=== PATIENT | male | born 1975 | race Caucasian/White ===

== ENCOUNTER 2020-06-12 11:52 | Outpatient (REF) | payer MEDICARE, MEDICAID, SELFPAY ==
[2020-06-12 13:56] LABS: MANUAL DIFF FLAG NO
[2020-06-12 14:10] LABS: Basophils Absolute Auto 0.1 X10*3/uL (0.0-0.2); Basophils Percent Auto 0.9 % (0-2); Eosinophils Absolute Auto 0.3 X10*3/uL (0.0-0.4); Eosinophils Percent Auto 4.6 % (0-4); Hematocrit 41.5 % (42-52); Hemoglobin 13.2 g/dl (14.0-18.0); Imm Gran Abs Auto 0.06 X10*3/uL (0.00-0.03); Imm Gran Pct Auto 0.9 % (0.0-0.4); Lymphocytes Absolute Auto 1.9 X10*3/uL (1.2-4.9); Mean Corpuscular HGB Conc 31.8 g/dl (31.0-36.0); Mean Corpuscular Hemoglobin 27.3 pg (27.0-33.0); Mean Corpuscular Volume 85.7 fL (80-98); Mean Platelet Volume 10.2 fL (9.4-12.4); Monocytes Absolute Auto 0.5 X10*3/uL (0.1-1.2); Monocytes Percent Auto 7.5 % (2-11); Neutrophils Absolute Auto 3.9 X10*3/uL (2.0-8.3); Neutrophils Percent Auto 58.1 % (45-73); Platelet Count 266 X10*3/uL (160-400); Red Blood Count 4.84 X10*6/uL (4.60-5.80); Red Cell Distribution Width 13.2 % (11.0-16.0); White Blood Count 6.7 X10*3/uL (4.8-10.8)
== END 2020-06-12 11:53 | disposition home or self-care (01) ==
LOC: HO.10HDL 11:52
PROVIDERS: Visit Provider Clinical Nurse Specialist Psychiatric/Mental Health, Adult
DX: Z79.899 Other long term (current) drug therapy (principal)
CPT/HCPCS: 36415; 85025

== ENCOUNTER 2020-07-11 11:03 | Outpatient (REF) | payer MEDICARE, MEDICAID, SELFPAY ==
[2020-07-11 13:56] LABS: MANUAL DIFF FLAG NO
[2020-07-11 14:03] LABS: Basophils Absolute Auto 0.1 X10*3/uL (0.0-0.2); Eosinophils Absolute Auto 0.4 X10*3/uL (0.0-0.4); Eosinophils Percent Auto 4.1 % (0-4); Hematocrit 41.4 % (42-52); Hemoglobin 13.3 g/dl (14.0-18.0); Imm Gran Abs Auto 0.03 X10*3/uL (0.00-0.03); Imm Gran Pct Auto 0.3 % (0.0-0.4); Lymphocytes Absolute Auto 1.7 X10*3/uL (1.2-4.9); Mean Corpuscular HGB Conc 32.1 g/dl (31.0-36.0); Mean Corpuscular Hemoglobin 27.5 pg (27.0-33.0); Mean Corpuscular Volume 85.7 fL (80-98); Mean Platelet Volume 10.2 fL (9.4-12.4); Monocytes Absolute Auto 0.7 X10*3/uL (0.1-1.2); Monocytes Percent Auto 7.4 % (2-11); Neutrophils Absolute Auto 6.1 X10*3/uL (2.0-8.3); Neutrophils Percent Auto 68.2 % (45-73); Platelet Count 255 X10*3/uL (160-400); Red Blood Count 4.83 X10*6/uL (4.60-5.80); Red Cell Distribution Width 13.1 % (11.0-16.0); White Blood Count 8.9 X10*3/uL (4.8-10.8)
== END 2020-07-11 11:04 | disposition home or self-care (01) ==
LOC: HO.10HDL 11:03
PROVIDERS: Visit Provider Clinical Nurse Specialist Psychiatric/Mental Health, Adult
DX: Z79.899 Other long term (current) drug therapy (principal)
CPT/HCPCS: 36415; 85025

== ENCOUNTER 2020-07-22 14:42 | Inpatient (IN) | payer MEDICARE, MEDICAID, SELFPAY ==
--- NOTE | 2020-07-22 14:51 | PC.NURSE ---
Pt arrived w/ EMS. Cooperative w/ changeover. Pt states he has been in pod in the past.
--- NOTE | 2020-07-22 14:57 | ED_ITS ---
HPI - Psych General Chief Complaint: Psychiatric Symptoms Stated Complaint: section 12 +si Time Seen by Provider: 07/22/20 14:55 Source: EMS Mode of arrival: EMS Limitations: no limitations History of Present Illness HPI Narrative: 44-year-old male with a past medical history of schizoaffective disease here with suicidal thoughts for the last week. He tells me he had attempted to hang himself last week. He has been feeling suicidal and today had a plan to re-attempt to hang himself. He called crisis and was seen in the community. A Section 12 was placed in the chart and the patient was transferred here. He denies HI. No hallucinations. No substance use. No physical complaints. He has been medication compliant MD complaint: suicidal ideation Onset (ago): week(s) (1 week ) Duration: intermittent History of same: Yes Relieving factors: none Exacerbating factors: none Associated psychiatric symptoms: depression and suicidal ideation Associated symptoms: denies other symptoms Treatments prior to arrival: placed on mental health hold Related Data Home Medications Medication Instructions Recorded Confirmed atorvastatin 1 tab PO DAILY 07/22/20 07/22/20 benztropine 1 tab PO BID 07/22/20 07/22/20 clozapine 3 tab PO BEDTIME 07/22/20 07/22/20 divalproex 250 mg PO BID 07/22/20 07/22/20 gabapentin 1 cap PO TID 07/22/20 07/22/20 gabapentin 1 tab PO TID 07/22/20 07/22/20 glipizide 1 tab PO DAILY 07/22/20 07/22/20 lancets [FreeStyle Lancets] 07/22/20 07/22/20 lorazepam 1 mg PO Q6H PRN 07/22/20 07/22/20 metformin 1 tab PO BID 07/22/20 07/22/20 metoprolol succinate 1 tab PO DAILY 07/22/20 07/22/20 trazodone 200 mg PO BEDTIME 07/22/20 07/22/20 Allergies Allergy/AdvReac Type Severity Reaction Status Date / Time oxcarbazepine Allergy Unknown RASH Unverified 05/09/20 15:39 [From TRILEPTAL] From Prolixin Allergy Intermediate AKATHESIA Uncoded 05/09/20 15:39 Review of Systems Review of Systems: Yes all other systems are reviewed and are negative Constitutional: Constitutional: Reports no additional constitutional complaints, Denies body ache(s), Denies chills, Denies fever(s), Denies headache(s) and Denies weakness Eyes: Eyes: Reports no additional eye complaints and Denies change in vision ENT: Reports system reviewed and no additional complaints, except as documented, Denies dizziness, Denies headache(s), Denies nasal congestion, Denies nasal discharge and Denies neck pain Cardiovascular: Cardiovascular: Reports no additional cardiovascular complaints, Denies chest pain, Denies leg edema and Denies dyspnea Respiratory: Respiratory: Reports no additional respiratory complaints, Denies cough and Denies dyspnea Gastrointestinal: Gastrointestinal: Reports no additional gastrointestinal complaints, Denies abdominal pain, Denies diarrhea, Denies nausea and Denies vomiting Genitourinary: Genitourinary: Denies urinary incontinence Musculoskeletal: Musculoskeletal: Reports no additional musculoskeletal complaints, Denies back pain, Denies arthralgias, Denies joint swelling, Denies neck pain, Denies numbness and Denies tingling Integumentary/Breasts: Skin/Breast: Reports system reviewed and no additional complaints, except as docu and Denies rash Neurologic: Reports system reviewed and no additional complaints, except as documented, Denies Abnormal speech present, Denies dizziness, Denies headache(s), Denies numbness, Denies tingling and Denies weakness Psychiatric: Psychiatric: Reports suicidal ideation PMFSH Past Medical History Attestation statement: The following information was validated with the patient. Source: old records reviewed and nursing notes reviewed Medical History (Updated 07/22/20 @ 16:08 by Trish Marley NP) Diabetes 1.5, managed as type 2 Social History Social History Alcohol intake: never Smoking Status: Never smoker Use of substances other than those prescribed or required for medical reasons: No Advance Directives: No Advance Directives Information Provided: Yes Physical Exam Vital Signs: Vital Signs: Last Vital Signs Temp 97.4 F 07/22/20 15:29 Pulse 120 H 07/22/20 15:29 Resp 18 07/22/20 15:29 BP 133/86 07/22/20 15:29 Pulse Ox 95 07/22/20 15:29 Body Mass Index 37.5 Const: General: cooperative, healthy appearing, comfortable and no acute distress Orientation/consciousness: patient oriented x3 Limitations: no limitations HENMT: Head: Yes normal to inspection Ears: hearing grossly normal bilaterally General nose exam: Normal external nose present Face and sinus: Yes normal facial exam Mouth: Normal oral and palatal mucosa present Throat: Yes posterior oropharynx normal Eyes: General: appearance normal, both eyes and all related structures Pupils: Equal, round and reactive pupils present Neck: Other: No ecchymosis/ligature peña Neck: Yes normal visual inspection Chest: Chest palpation & inspection: normal inspection of the chest Resp: Effort & Inspection: normal respiratory effort Auscultation: clear to auscultation bilaterally Cardio: Rate: regular rate Rhythm: regular rhythm Peripheral pulses: Peripheral pulses 2+ throughout GI: Inspection: Yes normal to inspection Palpation (GI): Soft to palpation and nontender Auscultation: normal bowel sounds Back/Spine/Pelvis: Thoracic/Lumbar Spine: thoracic and lumbar spine normal to inspection Skin: General skin exam: no rashes or lesions noted Neuro: Other: flat affect General: patient oriented x3, no focal motor deficits and normal sensation to monofilament Cranial nerves: Yes Equal, round and reactive pupils present Cognition (Neuro): normal cognition Speech: No Abnormal speech present Gait exam (Neuro): Normal gait present Motor exam (neuro): 5/5 motor strength present throughout Extrem: General: Yes normal to inspection Course Course Course Narrative: 44-year-old male here with suicidal thoughts. Attempt 1 week ago. Section 12 from the community. Patient is already a bed search. Will check labs, drug screen, COVID testing. Calm and cooperative. No concern for acute ingestion or trauma. No physical complaints. Will continue with plan of care. MDM - Psych Restraints Face to Face Assessment: Face to Face Assessment: Current Situation: After assessment of the patient, a review of the pertinent medical record and a discussion with nursing staff, I feel the patient requires a restrain intervention. Reaction To: [] Medical Condition: [] Behavioral State: [] Continued Need: [] Medical Records Attestation: I reviewed the patient's medical records. Lab Data Attestation: I reviewed the patient's lab results. Result diagrams: 07/22/20 15:09 07/22/20 15:09 Labs: Lab Results 11/30/20 11/30/20 11/30/20 Range/Units 15:01 15:07 15:08 WBC (4.8-10.8) X10*3/uL RBC (4.60-5.80) X10*6/uL Hgb (14.0-18.0) g/dl Hct (42-52) % MCV (80-98) fL MCH (27.0-33.0) pg MCHC (31.0-36.0) g/dl RDW (11.0-16.0) % Plt Count (160-400) X10*3/uL MPV (9.4-12.4) fL Immature Gran % (Auto) (0.0-0.4) % Neut % (Auto) (45-73) % Lymph % (Auto) (20-40) % [place] % (Auto) (2-11) % Eos % (Auto) (0-4) % Baso % (Auto) (0-2) % Lymph # (Auto) (1.2-4.9) X10*3/uL [place] # (Auto) (0.1-1.2) X10*3/uL Eos # (Auto) (0.0-0.4) X10*3/uL Baso # (Auto) (0.0-0.2) X10*3/uL Abs Immat Gran (auto) (0.00-0.03) X10*3/uL Absolute Neuts (auto) (2.0-8.3) X10*3/uL Absolute Nucleated RBC (0.0-0.012) X10*3/uL Nucleated RBC % (auto) (0.0-0.2) /100WBC Smear Tech's Comments Sodium (135-145) mmol/L Potassium (3.3-5.1) mmol/l Chloride (96-108) mmol/L Carbon Dioxide (22-29) mmol/L Anion Gap (12-20) BUN (9-16) mg/dL Creatinine (0.5-1.4) mg/dL Estim Creat Clear Calc Estimated GFR Random Glucose (60-115) mg/dL Calcium (8.4-10.2) mg/dL Total Bilirubin (0.0-1.0) mg/dL Direct Bilirubin (0.0-0.5) mg/dL AST (5-37) U/L ALT (0-40) U/L Alkaline Phosphatase (39-117) U/L Total Protein (6.5-8.0) g/dL Albumin (3.5-5.0) g/dL Salicylates (15-30) mg/dL Urine Opiates Screen Not Detected (Not Detect) Acetaminophen (<30) mcg/mL Ur Barbiturates Screen Not Detected (Not Detect) Ur Phencyclidine Scrn Not Detected (Not Detect) Ur Amphetamines Screen Not Detected (Not Detect) U Benzodiazepines Scrn Not Detected (Not Detect) Urine Cocaine Screen Not Detected (Not Detect) U Marijuana (THC) Screen Not Detected (Not Detect) Ethyl Alcohol < 10 mg/dL COVID-19 (LINDA) Negative (Negative) COVID-19 Clin Com See Note 07/22/20 07/22/20 Range/Units 15:09 15:09 WBC 10.4 (4.8-10.8) X10*3/uL RBC 4.70 (4.60-5.80) X10*6/uL Hgb 12.9 L (14.0-18.0) g/dl Hct 39.2 L (42-52) % MCV 83.4 (80-98) fL MCH 27.4 (27.0-33.0) pg MCHC 32.9 (31.0-36.0) g/dl RDW 12.6 (11.0-16.0) % Plt Count 202 (160-400) X10*3/uL MPV 10.7 (9.4-12.4) fL Immature Gran % (Auto) 0.3 (0.0-0.4) % Neut % (Auto) 76.1 H (45-73) % Lymph % (Auto) 14.2 L (20-40) % [place] % (Auto) 7.1 (2-11) % Eos % (Auto) 1.7 (0-4) % Baso % (Auto) 0.6 (0-2) % Lymph # (Auto) 1.5 (1.2-4.9) X10*3/uL [place] # (Auto) 0.7 (0.1-1.2) X10*3/uL Eos # (Auto) 0.2 (0.0-0.4) X10*3/uL Baso # (Auto) 0.1 (0.0-0.2) X10*3/uL Abs Immat Gran (auto) 0.03 (0.00-0.03) X10*3/uL Absolute Neuts (auto) 7.9 (2.0-8.3) X10*3/uL Absolute Nucleated RBC 0.000 (0.0-0.012) X10*3/uL Nucleated RBC % (auto) 0.0 (0.0-0.2) /100WBC Smear Tech's Comments VERIFIED Sodium 136 (135-145) mmol/L Potassium 4.3 (3.3-5.1) mmol/l Chloride 99 (96-108) mmol/L Carbon Dioxide 27 (22-29) mmol/L Anion Gap 14 (12-20) BUN 8 L (9-16) mg/dL Creatinine 1.01 (0.5-1.4) mg/dL Estim Creat Clear Calc 109.8 Estimated GFR > 60 Random Glucose 243 H (60-115) mg/dL Calcium 9.1 (8.4-10.2) mg/dL Total Bilirubin 0.4 (0.0-1.0) mg/dL Direct Bilirubin < 0.2 (0.0-0.5) mg/dL AST 12 (5-37) U/L ALT 19 (0-40) U/L Alkaline Phosphatase 115 (39-117) U/L Total Protein 6.5 (6.5-8.0) g/dL Albumin 4.5 (3.5-5.0) g/dL Salicylates < 5.0 L (15-30) mg/dL Urine Opiates Screen (Not Detect) Acetaminophen < 1 (<30) mcg/mL Ur Barbiturates Screen (Not Detect) Ur Phencyclidine Scrn (Not Detect) Ur Amphetamines Screen (Not Detect) U Benzodiazepines Scrn (Not Detect) Urine Cocaine Screen (Not Detect) U Marijuana (THC) Screen (Not Detect) Ethyl Alcohol mg/dL COVID-19 (LINDA) (Negative) COVID-19 Clin Com Discharge Plan Discharge Clinical Impression: Schizoaffective disorder, Suicidal thoughts Patient Disposition: Xfer Psychiatric Hosp Prescriptions: No Action atorvastatin 20 mg tablet 1 tab PO DAILY RF: 0 clozapine 100 mg tablet 3 tab PO BEDTIME RF: 0 gabapentin 800 mg tablet 1 tab PO TID RF: 0 trazodone 100 mg tablet 200 mg PO BEDTIME RF: 0 metformin 1,000 mg tablet 1 tab PO BID RF: 0 benztropine 1 mg tablet 1 tab PO BID RF: 0 gabapentin 100 mg capsule 1 cap PO TID RF: 0 metoprolol succinate 25 mg tablet extended release 24 hr 1 tab PO DAILY RF: 0 lorazepam 1 mg tablet 1 mg PO Q6H PRN (Reason: Anxiety) RF: 0 glipizide 5 mg tablet 1 tab PO DAILY RF: 0 divalproex 250 mg tablet extended release 24 hr 250 mg PO BID RF: 0 (DME) lancets [FreeStyle Lancets] 28 gauge misc topical DAILY RF: 0
[2020-07-22 15:16] LABS: Basophils Absolute Auto 0.1 X10*3/uL (0.0-0.2); Basophils Percent Auto 0.6 % (0-2); Hematocrit 39.2 % (42-52); MANUAL DIFF FLAG SCAN; PLT CLUMP 1; Red Cell Distribution Width 12.6 % (11.0-16.0); SCAN SMEAR FLAG 1
[2020-07-22 15:18] LABS: Eosinophils Absolute Auto 0.2 X10*3/uL (0.0-0.4); Eosinophils Percent Auto 1.7 % (0-4); Hemoglobin 12.9 g/dl (14.0-18.0); Imm Gran Abs Auto 0.03 X10*3/uL (0.00-0.03); Imm Gran Pct Auto 0.3 % (0.0-0.4); Lymphocytes Absolute Auto 1.5 X10*3/uL (1.2-4.9); Lymphocytes Percent Auto 14.2 % (20-40); Mean Corpuscular HGB Conc 32.9 g/dl (31.0-36.0); Mean Corpuscular Hemoglobin 27.4 pg (27.0-33.0); Mean Corpuscular Volume 83.4 fL (80-98); Mean Platelet Volume 10.7 fL (9.4-12.4); Monocytes Absolute Auto 0.7 X10*3/uL (0.1-1.2); Monocytes Percent Auto 7.1 % (2-11); Neutrophils Absolute Auto 7.9 X10*3/uL (2.0-8.3); Neutrophils Percent Auto 76.1 % (45-73); White Blood Count 10.4 X10*3/uL (4.8-10.8)
[2020-07-22 15:29] VITALS: BP 133/86; PULSE 120; RESP 18; TEMP 36.3; O2SAT 95; BMI 37.5
[2020-07-22 15:44] LABS: Platelet Count 202 X10*3/uL (160-400)
[2020-07-22 15:45] LABS: SLIDE REVIEW VERIFIED
[2020-07-22 15:47] LABS: COVID-19 Test Negative (Negative)
--- NOTE | 2020-07-22 15:56 | PC.NURSE ---
Pharmacy called re: med rec
[2020-07-22 15:57] LABS: Ethanol < 10 mg/dL
[2020-07-22 16:00] VITALS: RESP 18
[2020-07-22 16:02] LABS: Amphetamine Screen Urine Not Detected (Not Detect); Barbiturates, Urine Not Detected (Not Detect); Benzodiazepines Screen Urine Not Detected (Not Detect); Cannabinoid Screen Urine Not Detected (Not Detect); Cocaine Screen Urine Not Detected (Not Detect); Opiate Screen Urine Not Detected (Not Detect); Phencyclidine Screen Urine Not Detected (Not Detect)
[2020-07-22 16:12] LABS: Alanine Aminotransferase 19 U/L (0-40); Albumin Level 4.5 g/dL (3.5-5.0); Alkaline Phosphatase 115 U/L (39-117); Anion Gap 14 (12-20); Aspartate Amino Transferase 12 U/L (5-37); Bilirubin Direct < 0.2 mg/dL (0.0-0.5); Bilirubin Total 0.4 mg/dL (0.0-1.0); Blood Urea Nitrogen 8 mg/dL (9-16); Calcium 9.1 mg/dL (8.4-10.2); Carbon Dioxide 27 mmol/L (22-29); Chloride 99 mmol/L (96-108); Creatinine Clr Calc Pharmacy 109.8; Estimated Glomerular Filt Rate > 60; Glucose Random 243 mg/dL (60-115); Potassium 4.3 mmol/l (3.3-5.1); Salicylate < 5.0 mg/dL (15-30); Sodium 136 mmol/L (135-145); Total Protein 6.5 g/dL (6.5-8.0)
[2020-07-22 16:24] LABS: Acetaminophen LAB < 1 mcg/mL (<30)
[2020-07-22 17:31] LABS: Glucose, Whole Blood 121 mg/dL (60-115)
[2020-07-22] MEDS: Gabapentin 400 MG CAPSULE 800 MG PO ×2 (17:37→20:52)
[2020-07-22] MEDS: Gabapentin 100 MG CAPSULE PO ×2 (17:37→20:43)
[2020-07-22] MEDS: metFORMIN HCl 1,000 MG TABLET 1000 MG PO (17:37)
[2020-07-22 18:00] VITALS: RESP 18
[2020-07-22 19:38] VITALS: BP 134/83; PULSE 107; RESP 18; TEMP 36.2; O2SAT 97
--- NOTE | 2020-07-22 19:56 | PC.NURSE ---
Patient in bed, lying, watching TV, calm and quiet, reviewed [facility] evaluation, report says patient is being compliant with his medication verified by pharmacy and [facility] bottle caser Chitra, called [facility] and Chitra to further validate the medication compliance of the patient, no response/left voice mail. VSS. communicates needs well.
[2020-07-22] MEDS: Divalproex Sodium ER 250 MG TAB.ER.24H PO (20:43)
[2020-07-22] MEDS: Benztropine Mesylate 1 MG TABLET PO (20:43)
[2020-07-22] MEDS: traZODone HCL 100 MG TABLET 200 MG PO (20:43)
[2020-07-22] MEDS: Atorvastatin Calcium 20 MG TABLET PO (20:52)
[2020-07-22] MEDS: cloZAPine 100 MG TABLET 300 MG PO (20:52)
--- NOTE | 2020-07-22 21:29 | PC.NURSE ---
[facility] staff Sheeba called/updated that patient per report is compliant with medication.
[2020-07-22] MEDS: LORazepam 1 MG TABLET PO (21:52)
--- NOTE | 2020-07-22 21:54 | PC.NURSE ---
Patient compliant with HS PO medication, patient reported being restless/yelling at staff at time, behavioral unpredictability is high, reported hid medication doesn't work, Ativan 1 mg PRN administered, wandering in hallway, will continue to monitor.
[2020-07-22 23:47] VITALS: BP 132/78; PULSE 100; RESP 17; TEMP 37; O2SAT 95
[2020-07-23] VITALS (7 sets, daily range): BP systolic 126–142; BP diastolic 77–85; PULSE 103–109; RESP 18; TEMP 36.7–36.8; O2SAT 96
--- NOTE | 2020-07-23 06:12 | PC.NURSE ---
Patient slept through the night, no distress reported, POC 126 at 0612, patient just got out of room for bathroom use and back, appears in good mood, will continue to monitor.
[2020-07-23 06:16] LABS: Glucose, Whole Blood 136 mg/dL (60-115)
--- NOTE | 2020-07-23 07:11 | PC.NURSE ---
Report received from MISHEL Douglas. Pt resting, resp unlabored.
[2020-07-23] MEDS: Metoprolol Succinate ER 25 MG TAB.ER.24H PO (08:42)
[2020-07-23] MEDS: Gabapentin 100 MG CAPSULE PO ×3 (08:43→20:04)
[2020-07-23] MEDS: Benztropine Mesylate 1 MG TABLET PO ×2 (08:43→20:03)
[2020-07-23] MEDS: Gabapentin 400 MG CAPSULE 800 MG PO ×3 (08:43→20:03)
[2020-07-23] MEDS: Divalproex Sodium ER 250 MG TAB.ER.24H PO ×2 (08:43→20:04)
[2020-07-23] MEDS: metFORMIN HCl 1,000 MG TABLET 1000 MG PO ×2 (08:43→16:46)
[2020-07-23] MEDS: glipiZIDE 5 MG TABLET PO (08:43)
--- NOTE | 2020-07-23 08:53 | ECG_ITS ---
Test Reason : MEDCLEAR Blood Pressure : / mmHG Vent. Rate : 093 BPM Atrial Rate : 093 BPM P-R Int : 146 ms QRS Dur : 094 ms QT Int : 356 ms P-R-T Axes : 034 022 047 degrees QTc Int : 442 ms Normal sinus rhythm Normal ECG When compared with ECG of 28-JAN-2013 19:17, No significant change was found Referred By: Trish Marley Electronically Signed By:DUDLEY DAWN MD
--- NOTE | 2020-07-23 11:37 | PC.NURSE ---
Pt awakened briefly, ambulated to bathroom, affect even.
--- NOTE | 2020-07-23 14:55 | PC.NURSE ---
Report given to catina arredondo on m5
[2020-07-23 17:17] LABS: Glucose, Whole Blood 166 mg/dL (60-115)
[2020-07-23] MEDS: Atorvastatin Calcium 20 MG TABLET PO (20:04)
[2020-07-23] MEDS: traZODone HCL 100 MG TABLET 200 MG PO (20:04)
[2020-07-23] MEDS: cloZAPine 100 MG TABLET 300 MG PO (20:05)
[2020-07-24 06:10] VITALS: BP 140/74; PULSE 98; RESP 18; TEMP 36.3; O2SAT 98
[2020-07-24 06:30] LABS: Glucose, Whole Blood 156 mg/dL (60-115)
[2020-07-24] MEDS: Divalproex Sodium ER 250 MG TAB.ER.24H PO ×2 (09:02→21:36)
[2020-07-24 09:03] VITALS: BP 140/74; PULSE 98
[2020-07-24] MEDS: glipiZIDE 5 MG TABLET PO (09:03)
[2020-07-24] MEDS: metFORMIN HCl 1,000 MG TABLET 1000 MG PO ×2 (09:03→17:15)
[2020-07-24] MEDS: Metoprolol Succinate ER 25 MG TAB.ER.24H PO (09:03)
[2020-07-24] MEDS: Benztropine Mesylate 1 MG TABLET PO ×2 (09:03→21:36)
[2020-07-24] MEDS: Gabapentin 400 MG CAPSULE 800 MG PO ×3 (09:03→21:35)
[2020-07-24] MEDS: Gabapentin 100 MG CAPSULE PO ×3 (09:03→21:36)
[2020-07-24 09:58] LABS: MANUAL DIFF FLAG NO
[2020-07-24 10:03] LABS: Basophils Absolute Auto 0.1 X10*3/uL (0.0-0.2); Basophils Percent Auto 0.7 % (0-2); Eosinophils Absolute Auto 0.6 X10*3/uL (0.0-0.4); Eosinophils Percent Auto 6.7 % (0-4); Hemoglobin 14.2 g/dl (14.0-18.0); Imm Gran Abs Auto 0.03 X10*3/uL (0.00-0.03); Imm Gran Pct Auto 0.4 % (0.0-0.4); Lymphocytes Absolute Auto 2.1 X10*3/uL (1.2-4.9); Lymphocytes Percent Auto 25.1 % (20-40); Mean Corpuscular HGB Conc 32.3 g/dl (31.0-36.0); Mean Corpuscular Hemoglobin 27.5 pg (27.0-33.0); Mean Corpuscular Volume 85.3 fL (80-98); Mean Platelet Volume 9.9 fL (9.4-12.4); Monocytes Absolute Auto 0.6 X10*3/uL (0.1-1.2); Monocytes Percent Auto 6.5 % (2-11); Neutrophils Absolute Auto 5.1 X10*3/uL (2.0-8.3); Neutrophils Percent Auto 60.6 % (45-73); Platelet Count 258 X10*3/uL (160-400); Red Blood Count 5.16 X10*6/uL (4.60-5.80); Red Cell Distribution Width 12.8 % (11.0-16.0); White Blood Count 8.4 X10*3/uL (4.8-10.8)
[2020-07-24 10:29] LABS: Alanine Aminotransferase 18 U/L (0-40); Albumin Level 4.4 g/dL (3.5-5.0); Alkaline Phosphatase 134 U/L (39-117); Anion Gap 14 (12-20); Aspartate Amino Transferase 11 U/L (5-37); Bilirubin Total 0.5 mg/dL (0.0-1.0); Blood Urea Nitrogen 15 mg/dL (9-16); Calcium 9.6 mg/dL (8.4-10.2); Carbon Dioxide 31 mmol/L (22-29); Chloride 101 mmol/L (96-108); Cholesterol 117 mg/dL; Creatinine Clr Calc Pharmacy 107.7; Estimated Glomerular Filt Rate > 60; Glucose Fasting 221 mg/dL (60-99); HDL Cholesterol 26 mg/dL; LDL Cholesterol Calculated 60 mg/dl; Potassium 4.4 mmol/l (3.3-5.1); Sodium 142 mmol/L (135-145); Total Protein 6.6 g/dL (6.5-8.0); Triglycerides 159 mg/dL
[2020-07-24 10:43] LABS: Estimated Average Glucose 180 mg/dL; Hemoglobin A1c % 7.9 %
[2020-07-24] MEDS: Flu Vacc QS2020-21(6mos up)/PF 0.5 ML SYRINGE IM (14:48)
[2020-07-24 17:27] VITALS: BP 107/56; PULSE 108; RESP 16; TEMP 36.6; O2SAT 99
[2020-07-24] MEDS: Atorvastatin Calcium 20 MG TABLET PO (21:36)
[2020-07-24] MEDS: cloZAPine 100 MG TABLET 300 MG PO (21:36)
[2020-07-24 21:44] LABS: Glucose, Whole Blood 170 mg/dL (60-115)
--- NOTE | 2020-07-24 22:54 | P.HPPS_ITS ---
HPI Chief Complaint: Schizoaffective DX Sources of Information: patient interviewed, chart reviewed and crisis/core team assessment reviewed HPI Narrative: The patient is a 44-year-old male admitted with increasing depression anxiety thoughts of self-harm. Who with recently had thoughts to hang himself. More has been more depressed with his mother who has had worsening Alzheimer's. He had been relatively stable for number of years has been on clozapine patient sees Chris TURNER RN. Patient reports feeling increasingly restless agitated the patient was referred through the crisis team after being evaluated he Past Psychiatric History: history of recurrence psychiatric hospitalizations with psychosis and depression history of multiple psychiatric hospitalizations Medical Evaluation Reviewed: Yes [facility] Medical History (Updated 07/22/20 @ 16:08 by Trish Marley NP) Diabetes 1.5, managed as type 2 Family History: mother with dementia Social History: patient was raised by his parents his father is his mother is in half-way he is single no children he is not employed never Substance History: none Trauma History: no trauma history Diagnostics Vital Signs (24Hr): Vital Signs - 24 hr 07/24/20 06:10 07/24/20 09:03 07/24/20 17:27 Temperature 97.3 F 97.9 F Pulse Rate 98 98 108 H Respiratory Rate 18 16 Blood Pressure 140/74 H 140/74 H 107/56 L Pulse Oximetry 98 99 Body Mass Index 37.5 Labs Results: 07/24/20 09:41 07/24/20 09:41 Labs: Laboratory Results - last 48 hr 07/23/20 07/23/20 07/24/20 06:10 16:43 06:14 WBC RBC Hgb Hct MCV MCH MCHC RDW Plt Count MPV Immature Gran % (Auto) Neut % (Auto) Lymph % (Auto) [place] % (Auto) Eos % (Auto) Baso % (Auto) Lymph # (Auto) [place] # (Auto) Eos # (Auto) Baso # (Auto) Abs Immat Gran (auto) Absolute Neuts (auto) Absolute Nucleated RBC Nucleated RBC % (auto) Sodium Potassium Chloride Carbon Dioxide Anion Gap BUN Creatinine Estim Creat Clear Calc Estimated GFR POC Glucose 136 H 166 H 156 H Fasting Glucose Estimat Average Glucose Hemoglobin A1c % Calcium Total Bilirubin AST ALT Alkaline Phosphatase Total Protein Albumin Triglycerides Cholesterol LDL Cholesterol, Calc HDL Cholesterol 07/24/20 07/24/2020 09:41 09:41 09:41 WBC 8.4 RBC 5.16 Hgb 14.2 Hct 44.0 MCV 85.3 MCH 27.5 MCHC 32.3 RDW 12.8 Plt Count 258 D MPV 9.9 Immature Gran % (Auto) 0.4 Neut % (Auto) 60.6 Lymph % (Auto) 25.1 [place] % (Auto) 6.5 Eos % (Auto) 6.7 H Baso % (Auto) 0.7 Lymph # (Auto) 2.1 Christian # (Auto) 0.6 Eos # (Auto) 0.6 H Baso # (Auto) 0.1 Abs Immat Gran (auto) 0.03 Absolute Neuts (auto) 5.1 Absolute Nucleated RBC 0.000 Nucleated RBC % (auto) 0.0 Sodium 142 Potassium 4.4 Chloride 101 Carbon Dioxide 31 H Anion Gap 14 BUN 15 D Creatinine 1.03 Estim Creat Clear Calc 107.7 Estimated GFR > 60 POC Glucose Fasting Glucose 221 H Estimat Average Glucose 180 Hemoglobin A1c % 7.9 Calcium 9.6 Total Bilirubin 0.5 AST 11 ALT 18 Alkaline Phosphatase 134 H Total Protein 6.6 Albumin 4.4 Triglycerides 159 Cholesterol 117 LDL Cholesterol, Calc 60 HDL Cholesterol 26 07/24/20 21:39 WBC RBC Hgb Hct MCV MCH MCHC RDW Plt Count MPV Immature Gran % (Auto) Neut % (Auto) Lymph % (Auto) [place] % (Auto) Eos % (Auto) Baso % (Auto) Lymph # (Auto) Christian # (Auto) Eos # (Auto) Baso # (Auto) Abs Immat Gran (auto) Absolute Neuts (auto) Absolute Nucleated RBC Nucleated RBC % (auto) Sodium Potassium Chloride Carbon Dioxide Anion Gap BUN Creatinine Estim Creat Clear Calc Estimated GFR POC Glucose 170 H Fasting Glucose Estimat Average Glucose Hemoglobin A1c % Calcium Total Bilirubin AST ALT Alkaline Phosphatase Total Protein Albumin Triglycerides Cholesterol LDL Cholesterol, Calc HDL Cholesterol Meds/Allergies Meds Home Medications Acetaminophen (Acetaminophen 325 Mg Tablet) 650 mg PO Q6H PRN PRN Reason: Headache/Pain Mild Scale (1-3) Al Hydroxide/Mg Hydroxide (Magnesium Hydrox/Alum Hydrox 30 Ml Oral.Susp) 30 ml PO Q6H PRN PRN Reason: Heartburn/Nausea Atorvastatin Calcium (Atorvastatin Calcium 20 Mg Tablet) 20 mg PO BEDTIME LAUREN Last Admin: 07/24/20 21:36 Dose: 20 mg Documented by: Benztropine Mesylate (Benztropine Mesylate 1 Mg Tablet) 1 mg PO BID [facility] Last Admin: 07/24/20 21:36 Dose: 1 mg Documented by: Clozapine (Clozapine 100 Mg Tablet) 300 mg PO BEDTIME [facility] Last Admin: 07/24/20 21:36 Dose: 300 mg Documented by: Divalproex Sodium (Divalproex Sodium Er 250 Mg Tab.Er.24h) 250 mg PO BID [facility] Last Admin: 07/24/20 21:36 Dose: 250 mg Documented by: Gabapentin (Gabapentin 100 Mg Capsule) 100 mg PO TID [facility] Last Admin: 07/24/20 21:36 Dose: 100 mg Documented by: Gabapentin (Gabapentin 400 Mg Capsule) 800 mg PO TID [facility] Last Admin: 07/24/20 21:35 Dose: 800 mg Documented by: Glipizide (Glipizide 5 Mg Tablet) 5 mg PO DAILY [facility] Last Admin: 07/24/20 09:03 Dose: 5 mg Documented by: Hydroxyzine HCl (Hydroxyzine Hcl 25 Mg Tablet) 25 mg PO BEDTIME PRN PRN Reason: Anxiety Lorazepam (Lorazepam 1 Mg Tablet) 1 mg PO Q6H PRN PRN Reason: Anxiety Last Admin: 07/22/20 21:52 Dose: 1 mg Documented by: Magnesium Hydroxide (Milk Of Magnesia 30 Ml Oral.Susp) 30 ml PO DAILY PRN PRN Reason: Constipation Metformin HCl (Metformin Hcl 1,000 Mg Tablet) 1,000 mg PO BIDWM [facility] Last Admin: 07/24/20 17:15 Dose: 1,000 mg Documented by: Metoprolol Succinate (Metoprolol Succinate Er 25 Mg Tab.Er.24h) 25 mg PO DAILY [facility]; Protocol Last Admin: 07/24/20 09:03 Dose: 25 mg Documented by: Trazodone HCl (Trazodone Hcl 100 Mg Tablet) 200 mg PO BEDTIME [facility] Last Admin: 07/24/20 22:46 Dose: Not Given Documented by: Allergies Allergies Allergy/AdvReac Type Severity Reaction Status Date / Time haloperidol [From Haldol] Allergy Intermediate Agitated Verified 07/22/20 18:01 lithium Allergy Intermediate Agitated Verified 07/22/20 18:01 oxcarbazepine Allergy Unknown RASH Verified 07/22/20 17:58 [From TRILEPTAL] From Prolixin Allergy Intermediate AKATHESIA Uncoded 07/22/20 17:58 Mental Status Exam Mental Status Exam Patient Orientation: Person, Place, Time and Situation Level of Consciousness: Awake Patient Behavior: Guarded, Anxious, Fearful, Avoidant and Distractible Mood Description: Depressed, Anxious and Sad Affect Description: Depressed and Anxious Speech Pattern: Impoverished and Monotone Hallucinations: None and Auditory Thought Process: Rumination Thought Content: positive for Preoccupation, positive for Slowed Thinking, positive for Suicidal Ideation and negative for Homicidal Ideation Depressive Symptoms: Increased Anxiety and Insomnia Assessment & Plan Assessment & Plan (1) Schizoaffective disorder: Status: Acute Code(s): F25.9 - Schizoaffective disorder, unspecified (2) Suicidal thoughts: Status: Acute Code(s): R45.851 - Suicidal ideations Assessment and Plan: monitor safety denies si coordinate with chris garnica ? jeffery nunez ? lamictal Patient educated on: diagnosis, medication risk/benefits and therapeutic strategies Informed Consent: further education needed Reason for continued inpatient stay Substantial Risk for: harm to self
[2020-07-25 06:11] LABS: Glucose, Whole Blood 137 mg/dL (60-115)
[2020-07-25 06:37] VITALS: BP 115/60; PULSE 98; RESP 16; TEMP 36.4; O2SAT 96
[2020-07-25 08:50] VITALS: BP 115/60; PULSE 98
[2020-07-25] MEDS: Metoprolol Succinate ER 25 MG TAB.ER.24H PO (08:50)
[2020-07-25] MEDS: Gabapentin 400 MG CAPSULE 800 MG PO ×3 (08:50→23:03)
[2020-07-25] MEDS: Gabapentin 100 MG CAPSULE PO ×3 (08:50→23:04)
[2020-07-25] MEDS: Benztropine Mesylate 1 MG TABLET PO ×2 (08:50→23:03)
[2020-07-25] MEDS: glipiZIDE 5 MG TABLET PO (08:50)
[2020-07-25] MEDS: Divalproex Sodium ER 250 MG TAB.ER.24H PO (08:51)
[2020-07-25] MEDS: metFORMIN HCl 1,000 MG TABLET 1000 MG PO ×2 (08:51→17:29)
[2020-07-25] MEDS: LORazepam 1 MG TABLET PO (16:00)
[2020-07-25 17:12] LABS: Glucose, Whole Blood 192 mg/dL (60-115)
[2020-07-25 18:55] VITALS: BP 120/73; PULSE 110; TEMP 36.3
[2020-07-25] MEDS: traZODone HCL 100 MG TABLET 200 MG PO (23:02)
[2020-07-25] MEDS: cloZAPine 100 MG TABLET 300 MG PO (23:02)
[2020-07-25] MEDS: Atorvastatin Calcium 20 MG TABLET PO (23:04)
[2020-07-25] MEDS: Divalproex Sodium ER 500 MG TAB.ER.24H PO (23:05)
--- NOTE | 2020-07-25 23:56 | P.PNPSI_ITS ---
Subjective Subjective Date of Service: 07/25/20 Reason For Visit: Schizoaffective DX Subjective Notes: Conditional Voluntary Interim History: patient somewhat isolative anxious dysphoric difficulty verbalizing his feeling states she denies active SI Medication Compliance: Yes Attending Groups: Intermittent Review of Systems Constitutional: Denies headache(s) and Denies weakness Denies dizziness and Denies headache(s) Musculoskeletal: Denies numbness and Denies tingling Reports system reviewed and no additional complaints, except as documented, D enies Abnormal speech present, Denies dizziness, Denies headache(s), Denies numbness, Denies tingling and Denies weakness Mental Status Exam Mental Status Exam Patient Orientation: Person, Place, Time and Situation Level of Consciousness: Awake Patient Behavior: Guarded, Anxious, Fearful, Avoidant and Distractible Mood Description: Depressed, Anxious and Sad Affect Description: Depressed and Anxious Speech Pattern: Impoverished and Monotone Hallucinations: None and Auditory Thought Process: Rumination Thought Content: positive for Preoccupation, positive for Slowed Thinking, positive for Suicidal Ideation and negative for Homicidal Ideation Depressive Symptoms: Increased Anxiety and Insomnia Diagnostics Vital Signs (24Hr): Vital Signs - 24 hr 07/25/20 06:37 07/25/20 08:50 07/25/20 18:55 Temperature 97.5 F 97.4 F Pulse Rate 98 98 110 H Respiratory Rate 16 Blood Pressure 115/60 115/60 120/73 Pulse Oximetry 96 Body Mass Index 37.5 Labs Results: 07/24/20 09:41 07/24/20 09:41 Labs: Laboratory Results - last 48 hr 07/24/20 07/24/20 07/24/20 06:14 09:41 09:41 WBC 8.4 RBC 5.16 Hgb 14.2 Hct 44.0 MCV 85.3 MCH 27.5 MCHC 32.3 RDW 12.8 Plt Count 258 D MPV 9.9 Immature Gran % (Auto) 0.4 Neut % (Auto) 60.6 Lymph % (Auto) 25.1 Kane % (Auto) 6.5 Eos % (Auto) 6.7 H Baso % (Auto) 0.7 Lymph # (Auto) 2.1 Kane # (Auto) 0.6 Eos # (Auto) 0.6 H Baso # (Auto) 0.1 Abs Immat Gran (auto) 0.03 Absolute Neuts (auto) 5.1 Absolute Nucleated RBC 0.000 Nucleated RBC % (auto) 0.0 Sodium 142 Potassium 4.4 Chloride 101 Carbon Dioxide 31 H Anion Gap 14 BUN 15 D Creatinine 1.03 Estim Creat Clear Calc 107.7 Estimated GFR > 60 POC Glucose 156 H Fasting Glucose 221 H Estimat Average Glucose Hemoglobin A1c % Calcium 9.6 Total Bilirubin 0.5 AST 11 ALT 18 Alkaline Phosphatase 134 H Total Protein 6.6 Albumin 4.4 Triglycerides 159 Cholesterol 117 LDL Cholesterol, Calc 60 HDL Cholesterol 26 07/24/20 07/24/20 07/25/20 09:41 21:39 06:06 WBC RBC Hgb Hct MCV MCH MCHC RDW Plt Count MPV Immature Gran % (Auto) Neut % (Auto) Lymph % (Auto) Kane % (Auto) Eos % (Auto) Baso % (Auto) Lymph # (Auto) Kane # (Auto) Eos # (Auto) Baso # (Auto) Abs Immat Gran (auto) Absolute Neuts (auto) Absolute Nucleated RBC Nucleated RBC % (auto) Sodium Potassium Chloride Carbon Dioxide Anion Gap BUN Creatinine Estim Creat Clear Calc Estimated GFR POC Glucose 170 H 137 H Fasting Glucose Estimat Average Glucose 180 Hemoglobin A1c % 7.9 Calcium Total Bilirubin AST ALT Alkaline Phosphatase Total Protein Albumin Triglycerides Cholesterol LDL Cholesterol, Calc HDL Cholesterol 07/25/20 16:58 WBC RBC Hgb Hct MCV MCH MCHC RDW Plt Count MPV Immature Gran % (Auto) Neut % (Auto) Lymph % (Auto) Kane % (Auto) Eos % (Auto) Baso % (Auto) Lymph # (Auto) Kane # (Auto) Eos # (Auto) Baso # (Auto) Abs Immat Gran (auto) Absolute Neuts (auto) Absolute Nucleated RBC Nucleated RBC % (auto) Sodium Potassium Chloride Carbon Dioxide Anion Gap BUN Creatinine Estim Creat Clear Calc Estimated GFR POC Glucose 192 H Fasting Glucose Estimat Average Glucose Hemoglobin A1c % Calcium Total Bilirubin AST ALT Alkaline Phosphatase Total Protein Albumin Triglycerides Cholesterol LDL Cholesterol, Calc HDL Cholesterol Medications Medications Current Medications Generic Name Dose Route Start Last Admin Trade Name Freq PRN Reason Stop Dose Admin Acetaminophen 650 mg 07/23/20 16:06 Acetaminophen 325 Mg Tablet PO Q6H PRN Headache/Pain Mild Scale (1-3) Al Hydroxide/Mg Hydroxide 30 ml 07/23/20 16:06 Magnesium Hydrox/Alum Hydrox 30 Ml Oral.Susp PO Q6H PRN Heartburn/Nausea Atorvastatin Calcium 20 mg 07/22/20 21:00 07/25/20 23:04 Atorvastatin Calcium 20 Mg Tablet PO 20 mg BEDTIME LAUREN Administration Benztropine Mesylate 1 mg 07/22/20 21:00 07/25/20 23:03 Benztropine Mesylate 1 Mg Tablet PO 1 mg BID LAUREN Administration Clozapine 300 mg 07/22/20 21:00 07/25/20 23:02 Clozapine 100 Mg Tablet PO 300 mg BEDTIME LAUREN Administration Divalproex Sodium 500 mg 07/25/20 21:00 07/25/20 23:05 Divalproex Sodium Er 500 Mg Tab.Er.24h PO 500 mg BID LAUREN Administration Gabapentin 100 mg 07/22/20 16:45 07/25/20 23:04 Gabapentin 100 Mg Capsule PO 100 mg TID LAUREN Administration Gabapentin 800 mg 07/22/20 16:45 07/25/20 23:03 Gabapentin 400 Mg Capsule PO 800 mg TID LAUREN Administration Glipizide 5 mg 07/22/20 16:45 07/25/20 08:50 Glipizide 5 Mg Tablet PO 5 mg DAILY LAUREN Administration Hydroxyzine HCl 25 mg 07/23/20 16:06 Hydroxyzine Hcl 25 Mg Tablet PO BEDTIME PRN Anxiety Lorazepam 1 mg 07/22/20 16:35 07/25/20 16:00 Lorazepam 1 Mg Tablet PO 1 mg Q6H PRN Administration Anxiety Magnesium Hydroxide 30 ml 07/23/20 16:06 Milk Of Magnesia 30 Ml Oral.Susp PO DAILY PRN Constipation Metformin HCl 1,000 mg 07/22/20 17:00 07/25/20 17:29 Metformin Hcl 1,000 Mg Tablet PO 1,000 mg BIDWM LAUREN Administration Metoprolol Succinate 25 mg 07/22/20 16:45 07/25/20 08:50 Metoprolol Succinate Er 25 Mg Tab.Er.24h PO 25 mg DAILY LAUREN Administration Protocol Trazodone HCl 200 mg 07/22/20 21:00 07/25/20 23:02 Trazodone Hcl 100 Mg Tablet PO 200 mg BEDTIME LAUREN Administration Allergies Allergies Allergy/AdvReac Type Severity Reaction Status Date / Time haloperidol [From Haldol] Allergy Intermediate Agitated Verified 07/22/20 18:01 lithium Allergy Intermediate Agitated Verified 11/30/20 18:01 oxcarbazepine Allergy Unknown RASH Verified 07/22/20 17:58 [From TRILEPTAL] From Prolixin Allergy Intermediate AKATHESIA Uncoded 07/22/20 17:58 Assessment & Plan Assessment & Plan (1) Schizoaffective disorder: Status: Acute Code(s): F25.9 - Schizoaffective disorder, unspecified (2) Suicidal thoughts: Status: Acute Code(s): R45.851 - Suicidal ideations Assessment and Plan: continue current treatment plan monitor for suicidal plan or intent. Monitor response to increase Depakote case reviewed with the patient's nurse practitioner would benefit from input from patient's therapist at [facility] [place] Greater than 50% of the session was spent on counseling and/or coordination of care
[2020-07-26 06:19] LABS: Glucose, Whole Blood 163 mg/dL (60-115)
[2020-07-26 06:20] VITALS: BP 107/55; PULSE 85; RESP 16; TEMP 36.2; O2SAT 97
[2020-07-26] MEDS: metFORMIN HCl 1,000 MG TABLET 1000 MG PO ×2 (09:09→17:50)
[2020-07-26] MEDS: glipiZIDE 5 MG TABLET PO (09:09)
[2020-07-26] MEDS: Divalproex Sodium ER 500 MG TAB.ER.24H PO ×2 (09:09→22:00)
[2020-07-26] MEDS: Gabapentin 100 MG CAPSULE PO ×3 (09:09→22:00)
[2020-07-26 09:10] VITALS: BP 107/64; PULSE 85
[2020-07-26] MEDS: Metoprolol Succinate ER 25 MG TAB.ER.24H PO (09:10)
[2020-07-26] MEDS: Gabapentin 400 MG CAPSULE 800 MG PO ×3 (09:10→22:00)
[2020-07-26] MEDS: Benztropine Mesylate 1 MG TABLET PO ×2 (09:10→22:00)
--- NOTE | 2020-07-26 16:05 | HO.PSYCHPN ---
Subjective Subjective Date of Service: 07/27/20 Reason For Visit: Schizoaffective DX Interim History: patient somewhat isolative anxious dysphoric difficulty verbalizing his feeling states. [place] affect. Acknowledges feeling depressed with SI (francesca alone at home)Remains at risk of self harm. Review of Systems Constitutional: Denies headache(s) and Denies weakness Denies dizziness and Denies headache(s) Musculoskeletal: Denies numbness and Denies tingling Reports system reviewed and no additional complaints, except as documented, Denies Abnormal speech present, Denies dizziness, Denies headache(s), Denies numbness, Denies tingling and Denies weakness Mental Status Exam Mental Status Exam Patient Orientation: Person, Place, Time and Situation Level of Consciousness: Awake Patient Behavior: Guarded, Anxious, Fearful, Avoidant and Distractible Mood Description: Depressed, Anxious and Sad Affect Description: Depressed and Anxious Speech Pattern: Impoverished and Monotone Diagnostics Vital Signs (24Hr): Vital Signs - 24 hr 07/25/20 18:55 07/26/20 06:20 07/26/20 09:10 Temperature 97.4 F 97.2 F Pulse Rate 110 H 85 85 Respiratory Rate 16 Blood Pressure 120/73 107/55 L 107/64 Pulse Oximetry 97 Body Mass Index 37.5 Labs Results: 07/24/20 09:41 07/24/20 09:41 Labs: Laboratory Results - last 48 hr 07/24/20 07/25/20 07/25/20 21:39 06:06 16:58 POC Glucose 170 H 137 H 192 H 07/26/20 06:12 POC Glucose 163 H Medications Medications Current Medications Generic Name Dose Route Start Last Admin Trade Name Treyq PRN Reason Stop Dose Admin Acetaminophen 650 mg 07/23/20 16:06 Acetaminophen 325 Mg Tablet PO Q6H PRN Headache/Pain Mild Scale (1-3) Al Hydroxide/Mg Hydroxide 30 ml 07/23/20 16:06 Magnesium Hydrox/Alum Hydrox 30 Ml Oral.Susp PO Q6H PRN Heartburn/Nausea Atorvastatin Calcium 20 mg 07/22/20 21:00 07/25/20 23:04 Atorvastatin Calcium 20 Mg Tablet PO 20 mg BEDTIME LAUREN Administration Benztropine Mesylate 1 mg 07/22/20 21:00 07/26/20 09:10 Benztropine Mesylate 1 Mg Tablet PO 1 mg BID LAUREN Administration Clozapine 300 mg 07/22/20 21:00 07/25/20 23:02 Clozapine 100 Mg Tablet PO 300 mg BEDTIME LAUREN Administration Divalproex Sodium 500 mg 07/25/20 21:00 07/26/20 09:09 Divalproex Sodium Er 500 Mg Tab.Er.24h PO 500 mg BID LAUREN Administration Gabapentin 100 mg 07/22/20 16:45 07/26/20 15:00 Gabapentin 100 Mg Capsule PO 100 mg TID LAUREN Administration Gabapentin 800 mg 07/22/20 16:45 07/26/20 15:00 Gabapentin 400 Mg Capsule PO 800 mg TID LAUREN Administration Glipizide 5 mg 07/22/20 16:45 07/26/20 09:09 Glipizide 5 Mg Tablet PO 5 mg DAILY LAUREN Administration Hydroxyzine HCl 25 mg 07/23/20 16:06 Hydroxyzine Hcl 25 Mg Tablet PO BEDTIME PRN Anxiety Lorazepam 1 mg 07/22/20 16:35 07/25/20 16:00 Lorazepam 1 Mg Tablet PO 1 mg Q6H PRN Administration Anxiety Lorazepam 1 mg 07/26/20 21:00 Lorazepam 1 Mg Tablet PO BEDTIME LAUREN Magnesium Hydroxide 30 ml 07/23/20 16:06 Milk Of Magnesia 30 Ml Oral.Susp PO DAILY PRN Constipation Metformin HCl 1,000 mg 07/22/20 17:00 07/26/20 09:09 Metformin Hcl 1,000 Mg Tablet PO 1,000 mg BIDWM LAUREN Administration Metoprolol Succinate 25 mg 07/22/20 16:45 07/26/20 09:10 Metoprolol Succinate Er 25 Mg Tab.Er.24h PO 25 mg DAILY LAUREN Administration Protocol Trazodone HCl 200 mg 07/22/20 21:00 07/25/20 23:02 Trazodone Hcl 100 Mg Tablet PO 200 mg BEDTIME LAUREN Administration Allergies Allergies Allergy/AdvReac Type Severity Reaction Status Date / Time haloperidol [From Haldol] Allergy Intermediate Agitated Verified 07/22/20 18:01 lithium Allergy Intermediate Agitated Verified 07/22/20 18:01 oxcarbazepine Allergy Unknown RASH Verified 07/22/20 17:58 [From TRILEPTAL] From Prolixin Allergy Intermediate AKATHESIA Uncoded 07/22/20 17:58 Assessment & Plan Assessment & Plan (1) Schizoaffective disorder: Status: Acute Code(s): F25.9 - Schizoaffective disorder, unspecified (2) Suicidal thoughts: Status: Acute Code(s): R45.851 - Suicidal ideations Assessment and Plan: continue current treatment plan monitor for suicidal plan or intent. Monitor response to increase Depakote case reviewed with the patient's nurse practitioner would benefit from input from patient's therapist at [facility] Greater than 50% of the session was spent on counseling and/or coordination of care
[2020-07-26 16:08] LABS: Glucose, Whole Blood 169 mg/dL (60-115)
[2020-07-26 18:00] VITALS: BP 123/66; PULSE 107; TEMP 36.4
[2020-07-26] MEDS: Atorvastatin Calcium 20 MG TABLET PO (22:00)
[2020-07-26] MEDS: cloZAPine 100 MG TABLET 300 MG PO (22:00)
[2020-07-26] MEDS: traZODone HCL 100 MG TABLET 200 MG PO (22:00)
[2020-07-26] MEDS: LORazepam 1 MG TABLET PO (22:00)
[2020-07-27 06:00] VITALS: BP 117/65; PULSE 91; TEMP 36.2
[2020-07-27 06:37] LABS: Glucose, Whole Blood 168 mg/dL (60-115)
[2020-07-27] MEDS: Gabapentin 400 MG CAPSULE 800 MG PO ×3 (09:00→22:43)
[2020-07-27] MEDS: metFORMIN HCl 1,000 MG TABLET 1000 MG PO ×2 (09:00→17:02)
[2020-07-27 09:01] VITALS: BP 123/66; PULSE 107
[2020-07-27] MEDS: Benztropine Mesylate 1 MG TABLET PO ×2 (09:01→22:43)
[2020-07-27] MEDS: Divalproex Sodium ER 500 MG TAB.ER.24H PO ×2 (09:01→22:42)
[2020-07-27] MEDS: Metoprolol Succinate ER 25 MG TAB.ER.24H PO (09:01)
[2020-07-27] MEDS: Gabapentin 100 MG CAPSULE PO ×3 (09:01→22:44)
[2020-07-27] MEDS: glipiZIDE 5 MG TABLET PO (09:02)
--- NOTE | 2020-07-27 11:04 | HO.PSYCHPN ---
Subjective Subjective Date of Service: 07/27/20 Reason For Visit: Schizoaffective DX Subjective Notes: Conditional Voluntary Interim History: Pt reports he is doing ok - sleep has been moderate not great not bad denies current si/hi/psychosis Medication Compliance: Yes Side effects from medications: No Attending Groups: Yes Review of Systems Acute medical concerns: No Medical Review of Systems: unchanged Review of Systems Constitutional: Denies headache(s) and Denies weakness Denies dizziness and Denies headache(s) Musculoskeletal: Denies numbness and Denies tingling Reports system reviewed and no additional complaints, except as documented, Denies Abnormal speech present, Denies dizziness, Denies headache(s), Denies numbness, Denies tingling and Denies weakness Mental Status Exam Mental Status Exam Patient Appearance: Disheveled Patient Orientation: Person, Place, Time and Situation Level of Consciousness: Awake Patient Behavior: Appropriate Mood Description: Anxious Affect Description: Blunted Patient Cognition Impaired: No Ability to Follow Directions: Good Speech Pattern: Rambling and Mumbled Thought Process: Distracted Thought Content: positive for [place] and positive for Goal Oriented Depressive Symptoms: Diff. Making Decisions Judgement: Fair Diagnostics Vital Signs (24Hr): Vital Signs - 24 hr 07/26/20 18:00 07/27/20 09:01 Temperature 97.6 F Pulse Rate 107 H 107 H Blood Pressure 123/66 123/66 Body Mass Index 37.5 Labs Results: 07/24/20 09:41 07/24/20 09:41 Labs: Laboratory Results - last 48 hr 07/25/20 07/26/20 07/26/20 16:58 06:12 16:02 POC Glucose 192 H 163 H 169 H 07/27/20 06:33 POC Glucose 168 H Medications Medications Current Medications Generic Name Dose Route Start Last Admin Trade Name Freq PRN Reason Stop Dose Admin Acetaminophen 650 mg 07/23/20 16:06 Acetaminophen 325 Mg Tablet PO Q6H PRN Headache/Pain Mild Scale (1-3) Al Hydroxide/Mg Hydroxide 30 ml 07/23/20 16:06 Magnesium Hydrox/Alum Hydrox 30 Ml Oral.Susp PO Q6H PRN Heartburn/Nausea Atorvastatin Calcium 20 mg 07/22/20 21:00 07/26/20 22:00 Atorvastatin Calcium 20 Mg Tablet PO 20 mg BEDTIME LAUREN Administration Benztropine Mesylate 1 mg 07/22/20 21:00 07/27/20 09:01 Benztropine Mesylate 1 Mg Tablet PO 1 mg BID LAUREN Administration Clozapine 300 mg 07/22/20 21:00 07/26/20 22:00 Clozapine 100 Mg Tablet PO 300 mg BEDTIME LAUREN Administration Divalproex Sodium 500 mg 07/25/20 21:00 07/27/20 09:01 Divalproex Sodium Er 500 Mg Tab.Er.24h PO 500 mg BID LAUREN Administration Gabapentin 100 mg 07/22/20 16:45 07/27/20 09:01 Gabapentin 100 Mg Capsule PO 100 mg TID LAUREN Administration Gabapentin 800 mg 07/22/20 16:45 07/27/20 09:00 Gabapentin 400 Mg Capsule PO 800 mg TID LAUREN Administration Glipizide 5 mg 07/22/20 16:45 07/27/20 09:02 Glipizide 5 Mg Tablet PO 5 mg DAILY LAUREN Administration Hydroxyzine HCl 25 mg 07/23/20 16:06 Hydroxyzine Hcl 25 Mg Tablet PO BEDTIME PRN Anxiety Lorazepam 1 mg 07/22/20 16:35 07/25/20 16:00 Lorazepam 1 Mg Tablet PO 1 mg Q6H PRN Administration Anxiety Lorazepam 1 mg 07/26/20 21:00 07/26/20 22:00 Lorazepam 1 Mg Tablet PO 1 mg BEDTIME LAUREN Administration Magnesium Hydroxide 30 ml 07/23/20 16:06 Milk Of Magnesia 30 Ml Oral.Susp PO DAILY PRN Constipation Metformin HCl 1,000 mg 07/22/20 17:00 07/27/20 09:00 Metformin Hcl 1,000 Mg Tablet PO 1,000 mg BIDWM LAUREN Administration Metoprolol Succinate 25 mg 07/22/20 16:45 07/27/20 09:01 Metoprolol Succinate Er 25 Mg Tab.Er.24h PO 25 mg DAILY LAUREN Administration Protocol Trazodone HCl 200 mg 07/22/20 21:00 07/26/20 22:00 Trazodone Hcl 100 Mg Tablet PO 200 mg BEDTIME LAUREN Administration Allergies Allergies Allergy/AdvReac Type Severity Reaction Status Date / Time haloperidol [From Haldol] Allergy Intermediate Agitated Verified 07/22/20 18:01 lithium Allergy Intermediate Agitated Verified 07/22/20 18:01 oxcarbazepine Allergy Unknown RASH Verified 07/22/20 17:58 [From TRILEPTAL] From Prolixin Allergy Intermediate AKATHESIA Uncoded 07/22/20 17:58 Assessment & Plan Assessment & Plan (1) Schizoaffective disorder: Status: Acute Code(s): F25.9 - Schizoaffective disorder, unspecified Assessment and Plan: tolerating recent medicaation changes Greater than 50% of the session was spent on counseling and/or coordination of care
[2020-07-27 16:44] VITALS: BP 129/79; PULSE 101; TEMP 36.4; O2SAT 97
[2020-07-27 17:03] LABS: Glucose, Whole Blood 288 mg/dL (60-115)
[2020-07-27] MEDS: traZODone HCL 100 MG TABLET 200 MG PO (22:42)
[2020-07-27] MEDS: LORazepam 1 MG TABLET PO (22:43)
[2020-07-27] MEDS: cloZAPine 100 MG TABLET 300 MG PO (22:43)
[2020-07-27] MEDS: Atorvastatin Calcium 20 MG TABLET PO (22:43)
[2020-07-28 06:00] VITALS: BP 133/72; PULSE 99; TEMP 35.9
[2020-07-28 06:23] LABS: Glucose, Whole Blood 153 mg/dL (60-115)
[2020-07-28] MEDS: metFORMIN HCl 1,000 MG TABLET 1000 MG PO ×2 (08:24→16:56)
[2020-07-28] MEDS: Divalproex Sodium ER 500 MG TAB.ER.24H PO ×2 (08:25→22:36)
[2020-07-28] MEDS: Gabapentin 400 MG CAPSULE 800 MG PO ×3 (08:25→22:35)
[2020-07-28] MEDS: Benztropine Mesylate 1 MG TABLET PO ×2 (08:25→22:35)
[2020-07-28] MEDS: Gabapentin 100 MG CAPSULE PO ×3 (08:25→22:35)
[2020-07-28] MEDS: glipiZIDE 5 MG TABLET PO (08:25)
[2020-07-28 08:26] VITALS: BP 133/72; PULSE 99
[2020-07-28] MEDS: Metoprolol Succinate ER 25 MG TAB.ER.24H PO (08:26)
--- NOTE | 2020-07-28 14:40 | HO.PSYCHPN ---
Subjective Subjective Date of Service: 07/28/20 Reason For Visit: Schizoaffective DX Subjective Notes: Conditional Voluntary Interim History: Reports moderate trouble sleeping he feels a bit down- denies si - spending time in bed in his room Medication Compliance: Yes Side effects from medications: No Attending Groups: Intermittent Review of Systems Acute medical concerns: No Medical Review of Systems: unchanged Review of Systems Constitutional: Denies headache(s) and Denies weakness Denies dizziness and Denies headache(s) Musculoskeletal: Denies numbness and Denies tingling Reports system reviewed and no additional complaints, except as documented, Denies Abnormal speech present, Denies dizziness, Denies headache(s), Denies numbness, Denies tingling and Denies weakness Mental Status Exam Mental Status Exam Patient Appearance: Disheveled Patient Orientation: Person, Place, Time and Situation Level of Consciousness: Awake Patient Behavior: Appropriate Mood Description: Sad Affect Description: Blunted Patient Cognition Impaired: No Ability to Follow Directions: Good Speech Pattern: Rambling and Mumbled Thought Process: Distracted Thought Content: positive for [place] and positive for Goal Oriented Depressive Symptoms: Diff. Making Decisions Judgement: Fair Diagnostics Vital Signs (24Hr): Vital Signs - 24 hr 07/27/20 16:44 07/28/20 06:00 07/28/20 08:26 Temperature 97.5 F 96.7 F L Pulse Rate 101 H 99 99 Blood Pressure 129/79 133/72 133/72 Pulse Oximetry 97 Body Mass Index 37.5 Labs Results: 07/24/20 09:41 07/24/20 09:41 Labs: Laboratory Results - last 48 hr 07/26/20 07/27/20 07/27/20 16:02 06:33 16:57 POC Glucose 169 H 168 H 288 H 07/28/20 06:17 POC Glucose 153 H Medications Medications Current Medications Generic Name Dose Route Start Last Admin Trade Name Freq PRN Reason Stop Dose Admin Acetaminophen 650 mg 07/23/20 16:06 Acetaminophen 325 Mg Tablet PO Q6H PRN Headache/Pain Mild Scale (1-3) Al Hydroxide/Mg Hydroxide 30 ml 07/23/20 16:06 Magnesium Hydrox/Alum Hydrox 30 Ml Oral.Susp PO Q6H PRN Heartburn/Nausea Atorvastatin Calcium 20 mg 07/22/20 21:00 07/27/20 22:43 Atorvastatin Calcium 20 Mg Tablet PO 20 mg BEDTIME LAUREN Administration Benztropine Mesylate 1 mg 07/22/20 21:00 07/28/20 08:25 Benztropine Mesylate 1 Mg Tablet PO 1 mg BID LAUREN Administration Clozapine 300 mg 07/22/20 21:00 07/27/20 22:43 Clozapine 100 Mg Tablet PO 300 mg BEDTIME LAUREN Administration Divalproex Sodium 500 mg 07/25/20 21:00 07/28/20 08:25 Divalproex Sodium Er 500 Mg Tab.Er.24h PO 500 mg BID LAUREN Administration Gabapentin 100 mg 07/22/20 16:45 07/28/20 14:26 Gabapentin 100 Mg Capsule PO 100 mg TID LAUREN Administration Gabapentin 800 mg 07/22/20 16:45 07/28/20 14:26 Gabapentin 400 Mg Capsule PO 800 mg TID LAUREN Administration Glipizide 5 mg 07/22/20 16:45 07/28/20 08:25 Glipizide 5 Mg Tablet PO 5 mg DAILY LAUREN Administration Hydroxyzine HCl 25 mg 07/23/20 16:06 Hydroxyzine Hcl 25 Mg Tablet PO BEDTIME PRN Anxiety Lorazepam 1 mg 07/26/20 21:00 07/27/20 22:43 Lorazepam 1 Mg Tablet PO 1 mg BEDTIME LAUREN Administration Magnesium Hydroxide 30 ml 07/23/20 16:06 Milk Of Magnesia 30 Ml Oral.Susp PO DAILY PRN Constipation Metformin HCl 1,000 mg 07/22/20 17:00 07/28/20 08:24 Metformin Hcl 1,000 Mg Tablet PO 1,000 mg BIDWM LAUREN Administration Metoprolol Succinate 25 mg 07/22/20 16:45 07/28/20 08:26 Metoprolol Succinate Er 25 Mg Tab.Er.24h PO 25 mg DAILY LAUREN Administration Protocol Trazodone HCl 200 mg 07/22/20 21:00 07/27/20 22:42 Trazodone Hcl 100 Mg Tablet PO 200 mg BEDTIME LAUREN Administration Allergies Allergies Allergy/AdvReac Type Severity Reaction Status Date / Time haloperidol [From Haldol] Allergy Intermediate Agitated Verified 07/22/20 18:01 lithium Allergy Intermediate Agitated Verified 07/22/20 18:01 oxcarbazepine Allergy Unknown RASH Verified 07/22/20 17:58 [From TRILEPTAL] From Prolixin Allergy Intermediate AKATHESIA Uncoded 07/22/20 17:58 Assessment & Plan Assessment & Plan (1) Schizoaffective disorder: Status: Acute Code(s): F25.9 - Schizoaffective disorder, unspecified Assessment and Plan: reports had clozapine inc last at [facility] didn't help his depression order dep lvl and comp to recheck alk phos Greater than 50% of the session was spent on counseling and/or coordination of care
[2020-07-28 16:54] LABS: Glucose, Whole Blood 271 mg/dL (60-115)
[2020-07-28 17:30] VITALS: BP 139/81; PULSE 101; TEMP 36.3; O2SAT 99
[2020-07-28] MEDS: LORazepam 1 MG TABLET PO (22:35)
[2020-07-28] MEDS: traZODone HCL 100 MG TABLET 200 MG PO (22:35)
[2020-07-28] MEDS: Atorvastatin Calcium 20 MG TABLET PO (22:35)
[2020-07-28] MEDS: cloZAPine 100 MG TABLET 300 MG PO (22:36)
[2020-07-29 06:15] VITALS: BP 129/65; PULSE 90; RESP 18; TEMP 36.1; O2SAT 97
[2020-07-29 06:57] LABS: Glucose, Whole Blood 141 mg/dL (60-115)
[2020-07-29 08:32] LABS: Alanine Aminotransferase 17 U/L (0-40); Albumin Level 3.9 g/dL (3.5-5.0); Alkaline Phosphatase 103 U/L (39-117); Anion Gap 14 (12-20); Aspartate Amino Transferase 9 U/L (5-37); Bilirubin Total 0.4 mg/dL (0.0-1.0); Blood Urea Nitrogen 15 mg/dL (9-16); Calcium 9.1 mg/dL (8.4-10.2); Carbon Dioxide 30 mmol/L (22-29); Chloride 102 mmol/L (96-108); Creatinine Clr Calc Pharmacy 130.5; Estimated Glomerular Filt Rate > 60; Glucose Random 174 mg/dL (60-115); Potassium 4.4 mmol/l (3.3-5.1); Sodium 142 mmol/L (135-145); Total Protein 5.8 g/dL (6.5-8.0)
[2020-07-29 08:36] LABS: Valproate 44.1 mcg/mL (50.0-100.0)
[2020-07-29 08:55] VITALS: BP 129/65; PULSE 90
[2020-07-29] MEDS: Metoprolol Succinate ER 25 MG TAB.ER.24H PO (08:55)
[2020-07-29] MEDS: Divalproex Sodium ER 500 MG TAB.ER.24H PO ×2 (08:55→22:27)
[2020-07-29] MEDS: Gabapentin 100 MG CAPSULE PO ×3 (08:56→22:26)
[2020-07-29] MEDS: glipiZIDE 5 MG TABLET PO (08:56)
[2020-07-29] MEDS: metFORMIN HCl 1,000 MG TABLET 1000 MG PO ×2 (08:56→17:00)
[2020-07-29] MEDS: Gabapentin 400 MG CAPSULE 800 MG PO ×3 (08:56→22:26)
[2020-07-29] MEDS: Benztropine Mesylate 1 MG TABLET PO ×2 (08:56→22:25)
[2020-07-29] MEDS: clonazePAM 0.5 MG TABLET PO ×2 (14:10→21:30)
[2020-07-29 16:30] VITALS: BP 122/71; PULSE 103; TEMP 36.3
[2020-07-29 17:15] LABS: Glucose, Whole Blood 141 mg/dL (60-115)
--- NOTE | 2020-07-29 21:37 | P.PNPSI_ITS ---
Subjective Subjective Date of Service: 07/29/20 Reason For Visit: Schizoaffective DX Subjective Notes: Conditional Voluntary Interim History: patient flat depressed withdrawn internally preoccupied. Not grossly psychotic unable to describe feeling state but complains of restlessness which appears to be associated with depression but not physically restless. Unc lear improvement with increase Depakote Medication Compliance: Yes Side effects from medications: No Review of Systems Constitutional: Denies headache(s) and Denies weakness Denies dizziness and Denies headache(s) Musculoskeletal: Denies numbness and Denies tingling Reports system reviewed and no additional complaints, except as documented, Denies Abnormal speech present, Denies dizziness, Denies headache(s), Denies numbness, Denies tingling and Denies weakness Mental Status Exam Mental Status Exam Patient Appearance: Disheveled Patient Orientation: Person, Place, Time and Situation Level of Consciousness: Awake Patient Behavior: Appropriate Mood Description: Sad Affect Description: Blunted Patient Cognition Impaired: No Ability to Follow Directions: Good Speech Pattern: Rambling and Mumbled Thought Process: Distracted Thought Content: positive for [place] and positive for Goal Oriented Depressive Symptoms: Diff. Making Decisions Judgement: Fair Diagnostics Vital Signs (24Hr): Vital Signs - 24 hr 07/29/20 06:15 07/29/20 08:55 07/29/20 16:30 Temperature 96.9 F 97.3 F Pulse Rate 90 90 103 H Respiratory Rate 18 Blood Pressure 129/65 129/65 122/71 Pulse Oximetry 97 Body Mass Index 37.5 Labs Results: 07/24/20 09:41 07/29/20 07:48 Labs: Laboratory Results - last 48 hr 07/28/20 07/28/20 07/29/20 06:17 16:43 06:49 Sodium Potassium Chloride Carbon Dioxide Anion Gap BUN Creatinine Estim Creat Clear Calc Estimated GFR POC Glucose 153 H 271 H 141 H Random Glucose Calcium Total Bilirubin AST ALT Alkaline Phosphatase Total Protein Albumin Valproic Acid 07/29/20 07/29/20 07:48 16:50 Sodium 142 Potassium 4.4 Chloride 102 Carbon Dioxide 30 H Anion Gap 14 BUN 15 Creatinine 0.85 Estim Creat Clear Calc 130.5 Estimated GFR > 60 POC Glucose 141 H Random Glucose 174 H Calcium 9.1 Total Bilirubin 0.4 AST 9 ALT 17 Alkaline Phosphatase 103 D Total Protein 5.8 L Albumin 3.9 Valproic Acid 44.1 L Medications Medications Current Medications Generic Name Dose Route Start Last Admin Trade Name Freq PRN Reason Stop Dose Admin Acetaminophen 650 mg 07/23/20 16:06 Acetaminophen 325 Mg Tablet PO Q6H PRN Headache/Pain Mild Scale (1-3) Al Hydroxide/Mg Hydroxide 30 ml 07/23/20 16:06 Magnesium Hydrox/Alum Hydrox 30 Ml Oral.Susp PO Q6H PRN Heartburn/Nausea Atorvastatin Calcium 20 mg 07/22/20 21:00 07/28/20 22:35 Atorvastatin Calcium 20 Mg Tablet PO 20 mg BEDTIME LAUREN Administration Benztropine Mesylate 1 mg 07/22/20 21:00 07/29/20 08:56 Benztropine Mesylate 1 Mg Tablet PO 1 mg BID LAUREN Administration Clonazepam 0.5 mg 07/29/20 13:50 07/29/20 21:30 Clonazepam 0.5 Mg Tablet PO 0.5 mg BID LAUREN Administration Clozapine 300 mg 07/22/20 21:00 07/28/20 22:36 Clozapine 100 Mg Tablet PO 300 mg BEDTIME LAUREN Administration Divalproex Sodium 500 mg 07/25/20 21:00 07/29/20 08:55 Divalproex Sodium Er 500 Mg Tab.Er.24h PO 500 mg BID LAUREN Administration Gabapentin 100 mg 07/22/20 16:45 07/29/20 14:10 Gabapentin 100 Mg Capsule PO 100 mg TID LAUREN Administration Gabapentin 800 mg 07/22/20 16:45 07/29/20 14:10 Gabapentin 400 Mg Capsule PO 800 mg TID LAUREN Administration Glipizide 5 mg 07/22/20 16:45 07/29/20 08:56 Glipizide 5 Mg Tablet PO 5 mg DAILY LAUREN Administration Hydroxyzine HCl 25 mg 07/23/20 16:06 Hydroxyzine Hcl 25 Mg Tablet PO BEDTIME PRN Anxiety Lorazepam 1 mg 07/26/20 21:00 07/28/20 22:35 Lorazepam 1 Mg Tablet PO 1 mg BEDTIME LAUREN Administration Magnesium Hydroxide 30 ml 07/23/20 16:06 Milk Of Magnesia 30 Ml Oral.Susp PO DAILY PRN Constipation Metformin HCl 1,000 mg 07/22/20 17:00 07/29/20 17:00 Metformin Hcl 1,000 Mg Tablet PO 1,000 mg BIDWM LAUREN Administration Metoprolol Succinate 25 mg 07/22/20 16:45 07/29/20 08:55 Metoprolol Succinate Er 25 Mg Tab.Er.24h PO 25 mg DAILY LAUREN Administration Protocol Trazodone HCl 200 mg 07/22/20 21:00 07/28/20 22:35 Trazodone Hcl 100 Mg Tablet PO 200 mg BEDTIME LAUREN Administration Allergies Allergies Allergy/AdvReac Type Severity Reaction Status Date / Time haloperidol [From Haldol] Allergy Intermediate Agitated Verified 07/22/20 18:01 lithium Allergy Intermediate Agitated Verified 07/22/20 18:01 oxcarbazepine Allergy Unknown RASH Verified 07/22/20 17:58 [From TRILEPTAL] From Prolixin Allergy Intermediate AKATHESIA Uncoded 07/22/20 17:58 Assessment & Plan Assessment & Plan (1) Schizoaffective disorder: Status: Acute Code(s): F25.9 - Schizoaffective disorder, unspecified (2) Suicidal thoughts: Status: Acute Code(s): R45.851 - Suicidal ideations Assessment and Plan: patient flat blunted withdrawn. Some improvement noted remain somewhat hopeless helpless with passive SI no active plan it appears difficult for him to connect his cognitions feeling states and events. It does appear social isolation lack of outside supports his mother going to a fpc have been clear precipitants. No gross psychosis. Clozaril is associated with decrease suicide risk check Depakote level check Clozaril level case reviewed with Chris garcia. his outpatient provider Greater than 50% of the session was spent on counseling and/or coordination of care
[2020-07-29] MEDS: cloZAPine 100 MG TABLET 300 MG PO (22:28)
[2020-07-29] MEDS: Atorvastatin Calcium 20 MG TABLET PO (22:29)
[2020-07-29] MEDS: traZODone HCL 100 MG TABLET 200 MG PO (22:29)
[2020-07-29] MEDS: LORazepam 1 MG TABLET PO (22:30)
[2020-07-30 06:11] LABS: Glucose, Whole Blood 165 mg/dL (60-115)
[2020-07-30 06:22] VITALS: BP 126/65; PULSE 93; RESP 16; TEMP 35.9; O2SAT 95
[2020-07-30] MEDS: Benztropine Mesylate 1 MG TABLET PO ×2 (08:21→23:01)
[2020-07-30] MEDS: clonazePAM 0.5 MG TABLET PO ×2 (08:21→21:25)
[2020-07-30] MEDS: Divalproex Sodium ER 500 MG TAB.ER.24H PO ×2 (08:21→23:02)
[2020-07-30] MEDS: metFORMIN HCl 1,000 MG TABLET 1000 MG PO ×2 (08:21→17:08)
[2020-07-30] MEDS: Gabapentin 400 MG CAPSULE 800 MG PO ×3 (08:21→23:03)
[2020-07-30 08:22] VITALS: BP 126/65; PULSE 93
[2020-07-30] MEDS: glipiZIDE 5 MG TABLET PO (08:22)
[2020-07-30] MEDS: Metoprolol Succinate ER 25 MG TAB.ER.24H PO (08:22)
[2020-07-30] MEDS: Gabapentin 100 MG CAPSULE PO ×3 (08:22→23:02)
[2020-07-30 17:18] LABS: Glucose, Whole Blood 196 mg/dL (60-115)
[2020-07-30 18:00] VITALS: BP 117/71; PULSE 102; TEMP 36.4
[2020-07-30] MEDS: Atorvastatin Calcium 20 MG TABLET PO (21:26)
--- NOTE | 2020-07-30 22:43 | HO.PSYCHPN ---
Subjective Subjective Date of Service: 07/31/20 Reason For Visit: Schizoaffective DX Subjective Notes: Conditional Voluntary Interim History: Patient somewhat flat delayed mentation less distressed Review of Systems Constitutional: Denies headache(s) and Denies weakness Denies dizziness and Denies headache(s) Musculoskeletal: Denies numbness and Denies tingling Reports system reviewed and no additional complaints, except as documented, Denies Abnormal speech present, Denies dizziness, Denies headache(s), Denies numbness, Denies tingling and Denies weakness Mental Status Exam Mental Status Exam Patient Appearance: Disheveled Patient Orientation: Person, Place, Time and Situation Level of Consciousness: Awake Patient Behavior: Appropriate Mood Description: Sad Affect Description: Blunted Patient Cognition Impaired: No Ability to Follow Directions: Good Speech Pattern: Rambling and Mumbled Thought Process: Distracted Thought Content: positive for [place] and positive for Goal Oriented Depressive Symptoms: Diff. Making Decisions Judgement: Fair Diagnostics Vital Signs (24Hr): Vital Signs - 24 hr 07/30/20 06:22 07/30/20 08:22 07/30/20 18:00 Temperature 96.7 F L 97.5 F Pulse Rate 93 93 102 H Respiratory Rate 16 Blood Pressure 126/65 126/65 117/71 Pulse Oximetry 95 Body Mass Index 37.5 Labs Results: 07/24/20 09:41 07/29/20 07:48 Labs: Laboratory Results - last 48 hr 07/29/20 07/29/20 07/29/20 06:49 07:48 16:50 Sodium 142 Potassium 4.4 Chloride 102 Carbon Dioxide 30 H Anion Gap 14 BUN 15 Creatinine 0.85 Estim Creat Clear Calc 130.5 Estimated GFR > 60 POC Glucose 141 H 141 H Random Glucose 174 H Calcium 9.1 Total Bilirubin 0.4 AST 9 ALT 17 Alkaline Phosphatase 103 D Total Protein 5.8 L Albumin 3.9 Valproic Acid 44.1 L 07/30/20 07/30/20 06:05 16:47 Sodium Potassium Chloride Carbon Dioxide Anion Gap BUN Creatinine Estim Creat Clear Calc Estimated GFR POC Glucose 165 H 196 H Random Glucose Calcium Total Bilirubin AST ALT Alkaline Phosphatase Total Protein Albumin Valproic Acid Medications Medications Current Medications Generic Name Dose Route Start Last Admin Trade Name Freq PRN Reason Stop Dose Admin Acetaminophen 650 mg 07/23/20 16:06 Acetaminophen 325 Mg Tablet PO Q6H PRN Headache/Pain Mild Scale (1-3) Al Hydroxide/Mg Hydroxide 30 ml 07/23/20 16:06 Magnesium Hydrox/Alum Hydrox 30 Ml Oral.Susp PO Q6H PRN Heartburn/Nausea Atorvastatin Calcium 20 mg 07/22/20 21:00 07/30/20 21:26 Atorvastatin Calcium 20 Mg Tablet PO 20 mg BEDTIME LAUREN Administration Benztropine Mesylate 1 mg 07/22/20 21:00 07/30/20 08:21 Benztropine Mesylate 1 Mg Tablet PO 1 mg BID LAUREN Administration Clonazepam 0.5 mg 07/29/20 13:50 07/30/20 21:25 Clonazepam 0.5 Mg Tablet PO 0.5 mg BID LAUREN Administration Clozapine 300 mg 07/22/20 21:00 07/29/20 22:28 Clozapine 100 Mg Tablet PO 300 mg BEDTIME LAUREN Administration Divalproex Sodium 500 mg 07/25/20 21:00 07/30/20 08:21 Divalproex Sodium Er 500 Mg Tab.Er.24h PO 500 mg BID LAUREN Administration Gabapentin 100 mg 07/22/20 16:45 07/30/20 14:46 Gabapentin 100 Mg Capsule PO 100 mg TID LAUREN Administration Gabapentin 800 mg 07/22/20 16:45 07/30/20 14:47 Gabapentin 400 Mg Capsule PO 800 mg TID LAUREN Administration Glipizide 5 mg 07/22/20 16:45 07/30/20 08:22 Glipizide 5 Mg Tablet PO 5 mg DAILY LAUREN Administration Hydroxyzine HCl 25 mg 07/23/20 16:06 Hydroxyzine Hcl 25 Mg Tablet PO BEDTIME PRN Anxiety Lorazepam 1 mg 07/26/20 21:00 07/29/20 22:30 Lorazepam 1 Mg Tablet PO 1 mg BEDTIME LAUREN Administration Magnesium Hydroxide 30 ml 07/23/20 16:06 Milk Of Magnesia 30 Ml Oral.Susp PO DAILY PRN Constipation Metformin HCl 1,000 mg 07/22/20 17:00 07/30/20 17:08 Metformin Hcl 1,000 Mg Tablet PO 1,000 mg BIDWM LAUREN Administration Metoprolol Succinate 25 mg 07/22/20 16:45 07/30/20 08:22 Metoprolol Succinate Er 25 Mg Tab.Er.24h PO 25 mg DAILY LAUREN Administration Protocol Trazodone HCl 200 mg 07/22/20 21:00 07/29/20 22:29 Trazodone Hcl 100 Mg Tablet PO 200 mg BEDTIME LAUREN Administration Allergies Allergies Allergy/AdvReac Type Severity Reaction Status Date / Time haloperidol [From Haldol] Allergy Intermediate Agitated Verified 07/22/20 18:01 lithium Allergy Intermediate Agitated Verified 07/22/20 18:01 oxcarbazepine Allergy Unknown RASH Verified 07/22/20 17:58 [From TRILEPTAL] From Prolixin Allergy Intermediate AKATHESIA Uncoded 07/22/20 17:58 Assessment & Plan Assessment & Plan (1) Schizoaffective disorder: Status: Acute Code(s): F25.9 - Schizoaffective disorder, unspecified (2) Suicidal thoughts: Status: Acute Code(s): R45.851 - Suicidal ideations Assessment and Plan: cont tx plan Greater than 50% of the session was spent on counseling and/or coordination of care
[2020-07-30] MEDS: cloZAPine 100 MG TABLET 300 MG PO (23:01)
[2020-07-30] MEDS: traZODone HCL 100 MG TABLET 200 MG PO (23:01)
[2020-07-30] MEDS: LORazepam 1 MG TABLET PO (23:02)
[2020-07-31 07:00] LABS: Glucose, Whole Blood 164 mg/dL (60-115)
[2020-07-31 07:10] VITALS: BP 123/58; PULSE 91; RESP 18; TEMP 35.9
[2020-07-31 09:00] LABS: Valproate 45.1 mcg/mL (50.0-100.0)
[2020-07-31] MEDS: Gabapentin 100 MG CAPSULE PO ×3 (10:19→21:21)
[2020-07-31] MEDS: Divalproex Sodium ER 500 MG TAB.ER.24H PO ×2 (10:19→21:21)
[2020-07-31] MEDS: metFORMIN HCl 1,000 MG TABLET 1000 MG PO ×2 (10:19→17:03)
[2020-07-31] MEDS: clonazePAM 0.5 MG TABLET PO ×2 (10:19→21:21)
[2020-07-31 10:21] VITALS: BP 123/58; PULSE 91
[2020-07-31] MEDS: Metoprolol Succinate ER 25 MG TAB.ER.24H PO (10:21)
[2020-07-31] MEDS: Benztropine Mesylate 1 MG TABLET PO ×2 (10:21→21:21)
[2020-07-31] MEDS: Gabapentin 400 MG CAPSULE 800 MG PO ×3 (10:23→21:20)
[2020-07-31] MEDS: glipiZIDE 5 MG TABLET PO (10:23)
[2020-07-31 16:32] VITALS: BP 109/71; PULSE 112; TEMP 36.7
[2020-07-31 17:01] LABS: Glucose, Whole Blood 197 mg/dL (60-115)
[2020-07-31] MEDS: cloZAPine 100 MG TABLET 300 MG PO (21:21)
[2020-07-31] MEDS: traZODone HCL 100 MG TABLET 200 MG PO (21:21)
[2020-07-31] MEDS: Atorvastatin Calcium 20 MG TABLET PO (21:21)
[2020-08-01 06:00] VITALS: BP 100/54; PULSE 90; TEMP 36.6
[2020-08-01 06:29] LABS: Glucose, Whole Blood 167 mg/dL (60-115)
[2020-08-01 07:00] VITALS: BMI 16.2
[2020-08-01] MEDS: Benztropine Mesylate 1 MG TABLET PO ×2 (08:28→22:46)
[2020-08-01] MEDS: Gabapentin 100 MG CAPSULE PO ×3 (08:28→22:46)
[2020-08-01] MEDS: Gabapentin 400 MG CAPSULE 800 MG PO ×3 (08:28→22:46)
[2020-08-01] MEDS: clonazePAM 0.5 MG TABLET PO ×2 (08:28→22:46)
[2020-08-01] MEDS: metFORMIN HCl 1,000 MG TABLET 1000 MG PO ×2 (08:28→16:55)
[2020-08-01 08:29] VITALS: BP 100/54; PULSE 90
[2020-08-01] MEDS: Metoprolol Succinate ER 25 MG TAB.ER.24H PO (08:29)
[2020-08-01] MEDS: glipiZIDE 5 MG TABLET PO (08:29)
[2020-08-01] MEDS: Divalproex Sodium ER 500 MG TAB.ER.24H PO ×2 (08:29→22:46)
[2020-08-01 16:59] LABS: Glucose, Whole Blood 181 mg/dL (60-115)
--- NOTE | 2020-08-01 17:03 | HO.PSYCHPN ---
Subjective Subjective Date of Service: 08/01/20 Reason For Visit: Schizoaffective DX Interim History: patient flat and dysphoric improvement noted on increase Depakote Medication Compliance: Yes Review of Systems Constitutional: Denies headache(s) and Denies weakness Denies dizziness and Denies headache(s) Musculoskeletal: Denies numbness and Denies tingling Reports system reviewed and no additional complaints, except as documented, Denies Abnormal speech present, Denies dizziness, Denies headache(s), Denies numbness, Denies tingling and Denies weakness Mental Status Exam Mental Status Exam Patient Appearance: Disheveled Patient Orientation: Person, Place, Time and Situation Level of Consciousness: Awake Patient Behavior: Appropriate Mood Description: Sad Affect Description: Blunted Patient Cognition Impaired: No Ability to Follow Directions: Good Speech Pattern: Rambling and Mumbled Thought Process: Distracted Thought Content: positive for [place] and positive for Goal Oriented Depressive Symptoms: Diff. Making Decisions Judgement: Fair Diagnostics Vital Signs (24Hr): Vital Signs - 24 hr 08/01/20 06:00 08/01/20 08:29 Temperature 98 F Pulse Rate 90 90 Blood Pressure 100/54 L 100/54 L Body Mass Index 16.2 Labs Results: 07/24/20 09:41 07/29/20 07:48 Labs: Laboratory Results - last 48 hr 07/30/20 07/31/20 07/31/20 16:47 06:53 07:48 POC Glucose 196 H 164 H Valproic Acid 45.1 L 07/31/20 08/01/20 08/01/20 16:57 06:18 16:45 POC Glucose 197 H 167 H 181 H Valproic Acid Medications Medications Current Medications Generic Name Dose Route Start Last Admin Trade Name Freq PRN Reason Stop Dose Admin Acetaminophen 650 mg 07/23/20 16:06 Acetaminophen 325 Mg Tablet PO Q6H PRN Headache/Pain Mild Scale (1-3) Al Hydroxide/Mg Hydroxide 30 ml 07/23/20 16:06 Magnesium Hydrox/Alum Hydrox 30 Ml Oral.Susp PO Q6H PRN Heartburn/Nausea Atorvastatin Calcium 20 mg 07/22/20 21:00 07/31/20 21:21 Atorvastatin Calcium 20 Mg Tablet PO 20 mg BEDTIME LAUREN Administration Benztropine Mesylate 1 mg 07/22/20 21:00 08/01/20 08:28 Benztropine Mesylate 1 Mg Tablet PO 1 mg BID LAUREN Administration Clonazepam 0.5 mg 07/29/20 13:50 08/01/20 08:28 Clonazepam 0.5 Mg Tablet PO 0.5 mg BID LAUREN Administration Clozapine 300 mg 07/22/20 21:00 07/31/20 21:21 Clozapine 100 Mg Tablet PO 300 mg BEDTIME LAUREN Administration Divalproex Sodium 500 mg 07/25/20 21:00 08/01/20 08:29 Divalproex Sodium Er 500 Mg Tab.Er.24h PO 500 mg BID LAUREN Administration Gabapentin 100 mg 07/22/20 16:45 08/01/20 14:50 Gabapentin 100 Mg Capsule PO 100 mg TID LAUREN Administration Gabapentin 800 mg 07/22/20 16:45 08/01/20 14:50 Gabapentin 400 Mg Capsule PO 800 mg TID LAUREN Administration Glipizide 5 mg 07/22/20 16:45 08/01/20 08:29 Glipizide 5 Mg Tablet PO 5 mg DAILY LAUREN Administration Hydroxyzine HCl 25 mg 07/23/20 16:06 Hydroxyzine Hcl 25 Mg Tablet PO BEDTIME PRN Anxiety Magnesium Hydroxide 30 ml 07/23/20 16:06 Milk Of Magnesia 30 Ml Oral.Susp PO DAILY PRN Constipation Metformin HCl 1,000 mg 07/22/20 17:00 08/01/20 16:55 Metformin Hcl 1,000 Mg Tablet PO 1,000 mg BIDWM LAUREN Administration Metoprolol Succinate 25 mg 07/22/20 16:45 08/01/20 08:29 Metoprolol Succinate Er 25 Mg Tab.Er.24h PO 25 mg DAILY LAUREN Administration Protocol Trazodone HCl 200 mg 07/22/20 21:00 07/31/20 21:21 Trazodone Hcl 100 Mg Tablet PO 200 mg BEDTIME LAUREN Administration Allergies Allergies Allergy/AdvReac Type Severity Reaction Status Date / Time haloperidol [From Haldol] Allergy Intermediate Agitated Verified 07/22/20 18:01 lithium Allergy Intermediate Agitated Verified 07/22/20 18:01 oxcarbazepine Allergy Unknown RASH Verified 07/22/20 17:58 [From TRILEPTAL] From Prolixin Allergy Intermediate AKATHESIA Uncoded 07/22/20 17:58 Assessment & Plan Assessment & Plan (1) Schizoaffective disorder: Status: Acute Code(s): F25.9 - Schizoaffective disorder, unspecified Assessment and Plan: continue Clozaril (2) Suicidal thoughts: Status: Acute Code(s): R45.851 - Suicidal ideations Greater than 50% of the session was spent on counseling and/or coordination of care
[2020-08-01] MEDS: cloZAPine 100 MG TABLET 300 MG PO (22:45)
[2020-08-01] MEDS: traZODone HCL 100 MG TABLET 200 MG PO (22:46)
[2020-08-01] MEDS: Atorvastatin Calcium 20 MG TABLET PO (22:46)
[2020-08-02 06:15] VITALS: BP 110/56; PULSE 95; RESP 18; TEMP 36.2; O2SAT 96
[2020-08-02 06:26] LABS: Glucose, Whole Blood 142 mg/dL (60-115)
[2020-08-02] MEDS: Gabapentin 400 MG CAPSULE 800 MG PO ×3 (08:46→22:35)
[2020-08-02] MEDS: glipiZIDE 5 MG TABLET PO (08:46)
[2020-08-02] MEDS: Gabapentin 100 MG CAPSULE PO ×3 (08:47→22:35)
[2020-08-02] MEDS: Benztropine Mesylate 1 MG TABLET PO ×2 (08:47→22:35)
[2020-08-02] MEDS: Divalproex Sodium ER 500 MG TAB.ER.24H PO ×2 (08:47→22:35)
[2020-08-02] MEDS: metFORMIN HCl 1,000 MG TABLET 1000 MG PO ×2 (08:47→17:20)
[2020-08-02 08:48] VITALS: BP 110/56; PULSE 95
[2020-08-02] MEDS: clonazePAM 0.5 MG TABLET PO ×2 (08:48→22:35)
[2020-08-02 17:25] VITALS: BP 117/74; PULSE 112; TEMP 36.7
[2020-08-02 17:33] LABS: Glucose, Whole Blood 190 mg/dL (60-115)
[2020-08-02] MEDS: cloZAPine 100 MG TABLET 300 MG PO (22:34)
[2020-08-02] MEDS: traZODone HCL 100 MG TABLET 200 MG PO (22:35)
[2020-08-02] MEDS: Atorvastatin Calcium 20 MG TABLET PO (22:35)
--- NOTE | 2020-08-02 22:36 | HO.PSYCHPN ---
Subjective Subjective Date of Service: 08/02/20 Reason For Visit: Schizoaffective DX Subjective Notes: Conditional Voluntary Medication Compliance: Yes Review of Systems Constitutional: Denies headache(s) and Denies weakness Denies dizziness and Denies headache(s) Musculoskeletal: Denies numbness and Denies tingling Reports system reviewed and no additional complaints, except as documented, Denies Abnormal speech present, Denies dizziness, Denies headache(s), Denies numbness, Denies tingling and Denies weakness Mental Status Exam Mental Status Exam Patient Appearance: Disheveled Patient Orientation: Person, Place, Time and Situation Level of Consciousness: Awake Patient Behavior: Appropriate Mood Description: Sad Affect Description: Blunted Patient Cognition Impaired: No Ability to Follow Directions: Good Speech Pattern: Impoverished, Monotone and Rambling Thought Process: Distracted Thought Content: positive for [place] and positive for Goal Oriented Depressive Symptoms: Diff. Making Decisions Judgement: Fair Diagnostics Vital Signs (24Hr): Vital Signs - 24 hr 08/02/20 06:15 08/02/20 08:48 08/02/20 17:25 Temperature 97.1 F 98.1 F Pulse Rate 95 95 112 H Respiratory Rate 18 Blood Pressure 110/56 L 110/56 L 117/74 Pulse Oximetry 96 Body Mass Index 16.2 Labs Results: 07/24/20 09:41 07/29/20 07:48 Labs: Laboratory Results - last 48 hr 08/01/20 08/01/20 08/02/20 06:18 16:45 06:19 POC Glucose 167 H 181 H 142 H 08/02/20 17:02 POC Glucose 190 H Medications Medications Current Medications Generic Name Dose Route Start Last Admin Trade Name Treyq PRN Reason Stop Dose Admin Acetaminophen 650 mg 07/23/20 16:06 Acetaminophen 325 Mg Tablet PO Q6H PRN Headache/Pain Mild Scale (1-3) Al Hydroxide/Mg Hydroxide 30 ml 07/23/20 16:06 Magnesium Hydrox/Alum Hydrox 30 Ml Oral.Susp PO Q6H PRN Heartburn/Nausea Atorvastatin Calcium 20 mg 07/22/20 21:00 08/01/20 22:46 Atorvastatin Calcium 20 Mg Tablet PO 20 mg BEDTIME LAUREN Administration Benztropine Mesylate 1 mg 07/22/20 21:00 08/02/20 08:47 Benztropine Mesylate 1 Mg Tablet PO 1 mg BID LAUREN Administration Clonazepam 0.5 mg 07/29/20 13:50 08/02/20 08:48 Clonazepam 0.5 Mg Tablet PO 0.5 mg BID LAUREN Administration Clozapine 300 mg 07/22/20 21:00 08/01/20 22:45 Clozapine 100 Mg Tablet PO 300 mg BEDTIME LAUREN Administration Divalproex Sodium 500 mg 07/25/20 21:00 08/02/20 08:47 Divalproex Sodium Er 500 Mg Tab.Er.24h PO 500 mg BID LAUREN Administration Gabapentin 100 mg 07/22/20 16:45 08/02/20 14:32 Gabapentin 100 Mg Capsule PO 100 mg TID LAUREN Administration Gabapentin 800 mg 07/22/20 16:45 08/02/20 14:32 Gabapentin 400 Mg Capsule PO 800 mg TID LAUREN Administration Glipizide 5 mg 07/22/20 16:45 08/02/20 08:46 Glipizide 5 Mg Tablet PO 5 mg DAILY LAUREN Administration Hydroxyzine HCl 25 mg 07/23/20 16:06 Hydroxyzine Hcl 25 Mg Tablet PO BEDTIME PRN Anxiety Magnesium Hydroxide 30 ml 07/23/20 16:06 Milk Of Magnesia 30 Ml Oral.Susp PO DAILY PRN Constipation Metformin HCl 1,000 mg 07/22/20 17:00 08/02/20 17:20 Metformin Hcl 1,000 Mg Tablet PO 1,000 mg BIDWM LAUREN Administration Metoprolol Succinate 25 mg 07/22/20 16:45 08/02/20 08:48 Metoprolol Succinate Er 25 Mg Tab.Er.24h PO Not Given DAILY [facility] Protocol Trazodone HCl 200 mg 07/22/20 21:00 08/01/20 22:46 Trazodone Hcl 100 Mg Tablet PO 200 mg BEDTIME LAUREN Administration Allergies Allergies Allergy/AdvReac Type Severity Reaction Status Date / Time haloperidol [From Haldol] Allergy Intermediate Agitated Verified 07/22/20 18:01 lithium Allergy Intermediate Agitated Verified 07/22/20 18:01 oxcarbazepine Allergy Unknown RASH Verified 07/22/20 17:58 [From TRILEPTAL] From Prolixin Allergy Intermediate AKATHESIA Uncoded 07/22/20 17:58 Assessment & Plan Assessment & Plan (1) Schizoaffective disorder: Status: Acute Code(s): F25.9 - Schizoaffective disorder, unspecified (2) Suicidal thoughts: Status: Acute Code(s): R45.851 - Suicidal ideations Assessment and Plan: CK CLOZ LEVEL CONSIDER ANTIDEP TRIAL PT UNABLE TO GIVE CLEAR HX HAD ECT IN THE PAST Greater than 50% of the session was spent on counseling and/or coordination of care Patient educated on: diagnosis and medication risk/benefits Informed Consent: further education needed
[2020-08-03 06:15] VITALS: BP 145/63; PULSE 86; RESP 16; TEMP 36.3; O2SAT 95
[2020-08-03 06:29] LABS: Glucose, Whole Blood 141 mg/dL (60-115)
[2020-08-03 08:45] LABS: Alanine Aminotransferase 20 U/L (0-40); Albumin Level 4.1 g/dL (3.5-5.0); Alkaline Phosphatase 96 U/L (39-117); Anion Gap 13 (12-20); Aspartate Amino Transferase 11 U/L (5-37); Bilirubin Total 0.4 mg/dL (0.0-1.0); Blood Urea Nitrogen 15 mg/dL (9-16); Carbon Dioxide 30 mmol/L (22-29); Chloride 102 mmol/L (96-108); Cholesterol 163 mg/dL; Creatinine Clr Calc Pharmacy 63.2; Estimated Glomerular Filt Rate > 60; Glucose Fasting 153 mg/dL (60-99); HDL Cholesterol 25 mg/dL; LDL Cholesterol Calculated 98 mg/dl; Sodium 141 mmol/L (135-145); Total Protein 6.2 g/dL (6.5-8.0); Triglycerides 204 mg/dL; Valproate 54.1 mcg/mL (50.0-100.0)
[2020-08-03 09:10] LABS: TSH reflex Free T4 1.85 mIU/mL (0.32-4.0)
[2020-08-03 09:21] VITALS: BP 145/63; PULSE 86
[2020-08-03] MEDS: Metoprolol Succinate ER 25 MG TAB.ER.24H PO (09:21)
[2020-08-03] MEDS: metFORMIN HCl 1,000 MG TABLET 1000 MG PO ×2 (09:21→17:10)
[2020-08-03] MEDS: clonazePAM 0.5 MG TABLET PO ×2 (09:21→22:31)
[2020-08-03] MEDS: Gabapentin 100 MG CAPSULE PO ×3 (09:22→22:29)
[2020-08-03] MEDS: Divalproex Sodium ER 500 MG TAB.ER.24H PO ×2 (09:22→22:30)
[2020-08-03] MEDS: Gabapentin 400 MG CAPSULE 800 MG PO ×3 (09:22→22:29)
[2020-08-03] MEDS: Benztropine Mesylate 1 MG TABLET PO ×2 (09:23→22:31)
[2020-08-03] MEDS: glipiZIDE 5 MG TABLET PO (09:23)
--- NOTE | 2020-08-03 14:26 | HO.PSYCHPN ---
Subjective Subjective Date of Service: 08/03/20 Reason For Visit: Schizoaffective DX Interim History: patient flat and dysphoric improvement noted on increase Depakote. Rates depression as 5-6/10 (10 worst). No SI. Ct Plan Review of Systems Constitutional: Denies headache(s) and Denies weakness Denies dizziness and Denies headache(s) Musculoskeletal: Denies numbness and Denies tingling Reports system reviewed and no additional complaints, except as documented, Denies Abnormal speech present, Denies dizziness, Denies headache(s), Denies numbness, Denies tingling and Denies weakness Mental Status Exam Mental Status Exam Patient Appearance: Disheveled Patient Orientation: Person, Place, Time and Situation Level of Consciousness: Awake Patient Behavior: Appropriate Mood Description: Sad Affect Description: Blunted Patient Cognition Impaired: No Ability to Follow Directions: Good Speech Pattern: Impoverished, Monotone and Rambling Diagnostics Vital Signs (24Hr): Vital Signs - 24 hr 08/02/20 17:25 08/03/20 06:15 08/03/20 09:21 Temperature 98.1 F 97.4 F Pulse Rate 112 H 86 86 Respiratory Rate 16 Blood Pressure 117/74 145/63 H 145/63 H Pulse Oximetry 95 Body Mass Index 16.2 Labs Results: 07/24/20 09:41 08/03/20 08:07 Labs: Laboratory Results - last 48 hr 08/01/20 08/02/20 08/02/20 16:45 06:19 17:02 Sodium Potassium Chloride Carbon Dioxide Anion Gap BUN Creatinine Estim Creat Clear Calc Estimated GFR POC Glucose 181 H 142 H 190 H Fasting Glucose Calcium Total Bilirubin AST ALT Alkaline Phosphatase Total Protein Albumin Triglycerides Cholesterol LDL Cholesterol, Calc HDL Cholesterol TSH Valproic Acid 08/03/20 08/03/20 06:25 08:07 Sodium 141 Potassium 4.0 Chloride 102 Carbon Dioxide 30 H Anion Gap 13 BUN 15 Creatinine 0.99 Estim Creat Clear Calc 63.2 Estimated GFR > 60 POC Glucose 141 H Fasting Glucose 153 H Calcium 9.0 Total Bilirubin 0.4 AST 11 ALT 20 Alkaline Phosphatase 96 Total Protein 6.2 L Albumin 4.1 Triglycerides 204 Cholesterol 163 D LDL Cholesterol, Calc 98 HDL Cholesterol 25 TSH 1.85 Valproic Acid 54.1 Medications Medications Current Medications Generic Name Dose Route Start Last Admin Trade Name Freq PRN Reason Stop Dose Admin Acetaminophen 650 mg 07/23/20 16:06 Acetaminophen 325 Mg Tablet PO Q6H PRN Headache/Pain Mild Scale (1-3) Al Hydroxide/Mg Hydroxide 30 ml 07/23/20 16:06 Magnesium Hydrox/Alum Hydrox 30 Ml Oral.Susp PO Q6H PRN Heartburn/Nausea Atorvastatin Calcium 20 mg 07/22/20 21:00 08/02/20 22:35 Atorvastatin Calcium 20 Mg Tablet PO 20 mg BEDTIME LAUREN Administration Benztropine Mesylate 1 mg 07/22/20 21:00 08/03/20 09:23 Benztropine Mesylate 1 Mg Tablet PO 1 mg BID LAUREN Administration Clozapine 300 mg 07/22/20 21:00 08/02/20 22:34 Clozapine 100 Mg Tablet PO 300 mg BEDTIME LAUREN Administration Divalproex Sodium 500 mg 07/25/20 21:00 08/03/20 09:22 Divalproex Sodium Er 500 Mg Tab.Er.24h PO 500 mg BID LAUREN Administration Gabapentin 100 mg 07/22/20 16:45 08/03/20 09:22 Gabapentin 100 Mg Capsule PO 100 mg TID LAUREN Administration Gabapentin 800 mg 07/22/20 16:45 08/03/20 09:22 Gabapentin 400 Mg Capsule PO 800 mg TID LAUREN Administration Glipizide 5 mg 07/22/20 16:45 08/03/20 09:23 Glipizide 5 Mg Tablet PO 5 mg DAILY LAUREN Administration Hydroxyzine HCl 25 mg 07/23/20 16:06 Hydroxyzine Hcl 25 Mg Tablet PO BEDTIME PRN Anxiety Magnesium Hydroxide 30 ml 07/23/20 16:06 Milk Of Magnesia 30 Ml Oral.Susp PO DAILY PRN Constipation Metformin HCl 1,000 mg 07/22/20 17:00 08/03/20 09:21 Metformin Hcl 1,000 Mg Tablet PO 1,000 mg BIDWM LAUREN Administration Metoprolol Succinate 25 mg 07/22/20 16:45 08/03/20 09:21 Metoprolol Succinate Er 25 Mg Tab.Er.24h PO 25 mg DAILY LAUREN Administration Protocol Trazodone HCl 200 mg 07/22/20 21:00 08/02/20 22:35 Trazodone Hcl 100 Mg Tablet PO 200 mg BEDTIME LAUREN Administration Allergies Allergies Allergy/AdvReac Type Severity Reaction Status Date / Time haloperidol [From Haldol] Allergy Intermediate Agitated Verified 07/22/20 18:01 lithium Allergy Intermediate Agitated Verified 07/22/20 18:01 oxcarbazepine Allergy Unknown RASH Verified 07/22/20 17:58 [From TRILEPTAL] From Prolixin Allergy Intermediate AKATHESIA Uncoded 07/22/20 17:58 Assessment & Plan Assessment & Plan (1) Schizoaffective disorder: Status: Acute Code(s): F25.9 - Schizoaffective disorder, unspecified (2) Suicidal thoughts: Status: Acute Code(s): R45.851 - Suicidal ideations Assessment and Plan: CK CLOZ LEVEL CONSIDER ANTIDEP TRIAL PT UNABLE TO GIVE CLEAR HX HAD ECT IN THE PAST Greater than 50% of the session was spent on counseling and/or coordination of care
[2020-08-03 17:09] LABS: Glucose, Whole Blood 220 mg/dL (60-115)
[2020-08-03 20:15] VITALS: BP 130/64; PULSE 106; TEMP 36.5; O2SAT 98
[2020-08-03] MEDS: cloZAPine 100 MG TABLET 300 MG PO (22:28)
[2020-08-03] MEDS: Atorvastatin Calcium 20 MG TABLET PO (22:30)
[2020-08-03] MEDS: traZODone HCL 100 MG TABLET 200 MG PO (22:31)
[2020-08-04 06:15] VITALS: BP 108/56; PULSE 94; RESP 16; TEMP 36.1; O2SAT 94
[2020-08-04 06:20] LABS: Glucose, Whole Blood 152 mg/dL (60-115)
[2020-08-04] MEDS: Benztropine Mesylate 1 MG TABLET PO ×2 (08:43→22:02)
[2020-08-04] MEDS: Gabapentin 100 MG CAPSULE PO ×3 (08:43→22:02)
[2020-08-04] MEDS: glipiZIDE 5 MG TABLET PO (08:44)
[2020-08-04] MEDS: metFORMIN HCl 1,000 MG TABLET 1000 MG PO ×2 (08:44→17:11)
[2020-08-04] MEDS: Divalproex Sodium ER 500 MG TAB.ER.24H PO ×2 (08:44→22:02)
--- NOTE | 2020-08-04 08:54 | HO.PSYCHPN ---
Subjective Subjective Date of Service: 08/04/20 Reason For Visit: Schizoaffective DX Interim History: States improvement little by little Rates depression as 5-6/10 (10 worst). No SI. Ct Plan Review of Systems Constitutional: Denies headache(s) and Denies weakness Denies dizziness and Denies headache(s) Musculoskeletal: Denies numbness and Denies tingling Reports system reviewed and no additional complaints, except as documented, Denies Abnormal speech present, Denies dizziness, Denies headache(s), Denies numbness, Denies tingling and Denies weakness Mental Status Exam Mental Status Exam Patient Appearance: Disheveled Patient Orientation: Person, Place, Time and Situation Level of Consciousness: Awake Patient Behavior: Appropriate Mood Description: Sad Affect Description: Blunted Patient Cognition Impaired: No Ability to Follow Directions: Good Speech Pattern: Impoverished, Monotone and Rambling Diagnostics Vital Signs (24Hr): Vital Signs - 24 hr 08/03/20 09:21 08/03/20 20:15 08/04/20 06:15 Temperature 97.7 F 96.9 F Pulse Rate 86 106 H 94 Respiratory Rate 16 Blood Pressure 145/63 H 130/64 108/56 L Pulse Oximetry 98 94 Body Mass Index 16.2 Labs Results: 07/24/20 09:41 08/03/20 08:07 Labs: Laboratory Results - last 48 hr 08/02/20 08/03/20 08/03/20 17:02 06:25 08:07 Sodium 141 Potassium 4.0 Chloride 102 Carbon Dioxide 30 H Anion Gap 13 BUN 15 Creatinine 0.99 Estim Creat Clear Calc 63.2 Estimated GFR > 60 POC Glucose 190 H 141 H Fasting Glucose 153 H Calcium 9.0 Total Bilirubin 0.4 AST 11 ALT 20 Alkaline Phosphatase 96 Total Protein 6.2 L Albumin 4.1 Triglycerides 204 Cholesterol 163 D LDL Cholesterol, Calc 98 HDL Cholesterol 25 TSH 1.85 Valproic Acid 54.1 08/03/20 08/04/20 16:45 06:00 Sodium Potassium Chloride Carbon Dioxide Anion Gap BUN Creatinine Estim Creat Clear Calc Estimated GFR POC Glucose 220 H 152 H Fasting Glucose Calcium Total Bilirubin AST ALT Alkaline Phosphatase Total Protein Albumin Triglycerides Cholesterol LDL Cholesterol, Calc HDL Cholesterol TSH Valproic Acid Medications Medications Current Medications Generic Name Dose Route Start Last Admin Trade Name Freq PRN Reason Stop Dose Admin Acetaminophen 650 mg 07/23/20 16:06 Acetaminophen 325 Mg Tablet PO Q6H PRN Headache/Pain Mild Scale (1-3) Al Hydroxide/Mg Hydroxide 30 ml 07/23/20 16:06 Magnesium Hydrox/Alum Hydrox 30 Ml Oral.Susp PO Q6H PRN Heartburn/Nausea Atorvastatin Calcium 20 mg 07/22/20 21:00 08/03/20 22:30 Atorvastatin Calcium 20 Mg Tablet PO 20 mg BEDTIME LAUREN Administration Benztropine Mesylate 1 mg 07/22/20 21:00 08/04/20 08:43 Benztropine Mesylate 1 Mg Tablet PO 1 mg BID LAUREN Administration Clonazepam 0.5 mg 08/03/20 21:00 08/03/20 22:31 Clonazepam 0.5 Mg Tablet PO 0.5 mg BID LAUREN Administration Clozapine 300 mg 07/22/20 21:00 08/03/20 22:28 Clozapine 100 Mg Tablet PO 300 mg BEDTIME LAUREN Administration Divalproex Sodium 500 mg 07/25/20 21:00 08/04/20 08:44 Divalproex Sodium Er 500 Mg Tab.Er.24h PO 500 mg BID LAUREN Administration Gabapentin 100 mg 07/22/20 16:45 08/04/20 08:43 Gabapentin 100 Mg Capsule PO 100 mg TID LAUREN Administration Gabapentin 800 mg 07/22/20 16:45 08/03/20 22:29 Gabapentin 400 Mg Capsule PO 800 mg TID LAUREN Administration Glipizide 5 mg 07/22/20 16:45 08/04/20 08:44 Glipizide 5 Mg Tablet PO 5 mg DAILY LAUREN Administration Hydroxyzine HCl 25 mg 07/23/20 16:06 Hydroxyzine Hcl 25 Mg Tablet PO BEDTIME PRN Anxiety Magnesium Hydroxide 30 ml 07/23/20 16:06 Milk Of Magnesia 30 Ml Oral.Susp PO DAILY PRN Constipation Metformin HCl 1,000 mg 07/22/20 17:00 08/04/20 08:44 Metformin Hcl 1,000 Mg Tablet PO 1,000 mg BIDWM LAUREN Administration Metoprolol Succinate 25 mg 07/22/20 16:45 08/03/20 09:21 Metoprolol Succinate Er 25 Mg Tab.Er.24h PO 25 mg DAILY LAUREN Administration Protocol Trazodone HCl 200 mg 07/22/20 21:00 08/03/20 22:31 Trazodone Hcl 100 Mg Tablet PO 200 mg BEDTIME LAUREN Administration Allergies Allergies Allergy/AdvReac Type Severity Reaction Status Date / Time haloperidol [From Haldol] Allergy Intermediate Agitated Verified 07/22/20 18:01 lithium Allergy Intermediate Agitated Verified 07/22/20 18:01 oxcarbazepine Allergy Unknown RASH Verified 07/22/20 17:58 [From TRILEPTAL] From Prolixin Allergy Intermediate AKATHESIA Uncoded 07/22/20 17:58 Assessment & Plan Assessment & Plan (1) Schizoaffective disorder: Status: Acute Code(s): F25.9 - Schizoaffective disorder, unspecified (2) Suicidal thoughts: Status: Acute Code(s): R45.851 - Suicidal ideations Assessment and Plan: CK CLOZ LEVEL CONSIDER ANTIDEP TRIAL PT UNABLE TO GIVE CLEAR HX HAD ECT IN THE PAST Greater than 50% of the session was spent on counseling and/or coordination of care
[2020-08-04] MEDS: clonazePAM 0.5 MG TABLET PO ×2 (09:00→22:01)
[2020-08-04] MEDS: Gabapentin 400 MG CAPSULE 800 MG PO ×3 (14:34→22:02)
[2020-08-04 14:59] VITALS: BP 108/56; PULSE 94
[2020-08-04 17:22] LABS: Glucose, Whole Blood 205 mg/dL (60-115)
[2020-08-04 18:00] VITALS: BP 129/77; PULSE 95; TEMP 36.1
[2020-08-04] MEDS: Atorvastatin Calcium 20 MG TABLET PO (22:01)
[2020-08-04] MEDS: cloZAPine 100 MG TABLET 300 MG PO (22:02)
[2020-08-04] MEDS: traZODone HCL 100 MG TABLET 200 MG PO (22:02)
[2020-08-05 03:59] LABS: Folate 14.8 ng/mL (> or = 4.0); Vitamin B12 393 pg/mL (200-900)
[2020-08-05 06:15] VITALS: BP 116/68; PULSE 100; RESP 16; TEMP 35.9; O2SAT 94
[2020-08-05 06:27] LABS: Glucose, Whole Blood 156 mg/dL (60-115)
[2020-08-05] MEDS: Benztropine Mesylate 1 MG TABLET PO ×2 (09:06→22:21)
[2020-08-05] MEDS: glipiZIDE 5 MG TABLET PO (09:06)
[2020-08-05] MEDS: Gabapentin 100 MG CAPSULE PO ×3 (09:07→22:19)
[2020-08-05] MEDS: Gabapentin 400 MG CAPSULE 800 MG PO ×3 (09:07→22:19)
[2020-08-05 09:08] VITALS: BP 116/68; PULSE 100
[2020-08-05] MEDS: Divalproex Sodium ER 500 MG TAB.ER.24H PO ×2 (09:08→22:21)
[2020-08-05] MEDS: Metoprolol Succinate ER 25 MG TAB.ER.24H PO (09:08)
[2020-08-05] MEDS: metFORMIN HCl 1,000 MG TABLET 1000 MG PO ×2 (09:08→17:02)
[2020-08-05] MEDS: clonazePAM 0.5 MG TABLET PO ×2 (09:09→22:19)
[2020-08-05 09:13] LABS: Clozapine (Clozaril) 486 mcg/L; Norclozapine 127 mcg/L (25-400)
--- NOTE | 2020-08-05 14:57 | HO.PSYCHPN ---
Subjective Subjective Date of Service: 08/05/20 Reason For Visit: Schizoaffective DX Subjective Notes: Conditional Voluntary Interim History: patient flat with gradually diminishing anxiety limited verbal expression Medication Compliance: Yes Side effects from medications: No Attending Groups: Intermittent Review of Systems Constitutional: Denies headache(s) and Denies weakness Denies dizziness and Denies headache(s) Musculoskeletal: Denies numbness and Denies tingling Reports system reviewed and no additional complaints, except as documented, Denies Abnormal speech present, Denies dizziness, Denies headache(s), Denies numbness, Denies tingling and Denies weakness Mental Status Exam Mental Status Exam Patient Appearance: Appropriate Patient Orientation: Person, Place, Time and Situation Level of Consciousness: Awake Patient Behavior: Appropriate and Guarded Mood Description: Sad Affect Description: Blunted Patient Cognition Impaired: No Ability to Follow Directions: Good Speech Pattern: Impoverished, Monotone and Rambling Diagnostics Vital Signs (24Hr): Vital Signs - 24 hr 08/04/20 14:59 08/04/20 18:00 08/05/20 06:15 Temperature 96.9 F 96.7 F L Pulse Rate 94 95 100 Respiratory Rate 16 Blood Pressure 108/56 L 129/77 116/68 Pulse Oximetry 94 08/05/20 09:08 Temperature Pulse Rate 100 Respiratory Rate Blood Pressure 116/68 Pulse Oximetry Body Mass Index 16.2 Labs Results: 07/24/20 09:41 08/03/20 08:07 Labs: Laboratory Results - last 48 hr 07/31/20 08/03/20 08/03/20 07:49 08:07 16:45 POC Glucose 220 H Vitamin B12 393 Folate 14.8 Clozapine 486 Norclozapine 127 08/04/20 08/04/20 08/05/20 06:00 17:15 06:17 POC Glucose 152 H 205 H 156 H Vitamin B12 Folate Clozapine Norclozapine Medications Medications Current Medications Generic Name Dose Route Start Last Admin Trade Name Freq PRN Reason Stop Dose Admin Acetaminophen 650 mg 07/23/20 16:06 Acetaminophen 325 Mg Tablet PO Q6H PRN Headache/Pain Mild Scale (1-3) Al Hydroxide/Mg Hydroxide 30 ml 07/23/20 16:06 Magnesium Hydrox/Alum Hydrox 30 Ml Oral.Susp PO Q6H PRN Heartburn/Nausea Atorvastatin Calcium 20 mg 07/22/20 21:00 08/04/20 22:01 Atorvastatin Calcium 20 Mg Tablet PO 20 mg BEDTIME LAUREN Administration Benztropine Mesylate 1 mg 07/22/20 21:00 08/05/20 09:06 Benztropine Mesylate 1 Mg Tablet PO 1 mg BID LAUREN Administration Clonazepam 0.5 mg 08/03/20 21:00 08/05/20 09:09 Clonazepam 0.5 Mg Tablet PO 0.5 mg BID LAUREN Administration Clonazepam 0.5 mg 08/05/20 14:31 Clonazepam 0.5 Mg Tablet PO BID PRN anxiety/restlessness Clozapine 300 mg 07/22/20 21:00 08/04/20 22:02 Clozapine 100 Mg Tablet PO 300 mg BEDTIME LAUREN Administration Divalproex Sodium 500 mg 07/25/20 21:00 08/05/20 09:08 Divalproex Sodium Er 500 Mg Tab.Er.24h PO 500 mg BID LAUREN Administration Gabapentin 100 mg 07/22/20 16:45 08/05/20 14:33 Gabapentin 100 Mg Capsule PO 100 mg TID LAUREN Administration Gabapentin 800 mg 07/22/20 16:45 08/05/20 14:33 Gabapentin 400 Mg Capsule PO 800 mg TID LAUREN Administration Glipizide 5 mg 07/22/20 16:45 08/05/20 09:06 Glipizide 5 Mg Tablet PO 5 mg DAILY LAUREN Administration Hydroxyzine HCl 25 mg 07/23/20 16:06 Hydroxyzine Hcl 25 Mg Tablet PO BEDTIME PRN Anxiety Magnesium Hydroxide 30 ml 07/23/20 16:06 Milk Of Magnesia 30 Ml Oral.Susp PO DAILY PRN Constipation Metformin HCl 1,000 mg 07/22/20 17:00 08/05/20 09:08 Metformin Hcl 1,000 Mg Tablet PO 1,000 mg BIDWM LAUREN Administration Metoprolol Succinate 25 mg 07/22/20 16:45 08/05/20 09:08 Metoprolol Succinate Er 25 Mg Tab.Er.24h PO 25 mg DAILY LAUREN Administration Protocol Trazodone HCl 200 mg 07/22/20 21:00 08/04/20 22:02 Trazodone Hcl 100 Mg Tablet PO 200 mg BEDTIME LAUREN Administration Allergies Allergies Allergy/AdvReac Type Severity Reaction Status Date / Time haloperidol [From Haldol] Allergy Intermediate Agitated Verified 07/22/20 18:01 lithium Allergy Intermediate Agitated Verified 07/22/20 18:01 oxcarbazepine Allergy Unknown RASH Verified 07/22/20 17:58 [From TRILEPTAL] From Prolixin Allergy Intermediate AKATHESIA Uncoded 07/22/20 17:58 Assessment & Plan Assessment & Plan (1) Schizoaffective disorder: Status: Acute Code(s): F25.9 - Schizoaffective disorder, unspecified Assessment and Plan: if continue clozapine pending level seems improved with oral Depakote and clonazepam working with team regarding discharge planning consider respite (2) Suicidal thoughts: Status: Acute Code(s): R45.851 - Suicidal ideations Greater than 50% of the session was spent on counseling and/or coordination of care
[2020-08-05 16:15] VITALS: BP 148/77; PULSE 99; TEMP 36.6
[2020-08-05 17:05] LABS: Glucose, Whole Blood 177 mg/dL (60-115)
[2020-08-05] MEDS: traZODone HCL 100 MG TABLET 200 MG PO (22:21)
[2020-08-05] MEDS: Atorvastatin Calcium 20 MG TABLET PO (22:22)
[2020-08-05] MEDS: cloZAPine 100 MG TABLET 300 MG PO (22:22)
[2020-08-06 06:15] VITALS: BP 119/73; PULSE 89; RESP 18; TEMP 36; O2SAT 94
[2020-08-06 06:39] LABS: Glucose, Whole Blood 147 mg/dL (60-115)
[2020-08-06 09:01] LABS: Valproate 52.4 mcg/mL (50.0-100.0)
[2020-08-06] MEDS: glipiZIDE 5 MG TABLET PO (09:12)
[2020-08-06] MEDS: Gabapentin 400 MG CAPSULE 800 MG PO ×3 (09:12→22:08)
[2020-08-06] MEDS: metFORMIN HCl 1,000 MG TABLET 1000 MG PO ×2 (09:12→16:53)
[2020-08-06] MEDS: Divalproex Sodium ER 500 MG TAB.ER.24H PO ×2 (09:12→22:09)
[2020-08-06 09:13] VITALS: BP 119/73; PULSE 89
[2020-08-06] MEDS: Metoprolol Succinate ER 25 MG TAB.ER.24H PO (09:13)
[2020-08-06] MEDS: clonazePAM 0.5 MG TABLET PO ×2 (09:13→22:09)
[2020-08-06] MEDS: Benztropine Mesylate 1 MG TABLET PO ×2 (09:13→22:09)
[2020-08-06] MEDS: Gabapentin 100 MG CAPSULE PO ×3 (09:14→22:09)
[2020-08-06 09:21] LABS: Estimated Average Glucose 183 mg/dL
[2020-08-06 18:00] VITALS: BP 116/78; PULSE 104; TEMP 36.3
[2020-08-06 22:04] LABS: Glucose, Whole Blood 203 mg/dL (60-115)
[2020-08-06] MEDS: traZODone HCL 100 MG TABLET 200 MG PO (22:09)
[2020-08-06] MEDS: cloZAPine 100 MG TABLET 300 MG PO (22:09)
[2020-08-06] MEDS: Atorvastatin Calcium 20 MG TABLET PO (22:09)
[2020-08-07 06:35] VITALS: BP 113/57; PULSE 87; RESP 16; TEMP 36.6; O2SAT 96
[2020-08-07 06:58] LABS: Glucose, Whole Blood 188 mg/dL (60-115)
[2020-08-07] MEDS: Divalproex Sodium ER 500 MG TAB.ER.24H PO ×2 (08:42→22:39)
[2020-08-07] MEDS: Gabapentin 100 MG CAPSULE PO ×3 (08:42→22:40)
[2020-08-07] MEDS: Benztropine Mesylate 1 MG TABLET PO ×2 (08:42→22:40)
[2020-08-07] MEDS: glipiZIDE 5 MG TABLET PO (08:42)
[2020-08-07] MEDS: metFORMIN HCl 1,000 MG TABLET 1000 MG PO ×2 (08:43→16:48)
[2020-08-07] MEDS: Gabapentin 400 MG CAPSULE 800 MG PO ×3 (08:43→22:40)
[2020-08-07] MEDS: clonazePAM 0.5 MG TABLET PO ×2 (08:45→22:40)
[2020-08-07 08:51] VITALS: BP 126/70; PULSE 104
[2020-08-07] MEDS: Metoprolol Succinate ER 25 MG TAB.ER.24H PO (08:51)
[2020-08-07 16:32] VITALS: BP 123/70; PULSE 103; TEMP 36.4
--- NOTE | 2020-08-07 16:36 | P.PNPSI_ITS ---
Subjective Subjective Date of Service: 08/07/20 Reason For Visit: Schizoaffective DX Subjective Notes: Conditional Voluntary Interim History: patient calmer showing gradual improvement is talking about transitioning to respite Medication Compliance: Yes Side effects from medications: No Review of Systems Constitutional: Denies headache(s) and Denies weakness Denies dizziness and Denies headache(s) Musculoskeletal: Denies numbness and Denies tingling Reports system reviewed and no additional complaints, except as documented, Denies Abnormal speech present, Denies dizziness, Denies headache(s), Denies numbness, Denies tingling and Denies weakness Mental Status Exam Mental Status Exam Patient Appearance: Appropriate Patient Orientation: Person, Place, Time and Situation Level of Consciousness: Awake Patient Behavior: Appropriate and Guarded Mood Description: Blunted, Flat and Sad Affect Description: Blunted Patient Cognition Impaired: No Ability to Follow Directions: Good Speech Pattern: Impoverished and Monotone Delusions: Not Present Thought Content: positive for [place] Depressive Symptoms: Increased Anxiety, Increased Irritability and Difficulty Concentrating Judgement: Fair Diagnostics Vital Signs (24Hr): Vital Signs - 24 hr 08/06/20 18:00 08/07/20 06:35 08/07/20 08:51 Temperature 97.3 F 97.8 F Pulse Rate 104 H 87 104 H Respiratory Rate 16 Blood Pressure 116/78 113/57 L 126/70 Pulse Oximetry 96 08/07/20 16:32 Temperature 97.6 F Pulse Rate 103 H Respiratory Rate Blood Pressure 123/70 Pulse Oximetry Body Mass Index 16.2 Labs Results: 07/24/20 09:41 08/03/20 08:07 Labs: Laboratory Results - last 48 hr 08/05/20 08/06/20 08/06/20 16:45 06:34 08:12 POC Glucose 177 H 147 H Estimat Average Glucose Hemoglobin A1c % Valproic Acid 52.4 08/06/20 08/06/20 08/07/20 08:12 22:00 06:00 POC Glucose 203 H 188 H Estimat Average Glucose 183 Hemoglobin A1c % 8.0 Valproic Acid Medications Medications Current Medications Generic Name Dose Route Start Last Admin Trade Name Freq PRN Reason Stop Dose Admin Acetaminophen 650 mg 07/23/20 16:06 Acetaminophen 325 Mg Tablet PO Q6H PRN Headache/Pain Mild Scale (1-3) Al Hydroxide/Mg Hydroxide 30 ml 07/23/20 16:06 Magnesium Hydrox/Alum Hydrox 30 Ml Oral.Susp PO Q6H PRN Heartburn/Nausea Atorvastatin Calcium 20 mg 07/22/20 21:00 08/06/20 22:09 Atorvastatin Calcium 20 Mg Tablet PO 20 mg BEDTIME LAUREN Administration Benztropine Mesylate 1 mg 07/22/20 21:00 08/07/20 08:42 Benztropine Mesylate 1 Mg Tablet PO 1 mg BID LAUREN Administration Clonazepam 0.5 mg 08/03/20 21:00 08/07/20 08:45 Clonazepam 0.5 Mg Tablet PO 0.5 mg BID LAUREN Administration Clonazepam 0.5 mg 08/05/20 14:31 Clonazepam 0.5 Mg Tablet PO BID PRN anxiety/restlessness Clozapine 300 mg 07/22/20 21:00 08/06/20 22:09 Clozapine 100 Mg Tablet PO 300 mg BEDTIME LAUREN Administration Divalproex Sodium 500 mg 07/25/20 21:00 08/07/20 08:42 Divalproex Sodium Er 500 Mg Tab.Er.24h PO 500 mg BID LAUREN Administration Gabapentin 100 mg 07/22/20 16:45 08/07/20 14:43 Gabapentin 100 Mg Capsule PO 100 mg TID LAUREN Administration Gabapentin 800 mg 07/22/20 16:45 08/07/20 14:43 Gabapentin 400 Mg Capsule PO 800 mg TID LAUREN Administration Glipizide 5 mg 07/22/20 16:45 08/07/20 08:42 Glipizide 5 Mg Tablet PO 5 mg DAILY LAUREN Administration Hydroxyzine HCl 25 mg 07/23/20 16:06 Hydroxyzine Hcl 25 Mg Tablet PO BEDTIME PRN Anxiety Magnesium Hydroxide 30 ml 07/23/20 16:06 Milk Of Magnesia 30 Ml Oral.Susp PO DAILY PRN Constipation Metformin HCl 1,000 mg 07/22/20 17:00 08/07/20 08:43 Metformin Hcl 1,000 Mg Tablet PO 1,000 mg BIDWM LAUREN Administration Metoprolol Succinate 25 mg 07/22/20 16:45 08/07/20 08:51 Metoprolol Succinate Er 25 Mg Tab.Er.24h PO 25 mg DAILY LAUREN Administration Protocol Trazodone HCl 200 mg 07/22/20 21:00 08/06/20 22:09 Trazodone Hcl 100 Mg Tablet PO 200 mg BEDTIME LAUREN Administration Allergies Allergies Allergy/AdvReac Type Severity Reaction Status Date / Time haloperidol [From Haldol] Allergy Intermediate Agitated Verified 07/22/20 18:01 lithium Allergy Intermediate Agitated Verified 07/22/20 18:01 oxcarbazepine Allergy Unknown RASH Verified 07/22/20 17:58 [From TRILEPTAL] From Prolixin Allergy Intermediate AKATHESIA Uncoded 07/22/20 17:58 Assessment & Plan Assessment & Plan (1) Schizoaffective disorder: Status: Acute Code(s): F25.9 - Schizoaffective disorder, unspecified (2) Suicidal thoughts: Status: Acute Code(s): R45.851 - Suicidal ideations Assessment and Plan: continue clozapine Depakote clonazepam discharge planning Greater than 50% of the session was spent on counseling and/or coordination of care Patient educated on: medication risk/benefits Reason for contiued inpatient stay Substantial Risk for: harm to self
[2020-08-07 16:50] LABS: Glucose, Whole Blood 201 mg/dL (60-115)
[2020-08-07] MEDS: cloZAPine 100 MG TABLET 300 MG PO (22:39)
[2020-08-07] MEDS: Atorvastatin Calcium 20 MG TABLET PO (22:39)
[2020-08-07] MEDS: traZODone HCL 100 MG TABLET 200 MG PO (22:39)
[2020-08-08 06:13] LABS: Glucose, Whole Blood 179 mg/dL (60-115)
[2020-08-08 06:25] VITALS: BP 107/51; PULSE 93; RESP 18; TEMP 36.1; O2SAT 94
[2020-08-08] MEDS: metFORMIN HCl 1,000 MG TABLET 1000 MG PO ×2 (08:56→16:44)
[2020-08-08] MEDS: Gabapentin 400 MG CAPSULE 800 MG PO ×3 (08:56→22:55)
[2020-08-08] MEDS: clonazePAM 0.5 MG TABLET PO ×2 (08:56→22:55)
[2020-08-08 08:57] VITALS: BP 107/57; PULSE 93
[2020-08-08] MEDS: Gabapentin 100 MG CAPSULE PO ×3 (08:57→22:55)
[2020-08-08] MEDS: Metoprolol Succinate ER 25 MG TAB.ER.24H PO (08:57)
[2020-08-08] MEDS: Benztropine Mesylate 1 MG TABLET PO ×2 (08:57→22:55)
[2020-08-08] MEDS: glipiZIDE 5 MG TABLET PO (08:58)
[2020-08-08] MEDS: Divalproex Sodium ER 500 MG TAB.ER.24H PO ×2 (08:58→22:52)
[2020-08-08 17:07] LABS: Glucose, Whole Blood 265 mg/dL (60-115)
--- NOTE | 2020-08-08 20:49 | P.PNPSI_ITS ---
Subjective Subjective Date of Service: 08/08/20 Reason For Visit: Schizoaffective DX Subjective Notes: Conditional Voluntary Interim History: patient calm cooperative less complaints of restlessness denies active self-harm agreeable to transitioning to respite Medication Compliance: Yes Side effects from medications: No Review of Systems Constitutional: Denies headache(s) and Denies weakness Denies dizziness and Denies headache(s) Musculoskeletal: Denies numbness and Denies tingling Reports system reviewed and no additional complaints, except as documented, Denies Abnormal speech present, Denies dizziness, Denies headache(s), Denies numbness, Denies tingling and Denies weakness Mental Status Exam Mental Status Exam Patient Appearance: Appropriate Patient Orientation: Person, Place, Time and Situation Level of Consciousness: Awake Patient Behavior: Appropriate Mood Description: Blunted and Flat Affect Description: Blunted Patient Cognition Impaired: No Ability to Follow Directions: Good Speech Pattern: Appropriate and Monotone Memory Description: Intact Delusions: Not Present Thought Content: positive for [place] Depressive Symptoms: Increased Anxiety and Difficulty Concentrating Judgement: Fair Diagnostics Vital Signs (24Hr): Vital Signs - 24 hr 08/08/20 06:25 08/08/20 08:57 Temperature 96.9 F Pulse Rate 93 93 Respiratory Rate 18 Blood Pressure 107/51 L 107/57 L Pulse Oximetry 94 Body Mass Index 16.2 Labs Results: 07/24/20 09:41 08/03/20 08:07 Labs: Laboratory Results - last 48 hr 08/06/20 08/07/20 08/07/20 22:00 06:00 16:44 POC Glucose 203 H 188 H 201 H 08/08/20 08/08/20 06:09 16:47 POC Glucose 179 H 265 H Medications Medications Current Medications Generic Name Dose Route Start Last Admin Trade Name Freq PRN Reason Stop Dose Admin Acetaminophen 650 mg 07/23/20 16:06 Acetaminophen 325 Mg Tablet PO Q6H PRN Headache/Pain Mild Scale (1-3) Al Hydroxide/Mg Hydroxide 30 ml 07/23/20 16:06 Magnesium Hydrox/Alum Hydrox 30 Ml Oral.Susp PO Q6H PRN Heartburn/Nausea Atorvastatin Calcium 20 mg 07/22/20 21:00 08/07/20 22:39 Atorvastatin Calcium 20 Mg Tablet PO 20 mg BEDTIME LAUREN Administration Benztropine Mesylate 1 mg 07/22/20 21:00 08/08/20 08:57 Benztropine Mesylate 1 Mg Tablet PO 1 mg BID LAUREN Administration Clonazepam 0.5 mg 08/03/20 21:00 08/08/20 08:56 Clonazepam 0.5 Mg Tablet PO 0.5 mg BID LAUREN Administration Clonazepam 0.5 mg 08/05/20 14:31 Clonazepam 0.5 Mg Tablet PO BID PRN anxiety/restlessness Clozapine 300 mg 07/22/20 21:00 08/07/20 22:39 Clozapine 100 Mg Tablet PO 300 mg BEDTIME LAUREN Administration Divalproex Sodium 500 mg 07/25/20 21:00 08/08/20 08:58 Divalproex Sodium Er 500 Mg Tab.Er.24h PO 500 mg BID LAUREN Administration Gabapentin 100 mg 07/22/20 16:45 08/08/20 14:13 Gabapentin 100 Mg Capsule PO 100 mg TID LAUREN Administration Gabapentin 800 mg 07/22/20 16:45 08/08/20 14:12 Gabapentin 400 Mg Capsule PO 800 mg TID LAUREN Administration Glipizide 5 mg 07/22/20 16:45 08/08/20 08:58 Glipizide 5 Mg Tablet PO 5 mg DAILY LAUREN Administration Hydroxyzine HCl 25 mg 07/23/20 16:06 Hydroxyzine Hcl 25 Mg Tablet PO BEDTIME PRN Anxiety Magnesium Hydroxide 30 ml 07/23/20 16:06 Milk Of Magnesia 30 Ml Oral.Susp PO DAILY PRN Constipation Metformin HCl 1,000 mg 07/22/20 17:00 08/08/20 16:44 Metformin Hcl 1,000 Mg Tablet PO 1,000 mg BIDWM LAUREN Administration Metoprolol Succinate 25 mg 07/22/20 16:45 08/08/20 08:57 Metoprolol Succinate Er 25 Mg Tab.Er.24h PO 25 mg DAILY LAUREN Administration Protocol Trazodone HCl 200 mg 07/22/20 21:00 08/07/20 22:39 Trazodone Hcl 100 Mg Tablet PO 200 mg BEDTIME LAUREN Administration Allergies Allergies Allergy/AdvReac Type Severity Reaction Status Date / Time haloperidol [From Haldol] Allergy Intermediate Agitated Verified 07/22/20 18:01 lithium Allergy Intermediate Agitated Verified 07/22/20 18:01 oxcarbazepine Allergy Unknown RASH Verified 07/22/20 17:58 [From TRILEPTAL] From Prolixin Allergy Intermediate AKATHESIA Uncoded 07/22/20 17:58 Assessment & Plan Assessment & Plan (1) Schizoaffective disorder: Status: Acute Code(s): F25.9 - Schizoaffective disorder, unspecified Assessment and Plan: continue Clozaril Depakote clonazepam discharge planning referral to respite improving (2) Suicidal thoughts: Status: Acute Code(s): R45.851 - Suicidal ideations Greater than 50% of the session was spent on counseling and/or coordination of care
[2020-08-08] MEDS: traZODone HCL 100 MG TABLET 200 MG PO (22:52)
[2020-08-08] MEDS: cloZAPine 100 MG TABLET 300 MG PO (22:54)
[2020-08-08] MEDS: Atorvastatin Calcium 20 MG TABLET PO (22:54)
[2020-08-08 22:58] VITALS: BP 142/79; PULSE 107; TEMP 36.2
[2020-08-09 06:05] VITALS: BP 105/53; PULSE 93; RESP 16; TEMP 36.4; O2SAT 95
[2020-08-09 06:17] LABS: Glucose, Whole Blood 171 mg/dL (60-115)
[2020-08-09] MEDS: Divalproex Sodium ER 500 MG TAB.ER.24H PO ×2 (08:50→22:12)
[2020-08-09] MEDS: metFORMIN HCl 1,000 MG TABLET 1000 MG PO ×2 (08:50→16:42)
[2020-08-09] MEDS: Gabapentin 100 MG CAPSULE PO ×3 (08:51→22:12)
[2020-08-09] MEDS: clonazePAM 0.5 MG TABLET PO ×2 (08:51→22:12)
[2020-08-09] MEDS: glipiZIDE 5 MG TABLET PO (08:52)
[2020-08-09] MEDS: Gabapentin 400 MG CAPSULE 800 MG PO ×3 (08:52→22:12)
[2020-08-09] MEDS: Benztropine Mesylate 1 MG TABLET PO ×2 (08:52→22:16)
[2020-08-09 08:58] VITALS: BP 105/53; PULSE 93
[2020-08-09 18:00] VITALS: BP 144/70; PULSE 110; TEMP 36.3
[2020-08-09] MEDS: Atorvastatin Calcium 20 MG TABLET PO (22:12)
[2020-08-09] MEDS: traZODone HCL 100 MG TABLET 200 MG PO (22:12)
[2020-08-09] MEDS: cloZAPine 100 MG TABLET 300 MG PO (22:12)
[2020-08-10 06:00] VITALS: BP 117/67; PULSE 95; TEMP 36.2
[2020-08-10 06:18] LABS: Glucose, Whole Blood 187 mg/dL (60-115)
[2020-08-10 08:25] VITALS: BP 117/67; PULSE 95
[2020-08-10] MEDS: Metoprolol Succinate ER 25 MG TAB.ER.24H PO (08:25)
[2020-08-10] MEDS: Benztropine Mesylate 1 MG TABLET PO ×2 (08:26→22:21)
[2020-08-10] MEDS: Divalproex Sodium ER 500 MG TAB.ER.24H PO ×2 (08:26→22:21)
[2020-08-10] MEDS: glipiZIDE 5 MG TABLET PO (08:26)
[2020-08-10] MEDS: Gabapentin 400 MG CAPSULE 800 MG PO ×3 (08:27→22:21)
[2020-08-10] MEDS: clonazePAM 0.5 MG TABLET PO ×2 (08:27→22:22)
[2020-08-10] MEDS: metFORMIN HCl 1,000 MG TABLET 1000 MG PO ×2 (08:27→17:06)
[2020-08-10] MEDS: Gabapentin 100 MG CAPSULE PO ×3 (08:28→22:22)
--- NOTE | 2020-08-10 12:05 | HO.PSYCHPN ---
Subjective Subjective Date of Service: 08/10/20 Reason For Visit: Schizoaffective DX Interim History: patient calm and pleasant;cooperative not feeling restless, denies active self-harm; He is feeling ready for d/c to respite Review of Systems Constitutional: Denies headache(s) and Denies weakness Denies dizziness and Denies headache(s) Musculoskeletal: Denies numbness and Denies tingling Reports system reviewed and no additional complaints, except as documented, Denies Abnormal speech present, Denies dizziness, Denies headache(s), Denies numbness, Denies tingling and Denies weakness Mental Status Exam Mental Status Exam Patient Appearance: Appropriate Patient Orientation: Person, Place, Time and Situation Level of Consciousness: Awake Patient Behavior: Appropriate and Cooperative Mood Description: Calm, Blunted and Flat Affect Description: Calm and Blunted Patient Cognition Impaired: No Ability to Follow Directions: Good Speech Pattern: Appropriate and Monotone Memory Description: Intact Thought Process: Goal Oriented Thought Content: positive for [place] Oriented Judgement: Good Diagnostics Vital Signs (24Hr): Vital Signs - 24 hr 08/09/20 18:00 08/10/20 06:00 08/10/20 08:25 Temperature 97.4 F 97.2 F Pulse Rate 110 H 95 95 Blood Pressure 144/70 H 117/67 117/67 Body Mass Index 16.2 Labs Results: 07/24/20 09:41 08/03/20 08:07 Labs: Laboratory Results - last 48 hr 08/08/20 08/09/20 08/10/20 16:47 06:10 06:13 POC Glucose 265 H 171 H 187 H Medications Medications Current Medications Generic Name Dose Route Start Last Admin Trade Name Treyq PRN Reason Stop Dose Admin Acetaminophen 650 mg 07/23/20 16:06 Acetaminophen 325 Mg Tablet PO Q6H PRN Headache/Pain Mild Scale (1-3) Al Hydroxide/Mg Hydroxide 30 ml 07/23/20 16:06 Magnesium Hydrox/Alum Hydrox 30 Ml Oral.Susp PO Q6H PRN Heartburn/Nausea Atorvastatin Calcium 20 mg 07/22/20 21:00 08/09/20 22:12 Atorvastatin Calcium 20 Mg Tablet PO 20 mg BEDTIME LAUREN Administration Benztropine Mesylate 1 mg 07/22/20 21:00 08/10/20 08:26 Benztropine Mesylate 1 Mg Tablet PO 1 mg BID LAUREN Administration Clonazepam 0.5 mg 08/05/20 14:31 Clonazepam 0.5 Mg Tablet PO BID PRN anxiety/restlessness Clonazepam 0.5 mg 08/08/20 21:00 08/10/20 08:27 Clonazepam 0.5 Mg Tablet PO 0.5 mg BID LAUREN Administration Clozapine 300 mg 07/22/20 21:00 08/09/20 22:12 Clozapine 100 Mg Tablet PO 300 mg BEDTIME LAUREN Administration Divalproex Sodium 500 mg 07/25/20 21:00 08/10/20 08:26 Divalproex Sodium Er 500 Mg Tab.Er.24h PO 500 mg BID LAUREN Administration Gabapentin 100 mg 07/22/20 16:45 08/10/20 08:28 Gabapentin 100 Mg Capsule PO 100 mg TID LAUREN Administration Gabapentin 800 mg 07/22/20 16:45 08/10/20 08:27 Gabapentin 400 Mg Capsule PO 800 mg TID LAUREN Administration Glipizide 5 mg 07/22/20 16:45 08/10/20 08:26 Glipizide 5 Mg Tablet PO 5 mg DAILY LAUREN Administration Hydroxyzine HCl 25 mg 07/23/20 16:06 Hydroxyzine Hcl 25 Mg Tablet PO BEDTIME PRN Anxiety Magnesium Hydroxide 30 ml 07/23/20 16:06 Milk Of Magnesia 30 Ml Oral.Susp PO DAILY PRN Constipation Metformin HCl 1,000 mg 07/22/20 17:00 08/10/20 08:27 Metformin Hcl 1,000 Mg Tablet PO 1,000 mg BIDWM LAUREN Administration Metoprolol Succinate 25 mg 07/22/20 16:45 08/10/20 08:25 Metoprolol Succinate Er 25 Mg Tab.Er.24h PO 25 mg DAILY LAUREN Administration Protocol Trazodone HCl 200 mg 07/22/20 21:00 08/09/20 22:12 Trazodone Hcl 100 Mg Tablet PO 200 mg BEDTIME LAUREN Administration Allergies Allergies Allergy/AdvReac Type Severity Reaction Status Date / Time haloperidol [From Haldol] Allergy Intermediate Agitated Verified 07/22/20 18:01 lithium Allergy Intermediate Agitated Verified 07/22/20 18:01 oxcarbazepine Allergy Unknown RASH Verified 07/22/20 17:58 [From TRILEPTAL] From Prolixin Allergy Intermediate AKATHESIA Uncoded 07/22/20 17:58 Assessment & Plan Assessment & Plan (1) Schizoaffective disorder: Status: Acute Code(s): F25.9 - Schizoaffective disorder, unspecified (2) Suicidal thoughts: Status: Acute Code(s): R45.851 - Suicidal ideations Assessment and Plan: pt improving, compliant with meds continue Clozaril, Depakote,clonazepam preparing for dischargel to respite Greater than 50% of the session was spent on counseling and/or coordination of care Patient educated on: medication risk/benefits Guardian/Caregiver educated on: medication risk/benefits Informed Consent: further education needed Reason for contiued inpatient stay Substantial Risk for: harm to self, inability to function and rapid decompensation
[2020-08-10 16:33] VITALS: BP 122/71; PULSE 106; TEMP 36.7
[2020-08-10 17:18] LABS: Glucose, Whole Blood 192 mg/dL (60-115)
[2020-08-10] MEDS: Atorvastatin Calcium 20 MG TABLET PO (22:21)
[2020-08-10] MEDS: traZODone HCL 100 MG TABLET 200 MG PO (22:21)
[2020-08-10] MEDS: cloZAPine 100 MG TABLET 300 MG PO (22:22)
[2020-08-11 06:00] VITALS: BP 108/57; PULSE 104; RESP 16; TEMP 36.7; O2SAT 99
[2020-08-11 06:17] LABS: Glucose, Whole Blood 189 mg/dL (60-115)
[2020-08-11] MEDS: Benztropine Mesylate 1 MG TABLET PO ×2 (08:05→22:07)
[2020-08-11] MEDS: glipiZIDE 5 MG TABLET PO (08:05)
[2020-08-11] MEDS: metFORMIN HCl 1,000 MG TABLET 1000 MG PO ×2 (08:05→16:58)
[2020-08-11] MEDS: clonazePAM 0.5 MG TABLET PO ×2 (08:05→22:07)
[2020-08-11] MEDS: Divalproex Sodium ER 500 MG TAB.ER.24H PO ×2 (08:06→22:07)
[2020-08-11] MEDS: Gabapentin 100 MG CAPSULE PO ×3 (08:06→22:07)
[2020-08-11] MEDS: Gabapentin 400 MG CAPSULE 800 MG PO ×3 (08:06→22:07)
[2020-08-11 08:07] VITALS: BP 108/57; PULSE 104
[2020-08-11] MEDS: Metoprolol Succinate ER 25 MG TAB.ER.24H PO (08:07)
[2020-08-11 09:21] LABS: Creatinine Clr Calc Pharmacy 63.9; Estimated Glomerular Filt Rate > 60
[2020-08-11 12:03] LABS: Glucose, Whole Blood 219 mg/dL (60-115)
--- NOTE | 2020-08-11 16:50 | HO.PSYCHPN ---
Subjective Subjective Date of Service: 08/11/20 Reason For Visit: Schizoaffective DX Interim History: patient continues to be calm and pleasant;cooperative. No restlessness, denies active self-harm; He is feeling ready for d/c to respite Review of Systems Constitutional: Denies headache(s) and Denies weakness Denies dizziness and Denies headache(s) Musculoskeletal: Denies numbness and Denies tingling Reports system reviewed and no additional complaints, except as documented, Denies Abnormal speech present, Denies dizziness, Denies headache(s), Denies numbness, Denies tingling and Denies weakness Mental Status Exam Mental Status Exam Patient Appearance: Appropriate Patient Orientation: Person, Place, Time and Situation Level of Consciousness: Awake Patient Behavior: Appropriate and Cooperative Mood Description: Calm, Blunted and Flat Affect Description: Calm and Blunted Patient Cognition Impaired: No Ability to Follow Directions: Good Speech Pattern: Appropriate and Monotone Memory Description: Intact Thought Process: Goal Oriented Thought Content: positive for Goal Oriented Judgement: Good Diagnostics Vital Signs (24Hr): Vital Signs - 24 hr 08/11/20 06:00 08/11/20 08:07 Temperature 98.0 F Pulse Rate 104 H 104 H Respiratory Rate 16 Blood Pressure 108/57 L 108/57 L Pulse Oximetry 99 Body Mass Index 16.2 Labs Results: 07/24/20 09:41 08/11/20 08:14 Labs: Laboratory Results - last 48 hr 08/10/20 08/10/20 08/11/20 06:13 17:04 06:13 Creatinine Estim Creat Clear Calc Estimated GFR POC Glucose 187 H 192 H 189 H 08/11/20 08/11/20 08:14 11:56 Creatinine 0.98 Estim Creat Clear Calc 63.9 Estimated GFR > 60 POC Glucose 219 H Medications Medications Current Medications Generic Name Dose Route Start Last Admin Trade Name Freq PRN Reason Stop Dose Admin Acetaminophen 650 mg 07/23/20 16:06 Acetaminophen 325 Mg Tablet PO Q6H PRN Headache/Pain Mild Scale (1-3) Al Hydroxide/Mg Hydroxide 30 ml 07/23/20 16:06 Magnesium Hydrox/Alum Hydrox 30 Ml Oral.Susp PO Q6H PRN Heartburn/Nausea Atorvastatin Calcium 20 mg 07/22/20 21:00 08/10/20 22:21 Atorvastatin Calcium 20 Mg Tablet PO 20 mg BEDTIME LAUREN Administration Benztropine Mesylate 1 mg 07/22/20 21:00 08/11/20 08:05 Benztropine Mesylate 1 Mg Tablet PO 1 mg BID LAUREN Administration Clonazepam 0.5 mg 08/08/20 21:00 08/11/20 08:05 Clonazepam 0.5 Mg Tablet PO 0.5 mg BID LAUREN Administration Clozapine 300 mg 07/22/20 21:00 08/10/20 22:22 Clozapine 100 Mg Tablet PO 300 mg BEDTIME LAUREN Administration Divalproex Sodium 500 mg 07/25/20 21:00 08/11/20 08:06 Divalproex Sodium Er 500 Mg Tab.Er.24h PO 500 mg BID LAUREN Administration Gabapentin 100 mg 07/22/20 16:45 08/11/20 15:02 Gabapentin 100 Mg Capsule PO 100 mg TID LAUREN Administration Gabapentin 800 mg 07/22/20 16:45 08/11/20 15:02 Gabapentin 400 Mg Capsule PO 800 mg TID LAUREN Administration Glipizide 5 mg 07/22/20 16:45 08/11/20 08:05 Glipizide 5 Mg Tablet PO 5 mg DAILY LAUREN Administration Hydroxyzine HCl 25 mg 07/23/20 16:06 Hydroxyzine Hcl 25 Mg Tablet PO BEDTIME PRN Anxiety Magnesium Hydroxide 30 ml 07/23/20 16:06 Milk Of Magnesia 30 Ml Oral.Susp PO DAILY PRN Constipation Metformin HCl 1,000 mg 07/22/20 17:00 08/11/20 08:05 Metformin Hcl 1,000 Mg Tablet PO 1,000 mg BIDWM LAUREN Administration Metoprolol Succinate 25 mg 07/22/20 16:45 08/11/20 08:07 Metoprolol Succinate Er 25 Mg Tab.Er.24h PO 25 mg DAILY LAUREN Administration Protocol Trazodone HCl 200 mg 07/22/20 21:00 08/10/20 22:21 Trazodone Hcl 100 Mg Tablet PO 200 mg BEDTIME LAUREN Administration Allergies Allergies Allergy/AdvReac Type Severity Reaction Status Date / Time haloperidol [From Haldol] Allergy Intermediate Agitated Verified 07/22/20 18:01 lithium Allergy Intermediate Agitated Verified 07/22/20 18:01 oxcarbazepine Allergy Unknown RASH Verified 07/22/20 17:58 [From TRILEPTAL] From Prolixin Allergy Intermediate AKATHESIA Uncoded 07/22/20 17:58 Assessment & Plan Assessment & Plan (1) Schizoaffective disorder: Status: Acute Code(s): F25.9 - Schizoaffective disorder, unspecified (2) Suicidal thoughts: Status: Acute Code(s): R45.851 - Suicidal ideations Assessment and Plan: pt improving, compliant with meds continue Clozaril, Depakote,clonazepam preparing for dischargel to respite Greater than 50% of the session was spent on counseling and/or coordination of care Patient educated on: diagnosis, medication risk/benefits and therapeutic strategies Informed Consent: understands Reason for contiued inpatient stay Substantial Risk for: inability to function and rapid decompensation
[2020-08-11 17:23] VITALS: BP 150/75; PULSE 107; TEMP 36
[2020-08-11 17:44] LABS: Glucose, Whole Blood 270 mg/dL (60-115)
[2020-08-11] MEDS: cloZAPine 100 MG TABLET 300 MG PO (22:07)
[2020-08-11] MEDS: Atorvastatin Calcium 20 MG TABLET PO (22:08)
[2020-08-11] MEDS: traZODone HCL 100 MG TABLET 200 MG PO (22:08)
[2020-08-12 06:05] VITALS: BP 120/76; PULSE 94; RESP 16; TEMP 36.1; O2SAT 94
[2020-08-12 06:42] LABS: Glucose, Whole Blood 190 mg/dL (60-115)
[2020-08-12] MEDS: glipiZIDE 5 MG TABLET PO (08:47)
[2020-08-12] MEDS: Gabapentin 400 MG CAPSULE 800 MG PO ×2 (08:47→14:32)
[2020-08-12] MEDS: Divalproex Sodium ER 500 MG TAB.ER.24H PO (08:47)
[2020-08-12 08:48] VITALS: BP 120/76; PULSE 94
[2020-08-12] MEDS: metFORMIN HCl 1,000 MG TABLET 1000 MG PO (08:48)
[2020-08-12] MEDS: Metoprolol Succinate ER 25 MG TAB.ER.24H PO (08:48)
[2020-08-12] MEDS: clonazePAM 0.5 MG TABLET PO (08:48)
[2020-08-12] MEDS: Gabapentin 100 MG CAPSULE PO ×2 (08:48→14:32)
[2020-08-12] MEDS: Benztropine Mesylate 1 MG TABLET PO (08:49)
[2020-08-12] MEDS: Milk of Magnesia 30 ML ORAL.SUSP PO (09:27)
[2020-08-12 12:02] LABS: Glucose, Whole Blood 204 mg/dL (60-115)
--- NOTE | 2020-08-12 22:47 | P.DS_ITS ---
DS: Providers Provider Date of admission: 07/23/20 15:59 Primary care physician: Unknown Physician DS: Diagnosis Discharge Diagnosis (1) Schizoaffective disorder: Status: Acute (2) Suicidal thoughts: Status: Resolved DS: Medications Discharge Medications Home Medications: Home Medications Medication Instructions Recorded Confirmed lancets [FreeStyle Lancets] 07/22/20 07/22/20 Previous Rx's Medication Instructions Recorded atorvastatin 1 tab PO DAILY 30 Days #30 tab 08/12/20 benztropine 1 tab PO BID #60 tab 08/12/20 clonazepam 0.5 mg PO BID 30 Days #60 tab 08/12/20 clozapine 300 mg PO BEDTIME #45 tab 08/12/20 divalproex 500 mg PO BID 30 Days #60 tab 08/12/20 gabapentin 1 cap PO TID #90 cap 08/12/20 gabapentin 1 tab PO TID #90 tab 08/12/20 glipizide 1 tab PO DAILY #30 tab 08/12/20 lorazepam 1 mg PO BID PRN #30 tab 08/12/20 metformin 1 tab PO BID #60 tab 08/12/20 metoprolol succinate 1 tab PO DAILY #30 cap 08/12/20 trazodone 200 mg PO BEDTIME #60 tab 08/12/20 Discharge Plan Discharge Patient Disposition: Xfer Other Referrals: Keri DEL ROSARIO [Other] (Fax- [phone]) Luma Hernandez, therapist ([facility]) [Other] - 08/13/20 10:15 am (Telehealth) Sher Hernández MD [Physician] - 08/22/20 2:30 pm (telehealth over phone) Chris Goins NP [Referring] - 09/03/20 3:20 pm (Telehealth) Discharge Medications: New divalproex 500 mg Tablet Extended Release 24 Hr 500 mg PO BID 30 Days Qty: 60 RF: 0 clonazepam 0.5 mg Tablet 0.5 mg PO BID 30 Days Qty: 60 RF: 0 Continued (DME) lancets [FreeStyle Lancets] 28 gauge misc topical DAILY RF: 0 atorvastatin 20 mg tablet 1 tab PO DAILY 30 Days Qty: 30 RF: 0 gabapentin 800 mg tablet 1 tab PO TID Qty: 90 RF: 0 trazodone 100 mg tablet 200 mg PO BEDTIME Qty: 60 RF: 0 metformin 1,000 mg tablet 1 tab PO BID Qty: 60 RF: 0 benztropine 1 mg tablet 1 tab PO BID Qty: 60 RF: 0 gabapentin 100 mg capsule 1 cap PO TID Qty: 90 RF: 0 metoprolol succinate 25 mg tablet extended release 24 hr 1 tab PO DAILY Qty: 30 RF: 0 glipizide 5 mg tablet 1 tab PO DAILY Qty: 30 RF: 0 Changed clozapine 100 mg tablet 300 mg PO BEDTIME Qty: 45 RF: 1 lorazepam 1 mg tablet 1 mg PO BID PRN (Reason: Anxiety) Qty: 30 RF: 1 Discontinued divalproex 250 mg tablet extended release 24 hr 250 mg PO BID RF: 0 Discharge Orders: Discharge Order (Routine); Ordered 08/12/20 Ordered By: Dwayne De La Rosa Diet: diabetic diet Activity on Discharge: As tolerated Stand Alone Forms: Community Support Discharge Date/Time: 08/12/20 16:20 Visit Report Forms: Patient Portal Discharge page Care Plan Goals: stable mood no self harming thoughts improved anxiety/restlessness Health Concerns: schizoaffective disorder depression anxiety restlessness diabetes Plan of Treatment: clozaril depakote klonapin cogentin gabapentin respite therapy Mental Status Exam Mental Status Exam Patient Appearance: Appropriate Patient Orientation: Person, Place, Time and Situation Level of Consciousness: Awake Patient Behavior: Appropriate and Cooperative Mood Description: Calm, Blunted and Flat Affect Description: Calm and Blunted Patient Cognition Impaired: No Ability to Follow Directions: Good Speech Pattern: Appropriate and Monotone Memory Description: Intact Thought Process: Goal Oriented Thought Content: positive for Goal Oriented Judgement: Good DS: Summary Hospital Course Hospital Course: HPI Chief Complaint: Schizoaffective DX Sources of Information: patient interviewed, chart reviewed and crisis/core team assessment reviewed HPI Narrative: The patient is a 44-year-old male admitted with increasing depression anxiety thoughts of self-harm. Who with recently had thoughts to hang himself. More has been more depressed with his mother who has had worsening Alzheimer's. He had been relatively stable for number of years has been on clozapine patient sees Chris TURNER RN. Patient reports feeling increasingly restless agitated the patient was referred through the crisis team after being evaluated he Past Psychiatric History: history of recurrence psychiatric hospitalizations with psychosis and depression history of multiple psychiatric hospitalizations Medical Evaluation Reviewed: Yes [facility] Medical History (Updated 07/22/20 @ 16:08 by Trish Marley NP) Diabetes 1.5, managed as type 2 Family History: mother with dementia Social History: patient was raised by his parents his father is his mother is in shelter he is single no children he is not employed never Substance History: none Trauma History: no trauma history hospital course patient mood on a conditional voluntary was isolative flat withdrawn depressed with recent self-harming thoughts and behavior. Had recently had thoughts to hang himself at home. The patient's complaint has been restlessness but not necessarily an urge to move it apparently has been a complaint of his for many years who the patient with not tremulous his mood with a prior this depressed at times and initially he had thoughts that he would be better off . There are no clear psychotic symptoms he was quite blank with poverty of content . Patient's depkote was increased to 500 b.i.d. clozapine was kept at 300 mg gabapentin was continued 300 3 times a day and because of anxiety about her restlessness clonazepam was added 0.5 mg the patient very gradually changed over time becoming somewhat for year of expression he him out of his room more and was more socially seen. With he was quite isolated home and eventually the thought was to have him transition to respite eventually the patient assented patient gradually showed a dover expression future orientation. we did discuss the possibility of an antidepressant trial Time Spent with Patient Time attestation: Total time spent providing and/or coordinating discharge services:
== END 2020-08-12 16:20 | disposition other institution (70) | DRG 885 ==
LOC: HO.ED 07-23 15:34 → HO.PM5 07-23 16:00
PROVIDERS: Nurse Practitioner Family; Psychiatry & Neurology Psychiatry; Admitting Provider Psychiatry & Neurology Psychiatry; Emergency Provider Internal Medicine; Visit Provider Psychiatry & Neurology Psychiatry
DX: F25.9 Schizoaffective disorder, unspecified (principal); R45.851 Suicidal ideations; E11.9 Type 2 diabetes mellitus without complications; Z20.828 Contact with and (suspected) exposure to other viral communicable diseases; Z23 Encounter for immunization; Z79.84 Long term (current) use of oral hypoglycemic drugs; Z79.899 Other long term (current) drug therapy
CPT/HCPCS: 36415; 80048; 80053; 80061; 80076; 80159; 80164; 80307; 80320; 82565; 82607; 82746; 82947; 83036; 84443; 85025; 87635; 90471; 90686; 90792; 93005; 99232; 99239; 99285; G0480

== ENCOUNTER 2020-10-30 09:29 | Outpatient (REF) | payer MEDICARE, MEDICAID, SELFPAY ==
[2020-10-30 09:57] LABS: MANUAL DIFF FLAG NO
[2020-10-30 10:06] LABS: Basophils Absolute Auto 0.1 X10*3/uL (0.0-0.2); Basophils Percent Auto 0.9 % (0-2); Eosinophils Absolute Auto 0.5 X10*3/uL (0.0-0.4); Eosinophils Percent Auto 6.3 % (0-4); Hematocrit 41.2 % (42-52); Hemoglobin 13.3 g/dl (14.0-18.0); Imm Gran Abs Auto 0.04 X10*3/uL (0.00-0.03); Imm Gran Pct Auto 0.5 % (0.0-0.4); Lymphocytes Absolute Auto 2.2 X10*3/uL (1.2-4.9); Lymphocytes Percent Auto 25.4 % (20-40); Mean Corpuscular HGB Conc 32.3 g/dl (31.0-36.0); Mean Corpuscular Hemoglobin 27.4 pg (27.0-33.0); Mean Corpuscular Volume 84.9 fL (80-98); Mean Platelet Volume 9.8 fL (9.4-12.4); Monocytes Absolute Auto 0.7 X10*3/uL (0.1-1.2); Monocytes Percent Auto 8.2 % (2-11); Neutrophils Percent Auto 58.7 % (45-73); Platelet Count 245 X10*3/uL (160-400); Red Blood Count 4.85 X10*6/uL (4.60-5.80); Red Cell Distribution Width 13.3 % (11.0-16.0); White Blood Count 8.5 X10*3/uL (4.8-10.8)
== END 2020-10-30 09:30 | disposition home or self-care (01) ==
LOC: HO.10HDLR 09:29
PROVIDERS: Visit Provider Clinical Nurse Specialist Psychiatric/Mental Health, Adult
DX: Z79.899 Other long term (current) drug therapy (principal)
CPT/HCPCS: 36415; 85025

== ENCOUNTER 2020-12-03 10:57 | Outpatient (REF) | payer MEDICARE, MEDICAID, SELFPAY ==
[2020-12-03 12:17] LABS: MANUAL DIFF FLAG NO
[2020-12-03 12:27] LABS: Basophils Absolute Auto 0.1 X10*3/uL (0.0-0.2); Basophils Percent Auto 0.8 % (0-2); Eosinophils Absolute Auto 0.6 X10*3/uL (0.0-0.4); Hematocrit 44.1 % (42-52); Hemoglobin 13.7 g/dl (14.0-18.0); Imm Gran Abs Auto 0.05 X10*3/uL (0.00-0.03); Imm Gran Pct Auto 0.6 % (0.0-0.4); Lymphocytes Absolute Auto 1.9 X10*3/uL (1.2-4.9); Lymphocytes Percent Auto 22.1 % (20-40); Mean Corpuscular HGB Conc 31.1 g/dl (31.0-36.0); Mean Corpuscular Hemoglobin 26.8 pg (27.0-33.0); Mean Corpuscular Volume 86.3 fL (80-98); Monocytes Absolute Auto 0.8 X10*3/uL (0.1-1.2); Monocytes Percent Auto 8.8 % (2-11); Neutrophils Absolute Auto 5.3 X10*3/uL (2.0-8.3); Neutrophils Percent Auto 60.7 % (45-73); Platelet Count 241 X10*3/uL (160-400); Red Blood Count 5.11 X10*6/uL (4.60-5.80); Red Cell Distribution Width 12.9 % (11.0-16.0); White Blood Count 8.7 X10*3/uL (4.8-10.8)
== END 2020-12-03 10:58 | disposition home or self-care (01) ==
LOC: HO.10HDL 10:57
PROVIDERS: Visit Provider Clinical Nurse Specialist Psychiatric/Mental Health, Adult
DX: Z79.899 Other long term (current) drug therapy (principal)
CPT/HCPCS: 36415; 85025

== ENCOUNTER 2021-01-01 12:33 | Outpatient (REF) | payer MEDICARE, MEDICAID, SELFPAY ==
[2021-01-01 13:57] LABS: MANUAL DIFF FLAG NO
[2021-01-01 14:05] LABS: Basophils Absolute Auto 0.1 X10*3/uL (0.0-0.2); Eosinophils Absolute Auto 0.3 X10*3/uL (0.0-0.4); Hematocrit 41.4 % (42-52); Hemoglobin 13.2 g/dl (14.0-18.0); Imm Gran Abs Auto 0.06 X10*3/uL (0.00-0.03); Lymphocytes Absolute Auto 1.9 X10*3/uL (1.2-4.9); Mean Corpuscular HGB Conc 31.9 g/dl (31.0-36.0); Mean Corpuscular Hemoglobin 27.3 pg (27.0-33.0); Mean Corpuscular Volume 85.7 fL (80-98); Mean Platelet Volume 10.2 fL (9.4-12.4); Monocytes Absolute Auto 0.6 X10*3/uL (0.1-1.2); Monocytes Percent Auto 9.5 % (2-11); Neutrophils Absolute Auto 3.3 X10*3/uL (2.0-8.3); Neutrophils Percent Auto 53.5 % (45-73); Platelet Count 240 X10*3/uL (160-400); Red Blood Count 4.83 X10*6/uL (4.60-5.80); Red Cell Distribution Width 13.2 % (11.0-16.0); White Blood Count 6.2 X10*3/uL (4.8-10.8)
== END 2021-01-01 12:34 | disposition home or self-care (01) ==
LOC: HO.10HDLR 12:33
PROVIDERS: Visit Provider Clinical Nurse Specialist Psychiatric/Mental Health, Adult
DX: Z79.899 Other long term (current) drug therapy (principal)
CPT/HCPCS: 36415; 85025

== ENCOUNTER 2021-01-29 12:09 | Outpatient (REF) | payer MEDICARE, MEDICAID, SELFPAY ==
[2021-01-29 12:56] LABS: MANUAL DIFF FLAG NO
[2021-01-29 13:06] LABS: Basophils Absolute Auto 0.1 X10*3/uL (0.0-0.2); Basophils Percent Auto 0.8 % (0-2); Eosinophils Absolute Auto 0.3 X10*3/uL (0.0-0.4); Eosinophils Percent Auto 3.1 % (0-4); Hematocrit 43.4 % (42-52); Hemoglobin 14.1 g/dl (14.0-18.0); Imm Gran Abs Auto 0.06 X10*3/uL (0.00-0.03); Imm Gran Pct Auto 0.7 % (0.0-0.4); Lymphocytes Absolute Auto 1.9 X10*3/uL (1.2-4.9); Mean Corpuscular HGB Conc 32.5 g/dl (31.0-36.0); Mean Corpuscular Hemoglobin 27.7 pg (27.0-33.0); Mean Corpuscular Volume 85.3 fL (80-98); Mean Platelet Volume 9.9 fL (9.4-12.4); Monocytes Absolute Auto 0.7 X10*3/uL (0.1-1.2); Monocytes Percent Auto 7.9 % (2-11); Neutrophils Absolute Auto 5.8 X10*3/uL (2.0-8.3); Neutrophils Percent Auto 65.5 % (45-73); Platelet Count 224 X10*3/uL (160-400); Red Blood Count 5.09 X10*6/uL (4.60-5.80); Red Cell Distribution Width 13.1 % (11.0-16.0); White Blood Count 8.8 X10*3/uL (4.8-10.8)
[2021-01-29 13:24] LABS: Alanine Aminotransferase 20 U/L (0-40); Albumin Level 4.5 g/dL (3.5-5.0); Alkaline Phosphatase 118 U/L (39-117); Anion Gap 14 (12-20); Aspartate Amino Transferase 16 U/L (5-37); Bilirubin Total 0.4 mg/dL (0.0-1.0); Blood Urea Nitrogen 15 mg/dL (9-16); Calcium 9.7 mg/dL (8.4-10.2); Carbon Dioxide 27 mmol/L (22-29); Chloride 104 mmol/L (96-108); Cholesterol 154 mg/dL; Estimated Glomerular Filt Rate > 60; Glucose Random 247 mg/dL (60-115); HDL Cholesterol 22 mg/dL; LDL Cholesterol Calculated 97 mg/dl; Potassium 4.1 mmol/L (3.3-5.1); Sodium 141 mmol/L (135-145); Total Protein 6.7 g/dL (6.5-8.0); Triglycerides 178 mg/dL
[2021-01-29 13:43] LABS: Thyroid Stimulating Hormone 1.18 uIU/mL (0.32-4.0); Vitamin D 25-OH Total 25.2 ng/mL (>30)
[2021-01-29 13:45] LABS: Vitamin B12 564 pg/mL (200-900)
== END 2021-01-29 12:10 | disposition home or self-care (01) ==
LOC: HO.LABR 12:09
PROVIDERS: Absent Provider Family Medicine; PCP Family Medicine; Visit Provider Clinical Nurse Specialist Psychiatric/Mental Health, Adult
DX: F20.9 Schizophrenia, unspecified (principal); Z79.899 Other long term (current) drug therapy
CPT/HCPCS: 36415; 80053; 80061; 82306; 82607; 84443; 85025

== ENCOUNTER 2021-02-04 18:30 | Emergency (ER) | payer MEDICARE, MEDICAID, SELFPAY ==
--- NOTE | 2021-02-04 18:38 | PC.NURSE ---
abdoiminal pain worse today. [phone] nanette visiting nurse
[2021-02-04 19:03] VITALS: BP 140/89; BP 155/91; PULSE 118; PULSE 119; RESP 18; TEMP 35.9; O2SAT 98; BMI 36.8
[2021-02-05 00:44] LABS: MANUAL DIFF FLAG NO
[2021-02-05 00:46] LABS: Basophils Absolute Auto 0.1 X10*3/uL (0.0-0.2); Basophils Percent Auto 0.5 % (0-2); Eosinophils Absolute Auto 0.3 X10*3/uL (0.0-0.4); Eosinophils Percent Auto 2.9 % (0-4); Hematocrit 44.1 % (42-52); Hemoglobin 14.5 g/dl (14.0-18.0); Imm Gran Abs Auto 0.05 X10*3/uL (0.00-0.03); Imm Gran Pct Auto 0.5 % (0.0-0.4); Lymphocytes Absolute Auto 2.1 X10*3/uL (1.2-4.9); Lymphocytes Percent Auto 21.4 % (20-40); Mean Corpuscular HGB Conc 32.9 g/dl (31.0-36.0); Mean Corpuscular Hemoglobin 27.7 pg (27.0-33.0); Mean Corpuscular Volume 84.3 fL (80-98); Mean Platelet Volume 9.3 fL (9.4-12.4); Monocytes Absolute Auto 0.7 X10*3/uL (0.1-1.2); Monocytes Percent Auto 6.9 % (2-11); Neutrophils Absolute Auto 6.6 X10*3/uL (2.0-8.3); Neutrophils Percent Auto 67.8 % (45-73); Platelet Count 223 X10*3/uL (160-400); Red Blood Count 5.23 X10*6/uL (4.60-5.80); Red Cell Distribution Width 13.2 % (11.0-16.0); White Blood Count 9.7 X10*3/uL (4.8-10.8)
--- NOTE | 2021-02-05 00:46 | PC.NURSE ---
Labs obtained, pt unable to provide urine sample.
--- NOTE | 2021-02-05 00:54 | ED_ITS ---
HPI - Abdominal Pain General Chief Complaint: Abdominal Pain Stated Complaint: ABD PAIN X1 MONTH Time Seen by Provider: 02/05/21 00:20 Source: patient Mode of arrival: ambulatory Limitations: no limitations History of Present Illness HPI narrative: Patient comes emergency room complaining of abdominal pain for over a month. Patient denies nausea vomiting or diarrhea. Denies UTI symptoms. Patient states that he has abdominal pain in a 12 in radius around his umbilicus . When asked to describe the pain, patient states that he is unable to describe it. MD elicited complaint: abdominal pain Related Data Home Medications Medication Instructions Recorded Confirmed lancets [FreeStyle Lancets] 07/22/20 07/22/20 Previous Rx's Medication Instructions Recorded atorvastatin 1 tab PO DAILY 30 Days #30 tab 08/12/20 benztropine 1 tab PO BID #60 tab 08/12/20 clonazepam 0.5 mg PO BID 30 Days #60 tab 08/12/20 clozapine 300 mg PO BEDTIME #45 tab 08/12/20 divalproex 500 mg PO BID 30 Days #60 tab 08/12/20 gabapentin 1 cap PO TID #90 cap 08/12/20 gabapentin 1 tab PO TID #90 tab 08/12/20 glipizide 1 tab PO DAILY #30 tab 08/12/20 lorazepam 1 mg PO BID PRN #30 tab 08/12/20 metformin 1 tab PO BID #60 tab 08/12/20 metoprolol succinate 1 tab PO DAILY #30 cap 08/12/20 trazodone 200 mg PO BEDTIME #60 tab 08/12/20 omeprazole 20 mg PO DAILY #10 cap 02/05/21 Allergies Allergy/AdvReac Type Severity Reaction Status Date / Time haloperidol [From Haldol] Allergy Intermediate Agitated Verified 02/04/21 19:02 lithium Allergy Intermediate Agitated Verified 02/04/21 19:02 oxcarbazepine Allergy Unknown RASH Verified 02/04/21 19:02 [From TRILEPTAL] From Prolixin Allergy Intermediate AKATHESIA Uncoded 02/04/21 19:02 Review of Systems Review of Systems Constitutional : No Weight loss, No Fever, No Chills, No Night Sweats, No Fatigue, No Malaise ENT/Mouth : No Hearing loss, No Ear Pain, No Nasal Congestion, No Sinus Pain, No Hoarseness, No sore throat, No Rhinorrhea, No Swallowing Difficulty Eyes: No Eye Pain, No Swelling, No Redness, No Foreign Body, No Discharge, No Vision Changes Cardiovascular : No Chest Pain, No SOB, No Dyspnea on Exertion, No Orthopnea, No Edema, No Palpitations Respiratory : No Cough, No Sputum, No Wheezing, No Smoke Exposure, No Dyspnea Gastrointestinal : No Nausea, No Vomiting, No Diarrhea, No Constipation, complaining of dull abdominal pain, constant for over a month. No Hematochezia, No Melena Genitourinary : no irregular bleeding, No Dysuria, No Urinary Frequency, No Hematuria, No Urinary Incontinence, No Urgency, No Flank Pain, No Urinary Flow Changes, No Hesitancy Musculoskeletal : No joint pain, No Myalgias, No Joint Swelling Skin : No Skin Lesions, No rash Neuro : No Weakness, No Numbness, No Paresthesias, No Loss of Consciousness, No Dizziness, No Headache Psych : No Anxiety/Panic, No Depression, No SI/HI/AH/VH, No Social Issues, Heme/Lymph: No Bruising, No Bleeding,No Lymphadenopathy Endocrine : No Polyuria, No Polydipsia, No Temperature Intolerance Physical Exam Vital Signs: Vital Signs: Last Vital Signs Temp 96.6 F L 02/04/21 19:03 Pulse 98 02/05/21 02:57 Resp 16 02/05/21 02:57 BP 141/91 H 02/05/21 02:57 Pulse Ox 98 02/05/21 02:57 Body Mass Index 36.8 Appearance: Alert. Oriented X3. No acute distress. Eyes: Pupils equal, round and reactive to light. ENT: Pharynx normal. Neck: Normal inspection. Neck supple. No lymph nodes noted. No crepitus CVS: Normal heart rate and rhythm. Pulses normal. Normal S1 and S2 Respiratory: No respiratory distress. Breath sounds normal. No Wheezing. No rales Abdomen: Soft and nontender. No rigidity. No distention. Skin: Skin warm and dry. Normal skin color. Normal skin turgor. Extremities: No lower extremity edema. No lower extremity edema. No Lacerations. No Rash Neuro: Oriented X 3. No motor deficit. No sensory deficit. Moving all extermities. No slurred speech. Course Course Course Narrative: Patient reports abdominal pain improvement. Patient states he has no abdominal pain at the moment. Patient was p.o. challenged, no nausea vomiting diarrhea or abdominal pain. I discussed the labs with the patient, no acute findings. Patient ready for discharge MDM - Abdominal Pain Lab Data Result diagrams: 02/05/21 00:35 02/05/21 00:35 Labs: Lab Results 02/05/21 02/05/21 Range/Units 00:35 00:35 WBC 9.7 (4.8-10.8) X10*3/uL RBC 5.23 (4.60-5.80) X10*6/uL Hgb 14.5 (14.0-18.0) g/dl Hct 44.1 (42-52) % MCV 84.3 (80-98) fL MCH 27.7 (27.0-33.0) pg MCHC 32.9 (31.0-36.0) g/dl RDW 13.2 (11.0-16.0) % Plt Count 223 (160-400) X10*3/uL MPV 9.3 L (9.4-12.4) fL Immature Gran % (Auto) 0.5 H (0.0-0.4) % Neut % (Auto) 67.8 (45-73) % Lymph % (Auto) 21.4 (20-40) % Carroll % (Auto) 6.9 (2-11) % Eos % (Auto) 2.9 (0-4) % Baso % (Auto) 0.5 (0-2) % Lymph # (Auto) 2.1 (1.2-4.9) X10*3/uL Carroll # (Auto) 0.7 (0.1-1.2) X10*3/uL Eos # (Auto) 0.3 (0.0-0.4) X10*3/uL Baso # (Auto) 0.1 (0.0-0.2) X10*3/uL Abs Immat Gran (auto) 0.05 H (0.00-0.03) X10*3/uL Absolute Neuts (auto) 6.6 (2.0-8.3) X10*3/uL Absolute Nucleated RBC 0.000 (0.0-0.012) X10*3/uL Nucleated RBC % (auto) 0.0 (0.0-0.2) /100WBC Sodium 139 (135-145) mmol/L Potassium 4.0 (3.3-5.1) mmol/L Chloride 100 (96-108) mmol/L Carbon Dioxide 28 (22-29) mmol/L Anion Gap 15 (12-20) BUN 16 (9-16) mg/dL Creatinine 1.05 (0.5-1.4) mg/dL Estim Creat Clear Calc 106.8 Estimated GFR > 60 Random Glucose 202 H (60-115) mg/dL Calcium 9.4 (8.4-10.2) mg/dL Total Bilirubin 0.6 (0.0-1.0) mg/dL Direct Bilirubin 0.2 (0.0-0.5) mg/dL AST 21 (5-37) U/L ALT 30 (0-40) U/L Alkaline Phosphatase 110 (39-117) U/L Total Protein 6.8 (6.5-8.0) g/dL Albumin 4.6 (3.5-5.0) g/dL Lipase 14 (8-78) U/L Discharge Plan Discharge Clinical Impression: Abdominal pain Qualifiers: Abdominal location: generalized Qualified Code(s): R10.84 - Generalized a bdominal pain Patient Disposition: Home, Self-Care Instructions: Abdominal Pain (ED) Additional Instructions: Please follow-up with your primary care physician tomorrow. If you have any worsening or new symptoms, please return to the emergency room or call 911 Prescriptions: New omeprazole 20 mg capsule,delayed release(DR/EC) 20 mg PO DAILY Qty: 10 RF: 0 No Action (DME) lancets [FreeStyle Lancets] 28 gauge misc topical DAILY RF: 0 divalproex 500 mg Tablet Extended Release 24 Hr 500 mg PO BID 30 Days Qty: 60 RF: 0 clonazepam 0.5 mg Tablet 0.5 mg PO BID 30 Days Qty: 60 RF: 0 atorvastatin 20 mg tablet 1 tab PO DAILY 30 Days Qty: 30 RF: 0 clozapine 100 mg tablet 300 mg PO BEDTIME Qty: 45 RF: 1 gabapentin 800 mg tablet 1 tab PO TID Qty: 90 RF: 0 trazodone 100 mg tablet 200 mg PO BEDTIME Qty: 60 RF: 0 metformin 1,000 mg tablet 1 tab PO BID Qty: 60 RF: 0 benztropine 1 mg tablet 1 tab PO BID Qty: 60 RF: 0 gabapentin 100 mg capsule 1 cap PO TID Qty: 90 RF: 0 metoprolol succinate 25 mg tablet extended release 24 hr 1 tab PO DAILY Qty: 30 RF: 0 lorazepam 1 mg tablet 1 mg PO BID PRN (Reason: Anxiety) Qty: 30 RF: 1 glipizide 5 mg tablet 1 tab PO DAILY Qty: 30 RF: 0 PMFSH Past Medical History Medical History Diabetes 1.5, managed as type 2 Social History Social History Household Members: None Housing: Apartment Do you presently have visiting nurse or other home services: Yes Alcohol intake: never Advance Directives: No Advance Directives Information Provided: No service: No Sexual orientation: Straight/Heterosexual
[2021-02-05] MEDS: Dicyclomine HCl 10 MG CAPSULE PO (01:09)
[2021-02-05] MEDS: Magnesium Hydrox/Alum Hydrox 30 ML ORAL.SUSP PO (01:10)
[2021-02-05] MEDS: Lidocaine HCl Viscous 2 % 15 ML SOLUTION MUCOUS MEM (01:10)
--- NOTE | 2021-02-05 01:10 | PC.NURSE ---
Medicated per MAR.
[2021-02-05 01:18] LABS: Alanine Aminotransferase 30 U/L (0-40); Albumin Level 4.6 g/dL (3.5-5.0); Alkaline Phosphatase 110 U/L (39-117); Anion Gap 15 (12-20); Aspartate Amino Transferase 21 U/L (5-37); Bilirubin Direct 0.2 mg/dL (0.0-0.5); Bilirubin Total 0.6 mg/dL (0.0-1.0); Blood Urea Nitrogen 16 mg/dL (9-16); Calcium 9.4 mg/dL (8.4-10.2); Carbon Dioxide 28 mmol/L (22-29); Chloride 100 mmol/L (96-108); Creatinine Clr Calc Pharmacy 106.8; Estimated Glomerular Filt Rate > 60; Glucose Random 202 mg/dL (60-115); Lipase 14 U/L (8-78); Sodium 139 mmol/L (135-145); Total Protein 6.8 g/dL (6.5-8.0)
--- NOTE | 2021-02-05 01:49 | PC.NURSE ---
Multiple attempts at obtaining UA unsuccessful. Pt states he doesn't need to go. This RN discussing the importance of ruling out a UTI, pt continues to state that he doesn't need to urinate. Pt asking this RN, will I go to [facility] soon? Pt explaining that in July, he was sent to [facility] and felt better afterwards. Pt denies SI/HI/depression. Pt states that he lives at home with a roommate, pt states he feels safe at home. Pt states that he needs to go to [facility] for restlessness. Throughout duration of ED visit, pt resting comfortably on stretcher in NAD. aware.
[2021-02-05 02:57] VITALS: BP 141/91; PULSE 98; RESP 16; O2SAT 98
--- NOTE | 2021-02-05 02:58 | PC.NURSE ---
Pt requesting a sandwich, provided with a ham sandwich per request. VSS. Awaiting DC paperwork.
== END 2021-02-05 04:25 | disposition home or self-care (01) ==
PROVIDERS: Internal Medicine; Emergency Provider Emergency Medicine; PCP Family Medicine
DX: R10.84 Generalized abdominal pain (principal); E13.9 Other specified diabetes mellitus without complications; Z79.84 Long term (current) use of oral hypoglycemic drugs
CPT/HCPCS: 36415; 80048; 80076; 83690; 85025; 99283; 99284

== ENCOUNTER 2021-02-25 10:23 | Outpatient (REF) | payer MEDICARE, MEDICAID, SELFPAY ==
[2021-02-25 11:38] LABS: MANUAL DIFF FLAG NO
[2021-02-25 11:51] LABS: Basophils Absolute Auto 0.1 X10*3/uL (0.0-0.2); Basophils Percent Auto 0.9 % (0-2); Eosinophils Absolute Auto 0.4 X10*3/uL (0.0-0.4); Eosinophils Percent Auto 5.3 % (0-4); Hematocrit 42.3 % (42-52); Hemoglobin 13.7 g/dl (14.0-18.0); Imm Gran Abs Auto 0.04 X10*3/uL (0.00-0.03); Imm Gran Pct Auto 0.5 % (0.0-0.4); Lymphocytes Absolute Auto 1.9 X10*3/uL (1.2-4.9); Mean Corpuscular HGB Conc 32.4 g/dl (31.0-36.0); Mean Corpuscular Hemoglobin 27.7 pg (27.0-33.0); Mean Corpuscular Volume 85.5 fL (80-98); Mean Platelet Volume 9.9 fL (9.4-12.4); Monocytes Absolute Auto 0.7 X10*3/uL (0.1-1.2); Monocytes Percent Auto 9.4 % (2-11); Neutrophils Absolute Auto 4.7 X10*3/uL (2.0-8.3); Neutrophils Percent Auto 59.9 % (45-73); Platelet Count 234 X10*3/uL (160-400); Red Blood Count 4.95 X10*6/uL (4.60-5.80); Red Cell Distribution Width 12.9 % (11.0-16.0); White Blood Count 7.9 X10*3/uL (4.8-10.8)
== END 2021-02-25 10:24 | disposition home or self-care (01) ==
LOC: HO.LABR 10:23
PROVIDERS: PCP Family Medicine; Visit Provider Clinical Nurse Specialist Psychiatric/Mental Health, Adult
DX: Z79.899 Other long term (current) drug therapy (principal)
CPT/HCPCS: 36415; 85025

== ENCOUNTER 2021-03-27 10:08 | Outpatient (REF) | payer MEDICARE, MEDICAID, SELFPAY ==
[2021-03-27 10:51] LABS: MANUAL DIFF FLAG NO
[2021-03-27 11:06] LABS: Basophils Absolute Auto 0.1 X10*3/uL (0.0-0.2); Basophils Percent Auto 0.9 % (0-2); Eosinophils Absolute Auto 0.6 X10*3/uL (0.0-0.4); Eosinophils Percent Auto 7.3 % (0-4); Hemoglobin 13.9 g/dl (14.0-18.0); Imm Gran Abs Auto 0.08 X10*3/uL (0.00-0.03); Lymphocytes Percent Auto 26.1 % (20-40); Mean Corpuscular HGB Conc 33.1 g/dl (31.0-36.0); Mean Corpuscular Hemoglobin 27.6 pg (27.0-33.0); Mean Corpuscular Volume 83.3 fL (80-98); Monocytes Absolute Auto 0.6 X10*3/uL (0.1-1.2); Monocytes Percent Auto 8.4 % (2-11); Neutrophils Absolute Auto 4.3 X10*3/uL (2.0-8.3); Neutrophils Percent Auto 56.3 % (45-73); Platelet Count 222 X10*3/uL (160-400); Red Blood Count 5.04 X10*6/uL (4.60-5.80); Red Cell Distribution Width 12.6 % (11.0-16.0); White Blood Count 7.7 X10*3/uL (4.8-10.8)
== END 2021-03-27 10:09 | disposition home or self-care (01) ==
LOC: HO.LABR 10:08
PROVIDERS: PCP Family Medicine; Visit Provider Clinical Nurse Specialist Psychiatric/Mental Health, Adult
DX: Z79.899 Other long term (current) drug therapy (principal)
CPT/HCPCS: 36415; 85025

== ENCOUNTER 2021-04-29 10:38 | Outpatient (REF) | payer MEDICARE, MEDICAID, SELFPAY ==
[2021-04-29 14:00] LABS: MANUAL DIFF FLAG NO
[2021-04-29 14:05] LABS: Basophils Absolute Auto 0.1 X10*3/uL (0.0-0.2); Basophils Percent Auto 0.8 % (0-2); Eosinophils Absolute Auto 0.5 X10*3/uL (0.0-0.4); Eosinophils Percent Auto 6.2 % (0-4); Hematocrit 42.8 % (42-52); Hemoglobin 13.8 g/dl (14.0-18.0); Imm Gran Abs Auto 0.06 X10*3/uL (0.00-0.03); Imm Gran Pct Auto 0.8 % (0.0-0.4); Lymphocytes Absolute Auto 2.5 X10*3/uL (1.2-4.9); Lymphocytes Percent Auto 32.8 % (20-40); Mean Corpuscular HGB Conc 32.2 g/dl (31.0-36.0); Mean Corpuscular Hemoglobin 27.3 pg (27.0-33.0); Mean Corpuscular Volume 84.8 fL (80-98); Mean Platelet Volume 10.1 fL (9.4-12.4); Monocytes Absolute Auto 0.7 X10*3/uL (0.1-1.2); Monocytes Percent Auto 8.9 % (2-11); Neutrophils Absolute Auto 3.8 X10*3/uL (2.0-8.3); Neutrophils Percent Auto 50.5 % (45-73); Platelet Count 219 X10*3/uL (160-400); Red Blood Count 5.05 X10*6/uL (4.60-5.80); White Blood Count 7.6 X10*3/uL (4.8-10.8)
== END 2021-04-29 10:39 | disposition home or self-care (01) ==
LOC: HO.10HDL 10:38
PROVIDERS: Internal Medicine; Visit Provider Clinical Nurse Specialist Psychiatric/Mental Health, Adult
DX: Z79.899 Other long term (current) drug therapy (principal)
CPT/HCPCS: 36415; 85025

== ENCOUNTER 2021-05-22 10:17 | Outpatient (REF) | payer MEDICARE, MEDICAID, SELFPAY ==
[2021-05-22 13:51] LABS: MANUAL DIFF FLAG NO
[2021-05-22 14:01] LABS: Basophils Absolute Auto 0.1 X10*3/uL (0.0-0.2); Basophils Percent Auto 0.9 % (0-2); Eosinophils Absolute Auto 0.6 X10*3/uL (0.0-0.4); Eosinophils Percent Auto 8.2 % (0-4); Hematocrit 43.4 % (42-52); Imm Gran Abs Auto 0.05 X10*3/uL (0.00-0.03); Imm Gran Pct Auto 0.7 % (0.0-0.4); Lymphocytes Absolute Auto 2.2 X10*3/uL (1.2-4.9); Lymphocytes Percent Auto 32.7 % (20-40); Mean Corpuscular HGB Conc 32.3 g/dl (31.0-36.0); Mean Corpuscular Hemoglobin 27.7 pg (27.0-33.0); Mean Corpuscular Volume 85.9 fL (80-98); Mean Platelet Volume 9.9 fL (9.4-12.4); Monocytes Absolute Auto 0.6 X10*3/uL (0.1-1.2); Neutrophils Absolute Auto 3.4 X10*3/uL (2.0-8.3); Neutrophils Percent Auto 49.5 % (45-73); Platelet Count 217 X10*3/uL (160-400); Red Blood Count 5.05 X10*6/uL (4.60-5.80); Red Cell Distribution Width 12.8 % (11.0-16.0); White Blood Count 6.9 X10*3/uL (4.8-10.8)
[2021-05-22 14:38] LABS: Alanine Aminotransferase 37 U/L (0-40); Albumin Level 4.2 g/dL (3.5-5.0); Alkaline Phosphatase 124 U/L (39-117); Anion Gap 16 (12-20); Aspartate Amino Transferase 24 U/L (5-37); Bilirubin Total 0.3 mg/dL (0.0-1.0); Blood Urea Nitrogen 12 mg/dL (9-16); Calcium 9.4 mg/dL (8.4-10.2); Carbon Dioxide 26 mmol/L (22-29); Chloride 102 mmol/L (96-108); Estimated Glomerular Filt Rate > 60; Glucose Fasting 236 mg/dL (60-99); Potassium 4.4 mmol/L (3.3-5.1); Sodium 140 mmol/L (135-145); Total Protein 6.4 g/dL (6.5-8.0)
== END 2021-05-22 10:18 | disposition home or self-care (01) ==
LOC: HO.10HDL 10:17
PROVIDERS: Visit Provider Clinical Nurse Specialist Psychiatric/Mental Health, Adult
DX: Z79.899 Other long term (current) drug therapy (principal)
CPT/HCPCS: 36415; 80053; 80164; 85025

== ENCOUNTER 2021-06-23 11:36 | Outpatient (REF) | payer MEDICARE, MEDICAID, SELFPAY ==
[2021-06-23 13:41] LABS: MANUAL DIFF FLAG NO
[2021-06-23 13:44] LABS: Basophils Absolute Auto 0.1 X10*3/uL (0.0-0.2); Basophils Percent Auto 1.2 % (0-2); Eosinophils Absolute Auto 0.4 X10*3/uL (0.0-0.4); Hematocrit 42.4 % (42.0-52.0); Hemoglobin 13.7 g/dl (14.0-18.0); Imm Gran Abs Auto 0.04 X10*3/uL (0.00-0.03); Imm Gran Pct Auto 0.5 % (0.0-0.4); Lymphocytes Absolute Auto 1.8 X10*3/uL (1.2-4.9); Mean Corpuscular HGB Conc 32.3 g/dl (31.0-36.0); Mean Corpuscular Hemoglobin 27.3 pg (27.0-33.0); Mean Corpuscular Volume 84.6 fL (80.0-98.0); Mean Platelet Volume 10.1 fL (9.4-12.4); Monocytes Absolute Auto 0.7 X10*3/uL (0.1-1.2); Monocytes Percent Auto 9.3 % (2-11); Neutrophils Absolute Auto 4.36 x10*3/uL (2.0-8.3); Platelet Count 232 X10*3/uL (160-400); Red Blood Count 5.01 X10*6/uL (4.60-5.80); Red Cell Distribution Width 12.7 % (11.0-16.0); White Blood Count 7.4 X10*3/uL (4.8-10.8)
== END 2021-06-23 11:37 | disposition home or self-care (01) ==
LOC: HO.10HDLR 11:36
PROVIDERS: Visit Provider Clinical Nurse Specialist Psychiatric/Mental Health, Adult
DX: Z79.899 Other long term (current) drug therapy (principal)
CPT/HCPCS: 36415; 85025

== ENCOUNTER 2021-07-08 11:30 | Emergency (ER) | payer MEDICARE, MEDICAID, SELFPAY ==
--- NOTE | ~2021-07-08 | XR_ITS ---
EXAMINATION: XR CHEST CLINICAL INFORMATION: Chest pain and shortness of breath COMPARISON: Previous chest x-ray October 2012 TECHNIQUE: Frontal view of the chest was obtained. FINDINGS: The cardiac and mediastinal contours are stable. There may be pulmonary venous redistribution. The lungs are otherwise clear. There is no pleural effusion or pneumothorax. There is curvature of the lower thoracic and upper lumbar spine to the left. XR/XR chest 1V IMPRESSION: Question pulmonary venous redistribution. Otherwise unremarkable exam.
[2021-07-08 11:35] VITALS: BP 156/83; PULSE 127; RESP 18; TEMP 36.4; O2SAT 96; BMI 34.5
--- NOTE | 2021-07-08 11:38 | ECG_ITS ---
Test Reason : cp Blood Pressure : / mmHG Vent. Rate : 125 BPM Atrial Rate : 125 BPM P-R Int : 146 ms QRS Dur : 074 ms QT Int : 296 ms P-R-T Axes : 027 012 057 degrees QTc Int : 427 ms Sinus tachycardia Otherwise normal ECG When compared with ECG of 23-JUL-2020 09:15, Heart rate has increased Referred By: Generic ED Physician Electronically Signed By:GRECIA MENDIOLA MD
[2021-07-08 12:18] VITALS: BP 158/84; PULSE 135; RESP 18; TEMP 36.6; O2SAT 94
[2021-07-08 12:35] LABS: MANUAL DIFF FLAG NO
[2021-07-08 12:38] LABS: Basophils Absolute Auto 0.1 X10*3/uL (0.0-0.2); Basophils Percent Auto 0.4 % (0-2); Eosinophils Absolute Auto 0.1 X10*3/uL (0.0-0.4); Eosinophils Percent Auto 0.3 % (0-4); Hematocrit 44.5 % (42.0-52.0); Hemoglobin 14.6 g/dl (14.0-18.0); Imm Gran Abs Auto 0.06 X10*3/uL (0.00-0.03); Imm Gran Pct Auto 0.4 % (0.0-0.4); Lymphocytes Percent Auto 6.8 % (20-40); Mean Corpuscular HGB Conc 32.8 g/dl (31.0-36.0); Mean Corpuscular Hemoglobin 27.7 pg (27.0-33.0); Mean Corpuscular Volume 84.3 fL (80.0-98.0); Mean Platelet Volume 9.6 fL (9.4-12.4); Monocytes Percent Auto 6.6 % (2-11); Neutrophils Absolute Auto 13.1 x10*3/uL (2.0-8.3); Neutrophils Percent Auto 85.5 % (45-73); Platelet Count 253 X10*3/uL (160-400); Red Blood Count 5.28 X10*6/uL (4.60-5.80); Red Cell Distribution Width 12.6 % (11.0-16.0); White Blood Count 15.3 X10*3/uL (4.8-10.8)
[2021-07-08 12:53] LABS: Anion Gap 19 (12-20); Blood Urea Nitrogen 17 mg/dL (9-16); Calcium 10.9 mg/dL (8.4-10.2); Carbon Dioxide 24 mmol/L (22-29); Chloride 98 mmol/L (96-108); Creatinine Clr Calc Pharmacy 86.8; Estimated Glomerular Filt Rate > 60; Glucose Random 331 mg/dL (60-115); Sodium 136 mmol/L (135-145)
[2021-07-08 13:00] LABS: Troponin-I High Sensitivity < 3.5 ng/L (<3.5-35.0)
--- NOTE | 2021-07-08 13:08 | ED_ITS ---
HPI - General Adult General Chief complaint: General Medical Stated complaint: sob, low blood pressure, elevated heart rate Time Seen by Provider: 07/08/21 12:59 Source: patient and other (Urgent care records) History of Present Illness HPI narrative: Patient with a history of type 2 diabetes and schizophrenia complaining of fevers and chills and cough which started last night. He went to urgent care today sedated COVID test which was negative. Incentive to the emergency department because he was tachycardic and blood pressure was lower than average for him although not frankly hypotensive. Patient states he is feeling a little bit better at the moment. He does not want to wait for treatment. He denies chest pain. No shortness of breath. Positive cough without sputum. No nausea vomiting diarrhea or constipation. Decreased appetite but he is able to eat and drink. He checks his blood sugar at home daily Related Data Home Medications Medication Instructions Recorded Confirmed lancets 28 gauge (FreeStyle 07/22/20 07/22/20 Lancets) acetaminophen 325 mg tablet 650 mg PO Q6H PRN 07/08/21 07/08/21 hydroxyzine HCl 25 mg tablet 1 tab PO DAILY PRN 07/08/21 07/08/21 Previous Rx's Medication Instructions Recorded atorvastatin 20 mg tablet 1 tab PO DAILY 30 Days #30 tab 08/12/20 benztropine 1 mg tablet 1 tab PO BID #60 tab 08/12/20 clonazepam 0.5 mg tablet 0.5 mg PO BID 30 Days #60 tab 08/12/20 clozapine 100 mg tablet 300 mg PO BEDTIME #45 tab 08/12/20 divalproex 500 mg tablet,extended 500 mg PO BID 30 Days #60 tab 08/12/20 release 24 hr gabapentin 100 mg capsule 1 cap PO TID #90 cap 08/12/20 gabapentin 800 mg tablet 1 tab PO TID #90 tab 08/12/20 glipizide 5 mg tablet 1 tab PO DAILY #30 tab 08/12/20 lorazepam 1 mg tablet 1 mg PO BID PRN #30 tab 08/12/20 metformin 1,000 mg tablet 1 tab PO BID #60 tab 08/12/20 metoprolol succinate 25 mg 1 tab PO DAILY #30 cap 08/12/20 tablet,extended release 24 hr trazodone 100 mg tablet 200 mg PO BEDTIME #60 tab 08/12/20 acetaminophen 325 mg tablet 650 mg PO Q4H PRN #30 tab 07/08/21 (Tylenol) Allergies Allergy/AdvReac Type Severity Reaction Status Date / Time haloperidol [From Haldol] Allergy Intermediate Agitated Verified 02/04/21 19:02 lithium Allergy Intermediate Agitated Verified 02/04/21 19:02 oxcarbazepine Allergy Unknown RASH Verified 02/04/21 19:02 [From TRILEPTAL] From Prolixin Allergy Intermediate AKATHESIA Uncoded 02/04/21 19:02 Review of Systems Constitutional: Comments: Denies generalized weakness. Positive fevers and chills ENT: Comments: No sinus pain, no sore throat, Cardiovascular: Comments: No chest pain Respiratory: Comments: Cough without sputum or dyspnea Gastrointestinal: Comments: No nausea vomiting diarrhea constipation or abdominal pain Genitourinary: Comments: No polyuria Musculoskeletal: Comments: No leg pain or edema Integumentary/Breasts: Comments: No rash Neurologic: Comments: No generalized or focal weakness Endocrine: Comments: History of type 2 diabetes [facility] Past Medical History Medical History Diabetes 1.5, managed as type 2 Social History Social History Household Members: None Housing: Apartment Do you presently have visiting nurse or other home services: Yes Alcohol intake: never Advance Directives: No Advance Directives Information Provided: No service: No Sexual orientation: Straight/Heterosexual Physical Exam Vital Signs: Vital Signs: Last Vital Signs Temp 97.8 F 07/08/21 12:18 Pulse 135 H 07/08/21 12:18 Resp 18 07/08/21 12:18 BP 158/84 H 07/08/21 12:18 Pulse Ox 94 07/08/21 12:18 Body Mass Index 34.5 Const: Other: Awake alert no acute distress. Ambulatory without difficulty Chest: Other: Clear and equal bilaterally without wheezes rales or rhonchi. Resp: Other: No respiratory distress Cardio: Other: Tachycardic without murmurs rubs or gallops GI: Other: Abdomen is soft nontender nondistended Skin: Other: Warm pink and dry without rash Neuro: Other: Nonfocal. Ambulatory Course Course Course Narrative: Viral syndrome Influenza COVID-19 infection Pneumonia Type 2 diabetes Hyperglycemia Diabetic ketoacidosis Workup in emergency department shows leukocytosis at 15,000. Glucose is elevated but he is not acidotic. Troponin is normal. Chest x-ray is normal without obvious infiltrate Heart rate is currently 130. I recommend IV fluids, but patient states he needs to leave as his right is in the waiting room. He states he feels better now and will drink plenty of fluids. He understands he will return if worse in any way. Will continue to monitor blood sugar closely throughout this illness. Final impression viral URI without evidence of bacterial source. Medical Decision Making Lab Data Result diagrams: 07/08/21 12:31 07/08/21 12:31 Labs: Lab Results 07/08/21 07/08/21 07/08/21 Range/Units 12:31 12:31 12:31 WBC 15.3 H (4.8-10.8) X10*3/uL RBC 5.28 (4.60-5.80) X10*6/uL Hgb 14.6 (14.0-18.0) g/dl Hct 44.5 (42.0-52.0) % MCV 84.3 (80.0-98.0) fL MCH 27.7 (27.0-33.0) pg MCHC 32.8 (31.0-36.0) g/dl RDW 12.6 (11.0-16.0) % Plt Count 253 (160-400) X10*3/uL MPV 9.6 (9.4-12.4) fL Immature Gran % (Auto) 0.4 (0.0-0.4) % Neut % (Auto) 85.5 H (45-73) % Lymph % (Auto) 6.8 L (20-40) % [place] % (Auto) 6.6 (2-11) % Eos % (Auto) 0.3 (0-4) % Baso % (Auto) 0.4 (0-2) % Lymph # (Auto) 1.0 L (1.2-4.9) X10*3/uL [place] # (Auto) 1.0 (0.1-1.2) X10*3/uL Eos # (Auto) 0.1 (0.0-0.4) X10*3/uL Baso # (Auto) 0.1 (0.0-0.2) X10*3/uL Abs Immat Gran (auto) 0.06 H (0.00-0.03) X10*3/uL Absolute Neuts (auto) 13.1 H (2.0-8.3) x10*3/uL Absolute Nucleated RBC 0.000 (0.0-0.012) X10*3/uL Nucleated RBC % (auto) 0.0 (0.0-0.2) /100WBC Sodium 136 (135-145) mmol/L Potassium 5.0 (3.3-5.1) mmol/L Chloride 98 (96-108) mmol/L Carbon Dioxide 24 (22-29) mmol/L Anion Gap 19 (12-20) BUN 17 H (9-16) mg/dL Creatinine 1.29 (0.5-1.4) mg/dL Estim Creat Clear Calc 86.8 Estimated GFR > 60 Random Glucose 331 H D (60-115) mg/dL Calcium 10.9 H D (8.4-10.2) mg/dL Troponin I High Sens < 3.5 (<3.5-35.0) ng/L Discharge Plan Discharge Clinical Impression: Acute upper respiratory infection Type 2 diabetes mellitus Qualifiers: Diabetes mellitus long term care social worker insulin use: unspecified assisted insulin use status Diabetes mellitus complication status: without complication Qualified Code(s): E11.9 - Type 2 diabetes mellitus without complications Patient Disposition: Home, Self-Care Instructions: Upper Respiratory Infection (ED), Diabetes and Nutrition (ED), Type 2 Diabetes Management for Adults (ED) Additional Instructions: Drink plenty of liquids. Be sure to check her blood sugar twice daily. Return if you are feeling worse in any way. Tylenol every 4 hours for body aches and fevers and chills. Prescriptions: New acetaminophen [Tylenol] 325 mg tablet 650 mg PO Q4H PRN (Reason: fever or pain) Qty: 30 RF: 0 No Action (DME) lancets [FreeStyle Lancets] 28 gauge misc topical DAILY RF: 0 divalproex 500 mg Tablet Extended Release 24 Hr 500 mg PO BID 30 Days Qty: 60 RF: 0 clonazepam 0.5 mg Tablet 0.5 mg PO BID 30 Days Qty: 60 RF: 0 atorvastatin 20 mg tablet 1 tab PO DAILY 30 Days Qty: 30 RF: 0 clozapine 100 mg tablet 300 mg PO BEDTIME Qty: 45 RF: 1 gabapentin 800 mg tablet 1 tab PO TID Qty: 90 RF: 0 trazodone 100 mg tablet 200 mg PO BEDTIME Qty: 60 RF: 0 metformin 1,000 mg tablet 1 tab PO BID Qty: 60 RF: 0 benztropine 1 mg tablet 1 tab PO BID Qty: 60 RF: 0 gabapentin 100 mg capsule 1 cap PO TID Qty: 90 RF: 0 metoprolol succinate 25 mg tablet extended release 24 hr 1 tab PO DAILY Qty: 30 RF: 0 lorazepam 1 mg tablet 1 mg PO BID PRN (Reason: Anxiety) Qty: 30 RF: 1 glipizide 5 mg tablet 1 tab PO DAILY Qty: 30 RF: 0 acetaminophen 325 mg Tablet 650 mg PO Q6H PRN (Reason: Pain) RF: 0 hydroxyzine HCl 25 mg tablet 1 tab PO DAILY PRN (Reason: Anxiety) RF: 0
--- NOTE | 2021-07-08 13:18 | PHA.MEDREC ---
Pharmacy Consult ? Medication Reconciliation Pharmacy has completed the medication reconciliation. There are no remarkable issues for provider's attention. Patient came with a medication list. Marleny Wallis, [email or web address]
[2021-07-08 13:34] VITALS: BP 118/79; PULSE 127; RESP 18; TEMP 37.6; O2SAT 95
[2021-07-08] MEDS: Acetaminophen 325 MG TABLET 650 MG PO (13:37)
== END 2021-07-08 13:57 | disposition home or self-care (01) ==
PROVIDERS: Emergency Provider Emergency Medicine; PCP Family Medicine
DX: J06.9 Acute upper respiratory infection, unspecified (principal); R06.02 Shortness of breath; R00.0 Tachycardia, unspecified; E11.9 Type 2 diabetes mellitus without complications; Z79.899 Other long term (current) drug therapy
CPT/HCPCS: 36415; 71045; 80048; 84484; 85025; 93005; 99283; 99284

== ENCOUNTER 2021-07-23 10:13 | Outpatient (REF) | payer MEDICARE, MEDICAID, SELFPAY ==
[2021-07-23 14:02] LABS: MANUAL DIFF FLAG NO
[2021-07-23 14:12] LABS: Basophils Absolute Auto 0.1 X10*3/uL (0.0-0.2); Basophils Percent Auto 0.8 % (0-2); Eosinophils Absolute Auto 0.4 X10*3/uL (0.0-0.4); Eosinophils Percent Auto 4.5 % (0-4); Hematocrit 43.8 % (42.0-52.0); Hemoglobin 14.2 g/dl (14.0-18.0); Imm Gran Abs Auto 0.03 X10*3/uL (0.00-0.03); Imm Gran Pct Auto 0.4 % (0.0-0.4); Lymphocytes Absolute Auto 2.2 X10*3/uL (1.2-4.9); Lymphocytes Percent Auto 28.9 % (20-40); Mean Corpuscular HGB Conc 32.4 g/dl (31.0-36.0); Mean Corpuscular Hemoglobin 27.3 pg (27.0-33.0); Mean Corpuscular Volume 84.1 fL (80.0-98.0); Mean Platelet Volume 10.4 fL (9.4-12.4); Monocytes Absolute Auto 0.6 X10*3/uL (0.1-1.2); Monocytes Percent Auto 7.5 % (2-11); Neutrophils Absolute Auto 4.5 x10*3/uL (2.0-8.3); Neutrophils Percent Auto 57.9 % (45-73); Platelet Count 243 X10*3/uL (160-400); Red Blood Count 5.21 X10*6/uL (4.60-5.80); Red Cell Distribution Width 12.7 % (11.0-16.0); White Blood Count 7.8 X10*3/uL (4.8-10.8)
== END 2021-07-23 10:14 | disposition home or self-care (01) ==
LOC: HO.10HDLR 10:13
PROVIDERS: Visit Provider Clinical Nurse Specialist Psychiatric/Mental Health, Adult
DX: Z79.899 Other long term (current) drug therapy (principal)
CPT/HCPCS: 36415; 85025

== ENCOUNTER 2021-08-06 10:23 | Outpatient (REF) | payer MEDICARE, MEDICAID, SELFPAY ==
[2021-08-06 14:29] LABS: Valproate 48.5 mcg/mL (50.0-100.0)
[2021-08-06 15:06] LABS: Alanine Aminotransferase 25 U/L (0-40); Albumin Level 4.5 g/dL (3.5-5.0); Alkaline Phosphatase 124 U/L (39-117); Anion Gap 17 (12-20); Aspartate Amino Transferase 13 U/L (5-37); Bilirubin Total 0.4 mg/dL (0.0-1.0); Blood Urea Nitrogen 14 mg/dL (9-16); Calcium 9.6 mg/dL (8.4-10.2); Carbon Dioxide 27 mmol/L (22-29); Chloride 97 mmol/L (96-108); Estimated Glomerular Filt Rate > 60; Glucose Random 488 mg/dL (60-115); Sodium 137 mmol/L (135-145); Total Protein 6.7 g/dL (6.5-8.0)
== END 2021-08-06 10:24 | disposition home or self-care (01) ==
LOC: HO.10HDL 10:23
PROVIDERS: Visit Provider Clinical Nurse Specialist Psychiatric/Mental Health, Adult
DX: Z79.899 Other long term (current) drug therapy (principal)
CPT/HCPCS: 36415; 80053; 80164

== ENCOUNTER 2021-08-19 11:46 | Outpatient (REF) | payer MEDICARE, MEDICAID, SELFPAY ==
[2021-08-19 14:26] LABS: MANUAL DIFF FLAG NO
[2021-08-19 14:40] LABS: Basophils Absolute Auto 0.1 X10*3/uL (0.0-0.2); Basophils Percent Auto 1.1 % (0-2); Eosinophils Absolute Auto 0.5 X10*3/uL (0.0-0.4); Hematocrit 43.7 % (42.0-52.0); Hemoglobin 14.2 g/dl (14.0-18.0); Imm Gran Abs Auto 0.08 X10*3/uL (0.00-0.03); Lymphocytes Absolute Auto 2.4 X10*3/uL (1.2-4.9); Lymphocytes Percent Auto 28.2 % (20-40); Mean Corpuscular HGB Conc 32.5 g/dl (31.0-36.0); Mean Corpuscular Hemoglobin 27.4 pg (27.0-33.0); Mean Corpuscular Volume 84.2 fL (80.0-98.0); Mean Platelet Volume 9.9 fL (9.4-12.4); Monocytes Absolute Auto 0.6 X10*3/uL (0.1-1.2); Monocytes Percent Auto 7.3 % (2-11); Neutrophils Absolute Auto 4.7 x10*3/uL (2.0-8.3); Neutrophils Percent Auto 56.4 % (45-73); Platelet Count 266 X10*3/uL (160-400); Red Blood Count 5.19 X10*6/uL (4.60-5.80); Red Cell Distribution Width 12.5 % (11.0-16.0); White Blood Count 8.4 X10*3/uL (4.8-10.8)
== END 2021-08-19 11:47 | disposition home or self-care (01) ==
LOC: HO.10HDLR 11:46
PROVIDERS: Visit Provider Clinical Nurse Specialist Psychiatric/Mental Health, Adult
DX: Z79.899 Other long term (current) drug therapy (principal)
CPT/HCPCS: 36415; 85025

== ENCOUNTER 2021-09-12 10:04 | Outpatient (REF) | payer MEDICARE, MEDICAID, SELFPAY ==
[2021-09-12 13:53] LABS: MANUAL DIFF FLAG NO
[2021-09-12 14:00] LABS: Basophils Absolute Auto 0.1 X10*3/uL (0.0-0.2); Basophils Percent Auto 1.1 % (0-2); Eosinophils Absolute Auto 0.5 X10*3/uL (0.0-0.4); Eosinophils Percent Auto 6.3 % (0-4); Hematocrit 45.6 % (42.0-52.0); Hemoglobin 14.2 g/dl (14.0-18.0); Imm Gran Abs Auto 0.06 X10*3/uL (0.00-0.03); Imm Gran Pct Auto 0.8 % (0.0-0.4); Lymphocytes Absolute Auto 2.6 X10*3/uL (1.2-4.9); Lymphocytes Percent Auto 35.2 % (20-40); Mean Corpuscular HGB Conc 31.1 g/dl (31.0-36.0); Mean Corpuscular Hemoglobin 26.9 pg (27.0-33.0); Mean Corpuscular Volume 86.4 fL (80.0-98.0); Mean Platelet Volume 9.9 fL (9.4-12.4); Monocytes Absolute Auto 0.6 X10*3/uL (0.1-1.2); Monocytes Percent Auto 8.6 % (2-11); Neutrophils Absolute Auto 3.6 x10*3/uL (2.0-8.3); Platelet Count 233 X10*3/uL (160-400); Red Blood Count 5.28 X10*6/uL (4.60-5.80); Red Cell Distribution Width 12.6 % (11.0-16.0); White Blood Count 7.4 X10*3/uL (4.8-10.8)
== END 2021-09-12 10:05 | disposition home or self-care (01) ==
LOC: HO.10HDLR 10:04
PROVIDERS: Visit Provider Clinical Nurse Specialist Psychiatric/Mental Health, Adult
DX: Z79.899 Other long term (current) drug therapy (principal)
CPT/HCPCS: 36415; 85025

== ENCOUNTER 2021-10-14 11:22 | Outpatient (REF) | payer MEDICARE, MEDICAID, SELFPAY ==
[2021-10-14 13:53] LABS: MANUAL DIFF FLAG NO
[2021-10-14 13:58] LABS: Basophils Absolute Auto 0.1 X10*3/uL (0.0-0.2); Basophils Percent Auto 0.8 % (0-2); Eosinophils Absolute Auto 0.6 X10*3/uL (0.0-0.4); Hematocrit 43.4 % (42.0-52.0); Imm Gran Abs Auto 0.05 X10*3/uL (0.00-0.03); Imm Gran Pct Auto 0.6 % (0.0-0.4); Lymphocytes Absolute Auto 2.4 X10*3/uL (1.2-4.9); Lymphocytes Percent Auto 29.4 % (20-40); Mean Corpuscular HGB Conc 32.3 g/dl (31.0-36.0); Mean Corpuscular Hemoglobin 27.5 pg (27.0-33.0); Mean Corpuscular Volume 85.1 fL (80.0-98.0); Mean Platelet Volume 9.7 fL (9.4-12.4); Monocytes Absolute Auto 0.6 X10*3/uL (0.1-1.2); Monocytes Percent Auto 7.9 % (2-11); Neutrophils Absolute Auto 4.3 x10*3/uL (2.0-8.3); Neutrophils Percent Auto 54.3 % (45-73); Platelet Count 231 X10*3/uL (160-400); Red Cell Distribution Width 12.9 % (11.0-16.0)
== END 2021-10-14 11:23 | disposition home or self-care (01) ==
LOC: HO.10HDL 11:22
PROVIDERS: Visit Provider Clinical Nurse Specialist Psychiatric/Mental Health, Adult
DX: Z79.899 Other long term (current) drug therapy (principal)
CPT/HCPCS: 36415; 85025

== ENCOUNTER 2021-11-11 11:19 | Outpatient (REF) | payer MEDICARE, MEDICAID, SELFPAY ==
[2021-11-11 11:40] LABS: MANUAL DIFF FLAG NO
[2021-11-11 12:01] LABS: Basophils Absolute Auto 0.1 X10*3/uL (0.0-0.2); Basophils Percent Auto 0.9 % (0-2); Eosinophils Absolute Auto 0.5 X10*3/uL (0.0-0.4); Hematocrit 45.5 % (42.0-52.0); Hemoglobin 14.5 g/dl (14.0-18.0); Imm Gran Abs Auto 0.05 X10*3/uL (0.00-0.03); Imm Gran Pct Auto 0.6 % (0.0-0.4); Lymphocytes Absolute Auto 2.1 X10*3/uL (1.2-4.9); Lymphocytes Percent Auto 26.1 % (20-40); Mean Corpuscular HGB Conc 31.9 g/dl (31.0-36.0); Mean Corpuscular Hemoglobin 27.1 pg (27.0-33.0); Mean Corpuscular Volume 84.9 fL (80.0-98.0); Mean Platelet Volume 9.5 fL (9.4-12.4); Monocytes Absolute Auto 0.7 X10*3/uL (0.1-1.2); Monocytes Percent Auto 8.1 % (2-11); Neutrophils Absolute Auto 4.8 x10*3/uL (2.0-8.3); Neutrophils Percent Auto 58.3 % (45-73); Platelet Count 248 X10*3/uL (160-400); Red Blood Count 5.36 X10*6/uL (4.60-5.80); Red Cell Distribution Width 12.8 % (11.0-16.0); White Blood Count 8.2 X10*3/uL (4.8-10.8)
== END 2021-11-11 11:20 | disposition home or self-care (01) ==
LOC: HO.LABR 11:19
PROVIDERS: PCP Family Medicine; Visit Provider Clinical Nurse Specialist Psychiatric/Mental Health, Adult
DX: Z79.899 Other long term (current) drug therapy (principal)
CPT/HCPCS: 36415; 85025

== ENCOUNTER 2021-11-25 12:33 | Inpatient (IN) | payer MEDICARE, MEDICAID, SELFPAY ==
[2021-11-25 12:39] VITALS: BP 140/90; BP 155/83; PULSE 105; PULSE 110; RESP 15; TEMP 36.6; O2SAT 96; O2SAT 98; BMI 35.7
[2021-11-25 12:54] LABS: Glucose, Whole Blood 168 mg/dL (60-115)
--- NOTE | 2021-11-25 13:00 | ED.PSYCH ---
HPI - Psych General Chief Complaint: Psychiatric Symptoms Stated Complaint: ANXIETY/RESTLESSNESS,SI PER EMS Time Seen by Provider: 11/25/21 12:58 Source: patient and EMS Mode of arrival: EMS Limitations: no limitations History of Present Illness HPI Narrative: 46-year-old male with history of schizoaffective disorder on Clozaril who presents to the ER from home via EMS with severe restlessness. He reports the feeling of restless leg syndrome all over his body. This started 4 days ago and got much worse today. He is increasingly anxious. He reports compliance with all of his medications. He denies any drug or alcohol use in the last 17 years. He reports a similar episode in the past and he reports being admitted to for it. He is vaguely suicidal directly related to his anxiety and restlessness. MD complaint: anxiety and hallucinations Onset (ago): day(s) (4) Duration: constant History of same: Yes Relieving factors: none Exacerbating factors: none Associated psychiatric symptoms: depression and suicidal ideation Associated symptoms: denies other symptoms Treatments prior to arrival: none If self harm: admits thoughts of self harm Details of plan: no plan Related Data Home Medications Medication Instructions Recorded Confirmed lancets 28 gauge (FreeStyle 07/22/20 07/22/20 Lancets) hydroxyzine HCl 25 mg tablet 1 tab PO DAILY PRN 07/08/21 11/25/21 Previous Rx's Medication Instructions Recorded atorvastatin 20 mg tablet 1 tab PO DAILY 30 Days #30 tab 08/12/20 benztropine 1 mg tablet 1 tab PO BID #60 tab 08/12/20 clonazepam 0.5 mg tablet 0.5 mg PO BID 30 Days #60 tab 08/12/20 clozapine 100 mg tablet 300 mg PO BEDTIME #45 tab 08/12/20 divalproex 500 mg tablet,extended 500 mg PO BID 30 Days #60 tab 08/12/20 release 24 hr gabapentin 100 mg capsule 1 cap PO TID #90 cap 08/12/20 gabapentin 800 mg tablet 1 tab PO TID #90 tab 08/12/20 glipizide 5 mg tablet 1 tab PO DAILY #30 tab 08/12/20 lorazepam 1 mg tablet 1 mg PO BID PRN #30 tab 08/12/20 metformin 1,000 mg tablet 1 tab PO BID #60 tab 08/12/20 metoprolol succinate 25 mg 1 tab PO DAILY #30 cap 08/12/20 tablet,extended release 24 hr trazodone 100 mg tablet 200 mg PO BEDTIME #60 tab 08/12/20 acetaminophen 325 mg tablet 650 mg PO Q4H PRN #30 tab 07/08/21 (Tylenol) Allergies Allergy/AdvReac Type Severity Reaction Status Date / Time haloperidol [From Haldol] Allergy Intermediate Agitated Verified 02/04/21 19:02 lithium Allergy Intermediate Agitated Verified 02/04/21 19:02 oxcarbazepine Allergy Unknown RASH Verified 02/04/21 19:02 [From TRILEPTAL] From Prolixin Allergy Intermediate AKATHESIA Uncoded 02/04/21 19:02 Review of Systems Review of Systems: Constitutional: No Fever, No Chills ENT/Mouth: No sore throat, No Rhinorrhea, No Swallowing Difficulty Eyes: No Eye Pain, No Swelling, No Redness Cardiovascular: No Chest Pain, No SOB, No Orthopnea, No Edema Respiratory: No Cough, No Sputum, No Wheezing, No dyspnea Gastrointestinal: No Nausea, No Vomiting, No Diarrhea, No abdominal Pain Genitourinary: No Dysuria, No Urinary Frequency, No Hematuria Musculoskeletal: No joint pain, + Myalgias Skin: No Skin Lesions, No rash Neuro: No Weakness, No Numbness, No Dizziness, No Headache, +tremor Psych: +Anxiety/Panic, +Depression, +SI, No HI, No AV, No VH Heme/Lymph: No Bruising, No Lymphadenopathy Endocrine: No Polyuria, No Polydipsia PMFSH Past Medical History Medical History Diabetes 1.5, managed as type 2 Social History Social History Household Members: None Housing: Apartment Do you presently have visiting nurse or other home services: Yes Alcohol intake: never Advance Directives: No Advance Directives Information Provided: No service: No Sexual orientation: Straight/Heterosexual Physical Exam Vital Signs: Vital Signs: Last Vital Signs Temp 97.8 F 11/25/21 12:39 Pulse 105 H 11/25/21 12:39 Resp 15 11/25/21 14:03 BP 155/83 H 11/25/21 12:39 Pulse Ox 96 11/25/21 12:39 BMI result Body Mass Index 35.7 Appearance: Alert. Oriented X3. No acute distress. Eyes: Pupils equal, round and reactive to light. ENT: Pharynx normal. Neck: Normal inspection. Neck supple. CVS: Normal heart rate and rhythm. Pulses normal. Respiratory: No respiratory distress. Breath sounds normal. Abdomen: Soft and nontender. +BS x4 Skin: Skin warm and dry. Normal skin color. Normal skin turgor. No rashes. Extremities: Normal inspection x4, normal range of motion. Compartments are soft and compressible, nontender. Mild bilateral hand tremor noted. Neuro/psych: Oriented X 3. No motor deficit. No sensory deficit. CN II-XII intact. Ambulates with slow but steady gait. Makes eye contact, flat affect, depressed. Course Course Course Narrative: 46-year-old male with history of schizoaffective disorder who presents to the ER with restlessness and anxiety. Per EMS report he has been screaming and yelling at home because been unable to cope with feeling. He reports similar episode in the past that got him admitted to for treatment. He is alert and oriented, calm and cooperative on arrival. He has a slight tremor of the bilateral hands. Will check metabolic workup and have him evaluated by crisis team once medically cleared. Reevaluation(s) Reevaluation #1: Lab workup showing a mild leukocytosis 12.3. Cell counts and diff are near baseline. No signs of infection. COVID is negative. Urinalysis negative. At this time patient is medically cleared. Will place in physician observation at this. Physician observation started at 4:20pm. Patient placed in physician observation because patient is awaiting [facility] evaluation for the possible need of inpatient psych admission. At the time observation was started patient's vital signs were stable. Patient is alert and oriented. Neuro exam is non-focal. CV: RRR and lungs are clear. Will continue to monitor. [facility] - Psych Lab Data Result diagrams: 11/25/21 15:38 11/25/21 15:38 Labs: Lab Results 11/25/21 11/25/21 11/25/21 Range/Units 12:51 15:15 15:15 WBC (4.8-10.8) X10*3/uL RBC (4.60-5.80) X10*6/uL Hgb (14.0-18.0) g/dl Hct (42.0-52.0) % MCV (80.0-98.0) fL MCH (27.0-33.0) pg MCHC (31.0-36.0) g/dl RDW (11.0-16.0) % Plt Count (160-400) X10*3/uL MPV (9.4-12.4) fL Immature Gran % (Auto) (0.0-0.4) % Neut % (Auto) (45-73) % Lymph % (Auto) (20-40) % [place] % (Auto) (2-11) % Eos % (Auto) (0-4) % Baso % (Auto) (0-2) % Lymph # (Auto) (1.2-4.9) X10*3/uL [place] # (Auto) (0.1-1.2) X10*3/uL Eos # (Auto) (0.0-0.4) X10*3/uL Baso # (Auto) (0.0-0.2) X10*3/uL Abs Immat Gran (auto) (0.00-0.03) X10*3/uL Absolute Neuts (auto) (2.0-8.3) x10*3/uL Absolute Nucleated RBC (0.0-0.012) X10*3/uL Nucleated RBC % (auto) (0.0-0.2) /100WBC Sodium (135-145) mmol/L Potassium (3.3-5.1) mmol/L Chloride (96-108) mmol/L Carbon Dioxide (22-29) mmol/L Anion Gap (12-20) BUN (9-16) mg/dL Creatinine (0.5-1.4) mg/dL Estim Creat Clear Calc Estimated GFR POC Glucose 168 H (60-115) mg/dL Random Glucose (60-115) mg/dL Calcium (8.4-10.2) mg/dL Magnesium (1.6-2.6) mg/dL Total Bilirubin (0.0-1.0) mg/dL Direct Bilirubin (0.0-0.5) mg/dL AST (5-37) U/L ALT (0-40) U/L Alkaline Phosphatase (39-117) U/L Total Protein (6.5-8.0) g/dL Albumin (3.5-5.0) g/dL TSH (0.32-4.0) uIU/mL Urine Color YELLOW Urine Appearance CLEAR Urine pH 6.5 (5.0-8.0) Ur Specific [place] <= 1.005 (1.005-1.025) Urine Protein NEG (NEG-TRACE) MG/DL Urine Glucose (UA) 100 H (NEG) MG/DL Urine Ketones NEG (NEG) MG/DL Urine Blood NEG (NEG) Urine Nitrite NEG (NEG) Ur Leukocyte Esterase NEG (NEG) Urine Opiates Screen Not Detected (Not Detect) Urine Fentanyl Screen Not Detected (Not Detect) Ur Barbiturates Screen Not Detected (Not Detect) Valproic Acid (50.0-100.0) mcg/mL Ur Phencyclidine Scrn Not Detected (Not Detect) Ur Amphetamines Screen Not Detected (Not Detect) U Benzodiazepines Scrn Not Detected (Not Detect) Urine Cocaine Screen Not Detected (Not Detect) U Marijuana (THC) Screen Not Detected (Not Detect) Ethyl Alcohol mg/dL COVID-19 (LINDA) (Negative) COVID-19 Clin Com 11/25/21 11/25/21 11/25/21 Range/Units 15:16 15:38 15:38 WBC 12.3 H (4.8-10.8) X10*3/uL RBC 5.09 (4.60-5.80) X10*6/uL Hgb 14.2 (14.0-18.0) g/dl Hct 41.7 L (42.0-52.0) % MCV 81.9 (80.0-98.0) fL MCH 27.9 (27.0-33.0) pg MCHC 34.1 (31.0-36.0) g/dl RDW 12.8 (11.0-16.0) % Plt Count 275 (160-400) X10*3/uL MPV 9.5 (9.4-12.4) fL Immature Gran % (Auto) 0.5 H (0.0-0.4) % Neut % (Auto) 76.3 H (45-73) % Lymph % (Auto) 15.2 L (20-40) % [place] % (Auto) 6.8 (2-11) % Eos % (Auto) 0.7 (0-4) % Baso % (Auto) 0.5 (0-2) % Lymph # (Auto) 1.9 (1.2-4.9) X10*3/uL [place] # (Auto) 0.8 (0.1-1.2) X10*3/uL Eos # (Auto) 0.1 (0.0-0.4) X10*3/uL Baso # (Auto) 0.1 (0.0-0.2) X10*3/uL Abs Immat Gran (auto) 0.06 H (0.00-0.03) X10*3/uL Absolute Neuts (auto) 9.4 H (2.0-8.3) x10*3/uL Absolute Nucleated RBC 0.000 (0.0-0.012) X10*3/uL Nucleated RBC % (auto) 0.0 (0.0-0.2) /100WBC Sodium 133 L (135-145) mmol/L Potassium 4.8 (3.3-5.1) mmol/L Chloride 96 (96-108) mmol/L Carbon Dioxide 25 (22-29) mmol/L Anion Gap 17 (12-20) BUN 10 (9-16) mg/dL Creatinine 1.16 (0.5-1.4) mg/dL Estim Creat Clear Calc 94.1 Estimated GFR > 60 POC Glucose (60-115) mg/dL Random Glucose 288 H D (60-115) mg/dL Calcium 10.1 (8.4-10.2) mg/dL Magnesium 1.9 (1.6-2.6) mg/dL Total Bilirubin 0.4 (0.0-1.0) mg/dL Direct Bilirubin 0.2 (0.0-0.5) mg/dL AST 21 D (5-37) U/L ALT 37 (0-40) U/L Alkaline Phosphatase 125 H (39-117) U/L Total Protein 6.9 (6.5-8.0) g/dL Albumin 4.7 (3.5-5.0) g/dL TSH 0.88 (0.32-4.0) uIU/mL Urine Color Urine Appearance Urine pH (5.0-8.0) Ur Specific [place] (1.005-1.025) Urine Protein (NEG-TRACE) MG/DL Urine Glucose (UA) (NEG) MG/DL Urine Ketones (NEG) MG/DL Urine Blood (NEG) Urine Nitrite (NEG) Ur Leukocyte Esterase (NEG) Urine Opiates Screen (Not Detect) Urine Fentanyl Screen (Not Detect) Ur Barbiturates Screen (Not Detect) Valproic Acid (50.0-100.0) mcg/mL Ur Phencyclidine Scrn (Not Detect) Ur Amphetamines Screen (Not Detect) U Benzodiazepines Scrn (Not Detect) Urine Cocaine Screen (Not Detect) U Marijuana (THC) Screen (Not Detect) Ethyl Alcohol mg/dL COVID-19 (LINDA) Negative (Negative) COVID-19 Clin Com See Note 11/25/21 11/25/21 Range/Units 15:38 15:38 WBC (4.8-10.8) X10*3/uL RBC (4.60-5.80) X10*6/uL Hgb (14.0-18.0) g/dl Hct (42.0-52.0) % MCV (80.0-98.0) fL MCH (27.0-33.0) pg MCHC (31.0-36.0) g/dl RDW (11.0-16.0) % Plt Count (160-400) X10*3/uL MPV (9.4-12.4) fL Immature Gran % (Auto) (0.0-0.4) % Neut % (Auto) (45-73) % Lymph % (Auto) (20-40) % [place] % (Auto) (2-11) % Eos % (Auto) (0-4) % Baso % (Auto) (0-2) % Lymph # (Auto) (1.2-4.9) X10*3/uL [place] # (Auto) (0.1-1.2) X10*3/uL Eos # (Auto) (0.0-0.4) X10*3/uL Baso # (Auto) (0.0-0.2) X10*3/uL Abs Immat Gran (auto) (0.00-0.03) X10*3/uL Absolute Neuts (auto) (2.0-8.3) x10*3/uL Absolute Nucleated RBC (0.0-0.012) X10*3/uL Nucleated RBC % (auto) (0.0-0.2) /100WBC Sodium (135-145) mmol/L Potassium (3.3-5.1) mmol/L Chloride (96-108) mmol/L Carbon Dioxide (22-29) mmol/L Anion Gap (12-20) BUN (9-16) mg/dL Creatinine (0.5-1.4) mg/dL Estim Creat Clear Calc Estimated GFR POC Glucose (60-115) mg/dL Random Glucose (60-115) mg/dL Calcium (8.4-10.2) mg/dL Magnesium (1.6-2.6) mg/dL Total Bilirubin (0.0-1.0) mg/dL Direct Bilirubin (0.0-0.5) mg/dL AST (5-37) U/L ALT (0-40) U/L Alkaline Phosphatase (39-117) U/L Total Protein (6.5-8.0) g/dL Albumin (3.5-5.0) g/dL TSH (0.32-4.0) uIU/mL Urine Color Urine Appearance Urine pH (5.0-8.0) Ur Specific [place] (1.005-1.025) Urine Protein (NEG-TRACE) MG/DL Urine Glucose (UA) (NEG) MG/DL Urine Ketones (NEG) MG/DL Urine Blood (NEG) Urine Nitrite (NEG) Ur Leukocyte Esterase (NEG) Urine Opiates Screen (Not Detect) Urine Fentanyl Screen (Not Detect) Ur Barbiturates Screen (Not Detect) Valproic Acid 48.5 L (50.0-100.0) mcg/mL Ur Phencyclidine Scrn (Not Detect) Ur Amphetamines Screen (Not Detect) U Benzodiazepines Scrn (Not Detect) Urine Cocaine Screen (Not Detect) U Marijuana (THC) Screen (Not Detect) Ethyl Alcohol < 10 mg/dL COVID-19 (LINDA) (Negative) COVID-19 Clin Com Critical Care Time Critical Care Time Critical Care Time: No Discharge Plan Discharge Clinical Impression: Acute anxiety Patient Disposition: Still a Patient Prescriptions: No Action (DME) lancets [FreeStyle Lancets] 28 gauge misc topical DAILY 0RF divalproex 500 mg Tablet Extended Release 24 Hr 500 mg PO BID 30 Days Qty: 60 0RF clonazepam 0.5 mg Tablet 0.5 mg PO BID 30 Days Qty: 60 0RF atorvastatin 20 mg tablet 1 tab PO DAILY 30 Days Qty: 30 0RF clozapine 100 mg tablet 300 mg PO BEDTIME Qty: 45 1RF gabapentin 800 mg tablet 1 tab PO TID Qty: 90 0RF trazodone 100 mg tablet 200 mg PO BEDTIME Qty: 60 0RF metformin 1,000 mg tablet 1 tab PO BID Qty: 60 0RF benztropine 1 mg tablet 1 tab PO BID Qty: 60 0RF gabapentin 100 mg capsule 1 cap PO TID Qty: 90 0RF metoprolol succinate 25 mg tablet extended release 24 hr 1 tab PO DAILY Qty: 30 0RF lorazepam 1 mg tablet 1 mg PO BID PRN (Reason: Anxiety) Qty: 30 1RF glipizide 5 mg tablet 1 tab PO DAILY Qty: 30 0RF hydroxyzine HCl 25 mg tablet 1 tab PO DAILY PRN (Reason: Anxiety) 0RF acetaminophen [Tylenol] 325 mg tablet 650 mg PO Q4H PRN (Reason: fever or pain) Qty: 30 0RF
[2021-11-25] MEDS: LORazepam 1 MG TABLET PO ×3 (13:41→17:42)
[2021-11-25 14:03] VITALS: RESP 15
[2021-11-25 15:32] LABS: Appearance Urine CLEAR; Color Urine YELLOW; Glucose Urine UA 100 MG/DL (NEG); Leukocyte Esterase Urine NEG (NEG); Nitrite Urine NEG (NEG); PH 6.5 (5.0-8.0); Specific Gravity - Urine <= 1.005 (1.005-1.025); Urine Blood NEG (NEG); Urine Ketones NEG (NEG); Urine Protein NEG (NEG-TRACE)
[2021-11-25 15:42] LABS: COVID-19 Test Negative (Negative)
[2021-11-25 15:43] LABS: MANUAL DIFF FLAG NO
[2021-11-25 15:45] LABS: Basophils Absolute Auto 0.1 X10*3/uL (0.0-0.2); Basophils Percent Auto 0.5 % (0-2); Eosinophils Absolute Auto 0.1 X10*3/uL (0.0-0.4); Eosinophils Percent Auto 0.7 % (0-4); Hematocrit 41.7 % (42.0-52.0); Hemoglobin 14.2 g/dl (14.0-18.0); Imm Gran Abs Auto 0.06 X10*3/uL (0.00-0.03); Imm Gran Pct Auto 0.5 % (0.0-0.4); Lymphocytes Absolute Auto 1.9 X10*3/uL (1.2-4.9); Lymphocytes Percent Auto 15.2 % (20-40); Mean Corpuscular HGB Conc 34.1 g/dl (31.0-36.0); Mean Corpuscular Hemoglobin 27.9 pg (27.0-33.0); Mean Corpuscular Volume 81.9 fL (80.0-98.0); Mean Platelet Volume 9.5 fL (9.4-12.4); Monocytes Absolute Auto 0.8 X10*3/uL (0.1-1.2); Monocytes Percent Auto 6.8 % (2-11); Neutrophils Absolute Auto 9.4 x10*3/uL (2.0-8.3); Neutrophils Percent Auto 76.3 % (45-73); Platelet Count 275 X10*3/uL (160-400); Red Blood Count 5.09 X10*6/uL (4.60-5.80); Red Cell Distribution Width 12.8 % (11.0-16.0); White Blood Count 12.3 X10*3/uL (4.8-10.8)
[2021-11-25 15:45] LABS: Amphetamine Screen Urine Not Detected (Not Detect); Barbiturates, Urine Not Detected (Not Detect); Benzodiazepines Screen Urine Not Detected (Not Detect); Cannabinoid Screen Urine Not Detected (Not Detect); Cocaine Screen Urine Not Detected (Not Detect); Fentanyl, urine Not Detected (Not Detect); Opiate Screen Urine Not Detected (Not Detect); Phencyclidine Screen Urine Not Detected (Not Detect)
[2021-11-25 15:58] LABS: Ethanol < 10 mg/dL
[2021-11-25 16:02] LABS: Alanine Aminotransferase 37 U/L (0-40); Albumin Level 4.7 g/dL (3.5-5.0); Alkaline Phosphatase 125 U/L (39-117); Anion Gap 17 (12-20); Aspartate Amino Transferase 21 U/L (5-37); Bilirubin Direct 0.2 mg/dL (0.0-0.5); Bilirubin Total 0.4 mg/dL (0.0-1.0); Blood Urea Nitrogen 10 mg/dL (9-16); Calcium 10.1 mg/dL (8.4-10.2); Carbon Dioxide 25 mmol/L (22-29); Chloride 96 mmol/L (96-108); Creatinine Clr Calc Pharmacy 94.1; Estimated Glomerular Filt Rate > 60; Glucose Random 288 mg/dL (60-115); Magnesium 1.9 mg/dL (1.6-2.6); Potassium 4.8 mmol/L (3.3-5.1); Sodium 133 mmol/L (135-145); Total Protein 6.9 g/dL (6.5-8.0)
[2021-11-25 16:07] LABS: Valproate 48.5 mcg/mL (50.0-100.0)
--- NOTE | 2021-11-25 16:10 | PC.NURSE ---
Francesca sent to [facility]
[2021-11-25 16:22] LABS: TSH reflex Free T4 0.88 uIU/mL (0.32-4.0)
[2021-11-25] MEDS: hydrOXYzine HCL 25 MG TABLET PO (17:42)
[2021-11-25] MEDS: metFORMIN HCl 1,000 MG TABLET 1000 MG PO (20:07)
[2021-11-25 20:40] VITALS: BP 129/65; PULSE 97; RESP 18; O2SAT 97
[2021-11-25] MEDS: Gabapentin 400 MG CAPSULE 800 MG PO (20:42)
[2021-11-25] MEDS: Benztropine Mesylate 1 MG TABLET PO (20:42)
[2021-11-25] MEDS: Gabapentin 100 MG CAPSULE PO (20:42)
[2021-11-25] MEDS: Divalproex Sodium ER 500 MG TAB.ER.24H PO (20:42)
[2021-11-25] MEDS: clonazePAM 0.5 MG TABLET PO (20:42)
[2021-11-25] MEDS: traZODone HCL 100 MG TABLET 200 MG PO (20:42)
[2021-11-25] MEDS: cloZAPine 100 MG TABLET 300 MG PO (20:55)
--- NOTE | 2021-11-26 | ECG_ITS ---
Test Reason : MED CLEARANCE Blood Pressure : / mmHG Vent. Rate : 095 BPM Atrial Rate : 095 BPM P-R Int : 150 ms QRS Dur : 088 ms QT Int : 350 ms P-R-T Axes : 026 010 048 degrees QTc Int : 439 ms Normal sinus rhythm Normal ECG When compared with ECG of 08-JUL-2021 12:21, No significant change was found Referred By: Trish Marley Electronically Signed By:DUDLEY DAWN MD
[2021-11-26 04:39] VITALS: BP 128/82; PULSE 98; RESP 17; TEMP 36.6; O2SAT 98
[2021-11-26] MEDS: LORazepam 1 MG TABLET PO (04:39)
--- NOTE | 2021-11-26 04:42 | PC.NURSE ---
Patient just woke up after sleeping 6 hours uninterrupted, restless and tremulous, HR 98, PRN Ativan 1 mg administered for comfort pending effect, had incontinent of bladder episode, incontinent support provided, disposition per care team is voluntary bed search, VSS, will continue to monitor.
--- NOTE | 2021-11-26 07:03 | PC.NURSE ---
Report received. PT currently sleeping, respirations even and unlabored, in no apparent distress. Pt is inpatient bedsearch.
[2021-11-26] MEDS: Atorvastatin Calcium 20 MG TABLET PO (10:13)
[2021-11-26] MEDS: Gabapentin 400 MG CAPSULE 800 MG PO ×3 (10:13→21:32)
[2021-11-26] MEDS: Divalproex Sodium ER 500 MG TAB.ER.24H PO ×2 (10:13→21:32)
[2021-11-26] MEDS: clonazePAM 0.5 MG TABLET PO ×2 (10:13→21:31)
[2021-11-26] MEDS: Gabapentin 100 MG CAPSULE PO ×3 (10:13→21:31)
[2021-11-26] MEDS: metFORMIN HCl 1,000 MG TABLET 1000 MG PO ×2 (10:13→18:02)
[2021-11-26] MEDS: Benztropine Mesylate 1 MG TABLET PO ×2 (10:14→21:31)
[2021-11-26] MEDS: glipiZIDE 5 MG TABLET PO (10:38)
[2021-11-26 10:39] VITALS: BP 101/54; PULSE 96; TEMP 36.6; O2SAT 97
[2021-11-26 12:17] LABS: COVID-19 Test Negative (Negative); IDNOW Serial# 16C4AD1C
[2021-11-26 16:28] LABS: Valproate 43.3 mcg/mL (50.0-100.0)
[2021-11-26 16:49] VITALS: BP 120/73; PULSE 120; RESP 17; TEMP 36.6; O2SAT 98
--- NOTE | 2021-11-26 16:50 | PC.ADMIT ---
PT admitted on a conditional voluntary with a diagnosis of schizoaffective disorder. PT is calm and cooperative with admission process. PT reports that since wednesday he has had a restless feeling in his body stating that he feels trapped in his body. PT states it is similar to restless leg syndrome but it is his whole body. PT states that he was worried he would become suicidal if he was stuck in his apartment for too many days. Pt reports a similar situation happened in 2019 and he was hospitalized at that time. PT reports that he has not slept since wednesday and this is causing increased anxiety and depression. Pt denies SI/HI and hallucinations. He reports that he has been taking his medications as prescribed, he is a non-insulin dependent diabetic . Pt is covid negative, his tox screen was negative. 15 minute safety checks initiated for safety.
[2021-11-26 18:08] LABS: Glucose, Whole Blood 220 mg/dL (60-115)
[2021-11-26 21:20] VITALS: BP 140/73; PULSE 113; TEMP 36.5; O2SAT 98
[2021-11-26] MEDS: cloZAPine 100 MG TABLET 300 MG PO (21:31)
[2021-11-26] MEDS: traZODone HCL 100 MG TABLET 200 MG PO (21:32)
[2021-11-26] MEDS: QUEtiapine Fumarate 50 MG TABLET PO (22:41)
[2021-11-27 06:00] VITALS: BP 118/68; PULSE 56; RESP 14; TEMP 36.6; O2SAT 95
[2021-11-27 06:24] LABS: Glucose, Whole Blood 181 mg/dL (60-115)
[2021-11-27 07:00] VITALS: BMI 35.2
[2021-11-27] MEDS: metFORMIN HCl 1,000 MG TABLET 1000 MG PO ×2 (08:35→16:51)
[2021-11-27] MEDS: Benztropine Mesylate 1 MG TABLET PO ×2 (08:35→21:37)
[2021-11-27] MEDS: Divalproex Sodium ER 500 MG TAB.ER.24H PO ×2 (08:35→21:37)
[2021-11-27] MEDS: Gabapentin 100 MG CAPSULE PO ×3 (08:35→21:37)
[2021-11-27] MEDS: Atorvastatin Calcium 20 MG TABLET PO (08:35)
[2021-11-27] MEDS: Gabapentin 400 MG CAPSULE 800 MG PO ×3 (08:35→21:38)
[2021-11-27] MEDS: Metoprolol Succinate ER 25 MG TAB.ER.24H PO (08:35)
[2021-11-27] MEDS: glipiZIDE 5 MG TABLET PO (08:35)
[2021-11-27] MEDS: clonazePAM 0.5 MG TABLET PO (08:35)
[2021-11-27 09:41] LABS: Sodium 136 mmol/L (135-145)
[2021-11-27 09:49] LABS: Cholesterol 142 mg/dL; HDL Cholesterol 23 mg/dL; LDL Cholesterol Calculated 83 mg/dl; Magnesium 2.1 mg/dL (1.6-2.6); Triglycerides 182 mg/dL
[2021-11-27 10:29] LABS: Folate 18.7 ng/mL (> or = 4.0); Vitamin B12 547 pg/mL (200-900)
[2021-11-27 12:17] LABS: Glucose, Whole Blood 128 mg/dL (60-115)
--- NOTE | 2021-11-27 13:25 | P.HPPS_ITS ---
HPI Date of Service: 11/27/21 Chief Complaint: Schizoaffective disorder-Bipolar type Sources of Information: patient interviewed, chart reviewed and crisis/core team assessment reviewed HPI Subjective Notes: [facility]st Warning and Conditional Voluntary Healthcare Proxy: No Guardianship: No Medical Problems Affecting Mental Status: No Narrative: 46 yo male, hx of schizoaffective disorder, presents with an increase in restlessness, insomnia, feeling dysregulated and experiencing uncharacteristic agitation (screaming and swearing at times) along with an increase in anxiety. Pt reports sx present since 11/22/21. He presents for medication evaluation and changes. Today, pt reports Seroquel helped last night. He reported a similiar symptom set when admitted in 2019 where his depakote was increased and Klonopin was added to provide relief. Pt reports he has much gratitude for being admitted- I know you have many sick people to help. I have been suffering for a few days and appreciate any help you can give me. He reports no specific precipitant to sx and cannot identify any current stressor which may have contributed. Past Psychiatric History: history of recurrence psychiatric hospitalizations with psychosis and depression history of multiple psychiatric hospitalizations. IP: 2019 last admit to [facility]. Hx of [facility]TU, [facility], [facility], [facility] along with several [facility] admits Out Pt: [facility], Chris Goins-psychopharmacology Med Trials: Several Medical Evaluation Reviewed: Yes FOR[facility], LAT[facility] Medical History Diabetes 1.5, managed as type 2 Family History: mother with dementia Social History: patient was raised by his parents his father is his mother is in [place] he is single no children he is not employed never Substance History: Denies Trauma History: no trauma history Diagnostics Vital Signs (24Hr): Vital Signs - 24 hr 11/26/21 16:49 11/26/21 21:20 11/27/21 06:00 Temperature 97.9 F 97.7 F 97.9 F Pulse Rate 120 H 113 H 56 Respiratory Rate 17 14 Blood Pressure 120/73 140/73 H 118/68 Pulse Oximetry 98 98 95 BMI result Body Mass Index 35.7 Labs Results: 11/25/21 15:38 11/27/21 08:22 Labs: Laboratory Results - last 48 hr 04/01/1111/25/21 11/25/21 15:15 15:15 15:16 WBC RBC Hgb Hct MCV MCH MCHC RDW Plt Count MPV Immature Gran % (Auto) Neut % (Auto) Lymph % (Auto) Rolette % (Auto) Eos % (Auto) Baso % (Auto) Lymph # (Auto) Rolette # (Auto) Eos # (Auto) Baso # (Auto) Abs Immat Gran (auto) Absolute Neuts (auto) Absolute Nucleated RBC Nucleated RBC % (auto) Sodium Potassium Chloride Carbon Dioxide Anion Gap BUN Creatinine Estim Creat Clear Calc Estimated GFR POC Glucose Random Glucose Calcium Magnesium Total Bilirubin Direct Bilirubin AST ALT Alkaline Phosphatase Total Protein Albumin Triglycerides Cholesterol LDL Cholesterol, Calc HDL Cholesterol Vitamin B12 Folate TSH Urine Color YELLOW Urine Appearance CLEAR Urine pH 6.5 Ur Specific Oakley <= 1.005 Urine Protein NEG Urine Glucose (UA) 100 H Urine Ketones NEG Urine Blood NEG Urine Nitrite NEG Ur Leukocyte Esterase NEG Urine Opiates Screen Not Detected Urine Fentanyl Screen Not Detected Ur Barbiturates Screen Not Detected Valproic Acid Ur Phencyclidine Scrn Not Detected Ur Amphetamines Screen Not Detected U Benzodiazepines Scrn Not Detected Urine Cocaine Screen Not Detected U Marijuana (THC) Screen Not Detected Ethyl Alcohol COVID-19 (LINDA) Negative COVID-19 Clin Com See Note 11/25/21 11/25/21 11/25/21 15:38 15:38 15:38 WBC 12.3 H RBC 5.09 Hgb 14.2 Hct 41.7 L MCV 81.9 MCH 27.9 MCHC 34.1 RDW 12.8 Plt Count 275 MPV 9.5 Immature Gran % (Auto) 0.5 H Neut % (Auto) 76.3 H Lymph % (Auto) 15.2 L Rolette % (Auto) 6.8 Eos % (Auto) 0.7 Baso % (Auto) 0.5 Lymph # (Auto) 1.9 Rolette # (Auto) 0.8 Eos # (Auto) 0.1 Baso # (Auto) 0.1 Abs Immat Gran (auto) 0.06 H Absolute Neuts (auto) 9.4 H Absolute Nucleated RBC 0.000 Nucleated RBC % (auto) 0.0 Sodium 133 L Potassium 4.8 Chloride 96 Carbon Dioxide 25 Anion Gap 17 BUN 10 Creatinine 1.16 Estim Creat Clear Calc 94.1 Estimated GFR > 60 POC Glucose Random Glucose 288 H D Calcium 10.1 Magnesium 1.9 Total Bilirubin 0.4 Direct Bilirubin 0.2 AST 21 D ALT 37 Alkaline Phosphatase 125 H Total Protein 6.9 Albumin 4.7 Triglycerides Cholesterol LDL Cholesterol, Calc HDL Cholesterol Vitamin B12 Folate TSH 0.88 Urine Color Urine Appearance Urine pH Ur Specific Oakley Urine Protein Urine Glucose (UA) Urine Ketones Urine Blood Urine Nitrite Ur Leukocyte Esterase Urine Opiates Screen Urine Fentanyl Screen Ur Barbiturates Screen Valproic Acid Ur Phencyclidine Scrn Ur Amphetamines Screen U Benzodiazepines Scrn Urine Cocaine Screen U Marijuana (THC) Screen Ethyl Alcohol < 10 COVID-19 (LINDA) COVID-19 Clin Com 11/25/21 11/26/21 11/26/21 15:38 11:55 15:52 WBC RBC Hgb Hct MCV MCH MCHC RDW Plt Count MPV Immature Gran % (Auto) Neut % (Auto) Lymph % (Auto) Rolette % (Auto) Eos % (Auto) Baso % (Auto) Lymph # (Auto) Rolette # (Auto) Eos # (Auto) Baso # (Auto) Abs Immat Gran (auto) Absolute Neuts (auto) Absolute Nucleated RBC Nucleated RBC % (auto) Sodium Potassium Chloride Carbon Dioxide Anion Gap BUN Creatinine Estim Creat Clear Calc Estimated GFR POC Glucose Random Glucose Calcium Magnesium Total Bilirubin Direct Bilirubin AST ALT Alkaline Phosphatase Total Protein Albumin Triglycerides Cholesterol LDL Cholesterol, Calc HDL Cholesterol Vitamin B12 Folate TSH Urine Color Urine Appearance Urine pH Ur Specific Oakley Urine Protein Urine Glucose (UA) Urine Ketones Urine Blood Urine Nitrite Ur Leukocyte Esterase Urine Opiates Screen Urine Fentanyl Screen Ur Barbiturates Screen Valproic Acid 48.5 L 43.3 L Ur Phencyclidine Scrn Ur Amphetamines Screen U Benzodiazepines Scrn Urine Cocaine Screen U Marijuana (THC) Screen Ethyl Alcohol COVID-19 (LINDA) Negative COVID-19 Clin Com See Note 11/26/21 11/27/21 11/27/21 18:01 06:20 08:22 WBC RBC Hgb Hct MCV MCH MCHC RDW Plt Count MPV Immature Gran % (Auto) Neut % (Auto) Lymph % (Auto) Rolette % (Auto) Eos % (Auto) Baso % (Auto) Lymph # (Auto) Rolette # (Auto) Eos # (Auto) Baso # (Auto) Abs Immat Gran (auto) Absolute Neuts (auto) Absolute Nucleated RBC Nucleated RBC % (auto) Sodium Potassium Chloride Carbon Dioxide Anion Gap BUN Creatinine Estim Creat Clear Calc Estimated GFR POC Glucose 220 H 181 H Random Glucose Calcium Magnesium 2.1 Total Bilirubin Direct Bilirubin AST ALT Alkaline Phosphatase Total Protein Albumin Triglycerides 182 Cholesterol 142 LDL Cholesterol, Calc 83 HDL Cholesterol 23 Vitamin B12 Folate TSH Urine Color Urine Appearance Urine pH Ur Specific Oakley Urine Protein Urine Glucose (UA) Urine Ketones Urine Blood Urine Nitrite Ur Leukocyte Esterase Urine Opiates Screen Urine Fentanyl Screen Ur Barbiturates Screen Valproic Acid Ur Phencyclidine Scrn Ur Amphetamines Screen U Benzodiazepines Scrn Urine Cocaine Screen U Marijuana (THC) Screen Ethyl Alcohol COVID-19 (LINDA) COVID-19 Clin Com 11/27/21 11/27/21 11/27/21 08:22 08:22 12:13 WBC RBC Hgb Hct MCV MCH MCHC RDW Plt Count MPV Immature Gran % (Auto) Neut % (Auto) Lymph % (Auto) Rolette % (Auto) Eos % (Auto) Baso % (Auto) Lymph # (Auto) Rolette # (Auto) Eos # (Auto) Baso # (Auto) Abs Immat Gran (auto) Absolute Neuts (auto) Absolute Nucleated RBC Nucleated RBC % (auto) Sodium 136 Potassium Chloride Carbon Dioxide Anion Gap BUN Creatinine Estim Creat Clear Calc Estimated GFR POC Glucose 128 H Random Glucose Calcium Magnesium Total Bilirubin Direct Bilirubin AST ALT Alkaline Phosphatase Total Protein Albumin Triglycerides Cholesterol LDL Cholesterol, Calc HDL Cholesterol Vitamin B12 547 Folate 18.7 TSH Urine Color Urine Appearance Urine pH Ur Specific Oakley Urine Protein Urine Glucose (UA) Urine Ketones Urine Blood Urine Nitrite Ur Leukocyte Esterase Urine Opiates Screen Urine Fentanyl Screen Ur Barbiturates Screen Valproic Acid Ur Phencyclidine Scrn Ur Amphetamines Screen U Benzodiazepines Scrn Urine Cocaine Screen U Marijuana (THC) Screen Ethyl Alcohol COVID-19 (LINDA) COVID-19 Clin Com Meds/Allergies Meds Home Medications Acetaminophen (Acetaminophen 325 Mg Tablet) 650 mg PO Q4H PRN PRN Reason: fever or pain Al Hydroxide/Mg Hydroxide (Magnesium Hydrox/Alum Hydrox 30 Ml Oral.Susp) 30 ml PO Q6H PRN PRN Reason: Heartburn/Nausea Atorvastatin Calcium (Atorvastatin Calcium 20 Mg Tablet) 20 mg PO DAILY [facility] [place] Last Admin: 11/27/21 08:35 Dose: 20 mg Documented by: Benztropine Mesylate (Benztropine Mesylate 1 Mg Tablet) 1 mg PO BID [facility] [place] Last Admin: 11/27/21 08:35 Dose: 1 mg Documented by: Clonazepam (Clonazepam 1 Mg Tablet) 1 mg PO BID [facility] [place] Clozapine (Clozapine 100 Mg Tablet) 300 mg PO BEDTIME [facility] [place] Last Admin: 11/26/21 21:31 Dose: 300 mg Documented by: Divalproex Sodium (Divalproex Sodium Er 500 Mg Tab.Er.24h) 500 mg PO BID [facility] [place] Last Admin: 11/27/21 08:35 Dose: 500 mg Documented by: Gabapentin (Gabapentin 100 Mg Capsule) 100 mg PO TID [facility] [place] Last Admin: 11/27/21 14:29 Dose: 100 mg Documented by: Gabapentin (Gabapentin 400 Mg Capsule) 800 mg PO TID [facility] [place] Last Admin: 11/27/21 14:29 Dose: 800 mg Documented by: Glipizide (Glipizide 5 Mg Tablet) 5 mg PO DAILY [facility] [place] Last Admin: 11/27/21 08:35 Dose: 5 mg Documented by: Hydroxyzine HCl (Hydroxyzine Hcl 25 Mg Tablet) 25 mg PO DAILY PRN PRN Reason: Anxiety Last Admin: 11/25/21 17:42 Dose: 25 mg Documented by: Lorazepam (Lorazepam 1 Mg Tablet) 1 mg PO BID PRN PRN Reason: Anxiety Last Admin: 11/26/21 04:39 Dose: 1 mg Documented by: Magnesium Hydroxide (Milk Of Magnesia 30 Ml Oral.Susp) 30 ml PO DAILY PRN PRN Reason: Constipation Metformin HCl (Metformin Hcl 1,000 Mg Tablet) 1,000 mg PO BIDWM [facility] [place] Last Admin: 11/27/21 16:51 Dose: 1,000 mg Documented by: Metoprolol Succinate (Metoprolol Succinate Er 25 Mg Tab.Er.24h) 25 mg PO DAILY [facility] [place]; Protocol Last Admin: 11/27/21 08:35 Dose: 25 mg Documented by: Quetiapine Fumarate (Quetiapine Fumarate 50 Mg Tablet) 50 mg PO BEDTIME PRN PRN Reason: insomnia Last Admin: 11/26/21 22:41 Dose: 50 mg Documented by: Trazodone HCl (Trazodone Hcl 100 Mg Tablet) 200 mg PO BEDTIME [facility] [place] Last Admin: 11/26/21 21:32 Dose: 200 mg Documented by: Allergies Allergies Allergy/AdvReac Type Severity Reaction Status Date / Time haloperidol [From Haldol] Allergy Intermediate Agitated Verified 02/04/21 19:02 lithium Allergy Intermediate Agitated Verified 02/04/21 19:02 oxcarbazepine Allergy Unknown RASH Verified 02/04/21 19:02 [From TRILEPTAL] From Prolixin Allergy Intermediate AKATHESIA Uncoded 02/04/21 19:02 Mental Status Exam Mental Status Exam Patient Appearance: Fatigued and Disheveled Patient Orientation: Person, Place, Time and Situation Level of Consciousness: Alert Patient Behavior: Cooperative, Anxious, Fatigued and Good Eye Contact Mood Description: Depressed, Anxious and Apprehensive Affect Description: Flat Patient Cognition Impaired: No Ability to Follow Directions: Good Speech Pattern: Spontaneous Speech and Soft-Spoken Memory Description: Intact Hallucinations: None (denies) Delusions: Paranoid Ideation (mild) Perceptual Disturbances: Derealization Thought Process: Distracted and Rumination Thought Content: positive for [place], positive for Circumstantial and positive for Suicidal Ideation (denies) Depressive Symptoms: Increased Anxiety, Diff. Making Decisions, Increased Irritability, Difficulty Sleeping, Increased Fatigue, Thoughts of /Suicide (denies), Loss of Energy and Difficulty Concentrating Abnormal Motor Activity Signs and Symptoms: Restlessness Judgement: Fair Assessment & Plan Patient educated on: medication risk/benefits and therapeutic strategies Informed Consent: further education needed Reason for continued inpatient stay Substantial Risk for: inability to function and rapid decompensation
[2021-11-27 18:00] VITALS: BP 128/68; PULSE 95; RESP 16; TEMP 36.5; O2SAT 98
[2021-11-27] MEDS: traZODone HCL 100 MG TABLET 200 MG PO (21:37)
[2021-11-27] MEDS: cloZAPine 100 MG TABLET 300 MG PO (21:37)
[2021-11-27] MEDS: clonazePAM 1 MG TABLET PO (21:38)
[2021-11-27] MEDS: QUEtiapine Fumarate 50 MG TABLET PO (21:59)
[2021-11-27 22:29] LABS: Glucose, Whole Blood 252 mg/dL (60-115)
[2021-11-28 06:00] VITALS: BP 109/57; PULSE 92; RESP 14; TEMP 36.6; O2SAT 98
[2021-11-28 07:05] LABS: Glucose, Whole Blood 201 mg/dL (60-115)
[2021-11-28] MEDS: metFORMIN HCl 1,000 MG TABLET 1000 MG PO (08:30)
[2021-11-28] MEDS: Benztropine Mesylate 1 MG TABLET PO ×2 (08:30→22:37)
[2021-11-28] MEDS: Gabapentin 100 MG CAPSULE PO ×3 (08:30→22:39)
[2021-11-28] MEDS: glipiZIDE 5 MG TABLET PO (08:30)
[2021-11-28] MEDS: Divalproex Sodium ER 500 MG TAB.ER.24H PO (08:30)
[2021-11-28] MEDS: clonazePAM 1 MG TABLET PO ×2 (08:30→22:37)
[2021-11-28] MEDS: Gabapentin 400 MG CAPSULE 800 MG PO ×3 (08:30→22:39)
[2021-11-28] MEDS: Atorvastatin Calcium 20 MG TABLET PO (08:31)
[2021-11-28] MEDS: Metoprolol Succinate ER 25 MG TAB.ER.24H PO (08:31)
[2021-11-28 08:58] LABS: Glucose, Whole Blood 220 mg/dL (60-115)
--- NOTE | 2021-11-28 16:55 | P.PNPSI_ITS ---
Subjective Subjective Date of Service: 11/28/21 Reason For Visit: Schizoaffective disorder-Bipolar type Interim History: The restlessness is less. The anxiety is high . Sleep is improving Can you focus on the anxiety? I appreciate the opportunity to be here. Reports some improvement, in milieu, interacting with peers/team. Asks to focus on anxiety mgt. Medication Compliance: Yes Side effects from medications: No Attending Groups: Intermittent Review of Systems Acute medical concerns: No Medical Review of Systems: unchanged Review of Systems Reports behavioral changes Psychiatric: Reports abnormal sleep pattern, Reports anxiety, Reports behavioral changes, Reports anhedonia and Reports panic attacks Mental Status Exam Mental Status Exam Patient Appearance: Fatigued Patient Orientation: Person, Place, Time and Situation Level of Consciousness: Awake and Alert Patient Behavior: Talkative, Anxious and Good Eye Contact Mood Description: Anxious Affect Description: Constricted Patient Cognition Impaired: No Ability to Follow Directions: Good Speech Pattern: Spontaneous Speech Memory Description: Intact Hallucinations: None Delusions: Paranoid Ideation (mild) Thought Process: Rumination Thought Content: positive for Perseveration and positive for Suicidal Ideation (denies) Depressive Symptoms: Increased Anxiety and Difficulty Concentrating Judgement: Fair Diagnostics Vital Signs (24Hr): Vital Signs - 24 hr 11/27/21 18:00 11/28/21 06:00 Temperature 97.7 F 97.8 F Pulse Rate 95 92 Respiratory Rate 16 14 Blood Pressure 128/68 109/57 L Pulse Oximetry 98 98 BMI result Body Mass Index 35.2 Labs Results: 11/25/21 15:38 11/27/21 08:22 Labs: Laboratory Results - last 48 hr 11/26/21 11/27/21 11/27/21 18:01 06:20 08:22 Sodium POC Glucose 220 H 181 H Magnesium 2.1 Triglycerides 182 Cholesterol 142 LDL Cholesterol, Calc 83 HDL Cholesterol 23 Vitamin B12 Folate 11/27/21 11/27/21 11/27/21 08:22 08:22 12:13 Sodium 136 POC Glucose 128 H Magnesium Triglycerides Cholesterol LDL Cholesterol, Calc HDL Cholesterol Vitamin B12 547 Folate 18.7 11/27/21 11/28/21 11/28/21 22:23 06:54 08:53 Sodium POC Glucose 252 H 201 H 220 H Magnesium Triglycerides Cholesterol LDL Cholesterol, Calc HDL Cholesterol Vitamin B12 Folate Medications Medications Current Medications Acetaminophen (Acetaminophen 325 Mg Tablet) 650 mg PO Q4H PRN PRN Reason: fever or pain Al Hydroxide/Mg Hydroxide (Magnesium Hydrox/Alum Hydrox 30 Ml Oral.Susp) 30 ml PO Q6H PRN PRN Reason: Heartburn/Nausea Atorvastatin Calcium (Atorvastatin Calcium 20 Mg Tablet) 20 mg PO DAILY [facility] Last Admin: 11/28/21 08:31 Dose: 20 mg Documented by: Benztropine Mesylate (Benztropine Mesylate 1 Mg Tablet) 1 mg PO BID [facility] Last Admin: 11/28/21 08:30 Dose: 1 mg Documented by: Clonazepam (Clonazepam 1 Mg Tablet) 1 mg PO BID [facility] Last Admin: 11/28/21 08:30 Dose: 1 mg Documented by: Clozapine (Clozapine 100 Mg Tablet) 300 mg PO BEDTIME [facility] Last Admin: 11/27/21 21:37 Dose: 300 mg Documented by: Divalproex Sodium (Divalproex Sodium Er 500 Mg Tab.Er.24h) 500 mg PO BID [facility] Last Admin: 11/28/21 08:30 Dose: 500 mg Documented by: Gabapentin (Gabapentin 100 Mg Capsule) 100 mg PO TID [facility] Last Admin: 11/28/21 14:06 Dose: 100 mg Documented by: Gabapentin (Gabapentin 400 Mg Capsule) 800 mg PO TID [facility] Last Admin: 11/28/21 14:07 Dose: 800 mg Documented by: Glipizide (Glipizide 5 Mg Tablet) 5 mg PO DAILY [facility] Last Admin: 11/28/21 08:30 Dose: 5 mg Documented by: Hydroxyzine HCl (Hydroxyzine Hcl 25 Mg Tablet) 25 mg PO DAILY PRN PRN Reason: Anxiety Last Admin: 11/25/21 17:42 Dose: 25 mg Documented by: Lorazepam (Lorazepam 1 Mg Tablet) 1 mg PO BID PRN PRN Reason: Anxiety Last Admin: 11/26/21 04:39 Dose: 1 mg Documented by: Magnesium Hydroxide (Milk Of Magnesia 30 Ml Oral.Susp) 30 ml PO DAILY PRN PRN Reason: Constipation Metformin HCl (Metformin Hcl 1,000 Mg Tablet) 1,000 mg PO BIDWM [facility] Last Admin: 11/28/21 08:30 Dose: 1,000 mg Documented by: Metoprolol Succinate (Metoprolol Succinate Er 25 Mg Tab.Er.24h) 25 mg PO DAILY [facility]; Protocol Last Admin: 11/28/21 08:31 Dose: 25 mg Documented by: Quetiapine Fumarate (Quetiapine Fumarate 50 Mg Tablet) 50 mg PO BEDTIME PRN PRN Reason: insomnia Last Admin: 11/27/21 21:59 Dose: 50 mg Documented by: Trazodone HCl (Trazodone Hcl 100 Mg Tablet) 200 mg PO BEDTIME [facility] Last Admin: 11/27/21 21:37 Dose: 200 mg Documented by: Allergies Allergies Allergy/AdvReac Type Severity Reaction Status Date / Time haloperidol [From Haldol] Allergy Intermediate Agitated Verified 02/04/21 19:02 lithium Allergy Intermediate Agitated Verified 02/04/21 19:02 oxcarbazepine Allergy Unknown RASH Verified 02/04/21 19:02 [From TRILEPTAL] From Prolixin Allergy Intermediate AKATHESIA Uncoded 02/04/21 19:02 Assessment & Plan Assessment & Plan (1) Schizoaffective disorder: Status: Acute Code(s): F25.9 - Schizoaffective disorder, unspecified (2) Acute anxiety: Status: Acute Code(s): F41.9 - Anxiety disorder, unspecified Plan 11/28/21: Reports Klonopin increase on 11/27 to be helpful Plan: Increase Depakote to 750 mg bid I spent minutes with the patient and/or on the patient floor today, greater than?50% of which was spent counseling/coordinating care. Patient educated on: medication risk/benefits and therapeutic strategies Informed Consent: understands and further education needed Reason for contiued inpatient stay Substantial Risk for: inability to function and rapid decompensation
[2021-11-28 18:00] VITALS: BP 122/80; PULSE 95; RESP 16; TEMP 36.4; O2SAT 98
[2021-11-28] MEDS: Divalproex Sodium ER 250 MG TAB.ER.24H 750 MG PO (22:35)
[2021-11-28] MEDS: cloZAPine 100 MG TABLET 300 MG PO (22:36)
[2021-11-28] MEDS: traZODone HCL 100 MG TABLET 200 MG PO (22:37)
[2021-11-28] MEDS: QUEtiapine Fumarate 50 MG TABLET PO (22:47)
[2021-11-29 06:00] VITALS: BP 99/60; PULSE 82; RESP 18; TEMP 36; O2SAT 97
[2021-11-29 06:39] LABS: Glucose, Whole Blood 182 mg/dL (60-115)
[2021-11-29 09:00] VITALS: BP 98/55; PULSE 81
[2021-11-29] MEDS: glipiZIDE 5 MG TABLET PO (09:07)
[2021-11-29] MEDS: Atorvastatin Calcium 20 MG TABLET PO (09:07)
[2021-11-29] MEDS: Benztropine Mesylate 1 MG TABLET PO ×2 (09:07→21:24)
[2021-11-29] MEDS: Metoprolol Succinate ER 25 MG TAB.ER.24H PO (09:07)
[2021-11-29] MEDS: metFORMIN HCl 1,000 MG TABLET 1000 MG PO ×2 (09:07→16:08)
[2021-11-29] MEDS: Divalproex Sodium ER 250 MG TAB.ER.24H 750 MG PO ×2 (09:07→21:23)
[2021-11-29] MEDS: Gabapentin 100 MG CAPSULE PO ×3 (09:07→21:24)
[2021-11-29] MEDS: Gabapentin 400 MG CAPSULE 800 MG PO ×3 (09:07→21:24)
[2021-11-29] MEDS: clonazePAM 1 MG TABLET PO ×2 (09:08→21:24)
--- NOTE | 2021-11-29 09:33 | HO.PSYCHPN ---
Subjective Subjective Date of Service: 11/29/21 Reason For Visit: Schizoaffective disorder-Bipolar type Interim History: Patient says that he is okay. He says he still has some anxiety. Primary provider recently increased clonazepam. Patient says that it will take a little time to see if it works. He otherwise denies any complaints or requests. Mental Status Exam Mental Status Exam Narrative: Patient Appearance:?dishevled Patient Orientation:?Person, Place, Time and Situation Level of Consciousness:?Awake and Alert Patient Behavior:?calm, cooperative; adequate Eye Contact Mood Description:? ok Affect Description:?blunted Patient Cognition Impaired:?No Ability to Follow Directions:?Good Speech Pattern:?Spontaneous Speech Memory Description:?Intact Hallucinations:?None Delusions:?Paranoid Ideation (mild) Thought Process:?Rumination Thought Content:?denies SI/HI Depressive Symptoms:?Increased Anxiety and Difficulty Concentrating Judgement:?Fair Diagnostics Vital Signs (24Hr): Vital Signs - 24 hr 11/28/21 18:00 11/29/21 06:00 Temperature 97.6 F 96.8 F Pulse Rate 95 82 Respiratory Rate 16 18 Blood Pressure 122/80 99/60 Pulse Oximetry 98 97 BMI result Body Mass Index 35.2 Labs Results: 11/25/21 15:38 11/27/21 08:22 Labs: Laboratory Results - last 48 hr 11/27/21 11/27/21 11/27/21 08:22 08:22 08:22 Sodium 136 POC Glucose Magnesium 2.1 Triglycerides 182 Cholesterol 142 LDL Cholesterol, Calc 83 HDL Cholesterol 23 Vitamin B12 547 Folate 18.7 11/27/21 11/27/21 11/28/21 12:13 22:23 06:54 Sodium POC Glucose 128 H 252 H 201 H Magnesium Triglycerides Cholesterol LDL Cholesterol, Calc HDL Cholesterol Vitamin B12 Folate 11/28/21 11/29/21 08:53 06:34 Sodium POC Glucose 220 H 182 H Magnesium Triglycerides Cholesterol LDL Cholesterol, Calc HDL Cholesterol Vitamin B12 Folate Medications Medications Current Medications Acetaminophen (Acetaminophen 325 Mg Tablet) 650 mg PO Q4H PRN PRN Reason: fever or pain Al Hydroxide/Mg Hydroxide (Magnesium Hydrox/Alum Hydrox 30 Ml Oral.Susp) 30 ml PO Q6H PRN PRN Reason: Heartburn/Nausea Atorvastatin Calcium (Atorvastatin Calcium 20 Mg Tablet) 20 mg PO DAILY [facility] Last Admin: 11/29/21 09:07 Dose: 20 mg Documented by: Benztropine Mesylate (Benztropine Mesylate 1 Mg Tablet) 1 mg PO BID [facility] Last Admin: 11/29/21 09:07 Dose: 1 mg Documented by: Clonazepam (Clonazepam 1 Mg Tablet) 1 mg PO BID [facility] Last Admin: 11/29/21 09:08 Dose: 1 mg Documented by: Clozapine (Clozapine 100 Mg Tablet) 300 mg PO BEDTIME [facility] Last Admin: 11/28/21 22:36 Dose: 300 mg Documented by: Divalproex Sodium (Divalproex Sodium Er 250 Mg Tab.Er.24h) 750 mg PO BID [facility] Last Admin: 11/29/21 09:07 Dose: 750 mg Documented by: Gabapentin (Gabapentin 100 Mg Capsule) 100 mg PO TID [facility] Last Admin: 11/29/21 09:07 Dose: 100 mg Documented by: Gabapentin (Gabapentin 400 Mg Capsule) 800 mg PO TID [facility] Last Admin: 11/29/21 09:07 Dose: 800 mg Documented by: Glipizide (Glipizide 5 Mg Tablet) 5 mg PO DAILY [facility] Last Admin: 11/29/21 09:07 Dose: 5 mg Documented by: Hydroxyzine HCl (Hydroxyzine Hcl 25 Mg Tablet) 25 mg PO DAILY PRN PRN Reason: Anxiety Last Admin: 11/25/21 17:42 Dose: 25 mg Documented by: Lorazepam (Lorazepam 1 Mg Tablet) 1 mg PO BID PRN PRN Reason: Anxiety Last Admin: 11/26/21 04:39 Dose: 1 mg Documented by: Magnesium Hydroxide (Milk Of Magnesia 30 Ml Oral.Susp) 30 ml PO DAILY PRN PRN Reason: Constipation Metformin HCl (Metformin Hcl 1,000 Mg Tablet) 1,000 mg PO BIDWM [facility] Last Admin: 11/29/21 09:07 Dose: 1,000 mg Documented by: Metoprolol Succinate (Metoprolol Succinate Er 25 Mg Tab.Er.24h) 25 mg PO DAILY [facility]; Protocol Last Admin: 11/29/21 09:07 Dose: 25 mg Documented by: Quetiapine Fumarate (Quetiapine Fumarate 50 Mg Tablet) 50 mg PO BEDTIME PRN PRN Reason: insomnia Last Admin: 11/28/21 22:47 Dose: 50 mg Documented by: Trazodone HCl (Trazodone Hcl 100 Mg Tablet) 200 mg PO BEDTIME [facility] Last Admin: 11/28/21 22:37 Dose: 200 mg Documented by: Allergies Allergies Allergy/AdvReac Type Severity Reaction Status Date / Time haloperidol [From Haldol] Allergy Intermediate Agitated Verified 02/04/21 19:02 lithium Allergy Intermediate Agitated Verified 02/04/21 19:02 oxcarbazepine Allergy Unknown RASH Verified 02/04/21 19:02 [From TRILEPTAL] From Prolixin Allergy Intermediate AKATHESIA Uncoded 02/04/21 19:02 Assessment & Plan Assessment & Plan (1) Schizoaffective disorder: Status: Acute Code(s): F25.9 - Schizoaffective disorder, unspecified (2) Acute anxiety: Status: Acute Code(s): F41.9 - Anxiety disorder, unspecified Plan 11/28/21: Reports Klonopin increase on 11/27 to be helpful Plan: Increase Depakote to 750 mg bid 11/29/21 continue current treatment plan I spent minutes with the patient and/or on the patient floor today, greater than?50% of which was spent counseling/coordinating care. Reason for contiued inpatient stay Substantial Risk for: rapid decompensation
[2021-11-29 16:40] VITALS: BP 131/78; PULSE 97; RESP 16; TEMP 36.4; O2SAT 97
[2021-11-29] MEDS: cloZAPine 100 MG TABLET 300 MG PO (21:24)
[2021-11-29] MEDS: traZODone HCL 100 MG TABLET 200 MG PO (21:24)
[2021-11-29] MEDS: QUEtiapine Fumarate 50 MG TABLET PO (21:25)
[2021-11-29 21:35] LABS: Glucose, Whole Blood 224 mg/dL (60-115)
[2021-11-30 08:20] VITALS: BP 106/58; PULSE 87; TEMP 36.4; O2SAT 97
[2021-11-30] MEDS: Divalproex Sodium ER 250 MG TAB.ER.24H 750 MG PO ×2 (08:39→21:22)
[2021-11-30] MEDS: clonazePAM 1 MG TABLET PO ×2 (08:39→21:22)
[2021-11-30] MEDS: glipiZIDE 5 MG TABLET PO (08:39)
[2021-11-30] MEDS: Gabapentin 400 MG CAPSULE 800 MG PO ×3 (08:39→21:21)
[2021-11-30] MEDS: Gabapentin 100 MG CAPSULE PO ×3 (08:39→21:21)
[2021-11-30] MEDS: Metoprolol Succinate ER 25 MG TAB.ER.24H PO (08:39)
[2021-11-30] MEDS: Benztropine Mesylate 1 MG TABLET PO ×2 (08:39→21:21)
[2021-11-30] MEDS: metFORMIN HCl 1,000 MG TABLET 1000 MG PO ×2 (08:39→17:52)
[2021-11-30] MEDS: Atorvastatin Calcium 20 MG TABLET PO (08:39)
--- NOTE | 2021-11-30 13:12 | HO.PSYCHPN ---
Subjective Subjective Date of Service: 11/30/21 Reason For Visit: Schizoaffective disorder-Bipolar type Interim History: Patient said that he is doing better than on admission. He said prior to coming to the hospital he could not sit still or lie down or sleep. Patient reports that he is sleeping much better now. He shares that he has enjoyed psych groups very much that the staff are very kind which he finds to be healing for him and his mind 1 of the most important parts of getting better. Patient also shared that he is enjoying the milieu and has benefitted from interactions with peers. Patient would like to continue on current medication. Mental Status Exam Mental Status Exam Narrative: Patient Appearance: unkempt Patient Orientation:?Person, Place, Time and Situation Level of Consciousness:?Awake and Alert Patient Behavior:?calm, cooperative; adequate Eye Contact Mood Description:? better Affect Description:?congruent, more naturally expressive Patient Cognition Impaired:?No Ability to Follow Directions:?Good Speech Pattern:?Spontaneous Speech Memory Description:?Intact Hallucinations:?None Delusions:?none expressed; recent Paranoid Ideation (mild) Thought Process:?goal oriented; little circumstantial Thought Content:?denies SI/HI Judgement:?Fair Diagnostics Vital Signs (24Hr): Vital Signs - 24 hr 11/29/21 16:40 11/30/21 08:20 Temperature 97.6 F 97.5 F Pulse Rate 97 87 Respiratory Rate 16 Blood Pressure 131/78 106/58 L Pulse Oximetry 97 97 BMI result Body Mass Index 35.2 Labs Results: 11/25/21 15:38 11/27/21 08:22 Labs: Laboratory Results - last 48 hr 11/29/21 11/29/21 06:34 21:30 POC Glucose 182 H 224 H Medications Medications Current Medications Acetaminophen (Acetaminophen 325 Mg Tablet) 650 mg PO Q4H PRN PRN Reason: fever or pain Al Hydroxide/Mg Hydroxide (Magnesium Hydrox/Alum Hydrox 30 Ml Oral.Susp) 30 ml PO Q6H PRN PRN Reason: Heartburn/Nausea Atorvastatin Calcium (Atorvastatin Calcium 20 Mg Tablet) 20 mg PO DAILY [facility] Last Admin: 11/30/21 08:39 Dose: 20 mg Documented by: Benztropine Mesylate (Benztropine Mesylate 1 Mg Tablet) 1 mg PO BID [facility] Last Admin: 11/30/21 08:39 Dose: 1 mg Documented by: Clonazepam (Clonazepam 1 Mg Tablet) 1 mg PO BID [facility] Last Admin: 11/30/21 08:39 Dose: 1 mg Documented by: Clozapine (Clozapine 100 Mg Tablet) 300 mg PO BEDTIME [facility] Last Admin: 11/29/21 21:24 Dose: 300 mg Documented by: Divalproex Sodium (Divalproex Sodium Er 250 Mg Tab.Er.24h) 750 mg PO BID [facility] Last Admin: 11/30/21 08:39 Dose: 750 mg Documented by: Gabapentin (Gabapentin 100 Mg Capsule) 100 mg PO TID [facility] Last Admin: 11/30/21 08:39 Dose: 100 mg Documented by: Gabapentin (Gabapentin 400 Mg Capsule) 800 mg PO TID [facility] Last Admin: 11/30/21 08:39 Dose: 800 mg Documented by: Glipizide (Glipizide 5 Mg Tablet) 5 mg PO DAILY [facility] Last Admin: 11/30/21 08:39 Dose: 5 mg Documented by: Hydroxyzine HCl (Hydroxyzine Hcl 25 Mg Tablet) 25 mg PO DAILY PRN PRN Reason: Anxiety Last Admin: 11/25/21 17:42 Dose: 25 mg Documented by: Lorazepam (Lorazepam 1 Mg Tablet) 1 mg PO BID PRN PRN Reason: Anxiety Last Admin: 11/26/21 04:39 Dose: 1 mg Documented by: Magnesium Hydroxide (Milk Of Magnesia 30 Ml Oral.Susp) 30 ml PO DAILY PRN PRN Reason: Constipation Metformin HCl (Metformin Hcl 1,000 Mg Tablet) 1,000 mg PO BIDWM [facility] Last Admin: 11/30/21 08:39 Dose: 1,000 mg Documented by: Metoprolol Succinate (Metoprolol Succinate Er 25 Mg Tab.Er.24h) 25 mg PO DAILY [facility]; Protocol Last Admin: 11/30/21 08:39 Dose: 25 mg Documented by: Quetiapine Fumarate (Quetiapine Fumarate 50 Mg Tablet) 50 mg PO BEDTIME PRN PRN Reason: insomnia Last Admin: 11/29/21 21:25 Dose: 50 mg Documented by: Trazodone HCl (Trazodone Hcl 100 Mg Tablet) 200 mg PO BEDTIME [facility] Last Admin: 11/29/21 21:24 Dose: 200 mg Documented by: Allergies Allergies Allergy/AdvReac Type Severity Reaction Status Date / Time haloperidol [From Haldol] Allergy Intermediate Agitated Verified 02/04/21 19:02 lithium Allergy Intermediate Agitated Verified 02/04/21 19:02 oxcarbazepine Allergy Unknown RASH Verified 02/04/21 19:02 [From TRILEPTAL] From Prolixin Allergy Intermediate AKATHESIA Uncoded 02/04/21 19:02 Assessment & Plan Assessment & Plan (1) Schizoaffective disorder: Status: Acute Code(s): F25.9 - Schizoaffective disorder, unspecified (2) Acute anxiety: Status: Acute Code(s): F41.9 - Anxiety disorder, unspecified Plan 11/28/21: Reports Klonopin increase on 11/27 to be helpful Plan: Increase Depakote to 750 mg bid 11/29/21 continue current treatment plan 11/30/21 continue current treatment plan I spent minutes with the patient and/or on the patient floor today, greater than?50% of which was spent counseling/coordinating care. Patient educated on: therapeutic strategies Informed Consent: understands Reason for contiued inpatient stay Substantial Risk for: rapid decompensation
[2021-11-30 18:00] VITALS: BP 138/79; PULSE 98; TEMP 36.7; O2SAT 98
[2021-11-30] MEDS: traZODone HCL 100 MG TABLET 200 MG PO (21:19)
[2021-11-30] MEDS: cloZAPine 100 MG TABLET 300 MG PO (21:20)
[2021-11-30] MEDS: QUEtiapine Fumarate 50 MG TABLET PO (21:26)
[2021-11-30 21:37] LABS: Glucose, Whole Blood 179 mg/dL (60-115)
[2021-12-01 08:02] VITALS: BP 120/60; PULSE 78; TEMP 36.2; O2SAT 98
[2021-12-01] MEDS: Metoprolol Succinate ER 25 MG TAB.ER.24H PO (08:36)
[2021-12-01] MEDS: Gabapentin 100 MG CAPSULE PO ×3 (08:36→20:54)
[2021-12-01] MEDS: glipiZIDE 5 MG TABLET PO (08:36)
[2021-12-01] MEDS: Gabapentin 400 MG CAPSULE 800 MG PO ×3 (08:36→20:53)
[2021-12-01] MEDS: metFORMIN HCl 1,000 MG TABLET 1000 MG PO ×2 (08:36→18:18)
[2021-12-01] MEDS: Benztropine Mesylate 1 MG TABLET PO ×2 (08:37→20:53)
[2021-12-01] MEDS: Atorvastatin Calcium 20 MG TABLET PO (08:37)
[2021-12-01] MEDS: Divalproex Sodium ER 250 MG TAB.ER.24H 750 MG PO ×2 (08:37→20:54)
[2021-12-01] MEDS: clonazePAM 1 MG TABLET PO ×2 (08:37→20:54)
--- NOTE | 2021-12-01 16:38 | P.PNPSI_ITS ---
Subjective Subjective Date of Service: 12/01/21 Reason For Visit: Schizoaffective disorder-Bipolar type Subjective Notes: Conditional Voluntary Healthcare Proxy: No Guardianship: No Medical Problems Affecting Mental Status: No Interim History: Pt reports he is feeling improved and obtaining benefit from milieu participation. Feeling less depressed overall per his report. Medication Compliance: Yes Side effects from medications: No Attending Groups: Yes Review of Systems Acute medical concerns: No Medical Review of Systems: unchanged Review of Systems Psychiatric: Reports no additional psychiatric complaints Mental Status Exam Mental Status Exam Patient Appearance: Appropriate Patient Orientation: Person, Place, Time and Situation Level of Consciousness: Alert Patient Behavior: Appropriate, Talkative, Cooperative and Good Eye Contact Mood Description: Anxious Affect Description: Constricted Patient Cognition Impaired: No Ability to Follow Directions: Good Speech Pattern: Spontaneous Speech Memory Description: Intact Hallucinations: None Delusions: Not Present Thought Process: Intact Thought Content: positive for Intact and positive for Suicidal Ideation (denies) Depressive Symptoms: Increased Anxiety and Thoughts of /Suicide (denies) Judgement: Good Diagnostics Vital Signs (24Hr): Vital Signs - 24 hr 11/30/21 18:00 12/01/21 08:02 Temperature 98.1 F 97.2 F Pulse Rate 98 78 Blood Pressure 138/79 120/60 Pulse Oximetry 98 98 BMI result Body Mass Index 35.2 Labs Results: 11/25/21 15:38 11/27/21 08:22 Labs: Laboratory Results - last 48 hr 11/29/21 11/30/21 21:30 21:31 POC Glucose 224 H 179 H Medications Medications Current Medications Acetaminophen (Acetaminophen 325 Mg Tablet) 650 mg PO Q4H PRN PRN Reason: fever or pain Al Hydroxide/Mg Hydroxide (Magnesium Hydrox/Alum Hydrox 30 Ml Oral.Susp) 30 ml PO Q6H PRN PRN Reason: Heartburn/Nausea Atorvastatin Calcium (Atorvastatin Calcium 20 Mg Tablet) 20 mg PO DAILY [facility] Last Admin: 12/01/21 08:37 Dose: 20 mg Documented by: Benztropine Mesylate (Benztropine Mesylate 1 Mg Tablet) 1 mg PO BID [facility] Last Admin: 12/01/21 08:37 Dose: 1 mg Documented by: Clonazepam (Clonazepam 1 Mg Tablet) 1 mg PO BID [facility] Last Admin: 12/01/21 08:37 Dose: 1 mg Documented by: Clozapine (Clozapine 100 Mg Tablet) 300 mg PO BEDTIME [facility] Last Admin: 11/30/21 21:20 Dose: 300 mg Documented by: Divalproex Sodium (Divalproex Sodium Er 250 Mg Tab.Er.24h) 750 mg PO BID [facility] Last Admin: 12/01/21 08:37 Dose: 750 mg Documented by: Gabapentin (Gabapentin 100 Mg Capsule) 100 mg PO TID [facility] Last Admin: 12/01/21 14:38 Dose: 100 mg Documented by: Gabapentin (Gabapentin 400 Mg Capsule) 800 mg PO TID [facility] Last Admin: 12/01/21 14:38 Dose: 800 mg Documented by: Glipizide (Glipizide 5 Mg Tablet) 5 mg PO DAILY [facility] Last Admin: 12/01/21 08:36 Dose: 5 mg Documented by: Hydroxyzine HCl (Hydroxyzine Hcl 25 Mg Tablet) 25 mg PO DAILY PRN PRN Reason: Anxiety Last Admin: 11/25/21 17:42 Dose: 25 mg Documented by: Lorazepam (Lorazepam 1 Mg Tablet) 1 mg PO BID PRN PRN Reason: Anxiety Last Admin: 11/26/21 04:39 Dose: 1 mg Documented by: Magnesium Hydroxide (Milk Of Magnesia 30 Ml Oral.Susp) 30 ml PO DAILY PRN PRN Reason: Constipation Metformin HCl (Metformin Hcl 1,000 Mg Tablet) 1,000 mg PO BIDWM [facility] Last Admin: 12/01/21 08:36 Dose: 1,000 mg Documented by: Metoprolol Succinate (Metoprolol Succinate Er 25 Mg Tab.Er.24h) 25 mg PO DAILY [facility]; Protocol Last Admin: 12/01/21 08:36 Dose: 25 mg Documented by: Quetiapine Fumarate (Quetiapine Fumarate 50 Mg Tablet) 50 mg PO BEDTIME PRN PRN Reason: insomnia Last Admin: 11/30/21 21:26 Dose: 50 mg Documented by: Trazodone HCl (Trazodone Hcl 100 Mg Tablet) 200 mg PO BEDTIME [facility] Last Admin: 11/30/21 21:19 Dose: 200 mg Documented by: Allergies Allergies Allergy/AdvReac Type Severity Reaction Status Date / Time haloperidol [From Haldol] Allergy Intermediate Agitated Verified 02/04/21 19:02 lithium Allergy Intermediate Agitated Verified 02/04/21 19:02 oxcarbazepine Allergy Unknown RASH Verified 02/04/21 19:02 [From TRILEPTAL] From Prolixin Allergy Intermediate AKATHESIA Uncoded 02/04/21 19:02 Assessment & Plan Assessment & Plan (1) Schizoaffective disorder: Status: Acute Code(s): F25.9 - Schizoaffective disorder, unspecified (2) Acute anxiety: Status: Acute Code(s): F41.9 - Anxiety disorder, unspecified Plan 11/28/21: Reports Klonopin increase on 11/27 to be helpful Plan: Increase Depakote to 750 mg bid 11/29/21 continue current treatment plan 11/30/21 continue current treatment plan 12/01/21 Continue current plan of care Discharge planning. I spent minutes with the patient and/or on the patient floor today, greater than?50% of which was spent counseling/coordinating care. Informed Consent: understands Reason for contiued inpatient stay Substantial Risk for: inability to function and rapid decompensation
[2021-12-01] MEDS: traZODone HCL 100 MG TABLET 200 MG PO (20:53)
[2021-12-01] MEDS: cloZAPine 100 MG TABLET 300 MG PO (20:54)
[2021-12-01 21:00] VITALS: BP 138/87; PULSE 83; TEMP 36.3; O2SAT 98
[2021-12-01] MEDS: QUEtiapine Fumarate 50 MG TABLET PO (21:00)
[2021-12-01 21:20] LABS: Glucose, Whole Blood 251 mg/dL (60-115)
[2021-12-02 06:26] LABS: Glucose, Whole Blood 191 mg/dL (60-115)
[2021-12-02 08:00] VITALS: BP 130/73; PULSE 89; TEMP 36.2; O2SAT 95
[2021-12-02] MEDS: Divalproex Sodium ER 250 MG TAB.ER.24H 750 MG PO ×2 (08:00→20:54)
[2021-12-02] MEDS: Gabapentin 100 MG CAPSULE PO ×3 (08:01→20:54)
[2021-12-02] MEDS: Metoprolol Succinate ER 25 MG TAB.ER.24H PO (08:01)
[2021-12-02] MEDS: Benztropine Mesylate 1 MG TABLET PO ×2 (08:01→20:54)
[2021-12-02] MEDS: clonazePAM 1 MG TABLET PO ×2 (08:01→20:54)
[2021-12-02] MEDS: metFORMIN HCl 1,000 MG TABLET 1000 MG PO ×2 (08:01→16:35)
[2021-12-02] MEDS: Atorvastatin Calcium 20 MG TABLET PO (08:01)
[2021-12-02] MEDS: glipiZIDE 5 MG TABLET PO (08:01)
[2021-12-02] MEDS: Gabapentin 400 MG CAPSULE 800 MG PO ×3 (08:01→20:54)
[2021-12-02 08:16] LABS: Neut%MD 44.6 %; Neutrophils Absolute Auto 3.5 x10*3/uL (2.0-8.3); WBCANC 7.8 X10*3/uL
[2021-12-02 13:31] LABS: Creatinine Clr Calc Pharmacy 100.3; Estimated Glomerular Filt Rate > 60
--- NOTE | 2021-12-02 14:49 | HO.PSYCHPN ---
Subjective Subjective Date of Service: 12/02/21 Reason For Visit: Schizoaffective disorder-Bipolar type Subjective Notes: Conditional Voluntary Healthcare Proxy: No Guardianship: No Medical Problems Affecting Mental Status: No Interim History: I am getting there, but I am not ready to leave. I am 9-10% better than when I came in I can sleep I can sit still for 20 minutes . Denies perceptual alterations, denies feeling frightened or paranoid. Continues to focus on restlessness and anxiety. Believes he needs to attend more groups to assist with symptom mgt. Does not feel prepared or ready to discuss discharge. Confirms this with his social contact worker as well. Medication Compliance: Yes Side effects from medications: No Attending Groups: Yes (listens, participates, on topic) Review of Systems Acute medical concerns: No Medical Review of Systems: unchanged Review of Systems Psychiatric: Reports anxiety (restlessness) Mental Status Exam Mental Status Exam Patient Appearance: Appropriate Patient Orientation: Person, Place, Time and Situation Level of Consciousness: Alert Patient Behavior: Appropriate, Talkative, Cooperative and Good Eye Contact Mood Description: Anxious Affect Description: Constricted Patient Cognition Impaired: No Ability to Follow Directions: Good Speech Pattern: Spontaneous Speech Memory Description: Intact Hallucinations: None Delusions: Not Present Thought Process: Intact Thought Content: positive for Intact and positive for Suicidal Ideation (denies) Depressive Symptoms: Increased Anxiety and Thoughts of /Suicide (denies) Judgement: Good Diagnostics Vital Signs (24Hr): Vital Signs - 24 hr 12/01/21 21:00 12/02/21 08:00 Temperature 97.4 F 97.2 F Pulse Rate 83 89 Blood Pressure 138/87 130/73 Pulse Oximetry 98 95 BMI result Body Mass Index 35.2 Labs Results: 11/25/21 15:38 12/02/21 13:06 Labs: Laboratory Results - last 48 hr 11/30/21 12/01/21 12/02/21 21:31 21:17 06:10 Absolute Neuts (auto) Creatinine Estim Creat Clear Calc Estimated GFR POC Glucose 179 H 251 H 191 H 12/02/21 12/02/21 08:07 13:06 Absolute Neuts (auto) 3.5 Creatinine 1.08 Estim Creat Clear Calc 100.3 Estimated GFR > 60 POC Glucose Medications Medications Current Medications Acetaminophen (Acetaminophen 325 Mg Tablet) 650 mg PO Q4H PRN PRN Reason: fever or pain Al Hydroxide/Mg Hydroxide (Magnesium Hydrox/Alum Hydrox 30 Ml Oral.Susp) 30 ml PO Q6H PRN PRN Reason: Heartburn/Nausea Atorvastatin Calcium (Atorvastatin Calcium 20 Mg Tablet) 20 mg PO DAILY [facility] Last Admin: 12/02/21 08:01 Dose: 20 mg Documented by: Benztropine Mesylate (Benztropine Mesylate 1 Mg Tablet) 1 mg PO BID [facility] Last Admin: 12/02/21 08:01 Dose: 1 mg Documented by: Clonazepam (Clonazepam 1 Mg Tablet) 1 mg PO BID [facility] Last Admin: 12/02/21 08:01 Dose: 1 mg Documented by: Clozapine (Clozapine 100 Mg Tablet) 300 mg PO BEDTIME [facility] Last Admin: 12/01/21 20:54 Dose: 300 mg Documented by: Divalproex Sodium (Divalproex Sodium Er 250 Mg Tab.Er.24h) 750 mg PO BID [facility] Last Admin: 12/02/21 08:00 Dose: 750 mg Documented by: Gabapentin (Gabapentin 100 Mg Capsule) 100 mg PO TID [facility] Last Admin: 12/02/21 14:31 Dose: 100 mg Documented by: Gabapentin (Gabapentin 400 Mg Capsule) 800 mg PO TID [facility] Last Admin: 12/02/21 14:31 Dose: 800 mg Documented by: Glipizide (Glipizide 5 Mg Tablet) 5 mg PO DAILY [facility] Last Admin: 12/02/21 08:01 Dose: 5 mg Documented by: Hydroxyzine HCl (Hydroxyzine Hcl 25 Mg Tablet) 25 mg PO DAILY PRN PRN Reason: Anxiety Last Admin: 11/25/21 17:42 Dose: 25 mg Documented by: Lorazepam (Lorazepam 1 Mg Tablet) 1 mg PO BID PRN PRN Reason: Anxiety Last Admin: 11/26/21 04:39 Dose: 1 mg Documented by: Magnesium Hydroxide (Milk Of Magnesia 30 Ml Oral.Susp) 30 ml PO DAILY PRN PRN Reason: Constipation Metformin HCl (Metformin Hcl 1,000 Mg Tablet) 1,000 mg PO BIDWM [facility] Last Admin: 12/02/21 08:01 Dose: 1,000 mg Documented by: Metoprolol Succinate (Metoprolol Succinate Er 25 Mg Tab.Er.24h) 25 mg PO DAILY [facility]; Protocol Last Admin: 12/02/21 08:01 Dose: 25 mg Documented by: Quetiapine Fumarate (Quetiapine Fumarate 50 Mg Tablet) 50 mg PO BEDTIME PRN PRN Reason: insomnia Last Admin: 12/01/21 21:00 Dose: 50 mg Documented by: Trazodone HCl (Trazodone Hcl 100 Mg Tablet) 200 mg PO BEDTIME [facility] Last Admin: 12/01/21 20:53 Dose: 200 mg Documented by: Allergies Allergies Allergy/AdvReac Type Severity Reaction Status Date / Time haloperidol [From Haldol] Allergy Intermediate Agitated Verified 02/04/21 19:02 lithium Allergy Intermediate Agitated Verified 02/04/21 19:02 oxcarbazepine Allergy Unknown RASH Verified 02/04/21 19:02 [From TRILEPTAL] From Prolixin Allergy Intermediate AKATHESIA Uncoded 02/04/21 19:02 Assessment & Plan Assessment & Plan (1) Schizoaffective disorder: Status: Acute Code(s): F25.9 - Schizoaffective disorder, unspecified (2) Acute anxiety: Status: Acute Code(s): F41.9 - Anxiety disorder, unspecified Plan 11/28/21: Reports Klonopin increase on 11/27 to be helpful Plan: Increase Depakote to 750 mg bid 11/29/21 continue current treatment plan 11/30/21 continue current treatment plan 12/01/21 Continue current plan of care Discharge planning. 12/02/21 Continue current regime. I spent minutes with the patient and/or on the patient floor today, greater than?50% of which was spent counseling/coordinating care. Patient educated on: therapeutic strategies Informed Consent: further education needed Reason for contiued inpatient stay Substantial Risk for: inability to function and rapid decompensation
[2021-12-02 16:10] VITALS: BP 120/70; PULSE 95; TEMP 36.6
[2021-12-02] MEDS: cloZAPine 100 MG TABLET 300 MG PO (20:54)
[2021-12-02] MEDS: traZODone HCL 100 MG TABLET 200 MG PO (20:54)
[2021-12-02] MEDS: QUEtiapine Fumarate 50 MG TABLET PO (20:57)
[2021-12-03 08:43] VITALS: BP 117/77; PULSE 76; TEMP 36.5; O2SAT 98
[2021-12-03] MEDS: Divalproex Sodium ER 250 MG TAB.ER.24H 750 MG PO ×2 (08:43→21:05)
[2021-12-03] MEDS: Benztropine Mesylate 1 MG TABLET PO ×2 (08:43→21:06)
[2021-12-03] MEDS: Metoprolol Succinate ER 25 MG TAB.ER.24H PO (08:43)
[2021-12-03] MEDS: glipiZIDE 5 MG TABLET PO (08:44)
[2021-12-03] MEDS: clonazePAM 1 MG TABLET PO ×2 (08:44→21:06)
[2021-12-03] MEDS: Atorvastatin Calcium 20 MG TABLET PO (08:44)
[2021-12-03] MEDS: metFORMIN HCl 1,000 MG TABLET 1000 MG PO ×2 (08:44→16:37)
[2021-12-03] MEDS: Gabapentin 400 MG CAPSULE 800 MG PO ×3 (08:44→21:05)
[2021-12-03] MEDS: Gabapentin 100 MG CAPSULE PO ×3 (08:44→21:05)
[2021-12-03 08:55] LABS: Glucose, Whole Blood 182 mg/dL (60-115)
[2021-12-03] MEDS: LORazepam 1 MG TABLET PO (12:48)
--- NOTE | 2021-12-03 16:09 | HO.PSYCHPN ---
Subjective Subjective Date of Service: 12/03/21 Reason For Visit: Schizoaffective disorder-Bipolar type Subjective Notes: Conditional Voluntary Healthcare Proxy: No Guardianship: No Medical Problems Affecting Mental Status: No Interim History: Reports anxiety 8/10, depression 5/10 and sleep to be poor. Asks about a new med regime . States restlessness controls him and he would like to work on complete relief . Attending groups, stating they are a great relief for me . Medication Compliance: Yes Side effects from medications: No Attending Groups: Yes Review of Systems Acute medical concerns: No Medical Review of Systems: unchanged Review of Systems Psychiatric: Reports abnormal sleep pattern, Reports anxiety and Reports depression Mental Status Exam Mental Status Exam Patient Appearance: Appropriate Patient Orientation: Person, Place, Time and Situation Level of Consciousness: Alert Patient Behavior: Appropriate, Talkative, Cooperative and Good Eye Contact Mood Description: Anxious Affect Description: Constricted Patient Cognition Impaired: No Ability to Follow Directions: Good Speech Pattern: Spontaneous Speech Memory Description: Intact Hallucinations: None Delusions: Not Present Thought Process: Intact Thought Content: positive for Intact, positive for Thought Blocking and positive for Suicidal Ideation (denies) Depressive Symptoms: Increased Anxiety and Thoughts of /Suicide (denies) Judgement: Good Diagnostics Vital Signs (24Hr): Vital Signs - 24 hr 12/02/21 16:10 12/03/21 08:43 Temperature 97.9 F 97.7 F Pulse Rate 95 76 Blood Pressure 120/70 117/77 Pulse Oximetry 98 BMI result Body Mass Index 35.2 Labs Results: 11/25/21 15:38 12/02/21 13:06 Labs: Laboratory Results - last 48 hr 12/01/21 12/02/21 12/02/21 21:17 06:10 08:07 Absolute Neuts (auto) 3.5 Creatinine Estim Creat Clear Calc Estimated GFR POC Glucose 251 H 191 H 12/02/21 12/03/21 13:06 08:50 Absolute Neuts (auto) Creatinine 1.08 Estim Creat Clear Calc 100.3 Estimated GFR > 60 POC Glucose 182 H Medications Medications Current Medications Acetaminophen (Acetaminophen 325 Mg Tablet) 650 mg PO Q4H PRN PRN Reason: fever or pain Al Hydroxide/Mg Hydroxide (Magnesium Hydrox/Alum Hydrox 30 Ml Oral.Susp) 30 ml PO Q6H PRN PRN Reason: Heartburn/Nausea Atorvastatin Calcium (Atorvastatin Calcium 20 Mg Tablet) 20 mg PO DAILY [facility] Last Admin: 12/03/21 08:44 Dose: 20 mg Documented by: Benztropine Mesylate (Benztropine Mesylate 1 Mg Tablet) 1 mg PO BID [facility] Last Admin: 12/03/21 08:43 Dose: 1 mg Documented by: Clonazepam (Clonazepam 1 Mg Tablet) 1 mg PO BID [facility] Last Admin: 12/03/21 08:44 Dose: 1 mg Documented by: Clozapine (Clozapine 100 Mg Tablet) 300 mg PO BEDTIME [facility] Last Admin: 12/02/21 20:54 Dose: 300 mg Documented by: Divalproex Sodium (Divalproex Sodium Er 250 Mg Tab.Er.24h) 750 mg PO BID [facility] Last Admin: 12/03/21 08:43 Dose: 750 mg Documented by: Gabapentin (Gabapentin 100 Mg Capsule) 100 mg PO TID [facility] Last Admin: 12/03/21 14:44 Dose: 100 mg Documented by: Gabapentin (Gabapentin 400 Mg Capsule) 800 mg PO TID [facility] Last Admin: 12/03/21 14:44 Dose: 800 mg Documented by: Glipizide (Glipizide 5 Mg Tablet) 5 mg PO DAILY [facility] Last Admin: 12/03/21 08:44 Dose: 5 mg Documented by: Hydroxyzine HCl (Hydroxyzine Hcl 25 Mg Tablet) 25 mg PO DAILY PRN PRN Reason: Anxiety Last Admin: 11/25/21 17:42 Dose: 25 mg Documented by: Lorazepam (Lorazepam 1 Mg Tablet) 1 mg PO BID PRN PRN Reason: Anxiety Last Admin: 12/03/21 12:48 Dose: 1 mg Documented by: Magnesium Hydroxide (Milk Of Magnesia 30 Ml Oral.Susp) 30 ml PO DAILY PRN PRN Reason: Constipation Metformin HCl (Metformin Hcl 1,000 Mg Tablet) 1,000 mg PO BIDWM [facility] Last Admin: 12/03/21 08:44 Dose: 1,000 mg Documented by: Metoprolol Succinate (Metoprolol Succinate Er 25 Mg Tab.Er.24h) 25 mg PO DAILY [facility]; Protocol Last Admin: 12/03/21 08:43 Dose: 25 mg Documented by: Quetiapine Fumarate (Quetiapine Fumarate 50 Mg Tablet) 50 mg PO BEDTIME PRN PRN Reason: insomnia Last Admin: 12/02/21 20:57 Dose: 50 mg Documented by: Trazodone HCl (Trazodone Hcl 100 Mg Tablet) 200 mg PO BEDTIME [facility] Last Admin: 12/02/21 20:54 Dose: 200 mg Documented by: Allergies Allergies Allergy/AdvReac Type Severity Reaction Status Date / Time haloperidol [From Haldol] Allergy Intermediate Agitated Verified 02/04/21 19:02 lithium Allergy Intermediate Agitated Verified 02/04/21 19:02 oxcarbazepine Allergy Unknown RASH Verified 02/04/21 19:02 [From TRILEPTAL] From Prolixin Allergy Intermediate AKATHESIA Uncoded 02/04/21 19:02 Assessment & Plan Assessment & Plan (1) Schizoaffective disorder: Status: Acute Code(s): F25.9 - Schizoaffective disorder, unspecified (2) Acute anxiety: Status: Acute Code(s): F41.9 - Anxiety disorder, unspecified Plan 11/28/21: Reports Klonopin increase on 11/27 to be helpful Plan: Increase Depakote to 750 mg bid 11/29/21 continue current treatment plan 11/30/21 continue current treatment plan 12/01/21 Continue current plan of care Discharge planning. 12/02/21 Continue current regime. 12/03/21 Remeron 7.5 mg hs to address reports of sleep disruption, anxiety 04/01, depression 12/30. I spent minutes with the patient and/or on the patient floor today, greater than?50% of which was spent counseling/coordinating care. Patient educated on: therapeutic strategies Informed Consent: understands and further education needed Reason for contiued inpatient stay Substantial Risk for: inability to function and rapid decompensation
[2021-12-03 20:29] VITALS: BP 127/67; PULSE 96; TEMP 36.6; O2SAT 97
[2021-12-03 20:36] LABS: Glucose, Whole Blood 257 mg/dL (60-115)
[2021-12-03] MEDS: Mirtazapine 7.5 MG TABLET PO (21:05)
[2021-12-03] MEDS: cloZAPine 100 MG TABLET 300 MG PO (21:06)
[2021-12-03] MEDS: traZODone HCL 100 MG TABLET 200 MG PO (21:06)
[2021-12-04 06:21] LABS: Glucose, Whole Blood 192 mg/dL (60-115)
[2021-12-04 08:30] VITALS: BP 130/77; PULSE 84; TEMP 36.1
[2021-12-04] MEDS: Divalproex Sodium ER 250 MG TAB.ER.24H 750 MG PO ×2 (08:54→21:42)
[2021-12-04] MEDS: Gabapentin 400 MG CAPSULE 800 MG PO ×3 (08:54→21:41)
[2021-12-04] MEDS: clonazePAM 1 MG TABLET PO ×2 (08:55→21:42)
[2021-12-04] MEDS: glipiZIDE 5 MG TABLET PO (08:55)
[2021-12-04] MEDS: Gabapentin 100 MG CAPSULE PO ×3 (08:55→21:43)
[2021-12-04] MEDS: Benztropine Mesylate 1 MG TABLET PO ×2 (08:55→21:44)
[2021-12-04] MEDS: Metoprolol Succinate ER 25 MG TAB.ER.24H PO (08:55)
[2021-12-04] MEDS: metFORMIN HCl 1,000 MG TABLET 1000 MG PO ×2 (08:55→16:38)
[2021-12-04] MEDS: Atorvastatin Calcium 20 MG TABLET PO (08:55)
--- NOTE | 2021-12-04 16:25 | P.PNPSI_ITS ---
Subjective Subjective Date of Service: 12/04/21 Reason For Visit: Schizoaffective disorder-Bipolar type Subjective Notes: Conditional Voluntary Healthcare Proxy: No Guardianship: No Medical Problems Affecting Mental Status: No Interim History: Edward reports improved sleep, denies feeling overmedicated. Agrees to a transition to respite on 12/09. Discussed facial rash, dry skin, eczema sx. He reports this was a reaction to a razor used to shave on the unit. Discussed treatment options. Denies pain, no noted sx of infection. States the main issue for the past year has been his feeling of restlessness and he has been attempting to manage this symptom. Medication Compliance: Yes Side effects from medications: No Attending Groups: Yes Review of Systems Acute medical concerns: No Medical Review of Systems: unchanged Review of Systems Psychiatric: Reports abnormal sleep pattern, Reports anxiety and Reports depression Mental Status Exam Mental Status Exam Patient Appearance: Appropriate Patient Orientation: Person, Place, Time and Situation Level of Consciousness: Alert Patient Behavior: Appropriate, Talkative, Cooperative and Good Eye Contact Mood Description: Anxious Affect Description: Constricted Patient Cognition Impaired: No Ability to Follow Directions: Good Speech Pattern: Spontaneous Speech Memory Description: Intact Hallucinations: None Delusions: Not Present Thought Process: Intact Thought Content: positive for Intact, positive for Thought Blocking and positive for Suicidal Ideation (denies) Depressive Symptoms: Increased Anxiety and Thoughts of /Suicide (denies) Judgement: Good Diagnostics Vital Signs (24Hr): Vital Signs - 24 hr 12/03/21 20:29 12/04/21 08:30 Temperature 97.9 F 96.9 F Pulse Rate 96 84 Blood Pressure 127/67 130/77 Pulse Oximetry 97 BMI result Body Mass Index 35.2 Labs Results: 11/25/21 15:38 12/02/21 13:06 Labs: Laboratory Results - last 48 hr 12/03/21 12/03/21 12/04/21 08:50 20:32 06:10 POC Glucose 182 H 257 H 192 H Medications Medications Current Medications Acetaminophen (Acetaminophen 325 Mg Tablet) 650 mg PO Q4H PRN PRN Reason: fever or pain Al Hydroxide/Mg Hydroxide (Magnesium Hydrox/Alum Hydrox 30 Ml Oral.Susp) 30 ml PO Q6H PRN PRN Reason: Heartburn/Nausea Atorvastatin Calcium (Atorvastatin Calcium 20 Mg Tablet) 20 mg PO DAILY [facility] Last Admin: 12/04/21 08:55 Dose: 20 mg Documented by: Benztropine Mesylate (Benztropine Mesylate 1 Mg Tablet) 1 mg PO BID [facility] Last Admin: 12/04/21 08:55 Dose: 1 mg Documented by: Clonazepam (Clonazepam 1 Mg Tablet) 1 mg PO BID [facility] Last Admin: 12/04/21 08:55 Dose: 1 mg Documented by: Clozapine (Clozapine 100 Mg Tablet) 300 mg PO BEDTIME [facility] Last Admin: 12/03/21 21:06 Dose: 300 mg Documented by: Divalproex Sodium (Divalproex Sodium Er 250 Mg Tab.Er.24h) 750 mg PO BID [facility] Last Admin: 12/04/21 08:54 Dose: 750 mg Documented by: Gabapentin (Gabapentin 100 Mg Capsule) 100 mg PO TID [facility] Last Admin: 12/04/21 15:50 Dose: 100 mg Documented by: Gabapentin (Gabapentin 400 Mg Capsule) 800 mg PO TID [facility] Last Admin: 12/04/21 15:50 Dose: 800 mg Documented by: Glipizide (Glipizide 5 Mg Tablet) 5 mg PO DAILY [facility] Last Admin: 12/04/21 08:55 Dose: 5 mg Documented by: Hydroxyzine HCl (Hydroxyzine Hcl 25 Mg Tablet) 25 mg PO DAILY PRN PRN Reason: Anxiety Last Admin: 11/25/21 17:42 Dose: 25 mg Documented by: Lorazepam (Lorazepam 1 Mg Tablet) 1 mg PO BID PRN PRN Reason: Anxiety Last Admin: 12/03/21 12:48 Dose: 1 mg Documented by: Magnesium Hydroxide (Milk Of Magnesia 30 Ml Oral.Susp) 30 ml PO DAILY PRN PRN Reason: Constipation Metformin HCl (Metformin Hcl 1,000 Mg Tablet) 1,000 mg PO BIDWM [facility] Last Admin: 12/04/21 08:55 Dose: 1,000 mg Documented by: Metoprolol Succinate (Metoprolol Succinate Er 25 Mg Tab.Er.24h) 25 mg PO DAILY [facility]; Protocol Last Admin: 12/04/21 08:55 Dose: 25 mg Documented by: Mirtazapine (Mirtazapine 7.5 Mg Tablet) 7.5 mg PO BEDTIME [facility] Last Admin: 12/03/21 21:05 Dose: 7.5 mg Documented by: Multi-Ingred Cream/Lotion/Oil/Oint (Mineral Oil/Petrolatum,White 106 Gm Tube) 1 appl TOPICAL TID PRN; Protocol PRN Reason: dry skin Quetiapine Fumarate (Quetiapine Fumarate 50 Mg Tablet) 50 mg PO BEDTIME PRN PRN Reason: insomnia Last Admin: 12/02/21 20:57 Dose: 50 mg Documented by: Trazodone HCl (Trazodone Hcl 100 Mg Tablet) 200 mg PO BEDTIME [facility] Last Admin: 12/03/21 21:06 Dose: 200 mg Documented by: Allergies Allergies Allergy/AdvReac Type Severity Reaction Status Date / Time haloperidol [From Haldol] Allergy Intermediate Agitated Verified 02/04/21 19:02 lithium Allergy Intermediate Agitated Verified 02/04/21 19:02 oxcarbazepine Allergy Unknown RASH Verified 02/04/21 19:02 [From TRILEPTAL] From Prolixin Allergy Intermediate AKATHESIA Uncoded 02/04/21 19:02 Assessment & Plan Assessment & Plan (1) Schizoaffective disorder: Status: Acute Code(s): F25.9 - Schizoaffective disorder, unspecified (2) Acute anxiety: Status: Acute Code(s): F41.9 - Anxiety disorder, unspecified Plan 11/28/21: Reports Klonopin increase on 11/27 to be helpful Plan: Increase Depakote to 750 mg bid 11/29/21 continue current treatment plan 11/30/21 continue current treatment plan 12/01/21 Continue current plan of care Discharge planning. 12/02/21 Continue current regime. 12/03/21 Remeron 7.5 mg hs to address reports of sleep disruption, anxiety 04/01, depression 12/30. 12/04/21 Continue current plan. I spent minutes with the patient and/or on the patient floor today, greater than?50% of which was spent counseling/coordinating care. Patient educated on: medication risk/benefits Informed Consent: understands Reason for contiued inpatient stay Substantial Risk for: inability to function and rapid decompensation
[2021-12-04 16:36] LABS: Glucose, Whole Blood 216 mg/dL (60-115)
[2021-12-04] MEDS: Mineral Oil/Petrolatum,White 106 GM Tube 1 APPL TOPICAL (17:12)
[2021-12-04 18:00] VITALS: BP 130/71; PULSE 104; RESP 18; TEMP 36.2; O2SAT 95
[2021-12-04] MEDS: traZODone HCL 100 MG TABLET 200 MG PO (21:42)
[2021-12-04] MEDS: cloZAPine 100 MG TABLET 300 MG PO (21:43)
[2021-12-04] MEDS: Mirtazapine 7.5 MG TABLET PO (21:44)
[2021-12-05 06:43] LABS: Glucose, Whole Blood 200 mg/dL (60-115)
[2021-12-05 08:15] VITALS: BP 125/72; PULSE 85; TEMP 36.2
[2021-12-05] MEDS: Benztropine Mesylate 1 MG TABLET PO ×2 (08:45→21:16)
[2021-12-05] MEDS: Atorvastatin Calcium 20 MG TABLET PO (08:45)
[2021-12-05] MEDS: metFORMIN HCl 1,000 MG TABLET 1000 MG PO ×2 (08:45→21:16)
[2021-12-05] MEDS: Gabapentin 100 MG CAPSULE PO ×3 (08:45→21:16)
[2021-12-05] MEDS: Metoprolol Succinate ER 25 MG TAB.ER.24H PO (08:45)
[2021-12-05] MEDS: Gabapentin 400 MG CAPSULE 800 MG PO ×3 (08:45→21:16)
[2021-12-05] MEDS: glipiZIDE 5 MG TABLET PO (08:45)
[2021-12-05] MEDS: clonazePAM 1 MG TABLET PO ×2 (08:45→21:15)
[2021-12-05] MEDS: Divalproex Sodium ER 250 MG TAB.ER.24H 750 MG PO ×2 (08:46→21:15)
--- NOTE | 2021-12-05 18:00 | HO.PSYCHPN ---
Subjective Subjective Date of Service: 12/05/21 Reason For Visit: Schizoaffective disorder-Bipolar type Subjective Notes: Conditional Voluntary Healthcare Proxy: No Guardianship: No Medical Problems Affecting Mental Status: No Interim History: Reports feeling improved. Showered, visable in milieu, attending groups and participating. Comfortable with discharge to respite early next week, states this has always been a supportive environment for him. Reports medications are without SE and helpful. No changes today. Medication Compliance: Yes Side effects from medications: No Attending Groups: Yes Review of Systems Acute medical concerns: No Medical Review of Systems: unchanged Review of Systems Reports behavioral changes Psychiatric: Reports anxiety, Reports behavioral changes and Reports suicidal ideation (denies) Mental Status Exam Mental Status Exam Patient Appearance: Appropriate Patient Orientation: Person, Place, Time and Situation Level of Consciousness: Alert Patient Behavior: Talkative and Good Eye Contact Mood Description: Cheerful Affect Description: Constricted Patient Cognition Impaired: No Ability to Follow Directions: Good Speech Pattern: Spontaneous Speech Memory Description: Intact Hallucinations: None Delusions: Not Present Thought Process: Intact and Goal Oriented Thought Content: positive for Intact, positive for Goal Oriented and positive for Suicidal Ideation (denies) Depressive Symptoms: Thoughts of /Suicide (denies) Judgement: Good Diagnostics Vital Signs (24Hr): Vital Signs - 24 hr 12/05/21 08:15 Temperature 97.1 F Pulse Rate 85 Blood Pressure 125/72 BMI result Body Mass Index 35.2 Labs Results: 11/25/21 15:38 12/02/21 13:06 Labs: Laboratory Results - last 48 hr 12/03/21 12/04/21 12/04/21 20:32 06:10 16:32 POC Glucose 257 H 192 H 216 H 12/05/21 06:29 POC Glucose 200 H Medications Medications Current Medications Acetaminophen (Acetaminophen 325 Mg Tablet) 650 mg PO Q4H PRN PRN Reason: fever or pain Al Hydroxide/Mg Hydroxide (Magnesium Hydrox/Alum Hydrox 30 Ml Oral.Susp) 30 ml PO Q6H PRN PRN Reason: Heartburn/Nausea Atorvastatin Calcium (Atorvastatin Calcium 20 Mg Tablet) 20 mg PO DAILY [facility] Last Admin: 12/05/21 08:45 Dose: 20 mg Documented by: Benztropine Mesylate (Benztropine Mesylate 1 Mg Tablet) 1 mg PO BID [facility] Last Admin: 12/05/21 08:45 Dose: 1 mg Documented by: Clonazepam (Clonazepam 1 Mg Tablet) 1 mg PO BID [facility] Last Admin: 12/05/21 08:45 Dose: 1 mg Documented by: Clozapine (Clozapine 100 Mg Tablet) 300 mg PO BEDTIME [facility] Last Admin: 12/04/21 21:43 Dose: 300 mg Documented by: Divalproex Sodium (Divalproex Sodium Er 250 Mg Tab.Er.24h) 750 mg PO BID [facility] Last Admin: 12/05/21 08:46 Dose: 750 mg Documented by: Gabapentin (Gabapentin 100 Mg Capsule) 100 mg PO TID [facility] Last Admin: 12/05/21 15:37 Dose: 100 mg Documented by: Gabapentin (Gabapentin 400 Mg Capsule) 800 mg PO TID [facility] Last Admin: 12/05/21 15:37 Dose: 800 mg Documented by: Glipizide (Glipizide 5 Mg Tablet) 5 mg PO DAILY [facility] Last Admin: 12/05/21 08:45 Dose: 5 mg Documented by: Hydrocortisone (Hydrocortisone 1 % Cream 28.35 Gm Tube) 1 appl TOPICAL BID PRN; Protocol PRN Reason: facial dermatitis Hydroxyzine HCl (Hydroxyzine Hcl 25 Mg Tablet) 25 mg PO DAILY PRN PRN Reason: Anxiety Last Admin: 11/25/21 17:42 Dose: 25 mg Documented by: Lorazepam (Lorazepam 1 Mg Tablet) 1 mg PO BID PRN PRN Reason: Anxiety Last Admin: 12/03/21 12:48 Dose: 1 mg Documented by: Magnesium Hydroxide (Milk Of Magnesia 30 Ml Oral.Susp) 30 ml PO DAILY PRN PRN Reason: Constipation Metformin HCl (Metformin Hcl 1,000 Mg Tablet) 1,000 mg PO BIDWM [facility] Last Admin: 12/05/21 08:45 Dose: 1,000 mg Documented by: Metoprolol Succinate (Metoprolol Succinate Er 25 Mg Tab.Er.24h) 25 mg PO DAILY [facility]; Protocol Last Admin: 12/05/21 08:45 Dose: 25 mg Documented by: Mirtazapine (Mirtazapine 7.5 Mg Tablet) 7.5 mg PO BEDTIME [facility] Last Admin: 12/04/21 21:44 Dose: 7.5 mg Documented by: Multi-Ingred Cream/Lotion/Oil/Oint (Mineral Oil/Petrolatum,White 106 Gm Tube) 1 appl TOPICAL TID PRN; Protocol PRN Reason: dry skin Quetiapine Fumarate (Quetiapine Fumarate 50 Mg Tablet) 50 mg PO BEDTIME PRN PRN Reason: insomnia Last Admin: 12/02/21 20:57 Dose: 50 mg Documented by: Trazodone HCl (Trazodone Hcl 100 Mg Tablet) 200 mg PO BEDTIME [facility] Last Admin: 12/04/21 21:42 Dose: 200 mg Documented by: Allergies Allergies Allergy/AdvReac Type Severity Reaction Status Date / Time haloperidol [From Haldol] Allergy Intermediate Agitated Verified 02/04/21 19:02 lithium Allergy Intermediate Agitated Verified 02/04/21 19:02 oxcarbazepine Allergy Unknown RASH Verified 02/04/21 19:02 [From TRILEPTAL] From Prolixin Allergy Intermediate AKATHESIA Uncoded 02/04/21 19:02 Assessment & Plan Assessment & Plan (1) Schizoaffective disorder: Status: Acute Code(s): F25.9 - Schizoaffective disorder, unspecified (2) Acute anxiety: Status: Acute Code(s): F41.9 - Anxiety disorder, unspecified Plan 11/28/21: Reports Klonopin increase on 11/27 to be helpful Plan: Increase Depakote to 750 mg bid 11/29/21 continue current treatment plan 11/30/21 continue current treatment plan 12/01/21 Continue current plan of care Discharge planning. 12/02/21 Continue current regime. 12/03/21 Remeron 7.5 mg hs to address reports of sleep disruption, anxiety 04/01, depression 12/30. 12/04/21 Continue current plan. 12/05/21 Continue current plan. I spent minutes with the patient and/or on the patient floor today, greater than?50% of which was spent counseling/coordinating care. Patient educated on: medication risk/benefits and therapeutic strategies Informed Consent: understands and further education needed Reason for contiued inpatient stay Substantial Risk for: rapid decompensation
[2021-12-05 20:57] VITALS: BP 117/67; PULSE 98; RESP 20; TEMP 36.4; O2SAT 95
[2021-12-05 21:15] LABS: Glucose, Whole Blood 230 mg/dL (60-115)
[2021-12-05] MEDS: Mirtazapine 7.5 MG TABLET PO (21:15)
[2021-12-05] MEDS: QUEtiapine Fumarate 50 MG TABLET PO (21:15)
[2021-12-05] MEDS: cloZAPine 100 MG TABLET 300 MG PO (21:16)
[2021-12-05] MEDS: traZODone HCL 100 MG TABLET 200 MG PO (21:16)
[2021-12-06 06:45] LABS: Glucose, Whole Blood 160 mg/dL (60-115)
[2021-12-06 08:54] VITALS: BP 112/71; PULSE 96; RESP 16; TEMP 36.2; O2SAT 97
[2021-12-06] MEDS: Divalproex Sodium ER 250 MG TAB.ER.24H 750 MG PO ×2 (08:55→21:06)
[2021-12-06] MEDS: Gabapentin 100 MG CAPSULE PO ×3 (08:55→21:05)
[2021-12-06] MEDS: glipiZIDE 5 MG TABLET PO (08:56)
[2021-12-06] MEDS: Gabapentin 400 MG CAPSULE 800 MG PO ×3 (08:56→21:06)
[2021-12-06] MEDS: Metoprolol Succinate ER 25 MG TAB.ER.24H PO (08:56)
[2021-12-06] MEDS: Atorvastatin Calcium 20 MG TABLET PO (08:56)
[2021-12-06] MEDS: metFORMIN HCl 1,000 MG TABLET 1000 MG PO ×2 (08:56→15:37)
[2021-12-06] MEDS: Benztropine Mesylate 1 MG TABLET PO ×2 (08:56→21:10)
[2021-12-06] MEDS: clonazePAM 1 MG TABLET PO ×2 (08:56→21:08)
[2021-12-06 15:43] LABS: Glucose, Whole Blood 217 mg/dL (60-115)
[2021-12-06 18:00] VITALS: BP 123/67; PULSE 103; RESP 16; TEMP 36.4; O2SAT 97
--- NOTE | 2021-12-06 18:35 | P.PNPSI_ITS ---
Subjective Subjective Date of Service: 12/06/21 Reason For Visit: Schizoaffective disorder-Bipolar type Interim History: Visable, participating, reports feeling improved. Pleased with the plan to step down through respite. States he has had a positive experience with respite in the past. Denies medication SE or questions. Report no sx of concern. Sleep/Appetite are intact Medication Compliance: Yes Side effects from medications: No Attending Groups: Yes Review of Systems Acute medical concerns: No Medical Review of Systems: unchanged Mental Status Exam Mental Status Exam Patient Appearance: Appropriate Patient Orientation: Person, Place, Time and Situation Level of Consciousness: Alert Patient Behavior: Talkative and Good Eye Contact Mood Description: Cheerful Affect Description: Constricted Patient Cognition Impaired: No Ability to Follow Directions: Good Speech Pattern: Spontaneous Speech Memory Description: Intact Hallucinations: None Delusions: Not Present Thought Process: Intact and Goal Oriented Thought Content: positive for Intact, positive for Goal Oriented and positive for Suicidal Ideation (denies) Depressive Symptoms: Thoughts of /Suicide (denies) Judgement: Good Diagnostics Vital Signs (24Hr): Vital Signs - 24 hr 12/05/21 20:57 12/06/21 08:54 Temperature 97.6 F 97.1 F Pulse Rate 98 96 Respiratory Rate 20 16 Blood Pressure 117/67 112/71 Pulse Oximetry 95 97 BMI result Body Mass Index 35.2 Labs Results: 11/25/21 15:38 12/02/21 13:06 Labs: Laboratory Results - last 48 hr 12/05/21 12/05/21 12/06/21 06:29 21:03 06:39 POC Glucose 200 H 230 H 160 H 12/06/21 15:32 POC Glucose 217 H Medications Medications Current Medications Acetaminophen (Acetaminophen 325 Mg Tablet) 650 mg PO Q4H PRN PRN Reason: fever or pain Al Hydroxide/Mg Hydroxide (Magnesium Hydrox/Alum Hydrox 30 Ml Oral.Susp) 30 ml PO Q6H PRN PRN Reason: Heartburn/Nausea Atorvastatin Calcium (Atorvastatin Calcium 20 Mg Tablet) 20 mg PO DAILY [facility] Last Admin: 12/06/21 08:56 Dose: 20 mg Documented by: Benztropine Mesylate (Benztropine Mesylate 1 Mg Tablet) 1 mg PO BID [facility] Last Admin: 12/06/21 08:56 Dose: 1 mg Documented by: Clonazepam (Clonazepam 1 Mg Tablet) 1 mg PO BID [facility] Last Admin: 12/06/21 08:56 Dose: 1 mg Documented by: Clozapine (Clozapine 100 Mg Tablet) 300 mg PO BEDTIME [facility] Last Admin: 12/05/21 21:16 Dose: 300 mg Documented by: Divalproex Sodium (Divalproex Sodium Er 250 Mg Tab.Er.24h) 750 mg PO BID [facility] Last Admin: 12/06/21 08:55 Dose: 750 mg Documented by: Gabapentin (Gabapentin 100 Mg Capsule) 100 mg PO TID [facility] Last Admin: 12/06/21 15:37 Dose: 100 mg Documented by: Gabapentin (Gabapentin 400 Mg Capsule) 800 mg PO TID [facility] Last Admin: 12/06/21 15:37 Dose: 800 mg Documented by: Glipizide (Glipizide 5 Mg Tablet) 5 mg PO DAILY [facility] Last Admin: 12/06/21 08:56 Dose: 5 mg Documented by: Hydrocortisone (Hydrocortisone 1 % Cream 28.35 Gm Tube) 1 appl TOPICAL BID PRN; Protocol PRN Reason: facial dermatitis Hydroxyzine HCl (Hydroxyzine Hcl 25 Mg Tablet) 25 mg PO DAILY PRN PRN Reason: Anxiety Last Admin: 11/25/21 17:42 Dose: 25 mg Documented by: Lorazepam (Lorazepam 1 Mg Tablet) 1 mg PO BID PRN PRN Reason: Anxiety Last Admin: 12/03/21 12:48 Dose: 1 mg Documented by: Magnesium Hydroxide (Milk Of Magnesia 30 Ml Oral.Susp) 30 ml PO DAILY PRN PRN Reason: Constipation Metformin HCl (Metformin Hcl 1,000 Mg Tablet) 1,000 mg PO BIDWM [facility] Last Admin: 12/06/21 15:37 Dose: 1,000 mg Documented by: Metoprolol Succinate (Metoprolol Succinate Er 25 Mg Tab.Er.24h) 25 mg PO DAILY [facility]; Protocol Last Admin: 12/06/21 08:56 Dose: 25 mg Documented by: Mirtazapine (Mirtazapine 7.5 Mg Tablet) 7.5 mg PO BEDTIME [facility] Last Admin: 12/05/21 21:15 Dose: 7.5 mg Documented by: Multi-Ingred Cream/Lotion/Oil/Oint (Mineral Oil/Petrolatum,White 106 Gm Tube) 1 appl TOPICAL TID PRN; Protocol PRN Reason: dry skin Quetiapine Fumarate (Quetiapine Fumarate 50 Mg Tablet) 50 mg PO BEDTIME PRN PRN Reason: insomnia Last Admin: 12/05/21 21:15 Dose: 50 mg Documented by: Trazodone HCl (Trazodone Hcl 100 Mg Tablet) 200 mg PO BEDTIME [facility] Last Admin: 12/05/21 21:16 Dose: 200 mg Documented by: Allergies Allergies Allergy/AdvReac Type Severity Reaction Status Date / Time haloperidol [From Haldol] Allergy Intermediate Agitated Verified 02/04/21 19:02 lithium Allergy Intermediate Agitated Verified 02/04/21 19:02 oxcarbazepine Allergy Unknown RASH Verified 02/04/21 19:02 [From TRILEPTAL] From Prolixin Allergy Intermediate AKATHESIA Uncoded 02/04/21 19:02 Assessment & Plan Assessment & Plan (1) Schizoaffective disorder: Status: Acute Code(s): F25.9 - Schizoaffective disorder, unspecified (2) Acute anxiety: Status: Acute Code(s): F41.9 - Anxiety disorder, unspecified Plan 11/28/21: Reports Klonopin increase on 11/27 to be helpful Plan: Increase Depakote to 750 mg bid 11/29/21 continue current treatment plan 11/30/21 continue current treatment plan 12/01/21 Continue current plan of care Discharge planning. 12/02/21 Continue current regime. 12/03/21 Remeron 7.5 mg hs to address reports of sleep disruption, anxiety 04/01, depression 12/30. 12/04/21 Continue current plan. 12/05/21 Continue current plan. 12/06/21 Continue current plan. I spent minutes with the patient and/or on the patient floor today, greater than?50% of which was spent counseling/coordinating care. Patient educated on: medication risk/benefits and therapeutic strategies Informed Consent: understands Reason for contiued inpatient stay Substantial Risk for: inability to function and rapid decompensation
[2021-12-06] MEDS: traZODone HCL 100 MG TABLET 200 MG PO (21:08)
[2021-12-06] MEDS: Mirtazapine 7.5 MG TABLET PO (21:09)
[2021-12-06] MEDS: cloZAPine 100 MG TABLET 300 MG PO (21:09)
[2021-12-06] MEDS: QUEtiapine Fumarate 50 MG TABLET PO (21:15)
[2021-12-07 06:48] LABS: Glucose, Whole Blood 178 mg/dL (60-115)
[2021-12-07 09:00] VITALS: BP 118/82; PULSE 89; RESP 16; TEMP 35.9; O2SAT 100
[2021-12-07] MEDS: Divalproex Sodium ER 250 MG TAB.ER.24H 750 MG PO ×2 (09:24→21:12)
[2021-12-07] MEDS: metFORMIN HCl 1,000 MG TABLET 1000 MG PO ×2 (09:24→17:13)
[2021-12-07] MEDS: Gabapentin 400 MG CAPSULE 800 MG PO ×3 (09:25→21:14)
[2021-12-07] MEDS: Metoprolol Succinate ER 25 MG TAB.ER.24H PO (09:26)
[2021-12-07] MEDS: Gabapentin 100 MG CAPSULE PO ×3 (09:26→21:13)
[2021-12-07] MEDS: glipiZIDE 5 MG TABLET PO (09:26)
[2021-12-07] MEDS: clonazePAM 1 MG TABLET PO ×2 (09:26→21:14)
[2021-12-07] MEDS: Benztropine Mesylate 1 MG TABLET PO ×2 (09:26→21:14)
[2021-12-07] MEDS: Atorvastatin Calcium 20 MG TABLET PO (09:27)
--- NOTE | 2021-12-07 15:36 | HO.PSYCHPN ---
Subjective Subjective Date of Service: 12/07/21 Reason For Visit: Schizoaffective disorder-Bipolar type Interim History: Pt reports he is feeling well and preparing for a transition to respite. He denies medication questions today. He reports sleep, appetite are intact. He denies medical symptoms. Medication Compliance: Yes Side effects from medications: No Attending Groups: Yes Review of Systems Acute medical concerns: No Medical Review of Systems: unchanged Mental Status Exam Mental Status Exam Patient Appearance: Appropriate Patient Orientation: Person, Place, Time and Situation Level of Consciousness: Alert Patient Behavior: Talkative and Good Eye Contact Mood Description: Cheerful Affect Description: Constricted Patient Cognition Impaired: No Ability to Follow Directions: Good Speech Pattern: Spontaneous Speech Memory Description: Intact Hallucinations: None Delusions: Not Present Thought Process: Intact and Goal Oriented Thought Content: positive for Intact, positive for Goal Oriented and positive for Suicidal Ideation (denies) Depressive Symptoms: Thoughts of /Suicide (denies) Judgement: Good Diagnostics Vital Signs (24Hr): Vital Signs - 24 hr 12/06/21 18:00 12/07/21 09:00 Temperature 97.5 F 96.7 F L Pulse Rate 103 H 89 Respiratory Rate 16 16 Blood Pressure 123/67 118/82 Pulse Oximetry 97 100 BMI result Body Mass Index 35.2 Labs Results: 11/25/21 15:38 12/02/21 13:06 Labs: Laboratory Results - last 48 hr 12/05/21 12/06/21 12/06/21 21:03 06:39 15:32 POC Glucose 230 H 160 H 217 H 12/07/21 06:42 POC Glucose 178 H Medications Medications Current Medications Acetaminophen (Acetaminophen 325 Mg Tablet) 650 mg PO Q4H PRN PRN Reason: fever or pain Al Hydroxide/Mg Hydroxide (Magnesium Hydrox/Alum Hydrox 30 Ml Oral.Susp) 30 ml PO Q6H PRN PRN Reason: Heartburn/Nausea Atorvastatin Calcium (Atorvastatin Calcium 20 Mg Tablet) 20 mg PO DAILY [facility] Last Admin: 12/07/21 09:27 Dose: 20 mg Documented by: Benztropine Mesylate (Benztropine Mesylate 1 Mg Tablet) 1 mg PO BID [facility] Last Admin: 12/07/21 09:26 Dose: 1 mg Documented by: Clonazepam (Clonazepam 1 Mg Tablet) 1 mg PO BID [facility] Last Admin: 12/07/21 09:26 Dose: 1 mg Documented by: Clozapine (Clozapine 100 Mg Tablet) 300 mg PO BEDTIME [facility] Last Admin: 12/06/21 21:09 Dose: 300 mg Documented by: Divalproex Sodium (Divalproex Sodium Er 250 Mg Tab.Er.24h) 750 mg PO BID [facility] Last Admin: 12/07/21 09:24 Dose: 750 mg Documented by: Gabapentin (Gabapentin 100 Mg Capsule) 100 mg PO TID [facility] Last Admin: 12/07/21 14:46 Dose: 100 mg Documented by: Gabapentin (Gabapentin 400 Mg Capsule) 800 mg PO TID [facility] Last Admin: 12/07/21 14:45 Dose: 800 mg Documented by: Glipizide (Glipizide 5 Mg Tablet) 5 mg PO DAILY [facility] Last Admin: 12/07/21 09:26 Dose: 5 mg Documented by: Hydrocortisone (Hydrocortisone 1 % Cream 28.35 Gm Tube) 1 appl TOPICAL BID PRN; Protocol PRN Reason: facial dermatitis Hydroxyzine HCl (Hydroxyzine Hcl 25 Mg Tablet) 25 mg PO DAILY PRN PRN Reason: Anxiety Last Admin: 11/25/21 17:42 Dose: 25 mg Documented by: Lorazepam (Lorazepam 1 Mg Tablet) 1 mg PO BID PRN PRN Reason: Anxiety Last Admin: 12/03/21 12:48 Dose: 1 mg Documented by: Magnesium Hydroxide (Milk Of Magnesia 30 Ml Oral.Susp) 30 ml PO DAILY PRN PRN Reason: Constipation Metformin HCl (Metformin Hcl 1,000 Mg Tablet) 1,000 mg PO BIDWM [facility] Last Admin: 12/07/21 09:24 Dose: 1,000 mg Documented by: Metoprolol Succinate (Metoprolol Succinate Er 25 Mg Tab.Er.24h) 25 mg PO DAILY [facility]; Protocol Last Admin: 12/07/21 09:26 Dose: 25 mg Documented by: Mirtazapine (Mirtazapine 7.5 Mg Tablet) 7.5 mg PO BEDTIME [facility] Last Admin: 12/06/21 21:09 Dose: 7.5 mg Documented by: Multi-Ingred Cream/Lotion/Oil/Oint (Mineral Oil/Petrolatum,White 106 Gm Tube) 1 appl TOPICAL TID PRN; Protocol PRN Reason: dry skin Quetiapine Fumarate (Quetiapine Fumarate 50 Mg Tablet) 50 mg PO BEDTIME PRN PRN Reason: insomnia Last Admin: 12/06/21 21:15 Dose: 50 mg Documented by: Trazodone HCl (Trazodone Hcl 100 Mg Tablet) 200 mg PO BEDTIME [facility] Last Admin: 12/06/21 21:08 Dose: 200 mg Documented by: Allergies Allergies Allergy/AdvReac Type Severity Reaction Status Date / Time haloperidol [From Haldol] Allergy Intermediate Agitated Verified 02/04/21 19:02 lithium Allergy Intermediate Agitated Verified 02/04/21 19:02 oxcarbazepine Allergy Unknown RASH Verified 02/04/21 19:02 [From TRILEPTAL] From Prolixin Allergy Intermediate AKATHESIA Uncoded 02/04/21 19:02 Assessment & Plan Assessment & Plan (1) Schizoaffective disorder: Status: Acute Code(s): F25.9 - Schizoaffective disorder, unspecified (2) Acute anxiety: Status: Acute Code(s): F41.9 - Anxiety disorder, unspecified Plan 11/28/21: Reports Klonopin increase on 11/27 to be helpful Plan: Increase Depakote to 750 mg bid 11/29/21 continue current treatment plan 11/30/21 continue current treatment plan 12/01/21 Continue current plan of care Discharge planning. 12/02/21 Continue current regime. 12/03/21 Remeron 7.5 mg hs to address reports of sleep disruption, anxiety 04/01, depression 12/30. 12/04/21 Continue current plan. 12/05/21 Continue current plan. 12/06/21 Continue current plan. 12/07/21 Continue current plan. I spent minutes with the patient and/or on the patient floor today, greater than?50% of which was spent counseling/coordinating care. Informed Consent: understands Reason for contiued inpatient stay Substantial Risk for: inability to function and rapid decompensation
[2021-12-07 20:49] VITALS: BP 118/78; PULSE 98; RESP 18; TEMP 36.6; O2SAT 96
[2021-12-07 20:51] LABS: Glucose, Whole Blood 323 mg/dL (60-115)
[2021-12-07] MEDS: traZODone HCL 100 MG TABLET 200 MG PO (21:12)
[2021-12-07] MEDS: cloZAPine 100 MG TABLET 300 MG PO (21:13)
[2021-12-07] MEDS: Mirtazapine 7.5 MG TABLET PO (21:14)
[2021-12-07] MEDS: QUEtiapine Fumarate 50 MG TABLET PO (21:15)
[2021-12-08 06:49] LABS: Glucose, Whole Blood 148 mg/dL (60-115)
[2021-12-08 08:00] VITALS: BP 131/63; PULSE 92; TEMP 35.7; O2SAT 98
[2021-12-08] MEDS: Divalproex Sodium ER 250 MG TAB.ER.24H 750 MG PO ×2 (08:41→20:54)
[2021-12-08] MEDS: Gabapentin 400 MG CAPSULE 800 MG PO ×3 (08:43→20:54)
[2021-12-08] MEDS: clonazePAM 1 MG TABLET PO ×2 (08:43→20:54)
[2021-12-08] MEDS: metFORMIN HCl 1,000 MG TABLET 1000 MG PO ×2 (08:43→18:31)
[2021-12-08] MEDS: glipiZIDE 5 MG TABLET PO (08:43)
[2021-12-08] MEDS: Atorvastatin Calcium 20 MG TABLET PO (08:43)
[2021-12-08] MEDS: Gabapentin 100 MG CAPSULE PO ×3 (08:43→20:54)
[2021-12-08] MEDS: Metoprolol Succinate ER 25 MG TAB.ER.24H PO (08:44)
[2021-12-08] MEDS: Benztropine Mesylate 1 MG TABLET PO ×2 (08:44→20:54)
[2021-12-08 13:06] LABS: COVID-19 Test Negative (Negative)
--- NOTE | 2021-12-08 19:27 | HO.PSYCHPN ---
Subjective Subjective Date of Service: 12/08/21 Reason For Visit: Schizoaffective disorder-Bipolar type Interim History: Edartie reports he is ready to transition to respite. He had no new issues or concerns today. Denies medication SE or questions regarding his plan of care. Medication Compliance: Yes Side effects from medications: No Attending Groups: Yes Review of Systems Acute medical concerns: No Medical Review of Systems: unchanged Mental Status Exam Mental Status Exam Patient Appearance: Appropriate Patient Orientation: Person, Place, Time and Situation Level of Consciousness: Alert Patient Behavior: Talkative and Good Eye Contact Mood Description: Cheerful Affect Description: Constricted Patient Cognition Impaired: No Ability to Follow Directions: Good Speech Pattern: Spontaneous Speech Memory Description: Intact Hallucinations: None Delusions: Not Present Thought Process: Intact and Goal Oriented Thought Content: positive for Intact, positive for Goal Oriented and positive for Suicidal Ideation (denies) Depressive Symptoms: Thoughts of /Suicide (denies) Judgement: Good Diagnostics Vital Signs (24Hr): Vital Signs - 24 hr 12/07/21 20:49 12/08/21 08:00 Temperature 97.8 F 96.2 F L Pulse Rate 98 92 Respiratory Rate 18 Blood Pressure 118/78 131/63 Pulse Oximetry 96 98 BMI result Body Mass Index 35.2 Labs Results: 11/25/21 15:38 12/02/21 13:06 Labs: Laboratory Results - last 48 hr 12/07/21 12/07/21 12/08/21 06:42 20:43 06:29 POC Glucose 178 H 323 H 148 H COVID-19 (LINDA) COVID-19 Clin Com 12/08/21 12:42 POC Glucose COVID-19 (LINDA) Negative COVID-19 Clin Com See Note Medications Medications Current Medications Acetaminophen (Acetaminophen 325 Mg Tablet) 650 mg PO Q4H PRN PRN Reason: fever or pain Al Hydroxide/Mg Hydroxide (Magnesium Hydrox/Alum Hydrox 30 Ml Oral.Susp) 30 ml PO Q6H PRN PRN Reason: Heartburn/Nausea Atorvastatin Calcium (Atorvastatin Calcium 20 Mg Tablet) 20 mg PO DAILY [facility] Last Admin: 12/08/21 08:43 Dose: 20 mg Documented by: Benztropine Mesylate (Benztropine Mesylate 1 Mg Tablet) 1 mg PO BID [facility] Last Admin: 12/08/21 08:44 Dose: 1 mg Documented by: Clonazepam (Clonazepam 1 Mg Tablet) 1 mg PO BID [facility] Last Admin: 12/08/21 08:43 Dose: 1 mg Documented by: Clozapine (Clozapine 100 Mg Tablet) 300 mg PO BEDTIME [facility] Last Admin: 12/07/21 21:13 Dose: 300 mg Documented by: Divalproex Sodium (Divalproex Sodium Er 250 Mg Tab.Er.24h) 750 mg PO BID [facility] Last Admin: 12/08/21 08:41 Dose: 750 mg Documented by: Gabapentin (Gabapentin 100 Mg Capsule) 100 mg PO TID [facility] Last Admin: 12/08/21 15:28 Dose: 100 mg Documented by: Gabapentin (Gabapentin 400 Mg Capsule) 800 mg PO TID [facility] Last Admin: 12/08/21 15:28 Dose: 800 mg Documented by: Glipizide (Glipizide 5 Mg Tablet) 5 mg PO DAILY [facility] Last Admin: 12/08/21 08:43 Dose: 5 mg Documented by: Hydrocortisone (Hydrocortisone 1 % Cream 28.35 Gm Tube) 1 appl TOPICAL BID PRN; Protocol PRN Reason: facial dermatitis Hydroxyzine HCl (Hydroxyzine Hcl 25 Mg Tablet) 25 mg PO DAILY PRN PRN Reason: Anxiety Last Admin: 11/25/21 17:42 Dose: 25 mg Documented by: Lorazepam (Lorazepam 1 Mg Tablet) 1 mg PO BID PRN PRN Reason: Anxiety Last Admin: 12/03/21 12:48 Dose: 1 mg Documented by: Magnesium Hydroxide (Milk Of Magnesia 30 Ml Oral.Susp) 30 ml PO DAILY PRN PRN Reason: Constipation Metformin HCl (Metformin Hcl 1,000 Mg Tablet) 1,000 mg PO BIDWM [facility] Last Admin: 12/08/21 18:31 Dose: 1,000 mg Documented by: Metoprolol Succinate (Metoprolol Succinate Er 25 Mg Tab.Er.24h) 25 mg PO DAILY [facility]; Protocol Last Admin: 12/08/21 08:44 Dose: 25 mg Documented by: Mirtazapine (Mirtazapine 7.5 Mg Tablet) 7.5 mg PO BEDTIME [facility] Last Admin: 12/07/21 21:14 Dose: 7.5 mg Documented by: Multi-Ingred Cream/Lotion/Oil/Oint (Mineral Oil/Petrolatum,White 106 Gm Tube) 1 appl TOPICAL TID PRN; Protocol PRN Reason: dry skin Quetiapine Fumarate (Quetiapine Fumarate 50 Mg Tablet) 50 mg PO BEDTIME PRN PRN Reason: insomnia Last Admin: 12/07/21 21:15 Dose: 50 mg Documented by: Trazodone HCl (Trazodone Hcl 100 Mg Tablet) 200 mg PO BEDTIME [facility] Last Admin: 12/07/21 21:12 Dose: 200 mg Documented by: Allergies Allergies Allergy/AdvReac Type Severity Reaction Status Date / Time haloperidol [From Haldol] Allergy Intermediate Agitated Verified 02/04/21 19:02 lithium Allergy Intermediate Agitated Verified 02/04/21 19:02 oxcarbazepine Allergy Unknown RASH Verified 02/04/21 19:02 [From TRILEPTAL] From Prolixin Allergy Intermediate AKATHESIA Uncoded 02/04/21 19:02 Assessment & Plan Assessment & Plan (1) Schizoaffective disorder: Status: Acute Code(s): F25.9 - Schizoaffective disorder, unspecified (2) Acute anxiety: Status: Acute Code(s): F41.9 - Anxiety disorder, unspecified Plan 11/28/21: Reports Klonopin increase on 11/27 to be helpful Plan: Increase Depakote to 750 mg bid 11/29/21 continue current treatment plan 11/30/21 continue current treatment plan 12/01/21 Continue current plan of care Discharge planning. 12/02/21 Continue current regime. 12/03/21 Remeron 7.5 mg hs to address reports of sleep disruption, anxiety 04/01, depression 12/30. 12/04/21 Continue current plan. 12/05/21 Continue current plan. 12/06/21 Continue current plan. 12/07/21 Continue current plan. 12/08/21 Discharge 12/09/21. I spent minutes with the patient and/or on the patient floor today, greater than?50% of which was spent counseling/coordinating care. Patient educated on: medication risk/benefits and therapeutic strategies Informed Consent: understands Reason for contiued inpatient stay Substantial Risk for: inability to function and rapid decompensation
[2021-12-08 20:00] VITALS: BP 132/77; PULSE 101; TEMP 36.7; O2SAT 96
[2021-12-08] MEDS: traZODone HCL 100 MG TABLET 200 MG PO (20:53)
[2021-12-08] MEDS: cloZAPine 100 MG TABLET 300 MG PO (20:54)
[2021-12-08] MEDS: Mirtazapine 7.5 MG TABLET PO (20:54)
[2021-12-08] MEDS: QUEtiapine Fumarate 50 MG TABLET PO (21:16)
[2021-12-08 21:17] LABS: Glucose, Whole Blood 259 mg/dL (60-115)
[2021-12-09 07:26] LABS: Glucose, Whole Blood 167 mg/dL (60-115)
[2021-12-09 08:30] VITALS: BP 124/64; PULSE 89; TEMP 36.1
[2021-12-09 08:59] LABS: Neut%MD 49.9 %; Neutrophils Absolute Auto 3.6 x10*3/uL (2.0-8.3); WBCANC 7.2 X10*3/uL
[2021-12-09] MEDS: Gabapentin 100 MG CAPSULE PO (09:03)
[2021-12-09] MEDS: clonazePAM 1 MG TABLET PO (09:03)
[2021-12-09] MEDS: Divalproex Sodium ER 250 MG TAB.ER.24H 750 MG PO (09:03)
[2021-12-09] MEDS: glipiZIDE 5 MG TABLET PO (09:03)
[2021-12-09] MEDS: Atorvastatin Calcium 20 MG TABLET PO (09:03)
[2021-12-09] MEDS: Metoprolol Succinate ER 25 MG TAB.ER.24H PO (09:03)
[2021-12-09] MEDS: metFORMIN HCl 1,000 MG TABLET 1000 MG PO (09:03)
[2021-12-09] MEDS: Benztropine Mesylate 1 MG TABLET PO (09:03)
[2021-12-09] MEDS: Gabapentin 400 MG CAPSULE 800 MG PO (09:03)
[2021-12-09 09:27] LABS: Creatinine Clr Calc Pharmacy 104.2; Estimated Glomerular Filt Rate > 60
--- NOTE | 2021-12-15 14:29 | P.DS_ITS ---
DS: Providers Provider Date of Service: 12/09/21 Date of admission: 11/26/21 15:01 Date of discharge: 12/09/21 Primary care physician: Leonora Physician Admitting clinician: Malathi Abraham Attending physician on admission: Malathi Abraham Attending physician on discharge: Malathi Abraham Discharging clinician: Malathi Abraham DS: Diagnosis Discharge Diagnosis (1) Schizoaffective disorder: Status: Acute (2) Acute anxiety: Status: Acute DS: Medications Discharge Medications Home Medications: Home Medications Medication Instructions Recorded Confirmed lancets 28 gauge (FreeStyle 07/22/20 07/22/20 Lancets) Previous Rx's Medication Instructions Recorded acetaminophen 325 mg tablet 650 mg PO Q4H PRN #90 tab 12/08/21 (Tylenol) atorvastatin 20 mg tablet 1 tab PO DAILY 30 Days #30 tab 12/08/21 benztropine 1 mg tablet 1 tab PO BID #60 tab 12/08/21 clonazepam 1 mg tablet 1 mg PO BID #60 tab 12/08/21 clozapine 100 mg tablet 300 mg PO BEDTIME #45 tab 12/08/21 divalproex 250 mg tablet,extended 750 mg PO BID #180 tab 12/08/21 release 24 hr gabapentin 100 mg capsule 1 cap PO TID #90 cap 12/08/21 gabapentin 800 mg tablet 1 tab PO TID #90 tab 12/08/21 glipizide 5 mg tablet 1 tab PO DAILY #30 tab 12/08/21 hydrocortisone 1 % topical cream 1 appl TOPICAL BID PRN #10 g 12/08/21 hydroxyzine HCl 25 mg tablet 1 tab PO DAILY PRN #30 tab 12/08/21 lorazepam 1 mg tablet 1 mg PO BID PRN #30 tab 12/08/21 metformin 1,000 mg tablet 1 tab PO BID #60 tab 12/08/21 metoprolol succinate 25 mg 1 tab PO DAILY #30 cap 12/08/21 tablet,extended release 24 hr mirtazapine 7.5 mg tablet 7.5 mg PO BEDTIME #30 tab 12/08/21 quetiapine 50 mg tablet 50 mg PO BEDTIME PRN #30 tab 12/08/21 trazodone 100 mg tablet 200 mg PO BEDTIME #60 tab 12/08/21 white petrolatum-mineral oil 1 appl TOPICAL TID PRN #10 g 12/08/21 topical cream (Dermacerin) Mental Status Exam Mental Status Exam Patient Appearance: Appropriate Patient Orientation: Person, Place, Time and Situation Level of Consciousness: Alert Patient Behavior: Talkative and Good Eye Contact Mood Description: Cheerful Affect Description: Constricted Patient Cognition Impaired: No Ability to Follow Directions: Good Speech Pattern: Spontaneous Speech Memory Description: Intact Hallucinations: None Delusions: Not Present Thought Process: Intact and Goal Oriented Thought Content: positive for Intact, positive for Goal Oriented and positive for Suicidal Ideation (denies) Depressive Symptoms: Thoughts of /Suicide (denies) Judgement: Good Data Data Completed and Pending Completed studies during hospitalization [Text1]: 12/08/21 12/09/21 12/09/21 21:12 06:59 08:10 Absolute Neuts (auto) Creatinine 1.04 Estim Creat Clear Calc 104.2 Estimated GFR > 60 POC Glucose 259 H 167 H 12/09/21 08:10 Absolute Neuts (auto) 3.6 Creatinine Estim Creat Clear Calc Estimated GFR POC Glucose DS: Summary Hospital Course Hospital Course: Admission to adult psychiatry to address symptoms of schizoaffective disorder and anxiety. Care plan, medication regime and out patient plan of care prior to admission were reviewed. Education was provided regarding management of symptoms, medications and side effects. Nursing and community mental health social worker worked with Ruddy on care planning, education regarding management of symptoms, medications and discharge planning. Klonopin and Depakote were titrated. Seroquel prn was added with good effect. Ruddy found benefit in the milieu groups and was pleased to transition back to home through a stay with [facility], which he is familiar with and feels good support by their team. Time spent discussing smoking cessation with patient: 3 to 10 minutes Status at Discharge Functional status at discharge: independent ambulation Overall status at discharge: patient is back to baseline Time Spent with Patient Time attestation: Total time spent providing and/or coordinating discharge services:35 Time spent: Greater than 30 minutes Discharge Plan Discharge Patient Disposition: Xfer to Respite Facility Discharge Diagnosis: Schizoaffective Disorder Anxiety Referrals: ZHANG GARNER RN [Other] Psychiatric Med Management: Dr. Chris Goins [Other] - 01/02/22 11:00 am (This is a Telehealth appointment) [place], Jess MD [Other] - 12/19/21 10:30 am (in office) Discharge Medications: New clonazepam 1 mg Tablet 1 mg PO BID Qty: 60 0RF divalproex 250 mg Tablet Extended Release 24 Hr 750 mg PO BID Qty: 180 0RF mirtazapine 7.5 mg Tablet 7.5 mg PO BEDTIME Qty: 30 0RF quetiapine 50 mg Tablet 50 mg PO BEDTIME PRN (Reason: insomnia) Qty: 30 0RF hydrocortisone 1 % Cream 1 appl topical BID PRN (Reason: facial dermatitis) Qty: 10 0RF Protocol: Apply to: Apply to: face Dermacerin Cream 1 appl topical TID PRN (Reason: dry skin) Qty: 10 0RF Protocol: Apply to: Apply to: face Continued acetaminophen [Tylenol] 325 mg tablet 650 mg PO Q4H PRN (Reason: fever or pain) Qty: 90 0RF atorvastatin 20 mg tablet 1 tab PO DAILY 30 Days Qty: 30 0RF clozapine 100 mg tablet 300 mg PO BEDTIME Qty: 45 1RF gabapentin 800 mg tablet 1 tab PO TID Qty: 90 0RF trazodone 100 mg tablet 200 mg PO BEDTIME Qty: 60 0RF metformin 1,000 mg tablet 1 tab PO BID Qty: 60 0RF benztropine 1 mg tablet 1 tab PO BID Qty: 60 0RF hydroxyzine HCl 25 mg tablet 1 tab PO DAILY PRN (Reason: Anxiety) Qty: 30 0RF gabapentin 100 mg capsule 1 cap PO TID Qty: 90 0RF metoprolol succinate 25 mg tablet extended release 24 hr 1 tab PO DAILY Qty: 30 0RF lorazepam 1 mg tablet 1 mg PO BID PRN (Reason: Anxiety) Qty: 30 1RF glipizide 5 mg tablet 1 tab PO DAILY Qty: 30 0RF Discontinued divalproex 500 mg Tablet Extended Release 24 Hr 500 mg PO BID 30 Days Qty: 60 0RF clonazepam 0.5 mg Tablet 0.5 mg PO BID 30 Days Qty: 60 0RF No Action (DME) lancets [FreeStyle Lancets] 28 gauge misc topical DAILY 0RF Discharge Orders: Discharge Order (Routine); Ordered 12/09/21 Ordered By: Malathi M Phillips[place] Diet: advance to usual diet Activity on Discharge: As tolerated Stand Alone Forms: Patient Portal Discharge page, Community Support Care Plan Goals: Mood Stabilization Health Concerns: Schizoaffective Disorder Anxiety Hyperlipidemia Diabetes Hypertension Plan of Treatment: Continue treatment with [facility] Take medications as directed Attend appointments as scheduled Practice coping skills Assessment: non-suicidal non-psychotic Discharge Date/Time: 12/09/21 13:42
== END 2021-12-09 13:42 | DRG 885 ==
LOC: HO.ED 11-26 08:58 → HO.PM5 11-26 15:37
PROVIDERS: Nurse Practitioner Family; Physician Assistant; Admitting Provider Psychiatry & Neurology Psychiatry; Emergency Provider Emergency Medicine; Visit Provider Clinical Nurse Specialist Psychiatric/Mental Health, Adult
DX: F25.0 Schizoaffective disorder, bipolar type (principal); R45.851 Suicidal ideations; F41.9 Anxiety disorder, unspecified; G47.00 Insomnia, unspecified; Z20.822 Contact with and (suspected) exposure to COVID-19; Z88.8 Allergy status to other drugs, medicaments and biological substances; Z79.84 Long term (current) use of oral hypoglycemic drugs; Z79.899 Other long term (current) drug therapy
CPT/HCPCS: 36415; 80048; 80061; 80076; 80164; 80307; 81003; 82077; 82565; 82607; 82746; 82947; 83735; 84295; 84443; 85025; 85048; 87635; 93005; 99285

== ENCOUNTER 2022-01-10 17:00 | Emergency (ER) | payer MEDICARE, MEDICAID, SELFPAY ==
[2022-01-10 17:19] VITALS: BP 155/95; PULSE 99; RESP 18; TEMP 36.8; O2SAT 95; BMI 35.6
--- NOTE | 2022-01-10 17:21 | ED_ITS ---
HPI - Psych General Chief Complaint: Psychiatric Symptoms Stated Complaint: restless Time Seen by Provider: 01/10/22 17:15 Source: patient and EMS Mode of arrival: EMS Limitations: no limitations History of Present Illness HPI Narrative: 46 yo male with a history of schizoaffective disorder, anxiety here with com plaints of feeling restless i want to jump out of my skin . NO SI/HI. No physical complaints. No substance use. Related Data Home Medications Medication Instructions Recorded Confirmed lancets 28 gauge (FreeStyle 07/22/20 07/22/20 Lancets) glipizide 10 mg tablet 1 tab PO DAILY 01/10/22 01/10/22 mirtazapine 15 mg tablet 1 tab PO BEDTIME 01/10/22 01/10/22 Previous Rx's Medication Instructions Recorded acetaminophen 325 mg tablet 650 mg PO Q4H PRN #90 tab 12/08/21 (Tylenol) atorvastatin 20 mg tablet 1 tab PO DAILY 30 Days #30 tab 12/08/21 benztropine 1 mg tablet 1 tab PO BID #60 tab 12/08/21 clonazepam 1 mg tablet 1 mg PO BID #60 tab 12/08/21 clozapine 100 mg tablet 300 mg PO BEDTIME #45 tab 12/08/21 divalproex 250 mg tablet,extended 750 mg PO BID #180 tab 12/08/21 release 24 hr gabapentin 800 mg tablet 1 tab PO TID #90 tab 12/08/21 hydrocortisone 1 % topical cream 1 appl TOPICAL BID PRN #10 g 12/08/21 hydroxyzine HCl 25 mg tablet 1 tab PO DAILY PRN #30 tab 12/08/21 lorazepam 1 mg tablet 1 mg PO BID PRN #30 tab 12/08/21 metformin 1,000 mg tablet 1 tab PO BID #60 tab 12/08/21 metoprolol succinate 25 mg 1 tab PO DAILY #30 cap 12/08/21 tablet,extended release 24 hr quetiapine 50 mg tablet 50 mg PO BEDTIME PRN #30 tab 12/08/21 trazodone 100 mg tablet 200 mg PO BEDTIME #60 tab 12/08/21 white petrolatum-mineral oil 1 appl TOPICAL TID PRN #10 g 12/08/21 topical cream (Dermacerin) Allergies Allergy/AdvReac Type Severity Reaction Status Date / Time haloperidol [From Haldol] Allergy Intermediate Agitated Verified 02/04/21 19:02 lithium Allergy Intermediate Agitated Verified 02/04/21 19:02 oxcarbazepine Allergy Unknown RASH Verified 02/04/21 19:02 [From TRILEPTAL] fluphenazine [From Prolixin] Allergy akathisia Verified 12/09/21 11:48 Review of Systems Review of Systems: Yes all other systems are reviewed and are negative Constitutional: Constitutional: Reports no additional constitutional complaints, Denies body ache(s), Denies chills, Denies fever(s), Denies headache(s) and Denies weakness Eyes: Eyes: Reports no additional eye complaints and Denies change in vision ENT: Reports system reviewed and no additional complaints, except as documented, Denies dizziness, Denies headache(s), Denies nasal congestion, Denies nasal discharge and Denies neck pain Cardiovascular: Cardiovascular: Reports no additional cardiovascular complaints, Denies chest pain, Denies leg edema and Denies dyspnea Respiratory: Respiratory: Reports no additional respiratory complaints, Denies cough and Denies dyspnea Gastrointestinal: Gastrointestinal: Reports no additional gastrointestinal complaints, Denies abdominal pain, Denies diarrhea, Denies nausea and Denies vomiting Genitourinary: Genitourinary: Denies urinary incontinence Musculoskeletal: Musculoskeletal: Reports no additional musculoskeletal compl aints, Denies back pain, Denies arthralgias, Denies joint swelling, Denies neck pain, Denies numbness and Denies tingling Integumentary/Breasts: Skin/Breast: Reports system reviewed and no additional complaints, except as docu and Denies rash Neurologic: Reports system reviewed and no additional complaints, except as documented, Denies Abnormal speech present, Denies dizziness, Denies headache(s), Denies numbness, Denies tingling and Denies weakness Psychiatric: Psychiatric: Reports anxiety, Reports irritability, Denies homicidal ideation and Denies suicidal ideation [facility] Past Medical History Attestation statement: The following information was validated with the patient. Source: old records reviewed and nursing notes reviewed Medical History Diabetes 1.5, managed as type 2 Social History Social History Household Members: Other Household Members Other:: roommate Housing: Apartment Do you presently have visiting nurse or other home services: No Alcohol intake: never Patient Tobacco Use Status: Never used Tobacco Advance Directives: No Advance Directives Information Provided: No service: No Sexual orientation: Did not discuss Physical Exam Vital Signs: Vital Signs: Last Vital Signs Temp 98.3 F 01/10/22 17:19 Pulse 99 01/10/22 17:19 Resp 18 01/10/22 17:19 BP 155/95 H 01/10/22 17:19 Pulse Ox 95 01/10/22 17:19 BMI result Body Mass Index 35.6 Const: General: cooperative, healthy appearing, comfortable and no acute distress Orientation/consciousness: patient oriented x3 Limitations: no limitations HEENT: Head: Yes normal to inspection Ears: hearing grossly normal bilaterally General nose exam: Normal external nose present Face and sinus: Yes normal facial exam Mouth: Normal oral and palatal mucosa present Throat: Yes posterior oropharynx normal Eyes: General: appearance normal, both eyes and all related structures Pupils: Equal, round and reactive pupils present Neck: Neck: Yes normal visual inspection Chest: Chest palpation & inspection: normal inspection of the chest Resp: Effort & Inspection: normal respiratory effort Auscultation: clear to auscultation bilaterally Cardio: Rate: regular rate Rhythm: regular rhythm Peripheral pulses: Peripheral pulses 2+ throughout GI: Inspection: Yes normal to inspection Palpation (GI): Soft to palpation and nontender Auscultation: normal bowel sounds Back/Spine/Pelvis: Thoracic/Lumbar Spine: thoracic and lumbar spine normal to inspection Skin: General skin exam: no rashes or lesions noted Neuro: General: patient oriented x3, no focal motor deficits and normal sensation to monofilament Cranial nerves: Yes CN's II-XII intact bilaterally and Yes Equal, round and reactive pupils present Cognition (Neuro): normal cognition Speech: No Abnormal speech present Gait exam (Neuro): Normal gait present Motor exam (neuro): 5/5 motor strength present throughout Extrem: General: Yes normal to inspection Course Course Course Narrative: 46 yo male with history of schizoaffective disorder, anxiety here with restlessness. Seeking to speak to crisis. Recent admit to for same. No concern for acute ingestion or trauma. Will check labs, VILA, COVID screen. Obtai n care team consult Reevaluation(s) Reevaluation #1: Seen by Susan from care team. plan for follow-up in AM. Patient to remain in ED overnight. Requesting BHN consult Time: 19:30 Reevaluation #2: Sign out to night team pending BHN consult, care team follow-up in the AM Time: 21:00 MDM - Psych Medical Records Attestation: I reviewed the patient's medical records. Lab Data Attestation: I reviewed the patient's lab results. Result diagrams: 01/10/22 17:25 01/10/22 17:26 Labs: Lab Results 01/10/22 01/10/22 01/10/22 Range/Units 17:25 17:26 17:26 WBC 9.7 (4.8-10.8) X10*3/uL RBC 4.95 (4.60-5.80) X10*6/uL Hgb 13.5 L (14.0-18.0) g/dl Hct 41.2 L (42.0-52.0) % MCV 83.2 (80.0-98.0) fL MCH 27.3 (27.0-33.0) pg MCHC 32.8 (31.0-36.0) g/dl RDW 13.1 (11.0-16.0) % Plt Count 167 D (160-400) X10*3/uL MPV Not Reportable Immature Gran % (Auto) 0.6 H (0.0-0.4) % Neut % (Auto) 67.7 (45-73) % Lymph % (Auto) 19.4 L (20-40) % [place] % (Auto) 8.9 (2-11) % Eos % (Auto) 2.7 (0-4) % Baso % (Auto) 0.7 (0-2) % Lymph # (Auto) 1.9 (1.2-4.9) X10*3/uL [place] # (Auto) 0.9 (0.1-1.2) X10*3/uL Eos # (Auto) 0.3 (0.0-0.4) X10*3/uL Baso # (Auto) 0.1 (0.0-0.2) X10*3/uL Abs Immat Gran (auto) 0.06 H (0.00-0.03) X10*3/uL Absolute Neuts (auto) 6.5 (2.0-8.3) x10*3/uL Absolute Nucleated RBC 0.000 (0.0-0.012) X10*3/uL Nucleated RBC % (auto) 0.0 (0.0-0.2) /100WBC Smear Tech's Comments VERIFIED Sodium 136 (135-145) mmol/L Potassium 4.1 (3.3-5.1) mmol/L Chloride 99 (96-108) mmol/L Carbon Dioxide 25 (22-29) mmol/L Anion Gap 16 (12-20) BUN 13 (9-16) mg/dL Creatinine 1.11 (0.5-1.4) mg/dL Estim Creat Clear Calc 98.2 Estimated GFR > 60 Random Glucose 216 H (60-115) mg/dL Calcium 9.5 (8.4-10.2) mg/dL Total Bilirubin 0.4 (0.0-1.0) mg/dL Direct Bilirubin 0.2 (0.0-0.5) mg/dL AST 32 D (5-37) U/L ALT 67 H (0-40) U/L Alkaline Phosphatase 114 (39-117) U/L Total Protein 6.5 (6.5-8.0) g/dL Albumin 4.2 (3.5-5.0) g/dL Salicylates < 5.0 L (15-30) mg/dL Urine Opiates Screen (Not Detect) Urine Fentanyl Screen (Not Detect) Acetaminophen < 1 (<30) mcg/mL Ur Barbiturates Screen (Not Detect) Valproic Acid 67.7 (50.0-100.0) mcg/mL Ur Phencyclidine Scrn (Not Detect) Ur Amphetamines Screen (Not Detect) U Benzodiazepines Scrn (Not Detect) Urine Cocaine Screen (Not Detect) U Marijuana (THC) Screen (Not Detect) Ethyl Alcohol mg/dL COVID-19 (LINDA) Negative (Negative) COVID-19 Clin Com See Note 01/10/22 01/10/22 Range/Units 17:26 18:55 WBC (4.8-10.8) X10*3/uL RBC (4.60-5.80) X10*6/uL Hgb (14.0-18.0) g/dl Hct (42.0-52.0) % MCV (80.0-98.0) fL MCH (27.0-33.0) pg MCHC (31.0-36.0) g/dl RDW (11.0-16.0) % Plt Count (160-400) X10*3/uL MPV Immature Gran % (Auto) (0.0-0.4) % Neut % (Auto) (45-73) % Lymph % (Auto) (20-40) % [place] % (Auto) (2-11) % Eos % (Auto) (0-4) % Baso % (Auto) (0-2) % Lymph # (Auto) (1.2-4.9) X10*3/uL [place] # (Auto) (0.1-1.2) X10*3/uL Eos # (Auto) (0.0-0.4) X10*3/uL Baso # (Auto) (0.0-0.2) X10*3/uL Abs Immat Gran (auto) (0.00-0.03) X10*3/uL Absolute Neuts (auto) (2.0-8.3) x10*3/uL Absolute Nucleated RBC (0.0-0.012) X10*3/uL Nucleated RBC % (auto) (0.0-0.2) /100WBC Smear Tech's Comments Sodium (135-145) mmol/L Potassium (3.3-5.1) mmol/L Chloride (96-108) mmol/L Carbon Dioxide (22-29) mmol/L Anion Gap (12-20) BUN (9-16) mg/dL Creatinine (0.5-1.4) mg/dL Estim Creat Clear Calc Estimated GFR Random Glucose (60-115) mg/dL Calcium (8.4-10.2) mg/dL Total Bilirubin (0.0-1.0) mg/dL Direct Bilirubin (0.0-0.5) mg/dL AST (5-37) U/L ALT (0-40) U/L Alkaline Phosphatase (39-117) U/L Total Protein (6.5-8.0) g/dL Albumin (3.5-5.0) g/dL Salicylates (15-30) mg/dL Urine Opiates Screen Not Detected (Not Detect) Urine Fentanyl Screen POSITIVE H (Not Detect) Acetaminophen (<30) mcg/mL Ur Barbiturates Screen Not Detected (Not Detect) Valproic Acid (50.0-100.0) mcg/mL Ur Phencyclidine Scrn Not Detected (Not Detect) Ur Amphetamines Screen Not Detected (Not Detect) U Benzodiazepines Scrn Not Detected (Not Detect) Urine Cocaine Screen Not Detected (Not Detect) U Marijuana (THC) Screen Not Detected (Not Detect) Ethyl Alcohol < 10 mg/dL COVID-19 (LINDA) (Negative) COVID-19 Clin Com Discharge Plan Discharge Clinical Impression: Schizoaffective disorder, Acute anxiety Patient Disposition: Still a Patient Prescriptions: No Action (DME) lancets [FreeStyle Lancets] 28 gauge misc topical DAILY 0RF clonazepam 1 mg Tablet 1 mg PO BID Qty: 60 0RF divalproex 250 mg Tablet Extended Release 24 Hr 750 mg PO BID Qty: 180 0RF quetiapine 50 mg Tablet 50 mg PO BEDTIME PRN (Reason: insomnia) Qty: 30 0RF hydrocortisone 1 % Cream 1 appl topical BID PRN (Reason: facial dermatitis) Qty: 10 0RF Protocol: Apply to: Apply to: face Dermacerin Cream 1 appl topical TID PRN (Reason: dry skin) Qty: 10 0RF Protocol: Apply to: Apply to: face acetaminophen [Tylenol] 325 mg tablet 650 mg PO Q4H PRN (Reason: fever or pain) Qty: 90 0RF atorvastatin 20 mg tablet 1 tab PO DAILY 30 Days Qty: 30 0RF clozapine 100 mg tablet 300 mg PO BEDTIME Qty: 45 1RF gabapentin 800 mg tablet 1 tab PO TID Qty: 90 0RF trazodone 100 mg tablet 200 mg PO BEDTIME Qty: 60 0RF metformin 1,000 mg tablet 1 tab PO BID Qty: 60 0RF benztropine 1 mg tablet 1 tab PO BID Qty: 60 0RF hydroxyzine HCl 25 mg tablet 1 tab PO DAILY PRN (Reason: Anxiety) Qty: 30 0RF metoprolol succinate 25 mg tablet extended release 24 hr 1 tab PO DAILY Qty: 30 0RF lorazepam 1 mg tablet 1 mg PO BID PRN (Reason: Anxiety) Qty: 30 1RF glipizide 10 mg tablet 1 tab PO DAILY 0RF mirtazapine 15 mg tablet 1 tab PO BEDTIME 0RF
[2022-01-10 17:38] LABS: Basophils Absolute Auto 0.1 X10*3/uL (0.0-0.2); Basophils Percent Auto 0.7 % (0-2); Imm Gran Abs Auto 0.06 X10*3/uL (0.00-0.03); Imm Gran Pct Auto 0.6 % (0.0-0.4); PLT CLUMP 1; SCAN SMEAR FLAG 1
[2022-01-10 17:40] LABS: Eosinophils Absolute Auto 0.3 X10*3/uL (0.0-0.4); Eosinophils Percent Auto 2.7 % (0-4); Hematocrit 41.2 % (42.0-52.0); Hemoglobin 13.5 g/dl (14.0-18.0); Lymphocytes Absolute Auto 1.9 X10*3/uL (1.2-4.9); Lymphocytes Percent Auto 19.4 % (20-40); Mean Corpuscular HGB Conc 32.8 g/dl (31.0-36.0); Mean Corpuscular Hemoglobin 27.3 pg (27.0-33.0); Mean Corpuscular Volume 83.2 fL (80.0-98.0); Monocytes Absolute Auto 0.9 X10*3/uL (0.1-1.2); Monocytes Percent Auto 8.9 % (2-11); Neutrophils Absolute Auto 6.5 x10*3/uL (2.0-8.3); Neutrophils Percent Auto 67.7 % (45-73); Red Blood Count 4.95 X10*6/uL (4.60-5.80); Red Cell Distribution Width 13.1 % (11.0-16.0)
[2022-01-10 17:53] LABS: COVID-19 Test Negative (Negative); Ethanol < 10 mg/dL
--- NOTE | 2022-01-10 17:55 | PHA.MEDREC ---
Pharmacy Consult ? Medication Reconciliation Pharmacy has completed the medication reconciliation.
[2022-01-10 17:56] LABS: MANUAL DIFF FLAG SCAN; Platelet Count 167 X10*3/uL (160-400); White Blood Count 9.7 X10*3/uL (4.8-10.8)
[2022-01-10 17:56] LABS: Acetaminophen LAB < 1 mcg/mL (<30); Alanine Aminotransferase 67 U/L (0-40); Albumin Level 4.2 g/dL (3.5-5.0); Alkaline Phosphatase 114 U/L (39-117); Anion Gap 16 (12-20); Aspartate Amino Transferase 32 U/L (5-37); Bilirubin Direct 0.2 mg/dL (0.0-0.5); Bilirubin Total 0.4 mg/dL (0.0-1.0); Blood Urea Nitrogen 13 mg/dL (9-16); Calcium 9.5 mg/dL (8.4-10.2); Carbon Dioxide 25 mmol/L (22-29); Chloride 99 mmol/L (96-108); Creatinine Clr Calc Pharmacy 98.2; Estimated Glomerular Filt Rate > 60; Glucose Random 216 mg/dL (60-115); Potassium 4.1 mmol/L (3.3-5.1); Salicylate < 5.0 mg/dL (15-30); Sodium 136 mmol/L (135-145); Total Protein 6.5 g/dL (6.5-8.0)
[2022-01-10 17:57] LABS: SLIDE REVIEW VERIFIED
--- NOTE | 2022-01-10 18:08 | PC.NURSE ---
addendum to triage: patient primarily reports feels apprehensive at home sometimes at unidentified things, states current with meds, [id number] hallucinations, states hasnt had drugs or etoh for 18 years.
[2022-01-10 19:37] LABS: Amphetamine Screen Urine Not Detected (Not Detect); Barbiturates, Urine Not Detected (Not Detect); Benzodiazepines Screen Urine Not Detected (Not Detect); Cannabinoid Screen Urine Not Detected (Not Detect); Cocaine Screen Urine Not Detected (Not Detect); Fentanyl, urine POSITIVE (Not Detect); Opiate Screen Urine Not Detected (Not Detect); Phencyclidine Screen Urine Not Detected (Not Detect)
[2022-01-10 19:46] LABS: Valproate 67.7 mcg/mL (50.0-100.0)
[2022-01-10] MEDS: Mirtazapine 15 MG TABLET PO (21:27)
[2022-01-10] MEDS: Benztropine Mesylate 1 MG TABLET PO (21:27)
[2022-01-10] MEDS: traZODone HCL 100 MG TABLET 200 MG PO (21:27)
[2022-01-10] MEDS: cloZAPine 100 MG TABLET 300 MG PO (21:27)
[2022-01-10] MEDS: clonazePAM 1 MG TABLET PO (21:27)
[2022-01-10] MEDS: Divalproex Sodium ER 250 MG TAB.ER.24H 750 MG PO (21:27)
[2022-01-10] MEDS: Gabapentin 400 MG CAPSULE 800 MG PO (21:27)
[2022-01-10] MEDS: LORazepam 1 MG TABLET PO (23:10)
[2022-01-11 00:41] VITALS: BP 124/76; PULSE 96; RESP 16; TEMP 36.7; O2SAT 95
--- NOTE | 2022-01-11 05:40 | PC.NURSE ---
Patient slept through the night, no distress observed/reported, up out of room x 2 for bathroom use and back, medication compliant, awaiting bhn evaluation in the morning, behavior non concerning at this time, VSS, will continue to monitor.
--- NOTE | 2022-01-11 07:10 | PC.NURSE ---
patient appears to remain asleep at present respirations are even and unlabored patient appears in no distress
[2022-01-11] MEDS: Gabapentin 400 MG CAPSULE 800 MG PO (08:46)
[2022-01-11] MEDS: Metoprolol Succinate ER 25 MG TAB.ER.24H PO (08:46)
[2022-01-11] MEDS: clonazePAM 1 MG TABLET PO (08:46)
[2022-01-11] MEDS: metFORMIN HCl 1,000 MG TABLET 1000 MG PO (08:46)
[2022-01-11] MEDS: Divalproex Sodium ER 250 MG TAB.ER.24H 750 MG PO (08:46)
[2022-01-11] MEDS: Benztropine Mesylate 1 MG TABLET PO (08:46)
[2022-01-11] MEDS: glipiZIDE 10 MG TABLET PO (08:46)
[2022-01-11] MEDS: Atorvastatin Calcium 20 MG TABLET PO (08:46)
--- NOTE | 2022-01-11 09:16 | MHC.CARE ---
Pt presented to the ED last evening expressing feelings of restlessness and anxiousness. Pt today is reporting prior to coming to the ED difficult sleeping though reports being able to sleep last evening. Pt is not endorsing SI/AH/VH/HI. Pt reports wanting to be around other people and expressed interest in respite. Plan for Pt to go to the living room to have peer support. 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
== END 2022-01-11 09:49 | disposition home or self-care (01) ==
PROVIDERS: Nurse Practitioner Family; Emergency Provider Emergency Medicine Emergency Medical Services
DX: F41.1 Generalized anxiety disorder (principal); F43.0 Acute stress reaction; R45.1 Restlessness and agitation; F25.9 Schizoaffective disorder, unspecified; E11.9 Type 2 diabetes mellitus without complications; Z79.4 Long term (current) use of insulin; Z20.822 Contact with and (suspected) exposure to COVID-19; Z79.899 Other long term (current) drug therapy
CPT/HCPCS: 36415; 80048; 80076; 80143; 80164; 80179; 80307; 82077; 85025; 87635; 99284

== ENCOUNTER 2022-02-18 11:08 | Outpatient (REF) | payer MEDICARE, MEDICAID, SELFPAY ==
[2022-02-18 13:38] LABS: MANUAL DIFF FLAG NO
[2022-02-18 13:40] LABS: Basophils Absolute Auto 0.1 X10*3/uL (0.0-0.2); Basophils Percent Auto 0.9 % (0-2); Eosinophils Absolute Auto 0.3 X10*3/uL (0.0-0.4); Eosinophils Percent Auto 4.6 % (0-4); Hematocrit 42.8 % (42.0-52.0); Hemoglobin 13.6 g/dl (14.0-18.0); Imm Gran Abs Auto 0.06 X10*3/uL (0.00-0.03); Imm Gran Pct Auto 0.9 % (0.0-0.4); Lymphocytes Absolute Auto 1.8 X10*3/uL (1.2-4.9); Lymphocytes Percent Auto 26.8 % (20-40); Mean Corpuscular HGB Conc 31.8 g/dl (31.0-36.0); Mean Corpuscular Hemoglobin 27.3 pg (27.0-33.0); Mean Corpuscular Volume 85.9 fL (80.0-98.0); Mean Platelet Volume 9.8 fL (9.4-12.4); Monocytes Absolute Auto 0.7 X10*3/uL (0.1-1.2); Monocytes Percent Auto 9.7 % (2-11); Neutrophils Absolute Auto 3.9 x10*3/uL (2.0-8.3); Neutrophils Percent Auto 57.1 % (45-73); Platelet Count 222 X10*3/uL (160-400); Red Blood Count 4.98 X10*6/uL (4.60-5.80); Red Cell Distribution Width 13.6 % (11.0-16.0); White Blood Count 6.8 X10*3/uL (4.8-10.8)
== END 2022-02-18 11:09 | disposition home or self-care (01) ==
LOC: HO.10HDL 11:08
PROVIDERS: Visit Provider Clinical Nurse Specialist Psychiatric/Mental Health, Adult
DX: Z79.899 Other long term (current) drug therapy (principal)
CPT/HCPCS: 36415; 85025

== ENCOUNTER 2022-03-27 09:45 | Outpatient (REF) | payer MEDICARE, MEDICAID, SELFPAY ==
[2022-03-27 10:29] LABS: MANUAL DIFF FLAG NO
[2022-03-27 10:38] LABS: Estimated Average Glucose 197 mg/dL; Hemoglobin A1c % 8.5 %
[2022-03-27 11:26] LABS: Basophils Absolute Auto 0.1 X10*3/uL (0.0-0.2); Basophils Percent Auto 1.3 % (0-2); Eosinophils Absolute Auto 0.5 X10*3/uL (0.0-0.4); Eosinophils Percent Auto 8.7 % (0-4); Hemoglobin 14.6 g/dl (14.0-18.0); Imm Gran Abs Auto 0.03 X10*3/uL (0.00-0.03); Imm Gran Pct Auto 0.5 % (0.0-0.4); Lymphocytes Absolute Auto 2.1 X10*3/uL (1.2-4.9); Lymphocytes Percent Auto 33.1 % (20-40); Mean Corpuscular HGB Conc 32.4 g/dl (31.0-36.0); Mean Corpuscular Hemoglobin 27.4 pg (27.0-33.0); Mean Corpuscular Volume 84.4 fL (80.0-98.0); Mean Platelet Volume 9.6 fL (9.4-12.4); Monocytes Absolute Auto 0.6 X10*3/uL (0.1-1.2); Monocytes Percent Auto 9.8 % (2-11); Neut%MD 46.6 %; Neutrophils Absolute Auto 2.9 x10*3/uL (2.0-8.3); Neutrophils Percent Auto 46.6 % (45-73); Platelet Count 231 X10*3/uL (160-400); Red Blood Count 5.33 X10*6/uL (4.60-5.80); Red Cell Distribution Width 13.1 % (11.0-16.0); WBCANC 6.2 X10*3/uL; White Blood Count 6.2 X10*3/uL (4.8-10.8)
== END 2022-03-27 09:46 | disposition home or self-care (01) ==
LOC: HO.LAB 09:45
PROVIDERS: Absent Provider Clinical Nurse Specialist Psychiatric/Mental Health, Adult; PCP Family Medicine; Visit Provider Family Medicine
DX: E11.9 Type 2 diabetes mellitus without complications (principal); Z79.899 Other long term (current) drug therapy
CPT/HCPCS: 36415; 83036; 85025

== ENCOUNTER 2022-04-21 12:06 | Outpatient (REF) | payer MEDICARE, MEDICAID, SELFPAY ==
[2022-04-21 13:46] LABS: MANUAL DIFF FLAG NO
[2022-04-21 13:49] LABS: Basophils Absolute Auto 0.1 X10*3/uL (0.0-0.2); Basophils Percent Auto 0.7 % (0-2); Eosinophils Absolute Auto 0.2 X10*3/uL (0.0-0.4); Eosinophils Percent Auto 3.1 % (0-4); Hematocrit 44.5 % (42.0-52.0); Hemoglobin 14.7 g/dl (14.0-18.0); Imm Gran Abs Auto 0.04 X10*3/uL (0.00-0.03); Imm Gran Pct Auto 0.6 % (0.0-0.4); Lymphocytes Absolute Auto 1.7 X10*3/uL (1.2-4.9); Lymphocytes Percent Auto 23.8 % (20-40); Mean Corpuscular Hemoglobin 27.5 pg (27.0-33.0); Mean Corpuscular Volume 83.3 fL (80.0-98.0); Mean Platelet Volume 9.7 fL (9.4-12.4); Monocytes Absolute Auto 0.6 X10*3/uL (0.1-1.2); Monocytes Percent Auto 7.7 % (2-11); Neutrophils Absolute Auto 4.6 x10*3/uL (2.0-8.3); Neutrophils Percent Auto 64.1 % (45-73); Platelet Count 237 X10*3/uL (160-400); Red Blood Count 5.34 X10*6/uL (4.60-5.80); Red Cell Distribution Width 12.6 % (11.0-16.0); White Blood Count 7.1 X10*3/uL (4.8-10.8)
== END 2022-04-21 12:07 | disposition home or self-care (01) ==
LOC: HO.10HDLR 12:06
PROVIDERS: Visit Provider Clinical Nurse Specialist Psychiatric/Mental Health, Adult
DX: Z79.899 Other long term (current) drug therapy (principal)
CPT/HCPCS: 36415; 85025

== ENCOUNTER 2022-05-19 11:15 | Outpatient (REF) | payer MEDICARE, MEDICAID, SELFPAY ==
[2022-05-19 13:42] LABS: MANUAL DIFF FLAG NO
[2022-05-19 13:51] LABS: Basophils Absolute Auto 0.1 X10*3/uL (0.0-0.2); Basophils Percent Auto 0.8 % (0-2); Eosinophils Absolute Auto 0.1 X10*3/uL (0.0-0.4); Hematocrit 45.1 % (42.0-52.0); Hemoglobin 14.6 g/dl (14.0-18.0); Imm Gran Abs Auto 0.02 X10*3/uL (0.00-0.03); Imm Gran Pct Auto 0.3 % (0.0-0.4); Lymphocytes Absolute Auto 1.6 X10*3/uL (1.2-4.9); Mean Corpuscular HGB Conc 32.4 g/dl (31.0-36.0); Mean Corpuscular Hemoglobin 27.3 pg (27.0-33.0); Mean Corpuscular Volume 84.5 fL (80.0-98.0); Mean Platelet Volume 9.9 fL (9.4-12.4); Monocytes Absolute Auto 0.5 X10*3/uL (0.1-1.2); Monocytes Percent Auto 7.9 % (2-11); Neutrophils Absolute Auto 4.2 x10*3/uL (2.0-8.3); Platelet Count 230 X10*3/uL (160-400); Red Blood Count 5.34 X10*6/uL (4.60-5.80); Red Cell Distribution Width 12.8 % (11.0-16.0); White Blood Count 6.5 X10*3/uL (4.8-10.8)
== END 2022-05-19 11:16 | disposition home or self-care (01) ==
LOC: HO.10HDL 11:15
PROVIDERS: Visit Provider Clinical Nurse Specialist Psychiatric/Mental Health, Adult
DX: Z79.899 Other long term (current) drug therapy (principal)
CPT/HCPCS: 36415; 85025

== ENCOUNTER 2022-06-03 09:46 | Outpatient (REF) | payer MEDICARE, MEDICAID, SELFPAY ==
[2022-06-03 09:58] LABS: MANUAL DIFF FLAG NO
[2022-06-03 10:26] LABS: Basophils Absolute Auto 0.1 X10*3/uL (0.0-0.2); Basophils Percent Auto 0.8 % (0-2); Eosinophils Absolute Auto 0.4 X10*3/uL (0.0-0.4); Eosinophils Percent Auto 4.4 % (0-4); Hematocrit 42.9 % (42.0-52.0); Hemoglobin 14.2 g/dl (14.0-18.0); Imm Gran Abs Auto 0.06 X10*3/uL (0.00-0.03); Imm Gran Pct Auto 0.8 % (0.0-0.4); Lymphocytes Absolute Auto 2.2 X10*3/uL (1.2-4.9); Lymphocytes Percent Auto 27.9 % (20-40); Mean Corpuscular HGB Conc 33.1 g/dl (31.0-36.0); Mean Corpuscular Hemoglobin 28.2 pg (27.0-33.0); Mean Corpuscular Volume 85.1 fL (80.0-98.0); Mean Platelet Volume 9.5 fL (9.4-12.4); Monocytes Absolute Auto 0.7 X10*3/uL (0.1-1.2); Monocytes Percent Auto 8.9 % (2-11); Neut%MD 57.2 %; Neutrophils Absolute Auto 4.5 x10*3/uL (2.0-8.3); Neutrophils Percent Auto 57.2 % (45-73); Platelet Count 206 X10*3/uL (160-400); Red Blood Count 5.04 X10*6/uL (4.60-5.80); Red Cell Distribution Width 12.9 % (11.0-16.0); WBCANC 7.9 X10*3/uL; White Blood Count 7.9 X10*3/uL (4.8-10.8)
== END 2022-06-03 09:47 | disposition home or self-care (01) ==
LOC: HO.LABR 09:46
PROVIDERS: PCP Family Medicine; Visit Provider Clinical Nurse Specialist Psychiatric/Mental Health, Adult
DX: Z79.899 Other long term (current) drug therapy (principal)
CPT/HCPCS: 36415; 85025

== ENCOUNTER 2022-07-08 09:34 | Outpatient (REF) | payer MEDICARE, MEDICAID, SELFPAY ==
[2022-07-08 09:59] LABS: MANUAL DIFF FLAG NO
[2022-07-08 10:33] LABS: Basophils Absolute Auto 0.1 X10*3/uL (0.0-0.2); Basophils Percent Auto 0.6 % (0-2); Eosinophils Absolute Auto 0.3 X10*3/uL (0.0-0.4); Eosinophils Percent Auto 3.7 % (0-4); Hematocrit 44.7 % (42.0-52.0); Hemoglobin 14.6 g/dl (14.0-18.0); Imm Gran Abs Auto 0.05 X10*3/uL (0.00-0.03); Imm Gran Pct Auto 0.6 % (0.0-0.4); Lymphocytes Absolute Auto 2.1 X10*3/uL (1.2-4.9); Lymphocytes Percent Auto 23.4 % (20-40); Mean Corpuscular HGB Conc 32.7 g/dl (31.0-36.0); Mean Corpuscular Hemoglobin 27.5 pg (27.0-33.0); Mean Corpuscular Volume 84.2 fL (80.0-98.0); Mean Platelet Volume 9.7 fL (9.4-12.4); Monocytes Absolute Auto 0.8 X10*3/uL (0.1-1.2); Monocytes Percent Auto 9.1 % (2-11); Neut%MD 62.6 %; Neutrophils Absolute Auto 5.6 x10*3/uL (2.0-8.3); Neutrophils Percent Auto 62.6 % (45-73); Platelet Count 210 X10*3/uL (160-400); Red Blood Count 5.31 X10*6/uL (4.60-5.80)
[2022-07-08 10:42] LABS: Estimated Average Glucose 212 mg/dL
[2022-07-08 11:47] LABS: Alanine Aminotransferase 20 U/L (0-40); Albumin Level 4.4 g/dL (3.5-5.0); Alkaline Phosphatase 110 U/L (39-117); Anion Gap 17 (12-20); Aspartate Amino Transferase 12 U/L (5-37); Bilirubin Total 0.4 mg/dL (0.0-1.0); Blood Urea Nitrogen 15 mg/dL (9-16); Calcium 10.1 mg/dL (8.4-10.2); Carbon Dioxide 28 mmol/L (22-29); Chloride 101 mmol/L (96-108); Cholesterol 179 mg/dL; Estimated Glomerular Filt Rate > 60; Glucose Random 280 mg/dL (60-115); HDL Cholesterol 28 mg/dL; LDL Cholesterol Calculated 103 mg/dl; Potassium 4.6 mmol/L (3.3-5.1); Sodium 141 mmol/L (135-145); TSH reflex Free T4 2.43 uIU/mL (0.32-4.0); Total Protein 6.7 g/dL (6.5-8.0); Triglycerides 241 mg/dL; Vitamin D 25-OH Total 21.4 ng/mL (>30)
[2022-07-08 11:53] LABS: Vitamin B12 635 pg/mL (200-900)
== END 2022-07-08 09:35 | disposition home or self-care (01) ==
LOC: HO.LAB 09:34
PROVIDERS: Absent Provider Clinical Nurse Specialist Psychiatric/Mental Health, Adult; PCP Family Medicine; Visit Provider Family Medicine
DX: E11.9 Type 2 diabetes mellitus without complications (principal); E78.5 Hyperlipidemia, unspecified; F20.9 Schizophrenia, unspecified; Z79.899 Other long term (current) drug therapy
CPT/HCPCS: 36415; 80053; 80061; 82306; 82607; 83036; 84443; 85025

== ENCOUNTER 2022-07-17 11:22 | Outpatient (REF) | payer MEDICARE, MEDICAID, SELFPAY ==
[2022-07-17 11:52] LABS: Creatinine Urine 63.89 mg/dL; Microalbumin Urine < 5.0 mg/L
== END 2022-07-17 11:23 | disposition home or self-care (01) ==
LOC: HO.LNP 11:22
PROVIDERS: Visit Provider Family Medicine
DX: E11.9 Type 2 diabetes mellitus without complications (principal); E78.5 Hyperlipidemia, unspecified; F20.9 Schizophrenia, unspecified
CPT/HCPCS: 82043

== ENCOUNTER 2022-08-05 11:04 | Outpatient (REF) | payer MEDICARE, MEDICAID, SELFPAY ==
[2022-08-05 11:26] LABS: MANUAL DIFF FLAG NO
[2022-08-05 12:25] LABS: Basophils Absolute Auto 0.1 X10*3/uL (0.0-0.2); Basophils Percent Auto 1.2 % (0-2); Eosinophils Absolute Auto 0.3 X10*3/uL (0.0-0.4); Eosinophils Percent Auto 5.1 % (0-4); Hematocrit 43.6 % (42.0-52.0); Hemoglobin 14.1 g/dl (14.0-18.0); Imm Gran Abs Auto 0.04 X10*3/uL (0.00-0.03); Imm Gran Pct Auto 0.7 % (0.0-0.4); Lymphocytes Absolute Auto 2.1 X10*3/uL (1.2-4.9); Lymphocytes Percent Auto 34.4 % (20-40); Mean Corpuscular HGB Conc 32.3 g/dl (31.0-36.0); Mean Corpuscular Hemoglobin 27.9 pg (27.0-33.0); Mean Corpuscular Volume 86.2 fL (80.0-98.0); Mean Platelet Volume 9.8 fL (9.4-12.4); Monocytes Absolute Auto 0.5 X10*3/uL (0.1-1.2); Monocytes Percent Auto 8.4 % (2-11); Neut%MD 50.2 %; Neutrophils Absolute Auto 3.1 x10*3/uL (2.0-8.3); Neutrophils Percent Auto 50.2 % (45-73); Platelet Count 240 X10*3/uL (160-400); Red Blood Count 5.06 X10*6/uL (4.60-5.80); Red Cell Distribution Width 12.7 % (11.0-16.0); WBCANC 6.1 X10*3/uL; White Blood Count 6.1 X10*3/uL (4.8-10.8)
== END 2022-08-05 11:05 | disposition home or self-care (01) ==
LOC: HO.LABR 11:04
PROVIDERS: PCP Family Medicine; Visit Provider Clinical Nurse Specialist Psychiatric/Mental Health, Adult
DX: Z79.899 Other long term (current) drug therapy (principal)
CPT/HCPCS: 36415; 85025

== ENCOUNTER 2022-09-01 10:56 | Outpatient (REF) | payer MEDICARE, MEDICAID, SELFPAY ==
[2022-09-01 11:11] LABS: MANUAL DIFF FLAG NO
[2022-09-01 11:48] LABS: Basophils Absolute Auto 0.1 X10*3/uL (0.0-0.2); Basophils Percent Auto 0.9 % (0-2); Eosinophils Absolute Auto 0.3 X10*3/uL (0.0-0.4); Eosinophils Percent Auto 3.8 % (0-4); Hemoglobin 15.7 g/dl (14.0-18.0); Imm Gran Abs Auto 0.04 X10*3/uL (0.00-0.03); Imm Gran Pct Auto 0.5 % (0.0-0.4); Lymphocytes Absolute Auto 2.4 X10*3/uL (1.2-4.9); Lymphocytes Percent Auto 32.8 % (20-40); Mean Corpuscular HGB Conc 32.7 g/dl (31.0-36.0); Mean Corpuscular Hemoglobin 28.1 pg (27.0-33.0); Mean Platelet Volume 9.5 fL (9.4-12.4); Monocytes Absolute Auto 0.8 X10*3/uL (0.1-1.2); Monocytes Percent Auto 10.7 % (2-11); Neutrophils Absolute Auto 3.8 x10*3/uL (2.0-8.3); Neutrophils Percent Auto 51.3 % (45-73); Platelet Count 254 X10*3/uL (160-400); Red Blood Count 5.58 X10*6/uL (4.60-5.80); Red Cell Distribution Width 13.1 % (11.0-16.0); White Blood Count 7.4 X10*3/uL (4.8-10.8)
== END 2022-09-01 10:57 | disposition home or self-care (01) ==
LOC: HO.LABR 10:56
PROVIDERS: PCP Family Medicine; Visit Provider Clinical Nurse Specialist Psychiatric/Mental Health, Adult
DX: Z79.899 Other long term (current) drug therapy (principal)
CPT/HCPCS: 36415; 85025

== ENCOUNTER 2022-09-29 11:17 | Outpatient (REF) | payer MEDICARE, MEDICAID, SELFPAY ==
[2022-09-29 11:51] LABS: MANUAL DIFF FLAG NO
[2022-09-29 12:12] LABS: Basophils Absolute Auto 0.1 X10*3/uL (0.0-0.2); Eosinophils Absolute Auto 0.5 X10*3/uL (0.0-0.4); Hematocrit 47.9 % (42.0-52.0); Hemoglobin 15.5 g/dl (14.0-18.0); Imm Gran Abs Auto 0.07 X10*3/uL (0.00-0.03); Imm Gran Pct Auto 0.9 % (0.0-0.4); Lymphocytes Absolute Auto 2.1 X10*3/uL (1.2-4.9); Lymphocytes Percent Auto 27.3 % (20-40); Mean Corpuscular HGB Conc 32.4 g/dl (31.0-36.0); Mean Corpuscular Hemoglobin 27.1 pg (27.0-33.0); Mean Corpuscular Volume 83.7 fL (80.0-98.0); Mean Platelet Volume 9.1 fL (9.4-12.4); Monocytes Absolute Auto 0.6 X10*3/uL (0.1-1.2); Monocytes Percent Auto 7.5 % (2-11); Neutrophils Absolute Auto 4.5 x10*3/uL (2.0-8.3); Neutrophils Percent Auto 57.3 % (45-73); Platelet Count 244 X10*3/uL (160-400); Red Blood Count 5.72 X10*6/uL (4.60-5.80); Red Cell Distribution Width 12.8 % (11.0-16.0); White Blood Count 7.8 X10*3/uL (4.8-10.8)
== END 2022-09-29 11:18 | disposition home or self-care (01) ==
LOC: HO.LAB 11:17
PROVIDERS: PCP Family Medicine; Visit Provider Clinical Nurse Specialist Psychiatric/Mental Health, Adult
DX: Z79.899 Other long term (current) drug therapy (principal)
CPT/HCPCS: 36415; 85025

== ENCOUNTER 2022-10-29 09:35 | Outpatient (REF) | payer MEDICARE, MEDICAID, SELFPAY ==
[2022-10-29 09:59] LABS: MANUAL DIFF FLAG NO
[2022-10-29 10:28] LABS: Basophils Absolute Auto 0.1 X10*3/uL (0.0-0.2); Basophils Percent Auto 1.1 % (0-2); Eosinophils Absolute Auto 0.5 X10*3/uL (0.0-0.4); Eosinophils Percent Auto 5.9 % (0-4); Hematocrit 46.8 % (42.0-52.0); Hemoglobin 15.1 g/dl (14.0-18.0); Imm Gran Abs Auto 0.07 X10*3/uL (0.00-0.03); Imm Gran Pct Auto 0.8 % (0.0-0.4); Lymphocytes Absolute Auto 2.7 X10*3/uL (1.2-4.9); Lymphocytes Percent Auto 31.4 % (20-40); Mean Corpuscular HGB Conc 32.3 g/dl (31.0-36.0); Mean Corpuscular Volume 83.7 fL (80.0-98.0); Mean Platelet Volume 9.2 fL (9.4-12.4); Monocytes Absolute Auto 0.8 X10*3/uL (0.1-1.2); Monocytes Percent Auto 9.4 % (2-11); Neutrophils Absolute Auto 4.4 x10*3/uL (2.0-8.3); Neutrophils Percent Auto 51.4 % (45-73); Platelet Count 215 X10*3/uL (160-400); Red Blood Count 5.59 X10*6/uL (4.60-5.80); Red Cell Distribution Width 13.2 % (11.0-16.0); White Blood Count 8.5 X10*3/uL (4.8-10.8)
[2022-11-02 07:08] LABS: Clozapine (Clozaril) 414 mcg/L; Norclozapine 147 mcg/L (25-400)
== END 2022-10-29 09:36 | disposition home or self-care (01) ==
LOC: HO.LABR 09:35
PROVIDERS: PCP Family Medicine; Visit Provider Clinical Nurse Specialist Psychiatric/Mental Health, Adult
DX: Z79.899 Other long term (current) drug therapy (principal)
CPT/HCPCS: 36415; 80159; 85025

== ENCOUNTER 2022-12-02 10:33 | Outpatient (REF) | payer MEDICARE, MEDICAID, SELFPAY ==
[2022-12-02 11:03] LABS: MANUAL DIFF FLAG NO
[2022-12-02 11:18] LABS: Basophils Absolute Auto 0.1 X10*3/uL (0.0-0.2); Basophils Percent Auto 0.7 % (0-2); Eosinophils Absolute Auto 0.4 X10*3/uL (0.0-0.4); Eosinophils Percent Auto 6.3 % (0-4); Hematocrit 49.2 % (42.0-52.0); Hemoglobin 15.9 g/dl (14.0-18.0); Imm Gran Abs Auto 0.07 X10*3/uL (0.00-0.03); Lymphocytes Absolute Auto 2.4 X10*3/uL (1.2-4.9); Lymphocytes Percent Auto 35.1 % (20-40); Mean Corpuscular HGB Conc 32.3 g/dl (31.0-36.0); Mean Corpuscular Hemoglobin 27.1 pg (27.0-33.0); Mean Platelet Volume 9.1 fL (9.4-12.4); Monocytes Absolute Auto 0.6 X10*3/uL (0.1-1.2); Monocytes Percent Auto 8.5 % (2-11); Neutrophils Absolute Auto 3.3 x10*3/uL (2.0-8.3); Neutrophils Percent Auto 48.4 % (45-73); Platelet Count 228 X10*3/uL (160-400); Red Blood Count 5.86 X10*6/uL (4.60-5.80); Red Cell Distribution Width 13.9 % (11.0-16.0); White Blood Count 6.9 X10*3/uL (4.8-10.8)
[2022-12-02 11:48] LABS: Estimated Average Glucose 186 mg/dL; Hemoglobin A1c % 8.1 %
[2022-12-02 11:59] LABS: Alanine Aminotransferase 33 U/L (0-40); Albumin Level 4.4 g/dL (3.5-5.0); Alkaline Phosphatase 104 U/L (39-117); Aspartate Amino Transferase 25 U/L (5-37); Bilirubin Direct 0.1 mg/dL (0.0-0.5); Bilirubin Total 0.5 mg/dL (0.0-1.0); Cholesterol 182 mg/dL; HDL Cholesterol 26 mg/dL; LDL Cholesterol Calculated 97 mg/dl; Total Protein 6.9 g/dL (6.5-8.0); Triglycerides 297 mg/dL
== END 2022-12-02 10:34 | disposition home or self-care (01) ==
LOC: HO.LAB 10:33
PROVIDERS: Absent Provider Clinical Nurse Specialist Psychiatric/Mental Health, Adult; PCP Family Medicine; Visit Provider Family Medicine
DX: E13.65 Other specified diabetes mellitus with hyperglycemia (principal); Z79.899 Other long term (current) drug therapy
CPT/HCPCS: 36415; 80061; 80076; 83036; 85025

== ENCOUNTER 2022-12-29 11:46 | Outpatient (REF) | payer MEDICARE, MEDICAID, SELFPAY ==
[2022-12-29 11:58] LABS: MANUAL DIFF FLAG NO
[2022-12-29 12:09] LABS: Basophils Absolute Auto 0.1 X10*3/uL (0.0-0.2); Basophils Percent Auto 1.1 % (0-2); Eosinophils Absolute Auto 0.6 X10*3/uL (0.0-0.4); Eosinophils Percent Auto 6.7 % (0-4); Hematocrit 46.5 % (42.0-52.0); Hemoglobin 15.1 g/dl (14.0-18.0); Imm Gran Pct Auto 1.2 % (0.0-0.4); Lymphocytes Absolute Auto 2.4 X10*3/uL (1.2-4.9); Lymphocytes Percent Auto 28.5 % (20-40); Mean Corpuscular HGB Conc 32.5 g/dl (31.0-36.0); Mean Corpuscular Hemoglobin 27.6 pg (27.0-33.0); Mean Platelet Volume 9.2 fL (9.4-12.4); Monocytes Absolute Auto 0.7 X10*3/uL (0.1-1.2); Monocytes Percent Auto 8.6 % (2-11); Neut%MD 53.9 %; Neutrophils Absolute Auto 4.5 x10*3/uL (2.0-8.3); Neutrophils Percent Auto 53.9 % (45-73); Platelet Count 204 X10*3/uL (160-400); Red Blood Count 5.47 X10*6/uL (4.60-5.80); Red Cell Distribution Width 14.2 % (11.0-16.0); WBCANC 8.3 X10*3/uL; White Blood Count 8.3 X10*3/uL (4.8-10.8)
== END 2022-12-29 11:47 | disposition home or self-care (01) ==
LOC: HO.LABR 11:46
PROVIDERS: PCP Family Medicine; Visit Provider Clinical Nurse Specialist Psychiatric/Mental Health, Adult
DX: Z79.899 Other long term (current) drug therapy (principal)
CPT/HCPCS: 36415; 85025

== ENCOUNTER 2023-01-26 13:11 | Outpatient (REF) | payer MEDICARE, MEDICAID, SELFPAY ==
[2023-01-26 13:27] LABS: MANUAL DIFF FLAG NO
[2023-01-26 14:28] LABS: Basophils Absolute Auto 0.1 X10*3/uL (0.0-0.2); Basophils Percent Auto 0.9 % (0-2); Eosinophils Absolute Auto 0.3 X10*3/uL (0.0-0.4); Hematocrit 48.3 % (42.0-52.0); Hemoglobin 15.5 g/dl (14.0-18.0); Imm Gran Abs Auto 0.02 X10*3/uL (0.00-0.03); Imm Gran Pct Auto 0.4 % (0.0-0.4); Lymphocytes Absolute Auto 1.8 X10*3/uL (1.2-4.9); Lymphocytes Percent Auto 33.2 % (20-40); Mean Corpuscular HGB Conc 32.1 g/dl (31.0-36.0); Mean Corpuscular Hemoglobin 27.2 pg (27.0-33.0); Mean Corpuscular Volume 84.9 fL (80.0-98.0); Mean Platelet Volume 9.9 fL (9.4-12.4); Monocytes Absolute Auto 0.5 X10*3/uL (0.1-1.2); Monocytes Percent Auto 9.8 % (2-11); Neutrophils Absolute Auto 2.7 x10*3/uL (2.0-8.3); Neutrophils Percent Auto 50.7 % (45-73); Platelet Count 180 X10*3/uL (160-400); Red Blood Count 5.69 X10*6/uL (4.60-5.80); Red Cell Distribution Width 14.3 % (11.0-16.0); White Blood Count 5.4 X10*3/uL (4.8-10.8)
== END 2023-01-26 13:12 | disposition home or self-care (01) ==
LOC: HO.LAB 13:11
PROVIDERS: Visit Provider Clinical Nurse Specialist Psychiatric/Mental Health, Adult
DX: Z79.899 Other long term (current) drug therapy (principal)
CPT/HCPCS: 36415; 85025

== ENCOUNTER 2023-02-26 10:21 | Outpatient (REF) | payer MEDICARE, MEDICAID, SELFPAY | END 2023-02-26 10:22 | disposition home or self-care (01) | LOC: HO.LAB 10:21 | PROVIDERS: Visit Provider Clinical Nurse Specialist Psychiatric/Mental Health, Adult | DX: Z79.899 Other long term (current) drug therapy (principal) | CPT/HCPCS: 36415; 85025 ==

== ENCOUNTER 2023-03-18 11:59 | Outpatient (REF) | payer MEDICARE, MEDICAID, SELFPAY ==
[2023-03-18 14:17] LABS: Estimated Average Glucose 157 mg/dL; Hemoglobin A1c % 7.1 %
== END 2023-03-18 12:00 | disposition home or self-care (01) ==
LOC: HO.HHCL 11:59
PROVIDERS: Visit Provider Family Medicine
DX: E13.65 Other specified diabetes mellitus with hyperglycemia (principal)
CPT/HCPCS: 36415; 83036

== ENCOUNTER 2023-04-02 10:20 | Outpatient (REF) | payer MEDICARE, MEDICAID, SELFPAY ==
[2023-04-02 10:31] LABS: MANUAL DIFF FLAG NO
[2023-04-02 10:56] LABS: Basophils Absolute Auto 0.1 X10*3/uL (0.0-0.2); Basophils Percent Auto 0.9 % (0-2); Eosinophils Absolute Auto 0.5 X10*3/uL (0.0-0.4); Eosinophils Percent Auto 6.8 % (0-4); Imm Gran Abs Auto 0.08 X10*3/uL (0.00-0.03); Imm Gran Pct Auto 1.1 % (0.0-0.4); Lymphocytes Absolute Auto 3.2 X10*3/uL (1.2-4.9); Lymphocytes Percent Auto 41.5 % (20-40); Mean Corpuscular HGB Conc 31.9 g/dl (31.0-36.0); Mean Corpuscular Hemoglobin 27.6 pg (27.0-33.0); Mean Corpuscular Volume 86.4 fL (80.0-98.0); Mean Platelet Volume 9.2 fL (9.4-12.4); Monocytes Absolute Auto 0.7 X10*3/uL (0.1-1.2); Monocytes Percent Auto 9.2 % (2-11); Neutrophils Absolute Auto 3.1 x10*3/uL (2.0-8.3); Neutrophils Percent Auto 40.5 % (45-73); Platelet Count 254 X10*3/uL (160-400); Red Blood Count 5.44 X10*6/uL (4.60-5.80); Red Cell Distribution Width 13.7 % (11.0-16.0); White Blood Count 7.6 X10*3/uL (4.8-10.8)
== END 2023-04-02 10:21 | disposition home or self-care (01) ==
LOC: HO.LABR 10:20
PROVIDERS: Visit Provider Clinical Nurse Specialist Psychiatric/Mental Health, Adult
DX: Z79.899 Other long term (current) drug therapy (principal)
CPT/HCPCS: 36415; 85025

== ENCOUNTER 2023-04-28 12:10 | Outpatient (REF) | payer MEDICARE, MEDICAID, SELFPAY ==
[2023-04-28 12:36] LABS: MANUAL DIFF FLAG NO
[2023-04-28 12:44] LABS: Basophils Absolute Auto 0.1 X10*3/uL (0.0-0.2); Basophils Percent Auto 0.6 % (0-2); Eosinophils Absolute Auto 0.7 X10*3/uL (0.0-0.4); Eosinophils Percent Auto 5.3 % (0-4); Hematocrit 45.8 % (42.0-52.0); Hemoglobin 14.6 g/dl (14.0-18.0); Imm Gran Abs Auto 0.09 X10*3/uL (0.00-0.03); Imm Gran Pct Auto 0.7 % (0.0-0.4); Lymphocytes Absolute Auto 2.3 X10*3/uL (1.2-4.9); Lymphocytes Percent Auto 18.8 % (20-40); Mean Corpuscular HGB Conc 31.9 g/dl (31.0-36.0); Mean Corpuscular Hemoglobin 27.7 pg (27.0-33.0); Mean Corpuscular Volume 86.7 fL (80.0-98.0); Mean Platelet Volume 9.1 fL (9.4-12.4); Monocytes Absolute Auto 0.9 X10*3/uL (0.1-1.2); Monocytes Percent Auto 7.6 % (2-11); Neutrophils Absolute Auto 8.2 x10*3/uL (2.0-8.3); Platelet Count 217 X10*3/uL (160-400); Red Blood Count 5.28 X10*6/uL (4.60-5.80); Red Cell Distribution Width 13.4 % (11.0-16.0); White Blood Count 12.3 X10*3/uL (4.8-10.8)
== END 2023-04-28 12:11 | disposition home or self-care (01) ==
LOC: HO.LAB 12:10
PROVIDERS: Visit Provider Clinical Nurse Specialist Psychiatric/Mental Health, Adult
DX: Z79.899 Other long term (current) drug therapy (principal)
CPT/HCPCS: 36415; 85025

== ENCOUNTER 2023-04-30 10:41 | Outpatient (REF) | payer MEDICARE, MEDICAID, SELFPAY ==
[2023-04-30 12:09] LABS: Valproate 47.6 mcg/mL (50.0-100.0)
[2023-05-05 05:28] LABS: Clozapine (Clozaril) 591 mcg/L; Norclozapine 248 mcg/L (25-400)
== END 2023-04-30 10:42 | disposition home or self-care (01) ==
LOC: HO.LABR 10:41
PROVIDERS: Visit Provider Clinical Nurse Specialist Psychiatric/Mental Health, Adult
DX: Z79.899 Other long term (current) drug therapy (principal)
CPT/HCPCS: 36415; 80159; 80164

== ENCOUNTER 2023-05-03 11:37 | Outpatient (REF) | payer MEDICARE, MEDICAID, SELFPAY ==
--- NOTE | ~2023-05-03 | XR_ITS ---
EXAMINATION: XR ANKLE, LEFT. XR FOOT, LEFT. CLINICAL INFORMATION: Left foot and ankle pain COMPARISON: None. TECHNIQUE: 3 views of the left ankle. 3 views of the left foot. FINDINGS: The ankle mortise is preserved. No fracture or malalignment. No significant degenerative findings of the left ankle or left foot. XR/XR ankle LT min 3V IMPRESSION: Normal left ankle and left foot.
--- NOTE | ~2023-05-03 | XR_ITS ---
EXAMINATION: XR ANKLE, LEFT. XR FOOT, LEFT. CLINICAL INFORMATION: Left foot and ankle pain COMPARISON: None. TECHNIQUE: 3 views of the left ankle. 3 views of the left foot. FINDINGS: The ankle mortise is preserved. No fracture or malalignment. No significant degenerative findings of the left ankle or left foot. XR/XR foot LT min 3V IMPRESSION: Normal left ankle and left foot.
== END 2023-05-03 11:38 | disposition home or self-care (01) ==
LOC: HO.LAB 11:37
PROVIDERS: Absent Provider Registered Nurse; Visit Provider Family Medicine
DX: M79.672 Pain in left foot (principal); E11.65 Type 2 diabetes mellitus with hyperglycemia
CPT/HCPCS: 73610; 73630

== ENCOUNTER 2023-05-21 10:14 | Outpatient (REF) | payer MEDICARE, MEDICAID, SELFPAY ==
[2023-05-21 10:36] LABS: MANUAL DIFF FLAG NO
[2023-05-21 11:02] LABS: Basophils Absolute Auto 0.1 X10*3/uL (0.0-0.2); Basophils Percent Auto 1.3 % (0-2); Eosinophils Absolute Auto 0.5 X10*3/uL (0.0-0.4); Hemoglobin 15.1 g/dl (14.0-18.0); Imm Gran Abs Auto 0.04 X10*3/uL (0.00-0.03); Imm Gran Pct Auto 0.6 % (0.0-0.4); Lymphocytes Absolute Auto 2.6 X10*3/uL (1.2-4.9); Lymphocytes Percent Auto 37.8 % (20-40); Mean Corpuscular HGB Conc 32.8 g/dl (31.0-36.0); Mean Corpuscular Hemoglobin 28.2 pg (27.0-33.0); Mean Platelet Volume 9.3 fL (9.4-12.4); Monocytes Absolute Auto 0.6 X10*3/uL (0.1-1.2); Monocytes Percent Auto 9.3 % (2-11); Platelet Count 224 X10*3/uL (160-400); Red Blood Count 5.35 X10*6/uL (4.60-5.80); Red Cell Distribution Width 13.7 % (11.0-16.0); White Blood Count 6.8 X10*3/uL (4.8-10.8)
[2023-05-21 11:07] LABS: Valproate 79.9 mcg/mL (50.0-100.0)
== END 2023-05-21 10:15 | disposition home or self-care (01) ==
LOC: HO.LABR 10:14
PROVIDERS: Visit Provider Clinical Nurse Specialist Psychiatric/Mental Health, Adult
DX: Z79.899 Other long term (current) drug therapy (principal)
CPT/HCPCS: 36415; 80164; 85025

== ENCOUNTER 2023-06-15 09:54 | Outpatient (REF) | payer MEDICARE, MEDICAID, SELFPAY ==
[2023-06-15 10:15] LABS: MANUAL DIFF FLAG NO
[2023-06-15 10:42] LABS: Basophils Absolute Auto 0.1 X10*3/uL (0.0-0.2); Basophils Percent Auto 0.8 % (0-2); Eosinophils Absolute Auto 0.4 X10*3/uL (0.0-0.4); Eosinophils Percent Auto 4.4 % (0-4); Hematocrit 48.5 % (42.0-52.0); Hemoglobin 15.4 g/dl (14.0-18.0); Imm Gran Abs Auto 0.06 X10*3/uL (0.00-0.03); Imm Gran Pct Auto 0.7 % (0.0-0.4); Lymphocytes Absolute Auto 2.8 X10*3/uL (1.2-4.9); Lymphocytes Percent Auto 33.1 % (20-40); Mean Corpuscular HGB Conc 31.8 g/dl (31.0-36.0); Mean Corpuscular Hemoglobin 27.6 pg (27.0-33.0); Mean Corpuscular Volume 87.1 fL (80.0-98.0); Mean Platelet Volume 9.5 fL (9.4-12.4); Monocytes Absolute Auto 0.9 X10*3/uL (0.1-1.2); Monocytes Percent Auto 10.9 % (2-11); Neutrophils Absolute Auto 4.3 x10*3/uL (2.0-8.3); Neutrophils Percent Auto 50.1 % (45-73); Platelet Count 222 X10*3/uL (160-400); Red Blood Count 5.57 X10*6/uL (4.60-5.80); Red Cell Distribution Width 13.6 % (11.0-16.0); White Blood Count 8.6 X10*3/uL (4.8-10.8)
[2023-06-15 11:09] LABS: Valproate 68.3 mcg/mL (50.0-100.0)
== END 2023-06-15 09:55 | disposition home or self-care (01) ==
LOC: HO.LABR 09:54
PROVIDERS: PCP Family Medicine; Visit Provider Clinical Nurse Specialist Psychiatric/Mental Health, Adult
DX: Z79.899 Other long term (current) drug therapy (principal)
CPT/HCPCS: 36415; 80164; 85025

== ENCOUNTER 2023-07-14 10:56 | Outpatient (REF) | payer MEDICARE, MEDICAID, SELFPAY ==
[2023-07-14 11:25] LABS: MANUAL DIFF FLAG NO
[2023-07-14 12:10] LABS: Basophils Percent Auto 0.6 % (0-2); Eosinophils Absolute Auto 0.3 X10*3/uL (0.0-0.4); Eosinophils Percent Auto 4.1 % (0-4); Hematocrit 46.4 % (42.0-52.0); Hemoglobin 14.9 g/dl (14.0-18.0); Imm Gran Abs Auto 0.02 X10*3/uL (0.00-0.03); Imm Gran Pct Auto 0.3 % (0.0-0.4); Lymphocytes Absolute Auto 2.4 X10*3/uL (1.2-4.9); Lymphocytes Percent Auto 35.8 % (20-40); Mean Corpuscular HGB Conc 32.1 g/dl (31.0-36.0); Mean Corpuscular Hemoglobin 27.5 pg (27.0-33.0); Mean Corpuscular Volume 85.6 fL (80.0-98.0); Mean Platelet Volume 9.4 fL (9.4-12.4); Monocytes Absolute Auto 0.6 X10*3/uL (0.1-1.2); Monocytes Percent Auto 9.6 % (2-11); Neutrophils Absolute Auto 3.3 x10*3/uL (2.0-8.3); Neutrophils Percent Auto 49.6 % (45-73); Platelet Count 221 X10*3/uL (160-400); Red Blood Count 5.42 X10*6/uL (4.60-5.80); Red Cell Distribution Width 13.7 % (11.0-16.0); White Blood Count 6.6 X10*3/uL (4.8-10.8)
[2023-07-14 12:32] LABS: Valproate 67.3 mcg/mL (50.0-100.0)
== END 2023-07-14 10:57 | disposition home or self-care (01) ==
LOC: HO.LABR 10:56
PROVIDERS: Visit Provider Clinical Nurse Specialist Psychiatric/Mental Health, Adult
DX: Z79.899 Other long term (current) drug therapy (principal)
CPT/HCPCS: 36415; 80164; 85025

== ENCOUNTER 2023-08-10 11:11 | Outpatient (REF) | payer MEDICARE, MEDICAID, SELFPAY ==
[2023-08-10 13:41] LABS: Valproate 81.5 mcg/mL (50.0-100.0)
[2023-08-15 06:38] LABS: Clozapine (Clozaril) 634 mcg/L; Norclozapine 290 mcg/L (25-400)
== END 2023-08-10 11:12 | disposition home or self-care (01) ==
LOC: HO.LABR 11:11
PROVIDERS: Visit Provider Clinical Nurse Specialist Psychiatric/Mental Health, Adult
DX: Z79.899 Other long term (current) drug therapy (principal)
CPT/HCPCS: 36415; 80159; 80164

== ENCOUNTER 2023-09-09 12:35 | Outpatient (REF) | payer MEDICARE, MEDICAID, SELFPAY ==
[2023-09-09 12:53] LABS: MANUAL DIFF FLAG NO
[2023-09-09 13:41] LABS: Basophils Percent Auto 0.8 % (0-2); Eosinophils Absolute Auto 0.2 X10*3/uL (0.0-0.4); Eosinophils Percent Auto 3.4 % (0-4); Hematocrit 47.3 % (42.0-52.0); Hemoglobin 15.4 g/dl (14.0-18.0); Imm Gran Abs Auto 0.03 X10*3/uL (0.00-0.03); Imm Gran Pct Auto 0.6 % (0.0-0.4); Lymphocytes Absolute Auto 1.7 X10*3/uL (1.2-4.9); Lymphocytes Percent Auto 32.5 % (20-40); Mean Corpuscular HGB Conc 32.6 g/dl (31.0-36.0); Mean Corpuscular Hemoglobin 27.9 pg (27.0-33.0); Mean Corpuscular Volume 85.8 fL (80.0-98.0); Mean Platelet Volume 9.7 fL (9.4-12.4); Monocytes Absolute Auto 0.5 X10*3/uL (0.1-1.2); Monocytes Percent Auto 10.2 % (2-11); Neutrophils Absolute Auto 2.8 x10*3/uL (2.0-8.3); Neutrophils Percent Auto 52.5 % (45-73); Platelet Count 218 X10*3/uL (160-400); Red Blood Count 5.51 X10*6/uL (4.60-5.80); Red Cell Distribution Width 13.6 % (11.0-16.0); White Blood Count 5.3 X10*3/uL (4.8-10.8)
[2023-09-09 14:17] LABS: Valproate 59.1 mcg/mL (50.0-100.0)
== END 2023-09-09 12:36 | disposition home or self-care (01) ==
LOC: HO.LABR 12:35
PROVIDERS: PCP Family Medicine; Visit Provider Clinical Nurse Specialist Psychiatric/Mental Health, Adult
DX: Z79.899 Other long term (current) drug therapy (principal)
CPT/HCPCS: 36415; 80164; 85025

== ENCOUNTER 2023-09-22 10:57 | Inpatient (IN) | payer MEDICARE, MEDICAID, SELFPAY ==
[2023-09-22] VITALS (8 sets, daily range): BP systolic 115–151; BP diastolic 81–102; PULSE 106–128; RESP 16–20; TEMP 35.8–36.9; O2SAT 97–100; BMI 33.4
[2023-09-22 12:01] LABS: Appearance Urine Clear; Color Urine Yellow; Glucose Urine UA >=1000 mg/dL (Negative); Leukocyte Esterase Urine Small (1+) (Negative); Nitrite Urine Negative (Negative); Specific Gravity - Urine 1.015 (1.005-1.025); UMIC TRIGGER UACC YES; Urine Blood Negative (Negative); Urine Ketones Negative (Negative); Urine Protein Negative (Neg-Trace)
[2023-09-22 12:14] LABS: Amphetamine Screen Urine Not Detected (Not Detect); Barbiturates, Urine Not Detected (Not Detect); Benzodiazepines Screen Urine Not Detected (Not Detect); Cannabinoid Screen Urine Not Detected (Not Detect); Cocaine Screen Urine Not Detected (Not Detect); Fentanyl, urine Not Detected (Not Detect); Opiate Screen Urine Not Detected (Not Detect); Phencyclidine Screen Urine Not Detected (Not Detect)
[2023-09-22 12:28] LABS: Bacteria Urine None Seen (None Seen); Hyaline Casts Urine 0-2 /LPF (0-2); RBC Urine 0-2 /HPF (0-2); Squamous Epithelial Cell Urine 0-2 /HPF (0-2); UACC Culture Trigger YES; WBC Urine 0-5 /HPF (0-5)
--- NOTE | 2023-09-22 14:07 | ED.ANXIETY ---
HPI - Anxiety General Chief Complaint: Anxiety Stated Complaint: ANXIOUS & RESTLESS X2 DAYS PER EMS Time Seen by Provider: 09/22/23 13:48 Source: patient Mode of arrival: EMS Limitations: no limitations History of Present Illness HPI narrative: Patient comes to the emergency room complaining of anxiety. Patient states that for 2 days he has not taking his medications for unclear reasons. Patient states that if he would have stating his apartment, he would have taken them. Patient denies suicidal or homicidal ideation. Related Data Home Medications Medication Instructions Recorded Confirmed lancets 28 gauge (FreeStyle 07/22/20 07/22/20 Lancets) glipizide 10 mg tablet 1 tab PO DAILY 01/10/22 01/10/22 mirtazapine 15 mg tablet 1 tab PO BEDTIME 01/10/22 01/10/22 Previous Rx's Medication Instructions Recorded acetaminophen 325 mg tablet 650 mg (2 x 325 mg) PO Q4H PRN 12/08/21 (Tylenol) fever or pain #90 tabs atorvastatin 20 mg tablet 1 tab PO DAILY 30 days #30 tabs 12/08/21 benztropine 1 mg tablet 1 tab PO BID #60 tabs 12/08/21 clonazepam 1 mg tablet 1 mg PO BID #60 tabs 12/08/21 clozapine 100 mg tablet 300 mg (3 x 100 mg) PO BEDTIME #45 12/08/21 tabs divalproex 250 mg tablet,extended 750 mg (3 x 250 mg) PO BID #180 12/08/21 release 24 hr tabs gabapentin 800 mg tablet 1 tab PO TID #90 tabs 12/08/21 hydrocortisone 1 % topical cream 1 appl topical BID PRN facial 12/08/21 dermatitis #10 grams hydroxyzine HCl 25 mg tablet 1 tab PO DAILY PRN Anxiety #30 tabs 12/08/21 lorazepam 1 mg tablet 1 mg PO BID PRN Anxiety #30 tabs 12/08/21 metformin 1,000 mg tablet 1 tab PO BID #60 tabs 12/08/21 metoprolol succinate 25 mg 1 tab PO DAILY #30 caps 12/08/21 tablet,extended release 24 hr quetiapine 50 mg tablet 50 mg PO BEDTIME PRN insomnia #30 12/08/21 tabs trazodone 100 mg tablet 200 mg (2 x 100 mg) PO BEDTIME #60 12/08/21 tabs white petrolatum-mineral oil 1 appl topical TID PRN dry skin 12/08/21 topical cream (Dermacerin topical #10 grams cream) Allergies Allergy/AdvReac Type Severity Reaction Status Date / Time haloperidol [From Haldol] Allergy Intermediate Agitated Verified 02/04/21 19:02 lithium Allergy Intermediate Agitated Verified 02/04/21 19:02 oxcarbazepine Allergy Unknown RASH Verified 02/04/21 19:02 [From TRILEPTAL] fluphenazine [From Prolixin] Allergy akathisia Verified 12/09/21 11:48 Review of Systems Review of Systems: Constitutional : No Weight loss, No Fever, No Chills, No Night Sweats, No Fatigue, No Malaise ENT/Mouth : No Hearing loss, No Ear Pain, No Nasal Congestion, No Sinus Pain, No Hoarseness, No sore throat, No Rhinorrhea, No Swallowing Difficulty Eyes: No Eye Pain, No Swelling, No Redness, No Foreign Body, No Discharge, No Vision Changes Cardiovascular : No Chest Pain, No SOB, No Dyspnea on Exertion, No Orthopnea, No Edema, No Palpitations Respiratory : No Cough, No Sputum, No Wheezing, No Smoke Exposure, No Dyspnea Gastrointestinal : No Nausea, No Vomiting, No Diarrhea, No Constipation, No abdominal Pain, No Hematochezia, No Melena Genitourinary : no irregular bleeding, No Dysuria, No Urinary Frequency, No Hematuria, No Urinary Incontinence, No Urgency, No Flank Pain, No Urinary Flow Changes, No Hesitancy Musculoskeletal : No joint pain, No Myalgias, No Joint Swelling Skin : No Skin Lesions, No rash Neuro : No Weakness, No Numbness, No Paresthesias, No Loss of Consciousness, No Dizziness, No Headache Psych : Complaining of anxiety No Depression, No SI/HI/AH/VH, No Social Issues, Heme/Lymph: No Bruising, No Bleeding,No Lymphadenopathy Endocrine : No Polyuria, No Polydipsia, No Temperature Intolerance [facility] Past Medical History Medical History Acute anxiety Schizoaffective disorder Diabetes 1.5, managed as type 2 Social History Social History Household Members: Other Household Members Other:: roommate Housing: Apartment Do you presently have visiting nurse or other home services: No Alcohol intake: never Patient Tobacco Use Status: Never used Tobacco Advance Directives: No Advance Directives Information Provided: No service: No Sexual orientation: Did not discuss Physical Exam Vital Signs: Vital Signs: Last Vital Signs Temp 96.5 F L 09/22/23 13:46 Pulse 106 H 09/22/23 13:46 Resp 18 09/22/23 13:46 BP 115/82 09/22/23 13:46 Pulse Ox 97 09/22/23 13:46 O2 Del Method Room Air 09/22/23 13:46 BMI result Body Mass Index 33.4 Const: Other: Appearance: Alert. Oriented X3. Very anxious Eyes: Pupils equal, round and reactive to light. ENT: Pharynx normal. Neck: Normal inspection. Neck supple. No lymph nodes noted. No crepitus CVS: Normal heart rate and rhythm. Pulses normal. Normal S1 and S2 Respiratory: No respiratory distress. Breath sounds normal. No Wheezing. No rales Abdomen: Soft and nontender. No rigidity. No distention. Skin: Skin warm and dry. Normal skin color. Normal skin turgor. Extremities: No lower extremity edema. No Lacerations. No Rash Neuro: Oriented X 3. No motor deficit. No sensory deficit. Moving all extremities. No slurred speech. CN 2 through 12 grossly intact Psych: calm, cooperative, very anxious Course Course Course Narrative: -all of patient's labs pending -care team consult pending -patient is not SI or HI, section 12 not indicated -patient has had hospitalizations here for anxiety Medical Decision Making Differential Diagnosis Differential Diagnoses: The differential diagnosis associated with the presentation includes (Anxiety, depression, panic attack) Admission/Observation Consideration of admission/observation: Escalation of care including admission/observation considered (Patient will be under physician observation until the care team determined patient's disposition) Lab Data Labs: Lab Results 09/22/23 Range/Units 11:54 Urine Color Yellow Urine Appearance Clear Urine pH 7.0 (5.0-9.0) Ur Specific [place] 1.015 (1.005-1.025) Urine Protein Negative (Neg-Trace) mg/dL Urine Glucose (UA) >=1000 H (Negative) mg/dL Urine Ketones Negative (Negative) mg/dL Urine Blood Negative (Negative) Urine Nitrite Negative (Negative) Ur Leukocyte Esterase Small (1+) H (Negative) Urine RBC 0-2 (0-2) /HPF Urine WBC 0-5 (0-5) /HPF Ur Squamous Epith Cells 0-2 (0-2) /HPF Urine Bacteria None Seen (None Seen) Hyaline Casts 0-2 (0-2) /LPF Urine Opiates Screen Not Detected (Not Detect) Urine Fentanyl Screen Not Detected (Not Detect) Ur Barbiturates Screen Not Detected (Not Detect) Ur Phencyclidine Scrn Not Detected (Not Detect) Ur Amphetamines Screen Not Detected (Not Detect) U Benzodiazepines Scrn Not Detected (Not Detect) Urine Cocaine Screen Not Detected (Not Detect) U Marijuana (THC) Screen Not Detected (Not Detect) Discharge Plan Discharge Clinical Impression: Acute anxiety Patient Disposition: Still a Patient Prescriptions: No Action (DME) lancets [FreeStyle Lancets] 28 gauge misc topical DAILY clonazepam 1 mg Tablet 1 mg PO BID Qty: 60 0RF divalproex 250 mg Tablet Extended Release 24 Hr 750 mg PO BID Qty: 180 0RF quetiapine 50 mg Tablet 50 mg PO BEDTIME PRN (Reason: insomnia) Qty: 30 0RF hydrocortisone 1 % Cream 1 appl topical BID PRN (Reason: facial dermatitis) Qty: 10 0RF Protocol: Apply to: Apply to: face Dermacerin Cream 1 appl topical TID PRN (Reason: dry skin) Qty: 10 0RF Protocol: Apply to: Apply to: face acetaminophen [Tylenol] 325 mg tablet 650 mg PO Q4H PRN (Reason: fever or pain) Qty: 90 0RF atorvastatin 20 mg tablet 1 tab PO DAILY 30 Days Qty: 30 0RF clozapine 100 mg tablet 300 mg PO BEDTIME Qty: 45 1RF gabapentin 800 mg tablet 1 tab PO TID Qty: 90 0RF trazodone 100 mg tablet 200 mg PO BEDTIME Qty: 60 0RF metformin 1,000 mg tablet 1 tab PO BID Qty: 60 0RF benztropine 1 mg tablet 1 tab PO BID Qty: 60 0RF hydroxyzine HCl 25 mg tablet 1 tab PO DAILY PRN (Reason: Anxiety) Qty: 30 0RF metoprolol succinate 25 mg tablet extended release 24 hr 1 tab PO DAILY Qty: 30 0RF lorazepam 1 mg tablet 1 mg PO BID PRN (Reason: Anxiety) Qty: 30 1RF glipizide 10 mg tablet 1 tab PO DAILY mirtazapine 15 mg tablet 1 tab PO BEDTIME
[2023-09-22 14:36] LABS: MANUAL DIFF FLAG NO
[2023-09-22 14:39] LABS: Basophils Absolute Auto 0.1 X10*3/uL (0.0-0.2); Basophils Percent Auto 0.9 % (0-2); Eosinophils Percent Auto 0.5 % (0-4); Hematocrit 49.2 % (42.0-52.0); Imm Gran Abs Auto 0.03 X10*3/uL (0.00-0.03); Imm Gran Pct Auto 0.4 % (0.0-0.4); Lymphocytes Absolute Auto 1.6 X10*3/uL (1.2-4.9); Lymphocytes Percent Auto 19.9 % (20-40); Mean Corpuscular HGB Conc 32.5 g/dl (31.0-36.0); Monocytes Absolute Auto 0.6 X10*3/uL (0.1-1.2); Neutrophils Absolute Auto 5.6 x10*3/uL (2.0-8.3); Neutrophils Percent Auto 71.3 % (45-73); Platelet Count 211 X10*3/uL (160-400); Red Blood Count 5.72 X10*6/uL (4.60-5.80); Red Cell Distribution Width 13.8 % (11.0-16.0); White Blood Count 7.9 X10*3/uL (4.8-10.8)
[2023-09-22 14:54] LABS: Alanine Aminotransferase 51 U/L (0-40); Albumin Level 4.5 g/dL (3.5-5.0); Alkaline Phosphatase 104 U/L (39-117); Anion Gap 15 (12-20); Aspartate Amino Transferase 45 U/L (5-37); Bilirubin Direct 0.3 mg/dL (0.0-0.5); Bilirubin Total 0.5 mg/dL (0.0-1.0); Blood Urea Nitrogen 14 mg/dL (9-16); Calcium 9.7 mg/dL (8.4-10.2); Carbon Dioxide 25 mmol/L (22-29); Chloride 103 mmol/L (96-108); Creatinine Clr Calc Pharmacy 85.7; Estimated Glomerular Filt Rate > 60; Ethanol < 10 mg/dL; Glucose Random 231 mg/dL (60-115); Potassium 4.1 mmol/L (3.3-5.1); Sodium 139 mmol/L (135-145); Total Protein 7.4 g/dL (6.5-8.0)
--- NOTE | 2023-09-22 19:37 | MHC.EDTECH ---
Patient was given dinner ate 100 % of meal ,drank 360 ml fluids .
--- NOTE | 2023-09-22 21:58 | MHC.EDTECH ---
Patient was change into (green gown and blue Pants ,Patient belonging are locked up in Pod locker #7 ,Patient Observer at bedside .
--- NOTE | 2023-09-22 22:04 | MHC.CARE ---
CARE Team evaluation complete. Pt will be adult IPLOC bedsearch. Pt is voluntary and is on a section 12A. Pt and ED provider are aware of plan.
[2023-09-22] MEDS: Divalproex Sodium 250 MG TABLET.DR 750 MG PO (23:37)
[2023-09-22] MEDS: LORazepam 1 MG TABLET PO (23:38)
[2023-09-22] MEDS: traZODone HCL 100 MG TABLET 200 MG PO (23:38)
[2023-09-23] MEDS: cloZAPine 100 MG TABLET 300 MG PO ×2 (01:08→20:45)
--- NOTE | 2023-09-23 05:44 | PC.NURSE ---
Med rec could not be completed as pt unaware of all current medications.
--- NOTE | 2023-09-23 06:49 | PC.NURSE ---
Unable to complete med rec as pt is not aware of his medications names or dosage. Dr Linda aware of issue and this RN informed pharmacy who indicated that the person who does the med recs is not in yet, but she would let them know.
--- NOTE | 2023-09-23 08:23 | ECG_ITS ---
Test Reason : check qt Blood Pressure : / mmHG Vent. Rate : 102 BPM Atrial Rate : 102 BPM P-R Int : 146 ms QRS Dur : 088 ms QT Int : 356 ms P-R-T Axes : 029 033 059 degrees QTc Int : 463 ms Sinus tachycardia Otherwise normal ECG When compared with ECG of 26-NOV-2021 11:33, No significant change was found Referred By: Lynn Moran Electronically Signed By:DUDLEY DAWN MD
[2023-09-23 09:41] LABS: COVID-19 Test Negative (Negative); IDNOW Serial# 08D9AD1C
[2023-09-23 09:50] VITALS: BP 116/79; PULSE 109; RESP 18; TEMP 36.2; O2SAT 99
--- NOTE | 2023-09-23 11:00 | PHA.MEDREC ---
Pharmacy Consult ? Medication Reconciliation Pharmacy has completed the medication reconciliation. Since patient is unaware of all current medications (per nurse's note), medication reconciliation can only done through pharmacy claim history.
[2023-09-23 12:43] LABS: Glucose, Whole Blood 117 mg/dL (60-115)
--- NOTE | 2023-09-23 12:44 | PC.NURSE ---
Assumed care of patient at 1100, patient is resting comfortably. Denies complaints at this time. Respirations even and unlabored, skin pwd, alert and oriented x4. Pt verbalizes understanding of plan of care at this time
[2023-09-23 14:28] VITALS: BP 150/81; PULSE 134; RESP 16; TEMP 36.2; O2SAT 96
[2023-09-23 14:30] VITALS: BMI 29.7
--- NOTE | 2023-09-23 14:33 | PC.NURSE ---
Pt arrived to unit at approximately 1415. Pt safety search completed and toiletries given to patient. Vital signs and height and weight obtained and documented. New patient ID band applied and pt added to census board and safety checks board.
[2023-09-23] MEDS: Gabapentin 400 MG CAPSULE 800 MG PO ×2 (14:50→20:45)
[2023-09-23] MEDS: Gabapentin 100 MG CAPSULE PO ×2 (14:51→20:45)
[2023-09-23 14:52] VITALS: PULSE 122
[2023-09-23 18:00] VITALS: BP 138/96; PULSE 122; RESP 18; TEMP 36.7
[2023-09-23] MEDS: Divalproex Sodium ER 250 MG TAB.ER.24H 750 MG PO (20:44)
[2023-09-23] MEDS: clonazePAM 1 MG TABLET PO (20:44)
[2023-09-23] MEDS: traZODone HCL 100 MG TABLET 200 MG PO (20:44)
[2023-09-23] MEDS: Mirtazapine 15 MG TABLET PO (20:45)
[2023-09-23] MEDS: Benztropine Mesylate 1 MG TABLET PO (20:45)
[2023-09-23] MEDS: metFORMIN HCl 1,000 MG TABLET 1000 MG PO (20:46)
[2023-09-23] MEDS: QUEtiapine Fumarate 50 MG TABLET PO (20:47)
[2023-09-23 21:21] LABS: Glucose, Whole Blood 135 mg/dL (60-115)
[2023-09-24 08:00] VITALS: BP 119/58; PULSE 85; RESP 16; TEMP 36.2; O2SAT 92
[2023-09-24 08:29] LABS: Glucose, Whole Blood 123 mg/dL (60-115)
[2023-09-24 08:48] LABS: Estimated Average Glucose 120 mg/dL; Hemoglobin A1c % 5.8 % (<6.0)
[2023-09-24 08:58] LABS: Cholesterol 150 mg/dL (<200); HDL Cholesterol 30 mg/dL (>40); LDL Cholesterol Calculated 90 mg/dL (<100); Magnesium 2.3 mg/dL (1.6-2.6); Triglycerides 150 mg/dL (<150)
[2023-09-24] MEDS: Divalproex Sodium ER 250 MG TAB.ER.24H 750 MG PO ×2 (09:07→21:04)
[2023-09-24] MEDS: clonazePAM 1 MG TABLET PO (09:07)
[2023-09-24] MEDS: Gabapentin 400 MG CAPSULE 800 MG PO ×3 (09:07→21:04)
[2023-09-24] MEDS: Metoprolol Succinate ER 25 MG TAB.ER.24H PO (09:07)
[2023-09-24] MEDS: Benztropine Mesylate 1 MG TABLET PO (09:07)
[2023-09-24] MEDS: metFORMIN HCl 1,000 MG TABLET 1000 MG PO ×2 (09:07→21:03)
[2023-09-24] MEDS: Atorvastatin Calcium 40 MG TABLET PO (09:07)
[2023-09-24] MEDS: Empagliflozin 25 MG TABLET PO (09:07)
[2023-09-24] MEDS: Gabapentin 100 MG CAPSULE PO ×3 (09:08→21:02)
[2023-09-24 09:15] LABS: Free T4 (Free Thyroxine) 1.23 ng/dL (0.71-1.85); Thyroid Stimulating Hormone 1.06 uIU/mL (0.32-4.0)
[2023-09-24 09:27] LABS: Folate 10.8 ng/mL (> or = 4.0)
[2023-09-24 09:33] LABS: Vitamin B12 968 pg/mL (200-900)
--- NOTE | 2023-09-24 16:12 | HO.PSYADMNOT ---
HPI Date of Service: 09/24/23 Chief Complaint: Schizoaffective Disorder Sources of Information: patient interviewed, chart reviewed and crisis/core team assessment reviewed HPI Subjective Notes: [place] Warning and Conditional Voluntary Healthcare Proxy: No Guardianship: No Medical Problems Affecting Mental Status: No Narrative: 47 yo male, history of schizoaffective disorder. Team reports pt called 911 from his apartment with sx of anxiety. He reported being off meds for ~2 days. He presented with thought blocking and concentration reported difficulty along with poor sleep and appetite. He denied SI/HI. 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 Pt reports symptoms of anxiety and restlessness which have been gradually worsening. At times I feel I will jump out of my skin. Reports no new medicine changes. Asks for assistance with these symptoms specifically. He denies SI, HI, Perceptual alterations. and reports poor focus and concentration. Past Psychiatric History: history of recurrence psychiatric hospitalizations with psychosis and depression history of multiple psychiatric hospitalizations. IP: 2021 last admit to . Hx of S[facility] [place] along with several [facility] admits Out Pt: MER, Chris Goins-psychopharmacology Med Trials: Several PCP: Dr. Paris [phone] Therapist: Luma at [facility] [phone] Outreach: Chitra [phone] ([facility]) VNA: French: Eleuterio [phone] Medical Evaluation Reviewed: Yes [facility] Medical History Acute anxiety Schizoaffective disorder Diabetes 1.5, managed as type 2 Family History: mother with dementia Social History: patient was raised by his parents his father is his mother is in longterm he is single no children he is not employed never Substance History: none Trauma History: no trauma history Diagnostics Vital Signs (24Hr): Vital Signs - 24 hr 09/23/23 18:00 09/24/23 08:00 Temperature 98.0 F 97.2 F Pulse Rate 122 H 85 Respiratory Rate 18 16 Blood Pressure 138/96 H 119/58 L Pulse Oximetry 92 Oxygen Delivery Method Room Air Room Air BMI result Body Mass Index 29.7 Labs 09/22/23 14:32 01/31/24 14:32 Labs: Laboratory Results - last 48 hr 09/23/23 09/23/23 09/23/23 09:15 12:39 21:17 POC Glucose 117 H 135 H Estimat Average Glucose Hemoglobin A1c % Magnesium Triglycerides Cholesterol LDL Cholesterol, Calc HDL Cholesterol Vitamin B12 Folate TSH Free T4 COVID-19 (LINDA) Negative COVID-19 Clin Com See Note 09/24/23 09/24/23 08:14 08:23 POC Glucose 123 H Estimat Average Glucose 120 Hemoglobin A1c % 5.8 Magnesium 2.3 Triglycerides 150 H Cholesterol 150 LDL Cholesterol, Calc 90 HDL Cholesterol 30 L Vitamin B12 968 H Folate 10.8 TSH 1.06 Free T4 1.23 COVID-19 (LINDA) COVID-19 Clin Com Meds/Allergies Meds Home Medications Medication Instructions Recorded Confirmed Type lancets 28 gauge (FreeStyle 07/22/20 09/23/23 History Lancets) mirtazapine 15 mg tablet 1 tab PO BEDTIME 01/10/22 09/23/23 History atorvastatin 40 mg tablet 40 mg PO DAILY 09/23/23 09/23/23 History dulaglutide 3 mg/0.5 mL 3 mg subcut QWEEK 09/23/23 09/23/23 History subcutaneous pen injector (Trulicity) empagliflozin 25 mg tablet 25 mg PO DAILY 09/23/23 09/23/23 History (Jardiance) gabapentin 100 mg capsule 100 mg PO TID 09/23/23 09/23/23 History Allergies Allergies Allergy/AdvReac Type Severity Reaction Status Date / Time haloperidol [From Haldol] Allergy Intermediate Agitated Verified 02/04/21 19:02 lithium Allergy Intermediate Agitated Verified 02/04/21 19:02 oxcarbazepine Allergy Unknown RASH Verified 02/04/21 19:02 [From TRILEPTAL] fluphenazine [From Prolixin] Allergy akathisia Verified 12/09/21 11:48 Mental Status Exam Mental Status Exam Patient Appearance: Fatigued and Appropriate Patient Orientation: Person, Place, Time and Situation Level of Consciousness: Alert Patient Behavior: Talkative, Cooperative, Anxious, Fatigued, Distractible and Good Eye Contact Mood Description: Anxious Affect Description: Anxious Patient Cognition Impaired: No Ability to Follow Directions: Good Speech Pattern: Spontaneous Speech Memory Description: Episodic Impaired Hallucinations: None Delusions: Not Present Thought Process: Distracted and Rumination Thought Content: positive for [place], positive for Perseveration, positive for Preoccupation, positive for Thought Blocking and positive for Suicidal Ideation (denies) Depressive Symptoms: Increased Anxiety, Insomnia, Difficulty Sleeping, Changes in Appetite and Difficulty Concentrating Judgement: Fair Assessment & Plan Assessment & Plan (1) Schizoaffective disorder: Status: Acute Code(s): F25.9 - Schizoaffective disorder, unspecified (2) Acute anxiety: Status: Acute Code(s): F41.9 - Anxiety disorder, unspecified Plan 47 yo male, hx of schizoaffective disorder, reports an increase in anxiety and restlessness. 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 Patient educated on: therapeutic strategies Informed Consent: understands and further education needed Reason for continued inpatient stay Substantial Risk for: rapid decompensation Statement Statement: I have reviewed the history and physical and performed a pertinent examination on my patient. No changes have occurred unless specified. If the History and Physical was not performed prior to admission, the Hospitalist's service will be consulted for completing the admission physical. Time Spent With Patient Time: Total time managing care of this patient today ____ minutes.
[2023-09-24 17:20] VITALS: BP 111/74; PULSE 112; RESP 16; TEMP 36.2; O2SAT 96
[2023-09-24] MEDS: Mirtazapine 15 MG TABLET PO (21:02)
[2023-09-24] MEDS: clonazePAM 0.5 MG TABLET 1.5 MG PO (21:03)
[2023-09-24] MEDS: traZODone HCL 100 MG TABLET 200 MG PO (21:03)
[2023-09-24] MEDS: cloZAPine 100 MG TABLET 300 MG PO (21:04)
[2023-09-24] MEDS: Benztropine Mesylate 0.5 MG TABLET 1.5 MG PO (21:04)
[2023-09-24] MEDS: QUEtiapine Fumarate 50 MG TABLET PO (21:13)
[2023-09-24 21:23] LABS: Glucose, Whole Blood 169 mg/dL (60-115)
[2023-09-25 09:15] VITALS: BP 134/61; PULSE 108; RESP 16; TEMP 36.1; O2SAT 98
[2023-09-25] MEDS: Benztropine Mesylate 0.5 MG TABLET 1.5 MG PO ×2 (09:18→22:00)
[2023-09-25] MEDS: Metoprolol Succinate ER 25 MG TAB.ER.24H PO (09:18)
[2023-09-25] MEDS: Atorvastatin Calcium 40 MG TABLET PO (09:18)
[2023-09-25] MEDS: clonazePAM 0.5 MG TABLET 1.5 MG PO ×2 (09:18→22:00)
[2023-09-25] MEDS: Empagliflozin 25 MG TABLET PO (09:19)
[2023-09-25] MEDS: metFORMIN HCl 1,000 MG TABLET 1000 MG PO ×2 (09:19→22:00)
[2023-09-25] MEDS: Gabapentin 100 MG CAPSULE PO ×3 (09:19→22:00)
[2023-09-25] MEDS: Gabapentin 400 MG CAPSULE 800 MG PO ×3 (09:19→22:00)
[2023-09-25] MEDS: Divalproex Sodium ER 250 MG TAB.ER.24H 750 MG PO ×2 (09:19→21:59)
--- NOTE | 2023-09-25 10:54 | P.PNPSI_ITS ---
Subjective Subjective Date of Service: 09/25/23 Reason For Visit: Schizoaffective Disorder Interim History: met with patient. Discussed with Nursing. Chart reviewed. Isolative. Anxiety and depression still present, but perhaps slightly less. Reports feeling supported by staff. Hopeful that medication changes will help with anxiety and depression. Denies SI. Denies hallucinations or psychosis. Medication Compliance: Yes Side effects from medications: No Attending Groups: No Review of Systems Acute medical concerns: No Review of Systems Review of Systems Yes all other systems are reviewed and are negative Mental Status Exam Mental Status Exam Patient Appearance: Fatigued and Appropriate Patient Orientation: Person, Place, Time and Situation Level of Consciousness: Alert Patient Behavior: Talkative, Cooperative, Anxious, Fatigued, Distractible and Good Eye Contact Mood Description: Anxious Affect Description: Anxious Patient Cognition Impaired: No Ability to Follow Directions: Good Speech Pattern: Spontaneous Speech Hallucinations: None Delusions: Not Present Thought Content: positive for [place], positive for Perseveration, positive for Preoccupation, positive for Thought Blocking and positive for Suicidal Ideation (denied) Depressive Symptoms: Increased Anxiety, Insomnia, Difficulty Sleeping, Changes in Appetite and Difficulty Concentrating Judgement: Fair Diagnostics Vital Signs (24Hr): Vital Signs - 24 hr 09/24/23 17:20 09/25/23 09:15 Temperature 97.2 F 97.0 F Pulse Rate 112 H 108 H Respiratory Rate 16 16 Blood Pressure 111/74 134/61 Pulse Oximetry 96 98 Oxygen Delivery Method Room Air Room Air BMI result Body Mass Index 29.7 Labs 09/22/23 14:32 09/22/23 14:32 Labs: Laboratory Results - last 48 hr 09/23/23 09/23/23 09/24/23 12:39 21:17 08:14 POC Glucose 117 H 135 H Estimat Average Glucose 120 Hemoglobin A1c % 5.8 Magnesium 2.3 Triglycerides 150 H Cholesterol 150 LDL Cholesterol, Calc 90 HDL Cholesterol 30 L Vitamin B12 968 H Folate 10.8 TSH 1.06 Free T4 1.23 09/24/23 09/24/23 08:23 20:57 POC Glucose 123 H 169 H Estimat Average Glucose Hemoglobin A1c % Magnesium Triglycerides Cholesterol LDL Cholesterol, Calc HDL Cholesterol Vitamin B12 Folate TSH Free T4 Medications Medications Current Medications Acetaminophen (Acetaminophen 325 Mg Tablet) 650 mg PO Q6H PRN PRN Reason: Headache/Pain Mild Scale (1-3) Al Hydroxide/Mg Hydroxide (Magnesium Hydrox/Alum Hydrox 30 Ml Oral.Susp) 30 ml PO Q6H PRN PRN Reason: Heartburn/Nausea Atorvastatin Calcium (Atorvastatin Calcium 40 Mg Tablet) 40 mg PO DAILY [facility] Last Admin: 09/25/23 09:18 Dose: 40 mg Benztropine Mesylate (Benztropine Mesylate 0.5 Mg Tablet) 1.5 mg PO BID [facility] Last Admin: 09/25/23 09:18 Dose: 1.5 mg Clonazepam (Clonazepam 0.5 Mg Tablet) 1.5 mg PO BID [facility] Last Admin: 09/25/23 09:18 Dose: 1.5 mg Clozapine (Clozapine 100 Mg Tablet) 300 mg PO BEDTIME [facility] Last Admin: 09/24/23 21:04 Dose: 300 mg Divalproex Sodium (Divalproex Sodium Er 250 Mg Tab.Er.24h) 750 mg PO BID [facility] Last Admin: 09/25/23 09:19 Dose: 750 mg Empagliflozin (Empagliflozin 25 Mg Tablet) 25 mg PO DAILY [facility] Last Admin: 09/25/23 09:19 Dose: 25 mg Gabapentin (Gabapentin 100 Mg Capsule) 100 mg PO TID [facility] Last Admin: 09/25/23 09:19 Dose: 100 mg Gabapentin (Gabapentin 400 Mg Capsule) 800 mg PO TID [facility] Last Admin: 09/25/23 09:19 Dose: 800 mg Hydroxyzine HCl (Hydroxyzine Hcl 25 Mg Tablet) 25 mg PO DAILY PRN PRN Reason: Anxiety Magnesium Hydroxide (Milk Of Magnesia 30 Ml Oral.Susp) 30 ml PO DAILY PRN PRN Reason: Constipation Metformin HCl (Metformin Hcl 1,000 Mg Tablet) 1,000 mg PO BID [facility] Last Admin: 09/25/23 09:19 Dose: 1,000 mg Metoprolol Succinate (Metoprolol Succinate Er 25 Mg Tab.Er.24h) 25 mg PO DAILY [facility]; Protocol Last Admin: 09/25/23 09:18 Dose: 25 mg Mirtazapine (Mirtazapine 15 Mg Tablet) 15 mg PO BEDTIME [facility] Last Admin: 09/24/23 21:02 Dose: 15 mg Quetiapine Fumarate (Quetiapine Fumarate 50 Mg Tablet) 50 mg PO BEDTIME PRN PRN Reason: insomnia Last Admin: 09/24/23 21:13 Dose: 50 mg Trazodone HCl (Trazodone Hcl 100 Mg Tablet) 200 mg PO BEDTIME [facility] Last Admin: 09/24/23 21:03 Dose: 200 mg Allergies Allergies Allergy/AdvReac Type Severity Reaction Status Date / Time haloperidol [From Haldol] Allergy Intermediate Agitated Verified 02/04/21 19:02 lithium Allergy Intermediate Agitated Verified 02/04/21 19:02 oxcarbazepine Allergy Unknown RASH Verified 02/04/21 19:02 [From TRILEPTAL] fluphenazine [From Prolixin] Allergy akathisia Verified 12/09/21 11:48 Assessment & Plan Assessment & Plan (1) Schizoaffective disorder: Status: Acute Code(s): F25.9 - Schizoaffective disorder, unspecified (2) Acute anxiety: Status: Acute Code(s): F41.9 - Anxiety disorder, unspecified Plan 47 yo male, hx of schizoaffective disorder, reports an increase in anxiety and restlessness. 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 2/3: no changes for now Reason for continued inpatient stay Substantial Risk for: inability to function Time Spent With Patient Time: Total time managing care of this patient today ____ minutes.
[2023-09-25 12:38] LABS: Glucose, Whole Blood 164 mg/dL (60-115)
[2023-09-25 19:13] VITALS: BP 142/68; PULSE 101; RESP 16; TEMP 36.3; O2SAT 96
[2023-09-25 21:55] LABS: Glucose, Whole Blood 133 mg/dL (60-115)
[2023-09-25] MEDS: traZODone HCL 100 MG TABLET 200 MG PO (21:59)
[2023-09-25] MEDS: cloZAPine 100 MG TABLET 300 MG PO (21:59)
[2023-09-25] MEDS: QUEtiapine Fumarate 50 MG TABLET PO (22:00)
[2023-09-25] MEDS: Mirtazapine 15 MG TABLET PO (22:00)
[2023-09-26 08:29] LABS: Glucose, Whole Blood 110 mg/dL (60-115)
[2023-09-26 09:05] VITALS: BP 96/54; PULSE 94; RESP 16; TEMP 36.2; O2SAT 94
[2023-09-26] MEDS: Divalproex Sodium ER 250 MG TAB.ER.24H 750 MG PO ×2 (09:08→20:58)
[2023-09-26] MEDS: Atorvastatin Calcium 40 MG TABLET PO (09:09)
[2023-09-26] MEDS: Metoprolol Succinate ER 25 MG TAB.ER.24H PO (09:09)
[2023-09-26] MEDS: metFORMIN HCl 1,000 MG TABLET 1000 MG PO ×2 (09:09→21:01)
[2023-09-26] MEDS: Gabapentin 100 MG CAPSULE PO ×3 (09:09→21:01)
[2023-09-26] MEDS: Empagliflozin 25 MG TABLET PO (09:09)
[2023-09-26] MEDS: Benztropine Mesylate 0.5 MG TABLET 1.5 MG PO ×2 (09:09→21:00)
[2023-09-26] MEDS: clonazePAM 0.5 MG TABLET 1.5 MG PO ×2 (09:09→20:59)
[2023-09-26] MEDS: Gabapentin 400 MG CAPSULE 800 MG PO ×3 (09:09→20:59)
--- NOTE | 2023-09-26 12:12 | P.PNPSI_ITS ---
Subjective Subjective Date of Service: 09/26/23 Reason For Visit: Schizoaffective Disorder Interim History: Met with patient. Discussed with Nursing. Vomited once last night. Isolative. Denies feeling nauseous today. Anxiety and depression still present. Feeling supported by staff. Remains hopeful that medication changes will help with anxiety and depression. Denies SI. Denies hallucinations or psychosis. Medication Compliance: Yes Side effects from medications: No Attending Groups: No Review of Systems Acute medical concerns: No Review of Systems Review of Systems vomited once last night, but denies nausea, pain etc.. today Mental Status Exam Mental Status Exam Patient Appearance: Fatigued and Appropriate Patient Orientation: Person, Place, Time and Situation Level of Consciousness: Alert Patient Behavior: Talkative, Cooperative, Anxious, Fatigued and Distractible Mood Description: Anxious Affect Description: Anxious Patient Cognition Impaired: No Ability to Follow Directions: Good Speech Pattern: Spontaneous Speech Hallucinations: None Thought Content: positive for [place] Depressive Symptoms: Increased Anxiety Judgement: Fair Diagnostics Vital Signs (24Hr): Vital Signs - 24 hr 09/25/23 19:13 09/26/23 09:05 Temperature 97.3 F 97.1 F Pulse Rate 101 H 94 Respiratory Rate 16 16 Blood Pressure 142/68 H 96/54 L Pulse Oximetry 96 94 Oxygen Delivery Method Room Air Room Air BMI result Body Mass Index 29.7 Labs 09/22/23 14:32 09/22/23 14:32 Labs: Laboratory Results - last 48 hr 09/24/23 09/25/23 09/25/23 20:57 12:34 21:51 POC Glucose 169 H 164 H 133 H 09/26/23 08:24 POC Glucose 110 Medications Medications Current Medications Acetaminophen (Acetaminophen 325 Mg Tablet) 650 mg PO Q6H PRN PRN Reason: Headache/Pain Mild Scale (1-3) Al Hydroxide/Mg Hydroxide (Magnesium Hydrox/Alum Hydrox 30 Ml Oral.Susp) 30 ml PO Q6H PRN PRN Reason: Heartburn/Nausea Atorvastatin Calcium (Atorvastatin Calcium 40 Mg Tablet) 40 mg PO DAILY [facility] Last Admin: 09/26/23 09:09 Dose: 40 mg Benztropine Mesylate (Benztropine Mesylate 0.5 Mg Tablet) 1.5 mg PO BID [facility] Last Admin: 09/26/23 09:09 Dose: 1.5 mg Clonazepam (Clonazepam 0.5 Mg Tablet) 1.5 mg PO BID [facility] Last Admin: 09/26/23 09:09 Dose: 1.5 mg Clozapine (Clozapine 100 Mg Tablet) 300 mg PO BEDTIME [facility] Last Admin: 09/25/23 21:59 Dose: 300 mg Divalproex Sodium (Divalproex Sodium Er 250 Mg Tab.Er.24h) 750 mg PO BID [facility] Last Admin: 09/26/23 09:08 Dose: 750 mg Empagliflozin (Empagliflozin 25 Mg Tablet) 25 mg PO DAILY [facility] Last Admin: 09/26/23 09:09 Dose: 25 mg Gabapentin (Gabapentin 100 Mg Capsule) 100 mg PO TID [facility] Last Admin: 09/26/23 09:09 Dose: 100 mg Gabapentin (Gabapentin 400 Mg Capsule) 800 mg PO TID [facility] Last Admin: 09/26/23 09:09 Dose: 800 mg Hydroxyzine HCl (Hydroxyzine Hcl 25 Mg Tablet) 25 mg PO DAILY PRN PRN Reason: Anxiety Magnesium Hydroxide (Milk Of Magnesia 30 Ml Oral.Susp) 30 ml PO DAILY PRN PRN Reason: Constipation Metformin HCl (Metformin Hcl 1,000 Mg Tablet) 1,000 mg PO BID [facility] Last Admin: 09/26/23 09:09 Dose: 1,000 mg Metoprolol Succinate (Metoprolol Succinate Er 25 Mg Tab.Er.24h) 25 mg PO DAILY [facility]; Protocol Last Admin: 09/26/23 09:09 Dose: 25 mg Mirtazapine (Mirtazapine 15 Mg Tablet) 15 mg PO BEDTIME [facility] Last Admin: 09/25/23 22:00 Dose: 15 mg Quetiapine Fumarate (Quetiapine Fumarate 50 Mg Tablet) 50 mg PO BEDTIME PRN PRN Reason: insomnia Last Admin: 09/25/23 22:00 Dose: 50 mg Trazodone HCl (Trazodone Hcl 100 Mg Tablet) 200 mg PO BEDTIME [facility] Last Admin: 09/25/23 21:59 Dose: 200 mg Allergies Allergies Allergy/AdvReac Type Severity Reaction Status Date / Time haloperidol [From Haldol] Allergy Intermediate Agitated Verified 02/04/21 19:02 lithium Allergy Intermediate Agitated Verified 02/04/21 19:02 oxcarbazepine Allergy Unknown RASH Verified 02/04/21 19:02 [From TRILEPTAL] fluphenazine [From Prolixin] Allergy akathisia Verified 12/09/21 11:48 Assessment & Plan Assessment & Plan (1) Schizoaffective disorder: Status: Acute Code(s): F25.9 - Schizoaffective disorder, unspecified (2) Acute anxiety: Status: Acute Code(s): F41.9 - Anxiety disorder, unspecified Plan 47 yo male, hx of schizoaffective disorder, reports an increase in anxiety and restlessness. 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 2/3: no changes for now 4: no changes Reason for continued inpatient stay Substantial Risk for: inability to function Time Spent With Patient Time: Total time managing care of this patient today ____ minutes.
[2023-09-26 18:10] VITALS: BP 111/65; PULSE 99; RESP 18; TEMP 36.2; O2SAT 97
[2023-09-26] MEDS: traZODone HCL 100 MG TABLET 200 MG PO (20:59)
[2023-09-26] MEDS: cloZAPine 100 MG TABLET 300 MG PO (21:00)
[2023-09-26] MEDS: Mirtazapine 15 MG TABLET PO (21:01)
[2023-09-26] MEDS: QUEtiapine Fumarate 50 MG TABLET PO (21:02)
[2023-09-27 08:27] LABS: Glucose, Whole Blood 101 mg/dL (60-115)
[2023-09-27 08:36] VITALS: BP 139/63; PULSE 104; RESP 16; TEMP 36.7; O2SAT 96
[2023-09-27] MEDS: metFORMIN HCl 1,000 MG TABLET 1000 MG PO ×2 (09:20→21:12)
[2023-09-27] MEDS: Gabapentin 100 MG CAPSULE PO ×3 (09:21→21:12)
[2023-09-27] MEDS: Gabapentin 400 MG CAPSULE 800 MG PO ×3 (09:21→21:12)
[2023-09-27] MEDS: Empagliflozin 25 MG TABLET PO (09:21)
[2023-09-27] MEDS: Benztropine Mesylate 0.5 MG TABLET 1.5 MG PO ×2 (09:21→21:11)
[2023-09-27] MEDS: Divalproex Sodium ER 250 MG TAB.ER.24H 750 MG PO ×2 (09:21→21:12)
[2023-09-27] MEDS: Metoprolol Succinate ER 25 MG TAB.ER.24H PO (09:21)
[2023-09-27] MEDS: clonazePAM 0.5 MG TABLET 1.5 MG PO ×2 (09:21→21:12)
[2023-09-27] MEDS: Atorvastatin Calcium 40 MG TABLET PO (09:21)
--- NOTE | 2023-09-27 15:05 | HO.PSYCHPN ---
Subjective Subjective Date of Service: 09/27/23 Reason For Visit: Schizoaffective Disorder Subjective Notes: Conditional Voluntary Healthcare Proxy: No Guardianship: No Medical Problems Affecting Mental Status: No Interim History: Pt seen, reviewed with team. Pt reports some improvement, gradual . Reports sx 6/10 of anxiety and depression. States he is beginning to attend groups. Team report he continues with isolative, withdrawn behaviors and is not too integrated in the milieu. Medication Compliance: Yes Side effects from medications: No Attending Groups: Intermittent Review of Systems Acute medical concerns: No Medical Review of Systems: unchanged Review of Systems Review of Systems Yes all other systems are reviewed and are negative (denies) Mental Status Exam Mental Status Exam Patient Appearance: Disheveled Patient Orientation: Person, Place, Time and Situation Level of Consciousness: Alert Patient Behavior: Talkative, Isolative and Good Eye Contact Mood Description: Depressed Affect Description: Flat Patient Cognition Impaired: No Ability to Follow Directions: Good Speech Pattern: Spontaneous Speech Memory Description: Episodic Impaired Hallucinations: None Delusions: Paranoid Ideation Thought Process: Rumination Thought Content: positive for [place] Depressive Symptoms: Increased Anxiety Abnormal Motor Activity Signs and Symptoms: Restlessness Judgement: Fair Diagnostics Vital Signs (24Hr): Vital Signs - 24 hr 09/26/23 18:10 09/27/23 08:36 Temperature 97.2 F 98.1 F Pulse Rate 99 104 H Respiratory Rate 18 16 Blood Pressure 111/65 139/63 Pulse Oximetry 97 96 Oxygen Delivery Method Room Air Room Air BMI result Body Mass Index 29.7 Labs 09/22/23 14:32 09/22/23 14:32 Labs: Laboratory Results - last 48 hr 09/25/23 09/26/23 09/27/23 21:51 08:24 08:18 POC Glucose 133 H 110 101 Medications Medications Current Medications Acetaminophen (Acetaminophen 325 Mg Tablet) 650 mg PO Q6H PRN PRN Reason: Headache/Pain Mild Scale (1-3) Al Hydroxide/Mg Hydroxide (Magnesium Hydrox/Alum Hydrox 30 Ml Oral.Susp) 30 ml PO Q6H PRN PRN Reason: Heartburn/Nausea Atorvastatin Calcium (Atorvastatin Calcium 40 Mg Tablet) 40 mg PO DAILY [facility] Last Admin: 09/27/23 09:21 Dose: 40 mg Benztropine Mesylate (Benztropine Mesylate 0.5 Mg Tablet) 1.5 mg PO BID [facility] Last Admin: 09/27/23 09:21 Dose: 1.5 mg Clonazepam (Clonazepam 0.5 Mg Tablet) 1.5 mg PO BID [facility] Last Admin: 09/27/23 09:21 Dose: 1.5 mg Clozapine (Clozapine 100 Mg Tablet) 300 mg PO BEDTIME [facility] Last Admin: 09/26/23 21:00 Dose: 300 mg Divalproex Sodium (Divalproex Sodium Er 250 Mg Tab.Er.24h) 750 mg PO BID [facility] Last Admin: 09/27/23 09:21 Dose: 750 mg Empagliflozin (Empagliflozin 25 Mg Tablet) 25 mg PO DAILY [facility] Last Admin: 09/27/23 09:21 Dose: 25 mg Gabapentin (Gabapentin 100 Mg Capsule) 100 mg PO TID [facility] Last Admin: 09/27/23 15:04 Dose: 100 mg Gabapentin (Gabapentin 400 Mg Capsule) 800 mg PO TID [facility] Last Admin: 09/27/23 15:04 Dose: 800 mg Hydroxyzine HCl (Hydroxyzine Hcl 25 Mg Tablet) 25 mg PO DAILY PRN PRN Reason: Anxiety Magnesium Hydroxide (Milk Of Magnesia 30 Ml Oral.Susp) 30 ml PO DAILY PRN PRN Reason: Constipation Metformin HCl (Metformin Hcl 1,000 Mg Tablet) 1,000 mg PO BID [facility] Last Admin: 09/27/23 09:20 Dose: 1,000 mg Metoprolol Succinate (Metoprolol Succinate Er 25 Mg Tab.Er.24h) 25 mg PO DAILY [facility]; Protocol Last Admin: 09/27/23 09:21 Dose: 25 mg Mirtazapine (Mirtazapine 15 Mg Tablet) 15 mg PO BEDTIME [facility] Last Admin: 09/26/23 21:01 Dose: 15 mg Quetiapine Fumarate (Quetiapine Fumarate 50 Mg Tablet) 50 mg PO BEDTIME PRN PRN Reason: insomnia Last Admin: 09/26/23 21:02 Dose: 50 mg Sodium Chloride (Sodium Chloride 0.65 % Nasal 44 Ml Sprbtl) 1 spray NOSTRIL-B Q1H PRN PRN Reason: Dryness Trazodone HCl (Trazodone Hcl 100 Mg Tablet) 200 mg PO BEDTIME [facility] Last Admin: 09/26/23 20:59 Dose: 200 mg Allergies Allergies Allergy/AdvReac Type Severity Reaction Status Date / Time haloperidol [From Haldol] Allergy Intermediate Agitated Verified 06/15/21 19:02 lithium Allergy Intermediate Agitated Verified 02/04/21 19:02 oxcarbazepine Allergy Unknown RASH Verified 02/04/21 19:02 [From TRILEPTAL] fluphenazine [From Prolixin] Allergy akathisia Verified 12/09/21 11:48 Assessment & Plan Assessment & Plan (1) Schizoaffective disorder: Status: Acute Code(s): F25.9 - Schizoaffective disorder, unspecified (2) Acute anxiety: Status: Acute Code(s): F41.9 - Anxiety disorder, unspecified Plan 47 yo male, hx of schizoaffective disorder, reports an increase in anxiety and restlessness. 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 2/3: no changes for now 2/4: no changes 2/5: Discussed changes w/pt. He believes there is improvement and we should hold. Patient educated on: medication risk/benefits and therapeutic strategies Informed Consent: understands and further education needed Reason for continued inpatient stay Substantial Risk for: rapid decompensation Time Spent With Patient Time: Total time managing care of this patient today ____ minutes.
[2023-09-27 18:25] VITALS: BP 123/70; PULSE 95; RESP 16; TEMP 36.2; O2SAT 95
[2023-09-27] MEDS: traZODone HCL 100 MG TABLET 200 MG PO (21:11)
[2023-09-27] MEDS: QUEtiapine Fumarate 50 MG TABLET PO (21:12)
[2023-09-27] MEDS: cloZAPine 100 MG TABLET 300 MG PO (21:12)
[2023-09-27] MEDS: Mirtazapine 15 MG TABLET PO (21:12)
[2023-09-27 21:17] LABS: Glucose, Whole Blood 155 mg/dL (60-115)
[2023-09-28 08:00] VITALS: BP 115/72; PULSE 78; RESP 16; TEMP 36.2; O2SAT 95
[2023-09-28 08:15] LABS: Glucose, Whole Blood 90 mg/dL (60-115)
[2023-09-28] MEDS: clonazePAM 0.5 MG TABLET 1.5 MG PO ×2 (08:41→21:07)
[2023-09-28] MEDS: Benztropine Mesylate 0.5 MG TABLET 1.5 MG PO ×2 (08:41→21:08)
[2023-09-28] MEDS: Metoprolol Succinate ER 25 MG TAB.ER.24H PO (08:41)
[2023-09-28] MEDS: Gabapentin 400 MG CAPSULE 800 MG PO ×3 (08:42→21:04)
[2023-09-28] MEDS: Atorvastatin Calcium 40 MG TABLET PO (08:42)
[2023-09-28] MEDS: Gabapentin 100 MG CAPSULE PO ×3 (08:42→21:08)
[2023-09-28] MEDS: Divalproex Sodium ER 250 MG TAB.ER.24H 750 MG PO ×2 (08:42→21:06)
[2023-09-28] MEDS: Empagliflozin 25 MG TABLET PO (08:43)
[2023-09-28] MEDS: metFORMIN HCl 1,000 MG TABLET 1000 MG PO ×2 (08:43→21:09)
--- NOTE | 2023-09-28 14:22 | HO.PSYCHPN ---
Subjective Subjective Date of Service: 09/28/23 Reason For Visit: Schizoaffective Disorder Subjective Notes: Conditional Voluntary Healthcare Proxy: No Guardianship: No Medical Problems Affecting Mental Status: No Interim History: Pt seen, discussed in team meeting. Pt reports some relief from sx of anxiety, restlessness. Reports symptoms are more severe in the morning, and decrease as the day progresses. Denies medical symptoms or medicine side effects. Medication Compliance: Yes Side effects from medications: No Attending Groups: Intermittent Review of Systems Acute medical concerns: No Medical Review of Systems: unchanged Review of Systems Review of Systems Yes all other systems are reviewed and are negative (denies) Mental Status Exam Mental Status Exam Patient Appearance: Disheveled Patient Orientation: Person, Place, Time and Situation Level of Consciousness: Alert Patient Behavior: Talkative, Isolative and Good Eye Contact Mood Description: Depressed Affect Description: Flat Patient Cognition Impaired: No Ability to Follow Directions: Good Speech Pattern: Spontaneous Speech Memory Description: Episodic Impaired Hallucinations: None Delusions: Paranoid Ideation Thought Process: Rumination Thought Content: positive for Perseveration Depressive Symptoms: Increased Anxiety Abnormal Motor Activity Signs and Symptoms: Restlessness Judgement: Fair Diagnostics Vital Signs (24Hr): Vital Signs - 24 hr 09/27/23 18:25 09/28/23 08:00 Temperature 97.2 F 97.1 F Pulse Rate 95 78 Respiratory Rate 16 16 Blood Pressure 123/70 115/72 Pulse Oximetry 95 95 Oxygen Delivery Method Room Air Room Air BMI result Body Mass Index 29.7 Labs 09/22/23 14:32 09/22/23 14:32 Labs: Laboratory Results - last 48 hr 09/27/23 09/27/23 09/28/23 08:18 21:03 08:08 POC Glucose 101 155 H 90 Medications Medications Current Medications Acetaminophen (Acetaminophen 325 Mg Tablet) 650 mg PO Q6H PRN PRN Reason: Headache/Pain Mild Scale (1-3) Al Hydroxide/Mg Hydroxide (Magnesium Hydrox/Alum Hydrox 30 Ml Oral.Susp) 30 ml PO Q6H PRN PRN Reason: Heartburn/Nausea Atorvastatin Calcium (Atorvastatin Calcium 40 Mg Tablet) 40 mg PO DAILY [facility] Last Admin: 09/28/23 08:42 Dose: 40 mg Benztropine Mesylate (Benztropine Mesylate 0.5 Mg Tablet) 1.5 mg PO BID [facility] Last Admin: 02/06/24 08:41 Dose: 1.5 mg Clonazepam (Clonazepam 0.5 Mg Tablet) 1.5 mg PO BID [facility] Last Admin: 09/28/23 08:41 Dose: 1.5 mg Clozapine (Clozapine 100 Mg Tablet) 300 mg PO BEDTIME [facility] Last Admin: 09/27/23 21:12 Dose: 300 mg Divalproex Sodium (Divalproex Sodium Er 250 Mg Tab.Er.24h) 750 mg PO BID [facility] Last Admin: 09/28/23 08:42 Dose: 750 mg Empagliflozin (Empagliflozin 25 Mg Tablet) 25 mg PO DAILY [facility] Last Admin: 09/28/23 08:43 Dose: 25 mg Gabapentin (Gabapentin 100 Mg Capsule) 100 mg PO TID [facility] Last Admin: 09/28/23 08:42 Dose: 100 mg Gabapentin (Gabapentin 400 Mg Capsule) 800 mg PO TID [facility] Last Admin: 09/28/23 08:42 Dose: 800 mg Hydroxyzine HCl (Hydroxyzine Hcl 25 Mg Tablet) 25 mg PO DAILY PRN PRN Reason: Anxiety Magnesium Hydroxide (Milk Of Magnesia 30 Ml Oral.Susp) 30 ml PO DAILY PRN PRN Reason: Constipation Metformin HCl (Metformin Hcl 1,000 Mg Tablet) 1,000 mg PO BID [facility] Last Admin: 09/28/23 08:43 Dose: 1,000 mg Metoprolol Succinate (Metoprolol Succinate Er 25 Mg Tab.Er.24h) 25 mg PO DAILY [facility]; Protocol Last Admin: 09/28/23 08:41 Dose: 25 mg Mirtazapine (Mirtazapine 15 Mg Tablet) 15 mg PO BEDTIME [facility] Last Admin: 09/27/23 21:12 Dose: 15 mg Quetiapine Fumarate (Quetiapine Fumarate 50 Mg Tablet) 50 mg PO BEDTIME PRN PRN Reason: insomnia Last Admin: 09/27/23 21:12 Dose: 50 mg Sodium Chloride (Sodium Chloride 0.65 % Nasal 44 Ml Sprbtl) 1 spray NOSTRIL-B Q1H PRN PRN Reason: Dryness Trazodone HCl (Trazodone Hcl 100 Mg Tablet) 200 mg PO BEDTIME [facility] Last Admin: 09/27/23 21:11 Dose: 200 mg Allergies Allergies Allergy/AdvReac Type Severity Reaction Status Date / Time haloperidol [From Haldol] Allergy Intermediate Agitated Verified 02/04/21 19:02 lithium Allergy Intermediate Agitated Verified 02/04/21 19:02 oxcarbazepine Allergy Unknown RASH Verified 02/04/21 19:02 [From TRILEPTAL] fluphenazine [From Prolixin] Allergy akathisia Verified 12/09/21 11:48 Assessment & Plan Assessment & Plan (1) Schizoaffective disorder: Status: Acute Code(s): F25.9 - Schizoaffective disorder, unspecified (2) Acute anxiety: Status: Acute Code(s): F41.9 - Anxiety disorder, unspecified Plan 47 yo male, hx of schizoaffective disorder, reports an increase in anxiety and restlessness. 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 09/25: no changes for now 09/26: no changes 09/28/23: Valproate, Clozapine levels Increase Remeron to 22.5 mg HS to address anxiety Seroquel 25 mg bid prn to address anxiety, restlessness Patient educated on: medication risk/benefits and therapeutic strategies Informed Consent: understands and further education needed Reason for continued inpatient stay Substantial Risk for: rapid decompensation Time Spent With Patient Time: Total time managing care of this patient today ____ minutes.
[2023-09-28 18:00] VITALS: BP 135/73; PULSE 107; RESP 18; TEMP 36.6; O2SAT 97
[2023-09-28 19:13] LABS: Glucose, Whole Blood 158 mg/dL (60-115)
[2023-09-28] MEDS: Mirtazapine 7.5 MG TABLET 22.5 MG PO (21:05)
[2023-09-28] MEDS: cloZAPine 100 MG TABLET 300 MG PO (21:06)
[2023-09-28] MEDS: traZODone HCL 100 MG TABLET 200 MG PO (21:08)
[2023-09-28] MEDS: QUEtiapine Fumarate 50 MG TABLET PO (21:22)
[2023-09-29 08:23] VITALS: BP 116/74; PULSE 91; RESP 16; TEMP 36.1; O2SAT 96
[2023-09-29 08:26] LABS: Glucose, Whole Blood 92 mg/dL (60-115)
--- NOTE | 2023-09-29 08:37 | P.PNPSI_ITS ---
Subjective Subjective Date of Service: 09/29/23 Reason For Visit: Schizoaffective Disorder Subjective Notes: Conditional Voluntary Healthcare Proxy: No Guardianship: No Medical Problems Affecting Mental Status: No Interim History: Pt reports feeling some improvement. He reports attending groups, improved sleep, tolerating recent med changes, finding some benefit. Visable in milieu. Discussed his concern that he is asked to shower each day, reports he is showering and wanted to clarify this for us. Increased interaction and initiation today in our meeting. Medication Compliance: Yes Side effects from medications: No Attending Groups: Yes Review of Systems Acute medical concerns: No Medical Review of Systems: unchanged Review of Systems Review of Systems Yes all other systems are reviewed and are negative (denies) Mental Status Exam Mental Status Exam Patient Appearance: Appropriate Patient Orientation: Person, Place, Time and Situation Level of Consciousness: Alert Patient Behavior: Talkative, Isolative and Good Eye Contact Mood Description: Constricted Affect Description: Flat Patient Cognition Impaired: No Ability to Follow Directions: Good Speech Pattern: Spontaneous Speech Memory Description: Episodic Impaired Hallucinations: None Delusions: Paranoid Ideation Thought Process: Rumination Thought Content: positive for Perseveration Depressive Symptoms: Increased Anxiety Abnormal Motor Activity Signs and Symptoms: Restlessness Judgement: Fair Diagnostics Vital Signs (24Hr): Vital Signs - 24 hr 09/28/23 18:00 09/29/23 08:23 Temperature 97.8 F 97 F Pulse Rate 107 H 91 Respiratory Rate 18 16 Blood Pressure 135/73 116/74 Pulse Oximetry 97 96 Oxygen Delivery Method Room Air Room Air BMI result Body Mass Index 29.7 Labs 09/22/23 14:32 09/29/23 08:28 Labs: Laboratory Results - last 48 hr 09/27/23 09/28/23 09/28/23 21:03 08:08 19:09 POC Glucose 155 H 90 158 H 09/29/23 08:22 POC Glucose 92 Medications Medications Current Medications Acetaminophen (Acetaminophen 325 Mg Tablet) 650 mg PO Q6H PRN PRN Reason: Headache/Pain Mild Scale (1-3) Al Hydroxide/Mg Hydroxide (Magnesium Hydrox/Alum Hydrox 30 Ml Oral.Susp) 30 ml PO Q6H PRN PRN Reason: Heartburn/Nausea Atorvastatin Calcium (Atorvastatin Calcium 40 Mg Tablet) 40 mg PO DAILY [facility] Last Admin: 09/28/23 08:42 Dose: 40 mg Benztropine Mesylate (Benztropine Mesylate 0.5 Mg Tablet) 1.5 mg PO BID [facility] Last Admin: 09/28/23 21:08 Dose: 1.5 mg Clonazepam (Clonazepam 0.5 Mg Tablet) 1.5 mg PO BID [facility] Last Admin: 09/28/23 21:07 Dose: 1.5 mg Clozapine (Clozapine 100 Mg Tablet) 300 mg PO BEDTIME [facility] Last Admin: 09/28/23 21:06 Dose: 300 mg Divalproex Sodium (Divalproex Sodium Er 250 Mg Tab.Er.24h) 750 mg PO BID [facility] Last Admin: 09/28/23 21:06 Dose: 750 mg Empagliflozin (Empagliflozin 25 Mg Tablet) 25 mg PO DAILY [facility] Last Admin: 09/28/23 08:43 Dose: 25 mg Gabapentin (Gabapentin 100 Mg Capsule) 100 mg PO TID [facility] Last Admin: 09/28/23 21:08 Dose: 100 mg Gabapentin (Gabapentin 400 Mg Capsule) 800 mg PO TID [facility] Last Admin: 09/28/23 21:04 Dose: 800 mg Hydroxyzine HCl (Hydroxyzine Hcl 25 Mg Tablet) 25 mg PO DAILY PRN PRN Reason: Anxiety Magnesium Hydroxide (Milk Of Magnesia 30 Ml Oral.Susp) 30 ml PO DAILY PRN PRN Reason: Constipation Metformin HCl (Metformin Hcl 1,000 Mg Tablet) 1,000 mg PO BID [facility] Last Admin: 09/28/23 21:09 Dose: 1,000 mg Metoprolol Succinate (Metoprolol Succinate Er 25 Mg Tab.Er.24h) 25 mg PO DAILY [facility]; Protocol Last Admin: 09/28/23 08:41 Dose: 25 mg Mirtazapine (Mirtazapine 7.5 Mg Tablet) 22.5 mg PO BEDTIME [facility] Last Admin: 09/28/23 21:05 Dose: 22.5 mg Quetiapine Fumarate (Quetiapine Fumarate 50 Mg Tablet) 50 mg PO BEDTIME PRN PRN Reason: insomnia Last Admin: 09/28/23 21:22 Dose: 50 mg Quetiapine Fumarate (Quetiapine Fumarate 25 Mg Tablet) 25 mg PO BID PRN PRN Reason: anxiety Sodium Chloride (Sodium Chloride 0.65 % Nasal 44 Ml Sprbtl) 1 spray NOSTRIL-B Q1H PRN PRN Reason: Dryness Trazodone HCl (Trazodone Hcl 100 Mg Tablet) 200 mg PO BEDTIME [facility] Last Admin: 09/28/23 21:08 Dose: 200 mg Allergies Allergies Allergy/AdvReac Type Severity Reaction Status Date / Time haloperidol [From Haldol] Allergy Intermediate Agitated Verified 02/04/21 19:02 lithium Allergy Intermediate Agitated Verified 02/04/21 19:02 oxcarbazepine Allergy Unknown RASH Verified 02/04/21 19:02 [From TRILEPTAL] fluphenazine [From Prolixin] Allergy akathisia Verified 12/09/21 11:48 Assessment & Plan Assessment & Plan (1) Schizoaffective disorder: Status: Acute Code(s): F25.9 - Schizoaffective disorder, unspecified (2) Acute anxiety: Status: Acute Code(s): F41.9 - Anxiety disorder, unspecified Plan 47 yo male, hx of schizoaffective disorder, reports an increase in anxiety and restlessness. Also reports stopping medicines ~2 days [employer]. 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 09/25: no changes for now 09/26: no changes 09/28/23: Valproate, Clozapine levels Increase Remeron to 22.5 mg HS to address anxiety Seroquel 25 mg bid prn to address anxiety, restlessness 09/29/23: Continue treatment Patient educated on: medication risk/benefits and therapeutic strategies Informed Consent: understands Reason for continued inpatient stay Substantial Risk for: rapid decompensation Time Spent With Patient Time: Total time managing care of this patient today ____ minutes.
[2023-09-29 08:50] LABS: Neut%MD 52.2 %; Neutrophils Absolute Auto 4.3 x10*3/uL (2.0-8.3); WBCANC 8.2 X10*3/uL
[2023-09-29 09:03] LABS: Valproate 68.2 mcg/mL (50.0-100.0)
[2023-09-29 09:05] LABS: Creatinine Clr Calc Pharmacy 91.4; Estimated Glomerular Filt Rate > 60
[2023-09-29] MEDS: Benztropine Mesylate 0.5 MG TABLET 1.5 MG PO ×2 (09:12→21:33)
[2023-09-29] MEDS: Divalproex Sodium ER 250 MG TAB.ER.24H 750 MG PO ×2 (09:12→21:35)
[2023-09-29] MEDS: metFORMIN HCl 1,000 MG TABLET 1000 MG PO ×2 (09:12→21:35)
[2023-09-29] MEDS: Atorvastatin Calcium 40 MG TABLET PO (09:13)
[2023-09-29] MEDS: clonazePAM 0.5 MG TABLET 1.5 MG PO ×2 (09:13→21:33)
[2023-09-29] MEDS: Empagliflozin 25 MG TABLET PO (09:13)
[2023-09-29] MEDS: Metoprolol Succinate ER 25 MG TAB.ER.24H PO (09:13)
[2023-09-29] MEDS: Gabapentin 400 MG CAPSULE 800 MG PO ×3 (09:14→21:32)
[2023-09-29] MEDS: Gabapentin 100 MG CAPSULE PO ×3 (09:14→21:35)
[2023-09-29] MEDS: Magnesium Hydrox/Alum Hydrox 30 ML ORAL.SUSP PO (17:33)
[2023-09-29 18:45] VITALS: BP 128/77; PULSE 102; RESP 16; TEMP 36.3; O2SAT 97
[2023-09-29] MEDS: QUEtiapine Fumarate 50 MG TABLET PO (21:34)
[2023-09-29] MEDS: cloZAPine 100 MG TABLET 300 MG PO (21:34)
[2023-09-29] MEDS: traZODone HCL 100 MG TABLET 200 MG PO (21:34)
[2023-09-29] MEDS: Mirtazapine 7.5 MG TABLET 22.5 MG PO (21:36)
[2023-09-29 22:02] LABS: Glucose, Whole Blood 195 mg/dL (60-115)
[2023-09-30 07:00] VITALS: BMI 32.9
[2023-09-30 08:23] LABS: Glucose, Whole Blood 118 mg/dL (60-115)
[2023-09-30 08:30] VITALS: BP 129/60; PULSE 86; RESP 16; TEMP 36.2; O2SAT 96
[2023-09-30] MEDS: Benztropine Mesylate 0.5 MG TABLET 1.5 MG PO ×2 (08:35→22:00)
[2023-09-30] MEDS: clonazePAM 0.5 MG TABLET 1.5 MG PO ×2 (08:36→21:59)
[2023-09-30] MEDS: Divalproex Sodium ER 250 MG TAB.ER.24H 750 MG PO ×2 (08:36→21:58)
[2023-09-30] MEDS: Metoprolol Succinate ER 25 MG TAB.ER.24H PO (08:36)
[2023-09-30] MEDS: metFORMIN HCl 1,000 MG TABLET 1000 MG PO ×2 (08:37→22:04)
[2023-09-30] MEDS: Atorvastatin Calcium 40 MG TABLET PO (08:37)
[2023-09-30] MEDS: Gabapentin 100 MG CAPSULE PO ×3 (08:37→22:00)
[2023-09-30] MEDS: Empagliflozin 25 MG TABLET PO (08:37)
[2023-09-30] MEDS: Gabapentin 400 MG CAPSULE 800 MG PO ×3 (08:38→21:59)
[2023-09-30 16:16] VITALS: BP 130/74; PULSE 117; RESP 18; TEMP 36.8; O2SAT 97
--- NOTE | 2023-09-30 16:32 | HO.PSYCHPN ---
Subjective Subjective Date of Service: 09/30/23 Reason For Visit: Schizoaffective Disorder Subjective Notes: Conditional Voluntary Healthcare Proxy: No Guardianship: No Medical Problems Affecting Mental Status: No Interim History: Pt reports ongoing improvement. He reports it does take approximately one hour to fall asleep. Pt showered today- he reports he prefers to shower in the evening between 8-8:30pm OP team reports concerns with pt's incontinence and not attending to ADL's-pt disagrees, and reports one episode of incontinence. He asks for no urological follow up at this time. OP team reports concerns with pt's gait and balance. He will allow a PT consult which was ordered. Pt today is interested in discussion of music-Swapna Solano, Leonel Metz. Medication Compliance: Yes Side effects from medications: No Attending Groups: Yes Review of Systems Acute medical concerns: No Medical Review of Systems: unchanged Review of Systems Review of Systems Will allow PT Consult for gait assessment Yes all other systems are reviewed and are negative (denies) Mental Status Exam Mental Status Exam Patient Appearance: Appropriate Patient Orientation: Person, Place, Time and Situation Level of Consciousness: Alert Patient Behavior: Talkative and Good Eye Contact Mood Description: Flat Affect Description: Flat Patient Cognition Impaired: No Ability to Follow Directions: Good Speech Pattern: Spontaneous Speech Memory Description: Episodic Impaired Hallucinations: None Delusions: Paranoid Ideation Thought Process: Rumination Depressive Symptoms: Increased Anxiety Abnormal Motor Activity Signs and Symptoms: Restlessness Judgement: Fair Diagnostics Vital Signs (24Hr): Vital Signs - 24 hr 09/29/23 18:45 09/30/23 08:30 09/30/23 16:16 Temperature 97.3 F 97.2 F 98.2 F Pulse Rate 102 H 86 117 H Respiratory Rate 16 16 18 Blood Pressure 128/77 129/60 130/74 Pulse Oximetry 97 96 97 Oxygen Delivery Method Room Air Room Air Room Air BMI result Body Mass Index 32.9 Labs 09/22/23 14:32 09/29/23 08:28 Labs: Laboratory Results - last 48 hr 09/28/23 09/29/23 09/29/23 19:09 08:22 08:28 Absolute Neuts (auto) 4.3 Creatinine 1.08 Estim Creat Clear Calc 91.4 Estimated GFR > 60 POC Glucose 158 H 92 Valproic Acid 68.2 09/29/23 09/30/23 21:27 08:19 Absolute Neuts (auto) Creatinine Estim Creat Clear Calc Estimated GFR POC Glucose 195 H 118 H Valproic Acid Medications Medications Current Medications Acetaminophen (Acetaminophen 325 Mg Tablet) 650 mg PO Q6H PRN PRN Reason: Headache/Pain Mild Scale (1-3) Al Hydroxide/Mg Hydroxide (Magnesium Hydrox/Alum Hydrox 30 Ml Oral.Susp) 30 ml PO Q6H PRN PRN Reason: Heartburn/Nausea Last Admin: 09/29/23 17:33 Dose: 30 ml Atorvastatin Calcium (Atorvastatin Calcium 40 Mg Tablet) 40 mg PO DAILY [facility] Last Admin: 09/30/23 08:37 Dose: 40 mg Benztropine Mesylate (Benztropine Mesylate 0.5 Mg Tablet) 1.5 mg PO BID [facility] Last Admin: 09/30/23 08:35 Dose: 1.5 mg Clonazepam (Clonazepam 0.5 Mg Tablet) 1.5 mg PO BID [facility] Last Admin: 09/30/23 08:36 Dose: 1.5 mg Clozapine (Clozapine 100 Mg Tablet) 300 mg PO BEDTIME [facility] Last Admin: 09/29/23 21:34 Dose: 300 mg Divalproex Sodium (Divalproex Sodium Er 250 Mg Tab.Er.24h) 750 mg PO BID [facility] Last Admin: 09/30/23 08:36 Dose: 750 mg Empagliflozin (Empagliflozin 25 Mg Tablet) 25 mg PO DAILY [facility] Last Admin: 09/30/23 08:37 Dose: 25 mg Gabapentin (Gabapentin 100 Mg Capsule) 100 mg PO TID [facility] Last Admin: 09/30/23 14:57 Dose: 100 mg Gabapentin (Gabapentin 400 Mg Capsule) 800 mg PO TID [facility] Last Admin: 09/30/23 14:57 Dose: 800 mg Hydroxyzine HCl (Hydroxyzine Hcl 25 Mg Tablet) 25 mg PO DAILY PRN PRN Reason: Anxiety Magnesium Hydroxide (Milk Of Magnesia 30 Ml Oral.Susp) 30 ml PO DAILY PRN PRN Reason: Constipation Metformin HCl (Metformin Hcl 1,000 Mg Tablet) 1,000 mg PO BID [facility] Last Admin: 09/30/23 08:37 Dose: 1,000 mg Metoprolol Succinate (Metoprolol Succinate Er 25 Mg Tab.Er.24h) 25 mg PO DAILY [facility]; Protocol Last Admin: 09/30/23 08:36 Dose: 25 mg Mirtazapine (Mirtazapine 7.5 Mg Tablet) 22.5 mg PO BEDTIME [facility] Last Admin: 09/29/23 21:36 Dose: 22.5 mg Quetiapine Fumarate (Quetiapine Fumarate 50 Mg Tablet) 50 mg PO BEDTIME PRN PRN Reason: insomnia Last Admin: 09/29/23 21:34 Dose: 50 mg Quetiapine Fumarate (Quetiapine Fumarate 25 Mg Tablet) 25 mg PO BID PRN PRN Reason: anxiety Sodium Chloride (Sodium Chloride 0.65 % Nasal 44 Ml Sprbtl) 1 spray NOSTRIL-B Q1H PRN PRN Reason: Dryness Trazodone HCl (Trazodone Hcl 100 Mg Tablet) 200 mg PO BEDTIME [facility] Last Admin: 09/29/23 21:34 Dose: 200 mg Allergies Allergies Allergy/AdvReac Type Severity Reaction Status Date / Time haloperidol [From Haldol] Allergy Intermediate Agitated Verified 02/04/21 19:02 lithium Allergy Intermediate Agitated Verified 02/04/21 19:02 oxcarbazepine Allergy Unknown RASH Verified 02/04/21 19:02 [From TRILEPTAL] fluphenazine [From Prolixin] Allergy akathisia Verified 12/09/21 11:48 Assessment & Plan Assessment & Plan (1) Schizoaffective disorder: Status: Acute Code(s): F25.9 - Schizoaffective disorder, unspecified (2) Acute anxiety: Status: Acute Code(s): F41.9 - Anxiety disorder, unspecified Plan 47 yo male, hx of schizoaffective disorder, reports an increase in anxiety and restlessness. 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 09/25: no changes for now 09/26: no changes 09/28/23: Valproate, Clozapine levels Increase Remeron to 22.5 mg HS to address anxiety Seroquel 25 mg bid prn to address anxiety, restlessness 09/29/23: Continue treatment 09/30/23: PT consult for gait as OP team expressed concern for this sx. Patient educated on: therapeutic strategies Informed Consent: understands and further education needed Reason for continued inpatient stay Substantial Risk for: med/psych decompensation Time Spent With Patient Time: Total time managing care of this patient today ____ minutes.
[2023-09-30 21:38] LABS: Glucose, Whole Blood 151 mg/dL (60-115)
[2023-09-30] MEDS: QUEtiapine Fumarate 50 MG TABLET PO (22:00)
[2023-09-30] MEDS: traZODone HCL 100 MG TABLET 200 MG PO (22:01)
[2023-09-30] MEDS: Mirtazapine 7.5 MG TABLET 22.5 MG PO (22:01)
[2023-09-30] MEDS: cloZAPine 100 MG TABLET 300 MG PO (22:01)
[2023-10-01 08:01] VITALS: BP 113/64; PULSE 83; RESP 16; TEMP 36.5; O2SAT 98
[2023-10-01 08:41] LABS: Glucose, Whole Blood 93 mg/dL (60-115)
[2023-10-01] MEDS: Gabapentin 400 MG CAPSULE 800 MG PO ×3 (08:46→22:16)
[2023-10-01] MEDS: Benztropine Mesylate 0.5 MG TABLET 1.5 MG PO ×2 (08:46→22:20)
[2023-10-01] MEDS: metFORMIN HCl 1,000 MG TABLET 1000 MG PO ×2 (08:46→22:16)
[2023-10-01] MEDS: Empagliflozin 25 MG TABLET PO (08:47)
[2023-10-01] MEDS: clonazePAM 0.5 MG TABLET 1.5 MG PO ×2 (08:47→22:17)
[2023-10-01] MEDS: Atorvastatin Calcium 40 MG TABLET PO (08:47)
[2023-10-01] MEDS: Metoprolol Succinate ER 25 MG TAB.ER.24H PO (08:47)
[2023-10-01] MEDS: Gabapentin 100 MG CAPSULE PO ×3 (08:47→22:17)
[2023-10-01] MEDS: Divalproex Sodium ER 250 MG TAB.ER.24H 750 MG PO ×2 (08:53→22:19)
--- NOTE | 2023-10-01 09:58 | HO.PSYCHPN ---
Subjective Subjective Date of Service: 10/01/23 Reason For Visit: Schizoaffective Disorder Subjective Notes: Conditional Voluntary Healthcare Proxy: No Guardianship: No Medical Problems Affecting Mental Status: No Interim History: Reports cough, sore throat. Comfort meds given. Testing for flu/COVID/RSV pending. Resting/Napping this afternoon. Awake to attend groups Physically not feeling well today with URI sx. Medication Compliance: Yes Side effects from medications: No Attending Groups: Yes Review of Systems Acute medical concerns: No Medical Review of Systems: unchanged Review of Systems Review of Systems URI sx. Mental Status Exam Mental Status Exam Patient Appearance: Appropriate Patient Orientation: Person, Place, Time and Situation Level of Consciousness: Alert Patient Behavior: Talkative and Good Eye Contact Mood Description: Flat Affect Description: Flat Patient Cognition Impaired: No Ability to Follow Directions: Good Speech Pattern: Spontaneous Speech Memory Description: Episodic Impaired Hallucinations: None Delusions: Paranoid Ideation Thought Process: Rumination Depressive Symptoms: Increased Anxiety Abnormal Motor Activity Signs and Symptoms: Restlessness Judgement: Fair Diagnostics Vital Signs (24Hr): Vital Signs - 24 hr 09/30/23 16:16 10/01/23 08:01 Temperature 98.2 F 97.7 F Pulse Rate 117 H 83 Respiratory Rate 18 16 Blood Pressure 130/74 113/64 Pulse Oximetry 97 98 Oxygen Delivery Method Room Air Room Air BMI result Body Mass Index 32.9 Labs 09/22/23 14:32 09/29/23 08:28 Labs: Laboratory Results - last 48 hr 09/29/23 09/30/23 09/30/23 21:27 08:19 21:33 POC Glucose 195 H 118 H 151 H 10/01/23 08:37 POC Glucose 93 Medications Medications Current Medications Acetaminophen (Acetaminophen 325 Mg Tablet) 650 mg PO Q6H PRN PRN Reason: Headache/Pain Mild Scale (1-3) Al Hydroxide/Mg Hydroxide (Magnesium Hydrox/Alum Hydrox 30 Ml Oral.Susp) 30 ml PO Q6H PRN PRN Reason: Heartburn/Nausea Last Admin: 09/29/23 17:33 Dose: 30 ml Atorvastatin Calcium (Atorvastatin Calcium 40 Mg Tablet) 40 mg PO DAILY [facility] Last Admin: 10/01/23 08:47 Dose: 40 mg Benztropine Mesylate (Benztropine Mesylate 0.5 Mg Tablet) 1.5 mg PO BID [facility] Last Admin: 10/01/23 08:46 Dose: 1.5 mg Clonazepam (Clonazepam 0.5 Mg Tablet) 1.5 mg PO BID [facility] Last Admin: 10/01/23 08:47 Dose: 1.5 mg Clozapine (Clozapine 100 Mg Tablet) 300 mg PO BEDTIME [facility] Last Admin: 09/30/23 22:01 Dose: 300 mg Divalproex Sodium (Divalproex Sodium Er 250 Mg Tab.Er.24h) 750 mg PO BID [facility] Last Admin: 10/01/23 08:53 Dose: 750 mg Empagliflozin (Empagliflozin 25 Mg Tablet) 25 mg PO DAILY [facility] Last Admin: 10/01/23 08:47 Dose: 25 mg Gabapentin (Gabapentin 100 Mg Capsule) 100 mg PO TID [facility] Last Admin: 10/01/23 08:47 Dose: 100 mg Gabapentin (Gabapentin 400 Mg Capsule) 800 mg PO TID [facility] Last Admin: 10/01/23 08:46 Dose: 800 mg Hydroxyzine HCl (Hydroxyzine Hcl 25 Mg Tablet) 25 mg PO DAILY PRN PRN Reason: Anxiety Magnesium Hydroxide (Milk Of Magnesia 30 Ml Oral.Susp) 30 ml PO DAILY PRN PRN Reason: Constipation Metformin HCl (Metformin Hcl 1,000 Mg Tablet) 1,000 mg PO BID [facility] Last Admin: 10/01/23 08:46 Dose: 1,000 mg Metoprolol Succinate (Metoprolol Succinate Er 25 Mg Tab.Er.24h) 25 mg PO DAILY [facility]; Protocol Last Admin: 10/01/23 08:47 Dose: 25 mg Mirtazapine (Mirtazapine 7.5 Mg Tablet) 22.5 mg PO BEDTIME [facility] Last Admin: 09/30/23 22:01 Dose: 22.5 mg Quetiapine Fumarate (Quetiapine Fumarate 50 Mg Tablet) 50 mg PO BEDTIME PRN PRN Reason: insomnia Last Admin: 09/30/23 22:00 Dose: 50 mg Quetiapine Fumarate (Quetiapine Fumarate 25 Mg Tablet) 25 mg PO BID PRN PRN Reason: anxiety Sodium Chloride (Sodium Chloride 0.65 % Nasal 44 Ml Sprbtl) 1 spray NOSTRIL-B Q1H PRN PRN Reason: Dryness Trazodone HCl (Trazodone Hcl 100 Mg Tablet) 200 mg PO BEDTIME [facility] Last Admin: 09/30/23 22:01 Dose: 200 mg Allergies Allergies Allergy/AdvReac Type Severity Reaction Status Date / Time haloperidol [From Haldol] Allergy Intermediate Agitated Verified 02/04/21 19:02 lithium Allergy Intermediate Agitated Verified 02/04/21 19:02 oxcarbazepine Allergy Unknown RASH Verified 02/04/21 19:02 [From TRILEPTAL] fluphenazine [From Prolixin] Allergy akathisia Verified 12/09/21 11:48 Assessment & Plan Assessment & Plan (1) Schizoaffective disorder: Status: Acute Code(s): F25.9 - Schizoaffective disorder, unspecified (2) Acute anxiety: Status: Acute Code(s): F41.9 - Anxiety disorder, unspecified Plan 47 yo male, hx of schizoaffective disorder, reports an increase in anxiety and restlessness. 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 09/25: no changes for now 09/26: no changes 09/28/23: Valproate, Clozapine levels Increase Remeron to 22.5 mg HS to address anxiety Seroquel 25 mg bid prn to address anxiety, restlessness 09/29/23: Continue treatment 09/30/23: PT consult for gait as OP team expressed concern for this sx. 10/01/23: Continue tx. Informed Consent: understands and further education needed Reason for continued inpatient stay Substantial Risk for: rapid decompensation Time Spent With Patient Time: Total time managing care of this patient today ____ minutes.
--- NOTE | 2023-10-01 10:05 | PC.NURSE ---
during morning med pass pt was noted to have tremulous hands to which he reports I'm fine . Pt would not answer when asked how long his hands have been shaking. Provider notified.
[2023-10-01 10:40] VITALS: BP 113/64; PULSE 83; O2SAT 98
[2023-10-01] MEDS: guaiFENesin 100 MG/5 ML LIQUID PO (11:17)
[2023-10-01 12:12] LABS: COVID-19 Test Negative (Negative); IDNOW Serial# 08D9AD1C
[2023-10-01] MEDS: QUEtiapine Fumarate 25 MG TABLET PO (14:53)
[2023-10-01 18:00] VITALS: BP 121/64; PULSE 106; RESP 18; TEMP 36.4; O2SAT 100
[2023-10-01] MEDS: traZODone HCL 100 MG TABLET 200 MG PO (22:16)
[2023-10-01] MEDS: Mirtazapine 7.5 MG TABLET 22.5 MG PO (22:18)
[2023-10-01] MEDS: QUEtiapine Fumarate 50 MG TABLET PO (22:19)
[2023-10-01] MEDS: cloZAPine 100 MG TABLET 300 MG PO (22:20)
[2023-10-01 22:32] LABS: Glucose, Whole Blood 151 mg/dL (60-115)
[2023-10-02 08:36] VITALS: BP 117/67; PULSE 83; RESP 16; TEMP 36; O2SAT 95
[2023-10-02 08:45] LABS: Glucose, Whole Blood 104 mg/dL (60-115)
[2023-10-02] MEDS: Gabapentin 400 MG CAPSULE 800 MG PO ×3 (09:10→21:56)
[2023-10-02] MEDS: Benztropine Mesylate 0.5 MG TABLET 1.5 MG PO ×2 (09:10→21:56)
[2023-10-02] MEDS: Metoprolol Succinate ER 25 MG TAB.ER.24H PO (09:11)
[2023-10-02] MEDS: Gabapentin 100 MG CAPSULE PO ×3 (09:11→21:57)
[2023-10-02] MEDS: Empagliflozin 25 MG TABLET PO (09:11)
[2023-10-02] MEDS: Atorvastatin Calcium 40 MG TABLET PO (09:11)
[2023-10-02] MEDS: metFORMIN HCl 1,000 MG TABLET 1000 MG PO ×2 (09:11→21:57)
[2023-10-02] MEDS: clonazePAM 0.5 MG TABLET 1.5 MG PO ×2 (09:11→21:56)
[2023-10-02] MEDS: Divalproex Sodium ER 250 MG TAB.ER.24H 750 MG PO ×2 (09:11→21:56)
[2023-10-02] MEDS: QUEtiapine Fumarate 25 MG TABLET PO (09:34)
--- NOTE | 2023-10-02 10:30 | HO.PSYCHPN ---
Subjective Subjective Date of Service: 10/02/23 Reason For Visit: Schizoaffective Disorder Subjective Notes: Conditional Voluntary Healthcare Proxy: No Guardianship: No Medical Problems Affecting Mental Status: No Interim History: Pt sedate, in bed this a.m. Denies sx of concern, reports feeling well, afternoons are better than mornings. Anticipating unit alliance party on 10/03 for [facility]. Denies URI sx Discussed the difficult time he has had standing and walking for long periods of time. Review of PT eval with pt and outcome-muscle weakness, deconditioning, impaired gait, hygiene, safety, transfer. Recommends OP PT for strengthening and to maximize safety and functional mobility upon discharge. Pt to consider. Team monitoring incontinence. Pt reported this had occurred only once which is inaccurate. Urology consult ordered. Medication Compliance: Yes Side effects from medications: No Attending Groups: Yes Review of Systems Acute medical concerns: No Medical Review of Systems: unchanged Review of Systems Review of Systems Yes all other systems are reviewed and are negative (denies) Mental Status Exam Mental Status Exam Patient Appearance: Appropriate Patient Orientation: Person, Place, Time and Situation Level of Consciousness: Alert Patient Behavior: Talkative and Good Eye Contact Mood Description: Flat Affect Description: Flat Patient Cognition Impaired: No Ability to Follow Directions: Good Speech Pattern: Spontaneous Speech Memory Description: Episodic Impaired Hallucinations: None Delusions: Paranoid Ideation Thought Process: Rumination Depressive Symptoms: Increased Anxiety Abnormal Motor Activity Signs and Symptoms: Restlessness Judgement: Fair Diagnostics Vital Signs (24Hr): Vital Signs - 24 hr 10/01/23 10:40 10/01/23 18:00 10/02/23 08:36 Temperature 97.6 F 96.8 F Pulse Rate 83 106 H 83 Respiratory Rate 18 16 Blood Pressure 113/64 121/64 117/67 Pulse Oximetry 98 100 95 Oxygen Delivery Method Room Air Room Air BMI result Body Mass Index 32.9 Labs 09/22/23 14:32 09/29/23 08:28 Labs: Laboratory Results - last 48 hr 09/30/23 10/01/23 10/01/23 21:33 08:37 11:29 POC Glucose 151 H 93 COVID-19 (LINDA) Negative COVID-19 Clin Com See Note 10/01/23 10/02/23 22:27 08:35 POC Glucose 151 H 104 COVID-19 (LINDA) COVID-19 Clin Com Medications Medications Current Medications Acetaminophen (Acetaminophen 325 Mg Tablet) 650 mg PO Q6H PRN PRN Reason: Headache/Pain Mild Scale (1-3) Al Hydroxide/Mg Hydroxide (Magnesium Hydrox/Alum Hydrox 30 Ml Oral.Susp) 30 ml PO Q6H PRN PRN Reason: Heartburn/Nausea Last Admin: 09/29/23 17:33 Dose: 30 ml Atorvastatin Calcium (Atorvastatin Calcium 40 Mg Tablet) 40 mg PO DAILY [facility] Last Admin: 10/02/23 09:11 Dose: 40 mg Benzocaine (Throat Lozenge, Medicated Lozenge) 1 lozenge MUCOUS MEM Q2H PRN PRN Reason: Sore Throat Benztropine Mesylate (Benztropine Mesylate 0.5 Mg Tablet) 1.5 mg PO BID [facility] Last Admin: 10/02/23 09:10 Dose: 1.5 mg Clonazepam (Clonazepam 0.5 Mg Tablet) 1.5 mg PO BID [facility] Last Admin: 10/02/23 09:11 Dose: 1.5 mg Clozapine (Clozapine 100 Mg Tablet) 300 mg PO BEDTIME [facility] Last Admin: 10/01/23 22:20 Dose: 300 mg Divalproex Sodium (Divalproex Sodium Er 250 Mg Tab.Er.24h) 750 mg PO BID [facility] Last Admin: 10/02/23 09:11 Dose: 750 mg Empagliflozin (Empagliflozin 25 Mg Tablet) 25 mg PO DAILY [facility] Last Admin: 10/02/23 09:11 Dose: 25 mg Gabapentin (Gabapentin 100 Mg Capsule) 100 mg PO TID [facility] Last Admin: 10/02/23 09:11 Dose: 100 mg Gabapentin (Gabapentin 400 Mg Capsule) 800 mg PO TID [facility] Last Admin: 10/02/23 09:10 Dose: 800 mg Guaifenesin (Guaifenesin 100 Mg/5 Ml Liquid) 5 ml PO Q4H PRN PRN Reason: Cough Last Admin: 10/01/23 11:17 Dose: 5 ml Hydroxyzine HCl (Hydroxyzine Hcl 25 Mg Tablet) 25 mg PO DAILY PRN PRN Reason: Anxiety Magnesium Hydroxide (Milk Of Magnesia 30 Ml Oral.Susp) 30 ml PO DAILY PRN PRN Reason: Constipation Metformin HCl (Metformin Hcl 1,000 Mg Tablet) 1,000 mg PO BID [facility] Last Admin: 10/02/23 09:11 Dose: 1,000 mg Metoprolol Succinate (Metoprolol Succinate Er 25 Mg Tab.Er.24h) 25 mg PO DAILY [facility]; Protocol Last Admin: 10/02/23 09:11 Dose: 25 mg Mirtazapine (Mirtazapine 7.5 Mg Tablet) 22.5 mg PO BEDTIME [facility] Last Admin: 10/01/23 22:18 Dose: 22.5 mg Quetiapine Fumarate (Quetiapine Fumarate 50 Mg Tablet) 50 mg PO BEDTIME PRN PRN Reason: insomnia Last Admin: 10/01/23 22:19 Dose: 50 mg Quetiapine Fumarate (Quetiapine Fumarate 25 Mg Tablet) 25 mg PO BID PRN PRN Reason: anxiety Last Admin: 10/02/23 09:34 Dose: 25 mg Sodium Chloride (Sodium Chloride 0.65 % Nasal 44 Ml Sprbtl) 1 spray NOSTRIL-B Q1H PRN PRN Reason: Dryness Trazodone HCl (Trazodone Hcl 100 Mg Tablet) 200 mg PO BEDTIME [facility] Last Admin: 10/01/23 22:16 Dose: 200 mg Allergies Allergies Allergy/AdvReac Type Severity Reaction Status Date / Time haloperidol [From Haldol] Allergy Intermediate Agitated Verified 02/04/21 19:02 lithium Allergy Intermediate Agitated Verified 02/04/21 19:02 oxcarbazepine Allergy Unknown RASH Verified 02/04/21 19:02 [From TRILEPTAL] fluphenazine [From Prolixin] Allergy akathisia Verified 12/09/21 11:48 Assessment & Plan Assessment & Plan (1) Schizoaffective disorder: Status: Acute Code(s): F25.9 - Schizoaffective disorder, unspecified (2) Acute anxiety: Status: Acute Code(s): F41.9 - Anxiety disorder, unspecified Plan 47 yo male, hx of schizoaffective disorder, reports an increase in anxiety and restlessness. Also reports stopping medicines ~2 days [employer] A[employer]LY[employer]. 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 2/3: no changes for now 2/4: no changes 09/28/23: Valproate, Clozapine levels Increase Remeron to 22.5 mg HS to address anxiety Seroquel 25 mg bid prn to address anxiety, restlessness 09/29/23: Continue treatment 09/30/23: PT consult for gait as OP team expressed concern for this sx. 10/01/23: Continue tx. 10/02/23: Urology consult-urinary incontinence PT upon discharge Continue current regime. Patient educated on: medication risk/benefits, therapeutic strategies and medical condition Informed Consent: further education needed Reason for continued inpatient stay Substantial Risk for: rapid decompensation and med/psych decompensation Time Spent With Patient Time: Total time managing care of this patient today ____ minutes.
[2023-10-02 16:54] VITALS: BP 117/62; PULSE 100; RESP 18; TEMP 36.2; O2SAT 93
[2023-10-02 21:19] LABS: Glucose, Whole Blood 229 mg/dL (60-115)
[2023-10-02] MEDS: cloZAPine 100 MG TABLET 300 MG PO (21:55)
[2023-10-02] MEDS: Mirtazapine 7.5 MG TABLET 22.5 MG PO (21:56)
[2023-10-02] MEDS: QUEtiapine Fumarate 50 MG TABLET PO (21:56)
[2023-10-02] MEDS: traZODone HCL 100 MG TABLET 200 MG PO (21:56)
[2023-10-03 08:30] VITALS: BP 148/85; PULSE 88; RESP 16; TEMP 36; O2SAT 96
[2023-10-03] MEDS: clonazePAM 0.5 MG TABLET 1.5 MG PO ×2 (08:43→22:04)
[2023-10-03] MEDS: Metoprolol Succinate ER 25 MG TAB.ER.24H PO (08:43)
[2023-10-03] MEDS: Gabapentin 400 MG CAPSULE 800 MG PO ×3 (08:43→22:06)
[2023-10-03] MEDS: Gabapentin 100 MG CAPSULE PO ×3 (08:43→22:06)
[2023-10-03] MEDS: Atorvastatin Calcium 40 MG TABLET PO (08:43)
[2023-10-03] MEDS: Empagliflozin 25 MG TABLET PO (08:43)
[2023-10-03] MEDS: Divalproex Sodium ER 250 MG TAB.ER.24H 750 MG PO ×2 (08:43→22:05)
[2023-10-03] MEDS: metFORMIN HCl 1,000 MG TABLET 1000 MG PO ×2 (08:43→22:05)
[2023-10-03] MEDS: Benztropine Mesylate 0.5 MG TABLET 1.5 MG PO ×2 (08:44→22:06)
[2023-10-03 08:46] LABS: Glucose, Whole Blood 104 mg/dL (60-115)
[2023-10-03] MEDS: QUEtiapine Fumarate 25 MG TABLET PO (08:51)
[2023-10-03 14:39] LABS: Clozapine (Clozaril) 526 mcg/L; Norclozapine 211 mcg/L (25-400)
[2023-10-03 18:00] VITALS: BP 110/65; PULSE 103; RESP 17; TEMP 36.2; O2SAT 98
[2023-10-03] MEDS: Mirtazapine 7.5 MG TABLET 22.5 MG PO (22:04)
[2023-10-03] MEDS: cloZAPine 100 MG TABLET 300 MG PO (22:05)
[2023-10-03] MEDS: traZODone HCL 100 MG TABLET 200 MG PO (22:06)
[2023-10-03] MEDS: QUEtiapine Fumarate 50 MG TABLET PO (22:07)
[2023-10-03 22:36] LABS: Glucose, Whole Blood 227 mg/dL (60-115)
[2023-10-04 08:00] VITALS: BP 136/59; PULSE 90; RESP 16; TEMP 36.1; O2SAT 94
[2023-10-04 08:19] LABS: Glucose, Whole Blood 107 mg/dL (60-115)
[2023-10-04] MEDS: Benztropine Mesylate 0.5 MG TABLET 1.5 MG PO ×2 (08:42→20:36)
[2023-10-04] MEDS: metFORMIN HCl 1,000 MG TABLET 1000 MG PO ×2 (08:43→20:36)
[2023-10-04] MEDS: Gabapentin 400 MG CAPSULE 800 MG PO ×3 (08:43→20:37)
[2023-10-04] MEDS: QUEtiapine Fumarate 25 MG TABLET PO (08:43)
[2023-10-04] MEDS: Metoprolol Succinate ER 25 MG TAB.ER.24H PO (08:44)
[2023-10-04] MEDS: Divalproex Sodium ER 250 MG TAB.ER.24H 750 MG PO ×2 (08:44→20:37)
[2023-10-04] MEDS: Atorvastatin Calcium 40 MG TABLET PO (08:44)
[2023-10-04] MEDS: Empagliflozin 25 MG TABLET PO (08:44)
[2023-10-04] MEDS: Gabapentin 100 MG CAPSULE PO ×3 (08:44→20:38)
[2023-10-04] MEDS: clonazePAM 0.5 MG TABLET 1.5 MG PO ×2 (08:45→20:36)
--- NOTE | 2023-10-04 09:25 | HO.PSYCHPN ---
Subjective Subjective Date of Service: 10/04/23 Reason For Visit: Schizoaffective Disorder Interim History: met with patient; discussed with team; reviewed chart feels good about med changes made thus far and thinks they can remain the way they are for now overall feels more relaxed, less anxiety and feeling much less restless since admission Mental Status Exam Mental Status Exam Patient Appearance: Appropriate Patient Orientation: Person, Place, Time and Situation Level of Consciousness: Alert Patient Behavior: Talkative and Good Eye Contact Mood Description: Flat Affect Description: Flat Patient Cognition Impaired: No Ability to Follow Directions: Good Speech Pattern: Spontaneous Speech Memory Description: Episodic Impaired Hallucinations: None Delusions: Paranoid Ideation Thought Process: Rumination Depressive Symptoms: Increased Anxiety Abnormal Motor Activity Signs and Symptoms: Restlessness Judgement: Fair Diagnostics Vital Signs (24Hr): Vital Signs - 24 hr 10/03/23 18:00 10/04/23 08:00 Temperature 97.2 F 97 F Pulse Rate 103 H 90 Respiratory Rate 17 16 Blood Pressure 110/65 136/59 L Pulse Oximetry 98 94 Oxygen Delivery Method Room Air Room Air BMI result Body Mass Index 32.9 Labs 09/22/23 14:32 09/29/23 08:28 Labs: Laboratory Results - last 48 hr 09/29/23 10/02/23 10/03/23 08:28 21:14 08:24 POC Glucose 229 H 104 Clozapine 526 Norclozapine 211 10/03/23 10/04/23 22:01 08:15 POC Glucose 227 H 107 Clozapine Norclozapine Medications Medications Current Medications Acetaminophen (Acetaminophen 325 Mg Tablet) 650 mg PO Q6H PRN PRN Reason: Headache/Pain Mild Scale (1-3) Al Hydroxide/Mg Hydroxide (Magnesium Hydrox/Alum Hydrox 30 Ml Oral.Susp) 30 ml PO Q6H PRN PRN Reason: Heartburn/Nausea Last Admin: 09/29/23 17:33 Dose: 30 ml Atorvastatin Calcium (Atorvastatin Calcium 40 Mg Tablet) 40 mg PO DAILY [facility] Last Admin: 10/04/23 08:44 Dose: 40 mg Benzocaine (Throat Lozenge, Medicated Lozenge) 1 lozenge MUCOUS MEM Q2H PRN PRN Reason: Sore Throat Benztropine Mesylate (Benztropine Mesylate 0.5 Mg Tablet) 1.5 mg PO BID [facility] Last Admin: 10/04/23 08:42 Dose: 1.5 mg Clonazepam (Clonazepam 0.5 Mg Tablet) 1.5 mg PO BID [facility] Last Admin: 10/04/23 08:45 Dose: 1.5 mg Clozapine (Clozapine 100 Mg Tablet) 300 mg PO BEDTIME [facility] Last Admin: 10/03/23 22:05 Dose: 300 mg Divalproex Sodium (Divalproex Sodium Er 250 Mg Tab.Er.24h) 750 mg PO BID [facility] Last Admin: 10/04/23 08:44 Dose: 750 mg Empagliflozin (Empagliflozin 25 Mg Tablet) 25 mg PO DAILY [facility] Last Admin: 10/04/23 08:44 Dose: 25 mg Gabapentin (Gabapentin 100 Mg Capsule) 100 mg PO TID [facility] Last Admin: 10/04/23 08:44 Dose: 100 mg Gabapentin (Gabapentin 400 Mg Capsule) 800 mg PO TID [facility] Last Admin: 10/04/23 08:43 Dose: 800 mg Guaifenesin (Guaifenesin 100 Mg/5 Ml Liquid) 5 ml PO Q4H PRN PRN Reason: Cough Last Admin: 10/01/23 11:17 Dose: 5 ml Hydroxyzine HCl (Hydroxyzine Hcl 25 Mg Tablet) 25 mg PO DAILY PRN PRN Reason: Anxiety Magnesium Hydroxide (Milk Of Magnesia 30 Ml Oral.Susp) 30 ml PO DAILY PRN PRN Reason: Constipation Metformin HCl (Metformin Hcl 1,000 Mg Tablet) 1,000 mg PO BID [facility] Last Admin: 10/04/23 08:43 Dose: 1,000 mg Metoprolol Succinate (Metoprolol Succinate Er 25 Mg Tab.Er.24h) 25 mg PO DAILY [facility]; Protocol Last Admin: 10/04/23 08:44 Dose: 25 mg Mirtazapine (Mirtazapine 7.5 Mg Tablet) 22.5 mg PO BEDTIME [facility] Last Admin: 10/03/23 22:04 Dose: 22.5 mg Quetiapine Fumarate (Quetiapine Fumarate 50 Mg Tablet) 50 mg PO BEDTIME PRN PRN Reason: insomnia Last Admin: 10/03/23 22:07 Dose: 50 mg Quetiapine Fumarate (Quetiapine Fumarate 25 Mg Tablet) 25 mg PO BID PRN PRN Reason: anxiety Last Admin: 10/04/23 08:43 Dose: 25 mg Sodium Chloride (Sodium Chloride 0.65 % Nasal 44 Ml Sprbtl) 1 spray NOSTRIL-B Q1H PRN PRN Reason: Dryness Trazodone HCl (Trazodone Hcl 100 Mg Tablet) 200 mg PO BEDTIME [facility] Last Admin: 10/03/23 22:06 Dose: 200 mg Allergies Allergies Allergy/AdvReac Type Severity Reaction Status Date / Time haloperidol [From Haldol] Allergy Intermediate Agitated Verified 02/04/21 19:02 lithium Allergy Intermediate Agitated Verified 02/04/21 19:02 oxcarbazepine Allergy Unknown RASH Verified 02/04/21 19:02 [From TRILEPTAL] fluphenazine [From Prolixin] Allergy akathisia Verified 12/09/21 11:48 Assessment & Plan Assessment & Plan (1) Schizoaffective disorder: Status: Acute Code(s): F25.9 - Schizoaffective disorder, unspecified (2) Acute anxiety: Status: Acute Code(s): F41.9 - Anxiety disorder, unspecified Plan 47 yo male, hx of schizoaffective disorder, reports an increase in anxiety and restlessness. Also reports stopping medicines ~2 days [employer]. 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 09/25: no changes for now 09/26: no changes 09/28/23: Valproate, Clozapine levels Increase Remeron to 22.5 mg HS to address anxiety Seroquel 25 mg bid prn to address anxiety, restlessness 09/29/23: Continue treatment 09/30/23: PT consult for gait as OP team expressed concern for this sx. 10/01/23: Continue tx. 10/02/23: Urology consult-urinary incontinence PT upon discharge Continue current regime. 10/04 feels good about med changes made thus far and thinks they can remain the way they are for now overall feels more relaxed, less anxiety and feeling much less restless since admission; ambivalent about if ready for discharge. Patient educated on: diagnosis and medication risk/benefits Informed Consent: understands Reason for continued inpatient stay Substantial Risk for: rapid decompensation Time Spent With Patient Time: Total time managing care of this patient today ____ minutes.
--- NOTE | 2023-10-04 10:21 | P.PNPSI_ITS ---
Subjective Subjective Date of Service: 10/03/23 Reason For Visit: Schizoaffective Disorder Subjective Notes: Conditional Voluntary Healthcare Proxy: No Guardianship: No Medical Problems Affecting Mental Status: No Interim History: Met with pt, reviewed with the team. Pt reports improvement. We discussed PT recommendations, order for urology consult (expresses anxiety about this, yet understands consult will help with sx mgt). Reports sleep has improved. Overall depressive/anxious sx are 6-7. Discussed his love of music and looking forward to the football game this evening. Reports benefit from psych groups. Medication Compliance: Yes Side effects from medications: No Attending Groups: Yes Review of Systems Acute medical concerns: No Medical Review of Systems: unchanged Review of Systems Review of Systems Yes all other systems are reviewed and are negative Mental Status Exam Mental Status Exam Patient Appearance: Appropriate Patient Orientation: Person, Place, Time and Situation Level of Consciousness: Alert Patient Behavior: Talkative and Good Eye Contact Mood Description: Flat Affect Description: Flat Patient Cognition Impaired: No Ability to Follow Directions: Good Speech Pattern: Spontaneous Speech Memory Description: Episodic Impaired Hallucinations: None Delusions: Paranoid Ideation Thought Process: Rumination Depressive Symptoms: Increased Anxiety Abnormal Motor Activity Signs and Symptoms: Restlessness Judgement: Fair Diagnostics Vital Signs (24Hr): Vital Signs - 24 hr 10/03/23 18:00 10/04/23 08:00 Temperature 97.2 F 97 F Pulse Rate 103 H 90 Respiratory Rate 17 16 Blood Pressure 110/65 136/59 L Pulse Oximetry 98 94 Oxygen Delivery Method Room Air Room Air BMI result Body Mass Index 32.9 Labs 09/22/23 14:32 09/29/23 08:28 Labs: Laboratory Results - last 48 hr 09/29/23 10/02/23 10/03/23 08:28 21:14 08:24 POC Glucose 229 H 104 Clozapine 526 Norclozapine 211 10/03/23 10/04/23 22:01 08:15 POC Glucose 227 H 107 Clozapine Norclozapine Medications Medications Current Medications Acetaminophen (Acetaminophen 325 Mg Tablet) 650 mg PO Q6H PRN PRN Reason: Headache/Pain Mild Scale (1-3) Al Hydroxide/Mg Hydroxide (Magnesium Hydrox/Alum Hydrox 30 Ml Oral.Susp) 30 ml PO Q6H PRN PRN Reason: Heartburn/Nausea Last Admin: 09/29/23 17:33 Dose: 30 ml Atorvastatin Calcium (Atorvastatin Calcium 40 Mg Tablet) 40 mg PO DAILY [facility] Last Admin: 10/04/23 08:44 Dose: 40 mg Benzocaine (Throat Lozenge, Medicated Lozenge) 1 lozenge MUCOUS MEM Q2H PRN PRN Reason: Sore Throat Benztropine Mesylate (Benztropine Mesylate 0.5 Mg Tablet) 1.5 mg PO BID [facility] Last Admin: 10/04/23 08:42 Dose: 1.5 mg Clonazepam (Clonazepam 0.5 Mg Tablet) 1.5 mg PO BID [facility] Last Admin: 10/04/23 08:45 Dose: 1.5 mg Clozapine (Clozapine 100 Mg Tablet) 300 mg PO BEDTIME [facility] Last Admin: 10/03/23 22:05 Dose: 300 mg Divalproex Sodium (Divalproex Sodium Er 250 Mg Tab.Er.24h) 750 mg PO BID [facility] Last Admin: 10/04/23 08:44 Dose: 750 mg Empagliflozin (Empagliflozin 25 Mg Tablet) 25 mg PO DAILY [facility] Last Admin: 10/04/23 08:44 Dose: 25 mg Gabapentin (Gabapentin 100 Mg Capsule) 100 mg PO TID [facility] Last Admin: 10/04/23 08:44 Dose: 100 mg Gabapentin (Gabapentin 400 Mg Capsule) 800 mg PO TID [facility] Last Admin: 10/04/23 08:43 Dose: 800 mg Guaifenesin (Guaifenesin 100 Mg/5 Ml Liquid) 5 ml PO Q4H PRN PRN Reason: Cough Last Admin: 10/01/23 11:17 Dose: 5 ml Hydroxyzine HCl (Hydroxyzine Hcl 25 Mg Tablet) 25 mg PO DAILY PRN PRN Reason: Anxiety Magnesium Hydroxide (Milk Of Magnesia 30 Ml Oral.Susp) 30 ml PO DAILY PRN PRN Reason: Constipation Metformin HCl (Metformin Hcl 1,000 Mg Tablet) 1,000 mg PO BID [facility] Last Admin: 10/04/23 08:43 Dose: 1,000 mg Metoprolol Succinate (Metoprolol Succinate Er 25 Mg Tab.Er.24h) 25 mg PO DAILY [facility]; Protocol Last Admin: 10/04/23 08:44 Dose: 25 mg Mirtazapine (Mirtazapine 7.5 Mg Tablet) 22.5 mg PO BEDTIME [facility] Last Admin: 10/03/23 22:04 Dose: 22.5 mg Quetiapine Fumarate (Quetiapine Fumarate 50 Mg Tablet) 50 mg PO BEDTIME PRN PRN Reason: insomnia Last Admin: 10/03/23 22:07 Dose: 50 mg Quetiapine Fumarate (Quetiapine Fumarate 25 Mg Tablet) 25 mg PO BID PRN PRN Reason: anxiety Last Admin: 10/04/23 08:43 Dose: 25 mg Sodium Chloride (Sodium Chloride 0.65 % Nasal 44 Ml Sprbtl) 1 spray NOSTRIL-B Q1H PRN PRN Reason: Dryness Trazodone HCl (Trazodone Hcl 100 Mg Tablet) 200 mg PO BEDTIME [facility] Last Admin: 10/03/23 22:06 Dose: 200 mg Allergies Allergies Allergy/AdvReac Type Severity Reaction Status Date / Time haloperidol [From Haldol] Allergy Intermediate Agitated Verified 02/04/21 19:02 lithium Allergy Intermediate Agitated Verified 02/04/21 19:02 oxcarbazepine Allergy Unknown RASH Verified 02/04/21 19:02 [From TRILEPTAL] fluphenazine [From Prolixin] Allergy akathisia Verified 12/09/21 11:48 Assessment & Plan Assessment & Plan (1) Schizoaffective disorder: Status: Acute Code(s): F25.9 - Schizoaffective disorder, unspecified (2) Acute anxiety: Status: Acute Code(s): F41.9 - Anxiety disorder, unspecified Plan 47 yo male, hx of schizoaffective disorder, reports an increase in anxiety and restlessness. Also reports stopping medicines ~2 days [employer] FAMILY. 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 09/25: no changes for now 09/26: no changes 09/28/23: Valproate, Clozapine levels Increase Remeron to 22.5 mg HS to address anxiety Seroquel 25 mg bid prn to address anxiety, restlessness 09/29/23: Continue treatment 09/30/23: PT consult for gait as OP team expressed concern for this sx. 10/01/23: Continue tx. 10/02/23: Urology consult-urinary incontinence PT upon discharge Continue current regime. 10/03/23: Continue current regime. Patient educated on: medication risk/benefits, therapeutic strategies and medical condition Informed Consent: understands and further education needed Reason for continued inpatient stay Substantial Risk for: rapid decompensation Time Spent With Patient Time: Total time managing care of this patient today ____ minutes.
[2023-10-04 18:00] VITALS: BP 125/66; PULSE 104; RESP 18; TEMP 36.3; O2SAT 97
[2023-10-04] MEDS: cloZAPine 100 MG TABLET 300 MG PO (20:37)
[2023-10-04] MEDS: Mirtazapine 7.5 MG TABLET 22.5 MG PO (20:37)
[2023-10-04] MEDS: traZODone HCL 100 MG TABLET 200 MG PO (20:38)
[2023-10-04 20:57] LABS: Glucose, Whole Blood 243 mg/dL (60-115)
[2023-10-05 08:20] VITALS: BP 114/58; PULSE 88; RESP 18; TEMP 36.1; O2SAT 95
[2023-10-05] MEDS: clonazePAM 0.5 MG TABLET 1.5 MG PO (08:45)
[2023-10-05] MEDS: Atorvastatin Calcium 40 MG TABLET PO (08:45)
[2023-10-05] MEDS: Gabapentin 400 MG CAPSULE 800 MG PO ×3 (08:45→22:24)
[2023-10-05] MEDS: metFORMIN HCl 1,000 MG TABLET 1000 MG PO ×2 (08:46→22:25)
[2023-10-05] MEDS: Divalproex Sodium ER 250 MG TAB.ER.24H 750 MG PO ×2 (08:46→22:25)
[2023-10-05] MEDS: Gabapentin 100 MG CAPSULE PO ×3 (08:46→22:24)
[2023-10-05] MEDS: Empagliflozin 25 MG TABLET PO (08:46)
[2023-10-05] MEDS: Benztropine Mesylate 0.5 MG TABLET 1.5 MG PO ×2 (08:46→22:24)
[2023-10-05] MEDS: Metoprolol Succinate ER 25 MG TAB.ER.24H PO (08:52)
[2023-10-05 08:55] LABS: Glucose, Whole Blood 124 mg/dL (60-115)
[2023-10-05] MEDS: clonazePAM 1 MG TABLET PO ×2 (14:57→22:24)
--- NOTE | 2023-10-05 15:33 | PM.UROCN ---
History of Present Illness Consult details Consult date: 10/05/23 Narrative: Ruddy is a 48 year old male with history of schizophrenia admitted to psych noted to be noncompliant with his meds. Consult called for urinary incontinence In talking with the patient, he denies irritative voiding symptoms, he states he was incontinent of urine a couple nights while asleep. He denies dysuria, or gross hematuria Urine culture 09/22/23--50,000 to 100,000 cfu/ml Review of Systems Review of Systems: Yes all other systems are reviewed and are negative Constitutional: Constitutional: Reports no additional constitutional complaints Eyes: Eyes: Reports no additional eye complaints ENT: Reports system reviewed and no additional complaints, except as documented Cardiovascular: Cardiovascular: Denies dyspnea Respiratory: Respiratory: Denies cough and Denies dyspnea Gastrointestinal: Gastrointestinal: Reports no additional gastrointestinal complaints Musculoskeletal: Musculoskeletal: Reports no additional musculoskeletal complaints Integumentary/Breasts: Skin/Breast: Denies rash and Denies unusual bruising Neurologic: Reports system reviewed and no additional complaints, except as documented Psychiatric: Psychiatric: Reports no additional psychiatric complaints Endocrine: Endocrine: Reports no additional endocrine complaints Hematologic/Lymphatic: Hematologic/Lymphatic: Reports no additional hematologic/lymphatic complaints Allergic/Immunologic: Allergic/Immunologic: Reports no additional allergic/immunologic complaints [facility] Past Medical History Medical History Acute anxiety Schizoaffective disorder Diabetes 1.5, managed as type 2 Social History Social History Household Members: Other Household Members Other:: patient has a room-mate Housing: Apartment Housing Other:: [facility] supported apartment Do you presently have visiting nurse or other home services: Yes Alcohol intake: former Patient Tobacco Use Status: Never used Tobacco Smoked in Last 30 Days: No Patient Interested in Nicotine Replacement: No Use of substances other than those prescribed or required for medical reasons: No Currently Displaying Signs/Symptoms of Drug Intoxication Withdrawal: No Have you been hit, kicked, punched, or otherwise hurt by someone within the past year? If so, by whom?: No Do you feel safe in your current relationship?: Yes Is there a partner from a previous relationship who is making you feel unsafe now?: No Are you made to feel afraid or neglected: No Advance Directives: No Advance Directives Information Provided: No Healthcare Proxy: No Guardian: No Do you have thoughts of harming others: None Do you have a plan to hurt others: No Plan Recently lost weight without trying: No How much weight loss: Not applicable Eating poorly because of decreased appetite: No Nutrition screen score: 0 Nutrition Risks: No Nutritional Risk Poor oral hygiene: No service: No Sexual orientation: Straight/Heterosexual Meds Allergies Allergy/AdvReac Type Severity Reaction Status Date / Time haloperidol [From Haldol] Allergy Intermediate Agitated Verified 02/04/21 19:02 lithium Allergy Intermediate Agitated Verified 02/04/21 19:02 oxcarbazepine Allergy Unknown RASH Verified 02/04/21 19:02 [From TRILEPTAL] fluphenazine [From Prolixin] Allergy akathisia Verified 12/09/21 11:48 Active Medications: Current Medications Acetaminophen (Acetaminophen 325 Mg Tablet) 650 mg PO Q6H PRN PRN Reason: Headache/Pain Mild Scale (1-3) Al Hydroxide/Mg Hydroxide (Magnesium Hydrox/Alum Hydrox 30 Ml Oral.Susp) 30 ml PO Q6H PRN PRN Reason: Heartburn/Nausea Last Admin: 09/29/23 17:33 Dose: 30 ml Atorvastatin Calcium (Atorvastatin Calcium 40 Mg Tablet) 40 mg PO DAILY [facility] Last Admin: 10/05/23 08:45 Dose: 40 mg Benzocaine (Throat Lozenge, Medicated Lozenge) 1 lozenge MUCOUS MEM Q2H PRN PRN Reason: Sore Throat Benztropine Mesylate (Benztropine Mesylate 0.5 Mg Tablet) 1.5 mg PO BID [facility] Last Admin: 10/05/23 08:46 Dose: 1.5 mg Clonazepam (Clonazepam 1 Mg Tablet) 1 mg PO TID [facility] Last Admin: 10/05/23 14:57 Dose: 1 mg Clozapine (Clozapine 100 Mg Tablet) 300 mg PO BEDTIME [facility] Last Admin: 10/04/23 20:37 Dose: 300 mg Divalproex Sodium (Divalproex Sodium Er 250 Mg Tab.Er.24h) 750 mg PO BID [facility] Last Admin: 10/05/23 08:46 Dose: 750 mg Empagliflozin (Empagliflozin 25 Mg Tablet) 25 mg PO DAILY [facility] Last Admin: 10/05/23 08:46 Dose: 25 mg Gabapentin (Gabapentin 100 Mg Capsule) 100 mg PO TID [facility] Last Admin: 10/05/23 14:57 Dose: 100 mg Gabapentin (Gabapentin 400 Mg Capsule) 800 mg PO TID [facility] Last Admin: 10/05/23 14:57 Dose: 800 mg Guaifenesin (Guaifenesin 100 Mg/5 Ml Liquid) 5 ml PO Q4H PRN PRN Reason: Cough Last Admin: 10/01/23 11:17 Dose: 5 ml Hydroxyzine HCl (Hydroxyzine Hcl 25 Mg Tablet) 25 mg PO DAILY PRN PRN Reason: Anxiety Magnesium Hydroxide (Milk Of Magnesia 30 Ml Oral.Susp) 30 ml PO DAILY PRN PRN Reason: Constipation Metformin HCl (Metformin Hcl 1,000 Mg Tablet) 1,000 mg PO BID [facility] Last Admin: 10/05/23 08:46 Dose: 1,000 mg Metoprolol Succinate (Metoprolol Succinate Er 25 Mg Tab.Er.24h) 25 mg PO DAILY [facility]; Protocol Last Admin: 10/05/23 08:52 Dose: 25 mg Mirtazapine (Mirtazapine 7.5 Mg Tablet) 22.5 mg PO BEDTIME [facility] Last Admin: 10/04/23 20:37 Dose: 22.5 mg Quetiapine Fumarate (Quetiapine Fumarate 50 Mg Tablet) 50 mg PO BEDTIME PRN PRN Reason: insomnia Last Admin: 10/03/23 22:07 Dose: 50 mg Quetiapine Fumarate (Quetiapine Fumarate 25 Mg Tablet) 25 mg PO BID PRN PRN Reason: anxiety Last Admin: 10/04/23 08:43 Dose: 25 mg Sodium Chloride (Sodium Chloride 0.65 % Nasal 44 Ml Sprbtl) 1 spray NOSTRIL-B Q1H PRN PRN Reason: Dryness Trazodone HCl (Trazodone Hcl 100 Mg Tablet) 200 mg PO BEDTIME [facility] Last Admin: 10/04/23 20:38 Dose: 200 mg Home Medications Medication Instructions Recorded Confirmed Last Taken Type lancets 28 gauge (FreeStyle 07/22/20 09/23/23 Unknown History Lancets) mirtazapine 15 mg tablet 1 tab PO BEDTIME 01/10/22 09/23/23 Unknown History atorvastatin 40 mg tablet 40 mg PO DAILY 09/23/23 09/23/23 Unknown History dulaglutide 3 mg/0.5 mL 3 mg subcut QWEEK 09/23/23 09/23/23 Unknown History subcutaneous pen injector (Trulicity) empagliflozin 25 mg tablet 25 mg PO DAILY 09/23/23 09/23/23 Unknown History (Jardiance) gabapentin 100 mg capsule 100 mg PO TID 09/23/23 09/23/23 Unknown History Physical Exam Vital Signs: Vital Signs: Last Vital Signs Temp 97.0 F 10/05/23 08:20 Pulse 88 10/05/23 08:20 Resp 18 10/05/23 08:20 BP 114/58 L 10/05/23 08:20 Pulse Ox 95 10/05/23 08:20 O2 Del Method Room Air 10/05/23 08:20 BMI result Body Mass Index 32.9 Const: General: healthy appearing, no acute distress and well developed Orientation/consciousness: patient oriented x3 HEENT: Head: Yes normocephalic and Yes atraumatic Eyes: Conjunctivae: conjunctivae normal Neck: Neck: Yes normal visual inspection Chest: Chest palpation & inspection: normal inspection of the chest Resp: Effort & Inspection: normal respiratory effort Cardio: Rate: regular rate GI: Inspection: Yes normal to inspection Palpation (GI): Soft to palpation Skin: General skin exam: no rashes or lesions noted Neuro: General: patient oriented x3 Extrem: General: No pedal edema Psych: Appearance: grossly normal Affect: normal affect Results Labs 09/22/23 14:32 10/06/23 08:01 Labs: Abnormal lab results 10/04/23 10/05/23 Range/Units 20:52 08:42 POC Glucose 243 H 124 H (60-115) mg/dL Urine 09/22/23 Range/Units 11:54 Urine Color Yellow Urine Appearance Clear Urine pH 7.0 (5.0-9.0) Ur Specific [place] 1.015 (1.005-1.025) Urine Protein Negative (Neg-Trace) mg/dL Urine Glucose (UA) >=1000 H (Negative) mg/dL Collected: 09/22/23-UNK Status: COMP Req#: [id number] Received: 09/22/23-1324 Source: [facility] Sp Desc: Urine roca Subm Dr: Generic ED Physician Ordered: Urine Culture Procedure Result Verified Urine Culture Final 09/23/23-850 Report Result 50,000 to 100,000 cfu/ml Mixed bacterial raul characteristic of urogenital contamination. Assessment and Plan (1) Enuresis, nonorganic: Status: Acute (2) Schizoaffective disorder: Status: Acute (3) Urinary incontinence: Status: Acute Plan Recommend Repeat urine culture if no growth would hold on anticholinergics as symptoms are described as infrequent. Procedures Date of Service Date of Service: 10/06/23
--- NOTE | 2023-10-05 16:04 | PC.NURSE ---
Assumed care of pt at 15:30. Sitting in kitchen watching television. Offers no complaints @ this time.
--- NOTE | 2023-10-05 16:28 | P.PNPSI_ITS ---
Subjective Subjective Date of Service: 10/05/23 Reason For Visit: Schizoaffective Disorder Subjective Notes: Conditional Voluntary Healthcare Proxy: No Guardianship: No Medical Problems Affecting Mental Status: No Interim History: Reports depressive/restless/anxious sx 6.5/10 Restlessness increases in the a.m. Attending milieu groups and activities, finds these helpful. Medication Compliance: Yes Side effects from medications: No Attending Groups: Yes Review of Systems Acute medical concerns: No Medical Review of Systems: unchanged Review of Systems Review of Systems Yes all other systems are reviewed and are negative (denies) Mental Status Exam Mental Status Exam Patient Appearance: Appropriate Patient Orientation: Person, Place, Time and Situation Level of Consciousness: Alert Patient Behavior: Talkative and Good Eye Contact Mood Description: Flat Affect Description: Flat Patient Cognition Impaired: No Ability to Follow Directions: Good Speech Pattern: Spontaneous Speech Memory Description: Episodic Impaired Hallucinations: None Thought Process: Rumination Depressive Symptoms: Increased Anxiety Abnormal Motor Activity Signs and Symptoms: Restlessness Judgement: Fair Diagnostics Vital Signs (24Hr): Vital Signs - 24 hr 10/04/23 18:00 10/05/23 08:20 Temperature 97.3 F 97.0 F Pulse Rate 104 H 88 Respiratory Rate 18 18 Blood Pressure 125/66 114/58 L Pulse Oximetry 97 95 Oxygen Delivery Method Room Air Room Air BMI result Body Mass Index 32.9 Labs 09/22/23 14:32 09/29/23 08:28 Labs: Laboratory Results - last 48 hr 10/03/23 10/04/23 10/04/23 22:01 08:15 20:52 POC Glucose 227 H 107 243 H 10/05/23 08:42 POC Glucose 124 H Medications Medications Current Medications Acetaminophen (Acetaminophen 325 Mg Tablet) 650 mg PO Q6H PRN PRN Reason: Headache/Pain Mild Scale (1-3) Al Hydroxide/Mg Hydroxide (Magnesium Hydrox/Alum Hydrox 30 Ml Oral.Susp) 30 ml PO Q6H PRN PRN Reason: Heartburn/Nausea Last Admin: 09/29/23 17:33 Dose: 30 ml Atorvastatin Calcium (Atorvastatin Calcium 40 Mg Tablet) 40 mg PO DAILY [facility] Last Admin: 10/05/23 08:45 Dose: 40 mg Benzocaine (Throat Lozenge, Medicated Lozenge) 1 lozenge MUCOUS MEM Q2H PRN PRN Reason: Sore Throat Benztropine Mesylate (Benztropine Mesylate 0.5 Mg Tablet) 1.5 mg PO BID [facility] Last Admin: 10/05/23 08:46 Dose: 1.5 mg Clonazepam (Clonazepam 1 Mg Tablet) 1 mg PO TID [facility] Last Admin: 10/05/23 14:57 Dose: 1 mg Clozapine (Clozapine 100 Mg Tablet) 300 mg PO BEDTIME [facility] Last Admin: 10/04/23 20:37 Dose: 300 mg Divalproex Sodium (Divalproex Sodium Er 250 Mg Tab.Er.24h) 750 mg PO BID [facility] Last Admin: 10/05/23 08:46 Dose: 750 mg Empagliflozin (Empagliflozin 25 Mg Tablet) 25 mg PO DAILY [facility] Last Admin: 10/05/23 08:46 Dose: 25 mg Gabapentin (Gabapentin 100 Mg Capsule) 100 mg PO TID [facility] Last Admin: 10/05/23 14:57 Dose: 100 mg Gabapentin (Gabapentin 400 Mg Capsule) 800 mg PO TID [facility] Last Admin: 10/05/23 14:57 Dose: 800 mg Guaifenesin (Guaifenesin 100 Mg/5 Ml Liquid) 5 ml PO Q4H PRN PRN Reason: Cough Last Admin: 10/01/23 11:17 Dose: 5 ml Hydroxyzine HCl (Hydroxyzine Hcl 25 Mg Tablet) 25 mg PO DAILY PRN PRN Reason: Anxiety Magnesium Hydroxide (Milk Of Magnesia 30 Ml Oral.Susp) 30 ml PO DAILY PRN PRN Reason: Constipation Metformin HCl (Metformin Hcl 1,000 Mg Tablet) 1,000 mg PO BID [facility] Last Admin: 10/05/23 08:46 Dose: 1,000 mg Metoprolol Succinate (Metoprolol Succinate Er 25 Mg Tab.Er.24h) 25 mg PO DAILY [facility]; Protocol Last Admin: 10/05/23 08:52 Dose: 25 mg Mirtazapine (Mirtazapine 7.5 Mg Tablet) 22.5 mg PO BEDTIME [facility] Last Admin: 10/04/23 20:37 Dose: 22.5 mg Quetiapine Fumarate (Quetiapine Fumarate 50 Mg Tablet) 50 mg PO BEDTIME PRN PRN Reason: insomnia Last Admin: 10/03/23 22:07 Dose: 50 mg Quetiapine Fumarate (Quetiapine Fumarate 25 Mg Tablet) 25 mg PO BID PRN PRN Reason: anxiety Last Admin: 10/04/23 08:43 Dose: 25 mg Sodium Chloride (Sodium Chloride 0.65 % Nasal 44 Ml Sprbtl) 1 spray NOSTRIL-B Q1H PRN PRN Reason: Dryness Trazodone HCl (Trazodone Hcl 100 Mg Tablet) 200 mg PO BEDTIME [facility] Last Admin: 10/04/23 20:38 Dose: 200 mg Allergies Allergies Allergy/AdvReac Type Severity Reaction Status Date / Time haloperidol [From Haldol] Allergy Intermediate Agitated Verified 02/04/21 19:02 lithium Allergy Intermediate Agitated Verified 02/04/21 19:02 oxcarbazepine Allergy Unknown RASH Verified 02/04/21 19:02 [From TRILEPTAL] fluphenazine [From Prolixin] Allergy akathisia Verified 12/09/21 11:48 Assessment & Plan Assessment & Plan (1) Schizoaffective disorder: Status: Acute Code(s): F25.9 - Schizoaffective disorder, unspecified (2) Acute anxiety: Status: Acute Code(s): F41.9 - Anxiety disorder, unspecified Plan 47 yo male, hx of schizoaffective disorder, reports an increase in anxiety and restlessness. Also reports stopping medicines ~2 days [employer]. 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 09/25: no changes for now 09/26: no changes 09/28/23: Valproate, Clozapine levels Increase Remeron to 22.5 mg HS to address anxiety Seroquel 25 mg bid prn to address anxiety, restlessness 09/29/23: Continue treatment 09/30/23: PT consult for gait as OP team expressed concern for this sx. 10/01/23: Continue tx. 10/02/23: Urology consult-urinary incontinence PT upon discharge Continue current regime. 10/04 feels good about med changes made thus far and thinks they can remain the way they are for now overall feels more relaxed, less anxiety and feeling much less restless since admission; ambivalent about if ready for discharge. 10/05 Change Klonopin timing to 1 mg tid (no dose increase) Patient educated on: medication risk/benefits Informed Consent: understands and further education needed Reason for continued inpatient stay Substantial Risk for: rapid decompensation Time Spent With Patient Time: Total time managing care of this patient today ____ minutes.
[2023-10-05 18:00] VITALS: BP 138/64; PULSE 110; RESP 16; TEMP 36.2; O2SAT 97
[2023-10-05 22:07] LABS: Glucose, Whole Blood 308 mg/dL (60-115)
[2023-10-05] MEDS: QUEtiapine Fumarate 50 MG TABLET PO (22:24)
[2023-10-05] MEDS: traZODone HCL 100 MG TABLET 200 MG PO (22:24)
[2023-10-05] MEDS: Mirtazapine 7.5 MG TABLET 22.5 MG PO (22:24)
[2023-10-05] MEDS: cloZAPine 100 MG TABLET 300 MG PO (22:24)
[2023-10-06 08:00] VITALS: BP 120/72; PULSE 93; RESP 18; O2SAT 97
[2023-10-06 08:14] LABS: Neut%MD 59.6 %; Neutrophils Absolute Auto 5.2 x10*3/uL (2.0-8.3); WBCANC 8.8 X10*3/uL
[2023-10-06] MEDS: Gabapentin 400 MG CAPSULE 800 MG PO ×3 (08:32→21:39)
[2023-10-06] MEDS: clonazePAM 1 MG TABLET PO ×3 (08:32→21:41)
[2023-10-06] MEDS: Atorvastatin Calcium 40 MG TABLET PO (08:32)
[2023-10-06] MEDS: Metoprolol Succinate ER 25 MG TAB.ER.24H PO (08:32)
[2023-10-06] MEDS: Benztropine Mesylate 0.5 MG TABLET 1.5 MG PO ×2 (08:32→21:41)
[2023-10-06] MEDS: Divalproex Sodium ER 250 MG TAB.ER.24H 750 MG PO ×2 (08:32→21:39)
[2023-10-06] MEDS: Gabapentin 100 MG CAPSULE PO ×3 (08:32→21:41)
[2023-10-06] MEDS: Empagliflozin 25 MG TABLET PO (08:32)
[2023-10-06] MEDS: metFORMIN HCl 1,000 MG TABLET 1000 MG PO ×2 (08:32→21:41)
[2023-10-06 08:33] LABS: Creatinine Clr Calc Pharmacy 98.6; Estimated Glomerular Filt Rate > 60
[2023-10-06 08:38] LABS: Glucose, Whole Blood 126 mg/dL (60-115)
--- NOTE | 2023-10-06 09:23 | HO.PSYCHPN ---
Subjective Subjective Date of Service: 10/06/23 Reason For Visit: Schizoaffective Disorder Interim History: met with patient; discussed with team: reviewed chart pt reports he's good. Inquired about readiness to dc and he said getting there. no complaints, no requests. Mental Status Exam Mental Status Exam Patient Appearance: Appropriate Patient Orientation: Person, Place, Time and Situation Level of Consciousness: Alert Patient Behavior: Talkative and Good Eye Contact Mood Description: Flat Affect Description: Flat Patient Cognition Impaired: No Ability to Follow Directions: Good Speech Pattern: Spontaneous Speech Memory Description: Episodic Impaired Hallucinations: None Thought Process: Rumination Depressive Symptoms: Increased Anxiety Abnormal Motor Activity Signs and Symptoms: Restlessness Judgement: Fair Diagnostics Vital Signs (24Hr): Vital Signs - 24 hr 10/05/23 18:00 10/06/23 08:00 Temperature 97.2 F Pulse Rate 110 H 93 Respiratory Rate 16 18 Blood Pressure 138/64 120/72 Pulse Oximetry 97 97 Oxygen Delivery Method Room Air Room Air BMI result Body Mass Index 32.9 Labs 09/22/23 14:32 10/06/23 08:01 Labs: Laboratory Results - last 48 hr 10/04/23 10/05/23 10/05/23 20:52 08:42 22:02 Absolute Neuts (auto) Creatinine Estim Creat Clear Calc Estimated GFR POC Glucose 243 H 124 H 308 H 10/06/23 10/06/23 08:01 08:33 Absolute Neuts (auto) 5.2 Creatinine 1.04 Estim Creat Clear Calc 98.6 Estimated GFR > 60 POC Glucose 126 H Medications Medications Current Medications Acetaminophen (Acetaminophen 325 Mg Tablet) 650 mg PO Q6H PRN PRN Reason: Headache/Pain Mild Scale (1-3) Al Hydroxide/Mg Hydroxide (Magnesium Hydrox/Alum Hydrox 30 Ml Oral.Susp) 30 ml PO Q6H PRN PRN Reason: Heartburn/Nausea Last Admin: 09/29/23 17:33 Dose: 30 ml Atorvastatin Calcium (Atorvastatin Calcium 40 Mg Tablet) 40 mg PO DAILY [facility] Last Admin: 10/06/23 08:32 Dose: 40 mg Benzocaine (Throat Lozenge, Medicated Lozenge) 1 lozenge MUCOUS MEM Q2H PRN PRN Reason: Sore Throat Benztropine Mesylate (Benztropine Mesylate 0.5 Mg Tablet) 1.5 mg PO BID [facility] Last Admin: 10/06/23 08:32 Dose: 1.5 mg Clonazepam (Clonazepam 1 Mg Tablet) 1 mg PO TID [facility] Last Admin: 10/06/23 08:32 Dose: 1 mg Clozapine (Clozapine 100 Mg Tablet) 300 mg PO BEDTIME [facility] Last Admin: 10/05/23 22:24 Dose: 300 mg Divalproex Sodium (Divalproex Sodium Er 250 Mg Tab.Er.24h) 750 mg PO BID [facility] Last Admin: 10/06/23 08:32 Dose: 750 mg Empagliflozin (Empagliflozin 25 Mg Tablet) 25 mg PO DAILY [facility] Last Admin: 10/06/23 08:32 Dose: 25 mg Gabapentin (Gabapentin 100 Mg Capsule) 100 mg PO TID [facility] Last Admin: 10/06/23 08:32 Dose: 100 mg Gabapentin (Gabapentin 400 Mg Capsule) 800 mg PO TID [facility] Last Admin: 10/06/23 08:32 Dose: 800 mg Guaifenesin (Guaifenesin 100 Mg/5 Ml Liquid) 5 ml PO Q4H PRN PRN Reason: Cough Last Admin: 10/01/23 11:17 Dose: 5 ml Hydroxyzine HCl (Hydroxyzine Hcl 25 Mg Tablet) 25 mg PO DAILY PRN PRN Reason: Anxiety Magnesium Hydroxide (Milk Of Magnesia 30 Ml Oral.Susp) 30 ml PO DAILY PRN PRN Reason: Constipation Metformin HCl (Metformin Hcl 1,000 Mg Tablet) 1,000 mg PO BID [facility] Last Admin: 10/06/23 08:32 Dose: 1,000 mg Metoprolol Succinate (Metoprolol Succinate Er 25 Mg Tab.Er.24h) 25 mg PO DAILY [facility]; Protocol Last Admin: 10/06/23 08:32 Dose: 25 mg Mirtazapine (Mirtazapine 7.5 Mg Tablet) 22.5 mg PO BEDTIME [facility] Last Admin: 10/05/23 22:24 Dose: 22.5 mg Quetiapine Fumarate (Quetiapine Fumarate 50 Mg Tablet) 50 mg PO BEDTIME PRN PRN Reason: insomnia Last Admin: 10/05/23 22:24 Dose: 50 mg Quetiapine Fumarate (Quetiapine Fumarate 25 Mg Tablet) 25 mg PO BID PRN PRN Reason: anxiety Last Admin: 10/04/23 08:43 Dose: 25 mg Sodium Chloride (Sodium Chloride 0.65 % Nasal 44 Ml Sprbtl) 1 spray NOSTRIL-B Q1H PRN PRN Reason: Dryness Trazodone HCl (Trazodone Hcl 100 Mg Tablet) 200 mg PO BEDTIME [facility] Last Admin: 10/05/23 22:24 Dose: 200 mg Allergies Allergies Allergy/AdvReac Type Severity Reaction Status Date / Time haloperidol [From Haldol] Allergy Intermediate Agitated Verified 02/04/21 19:02 lithium Allergy Intermediate Agitated Verified 02/04/21 19:02 oxcarbazepine Allergy Unknown RASH Verified 02/04/21 19:02 [From TRILEPTAL] fluphenazine [From Prolixin] Allergy akathisia Verified 12/09/21 11:48 Assessment & Plan Assessment & Plan (1) Schizoaffective disorder: Status: Acute Code(s): F25.9 - Schizoaffective disorder, unspecified (2) Acute anxiety: Status: Acute Code(s): F41.9 - Anxiety disorder, unspecified Plan 47 yo male, hx of schizoaffective disorder, reports an increase in anxiety and restlessness. Also reports stopping medicines ~2 days [employer]. 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 09/25: no changes for now 09/26: no changes 09/28/23: Valproate, Clozapine levels Increase Remeron to 22.5 mg HS to address anxiety Seroquel 25 mg bid prn to address anxiety, restlessness 09/29/23: Continue treatment 09/30/23: PT consult for gait as OP team expressed concern for this sx. 10/01/23: Continue tx. 10/02/23: Urology consult-urinary incontinence PT upon discharge Continue current regime. 10/04 feels good about med changes made thus far and thinks they can remain the way they are for now overall feels more relaxed, less anxiety and feeling much less restless since admission; ambivalent about if ready for discharge. 10/05 Change Klonopin timing to 1 mg tid (no dose increase) 10/06 continue current tx Patient educated on: diagnosis Informed Consent: understands Reason for continued inpatient stay Substantial Risk for: stable for discharge Time Spent With Patient Time: Total time managing care of this patient today ____ minutes.
[2023-10-06 13:47] VITALS: BP 120/72; PULSE 93; O2SAT 97
[2023-10-06 16:32] VITALS: BP 110/55; PULSE 104; RESP 18; TEMP 36.3; O2SAT 97
[2023-10-06] MEDS: Mirtazapine 7.5 MG TABLET 22.5 MG PO (21:41)
[2023-10-06] MEDS: traZODone HCL 100 MG TABLET 200 MG PO (21:41)
[2023-10-06] MEDS: cloZAPine 100 MG TABLET 300 MG PO (21:41)
[2023-10-06] MEDS: QUEtiapine Fumarate 50 MG TABLET PO (21:41)
[2023-10-06 21:54] LABS: Glucose, Whole Blood 334 mg/dL (60-115)
[2023-10-07 08:02] VITALS: BP 138/76; PULSE 80; RESP 16; TEMP 36.1; O2SAT 97
[2023-10-07 08:10] LABS: Glucose, Whole Blood 132 mg/dL (60-115)
[2023-10-07] MEDS: Divalproex Sodium ER 250 MG TAB.ER.24H 750 MG PO ×2 (08:55→21:14)
[2023-10-07] MEDS: Benztropine Mesylate 0.5 MG TABLET 1.5 MG PO ×2 (08:55→21:14)
[2023-10-07] MEDS: metFORMIN HCl 1,000 MG TABLET 1000 MG PO ×2 (08:56→21:15)
[2023-10-07] MEDS: clonazePAM 1 MG TABLET PO ×3 (08:56→21:14)
[2023-10-07] MEDS: Gabapentin 100 MG CAPSULE PO ×3 (08:56→21:14)
[2023-10-07] MEDS: Empagliflozin 25 MG TABLET PO (08:56)
[2023-10-07] MEDS: Gabapentin 400 MG CAPSULE 800 MG PO ×3 (08:56→21:15)
[2023-10-07] MEDS: Metoprolol Succinate ER 25 MG TAB.ER.24H PO (08:56)
[2023-10-07] MEDS: Atorvastatin Calcium 40 MG TABLET PO (08:57)
--- NOTE | 2023-10-07 15:14 | P.PNPSI_ITS ---
Subjective Subjective Date of Service: 10/07/23 Reason For Visit: Schizoaffective Disorder Subjective Notes: Conditional Voluntary Healthcare Proxy: No Guardianship: No Medical Problems Affecting Mental Status: No Interim History: Pt reports ongoing gradual improvement. He is now focusing on attending groups and working with the group on therapeutic issues. Reports regime to be helpful. I am satisfied Planning discharge for 10/12/23. Medication Compliance: Yes Side effects from medications: No Attending Groups: Yes Review of Systems Acute medical concerns: No Medical Review of Systems: unchanged Review of Systems Review of Systems Yes all other systems are reviewed and are negative Mental Status Exam Mental Status Exam Patient Appearance: Appropriate Patient Orientation: Person, Place, Time and Situation Level of Consciousness: Alert Patient Behavior: Talkative and Good Eye Contact Mood Description: Flat Affect Description: Flat Patient Cognition Impaired: No Ability to Follow Directions: Good Speech Pattern: Spontaneous Speech Memory Description: Episodic Impaired Hallucinations: None Thought Process: Intact and Goal Oriented Thought Content: positive for Goal Oriented Judgement: Good Diagnostics Vital Signs (24Hr): Vital Signs - 24 hr 10/06/23 16:32 10/07/23 08:02 Temperature 97.4 F 97 F Pulse Rate 104 H 80 Respiratory Rate 18 16 Blood Pressure 110/55 L 138/76 Pulse Oximetry 97 97 Oxygen Delivery Method Room Air Room Air BMI result Body Mass Index 32.9 Labs 09/22/23 14:32 10/06/23 08:01 Labs: Laboratory Results - last 48 hr 10/05/23 10/06/23 10/06/23 22:02 08:01 08:33 Absolute Neuts (auto) 5.2 Creatinine 1.04 Estim Creat Clear Calc 98.6 Estimated GFR > 60 POC Glucose 308 H 126 H 10/06/23 10/07/23 21:49 07:58 Absolute Neuts (auto) Creatinine Estim Creat Clear Calc Estimated GFR POC Glucose 334 H 132 H Medications Medications Current Medications Acetaminophen (Acetaminophen 325 Mg Tablet) 650 mg PO Q6H PRN PRN Reason: Headache/Pain Mild Scale (1-3) Al Hydroxide/Mg Hydroxide (Magnesium Hydrox/Alum Hydrox 30 Ml Oral.Susp) 30 ml PO Q6H PRN PRN Reason: Heartburn/Nausea Last Admin: 09/29/23 17:33 Dose: 30 ml Atorvastatin Calcium (Atorvastatin Calcium 40 Mg Tablet) 40 mg PO DAILY [facility] Last Admin: 10/07/23 08:57 Dose: 40 mg Benzocaine (Throat Lozenge, Medicated Lozenge) 1 lozenge MUCOUS MEM Q2H PRN PRN Reason: Sore Throat Benztropine Mesylate (Benztropine Mesylate 0.5 Mg Tablet) 1.5 mg PO BID [facility] Last Admin: 10/07/23 08:55 Dose: 1.5 mg Clonazepam (Clonazepam 1 Mg Tablet) 1 mg PO TID [facility] Last Admin: 10/07/23 15:09 Dose: 1 mg Clozapine (Clozapine 100 Mg Tablet) 300 mg PO BEDTIME [facility] Last Admin: 10/06/23 21:41 Dose: 300 mg Divalproex Sodium (Divalproex Sodium Er 250 Mg Tab.Er.24h) 750 mg PO BID [facility] Last Admin: 10/07/23 08:55 Dose: 750 mg Empagliflozin (Empagliflozin 25 Mg Tablet) 25 mg PO DAILY [facility] Last Admin: 10/07/23 08:56 Dose: 25 mg Gabapentin (Gabapentin 100 Mg Capsule) 100 mg PO TID [facility] Last Admin: 10/07/23 15:09 Dose: 100 mg Gabapentin (Gabapentin 400 Mg Capsule) 800 mg PO TID [facility] Last Admin: 10/07/23 15:09 Dose: 800 mg Guaifenesin (Guaifenesin 100 Mg/5 Ml Liquid) 5 ml PO Q4H PRN PRN Reason: Cough Last Admin: 10/01/23 11:17 Dose: 5 ml Hydroxyzine HCl (Hydroxyzine Hcl 25 Mg Tablet) 25 mg PO DAILY PRN PRN Reason: Anxiety Magnesium Hydroxide (Milk Of Magnesia 30 Ml Oral.Susp) 30 ml PO DAILY PRN PRN Reason: Constipation Metformin HCl (Metformin Hcl 1,000 Mg Tablet) 1,000 mg PO BID [facility] Last Admin: 10/07/23 08:56 Dose: 1,000 mg Metoprolol Succinate (Metoprolol Succinate Er 25 Mg Tab.Er.24h) 25 mg PO DAILY [facility]; Protocol Last Admin: 10/07/23 08:56 Dose: 25 mg Mirtazapine (Mirtazapine 7.5 Mg Tablet) 22.5 mg PO BEDTIME [facility] Last Admin: 10/06/23 21:41 Dose: 22.5 mg Quetiapine Fumarate (Quetiapine Fumarate 50 Mg Tablet) 50 mg PO BEDTIME PRN PRN Reason: insomnia Last Admin: 10/06/23 21:41 Dose: 50 mg Quetiapine Fumarate (Quetiapine Fumarate 25 Mg Tablet) 25 mg PO BID PRN PRN Reason: anxiety Last Admin: 10/04/23 08:43 Dose: 25 mg Sodium Chloride (Sodium Chloride 0.65 % Nasal 44 Ml Sprbtl) 1 spray NOSTRIL-B Q1H PRN PRN Reason: Dryness Trazodone HCl (Trazodone Hcl 100 Mg Tablet) 200 mg PO BEDTIME [facility] Last Admin: 10/06/23 21:41 Dose: 200 mg Allergies Allergies Allergy/AdvReac Type Severity Reaction Status Date / Time haloperidol [From Haldol] Allergy Intermediate Agitated Verified 02/04/21 19:02 lithium Allergy Intermediate Agitated Verified 02/04/21 19:02 oxcarbazepine Allergy Unknown RASH Verified 02/04/21 19:02 [From TRILEPTAL] fluphenazine [From Prolixin] Allergy akathisia Verified 12/09/21 11:48 Assessment & Plan Assessment & Plan (1) Schizoaffective disorder: Status: Acute Code(s): F25.9 - Schizoaffective disorder, unspecified (2) Acute anxiety: Status: Acute Code(s): F41.9 - Anxiety disorder, unspecified Plan 47 yo male, hx of schizoaffective disorder, reports an increase in anxiety and restlessness. 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 09/25: no changes for now 09/26: no changes 09/28/23: Valproate, Clozapine levels Increase Remeron to 22.5 mg HS to address anxiety Seroquel 25 mg bid prn to address anxiety, restlessness 09/29/23: Continue treatment 09/30/23: PT consult for gait as OP team expressed concern for this sx. 10/01/23: Continue tx. 10/02/23: Urology consult-urinary incontinence PT upon discharge Continue current regime. 10/04 feels good about med changes made thus far and thinks they can remain the way they are for now overall feels more relaxed, less anxiety and feeling much less restless since admission; ambivalent about if ready for discharge. 10/05 Change Klonopin timing to 1 mg tid (no dose increase) 10/06 continue current tx 10/07 Continue tx Patient educated on: medication risk/benefits and therapeutic strategies Informed Consent: understands Reason for continued inpatient stay Substantial Risk for: rapid decompensation Time Spent With Patient Time: Total time managing care of this patient today ____ minutes.
[2023-10-07 18:00] VITALS: BP 134/80; PULSE 110; TEMP 36.3; O2SAT 98
[2023-10-07] MEDS: cloZAPine 100 MG TABLET 300 MG PO (21:14)
[2023-10-07] MEDS: Mirtazapine 7.5 MG TABLET 22.5 MG PO (21:14)
[2023-10-07] MEDS: traZODone HCL 100 MG TABLET 200 MG PO (21:14)
[2023-10-07] MEDS: QUEtiapine Fumarate 50 MG TABLET PO (21:19)
[2023-10-07 22:10] LABS: Glucose, Whole Blood 254 mg/dL (60-115)
[2023-10-08 08:09] LABS: Glucose, Whole Blood 130 mg/dL (60-115)
[2023-10-08 08:12] VITALS: BP 123/60; PULSE 89; RESP 16; TEMP 36.1; O2SAT 98
[2023-10-08] MEDS: Atorvastatin Calcium 40 MG TABLET PO (08:21)
[2023-10-08] MEDS: metFORMIN HCl 1,000 MG TABLET 1000 MG PO ×2 (08:21→21:54)
[2023-10-08] MEDS: Divalproex Sodium ER 250 MG TAB.ER.24H 750 MG PO ×2 (08:21→21:49)
[2023-10-08] MEDS: clonazePAM 1 MG TABLET PO ×3 (08:21→21:52)
[2023-10-08] MEDS: Benztropine Mesylate 0.5 MG TABLET 1.5 MG PO ×2 (08:21→21:50)
[2023-10-08] MEDS: Empagliflozin 25 MG TABLET PO (08:21)
[2023-10-08] MEDS: Metoprolol Succinate ER 25 MG TAB.ER.24H PO (08:21)
[2023-10-08] MEDS: Gabapentin 100 MG CAPSULE PO ×3 (08:21→21:53)
[2023-10-08] MEDS: Gabapentin 400 MG CAPSULE 800 MG PO ×3 (08:21→21:52)
--- NOTE | 2023-10-08 12:09 | P.PNPSI_ITS ---
Subjective Subjective Date of Service: 10/08/23 Reason For Visit: Schizoaffective Disorder Subjective Notes: Conditional Voluntary Healthcare Proxy: No Guardianship: No Medical Problems Affecting Mental Status: No Interim History: Reviewed participation in group and content he would like to explore more fully upon discharge. Pleased with PT and urological consults. Discussed getting urine culture and he agreed. Denies medication SE and reports efficacy in sx mgt. Medication Compliance: Yes Side effects from medications: No Attending Groups: Yes Review of Systems Acute medical concerns: No Medical Review of Systems: unchanged Review of Systems Review of Systems Yes all other systems are reviewed and are negative Mental Status Exam Mental Status Exam Patient Appearance: Appropriate Patient Orientation: Person, Place, Time and Situation Level of Consciousness: Alert Patient Behavior: Talkative and Good Eye Contact Mood Description: Flat Affect Description: Flat Patient Cognition Impaired: No Ability to Follow Directions: Good Speech Pattern: Spontaneous Speech Memory Description: Episodic Impaired Hallucinations: None Thought Process: Intact and Goal Oriented Thought Content: positive for Goal Oriented Judgement: Good Diagnostics Vital Signs (24Hr): Vital Signs - 24 hr 10/07/23 18:00 10/08/23 08:12 Temperature 97.4 F 97 F Pulse Rate 110 H 89 Respiratory Rate 16 Blood Pressure 134/80 123/60 Pulse Oximetry 98 98 Oxygen Delivery Method Room Air Room Air BMI result Body Mass Index 32.9 Labs 09/22/23 14:32 10/06/23 08:01 Labs: Laboratory Results - last 48 hr 10/06/23 10/07/23 10/07/23 21:49 07:58 22:07 POC Glucose 334 H 132 H 254 H 10/08/23 08:05 POC Glucose 130 H Medications Medications Current Medications Acetaminophen (Acetaminophen 325 Mg Tablet) 650 mg PO Q6H PRN PRN Reason: Headache/Pain Mild Scale (1-3) Al Hydroxide/Mg Hydroxide (Magnesium Hydrox/Alum Hydrox 30 Ml Oral.Susp) 30 ml PO Q6H PRN PRN Reason: Heartburn/Nausea Last Admin: 09/29/23 17:33 Dose: 30 ml Atorvastatin Calcium (Atorvastatin Calcium 40 Mg Tablet) 40 mg PO DAILY [facility] Last Admin: 10/08/23 08:21 Dose: 40 mg Benzocaine (Throat Lozenge, Medicated Lozenge) 1 lozenge MUCOUS MEM Q2H PRN PRN Reason: Sore Throat Benztropine Mesylate (Benztropine Mesylate 0.5 Mg Tablet) 1.5 mg PO BID [facility] Last Admin: 10/08/23 08:21 Dose: 1.5 mg Clonazepam (Clonazepam 1 Mg Tablet) 1 mg PO TID [facility] Last Admin: 10/08/23 08:21 Dose: 1 mg Clozapine (Clozapine 100 Mg Tablet) 300 mg PO BEDTIME [facility] Last Admin: 10/07/23 21:14 Dose: 300 mg Divalproex Sodium (Divalproex Sodium Er 250 Mg Tab.Er.24h) 750 mg PO BID [facility] Last Admin: 10/08/23 08:21 Dose: 750 mg Empagliflozin (Empagliflozin 25 Mg Tablet) 25 mg PO DAILY [facility] Last Admin: 10/08/23 08:21 Dose: 25 mg Gabapentin (Gabapentin 100 Mg Capsule) 100 mg PO TID [facility] Last Admin: 10/08/23 08:21 Dose: 100 mg Gabapentin (Gabapentin 400 Mg Capsule) 800 mg PO TID [facility] Last Admin: 10/08/23 08:21 Dose: 800 mg Guaifenesin (Guaifenesin 100 Mg/5 Ml Liquid) 5 ml PO Q4H PRN PRN Reason: Cough Last Admin: 10/01/23 11:17 Dose: 5 ml Hydroxyzine HCl (Hydroxyzine Hcl 25 Mg Tablet) 25 mg PO DAILY PRN PRN Reason: Anxiety Magnesium Hydroxide (Milk Of Magnesia 30 Ml Oral.Susp) 30 ml PO DAILY PRN PRN Reason: Constipation Metformin HCl (Metformin Hcl 1,000 Mg Tablet) 1,000 mg PO BID [facility] Last Admin: 10/08/23 08:21 Dose: 1,000 mg Metoprolol Succinate (Metoprolol Succinate Er 25 Mg Tab.Er.24h) 25 mg PO DAILY [facility]; Protocol Last Admin: 10/08/23 08:21 Dose: 25 mg Mirtazapine (Mirtazapine 7.5 Mg Tablet) 22.5 mg PO BEDTIME [facility] Last Admin: 10/07/23 21:14 Dose: 22.5 mg Quetiapine Fumarate (Quetiapine Fumarate 50 Mg Tablet) 50 mg PO BEDTIME PRN PRN Reason: insomnia Last Admin: 10/07/23 21:19 Dose: 50 mg Quetiapine Fumarate (Quetiapine Fumarate 25 Mg Tablet) 25 mg PO BID PRN PRN Reason: anxiety Last Admin: 10/04/23 08:43 Dose: 25 mg Sodium Chloride (Sodium Chloride 0.65 % Nasal 44 Ml Sprbtl) 1 spray NOSTRIL-B Q1H PRN PRN Reason: Dryness Trazodone HCl (Trazodone Hcl 100 Mg Tablet) 200 mg PO BEDTIME [facility] Last Admin: 10/07/23 21:14 Dose: 200 mg Allergies Allergies Allergy/AdvReac Type Severity Reaction Status Date / Time haloperidol [From Haldol] Allergy Intermediate Agitated Verified 02/04/21 19:02 lithium Allergy Intermediate Agitated Verified 02/04/21 19:02 oxcarbazepine Allergy Unknown RASH Verified 02/04/21 19:02 [From TRILEPTAL] fluphenazine [From Prolixin] Allergy akathisia Verified 12/09/21 11:48 Assessment & Plan Assessment & Plan (1) Schizoaffective disorder: Status: Acute Code(s): F25.9 - Schizoaffective disorder, unspecified (2) Acute anxiety: Status: Acute Code(s): F41.9 - Anxiety disorder, unspecified Plan 47 yo male, hx of schizoaffective disorder, reports an increase in anxiety and restlessness. 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 2: no changes for now 09/26: no changes 09/28/23: Valproate, Clozapine levels Increase Remeron to 22.5 mg HS to address anxiety Seroquel 25 mg bid prn to address anxiety, restlessness 09/29/23: Continue treatment 09/30/23: PT consult for gait as OP team expressed concern for this sx. 10/01/23: Continue tx. 10/02/23: Urology consult-urinary incontinence PT upon discharge Continue current regime. 10/04 feels good about med changes made thus far and thinks they can remain the way they are for now overall feels more relaxed, less anxiety and feeling much less restless since admission; ambivalent about if ready for discharge. 10/05 Change Klonopin timing to 1 mg tid (no dose increase) 10/06 continue current tx 10/08 continue current tx Patient educated on: medication risk/benefits and medical condition Informed Consent: understands and further education needed Reason for continued inpatient stay Substantial Risk for: rapid decompensation Time Spent With Patient Time: Total time managing care of this patient today ____ minutes.
[2023-10-08 17:26] VITALS: BP 138/75; PULSE 115; TEMP 36.1; O2SAT 97
[2023-10-08 21:33] LABS: Glucose, Whole Blood 252 mg/dL (60-115)
[2023-10-08] MEDS: cloZAPine 100 MG TABLET 300 MG PO (21:51)
[2023-10-08] MEDS: traZODone HCL 100 MG TABLET 200 MG PO (21:54)
[2023-10-08] MEDS: Mirtazapine 7.5 MG TABLET 22.5 MG PO (21:54)
[2023-10-08] MEDS: QUEtiapine Fumarate 50 MG TABLET PO (21:59)
[2023-10-09 07:58] LABS: Glucose, Whole Blood 132 mg/dL (60-115)
[2023-10-09 08:01] VITALS: BP 123/77; PULSE 91; RESP 16; TEMP 36.4; O2SAT 97
[2023-10-09] MEDS: Benztropine Mesylate 0.5 MG TABLET 1.5 MG PO ×2 (08:05→21:43)
[2023-10-09] MEDS: metFORMIN HCl 1,000 MG TABLET 1000 MG PO ×2 (08:05→21:45)
[2023-10-09] MEDS: Atorvastatin Calcium 40 MG TABLET PO (08:05)
[2023-10-09] MEDS: Metoprolol Succinate ER 25 MG TAB.ER.24H PO (08:05)
[2023-10-09] MEDS: Divalproex Sodium ER 250 MG TAB.ER.24H 750 MG PO ×2 (08:05→21:43)
[2023-10-09] MEDS: Gabapentin 100 MG CAPSULE PO ×3 (08:05→21:43)
[2023-10-09] MEDS: Gabapentin 400 MG CAPSULE 800 MG PO ×3 (08:05→21:41)
[2023-10-09] MEDS: Empagliflozin 25 MG TABLET PO (08:05)
--- NOTE | 2023-10-09 08:11 | HO.PSYCHPN ---
Subjective Subjective Date of Service: 10/09/23 Reason For Visit: Schizoaffective Disorder Subjective Notes: Conditional Voluntary Interim History: Patient was seen and discussed in rounds today. Records and plans were reviewed. He is doing well. Continues to have some depression but overall quite improved. He is pleasant and cooperative. Compliant with treatment, medications and is getting some urological workup because of incontinence. No complaints or side effects. No changes were made today Medication Compliance: Yes Side effects from medications: No Attending Groups: Yes Review of Systems Review of Systems Episodes of incontinence Yes all other systems are reviewed and are negative Mental Status Exam Mental Status Exam Narrative: In today's visit he is alert, oriented and pleasant. Normal speech. Little eye contact. Affect is subdued and flat. No signs of psychosis. Cognitively is grossly intact. No SI. Judgment is intact Diagnostics Vital Signs (24Hr): Vital Signs - 24 hr 10/08/23 08:12 10/08/23 17:26 Temperature 97 F 97.0 F Pulse Rate 89 115 H Respiratory Rate 16 Blood Pressure 123/60 138/75 Pulse Oximetry 98 97 Oxygen Delivery Method Room Air Room Air BMI result Body Mass Index 32.9 Labs 09/22/23 14:32 10/06/23 08:01 Labs: Laboratory Results - last 48 hr 10/07/23 10/08/23 10/08/23 22:07 08:05 21:29 POC Glucose 254 H 130 H 252 H 10/09/23 07:53 POC Glucose 132 H Medications Medications Current Medications Acetaminophen (Acetaminophen 325 Mg Tablet) 650 mg PO Q6H PRN PRN Reason: Headache/Pain Mild Scale (1-3) Al Hydroxide/Mg Hydroxide (Magnesium Hydrox/Alum Hydrox 30 Ml Oral.Susp) 30 ml PO Q6H PRN PRN Reason: Heartburn/Nausea Last Admin: 09/29/23 17:33 Dose: 30 ml Atorvastatin Calcium (Atorvastatin Calcium 40 Mg Tablet) 40 mg PO DAILY [facility] Last Admin: 10/09/23 08:05 Dose: 40 mg Benzocaine (Throat Lozenge, Medicated Lozenge) 1 lozenge MUCOUS MEM Q2H PRN PRN Reason: Sore Throat Benztropine Mesylate (Benztropine Mesylate 0.5 Mg Tablet) 1.5 mg PO BID [facility] Last Admin: 10/09/23 08:05 Dose: 1.5 mg Clonazepam (Clonazepam 1 Mg Tablet) 1 mg PO TID [facility] Last Admin: 10/08/23 21:52 Dose: 1 mg Clozapine (Clozapine 100 Mg Tablet) 300 mg PO BEDTIME [facility] Last Admin: 10/08/23 21:51 Dose: 300 mg Divalproex Sodium (Divalproex Sodium Er 250 Mg Tab.Er.24h) 750 mg PO BID [facility] Last Admin: 10/09/23 08:05 Dose: 750 mg Empagliflozin (Empagliflozin 25 Mg Tablet) 25 mg PO DAILY [facility] Last Admin: 10/09/23 08:05 Dose: 25 mg Gabapentin (Gabapentin 100 Mg Capsule) 100 mg PO TID [facility] Last Admin: 10/09/23 08:05 Dose: 100 mg Gabapentin (Gabapentin 400 Mg Capsule) 800 mg PO TID [facility] Last Admin: 10/09/23 08:05 Dose: 800 mg Guaifenesin (Guaifenesin 100 Mg/5 Ml Liquid) 5 ml PO Q4H PRN PRN Reason: Cough Last Admin: 10/01/23 11:17 Dose: 5 ml Hydroxyzine HCl (Hydroxyzine Hcl 25 Mg Tablet) 25 mg PO DAILY PRN PRN Reason: Anxiety Magnesium Hydroxide (Milk Of Magnesia 30 Ml Oral.Susp) 30 ml PO DAILY PRN PRN Reason: Constipation Metformin HCl (Metformin Hcl 1,000 Mg Tablet) 1,000 mg PO BID [facility] Last Admin: 10/09/23 08:05 Dose: 1,000 mg Metoprolol Succinate (Metoprolol Succinate Er 25 Mg Tab.Er.24h) 25 mg PO DAILY [facility]; Protocol Last Admin: 10/09/23 08:05 Dose: 25 mg Mirtazapine (Mirtazapine 7.5 Mg Tablet) 22.5 mg PO BEDTIME [facility] Last Admin: 10/08/23 21:54 Dose: 22.5 mg Quetiapine Fumarate (Quetiapine Fumarate 50 Mg Tablet) 50 mg PO BEDTIME PRN PRN Reason: insomnia Last Admin: 10/08/23 21:59 Dose: 50 mg Quetiapine Fumarate (Quetiapine Fumarate 25 Mg Tablet) 25 mg PO BID PRN PRN Reason: anxiety Last Admin: 10/04/23 08:43 Dose: 25 mg Sodium Chloride (Sodium Chloride 0.65 % Nasal 44 Ml Sprbtl) 1 spray NOSTRIL-B Q1H PRN PRN Reason: Dryness Trazodone HCl (Trazodone Hcl 100 Mg Tablet) 200 mg PO BEDTIME [facility] Last Admin: 10/08/23 21:54 Dose: 200 mg Allergies Allergies Allergy/AdvReac Type Severity Reaction Status Date / Time haloperidol [From Haldol] Allergy Intermediate Agitated Verified 02/04/21 19:02 lithium Allergy Intermediate Agitated Verified 02/04/21 19:02 oxcarbazepine Allergy Unknown RASH Verified 02/04/21 19:02 [From TRILEPTAL] fluphenazine [From Prolixin] Allergy akathisia Verified 12/09/21 11:48 Assessment & Plan Assessment & Plan (1) Schizoaffective disorder: Status: Acute Code(s): F25.9 - Schizoaffective disorder, unspecified (2) Acute anxiety: Status: Acute Code(s): F41.9 - Anxiety disorder, unspecified Plan 47 yo male, hx of schizoaffective disorder, reports an increase in anxiety and restlessness. 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 09/25: no changes for now 09/26: no changes 09/28/23: Valproate, Clozapine levels Increase Remeron to 22.5 mg HS to address anxiety Seroquel 25 mg bid prn to address anxiety, restlessness 09/29/23: Continue treatment 09/30/23: PT consult for gait as OP team expressed concern for this sx. 10/01/23: Continue tx. 10/02/23: Urology consult-urinary incontinence PT upon discharge Continue current regime. 10/04 feels good about med changes made thus far and thinks they can remain the way they are for now overall feels more relaxed, less anxiety and feeling much less restless since admission; ambivalent about if ready for discharge. 10/05 Change Klonopin timing to 1 mg tid (no dose increase) 10/06 continue current tx 10/08 continue current tx 10/09: Continue current regimen and plans Reason for continued inpatient stay Substantial Risk for: med/psych decompensation Time Spent With Patient Time: Total time managing care of this patient today ____ minutes.
[2023-10-09] MEDS: clonazePAM 1 MG TABLET PO ×3 (08:14→21:41)
[2023-10-09 18:00] VITALS: BP 128/59; PULSE 109; TEMP 36.2; O2SAT 97
[2023-10-09 21:39] LABS: Glucose, Whole Blood 254 mg/dL (60-115)
[2023-10-09] MEDS: Mirtazapine 7.5 MG TABLET 22.5 MG PO (21:42)
[2023-10-09] MEDS: cloZAPine 100 MG TABLET 300 MG PO (21:44)
[2023-10-09] MEDS: traZODone HCL 100 MG TABLET 200 MG PO (21:45)
[2023-10-10 08:42] VITALS: BP 141/80; PULSE 82; RESP 16; TEMP 36.3; O2SAT 98
[2023-10-10 08:42] LABS: Glucose, Whole Blood 149 mg/dL (60-115)
[2023-10-10] MEDS: Divalproex Sodium ER 250 MG TAB.ER.24H 750 MG PO ×2 (09:23→21:47)
[2023-10-10] MEDS: Benztropine Mesylate 0.5 MG TABLET 1.5 MG PO ×2 (09:23→21:47)
[2023-10-10] MEDS: Gabapentin 400 MG CAPSULE 800 MG PO ×3 (09:23→21:49)
[2023-10-10] MEDS: clonazePAM 1 MG TABLET PO ×3 (09:23→21:49)
[2023-10-10] MEDS: Gabapentin 100 MG CAPSULE PO ×3 (09:23→21:50)
[2023-10-10] MEDS: metFORMIN HCl 1,000 MG TABLET 1000 MG PO ×2 (09:24→21:48)
[2023-10-10] MEDS: Atorvastatin Calcium 40 MG TABLET PO (09:24)
[2023-10-10] MEDS: Empagliflozin 25 MG TABLET PO (09:24)
[2023-10-10] MEDS: Metoprolol Succinate ER 25 MG TAB.ER.24H PO (09:24)
[2023-10-10 19:45] VITALS: BP 157/69; PULSE 116; TEMP 36.4
[2023-10-10 20:52] LABS: Glucose, Whole Blood 333 mg/dL (60-115)
[2023-10-10] MEDS: Mirtazapine 7.5 MG TABLET 22.5 MG PO (21:48)
[2023-10-10] MEDS: cloZAPine 100 MG TABLET 300 MG PO (21:49)
[2023-10-10] MEDS: traZODone HCL 100 MG TABLET 200 MG PO (21:49)
[2023-10-11 08:24] VITALS: BP 118/70; PULSE 90; RESP 16; TEMP 36.1; O2SAT 96
[2023-10-11 08:24] LABS: Glucose, Whole Blood 128 mg/dL (60-115)
[2023-10-11] MEDS: Benztropine Mesylate 0.5 MG TABLET 1.5 MG PO ×2 (09:18→21:28)
[2023-10-11] MEDS: clonazePAM 1 MG TABLET PO ×3 (09:18→21:28)
[2023-10-11] MEDS: Gabapentin 400 MG CAPSULE 800 MG PO ×3 (09:18→21:27)
[2023-10-11] MEDS: Divalproex Sodium ER 250 MG TAB.ER.24H 750 MG PO ×2 (09:18→21:27)
[2023-10-11] MEDS: Metoprolol Succinate ER 25 MG TAB.ER.24H PO (09:18)
[2023-10-11] MEDS: metFORMIN HCl 1,000 MG TABLET 1000 MG PO ×2 (09:18→21:27)
[2023-10-11] MEDS: Empagliflozin 25 MG TABLET PO (09:18)
[2023-10-11] MEDS: Gabapentin 100 MG CAPSULE PO ×3 (09:18→21:28)
[2023-10-11] MEDS: Atorvastatin Calcium 40 MG TABLET PO (09:18)
--- NOTE | 2023-10-11 12:28 | HO.PSYCHPN ---
Subjective Subjective Date of Service: 10/11/23 Reason For Visit: Schizoaffective Disorder Subjective Notes: Conditional Voluntary Interim History: Patient was seen and discussed in rounds today. Records and plans were reviewed. He has been isolative but feels that he has doing a little better. He is eating and sleeping adequately. No complaints or side effects. No changes were made today Medication Compliance: Yes Side effects from medications: No Attending Groups: Yes Review of Systems Review of Systems Incontinence Yes all other systems are reviewed and are negative Mental Status Exam Mental Status Exam Narrative: In today's visit he is alert, oriented and pleasant. Normal speech. Little eye contact. Affect is subdued and flat. No signs of psychosis. Cognitively is grossly intact. No SI. Judgment is intact Diagnostics Vital Signs (24Hr): Vital Signs - 24 hr 10/10/23 19:45 10/11/23 08:24 Temperature 97.6 F 97.0 F Pulse Rate 116 H 90 Respiratory Rate 16 Blood Pressure 157/69 H 118/70 Pulse Oximetry 96 Oxygen Delivery Method Room Air BMI result Body Mass Index 32.9 Labs 09/22/23 14:32 10/06/23 08:01 Labs: Laboratory Results - last 48 hr 10/09/23 10/10/23 10/10/23 21:34 08:06 20:45 POC Glucose 254 H 149 H 333 H 10/11/23 08:20 POC Glucose 128 H Medications Medications Current Medications Acetaminophen (Acetaminophen 325 Mg Tablet) 650 mg PO Q6H PRN PRN Reason: Headache/Pain Mild Scale (1-3) Al Hydroxide/Mg Hydroxide (Magnesium Hydrox/Alum Hydrox 30 Ml Oral.Susp) 30 ml PO Q6H PRN PRN Reason: Heartburn/Nausea Last Admin: 09/29/23 17:33 Dose: 30 ml Atorvastatin Calcium (Atorvastatin Calcium 40 Mg Tablet) 40 mg PO DAILY [facility] Last Admin: 10/11/23 09:18 Dose: 40 mg Benzocaine (Throat Lozenge, Medicated Lozenge) 1 lozenge MUCOUS MEM Q2H PRN PRN Reason: Sore Throat Benztropine Mesylate (Benztropine Mesylate 0.5 Mg Tablet) 1.5 mg PO BID [facility] Last Admin: 10/11/23 09:18 Dose: 1.5 mg Clonazepam (Clonazepam 1 Mg Tablet) 1 mg PO TID [facility] Last Admin: 10/11/23 09:18 Dose: 1 mg Clozapine (Clozapine 100 Mg Tablet) 300 mg PO BEDTIME [facility] Last Admin: 10/10/23 21:49 Dose: 300 mg Divalproex Sodium (Divalproex Sodium Er 250 Mg Tab.Er.24h) 750 mg PO BID [facility] Last Admin: 10/11/23 09:18 Dose: 750 mg Empagliflozin (Empagliflozin 25 Mg Tablet) 25 mg PO DAILY [facility] Last Admin: 10/11/23 09:18 Dose: 25 mg Gabapentin (Gabapentin 100 Mg Capsule) 100 mg PO TID [facility] Last Admin: 10/11/23 09:18 Dose: 100 mg Gabapentin (Gabapentin 400 Mg Capsule) 800 mg PO TID [facility] Last Admin: 10/11/23 09:18 Dose: 800 mg Guaifenesin (Guaifenesin 100 Mg/5 Ml Liquid) 5 ml PO Q4H PRN PRN Reason: Cough Last Admin: 10/01/23 11:17 Dose: 5 ml Hydroxyzine HCl (Hydroxyzine Hcl 25 Mg Tablet) 25 mg PO DAILY PRN PRN Reason: Anxiety Magnesium Hydroxide (Milk Of Magnesia 30 Ml Oral.Susp) 30 ml PO DAILY PRN PRN Reason: Constipation Metformin HCl (Metformin Hcl 1,000 Mg Tablet) 1,000 mg PO BID [facility] Last Admin: 10/11/23 09:18 Dose: 1,000 mg Metoprolol Succinate (Metoprolol Succinate Er 25 Mg Tab.Er.24h) 25 mg PO DAILY [facility]; Protocol Last Admin: 10/11/23 09:18 Dose: 25 mg Mirtazapine (Mirtazapine 7.5 Mg Tablet) 22.5 mg PO BEDTIME [facility] Last Admin: 10/10/23 21:48 Dose: 22.5 mg Quetiapine Fumarate (Quetiapine Fumarate 50 Mg Tablet) 50 mg PO BEDTIME PRN PRN Reason: insomnia Last Admin: 10/08/23 21:59 Dose: 50 mg Quetiapine Fumarate (Quetiapine Fumarate 25 Mg Tablet) 25 mg PO BID PRN PRN Reason: anxiety Last Admin: 10/04/23 08:43 Dose: 25 mg Sodium Chloride (Sodium Chloride 0.65 % Nasal 44 Ml Sprbtl) 1 spray NOSTRIL-B Q1H PRN PRN Reason: Dryness Trazodone HCl (Trazodone Hcl 100 Mg Tablet) 200 mg PO BEDTIME [facility] Last Admin: 10/10/23 21:49 Dose: 200 mg Allergies Allergies Allergy/AdvReac Type Severity Reaction Status Date / Time haloperidol [From Haldol] Allergy Intermediate Agitated Verified 02/04/21 19:02 lithium Allergy Intermediate Agitated Verified 02/04/21 19:02 oxcarbazepine Allergy Unknown RASH Verified 02/04/21 19:02 [From TRILEPTAL] fluphenazine [From Prolixin] Allergy akathisia Verified 12/09/21 11:48 Assessment & Plan Assessment & Plan (1) Schizoaffective disorder: Status: Acute Code(s): F25.9 - Schizoaffective disorder, unspecified (2) Acute anxiety: Status: Acute Code(s): F41.9 - Anxiety disorder, unspecified Plan 47 yo male, hx of schizoaffective disorder, reports an increase in anxiety and restlessness. 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 09/25: no changes for now 09/26: no changes 09/28/23: Valproate, Clozapine levels Increase Remeron to 22.5 mg HS to address anxiety Seroquel 25 mg bid prn to address anxiety, restlessness 09/29/23: Continue treatment 09/30/23: PT consult for gait as OP team expressed concern for this sx. 10/01/23: Continue tx. 10/02/23: Urology consult-urinary incontinence PT upon discharge Continue current regime. 10/04 feels good about med changes made thus far and thinks they can remain the way they are for now overall feels more relaxed, less anxiety and feeling much less restless since admission; ambivalent about if ready for discharge. 10/05 Change Klonopin timing to 1 mg tid (no dose increase) 10/06 continue current tx 10/08 continue current tx 10/11: Continue current plans and regimen Reason for continued inpatient stay Substantial Risk for: med/psych decompensation Time Spent With Patient Time: Total time managing care of this patient today ____ minutes.
[2023-10-11 18:50] VITALS: BP 118/69; PULSE 108; RESP 18; TEMP 36.3; O2SAT 96
[2023-10-11 20:51] LABS: Glucose, Whole Blood 213 mg/dL (60-115)
[2023-10-11] MEDS: cloZAPine 100 MG TABLET 300 MG PO (21:28)
[2023-10-11] MEDS: traZODone HCL 100 MG TABLET 200 MG PO (21:28)
[2023-10-11] MEDS: Mirtazapine 7.5 MG TABLET 22.5 MG PO (21:29)
[2023-10-12 08:10] VITALS: BP 117/76; PULSE 93; RESP 18; TEMP 36.2; O2SAT 97
[2023-10-12] MEDS: Gabapentin 400 MG CAPSULE 800 MG PO (08:49)
[2023-10-12] MEDS: Benztropine Mesylate 0.5 MG TABLET 1.5 MG PO (08:49)
[2023-10-12] MEDS: Metoprolol Succinate ER 25 MG TAB.ER.24H PO (08:50)
[2023-10-12] MEDS: Empagliflozin 25 MG TABLET PO (08:50)
[2023-10-12] MEDS: Atorvastatin Calcium 40 MG TABLET PO (08:50)
[2023-10-12] MEDS: Gabapentin 100 MG CAPSULE PO (08:50)
[2023-10-12] MEDS: clonazePAM 1 MG TABLET PO (08:50)
[2023-10-12] MEDS: metFORMIN HCl 1,000 MG TABLET 1000 MG PO (08:50)
[2023-10-12] MEDS: Divalproex Sodium ER 250 MG TAB.ER.24H 750 MG PO (08:51)
[2023-10-12 08:58] LABS: Glucose, Whole Blood 151 mg/dL (60-115)
--- NOTE | 2023-10-12 16:27 | P.DS_ITS ---
DS: Providers Provider Date of Service: 10/12/23 Date of admission: 09/23/23 13:56 Date of discharge: 10/12/23 Primary care physician: Jess Paris MD Admitting clinician: Malathi Abraham Attending physician on admission: Dwayne De La Rosa Consults: 10/02/23 17:14 Consult to Urology Routine Consulting Provider: [facility] Reason for consultation: urinary incontinence, DM Has provider been notified: No Attending physician on discharge: Dwayne De La Rosa Discharging clinician: Malathi Abraham DS: Diagnosis Discharge Diagnosis (1) Schizoaffective disorder: Status: Acute (2) Acute anxiety: Status: Acute DS: Medications Discharge Medications Home Medications: Home Medications Medication Instructions Recorded Confirmed lancets 28 gauge (FreeStyle 07/22/20 09/23/23 Lancets) atorvastatin 40 mg tablet 40 mg PO DAILY 09/23/23 09/23/23 dulaglutide 3 mg/0.5 mL 3 mg subcut QWEEK 09/23/23 09/23/23 subcutaneous pen injector (Trulicity) empagliflozin 25 mg tablet 25 mg PO DAILY 09/23/23 09/23/23 (Jardiance) Previous Rx's Medication Instructions Recorded metformin 1,000 mg tablet 1 tab PO BID #60 tabs 12/08/21 metoprolol succinate 25 mg 1 tab PO DAILY #30 caps 12/08/21 tablet,extended release 24 hr benztropine 0.5 mg tablet 1.5 mg (3 x 0.5 mg) PO BID #90 tabs 10/12/23 clonazepam 1 mg tablet 1 mg PO TID #90 tabs 10/12/23 clozapine 100 mg tablet 300 mg (3 x 100 mg) PO BEDTIME #45 10/12/23 tabs divalproex 250 mg tablet,extended 750 mg (3 x 250 mg) PO BID #180 10/12/23 release 24 hr tabs gabapentin 100 mg capsule 100 mg PO TID #90 caps 10/12/23 gabapentin 800 mg tablet 1 tab PO TID #90 tabs 10/12/23 hydroxyzine HCl 25 mg tablet 1 tab PO DAILY PRN Anxiety #30 tabs 10/12/23 mirtazapine 45 mg tablet 22.5 mg (1/2 x 45 mg) PO BEDTIME 10/12/23 #15 tabs quetiapine 25 mg tablet 25 mg PO BID PRN anxiety #60 tabs 10/12/23 quetiapine 50 mg tablet 50 mg PO BEDTIME PRN insomnia #30 10/12/23 tabs trazodone 100 mg tablet 200 mg (2 x 100 mg) PO BEDTIME #60 10/12/23 tabs Mental Status Exam Mental Status Exam Patient Appearance: Appropriate Patient Orientation: Person, Place, Time and Situation Level of Consciousness: Alert Patient Behavior: Talkative and Good Eye Contact Mood Description: Flat Affect Description: Flat Patient Cognition Impaired: No Ability to Follow Directions: Good Speech Pattern: Spontaneous Speech Memory Description: Episodic Impaired Hallucinations: None Thought Process: Intact and Goal Oriented Thought Content: positive for Goal Oriented Judgement: Good Data Data Completed and Pending Completed studies during hospitalization [Text1]: 10/05/23 10/06/23 10/06/23 22:02 08:01 08:33 Absolute Neuts (auto) 5.2 Creatinine 1.04 Estim Creat Clear Calc 98.6 Estimated GFR > 60 POC Glucose 308 H 126 H 10/06/23 10/07/23 10/07/23 21:49 07:58 22:07 Absolute Neuts (auto) Creatinine Estim Creat Clear Calc Estimated GFR POC Glucose 334 H 132 H 254 H 10/08/23 10/08/23 10/09/23 08:05 21:29 07:53 Absolute Neuts (auto) Creatinine Estim Creat Clear Calc Estimated GFR POC Glucose 130 H 252 H 132 H 10/09/23 10/10/23 10/10/23 21:34 08:06 20:45 Absolute Neuts (auto) Creatinine Estim Creat Clear Calc Estimated GFR POC Glucose 254 H 149 H 333 H 10/11/23 10/11/23 10/12/23 08:20 20:46 08:48 Absolute Neuts (auto) Creatinine Estim Creat Clear Calc Estimated GFR POC Glucose 128 H 213 H 151 H 10/09/23 10:40 Urine clean catch - Clean Catch Midstream Urine Culture - Final No growth. 09/22/23 Unknown Urine clean catch - Urine roca top Urine Culture - Final DS: Summary Hospital Course Hospital Course: Admission to adult psychiatry for exacerbation of schizoaffective disorder and anxiety. 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 Medications were evaluated and adjusted. Pt gradually began to integrate into the milieu. Urology and Physical Therapy consults were ordered. These were forwarded to primary care for referrals to continue with out patient Physical Therapy and Urology follow up. Pt was able to voice his needs and assist the team in setting a discharge date that was reasonable for him. Upon discharge, he was an active participant in the milieu and prepared to return to out patient care. Status at Discharge Functional status at discharge: independent ambulation Overall status at discharge: patient is progressing back to baseline Time Spent with Patient Time attestation: Total time managing care of this patient today ____ minutes. Time spent: Greater than 30 minutes Discharge Plan Discharge Anticipated Discharge Date/Time: 10/12/23 12:00 Patient Disposition: Home, Self-Care Discharge Diagnosis: Schizoaffective Disorder Anxiety HLD DMII HTN Referrals: [facility] [Other] - 1 Week (Fax- [phone] Visiting nurse will start again at D/C) [facility] w Debbie Still [Other] - 10/13/23 10:00 am [facility] w Chris Goins [Other] - 10/21/23 2:00 pm Jess Paris MD [Primary Care Provider] - 1 Week (Follow up appointment October 19, 2023 at 9:30am) Discharge Medications: New quetiapine 25 mg Tablet 25 mg PO BID PRN (Reason: anxiety) Qty: 60 0RF benztropine 0.5 mg Tablet 1.5 mg PO BID Qty: 90 0RF clonazepam 1 mg Tablet 1 mg PO TID Qty: 90 0RF mirtazapine 45 mg tablet 22.5 mg PO BEDTIME Qty: 15 0RF Continued (DME) lancets [FreeStyle Lancets] 28 gauge misc topical DAILY metformin 1,000 mg tablet 1 tab PO BID Qty: 60 0RF metoprolol succinate 25 mg tablet extended release 24 hr 1 tab PO DAILY Qty: 30 0RF atorvastatin 40 mg tablet 40 mg PO DAILY Jardiance 25 mg tablet 25 mg PO DAILY Trulicity 3 mg/0.5 mL pen injector 3 mg subcut QWEEK clozapine 100 mg tablet 300 mg PO BEDTIME Qty: 45 1RF gabapentin 800 mg tablet 1 tab PO TID Qty: 90 0RF trazodone 100 mg tablet 200 mg PO BEDTIME Qty: 60 0RF hydroxyzine HCl 25 mg tablet 1 tab PO DAILY PRN (Reason: Anxiety) Qty: 30 0RF gabapentin 100 mg capsule 100 mg PO TID Qty: 90 0RF divalproex 250 mg Tablet Extended Release 24 Hr 750 mg PO BID Qty: 180 0RF quetiapine 50 mg Tablet 50 mg PO BEDTIME PRN (Reason: insomnia) Qty: 30 0RF Discontinued clonazepam 1 mg Tablet 1 mg PO BID Qty: 60 0RF benztropine 1 mg tablet 1 tab PO BID Qty: 60 0RF mirtazapine 15 mg tablet 1 tab PO BEDTIME Discharge Orders: Discharge Order (Routine); Ordered 10/12/23 Ordered By: Malathi Abraham Diet: Advance to usual diet Activity on Discharge: As tolerated Stand Alone Forms: Patient Portal Discharge page, Community Support Care Plan Goals: Mood and Behavioral Stabilization Health Concerns: Mood and Behavioral Stabilization Plan of Treatment: Attend scheduled appointments Take medications as directed We will order out patient labs for the end of this week. Please do not take Depakote prior to having your labs drawn that a.m. You may take your morning Depakote dose after your labs have been drawn Call/Return as needed. Assessment: Pt interviewed prior to discharge and found to be fully oriented and without SI/HI. Pt has insight and demonstrates good judgment in terms of wanting to pursue treatment. Pt is not in imminent risk of harm to self or others and has a safety plan that includes presenting to the closest ER or calling 911 if feeling unsafe. Pt has been observed closely by nursing and unit staff throughout admission. Pt has not engaged in any behaviors that suggest dangerousness to self or others and has demonstrated appropriate behaviors and impulse control. Discharge Date/Time: 10/12/23 11:40
== END 2023-10-12 11:40 | disposition home or self-care (01) | DRG 885 ==
LOC: HO.ED 22:47 → HO.PM5 09-23 13:57
PROVIDERS: Admitting Provider Clinical Nurse Specialist Psychiatric/Mental Health, Adult; Emergency Provider Emergency Medicine; PCP Family Medicine; Visit Provider Clinical Nurse Specialist Psychiatric/Mental Health, Adult
DX: F25.9 Schizoaffective disorder, unspecified (principal); E13.9 Other specified diabetes mellitus without complications; N39.44 Nocturnal enuresis; E78.5 Hyperlipidemia, unspecified; F41.0 Panic disorder [episodic paroxysmal anxiety]; Z20.822 Contact with and (suspected) exposure to COVID-19; Z91.148 Patient's other noncompliance with medication regimen for other reason; Z79.84 Long term (current) use of oral hypoglycemic drugs; Z79.85 Long-term (current) use of injectable non-insulin antidiabetic drugs; Z79.899 Other long term (current) drug therapy
CPT/HCPCS: 36415; 80048; 80061; 80076; 80159; 80164; 80307; 81001; 82565; 82607; 82746; 82947; 83036; 83735; 84439; 84443; 85025; 85048; 87086; 87635; 93005; 97116; 97162; 99285; S9485

== ENCOUNTER → 2023-09-23 08:23 | Outpatient (BNV) | payer MEDICARE, MEDICAID, SELFPAY | PROVIDERS: Emergency Provider Emergency Medicine; PCP Family Medicine; Visit Provider Internal Medicine Cardiovascular Disease | DX: R00.0 Tachycardia, unspecified (principal); I45.81 Long QT syndrome | CPT/HCPCS: 93010 ==

== ENCOUNTER → 2023-09-23 13:56 | Outpatient (BNV) | payer MEDICARE, MEDICAID, SELFPAY | PROVIDERS: Admitting Provider Clinical Nurse Specialist Psychiatric/Mental Health, Adult; Emergency Provider Emergency Medicine; PCP Family Medicine; Visit Provider Clinical Nurse Specialist Psychiatric/Mental Health, Adult | DX: F25.1 Schizoaffective disorder, depressive type (principal); F41.9 Anxiety disorder, unspecified | CPT/HCPCS: 90792; 99231; 99232; 99238 ==

== ENCOUNTER → 2023-09-23 13:56 | Outpatient (BNV) | payer MEDICARE, MEDICAID, SELFPAY | PROVIDERS: Admitting Provider Clinical Nurse Specialist Psychiatric/Mental Health, Adult; Emergency Provider Emergency Medicine; PCP Family Medicine; Visit Provider Urology | DX: F98.0 Enuresis not due to a substance or known physiological condition (principal); F25.9 Schizoaffective disorder, unspecified; R32 Unspecified urinary incontinence | CPT/HCPCS: 99222 ==

== ENCOUNTER 2023-11-02 09:42 | Outpatient (REF) | payer MEDICARE, MEDICAID, SELFPAY ==
[2023-11-02 10:02] LABS: MANUAL DIFF FLAG NO
[2023-11-02 10:22] LABS: Basophils Absolute Auto 0.1 X10*3/uL (0.0-0.2); Basophils Percent Auto 0.6 % (0-2); Eosinophils Absolute Auto 0.4 X10*3/uL (0.0-0.4); Eosinophils Percent Auto 3.1 % (0-4); Hematocrit 50.1 % (42.0-52.0); Hemoglobin 16.1 g/dl (14.0-18.0); Imm Gran Abs Auto 0.04 X10*3/uL (0.00-0.03); Imm Gran Pct Auto 0.3 % (0.0-0.4); Lymphocytes Absolute Auto 2.5 X10*3/uL (1.2-4.9); Lymphocytes Percent Auto 20.1 % (20-40); Mean Corpuscular HGB Conc 32.1 g/dl (31.0-36.0); Mean Corpuscular Hemoglobin 27.9 pg (27.0-33.0); Mean Corpuscular Volume 86.8 fL (80.0-98.0); Mean Platelet Volume 9.1 fL (9.4-12.4); Neutrophils Absolute Auto 8.5 x10*3/uL (2.0-8.3); Neutrophils Percent Auto 67.9 % (45-73); Platelet Count 214 X10*3/uL (160-400); Red Blood Count 5.77 X10*6/uL (4.60-5.80); Red Cell Distribution Width 13.7 % (11.0-16.0); White Blood Count 12.4 X10*3/uL (4.8-10.8)
[2023-11-02 11:06] LABS: Valproate 75.9 mcg/mL (50.0-100.0)
[2023-11-05 09:43] LABS: Clozapine (Clozaril) 582 mcg/L; Norclozapine 226 mcg/L (25-400)
== END 2023-11-02 09:43 | disposition home or self-care (01) ==
LOC: HO.LABR 09:42
PROVIDERS: Visit Provider Clinical Nurse Specialist Psychiatric/Mental Health, Adult
DX: Z79.899 Other long term (current) drug therapy (principal)
CPT/HCPCS: 36415; 80159; 80164; 85025

== ENCOUNTER 2023-12-02 10:52 | Emergency (ER) | payer MEDICARE, MEDICAID, SELFPAY ==
--- NOTE | ~2023-12-02 | XR_ITS ---
EXAMINATION: XR KNEE, RIGHT CLINICAL INFORMATION: Knee pain COMPARISON: None available. TECHNIQUE: Four views of the right knee. FINDINGS: Some minimal degenerative changes are present with some mild narrowing of the lateral compartment. No fracture or significant joint effusion. Alignment is anatomic. Medial and patellofemoral compartment are maintained. No abnormal soft tissue calcification. XR/XR knee RT 4V IMPRESSION: Mild degenerative changes in the lateral compartment.
[2023-12-02 11:00] VITALS: BP 158/84; PULSE 110; O2SAT 97
[2023-12-02 11:21] VITALS: BP 127/89; PULSE 111; RESP 19; TEMP 36.6; O2SAT 98; BMI 31.5
--- NOTE | 2023-12-02 11:22 | ED_ITS ---
HPI - Extremity Problem General Chief complaint: Extremity Injury, Lower Stated complaint: R KNEE PAIN,GIVES OUT X 5 DAYS PER EMS Time Seen by Provider: 12/02/23 13:36 Source: patient Mode of arrival: wheelchair Limitations: no limitations History of Present Illness HPI Narrative: Patient is a 48-year-old male with history of diabetes, schizoaffective disorder, anxiety presenting to the emergency department with complaint of right knee pain for 5 days. States he noted the pain while sleeping, is unsure if he slept on his leg funny. States pain is to anterior knee. Has not taken any [id number] medications for his symptoms. Denies any falls or other trauma. Has not applied heat or ice. MD Complaint: joint pain Onset (ago): day(s) Pain Consistency: constant Location: right Quality: aching Radiation: none Relieving factors: rest Exacerbating factors: weight bearing Associated symptoms: denies other symptoms Related Data Home Medications ?Medication ?Instructions ?Recorded ?Confirmed lancets 28 gauge (FreeStyle 07/22/20 09/23/23 Lancets) atorvastatin 40 mg tablet 40 mg PO DAILY 09/23/23 09/23/23 dulaglutide 3 mg/0.5 mL 3 mg subcut QWEEK 09/23/23 09/23/23 subcutaneous pen injector (Trulicity) empagliflozin 25 mg tablet 25 mg PO DAILY 09/23/23 09/23/23 (Jardiance) Previous Rx's ?Medication ?Instructions ?Recorded metformin 1,000 mg tablet 1 tab PO BID #60 tabs 12/08/21 metoprolol succinate 25 mg 1 tab PO DAILY #30 caps 12/08/21 tablet,extended release 24 hr benztropine 0.5 mg tablet 1.5 mg (3 x 0.5 mg) PO BID #90 tabs 10/12/23 clonazepam 1 mg tablet 1 mg PO TID #90 tabs 10/12/23 clozapine 100 mg tablet 300 mg (3 x 100 mg) PO BEDTIME #45 10/12/23 tabs divalproex 250 mg tablet,extended 750 mg (3 x 250 mg) PO BID #180 10/12/23 release 24 hr tabs gabapentin 100 mg capsule 100 mg PO TID #90 caps 10/12/23 gabapentin 800 mg tablet 1 tab PO TID #90 tabs 10/12/23 hydroxyzine HCl 25 mg tablet 1 tab PO DAILY PRN Anxiety #30 tabs 10/12/23 mirtazapine 45 mg tablet 22.5 mg (1/2 x 45 mg) PO BEDTIME 10/12/23 #15 tabs quetiapine 25 mg tablet 25 mg PO BID PRN anxiety #60 tabs 10/12/23 quetiapine 50 mg tablet 50 mg PO BEDTIME PRN insomnia #30 10/12/23 tabs trazodone 100 mg tablet 200 mg (2 x 100 mg) PO BEDTIME #60 10/12/23 tabs naproxen 500 mg tablet 500 mg PO BID #28 tabs 12/02/23 Allergies Allergy/AdvReac Type Severity Reaction Status Date / Time haloperidol [From Haldol] Allergy Intermediate Agitated Verified 12/02/23 11:24 lithium Allergy Intermediate Agitated Verified 12/02/23 11:24 oxcarbazepine Allergy Unknown RASH Verified 12/02/23 11:24 [From TRILEPTAL] fluphenazine [From Prolixin] Allergy akathisia Verified 12/02/23 11:24 Review of Systems Review of Systems: As per HPI. Yes all other systems are reviewed and are negative Constitutional: Constitutional: Reports as per HPI [facility] Past Medical History Medical History Acute anxiety Schizoaffective disorder Diabetes 1.5, managed as type 2 Social History Social History Household Members: Other Household Members Other:: patient has a room-mate Housing: Apartment Housing Other:: [facility] supported apartment Do you presently have visiting nurse or other home services: Yes Alcohol intake: former Patient Tobacco Use Status: Never used Tobacco Advance Directives: No Advance Directives Information Provided: Yes service: No Sexual orientation: Straight/Heterosexual Physical Exam Vital Signs: Vital Signs: Last Vital Signs Temp 98 F 12/02/23 11:21 Pulse 111 H 12/02/23 11:21 Resp 19 12/02/23 11:21 BP 127/89 12/02/23 11:21 Pulse Ox 98 12/02/23 11:21 O2 Del Method Room Air 12/02/23 11:21 BMI result Body Mass Index 31.5 Vital signs have been reviewed and appear to be correct. Blood pressure normal. Heart rate mildly tachycardic. Respiratory rate normal. Temperature normal. Oxygen saturation normal. Const: General: cooperative, healthy appearing and no acute distress Orientation/consciousness: oriented to person, oriented to place, oriented to time and patient oriented x3 Limitations: no limitations HEENT: Head: Yes normocephalic and Yes atraumatic Ears: external ears normal General nose exam: Normal external nose present Face and sinus: Yes face symmetric Mouth: oropharynx normal and moist mucous membranes Throat: Yes uvula midline Eyes: Pupils: Equal, round and reactive pupils present Neck: Neck: Yes normal visual inspection and Yes supple Resp: Effort & Inspection: normal respiratory effort and able to speak in complete sentences Auscultation: clear to auscultation bilaterally Cardio: Rate: regular rate Rhythm: regular rhythm Heart sounds: S1 normal heart sound present and S2 normal heart sound present GI: Palpation (GI): Soft to palpation and nontender Auscultation: normoactive bowel sounds : General: Yes no CVA tenderness Back/Spine/Pelvis: Back: no CVA tenderness Skin: General skin exam: elasticity normal and turgor normal Neuro: General: oriented to person, oriented to place, oriented to time, patient oriented x3, moves all extremities, no focal motor deficits and CN's II- XI intact bilaterally Cranial nerves: Yes Equal, round and reactive pupils present Cognition (Neuro): normal cognition Extrem: General: Yes full ROM, Yes normal exam except as noted, Yes no pedal edema and Yes no calf tenderness Right lower extremity: knee Details: normal to inspection, tenderness Location: of the patella, normal ROM and knee ligament exam normal; no abrasions, no ecchymosis, no crepitus and no unusual warmth and foot Details: vascular exam Details: dorsalis pedis pulse present and posterior tibial pulse present Psych: Mental Status: mental status grossly normal Affect: normal affect Thought process: Normal thought process present Course Course Course Narrative: This is a Rapid Medical Examination (RME) in triage, full HPI, ROS, assessment and plan per primary provider in the Main ED. 48 yo male with history of schizoaffective disorder presents to the ER via EMS for evaluation of 5 days of worsening RLE pain, mostly the knee, that started in the middle of this night when he was in bed. Can only ambulate short distances. No swelling. Plan: XR knee Medical Decision Making Medical Decision Making [facility] Narrative: Patient is a 48-year-old male with history of diabetes, schizoaffective disorder, anxiety presenting to the emergency department with complaint of right knee pain for 5 days. On exam patient is awake, A+Ox3, slightly tachycardic, VS otherwise WNL, afebrile, normal neurological exam without focal deficits, physical exam findings as above. Given reported symptoms and physical exam findings, initial differential includes right knee strain, sprain, osteoarthritis. Low suspicion for fracture, do not suspect ligamentous injury. Do not suspect gout. X-ray notable for mild degenerative changes. My interpretation is in agreement with the radiologist's interpretation. Will send prescription for naproxen, advised patient to keep leg elevated while at rest and apply ice intermittently throughout the day. Instructed patient follow-up with primary care provider. Return precautions discussed at bedside. Will refer to orthopedics for any ongoing symptoms. Patient verbalized understanding of and agreement with plan. Differential Diagnosis Differential Diagnoses: The differential diagnosis associated with the pre sentation includes As per [facility] Independent Interpretation I performed an independent interpretation of an: Plain X-Ray Interpretation: Mild degenerative changes to right knee Radiology Impression Discussion of test interpretation with radiology: I have reviewed the radiologist's reading. Radiologist Impression: XR/XR knee RT 4V IMPRESSION: Mild degenerative changes in the lateral compartment. External Record Review External record reviewed: Inpatient record, Office record and Outpatient record Prescription Management I considered prescription management with: Pain Medication Discharge Plan Discharge Clinical Impression: Strain of right knee Patient Disposition: Home, Self-Care Instructions: Knee Pain (ED), R.I.C.E. Treatment (ED), Arthritis (ED) Additional Instructions: You have been evaluated in the emergency department today for knee pain. Your evaluation did not find evidence of medical conditions requiring emergent intervention at this time. Please rest, ice, and elevate your knee, and resume normal activities as tolerated. You are being prescribed naproxen which you should take as ordered. You can also take 650mg Tylenol every 6 hours as needed for pain. Please schedule an appointment for follow-up with your primary care provider this week. Return to the emergency department if you experience worsening pain, numbness, tingling, change of color in your leg, or any other concerning symptoms. If your symptoms persist beyond the next 1-2 weeks, please call the orthopedic office to schedule an appointment. Prescriptions: New naproxen 500 mg tablet 500 mg PO BID Qty: 28 0RF No Action (DME) lancets [FreeStyle Lancets] 28 gauge misc topical DAILY metformin 1,000 mg tablet 1 tab PO BID Qty: 60 0RF metoprolol succinate 25 mg tablet extended release 24 hr 1 tab PO DAILY Qty: 30 0RF atorvastatin 40 mg tablet 40 mg PO DAILY Jardiance 25 mg tablet 25 mg PO DAILY Trulicity 3 mg/0.5 mL pen injector 3 mg subcut QWEEK quetiapine 25 mg Tablet 25 mg PO BID PRN (Reason: anxiety) Qty: 60 0RF benztropine 0.5 mg Tablet 1.5 mg PO BID Qty: 90 0RF clonazepam 1 mg Tablet 1 mg PO TID Qty: 90 0RF mirtazapine 45 mg tablet 22.5 mg PO BEDTIME Qty: 15 0RF clozapine 100 mg tablet 300 mg PO BEDTIME Qty: 45 1RF gabapentin 800 mg tablet 1 tab PO TID Qty: 90 0RF trazodone 100 mg tablet 200 mg PO BEDTIME Qty: 60 0RF hydroxyzine HCl 25 mg tablet 1 tab PO DAILY PRN (Reason: Anxiety) Qty: 30 0RF gabapentin 100 mg capsule 100 mg PO TID Qty: 90 0RF divalproex 250 mg Tablet Extended Release 24 Hr 750 mg PO BID Qty: 180 0RF quetiapine 50 mg Tablet 50 mg PO BEDTIME PRN (Reason: insomnia) Qty: 30 0RF Referrals: [facility] [place] [facility] [Provider Group] Print Language: Spanish
[2023-12-02 14:14] VITALS: BP 121/78; PULSE 99; RESP 20; TEMP 36.8; O2SAT 97
== END 2023-12-02 14:15 | disposition home or self-care (01) ==
PROVIDERS: Emergency Provider Emergency Medicine; PCP Family Medicine
DX: S86.911A Strain of unspecified muscle(s) and tendon(s) at lower leg level, right leg, initial encounter (principal); M25.561 Pain in right knee; X58.XXXA Exposure to other specified factors, initial encounter; Y93.9 Activity, unspecified; Y92.9 Unspecified place or not applicable; Y99.8 Other external cause status; Z79.899 Other long term (current) drug therapy
CPT/HCPCS: 73564; 99282; 99283

== ENCOUNTER 2023-12-08 10:56 | Outpatient (REF) | payer MEDICARE, MEDICAID, SELFPAY ==
[2023-12-08 11:12] LABS: MANUAL DIFF FLAG NO
[2023-12-08 11:46] LABS: Basophils Absolute Auto 0.1 X10*3/uL (0.0-0.2); Basophils Percent Auto 0.5 % (0-2); Eosinophils Absolute Auto 0.6 X10*3/uL (0.0-0.4); Eosinophils Percent Auto 5.7 % (0-4); Hematocrit 49.7 % (42.0-52.0); Hemoglobin 15.7 g/dl (14.0-18.0); Imm Gran Abs Auto 0.03 X10*3/uL (0.00-0.03); Imm Gran Pct Auto 0.3 % (0.0-0.4); Lymphocytes Absolute Auto 1.6 X10*3/uL (1.2-4.9); Lymphocytes Percent Auto 14.9 % (20-40); Mean Corpuscular HGB Conc 31.6 g/dl (31.0-36.0); Mean Corpuscular Hemoglobin 27.6 pg (27.0-33.0); Mean Corpuscular Volume 87.3 fL (80.0-98.0); Mean Platelet Volume 9.2 fL (9.4-12.4); Monocytes Percent Auto 8.8 % (2-11); Neutrophils Absolute Auto 7.5 x10*3/uL (2.0-8.3); Neutrophils Percent Auto 69.8 % (45-73); Platelet Count 206 X10*3/uL (160-400); Red Blood Count 5.69 X10*6/uL (4.60-5.80); Red Cell Distribution Width 13.8 % (11.0-16.0); White Blood Count 10.8 X10*3/uL (4.8-10.8)
[2023-12-08 12:13] LABS: Valproate < 12.5 mcg/mL (50.0-100.0)
[2023-12-13 04:54] LABS: Clozapine (Clozaril) 888 mcg/L; Norclozapine 388 mcg/L (25-400)
== END 2023-12-08 10:57 | disposition home or self-care (01) ==
LOC: HO.LABR 10:56
PROVIDERS: PCP Family Medicine; Visit Provider Clinical Nurse Specialist Psychiatric/Mental Health, Adult
DX: Z79.899 Other long term (current) drug therapy (principal)
CPT/HCPCS: 36415; 80159; 80164; 85025

== ENCOUNTER 2024-01-10 12:54 | Outpatient (REF) | payer MEDICARE, MEDICAID, SELFPAY ==
[2024-01-10 14:23] LABS: Valproate 86.4 mcg/mL (50.0-100.0)
[2024-01-13 14:24] LABS: Clozapine (Clozaril) 564 mcg/L; Norclozapine 264 mcg/L (25-400)
== END 2024-01-10 12:55 | disposition home or self-care (01) ==
LOC: HO.LABR 12:54
PROVIDERS: PCP Family Medicine; Visit Provider Clinical Nurse Specialist Psychiatric/Mental Health, Adult
DX: Z79.899 Other long term (current) drug therapy (principal)
CPT/HCPCS: 36415; 80159; 80164

== ENCOUNTER 2024-01-19 12:30 | Outpatient (REF) | payer MEDICARE, MEDICAID, SELFPAY ==
--- NOTE | ~2024-01-19 | XR_ITS ---
EXAMINATION: XR LUMBOSACRAL SPINE WITH OBLIQUES CLINICAL INFORMATION: Orders states lower extremity weakness. Patient states both legs have been experiencing weakness for 6 months. Patient denies injury. Difficulty positioning patient due to his limited mobility and disability. Best possible images attempted. COMPARISON: KUB of 09/07/2012. TECHNIQUE: 6 views of the lumbar spine. FINDINGS: Mild dextroscoliosis of the lumbar spine. Bilateral sacroiliac joints are maintained. Facet arthritis in the lower lumbar spine. Moderate lumbar spondylosis with loss of disc space height at L4-L5 and L5-S1. Facet arthritis in the lower lumbar spine. XR/XR lumbar spine 4V min IMPRESSION: Moderate lumbar spondylosis with loss of disc space height at L4-L5 and L5-S1.
== END 2024-01-19 12:31 | disposition home or self-care (01) ==
LOC: HO.HHCX 12:30
PROVIDERS: Visit Provider Family Medicine
DX: Z13.89 Encounter for screening for other disorder (principal)
CPT/HCPCS: 72110

== ENCOUNTER 2024-01-19 12:55 | Outpatient (REF) | payer MEDICARE, MEDICAID, SELFPAY ==
[2024-01-19 17:16] LABS: Alanine Aminotransferase 9 U/L (0-40); Albumin Level 4.5 g/dL (3.5-5.0); Alkaline Phosphatase 111 U/L (39-117); Anion Gap 15 (12-20); Aspartate Amino Transferase 15 U/L (5-37); Bilirubin Direct 0.2 mg/dL (0.0-0.5); Bilirubin Total 0.4 mg/dL (0.0-1.0); Blood Urea Nitrogen 11 mg/dL (9-16); Calcium 9.5 mg/dL (8.4-10.2); Carbon Dioxide 26 mmol/L (22-29); Chloride 106 mmol/L (96-108); Estimated Glomerular Filt Rate > 60; Glucose Random 124 mg/dL (60-115); Lactate Dehydrogenase 218 U/L (118-273); Potassium 4.3 mmol/L (3.3-5.1); Sodium 143 mmol/L (135-145); Total Protein 7.3 g/dL (6.5-8.0)
[2024-01-19 17:34] LABS: TSH reflex Free T4 1.23 uIU/mL (0.32-4.0)
[2024-01-19 17:36] LABS: Folate 11.5 ng/mL (> or = 4.0); Vitamin B12 756 pg/mL (200-900)
[2024-01-19 18:01] LABS: Erythrocyte Sedimentation Rate 5 MM/HR (0-15)
[2024-01-20 08:58] LABS: HIV AB/AG Nonreactive (Nonreactive); HIV Num 1 0.08 S/CO (0.00-0.99); ~HepC Num1 0.12 S/CO (0.00-0.79); ~Hepatitis C Antibody Nonreactive (Nonreactive)
[2024-01-25 20:33] LABS: CK-BB None Detected (None Detected); CK-MB 0 % (<5); CK-MM 100 % (95-100); Creatine Kinase,Total,Serum 56 U/L (44-196)
[2024-01-28 14:49] LABS: Aldolase 5.9 U/L (<=8.1)
== END 2024-01-19 12:56 | disposition home or self-care (01) ==
LOC: HO.HHCL 12:55
PROVIDERS: Visit Provider Family Medicine
DX: E11.65 Type 2 diabetes mellitus with hyperglycemia (principal); R53.1 Weakness; Z11.3 Encounter for screening for infections with a predominantly sexual mode of transmission; Z91.09 Other allergy status, other than to drugs and biological substances
CPT/HCPCS: 36415; 72110; 80048; 80076; 82085; 82552; 82607; 82746; 83615; 84443; 85652; 86803; 87389

== ENCOUNTER 2024-02-02 11:02 | Outpatient (REF) | payer MEDICARE, MEDICAID, SELFPAY ==
[2024-02-02 11:14] LABS: MANUAL DIFF FLAG NO
[2024-02-02 11:47] LABS: Basophils Absolute Auto 0.1 X10*3/uL (0.0-0.2); Basophils Percent Auto 0.8 % (0-2); Eosinophils Absolute Auto 0.2 X10*3/uL (0.0-0.4); Eosinophils Percent Auto 2.4 % (0-4); Hematocrit 50.5 % (42.0-52.0); Hemoglobin 16.2 g/dl (14.0-18.0); Imm Gran Abs Auto 0.03 X10*3/uL (0.00-0.03); Imm Gran Pct Auto 0.3 % (0.0-0.4); Lymphocytes Absolute Auto 2.6 X10*3/uL (1.2-4.9); Lymphocytes Percent Auto 27.9 % (20-40); Mean Corpuscular HGB Conc 32.1 g/dl (31.0-36.0); Mean Corpuscular Hemoglobin 28.2 pg (27.0-33.0); Neutrophils Absolute Auto 5.3 x10*3/uL (2.0-8.3); Neutrophils Percent Auto 57.6 % (45-73); Platelet Count 201 X10*3/uL (160-400); Red Blood Count 5.74 X10*6/uL (4.60-5.80); Red Cell Distribution Width 14.7 % (11.0-16.0); White Blood Count 9.1 X10*3/uL (4.8-10.8)
[2024-02-02 12:14] LABS: Valproate 73.8 mcg/mL (50.0-100.0)
[2024-02-06 09:38] LABS: Clozapine (Clozaril) 565 mcg/L; Norclozapine 250 mcg/L (25-400)
== END 2024-02-02 11:03 | disposition home or self-care (01) ==
LOC: HO.LAB 11:02
PROVIDERS: PCP Family Medicine; Visit Provider Clinical Nurse Specialist Psychiatric/Mental Health, Adult
DX: Z79.899 Other long term (current) drug therapy (principal)
CPT/HCPCS: 36415; 80159; 80164; 85025

== ENCOUNTER 2024-02-09 23:31 | Inpatient (IN) | payer MEDICARE, MEDICAID, SELFPAY ==
[2024-02-09 23:40] VITALS: BP 150/99; PULSE 122; O2SAT 99; BMI 25.2
[2024-02-09 23:49] VITALS: BP 118/80; PULSE 112; RESP 18; TEMP 36.7; O2SAT 96
--- NOTE | 2024-02-09 23:54 | MHC.EDTECH ---
Patient came in BIBA,changed into hospital attire,vitals taken HR is elevated 112,RN aware. POC taken and is 158, Patient ambulated to the bathroom with a steady gait to attempt to give a urine sample,patient was unable to at this time,RN is aware call meeks in reach
[2024-02-09 23:56] LABS: Glucose, Whole Blood 158 mg/dL (60-115)
--- NOTE | 2024-02-09 23:57 | ED.PSYCH ---
HPI - Psych General Chief Complaint: Psychiatric Symptoms Stated Complaint: anxiety/depression Time Seen by Provider: 02/09/24 23:50 Source: patient Mode of arrival: EMS Limitations: no limitations History of Present Illness HPI Narrative: Patient is a 48-year-old male who presents to the emergency department via EMS for evaluation. He admits to increasing anxiety and worsening depression over the past 2 days and feeling of diffuse body restlessness. He states that typically in the past when he has felt this way his symptoms improve after watching television. However, this did not improve his symptoms as of recently. He denies any medications changes recently and states he has been compliant with his medications as prescribed. States he last met with his psychiatrist 2 weeks ago. He denies SI/HI. Denies auditory or visual hallucinations. Denies recreational drug or alcohol usage. Related Data Home Medications ?Medication ?Instructions ?Recorded ?Confirmed lancets 28 gauge (FreeStyle 07/22/20 09/23/23 Lancets) atorvastatin 40 mg tablet 40 mg PO DAILY 09/23/23 02/10/24 dulaglutide 3 mg/0.5 mL 3 mg subcut QWEEK 09/23/23 02/10/24 subcutaneous pen injector (Trulicity) empagliflozin 25 mg tablet 25 mg PO DAILY 09/23/23 02/10/24 (Jardiance) Previous Rx's ?Medication ?Instructions ?Recorded metformin 1,000 mg tablet 1 tab PO BID #60 tabs 12/08/21 metoprolol succinate 25 mg 1 tab PO DAILY #30 caps 12/08/21 tablet,extended release 24 hr benztropine 0.5 mg tablet 1.5 mg (3 x 0.5 mg) PO BID #90 tabs 10/12/23 clonazepam 1 mg tablet 1 mg PO TID #90 tabs 10/12/23 clozapine 100 mg tablet 300 mg (3 x 100 mg) PO BEDTIME #45 10/12/23 tabs divalproex 250 mg tablet,extended 750 mg (3 x 250 mg) PO BID #180 10/12/23 release 24 hr tabs gabapentin 100 mg capsule 100 mg PO TID #90 caps 10/12/23 gabapentin 800 mg tablet 1 tab PO TID #90 tabs 10/12/23 hydroxyzine HCl 25 mg tablet 1 tab PO DAILY PRN Anxiety #30 tabs 02/20/24 mirtazapine 45 mg tablet 22.5 mg (1/2 x 45 mg) PO BEDTIME 10/12/23 #15 tabs quetiapine 50 mg tablet 50 mg PO BEDTIME PRN insomnia #30 10/12/23 tabs trazodone 100 mg tablet 200 mg (2 x 100 mg) PO BEDTIME #60 10/12/23 tabs naproxen 500 mg tablet 500 mg PO BID #28 tabs 12/02/23 Allergies Allergy/AdvReac Type Severity Reaction Status Date / Time haloperidol [From Haldol] Allergy Intermediate Agitated Verified 02/09/24 23:42 lithium Allergy Intermediate Agitated Verified 02/09/24 23:42 oxcarbazepine Allergy Unknown RASH Verified 02/09/24 23:42 [From TRILEPTAL] fluphenazine [From Prolixin] Allergy akathisia Verified 02/09/24 23:42 [facility] Past Medical History Attestation statement: The following information was validated with the patient. Source: old records reviewed Medical History Acute anxiety Schizoaffective disorder Diabetes 1.5, managed as type 2 Social History Social History Household Members: Other Household Members Other:: patient has a room-mate Housing: Apartment Housing Other:: [facility] supported apartment Do you presently have visiting nurse or other home services: Yes Alcohol intake: former Patient Tobacco Use Status: Never used Tobacco Smoked in Last 30 Days: No Advance Directives: No Advance Directives Information Provided: No Do you have a plan to hurt others: No Plan service: No Sexual orientation: Straight/Heterosexual Physical Exam Vital Signs: Vital Signs: Last Vital Signs Temp 98.2 F 02/10/24 06:09 Pulse 80 02/10/24 06:09 Resp 16 02/10/24 06:09 BP 124/70 02/10/24 06:09 Pulse Ox 98 02/10/24 06:09 O2 Del Method Room Air 02/10/24 06:09 BMI result Body Mass Index 25.2 Appearance: Alert.?Oriented to person, place and time. Ill kempt. Flat affect. Eyes: Pupils equal, round and reactive to light.? ENT: Pharynx normal.?? Neck: Normal inspection.? Neck supple.?? CVS: Heart sounds normal. Normal heart rate and rhythm.? Pulses normal.?? Respiratory: No respiratory distress.? Lung sounds clear to auscultation bilaterally?? Abdomen: Soft and non-tender. Normoactive bowel sounds. Skin: Skin warm and dry.? Normal skin color.? Extremities: No lower extremity edema.? Neuro: Moves all extremities spontaneously. Sensation intact bilaterally. CN II-XII intact. No focal neuro deficits. Ambulates with normal steady gait. Course Reevaluation(s) Reevaluation #1: Advised by nursing staff at this time the patient is incontinent of urine and he is noted to be wearing an adult incontinence brief. On review of his record, during his hospital visit in September of 2023 urology was consulted secondary to urinary incontinence, then episodes were described as infrequent repeat urine culture was negative, and they had recommended holding on anticholinergics. On review of his pharmacy records he was started on benztropine recently. Time: 00:19 Reevaluation #2: Physician observation continued. VS stable, no acute events overnight, pending bed search, UA likely contaminated will wait on culture. Medications Administered Generic Name Dose Route Start Last Admin Trade Name Freq PRN Reason Stop Dose Admin Cefuroxime Axetil 250 mg 02/10/24 01:45 02/10/24 01:43 Cefuroxime Axetil 250 Mg Tablet PO 250 mg BID LAUREN Administration Medical Decision Making Medical Decision Making [facility] Narrative: Patient is a 48-year-old male with past medical history of anxiety, depression, schizoaffective disorder presenting to emergency department for evaluation of worsening anxiety depression as per HPI. He endorses feeling restless and anxious, he however appears with a very flat affect, rather stoic, slowly responds to questioning, but does respond appropriately. Concern at this time that he is decompensated, he appears ill kempt, odor , and incontinence of urine. Plan to obtain serum labs for medical clearance in addition to urinalysis rule out infection, and will refer to care team for evaluation as patient feels that he requires inpatient level of care at this time. Of note, patient did have an 18 day inpatient psych admission in September 2023 which he felt was very helpful for him Differential Diagnosis Differential Diagnoses: The differential diagnosis associated with the presentation includes (See narrative above) Admission/Observation Consideration of admission/observation: Escalation of care including admission/observation considered Patient placed in physician observation so that care team evaluation can ensue and safe disposition can be determined. Vital signs stable. No respiratory distress. Consult Healthcare Provider Management of the patient was discussed with: [facility] Provider Lab Data [facility] Lab Attestation statement: I reviewed the patient's lab results. CBC is without leukocytosis anemia or thrombocytopenia. No electrolyte derangement. No MAKENZIE. Mild non-anion hyperglycemia. LFTs within normal range. Urinalysis with pyuria 2+ urine bacteria, given persistent incontinence, will treat as urinary infection pending urine culture given history of prior 02/10/24 00:37 02/10/24 00:37 Labs: Lab Results 02/09/24 02/10/24 02/10/24 Range/Units 23:52 00:37 01:15 WBC 7.1 (4.8-10.8) X10*3/uL RBC 5.07 (4.60-5.80) X10*6/uL Hgb 14.4 (14.0-18.0) g/dl Hct 43.9 (42.0-52.0) % MCV 86.6 (80.0-98.0) fL MCH 28.4 (27.0-33.0) pg MCHC 32.8 (31.0-36.0) g/dl RDW 14.5 (11.0-16.0) % Plt Count 160 (160-400) X10*3/uL MPV 9.3 L (9.4-12.4) fL Immature Gran % (Auto) 0.4 (0.0-0.4) % Neut % (Auto) 58.6 (45-73) % Lymph % (Auto) 27.3 (20-40) % [place] % (Auto) 9.6 (2-11) % Eos % (Auto) 3.4 (0-4) % Baso % (Auto) 0.7 (0-2) % Lymph # (Auto) 1.9 (1.2-4.9) X10*3/uL [place] # (Auto) 0.7 (0.1-1.2) X10*3/uL Eos # (Auto) 0.2 (0.0-0.4) X10*3/uL Baso # (Auto) 0.1 (0.0-0.2) X10*3/uL Abs Immat Gran (auto) 0.03 (0.00-0.03) X10*3/uL Absolute Neuts (auto) 4.2 (2.0-8.3) x10*3/uL Absolute Nucleated RBC 0.000 (0.0-0.012) X10*3/uL Nucleated RBC % (auto) 0.0 (0.0-0.2) /100WBC Sodium 142 (135-145) mmol/L Potassium 3.9 (3.3-5.1) mmol/L Chloride 104 (96-108) mmol/L Carbon Dioxide 23 (22-29) mmol/L Anion Gap 19 (12-20) BUN 22 H (9-16) mg/dL Creatinine 0.98 (0.5-1.4) mg/dL Estim Creat Clear Calc 95.1 Estimated GFR > 60 POC Glucose 158 H (60-115) mg/dL Random Glucose 147 H (60-115) mg/dL Calcium 9.0 (8.4-10.2) mg/dL Total Bilirubin 0.3 (0.0-1.0) mg/dL AST 15 (5-37) U/L ALT 13 (0-40) U/L Alkaline Phosphatase 92 (39-117) U/L Total Protein 6.6 (6.5-8.0) g/dL Albumin 3.9 (3.5-5.0) g/dL Urine Color Yellow Urine Appearance Clear Urine pH 6.0 (5.0-9.0) Ur Specific [place] >= 1.030 H (1.005-1.025) Urine Protein Negative (Neg-Trace) mg/dL Urine Glucose (UA) >=1000 H (Negative) mg/dL Urine Ketones 15 (Negative) mg/dL Urine Blood Negative (Negative) Urine Nitrite Negative (Negative) Ur Leukocyte Esterase Trace H (Negative) Urine RBC 0-2 (0-2) /HPF Urine WBC 11-20 H (0-5) /HPF Ur Squamous Epith Cells 3-5 (0-2) /HPF Urine Bacteria 2+ (None Seen) Hyaline Casts 0-2 (0-2) /LPF Urine Opiates Screen Not Detected (Not Detect) Ur Buprenorphine Scrn Not Detected (Not Detect) ng/mL Ur Oxycodone Screen Not Detected (Not Detect) ng/mL Urine Methadone Screen Not Detected (Not Detect) ng/mL Urine Fentanyl Screen Not Detected (Not Detect) Ur Barbiturates Screen Not Detected (Not Detect) Ur Phencyclidine Scrn Not Detected (Not Detect) Ur Amphetamines Screen Not Detected (Not Detect) U Benzodiazepines Scrn Not Detected (Not Detect) Urine Cocaine Screen Not Detected (Not Detect) U Marijuana (THC) Screen Not Detected (Not Detect) Ethyl Alcohol < 10 mg/dL External Record Review External record reviewed: Inpatient record See course narrative Prescription Management I considered prescription management with: Antibiotic Discharge Plan Discharge Clinical Impression: Schizoaffective disorder, Depression Patient Disposition: Still a Patient Prescriptions: No Action (DME) lancets [FreeStyle Lancets] 28 gauge misc topical DAILY metformin 1,000 mg tablet 1 tab PO BID Qty: 60 0RF metoprolol succinate 25 mg tablet extended release 24 hr 1 tab PO DAILY Qty: 30 0RF atorvastatin 40 mg tablet 40 mg PO DAILY Jardiance 25 mg tablet 25 mg PO DAILY Trulicity 3 mg/0.5 mL pen injector 3 mg subcut QWEEK quetiapine 25 mg Tablet 25 mg PO BID PRN (Reason: anxiety) Qty: 60 0RF benztropine 0.5 mg Tablet 1.5 mg PO BID Qty: 90 0RF clonazepam 1 mg Tablet 1 mg PO TID Qty: 90 0RF mirtazapine 45 mg tablet 22.5 mg PO BEDTIME Qty: 15 0RF clozapine 100 mg tablet 300 mg PO BEDTIME Qty: 45 1RF gabapentin 800 mg tablet 1 tab PO TID Qty: 90 0RF trazodone 100 mg tablet 200 mg PO BEDTIME Qty: 60 0RF hydroxyzine HCl 25 mg tablet 1 tab PO DAILY PRN (Reason: Anxiety) Qty: 30 0RF gabapentin 100 mg capsule 100 mg PO TID Qty: 90 0RF divalproex 250 mg Tablet Extended Release 24 Hr 750 mg PO BID Qty: 180 0RF quetiapine 50 mg Tablet 50 mg PO BEDTIME PRN (Reason: insomnia) Qty: 30 0RF naproxen 500 mg tablet 500 mg PO BID Qty: 28 0RF Interventions: [place]-Suicide Risk Severity Scale Last Done: 02/10/24 00:13 Print Language: Jordanian
--- NOTE | 2024-02-10 00:10 | PC.NURSE ---
Pt denies SI.HI . States only increasing anxiety / depression/ restlessness
--- NOTE | 2024-02-10 00:31 | MHC.EDTECH ---
Patient changed over into crisis attire,belongings list completed,all belongings are locked in locker 12 in the POD,daria mccormacke in locker 12
--- NOTE | 2024-02-10 00:38 | MHC.EDTECH ---
Labs drawn and sent to lab
[2024-02-10 00:41] LABS: Basophils Absolute Auto 0.1 X10*3/uL (0.0-0.2); Basophils Percent Auto 0.7 % (0-2); Eosinophils Absolute Auto 0.2 X10*3/uL (0.0-0.4); Eosinophils Percent Auto 3.4 % (0-4); Hematocrit 43.9 % (42.0-52.0); Hemoglobin 14.4 g/dl (14.0-18.0); Imm Gran Abs Auto 0.03 X10*3/uL (0.00-0.03); Imm Gran Pct Auto 0.4 % (0.0-0.4); Lymphocytes Absolute Auto 1.9 X10*3/uL (1.2-4.9); Lymphocytes Percent Auto 27.3 % (20-40); MANUAL DIFF FLAG NO; Mean Corpuscular HGB Conc 32.8 g/dl (31.0-36.0); Mean Corpuscular Hemoglobin 28.4 pg (27.0-33.0); Mean Corpuscular Volume 86.6 fL (80.0-98.0); Mean Platelet Volume 9.3 fL (9.4-12.4); Monocytes Absolute Auto 0.7 X10*3/uL (0.1-1.2); Monocytes Percent Auto 9.6 % (2-11); Neutrophils Absolute Auto 4.2 x10*3/uL (2.0-8.3); Neutrophils Percent Auto 58.6 % (45-73); Platelet Count 160 X10*3/uL (160-400); Red Blood Count 5.07 X10*6/uL (4.60-5.80); Red Cell Distribution Width 14.5 % (11.0-16.0); White Blood Count 7.1 X10*3/uL (4.8-10.8)
[2024-02-10 00:57] LABS: Alanine Aminotransferase 13 U/L (0-40); Albumin Level 3.9 g/dL (3.5-5.0); Alkaline Phosphatase 92 U/L (39-117); Anion Gap 19 (12-20); Aspartate Amino Transferase 15 U/L (5-37); Bilirubin Total 0.3 mg/dL (0.0-1.0); Blood Urea Nitrogen 22 mg/dL (9-16); Carbon Dioxide 23 mmol/L (22-29); Chloride 104 mmol/L (96-108); Creatinine Clr Calc Pharmacy 95.1; Estimated Glomerular Filt Rate > 60; Ethanol < 10 mg/dL; Glucose Random 147 mg/dL (60-115); Potassium 3.9 mmol/L (3.3-5.1); Sodium 142 mmol/L (135-145); Total Protein 6.6 g/dL (6.5-8.0)
--- NOTE | 2024-02-10 00:59 | PC.NURSE ---
PT PHARMACY NOT OPEN AT THIS TIME, MED LIST SENT IN VIA EMS WAS NOT ABLE TO USE IT WAS DATED 2017
--- NOTE | 2024-02-10 01:16 | MHC.EDTECH ---
Patient ambulated to the bathroom,urine sample obtained and sent to lab,patient was incont.of a large amount of urine ,pull up removed and willie-care given
[2024-02-10 01:21] LABS: Appearance Urine Clear; Color Urine Yellow; Glucose Urine UA >=1000 mg/dL (Negative); Leukocyte Esterase Urine Trace (Negative); Nitrite Urine Negative (Negative); Specific Gravity - Urine >= 1.030 (1.005-1.025); UMIC TRIGGER UACC YES; Urine Blood Negative (Negative); Urine Ketones 15 mg/dL (Negative); Urine Protein Negative (Neg-Trace)
[2024-02-10 01:27] LABS: Bacteria Urine 2+ (None Seen); Hyaline Casts Urine 0-2 /LPF (0-2); RBC Urine 0-2 /HPF (0-2); UACC Culture Trigger YES
[2024-02-10 01:35] LABS: Amphetamine Screen Urine Not Detected (Not Detect); Barbiturates, Urine Not Detected (Not Detect); Benzodiazepines Screen Urine Not Detected (Not Detect); Buprenorphine Scr Not Detected (Not Detect); Cannabinoid Screen Urine Not Detected (Not Detect); Cocaine Screen Urine Not Detected (Not Detect); Fentanyl, urine Not Detected (Not Detect); Methadone Screen, Urine Not Detected (Not Detect); Opiate Screen Urine Not Detected (Not Detect); Oxycodone Screen Urine Not Detected (Not Detect); Phencyclidine Screen Urine Not Detected (Not Detect)
[2024-02-10 01:40] VITALS: BP 114/63; PULSE 96; RESP 17; TEMP 36.1; O2SAT 95
[2024-02-10] MEDS: cefuroxime axetiL 250 MG TABLET PO ×3 (01:43→21:23)
--- NOTE | 2024-02-10 02:00 | PC.NURSE ---
CARE TEAM AT BEDSIDE
--- NOTE | 2024-02-10 02:26 | PC.NURSE ---
Spoke to care team, section 12 initiate due to severe restlessness anxiety, unable to care for himself. Denies SI/HI. No sitter required at this time. Pt is appropriately changed over . Belongings in locker 12
--- NOTE | 2024-02-10 02:51 | MHC.EDTECH ---
Patient ambulated to the bathroom with a steady gait
[2024-02-10 06:09] VITALS: BP 124/70; PULSE 80; RESP 16; TEMP 36.8; O2SAT 98
--- NOTE | 2024-02-10 06:09 | MHC.EDTECH ---
Hourly rounds and vitals completed,patient ambulated to the bathroom,resting comfortably at this time,call meeks in reach
--- NOTE | 2024-02-10 07:09 | PC.NURSE ---
Assumed care of patient at 0645, patient moved from ED 13 to 5. patient is ambulatory with steady gait, offering no complaints to this RN. Respirations even and unlabored, no apparent distress noted. Continue plan of care for inpatient bedsearch
[2024-02-10 07:31] LABS: Glucose, Whole Blood 97 mg/dL (60-115)
[2024-02-10] MEDS: Divalproex Sodium ER 250 MG TAB.ER.24H 750 MG PO ×2 (09:54→21:24)
[2024-02-10] MEDS: Metoprolol Succinate ER 25 MG TAB.ER.24H PO (09:55)
[2024-02-10] MEDS: Gabapentin 100 MG CAPSULE PO ×3 (09:55→21:25)
[2024-02-10] MEDS: Gabapentin 400 MG CAPSULE 800 MG PO ×3 (09:55→21:25)
[2024-02-10] MEDS: metFORMIN HCl 1,000 MG TABLET 1000 MG PO ×2 (09:55→21:24)
[2024-02-10] MEDS: Benztropine Mesylate 0.5 MG TABLET 1.5 MG PO ×2 (09:55→21:22)
[2024-02-10] MEDS: clonazePAM 1 MG TABLET PO ×3 (09:55→21:26)
[2024-02-10] MEDS: Atorvastatin Calcium 40 MG TABLET PO (09:55)
[2024-02-10 10:25] LABS: Valproate 82.1 mcg/mL (50.0-100.0)
[2024-02-10] MEDS: Empagliflozin 25 MG TABLET PO (10:40)
[2024-02-10 14:00] VITALS: RESP 16
[2024-02-10 15:42] VITALS: BMI 28.6
[2024-02-10 15:43] VITALS: BP 123/68; PULSE 88; RESP 18; TEMP 36.4; O2SAT 96
[2024-02-10 16:50] LABS: Valproate 78.1 mcg/mL (50.0-100.0)
--- NOTE | 2024-02-10 17:25 | PC.ADMIT ---
Ruddy Richardson was admitted to [facility] at 15:25 from the POD on a CV for treatment of schizoaffective and anxiety disorder. Precipitant of his admission is recent decompensation including increased restlessness, depression, anxiety, and self-care deficit. Ruddy is AO x4, calm and cooperative with the admission process. His current mood is depressed and anxious. His affect is sad, and his appearance is disheveled. He denies auditory and visual hallucinations but gives delayed responses as if he is thought blocking (unsure if this is his baseline or if there?s some underlying internal preoccupation). No delusional thoughts or statements expressed - pt?s thought process is linear. Pt denies having a plan or intent to harm himself or others. Pt feels comfortable talking with staff if SI/HI occurs. Pt reports decreased appetite due to his decompensated mood. Patient reports trouble falling asleep but no issues staying asleep. Pt?s focus is slightly distracted. Pt does not use any substances other than the ones prescribed and denies being an alcohol drinker. Tox screen came back negative for all substances. Pt has a medical history of type 2 DM. Pt has no physical complaints at the moment. Pt uses a cane for stability/mobility when he is out in the community but does not feel the need to use a cane while inpatient. Pt is currently on 15 minute checks and is psych + structured group appropriate.
[2024-02-10 19:40] VITALS: BP 109/71; PULSE 91; RESP 16; TEMP 36.2; O2SAT 97
[2024-02-10] MEDS: traZODone HCL 100 MG TABLET 200 MG PO (21:23)
[2024-02-10] MEDS: Mirtazapine 7.5 MG TABLET 22.5 MG PO (21:25)
[2024-02-10] MEDS: cloZAPine 100 MG TABLET 300 MG PO (21:26)
[2024-02-10 21:38] LABS: Glucose, Whole Blood 118 mg/dL (60-115)
[2024-02-11 07:50] VITALS: BP 119/73; PULSE 74; RESP 16; TEMP 36.6; O2SAT 98
[2024-02-11 08:33] LABS: Glucose, Whole Blood 85 mg/dL (60-115)
[2024-02-11] MEDS: Gabapentin 400 MG CAPSULE 800 MG PO ×3 (09:34→21:23)
[2024-02-11 09:35] VITALS: BP 119/73; PULSE 74
[2024-02-11] MEDS: metFORMIN HCl 1,000 MG TABLET 1000 MG PO ×2 (09:35→21:24)
[2024-02-11] MEDS: Divalproex Sodium ER 250 MG TAB.ER.24H 750 MG PO ×2 (09:35→21:23)
[2024-02-11] MEDS: Gabapentin 100 MG CAPSULE PO ×3 (09:35→21:23)
[2024-02-11] MEDS: Benztropine Mesylate 0.5 MG TABLET 1.5 MG PO ×2 (09:35→21:21)
[2024-02-11] MEDS: Metoprolol Succinate ER 25 MG TAB.ER.24H PO (09:35)
[2024-02-11] MEDS: cefuroxime axetiL 250 MG TABLET PO ×2 (09:36→21:22)
[2024-02-11] MEDS: clonazePAM 1 MG TABLET PO ×3 (09:36→21:22)
[2024-02-11] MEDS: Empagliflozin 25 MG TABLET PO (09:36)
[2024-02-11] MEDS: Atorvastatin Calcium 40 MG TABLET PO (09:36)
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
--- NOTE | 2024-02-11 14:21 | MHC.CLN ---
NUTRITION CONSULT FOR PROPER ENSURE SUPPLEMENT. TAKES HIGH PROTEIN SUPPLEMENT AT HOME. RECOMMEND ENSURE MAX PROTEIN BID. PROVIDES 300 KCALS, 60 G PROTEIN. SUPPLEMENT IS A LOWER CARBOHYDRATE FORMULA APPROPRIATE FOR DM.
[2024-02-11 20:07] VITALS: BP 119/73; PULSE 109; RESP 16; TEMP 36.4; O2SAT 97
[2024-02-11 21:22] LABS: Glucose, Whole Blood 174 mg/dL (60-115)
[2024-02-11] MEDS: cloZAPine 100 MG TABLET 300 MG PO (21:22)
[2024-02-11] MEDS: Mirtazapine 7.5 MG TABLET 22.5 MG PO (21:24)
[2024-02-11] MEDS: traZODone HCL 50 MG TABLET 150 MG PO (21:25)
[2024-02-11] MEDS: QUEtiapine Fumarate 50 MG TABLET PO (21:25)
[2024-02-12 08:00] VITALS: BP 120/72; PULSE 82; RESP 16; TEMP 36.2; O2SAT 98
--- NOTE | 2024-02-12 08:34 | P.PNPSI_ITS ---
Subjective Subjective Date of Service: 02/12/24 Reason For Visit: anxiety/depression Subjective Notes: Conditional Voluntary Interim History: 48 yo lying in bed, co dep/anxiety- mostly answers ? yes or no - not really engaging in care- Nursing reports patient needs help with all ADLS appears cog delayed- taking meds , uses a walker- nursing reports tremor on change of position going to sit or stand- Medication Compliance: Yes Side effects from medications: No Attending Groups: No Review of Systems Acute medical concerns: No Mental Status Exam Mental Status Exam Patient Appearance: Disheveled and Unkempt Patient Orientation: Person and Place Level of Consciousness: Awake and Drowsy Patient Behavior: Dependent and Passive Mood Description: Apathetic Affect Description: Blunted Patient Cognition Impaired: Yes Ability to Follow Directions: Fair (with nursing support) Speech Pattern: Mumbled Thought Process: Intact Thought Content: positive for [place] Depressive Symptoms: Increased Anxiety, Diff. Making Decisions and Sleeping More Than Usual Abnormal Motor Activity Signs and Symptoms: Psychomotor Retardation Judgement: Poor Diagnostics Vital Signs (24Hr): Vital Signs - 24 hr 02/11/24 09:35 02/11/24 20:07 02/12/24 08:00 Temperature 97.5 F 97.2 F Pulse Rate 74 109 H 82 Respiratory Rate 16 16 Blood Pressure 119/73 119/73 120/72 Pulse Oximetry 97 98 Oxygen Delivery Method Room Air Room Air BMI result Body Mass Index 28.6 Labs 02/10/24 00:37 02/10/24 00:37 Labs: Laboratory Results - last 48 hr 02/10/24 02/10/24 02/10/24 09:47 16:32 21:33 POC Glucose 118 H Valproic Acid 82.1 78.1 02/11/24 02/11/24 08:28 21:18 POC Glucose 85 174 H Valproic Acid Medications Medications Current Medications Acetaminophen (Acetaminophen 325 Mg Tablet) 650 mg PO Q6H PRN PRN Reason: Headache/Pain Mild Scale (1-3) Al Hydroxide/Mg Hydroxide (Magnesium Hydrox/Alum Hydrox 30 Ml Oral.Susp) 30 ml PO Q6H PRN PRN Reason: Heartburn/Nausea Atorvastatin Calcium (Atorvastatin Calcium 40 Mg Tablet) 40 mg PO DAILY [facility] Last Admin: 02/11/24 09:36 Dose: 40 mg Benztropine Mesylate (Benztropine Mesylate 0.5 Mg Tablet) 1.5 mg PO BID [facility] Last Admin: 02/11/24 21:21 Dose: 1.5 mg Cefuroxime Axetil (Cefuroxime Axetil 250 Mg Tablet) 250 mg PO BID [facility] Last Admin: 02/11/24 21:22 Dose: 250 mg Clonazepam (Clonazepam 1 Mg Tablet) 1 mg PO TID [facility] Last Admin: 02/11/24 21:22 Dose: 1 mg Clozapine (Clozapine 100 Mg Tablet) 300 mg PO BEDTIME [facility] Last Admin: 02/11/24 21:22 Dose: 300 mg Divalproex Sodium (Divalproex Sodium Er 250 Mg Tab.Er.24h) 750 mg PO BID [facility] Last Admin: 02/11/24 21:23 Dose: 750 mg Empagliflozin (Empagliflozin 25 Mg Tablet) 25 mg PO DAILY [facility] Last Admin: 02/11/24 09:36 Dose: 25 mg Gabapentin (Gabapentin 100 Mg Capsule) 100 mg PO TID [facility] Last Admin: 02/11/24 21:23 Dose: 100 mg Gabapentin (Gabapentin 400 Mg Capsule) 800 mg PO TID [facility] Last Admin: 02/11/24 21:23 Dose: 800 mg Hydroxyzine HCl (Hydroxyzine Hcl 25 Mg Tablet) 25 mg PO DAILY PRN PRN Reason: Anxiety Magnesium Hydroxide (Milk Of Magnesia 30 Ml Oral.Susp) 30 ml PO DAILY PRN PRN Reason: Constipation Metformin HCl (Metformin Hcl 1,000 Mg Tablet) 1,000 mg PO BID [facility] Last Admin: 02/11/24 21:24 Dose: 1,000 mg Metoprolol Succinate (Metoprolol Succinate Er 25 Mg Tab.Er.24h) 25 mg PO DAILY [facility]; Protocol Last Admin: 02/11/24 09:35 Dose: 25 mg Mirtazapine (Mirtazapine 7.5 Mg Tablet) 22.5 mg PO BEDTIME [facility] Last Admin: 02/11/24 21:24 Dose: 22.5 mg Nicotine Polacrilex (Nicotine Polacrilex 2 Mg Gum) 4 mg BUCCAL Q2H PRN PRN Reason: Nicotine Cravings Quetiapine Fumarate (Quetiapine Fumarate 50 Mg Tablet) 50 mg PO BEDTIME PRN PRN Reason: insomnia Last Admin: 02/11/24 21:25 Dose: 50 mg Trazodone HCl (Trazodone Hcl 100 Mg Tablet) 100 mg PO ONCE ONE Stop: 02/12/24 21:01 Trazodone HCl (Trazodone Hcl 50 Mg Tablet) 50 mg PO ONCE ONE Stop: 02/13/24 21:01 Allergies Allergies Allergy/AdvReac Type Severity Reaction Status Date / Time haloperidol [From Haldol] Allergy Intermediate Agitated Verified 02/09/24 23:42 lithium Allergy Intermediate Agitated Verified 02/09/24 23:42 oxcarbazepine Allergy Unknown RASH Verified 02/09/24 23:42 [From TRILEPTAL] fluphenazine [From Prolixin] Allergy akathisia Verified 02/09/24 23:42 Assessment & Plan Assessment & Plan (1) Urinary incontinence: Status: Acute Code(s): R32 - Unspecified urinary incontinence (2) Schizoaffective disorder: Status: Acute Code(s): F25.9 - Schizoaffective disorder, unspecified (3) Diabetes mellitus: Status: Acute Code(s): E11.9 - Type 2 diabetes mellitus without complications Plan pt's description of sensation sounds very similar to patients' usual description of akathisia. pt is not on a high potency neuroleptic, so other causes should be investigated. trazodone is a possible culprit and likely not necessary as pt is also on clozapine 300 mg at HS. will plan to taper trazodone and observe for resolution of restlessness. per note from last visit on [facility], pt should avoid anticholinergics. it is unclear why pt is on cogentin, as clozaril is already very anticholinergic and unlikely to cause EPS. once stably off trazodone would also plan to taper off of cogentin in effort to improve enuresis. pt also appears generally overmedicated, would try to streamline regimen. quite prominent sialorrhea, would also consider medical mgmt as needed. unclear if UTI affecting pt's mental status as well, will observe for changes with Tx of UTI. continue home meds for now aside from below. PT eval for gait anomaly. adding machine mechanic eval for proper supplement. taper trazodone to see if akathisia resolves (if it is indeed akathisia). plan to taper cogentin as likely not indicated as pt is on clozapine. UTI - on antibiotics pt quite withdrawn and dependent- limited engagement CTP Patient educated on: therapeutic strategies Informed Consent: further education needed Reason for continued inpatient stay Substantial Risk for: inability to function and rapid decompensation Time Spent With Patient Time: Total time managing care of this patient today ____ minutes.
[2024-02-12 09:02] LABS: Glucose, Whole Blood 93 mg/dL (60-115)
[2024-02-12] MEDS: Gabapentin 400 MG CAPSULE 800 MG PO ×3 (09:55→20:51)
[2024-02-12 09:56] VITALS: BP 120/72; PULSE 82
[2024-02-12] MEDS: cefuroxime axetiL 250 MG TABLET PO ×2 (09:56→20:51)
[2024-02-12] MEDS: metFORMIN HCl 1,000 MG TABLET 1000 MG PO ×2 (09:56→20:52)
[2024-02-12] MEDS: Metoprolol Succinate ER 25 MG TAB.ER.24H PO (09:56)
[2024-02-12] MEDS: Benztropine Mesylate 0.5 MG TABLET 1.5 MG PO ×2 (09:56→20:51)
[2024-02-12] MEDS: Atorvastatin Calcium 40 MG TABLET PO (09:56)
[2024-02-12] MEDS: Empagliflozin 25 MG TABLET PO (09:57)
[2024-02-12] MEDS: Gabapentin 100 MG CAPSULE PO ×3 (09:57→20:52)
[2024-02-12] MEDS: Divalproex Sodium ER 250 MG TAB.ER.24H 750 MG PO ×2 (09:57→20:52)
[2024-02-12] MEDS: clonazePAM 1 MG TABLET PO ×3 (09:57→20:51)
[2024-02-12 20:00] VITALS: RESP 18
[2024-02-12] MEDS: Mirtazapine 7.5 MG TABLET 22.5 MG PO (20:51)
[2024-02-12] MEDS: cloZAPine 100 MG TABLET 300 MG PO (20:51)
[2024-02-12] MEDS: traZODone HCL 100 MG TABLET PO (20:52)
[2024-02-12 21:05] LABS: Glucose, Whole Blood 225 mg/dL (60-115)
[2024-02-13 08:07] LABS: Cholesterol 93 mg/dL (<200); HDL Cholesterol 26 mg/dL (>40); LDL Cholesterol Calculated 50 mg/dL (<100); Triglycerides 87 mg/dL (<150)
[2024-02-13 08:10] LABS: Estimated Average Glucose 123 mg/dL; Hemoglobin A1c % 5.9 % (<6.0)
[2024-02-13 08:16] VITALS: BP 127/72; PULSE 93; RESP 18; TEMP 36.1; O2SAT 98
[2024-02-13 08:22] LABS: Thyroid Stimulating Hormone 1.01 uIU/mL (0.32-4.0)
[2024-02-13 08:37] LABS: Folate 9.1 ng/mL (> or = 4.0); Vitamin B12 634 pg/mL (200-900)
[2024-02-13 08:37] LABS: Glucose, Whole Blood 94 mg/dL (60-115)
[2024-02-13] MEDS: Gabapentin 400 MG CAPSULE 800 MG PO ×3 (09:25→20:17)
[2024-02-13] MEDS: clonazePAM 1 MG TABLET PO ×3 (09:25→20:17)
[2024-02-13 09:26] VITALS: BP 127/72; PULSE 93
[2024-02-13] MEDS: Metoprolol Succinate ER 25 MG TAB.ER.24H PO (09:26)
[2024-02-13] MEDS: cefuroxime axetiL 250 MG TABLET PO ×2 (09:26→20:17)
[2024-02-13] MEDS: Benztropine Mesylate 0.5 MG TABLET 1.5 MG PO ×2 (09:26→20:16)
[2024-02-13] MEDS: Empagliflozin 25 MG TABLET PO (09:26)
[2024-02-13] MEDS: Gabapentin 100 MG CAPSULE PO ×3 (09:26→20:17)
[2024-02-13] MEDS: Atorvastatin Calcium 40 MG TABLET PO (09:27)
[2024-02-13] MEDS: metFORMIN HCl 1,000 MG TABLET 1000 MG PO ×2 (09:27→20:26)
[2024-02-13] MEDS: Divalproex Sodium ER 250 MG TAB.ER.24H 750 MG PO ×2 (09:27→20:16)
--- NOTE | 2024-02-13 16:27 | P.PNPSI_ITS ---
Subjective Subjective Date of Service: 02/13/24 Reason For Visit: anxiety/depression Subjective Notes: Conditional Voluntary Interim History: 48 yo lying in bed, reported to be better in afternoon- harder to get engaged in am - nurses helping with adls and he is cooperative- Pt told me he lives in support apartment with roommate and [facility] provides support (not live in) He agrees with trying slightly lower dose of Clozapine- Somewhat distraught that Chris Morris leaving [facility] his prescriber- Medication Compliance: Yes Side effects from medications: Yes (xs fatigue in ams) Attending Groups: No Review of Systems Acute medical concerns: No Medical Review of Systems: unchanged Mental Status Exam Mental Status Exam Patient Appearance: Disheveled and Unkempt Patient Orientation: Person and Place Level of Consciousness: Awake and Drowsy Patient Behavior: Dependent and Passive Mood Description: Apathetic Affect Description: Blunted Patient Cognition Impaired: Yes Ability to Follow Directions: Fair (with nursing support) Speech Pattern: Mumbled Thought Process: Intact Thought Content: positive for [place] Depressive Symptoms: Increased Anxiety, Diff. Making Decisions and Sleeping More Than Usual Abnormal Motor Activity Signs and Symptoms: Psychomotor Retardation Judgement: Poor Diagnostics Vital Signs (24Hr): Vital Signs - 24 hr 02/12/24 20:00 02/13/24 08:16 02/13/24 09:26 Temperature 97.0 F Pulse Rate 93 93 Respiratory Rate 18 18 Blood Pressure 127/72 127/72 Pulse Oximetry 98 Oxygen Delivery Method Room Air BMI result Body Mass Index 28.6 Labs 02/10/24 00:37 02/10/24 00:37 Labs: Laboratory Results - last 48 hr 02/11/24 02/12/24 02/12/24 21:18 08:58 20:47 POC Glucose 174 H 93 225 H Estimat Average Glucose Hemoglobin A1c % Triglycerides Cholesterol LDL Cholesterol, Calc HDL Cholesterol Vitamin B12 Folate TSH Free T4 02/13/24 02/13/24 07:01 08:31 POC Glucose 94 Estimat Average Glucose 123 Hemoglobin A1c % 5.9 Triglycerides 87 Cholesterol 93 LDL Cholesterol, Calc 50 HDL Cholesterol 26 L Vitamin B12 634 Folate 9.1 TSH 1.01 Free T4 1.00 Medications Medications Current Medications Acetaminophen (Acetaminophen 325 Mg Tablet) 650 mg PO Q6H PRN PRN Reason: Headache/Pain Mild Scale (1-3) Al Hydroxide/Mg Hydroxide (Magnesium Hydrox/Alum Hydrox 30 Ml Oral.Susp) 30 ml PO Q6H PRN PRN Reason: Heartburn/Nausea Atorvastatin Calcium (Atorvastatin Calcium 40 Mg Tablet) 40 mg PO DAILY [facility] Last Admin: 02/13/24 09:27 Dose: 40 mg Benztropine Mesylate (Benztropine Mesylate 0.5 Mg Tablet) 1.5 mg PO BID [facility] Last Admin: 02/13/24 09:26 Dose: 1.5 mg Cefuroxime Axetil (Cefuroxime Axetil 250 Mg Tablet) 250 mg PO BID [facility] Last Admin: 02/13/24 09:26 Dose: 250 mg Clonazepam (Clonazepam 1 Mg Tablet) 1 mg PO TID [facility] Last Admin: 02/13/24 15:45 Dose: 1 mg Clozapine 200 mg/ Clozapine 50 (mg) 250 mg PO BEDTIME [facility] Divalproex Sodium (Divalproex Sodium Er 250 Mg Tab.Er.24h) 750 mg PO BID [facility] Last Admin: 02/13/24 09:27 Dose: 750 mg Empagliflozin (Empagliflozin 25 Mg Tablet) 25 mg PO DAILY [facility] Last Admin: 02/13/24 09:26 Dose: 25 mg Gabapentin (Gabapentin 100 Mg Capsule) 100 mg PO TID [facility] Last Admin: 02/13/24 15:45 Dose: 100 mg Gabapentin (Gabapentin 400 Mg Capsule) 800 mg PO TID [facility] Last Admin: 02/13/24 15:45 Dose: 800 mg Hydroxyzine HCl (Hydroxyzine Hcl 25 Mg Tablet) 25 mg PO DAILY PRN PRN Reason: Anxiety Magnesium Hydroxide (Milk Of Magnesia 30 Ml Oral.Susp) 30 ml PO DAILY PRN PRN Reason: Constipation Metformin HCl (Metformin Hcl 1,000 Mg Tablet) 1,000 mg PO BID [facility] Last Admin: 02/13/24 09:27 Dose: 1,000 mg Metoprolol Succinate (Metoprolol Succinate Er 25 Mg Tab.Er.24h) 25 mg PO DAILY [facility]; Protocol Last Admin: 02/13/24 09:26 Dose: 25 mg Mirtazapine (Mirtazapine 7.5 Mg Tablet) 22.5 mg PO BEDTIME [facility] Last Admin: 02/12/24 20:51 Dose: 22.5 mg Nicotine Polacrilex (Nicotine Polacrilex 2 Mg Gum) 4 mg BUCCAL Q2H PRN PRN Reason: Nicotine Cravings Quetiapine Fumarate (Quetiapine Fumarate 50 Mg Tablet) 50 mg PO BEDTIME PRN PRN Reason: insomnia Last Admin: 02/11/24 21:25 Dose: 50 mg Trazodone HCl (Trazodone Hcl 50 Mg Tablet) 50 mg PO ONCE ONE Stop: 02/13/24 21:01 Allergies Allergies Allergy/AdvReac Type Severity Reaction Status Date / Time haloperidol [From Haldol] Allergy Intermediate Agitated Verified 02/09/24 23:42 lithium Allergy Intermediate Agitated Verified 02/09/24 23:42 oxcarbazepine Allergy Unknown RASH Verified 02/09/24 23:42 [From TRILEPTAL] fluphenazine [From Prolixin] Allergy akathisia Verified 02/09/24 23:42 Assessment & Plan Assessment & Plan (1) Urinary incontinence: Status: Acute Code(s): R32 - Unspecified urinary incontinence (2) Schizoaffective disorder: Status: Acute Code(s): F25.9 - Schizoaffective disorder, unspecified (3) Diabetes mellitus: Status: Acute Code(s): E11.9 - Type 2 diabetes mellitus without complications Plan pt's description of sensation sounds very similar to patients' usual description of akathisia. pt is not on a high potency neuroleptic, so other causes should be investigated. trazodone is a possible culprit and likely not necessary as pt is also on clozapine 300 mg at HS. will plan to taper trazodone and observe for resolution of restlessness. per note from last visit on [facility], pt should avoid anticholinergics. it is unclear why pt is on cogentin, as clozaril is already very anticholinergic and unlikely to cause EPS. once stably off trazodone would also plan to taper off of cogentin in effort to improve enuresis. pt also appears generally overmedicated, would try to streamline regimen. quite prominent sialorrhea, would also consider medical mgmt as needed. unclear if UTI affecting pt's mental status as well, will observe for changes with Tx of UTI. continue home meds for now aside from below. PT eval for gait anomaly. plaster tender eval for proper supplement. taper trazodone to see if akathisia resolves (if it is indeed akathisia). plan to taper cogentin as likely not indicated as pt is on clozapine. UTI - on antibiotics 02/11/- pt quite withdrawn and dependent- limited engagement CTP 02/12 clozapine to 250mg see if less am sedation- Patient educated on: medication risk/benefits Informed Consent: understands Reason for continued inpatient stay Substantial Risk for: inability to function and rapid decompensation Time Spent With Patient Time: Total time managing care of this patient today ____ minutes.
[2024-02-13 20:00] VITALS: BP 111/71; PULSE 99; RESP 17; TEMP 36.3; O2SAT 97
[2024-02-13] MEDS: cloZAPine 200 MG, cloZAPine 50 MG 250 MG PO (20:16)
[2024-02-13] MEDS: QUEtiapine Fumarate 50 MG TABLET PO (20:17)
[2024-02-13] MEDS: traZODone HCL 50 MG TABLET PO (20:17)
[2024-02-13] MEDS: Mirtazapine 7.5 MG TABLET 22.5 MG PO (20:17)
[2024-02-14 05:14] LABS: Clozapine (Clozaril) 530 mcg/L; Norclozapine 185 mcg/L (25-400)
[2024-02-14 08:00] VITALS: BP 120/80; PULSE 88; TEMP 36.5; O2SAT 95
[2024-02-14 08:12] LABS: Glucose, Whole Blood 91 mg/dL (60-115)
[2024-02-14] MEDS: metFORMIN HCl 1,000 MG TABLET 1000 MG PO ×2 (09:24→21:27)
[2024-02-14] MEDS: clonazePAM 1 MG TABLET PO ×3 (09:24→21:26)
[2024-02-14 09:25] VITALS: BP 120/80; PULSE 88
[2024-02-14] MEDS: Metoprolol Succinate ER 25 MG TAB.ER.24H PO (09:25)
[2024-02-14] MEDS: Gabapentin 100 MG CAPSULE PO ×3 (09:25→21:27)
[2024-02-14] MEDS: Divalproex Sodium ER 250 MG TAB.ER.24H 750 MG PO ×2 (09:26→21:26)
[2024-02-14] MEDS: Atorvastatin Calcium 40 MG TABLET PO (09:26)
[2024-02-14] MEDS: Benztropine Mesylate 0.5 MG TABLET 1.5 MG PO ×2 (09:28→21:25)
[2024-02-14] MEDS: Gabapentin 400 MG CAPSULE 800 MG PO ×3 (09:28→21:27)
[2024-02-14] MEDS: Empagliflozin 25 MG TABLET PO (09:29)
[2024-02-14] MEDS: cefuroxime axetiL 250 MG TABLET PO ×2 (09:29→21:26)
--- NOTE | 2024-02-14 16:00 | P.PNPSI_ITS ---
Subjective Subjective Date of Service: 02/14/24 Reason For Visit: anxiety/depression Subjective Notes: Conditional Voluntary Interim History: Reviewed with Dr. De La Rosa. Keeping to self. Laying in bed. Guarded. Brief during 1:1. Pt reports feeling depressed and anxious ; pt stated, I wish I wasn't going through this. I'm trying to be patient to get better . Pt reports sleeping well. denies SI/HI/VH/AH. Medication Compliance: Yes Attending Groups: No Review of Systems Constitutional: Reports as per HPI Eyes: Reports as per HPI Reports as per HPI Cardiovascular: Reports as per HPI Respiratory: Reports as per HPI Gastrointestinal: Reports as per HPI Genitourinary: Reports as per HPI Musculoskeletal: Reports as per HPI Skin/Breast: Reports as per HPI Reports as per HPI Psychiatric: Reports as per HPI Endocrine: Reports as per HPI Hematologic/Lymphatic: Reports as per HPI Allergic/Immunologic: Reports as per HPI Mental Status Exam Mental Status Exam Narrative: Pt is alert and oriented; behavior is guarded,brief; dressed in hospital attire; mood is described as depressed and anxious and affect flat; eye contact appropriate; Speech is normal rate, low volume and not pressured; thought process is organized and goal directed; Thought content is on tx; denies SI/HI/VH/AH. Diagnostics Vital Signs (24Hr): Vital Signs - 24 hr 02/13/24 20:00 02/14/24 08:00 02/14/24 09:25 Temperature 97.4 F 97.7 F Pulse Rate 99 88 88 Respiratory Rate 17 Blood Pressure 111/71 120/80 120/80 Pulse Oximetry 97 95 Oxygen Delivery Method Room Air Room Air BMI result Body Mass Index 28.6 Labs 02/10/24 00:37 02/10/24 00:37 Labs: Laboratory Results - last 48 hr 02/10/24 02/12/24 02/13/24 09:47 20:47 07:01 POC Glucose 225 H Estimat Average Glucose 123 Hemoglobin A1c % 5.9 Triglycerides 87 Cholesterol 93 LDL Cholesterol, Calc 50 HDL Cholesterol 26 L Vitamin B12 634 Folate 9.1 TSH 1.01 Free T4 1.00 Clozapine 530 Norclozapine 185 02/13/24 02/14/24 08:31 08:06 POC Glucose 94 91 Estimat Average Glucose Hemoglobin A1c % Triglycerides Cholesterol LDL Cholesterol, Calc HDL Cholesterol Vitamin B12 Folate TSH Free T4 Clozapine Norclozapine Medications Medications Current Medications Acetaminophen (Acetaminophen 325 Mg Tablet) 650 mg PO Q6H PRN PRN Reason: Headache/Pain Mild Scale (1-3) Al Hydroxide/Mg Hydroxide (Magnesium Hydrox/Alum Hydrox 30 Ml Oral.Susp) 30 ml PO Q6H PRN PRN Reason: Heartburn/Nausea Atorvastatin Calcium (Atorvastatin Calcium 40 Mg Tablet) 40 mg PO DAILY [facility] Last Admin: 02/14/24 09:26 Dose: 40 mg Benztropine Mesylate (Benztropine Mesylate 0.5 Mg Tablet) 1.5 mg PO BID [facility] Last Admin: 02/14/24 09:28 Dose: 1.5 mg Cefuroxime Axetil (Cefuroxime Axetil 250 Mg Tablet) 250 mg PO BID [facility] Last Admin: 02/14/24 09:29 Dose: 250 mg Clonazepam (Clonazepam 1 Mg Tablet) 1 mg PO TID [facility] Last Admin: 02/14/24 15:40 Dose: 1 mg Clozapine 200 mg/ Clozapine 50 (mg) 250 mg PO BEDTIME [facility] Last Admin: 02/13/24 20:16 Dose: 250 mg Divalproex Sodium (Divalproex Sodium Er 250 Mg Tab.Er.24h) 750 mg PO BID [facility] Last Admin: 02/14/24 09:26 Dose: 750 mg Empagliflozin (Empagliflozin 25 Mg Tablet) 25 mg PO DAILY [facility] Last Admin: 02/14/24 09:29 Dose: 25 mg Gabapentin (Gabapentin 100 Mg Capsule) 100 mg PO TID [facility] Last Admin: 02/14/24 15:41 Dose: 100 mg Gabapentin (Gabapentin 400 Mg Capsule) 800 mg PO TID [facility] Last Admin: 02/14/24 15:41 Dose: 800 mg Hydroxyzine HCl (Hydroxyzine Hcl 25 Mg Tablet) 25 mg PO DAILY PRN PRN Reason: Anxiety Magnesium Hydroxide (Milk Of Magnesia 30 Ml Oral.Susp) 30 ml PO DAILY PRN PRN Reason: Constipation Metformin HCl (Metformin Hcl 1,000 Mg Tablet) 1,000 mg PO BID [facility] Last Admin: 02/14/24 09:24 Dose: 1,000 mg Metoprolol Succinate (Metoprolol Succinate Er 25 Mg Tab.Er.24h) 25 mg PO DAILY [facility]; Protocol Last Admin: 02/14/24 09:25 Dose: 25 mg Mirtazapine (Mirtazapine 7.5 Mg Tablet) 22.5 mg PO BEDTIME [facility] Last Admin: 02/13/24 20:17 Dose: 22.5 mg Nicotine Polacrilex (Nicotine Polacrilex 2 Mg Gum) 4 mg BUCCAL Q2H PRN PRN Reason: Nicotine Cravings Quetiapine Fumarate (Quetiapine Fumarate 50 Mg Tablet) 50 mg PO BEDTIME PRN PRN Reason: insomnia Last Admin: 02/13/24 20:17 Dose: 50 mg Allergies Allergies Allergy/AdvReac Type Severity Reaction Status Date / Time haloperidol [From Haldol] Allergy Intermediate Agitated Verified 02/09/24 23:42 lithium Allergy Intermediate Agitated Verified 02/09/24 23:42 oxcarbazepine Allergy Unknown RASH Verified 02/09/24 23:42 [From TRILEPTAL] fluphenazine [From Prolixin] Allergy akathisia Verified 02/09/24 23:42 Assessment & Plan Assessment & Plan (1) Urinary incontinence: Status: Acute Code(s): R32 - Unspecified urinary incontinence (2) Schizoaffective disorder: Status: Acute Code(s): F25.9 - Schizoaffective disorder, unspecified (3) Diabetes mellitus: Status: Acute Code(s): E11.9 - Type 2 diabetes mellitus without complications Plan pt's description of sensation sounds very similar to patients' usual description of akathisia. pt is not on a high potency neuroleptic, so other causes should be investigated. trazodone is a possible culprit and likely not necessary as pt is also on clozapine 300 mg at HS. will plan to taper trazodone and observe for resolution of restlessness. per note from last visit on [facility], pt should avoid anticholinergics. it is unclear why pt is on cogentin, as clozaril is already very anticholinergic and unlikely to cause EPS. once stably off trazodone would also plan to taper off of cogentin in effort to improve enuresis. pt also appears generally overmedicated, would try to streamline regimen. quite prominent sialorrhea, would also consider medical mgmt as needed. unclear if UTI affecting pt's mental status as well, will observe for changes with Tx of UTI. continue home meds for now aside from below. PT eval for gait anomaly. gristmiller eval for proper supplement. taper trazodone to see if akathisia resolves (if it is indeed akathisia). plan to taper cogentin as likely not indicated as pt is on clozapine. UTI - on antibiotics 02/11/ pt quite withdrawn and dependent- limited engagement CTP 02/12 dec clozapine to 250mg see if less am sedation- 02/13: Keeping to self. Laying in bed. Guarded. Brief during 1:1. Pt reports feeling depressed and anxious ; pt stated, I wish I wasn't going through this. I'm trying to be patient to get better . Pt reports sleeping well. denies SI/HI/VH/AH. Continue current tx plan. Patient educated on: diagnosis and medication risk/benefits Informed Consent: understands Reason for continued inpatient stay Substantial Risk for: med/psych decompensation Time Spent With Patient Time: Total time managing care of this patient today _20___ minutes.
[2024-02-14] MEDS: Triamcinolone Acet 0.1 % Cream 15 GM TUBE 1 APPL TOPICAL (18:41)
[2024-02-14 20:46] LABS: Glucose, Whole Blood 197 mg/dL (60-115)
[2024-02-14 21:00] VITALS: BP 124/61; PULSE 105; RESP 16; TEMP 36.4; O2SAT 98
[2024-02-14] MEDS: Mirtazapine 7.5 MG TABLET 22.5 MG PO (21:25)
[2024-02-14] MEDS: cloZAPine 200 MG, cloZAPine 50 MG 250 MG PO (21:26)
[2024-02-15] VITALS (7 sets, daily range): BP systolic 107–116; BP diastolic 52–71; PULSE 80–108; RESP 16–20; TEMP 36.2–36.9; O2SAT 94–99
[2024-02-15 08:34] LABS: Glucose, Whole Blood 94 mg/dL (60-115)
[2024-02-15] MEDS: Atorvastatin Calcium 40 MG TABLET PO (08:34)
[2024-02-15] MEDS: cefuroxime axetiL 250 MG TABLET PO ×2 (08:34→21:36)
[2024-02-15] MEDS: Divalproex Sodium ER 250 MG TAB.ER.24H 750 MG PO ×2 (08:34→21:35)
[2024-02-15] MEDS: Benztropine Mesylate 0.5 MG TABLET 1.5 MG PO ×2 (08:34→21:36)
[2024-02-15] MEDS: metFORMIN HCl 1,000 MG TABLET 1000 MG PO ×2 (08:34→21:34)
[2024-02-15] MEDS: Metoprolol Succinate ER 25 MG TAB.ER.24H PO (08:35)
[2024-02-15] MEDS: Empagliflozin 25 MG TABLET PO (08:35)
[2024-02-15] MEDS: Gabapentin 400 MG CAPSULE 800 MG PO ×3 (08:36→21:34)
[2024-02-15] MEDS: Gabapentin 100 MG CAPSULE PO ×3 (08:36→21:34)
[2024-02-15] MEDS: clonazePAM 1 MG TABLET PO ×3 (08:37→21:35)
[2024-02-15] MEDS: Triamcinolone Acet 0.1 % Cream 15 GM TUBE 1 APPL TOPICAL (08:58)
--- NOTE | 2024-02-15 09:42 | HO.PSYCHPN ---
Subjective Subjective Date of Service: 02/15/24 Reason For Visit: anxiety/depression Subjective Notes: Conditional Voluntary Interim History: Pt slept through the night. He was actually up and attended 2 groups today. He reports he feels anxious nor sure if less than prior day or not. He denies SI/HI. He was not tapping feet nor showing any signs of akathisia. He denies constipation but would recommend monitoring BM as he is not only on clozapine but also on cogentin. He denies abdominal pain, vomiting or nausea. No signs of orthostatic changes of BP. Mental Status Exam Mental Status Exam Narrative: Pt is alert and oriented; behavior is guarded,brief; dressed in hospital attire; mood is described as depressed and anxious and affect flat; eye contact appropriate; Speech is normal rate, low volume and not pressured; thought process is organized and goal directed; Thought content is on tx; denies SI/HI/VH/AH. Diagnostics Vital Signs (24Hr): Vital Signs - 24 hr 02/14/24 21:00 02/15/24 07:10 02/15/24 07:52 Temperature 97.5 F 97.2 F 97.2 F Pulse Rate 105 H 82 82 Respiratory Rate 16 20 20 Blood Pressure 124/61 107/52 L 107/52 L Pulse Oximetry 98 94 94 Oxygen Delivery Method Room Air Room Air Room Air 02/15/24 08:35 Temperature Pulse Rate 80 Respiratory Rate Blood Pressure 111/61 Pulse Oximetry Oxygen Delivery Method BMI result Body Mass Index 28.6 Labs 02/10/24 00:37 02/10/24 00:37 Labs: Laboratory Results - last 48 hr 02/10/24 02/14/24 02/14/24 09:47 08:06 20:08 POC Glucose 91 197 H Clozapine 530 Norclozapine 185 02/15/24 07:54 POC Glucose 94 Clozapine Norclozapine Medications Medications Current Medications Acetaminophen (Acetaminophen 325 Mg Tablet) 650 mg PO Q6H PRN PRN Reason: Headache/Pain Mild Scale (1-3) Al Hydroxide/Mg Hydroxide (Magnesium Hydrox/Alum Hydrox 30 Ml Oral.Susp) 30 ml PO Q6H PRN PRN Reason: Heartburn/Nausea Atorvastatin Calcium (Atorvastatin Calcium 40 Mg Tablet) 40 mg PO DAILY [facility] Last Admin: 02/15/24 08:34 Dose: 40 mg Benztropine Mesylate (Benztropine Mesylate 0.5 Mg Tablet) 1.5 mg PO BID [facility] Last Admin: 02/15/24 08:34 Dose: 1.5 mg Cefuroxime Axetil (Cefuroxime Axetil 250 Mg Tablet) 250 mg PO BID [facility] Last Admin: 02/15/24 08:34 Dose: 250 mg Clonazepam (Clonazepam 1 Mg Tablet) 1 mg PO TID [facility] Last Admin: 02/15/24 08:37 Dose: 1 mg Clozapine 200 mg/ Clozapine 50 (mg) 250 mg PO BEDTIME [facility] Last Admin: 02/14/24 21:26 Dose: 250 mg Divalproex Sodium (Divalproex Sodium Er 250 Mg Tab.Er.24h) 750 mg PO BID [facility] Last Admin: 02/15/24 08:34 Dose: 750 mg Empagliflozin (Empagliflozin 25 Mg Tablet) 25 mg PO DAILY [facility] Last Admin: 02/15/24 08:35 Dose: 25 mg Gabapentin (Gabapentin 100 Mg Capsule) 100 mg PO TID [facility] Last Admin: 02/15/24 08:36 Dose: 100 mg Gabapentin (Gabapentin 400 Mg Capsule) 800 mg PO TID [facility] Last Admin: 02/15/24 08:36 Dose: 800 mg Hydroxyzine HCl (Hydroxyzine Hcl 25 Mg Tablet) 25 mg PO DAILY PRN PRN Reason: Anxiety Magnesium Hydroxide (Milk Of Magnesia 30 Ml Oral.Susp) 30 ml PO DAILY PRN PRN Reason: Constipation Metformin HCl (Metformin Hcl 1,000 Mg Tablet) 1,000 mg PO BID [facility] Last Admin: 02/15/24 08:34 Dose: 1,000 mg Metoprolol Succinate (Metoprolol Succinate Er 25 Mg Tab.Er.24h) 25 mg PO DAILY [facility]; Protocol Last Admin: 02/15/24 08:35 Dose: 25 mg Mirtazapine (Mirtazapine 7.5 Mg Tablet) 22.5 mg PO BEDTIME [facility] Last Admin: 02/14/24 21:25 Dose: 22.5 mg Nicotine Polacrilex (Nicotine Polacrilex 2 Mg Gum) 4 mg BUCCAL Q2H PRN PRN Reason: Nicotine Cravings Quetiapine Fumarate (Quetiapine Fumarate 50 Mg Tablet) 50 mg PO BEDTIME PRN PRN Reason: insomnia Last Admin: 02/13/24 20:17 Dose: 50 mg Triamcinolone Acetonide (Triamcinolone Acet 0.1 % Cream 15 Gm Tube) 1 appl TOPICAL DAILY [facility]; Protocol Last Admin: 02/15/24 08:58 Dose: 1 appl Allergies Allergies Allergy/AdvReac Type Severity Reaction Status Date / Time haloperidol [From Haldol] Allergy Intermediate Agitated Verified 02/09/24 23:42 lithium Allergy Intermediate Agitated Verified 02/09/24 23:42 oxcarbazepine Allergy Unknown RASH Verified 02/09/24 23:42 [From TRILEPTAL] fluphenazine [From Prolixin] Allergy akathisia Verified 02/09/24 23:42 Assessment & Plan Assessment & Plan (1) Schizoaffective disorder: Status: Acute Code(s): F25.9 - Schizoaffective disorder, unspecified (2) Urinary incontinence: Status: Acute Code(s): R32 - Unspecified urinary incontinence (3) Diabetes mellitus: Status: Acute Code(s): E11.9 - Type 2 diabetes mellitus without complications Plan pt's description of sensation sounds very similar to patients' usual description of akathisia. pt is not on a high potency neuroleptic, so other causes should be investigated. trazodone is a possible culprit and likely not necessary as pt is also on clozapine 300 mg at HS. will plan to taper trazodone and observe for resolution of restlessness. per note from last visit on [facility], pt should avoid anticholinergics. it is unclear why pt is on cogentin, as clozaril is already very anticholinergic and unlikely to cause EPS. once stably off trazodone would also plan to taper off of cogentin in effort to improve enuresis. pt also appears generally overmedicated, would try to streamline regimen. quite prominent sialorrhea, would also consider medical mgmt as needed. unclear if UTI affecting pt's mental status as well, will observe for changes with Tx of UTI. continue home meds for now aside from below. PT eval for gait anomaly. time broker eval for proper supplement. taper trazodone to see if akathisia resolves (if it is indeed akathisia). plan to taper cogentin as likely not indicated as pt is on clozapine. UTI - on antibiotics 02/11/ pt quite withdrawn and dependent- limited engagement CTP 02/12 dec clozapine to 250mg see if less am sedation- 02/13: Keeping to self. Laying in bed. Guarded. Brief during 1:1. Pt reports feeling depressed and anxious ; pt stated, I wish I wasn't going through this. I'm trying to be patient to get better . Pt reports sleeping well. denies SI/HI/VH/AH. Continue current tx plan. 02/14 continue tx. Reason for continued inpatient stay Substantial Risk for: inability to function Time Spent With Patient Time: Total time managing care of this patient today ____ minutes.
[2024-02-15 10:18] LABS: Ammonia 28 umol/L (13-55)
--- NOTE | 2024-02-15 13:42 | PC.NURSE ---
Received a call from [facility] nurse. States that [facility] has only been getting Trulicity sporadically, due to lack of supply. Dr Jess Paris MD from [facility] is aware pt isn't getting it every week. They will bring us the med if becomes available at pt's pharmacy.
[2024-02-15] MEDS: Mirtazapine 7.5 MG TABLET 22.5 MG PO (21:33)
[2024-02-15] MEDS: cloZAPine 200 MG, cloZAPine 50 MG 250 MG PO (21:34)
[2024-02-15 22:44] LABS: Glucose, Whole Blood 162 mg/dL (60-115)
[2024-02-16 07:41] VITALS: BP 101/64; PULSE 83; RESP 14; TEMP 36.3; O2SAT 96
[2024-02-16 08:49] LABS: Glucose, Whole Blood 97 mg/dL (60-115)
[2024-02-16 08:54] VITALS: BP 104/62; PULSE 80
[2024-02-16] MEDS: Gabapentin 400 MG CAPSULE 800 MG PO ×3 (08:54→21:08)
[2024-02-16] MEDS: Metoprolol Succinate ER 25 MG TAB.ER.24H PO (08:54)
[2024-02-16] MEDS: Atorvastatin Calcium 40 MG TABLET PO (08:54)
[2024-02-16] MEDS: metFORMIN HCl 1,000 MG TABLET 1000 MG PO ×2 (08:54→21:12)
[2024-02-16] MEDS: Divalproex Sodium ER 250 MG TAB.ER.24H 750 MG PO ×2 (08:55→21:09)
[2024-02-16] MEDS: Benztropine Mesylate 0.5 MG TABLET 1.5 MG PO ×2 (08:55→21:06)
[2024-02-16] MEDS: Empagliflozin 25 MG TABLET PO (08:55)
[2024-02-16] MEDS: cefuroxime axetiL 250 MG TABLET PO ×2 (08:55→21:09)
[2024-02-16] MEDS: clonazePAM 1 MG TABLET PO ×3 (08:55→21:12)
[2024-02-16] MEDS: Gabapentin 100 MG CAPSULE PO ×3 (08:55→21:10)
--- NOTE | 2024-02-16 13:51 | P.PNPSI_ITS ---
Subjective Subjective Date of Service: 02/16/24 Reason For Visit: anxiety/depression Subjective Notes: Conditional Voluntary Interim History: pt slept through the night. He reports feeling well. He has been attending groups, then goes to bed. denies SI/HI. No overt psychosis or delusions. he denies incontinence. He asks if he has UTI- denies any symptoms including dysuria. no behavioral concerns. Diagnostics Vital Signs (24Hr): Vital Signs - 24 hr 02/15/24 15:36 02/15/24 15:41 02/15/24 15:47 Temperature 97.7 F Pulse Rate 98 97 106 H Respiratory Rate 16 Blood Pressure 116/65 112/65 111/64 Pulse Oximetry 99 Oxygen Delivery Method Room Air 02/15/24 21:20 02/16/24 07:41 02/16/24 08:54 Temperature 98.4 F 97.3 F Pulse Rate 108 H 83 80 Respiratory Rate 16 14 Blood Pressure 109/71 101/64 104/62 Pulse Oximetry 96 96 Oxygen Delivery Method Room Air Room Air BMI result Body Mass Index 28.6 Labs 02/10/24 00:37 02/17/24 08:18 Labs: Laboratory Results - last 48 hr 02/14/24 02/15/24 02/15/24 20:08 07:54 10:03 POC Glucose 197 H 94 Ammonia 28 02/15/24 02/16/24 20:43 08:43 POC Glucose 162 H 97 Ammonia Medications Medications Current Medications Acetaminophen (Acetaminophen 325 Mg Tablet) 650 mg PO Q6H PRN PRN Reason: Headache/Pain Mild Scale (1-3) Al Hydroxide/Mg Hydroxide (Magnesium Hydrox/Alum Hydrox 30 Ml Oral.Susp) 30 ml PO Q6H PRN PRN Reason: Heartburn/Nausea Atorvastatin Calcium (Atorvastatin Calcium 40 Mg Tablet) 40 mg PO DAILY [facility] Last Admin: 02/16/24 08:54 Dose: 40 mg Benztropine Mesylate (Benztropine Mesylate 0.5 Mg Tablet) 1.5 mg PO BID [facility] Last Admin: 02/16/24 08:55 Dose: 1.5 mg Cefuroxime Axetil (Cefuroxime Axetil 250 Mg Tablet) 250 mg PO BID [facility] Last Admin: 02/16/24 08:55 Dose: 250 mg Clonazepam (Clonazepam 1 Mg Tablet) 1 mg PO TID [facility] Last Admin: 02/16/24 08:55 Dose: 1 mg Clozapine 200 mg/ Clozapine 50 (mg) 250 mg PO BEDTIME [facility] Last Admin: 02/15/24 21:34 Dose: 250 mg Divalproex Sodium (Divalproex Sodium Er 250 Mg Tab.Er.24h) 750 mg PO BID [facility] Last Admin: 02/16/24 08:55 Dose: 750 mg Empagliflozin (Empagliflozin 25 Mg Tablet) 25 mg PO DAILY [facility] Last Admin: 02/16/24 08:55 Dose: 25 mg Gabapentin (Gabapentin 100 Mg Capsule) 100 mg PO TID [facility] Last Admin: 02/16/24 08:55 Dose: 100 mg Gabapentin (Gabapentin 400 Mg Capsule) 800 mg PO TID [facility] Last Admin: 02/16/24 08:54 Dose: 800 mg Hydroxyzine HCl (Hydroxyzine Hcl 25 Mg Tablet) 25 mg PO DAILY PRN PRN Reason: Anxiety Magnesium Hydroxide (Milk Of Magnesia 30 Ml Oral.Susp) 30 ml PO DAILY PRN PRN Reason: Constipation Metformin HCl (Metformin Hcl 1,000 Mg Tablet) 1,000 mg PO BID [facility] Last Admin: 02/16/24 08:54 Dose: 1,000 mg Metoprolol Succinate (Metoprolol Succinate Er 25 Mg Tab.Er.24h) 25 mg PO DAILY [facility]; Protocol Last Admin: 02/16/24 08:54 Dose: 25 mg Mirtazapine (Mirtazapine 7.5 Mg Tablet) 22.5 mg PO BEDTIME [facility] Last Admin: 02/15/24 21:33 Dose: 22.5 mg Nicotine Polacrilex (Nicotine Polacrilex 2 Mg Gum) 4 mg BUCCAL Q2H PRN PRN Reason: Nicotine Cravings Triamcinolone Acetonide (Triamcinolone Acet 0.1 % Cream 15 Gm Tube) 1 appl TOPICAL DAILY [facility]; Protocol Last Admin: 02/16/24 09:23 Dose: Not Given Allergies Allergies Allergy/AdvReac Type Severity Reaction Status Date / Time haloperidol [From Haldol] Allergy Intermediate Agitated Verified 02/09/24 23:42 lithium Allergy Intermediate Agitated Verified 02/09/24 23:42 oxcarbazepine Allergy Unknown RASH Verified 02/09/24 23:42 [From TRILEPTAL] fluphenazine [From Prolixin] Allergy akathisia Verified 02/09/24 23:42 Assessment & Plan Assessment & Plan (1) Schizoaffective disorder: Status: Acute Code(s): F25.9 - Schizoaffective disorder, unspecified (2) Urinary incontinence: Status: Acute Code(s): R32 - Unspecified urinary incontinence (3) Diabetes mellitus: Status: Acute Code(s): E11.9 - Type 2 diabetes mellitus without complications Plan pt's description of sensation sounds very similar to patients' usual description of akathisia. pt is not on a high potency neuroleptic, so other causes should be investigated. trazodone is a possible culprit and likely not necessary as pt is also on clozapine 300 mg at HS. will plan to taper trazodone and observe for resolution of restlessness. per note from last visit on [facility], pt should avoid anticholinergics. it is unclear why pt is on cogentin, as clozaril is already very anticholinergic and unlikely to cause EPS. once stably off trazodone would also plan to taper off of cogentin in effort to improve enuresis. pt also appears generally overmedicated, would try to streamline regimen. quite prominent sialorrhea, would also consider medical mgmt as needed. unclear if UTI affecting pt's mental status as well, will observe for changes with Tx of UTI. continue home meds for now aside from below. PT eval for gait anomaly. incinerator attendant eval for proper supplement. taper trazodone to see if akathisia resolves (if it is indeed akathisia). plan to taper cogentin as likely not indicated as pt is on clozapine. UTI - on antibiotics pt quite withdrawn and dependent- limited engagement CTP 02/12 dec clozapine to 250mg see if less am sedation- 02/13: Keeping to self. Laying in bed. Guarded. Brief during 1:1. Pt reports feeling depressed and anxious ; pt stated, I wish I wasn't going through this. I'm trying to be patient to get better . Pt reports sleeping well. denies SI/HI/VH/AH. Continue current tx plan. 02/14 continue tx. 02/15 continue tx. Reason for continued inpatient stay Substantial Risk for: inability to function Time Spent With Patient Time: Total time managing care of this patient today ____ minutes.
[2024-02-16 19:45] VITALS: BP 110/75; PULSE 107; RESP 16; TEMP 36.2; O2SAT 96
[2024-02-16 20:42] LABS: Glucose, Whole Blood 123 mg/dL (60-115)
[2024-02-16] MEDS: Mirtazapine 7.5 MG TABLET 22.5 MG PO (21:07)
[2024-02-16] MEDS: cloZAPine 200 MG, cloZAPine 50 MG 250 MG PO (21:12)
[2024-02-16] MEDS: Triamcinolone Acet 0.1 % Cream 15 GM TUBE 1 APPL TOPICAL (21:18)
[2024-02-17 07:00] VITALS: BMI 29.4
[2024-02-17 07:20] VITALS: BP 90/52; PULSE 86; RESP 18; TEMP 36.4; O2SAT 94
[2024-02-17] MEDS: Atorvastatin Calcium 40 MG TABLET PO (08:31)
[2024-02-17 08:32] VITALS: BP 114/71; PULSE 82
[2024-02-17] MEDS: Metoprolol Succinate ER 25 MG TAB.ER.24H PO (08:32)
[2024-02-17] MEDS: metFORMIN HCl 1,000 MG TABLET 1000 MG PO ×2 (08:32→21:54)
[2024-02-17] MEDS: Benztropine Mesylate 0.5 MG TABLET 1.5 MG PO ×2 (08:32→21:54)
[2024-02-17] MEDS: Gabapentin 400 MG CAPSULE 800 MG PO ×3 (08:32→21:51)
[2024-02-17] MEDS: Gabapentin 100 MG CAPSULE PO ×3 (08:32→21:53)
[2024-02-17] MEDS: cefuroxime axetiL 250 MG TABLET PO ×2 (08:33→21:55)
[2024-02-17] MEDS: clonazePAM 1 MG TABLET PO ×3 (08:33→21:54)
[2024-02-17] MEDS: Empagliflozin 25 MG TABLET PO (08:33)
[2024-02-17] MEDS: Divalproex Sodium ER 250 MG TAB.ER.24H 750 MG PO ×2 (08:33→21:54)
[2024-02-17 08:40] LABS: Neut%MD 49.7 %; Neutrophils Absolute Auto 4.8 x10*3/uL (2.0-8.3); WBCANC 9.6 X10*3/uL
[2024-02-17 08:51] LABS: Creatinine Clr Calc Pharmacy 109.1; Estimated Glomerular Filt Rate > 60
[2024-02-17 08:56] LABS: Glucose, Whole Blood 88 mg/dL (60-115)
[2024-02-17] MEDS: Milk of Magnesia 30 ML ORAL.SUSP PO (18:52)
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
[2024-02-17 21:10] VITALS: BP 124/66; PULSE 104; RESP 16; TEMP 36.3; O2SAT 96
[2024-02-17] MEDS: Mirtazapine 7.5 MG TABLET 22.5 MG PO (21:51)
[2024-02-17] MEDS: cloZAPine 200 MG, cloZAPine 50 MG 250 MG PO (21:52)
[2024-02-18 07:51] VITALS: BP 101/57; PULSE 75; RESP 16; TEMP 36.2; O2SAT 96
[2024-02-18] MEDS: Divalproex Sodium ER 250 MG TAB.ER.24H 750 MG PO ×2 (08:16→20:55)
[2024-02-18] MEDS: Gabapentin 100 MG CAPSULE PO ×3 (08:16→20:56)
[2024-02-18] MEDS: metFORMIN HCl 1,000 MG TABLET 1000 MG PO ×2 (08:16→20:56)
[2024-02-18] MEDS: Atorvastatin Calcium 40 MG TABLET PO (08:16)
[2024-02-18] MEDS: Empagliflozin 25 MG TABLET PO (08:16)
[2024-02-18] MEDS: Metoprolol Succinate ER 25 MG TAB.ER.24H PO (08:16)
[2024-02-18] MEDS: Gabapentin 400 MG CAPSULE 800 MG PO ×3 (08:16→20:55)
[2024-02-18] MEDS: cefuroxime axetiL 250 MG TABLET PO (08:17)
[2024-02-18] MEDS: clonazePAM 1 MG TABLET PO ×2 (08:17→15:16)
[2024-02-18 08:25] LABS: Glucose, Whole Blood 100 mg/dL (60-115)
[2024-02-18] MEDS: Benztropine Mesylate 0.5 MG TABLET 1.5 MG PO (09:00)
[2024-02-18] MEDS: Triamcinolone Acet 0.1 % Cream 15 GM TUBE 1 APPL TOPICAL (09:00)
--- NOTE | 2024-02-18 10:52 | P.PNPSI_ITS ---
Subjective Subjective Date of Service: 02/17/24 Reason For Visit: anxiety/depression Subjective Notes: Conditional Voluntary Interim History: pt slept through the night. He reports feeling well. He has been attending groups, then goes to bed. denies SI/HI. No overt psychosis or delusions. No behavioral concerns. Review of Systems Constitutional: Reports as per HPI Eyes: Reports as per HPI Reports as per HPI Cardiovascular: Reports as per HPI Respiratory: Reports as per HPI Gastrointestinal: Reports as per HPI Genitourinary: Reports as per HPI Musculoskeletal: Reports as per HPI Skin/Breast: Reports as per HPI Reports as per HPI Psychiatric: Reports as per HPI Endocrine: Reports as per HPI Hematologic/Lymphatic: Reports as per HPI Allergic/Immunologic: Reports as per HPI Mental Status Exam Mental Status Exam Narrative: Pt is alert and oriented; behavior is guarded,brief; dressed in hospital attire; mood is described as good and affect congruent, although constricted range. eye contact appropriate; Speech is normal rate, low volume and not pressured; thought process is organized and goal directed; Thought content is on tx; denies SI/HI/VH/AH. Diagnostics Vital Signs (24Hr): Vital Signs - 24 hr 02/17/24 21:10 02/18/24 07:51 Temperature 97.4 F 97.1 F Pulse Rate 104 H 75 Respiratory Rate 16 16 Blood Pressure 124/66 101/57 L Pulse Oximetry 96 96 Oxygen Delivery Method Room Air Room Air BMI result Body Mass Index 29.4 Labs 02/10/24 00:37 02/17/24 08:18 Labs: Laboratory Results - last 48 hr 02/16/24 02/17/24 02/17/24 20:36 08:18 08:22 Absolute Neuts (auto) 4.8 Creatinine 0.88 Estim Creat Clear Calc 109.1 Estimated GFR > 60 POC Glucose 123 H 88 02/18/24 08:15 Absolute Neuts (auto) Creatinine Estim Creat Clear Calc Estimated GFR POC Glucose 100 Medications Medications Current Medications Acetaminophen (Acetaminophen 325 Mg Tablet) 650 mg PO Q6H PRN PRN Reason: Headache/Pain Mild Scale (1-3) Al Hydroxide/Mg Hydroxide (Magnesium Hydrox/Alum Hydrox 30 Ml Oral.Susp) 30 ml PO Q6H PRN PRN Reason: Heartburn/Nausea Atorvastatin Calcium (Atorvastatin Calcium 40 Mg Tablet) 40 mg PO DAILY [facility] Last Admin: 02/18/24 08:16 Dose: 40 mg Benztropine Mesylate (Benztropine Mesylate 0.5 Mg Tablet) 1.5 mg PO BID [facility] Last Admin: 02/18/24 09:00 Dose: 1.5 mg Cefuroxime Axetil (Cefuroxime Axetil 250 Mg Tablet) 250 mg PO BID [facility] Last Admin: 02/18/24 08:17 Dose: 250 mg Clonazepam (Clonazepam 1 Mg Tablet) 1 mg PO TID [facility] Last Admin: 02/18/24 08:17 Dose: 1 mg Clozapine 200 mg/ Clozapine 50 (mg) 250 mg PO BEDTIME [facility] Last Admin: 02/17/24 21:52 Dose: 250 mg Divalproex Sodium (Divalproex Sodium Er 250 Mg Tab.Er.24h) 750 mg PO BID [facility] Last Admin: 02/18/24 08:16 Dose: 750 mg Empagliflozin (Empagliflozin 25 Mg Tablet) 25 mg PO DAILY [facility] Last Admin: 02/18/24 08:16 Dose: 25 mg Gabapentin (Gabapentin 100 Mg Capsule) 100 mg PO TID [facility] Last Admin: 02/18/24 08:16 Dose: 100 mg Gabapentin (Gabapentin 400 Mg Capsule) 800 mg PO TID [facility] Last Admin: 02/18/24 08:16 Dose: 800 mg Hydroxyzine HCl (Hydroxyzine Hcl 25 Mg Tablet) 25 mg PO DAILY PRN PRN Reason: Anxiety Magnesium Hydroxide (Milk Of Magnesia 30 Ml Oral.Susp) 30 ml PO DAILY PRN PRN Reason: Constipation Last Admin: 02/17/24 18:52 Dose: 30 ml Metformin HCl (Metformin Hcl 1,000 Mg Tablet) 1,000 mg PO BID [facility] Last Admin: 02/18/24 08:16 Dose: 1,000 mg Metoprolol Succinate (Metoprolol Succinate Er 25 Mg Tab.Er.24h) 25 mg PO DAILY [facility]; Protocol Last Admin: 02/18/24 08:16 Dose: 25 mg Mirtazapine (Mirtazapine 7.5 Mg Tablet) 22.5 mg PO BEDTIME [facility] Last Admin: 02/17/24 21:51 Dose: 22.5 mg Nicotine Polacrilex (Nicotine Polacrilex 2 Mg Gum) 4 mg BUCCAL Q2H PRN PRN Reason: Nicotine Cravings Triamcinolone Acetonide (Triamcinolone Acet 0.1 % Cream 15 Gm Tube) 1 appl TOPICAL DAILY [facility]; Protocol Last Admin: 02/18/24 09:00 Dose: 1 appl Allergies Allergies Allergy/AdvReac Type Severity Reaction Status Date / Time haloperidol [From Haldol] Allergy Intermediate Agitated Verified 02/09/24 23:42 lithium Allergy Intermediate Agitated Verified 02/09/24 23:42 oxcarbazepine Allergy Unknown RASH Verified 02/09/24 23:42 [From TRILEPTAL] fluphenazine [From Prolixin] Allergy akathisia Verified 02/09/24 23:42 Assessment & Plan Assessment & Plan (1) Schizoaffective disorder: Status: Acute Code(s): F25.9 - Schizoaffective disorder, unspecified (2) Urinary incontinence: Status: Acute Code(s): R32 - Unspecified urinary incontinence (3) Diabetes mellitus: Status: Acute Code(s): E11.9 - Type 2 diabetes mellitus without complications Plan pt's description of sensation sounds very similar to patients' usual description of akathisia. pt is not on a high potency neuroleptic, so other causes should be investigated. trazodone is a possible culprit and likely not necessary as pt is also on clozapine 300 mg at HS. will plan to taper trazodone and observe for resolution of restlessness. per note from last visit on M5, pt should avoid anticholinergics. it is unclear why pt is on cogentin, as clozaril is already very anticholinergic and unlikely to cause EPS. once stably off trazodone would also plan to taper off of cogentin in effort to improve enuresis. pt also appears generally overmedicated, would try to streamline regimen. quite prominent sialorrhea, would also consider medical mgmt as needed. unclear if UTI affecting pt's mental status as well, will observe for changes with Tx of UTI. continue home meds for now aside from below. PT eval for gait anomaly. ceo & board director eval for proper supplement. taper trazodone to see if akathisia resolves (if it is indeed akathisia). plan to taper cogentin as likely not indicated as pt is on clozapine. UTI - on antibiotics 02/11/- pt quite withdrawn and dependent- limited engagement CTP 02/12 dec clozapine to 250mg see if less am sedation- 02/13: Keeping to self. Laying in bed. Guarded. Brief during 1:1. Pt reports feeling depressed and anxious ; pt stated, I wish I wasn't going through this. I'm trying to be patient to get better . Pt reports sleeping well. denies SI/HI/VH/AH. Continue current tx plan. 02/14 continue tx. 02/15 continue tx. 02/16 continue tx. Reason for continued inpatient stay Substantial Risk for: inability to function Time Spent With Patient Time: Total time managing care of this patient today ____ minutes.
--- NOTE | 2024-02-18 10:55 | HO.PSYCHPN ---
Subjective Subjective Date of Service: 02/18/24 Reason For Visit: anxiety/depression Interim History: pt slept through the night. He reports feeling well. He has been attending groups, then goes to bed. denies SI/HI. No overt psychosis or delusions. No behavioral concerns. Review of Systems Constitutional: Reports as per HPI Eyes: Reports as per HPI Reports as per HPI Cardiovascular: Reports as per HPI Respiratory: Reports as per HPI Gastrointestinal: Reports as per HPI Genitourinary: Reports as per HPI Musculoskeletal: Reports as per HPI Skin/Breast: Reports as per HPI Reports as per HPI Psychiatric: Reports as per HPI Endocrine: Reports as per HPI Hematologic/Lymphatic: Reports as per HPI Allergic/Immunologic: Reports as per HPI Mental Status Exam Mental Status Exam Narrative: Pt is alert and oriented; behavior is guarded,brief; dressed in hospital attire; mood is described as good and affect congruent, although constricted range. eye contact appropriate; Speech is normal rate, low volume and not pressured; thought process is organized and goal directed; Thought content is on tx; denies SI/HI/VH/AH. Diagnostics Vital Signs (24Hr): Vital Signs - 24 hr 02/17/24 21:10 02/18/24 07:51 Temperature 97.4 F 97.1 F Pulse Rate 104 H 75 Respiratory Rate 16 16 Blood Pressure 124/66 101/57 L Pulse Oximetry 96 96 Oxygen Delivery Method Room Air Room Air BMI result Body Mass Index 29.4 Labs 02/10/24 00:37 02/17/24 08:18 Labs: Laboratory Results - last 48 hr 02/16/24 02/17/24 02/17/24 20:36 08:18 08:22 Absolute Neuts (auto) 4.8 Creatinine 0.88 Estim Creat Clear Calc 109.1 Estimated GFR > 60 POC Glucose 123 H 88 02/18/24 08:15 Absolute Neuts (auto) Creatinine Estim Creat Clear Calc Estimated GFR POC Glucose 100 Medications Medications Current Medications Acetaminophen (Acetaminophen 325 Mg Tablet) 650 mg PO Q6H PRN PRN Reason: Headache/Pain Mild Scale (1-3) Al Hydroxide/Mg Hydroxide (Magnesium Hydrox/Alum Hydrox 30 Ml Oral.Susp) 30 ml PO Q6H PRN PRN Reason: Heartburn/Nausea Atorvastatin Calcium (Atorvastatin Calcium 40 Mg Tablet) 40 mg PO DAILY [facility] Last Admin: 02/18/24 08:16 Dose: 40 mg Benztropine Mesylate (Benztropine Mesylate 0.5 Mg Tablet) 1.5 mg PO BID [facility] Last Admin: 02/18/24 09:00 Dose: 1.5 mg Cefuroxime Axetil (Cefuroxime Axetil 250 Mg Tablet) 250 mg PO BID [facility] Last Admin: 02/18/24 08:17 Dose: 250 mg Clonazepam (Clonazepam 1 Mg Tablet) 1 mg PO TID [facility] Last Admin: 02/18/24 08:17 Dose: 1 mg Clozapine 200 mg/ Clozapine 50 (mg) 250 mg PO BEDTIME [facility] Last Admin: 02/17/24 21:52 Dose: 250 mg Divalproex Sodium (Divalproex Sodium Er 250 Mg Tab.Er.24h) 750 mg PO BID [facility] Last Admin: 02/18/24 08:16 Dose: 750 mg Empagliflozin (Empagliflozin 25 Mg Tablet) 25 mg PO DAILY [facility] Last Admin: 02/18/24 08:16 Dose: 25 mg Gabapentin (Gabapentin 100 Mg Capsule) 100 mg PO TID [facility] Last Admin: 02/18/24 08:16 Dose: 100 mg Gabapentin (Gabapentin 400 Mg Capsule) 800 mg PO TID [facility] Last Admin: 02/18/24 08:16 Dose: 800 mg Hydroxyzine HCl (Hydroxyzine Hcl 25 Mg Tablet) 25 mg PO DAILY PRN PRN Reason: Anxiety Magnesium Hydroxide (Milk Of Magnesia 30 Ml Oral.Susp) 30 ml PO DAILY PRN PRN Reason: Constipation Last Admin: 02/17/24 18:52 Dose: 30 ml Metformin HCl (Metformin Hcl 1,000 Mg Tablet) 1,000 mg PO BID [facility] Last Admin: 02/18/24 08:16 Dose: 1,000 mg Metoprolol Succinate (Metoprolol Succinate Er 25 Mg Tab.Er.24h) 25 mg PO DAILY [facility]; Protocol Last Admin: 02/18/24 08:16 Dose: 25 mg Mirtazapine (Mirtazapine 7.5 Mg Tablet) 22.5 mg PO BEDTIME [facility] Last Admin: 02/17/24 21:51 Dose: 22.5 mg Nicotine Polacrilex (Nicotine Polacrilex 2 Mg Gum) 4 mg BUCCAL Q2H PRN PRN Reason: Nicotine Cravings Triamcinolone Acetonide (Triamcinolone Acet 0.1 % Cream 15 Gm Tube) 1 appl TOPICAL DAILY [facility]; Protocol Last Admin: 02/18/24 09:00 Dose: 1 appl Allergies Allergies Allergy/AdvReac Type Severity Reaction Status Date / Time haloperidol [From Haldol] Allergy Intermediate Agitated Verified 02/09/24 23:42 lithium Allergy Intermediate Agitated Verified 02/09/24 23:42 oxcarbazepine Allergy Unknown RASH Verified 02/09/24 23:42 [From TRILEPTAL] fluphenazine [From Prolixin] Allergy akathisia Verified 02/09/24 23:42 Assessment & Plan Assessment & Plan (1) Schizoaffective disorder: Status: Acute Code(s): F25.9 - Schizoaffective disorder, unspecified (2) Urinary incontinence: Status: Acute Code(s): R32 - Unspecified urinary incontinence (3) Diabetes mellitus: Status: Acute Code(s): E11.9 - Type 2 diabetes mellitus without complications Plan pt's description of sensation sounds very similar to patients' usual description of akathisia. pt is not on a high potency neuroleptic, so other causes should be investigated. trazodone is a possible culprit and likely not necessary as pt is also on clozapine 300 mg at HS. will plan to taper trazodone and observe for resolution of restlessness. per note from last visit on M5, pt should avoid anticholinergics. it is unclear why pt is on cogentin, as clozaril is already very anticholinergic and unlikely to cause EPS. once stably off trazodone would also plan to taper off of cogentin in effort to improve enuresis. pt also appears generally overmedicated, would try to streamline regimen. quite prominent sialorrhea, would also consider medical mgmt as needed. unclear if UTI affecting pt's mental status as well, will observe for changes with Tx of UTI. continue home meds for now aside from below. PT eval for gait anomaly. manager analytical eval for proper supplement. taper trazodone to see if akathisia resolves (if it is indeed akathisia). plan to taper cogentin as likely not indicated as pt is on clozapine. UTI - on antibiotics 02/11/ pt quite withdrawn and dependent- limited engagement CTP 02/12 dec clozapine to 250mg see if less am sedation- 02/13: Keeping to self. Laying in bed. Guarded. Brief during 1:1. Pt reports feeling depressed and anxious ; pt stated, I wish I wasn't going through this. I'm trying to be patient to get better . Pt reports sleeping well. denies SI/HI/VH/AH. Continue current tx plan. 02/14 continue tx. 02/15 continue tx. 02/16 continue tx. 02/17 continue tx. Reason for continued inpatient stay Substantial Risk for: inability to function Time Spent With Patient Time: Total time managing care of this patient today ____ minutes.
[2024-02-18] MEDS: polyethylene glycoL 3350 17 GM POWD.PACK PO (17:00)
[2024-02-18] MEDS: Sennosides/Docusate Sodium TABLET 1 TAB PO ×2 (17:00→20:56)
[2024-02-18] MEDS: Milk of Magnesia 30 ML ORAL.SUSP PO (19:18)
[2024-02-18 20:00] VITALS: BP 114/70; PULSE 97; RESP 16; TEMP 36.6; O2SAT 96
[2024-02-18] MEDS: cloZAPine 200 MG, cloZAPine 50 MG 250 MG PO (20:54)
[2024-02-18] MEDS: clonazePAM 0.5 MG TABLET PO (20:56)
[2024-02-18] MEDS: Mirtazapine 7.5 MG TABLET 22.5 MG PO (20:56)
[2024-02-18 22:24] LABS: Glucose, Whole Blood 152 mg/dL (60-115)
[2024-02-19 08:00] VITALS: BP 112/65; PULSE 80; RESP 14; TEMP 36.3; O2SAT 93
[2024-02-19 08:42] LABS: Glucose, Whole Blood 103 mg/dL (60-115)
[2024-02-19 09:17] VITALS: BP 122/70; PULSE 96
[2024-02-19] MEDS: Gabapentin 400 MG CAPSULE 800 MG PO ×3 (09:17→20:33)
[2024-02-19] MEDS: Divalproex Sodium ER 250 MG TAB.ER.24H 750 MG PO ×2 (09:17→20:34)
[2024-02-19] MEDS: clonazePAM 0.5 MG TABLET PO ×3 (09:17→20:34)
[2024-02-19] MEDS: Metoprolol Succinate ER 25 MG TAB.ER.24H PO (09:17)
[2024-02-19] MEDS: metFORMIN HCl 1,000 MG TABLET 1000 MG PO ×2 (09:17→20:34)
[2024-02-19] MEDS: Empagliflozin 25 MG TABLET PO (09:17)
[2024-02-19] MEDS: Gabapentin 100 MG CAPSULE PO ×3 (09:18→20:33)
[2024-02-19] MEDS: Sennosides/Docusate Sodium TABLET 1 TAB PO ×2 (09:18→20:33)
[2024-02-19] MEDS: Atorvastatin Calcium 40 MG TABLET PO (09:18)
[2024-02-19] MEDS: Triamcinolone Acet 0.1 % Cream 15 GM TUBE 1 APPL TOPICAL (09:33)
--- NOTE | 2024-02-19 10:12 | P.PNPSI_ITS ---
Subjective Subjective Date of Service: 02/19/24 Reason For Visit: anxiety/depression Interim History: Constipation relieved. He feels better. pt slept through the night. He reports feeling well. He has been attending groups, then goes to bed. denies SI/HI. No overt psychosis or delusions. No behavioral concerns. Isolative in his room. Review of Systems Constitutional: Reports as per HPI Eyes: Reports as per HPI Reports as per HPI Cardiovascular: Reports as per HPI Respiratory: Reports as per HPI Gastrointestinal: Reports as per HPI Genitourinary: Reports as per HPI Musculoskeletal: Reports as per HPI Skin/Breast: Reports as per HPI Reports as per HPI Psychiatric: Reports as per HPI Endocrine: Reports as per HPI Hematologic/Lymphatic: Reports as per HPI Allergic/Immunologic: Reports as per HPI Mental Status Exam Mental Status Exam Narrative: Pt is alert and oriented; behavior is guarded,brief; dressed in hospital attire; mood is described as good and affect congruent, although constricted range. eye contact appropriate; Speech is normal rate, low volume and not pressured; thought process is organized and goal directed; Thought content is on tx; denies SI/HI/VH/AH. Patient Appearance: Disheveled and Unkempt Patient Orientation: Person and Place Level of Consciousness: Awake and Drowsy Patient Behavior: Dependent and Passive Mood Description: Apathetic Affect Description: Blunted Patient Cognition Impaired: Yes Ability to Follow Directions: Fair (with nursing support) Speech Pattern: Mumbled Diagnostics Vital Signs (24Hr): Vital Signs - 24 hr 02/18/24 20:00 02/19/24 08:00 02/19/24 09:17 Temperature 97.8 F 97.3 F Pulse Rate 97 80 96 Respiratory Rate 16 14 Blood Pressure 114/70 112/65 122/70 Pulse Oximetry 96 93 Oxygen Delivery Method Room Air Room Air BMI result Body Mass Index 29.4 Labs 02/10/24 00:37 02/17/24 08:18 Labs: Laboratory Results - last 48 hr 02/18/24 02/18/24 02/19/24 08:15 22:18 08:33 POC Glucose 100 152 H 103 Medications Medications Current Medications Acetaminophen (Acetaminophen 325 Mg Tablet) 650 mg PO Q6H PRN PRN Reason: Headache/Pain Mild Scale (1-3) Al Hydroxide/Mg Hydroxide (Magnesium Hydrox/Alum Hydrox 30 Ml Oral.Susp) 30 ml PO Q6H PRN PRN Reason: Heartburn/Nausea Atorvastatin Calcium (Atorvastatin Calcium 40 Mg Tablet) 40 mg PO DAILY [facility] Last Admin: 02/19/24 09:18 Dose: 40 mg Clonazepam (Clonazepam 0.5 Mg Tablet) 0.5 mg PO TID [facility] Last Admin: 02/19/24 09:17 Dose: 0.5 mg Clozapine 200 mg/ Clozapine 50 (mg) 250 mg PO BEDTIME [facility] Last Admin: 02/18/24 20:54 Dose: 250 mg Divalproex Sodium (Divalproex Sodium Er 250 Mg Tab.Er.24h) 750 mg PO BID [facility] Last Admin: 02/19/24 09:17 Dose: 750 mg Empagliflozin (Empagliflozin 25 Mg Tablet) 25 mg PO DAILY [facility] Last Admin: 02/19/24 09:17 Dose: 25 mg Gabapentin (Gabapentin 100 Mg Capsule) 100 mg PO TID [facility] Last Admin: 02/19/24 09:18 Dose: 100 mg Gabapentin (Gabapentin 400 Mg Capsule) 800 mg PO TID [facility] Last Admin: 02/19/24 09:17 Dose: 800 mg Hydroxyzine HCl (Hydroxyzine Hcl 25 Mg Tablet) 25 mg PO DAILY PRN PRN Reason: Anxiety Magnesium Hydroxide (Milk Of Magnesia 30 Ml Oral.Susp) 30 ml PO DAILY PRN PRN Reason: Constipation Last Admin: 02/18/24 19:18 Dose: 30 ml Metformin HCl (Metformin Hcl 1,000 Mg Tablet) 1,000 mg PO BID [facility] Last Admin: 02/19/24 09:17 Dose: 1,000 mg Metoprolol Succinate (Metoprolol Succinate Er 25 Mg Tab.Er.24h) 25 mg PO DAILY [facility]; Protocol Last Admin: 02/19/24 09:17 Dose: 25 mg Mirtazapine (Mirtazapine 7.5 Mg Tablet) 22.5 mg PO BEDTIME [facility] Last Admin: 02/18/24 20:56 Dose: 22.5 mg Nicotine Polacrilex (Nicotine Polacrilex 2 Mg Gum) 4 mg BUCCAL Q2H PRN PRN Reason: Nicotine Cravings Polyethylene Glycol (Polyethylene Glycol 3350 17 Gm Powd.Pack) 17 gm PO DAILY [facility] Last Admin: 02/19/24 09:21 Dose: Not Given Senna/Docusate Sodium (Sennosides/Docusate Sodium Tablet) 1 tab PO BID [facility] Last Admin: 02/19/24 09:18 Dose: 1 tab Triamcinolone Acetonide (Triamcinolone Acet 0.1 % Cream 15 Gm Tube) 1 appl TOPICAL DAILY [facility]; Protocol Last Admin: 02/19/24 09:33 Dose: 1 appl Allergies Allergies Allergy/AdvReac Type Severity Reaction Status Date / Time haloperidol [From Haldol] Allergy Intermediate Agitated Verified 02/09/24 23:42 lithium Allergy Intermediate Agitated Verified 02/09/24 23:42 oxcarbazepine Allergy Unknown RASH Verified 02/09/24 23:42 [From TRILEPTAL] fluphenazine [From Prolixin] Allergy akathisia Verified 02/09/24 23:42 Assessment & Plan Assessment & Plan (1) Schizoaffective disorder: Status: Acute Code(s): F25.9 - Schizoaffective disorder, unspecified (2) Urinary incontinence: Status: Acute Code(s): R32 - Unspecified urinary incontinence (3) Diabetes mellitus: Status: Acute Code(s): E11.9 - Type 2 diabetes mellitus without complications Plan pt's description of sensation sounds very similar to patients' usual description of akathisia. pt is not on a high potency neuroleptic, so other causes should be investigated. trazodone is a possible culprit and likely not necessary as pt is also on clozapine 300 mg at HS. will plan to taper trazodone and observe for resolution of restlessness. per note from last visit on M5, pt should avoid anticholinergics. it is unclear why pt is on cogentin, as clozaril is already very anticholinergic and unlikely to cause EPS. once stably off trazodone would also plan to taper off of cogentin in effort to improve enuresis. pt also appears generally overmedicated, would try to streamline regimen. quite prominent sialorrhea, would also consider medical mgmt as needed. unclear if UTI affecting pt's mental status as well, will observe for changes with Tx of UTI. continue home meds for now aside from below. PT eval for gait anomaly. ice guard tester eval for proper supplement. taper trazodone to see if akathisia resolves (if it is indeed akathisia). plan to taper cogentin as likely not indicated as pt is on clozapine. UTI - on antibiotics 6/22/- pt quite withdrawn and dependent- limited engagement CTP 02/12 dec clozapine to 250mg see if less am sedation- 02/13: Keeping to self. Laying in bed. Guarded. Brief during 1:1. Pt reports feeling depressed and anxious ; pt stated, I wish I wasn't going through this. I'm trying to be patient to get better . Pt reports sleeping well. denies SI/HI/VH/AH. Continue current tx plan. 02/14 continue tx. 02/15 continue tx. 02/16 continue tx. 02/17 continue tx. Reason for continued inpatient stay Substantial Risk for: inability to function and rapid decompensation Time Spent With Patient Time: Total time managing care of this patient today ____ minutes.
[2024-02-19 20:25] VITALS: BP 125/74; PULSE 97; RESP 16; TEMP 36.8; O2SAT 93
[2024-02-19] MEDS: Mirtazapine 7.5 MG TABLET 22.5 MG PO (20:34)
[2024-02-19] MEDS: cloZAPine 200 MG, cloZAPine 50 MG 250 MG PO (20:34)
[2024-02-19 20:45] LABS: Glucose, Whole Blood 252 mg/dL (60-115)
[2024-02-20 08:00] VITALS: BP 110/66; PULSE 84; RESP 16; TEMP 36.4; O2SAT 94
[2024-02-20] MEDS: Metoprolol Succinate ER 25 MG TAB.ER.24H PO (08:30)
[2024-02-20] MEDS: Empagliflozin 25 MG TABLET PO (08:30)
[2024-02-20] MEDS: Sennosides/Docusate Sodium TABLET 1 TAB PO ×2 (08:30→20:34)
[2024-02-20] MEDS: clonazePAM 0.5 MG TABLET PO ×3 (08:30→20:34)
[2024-02-20] MEDS: Gabapentin 400 MG CAPSULE 800 MG PO ×3 (08:30→20:34)
[2024-02-20] MEDS: Atorvastatin Calcium 40 MG TABLET PO (08:31)
[2024-02-20] MEDS: Divalproex Sodium ER 250 MG TAB.ER.24H 750 MG PO ×2 (08:31→20:34)
[2024-02-20] MEDS: metFORMIN HCl 1,000 MG TABLET 1000 MG PO ×2 (08:31→20:34)
[2024-02-20] MEDS: Gabapentin 100 MG CAPSULE PO ×3 (08:31→20:34)
[2024-02-20 08:45] LABS: Glucose, Whole Blood 93 mg/dL (60-115)
[2024-02-20] MEDS: Triamcinolone Acet 0.1 % Cream 15 GM TUBE 1 APPL TOPICAL (12:03)
--- NOTE | 2024-02-20 15:45 | P.PNPSI_ITS ---
Subjective Subjective Date of Service: 02/20/24 Reason For Visit: anxiety/depression Interim History: Reports he is feeling improved. He is asking to stay until Wednesday to feel more confident about being ready for DC. Pt slept through the night. He reports feeling well. He has been attending groups, then goes to bed. denies SI/HI. No overt psychosis or delusions and denies AVH. No behavioral concerns. Isolative in his room but sometimes goes out and does puzzles in the common area. Review of Systems Constitutional: Reports as per HPI Eyes: Reports as per HPI Reports as per HPI Cardiovascular: Reports as per HPI Respiratory: Reports as per HPI Gastrointestinal: Reports as per HPI Genitourinary: Reports as per HPI Musculoskeletal: Reports as per HPI Skin/Breast: Reports as per HPI Reports as per HPI Psychiatric: Reports as per HPI Endocrine: Reports as per HPI Hematologic/Lymphatic: Reports as per HPI Allergic/Immunologic: Reports as per HPI Mental Status Exam Mental Status Exam Narrative: Pt is alert and oriented; behavior is guarded,brief; dressed in hospital attire; mood is described as good and affect congruent, although constricted range. eye contact appropriate; Speech is normal rate, low volume and not pressured; thought process is organized and goal directed; Thought content is on tx; denies SI/HI/VH/AH. Patient Appearance: Disheveled and Unkempt Patient Orientation: Person and Place Level of Consciousness: Awake and Drowsy Patient Behavior: Dependent and Passive Mood Description: Apathetic Affect Description: Blunted Patient Cognition Impaired: Yes Ability to Follow Directions: Fair (with nursing support) Speech Pattern: Mumbled Diagnostics Vital Signs (24Hr): Vital Signs - 24 hr 02/19/24 20:25 02/20/24 08:00 Temperature 98.3 F 97.5 F Pulse Rate 97 84 Respiratory Rate 16 16 Blood Pressure 125/74 110/66 Pulse Oximetry 93 94 Oxygen Delivery Method Room Air Room Air BMI result Body Mass Index 29.4 Labs 02/10/24 00:37 02/17/24 08:18 Labs: Laboratory Results - last 48 hr 02/18/24 02/19/24 02/19/24 22:18 08:33 20:39 POC Glucose 152 H 103 252 H 02/20/24 08:38 POC Glucose 93 Medications Medications Current Medications Acetaminophen (Acetaminophen 325 Mg Tablet) 650 mg PO Q6H PRN PRN Reason: Headache/Pain Mild Scale (1-3) Al Hydroxide/Mg Hydroxide (Magnesium Hydrox/Alum Hydrox 30 Ml Oral.Susp) 30 ml PO Q6H PRN PRN Reason: Heartburn/Nausea Atorvastatin Calcium (Atorvastatin Calcium 40 Mg Tablet) 40 mg PO DAILY [facility] Last Admin: 02/20/24 08:31 Dose: 40 mg Clonazepam (Clonazepam 0.5 Mg Tablet) 0.5 mg PO TID [facility] Last Admin: 02/20/24 14:50 Dose: 0.5 mg Clozapine 200 mg/ Clozapine 50 (mg) 250 mg PO BEDTIME [facility] Last Admin: 02/19/24 20:34 Dose: 250 mg Divalproex Sodium (Divalproex Sodium Er 250 Mg Tab.Er.24h) 750 mg PO BID [facility] Last Admin: 02/20/24 08:31 Dose: 750 mg Empagliflozin (Empagliflozin 25 Mg Tablet) 25 mg PO DAILY [facility] Last Admin: 02/20/24 08:30 Dose: 25 mg Gabapentin (Gabapentin 100 Mg Capsule) 100 mg PO TID [facility] Last Admin: 02/20/24 14:50 Dose: 100 mg Gabapentin (Gabapentin 400 Mg Capsule) 800 mg PO TID [facility] Last Admin: 02/20/24 14:49 Dose: 800 mg Hydroxyzine HCl (Hydroxyzine Hcl 25 Mg Tablet) 25 mg PO DAILY PRN PRN Reason: Anxiety Magnesium Hydroxide (Milk Of Magnesia 30 Ml Oral.Susp) 30 ml PO DAILY PRN PRN Reason: Constipation Last Admin: 02/18/24 19:18 Dose: 30 ml Metformin HCl (Metformin Hcl 1,000 Mg Tablet) 1,000 mg PO BID [facility] Last Admin: 02/20/24 08:31 Dose: 1,000 mg Metoprolol Succinate (Metoprolol Succinate Er 25 Mg Tab.Er.24h) 25 mg PO DAILY [facility]; Protocol Last Admin: 02/20/24 08:30 Dose: 25 mg Mirtazapine (Mirtazapine 7.5 Mg Tablet) 22.5 mg PO BEDTIME [facility] Last Admin: 02/19/24 20:34 Dose: 22.5 mg Nicotine Polacrilex (Nicotine Polacrilex 2 Mg Gum) 4 mg BUCCAL Q2H PRN PRN Reason: Nicotine Cravings Polyethylene Glycol (Polyethylene Glycol 3350 17 Gm Powd.Pack) 17 gm PO DAILY [facility] Last Admin: 02/20/24 09:43 Dose: Not Given Senna/Docusate Sodium (Sennosides/Docusate Sodium Tablet) 1 tab PO BID [facility] Last Admin: 02/20/24 08:30 Dose: 1 tab Triamcinolone Acetonide (Triamcinolone Acet 0.1 % Cream 15 Gm Tube) 1 appl TOPICAL DAILY [facility]; Protocol Last Admin: 02/20/24 12:03 Dose: 1 appl Allergies Allergies Allergy/AdvReac Type Severity Reaction Status Date / Time haloperidol [From Haldol] Allergy Intermediate Agitated Verified 02/09/24 23:42 lithium Allergy Intermediate Agitated Verified 02/09/24 23:42 oxcarbazepine Allergy Unknown RASH Verified 02/09/24 23:42 [From TRILEPTAL] fluphenazine [From Prolixin] Allergy akathisia Verified 02/09/24 23:42 Assessment & Plan Assessment & Plan (1) Schizoaffective disorder: Status: Acute Code(s): F25.9 - Schizoaffective disorder, unspecified (2) Urinary incontinence: Status: Acute Code(s): R32 - Unspecified urinary incontinence (3) Diabetes mellitus: Status: Acute Code(s): E11.9 - Type 2 diabetes mellitus without complications Plan pt's description of sensation sounds very similar to patients' usual description of akathisia. pt is not on a high potency neuroleptic, so other causes should be investigated. trazodone is a possible culprit and likely not necessary as pt is also on clozapine 300 mg at HS. will plan to taper trazodone and observe for resolution of restlessness. per note from last visit on M5, pt should avoid anticholinergics. it is unclear why pt is on cogentin, as clozaril is already very anticholinergic and unlikely to cause EPS. once stably off trazodone would also plan to taper off of cogentin in effort to improve enuresis. pt also appears generally overmedicated, would try to streamline regimen. quite prominent sialorrhea, would also consider medical mgmt as needed. unclear if UTI affecting pt's mental status as well, will observe for changes with Tx of UTI. continue home meds for now aside from below. PT eval for gait anomaly. commercial cleaner eval for proper supplement. taper trazodone to see if akathisia resolves (if it is indeed akathisia). plan to taper cogentin as likely not indicated as pt is on clozapine. UTI - on antibiotics 02/11/ pt quite withdrawn and dependent- limited engagement CTP 02/12 dec clozapine to 250mg see if less am sedation- 02/13: Keeping to self. Laying in bed. Guarded. Brief during 1:1. Pt reports feeling depressed and anxious ; pt stated, I wish I wasn't going through this. I'm trying to be patient to get better . Pt reports sleeping well. denies SI/HI/VH/AH. Continue current tx plan. 02/14 continue tx. 02/15 continue tx. 02/16 continue tx. 02/17 continue tx. 02/19: continue current management and treatment plan. Reason for continued inpatient stay Substantial Risk for: inability to function and rapid decompensation Time Spent With Patient Time: Total time managing care of this patient today ____ minutes.
[2024-02-20 20:00] VITALS: BP 113/73; PULSE 92; RESP 16; TEMP 36.4; O2SAT 97
[2024-02-20] MEDS: cloZAPine 200 MG, cloZAPine 50 MG 250 MG PO (20:33)
[2024-02-20] MEDS: Mirtazapine 7.5 MG TABLET 22.5 MG PO (20:33)
[2024-02-20 20:51] LABS: Glucose, Whole Blood 217 mg/dL (60-115)
[2024-02-21 08:00] VITALS: BP 118/74; PULSE 92; RESP 18; TEMP 36.4; O2SAT 93
[2024-02-21] MEDS: metFORMIN HCl 1,000 MG TABLET 1000 MG PO ×2 (08:35→21:40)
[2024-02-21] MEDS: Atorvastatin Calcium 40 MG TABLET PO (08:35)
[2024-02-21 08:36] VITALS: BP 118/74; PULSE 62
[2024-02-21] MEDS: Gabapentin 100 MG CAPSULE PO ×3 (08:36→21:41)
[2024-02-21] MEDS: Metoprolol Succinate ER 25 MG TAB.ER.24H PO (08:36)
[2024-02-21] MEDS: Sennosides/Docusate Sodium TABLET 1 TAB PO ×2 (08:36→21:40)
[2024-02-21] MEDS: Divalproex Sodium ER 250 MG TAB.ER.24H 750 MG PO ×2 (08:37→21:43)
[2024-02-21] MEDS: Gabapentin 400 MG CAPSULE 800 MG PO ×3 (08:38→21:41)
[2024-02-21] MEDS: clonazePAM 0.5 MG TABLET PO ×3 (08:38→21:41)
[2024-02-21] MEDS: Empagliflozin 25 MG TABLET PO (08:39)
[2024-02-21] MEDS: Triamcinolone Acet 0.1 % Cream 15 GM TUBE 1 APPL TOPICAL (08:41)
[2024-02-21 09:01] LABS: Glucose, Whole Blood 101 mg/dL (60-115)
--- NOTE | 2024-02-21 10:47 | HO.PSYCHPN ---
Subjective Subjective Date of Service: 02/21/24 Reason For Visit: anxiety/depression Subjective Notes: Conditional Voluntary Interim History: Pt slept through the night. he reports constipation much less and having BM more regularly. He denies SI/HI. more visible on the unit and social with select peers. No behavioral concerns. plan for d/c on 02/22. Diagnostics Vital Signs (24Hr): Vital Signs - 24 hr 02/20/24 20:00 02/21/24 08:00 02/21/24 08:36 Temperature 97.5 F 97.6 F Pulse Rate 92 92 62 Respiratory Rate 16 18 Blood Pressure 113/73 118/74 118/74 Pulse Oximetry 97 93 Oxygen Delivery Method Room Air Room Air BMI result Body Mass Index 29.4 Labs 02/10/24 00:37 02/17/24 08:18 Labs: Laboratory Results - last 48 hr 02/19/24 02/20/24 02/20/24 20:39 08:38 20:39 POC Glucose 252 H 93 217 H 02/21/24 08:46 POC Glucose 101 Medications Medications Current Medications Acetaminophen (Acetaminophen 325 Mg Tablet) 650 mg PO Q6H PRN PRN Reason: Headache/Pain Mild Scale (1-3) Al Hydroxide/Mg Hydroxide (Magnesium Hydrox/Alum Hydrox 30 Ml Oral.Susp) 30 ml PO Q6H PRN PRN Reason: Heartburn/Nausea Atorvastatin Calcium (Atorvastatin Calcium 40 Mg Tablet) 40 mg PO DAILY [facility] Last Admin: 02/21/24 08:35 Dose: 40 mg Clonazepam (Clonazepam 0.5 Mg Tablet) 0.5 mg PO TID [facility] Last Admin: 02/21/24 08:38 Dose: 0.5 mg Clozapine 200 mg/ Clozapine 50 (mg) 250 mg PO BEDTIME [facility] Last Admin: 02/20/24 20:33 Dose: 250 mg Divalproex Sodium (Divalproex Sodium Er 250 Mg Tab.Er.24h) 750 mg PO BID [facility] Last Admin: 02/21/24 08:37 Dose: 750 mg Empagliflozin (Empagliflozin 25 Mg Tablet) 25 mg PO DAILY [facility] Last Admin: 02/21/24 08:39 Dose: 25 mg Gabapentin (Gabapentin 100 Mg Capsule) 100 mg PO TID [facility] Last Admin: 02/21/24 08:36 Dose: 100 mg Gabapentin (Gabapentin 400 Mg Capsule) 800 mg PO TID [facility] Last Admin: 02/21/24 08:38 Dose: 800 mg Hydroxyzine HCl (Hydroxyzine Hcl 25 Mg Tablet) 25 mg PO DAILY PRN PRN Reason: Anxiety Magnesium Hydroxide (Milk Of Magnesia 30 Ml Oral.Susp) 30 ml PO DAILY PRN PRN Reason: Constipation Last Admin: 02/18/24 19:18 Dose: 30 ml Metformin HCl (Metformin Hcl 1,000 Mg Tablet) 1,000 mg PO BID [facility] Last Admin: 02/21/24 08:35 Dose: 1,000 mg Metoprolol Succinate (Metoprolol Succinate Er 25 Mg Tab.Er.24h) 25 mg PO DAILY [facility]; Protocol Last Admin: 02/21/24 08:36 Dose: 25 mg Mirtazapine (Mirtazapine 7.5 Mg Tablet) 22.5 mg PO BEDTIME [facility] Last Admin: 02/20/24 20:33 Dose: 22.5 mg Nicotine Polacrilex (Nicotine Polacrilex 2 Mg Gum) 4 mg BUCCAL Q2H PRN PRN Reason: Nicotine Cravings Polyethylene Glycol (Polyethylene Glycol 3350 17 Gm Powd.Pack) 17 gm PO DAILY [facility] Last Admin: 02/21/24 08:41 Dose: Not Given Senna/Docusate Sodium (Sennosides/Docusate Sodium Tablet) 1 tab PO BID [facility] Last Admin: 02/21/24 08:36 Dose: 1 tab Triamcinolone Acetonide (Triamcinolone Acet 0.1 % Cream 15 Gm Tube) 1 appl TOPICAL DAILY [facility]; Protocol Last Admin: 02/21/24 08:41 Dose: 1 appl Allergies Allergies Allergy/AdvReac Type Severity Reaction Status Date / Time haloperidol [From Haldol] Allergy Intermediate Agitated Verified 02/09/24 23:42 lithium Allergy Intermediate Agitated Verified 02/09/24 23:42 oxcarbazepine Allergy Unknown RASH Verified 02/09/24 23:42 [From TRILEPTAL] fluphenazine [From Prolixin] Allergy akathisia Verified 02/09/24 23:42 Assessment & Plan Assessment & Plan (1) Schizoaffective disorder: Status: Acute Code(s): F25.9 - Schizoaffective disorder, unspecified (2) Urinary incontinence: Status: Acute Code(s): R32 - Unspecified urinary incontinence (3) Diabetes mellitus: Status: Acute Code(s): E11.9 - Type 2 diabetes mellitus without complications Plan pt's description of sensation sounds very similar to patients' usual description of akathisia. pt is not on a high potency neuroleptic, so other causes should be investigated. trazodone is a possible culprit and likely not necessary as pt is also on clozapine 300 mg at HS. will plan to taper trazodone and observe for resolution of restlessness. per note from last visit on M5, pt should avoid anticholinergics. it is unclear why pt is on cogentin, as clozaril is already very anticholinergic and unlikely to cause EPS. once stably off trazodone would also plan to taper off of cogentin in effort to improve enuresis. pt also appears generally overmedicated, would try to streamline regimen. quite prominent sialorrhea, would also consider medical mgmt as needed. unclear if UTI affecting pt's mental status as well, will observe for changes with Tx of UTI. continue home meds for now aside from below. PT eval for gait anomaly. differential tester eval for proper supplement. taper trazodone to see if akathisia resolves (if it is indeed akathisia). plan to taper cogentin as likely not indicated as pt is on clozapine. UTI - on antibiotics 02/11/ pt quite withdrawn and dependent- limited engagement CTP 02/12 dec clozapine to 250mg see if less am sedation- 02/13: Keeping to self. Laying in bed. Guarded. Brief during 1:1. Pt reports feeling depressed and anxious ; pt stated, I wish I wasn't going through this. I'm trying to be patient to get better . Pt reports sleeping well. denies SI/HI/VH/AH. Continue current tx plan. 02/14 continue tx. 02/15 continue tx. 02/16 continue tx. 02/17 continue tx. 02/19: continue current management and treatment plan. 02/20 will check clozaril levels per outpatient providers request. Reason for continued inpatient stay Substantial Risk for: inability to function Time Spent With Patient Time: Total time managing care of this patient today ____ minutes.
[2024-02-21 21:03] LABS: Glucose, Whole Blood 207 mg/dL (60-115)
[2024-02-21 21:25] VITALS: BP 131/78; PULSE 107; RESP 16; TEMP 37.1; O2SAT 97
[2024-02-21] MEDS: Mirtazapine 7.5 MG TABLET 22.5 MG PO (21:41)
[2024-02-21] MEDS: cloZAPine 200 MG, cloZAPine 50 MG 250 MG PO (21:42)
[2024-02-22 07:51] VITALS: BP 103/64; PULSE 91; RESP 20; TEMP 36.6; O2SAT 94
[2024-02-22 09:07] LABS: Glucose, Whole Blood 105 mg/dL (60-115)
[2024-02-22] MEDS: Empagliflozin 25 MG TABLET PO (09:43)
[2024-02-22] MEDS: Divalproex Sodium ER 250 MG TAB.ER.24H 750 MG PO ×2 (09:43→21:40)
[2024-02-22] MEDS: clonazePAM 0.5 MG TABLET PO ×3 (09:43→21:41)
[2024-02-22] MEDS: metFORMIN HCl 1,000 MG TABLET 1000 MG PO ×2 (09:43→21:41)
[2024-02-22] MEDS: Sennosides/Docusate Sodium TABLET 1 TAB PO ×2 (09:43→21:41)
[2024-02-22] MEDS: Gabapentin 100 MG CAPSULE PO ×3 (09:43→21:41)
[2024-02-22 09:44] VITALS: BP 103/64; PULSE 91
[2024-02-22] MEDS: Atorvastatin Calcium 40 MG TABLET PO (09:44)
[2024-02-22] MEDS: Gabapentin 400 MG CAPSULE 800 MG PO ×3 (09:44→21:40)
[2024-02-22] MEDS: Metoprolol Succinate ER 25 MG TAB.ER.24H PO (09:44)
--- NOTE | 2024-02-22 10:59 | P.PNPSI_ITS ---
Subjective Subjective Date of Service: 02/22/24 Reason For Visit: anxiety/depression Subjective Notes: Conditional Voluntary Interim History: Pt slept through the night. He denies SI/HI. He reports constipation is better. He reports less dizziness. No exacerbation of EPS with discontinuation of cogentin. No behavioral concerns. Pt has been visible on the unit, but stays in bed for some time during the day. Diagnostics Vital Signs (24Hr): Vital Signs - 24 hr 02/21/24 21:25 02/22/24 07:51 02/22/24 09:44 Temperature 98.7 F 97.9 F Pulse Rate 107 H 91 91 Respiratory Rate 16 20 Blood Pressure 131/78 103/64 103/64 Pulse Oximetry 97 94 Oxygen Delivery Method Room Air Room Air BMI result Body Mass Index 29.4 Labs 02/10/24 00:37 02/17/24 08:18 Labs: Laboratory Results - last 48 hr 02/20/24 02/21/24 02/21/24 20:39 08:46 20:59 POC Glucose 217 H 101 207 H 02/22/24 09:03 POC Glucose 105 Medications Medications Current Medications Acetaminophen (Acetaminophen 325 Mg Tablet) 650 mg PO Q6H PRN PRN Reason: Headache/Pain Mild Scale (1-3) Al Hydroxide/Mg Hydroxide (Magnesium Hydrox/Alum Hydrox 30 Ml Oral.Susp) 30 ml PO Q6H PRN PRN Reason: Heartburn/Nausea Atorvastatin Calcium (Atorvastatin Calcium 40 Mg Tablet) 40 mg PO DAILY [facility] Last Admin: 02/22/24 09:44 Dose: 40 mg Clonazepam (Clonazepam 0.5 Mg Tablet) 0.5 mg PO TID [facility] Last Admin: 02/22/24 09:43 Dose: 0.5 mg Clozapine 200 mg/ Clozapine 50 (mg) 250 mg PO BEDTIME [facility] Last Admin: 02/21/24 21:42 Dose: 250 mg Divalproex Sodium (Divalproex Sodium Er 250 Mg Tab.Er.24h) 750 mg PO BID [facility] Last Admin: 02/22/24 09:43 Dose: 750 mg Empagliflozin (Empagliflozin 25 Mg Tablet) 25 mg PO DAILY [facility] Last Admin: 02/22/24 09:43 Dose: 25 mg Gabapentin (Gabapentin 100 Mg Capsule) 100 mg PO TID [facility] Last Admin: 02/22/24 09:43 Dose: 100 mg Gabapentin (Gabapentin 400 Mg Capsule) 800 mg PO TID [facility] Last Admin: 02/22/24 09:44 Dose: 800 mg Hydroxyzine HCl (Hydroxyzine Hcl 25 Mg Tablet) 25 mg PO DAILY PRN PRN Reason: Anxiety Magnesium Hydroxide (Milk Of Magnesia 30 Ml Oral.Susp) 30 ml PO DAILY PRN PRN Reason: Constipation Last Admin: 02/18/24 19:18 Dose: 30 ml Metformin HCl (Metformin Hcl 1,000 Mg Tablet) 1,000 mg PO BID [facility] Last Admin: 02/22/24 09:43 Dose: 1,000 mg Metoprolol Succinate (Metoprolol Succinate Er 25 Mg Tab.Er.24h) 25 mg PO DAILY [facility]; Protocol Last Admin: 02/22/24 09:44 Dose: 25 mg Mirtazapine (Mirtazapine 7.5 Mg Tablet) 22.5 mg PO BEDTIME [facility] Last Admin: 02/21/24 21:41 Dose: 22.5 mg Nicotine Polacrilex (Nicotine Polacrilex 2 Mg Gum) 4 mg BUCCAL Q2H PRN PRN Reason: Nicotine Cravings Polyethylene Glycol (Polyethylene Glycol 3350 17 Gm Powd.Pack) 17 gm PO DAILY [facility] Last Admin: 02/22/24 09:46 Dose: Not Given Senna/Docusate Sodium (Sennosides/Docusate Sodium Tablet) 1 tab PO BID [facility] Last Admin: 02/22/24 09:43 Dose: 1 tab Triamcinolone Acetonide (Triamcinolone Acet 0.1 % Cream 15 Gm Tube) 1 appl TOPICAL DAILY [facility]; Protocol Last Admin: 02/22/24 09:46 Dose: Not Given Allergies Allergies Allergy/AdvReac Type Severity Reaction Status Date / Time haloperidol [From Haldol] Allergy Intermediate Agitated Verified 02/09/24 23:42 lithium Allergy Intermediate Agitated Verified 02/09/24 23:42 oxcarbazepine Allergy Unknown RASH Verified 02/09/24 23:42 [From TRILEPTAL] fluphenazine [From Prolixin] Allergy akathisia Verified 02/09/24 23:42 Assessment & Plan Assessment & Plan (1) Schizoaffective disorder: Status: Acute Code(s): F25.9 - Schizoaffective disorder, unspecified (2) Urinary incontinence: Status: Acute Code(s): R32 - Unspecified urinary incontinence (3) Diabetes mellitus: Status: Acute Code(s): E11.9 - Type 2 diabetes mellitus without complications Plan pt's description of sensation sounds very similar to patients' usual description of akathisia. pt is not on a high potency neuroleptic, so other causes should be investigated. trazodone is a possible culprit and likely not necessary as pt is also on clozapine 300 mg at HS. will plan to taper trazodone and observe for resolution of restlessness. per note from last visit on M5, pt should avoid anticholinergics. it is unclear why pt is on cogentin, as clozaril is already very anticholinergic and unlikely to cause EPS. once stably off trazodone would also plan to taper off of cogentin in effort to improve enuresis. pt also appears generally overmedicated, would try to streamline regimen. quite prominent sialorrhea, would also consider medical mgmt as needed. unclear if UTI affecting pt's mental status as well, will observe for changes with Tx of UTI. continue home meds for now aside from below. PT eval for gait anomaly. insurance claims representative eval for proper supplement. taper trazodone to see if akathisia resolves (if it is indeed akathisia). plan to taper cogentin as likely not indicated as pt is on clozapine. UTI - on antibiotics 02/11/ pt quite withdrawn and dependent- limited engagement CTP 02/12 dec clozapine to 250mg see if less am sedation- 02/13: Keeping to self. Laying in bed. Guarded. Brief during 1:1. Pt reports feeling depressed and anxious ; pt stated, I wish I wasn't going through this. I'm trying to be patient to get better . Pt reports sleeping well. denies SI/HI/VH/AH. Continue current tx plan. 02/14 continue tx. 02/15 continue tx. 02/16 continue tx. 02/17 continue tx. 02/19: continue current management and treatment plan. 02/20 will check clozaril levels per outpatient providers request. 02/21 continue tx. dc tomorrow. Reason for continued inpatient stay Substantial Risk for: inability to function Time Spent With Patient Time: Total time managing care of this patient today ____ minutes.
[2024-02-22 21:00] VITALS: BP 110/63; PULSE 100; RESP 18; TEMP 36.4; O2SAT 99
[2024-02-22] MEDS: cloZAPine 200 MG, cloZAPine 50 MG 250 MG PO (21:39)
[2024-02-22] MEDS: Mirtazapine 7.5 MG TABLET 22.5 MG PO (21:40)
[2024-02-22 22:11] LABS: Glucose, Whole Blood 183 mg/dL (60-115)
[2024-02-23 08:00] VITALS: BP 115/73; PULSE 82; RESP 14; TEMP 36.3; O2SAT 96
[2024-02-23] MEDS: polyethylene glycoL 3350 17 GM POWD.PACK PO (09:00)
[2024-02-23 09:01] VITALS: BP 115/73; PULSE 82
[2024-02-23] MEDS: Divalproex Sodium ER 250 MG TAB.ER.24H 750 MG PO (09:01)
[2024-02-23] MEDS: Sennosides/Docusate Sodium TABLET 1 TAB PO (09:01)
[2024-02-23] MEDS: metFORMIN HCl 1,000 MG TABLET 1000 MG PO (09:01)
[2024-02-23] MEDS: Metoprolol Succinate ER 25 MG TAB.ER.24H PO (09:01)
[2024-02-23] MEDS: Gabapentin 400 MG CAPSULE 800 MG PO (09:01)
[2024-02-23] MEDS: Atorvastatin Calcium 40 MG TABLET PO (09:01)
[2024-02-23] MEDS: Gabapentin 100 MG CAPSULE PO (09:02)
[2024-02-23] MEDS: Empagliflozin 25 MG TABLET PO (09:02)
[2024-02-23] MEDS: clonazePAM 0.5 MG TABLET PO (09:02)
--- NOTE | 2024-02-23 10:36 | PM.PSYDC ---
DS: Providers Provider Date of Service: 02/23/24 Date of admission: 02/10/24 13:16 Date of discharge: 02/23/24 Primary care physician: Jess Paris MD Attending physician on admission: Raymond Lloyd Discharging clinician: Jannie Jovel DS: Diagnosis Discharge Diagnosis (1) Schizoaffective disorder: Status: Acute (2) Urinary incontinence: Status: Acute (3) Diabetes mellitus: Status: Acute DS: Medications Discharge Medications Home Medications: Home Medications ?Medication ?Instructions ?Recorded ?Confirmed lancets 28 gauge (FreeStyle 07/22/20 02/10/24 Lancets) dulaglutide 3 mg/0.5 mL 3 mg subcut QWEEK 09/23/23 02/10/24 subcutaneous pen injector (Trulicity) empagliflozin 25 mg tablet 25 mg PO DAILY 09/23/23 02/10/24 (Jardiance) Previous Rx's ?Medication ?Instructions ?Recorded atorvastatin 40 mg tablet 40 mg PO DAILY #30 tabs 02/23/24 clonazepam 0.5 mg tablet 0.5 mg PO TID #90 tabs 02/23/24 clozapine 50 mg tablet 250 mg (5 x 50 mg) PO BEDTIME #150 02/23/24 tabs gabapentin 400 mg capsule 800 mg (2 x 400 mg) PO TID #90 caps 02/23/24 metformin 1,000 mg tablet 1,000 mg PO BID #60 tabs 02/23/24 metoprolol succinate 25 mg 25 mg PO DAILY #30 tabs 02/23/24 tablet,extended release 24 hr mirtazapine 15 mg tablet 15 mg PO BEDTIME #30 tabs 02/23/24 mirtazapine 15 mg tablet 15 mg PO BEDTIME #30 tabs 02/23/24 polyethylene glycol 3350 17 gram 17 g PO DAILY #30 ea 02/23/24 oral powder packet polyethylene glycol 3350 17 gram 17 g PO DAILY #30 ea 02/23/24 oral powder packet sennosides 8.6 mg-docusate sodium 1 tab PO BID #60 tabs 02/23/24 50 mg tablet (Senna Plus) triamcinolone acetonide 0.1 % 1 appl topical DAILY #15 grams 02/23/24 topical cream Mental Status Exam Mental Status Exam Narrative: Pt is alert and oriented x 3; behavior is cooperative; casually groomed; mood is described as good and affect congruent but constricted. eye contact appropriate; Speech is normal rate, low volume and not pressured; thought process is organized and goal directed; Thought content is on tx; denies SI/HI/VH/AH. Data Data Completed and Pending Completed studies during hospitalization [Text1]: 02/16/24 02/17/24 02/17/24 20:36 08:18 08:22 Absolute Neuts (auto) 4.8 Creatinine 0.88 Estim Creat Clear Calc 109.1 Estimated GFR > 60 POC Glucose 123 H 88 Clozapine Norclozapine 02/18/24 02/18/24 02/19/24 08:15 22:18 08:33 Absolute Neuts (auto) Creatinine Estim Creat Clear Calc Estimated GFR POC Glucose 100 152 H 103 Clozapine Norclozapine 02/19/24 02/20/24 02/20/24 20:39 08:38 20:39 Absolute Neuts (auto) Creatinine Estim Creat Clear Calc Estimated GFR POC Glucose 252 H 93 217 H Clozapine Norclozapine 02/21/24 02/21/24 02/22/24 08:46 20:59 09:03 Absolute Neuts (auto) Creatinine Estim Creat Clear Calc Estimated GFR POC Glucose 101 207 H 105 Clozapine Norclozapine 02/22/24 02/22/24 18:08 22:05 Absolute Neuts (auto) Creatinine Estim Creat Clear Calc Estimated GFR POC Glucose 183 H Clozapine Pending Norclozapine Pending 02/10/24 Unknown Urine clean catch - Urine roca top Urine Culture - Final Klebsiella pneumoniae DS: Summary Hospital Course Hospital Course: per CARE team rodger, pt BIBA after contacting EMS himself due to feeling uncomfortably heightened sense of restlessness, in conjunction with depression and anxiety. he reported having felt this way in the past and it's indicating he needed help. reported increase in anxiety, depression and restlessness for the several days prior to presentation. per Hx, pt has had episodes of rapid decompensation leading to aggression presaged by current symptoms, and he has been known to be non-compliant with his medications at times when in the community. he appeared with depressed affect, thought blocking, and denying psychotic Sx to CARE team staff. he reported poor sleep and appetite over the several days leading up to hospitalization. on interview with MD and medical student, pt is calm and cooperative. he emphasizes his discomfort from the restlessness, saying, i wanna jump out of my skin. he feels this way not 100% of the time, but frequently. recently, with increased depression and anxiety, it has ta2ntpt worse. he reports he has episodes like this every 1-2 years, and believes his most recent one was about a year ago (he was on M5 five months ago for similar). he reports he is feeling a little better than last night, but still quite uncomfortable. states he has been taking his medications. agrees to taper of trazodone as likely not needed for sleep and as potentially causing akathisia. also open to taper of cogentin as also likely not needed and recommended against due to his chronic urinary incontinence. denies any safety concerns presently. HOSPITAL COURSE On the unit, pt was admitted on a CV and placed on 15 minutes checks for safety. Pt initially presented as subjective restless, pacing, unclear if some degree of myoclonus- this seem to be related more to medication side effect- either excessive serotonin overload with combination of remeron 22.5mg and trazodone 200mg po qhs, less likely akathisia. He also presented with some degree of polypharmacy- including highly anticholinergic medications (clozapine and high dose cogentin), high dose of clonazepam which probably was somewhat treating restlessness, gabapentin. Note that clozaril(530)/norclozaril (185) ratio on 02/10/24 of 2.86, suggest some inhibition of clozaril metabolism which leads to more side effect. Although, initially pt denied constipation, later reported no BM in several days. He was started on regular bowel regimen consisting of senakot 1 tab po BID and miralax. Initially, clozaril was decreased from 300mg po qhs to 250mg po qhs. Trazodone was stopped, remeron was continued. Seroquel was stopped. Cogentin was also stopped- no signs of worsening EPS. No abnormal movement were noted and gradually pt presented as much less restless. He was able to sleep through the night. Clonazepam was lowered from 1mg po TID to 0.5mg po TID- he tolerated this change well without exacerbation of anxiety, decrease daytime sedation. He gradually attended most assigned groups. He did not present with overt psychosis or delusional content. There were no incidences of disruptive behaviors nor need for restraints. Status at Discharge Cognitive/behavioral status at discharge: Pt with euthimic affect, although constricted range. No SI/HI. No overt psychosis or delusions. He was sleeping and eating well. No aggression towards self or others. Functional status at discharge: uses cane/walker Overall status at discharge: patient is progressing back to baseline Time Spent with Patient Time attestation: Total time managing care of this patient today __35__ minutes. Time spent: Greater than 30 minutes Discharge Plan Discharge Anticipated Discharge Date/Time: 02/23/24 10:17 Patient Disposition: Home, Self-Care Discharge Diagnosis: Schizophrenia Referrals: Roxie Still (Therapy) [Other] - 03/01/24 10:00 am (IN OFFICE APPOINTMENT) Dr. Haile Madrid (Psychiatry) [Other] - 02/28/24 12:00 pm (IN OFFICE APPOINTMENT) Jess Paris MD [Primary Care Provider] - 03/15/24 3:00 pm (PCP office confirmed follow up appt.for March 15 at 10:15am) Discharge Medications: New atorvastatin 40 mg Tablet 40 mg PO DAILY Qty: 30 0RF clonazepam 0.5 mg Tablet 0.5 mg PO TID Qty: 90 0RF metoprolol succinate 25 mg Tablet Extended Release 24 Hr 25 mg PO DAILY Qty: 30 0RF Protocol: Hold for SBP/HR < HOLD for SBP < : 90 HOLD for HR < : 60 clozapine 50 mg Tablet 250 mg PO BEDTIME Qty: 150 0RF mirtazapine 15 mg tablet 15 mg PO BEDTIME Qty: 30 0RF sennosides-docusate sodium [Senna Plus] 8.6-50 mg Tablet 1 tab PO BID Qty: 60 0RF polyethylene glycol 3350 17 gram powder in packet 17 g PO DAILY Qty: 30 0RF triamcinolone acetonide 0.1 % Cream 1 appl topical DAILY Qty: 15 0RF Protocol: Apply to: Apply to: face metformin 1,000 mg Tablet 1,000 mg PO BID Qty: 60 0RF gabapentin 400 mg Capsule 800 mg PO TID Qty: 90 0RF mirtazapine 15 mg tablet 15 mg PO BEDTIME Qty: 30 0RF polyethylene glycol 3350 17 gram Powder In Packet 17 g PO DAILY Qty: 30 0RF Continued (DME) lancets [FreeStyle Lancets] 28 gauge misc topical DAILY Jardiance 25 mg tablet 25 mg PO DAILY Trulicity 3 mg/0.5 mL pen injector 3 mg subcut QWEEK Discontinued metformin 1,000 mg tablet 1 tab PO BID Qty: 60 0RF metoprolol succinate 25 mg tablet extended release 24 hr 1 tab PO DAILY Qty: 30 0RF atorvastatin 40 mg tablet 40 mg PO DAILY benztropine 0.5 mg Tablet 1.5 mg PO BID Qty: 90 0RF clonazepam 1 mg Tablet 1 mg PO TID Qty: 90 0RF mirtazapine 45 mg tablet 22.5 mg PO BEDTIME Qty: 15 0RF clozapine 100 mg tablet 300 mg PO BEDTIME Qty: 45 1RF gabapentin 800 mg tablet 1 tab PO TID Qty: 90 0RF trazodone 100 mg tablet 200 mg PO BEDTIME Qty: 60 0RF hydroxyzine HCl 25 mg tablet 1 tab PO DAILY PRN (Reason: Anxiety) Qty: 30 0RF gabapentin 100 mg capsule 100 mg PO TID Qty: 90 0RF divalproex 250 mg Tablet Extended Release 24 Hr 750 mg PO BID Qty: 180 0RF quetiapine 50 mg Tablet 50 mg PO BEDTIME PRN (Reason: insomnia) Qty: 30 0RF Discharge Orders: Discharge Order (Routine); Ordered 02/23/24 Ordered By: Jannie Jovel Diet: Diabetic diet Activity on Discharge: As tolerated Stand Alone Forms: Patient Portal Discharge page Print Language: Spanish Care Plan Goals: maintain mood No SI/HI No overt psychosis or delusions No aggression towards self or others Health Concerns: Follow up with PCP for routine care Plan of Treatment: Take medications as preescribed Go to nearest ED or call 911 in event of emergency Assessment: Pt with euthymic but constricted affect. No SI/HI. No overt psychosis or delusions. Sleeping and eating well. No aggression towards self or others.
[2024-02-23 12:56] LABS: Glucose, Whole Blood 109 mg/dL (60-115)
== END 2024-02-23 11:45 | disposition home or self-care (01) | DRG 885 ==
LOC: HO.ED 02-10 06:53 → HO.PADLT16 02-10 13:22
PROVIDERS: Emergency Medicine; Social Worker; Admitting Provider Psychiatry & Neurology Psychiatry; Emergency Provider Internal Medicine; PCP Family Medicine; Visit Provider Psychiatry & Neurology Psychiatry
DX: F20.9 Schizophrenia, unspecified (principal); E11.9 Type 2 diabetes mellitus without complications; R32 Unspecified urinary incontinence; K59.00 Constipation, unspecified; Z79.84 Long term (current) use of oral hypoglycemic drugs; Z79.85 Long-term (current) use of injectable non-insulin antidiabetic drugs; Z79.899 Other long term (current) drug therapy
CPT/HCPCS: 36415; 80053; 80061; 80159; 80164; 80307; 81001; 82140; 82565; 82607; 82746; 82947; 83036; 84439; 84443; 85025; 85048; 87086; 87088; 87186; 97161; 99285; S9485

== ENCOUNTER → 2024-02-10 13:16 | Outpatient (BNV) | payer MEDICARE, MEDICAID, SELFPAY | PROVIDERS: Admitting Provider Psychiatry & Neurology Psychiatry; Emergency Provider Internal Medicine; PCP Family Medicine; Visit Provider Psychiatry & Neurology Psychiatry | DX: F25.1 Schizoaffective disorder, depressive type (principal); R32 Unspecified urinary incontinence; E11.9 Type 2 diabetes mellitus without complications | CPT/HCPCS: 90792; 99231; 99232; 99239 ==

== ENCOUNTER 2024-02-25 08:46 | Emergency (ER) | payer MEDICARE, MEDICAID, SELFPAY ==
[2024-02-25 08:52] VITALS: BP 119/85; BP 142/78; PULSE 107; PULSE 97; RESP 16; TEMP 36.7; O2SAT 95; O2SAT 98; BMI 28.9
[2024-02-25 10:00] VITALS: BP 124/77; PULSE 86; RESP 16; O2SAT 96
[2024-02-25 11:17] VITALS: BP 124/77; PULSE 99; RESP 19; O2SAT 95
[2024-02-25 12:24] LABS: MANUAL DIFF FLAG NO
[2024-02-25 12:27] LABS: Basophils Absolute Auto 0.1 X10*3/uL (0.0-0.2); Basophils Percent Auto 0.9 % (0-2); Eosinophils Absolute Auto 0.1 X10*3/uL (0.0-0.4); Eosinophils Percent Auto 1.7 % (0-4); Hemoglobin 14.9 g/dl (14.0-18.0); Imm Gran Abs Auto 0.02 X10*3/uL (0.00-0.03); Imm Gran Pct Auto 0.3 % (0.0-0.4); Lymphocytes Absolute Auto 1.8 X10*3/uL (1.2-4.9); Lymphocytes Percent Auto 25.6 % (20-40); Mean Corpuscular HGB Conc 33.1 g/dl (31.0-36.0); Mean Corpuscular Hemoglobin 28.8 pg (27.0-33.0); Mean Corpuscular Volume 86.9 fL (80.0-98.0); Mean Platelet Volume 9.3 fL (9.4-12.4); Monocytes Absolute Auto 0.6 X10*3/uL (0.1-1.2); Monocytes Percent Auto 9.2 % (2-11); Neutrophils Absolute Auto 4.4 x10*3/uL (2.0-8.3); Neutrophils Percent Auto 62.3 % (45-73); Platelet Count 205 X10*3/uL (160-400); Red Blood Count 5.18 X10*6/uL (4.60-5.80); Red Cell Distribution Width 15.1 % (11.0-16.0)
[2024-02-25 12:28] LABS: Appearance Urine Clear; Color Urine Yellow; Glucose Urine UA >=1000 mg/dL (Negative); Leukocyte Esterase Urine Negative (Negative); Nitrite Urine Negative (Negative); UMIC TRIGGER UACC YES; Urine Blood Negative (Negative); Urine Ketones Negative (Negative); Urine Protein Negative (Neg-Trace)
[2024-02-25 12:30] LABS: Bacteria Urine None Seen (None Seen); Hyaline Casts Urine 0-2 /LPF (0-2); RBC Urine 0-2 /HPF (0-2); Squamous Epithelial Cell Urine 0-2 /HPF (0-2); WBC Urine 0-5 /HPF (0-5)
[2024-02-25 12:37] LABS: Amphetamine Screen Urine Not Detected (Not Detect); Barbiturates, Urine Not Detected (Not Detect); Benzodiazepines Screen Urine Not Detected (Not Detect); Buprenorphine Scr Not Detected (Not Detect); Cannabinoid Screen Urine Not Detected (Not Detect); Cocaine Screen Urine Not Detected (Not Detect); Fentanyl, urine Not Detected (Not Detect); Methadone Screen, Urine Not Detected (Not Detect); Opiate Screen Urine Not Detected (Not Detect); Oxycodone Screen Urine Not Detected (Not Detect); Phencyclidine Screen Urine Not Detected (Not Detect)
[2024-02-25 12:38] LABS: Alanine Aminotransferase 18 U/L (0-40); Albumin Level 4.4 g/dL (3.5-5.0); Alkaline Phosphatase 91 U/L (39-117); Anion Gap 13 (12-20); Aspartate Amino Transferase 17 U/L (5-37); Bilirubin Total 0.3 mg/dL (0.0-1.0); Blood Urea Nitrogen 17 mg/dL (9-16); Calcium 9.7 mg/dL (8.4-10.2); Carbon Dioxide 27 mmol/L (22-29); Chloride 105 mmol/L (96-108); Creatinine Clr Calc Pharmacy 103.7; Estimated Glomerular Filt Rate > 60; Glucose Random 134 mg/dL (60-115); Magnesium 2.6 mg/dL (1.6-2.6); Potassium 4.7 mmol/L (3.3-5.1); Sodium 140 mmol/L (135-145); Total Protein 6.9 g/dL (6.5-8.0)
[2024-02-25 12:41] LABS: Ethanol < 10 mg/dL
[2024-02-25 12:47] VITALS: BP 111/60; PULSE 96; RESP 18; TEMP 36.5; O2SAT 96
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
[2024-02-25] MEDS: clonazePAM 1 MG TABLET PO (13:15)
--- NOTE | 2024-02-25 18:57 | PC.NURSE ---
patient appears to remain at rest presently respirations are even and unlabored patient appears in no distress.
[2024-02-25 21:59] VITALS: BP 118/88; PULSE 99; RESP 18; TEMP 36.1; O2SAT 97
[2024-02-25] MEDS: Mirtazapine 15 MG TABLET PO (22:14)
[2024-02-25] MEDS: metFORMIN HCl 1,000 MG TABLET 1000 MG PO (22:14)
[2024-02-25] MEDS: Gabapentin 400 MG CAPSULE 800 MG PO (22:14)
[2024-02-25] MEDS: cloZAPine 200 MG, cloZAPine 50 MG 250 MG PO (22:14)
[2024-02-25] MEDS: clonazePAM 0.5 MG TABLET PO (22:14)
[2024-02-25] MEDS: Sennosides/Docusate Sodium TABLET 1 TAB PO (22:14)
[2024-02-26 06:30] VITALS: BP 117/82; PULSE 95; TEMP 36.3; O2SAT 100
--- NOTE | 2024-02-26 07:27 | PC.NURSE ---
Assumed care of patient at 0645. No signs of distress, breathing is even and unlabored. Patient is observed resting quietly in their bed.
[2024-02-26] MEDS: Atorvastatin Calcium 40 MG TABLET PO (09:27)
[2024-02-26] MEDS: metFORMIN HCl 1,000 MG TABLET 1000 MG PO ×2 (09:27→21:00)
[2024-02-26] MEDS: Gabapentin 400 MG CAPSULE 800 MG PO ×3 (09:28→21:00)
[2024-02-26] MEDS: Metoprolol Succinate ER 25 MG TAB.ER.24H PO (09:28)
[2024-02-26] MEDS: clonazePAM 0.5 MG TABLET PO ×3 (09:28→21:00)
[2024-02-26] MEDS: Sennosides/Docusate Sodium TABLET 1 TAB PO ×2 (09:28→21:00)
[2024-02-26] MEDS: Empagliflozin 25 MG TABLET PO (10:16)
[2024-02-26] MEDS: Triamcinolone Acet 0.1 % Cream 15 GM TUBE 1 APPL TOPICAL (10:16)
[2024-02-26 15:55] VITALS: BP 117/80; PULSE 98; RESP 16; TEMP 36.2; O2SAT 98
--- NOTE | 2024-02-26 16:10 | MHC.EDTECH ---
THIS PCT ASSUMED CARE OF PATIENT AT 1500 ,PATIENT AWAKE ,VITALS TAKEN ,PATIENT USE THE BATHROOM ,HAD A SANDWICH AND DIET EMILY HIPOLITO FOR SNACK ,PATIENT CALM AND COOPERATIVE ,SITTING IN THE COMMON AREA TALKING TO STAFF .
[2024-02-26 18:22] LABS: Glucose, Whole Blood 146 mg/dL (60-115)
--- NOTE | 2024-02-26 19:08 | PC.NURSE ---
patient appears to remain relaxed in group area at present appears to have no issues at present seated watching television.
[2024-02-26] MEDS: Mirtazapine 15 MG TABLET PO (21:00)
[2024-02-26] MEDS: cloZAPine 200 MG, cloZAPine 50 MG 250 MG PO (21:00)
[2024-02-27 06:26] VITALS: BP 102/65; PULSE 100; RESP 18; TEMP 36.6; O2SAT 96
--- NOTE | 2024-02-27 07:10 | PC.NURSE ---
Assumed care of patient at 0645. No signs of distress, breathing is even and unlabored. Patient is observed resting quietly in their bed.
[2024-02-27] MEDS: Metoprolol Succinate ER 25 MG TAB.ER.24H PO (09:23)
[2024-02-27] MEDS: Sennosides/Docusate Sodium TABLET 1 TAB PO ×2 (09:23→21:41)
[2024-02-27] MEDS: Triamcinolone Acet 0.1 % Cream 15 GM TUBE 1 APPL TOPICAL (09:23)
[2024-02-27] MEDS: Atorvastatin Calcium 40 MG TABLET PO (09:24)
[2024-02-27] MEDS: metFORMIN HCl 1,000 MG TABLET 1000 MG PO ×2 (09:24→21:42)
[2024-02-27] MEDS: Gabapentin 400 MG CAPSULE 800 MG PO ×3 (09:24→21:43)
[2024-02-27] MEDS: clonazePAM 0.5 MG TABLET PO ×3 (09:24→21:42)
[2024-02-27] MEDS: Empagliflozin 25 MG TABLET PO (10:08)
[2024-02-27 14:20] VITALS: BP 123/76; PULSE 126; RESP 18; TEMP 36.6; O2SAT 97
[2024-02-27 18:33] LABS: Glucose, Whole Blood 87 mg/dL (60-115)
[2024-02-27] MEDS: cloZAPine 200 MG, cloZAPine 50 MG 250 MG PO (21:41)
[2024-02-27] MEDS: Mirtazapine 15 MG TABLET PO (21:42)
[2024-02-28 06:06] VITALS: BP 113/68; PULSE 87; TEMP 36.3; O2SAT 97
[2024-02-28] MEDS: Sennosides/Docusate Sodium TABLET 1 TAB PO (08:41)
[2024-02-28] MEDS: Atorvastatin Calcium 40 MG TABLET PO (08:41)
[2024-02-28 08:42] VITALS: BP 113/68; PULSE 87
[2024-02-28] MEDS: metFORMIN HCl 1,000 MG TABLET 1000 MG PO (08:42)
[2024-02-28] MEDS: polyethylene glycoL 3350 17 GM POWD.PACK PO (08:42)
[2024-02-28] MEDS: Metoprolol Succinate ER 25 MG TAB.ER.24H PO (08:42)
[2024-02-28] MEDS: Gabapentin 400 MG CAPSULE 800 MG PO (08:42)
[2024-02-28] MEDS: clonazePAM 0.5 MG TABLET PO (08:42)
[2024-02-28 12:12] VITALS: BP 113/68; PULSE 87; RESP 18; TEMP 36.3; O2SAT 97
== END 2024-02-28 12:14 | disposition home or self-care (01) ==
PROVIDERS: Physician Assistant; Emergency Provider Emergency Medicine; PCP Family Medicine
DX: F41.9 Anxiety disorder, unspecified (principal); F25.9 Schizoaffective disorder, unspecified; E11.9 Type 2 diabetes mellitus without complications; Z79.02 Long term (current) use of antithrombotics/antiplatelets; Z79.899 Other long term (current) drug therapy; Z79.84 Long term (current) use of oral hypoglycemic drugs
CPT/HCPCS: 36415; 80053; 80307; 81001; 82947; 83735; 85025; 99284; 99285; S9485

== ENCOUNTER 2024-03-21 11:18 | Outpatient (REF) | payer MEDICARE, MEDICAID, SELFPAY ==
[2024-03-21 13:06] LABS: Valproate < 12.5 mcg/mL (50.0-100.0)
[2024-03-27 06:03] LABS: Clozapine (Clozaril) 280 mcg/L; Norclozapine 160 mcg/L (25-400)
== END 2024-03-21 11:19 | disposition home or self-care (01) ==
LOC: HO.LABR 11:18
PROVIDERS: PCP Family Medicine; Visit Provider Clinical Nurse Specialist Psychiatric/Mental Health, Adult
DX: Z79.899 Other long term (current) drug therapy (principal)
CPT/HCPCS: 36415; 80159; 80164

== ENCOUNTER 2024-04-19 13:04 | Outpatient (REF) | payer MEDICARE, MEDICAID, SELFPAY ==
[2024-04-19 14:11] LABS: Valproate < 12.5 mcg/mL (50.0-100.0)
[2024-04-25 06:38] LABS: Clozapine (Clozaril) 318 mcg/L; Norclozapine 194 mcg/L (25-400)
== END 2024-04-19 13:05 | disposition home or self-care (01) ==
LOC: HO.LABR 13:04
PROVIDERS: PCP Family Medicine; Visit Provider Clinical Nurse Specialist Psychiatric/Mental Health, Adult
DX: Z79.899 Other long term (current) drug therapy (principal)
CPT/HCPCS: 36415; 80159; 80164

== ENCOUNTER 2024-04-22 21:31 | Emergency (ER) | payer MEDICARE, MEDICAID, SELFPAY ==
[2024-04-22 21:43] VITALS: BP 115/80; BP 124/92; PULSE 107; PULSE 112; RESP 16; TEMP 36.4; O2SAT 98; BMI 36.3
--- OUTSIDE RECORDS SUMMARY | 2024-04-22 22:13 | XMS_ITS ---
Author Organization [facility] Address [address] [place] [address] Care Team Providers Care Radius Grinder Name Role Phone Jess Paris MD Primary Care Provider Jessika vailable Sonu Zelaya Unavailable [phone] REASON FOR VISIT Patient presents today for a COLON SCREENING Encounters Encounter Location Date Provider Diagnosis [facility] [address] [place] [address] 03/31/2023 Sonu Zelaya PLAN OF TREATMENT Next Appt Details Provider Name:Sonu Zelaya , 05/03/2024 04:00:00 PM, [address], [address], [place], [address],
--- OUTSIDE RECORDS SUMMARY | 2024-04-22 22:13 | XMS_ITS ---
Author Organization [facility] Address [address] [place] [address] Care Team Providers Care Family Practice Nurse Practitioner Name Role Phone Jess Paris MD Primary Care Provider Jessika vailable Sonu Zelaya Unavailable [phone] REASON FOR VISIT New Pt no showed Encounters Encounter Location Date Provider Diagnosis [facility] [address] [place] [address] 07/08/2023 Sonu Zelaya PLAN OF TREATMENT Next Appt Details Provider Name:Sonu Zelaya , 05/03/2024 04:00:00 PM, [address], [address], [place], [address],
--- OUTSIDE RECORDS SUMMARY | 2024-04-22 22:13 | XMS_ITS ---
Author Organization [facility] Address [address] [place] [address] Care Team Providers Care Inside Sales Manager Name Role Phone Jess Paris MD Primary Care Provider Jessika vailable Sonu Zelaya Unavailable [phone] REASON FOR VISIT Patient presents today for a COLON SCREENING Encounters Encounter Location Date Provider Diagnosis [facility] [address] [place] [address] 07/08/2023 Sonu Zelaya PLAN OF TREATMENT Next Appt Details Provider Name:Sonu Zelaya , 05/03/2024 04:00:00 PM, [address], [address], [place], [address],
--- OUTSIDE RECORDS SUMMARY | 2024-04-22 22:14 | XMS_ITS | Patient Health Record ---
Author Organization [facility] Address [address] [place] [address] Care Team Providers Care Line Painting Machine Operator Name Role Phone Jess Paris MD Primary Care Provider Jessika vailable Sonu Zelaya Unavailable [phone] REASON FOR REFERRAL No Information SOCIAL HISTORY Sex Assigned At : Social History Observation Description Sex Assigned At Unknown Encounters Encounter Location Date Provider Diagnosis [facility] [address] [place] [address] 07/08/2023 Sonu Zelaya [facility] [address] [place] [address] 07/08/2023 Sonu Zelaya PLAN OF TREATMENT Next Appt Details Provider Name:Sonu Zelaya , 05/03/2024 04:00:00 PM, [address], [address], [place], [address], Insurance Providers Payer Name Payer Address Payer Phone Subscriber Number Group Number Insured Name Patient Relationship to Insured Coverage Start Date Coverage End Date MEDICARE OF [place] [address] [place] [address] [id number] JEANNETTE DALTON Self - patient is the insured MEDICAID OF [facility] [address] [place] [address] [id number] JEANNETTE DALTON Self - patient is the insured
--- NOTE | 2024-04-22 23:41 | PC.NURSE ---
this rn assumed care of pt, pt vss. pt reports he has been increasingly depressed. pt reports previous admission on M3 and reports he would like to speak to care team and possibly get admitted again. pt denies si/hi.
[2024-04-22 23:43] VITALS: BP 119/79; PULSE 84; RESP 16; TEMP 37.2; O2SAT 96
--- NOTE | 2024-04-23 00:27 | MHC.EDTECH ---
[facility]
[2024-04-23 00:39] LABS: MANUAL DIFF FLAG NO
[2024-04-23 00:45] LABS: Basophils Absolute Auto 0.1 X10*3/uL (0.0-0.2); Basophils Percent Auto 0.7 % (0-2); Eosinophils Absolute Auto 0.2 X10*3/uL (0.0-0.4); Eosinophils Percent Auto 2.7 % (0-4); Hematocrit 44.5 % (42.0-52.0); Hemoglobin 14.8 g/dl (14.0-18.0); Imm Gran Abs Auto 0.02 X10*3/uL (0.00-0.03); Imm Gran Pct Auto 0.2 % (0.0-0.4); Lymphocytes Absolute Auto 3.3 X10*3/uL (1.2-4.9); Lymphocytes Percent Auto 36.3 % (20-40); Mean Corpuscular HGB Conc 33.3 g/dl (31.0-36.0); Mean Corpuscular Hemoglobin 28.1 pg (27.0-33.0); Mean Corpuscular Volume 84.6 fL (80.0-98.0); Mean Platelet Volume 9.4 fL (9.4-12.4); Monocytes Absolute Auto 0.5 X10*3/uL (0.1-1.2); Neutrophils Absolute Auto 4.8 x10*3/uL (2.0-8.3); Neutrophils Percent Auto 54.1 % (45-73); Platelet Count 232 X10*3/uL (160-400); Red Blood Count 5.26 X10*6/uL (4.60-5.80); Red Cell Distribution Width 12.9 % (11.0-16.0)
[2024-04-23 00:51] LABS: Amphetamine Screen Urine Not Detected (Not Detect); Barbiturates, Urine Not Detected (Not Detect); Benzodiazepines Screen Urine Not Detected (Not Detect); Buprenorphine Scr Not Detected (Not Detect); Cannabinoid Screen Urine Not Detected (Not Detect); Cocaine Screen Urine Not Detected (Not Detect); Fentanyl, urine Not Detected (Not Detect); Methadone Screen, Urine Not Detected (Not Detect); Opiate Screen Urine Not Detected (Not Detect); Oxycodone Screen Urine Not Detected (Not Detect); Phencyclidine Screen Urine Not Detected (Not Detect)
[2024-04-23 00:57] LABS: Alanine Aminotransferase 12 U/L (0-40); Albumin Level 4.3 g/dL (3.5-5.0); Alkaline Phosphatase 104 U/L (39-117); Anion Gap 17 (12-20); Aspartate Amino Transferase 12 U/L (5-37); Bilirubin Total 0.5 mg/dL (0.0-1.0); Blood Urea Nitrogen 12 mg/dL (9-16); Calcium 9.9 mg/dL (8.4-10.2); Carbon Dioxide 22 mmol/L (22-29); Chloride 106 mmol/L (96-108); Creatinine Clr Calc Pharmacy 112.3; Estimated Glomerular Filt Rate > 60; Ethanol < 10 mg/dL; Glucose Random 104 mg/dL (60-115); Potassium 3.8 mmol/L (3.3-5.1); Sodium 141 mmol/L (135-145); Total Protein 6.6 g/dL (6.5-8.0)
--- NOTE | 2024-04-23 00:58 | PC.NURSE ---
pt changed over and belongings secured.
--- NOTE | 2024-04-23 00:59 | ED_ITS ---
HPI - Psych General Chief Complaint: Psychiatric Symptoms Stated Complaint: ANXIETY/DEPRESSION Time Seen by Provider: 04/23/24 00:29 Source: patient and EMS Mode of arrival: EMS Limitations: no limitations History of Present Illness ED Provider: january CAREY Narrative: Patient's history of anxiety and depression feels more depressed with more anxiety lately took his Ativan still feel anxious will like to talk to crisis. Denies any SI or HI no hallucination or delusion patient was admitted 2 months ago for similar situation upstairs Related Data Home Medications ?Medication ?Instructions ?Recorded ?Confirmed lancets 28 gauge (FreeStyle 07/22/20 02/10/24 Lancets) dulaglutide 3 mg/0.5 mL 3 mg subcut QWEEK 09/23/23 02/25/24 subcutaneous pen injector (Trulicity) empagliflozin 25 mg tablet 25 mg PO DAILY 09/23/23 02/25/24 (Jardiance) Previous Rx's ?Medication ?Instructions ?Recorded atorvastatin 40 mg tablet 40 mg PO DAILY #30 tabs 02/23/24 clonazepam 0.5 mg tablet 0.5 mg PO TID #90 tabs 02/23/24 clozapine 50 mg tablet 250 mg (5 x 50 mg) PO BEDTIME #150 02/23/24 tabs gabapentin 400 mg capsule 800 mg (2 x 400 mg) PO TID #90 caps 02/23/24 metformin 1,000 mg tablet 1,000 mg PO BID #60 tabs 02/23/24 metoprolol succinate 25 mg 25 mg PO DAILY #30 tabs 02/23/24 tablet,extended release 24 hr mirtazapine 15 mg tablet 15 mg PO BEDTIME #30 tabs 02/23/24 polyethylene glycol 3350 17 gram 17 g PO DAILY #30 ea 02/23/24 oral powder packet sennosides 8.6 mg-docusate sodium 1 tab PO BID #60 tabs 02/23/24 50 mg tablet (Senna Plus) triamcinolone acetonide 0.1 % 1 appl topical DAILY #15 grams 02/23/24 topical cream Allergies Allergy/AdvReac Type Severity Reaction Status Date / Time haloperidol [From Haldol] Allergy Intermediate Agitated Verified 04/22/24 21:45 lithium Allergy Intermediate Agitated Verified 04/22/24 21:45 oxcarbazepine Allergy Unknown RASH Verified 04/22/24 21:45 [From TRILEPTAL] fluphenazine [From Prolixin] Allergy akathisia Verified 04/22/24 21:45 Review of Systems 2 Review of Systems: Yes all other systems are reviewed and are negative [facility] Past Medical History Medical History Acute anxiety Schizoaffective disorder Diabetes 1.5, managed as type 2 Social History Social History Household Members: Other Household Members Other:: roommate. Housing: Apartment Housing Other:: [facility] supported apartment Do you presently have visiting nurse or other home services: Yes Alcohol intake: former Comment: utilizing a walker Patient Tobacco Use Status: Never used Tobacco Tobacco use type: Cigarette Smoked in Last 30 Days: No e-Cigarette/Vaping Use: Never Used Second Hand Smoke Exposure: No Use of substances other than those prescribed or required for medical reasons: No Advance Directives: No Advance Directives Information Provided: No Do you have a plan to hurt others: No Plan service: No Sexual orientation: Straight/Heterosexual Physical Exam 2 Vital Signs: Vital Signs: Last Vital Signs Temp 97.7 F 04/23/24 06:29 Pulse 98 04/23/24 06:29 Resp 16 04/23/24 06:29 BP 136/81 04/23/24 06:29 Pulse Ox 97 04/23/24 06:29 O2 Del Method Room Air 04/23/24 06:29 BMI result Body Mass Index 36.3 Appearance: Alert. Oriented X3. No acute distress. Eyes: PERRLA, No Nystagmus ENT: Pharynx normal. Oral Mucosa moist Neck: Normal inspection. Neck supple. CVS: Normal heart rate and rhythm. Pulses normal. Respiratory: No respiratory distress. Equal air entry bilateral, no wheezing/rales/rhonchi Abdomen: Soft and nontender. Bowel sounds are present, no mass palpable, no CVA tenderness Skin: Skin warm and dry. Normal skin color. Normal skin turgor. Extremities: No lower extremity edema. No calf tenderness Psych: Looks depressed denies any SI no hallucination Neuro: Oriented X 3. No motor deficit. No sensory deficit.No cerebellar signs , cranial nerves II-XII intact Medical Decision Making Medical Decision Making MDM Narrative: Patient's history of severe anxiety and depression will consult care team for further evaluation Lab Data [facility] Lab Attestation statement: I reviewed the patient's lab results. 04/23/24 00:35 04/23/24 00:35 Labs: Lab Results 04/23/24 04/23/24 Range/Units 00:34 00:35 WBC 9.0 (4.8-10.8) X10*3/uL RBC 5.26 (4.60-5.80) X10*6/uL Hgb 14.8 (14.0-18.0) g/dl Hct 44.5 (42.0-52.0) % MCV 84.6 (80.0-98.0) fL MCH 28.1 (27.0-33.0) pg MCHC 33.3 (31.0-36.0) g/dl RDW 12.9 (11.0-16.0) % Plt Count 232 (160-400) X10*3/uL MPV 9.4 (9.4-12.4) fL Immature Gran % (Auto) 0.2 (0.0-0.4) % Neut % (Auto) 54.1 (45-73) % Lymph % (Auto) 36.3 (20-40) % [place] % (Auto) 6.0 (2-11) % Eos % (Auto) 2.7 (0-4) % Baso % (Auto) 0.7 (0-2) % Lymph # (Auto) 3.3 (1.2-4.9) X10*3/uL [place] # (Auto) 0.5 (0.1-1.2) X10*3/uL Eos # (Auto) 0.2 (0.0-0.4) X10*3/uL Baso # (Auto) 0.1 (0.0-0.2) X10*3/uL Abs Immat Gran (auto) 0.02 (0.00-0.03) X10*3/uL Absolute Neuts (auto) 4.8 (2.0-8.3) x10*3/uL Absolute Nucleated RBC 0.000 (0.0-0.012) X10*3/uL Nucleated RBC % (auto) 0.0 (0.0-0.2) /100WBC Sodium 141 (135-145) mmol/L Potassium 3.8 (3.3-5.1) mmol/L Chloride 106 (96-108) mmol/L Carbon Dioxide 22 (22-29) mmol/L Anion Gap 17 (12-20) BUN 12 (9-16) mg/dL Creatinine 0.90 (0.5-1.4) mg/dL Estim Creat Clear Calc 112.3 Estimated GFR > 60 Random Glucose 104 (60-115) mg/dL Calcium 9.9 (8.4-10.2) mg/dL Total Bilirubin 0.5 (0.0-1.0) mg/dL AST 12 (5-37) U/L ALT 12 (0-40) U/L Alkaline Phosphatase 104 (39-117) U/L Total Protein 6.6 (6.5-8.0) g/dL Albumin 4.3 (3.5-5.0) g/dL Urine Opiates Screen Not Detected (Not Detect) Ur Buprenorphine Scrn Not Detected (Not Detect) ng/mL Ur Oxycodone Screen Not Detected (Not Detect) ng/mL Urine Methadone Screen Not Detected (Not Detect) ng/mL Urine Fentanyl Screen Not Detected (Not Detect) Ur Barbiturates Screen Not Detected (Not Detect) Ur Phencyclidine Scrn Not Detected (Not Detect) Ur Amphetamines Screen Not Detected (Not Detect) U Benzodiazepines Scrn Not Detected (Not Detect) Urine Cocaine Screen Not Detected (Not Detect) U Marijuana (THC) Screen Not Detected (Not Detect) Ethyl Alcohol < 10 mg/dL Discharge Plan Discharge Clinical Impression: Depression, Acute anxiety Patient Disposition: Still a Patient Prescriptions: No Action (DME) lancets [FreeStyle Lancets] 28 gauge misc topical DAILY Jardiance 25 mg tablet 25 mg PO DAILY Trulicity 3 mg/0.5 mL pen injector 3 mg subcut QWEEK atorvastatin 40 mg Tablet 40 mg PO DAILY Qty: 30 0RF clonazepam 0.5 mg Tablet 0.5 mg PO TID Qty: 90 0RF metoprolol succinate 25 mg Tablet Extended Release 24 Hr 25 mg PO DAILY Qty: 30 0RF Protocol: Hold for SBP/HR < HOLD for SBP < : 90 HOLD for HR < : 60 clozapine 50 mg Tablet 250 mg PO BEDTIME Qty: 150 0RF mirtazapine 15 mg tablet 15 mg PO BEDTIME Qty: 30 0RF sennosides-docusate sodium [Senna Plus] 8.6-50 mg Tablet 1 tab PO BID Qty: 60 0RF triamcinolone acetonide 0.1 % Cream 1 appl topical DAILY Qty: 15 0RF Protocol: Apply to: Apply to: face metformin 1,000 mg Tablet 1,000 mg PO BID Qty: 60 0RF gabapentin 400 mg Capsule 800 mg PO TID Qty: 90 0RF polyethylene glycol 3350 17 gram Powder In Packet 17 g PO DAILY Qty: 30 0RF Interventions: [place]-Suicide Risk Severity Scale Last Done: 04/22/24 22:27 Print Language: Maori
[2024-04-23 03:29] VITALS: BP 127/74; PULSE 74; RESP 16; TEMP 36.6; O2SAT 98
[2024-04-23 06:29] VITALS: BP 136/81; PULSE 98; RESP 16; TEMP 36.5; O2SAT 97
--- NOTE | 2024-04-23 08:32 | PC.NURSE ---
ambulated to the bathroom independently with steady gait during shift change. patient now resting quietly on stretcher with eyes closed, even and unlabored respirations. awaiting care team consult.
--- NOTE | 2024-04-23 10:07 | PHA.MEDREC ---
Pharmacy Consult ? Medication Reconciliation Pharmacy has reviewed the medication reconciliation completed by Adeline. There are no remarkable issues. Patient report taking clozaril last night. Marleny Wallis, PharmD
[2024-04-23 10:44] VITALS: BP 122/84; PULSE 105; RESP 16; TEMP 36.6; O2SAT 94
[2024-04-23] MEDS: Atorvastatin Calcium 40 MG TABLET PO (10:45)
[2024-04-23] MEDS: Sennosides/Docusate Sodium TABLET 1 TAB PO ×2 (10:45→21:46)
[2024-04-23] MEDS: clonazePAM 0.5 MG TABLET PO ×3 (10:45→21:46)
[2024-04-23] MEDS: Metoprolol Succinate ER 25 MG TAB.ER.24H PO (10:45)
[2024-04-23] MEDS: Gabapentin 400 MG CAPSULE 800 MG PO ×3 (10:45→21:46)
[2024-04-23] MEDS: Empagliflozin 25 MG TABLET PO (10:46)
[2024-04-23] MEDS: metFORMIN HCl 1,000 MG TABLET 1000 MG PO ×2 (10:46→21:46)
--- NOTE | 2024-04-23 10:48 | PC.NURSE ---
medicated per the MAR, takes pills whole altogether with water. continues to rest quietly offering no complaints awaiting care team.
--- NOTE | 2024-04-23 11:15 | PC.NURSE ---
pt speaking w/ care team at this time.
[2024-04-23 14:00] VITALS: BP 115/84; PULSE 113; RESP 17; TEMP 36.1; O2SAT 97
--- NOTE | 2024-04-23 15:10 | PC.NURSE ---
pt medicated per provider order. continues to rest in stretcher in no apparent distress. no sob/wob noted. respirations even/unlabored. plan of care ongoing.
[2024-04-23 16:30] VITALS: BP 119/77; PULSE 101; RESP 20; TEMP 36.6; O2SAT 94
[2024-04-23 19:16] VITALS: BP 119/78; PULSE 94; RESP 16; TEMP 36.8; O2SAT 97
[2024-04-23] MEDS: Mirtazapine 15 MG TABLET PO (21:46)
--- NOTE | 2024-04-23 21:48 | PC.NURSE ---
pt medicated per provider order. pharmacy called d/t medication not being in pyxis. will administer when able. pt otherwise continues to rest comfortably in no apparent distress. no sob/wob noted. respirations even/unlabored. plan of care ongoing.
[2024-04-23] MEDS: cloZAPine 25 MG TABLET 50 MG PO (22:11)
[2024-04-23] MEDS: cloZAPine 100 MG TABLET 200 MG PO (22:11)
--- NOTE | 2024-04-24 00:17 | PC.NURSE ---
Took report from off-going RN at 2300 hrs. Pt is a 48 y/o male who presents for evaluation of increased feelings of depression and anxiety, does not endorse SI or HI. Plan established with care team is follow-up with PCP. Discharge is pending.
[2024-04-24 01:16] VITALS: BP 112/71; PULSE 87; RESP 17; TEMP 36.5; O2SAT 97
[2024-04-24 07:26] VITALS: BP 111/71; PULSE 93; RESP 18; TEMP 36.4; O2SAT 94
[2024-04-24 08:15] VITALS: BP 111/71; PULSE 93; RESP 16; TEMP 36.4; O2SAT 94
== END 2024-04-24 08:24 | disposition home or self-care (01) ==
PROVIDERS: Emergency Provider Internal Medicine; PCP Family Medicine
DX: F32.A Depression, unspecified (principal); F41.9 Anxiety disorder, unspecified; F25.9 Schizoaffective disorder, unspecified; E11.9 Type 2 diabetes mellitus without complications; Z79.899 Other long term (current) drug therapy; Z79.02 Long term (current) use of antithrombotics/antiplatelets; Z79.85 Long-term (current) use of injectable non-insulin antidiabetic drugs; Z79.84 Long term (current) use of oral hypoglycemic drugs
CPT/HCPCS: 36415; 80053; 80307; 85025; 99285; S9485

== ENCOUNTER 2024-05-16 10:41 | Outpatient (REF) | payer MEDICARE, MEDICAID, SELFPAY ==
[2024-05-16 11:46] LABS: Neutrophils Absolute Auto 6.6 x10*3/uL (2.0-8.3); WBCANC 9.5 X10*3/uL
[2024-05-16 12:06] LABS: Valproate < 12.5 mcg/mL (50.0-100.0)
[2024-05-19 04:18] LABS: Clozapine (Clozaril) 494 mcg/L; Norclozapine 289 mcg/L (25-400)
== END 2024-05-16 10:42 | disposition home or self-care (01) ==
LOC: HO.LABR 10:41
PROVIDERS: PCP Family Medicine; Visit Provider Clinical Nurse Specialist Psychiatric/Mental Health, Adult
DX: Z79.899 Other long term (current) drug therapy (principal)
CPT/HCPCS: 36415; 80159; 80164; 85048

== ENCOUNTER 2024-06-12 14:27 | Inpatient (IN) | payer MEDICARE, MEDICAID, SELFPAY ==
[2024-06-12] VITALS (10 sets, daily range): BP systolic 99–170; BP diastolic 53–99; PULSE 98–141; RESP 16–24; TEMP 36.4–37.1; O2SAT 96–100; BMI 27.4
--- NOTE | 2024-06-12 14:43 | ED.PSYCH ---
HPI - Psych General Chief Complaint: Psychiatric Symptoms Stated Complaint: SEC 12, HI/SI,TEARING UP APARTMENT,ANGRY PER EMS Time Seen by Provider: 06/12/24 14:43 Source: EMS Mode of arrival: EMS Limitations: altered mental status History of Present Illness ED Provider: Dr. Joel Lara HPI Narrative: 48-year-old male with a history of anxiety, schizoaffective disorder, diabetes who was brought to the emergency department on a Section 12 he was brought to emergency department on a Section 12 for suicidal statements and aggressive behavior. The following information was given to the ED nurse ?SI/HI, Section 12 destroying his apartment, breaking objects on his head states he wants to shoot himself. Patient was very angry?. Following was obtained from the Section 12 filled out by the police at the scene: ?Destroying apartment, saying he should not be alive/born. Stated fuck medications, as I know he was supposed to be on them. Maintenance attacked, threatened with harm. Hitting himself with a objects.? On arrival to the emergency department the patient was being restrained on the stretcher. [facility] security transfer the patient to our stretcher but the patient became aggressive and violent and try to strike out at our security staff and at our nursing staff. Therefore the patient was placed in 4 point restraints and medicated with Zyprexa 10 mg IM, Benadryl 50 mg IM and Ativan 2 mg IM After the patient was medicated and became cooperative he told me that he got up yesterday and was feeling fine. He washed 1 football game and was enjoying the game. When he was started watch the 2nd football game he could not concentrate and this made him very upset. He was not able to tell me why he was upset today. Related Data Home Medications ?Medication ?Instructions ?Recorded ?Confirmed lancets 28 gauge (FreeStyle 07/22/20 02/10/24 Lancets) dulaglutide 3 mg/0.5 mL 3 mg subcut QWEEK 09/23/23 04/23/24 subcutaneous pen injector (Trulicity) empagliflozin 25 mg tablet 25 mg PO DAILY 09/23/23 04/23/24 (Jardiance) Previous Rx's ?Medication ?Instructions ?Recorded atorvastatin 40 mg tablet 40 mg PO DAILY #30 tabs 02/23/24 clonazepam 0.5 mg tablet 0.5 mg PO TID #90 tabs 02/23/24 clozapine 50 mg tablet 250 mg (5 x 50 mg) PO BEDTIME #150 02/23/24 tabs gabapentin 400 mg capsule 800 mg (2 x 400 mg) PO TID #90 caps 02/23/24 metformin 1,000 mg tablet 1,000 mg PO BID #60 tabs 02/23/24 metoprolol succinate 25 mg 25 mg PO DAILY #30 tabs 02/23/24 tablet,extended release 24 hr mirtazapine 15 mg tablet 15 mg PO BEDTIME #30 tabs 02/23/24 polyethylene glycol 3350 17 gram 17 g PO DAILY #30 ea 02/23/24 oral powder packet sennosides 8.6 mg-docusate sodium 1 tab PO BID #60 tabs 02/23/24 50 mg tablet (Senna Plus) triamcinolone acetonide 0.1 % 1 appl topical DAILY #15 grams 02/23/24 topical cream Allergies Allergy/AdvReac Type Severity Reaction Status Date / Time haloperidol [From Haldol] Allergy Intermediate Agitated Verified 06/12/24 14:39 lithium Allergy Intermediate Agitated Verified 04/22/24 21:45 oxcarbazepine Allergy Unknown RASH Verified 04/22/24 21:45 [From TRILEPTAL] fluphenazine [From Prolixin] Allergy akathisia Verified 04/22/24 21:45 [facility] Past Medical History Medical History Acute anxiety Schizoaffective disorder Diabetes 1.5, managed as type 2 Social History Social History Household Members: Other Household Members Other:: roommate. Housing: Apartment Housing Other:: [facility]D supported apartment Do you presently have visiting nurse or other home services: Yes Alcohol intake: former Comment: utilizing a walker Patient Tobacco Use Status: Never used Tobacco Tobacco use type: Cigarette e-Cigarette/Vaping Use: Never Used Second Hand Smoke Exposure: No Advance Directives: No Advance Directives Information Provided: Yes Do you have a plan to hurt others: Vague service: No Sexual orientation: Straight/Heterosexual Physical Exam Vital Signs: Vital Signs: Last Vital Signs Temp 98.7 F 10/21/24 14:37 Pulse 119 H 06/12/24 14:37 Resp 20 06/12/24 14:37 BP 109/57 L 06/12/24 14:37 Pulse Ox 97 06/12/24 14:37 O2 Del Method Room Air 06/12/24 14:37 BMI result Body Mass Index 27.4 Vital signs revealed an elevated heart rate of 119 Exam: General: Initially the patient was extremely uncooperative and required restraints. After medication and take not restrained patient was awake and alert. He does have a resting tremor of his head upper extremities and lower extremities which is worse with movement Head: Normocephalic, atraumatic EENT: PERRL, Lids normal, sclera normal, conjunctiva normal, nose normal , ears normal, throat without erythema or exudates Neck: Supple, no adenopathy Lung: breath sounds symmetric, no wheezing, rales or rhonchi Chest: symmetric movement, nontender Heart: regular rate and rhythm, normal S1, S2 no murmurs or rubs Abdomen: soft, non-tender, nondistended, normal bowel sounds Back: no vertebral tenderness, no CVAT Extremities: no deformities, moves all extremities symmetrically Neuro: Awake, alert, oriented, normal speech, cranial nerves intact, moves all extremities symmetrically, resting tremor worse with movement Psych: Patient was cooperative Medications Administered Discontinued Medications Generic Name Dose Route Start Last Admin Trade Name Freq PRN Reason Stop Dose Admin Diphenhydramine HCl 50 mg 06/12/24 14:44 06/12/24 14:54 Diphenhydramine Hcl 50 Mg/Ml Vial IM 06/12/24 14:45 50 mg ONCE ONE Administration Lorazepam 2 mg 06/12/24 14:44 06/12/24 14:54 Lorazepam 2 Mg/Ml Vial IM 06/12/24 14:45 2 mg STAT STA Administration Olanzapine 10 mg 06/12/24 14:44 06/12/24 14:54 Olanzapine 10 Mg Vial IM 06/12/24 14:45 10 mg STAT STA Administration Medical Decision Making Medical Decision Making [facility] Narrative: 48-year-old male with a history of anxiety, schizoaffective disorder, diabetes who was brought to the emergency department on a Section 12 he was brought to emergency department on a Section 12 for suicidal statements and aggressive behavior. Patient was destroying his apartment, hitting himself with objects and threatening the maintenance staff. Patient was placed on a Section 12 by the police and on presentation to the emergency department he was aggressive and struck out at staff therefore he was placed in 4 point restraints and medicated with Zyprexa 10 mg IM, Benadryl 50 mg IM and Ativan 2 mg IM. Differential diagnosis: ?Includes but is not limited to suicidal ideation, homicidal ideation, decompensation of schizoaffective disorder, noncompliance with medications, anemia, electrolyte abnormalities Course: 18:42 Start physician observation: Patient is significantly after restraint and medication administration. My interpretation patient's laboratory evaluation is as follows: WBC elevated 15,400-most likely secondary to demargination from epinephrine release/agitation. Glucose elevated 121. Lactic acid elevated 2.1. Alk-phos elevated 137. CK elevated 203. TSH was normal. LFTs were normal. COVID-19, RSV and influenza were negative. Ethanol was below detectable limits. Urine tox screen is pending collection At this time the patient is medically cleared for care team evaluation.Patient will remain in the emergency department on a one-to-one observation until disposition can be determined or until patient's symptoms improve over time. Admission/Observation Consideration of admission/observation: Escalation of care including admission/observation considered (Yes) Lab Data MDM Lab Attestation statement: I reviewed the patient's lab results. 06/12/24 16:53 06/12/24 16:53 Labs: Lab Results 06/12/24 Range/Units 16:53 WBC 15.4 H (4.8-10.8) X10*3/uL RBC 5.76 (4.60-5.80) X10*6/uL Hgb 16.2 (14.0-18.0) g/dl Hct 47.8 (42.0-52.0) % MCV 83.0 (80.0-98.0) fL MCH 28.1 (27.0-33.0) pg MCHC 33.9 (31.0-36.0) g/dl RDW 13.5 (11.0-16.0) % Plt Count 290 (160-400) X10*3/uL MPV 8.9 L (9.4-12.4) fL Immature Gran % (Auto) 0.5 H (0.0-0.4) % Neut % (Auto) 86.5 H (45-73) % Lymph % (Auto) 8.7 L (20-40) % [place] % (Auto) 4.0 (2-11) % Eos % (Auto) 0.0 (0-4) % Baso % (Auto) 0.3 (0-2) % Lymph # (Auto) 1.3 (1.2-4.9) X10*3/uL [place] # (Auto) 0.6 (0.1-1.2) X10*3/uL Eos # (Auto) 0.0 (0.0-0.4) X10*3/uL Baso # (Auto) 0.1 (0.0-0.2) X10*3/uL Abs Immat Gran (auto) 0.07 H (0.00-0.03) X10*3/uL Absolute Neuts (auto) 13.3 H (2.0-8.3) x10*3/uL Absolute Nucleated RBC 0.000 (0.0-0.012) X10*3/uL Nucleated RBC % (auto) 0.0 (0.0-0.2) /100WBC Sodium 142 (135-145) mmol/L Potassium 3.8 (3.3-5.1) mmol/L Chloride 106 (96-108) mmol/L Carbon Dioxide 22 (22-29) mmol/L Anion Gap 18 (12-20) BUN 21 H (9-16) mg/dL Creatinine 1.01 (0.5-1.4) mg/dL Estim Creat Clear Calc 87.4 Estimated GFR > 60 Random Glucose 125 H (60-115) mg/dL Lactic Acid 2.1 H* (0.5-2.0) mmol/L Calcium 10.3 H (8.4-10.2) mg/dL Magnesium 2.1 (1.6-2.6) mg/dL Total Bilirubin 0.8 (0.0-1.0) mg/dL AST 28 (5-37) U/L ALT 28 (0-40) U/L Alkaline Phosphatase 137 H (39-117) U/L Total Creatine Kinase 203 H (38-174) U/L Total Protein 7.7 (6.5-8.0) g/dL Albumin 4.9 (3.5-5.0) g/dL Lipase 26 (8-78) U/L TSH 0.63 (0.32-4.0) uIU/mL Ethyl Alcohol < 10 mg/dL Independent Historian Clinical information obtained from an independent historian. History obtained from or confirmed by: EMS Chronic Conditions Patient?s care impacted by: Other (Schizoaffective disorder) Discharge Plan Discharge Clinical Impression: Suicidal ideation, Homicidal ideation, Aggressive behavior, Intentional self-harm by blunt object Patient Disposition: Still a Patient Prescriptions: No Action (DME) lancets [FreeStyle Lancets] 28 gauge misc topical DAILY Jardiance 25 mg tablet 25 mg PO DAILY Trulicity 3 mg/0.5 mL pen injector 3 mg subcut QWEEK atorvastatin 40 mg Tablet 40 mg PO DAILY Qty: 30 0RF clonazepam 0.5 mg Tablet 0.5 mg PO TID Qty: 90 0RF metoprolol succinate 25 mg Tablet Extended Release 24 Hr 25 mg PO DAILY Qty: 30 0RF Protocol: Hold for SBP/HR < HOLD for SBP < : 90 HOLD for HR < : 60 clozapine 50 mg Tablet 250 mg PO BEDTIME Qty: 150 0RF mirtazapine 15 mg tablet 15 mg PO BEDTIME Qty: 30 0RF sennosides-docusate sodium [Senna Plus] 8.6-50 mg Tablet 1 tab PO BID Qty: 60 0RF triamcinolone acetonide 0.1 % Cream 1 appl topical DAILY Qty: 15 0RF Protocol: Apply to: Apply to: face metformin 1,000 mg Tablet 1,000 mg PO BID Qty: 60 0RF gabapentin 400 mg Capsule 800 mg PO TID Qty: 90 0RF polyethylene glycol 3350 17 gram Powder In Packet 17 g PO DAILY Qty: 30 0RF Print Language: Lithuanian
[2024-06-12] MEDS: OLANZapine 10 MG VIAL IM (14:52)
[2024-06-12] MEDS: diphenhydrAMINE HCL 50 MG/ML VIAL IM (14:52)
[2024-06-12] MEDS: LORazepam 2 MG/ML VIAL IM (14:52)
[2024-06-12 17:02] LABS: MANUAL DIFF FLAG NO
[2024-06-12 17:05] LABS: Basophils Absolute Auto 0.1 X10*3/uL (0.0-0.2); Basophils Percent Auto 0.3 % (0-2); Hematocrit 47.8 % (42.0-52.0); Hemoglobin 16.2 g/dl (14.0-18.0); Imm Gran Abs Auto 0.07 X10*3/uL (0.00-0.03); Imm Gran Pct Auto 0.5 % (0.0-0.4); Lymphocytes Absolute Auto 1.3 X10*3/uL (1.2-4.9); Lymphocytes Percent Auto 8.7 % (20-40); Mean Corpuscular HGB Conc 33.9 g/dl (31.0-36.0); Mean Corpuscular Hemoglobin 28.1 pg (27.0-33.0); Mean Platelet Volume 8.9 fL (9.4-12.4); Monocytes Absolute Auto 0.6 X10*3/uL (0.1-1.2); Neutrophils Absolute Auto 13.3 x10*3/uL (2.0-8.3); Neutrophils Percent Auto 86.5 % (45-73); Platelet Count 290 X10*3/uL (160-400); Red Blood Count 5.76 X10*6/uL (4.60-5.80); Red Cell Distribution Width 13.5 % (11.0-16.0); White Blood Count 15.4 X10*3/uL (4.8-10.8)
[2024-06-12 17:20] LABS: Lactic Acid 2.1 mmol/L (0.5-2.0)
[2024-06-12 17:24] LABS: Alanine Aminotransferase 28 U/L (0-40); Albumin Level 4.9 g/dL (3.5-5.0); Alkaline Phosphatase 137 U/L (39-117); Anion Gap 18 (12-20); Aspartate Amino Transferase 28 U/L (5-37); Bilirubin Total 0.8 mg/dL (0.0-1.0); Blood Urea Nitrogen 21 mg/dL (9-16); Calcium 10.3 mg/dL (8.4-10.2); Carbon Dioxide 22 mmol/L (22-29); Chloride 106 mmol/L (96-108); Creatinine Clr Calc Pharmacy 87.4; Estimated Glomerular Filt Rate > 60; Ethanol < 10 mg/dL; Glucose Random 125 mg/dL (60-115); Lipase 26 U/L (8-78); Magnesium 2.1 mg/dL (1.6-2.6); Potassium 3.8 mmol/L (3.3-5.1); Sodium 142 mmol/L (135-145); Total Protein 7.7 g/dL (6.5-8.0)
[2024-06-12 17:42] LABS: TSH reflex Free T4 0.63 uIU/mL (0.32-4.0)
[2024-06-12 18:00] LABS: Influenza A PCR NEGATIVE (Negative); Influenza B PCR NEGATIVE (Negative); Resp Syncy Virus RNA Qual PCR NEGATIVE (Negative); SARS COV2 PCR INHOUSE NEGATIVE (Negative)
--- NOTE | 2024-06-12 18:09 | PC.NURSE ---
pt comes to ED with PD and EMS after found at home throwing things, destroying the apartment and breaking objects on himself. Per MD order, pt was restrained and medicated after he was combative with staff, shouting, thretening and kicking and attempting to hurt staff. Pt was difficult to engage with and avoided answering questions. Restraints were trailed off and completely removed at 1600. Pt is now calm and cooperative with staff
[2024-06-12 19:01] LABS: Reflex Lactate? Lactic Acid Added
[2024-06-12 19:25] LABS: ~Lactic Acid-LAB USE ONLY 1.7 mmol/L (0.5-2.0)
--- NOTE | 2024-06-13 | ECG_ITS ---
Test Reason : CHECK QTC Blood Pressure : / mmHG Vent. Rate : 101 BPM Atrial Rate : 101 BPM P-R Int : 138 ms QRS Dur : 090 ms QT Int : 364 ms P-R-T Axes : 034 019 040 degrees QTc Int : 471 ms Sinus tachycardia Otherwise normal ECG When compared with ECG of 23-SEP-2023 08:27, No significant change was found Referred By: Joel Lara Electronically Signed By:Valente Toledo
--- NOTE | 2024-06-13 05:53 | PC.NURSE ---
pt rested comfortably throughout the night, sitter remains at bedside, calm and cooperative with care at this time. JULITO corley.
[2024-06-13 06:09] LABS: Amphetamine Screen Urine Not Detected (Not Detect); Barbiturates, Urine Not Detected (Not Detect); Benzodiazepines Screen Urine Not Detected (Not Detect); Buprenorphine Scr Not Detected (Not Detect); Cannabinoid Screen Urine Not Detected (Not Detect); Cocaine Screen Urine Not Detected (Not Detect); Fentanyl, urine Not Detected (Not Detect); Methadone Screen, Urine Not Detected (Not Detect); Opiate Screen Urine Not Detected (Not Detect); Oxycodone Screen Urine Not Detected (Not Detect); Phencyclidine Screen Urine Not Detected (Not Detect)
--- NOTE | 2024-06-13 07:46 | PC.NURSE ---
pharmacy called for med rec lab called to add on ua
[2024-06-13 07:50] LABS: Appearance Urine Cloudy; Color Urine Yellow; Glucose Urine UA >=1000 mg/dL (Negative); Leukocyte Esterase Urine Small (1+) (Negative); Nitrite Urine Negative (Negative); PH 5.5 (5.0-9.0); Specific Gravity - Urine >= 1.030 (1.005-1.025); UMIC TRIGGER UACC YES; Urine Blood Negative (Negative); Urine Ketones 40 mg/dL (Negative); Urine Protein Trace mg/dL (Neg-Trace)
[2024-06-13 08:04] LABS: Bacteria Urine Trace (None Seen); Calcium Oxalate Crystals Urine Present; RBC Urine 0-2 /HPF (0-2); UACC Culture Trigger YES; WBC Urine >50 /HPF (0-5)
--- NOTE | 2024-06-13 11:32 | PC.NURSE ---
report called to paul FLORENTINO in pod.
--- NOTE | 2024-06-13 11:35 | PHA.MEDREC ---
Pharmacy Consult ? Medication Reconciliation Pharmacy has completed the medication reconciliation. Attempted to speak to patient at bedside, all he would say to me is I'm done with pills. I tried to get him to tell me when he last took his clozapine but he refused to respond. Contacted Leonora in the pod who will be taking over his care, and she will also attempt to confirm last dosing.
--- NOTE | 2024-06-13 11:51 | PC.NURSE ---
this RN went up to patient. educated patient that he will be getting moved to the pod, patient became agitated with this RN, states im not going over to the pod when attempting to ask patient why he would not want to go to the pod patient will not answer this RN. provider made aware. security called for transport.
--- NOTE | 2024-06-13 11:55 | PC.NURSE ---
asked patient if he would be willing to take PO medication, patient staring at wall not answering this RN
--- NOTE | 2024-06-13 12:22 | MHC.EDTECH ---
Patient politely declining vital signs be taken at this time.
--- NOTE | 2024-06-13 12:32 | PC.NURSE ---
patient agitated with this RN, states i dont want to go to the pod i want to be left the fuck alone educated patient that he can be left alone in the pod and it will be a better environemnt for him, patient still refusing to take PO medications for this RN, states ill go to the fucking pod, but i want to be left alone patient ambulated with steady gait to pod escorted by security. Leonora FLORENTINO made aware.
--- NOTE | 2024-06-13 16:16 | PC.ADMIT ---
Ruddy is a 48-year-old male admitted from [facility] pod to M3 at 1445 on a 12b for treatment of schizoaffective d/o and unspecified anxiety d/o. Pt was brought in by EMS and PD, was aggressive and attempted to strike at staff and required physical and chemical restraints on 06/12. Upon arrival to , pt was tense, his hands were in fists and he was visibly trembling. Skin check was unremarkable, pt was incontinent of urine and his brief was changed. Pt appeared catatonic, avoided eye contact and did not respond to verbal commands. Pt occasionally shook his head no but did not provide verbal responses. Pt refused one time order of Ativan PO, shook his head and wrapped himself in his blanket. Pt was unable to ambulate on his own and required assistance. Pt was unable to participate in admission assessment and majority of assessment was completed based on crisis eval. Pt placed on 5 minute safety checks.
[2024-06-13 16:48] LABS: Ammonia 56 umol/L (13-55)
[2024-06-13 17:00] LABS: Alanine Aminotransferase 27 U/L (0-40); Albumin Level 5.6 g/dL (3.5-5.0); Alkaline Phosphatase 154 U/L (39-117); Anion Gap 20 (12-20); Aspartate Amino Transferase 34 U/L (5-37); Bilirubin Direct 0.4 mg/dL (0.0-0.5); Bilirubin Total 1.2 mg/dL (0.0-1.0); Blood Urea Nitrogen 20 mg/dL (9-16); Calcium 10.9 mg/dL (8.4-10.2); Carbon Dioxide 21 mmol/L (22-29); Chloride 107 mmol/L (96-108); Cholesterol 152 mg/dL (<200); Creatinine Clr Calc Pharmacy 99.2; Estimated Glomerular Filt Rate > 60; Glucose Fasting 112 mg/dL (60-99); HDL Cholesterol 35 mg/dL (>40); LDL Cholesterol Calculated 100 mg/dL (<100); Potassium 3.3 mmol/L (3.3-5.1); Sodium 145 mmol/L (135-145); Total Protein 8.6 g/dL (6.5-8.0); Triglycerides 89 mg/dL (<150)
--- NOTE | 2024-06-13 17:11 | PC.NURSE ---
RN offered pt PO Clozaril, did not make eye contact. Pt remained in bed and did not sit up, pt shook head no and refused medication, provider Mary wright.
[2024-06-13 17:14] LABS: Thyroid Stimulating Hormone 2.35 uIU/mL (0.32-4.0)
--- NOTE | 2024-06-13 17:31 | PC.NURSE ---
Pt refused flu vaccicne
--- NOTE | 2024-06-13 18:11 | PC.ADMIT ---
Ruddy is a 48-year-old male admitted from [facility] to M3 at 1445 on a 12b for treatment of schizoaffective d/o and unspecified anxiety d/o. Medical hx type 2 diabetes, pt has POC ordered BID. Pt was brought in by EMS and PD, was aggressive and attempted to strike at staff and required physical and chemical restraints on 06/12. Upon arrival to M3, pt was tense, his hands were in fists and he was visibly trembling. Pt's eyes and face were visibly twitching, provider aware. Skin check was unremarkable, pt was incontinent of urine and his brief was changed. Pt appeared catatonic, avoided eye contact and did not respond to verbal commands. Pt occasionally shook his head no but did not provide verbal responses. Pt refused one time order of Ativan PO, shook his head and wrapped himself in his blanket. Pt was unable to ambulate on his own and required assistance. Pt was unable to participate in admission assessment and majority of assessment was completed based on crisis eval. Pt placed on 5 minute safety checks.
--- NOTE | 2024-06-14 03:37 | PC.NURSE ---
Pt refused HS meds and v/s, easily irritable and not talking to staff.
[2024-06-14 05:24] LABS: Estimated Average Glucose 126 mg/dL; Hemoglobin A1C 168.2916 umol/L; Total Hemoglobin (HGBA1C) 4032.0795 umol/L
[2024-06-14 08:00] VITALS: RESP 18
--- NOTE | 2024-06-14 08:57 | P.CONHOSP_ITS ---
History of Present Illness Data of Consult Service Date: 06/14/24 Requesting physician: Dwayne De La Rosa Primary Care Provider: Jess Paris MD HPI Reason for consult: seizure vs catatonia 48 yo male with a pmhx significant for schizoaffective disorder admitted from ED for adult psych yesterday via section 12 for SI/HI, agitation and aggression. with nurse to nurse communication on transfer, the [facility] nurse reports that she as told he was responsive and ambulatory, although when he arrived to the unit he was incontinent of urine and has been laying in his bed in position since. his eyes are fluttering and he is refusing all meds, not verbally responsive but rolls over to refuse when they try to administer his meds. Review of Systems 2 Review of Systems: Yes Unobtainable due to mental status [facility] Medical History Acute anxiety Schizoaffective disorder Diabetes 1.5, managed as type 2 Functional capacity: independent ambulation Social History Household Members: Other Household Members Other:: roommate. Housing: Apartment Housing Other:: [facility] supported apartment Do you presently have visiting nurse or other home services: Yes Alcohol intake: former Comment: utilizing a walker Patient Tobacco Use Status: Never used Tobacco Tobacco use type: Cigarette Smoked in Last 30 Days: No e-Cigarette/Vaping Use: Never Used Second Hand Smoke Exposure: No Use of substances other than those prescribed or required for medical reasons: No Currently Displaying Signs/Symptoms of Drug Intoxication Withdrawal: No Advance Directives: No Advance Directives Information Provided: Yes Do you have thoughts of harming others: None Do you have a plan to hurt others: No Plan Recently lost weight without trying: Unsure Nutrition Risks: No Nutritional Risk service: No Sexual orientation: Straight/Heterosexual Meds Allergies Allergy/AdvReac Type Severity Reaction Status Date / Time haloperidol [From Haldol] Allergy Intermediate Agitated Verified 06/12/24 14:39 lithium Allergy Intermediate Agitated Verified 04/22/24 21:45 oxcarbazepine Allergy Unknown RASH Verified 04/22/24 21:45 [From TRILEPTAL] fluphenazine [From Prolixin] Allergy akathisia Verified 04/22/24 21:45 Active Medications: Current Medications Acetaminophen (Acetaminophen 325 Mg Tablet) 650 mg PO Q6H PRN PRN Reason: Headache/Pain Mild Scale (1-3) Al Hydroxide/Mg Hydroxide (Magnesium Hydrox/Alum Hydrox 30 Ml Oral.Susp) 30 ml PO Q6H PRN PRN Reason: Heartburn/Nausea Atorvastatin Calcium (Atorvastatin Calcium 40 Mg Tablet) 40 mg PO DAILY [facility] Clonazepam (Clonazepam 0.5 Mg Tablet) 0.5 mg PO TID [facility] Last Admin: 06/13/24 15:54 Dose: Not Given Clozapine (Clozapine 25 Mg Tablet) 50 mg PO BEDTIME [facility] Last Admin: 06/13/24 22:28 Dose: Not Given Empagliflozin (Empagliflozin 25 Mg Tablet) 25 mg PO DAILY [facility] Gabapentin (Gabapentin 400 Mg Capsule) 800 mg PO TID [facility] Last Admin: 06/13/24 22:29 Dose: Not Given Hydroxyzine HCl (Hydroxyzine Hcl 25 Mg Tablet) 25 mg PO Q6H PRN PRN Reason: Anxiety Lorazepam (Lorazepam 1 Mg Tablet) 2 mg PO TID [facility] Last Admin: 06/13/24 22:29 Dose: Not Given Magnesium Hydroxide (Milk Of Magnesia 30 Ml Oral.Susp) 30 ml PO DAILY PRN PRN Reason: Constipation Metformin HCl (Metformin Hcl 1,000 Mg Tablet) 1,000 mg PO BIDWM [facility] Last Admin: 06/13/24 17:11 Dose: Not Given Metoprolol Succinate (Metoprolol Succinate Er 25 Mg Tab.Er.24h) 25 mg PO DAILY [facility]; Protocol Mirtazapine (Mirtazapine 15 Mg Tablet) 45 mg PO BEDTIME [facility] Last Admin: 06/13/24 22:29 Dose: Not Given Nicotine (Nicotine 21 Mg Patch.Td24) 21 mg TRANSDERMA DAILY [facility] Nicotine Polacrilex (Nicotine Polacrilex 2 Mg Gum) 4 mg BUCCAL Q2H PRN PRN Reason: Nicotine Cravings Non-Formulary Medication (Dulaglutide [Trulicity]) 3 mg SUBCUT WE@0900 [facility] Olanzapine (Olanzapine 5 Mg Tablet) 5 mg PO Q4H PRN PRN Reason: agitation Trazodone HCl (Trazodone Hcl 50 Mg Tablet) 50 mg PO BEDTIME MRX1 PRN PRN Reason: Insomnia Home Medications ?Medication ?Instructions ?Recorded ?Confirmed ?Last Taken ?Type lancets 28 gauge (FreeStyle 07/22/20 02/10/24 Unknown History Lancets) dulaglutide 3 mg/0.5 mL 3 mg subcut WE@0900 09/23/23 06/13/24 02/23/24 08:00 History subcutaneous pen injector (Trulicity) empagliflozin 25 mg tablet 25 mg PO DAILY 09/23/23 06/13/24 02/25/24 08:00 History (Jardiance) mirtazapine 45 mg tablet 45 mg PO BEDTIME 06/13/24 06/13/24 Unknown History Physical Exam 2 Vital Signs and Narrative: Vital Signs: Last Vital Signs Temp 97.5 F 06/12/24 22:00 Pulse 102 H 06/12/24 22:00 Resp 20 06/12/24 22:00 BP 110/63 06/12/24 22:00 Pulse Ox 100 06/12/24 22:00 O2 Del Method Room Air 06/12/24 22:00 BMI result Body Mass Index 27.4 General: pt laying in position. not alert or oriented. unresponsive to commands or questions. HEENT: eyes open fluttering, pupils reactive to light. vertical nystagmus Resp: CTA bilaterally CVS: S1, S2, RRR Skin: Warm, dry Neuro: unable to perform Extremities: No edema Psych: Catatonic Results Labs 06/12/24 16:53 06/13/24 15:58 Labs: Laboratory Results - last 24 hr 06/12/24 06/13/24 16:54 15:58 Anion Gap 20 Estim Creat Clear Calc 99.2 Estimated GFR > 60 Fasting Glucose 112 H Estimat Average Glucose 126 Hemoglobin A1c % 6.0 Calcium 10.9 H Total Bilirubin 1.2 H Direct Bilirubin 0.4 AST 34 ALT 27 Alkaline Phosphatase 154 H Ammonia 56 H Total Protein 8.6 H Albumin 5.6 H Triglycerides 89 Cholesterol 152 LDL Cholesterol, Calc 100 H HDL Cholesterol 35 L TSH 2.35 Assessment and Plan (1) Catatonia: Status: Acute (2) Withdrawal from benzodiazepine: Status: Acute Plan Pt consulted due to concern for seizure vs catatonia. After exam, likely catatonic, refusing all meds and anything PO including food and water. Discussed plan with Dr Fidelina De La Rosa to admit for medical stabilization and withdrawal from clonazepam and gabapentin. In the interim, he is now taking ativan, gabapentin and drinking liquids. Plan is to keep pt on psych floor as he has improved. Consider neuro consult if concern for seizures. Thank you for allowing me to participate in the pt's care. Signing off. If new medical concerns arise please consult the hospitalists. Total time managing care of this patient today: 30 minutes.
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
[2024-06-14] MEDS: Gabapentin 400 MG CAPSULE 800 MG PO ×3 (10:25→21:00)
[2024-06-14] MEDS: LORazepam 1 MG TABLET 2 MG PO ×4 (10:25→20:59)
[2024-06-14 10:30] VITALS: BP 143/75; PULSE 120; RESP 18; TEMP 36.3; O2SAT 96
[2024-06-14 11:18] LABS: Glucose, Whole Blood 279 mg/dL (60-115)
[2024-06-14 11:30] LABS: MANUAL DIFF FLAG NO
[2024-06-14 11:37] LABS: Basophils Absolute Auto 0.1 X10*3/uL (0.0-0.2); Basophils Percent Auto 0.4 % (0-2); Hematocrit 47.8 % (42.0-52.0); Hemoglobin 15.5 g/dl (14.0-18.0); Imm Gran Abs Auto 0.03 X10*3/uL (0.00-0.03); Imm Gran Pct Auto 0.3 % (0.0-0.4); Lymphocytes Absolute Auto 1.1 X10*3/uL (1.2-4.9); Lymphocytes Percent Auto 9.8 % (20-40); Mean Corpuscular HGB Conc 32.4 g/dl (31.0-36.0); Mean Corpuscular Hemoglobin 27.8 pg (27.0-33.0); Mean Corpuscular Volume 85.7 fL (80.0-98.0); Mean Platelet Volume 9.3 fL (9.4-12.4); Monocytes Absolute Auto 0.3 X10*3/uL (0.1-1.2); Monocytes Percent Auto 2.8 % (2-11); Neutrophils Absolute Auto 9.7 x10*3/uL (2.0-8.3); Neutrophils Percent Auto 86.7 % (45-73); Platelet Count 275 X10*3/uL (160-400); Red Blood Count 5.58 X10*6/uL (4.60-5.80); Red Cell Distribution Width 13.9 % (11.0-16.0); White Blood Count 11.2 X10*3/uL (4.8-10.8)
[2024-06-14 11:46] LABS: Anion Gap 20 (12-20); Blood Urea Nitrogen 23 mg/dL (9-16); Calcium 9.9 mg/dL (8.4-10.2); Carbon Dioxide 19 mmol/L (22-29); Chloride 102 mmol/L (96-108); Creatinine Clr Calc Pharmacy 78.1; Estimated Glomerular Filt Rate > 60; Glucose Random 251 mg/dL (60-115); Potassium 3.7 mmol/L (3.3-5.1); Sodium 137 mmol/L (135-145)
[2024-06-14] MEDS: cloZAPine 25 MG TABLET 50 MG PO ×2 (12:10→21:00)
[2024-06-14] MEDS: Gabapentin 400 MG CAPSULE PO (12:10)
[2024-06-14 13:17] VITALS: BP 105/63; PULSE 103; RESP 16; TEMP 37.8; O2SAT 95
[2024-06-14] MEDS: cefuroxime axetiL 500 MG TABLET PO (15:02)
[2024-06-14] MEDS: metFORMIN HCl 1,000 MG TABLET 1000 MG PO (17:31)
[2024-06-14 17:40] LABS: Glucose, Whole Blood 80 mg/dL (60-115)
[2024-06-14 18:00] VITALS: BP 106/58; PULSE 94; RESP 16; TEMP 36.4; O2SAT 97
[2024-06-14 20:00] VITALS: BP 99/51; PULSE 98; RESP 14; TEMP 36.5; O2SAT 98
[2024-06-14] MEDS: Mirtazapine 15 MG TABLET 45 MG PO (20:58)
[2024-06-14 21:49] LABS: Glucose, Whole Blood 107 mg/dL (60-115)
[2024-06-15] VITALS: BP 126/60; PULSE 111; RESP 16; TEMP 36.7; O2SAT 95
[2024-06-15] MEDS: cefuroxime axetiL 500 MG TABLET PO ×2 (01:32→14:07)
[2024-06-15 06:00] VITALS: BP 115/72; PULSE 111; RESP 16; TEMP 36.8; O2SAT 97
[2024-06-15 07:00] VITALS: BMI 27.4
[2024-06-15 07:44] VITALS: BP 110/67; PULSE 109; RESP 24; TEMP 36.9; O2SAT 95
[2024-06-15] MEDS: LORazepam 1 MG TABLET 2 MG PO ×3 (08:28→21:24)
[2024-06-15] MEDS: metFORMIN HCl 1,000 MG TABLET 1000 MG PO ×2 (08:28→16:57)
[2024-06-15] MEDS: Gabapentin 400 MG CAPSULE 800 MG PO ×3 (08:29→21:24)
[2024-06-15] MEDS: Empagliflozin 25 MG TABLET PO (08:29)
[2024-06-15] MEDS: Atorvastatin Calcium 40 MG TABLET PO (08:29)
[2024-06-15] MEDS: Metoprolol Succinate ER 25 MG TAB.ER.24H PO (08:29)
[2024-06-15 09:43] LABS: Glucose, Whole Blood 156 mg/dL (60-115)
[2024-06-15 09:45] VITALS: PULSE 109; RESP 20
--- NOTE | 2024-06-15 09:46 | P.PNPSI_ITS ---
Subjective Subjective Date of Service: 06/15/24 Reason For Visit: crisis Subjective Notes: Conditional Voluntary Interim History: Reviewed with Dr. De La Rosa. Active on unit. social with peers and staff. Showered. Pt reports feeling better than yesterday ; pt reports he had not taken his medications over the weekend. Pt stated, I wanted to take a break for a few days but I'm willing to start taking them again. I'll be compliant. I just hate having to come to the hospital once a month to get my blood drawn for the medication . Pt was educated regarding the importance of medication compliance. denies SI/HI/VH/AH. Pt placed on 15 minute safety checks. No tremors noted this morning. Medication Compliance: Yes Side effects from medications: No Attending Groups: Yes Mental Status Exam Mental Status Exam Narrative: Pt is alert and oriented; behavior is cooperative, friendly and calm; dressed in hospital attire; mood is described as better ; eye contact appropriate; Speech is normal rate, volume and not pressured; thought process is organized; Thought content is on tx; denies SI/HI/VH/AH. Diagnostics Vital Signs (24Hr): Vital Signs - 24 hr 06/14/24 10:30 06/14/24 13:17 06/14/24 18:00 Temperature 97.3 F 100.0 F 97.5 F Pulse Rate 120 H 103 H 94 Respiratory Rate 18 16 16 Blood Pressure 143/75 H 105/63 106/58 L Pulse Oximetry 96 95 97 Oxygen Delivery Method Room Air Room Air Room Air 06/14/24 20:00 06/15/24 00:00 06/15/24 06:00 Temperature 97.7 F 98.1 F 98.3 F Pulse Rate 98 111 H 111 H Respiratory Rate 14 16 16 Blood Pressure 99/51 L 126/60 115/72 Pulse Oximetry 98 95 97 Oxygen Delivery Method Room Air Room Air Room Air 06/15/24 07:44 Temperature 98.4 F Pulse Rate 109 H Respiratory Rate 24 H Blood Pressure 110/67 Pulse Oximetry 95 Oxygen Delivery Method Room Air BMI result Body Mass Index 27.4 Labs 06/14/24 11:21 06/14/24 11:21 Labs: Laboratory Results - last 48 hr 06/12/24 06/13/24 06/14/24 16:54 15:58 11:13 WBC RBC Hgb Hct MCV MCH MCHC RDW Plt Count MPV Immature Gran % (Auto) Neut % (Auto) Lymph % (Auto) [place] % (Auto) Eos % (Auto) Baso % (Auto) Lymph # (Auto) [place] # (Auto) Eos # (Auto) Baso # (Auto) Abs Immat Gran (auto) Absolute Neuts (auto) Absolute Nucleated RBC Nucleated RBC % (auto) Sodium 145 Potassium 3.3 Chloride 107 Carbon Dioxide 21 L Anion Gap 20 BUN 20 H Creatinine 0.89 Estim Creat Clear Calc 99.2 Estimated GFR > 60 POC Glucose 279 H Random Glucose Fasting Glucose 112 H Estimat Average Glucose 126 Hemoglobin A1c % 6.0 Calcium 10.9 H Total Bilirubin 1.2 H Direct Bilirubin 0.4 AST 34 ALT 27 Alkaline Phosphatase 154 H Ammonia 56 H Total Protein 8.6 H Albumin 5.6 H Triglycerides 89 Cholesterol 152 LDL Cholesterol, Calc 100 H HDL Cholesterol 35 L TSH 2.35 06/14/24 06/14/24 06/14/24 11:21 17:35 21:44 WBC 11.2 H RBC 5.58 Hgb 15.5 Hct 47.8 MCV 85.7 MCH 27.8 MCHC 32.4 RDW 13.9 Plt Count 275 MPV 9.3 L Immature Gran % (Auto) 0.3 Neut % (Auto) 86.7 H Lymph % (Auto) 9.8 L [place] % (Auto) 2.8 Eos % (Auto) 0.0 Baso % (Auto) 0.4 Lymph # (Auto) 1.1 L [place] # (Auto) 0.3 Eos # (Auto) 0.0 Baso # (Auto) 0.1 Abs Immat Gran (auto) 0.03 Absolute Neuts (auto) 9.7 H Absolute Nucleated RBC 0.000 Nucleated RBC % (auto) 0.0 Sodium 137 Potassium 3.7 Chloride 102 Carbon Dioxide 19 L Anion Gap 20 BUN 23 H Creatinine 1.13 Estim Creat Clear Calc 78.1 Estimated GFR > 60 POC Glucose 80 107 Random Glucose 251 H Fasting Glucose Estimat Average Glucose Hemoglobin A1c % Calcium 9.9 D Total Bilirubin Direct Bilirubin AST ALT Alkaline Phosphatase Ammonia Total Protein Albumin Triglycerides Cholesterol LDL Cholesterol, Calc HDL Cholesterol TSH 06/15/24 09:37 WBC RBC Hgb Hct MCV MCH MCHC RDW Plt Count MPV Immature Gran % (Auto) Neut % (Auto) Lymph % (Auto) [place] % (Auto) Eos % (Auto) Baso % (Auto) Lymph # (Auto) [place] # (Auto) Eos # (Auto) Baso # (Auto) Abs Immat Gran (auto) Absolute Neuts (auto) Absolute Nucleated RBC Nucleated RBC % (auto) Sodium Potassium Chloride Carbon Dioxide Anion Gap BUN Creatinine Estim Creat Clear Calc Estimated GFR POC Glucose 156 H Random Glucose Fasting Glucose Estimat Average Glucose Hemoglobin A1c % Calcium Total Bilirubin Direct Bilirubin AST ALT Alkaline Phosphatase Ammonia Total Protein Albumin Triglycerides Cholesterol LDL Cholesterol, Calc HDL Cholesterol TSH Medications Medications Current Medications Acetaminophen (Acetaminophen 325 Mg Tablet) 650 mg PO Q6H PRN PRN Reason: Headache/Pain Mild Scale (1-3) Al Hydroxide/Mg Hydroxide (Magnesium Hydrox/Alum Hydrox 30 Ml Oral.Susp) 30 ml PO Q6H PRN PRN Reason: Heartburn/Nausea Atorvastatin Calcium (Atorvastatin Calcium 40 Mg Tablet) 40 mg PO DAILY [facility] Last Admin: 06/15/24 08:29 Dose: 40 mg Cefuroxime Axetil (Cefuroxime Axetil 500 Mg Tablet) 500 mg PO Q12H [facility] Stop: 06/21/24 01:46 Last Admin: 06/15/24 01:32 Dose: 500 mg Clonazepam (Clonazepam 0.5 Mg Tablet) 0.5 mg PO TID [facility] Last Admin: 06/13/24 15:54 Dose: Not Given Clozapine (Clozapine 25 Mg Tablet) 50 mg PO BEDTIME [facility] Last Admin: 06/14/24 21:00 Dose: 50 mg Empagliflozin (Empagliflozin 25 Mg Tablet) 25 mg PO DAILY [facility] Last Admin: 06/15/24 08:29 Dose: 25 mg Gabapentin (Gabapentin 400 Mg Capsule) 800 mg PO TID [facility] Last Admin: 06/15/24 08:29 Dose: 800 mg Hydroxyzine HCl (Hydroxyzine Hcl 25 Mg Tablet) 25 mg PO Q6H PRN PRN Reason: Anxiety Lorazepam (Lorazepam 1 Mg Tablet) 2 mg PO TID [facility] Last Admin: 06/15/24 08:28 Dose: 2 mg Magnesium Hydroxide (Milk Of Magnesia 30 Ml Oral.Susp) 30 ml PO DAILY PRN PRN Reason: Constipation Metformin HCl (Metformin Hcl 1,000 Mg Tablet) 1,000 mg PO BIDWM [facility] Last Admin: 06/15/24 08:28 Dose: 1,000 mg Metoprolol Succinate (Metoprolol Succinate Er 25 Mg Tab.Er.24h) 25 mg PO DAILY [facility]; Protocol Last Admin: 06/15/24 08:29 Dose: 25 mg Mirtazapine (Mirtazapine 15 Mg Tablet) 45 mg PO BEDTIME [facility] Last Admin: 06/14/24 20:58 Dose: 45 mg Nicotine (Nicotine 21 Mg Patch.Td24) 21 mg TRANSDERMA DAILY [facility] Last Admin: 06/15/24 08:33 Dose: Not Given Nicotine Polacrilex (Nicotine Polacrilex 2 Mg Gum) 4 mg BUCCAL Q2H PRN PRN Reason: Nicotine Cravings Non-Formulary Medication (Dulaglutide [Trulicity]) 3 mg SUBCUT WE@0900 [facility] Olanzapine (Olanzapine 5 Mg Tablet) 5 mg PO Q4H PRN PRN Reason: agitation Trazodone HCl (Trazodone Hcl 50 Mg Tablet) 50 mg PO BEDTIME MRX1 PRN PRN Reason: Insomnia Allergies Allergies Allergy/AdvReac Type Severity Reaction Status Date / Time haloperidol [From Haldol] Allergy Intermediate Agitated Verified 06/12/24 14:39 lithium Allergy Intermediate Agitated Verified 04/22/24 21:45 oxcarbazepine Allergy Unknown RASH Verified 04/22/24 21:45 [From TRILEPTAL] fluphenazine [From Prolixin] Allergy akathisia Verified 04/22/24 21:45 Assessment & Plan Assessment & Plan (1) Schizoaffective disorder: Status: Acute Code(s): F25.9 - Schizoaffective disorder, unspecified Plan Patient is a 48 year old male with hx of schizoaffective disorder who was brought in via EMS and PD on a section 12 due to destroying his apartment, breaking objects on his head, and reporting suicidal ideation, stating he wanted to shoot himself. Plan: CV 5 minute safety checks Continue home medications encourage medication compliance hospitalist consult monitor labs obtain collateral Start: Ativan 2mg PO TID hold klonopin for now discharge planning 06/15: Active on unit. social with peers and staff. Showered. Pt reports feeling better than yesterday ; pt reports he had not taken his medications over the weekend. Pt stated, I wanted to take a break for a few days but I'm willing to start taking them again. I'll be compliant. I just hate having to come to the hospital once a month to get my blood drawn for the medication . Pt was educated regarding the importance of medication compliance. denies SI/HI/VH/AH. Pt placed on 15 minute safety checks. No tremors noted this morning. Continue current tx plan. Patient educated on: diagnosis and medication risk/benefits Reason for continued inpatient stay Substantial Risk for: med/psych decompensation Time Spent With Patient Time: Total time managing care of this patient today _30___ minutes.
[2024-06-15 19:44] VITALS: BP 115/70; PULSE 113; RESP 16; TEMP 36.5; O2SAT 97
[2024-06-15 20:24] LABS: Glucose, Whole Blood 128 mg/dL (60-115)
[2024-06-15] MEDS: Mirtazapine 15 MG TABLET 45 MG PO (21:23)
[2024-06-15] MEDS: cloZAPine 25 MG TABLET 50 MG PO (21:24)
[2024-06-16 07:45] VITALS: BP 120/72; PULSE 99; RESP 24; TEMP 36.4; O2SAT 96
[2024-06-16 07:56] LABS: Glucose, Whole Blood 129 mg/dL (60-115)
[2024-06-16] MEDS: LORazepam 1 MG TABLET 2 MG PO ×2 (08:34→20:33)
[2024-06-16] MEDS: Empagliflozin 25 MG TABLET PO (08:35)
[2024-06-16] MEDS: metFORMIN HCl 1,000 MG TABLET 1000 MG PO ×2 (08:35→17:04)
[2024-06-16] MEDS: Gabapentin 400 MG CAPSULE 800 MG PO ×3 (08:35→20:32)
[2024-06-16] MEDS: cefuroxime axetiL 500 MG TABLET PO ×2 (08:35→20:31)
[2024-06-16] MEDS: Metoprolol Succinate ER 25 MG TAB.ER.24H PO (08:36)
[2024-06-16] MEDS: Atorvastatin Calcium 40 MG TABLET PO (08:36)
--- NOTE | 2024-06-16 09:18 | HO.PSYCHPN ---
Subjective Subjective Date of Service: 06/16/24 Reason For Visit: crisis Subjective Notes: Conditional Voluntary Interim History: Reviewed with Dr. De La Rosa. Active on unit. social with peers and staff. Pt reports feeling worried ; Pt stated, I'm worried if they won't let me go back to my apartment because I broke a lot of stuff and never acted like that before . denies SI/HI/VH/AH. Clozapine increased to 75mg PO bedtime. Medication Compliance: Yes Side effects from medications: No Attending Groups: Yes Review of Systems Constitutional: Reports as per HPI Eyes: Reports as per HPI Reports as per HPI Cardiovascular: Reports as per HPI Respiratory: Reports as per HPI Gastrointestinal: Reports as per HPI Genitourinary: Reports as per HPI Musculoskeletal: Reports as per HPI Skin/Breast: Reports as per HPI Reports as per HPI Psychiatric: Reports as per HPI Endocrine: Reports as per HPI Hematologic/Lymphatic: Reports as per HPI Allergic/Immunologic: Reports as per HPI Mental Status Exam Mental Status Exam Narrative: Pt is alert and oriented; behavior is cooperative, friendly and calm; dressed in hospital attire; mood is described as worried ; eye contact appropriate; Speech is normal rate, volume and not pressured; thought process is organized; Thought content is on tx; denies SI/HI/VH/AH. Diagnostics Vital Signs (24Hr): Vital Signs - 24 hr 06/15/24 09:45 06/15/24 19:44 06/16/24 07:45 Temperature 97.7 F 97.6 F Pulse Rate 109 H 113 H 99 Respiratory Rate 20 16 24 H Blood Pressure 115/70 120/72 Pulse Oximetry 97 96 Oxygen Delivery Method Room Air Room Air BMI result Body Mass Index 27.4 Labs 06/14/24 11:21 06/14/24 11:21 Labs: Laboratory Results - last 48 hr 06/14/24 06/14/24 06/14/24 11:13 11:21 17:35 WBC 11.2 H RBC 5.58 Hgb 15.5 Hct 47.8 MCV 85.7 MCH 27.8 MCHC 32.4 RDW 13.9 Plt Count 275 MPV 9.3 L Immature Gran % (Auto) 0.3 Neut % (Auto) 86.7 H Lymph % (Auto) 9.8 L [place] % (Auto) 2.8 Eos % (Auto) 0.0 Baso % (Auto) 0.4 Lymph # (Auto) 1.1 L [place] # (Auto) 0.3 Eos # (Auto) 0.0 Baso # (Auto) 0.1 Abs Immat Gran (auto) 0.03 Absolute Neuts (auto) 9.7 H Absolute Nucleated RBC 0.000 Nucleated RBC % (auto) 0.0 Sodium 137 Potassium 3.7 Chloride 102 Carbon Dioxide 19 L Anion Gap 20 BUN 23 H Creatinine 1.13 Estim Creat Clear Calc 78.1 Estimated GFR > 60 POC Glucose 279 H 80 Random Glucose 251 H Calcium 9.9 D 06/14/24 06/15/24 06/15/24 21:44 09:37 20:20 WBC RBC Hgb Hct MCV MCH MCHC RDW Plt Count MPV Immature Gran % (Auto) Neut % (Auto) Lymph % (Auto) [place] % (Auto) Eos % (Auto) Baso % (Auto) Lymph # (Auto) [place] # (Auto) Eos # (Auto) Baso # (Auto) Abs Immat Gran (auto) Absolute Neuts (auto) Absolute Nucleated RBC Nucleated RBC % (auto) Sodium Potassium Chloride Carbon Dioxide Anion Gap BUN Creatinine Estim Creat Clear Calc Estimated GFR POC Glucose 107 156 H 128 H Random Glucose Calcium 06/16/24 07:51 WBC RBC Hgb Hct MCV MCH MCHC RDW Plt Count MPV Immature Gran % (Auto) Neut % (Auto) Lymph % (Auto) [place] % (Auto) Eos % (Auto) Baso % (Auto) Lymph # (Auto) [place] # (Auto) Eos # (Auto) Baso # (Auto) Abs Immat Gran (auto) Absolute Neuts (auto) Absolute Nucleated RBC Nucleated RBC % (auto) Sodium Potassium Chloride Carbon Dioxide Anion Gap BUN Creatinine Estim Creat Clear Calc Estimated GFR POC Glucose 129 H Random Glucose Calcium Medications Medications Current Medications Acetaminophen (Acetaminophen 325 Mg Tablet) 650 mg PO Q6H PRN PRN Reason: Headache/Pain Mild Scale (1-3) Al Hydroxide/Mg Hydroxide (Magnesium Hydrox/Alum Hydrox 30 Ml Oral.Susp) 30 ml PO Q6H PRN PRN Reason: Heartburn/Nausea Atorvastatin Calcium (Atorvastatin Calcium 40 Mg Tablet) 40 mg PO DAILY [facility] Last Admin: 06/16/24 08:36 Dose: 40 mg Cefuroxime Axetil (Cefuroxime Axetil 500 Mg Tablet) 500 mg PO Q12H [facility] Stop: 06/21/24 09:01 Last Admin: 06/16/24 08:35 Dose: 500 mg Clonazepam (Clonazepam 0.5 Mg Tablet) 0.5 mg PO TID [facility] Last Admin: 06/13/24 15:54 Dose: Not Given Clozapine (Clozapine 25 Mg Tablet) 50 mg PO BEDTIME [facility] Last Admin: 06/15/24 21:24 Dose: 50 mg Empagliflozin (Empagliflozin 25 Mg Tablet) 25 mg PO DAILY [facility] Last Admin: 06/16/24 08:35 Dose: 25 mg Gabapentin (Gabapentin 400 Mg Capsule) 800 mg PO TID [facility] Last Admin: 06/16/24 08:35 Dose: 800 mg Hydroxyzine HCl (Hydroxyzine Hcl 25 Mg Tablet) 25 mg PO Q6H PRN PRN Reason: Anxiety Lorazepam (Lorazepam 1 Mg Tablet) 2 mg PO TID [facility] Last Admin: 06/16/24 08:34 Dose: 2 mg Magnesium Hydroxide (Milk Of Magnesia 30 Ml Oral.Susp) 30 ml PO DAILY PRN PRN Reason: Constipation Metformin HCl (Metformin Hcl 1,000 Mg Tablet) 1,000 mg PO BIDWM [facility] Last Admin: 06/16/24 08:35 Dose: 1,000 mg Metoprolol Succinate (Metoprolol Succinate Er 25 Mg Tab.Er.24h) 25 mg PO DAILY [facility]; Protocol Last Admin: 06/16/24 08:36 Dose: 25 mg Mirtazapine (Mirtazapine 15 Mg Tablet) 45 mg PO BEDTIME [facility] Last Admin: 06/15/24 21:23 Dose: 45 mg Nicotine Polacrilex (Nicotine Polacrilex 2 Mg Gum) 4 mg BUCCAL Q2H PRN PRN Reason: Nicotine Cravings Non-Formulary Medication (Dulaglutide [Trulicity]) 3 mg SUBCUT WE@0900 [facility] Olanzapine (Olanzapine 5 Mg Tablet) 5 mg PO Q4H PRN PRN Reason: agitation Trazodone HCl (Trazodone Hcl 50 Mg Tablet) 50 mg PO BEDTIME MRX1 PRN PRN Reason: Insomnia Allergies Allergies Allergy/AdvReac Type Severity Reaction Status Date / Time haloperidol [From Haldol] Allergy Intermediate Agitated Verified 06/12/24 14:39 lithium Allergy Intermediate Agitated Verified 04/22/24 21:45 oxcarbazepine Allergy Unknown RASH Verified 04/22/24 21:45 [From TRILEPTAL] fluphenazine [From Prolixin] Allergy akathisia Verified 04/22/24 21:45 Assessment & Plan Assessment & Plan (1) Schizoaffective disorder: Status: Acute Code(s): F25.9 - Schizoaffective disorder, unspecified Plan Patient is a 48 year old male with hx of schizoaffective disorder who was brought in via EMS and PD on a section 12 due to destroying his apartment, breaking objects on his head, and reporting suicidal ideation, stating he wanted to shoot himself. Plan: CV 5 minute safety checks Continue home medications encourage medication compliance hospitalist consult monitor labs obtain collateral Start: Ativan 2mg PO TID hold klonopin for now discharge planning 06/15: Active on unit. social with peers and staff. Showered. Pt reports feeling better than yesterday ; pt reports he had not taken his medications over the weekend. Pt stated, I wanted to take a break for a few days but I'm willing to start taking them again. I'll be compliant. I just hate having to come to the hospital once a month to get my blood drawn for the medication . Pt was educated regarding the importance of medication compliance. denies SI/HI/VH/AH. Pt placed on 15 minute safety checks. No tremors noted this morning. Continue current tx plan. 06/16: Active on unit. social with peers and staff. Pt reports feeling worried ; Pt stated, I'm worried if they won't let me go back to my apartment because I broke a lot of stuff and never acted like that before . denies SI/HI/VH/AH. Clozapine increased to 75mg PO bedtime. Patient educated on: diagnosis, medication risk/benefits and therapeutic strategies Reason for continued inpatient stay Substantial Risk for: med/psych decompensation Time Spent With Patient Time: Total time managing care of this patient today _20___ minutes.
[2024-06-16 19:42] VITALS: BP 119/75; PULSE 107; RESP 16; TEMP 36.4; O2SAT 98
[2024-06-16] MEDS: Mirtazapine 15 MG TABLET 45 MG PO (20:29)
[2024-06-16] MEDS: cloZAPine 25 MG TABLET 75 MG PO (20:30)
[2024-06-16 20:54] LABS: Glucose, Whole Blood 144 mg/dL (60-115)
[2024-06-17 07:40] VITALS: BP 127/66; PULSE 96; RESP 14; TEMP 36.6; O2SAT 94
[2024-06-17 07:54] LABS: Glucose, Whole Blood 116 mg/dL (60-115)
[2024-06-17 09:02] VITALS: BP 127/66; PULSE 96
[2024-06-17] MEDS: Metoprolol Succinate ER 25 MG TAB.ER.24H PO (09:02)
[2024-06-17] MEDS: Gabapentin 400 MG CAPSULE 800 MG PO ×3 (09:02→20:28)
[2024-06-17] MEDS: cefuroxime axetiL 500 MG TABLET PO ×2 (09:03→20:28)
[2024-06-17] MEDS: metFORMIN HCl 1,000 MG TABLET 1000 MG PO ×2 (09:03→17:13)
[2024-06-17] MEDS: Empagliflozin 25 MG TABLET PO (09:03)
[2024-06-17] MEDS: Atorvastatin Calcium 40 MG TABLET PO (09:03)
[2024-06-17] MEDS: LORazepam 1 MG TABLET 2 MG PO ×2 (09:03→20:28)
--- NOTE | 2024-06-17 16:21 | HO.PSYCHPN ---
Subjective Subjective Date of Service: 06/17/24 Reason For Visit: crisis Subjective Notes: Conditional Voluntary Interim History: Pt slept through the night. he has been visible on the unit. No SI/HI. No overt psychosis or delusional content noted or reported. reports having BM. no concerns. Medication Compliance: Yes Review of Systems Review of Systems Yes Unobtainable due to mental status Constitutional: Reports as per HPI Eyes: Reports as per HPI Reports as per HPI Cardiovascular: Reports as per HPI Respiratory: Reports as per HPI Gastrointestinal: Reports as per HPI Genitourinary: Reports as per HPI Musculoskeletal: Reports as per HPI Skin/Breast: Reports as per HPI Reports as per HPI Psychiatric: Reports as per HPI Endocrine: Reports as per HPI Hematologic/Lymphatic: Reports as per HPI Allergic/Immunologic: Reports as per HPI Mental Status Exam Mental Status Exam Narrative: Pt is alert and oriented; behavior is cooperative, friendly and calm; dressed in hospital attire; mood is described as worried ; eye contact appropriate; Speech is normal rate, volume and not pressured; thought process is organized; Thought content is on tx; denies SI/HI/VH/AH. Diagnostics Vital Signs (24Hr): Vital Signs - 24 hr 06/16/24 19:42 06/17/24 07:40 06/17/24 09:02 Temperature 97.6 F 97.9 F Pulse Rate 107 H 96 96 Respiratory Rate 16 14 Blood Pressure 119/75 127/66 127/66 Pulse Oximetry 98 94 Oxygen Delivery Method Room Air Room Air BMI result Body Mass Index 27.4 Labs 06/14/24 11:21 06/14/24 11:21 Labs: Laboratory Results - last 48 hr 06/15/24 06/16/24 06/16/24 20:20 07:51 20:50 POC Glucose 128 H 129 H 144 H 06/17/24 07:46 POC Glucose 116 H Medications Medications Current Medications Acetaminophen (Acetaminophen 325 Mg Tablet) 650 mg PO Q6H PRN PRN Reason: Headache/Pain Mild Scale (1-3) Al Hydroxide/Mg Hydroxide (Magnesium Hydrox/Alum Hydrox 30 Ml Oral.Susp) 30 ml PO Q6H PRN PRN Reason: Heartburn/Nausea Atorvastatin Calcium (Atorvastatin Calcium 40 Mg Tablet) 40 mg PO DAILY [facility] Last Admin: 06/17/24 09:03 Dose: 40 mg Cefuroxime Axetil (Cefuroxime Axetil 500 Mg Tablet) 500 mg PO Q12H [facility] Stop: 06/21/24 09:01 Last Admin: 06/17/24 09:03 Dose: 500 mg Clonazepam (Clonazepam 0.5 Mg Tablet) 0.5 mg PO TID [facility] Last Admin: 06/13/24 15:54 Dose: Not Given Clozapine (Clozapine 25 Mg Tablet) 75 mg PO BEDTIME [facility] [place] Last Admin: 06/16/24 20:30 Dose: 75 mg Empagliflozin (Empagliflozin 25 Mg Tablet) 25 mg PO DAILY [facility] [place] Last Admin: 06/17/24 09:03 Dose: 25 mg Gabapentin (Gabapentin 400 Mg Capsule) 800 mg PO TID [facility] [place] Last Admin: 06/17/24 15:24 Dose: 800 mg Hydroxyzine HCl (Hydroxyzine Hcl 25 Mg Tablet) 25 mg PO Q6H PRN PRN Reason: Anxiety Lorazepam (Lorazepam 1 Mg Tablet) 2 mg PO BID [facility] [place] Last Admin: 06/17/24 09:03 Dose: 2 mg Magnesium Hydroxide (Milk Of Magnesia 30 Ml Oral.Susp) 30 ml PO DAILY PRN PRN Reason: Constipation Metformin HCl (Metformin Hcl 1,000 Mg Tablet) 1,000 mg PO BIDWM [facility] [place] Last Admin: 06/17/24 09:03 Dose: 1,000 mg Metoprolol Succinate (Metoprolol Succinate Er 25 Mg Tab.Er.24h) 25 mg PO DAILY [facility] [place]; Protocol Last Admin: 06/17/24 09:02 Dose: 25 mg Mirtazapine (Mirtazapine 15 Mg Tablet) 45 mg PO BEDTIME [facility] [place] Last Admin: 06/16/24 20:29 Dose: 45 mg Nicotine Polacrilex (Nicotine Polacrilex 2 Mg Gum) 4 mg BUCCAL Q2H PRN PRN Reason: Nicotine Cravings Non-Formulary Medication (Dulaglutide [Trulicity]) 3 mg SUBCUT WE@0900 [facility] [place] Olanzapine (Olanzapine 5 Mg Tablet) 5 mg PO Q4H PRN PRN Reason: agitation Trazodone HCl (Trazodone Hcl 50 Mg Tablet) 50 mg PO BEDTIME MRX1 PRN PRN Reason: Insomnia Allergies Allergies Allergy/AdvReac Type Severity Reaction Status Date / Time haloperidol [From Haldol] Allergy Intermediate Agitated Verified 06/12/24 14:39 lithium Allergy Intermediate Agitated Verified 04/22/24 21:45 oxcarbazepine Allergy Unknown RASH Verified 04/22/24 21:45 [From TRILEPTAL] fluphenazine [From Prolixin] Allergy akathisia Verified 04/22/24 21:45 Assessment & Plan Assessment & Plan (1) Schizoaffective disorder: Status: Acute Code(s): F25.9 - Schizoaffective disorder, unspecified Plan Patient is a 48 year old male with hx of schizoaffective disorder who was brought in via EMS and PD on a section 12 due to destroying his apartment, breaking objects on his head, and reporting suicidal ideation, stating he wanted to shoot himself. Plan: CV 5 minute safety checks Continue home medications encourage medication compliance hospitalist consult monitor labs obtain collateral Start: Ativan 2mg PO TID hold klonopin for now discharge planning 06/15: Active on unit. social with peers and staff. Showered. Pt reports feeling better than yesterday ; pt reports he had not taken his medications over the weekend. Pt stated, I wanted to take a break for a few days but I'm willing to start taking them again. I'll be compliant. I just hate having to come to the hospital once a month to get my blood drawn for the medication . Pt was educated regarding the importance of medication compliance. denies SI/HI/VH/AH. Pt placed on 15 minute safety checks. No tremors noted this morning. Continue current tx plan. 06/16: Active on unit. social with peers and staff. Pt reports feeling worried ; Pt stated, I'm worried if they won't let me go back to my apartment because I broke a lot of stuff and never acted like that before . denies SI/HI/VH/AH. Clozapine increased to 75mg PO bedtime. 06/17 much improved in terms of s/s of catatonia. no behavioral concerns. continue tx. Reason for continued inpatient stay Substantial Risk for: inability to function Time Spent With Patient Time: Total time managing care of this patient today ____ minutes.
[2024-06-17 20:09] VITALS: BP 119/71; PULSE 105; RESP 14; TEMP 36.4; O2SAT 98
[2024-06-17] MEDS: cloZAPine 25 MG TABLET 75 MG PO (20:28)
[2024-06-17] MEDS: Mirtazapine 15 MG TABLET 45 MG PO (20:28)
[2024-06-17 20:34] LABS: Glucose, Whole Blood 93 mg/dL (60-115)
[2024-06-18 07:30] VITALS: BP 112/67; PULSE 90; RESP 20; TEMP 36.3; O2SAT 97
[2024-06-18 08:02] LABS: Glucose, Whole Blood 106 mg/dL (60-115)
[2024-06-18 10:08] VITALS: BP 112/67; PULSE 90
[2024-06-18] MEDS: cefuroxime axetiL 500 MG TABLET PO ×2 (10:08→20:29)
[2024-06-18] MEDS: Metoprolol Succinate ER 25 MG TAB.ER.24H PO (10:08)
[2024-06-18] MEDS: LORazepam 1 MG TABLET 2 MG PO ×2 (10:09→20:29)
[2024-06-18] MEDS: Atorvastatin Calcium 40 MG TABLET PO (10:09)
[2024-06-18] MEDS: metFORMIN HCl 1,000 MG TABLET 1000 MG PO ×2 (10:09→17:16)
[2024-06-18] MEDS: Empagliflozin 25 MG TABLET PO (10:09)
[2024-06-18] MEDS: Gabapentin 400 MG CAPSULE 800 MG PO ×3 (10:09→20:28)
[2024-06-18] MEDS: Fluticasone Propionate Nasal 16 GM SPRAY 1 SPRAY NOSTRIL-B (10:17)
--- NOTE | 2024-06-18 16:05 | HO.PSYCHPN ---
Subjective Subjective Date of Service: 06/18/24 Reason For Visit: crisis Interim History: Pt slept through the night. he has been visible on the unit. No SI/HI. No overt psychosis or delusional content noted or reported. reports having BM. no concerns. Review of Systems Review of Systems Yes Unobtainable due to mental status Constitutional: Reports as per HPI Eyes: Reports as per HPI Reports as per HPI Cardiovascular: Reports as per HPI Respiratory: Reports as per HPI Gastrointestinal: Reports as per HPI Genitourinary: Reports as per HPI Musculoskeletal: Reports as per HPI Skin/Breast: Reports as per HPI Reports as per HPI Psychiatric: Reports as per HPI Endocrine: Reports as per HPI Hematologic/Lymphatic: Reports as per HPI Allergic/Immunologic: Reports as per HPI Mental Status Exam Mental Status Exam Narrative: Pt is alert and oriented; behavior is cooperative, friendly and calm; dressed in hospital attire; mood is described as worried ; eye contact appropriate; Speech is normal rate, volume and not pressured; thought process is organized; Thought content is on tx; denies SI/HI/VH/AH. Diagnostics Vital Signs (24Hr): Vital Signs - 24 hr 06/17/24 20:09 06/18/24 07:30 06/18/24 10:08 Temperature 97.6 F 97.3 F Pulse Rate 105 H 90 90 Respiratory Rate 14 20 Blood Pressure 119/71 112/67 112/67 Pulse Oximetry 98 97 Oxygen Delivery Method Room Air Room Air BMI result Body Mass Index 27.4 Labs 06/14/24 11:21 06/14/24 11:21 Labs: Laboratory Results - last 48 hr 06/16/24 06/17/24 06/17/24 20:50 07:46 20:17 POC Glucose 144 H 116 H 93 06/18/24 07:58 POC Glucose 106 Medications Medications Current Medications Acetaminophen (Acetaminophen 325 Mg Tablet) 650 mg PO Q6H PRN PRN Reason: Headache/Pain Mild Scale (1-3) Al Hydroxide/Mg Hydroxide (Magnesium Hydrox/Alum Hydrox 30 Ml Oral.Susp) 30 ml PO Q6H PRN PRN Reason: Heartburn/Nausea Atorvastatin Calcium (Atorvastatin Calcium 40 Mg Tablet) 40 mg PO DAILY [facility] Last Admin: 06/18/24 10:09 Dose: 40 mg Cefuroxime Axetil (Cefuroxime Axetil 500 Mg Tablet) 500 mg PO Q12H [facility] Stop: 06/21/24 09:01 Last Admin: 06/18/24 10:08 Dose: 500 mg Clonazepam (Clonazepam 0.5 Mg Tablet) 0.5 mg PO TID [facility] Last Admin: 06/13/24 15:54 Dose: Not Given Clozapine (Clozapine 25 Mg Tablet) 75 mg PO BEDTIME [facility] Last Admin: 06/17/24 20:28 Dose: 75 mg Empagliflozin (Empagliflozin 25 Mg Tablet) 25 mg PO DAILY [facility] Last Admin: 06/18/24 10:09 Dose: 25 mg Fluticasone Propionate (Fluticasone Propionate Nasal 16 Gm [place]) 1 spray NOSTRIL-B DAILY [facility] Last Admin: 06/18/24 10:17 Dose: 1 spray Gabapentin (Gabapentin 400 Mg Capsule) 800 mg PO TID [facility] Last Admin: 06/18/24 10:09 Dose: 800 mg Hydroxyzine HCl (Hydroxyzine Hcl 25 Mg Tablet) 25 mg PO Q6H PRN PRN Reason: Anxiety Lorazepam (Lorazepam 1 Mg Tablet) 2 mg PO BID [facility] Last Admin: 06/18/24 10:09 Dose: 2 mg Magnesium Hydroxide (Milk Of Magnesia 30 Ml Oral.Susp) 30 ml PO DAILY PRN PRN Reason: Constipation Metformin HCl (Metformin Hcl 1,000 Mg Tablet) 1,000 mg PO BIDWM [facility] Last Admin: 06/18/24 10:09 Dose: 1,000 mg Metoprolol Succinate (Metoprolol Succinate Er 25 Mg Tab.Er.24h) 25 mg PO DAILY [facility]; Protocol Last Admin: 06/18/24 10:08 Dose: 25 mg Mirtazapine (Mirtazapine 15 Mg Tablet) 45 mg PO BEDTIME [facility] Last Admin: 06/17/24 20:28 Dose: 45 mg Nicotine Polacrilex (Nicotine Polacrilex 2 Mg Gum) 4 mg BUCCAL Q2H PRN PRN Reason: Nicotine Cravings Non-Formulary Medication (Dulaglutide [Trulicity]) 3 mg SUBCUT WE@0900 [facility] Olanzapine (Olanzapine 5 Mg Tablet) 5 mg PO Q4H PRN PRN Reason: agitation Trazodone HCl (Trazodone Hcl 50 Mg Tablet) 50 mg PO BEDTIME MRX1 PRN PRN Reason: Insomnia Allergies Allergies Allergy/AdvReac Type Severity Reaction Status Date / Time haloperidol [From Haldol] Allergy Intermediate Agitated Verified 10/21/24 14:39 lithium Allergy Intermediate Agitated Verified 04/22/24 21:45 oxcarbazepine Allergy Unknown RASH Verified 04/22/24 21:45 [From TRILEPTAL] fluphenazine [From Prolixin] Allergy akathisia Verified 04/22/24 21:45 Assessment & Plan Assessment & Plan (1) Schizoaffective disorder: Status: Acute Code(s): F25.9 - Schizoaffective disorder, unspecified Plan Patient is a 48 year old male with hx of schizoaffective disorder who was brought in via EMS and PD on a section 12 due to destroying his apartment, breaking objects on his head, and reporting suicidal ideation, stating he wanted to shoot himself. Plan: CV 5 minute safety checks Continue home medications encourage medication compliance hospitalist consult monitor labs obtain collateral Start: Ativan 2mg PO TID hold klonopin for now discharge planning 06/15: Active on unit. social with peers and staff. Showered. Pt reports feeling better than yesterday ; pt reports he had not taken his medications over the weekend. Pt stated, I wanted to take a break for a few days but I'm willing to start taking them again. I'll be compliant. I just hate having to come to the hospital once a month to get my blood drawn for the medication . Pt was educated regarding the importance of medication compliance. denies SI/HI/VH/AH. Pt placed on 15 minute safety checks. No tremors noted this morning. Continue current tx plan. 06/16: Active on unit. social with peers and staff. Pt reports feeling worried ; Pt stated, I'm worried if they won't let me go back to my apartment because I broke a lot of stuff and never acted like that before . denies SI/HI/VH/AH. Clozapine increased to 75mg PO bedtime. 06/17 much improved in terms of s/s of catatonia. continue tx 06/18 continue tx. Reason for continued inpatient stay Substantial Risk for: inability to function Time Spent With Patient Time: Total time managing care of this patient today ____ minutes.
[2024-06-18 18:00] VITALS: BP 131/73; PULSE 97; RESP 16; TEMP 36.6; O2SAT 97
[2024-06-18] MEDS: Mirtazapine 15 MG TABLET 45 MG PO (20:27)
[2024-06-18] MEDS: cloZAPine 25 MG TABLET 75 MG PO (20:28)
[2024-06-18 20:43] LABS: Glucose, Whole Blood 103 mg/dL (60-115)
[2024-06-19 06:03] LABS: Clozapine (Clozaril) 56 mcg/L; Norclozapine 80 mcg/L (25-400)
[2024-06-19 07:29] VITALS: BP 115/66; PULSE 90; RESP 16; TEMP 36.7; O2SAT 95
[2024-06-19 08:07] LABS: Glucose, Whole Blood 89 mg/dL (60-115)
[2024-06-19] MEDS: cefuroxime axetiL 500 MG TABLET PO ×2 (08:14→21:06)
[2024-06-19] MEDS: LORazepam 1 MG TABLET 2 MG PO (08:14)
[2024-06-19] MEDS: Atorvastatin Calcium 40 MG TABLET PO (08:15)
[2024-06-19] MEDS: Metoprolol Succinate ER 25 MG TAB.ER.24H PO (08:15)
[2024-06-19] MEDS: Empagliflozin 25 MG TABLET PO (08:15)
[2024-06-19] MEDS: Gabapentin 400 MG CAPSULE 800 MG PO ×3 (08:15→21:05)
[2024-06-19] MEDS: metFORMIN HCl 1,000 MG TABLET 1000 MG PO ×2 (08:15→17:29)
[2024-06-19] MEDS: Fluticasone Propionate Nasal 16 GM SPRAY 1 SPRAY NOSTRIL-B (08:16)
--- NOTE | 2024-06-19 13:01 | HO.PSYCHPN ---
Subjective Subjective Date of Service: 06/19/24 Reason For Visit: crisis Subjective Notes: Conditional Voluntary Interim History: Reviewed with Dr. De La Rosa. Pt reports feeling better than before ; reports sleeping okay. denies any issues at this time. denies SI/HI/VH/AH. Clozaril increased to 100mg PO bedtime; pt aware. Medication Compliance: Yes Side effects from medications: No Review of Systems Constitutional: Reports as per HPI Eyes: Reports as per HPI Reports as per HPI Cardiovascular: Reports as per HPI Respiratory: Reports as per HPI Gastrointestinal: Reports as per HPI Genitourinary: Reports as per HPI Musculoskeletal: Reports as per HPI Skin/Breast: Reports as per HPI Reports as per HPI Psychiatric: Reports as per HPI Endocrine: Reports as per HPI Hematologic/Lymphatic: Reports as per HPI Allergic/Immunologic: Reports as per HPI Mental Status Exam Mental Status Exam Narrative: Pt is alert and oriented; behavior is cooperative and calm; dressed in casual attire; mood is described as okay ; eye contact appropriate; Speech is normal rate, volume and not pressured; thought process is organized; Thought content is on tx; otherwise pertinent to relevant topics and without any delusional content, paranoid ideations or grandiosity; denies SI/HI/VH/AH. Diagnostics Vital Signs (24Hr): Vital Signs - 24 hr 06/18/24 18:00 06/19/24 07:29 Temperature 97.8 F 98.1 F Pulse Rate 97 90 Respiratory Rate 16 16 Blood Pressure 131/73 115/66 Pulse Oximetry 97 95 Oxygen Delivery Method Room Air Room Air BMI result Body Mass Index 27.4 Labs 06/14/24 11:21 06/14/24 11:21 Labs: Laboratory Results - last 48 hr 06/14/24 06/17/24 06/18/24 11:21 20:17 07:58 POC Glucose 93 106 Clozapine 56 Norclozapine 80 06/18/24 06/19/24 20:38 08:00 POC Glucose 103 89 Clozapine Norclozapine Medications Medications Current Medications Acetaminophen (Acetaminophen 325 Mg Tablet) 650 mg PO Q6H PRN PRN Reason: Headache/Pain Mild Scale (1-3) Al Hydroxide/Mg Hydroxide (Magnesium Hydrox/Alum Hydrox 30 Ml Oral.Susp) 30 ml PO Q6H PRN PRN Reason: Heartburn/Nausea Atorvastatin Calcium (Atorvastatin Calcium 40 Mg Tablet) 40 mg PO DAILY [facility] Last Admin: 06/19/24 08:15 Dose: 40 mg Cefuroxime Axetil (Cefuroxime Axetil 500 Mg Tablet) 500 mg PO Q12H [facility] Stop: 06/21/24 09:01 Last Admin: 06/19/24 08:14 Dose: 500 mg Clonazepam (Clonazepam 0.5 Mg Tablet) 0.5 mg PO TID [facility] Last Admin: 06/13/24 15:54 Dose: Not Given Clozapine (Clozapine 100 Mg Tablet) 100 mg PO BEDTIME [facility] Empagliflozin (Empagliflozin 25 Mg Tablet) 25 mg PO DAILY [facility] Last Admin: 06/19/24 08:15 Dose: 25 mg Fluticasone Propionate (Fluticasone Propionate Nasal 16 Gm [place]) 1 spray NOSTRIL-B DAILY [facility] Last Admin: 06/19/24 08:16 Dose: 1 spray Gabapentin (Gabapentin 400 Mg Capsule) 800 mg PO TID [facility] Last Admin: 06/19/24 08:15 Dose: 800 mg Hydroxyzine HCl (Hydroxyzine Hcl 25 Mg Tablet) 25 mg PO Q6H PRN PRN Reason: Anxiety Lorazepam (Lorazepam 1 Mg Tablet) 1 mg PO TID [facility] Magnesium Hydroxide (Milk Of Magnesia 30 Ml Oral.Susp) 30 ml PO DAILY PRN PRN Reason: Constipation Metformin HCl (Metformin Hcl 1,000 Mg Tablet) 1,000 mg PO BIDWM [facility] Last Admin: 06/19/24 08:15 Dose: 1,000 mg Metoprolol Succinate (Metoprolol Succinate Er 25 Mg Tab.Er.24h) 25 mg PO DAILY [facility]; Protocol Last Admin: 06/19/24 08:15 Dose: 25 mg Mirtazapine (Mirtazapine 15 Mg Tablet) 45 mg PO BEDTIME [facility] Last Admin: 06/18/24 20:27 Dose: 45 mg Nicotine Polacrilex (Nicotine Polacrilex 2 Mg Gum) 4 mg BUCCAL Q2H PRN PRN Reason: Nicotine Cravings Non-Formulary Medication (Dulaglutide [Trulicity]) 3 mg SUBCUT WE@0900 [facility] Olanzapine (Olanzapine 5 Mg Tablet) 5 mg PO Q4H PRN PRN Reason: agitation Trazodone HCl (Trazodone Hcl 50 Mg Tablet) 50 mg PO BEDTIME MRX1 PRN PRN Reason: Insomnia Allergies Allergies Allergy/AdvReac Type Severity Reaction Status Date / Time haloperidol [From Haldol] Allergy Intermediate Agitated Verified 06/12/24 14:39 lithium Allergy Intermediate Agitated Verified 04/22/24 21:45 oxcarbazepine Allergy Unknown RASH Verified 04/22/24 21:45 [From TRILEPTAL] fluphenazine [From Prolixin] Allergy akathisia Verified 04/22/24 21:45 Assessment & Plan Assessment & Plan (1) Schizoaffective disorder: Status: Acute Code(s): F25.9 - Schizoaffective disorder, unspecified Plan Patient is a 48 year old male with hx of schizoaffective disorder who was brought in via EMS and PD on a section 12 due to destroying his apartment, breaking objects on his head, and reporting suicidal ideation, stating he wanted to shoot himself. Plan: CV 5 minute safety checks Continue home medications encourage medication compliance hospitalist consult monitor labs obtain collateral Start: Ativan 2mg PO TID hold klonopin for now discharge planning 06/15: Active on unit. social with peers and staff. Showered. Pt reports feeling better than yesterday ; pt reports he had not taken his medications over the weekend. Pt stated, I wanted to take a break for a few days but I'm willing to start taking them again. I'll be compliant. I just hate having to come to the hospital once a month to get my blood drawn for the medication . Pt was educated regarding the importance of medication compliance. denies SI/HI/VH/AH. Pt placed on 15 minute safety checks. No tremors noted this morning. Continue current tx plan. 06/16: Active on unit. social with peers and staff. Pt reports feeling worried ; Pt stated, I'm worried if they won't let me go back to my apartment because I broke a lot of stuff and never acted like that before . denies SI/HI/VH/AH. Clozapine increased to 75mg PO bedtime. 06/17 much improved in terms of s/s of catatonia. continue tx 06/18 continue tx. 06/19: Pt reports feeling better than before ; reports sleeping okay. denies any issues at this time. denies SI/HI/VH/AH. Clozaril increased to 100mg PO bedtime; pt aware. Patient educated on: diagnosis and medication risk/benefits Reason for continued inpatient stay Substantial Risk for: med/psych decompensation Time Spent With Patient Time: Total time managing care of this patient today _20___ minutes.
[2024-06-19] MEDS: LORazepam 1 MG TABLET PO ×2 (14:51→21:05)
[2024-06-19 18:00] VITALS: BP 119/68; PULSE 90; RESP 16; TEMP 37.3; O2SAT 98
[2024-06-19 21:04] LABS: Glucose, Whole Blood 91 mg/dL (60-115)
[2024-06-19] MEDS: Mirtazapine 15 MG TABLET 45 MG PO (21:05)
[2024-06-19] MEDS: cloZAPine 100 MG TABLET PO (21:38)
[2024-06-20 07:57] LABS: Glucose, Whole Blood 91 mg/dL (60-115)
[2024-06-20 08:40] VITALS: BP 111/78; PULSE 95; RESP 14; TEMP 36.3; O2SAT 95
[2024-06-20 08:44] VITALS: BP 111/78; PULSE 95
[2024-06-20] MEDS: cefuroxime axetiL 500 MG TABLET PO ×2 (08:44→20:54)
[2024-06-20] MEDS: LORazepam 1 MG TABLET PO ×2 (08:44→20:53)
[2024-06-20] MEDS: Gabapentin 400 MG CAPSULE 800 MG PO ×3 (08:44→20:53)
[2024-06-20] MEDS: Metoprolol Succinate ER 25 MG TAB.ER.24H PO (08:44)
[2024-06-20] MEDS: Atorvastatin Calcium 40 MG TABLET PO (08:45)
[2024-06-20] MEDS: Empagliflozin 25 MG TABLET PO (08:46)
[2024-06-20] MEDS: metFORMIN HCl 1,000 MG TABLET 1000 MG PO ×2 (08:46→17:21)
[2024-06-20] MEDS: Fluticasone Propionate Nasal 16 GM SPRAY 1 SPRAY NOSTRIL-B (09:05)
--- NOTE | 2024-06-20 09:45 | P.PNPSI_ITS ---
Subjective Subjective Date of Service: 06/20/24 Reason For Visit: crisis Subjective Notes: Conditional Voluntary Interim History: Reviewed with Dr. De La Rosa. Pt reports feeling alright today; he is looking forward to returning home. denies SI/HI/VH/AH. Plan to discharge Wednesday; pt aware. Labs to be drawn tomorrow. Medication Compliance: Yes Side effects from medications: No Review of Systems Constitutional: Reports as per HPI Eyes: Reports as per HPI Reports as per HPI Cardiovascular: Reports as per HPI Respiratory: Reports as per HPI Gastrointestinal: Reports as per HPI Genitourinary: Reports as per HPI Musculoskeletal: Reports as per HPI Skin/Breast: Reports as per HPI Reports as per HPI Psychiatric: Reports as per HPI Endocrine: Reports as per HPI Hematologic/Lymphatic: Reports as per HPI Allergic/Immunologic: Reports as per HPI Mental Status Exam Mental Status Exam Narrative: Pt is alert and oriented; behavior is cooperative and calm; dressed in casual attire; mood is described as okay ; eye contact appropriate; Speech is normal rate, volume and not pressured; thought process is organized; Thought content is on tx; otherwise pertinent to relevant topics and without any delusional content, paranoid ideations or grandiosity; denies SI/HI/VH/AH. Diagnostics Vital Signs (24Hr): Vital Signs - 24 hr 06/19/24 18:00 06/20/24 08:44 Temperature 99.2 F Pulse Rate 90 95 Respiratory Rate 16 Blood Pressure 119/68 111/78 Pulse Oximetry 98 Oxygen Delivery Method Room Air BMI result Body Mass Index 27.4 Labs 06/14/24 11:21 06/14/24 11:21 Labs: Laboratory Results - last 48 hr 06/14/24 06/18/24 06/19/24 11:21 20:38 08:00 POC Glucose 103 89 Clozapine 56 Norclozapine 80 06/19/24 06/20/24 20:58 07:43 POC Glucose 91 91 Clozapine Norclozapine Medications Medications Current Medications Acetaminophen (Acetaminophen 325 Mg Tablet) 650 mg PO Q6H PRN PRN Reason: Headache/Pain Mild Scale (1-3) Al Hydroxide/Mg Hydroxide (Magnesium Hydrox/Alum Hydrox 30 Ml Oral.Susp) 30 ml PO Q6H PRN PRN Reason: Heartburn/Nausea Atorvastatin Calcium (Atorvastatin Calcium 40 Mg Tablet) 40 mg PO DAILY [facility] Last Admin: 06/20/24 08:45 Dose: 40 mg Cefuroxime Axetil (Cefuroxime Axetil 500 Mg Tablet) 500 mg PO Q12H [facility] Stop: 06/21/24 09:01 Last Admin: 06/20/24 08:44 Dose: 500 mg Clonazepam (Clonazepam 0.5 Mg Tablet) 0.5 mg PO TID [facility] Last Admin: 06/13/24 15:54 Dose: Not Given Clozapine (Clozapine 100 Mg Tablet) 100 mg PO BEDTIME [facility] Last Admin: 06/19/24 21:38 Dose: 100 mg Empagliflozin (Empagliflozin 25 Mg Tablet) 25 mg PO DAILY [facility] Last Admin: 06/20/24 08:46 Dose: 25 mg Fluticasone Propionate (Fluticasone Propionate Nasal 16 Gm [place]) 1 spray NOSTRIL-B DAILY [facility] Last Admin: 06/20/24 09:05 Dose: 1 spray Gabapentin (Gabapentin 400 Mg Capsule) 800 mg PO TID [facility] Last Admin: 06/20/24 08:44 Dose: 800 mg Hydroxyzine HCl (Hydroxyzine Hcl 25 Mg Tablet) 25 mg PO Q6H PRN PRN Reason: Anxiety Lorazepam (Lorazepam 1 Mg Tablet) 1 mg PO TID [facility] Last Admin: 06/20/24 08:44 Dose: 1 mg Magnesium Hydroxide (Milk Of Magnesia 30 Ml Oral.Susp) 30 ml PO DAILY PRN PRN Reason: Constipation Metformin HCl (Metformin Hcl 1,000 Mg Tablet) 1,000 mg PO BIDWM [facility] Last Admin: 06/20/24 08:46 Dose: 1,000 mg Metoprolol Succinate (Metoprolol Succinate Er 25 Mg Tab.Er.24h) 25 mg PO DAILY [facility]; Protocol Last Admin: 06/20/24 08:44 Dose: 25 mg Mirtazapine (Mirtazapine 15 Mg Tablet) 45 mg PO BEDTIME [facility] Last Admin: 06/19/24 21:05 Dose: 45 mg Nicotine Polacrilex (Nicotine Polacrilex 2 Mg Gum) 4 mg BUCCAL Q2H PRN PRN Reason: Nicotine Cravings Non-Formulary Medication (Dulaglutide [Trulicity]) 3 mg SUBCUT WE@0900 [facility] Olanzapine (Olanzapine 5 Mg Tablet) 5 mg PO Q4H PRN PRN Reason: agitation Trazodone HCl (Trazodone Hcl 50 Mg Tablet) 50 mg PO BEDTIME MRX1 PRN PRN Reason: Insomnia Allergies Allergies Allergy/AdvReac Type Severity Reaction Status Date / Time haloperidol [From Haldol] Allergy Intermediate Agitated Verified 06/12/24 14:39 lithium Allergy Intermediate Agitated Verified 04/22/24 21:45 oxcarbazepine Allergy Unknown RASH Verified 04/22/24 21:45 [From TRILEPTAL] fluphenazine [From Prolixin] Allergy akathisia Verified 04/22/24 21:45 Assessment & Plan Assessment & Plan (1) Schizoaffective disorder: Status: Acute Code(s): F25.9 - Schizoaffective disorder, unspecified Plan Patient is a 48 year old male with hx of schizoaffective disorder who was brought in via EMS and PD on a section 12 due to destroying his apartment, breaking objects on his head, and reporting suicidal ideation, stating he wanted to shoot himself. Plan: CV 5 minute safety checks Continue home medications encourage medication compliance hospitalist consult monitor labs obtain collateral Start: Ativan 2mg PO TID hold klonopin for now discharge planning 06/15: Active on unit. social with peers and staff. Showered. Pt reports feeling better than yesterday ; pt reports he had not taken his medications over the weekend. Pt stated, I wanted to take a break for a few days but I'm willing to start taking them again. I'll be compliant. I just hate having to come to the hospital once a month to get my blood drawn for the medication . Pt was educated regarding the importance of medication compliance. denies SI/HI/VH/AH. Pt placed on 15 minute safety checks. No tremors noted this morning. Continue current tx plan. 06/16: Active on unit. social with peers and staff. Pt reports feeling worried ; Pt stated, I'm worried if they won't let me go back to my apartment because I broke a lot of stuff and never acted like that before . denies SI/HI/VH/AH. Clozapine increased to 75mg PO bedtime. 06/17 much improved in terms of s/s of catatonia. continue tx 06/18 continue tx. 06/19: Pt reports feeling better than before ; reports sleeping okay. denies any issues at this time. denies SI/HI/VH/AH. Clozaril increased to 100mg PO bedtime; pt aware. 06/20: Pt reports feeling alright today; he is looking forward to returning home. denies SI/HI/VH/AH. Plan to discharge Wednesday; pt aware. Labs to be drawn tomorrow. Continue current tx plan. Patient educated on: diagnosis and medication risk/benefits Reason for continued inpatient stay Substantial Risk for: med/psych decompensation Time Spent With Patient Time: Total time managing care of this patient today _20___ minutes.
[2024-06-20 19:43] VITALS: BP 118/61; PULSE 104; RESP 16; TEMP 36.6; O2SAT 97
[2024-06-20] MEDS: Mirtazapine 15 MG TABLET 45 MG PO (20:53)
[2024-06-20] MEDS: cloZAPine 100 MG TABLET PO (20:54)
[2024-06-20 21:12] LABS: Glucose, Whole Blood 131 mg/dL (60-115)
[2024-06-21 07:25] VITALS: BP 113/57; PULSE 81; RESP 16; TEMP 36.5; O2SAT 97
[2024-06-21 07:53] LABS: Glucose, Whole Blood 99 mg/dL (60-115)
[2024-06-21 08:30] LABS: MANUAL DIFF FLAG NO
[2024-06-21 08:33] LABS: Basophils Absolute Auto 0.1 X10*3/uL (0.0-0.2); Basophils Percent Auto 1.1 % (0-2); Eosinophils Absolute Auto 0.2 X10*3/uL (0.0-0.4); Eosinophils Percent Auto 3.2 % (0-4); Hematocrit 47.7 % (42.0-52.0); Hemoglobin 15.6 g/dl (14.0-18.0); Imm Gran Abs Auto 0.02 X10*3/uL (0.00-0.03); Imm Gran Pct Auto 0.3 % (0.0-0.4); Lymphocytes Absolute Auto 2.5 X10*3/uL (1.2-4.9); Lymphocytes Percent Auto 38.6 % (20-40); Mean Corpuscular HGB Conc 32.7 g/dl (31.0-36.0); Mean Corpuscular Hemoglobin 27.8 pg (27.0-33.0); Mean Platelet Volume 9.7 fL (9.4-12.4); Monocytes Absolute Auto 0.6 X10*3/uL (0.1-1.2); Monocytes Percent Auto 8.5 % (2-11); Neutrophils Absolute Auto 3.2 x10*3/uL (2.0-8.3); Neutrophils Percent Auto 48.3 % (45-73); Platelet Count 251 X10*3/uL (160-400); Red Blood Count 5.61 X10*6/uL (4.60-5.80); Red Cell Distribution Width 13.5 % (11.0-16.0); White Blood Count 6.6 X10*3/uL (4.8-10.8)
[2024-06-21 08:41] LABS: Alanine Aminotransferase 22 U/L (0-40); Albumin Level 4.3 g/dL (3.5-5.0); Alkaline Phosphatase 118 U/L (39-117); Anion Gap 12 (12-20); Aspartate Amino Transferase 20 U/L (5-37); Bilirubin Direct 0.2 mg/dL (0.0-0.5); Bilirubin Total 0.5 mg/dL (0.0-1.0); Blood Urea Nitrogen 15 mg/dL (9-16); Calcium 9.4 mg/dL (8.4-10.2); Carbon Dioxide 29 mmol/L (22-29); Chloride 106 mmol/L (96-108); Estimated Glomerular Filt Rate > 60; Glucose Random 104 mg/dL (60-115); Potassium 4.4 mmol/L (3.3-5.1); Sodium 143 mmol/L (135-145); Total Protein 6.7 g/dL (6.5-8.0)
[2024-06-21] MEDS: cefuroxime axetiL 500 MG TABLET PO (08:51)
[2024-06-21 08:52] VITALS: BP 102/63; PULSE 93
[2024-06-21] MEDS: Gabapentin 400 MG CAPSULE 800 MG PO ×3 (08:52→21:30)
[2024-06-21] MEDS: Metoprolol Succinate ER 25 MG TAB.ER.24H PO (08:52)
[2024-06-21] MEDS: Empagliflozin 25 MG TABLET PO (08:54)
[2024-06-21] MEDS: Atorvastatin Calcium 40 MG TABLET PO (08:54)
[2024-06-21] MEDS: metFORMIN HCl 1,000 MG TABLET 1000 MG PO ×2 (08:54→17:25)
[2024-06-21] MEDS: LORazepam 1 MG TABLET PO (08:54)
[2024-06-21 09:06] LABS: Ammonia 28 umol/L (13-55)
--- NOTE | 2024-06-21 09:34 | HO.PSYCHPN ---
Subjective Subjective Date of Service: 06/21/24 Reason For Visit: crisis Subjective Notes: Conditional Voluntary Interim History: Active on unit. attending groups. Pt reports feeling okay today; Clozapine increased to 125mg PO bedtime. DC Ativan. Continue Klonopin 0.5mg PO TID. Plan for DC home Wednesday. Medication Compliance: Yes Side effects from medications: No Attending Groups: Yes Review of Systems Constitutional: Reports as per HPI Eyes: Reports as per HPI Reports as per HPI Cardiovascular: Reports as per HPI Respiratory: Reports as per HPI Gastrointestinal: Reports as per HPI Genitourinary: Reports as per HPI Musculoskeletal: Reports as per HPI Skin/Breast: Reports as per HPI Reports as per HPI Psychiatric: Reports as per HPI Endocrine: Reports as per HPI Hematologic/Lymphatic: Reports as per HPI Allergic/Immunologic: Reports as per HPI Mental Status Exam Mental Status Exam Narrative: Pt is alert and oriented; behavior is cooperative and calm; dressed in casual attire; mood is described as okay ; eye contact appropriate; Speech is normal rate, volume and not pressured; thought process is organized; Thought content is on tx; otherwise pertinent to relevant topics and without any delusional content, paranoid ideations or grandiosity; denies SI/HI/VH/AH. Diagnostics Vital Signs (24Hr): Vital Signs - 24 hr 06/20/24 19:43 06/21/24 07:25 06/21/24 08:52 Temperature 97.9 F 97.7 F Pulse Rate 104 H 81 93 Respiratory Rate 16 16 Blood Pressure 118/61 113/57 L 102/63 Pulse Oximetry 97 97 Oxygen Delivery Method Room Air Room Air BMI result Body Mass Index 27.4 Labs 06/21/24 08:17 06/21/24 08:12 Labs: Laboratory Results - last 48 hr 06/19/24 06/20/24 06/20/24 20:58 07:43 21:07 WBC RBC Hgb Hct MCV MCH MCHC RDW Plt Count MPV Immature Gran % (Auto) Neut % (Auto) Lymph % (Auto) [place] % (Auto) Eos % (Auto) Baso % (Auto) Lymph # (Auto) [place] # (Auto) Eos # (Auto) Baso # (Auto) Abs Immat Gran (auto) Absolute Neuts (auto) Absolute Nucleated RBC Nucleated RBC % (auto) Sodium Potassium Chloride Carbon Dioxide Anion Gap BUN Creatinine Estim Creat Clear Calc Estimated GFR POC Glucose 91 91 131 H Random Glucose Calcium Total Bilirubin Direct Bilirubin AST ALT Alkaline Phosphatase Ammonia Total Protein Albumin 06/21/24 06/21/24 06/21/24 07:46 08:12 08:17 WBC 6.6 RBC 5.61 Hgb 15.6 Hct 47.7 MCV 85.0 MCH 27.8 MCHC 32.7 RDW 13.5 Plt Count 251 MPV 9.7 Immature Gran % (Auto) 0.3 Neut % (Auto) 48.3 Lymph % (Auto) 38.6 [place] % (Auto) 8.5 Eos % (Auto) 3.2 Baso % (Auto) 1.1 Lymph # (Auto) 2.5 [place] # (Auto) 0.6 Eos # (Auto) 0.2 Baso # (Auto) 0.1 Abs Immat Gran (auto) 0.02 Absolute Neuts (auto) 3.2 Absolute Nucleated RBC 0.000 Nucleated RBC % (auto) 0.0 Sodium 143 Potassium 4.4 Chloride 106 Carbon Dioxide 29 Anion Gap 12 BUN 15 Creatinine 0.96 Estim Creat Clear Calc 92.0 Estimated GFR > 60 POC Glucose 99 Random Glucose 104 Calcium 9.4 Total Bilirubin 0.5 Direct Bilirubin 0.2 AST 20 ALT 22 Alkaline Phosphatase 118 H Ammonia 28 Total Protein 6.7 Albumin 4.3 Medications Medications Current Medications Acetaminophen (Acetaminophen 325 Mg Tablet) 650 mg PO Q6H PRN PRN Reason: Headache/Pain Mild Scale (1-3) Al Hydroxide/Mg Hydroxide (Magnesium Hydrox/Alum Hydrox 30 Ml Oral.Susp) 30 ml PO Q6H PRN PRN Reason: Heartburn/Nausea Atorvastatin Calcium (Atorvastatin Calcium 40 Mg Tablet) 40 mg PO DAILY [facility] Last Admin: 06/21/24 08:54 Dose: 40 mg Clonazepam (Clonazepam 0.5 Mg Tablet) 0.5 mg PO TID [facility] Last Admin: 06/13/24 15:54 Dose: Not Given Clozapine (Clozapine 100 Mg Tablet) 100 mg PO BEDTIME [facility] Last Admin: 06/20/24 20:54 Dose: 100 mg Empagliflozin (Empagliflozin 25 Mg Tablet) 25 mg PO DAILY [facility] Last Admin: 06/21/24 08:54 Dose: 25 mg Fluticasone Propionate (Fluticasone Propionate Nasal 16 Gm [place]) 1 spray NOSTRIL-B DAILY [facility] Last Admin: 06/20/24 09:05 Dose: 1 spray Gabapentin (Gabapentin 400 Mg Capsule) 800 mg PO TID [facility] Last Admin: 06/21/24 08:52 Dose: 800 mg Hydroxyzine HCl (Hydroxyzine Hcl 25 Mg Tablet) 25 mg PO Q6H PRN PRN Reason: Anxiety Lorazepam (Lorazepam 1 Mg Tablet) 1 mg PO BID [facility] Last Admin: 06/21/24 08:54 Dose: 1 mg Magnesium Hydroxide (Milk Of Magnesia 30 Ml Oral.Susp) 30 ml PO DAILY PRN PRN Reason: Constipation Metformin HCl (Metformin Hcl 1,000 Mg Tablet) 1,000 mg PO BIDWM [facility] Last Admin: 06/21/24 08:54 Dose: 1,000 mg Metoprolol Succinate (Metoprolol Succinate Er 25 Mg Tab.Er.24h) 25 mg PO DAILY [facility]; Protocol Last Admin: 06/21/24 08:52 Dose: 25 mg Mirtazapine (Mirtazapine 15 Mg Tablet) 45 mg PO BEDTIME [facility] Last Admin: 06/20/24 20:53 Dose: 45 mg Nicotine Polacrilex (Nicotine Polacrilex 2 Mg Gum) 4 mg BUCCAL Q2H PRN PRN Reason: Nicotine Cravings Pt Own (Dulaglutide [Trulicity] 3 Mg/0.5 Ml Pen Injector) 3 mg SUBCUT WE@0900 [facility] Olanzapine (Olanzapine 5 Mg Tablet) 5 mg PO Q4H PRN PRN Reason: agitation Trazodone HCl (Trazodone Hcl 50 Mg Tablet) 50 mg PO BEDTIME MRX1 PRN PRN Reason: Insomnia Allergies Allergies Allergy/AdvReac Type Severity Reaction Status Date / Time haloperidol [From Haldol] Allergy Intermediate Agitated Verified 06/12/24 14:39 lithium Allergy Intermediate Agitated Verified 04/22/24 21:45 oxcarbazepine Allergy Unknown RASH Verified 04/22/24 21:45 [From TRILEPTAL] fluphenazine [From Prolixin] Allergy akathisia Verified 04/22/24 21:45 Assessment & Plan Assessment & Plan (1) Schizoaffective disorder: Status: Acute Code(s): F25.9 - Schizoaffective disorder, unspecified Plan Patient is a 48 year old male with hx of schizoaffective disorder who was brought in via EMS and PD on a section 12 due to destroying his apartment, breaking objects on his head, and reporting suicidal ideation, stating he wanted to shoot himself. Plan: CV 5 minute safety checks Continue home medications encourage medication compliance hospitalist consult monitor labs obtain collateral Start: Ativan 2mg PO TID hold klonopin for now discharge planning 06/15: Active on unit. social with peers and staff. Showered. Pt reports feeling better than yesterday ; pt reports he had not taken his medications over the weekend. Pt stated, I wanted to take a break for a few days but I'm willing to start taking them again. I'll be compliant. I just hate having to come to the hospital once a month to get my blood drawn for the medication . Pt was educated regarding the importance of medication compliance. denies SI/HI/VH/AH. Pt placed on 15 minute safety checks. No tremors noted this morning. Continue current tx plan. 06/16: Active on unit. social with peers and staff. Pt reports feeling worried ; Pt stated, I'm worried if they won't let me go back to my apartment because I broke a lot of stuff and never acted like that before . denies SI/HI/VH/AH. Clozapine increased to 75mg PO bedtime. 06/17 much improved in terms of s/s of catatonia. continue tx 06/18 continue tx. 06/19: Pt reports feeling better than before ; reports sleeping okay. denies any issues at this time. denies SI/HI/VH/AH. Clozaril increased to 100mg PO bedtime; pt aware. 06/20: Pt reports feeling alright today; he is looking forward to returning home. denies SI/HI/VH/AH. Plan to discharge Wednesday; pt aware. Labs to be drawn tomorrow. Continue current tx plan. 06/21: Active on unit. attending groups. Pt reports feeling okay today; Clozapine increased to 125mg PO bedtime. DC Ativan. Continue Klonopin 0.5mg PO TID. Plan for DC home Wednesday. Patient educated on: diagnosis, medication risk/benefits and therapeutic strategies Reason for continued inpatient stay Substantial Risk for: med/psych decompensation Time Spent With Patient Time: Total time managing care of this patient today _20___ minutes.
[2024-06-21] MEDS: Fluticasone Propionate Nasal 16 GM SPRAY 1 SPRAY NOSTRIL-B (09:51)
[2024-06-21] MEDS: DULAGLUTIDE 3 MG/0.5 ML 3 EACH SUBCUT (11:17)
[2024-06-21] MEDS: clonazePAM 0.5 MG TABLET PO ×2 (15:26→21:31)
[2024-06-21 19:25] VITALS: BP 102/60; PULSE 99; RESP 16; TEMP 37.1; O2SAT 97
[2024-06-21 20:57] LABS: Glucose, Whole Blood 93 mg/dL (60-115)
[2024-06-21] MEDS: Mirtazapine 15 MG TABLET 45 MG PO (21:30)
[2024-06-21] MEDS: cloZAPine 25 MG TABLET 125 MG PO (21:30)
[2024-06-22 07:45] LABS: Glucose, Whole Blood 90 mg/dL (60-115)
[2024-06-22 08:00] VITALS: BP 116/66; PULSE 90; RESP 18; TEMP 36.9; O2SAT 98
[2024-06-22] MEDS: Gabapentin 400 MG CAPSULE 800 MG PO ×3 (08:15→22:02)
[2024-06-22] MEDS: Empagliflozin 25 MG TABLET PO (08:15)
[2024-06-22] MEDS: metFORMIN HCl 1,000 MG TABLET 1000 MG PO ×2 (08:15→18:12)
[2024-06-22] MEDS: Atorvastatin Calcium 40 MG TABLET PO (08:15)
[2024-06-22 08:16] VITALS: BP 116/66; PULSE 90
[2024-06-22] MEDS: Metoprolol Succinate ER 25 MG TAB.ER.24H PO (08:16)
[2024-06-22] MEDS: clonazePAM 0.5 MG TABLET PO ×3 (08:16→22:02)
--- NOTE | 2024-06-22 10:46 | P.PNPSI_ITS ---
Subjective Subjective Date of Service: 06/22/24 Reason For Visit: crisis Subjective Notes: Conditional Voluntary Interim History: Pt reports feeling good today; pt reports feeling ready to go home . denies SI/HI/VH/AH. per nursing, pt slept 8 hours last night. Pt reports he plans on following up with his outpatient providers and being medication compliant. Medication Compliance: Yes Side effects from medications: No Review of Systems Constitutional: Reports as per HPI Eyes: Reports as per HPI Reports as per HPI Cardiovascular: Reports as per HPI Respiratory: Reports as per HPI Gastrointestinal: Reports as per HPI Genitourinary: Reports as per HPI Musculoskeletal: Reports as per HPI Skin/Breast: Reports as per HPI Reports as per HPI Psychiatric: Reports as per HPI Endocrine: Reports as per HPI Hematologic/Lymphatic: Reports as per HPI Allergic/Immunologic: Reports as per HPI Mental Status Exam Mental Status Exam Narrative: Pt is alert and oriented; behavior is cooperative and calm; dressed in casual attire; mood is described as good ; eye contact appropriate; Speech is normal rate, volume and not pressured; thought process is organized; Thought content is on discharge; otherwise pertinent to relevant topics and without any delusional content, paranoid ideations or grandiosity; denies SI/HI/VH/AH. Diagnostics Vital Signs (24Hr): Vital Signs - 24 hr 06/21/24 19:25 06/22/24 08:00 06/22/24 08:16 Temperature 98.8 F 98.5 F Pulse Rate 99 90 90 Respiratory Rate 16 18 Blood Pressure 102/60 116/66 116/66 Pulse Oximetry 97 98 Oxygen Delivery Method Room Air Room Air BMI result Body Mass Index 27.4 Labs 06/21/24 08:17 06/21/24 08:12 Labs: Laboratory Results - last 48 hr 06/20/24 06/21/24 06/21/24 21:07 07:46 08:12 WBC RBC Hgb Hct MCV MCH MCHC RDW Plt Count MPV Immature Gran % (Auto) Neut % (Auto) Lymph % (Auto) [place] % (Auto) Eos % (Auto) Baso % (Auto) Lymph # (Auto) [place] # (Auto) Eos # (Auto) Baso # (Auto) Abs Immat Gran (auto) Absolute Neuts (auto) Absolute Nucleated RBC Nucleated RBC % (auto) Sodium 143 Potassium 4.4 Chloride 106 Carbon Dioxide 29 Anion Gap 12 BUN 15 Creatinine 0.96 Estim Creat Clear Calc 92.0 Estimated GFR > 60 POC Glucose 131 H 99 Random Glucose 104 Calcium 9.4 Total Bilirubin 0.5 Direct Bilirubin 0.2 AST 20 ALT 22 Alkaline Phosphatase 118 H Ammonia 28 Total Protein 6.7 Albumin 4.3 06/21/24 06/21/24 06/22/24 08:17 20:52 07:41 WBC 6.6 RBC 5.61 Hgb 15.6 Hct 47.7 MCV 85.0 MCH 27.8 MCHC 32.7 RDW 13.5 Plt Count 251 MPV 9.7 Immature Gran % (Auto) 0.3 Neut % (Auto) 48.3 Lymph % (Auto) 38.6 [place] % (Auto) 8.5 Eos % (Auto) 3.2 Baso % (Auto) 1.1 Lymph # (Auto) 2.5 [place] # (Auto) 0.6 Eos # (Auto) 0.2 Baso # (Auto) 0.1 Abs Immat Gran (auto) 0.02 Absolute Neuts (auto) 3.2 Absolute Nucleated RBC 0.000 Nucleated RBC % (auto) 0.0 Sodium Potassium Chloride Carbon Dioxide Anion Gap BUN Creatinine Estim Creat Clear Calc Estimated GFR POC Glucose 93 90 Random Glucose Calcium Total Bilirubin Direct Bilirubin AST ALT Alkaline Phosphatase Ammonia Total Protein Albumin Medications Medications Current Medications Acetaminophen (Acetaminophen 325 Mg Tablet) 650 mg PO Q6H PRN PRN Reason: Headache/Pain Mild Scale (1-3) Al Hydroxide/Mg Hydroxide (Magnesium Hydrox/Alum Hydrox 30 Ml Oral.Susp) 30 ml PO Q6H PRN PRN Reason: Heartburn/Nausea Atorvastatin Calcium (Atorvastatin Calcium 40 Mg Tablet) 40 mg PO DAILY [facility] Last Admin: 06/22/24 08:15 Dose: 40 mg Clonazepam (Clonazepam 0.5 Mg Tablet) 0.5 mg PO TID [facility] Last Admin: 06/22/24 08:16 Dose: 0.5 mg Clozapine (Clozapine 25 Mg Tablet) 125 mg PO BEDTIME [facility] Last Admin: 06/21/24 21:30 Dose: 125 mg Empagliflozin (Empagliflozin 25 Mg Tablet) 25 mg PO DAILY [facility] Last Admin: 06/22/24 08:15 Dose: 25 mg Fluticasone Propionate (Fluticasone Propionate Nasal 16 Gm [place]) 1 spray NOSTRIL-B DAILY [facility] Last Admin: 06/22/24 08:36 Dose: Not Given Gabapentin (Gabapentin 400 Mg Capsule) 800 mg PO TID [facility] Last Admin: 06/22/24 08:15 Dose: 800 mg Hydroxyzine HCl (Hydroxyzine Hcl 25 Mg Tablet) 25 mg PO Q6H PRN PRN Reason: Anxiety Magnesium Hydroxide (Milk Of Magnesia 30 Ml Oral.Susp) 30 ml PO DAILY PRN PRN Reason: Constipation Metformin HCl (Metformin Hcl 1,000 Mg Tablet) 1,000 mg PO BIDWM [facility] Last Admin: 06/22/24 08:15 Dose: 1,000 mg Metoprolol Succinate (Metoprolol Succinate Er 25 Mg Tab.Er.24h) 25 mg PO DAILY [facility]; Protocol Last Admin: 06/22/24 08:16 Dose: 25 mg Mirtazapine (Mirtazapine 15 Mg Tablet) 45 mg PO BEDTIME [facility] Last Admin: 06/21/24 21:30 Dose: 45 mg Nicotine Polacrilex (Nicotine Polacrilex 2 Mg Gum) 4 mg BUCCAL Q2H PRN PRN Reason: Nicotine Cravings Pt Own (Dulaglutide [Trulicity] 3 Mg/0.5 Ml Pen Injector) 3 mg SUBCUT WE@0900 [facility] Last Admin: 06/21/24 11:17 Dose: 3 mg Olanzapine (Olanzapine 5 Mg Tablet) 5 mg PO Q4H PRN PRN Reason: agitation Trazodone HCl (Trazodone Hcl 50 Mg Tablet) 50 mg PO BEDTIME MRX1 PRN PRN Reason: Insomnia Allergies Allergies Allergy/AdvReac Type Severity Reaction Status Date / Time haloperidol [From Haldol] Allergy Intermediate Agitated Verified 06/12/24 14:39 lithium Allergy Intermediate Agitated Verified 04/22/24 21:45 oxcarbazepine Allergy Unknown RASH Verified 04/22/24 21:45 [From TRILEPTAL] fluphenazine [From Prolixin] Allergy akathisia Verified 04/22/24 21:45 Assessment & Plan Assessment & Plan (1) Schizoaffective disorder: Status: Acute Code(s): F25.9 - Schizoaffective disorder, unspecified Plan Patient is a 48 year old male with hx of schizoaffective disorder who was brought in via EMS and PD on a section 12 due to destroying his apartment, breaking objects on his head, and reporting suicidal ideation, stating he wanted to shoot himself. Plan: CV 5 minute safety checks Continue home medications encourage medication compliance hospitalist consult monitor labs obtain collateral Start: Ativan 2mg PO TID hold klonopin for now discharge planning 06/15: Active on unit. social with peers and staff. Showered. Pt reports feeling better than yesterday ; pt reports he had not taken his medications over the weekend. Pt stated, I wanted to take a break for a few days but I'm willing to start taking them again. I'll be compliant. I just hate having to come to the hospital once a month to get my blood drawn for the medication . Pt was educated regarding the importance of medication compliance. denies SI/HI/VH/AH. Pt placed on 15 minute safety checks. No tremors noted this morning. Continue current tx plan. 06/16: Active on unit. social with peers and staff. Pt reports feeling worried ; Pt stated, I'm worried if they won't let me go back to my apartment because I broke a lot of stuff and never acted like that before . denies SI/HI/VH/AH. Clozapine increased to 75mg PO bedtime. 06/17 much improved in terms of s/s of catatonia. continue tx 06/18 continue tx. 06/19: Pt reports feeling better than before ; reports sleeping okay. denies any issues at this time. denies SI/HI/VH/AH. Clozaril increased to 100mg PO bedtime; pt aware. 06/20: Pt reports feeling alright today; he is looking forward to returning home. denies SI/HI/VH/AH. Plan to discharge Wednesday; pt aware. Labs to be drawn tomorrow. Continue current tx plan. 06/21: Active on unit. attending groups. Pt reports feeling okay today; Clozapine increased to 125mg PO bedtime. DC Ativan. Continue Klonopin 0.5mg PO TID. Plan for DC home Wednesday. 06/22: Pt reports feeling good today; pt reports feeling ready to go home . denies SI/HI/VH/AH. per nursing, pt slept 8 hours last night. Pt reports he plans on following up with his outpatient providers and being medication compliant. Patient educated on: diagnosis and medication risk/benefits Reason for continued inpatient stay Substantial Risk for: stable for discharge Time Spent With Patient Time: Total time managing care of this patient today _20___ minutes.
[2024-06-22 19:50] VITALS: BP 108/64; PULSE 100; RESP 18; TEMP 36.9; O2SAT 96
[2024-06-22 20:39] LABS: Glucose, Whole Blood 68 mg/dL (60-115)
[2024-06-22 21:22] LABS: Glucose, Whole Blood 79 mg/dL (60-115)
[2024-06-22] MEDS: Mirtazapine 15 MG TABLET 45 MG PO (22:02)
[2024-06-22] MEDS: cloZAPine 25 MG TABLET 125 MG PO (22:03)
[2024-06-22 22:10] LABS: Glucose, Whole Blood 103 mg/dL (60-115)
[2024-06-23 07:10] VITALS: BP 90/52; PULSE 54; RESP 14; TEMP 36.9; O2SAT 94
[2024-06-23 07:43] LABS: Glucose, Whole Blood 92 mg/dL (60-115)
[2024-06-23 08:17] VITALS: BP 116/71
[2024-06-23 08:18] VITALS: PULSE 119
[2024-06-23] MEDS: metFORMIN HCl 1,000 MG TABLET 1000 MG PO ×2 (08:18→16:14)
[2024-06-23] MEDS: Metoprolol Succinate ER 25 MG TAB.ER.24H PO (08:18)
[2024-06-23] MEDS: Empagliflozin 25 MG TABLET PO (08:18)
[2024-06-23] MEDS: Gabapentin 400 MG CAPSULE 800 MG PO ×3 (08:18→20:01)
[2024-06-23] MEDS: Atorvastatin Calcium 40 MG TABLET PO (08:19)
[2024-06-23] MEDS: clonazePAM 0.5 MG TABLET PO ×3 (08:19→20:01)
[2024-06-23] MEDS: Fluticasone Propionate Nasal 16 GM SPRAY 1 SPRAY NOSTRIL-B (08:21)
--- NOTE | 2024-06-23 14:35 | HO.PSYCHPN ---
Subjective Subjective Date of Service: 06/23/24 Reason For Visit: crisis Subjective Notes: Conditional Voluntary Interim History: Patient reported not feeling ready to go and needing a few more days ; pt reports he does not feel like himself yet. Pt requested to be discharged next week. Discharge canceled. Clozaril increased to 150mg PO bedtime. pt showered and encouraged to attend groups. Medication Compliance: Yes Side effects from medications: No Attending Groups: Intermittent Review of Systems Constitutional: Reports as per HPI Eyes: Reports as per HPI Reports as per HPI Cardiovascular: Reports as per HPI Respiratory: Reports as per HPI Gastrointestinal: Reports as per HPI Genitourinary: Reports as per HPI Musculoskeletal: Reports as per HPI Skin/Breast: Reports as per HPI Reports as per HPI Psychiatric: Reports as per HPI Endocrine: Reports as per HPI Hematologic/Lymphatic: Reports as per HPI Allergic/Immunologic: Reports as per HPI Mental Status Exam Mental Status Exam Narrative: Pt is alert and oriented; behavior is cooperative and calm; dressed in casual attire; mood is described as not good ; eye contact appropriate; Speech is normal rate, volume and not pressured; thought process is organized; Thought content is on discharge; otherwise pertinent to relevant topics and without any delusional content, paranoid ideations or grandiosity; denies SI/HI/VH/AH. Diagnostics Vital Signs (24Hr): Vital Signs - 24 hr 06/22/24 19:50 06/23/24 07:10 06/23/24 08:17 Temperature 98.4 F 98.4 F Pulse Rate 100 54 Respiratory Rate 18 14 Blood Pressure 108/64 90/52 L 116/71 Pulse Oximetry 96 94 Oxygen Delivery Method Room Air Room Air 06/23/24 08:18 Temperature Pulse Rate 119 H Respiratory Rate Blood Pressure Pulse Oximetry Oxygen Delivery Method BMI result Body Mass Index 27.4 Labs 06/21/24 08:17 06/21/24 08:12 Labs: Laboratory Results - last 48 hr 06/21/24 06/22/24 06/22/24 20:52 07:41 20:35 POC Glucose 93 90 68 06/22/24 06/22/24 06/23/24 21:15 22:01 07:34 POC Glucose 79 103 92 Medications Medications Current Medications Acetaminophen (Acetaminophen 325 Mg Tablet) 650 mg PO Q6H PRN PRN Reason: Headache/Pain Mild Scale (1-3) Al Hydroxide/Mg Hydroxide (Magnesium Hydrox/Alum Hydrox 30 Ml Oral.Susp) 30 ml PO Q6H PRN PRN Reason: Heartburn/Nausea Atorvastatin Calcium (Atorvastatin Calcium 40 Mg Tablet) 40 mg PO DAILY [facility] Last Admin: 06/23/24 08:19 Dose: 40 mg Clonazepam (Clonazepam 0.5 Mg Tablet) 0.5 mg PO TID [facility] Last Admin: 06/23/24 08:19 Dose: 0.5 mg Clozapine (Clozapine 100 Mg Tablet) 150 mg PO BEDTIME [facility] Empagliflozin (Empagliflozin 25 Mg Tablet) 25 mg PO DAILY [facility] Last Admin: 06/23/24 08:18 Dose: 25 mg Fluticasone Propionate (Fluticasone Propionate Nasal 16 Gm [place]) 1 spray NOSTRIL-B DAILY [facility] Last Admin: 06/23/24 08:21 Dose: 1 spray Gabapentin (Gabapentin 400 Mg Capsule) 800 mg PO TID [facility] Last Admin: 06/23/24 08:18 Dose: 800 mg Hydroxyzine HCl (Hydroxyzine Hcl 25 Mg Tablet) 25 mg PO Q6H PRN PRN Reason: Anxiety Magnesium Hydroxide (Milk Of Magnesia 30 Ml Oral.Susp) 30 ml PO DAILY PRN PRN Reason: Constipation Metformin HCl (Metformin Hcl 1,000 Mg Tablet) 1,000 mg PO BIDWM [facility] Last Admin: 06/23/24 08:18 Dose: 1,000 mg Metoprolol Succinate (Metoprolol Succinate Er 25 Mg Tab.Er.24h) 25 mg PO DAILY [facility]; Protocol Last Admin: 06/23/24 08:18 Dose: 25 mg Mirtazapine (Mirtazapine 15 Mg Tablet) 45 mg PO BEDTIME [facility] Last Admin: 06/22/24 22:02 Dose: 45 mg Nicotine Polacrilex (Nicotine Polacrilex 2 Mg Gum) 4 mg BUCCAL Q2H PRN PRN Reason: Nicotine Cravings Pt Own (Dulaglutide [Trulicity] 3 Mg/0.5 Ml Pen Injector) 3 mg SUBCUT WE@0900 [facility] Last Admin: 06/21/24 11:17 Dose: 3 mg Olanzapine (Olanzapine 5 Mg Tablet) 5 mg PO Q4H PRN PRN Reason: agitation Trazodone HCl (Trazodone Hcl 50 Mg Tablet) 50 mg PO BEDTIME MRX1 PRN PRN Reason: Insomnia Allergies Allergies Allergy/AdvReac Type Severity Reaction Status Date / Time haloperidol [From Haldol] Allergy Intermediate Agitated Verified 06/12/24 14:39 lithium Allergy Intermediate Agitated Verified 04/22/24 21:45 oxcarbazepine Allergy Unknown RASH Verified 04/22/24 21:45 [From TRILEPTAL] fluphenazine [From Prolixin] Allergy akathisia Verified 04/22/24 21:45 Assessment & Plan Assessment & Plan (1) Schizoaffective disorder: Status: Acute Code(s): F25.9 - Schizoaffective disorder, unspecified Plan Patient is a 48 year old male with hx of schizoaffective disorder who was brought in via EMS and PD on a section 12 due to destroying his apartment, breaking objects on his head, and reporting suicidal ideation, stating he wanted to shoot himself. Plan: CV 5 minute safety checks Continue home medications encourage medication compliance hospitalist consult monitor labs obtain collateral Start: Ativan 2mg PO TID hold klonopin for now discharge planning 06/15: Active on unit. social with peers and staff. Showered. Pt reports feeling better than yesterday ; pt reports he had not taken his medications over the weekend. Pt stated, I wanted to take a break for a few days but I'm willing to start taking them again. I'll be compliant. I just hate having to come to the hospital once a month to get my blood drawn for the medication . Pt was educated regarding the importance of medication compliance. denies SI/HI/VH/AH. Pt placed on 15 minute safety checks. No tremors noted this morning. Continue current tx plan. 06/16: Active on unit. social with peers and staff. Pt reports feeling worried ; Pt stated, I'm worried if they won't let me go back to my apartment because I broke a lot of stuff and never acted like that before . denies SI/HI/VH/AH. Clozapine increased to 75mg PO bedtime. 06/17 much improved in terms of s/s of catatonia. continue tx 06/18 continue tx. 06/19: Pt reports feeling better than before ; reports sleeping okay. denies any issues at this time. denies SI/HI/VH/AH. Clozaril increased to 100mg PO bedtime; pt aware. 06/20: Pt reports feeling alright today; he is looking forward to returning home. denies SI/HI/VH/AH. Plan to discharge Wednesday; pt aware. Labs to be drawn tomorrow. Continue current tx plan. 06/21: Active on unit. attending groups. Pt reports feeling okay today; Clozapine increased to 125mg PO bedtime. DC Ativan. Continue Klonopin 0.5mg PO TID. Plan for DC home Wednesday. 06/22: Pt reports feeling good today; pt reports feeling ready to go home . denies SI/HI/VH/AH. per nursing, pt slept 8 hours last night. Pt reports he plans on following up with his outpatient providers and being medication compliant. 06/23: Patient reported not feeling ready to go and needing a few more days ; pt reports he does not feel like himself yet. Pt requested to be discharged next week. Discharge canceled. Clozaril increased to 150mg PO bedtime. pt showered and encouraged to attend groups. Patient educated on: diagnosis, medication risk/benefits and therapeutic strategies Informed Consent: understands Reason for continued inpatient stay Substantial Risk for: med/psych decompensation Time Spent With Patient Time: Total time managing care of this patient today _20___ minutes.
[2024-06-23 18:00] VITALS: BP 118/73; PULSE 103; RESP 18; TEMP 36.8; O2SAT 97
[2024-06-23] MEDS: Mirtazapine 15 MG TABLET 45 MG PO (20:01)
[2024-06-23] MEDS: cloZAPine 100 MG TABLET 150 MG PO (20:01)
[2024-06-23 20:56] LABS: Glucose, Whole Blood 102 mg/dL (60-115)
[2024-06-24 07:25] VITALS: BP 102/63; PULSE 91; RESP 14; TEMP 36.6; O2SAT 94
[2024-06-24 07:51] LABS: Glucose, Whole Blood 99 mg/dL (60-115)
--- NOTE | 2024-06-24 08:01 | HO.PSYCHPN ---
Subjective Subjective Date of Service: 06/24/24 Reason For Visit: crisis Subjective Notes: Conditional Voluntary Medical Problems Affecting Mental Status: No Interim History: Patient reported feeling supported and close to being ready for discharge after the weekend. Sleep energy and appetite fair. No med concerns. Brighter overall as per nursing. Medication Compliance: Yes Side effects from medications: No Attending Groups: No Review of Systems Acute medical concerns: No Review of Systems Review of Systems unremarkable Mental Status Exam Mental Status Exam Narrative: Pt is alert and oriented; behavior is cooperative and calm; dressed in casual attire; mood is described as better ; eye contact appropriate; Speech is normal rate, volume and not pressured; thought process is organized; Thought content is on discharge; otherwise pertinent to relevant topics and without any delusional content, paranoid ideations or grandiosity; denies SI/HI/VH/AH. Diagnostics Vital Signs (24Hr): Vital Signs - 24 hr 06/23/24 08:17 06/23/24 08:18 06/23/24 18:00 Temperature 98.2 F Pulse Rate 119 H 103 H Respiratory Rate 18 Blood Pressure 116/71 118/73 Pulse Oximetry 97 Oxygen Delivery Method Room Air BMI result Body Mass Index 27.4 Labs 06/21/24 08:17 06/21/24 08:12 Labs: Laboratory Results - last 48 hr 06/22/24 06/22/24 06/22/24 20:35 21:15 22:01 POC Glucose 68 79 103 06/23/24 06/23/24 06/24/24 07:34 20:53 07:40 POC Glucose 92 102 99 Medications Medications Current Medications Acetaminophen (Acetaminophen 325 Mg Tablet) 650 mg PO Q6H PRN PRN Reason: Headache/Pain Mild Scale (1-3) Al Hydroxide/Mg Hydroxide (Magnesium Hydrox/Alum Hydrox 30 Ml Oral.Susp) 30 ml PO Q6H PRN PRN Reason: Heartburn/Nausea Atorvastatin Calcium (Atorvastatin Calcium 40 Mg Tablet) 40 mg PO DAILY [facility] Last Admin: 06/23/24 08:19 Dose: 40 mg Clonazepam (Clonazepam 0.5 Mg Tablet) 0.5 mg PO TID [facility] Last Admin: 06/23/24 20:01 Dose: 0.5 mg Clozapine (Clozapine 100 Mg Tablet) 150 mg PO BEDTIME [facility] Last Admin: 06/23/24 20:01 Dose: 150 mg Empagliflozin (Empagliflozin 25 Mg Tablet) 25 mg PO DAILY [facility] Last Admin: 06/23/24 08:18 Dose: 25 mg Fluticasone Propionate (Fluticasone Propionate Nasal 16 Gm [place]) 1 spray NOSTRIL-B DAILY [facility] Last Admin: 06/23/24 08:21 Dose: 1 spray Gabapentin (Gabapentin 400 Mg Capsule) 800 mg PO TID [facility] Last Admin: 06/23/24 20:01 Dose: 800 mg Hydroxyzine HCl (Hydroxyzine Hcl 25 Mg Tablet) 25 mg PO Q6H PRN PRN Reason: Anxiety Magnesium Hydroxide (Milk Of Magnesia 30 Ml Oral.Susp) 30 ml PO DAILY PRN PRN Reason: Constipation Metformin HCl (Metformin Hcl 1,000 Mg Tablet) 1,000 mg PO BIDWM [facility] Last Admin: 06/23/24 16:14 Dose: 1,000 mg Metoprolol Succinate (Metoprolol Succinate Er 25 Mg Tab.Er.24h) 25 mg PO DAILY [facility]; Protocol Last Admin: 06/23/24 08:18 Dose: 25 mg Mirtazapine (Mirtazapine 15 Mg Tablet) 45 mg PO BEDTIME [facility] Last Admin: 06/23/24 20:01 Dose: 45 mg Nicotine Polacrilex (Nicotine Polacrilex 2 Mg Gum) 4 mg BUCCAL Q2H PRN PRN Reason: Nicotine Cravings Pt Own (Dulaglutide [Trulicity] 3 Mg/0.5 Ml Pen Injector) 3 mg SUBCUT WE@0900 [facility] Last Admin: 06/21/24 11:17 Dose: 3 mg Olanzapine (Olanzapine 5 Mg Tablet) 5 mg PO Q4H PRN PRN Reason: agitation Trazodone HCl (Trazodone Hcl 50 Mg Tablet) 50 mg PO BEDTIME MRX1 PRN PRN Reason: Insomnia Allergies Allergies Allergy/AdvReac Type Severity Reaction Status Date / Time haloperidol [From Haldol] Allergy Intermediate Agitated Verified 06/12/24 14:39 lithium Allergy Intermediate Agitated Verified 04/22/24 21:45 oxcarbazepine Allergy Unknown RASH Verified 04/22/24 21:45 [From TRILEPTAL] fluphenazine [From Prolixin] Allergy akathisia Verified 04/22/24 21:45 Assessment & Plan Assessment & Plan (1) Schizoaffective disorder: Status: Acute Code(s): F25.9 - Schizoaffective disorder, unspecified Plan Patient is a 48 year old male with hx of schizoaffective disorder who was brought in via EMS and PD on a section 12 due to destroying his apartment, breaking objects on his head, and reporting suicidal ideation, stating he wanted to shoot himself. Plan: CV 5 minute safety checks Continue home medications encourage medication compliance hospitalist consult monitor labs obtain collateral Start: Ativan 2mg PO TID hold klonopin for now discharge planning 06/15: Active on unit. social with peers and staff. Showered. Pt reports feeling better than yesterday ; pt reports he had not taken his medications over the weekend. Pt stated, I wanted to take a break for a few days but I'm willing to start taking them again. I'll be compliant. I just hate having to come to the hospital once a month to get my blood drawn for the medication . Pt was educated regarding the importance of medication compliance. denies SI/HI/VH/AH. Pt placed on 15 minute safety checks. No tremors noted this morning. Continue current tx plan. 06/16: Active on unit. social with peers and staff. Pt reports feeling worried ; Pt stated, I'm worried if they won't let me go back to my apartment because I broke a lot of stuff and never acted like that before . denies SI/HI/VH/AH. Clozapine increased to 75mg PO bedtime. 06/17 much improved in terms of s/s of catatonia. continue tx 06/18 continue tx. 06/19: Pt reports feeling better than before ; reports sleeping okay. denies any issues at this time. denies SI/HI/VH/AH. Clozaril increased to 100mg PO bedtime; pt aware. 06/20: Pt reports feeling alright today; he is looking forward to returning home. denies SI/HI/VH/AH. Plan to discharge Wednesday; pt aware. Labs to be drawn tomorrow. Continue current tx plan. 06/21: Active on unit. attending groups. Pt reports feeling okay today; Clozapine increased to 125mg PO bedtime. DC Ativan. Continue Klonopin 0.5mg PO TID. Plan for DC home Wednesday. 06/22: Pt reports feeling good today; pt reports feeling ready to go home . denies SI/HI/VH/AH. per nursing, pt slept 8 hours last night. Pt reports he plans on following up with his outpatient providers and being medication compliant. 06/23: Patient reported not feeling ready to go and needing a few more days ; pt reports he does not feel like himself yet. Pt requested to be discharged next week. Discharge canceled. Clozaril increased to 150mg PO bedtime. pt showered and encouraged to attend groups. 06/24: no changes Reason for continued inpatient stay Substantial Risk for: rapid decompensation Time Spent With Patient Time: Total time managing care of this patient today ____ minutes.
[2024-06-24 09:14] VITALS: BP 106/69; PULSE 95
[2024-06-24] MEDS: Metoprolol Succinate ER 25 MG TAB.ER.24H PO (09:14)
[2024-06-24] MEDS: clonazePAM 0.5 MG TABLET PO ×3 (09:16→20:40)
[2024-06-24] MEDS: Atorvastatin Calcium 40 MG TABLET PO (09:16)
[2024-06-24] MEDS: Gabapentin 400 MG CAPSULE 800 MG PO ×3 (09:16→20:40)
[2024-06-24] MEDS: Empagliflozin 25 MG TABLET PO (09:16)
[2024-06-24] MEDS: metFORMIN HCl 1,000 MG TABLET 1000 MG PO ×2 (09:16→16:46)
[2024-06-24] MEDS: Fluticasone Propionate Nasal 16 GM SPRAY 1 SPRAY NOSTRIL-B (09:34)
[2024-06-24] MEDS: Milk of Magnesia 30 ML ORAL.SUSP PO (09:34)
[2024-06-24 20:00] VITALS: BP 113/62; PULSE 105; RESP 16; TEMP 36.5; O2SAT 99
[2024-06-24] MEDS: cloZAPine 100 MG TABLET 150 MG PO (20:40)
[2024-06-24] MEDS: Mirtazapine 15 MG TABLET 45 MG PO (20:40)
[2024-06-25 07:36] LABS: Glucose, Whole Blood 92 mg/dL (60-115)
[2024-06-25 07:41] VITALS: BP 109/66; PULSE 82; RESP 16; TEMP 36.6; O2SAT 96
[2024-06-25 08:44] VITALS: BP 109/66; PULSE 82
[2024-06-25] MEDS: clonazePAM 0.5 MG TABLET PO ×3 (08:44→21:43)
[2024-06-25] MEDS: Atorvastatin Calcium 40 MG TABLET PO (08:44)
[2024-06-25] MEDS: metFORMIN HCl 1,000 MG TABLET 1000 MG PO ×2 (08:44→17:05)
[2024-06-25] MEDS: Empagliflozin 25 MG TABLET PO (08:44)
[2024-06-25] MEDS: Gabapentin 400 MG CAPSULE 800 MG PO ×3 (08:44→21:43)
[2024-06-25] MEDS: Metoprolol Succinate ER 25 MG TAB.ER.24H PO (08:44)
[2024-06-25] MEDS: Fluticasone Propionate Nasal 16 GM SPRAY 1 SPRAY NOSTRIL-B (08:49)
--- NOTE | 2024-06-25 10:24 | P.PNPSI_ITS ---
Subjective Subjective Date of Service: 06/25/24 Reason For Visit: crisis Interim History: Patient reported feeling supported and being ready for discharge tomorrow. Sleep energy and appetite good No med concerns. Brighter overall. Medication Compliance: Yes Side effects from medications: No Attending Groups: No Review of Systems Acute medical concerns: No Review of Systems Review of Systems unremarkable Mental Status Exam Mental Status Exam Narrative: Pt is alert and oriented; behavior is cooperative and calm; dressed in casual attire; mood is described as better ; eye contact appropriate; Speech is normal rate, volume and not pressured; thought process is organized; Thought content is on discharge; otherwise pertinent to relevant topics and without any delusional content, paranoid ideations or grandiosity; denies SI/HI/VH/AH. Diagnostics Vital Signs (24Hr): Vital Signs - 24 hr 06/24/24 20:00 06/25/24 07:41 06/25/24 08:44 Temperature 97.7 F 97.9 F Pulse Rate 105 H 82 82 Respiratory Rate 16 16 Blood Pressure 113/62 109/66 109/66 Pulse Oximetry 99 96 Oxygen Delivery Method Room Air Room Air BMI result Body Mass Index 27.4 Labs 06/21/24 08:17 06/21/24 08:12 Labs: Laboratory Results - last 48 hr 06/23/24 06/24/24 06/25/24 20:53 07:40 07:25 POC Glucose 102 99 92 Medications Medications Current Medications Acetaminophen (Acetaminophen 325 Mg Tablet) 650 mg PO Q6H PRN PRN Reason: Headache/Pain Mild Scale (1-3) Al Hydroxide/Mg Hydroxide (Magnesium Hydrox/Alum Hydrox 30 Ml Oral.Susp) 30 ml PO Q6H PRN PRN Reason: Heartburn/Nausea Atorvastatin Calcium (Atorvastatin Calcium 40 Mg Tablet) 40 mg PO DAILY [facility] Last Admin: 06/25/24 08:44 Dose: 40 mg Clonazepam (Clonazepam 0.5 Mg Tablet) 0.5 mg PO TID [facility] Last Admin: 06/25/24 08:44 Dose: 0.5 mg Clozapine (Clozapine 100 Mg Tablet) 150 mg PO BEDTIME [facility] Last Admin: 06/24/24 20:40 Dose: 150 mg Empagliflozin (Empagliflozin 25 Mg Tablet) 25 mg PO DAILY [facility] Last Admin: 06/25/24 08:44 Dose: 25 mg Fluticasone Propionate (Fluticasone Propionate Nasal 16 Gm [place]) 1 spray NOSTRIL-B DAILY [facility] Last Admin: 06/25/24 08:49 Dose: 1 spray Gabapentin (Gabapentin 400 Mg Capsule) 800 mg PO TID [facility] Last Admin: 06/25/24 08:44 Dose: 800 mg Hydroxyzine HCl (Hydroxyzine Hcl 25 Mg Tablet) 25 mg PO Q6H PRN PRN Reason: Anxiety Magnesium Hydroxide (Milk Of Magnesia 30 Ml Oral.Susp) 30 ml PO DAILY PRN PRN Reason: Constipation Last Admin: 06/24/24 09:34 Dose: 30 ml Metformin HCl (Metformin Hcl 1,000 Mg Tablet) 1,000 mg PO BIDWM [facility] Last Admin: 06/25/24 08:44 Dose: 1,000 mg Metoprolol Succinate (Metoprolol Succinate Er 25 Mg Tab.Er.24h) 25 mg PO DAILY [facility]; Protocol Last Admin: 06/25/24 08:44 Dose: 25 mg Mirtazapine (Mirtazapine 15 Mg Tablet) 45 mg PO BEDTIME [facility] Last Admin: 06/24/24 20:40 Dose: 45 mg Nicotine Polacrilex (Nicotine Polacrilex 2 Mg Gum) 4 mg BUCCAL Q2H PRN PRN Reason: Nicotine Cravings Pt Own (Dulaglutide [Trulicity] 3 Mg/0.5 Ml Pen Injector) 3 mg SUBCUT WE@0900 [facility] Last Admin: 06/21/24 11:17 Dose: 3 mg Olanzapine (Olanzapine 5 Mg Tablet) 5 mg PO Q4H PRN PRN Reason: agitation Trazodone HCl (Trazodone Hcl 50 Mg Tablet) 50 mg PO BEDTIME MRX1 PRN PRN Reason: Insomnia Allergies Allergies Allergy/AdvReac Type Severity Reaction Status Date / Time haloperidol [From Haldol] Allergy Intermediate Agitated Verified 06/12/24 14:39 lithium Allergy Intermediate Agitated Verified 04/22/24 21:45 oxcarbazepine Allergy Unknown RASH Verified 04/22/24 21:45 [From TRILEPTAL] fluphenazine [From Prolixin] Allergy akathisia Verified 04/22/24 21:45 Assessment & Plan Assessment & Plan (1) Schizoaffective disorder: Status: Acute Code(s): F25.9 - Schizoaffective disorder, unspecified Plan Patient is a 48 year old male with hx of schizoaffective disorder who was brought in via EMS and PD on a section 12 due to destroying his apartment, breaking objects on his head, and reporting suicidal ideation, stating he wanted to shoot himself. Plan: CV 5 minute safety checks Continue home medications encourage medication compliance hospitalist consult monitor labs obtain collateral Start: Ativan 2mg PO TID hold klonopin for now discharge planning 06/15: Active on unit. social with peers and staff. Showered. Pt reports feeling better than yesterday ; pt reports he had not taken his medications over the weekend. Pt stated, I wanted to take a break for a few days but I'm willing to start taking them again. I'll be compliant. I just hate having to come to the hospital once a month to get my blood drawn for the medication . Pt was educated regarding the importance of medication compliance. denies SI/HI/VH/AH. Pt placed on 15 minute safety checks. No tremors noted this morning. Continue current tx plan. 06/16: Active on unit. social with peers and staff. Pt reports feeling worried ; Pt stated, I'm worried if they won't let me go back to my apartment because I broke a lot of stuff and never acted like that before . denies SI/HI/VH/AH. Clozapine increased to 75mg PO bedtime. 06/17 much improved in terms of s/s of catatonia. continue tx 06/18 continue tx. 06/19: Pt reports feeling better than before ; reports sleeping okay. denies any issues at this time. denies SI/HI/VH/AH. Clozaril increased to 100mg PO bedtime; pt aware. 06/20: Pt reports feeling alright today; he is looking forward to returning home. denies SI/HI/VH/AH. Plan to discharge Wednesday; pt aware. Labs to be drawn tomorrow. Continue current tx plan. 06/21: Active on unit. attending groups. Pt reports feeling okay today; Clozapine increased to 125mg PO bedtime. DC Ativan. Continue Klonopin 0.5mg PO TID. Plan for DC home Wednesday. 06/22: Pt reports feeling good today; pt reports feeling ready to go home . denies SI/HI/VH/AH. per nursing, pt slept 8 hours last night. Pt reports he plans on following up with his outpatient providers and being medication compliant. 06/23: Patient reported not feeling ready to go and needing a few more days ; pt reports he does not feel like himself yet. Pt requested to be discharged next week. Discharge canceled. Clozaril increased to 150mg PO bedtime. pt showered and encouraged to attend groups. 06/25: no changes Reason for continued inpatient stay Substantial Risk for: rapid decompensation Time Spent With Patient Time: Total time managing care of this patient today ____ minutes.
[2024-06-25 19:36] VITALS: BP 101/66; PULSE 105; RESP 16; TEMP 36.6; O2SAT 98
[2024-06-25 21:12] LABS: Glucose, Whole Blood 111 mg/dL (60-115)
[2024-06-25] MEDS: Mirtazapine 15 MG TABLET 45 MG PO (21:43)
[2024-06-25] MEDS: cloZAPine 100 MG TABLET 150 MG PO (21:43)
[2024-06-26 07:35] VITALS: BP 112/64; PULSE 83; RESP 14; TEMP 36.4; O2SAT 96
[2024-06-26 07:45] LABS: Glucose, Whole Blood 92 mg/dL (60-115)
[2024-06-26 08:08] VITALS: BP 112/64; PULSE 83
[2024-06-26] MEDS: Gabapentin 400 MG CAPSULE 800 MG PO (08:08)
[2024-06-26] MEDS: Metoprolol Succinate ER 25 MG TAB.ER.24H PO (08:08)
[2024-06-26] MEDS: Atorvastatin Calcium 40 MG TABLET PO (08:09)
[2024-06-26] MEDS: clonazePAM 0.5 MG TABLET PO (08:09)
[2024-06-26] MEDS: Empagliflozin 25 MG TABLET PO (08:09)
[2024-06-26] MEDS: metFORMIN HCl 1,000 MG TABLET 1000 MG PO (08:09)
[2024-06-26] MEDS: Fluticasone Propionate Nasal 16 GM SPRAY 1 SPRAY NOSTRIL-B (08:11)
--- NOTE | 2024-06-26 09:59 | PM.PSYDC ---
DS: Providers Provider Date of Service: 06/26/24 Date of admission: 06/13/24 12:59 Date of discharge: 06/26/24 Primary care physician: Jess Paris MD Admitting clinician: Joyce Hernandez Attending physician on admission: Dwayne De La Rosa Consults: 06/13/24 16:52 Consult to Hospitalist Stat Comment: Consulting Provider: Hospitalist Reason For Exam: ? seizure vs catatonia Attending physician on discharge: Dwayne De La Rosa Discharging clinician: Joyce Hernandez DS: Diagnosis Discharge Diagnosis (1) Schizoaffective disorder: Status: Acute DS: Medications Discharge Medications Home Medications: Home Medications ?Medication ?Instructions ?Recorded ?Confirmed lancets 28 gauge (FreeStyle 07/22/20 02/10/24 Lancets) dulaglutide 3 mg/0.5 mL 3 mg subcut WE@0900 09/23/23 06/13/24 subcutaneous pen injector (Trulicity) empagliflozin 25 mg tablet 25 mg PO DAILY 09/23/23 06/13/24 (Jardiance) mirtazapine 45 mg tablet 45 mg PO BEDTIME 06/13/24 06/13/24 Previous Rx's ?Medication ?Instructions ?Recorded atorvastatin 40 mg tablet 40 mg PO DAILY #30 tabs 02/23/24 clonazepam 0.5 mg tablet 0.5 mg PO TID #90 tabs 02/23/24 gabapentin 400 mg capsule 800 mg (2 x 400 mg) PO TID #90 caps 02/23/24 metformin 1,000 mg tablet 1,000 mg PO BID #60 tabs 02/23/24 metoprolol succinate 25 mg 25 mg PO DAILY #30 tabs 02/23/24 tablet,extended release 24 hr triamcinolone acetonide 0.1 % 1 appl topical DAILY #15 grams 02/23/24 topical cream clozapine 100 mg tablet 150 mg (1.5 x 100 mg) PO BEDTIME 7 06/26/24 days #11 tabs Mental Status Exam Mental Status Exam Narrative: Pt is alert and oriented; behavior is cooperative and calm; dressed in casual attire; mood is described as good ; eye contact appropriate; Speech is normal rate, volume and not pressured; thought process is organized; Thought content is on discharge; denies SI/HI/VH/AH. Data Data Completed and Pending Completed studies during hospitalization [Text1]: 10/28/24 10/29/24 10/29/24 20:58 07:43 21:07 WBC RBC Hgb Hct MCV MCH MCHC RDW Plt Count MPV Immature Gran % (Auto) Neut % (Auto) Lymph % (Auto) Robeson % (Auto) Eos % (Auto) Baso % (Auto) Lymph # (Auto) Robeson # (Auto) Eos # (Auto) Baso # (Auto) Abs Immat Gran (auto) Absolute Neuts (auto) Absolute Nucleated RBC Nucleated RBC % (auto) Sodium Potassium Chloride Carbon Dioxide Anion Gap BUN Creatinine Estim Creat Clear Calc Estimated GFR POC Glucose 91 91 131 H Random Glucose Calcium Total Bilirubin Direct Bilirubin AST ALT Alkaline Phosphatase Ammonia Total Protein Albumin 06/21/24 06/21/24 06/21/24 07:46 08:12 08:17 WBC 6.6 RBC 5.61 Hgb 15.6 Hct 47.7 MCV 85.0 MCH 27.8 MCHC 32.7 RDW 13.5 Plt Count 251 MPV 9.7 Immature Gran % (Auto) 0.3 Neut % (Auto) 48.3 Lymph % (Auto) 38.6 Robeson % (Auto) 8.5 Eos % (Auto) 3.2 Baso % (Auto) 1.1 Lymph # (Auto) 2.5 Robeson # (Auto) 0.6 Eos # (Auto) 0.2 Baso # (Auto) 0.1 Abs Immat Gran (auto) 0.02 Absolute Neuts (auto) 3.2 Absolute Nucleated RBC 0.000 Nucleated RBC % (auto) 0.0 Sodium 143 Potassium 4.4 Chloride 106 Carbon Dioxide 29 Anion Gap 12 BUN 15 Creatinine 0.96 Estim Creat Clear Calc 92.0 Estimated GFR > 60 POC Glucose 99 Random Glucose 104 Calcium 9.4 Total Bilirubin 0.5 Direct Bilirubin 0.2 AST 20 ALT 22 Alkaline Phosphatase 118 H Ammonia 28 Total Protein 6.7 Albumin 4.3 06/21/24 06/22/24 06/22/24 20:52 07:41 20:35 WBC RBC Hgb Hct MCV MCH MCHC RDW Plt Count MPV Immature Gran % (Auto) Neut % (Auto) Lymph % (Auto) Robeson % (Auto) Eos % (Auto) Baso % (Auto) Lymph # (Auto) Robeson # (Auto) Eos # (Auto) Baso # (Auto) Abs Immat Gran (auto) Absolute Neuts (auto) Absolute Nucleated RBC Nucleated RBC % (auto) Sodium Potassium Chloride Carbon Dioxide Anion Gap BUN Creatinine Estim Creat Clear Calc Estimated GFR POC Glucose 93 90 68 Random Glucose Calcium Total Bilirubin Direct Bilirubin AST ALT Alkaline Phosphatase Ammonia Total Protein Albumin 06/22/24 06/22/24 06/23/24 21:15 22:01 07:34 WBC RBC Hgb Hct MCV MCH MCHC RDW Plt Count MPV Immature Gran % (Auto) Neut % (Auto) Lymph % (Auto) Robeson % (Auto) Eos % (Auto) Baso % (Auto) Lymph # (Auto) Robeson # (Auto) Eos # (Auto) Baso # (Auto) Abs Immat Gran (auto) Absolute Neuts (auto) Absolute Nucleated RBC Nucleated RBC % (auto) Sodium Potassium Chloride Carbon Dioxide Anion Gap BUN Creatinine Estim Creat Clear Calc Estimated GFR POC Glucose 79 103 92 Random Glucose Calcium Total Bilirubin Direct Bilirubin AST ALT Alkaline Phosphatase Ammonia Total Protein Albumin 06/23/24 06/24/24 06/25/24 20:53 07:40 07:25 WBC RBC Hgb Hct MCV MCH MCHC RDW Plt Count MPV Immature Gran % (Auto) Neut % (Auto) Lymph % (Auto) Robeson % (Auto) Eos % (Auto) Baso % (Auto) Lymph # (Auto) Robeson # (Auto) Eos # (Auto) Baso # (Auto) Abs Immat Gran (auto) Absolute Neuts (auto) Absolute Nucleated RBC Nucleated RBC % (auto) Sodium Potassium Chloride Carbon Dioxide Anion Gap BUN Creatinine Estim Creat Clear Calc Estimated GFR POC Glucose 102 99 92 Random Glucose Calcium Total Bilirubin Direct Bilirubin AST ALT Alkaline Phosphatase Ammonia Total Protein Albumin 06/25/24 06/26/24 21:08 07:40 WBC RBC Hgb Hct MCV MCH MCHC RDW Plt Count MPV Immature Gran % (Auto) Neut % (Auto) Lymph % (Auto) Robeson % (Auto) Eos % (Auto) Baso % (Auto) Lymph # (Auto) Robeson # (Auto) Eos # (Auto) Baso # (Auto) Abs Immat Gran (auto) Absolute Neuts (auto) Absolute Nucleated RBC Nucleated RBC % (auto) Sodium Potassium Chloride Carbon Dioxide Anion Gap BUN Creatinine Estim Creat Clear Calc Estimated GFR POC Glucose 111 92 Random Glucose Calcium Total Bilirubin Direct Bilirubin AST ALT Alkaline Phosphatase Ammonia Total Protein Albumin 06/13/24 Unknown Urine clean catch - Clean Catch Midstream Urine Culture - Final Strep agalactiae (Grp B) DS: Summary Hospital Course Hospital Course: Patient is a 48 year old male with hx of schizoaffective disorder who was brought in via EMS and PD on a section 12 due to destroying his apartment, breaking objects on his head, and reporting suicidal ideation, stating he wanted to shoot himself. Per crisis report, patient required a physical and chemical restraint due to being aggressive and violent towards security and staff. Patient presented restless and not being able to engage in assessment. Presented with involuntary tremors and flat affect. He was organized to person and place. Thought blocking. Disheveled and malodorous. Patient resides and [facility] supervised shared living apartment with 1 roommate. He has outpatient providers through [facility] and has VNA through [facility]. Patient has a history of medication noncompliance. History of rapid decompensation. [place] [facility] [place] It is unclear what precipitated patient's presentation for this admission. During admission assessment, upon arrival to unit, patient was nonverbal and staring at ceiling while lying in bed. Patient was placed on section 12B. he was refusing medications. blinking excessively. tremulous. This morning patient requesting orange juice and water. Eating minimal food. Took medications with staff encouragement; patient was given Ativan 2 mg P.O. once and Gabapentin 400mg PO once. Patient became more talkative after an hour of medication administration. Pt was given second dose of Ativan 2mg PO once, Gabapentin 400mg PO once, Clozapine 50mg PO once. Continues with delayed responses to questions; he is focused on wanting to know what happened at [facility] in 1995 . Patient was incontinent of urine and feces; showered with staff assistance. Pt signed CV. Gave verbal consent to speak with outpatient providers. Hospitalist consult placed to ?seizure vs catatonia; Pt was seen by hospitalist; please see notes. T/W spoke with patient's VNA, Eleuterio, who reports pt has been medication compliant to his knowledge. Plan: CV 5 minute safety checks Continue home medications encourage medication compliance hospitalist consult monitor labs obtain collateral Start: Ativan 2mg PO TID hold klonopin for now discharge planning Active on unit. social with peers and staff. Showered. Pt reports feeling better than yesterday ; pt reports he had not taken his medications over the weekend. Pt stated, I wanted to take a break for a few days but I'm willing to start taking them again. I'll be compliant. I just hate having to come to the hospital once a month to get my blood drawn for the medication . Pt was educated regarding the importance of medication compliance. denies SI/HI/VH/AH. Pt placed on 15 minute safety checks. No tremors noted this morning. Continue current tx plan. Active on unit. social with peers and staff. Pt reports feeling worried ; Pt stated, I'm worried if they won't let me go back to my apartment because I broke a lot of stuff and never acted like that before . denies SI/HI/VH/AH. Clozapine increased to 75mg PO bedtime. much improved in terms of s/s of catatonia. continue tx Pt reports feeling better than before ; reports sleeping okay. denies any issues at this time. denies SI/HI/VH/AH. Clozaril increased to 100mg PO bedtime; pt aware. Pt reports feeling alright today; he is looking forward to returning home. denies SI/HI/VH/AH. Plan to discharge Wednesday; pt aware. Labs to be drawn tomorrow. Continue current tx plan. Active on unit. attending groups. Pt reports feeling okay today; Clozapine increased to 125mg PO bedtime. DC Ativan. Continue Klonopin 0.5mg PO TID. Plan for DC home Wednesday. Pt reports feeling good today; pt reports feeling ready to go home . denies SI/HI/VH/AH. per nursing, pt slept 8 hours last night. Pt reports he plans on following up with his outpatient providers and being medication compliant. Patient reported not feeling ready to go and needing a few more days ; pt reports he does not feel like himself yet. Pt requested to be discharged next week. Discharge canceled. Clozaril increased to 150mg PO bedtime. pt showered and encouraged to attend groups. Patient reports feeling good today and ready to go home . pt denies SI/HI/VH/AH. Pt reports he plans on following up with his outpatient providers. Time spent discussing smoking cessation with patient: 3 to 10 minutes Status at Discharge Cognitive/behavioral status at discharge: Patient was interviewed prior to discharge and found to be fully oriented and without SI or HI. Patient has insight and demonstrates good judgment in terms of wanting to pursue treatment. Patient has a safety plan that includes presenting to the closest ER or calling 911 if feeling unsafe. Functional status at discharge: independent ambulation Overall status at discharge: patient is back to baseline Time Spent with Patient Time attestation: Total time managing care of this patient today _20___ minutes. Time spent: Less than 30 minutes Discharge Plan Discharge Anticipated Discharge Date/Time: 06/26/24 09:56 Patient Disposition: Home, Self-Care Discharge Diagnosis: Schizoaffective d/o Referrals: Roxie Still ([facility] therapist) [Other] - 07/05/24 10:00 am (in person appointment) Shelly Bello ([facility] Psychiatrist) [Other] - 07/11/24 10:00 am (in person appointment) Jess Paris MD [Primary Care Provider] - 07/07/24 9:00 am (Your follow up appt has been scheduled with Dr. Alarcon at [facility] for 07-07-24 @ 9am) Discharge Medications: New clozapine 100 mg Tablet 150 mg PO BEDTIME 7 Days Qty: 11 1RF Continued (DME) lancets [FreeStyle Lancets] 28 gauge misc topical DAILY Jardiance 25 mg tablet 25 mg PO DAILY Trulicity 3 mg/0.5 mL pen injector 3 mg subcut WE@0900 atorvastatin 40 mg Tablet 40 mg PO DAILY Qty: 30 0RF clonazepam 0.5 mg Tablet 0.5 mg PO TID Qty: 90 0RF metoprolol succinate 25 mg Tablet Extended Release 24 Hr 25 mg PO DAILY Qty: 30 0RF Protocol: Hold for SBP/HR < HOLD for SBP < : 90 HOLD for HR < : 60 triamcinolone acetonide 0.1 % Cream 1 appl topical DAILY Qty: 15 0RF Protocol: Apply to: Apply to: face metformin 1,000 mg Tablet 1,000 mg PO BID Qty: 60 0RF gabapentin 400 mg Capsule 800 mg PO TID Qty: 90 0RF mirtazapine 45 mg tablet 45 mg PO BEDTIME Discontinued clozapine 50 mg Tablet 250 mg PO BEDTIME Qty: 150 0RF Discharge Orders: Discharge Order (Routine); Ordered 06/26/24 Ordered By: Joyce Hernandez Diet: Regular diet Activity on Discharge: As tolerated Stand Alone Forms: Patient Portal Discharge page Print Language: Irish Care Plan Goals: Maintain mood and safe behaviors Take medications as prescribed Practice coping skills Continue with outpatient providers and reach out to them as needed Health Concerns: Mood stability and behaviors Follow up with outpatient providers regarding Clozapine dose and monitoring ANC+WBC. Plan of Treatment: Follow up with your PCP, psychiatric provider and other outpatient providers regarding above concerns Take medications as prescribed Assessment: Patient was interviewed prior to discharge and found to be fully oriented and without SI or HI. Patient has insight and demonstrates good judgment in terms of wanting to pursue treatment. Patient has a safety plan that includes presenting to the closest ER or calling 911 if feeling unsafe.
--- NOTE | 2024-06-26 12:05 | PC.NURSE ---
Patient easily engaged. Reports mood is stable, denies depression or sadness, denies feeling anxious, denies SI/HI at this time. Denies perceptual disturbances, no overt psychosis or expressed delusions. Reports he is feeling ready for discharge. Discharge paperwork reviewed with patient, reports understanding, states he has no questions. Medications reviewed with patient, reports understanding, states he has visiting nurse who organizes medications. Reviewed follow up appointments, reports understanding. Crisis numbers provided to patient. All belongings taken with patient.
== END 2024-06-26 11:53 | disposition home or self-care (01) | DRG 885 ==
LOC: HO.ED 06-13 12:59 → HO.PADLT16 06-13 13:01
PROVIDERS: Admitting Provider Registered Nurse; Emergency Provider Emergency Medicine Emergency Medical Services; PCP Family Medicine; Responsible Provider Registered Nurse; Visit Provider Psychiatry & Neurology Psychiatry
DX: F25.9 Schizoaffective disorder, unspecified (principal); R45.851 Suicidal ideations; F06.1 Catatonic disorder due to known physiological condition; Z78.1 Physical restraint status; Z20.822 Contact with and (suspected) exposure to COVID-19; Z91.148 Patient's other noncompliance with medication regimen for other reason; Z79.84 Long term (current) use of oral hypoglycemic drugs; Z79.899 Other long term (current) drug therapy
CPT/HCPCS: 0241U; 36415; 80048; 80053; 80061; 80076; 80159; 80307; 81001; 82140; 82550; 82947; 83036; 83605; 83690; 83735; 84443; 85025; 87086; 87147; 93005; 99285; J1200; J2060; J2359; S9485

== ENCOUNTER → 2024-06-13 08:39 | Outpatient (BNV) | payer MEDICARE, MEDICAID, SELFPAY | PROVIDERS: Admitting Provider Registered Nurse; Emergency Provider Emergency Medicine Emergency Medical Services; PCP Family Medicine; Responsible Provider Registered Nurse; Visit Provider Internal Medicine Cardiovascular Disease | DX: R00.0 Tachycardia, unspecified (principal) | CPT/HCPCS: 93010 ==

== ENCOUNTER → 2024-06-13 12:59 | Outpatient (BNV) | payer MEDICARE, MEDICAID, SELFPAY | PROVIDERS: Admitting Provider Registered Nurse; Emergency Provider Emergency Medicine Emergency Medical Services; PCP Family Medicine; Responsible Provider Registered Nurse; Visit Provider Registered Nurse | DX: F25.1 Schizoaffective disorder, depressive type (principal) | CPT/HCPCS: 90792; 99231; 99232; 99238 ==

== ENCOUNTER → 2024-06-13 12:59 | Outpatient (BNV) | payer MEDICARE, MEDICAID, SELFPAY | PROVIDERS: Admitting Provider Registered Nurse; Emergency Provider Emergency Medicine Emergency Medical Services; PCP Family Medicine; Responsible Provider Registered Nurse; Visit Provider Physician Assistant | DX: Z00.8 Encounter for other general examination (principal) | CPT/HCPCS: 99499 ==

== ENCOUNTER 2024-06-28 17:12 | Inpatient (IN) | payer MEDICARE, MEDICAID, SELFPAY ==
--- NOTE | 2024-06-28 | ECG_ITS ---
Test Reason : TACHYCARDIA Blood Pressure : / mmHG Vent. Rate : 119 BPM Atrial Rate : 119 BPM P-R Int : 138 ms QRS Dur : 080 ms QT Int : 334 ms P-R-T Axes : 041 027 068 degrees QTc Int : 469 ms Sinus tachycardia Otherwise normal ECG When compared with ECG of 13-JUN-2024 08:39, No significant change was found Referred By: Ludwig Ríos Electronically Signed By:DUDLEY DAWN MD
--- NOTE | ~2024-06-28 | CT_ITS ---
EXAMINATION: CT HEAD WITHOUT CONTRAST CLINICAL INFORMATION: Encephalopathy. COMPARISON: CT head from 06/28/2024. TECHNIQUE: Contiguous axial imaging was performed from the skull base to vertex without intravenous administration of contrast. This CT examination was performed using dose optimization techniques as appropriate, variously including the following: *Automated exposure control. *Adjustment of mA and/or kV according to patient size (this includes techniques or standardized protocols for targeted exams where dose is matched to indication/reason for exam; i.e. extremities or head). *Use of iterative reconstruction technique. DLP: 623 mGy-cm FINDINGS: There is no evidence of acute intracranial hemorrhage or edematous territorial infarction. Kohli-white matter differentiation is preserved. A few foci of hypoattenuation in the periventricular and deep white matter most commonly seen with mild microangiopathy. Proportional prominence of the ventricles and sulcal spaces without evidence of obstructive hydrocephalus. No abnormal mass effect or midline shift. No extra-axial fluid collections. Mild calcific atherosclerotic disease of the intracranial internal carotid arteries. No hyperdense vessel sign. No acute soft tissue or osseous abnormalities. Mild mucosal thickening of the paranasal sinuses. The mastoid air cells and middle ear cavities are clear. CT/CT head/brain wo IV con IMPRESSION: 1. No evidence of acute intracranial hemorrhage or edematous territorial infarction. 2. Mild underlying microangiopathy and generalized cerebral volume loss. Electronically signed by: Benjamin Davis DO 08/09/2024 01:51 AM EST
--- NOTE | ~2024-06-28 | XR_ITS ---
EXAMINATION: XR CHEST CLINICAL INFORMATION: Tachycardia COMPARISON: Chest radiograph 07/08/2021 TECHNIQUE: Frontal view of the chest was obtained. FINDINGS: Moderate convex rightward curvature of the thoracic spine is present. Normal appearance of the cardiomediastinal structures. Pleura no focal pulmonary consolidation. Normal pattern of pulmonary vasculature. The fourth anterior rib segments remain projection with the lung bases. XR/XR chest 1V IMPRESSION: *Low lung volumes; otherwise, no cardiopulmonary abnormalities identified. *Moderate convex rightward scoliosis of the thoracic spine. Electronically signed by: Ran Castaneda MD 06/29/2024 12:03 AM [facility]
--- NOTE | ~2024-06-28 | CT_ITS ---
EXAMINATION: CT HEAD WITHOUT CONTRAST CLINICAL INFORMATION: Altered mental status. COMPARISON: December 14, 2012 TECHNIQUE: Contiguous axial imaging was performed from the skull base to vertex without intravenous administration of contrast. This CT examination was performed using dose optimization techniques as appropriate, variously including the following: *Automated exposure control *Adjustment of mA and/or kV according to patient size (this includes techniques or standardized protocols for targeted exams where dose is matched to indication/reason for exam; i.e. extremities or head) *Use of iterative reconstruction technique DLP: 631 mGy-cm FINDINGS: There is mild cerebral volume loss with prominence of the lateral and the third ventricles. The cortical sulci are widened appropriately. The fourth ventricle and basal cisterns are normally outlined. There is mild bilateral periventricular and central white matter diminished attenuation. There is no acute territorial defects, hemorrhage or midline shift. The extra-axial spaces are unremarkable. Calvarium/scalp: Intact. Maxillofacial sinuses and mastoids: Clear as visualized. CT/CT head/brain wo IV con IMPRESSION: 1. No acute intracranial pathology. 2. Mild cerebral volume loss and mild chronic microangiopathy. Electronically signed by: Brandon Smith MD 06/28/2024 11:49 PM [facility]
[2024-06-28 17:15] VITALS: BP 147/77; PULSE 120; O2SAT 97
--- NOTE | 2024-06-28 17:26 | MHC.CARE ---
Pt assessed by [facility] clinician Tonya at his apartment. Pt is on a section 12A. Tonya reports that Pt's roommate called PD as he was scared to enter the apartment. Pt has been aggressive towards his roommate and the roommate reported that Pt was trying to put himself in the oven. [facility] clinician reports that Pt had a difficult time engaging in an assessment and just kept saying that he needed to rip his eyes out or that we needed to do it for him. Disposition is [facility].
[2024-06-28 17:30] VITALS: BP 127/82; PULSE 106; RESP 18; TEMP 37.2; O2SAT 95; BMI 32.5
[2024-06-28 17:55] LABS: MANUAL DIFF FLAG NO
[2024-06-28 18:00] VITALS: BP 129/78; PULSE 92; RESP 16; TEMP 36.4; O2SAT 97
[2024-06-28 18:17] LABS: Acetaminophen LAB < 3 mcg/mL (<30); Salicylate < 5.0 mg/dL (15-30)
[2024-06-28 18:18] LABS: Alanine Aminotransferase 21 U/L (0-40); Albumin Level 4.9 g/dL (3.5-5.0); Alkaline Phosphatase 124 U/L (39-117); Anion Gap 22 (12-20); Aspartate Amino Transferase 24 U/L (5-37); Bilirubin Total 0.6 mg/dL (0.0-1.0); Blood Urea Nitrogen 16 mg/dL (9-16); Calcium 9.9 mg/dL (8.4-10.2); Carbon Dioxide 18 mmol/L (22-29); Chloride 105 mmol/L (96-108); Creatinine Clr Calc Pharmacy 129.3; Estimated Glomerular Filt Rate > 60; Ethanol < 10 mg/dL; Glucose Random 139 mg/dL (60-115); Sodium 141 mmol/L (135-145); Total Protein 7.5 g/dL (6.5-8.0)
[2024-06-28 18:21] LABS: Basophils Absolute Auto 0.1 X10*3/uL (0.0-0.2); Basophils Percent Auto 0.6 % (0-2); Eosinophils Percent Auto 0.2 % (0-4); Hematocrit 48.4 % (42.0-52.0); Hemoglobin 15.8 g/dl (14.0-18.0); Imm Gran Abs Auto 0.04 X10*3/uL (0.00-0.03); Imm Gran Pct Auto 0.4 % (0.0-0.4); Lymphocytes Absolute Auto 1.5 X10*3/uL (1.2-4.9); Lymphocytes Percent Auto 14.5 % (20-40); Mean Corpuscular HGB Conc 32.6 g/dl (31.0-36.0); Mean Corpuscular Hemoglobin 27.6 pg (27.0-33.0); Mean Corpuscular Volume 84.5 fL (80.0-98.0); Mean Platelet Volume 9.6 fL (9.4-12.4); Monocytes Absolute Auto 0.7 X10*3/uL (0.1-1.2); Monocytes Percent Auto 6.1 % (2-11); Neutrophils Absolute Auto 8.3 x10*3/uL (2.0-8.3); Neutrophils Percent Auto 78.2 % (45-73); Platelet Count 252 X10*3/uL (160-400); Red Blood Count 5.73 X10*6/uL (4.60-5.80); Red Cell Distribution Width 13.5 % (11.0-16.0); White Blood Count 10.6 X10*3/uL (4.8-10.8)
--- NOTE | 2024-06-28 19:05 | ED_ITS ---
HPI - General Adult General Chief complaint: Psychiatric Symptoms Stated complaint: SECTION 12/SI/HI Time Seen by Provider: 06/28/24 17:24 Source: patient Mode of arrival: EMS Limitations: no limitations History of Present Illness HPI narrative: This is a 48-year-old man with a past medical history of anxiety, schizoaffective disorder, diabetes, benzodiazepine withdrawal who is brought by EMS on a section 12 for aggression and self-injurious behavior. Per triage note, patient was reportedly attempting to put himself into an of in and wanting to rip his eyes out. Patient does not provide any meaningful history. Related Data Home Medications ?Medication ?Instructions ?Recorded ?Confirmed dulaglutide 3 mg/0.5 mL 3 mg subcut WE@0900 09/23/23 06/29/24 subcutaneous pen injector (Trulicity) empagliflozin 25 mg tablet 25 mg PO DAILY 09/23/23 06/29/24 (Jardiance) mirtazapine 45 mg tablet 45 mg PO BEDTIME 06/13/24 06/29/24 Previous Rx's ?Medication ?Instructions ?Recorded atorvastatin 40 mg tablet 40 mg PO DAILY #30 tabs 02/23/24 clonazepam 0.5 mg tablet 0.5 mg PO TID #90 tabs 02/23/24 gabapentin 400 mg capsule 800 mg (2 x 400 mg) PO TID #90 caps 02/23/24 metformin 1,000 mg tablet 1,000 mg PO BID #60 tabs 02/23/24 metoprolol succinate 25 mg 25 mg PO DAILY #30 tabs 02/23/24 tablet,extended release 24 hr clozapine 100 mg tablet 150 mg (1.5 x 100 mg) PO BEDTIME 7 06/26/24 days #11 tabs Allergies Allergy/AdvReac Type Severity Reaction Status Date / Time haloperidol [From Haldol] Allergy Intermediate Agitated Verified 06/28/24 17:33 lithium Allergy Intermediate Agitated Verified 06/28/24 17:33 oxcarbazepine Allergy Unknown RASH Verified 06/28/24 17:33 [From TRILEPTAL] fluphenazine [From Prolixin] Allergy akathisia Verified 06/28/24 17:33 Review of Systems 2 Review of Systems: ROS as per HPI PMFSH Past Medical History Medical History Acute anxiety Schizoaffective disorder Diabetes 1.5, managed as type 2 Social History Social History Household Members: Other Household Members Other:: roommate. Housing: Apartment Housing Other:: [facility] supported apartment Do you presently have visiting nurse or other home services: Yes Alcohol intake: former Comment: utilizing a walker Patient Tobacco Use Status: Never used Tobacco Tobacco use type: Cigarette Smoked in Last 30 Days: No e-Cigarette/Vaping Use: Never Used Second Hand Smoke Exposure: No Use of substances other than those prescribed or required for medical reasons: No Advance Directives: No Advance Directives Information Provided: No Do you have a plan to hurt others: No Plan service: No Sexual orientation: Unable to collect Physical Exam ED Vital Signs: Vital Signs - 24 hr 06/28/24 17:30 06/28/24 18:00 06/28/24 20:37 Temperature 99 F 97.6 F 98.4 F Pulse Rate 106 H 92 143 H Respiratory Rate 18 16 24 H Blood Pressure 127/82 129/78 118/68 Pulse Oximetry 95 97 97 Oxygen Delivery Method Room Air Room Air Room Air 06/28/24 20:52 06/28/24 23:45 06/29/24 07:55 Temperature 100.2 F 97.8 F Pulse Rate 108 H 94 Respiratory Rate 19 16 18 Blood Pressure 110/59 L 114/75 Pulse Oximetry 98 98 Oxygen Delivery Method Room Air Room Air BMI result Body Mass Index 32.5 Gen: NAD, awake and alert, follows commands HEENT: NCAT, EOMI, normal conjunctiva CV: RRR Pulm: CTAB, no increased work of breathing GI: Soft, NTND, no rebound, guarding or rigidity Neuro: Grossly non focal Skin: Warm, dry, bilateral upper and lower extremity compartments are soft Course Course Course Narrative: observation care revealed that the patient does meet psychiatric necessity for hospitalization. final disposition discussed with the patient. The patient completed observation care at 1251pm to be admitted. previously medically cleared by prior provider JANNY 1251pm 06/29/24 Medications Administered Generic Name Dose Route Start Last Admin Trade Name Freq PRN Reason Stop Dose Admin Atorvastatin Calcium 40 mg 06/29/24 09:00 06/29/24 10:17 Atorvastatin Calcium 40 Mg Tablet PO Not Given DAILY LAUREN Clonazepam 0.5 mg 06/29/24 09:00 06/29/24 10:17 Clonazepam 0.5 Mg Tablet PO Not Given TID LAUREN Empagliflozin 25 mg 06/29/24 09:00 06/29/24 10:17 Empagliflozin 25 Mg Tablet PO Not Given DAILY LAUREN Gabapentin 800 mg 06/29/24 09:00 06/29/24 10:17 Gabapentin 400 Mg Capsule PO Not Given TID LAUREN Metformin HCl 1,000 mg 06/29/24 09:00 06/29/24 10:17 Metformin Hcl 1,000 Mg Tablet PO Not Given BID LAUREN Metoprolol Succinate 25 mg 06/29/24 09:00 06/29/24 10:17 Metoprolol Succinate Er 25 Mg Tab.Er.24h PO Not Given DAILY LAUREN Protocol Discontinued Medications Generic Name Dose Route Start Last Admin Trade Name Neli PRN Reason Stop Dose Admin Diazepam 5 mg 06/28/24 20:42 06/28/24 20:46 Diazepam 10 Mg/2 Ml Cartridge IVPUSH 06/28/24 20:43 5 mg STAT STA Administration Diphenhydramine HCl 50 mg 06/28/24 21:59 06/28/24 22:31 Diphenhydramine Hcl 25 Mg Capsule PO 06/28/24 22:00 Not Given ONCE ONE Sodium Chloride 1,000 mls @ 999 mls/hr 06/28/24 20:45 06/28/24 23:30 Ns IV 06/28/24 21:45 Infused .Q1H1M LAUREN Infusion Lorazepam 2 mg 06/28/24 21:59 06/28/24 22:31 Lorazepam 1 Mg Tablet PO 06/28/24 22:00 Not Given ONCE ONE Lorazepam 2 mg 06/28/24 22:19 06/28/24 22:32 Lorazepam 2 Mg/Ml Vial IVPUSH 06/28/24 22:20 2 mg ONCE ONE Administration Ziprasidone 20 mg 06/28/24 22:03 06/28/24 22:31 Ziprasidone 20 Mg Capsule PO 06/28/24 22:04 Not Given ONCE ONE Medical Decision Making Medical Decision Making [facility] Narrative: Differential diagnosis includes, but is not limited to anxiety, depression, decompensated psychiatric illness, suicide ideation, homicidal ideation, substance use. Patient is afebrile and hemodynamically stable on room air. Exam is benign and reassuring. I independently reviewed and interpreted patient's labs as below. 2043 - I notified of a change in mental status by nursing. Patient remains a limited historian as on initial examination. He is tachycardic. Not hypotensive or hypotensive. He still does not participate in history. He does not have any nuchal rigidity. He does appear somewhat tremulous and mildly diaphoretic. Given history of benzodiazepine withdrawal I will treat empirically at this time with 5 mg IV Valium. Patient does not have extremity rigidity or clonus. Rectal temperature is borderline at 100.2? F. Will provide IV fluids. We will obtain CT imaging of head and screening chest x-ray. Care is transitioned to oncoming physician, Dr. Moran, at the end of my shift at 2100 with disposition pending remaining medical evaluation. Critical Care Time: A total of 35 minutes spent in direct patient care with coordinating critical resuscitation, procedures, reviewing records, discussing with consultants, reviewing labs, and/or managing patient. I received sign-out from my colleague Dr. Ríos CT scan shows no acute abnormalities. Patient has been very agitated, not aggressive, occasionally yelling, questionably responding to internal stimuli Patient received a dose of IV Ativan. Patient is sleeping comfortably Vitals stable, patient is stable to return to the emergency [facility] pod Admission/Observation Consideration of admission/observation: Escalation of care including admission/observation considered Lab Data MDM Lab Attestation statement: I reviewed the patient's lab results. I independently reviewed and interpreted patient's CBC, metabolic panel ethanol level, acetaminophen level and salicylate level, which are benign and reassuring. 06/28/24 17:51 06/28/24 17:51 Labs: Lab Results 06/28/24 06/28/24 Range/Units 17:51 20:33 WBC 10.6 (4.8-10.8) X10*3/uL RBC 5.73 (4.60-5.80) X10*6/uL Hgb 15.8 (14.0-18.0) g/dl Hct 48.4 (42.0-52.0) % MCV 84.5 (80.0-98.0) fL MCH 27.6 (27.0-33.0) pg MCHC 32.6 (31.0-36.0) g/dl RDW 13.5 (11.0-16.0) % Plt Count 252 (160-400) X10*3/uL MPV 9.6 (9.4-12.4) fL Immature Gran % (Auto) 0.4 (0.0-0.4) % Neut % (Auto) 78.2 H (45-73) % Lymph % (Auto) 14.5 L (20-40) % Collin % (Auto) 6.1 (2-11) % Eos % (Auto) 0.2 (0-4) % Baso % (Auto) 0.6 (0-2) % Lymph # (Auto) 1.5 (1.2-4.9) X10*3/uL Collin # (Auto) 0.7 (0.1-1.2) X10*3/uL Eos # (Auto) 0.0 (0.0-0.4) X10*3/uL Baso # (Auto) 0.1 (0.0-0.2) X10*3/uL Abs Immat Gran (auto) 0.04 H (0.00-0.03) X10*3/uL Absolute Neuts (auto) 8.3 (2.0-8.3) x10*3/uL Absolute Nucleated RBC 0.000 (0.0-0.012) X10*3/uL Nucleated RBC % (auto) 0.0 (0.0-0.2) /100WBC Sodium 141 (135-145) mmol/L Potassium 4.0 (3.3-5.1) mmol/L Chloride 105 (96-108) mmol/L Carbon Dioxide 18 L (22-29) mmol/L Anion Gap 22 H (12-20) BUN 16 (9-16) mg/dL Creatinine 0.89 (0.5-1.4) mg/dL Estim Creat Clear Calc 129.3 Estimated GFR > 60 POC Glucose 160 H (60-115) mg/dL Random Glucose 139 H (60-115) mg/dL Calcium 9.9 (8.4-10.2) mg/dL Total Bilirubin 0.6 (0.0-1.0) mg/dL AST 24 (5-37) U/L ALT 21 (0-40) U/L Alkaline Phosphatase 124 H (39-117) U/L Total Protein 7.5 (6.5-8.0) g/dL Albumin 4.9 (3.5-5.0) g/dL Salicylates < 5.0 L (15-30) mg/dL Acetaminophen < 3 (<30) mcg/mL Ethyl Alcohol < 10 mg/dL Independent Interpretation I performed an independent interpretation of an: EKG Interpretation: I independently reviewed and interpreted the patient's EKG, which demonstrates a sinus tachycardia at 119 beats per minute, MI 138, QRS 80, QTC 469, no STEMI Discharge Plan Discharge Clinical Impression: Suicidal ideation Patient Disposition: Admitted As Inpatient Interventions: [place]-Suicide Risk Severity Scale Last Done: 06/29/24 07:55
--- NOTE | 2024-06-28 20:09 | MHC.EDTECH ---
Pt is gagging and spitting into his hands and pulling out his hair despite several attempts to be redirected. RN is aware.
[2024-06-28 20:37] VITALS: BP 118/68; PULSE 143; RESP 24; TEMP 36.9; O2SAT 97
[2024-06-28 20:39] LABS: Glucose, Whole Blood 160 mg/dL (60-115)
[2024-06-28] MEDS: diazePAM 10 MG/2 ML CARTRIDGE 5 MG IVPUSH (20:46)
[2024-06-28] MEDS: 0.9 % Sodium Chloride 1,000 ML 999 ML IV (20:47)
[2024-06-28 20:52] VITALS: BP 110/59; PULSE 108; RESP 19; TEMP 37.9; O2SAT 98
--- NOTE | 2024-06-28 21:22 | PC.NURSE ---
pt brought out of pod to ed5 after finding pt to not respond to questions. pt will follow commands like turn/sit etc but only thing hes yelling at this time is rip my fucking eyes out. vitals and poc as documented. MD at bedside at time of arrival to ed5, no new labs ordered. ekg obtained. pt placed on cardaic monitor. iv established. pt medicated per mar ivf infusing. 1:1 sitter at bedside. pt cooperative with cxr and head ct. awaiting further orders at this time. skin wpd. pt hair is wet but was said pt was putting head into toilet bowl earlier in pod. no n/v/d noted at this time. resp even and unlabored.
[2024-06-28] MEDS: LORazepam 2 MG/ML VIAL IVPUSH (22:32)
--- NOTE | 2024-06-28 22:52 | PC.NURSE ---
pt yelling in room rip my fucking eyes out and flailing in bed. attempted to medicated with po meds and pt refusing, attempt by charge authorizer as well. pt yelling i just cant keep doing this. eyes appear red, pt does not answer when asked if eyes hurt/itchy. pt follows commands appropriately however restless in stretcher. pt medicated per mar with iv ativan. ivf continue infusing. 1:1 sitter at bedside.
[2024-06-28 23:45] VITALS: BP 114/75; PULSE 94; RESP 16; TEMP 36.6; O2SAT 98
--- NOTE | 2024-06-28 23:46 | MHC.EDTECH ---
This tech took over care of patient at 2300,rounded and introduced self to pt,vitals taken,pt took monitor off,RN aware, patient is resting quietly 1:1 sitter at bedside for safety
--- NOTE | 2024-06-29 00:04 | PC.NURSE ---
pt is now more alert and oriented states he feels more calm now. pt is stating he feels he gets agitated because hes eyes are too stimulated. pt states he wants to try to get sleep at this time. lights dimmed. 1:1 sitter at bedside.
[2024-06-29 07:55] VITALS: RESP 18
--- NOTE | 2024-06-29 10:18 | PC.NURSE ---
pt refused morning medications
[2024-06-29 13:17] VITALS: BP 134/84; PULSE 111; RESP 18; TEMP 36.5; O2SAT 97
[2024-06-29] MEDS: OLANZapine ODT 10 MG TAB.RAPDIS 5 MG TRANSLINGU (14:22)
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
[2024-06-29 20:00] VITALS: BP 133/73; PULSE 114; RESP 16; TEMP 36.4; O2SAT 99
[2024-06-30 08:00] VITALS: RESP 16
--- NOTE | 2024-06-30 12:27 | HO.PSYCHPN ---
Subjective Subjective Date of Service: 06/30/24 Reason For Visit: psychosis Interim History: lying face down on kitchen floor wrapped in blanket, not responding to attempts by staff to engage. no response to MD. per staff, pt had been like that since 629, although had started out in the position. Mental Status Exam Mental Status Exam Narrative: lying face down on the floor of the kitchen on M5, covered in blanket, not responding to queries. Diagnostics Vital Signs (24Hr): Vital Signs - 24 hr 06/29/24 13:17 06/29/24 20:00 06/30/24 08:00 Temperature 97.7 F 97.6 F Pulse Rate 111 H 114 H Respiratory Rate 18 16 16 Blood Pressure 134/84 133/73 Pulse Oximetry 97 99 Oxygen Delivery Method Room Air Room Air BMI result Body Mass Index 32.5 Labs 06/28/24 17:51 06/28/24 17:51 Labs: Laboratory Results - last 48 hr 06/28/24 06/28/24 17:51 20:33 WBC 10.6 RBC 5.73 Hgb 15.8 Hct 48.4 MCV 84.5 MCH 27.6 MCHC 32.6 RDW 13.5 Plt Count 252 MPV 9.6 Immature Gran % (Auto) 0.4 Neut % (Auto) 78.2 H Lymph % (Auto) 14.5 L Barton % (Auto) 6.1 Eos % (Auto) 0.2 Baso % (Auto) 0.6 Lymph # (Auto) 1.5 Barton # (Auto) 0.7 Eos # (Auto) 0.0 Baso # (Auto) 0.1 Abs Immat Gran (auto) 0.04 H Absolute Neuts (auto) 8.3 Absolute Nucleated RBC 0.000 Nucleated RBC % (auto) 0.0 Sodium 141 Potassium 4.0 Chloride 105 Carbon Dioxide 18 L Anion Gap 22 H BUN 16 Creatinine 0.89 Estim Creat Clear Calc 129.3 Estimated GFR > 60 POC Glucose 160 H Random Glucose 139 H Calcium 9.9 Total Bilirubin 0.6 AST 24 ALT 21 Alkaline Phosphatase 124 H Total Protein 7.5 Albumin 4.9 Salicylates < 5.0 L Acetaminophen < 3 Ethyl Alcohol < 10 Imaging Radiology Impressions: ITS Impressions Chest X-Ray 06/28/24 20:45 IMPRESSION: *Low lung volumes; otherwise, no cardiopulmonary abnormalities identified. *Moderate convex rightward scoliosis of the thoracic spine. Electronically signed by: aRn Castaneda MD 06/29/2024 12:03 AM EST RP Head CT 06/28/24 20:53 IMPRESSION: 1. No acute intracranial pathology. 2. Mild cerebral volume loss and mild chronic microangiopathy. Electronically signed by: Brandon Smith MD 06/28/2024 11:49 PM EST RP Medications Medications Current Medications Acetaminophen (Acetaminophen 325 Mg Tablet) 650 mg PO Q6H PRN PRN Reason: Headache/Pain Mild Scale (1-3) Al Hydroxide/Mg Hydroxide (Magnesium Hydrox/Alum Hydrox 30 Ml Oral.Susp) 30 ml PO Q6H PRN PRN Reason: Heartburn/Nausea Atorvastatin Calcium (Atorvastatin Calcium 40 Mg Tablet) 40 mg PO DAILY [facility] Last Admin: 06/30/24 09:45 Dose: Not Given Clonazepam (Clonazepam 0.5 Mg Tablet) 0.5 mg PO TID [facility] Last Admin: 06/30/24 09:45 Dose: Not Given Clonazepam (Clonazepam Odt 0.5 Mg Tab.Rapdis) 1 mg PO TID [facility] Clozapine (Clozapine Odt 25 Mg Tab.Rapdis) 25 mg PO BEDTIME [facility] Last Admin: 06/29/24 21:39 Dose: Not Given Empagliflozin (Empagliflozin 25 Mg Tablet) 25 mg PO DAILY [facility] Last Admin: 06/30/24 09:45 Dose: Not Given Gabapentin (Gabapentin 400 Mg Capsule) 800 mg PO TID [facility] Last Admin: 06/30/24 09:45 Dose: Not Given Hydroxyzine HCl (Hydroxyzine Hcl 25 Mg Tablet) 25 mg PO Q6H PRN PRN Reason: Anxiety Magnesium Hydroxide (Milk Of Magnesia 30 Ml Oral.Susp) 30 ml PO DAILY PRN PRN Reason: Constipation Metformin HCl (Metformin Hcl 1,000 Mg Tablet) 1,000 mg PO BID [facility] Last Admin: 06/30/24 09:45 Dose: Not Given Metoprolol Succinate (Metoprolol Succinate Er 25 Mg Tab.Er.24h) 25 mg PO DAILY [facility]; Protocol Last Admin: 06/30/24 09:45 Dose: Not Given Mirtazapine (Mirtazapine 15 Mg Tablet) 45 mg PO BEDTIME [facility] Last Admin: 06/29/24 21:40 Dose: Not Given Nicotine Polacrilex (Nicotine Polacrilex 2 Mg Gum) 4 mg BUCCAL Q2H PRN PRN Reason: Nicotine Cravings Non-Formulary Medication (Dulaglutide [Trulicity]) 3 mg SUBCUT WE@0900 [facility] Olanzapine (Olanzapine Odt 10 Mg Tab.Rapdis) 5 mg TRANSLINGU Q4H PRN PRN Reason: anxiety/agitation Trazodone HCl (Trazodone Hcl 50 Mg Tablet) 50 mg PO BEDTIME MRX1 PRN PRN Reason: Insomnia Allergies Allergies Allergy/AdvReac Type Severity Reaction Status Date / Time haloperidol [From Haldol] Allergy Intermediate Agitated Verified 06/28/24 17:33 lithium Allergy Intermediate Agitated Verified 06/28/24 17:33 oxcarbazepine Allergy Unknown RASH Verified 06/28/24 17:33 [From TRILEPTAL] fluphenazine [From Prolixin] Allergy akathisia Verified 06/28/24 17:33 Assessment & Plan Assessment & Plan (1) Schizoaffective disorder: Status: Acute Code(s): F25.9 - Schizoaffective disorder, unspecified Plan 06/29: restart/continue discharge meds from most recent hospitalization. change to ODT what can be changed to ODT in the hopes that stomach complaint is driven by psychosis and will resolve with adequate neuroleptic and anxiolytic Tx. 06/30: apparently catatonic this morning. per RN, pt has not taken any medications since admission. will add ativan 2 mg TID, staff physical therapy assistant to strongly and repeatedly encourage pt to take medication. apparently, this approach worked during most recent admission on M3 with similar presentation. Reason for continued inpatient stay Substantial Risk for: inability to function and rapid decompensation Time Spent With Patient Time: Total time managing care of this patient today __25__ minutes.
[2024-06-30] MEDS: LORazepam 1 MG TABLET 2 MG PO ×2 (14:33→21:00)
[2024-06-30] MEDS: clonazePAM ODT 0.5 MG TAB.RAPDIS PO ×2 (14:33→21:00)
[2024-06-30 20:00] VITALS: RESP 14
[2024-06-30] MEDS: cloZAPine ODT 25 MG TAB.RAPDIS PO (21:00)
[2024-06-30] MEDS: Gabapentin 400 MG CAPSULE 800 MG PO (21:01)
[2024-06-30] MEDS: Mirtazapine 15 MG TABLET 45 MG PO (21:01)
[2024-06-30] MEDS: metFORMIN HCl 1,000 MG TABLET 1000 MG PO (21:01)
[2024-07-01] MEDS: LORazepam 1 MG TABLET 2 MG PO ×3 (08:23→21:05)
[2024-07-01] MEDS: Empagliflozin 25 MG TABLET PO (08:23)
[2024-07-01] MEDS: Atorvastatin Calcium 40 MG TABLET PO (08:23)
[2024-07-01] MEDS: metFORMIN HCl 1,000 MG TABLET 1000 MG PO (08:23)
[2024-07-01] MEDS: clonazePAM ODT 0.5 MG TAB.RAPDIS PO ×3 (08:23→21:04)
[2024-07-01] MEDS: Gabapentin 400 MG CAPSULE 800 MG PO ×3 (08:23→21:05)
[2024-07-01] MEDS: Metoprolol Succinate ER 25 MG TAB.ER.24H PO (08:24)
[2024-07-01 08:27] VITALS: BP 136/81; PULSE 101; RESP 16; TEMP 36.5; O2SAT 99
[2024-07-01] MEDS: Loperamide HCl 2 MG CAPSULE PO (10:23)
--- NOTE | 2024-07-01 11:27 | HO.PSYCHPN ---
Subjective Subjective Date of Service: 07/01/24 Reason For Visit: psychosis Interim History: Laying in bed. Answering questions monosyllabically. Compliant with medications. One word answers. Had an episode of diarrhea. No abdominal pain. No fevers. Less catatonic. Review of Systems Review of Systems ROS as per [facility] Mental Status Exam Mental Status Exam Narrative: lying face down on the floor of the kitchen on M5, covered in blanket, not responding to queries. Diagnostics Vital Signs (24Hr): Vital Signs - 24 hr 06/30/24 20:00 07/01/24 08:27 Temperature 97.7 F Pulse Rate 101 H Respiratory Rate 14 16 Blood Pressure 136/81 Pulse Oximetry 99 Oxygen Delivery Method Room Air BMI result Body Mass Index 32.5 Labs 06/28/24 17:51 06/28/24 17:51 Imaging Radiology Impressions: ITS Impressions Chest X-Ray 06/28/24 20:45 IMPRESSION: *Low lung volumes; otherwise, no cardiopulmonary abnormalities identified. *Moderate convex rightward scoliosis of the thoracic spine. Electronically signed by: Ran Castaneda MD 06/29/2024 12:03 AM EST RP Head CT 06/28/24 20:53 IMPRESSION: 1. No acute intracranial pathology. 2. Mild cerebral volume loss and mild chronic microangiopathy. Electronically signed by: Brandon Smith MD 06/28/2024 11:49 PM EST RP Medications Medications Current Medications Acetaminophen (Acetaminophen 325 Mg Tablet) 650 mg PO Q6H PRN PRN Reason: Headache/Pain Mild Scale (1-3) Al Hydroxide/Mg Hydroxide (Magnesium Hydrox/Alum Hydrox 30 Ml Oral.Susp) 30 ml PO Q6H PRN PRN Reason: Heartburn/Nausea Atorvastatin Calcium (Atorvastatin Calcium 40 Mg Tablet) 40 mg PO DAILY [facility] Last Admin: 07/01/24 08:23 Dose: 40 mg Clonazepam (Clonazepam Odt 0.5 Mg Tab.Rapdis) 0.5 mg PO TID [facility] Last Admin: 07/01/24 08:23 Dose: 0.5 mg Clozapine (Clozapine Odt 25 Mg Tab.Rapdis) 25 mg PO BEDTIME [facility] Last Admin: 06/30/24 21:00 Dose: 25 mg Empagliflozin (Empagliflozin 25 Mg Tablet) 25 mg PO DAILY [facility] Last Admin: 07/01/24 08:23 Dose: 25 mg Gabapentin (Gabapentin 400 Mg Capsule) 800 mg PO TID [facility] Last Admin: 07/01/24 08:23 Dose: 800 mg Hydroxyzine HCl (Hydroxyzine Hcl 25 Mg Tablet) 25 mg PO Q6H PRN PRN Reason: Anxiety Loperamide HCl (Loperamide Hcl 2 Mg Capsule) 2 mg PO Q6H PRN PRN Reason: Diarrhea Last Admin: 07/01/24 10:23 Dose: 2 mg Lorazepam (Lorazepam 1 Mg Tablet) 2 mg PO TID [facility] Last Admin: 07/01/24 08:23 Dose: 2 mg Magnesium Hydroxide (Milk Of Magnesia 30 Ml Oral.Susp) 30 ml PO DAILY PRN PRN Reason: Constipation Metformin HCl (Metformin Hcl 1,000 Mg Tablet) 1,000 mg PO BID [facility] Last Admin: 07/01/24 08:23 Dose: 1,000 mg Metoprolol Succinate (Metoprolol Succinate Er 25 Mg Tab.Er.24h) 25 mg PO DAILY [facility]; Protocol Last Admin: 07/01/24 08:24 Dose: 25 mg Mirtazapine (Mirtazapine 15 Mg Tablet) 45 mg PO BEDTIME [facility] Last Admin: 06/30/24 21:01 Dose: 45 mg Nicotine Polacrilex (Nicotine Polacrilex 2 Mg Gum) 4 mg BUCCAL Q2H PRN PRN Reason: Nicotine Cravings Non-Formulary Medication (Dulaglutide [Trulicity]) 3 mg SUBCUT WE@0900 [facility] Olanzapine (Olanzapine Odt 10 Mg Tab.Rapdis) 5 mg TRANSLINGU Q4H PRN PRN Reason: anxiety/agitation Trazodone HCl (Trazodone Hcl 50 Mg Tablet) 50 mg PO BEDTIME MRX1 PRN PRN Reason: Insomnia Allergies Allergies Allergy/AdvReac Type Severity Reaction Status Date / Time haloperidol [From Haldol] Allergy Intermediate Agitated Verified 06/28/24 17:33 lithium Allergy Intermediate Agitated Verified 06/28/24 17:33 oxcarbazepine Allergy Unknown RASH Verified 06/28/24 17:33 [From TRILEPTAL] fluphenazine [From Prolixin] Allergy akathisia Verified 06/28/24 17:33 Assessment & Plan Assessment & Plan (1) Schizoaffective disorder: Status: Acute Code(s): F25.9 - Schizoaffective disorder, unspecified Plan 06/29: restart/continue discharge meds from most recent hospitalization. change to ODT what can be changed to ODT in the hopes that stomach complaint is driven by psychosis and will resolve with adequate neuroleptic and anxiolytic Tx. 06/30: apparently catatonic this morning. per RN, pt has not taken any medications since admission. will add ativan 2 mg TID, staff trainer to strongly and repeatedly encourage pt to take medication. apparently, this approach worked during most recent admission on M3 with similar presentation. 07/01: Started being compliant. More responsive. Will hold Glucophage due to diarrhea. Imodium. Continue other medications. Reason for continued inpatient stay Substantial Risk for: inability to function, rapid decompensation and med/psych decompensation Time Spent With Patient Time: Total time managing care of this patient today ____ minutes.
[2024-07-01 20:00] VITALS: BP 105/59; PULSE 100; RESP 15; TEMP 36.4; O2SAT 97
[2024-07-01] MEDS: Mirtazapine 15 MG TABLET 45 MG PO (21:04)
[2024-07-01] MEDS: cloZAPine ODT 25 MG TAB.RAPDIS PO (21:05)
[2024-07-02] MEDS: Empagliflozin 25 MG TABLET PO (08:23)
[2024-07-02] MEDS: Atorvastatin Calcium 40 MG TABLET PO (08:23)
[2024-07-02] MEDS: Metoprolol Succinate ER 25 MG TAB.ER.24H PO (08:23)
[2024-07-02] MEDS: clonazePAM ODT 0.5 MG TAB.RAPDIS PO ×2 (08:24→14:47)
[2024-07-02] MEDS: Gabapentin 400 MG CAPSULE 800 MG PO ×3 (08:24→20:31)
[2024-07-02] MEDS: LORazepam 1 MG TABLET 2 MG PO ×2 (08:24→14:47)
[2024-07-02 08:33] VITALS: BP 101/61; PULSE 98; RESP 16; TEMP 36.3; O2SAT 100
--- NOTE | 2024-07-02 11:09 | P.PNPSI_ITS ---
Subjective Subjective Date of Service: 07/02/24 Reason For Visit: psychosis Interim History: Laying in bed. Answering questions . More engaged. Out of bed. Didn't want to shower when offered. He was embarrassed yesterday about his incontinence. No more diarrhea today after DC Metformin. He is able to swallow tablets now. He is compliant with medications and seems more engaged. Eating better. Doesn't appear catatonic. Review of Systems Review of Systems ROS as per [facility] Mental Status Exam Mental Status Exam Narrative: Laying in bed. Disheveled. Responding to questions. Mood is depressed. Denies SI/HI. Denies AVH. Diagnostics Vital Signs (24Hr): Vital Signs - 24 hr 07/01/24 20:00 07/02/24 08:33 Temperature 97.5 F 97.3 F Pulse Rate 100 98 Respiratory Rate 15 16 Blood Pressure 105/59 L 101/61 Pulse Oximetry 97 100 Oxygen Delivery Method Room Air BMI result Body Mass Index 32.5 Labs 06/28/24 17:51 06/28/24 17:51 Imaging Radiology Impressions: ITS Impressions Chest X-Ray 06/28/24 20:45 IMPRESSION: *Low lung volumes; otherwise, no cardiopulmonary abnormalities identified. *Moderate convex rightward scoliosis of the thoracic spine. Electronically signed by: Ran Castaneda MD 06/29/2024 12:[address] 06/28/24 20:53 IMPRESSION: 1. No acute intracranial pathology. 2. Mild cerebral volume loss and mild chronic microangiopathy. Electronically signed by: Brandon Smith MD 06/28/2024 11:49 PM EST RP Medications Medications Current Medications Acetaminophen (Acetaminophen 325 Mg Tablet) 650 mg PO Q6H PRN PRN Reason: Headache/Pain Mild Scale (1-3) Al Hydroxide/Mg Hydroxide (Magnesium Hydrox/Alum Hydrox 30 Ml Oral.Susp) 30 ml PO Q6H PRN PRN Reason: Heartburn/Nausea Atorvastatin Calcium (Atorvastatin Calcium 40 Mg Tablet) 40 mg PO DAILY [facility] Last Admin: 07/02/24 08:23 Dose: 40 mg Clonazepam (Clonazepam Odt 0.5 Mg Tab.Rapdis) 0.5 mg PO TID [facility] Last Admin: 07/02/24 08:24 Dose: 0.5 mg Clozapine (Clozapine Odt 25 Mg Tab.Rapdis) 25 mg PO BEDTIME [facility] Last Admin: 07/01/24 21:05 Dose: 25 mg Empagliflozin (Empagliflozin 25 Mg Tablet) 25 mg PO DAILY [facility] Last Admin: 07/02/24 08:23 Dose: 25 mg Gabapentin (Gabapentin 400 Mg Capsule) 800 mg PO TID [facility] Last Admin: 07/02/24 08:24 Dose: 800 mg Hydroxyzine HCl (Hydroxyzine Hcl 25 Mg Tablet) 25 mg PO Q6H PRN PRN Reason: Anxiety Loperamide HCl (Loperamide Hcl 2 Mg Capsule) 2 mg PO Q6H PRN PRN Reason: Diarrhea Last Admin: 07/01/24 10:23 Dose: 2 mg Lorazepam (Lorazepam 1 Mg Tablet) 2 mg PO TID [facility] Last Admin: 07/02/24 08:24 Dose: 2 mg Magnesium Hydroxide (Milk Of Magnesia 30 Ml Oral.Susp) 30 ml PO DAILY PRN PRN Reason: Constipation Metformin HCl (Metformin Hcl 1,000 Mg Tablet) 1,000 mg PO BID [facility] Last Admin: 07/01/24 21:13 Dose: Not Given Metoprolol Succinate (Metoprolol Succinate Er 25 Mg Tab.Er.24h) 25 mg PO DAILY [facility]; Protocol Last Admin: 07/02/24 08:23 Dose: 25 mg Mirtazapine (Mirtazapine 15 Mg Tablet) 45 mg PO BEDTIME [facility] Last Admin: 07/01/24 21:04 Dose: 45 mg Nicotine Polacrilex (Nicotine Polacrilex 2 Mg Gum) 4 mg BUCCAL Q2H PRN PRN Reason: Nicotine Cravings Non-Formulary Medication (Dulaglutide [Trulicity]) 3 mg SUBCUT WE@0900 [facility] Olanzapine (Olanzapine Odt 10 Mg Tab.Rapdis) 5 mg TRANSLINGU Q4H PRN PRN Reason: anxiety/agitation Trazodone HCl (Trazodone Hcl 50 Mg Tablet) 50 mg PO BEDTIME MRX1 PRN PRN Reason: Insomnia Allergies Allergies Allergy/AdvReac Type Severity Reaction Status Date / Time haloperidol [From Haldol] Allergy Intermediate Agitated Verified 06/28/24 17:33 lithium Allergy Intermediate Agitated Verified 06/28/24 17:33 oxcarbazepine Allergy Unknown RASH Verified 06/28/24 17:33 [From TRILEPTAL] fluphenazine [From Prolixin] Allergy akathisia Verified 06/28/24 17:33 Assessment & Plan Assessment & Plan (1) Schizoaffective disorder: Status: Acute Code(s): F25.9 - Schizoaffective disorder, unspecified Plan 06/29: restart/continue discharge meds from most recent hospitalization. change to ODT what can be changed to ODT in the hopes that stomach complaint is driven by psychosis and will resolve with adequate neuroleptic and anxiolytic Tx. 06/30: apparently catatonic this morning. per RN, pt has not taken any medications since admission. will add ativan 2 mg TID, staffing account manager to strongly and repeatedly encourage pt to take medication. apparently, this approach worked during most recent admission on M3 with similar presentation. 07/01: Started being compliant. More responsive. Will hold Glucophage due to diarrhea. Imodium. Continue other medications. 07/02: Increase Clozaril to 50 mg HS. DC ODT Clonazepam now that he can swallow OK. Lower Ativan to 1 mg TID. Reason for continued inpatient stay Substantial Risk for: inability to function and rapid decompensation Time Spent With Patient Time: Total time managing care of this patient today ____ minutes.
[2024-07-02 20:00] VITALS: BP 117/57; PULSE 96; RESP 14; TEMP 36.8; O2SAT 98
[2024-07-02] MEDS: cloZAPine ODT 25 MG TAB.RAPDIS 50 MG PO (20:30)
[2024-07-02] MEDS: Mirtazapine 15 MG TABLET 45 MG PO (20:31)
[2024-07-02] MEDS: LORazepam 1 MG TABLET PO (20:31)
[2024-07-03] MEDS: Gabapentin 400 MG CAPSULE 800 MG PO ×3 (10:36→22:19)
[2024-07-03] MEDS: Atorvastatin Calcium 40 MG TABLET PO (10:36)
[2024-07-03] MEDS: Metoprolol Succinate ER 25 MG TAB.ER.24H PO (10:36)
[2024-07-03] MEDS: Empagliflozin 25 MG TABLET PO (10:38)
[2024-07-03] MEDS: LORazepam 1 MG TABLET PO ×3 (10:38→22:19)
--- NOTE | 2024-07-03 16:49 | P.PNPSI_ITS ---
Subjective Subjective Date of Service: 07/03/24 Reason For Visit: psychosis Subjective Notes: Conditional Voluntary Healthcare Proxy: No Guardianship: No Medical Problems Affecting Mental Status: No Interim History: Pt in bed this afternoon. Awake, alert, not very talkative. Clozaril titration to continue on 07/04. Denies all sx and issues of concern. Encouraged to participate in ADL's, and structured activities. Maybe . Medication Compliance: Yes Side effects from medications: No Attending Groups: No Review of Systems Acute medical concerns: No Medical Review of Systems: unchanged Review of Systems Review of Systems Yes Unobtainable due to mental status Mental Status Exam Mental Status Exam Patient Appearance: Fatigued and Disheveled Patient Orientation: Person Level of Consciousness: Awake Patient Behavior: Guarded, Passive, Suspicious and Poor Eye Contact Mood Description: Withdrawn and Depressed Affect Description: Withdrawn and Flat Patient Cognition Impaired: No Ability to Follow Directions: Poor Speech Pattern: Spontaneous Speech, Soft-Spoken, Poor Articulation and Long Pauses Memory Description: Remote Impaired Delusions: Paranoid Ideation and Present Thought Process: Distracted and Rumination Thought Content: positive for Circumstantial, positive for Perseveration, positive for Poverty of Content, positive for Preoccupation, positive for Thought Blocking (??) and positive for Disorganized Depressive Symptoms: Changes in Appetite, Hopelessness, Unhappiness, Low Self Esteem and Difficulty Concentrating Judgement: Poor Diagnostics Vital Signs (24Hr): Vital Signs - 24 hr 07/02/24 20:00 Temperature 98.2 F Pulse Rate 96 Respiratory Rate 14 Blood Pressure 117/57 L Pulse Oximetry 98 BMI result Body Mass Index 32.5 Labs 06/28/24 17:51 06/28/24 17:51 Imaging Radiology Impressions: ITS Impressions Chest X-Ray 06/28/24 20:45 IMPRESSION: *Low lung volumes; otherwise, no cardiopulmonary abnormalities identified. *Moderate convex rightward scoliosis of the thoracic spine. Electronically signed by: Ran Castaneda MD 06/29/2024 12:03 AM EST RP Head CT 06/28/24 20:53 IMPRESSION: 1. No acute intracranial pathology. 2. Mild cerebral volume loss and mild chronic microangiopathy. Electronically signed by: Brandon Smith MD 06/28/2024 11:49 PM EST RP Medications Medications Current Medications Acetaminophen (Acetaminophen 325 Mg Tablet) 650 mg PO Q6H PRN PRN Reason: Headache/Pain Mild Scale (1-3) Al Hydroxide/Mg Hydroxide (Magnesium Hydrox/Alum Hydrox 30 Ml Oral.Susp) 30 ml PO Q6H PRN PRN Reason: Heartburn/Nausea Atorvastatin Calcium (Atorvastatin Calcium 40 Mg Tablet) 40 mg PO DAILY [facility] Last Admin: 07/03/24 10:36 Dose: 40 mg Clozapine (Clozapine Odt 25 Mg Tab.Rapdis) 50 mg PO BEDTIME [facility] Last Admin: 07/02/24 20:30 Dose: 50 mg Empagliflozin (Empagliflozin 25 Mg Tablet) 25 mg PO DAILY [facility] Last Admin: 07/03/24 10:38 Dose: 25 mg Gabapentin (Gabapentin 400 Mg Capsule) 800 mg PO TID [facility] Last Admin: 07/03/24 15:50 Dose: 800 mg Hydroxyzine HCl (Hydroxyzine Hcl 25 Mg Tablet) 25 mg PO Q6H PRN PRN Reason: Anxiety Loperamide HCl (Loperamide Hcl 2 Mg Capsule) 2 mg PO Q6H PRN PRN Reason: Diarrhea Last Admin: 07/01/24 10:23 Dose: 2 mg Lorazepam (Lorazepam 1 Mg Tablet) 1 mg PO TID [facility] Last Admin: 07/03/24 15:50 Dose: 1 mg Magnesium Hydroxide (Milk Of Magnesia 30 Ml Oral.Susp) 30 ml PO DAILY PRN PRN Reason: Constipation Metformin HCl (Metformin Hcl 1,000 Mg Tablet) 1,000 mg PO BID [facility] Last Admin: 07/01/24 21:13 Dose: Not Given Metoprolol Succinate (Metoprolol Succinate Er 25 Mg Tab.Er.24h) 25 mg PO DAILY [facility]; Protocol Last Admin: 07/03/24 10:36 Dose: 25 mg Mirtazapine (Mirtazapine 15 Mg Tablet) 45 mg PO BEDTIME [facility] Last Admin: 07/02/24 20:31 Dose: 45 mg Nicotine Polacrilex (Nicotine Polacrilex 2 Mg Gum) 4 mg BUCCAL Q2H PRN PRN Reason: Nicotine Cravings Non-Formulary Medication (Dulaglutide [Trulicity]) 3 mg SUBCUT WE@0900 [facility] Olanzapine (Olanzapine Odt 10 Mg Tab.Rapdis) 5 mg TRANSLINGU Q4H PRN PRN Reason: anxiety/agitation Trazodone HCl (Trazodone Hcl 50 Mg Tablet) 50 mg PO BEDTIME MRX1 PRN PRN Reason: Insomnia Allergies Allergies Allergy/AdvReac Type Severity Reaction Status Date / Time haloperidol [From Haldol] Allergy Intermediate Agitated Verified 06/28/24 17:33 lithium Allergy Intermediate Agitated Verified 06/28/24 17:33 oxcarbazepine Allergy Unknown RASH Verified 06/28/24 17:33 [From TRILEPTAL] fluphenazine [From Prolixin] Allergy akathisia Verified 06/28/24 17:33 Assessment & Plan Assessment & Plan (1) Schizoaffective disorder: Status: Acute Code(s): F25.9 - Schizoaffective disorder, unspecified Plan 06/29: restart/continue discharge meds from most recent hospitalization. change to ODT what can be changed to ODT in the hopes that stomach complaint is driven by psychosis and will resolve with adequate neuroleptic and anxiolytic Tx. 06/30: apparently catatonic this morning. per RN, pt has not taken any medications since admission. will add ativan 2 mg TID, staff analyst to strongly and repeatedly encourage pt to take medication. apparently, this approach worked during most recent admission on M3 with similar presentation. 07/01: Started being compliant. More responsive. Will hold Glucophage due to diarrhea. Imodium. Continue other medications. 07/02: Increase Clozaril to 50 mg HS. DC ODT Clonazepam now that he can swallow OK. Lower Ativan to 1 mg TID. 07/03: Continue current plan. On 07/04 increase Clozaril to 100 mg. Reason for continued inpatient stay Substantial Risk for: rapid decompensation Time Spent With Patient Time: Total time managing care of this patient today ____ minutes.
[2024-07-03] MEDS: Mirtazapine 15 MG TABLET 45 MG PO (22:19)
[2024-07-03] MEDS: cloZAPine ODT 25 MG TAB.RAPDIS 50 MG PO (22:20)
[2024-07-04] MEDS: Gabapentin 400 MG CAPSULE 800 MG PO ×2 (09:03→15:11)
[2024-07-04] MEDS: LORazepam 1 MG TABLET PO ×2 (09:04→15:11)
[2024-07-04] MEDS: Empagliflozin 25 MG TABLET PO (09:04)
[2024-07-04] MEDS: Atorvastatin Calcium 40 MG TABLET PO (09:05)
[2024-07-04 09:46] VITALS: BP 99/57; PULSE 82
[2024-07-04] MEDS: Metoprolol Succinate ER 25 MG TAB.ER.24H PO (09:48)
--- NOTE | 2024-07-04 10:46 | HO.PSYCHPN ---
Subjective Subjective Date of Service: 07/04/24 Reason For Visit: psychosis Subjective Notes: Conditional Voluntary Healthcare Proxy: No Guardianship: No Medical Problems Affecting Mental Status: No Interim History: Isolative, in bed. Awakens easily, minimal interaction, yet appears alert and attentive to environment. Refuses to discuss his concerns today Medication Compliance: Intermittent Side effects from medications: No Attending Groups: No Review of Systems Acute medical concerns: No Medical Review of Systems: unchanged Review of Systems Review of Systems Yes Unobtainable due to mental status Mental Status Exam Mental Status Exam Patient Appearance: Fatigued and Disheveled Patient Orientation: Person Level of Consciousness: Awake Patient Behavior: Guarded, Passive, Suspicious and Poor Eye Contact Mood Description: Withdrawn and Depressed Affect Description: Withdrawn and Flat Patient Cognition Impaired: No Ability to Follow Directions: Poor Speech Pattern: Spontaneous Speech, Soft-Spoken, Poor Articulation and Long Pauses Memory Description: Remote Impaired Delusions: Paranoid Ideation and Present Thought Process: Distracted and Rumination Thought Content: positive for Circumstantial, positive for Perseveration, positive for Poverty of Content, positive for Preoccupation, positive for Thought Blocking (??) and positive for Disorganized Depressive Symptoms: Changes in Appetite, Hopelessness, Unhappiness, Low Self Esteem and Difficulty Concentrating Judgement: Poor Diagnostics Vital Signs (24Hr): Vital Signs - 24 hr 07/04/24 09:46 Pulse Rate 82 Blood Pressure 99/57 L BMI result Body Mass Index 32.5 Labs 06/28/24 17:51 06/28/24 17:51 Imaging Radiology Impressions: ITS Impressions Chest X-Ray 06/28/24 20:45 IMPRESSION: *Low lung volumes; otherwise, no cardiopulmonary abnormalities identified. *Moderate convex rightward scoliosis of the thoracic spine. Electronically signed by: Ran Castaneda MD 06/29/2024 12:03 AM EST RP Head CT 06/28/24 20:53 IMPRESSION: 1. No acute intracranial pathology. 2. Mild cerebral volume loss and mild chronic microangiopathy. Electronically signed by: Brandon Smith MD 06/28/2024 11:49 PM EST RP Medications Medications Current Medications Acetaminophen (Acetaminophen 325 Mg Tablet) 650 mg PO Q6H PRN PRN Reason: Headache/Pain Mild Scale (1-3) Al Hydroxide/Mg Hydroxide (Magnesium Hydrox/Alum Hydrox 30 Ml Oral.Susp) 30 ml PO Q6H PRN PRN Reason: Heartburn/Nausea Atorvastatin Calcium (Atorvastatin Calcium 40 Mg Tablet) 40 mg PO DAILY [facility] Last Admin: 07/04/24 09:05 Dose: 40 mg Clozapine (Clozapine Odt 25 Mg Tab.Rapdis) 50 mg PO BEDTIME [facility] Last Admin: 07/03/24 22:20 Dose: 50 mg Empagliflozin (Empagliflozin 25 Mg Tablet) 25 mg PO DAILY [facility] Last Admin: 07/04/24 09:04 Dose: 25 mg Gabapentin (Gabapentin 400 Mg Capsule) 800 mg PO TID [facility] Last Admin: 07/04/24 09:03 Dose: 800 mg Hydroxyzine HCl (Hydroxyzine Hcl 25 Mg Tablet) 25 mg PO Q6H PRN PRN Reason: Anxiety Loperamide HCl (Loperamide Hcl 2 Mg Capsule) 2 mg PO Q6H PRN PRN Reason: Diarrhea Last Admin: 07/01/24 10:23 Dose: 2 mg Lorazepam (Lorazepam 1 Mg Tablet) 1 mg PO TID [facility] Last Admin: 07/04/24 09:04 Dose: 1 mg Magnesium Hydroxide (Milk Of Magnesia 30 Ml Oral.Susp) 30 ml PO DAILY PRN PRN Reason: Constipation Metformin HCl (Metformin Hcl 1,000 Mg Tablet) 1,000 mg PO BID [facility] Last Admin: 07/01/24 21:13 Dose: Not Given Metoprolol Succinate (Metoprolol Succinate Er 25 Mg Tab.Er.24h) 25 mg PO DAILY [facility]; Protocol Last Admin: 07/04/24 09:48 Dose: 25 mg Mirtazapine (Mirtazapine 15 Mg Tablet) 45 mg PO BEDTIME [facility] Last Admin: 07/03/24 22:19 Dose: 45 mg Nicotine Polacrilex (Nicotine Polacrilex 2 Mg Gum) 4 mg BUCCAL Q2H PRN PRN Reason: Nicotine Cravings Non-Formulary Medication (Dulaglutide [Trulicity]) 3 mg SUBCUT WE@0900 [facility] Olanzapine (Olanzapine Odt 10 Mg Tab.Rapdis) 5 mg TRANSLINGU Q4H PRN PRN Reason: anxiety/agitation Trazodone HCl (Trazodone Hcl 50 Mg Tablet) 50 mg PO BEDTIME MRX1 PRN PRN Reason: Insomnia Allergies Allergies Allergy/AdvReac Type Severity Reaction Status Date / Time haloperidol [From Haldol] Allergy Intermediate Agitated Verified 06/28/24 17:33 lithium Allergy Intermediate Agitated Verified 06/28/24 17:33 oxcarbazepine Allergy Unknown RASH Verified 06/28/24 17:33 [From TRILEPTAL] fluphenazine [From Prolixin] Allergy akathisia Verified 06/28/24 17:33 Assessment & Plan Assessment & Plan (1) Schizoaffective disorder: Status: Acute Code(s): F25.9 - Schizoaffective disorder, unspecified Plan 06/29: restart/continue discharge meds from most recent hospitalization. change to ODT what can be changed to ODT in the hopes that stomach complaint is driven by psychosis and will resolve with adequate neuroleptic and anxiolytic Tx. 06/30: apparently catatonic this morning. per RN, pt has not taken any medications since admission. will add ativan 2 mg TID, field staff to strongly and repeatedly encourage pt to take medication. apparently, this approach worked during most recent admission on M3 with similar presentation. 07/01: Started being compliant. More responsive. Will hold Glucophage due to diarrhea. Imodium. Continue other medications. 07/02: Increase Clozaril to 50 mg HS. DC ODT Clonazepam now that he can swallow OK. Lower Ativan to 1 mg TID. 07/04: Increase Clozaril to 100 mg HS Reason for continued inpatient stay Substantial Risk for: rapid decompensation and med/psych decompensation Time Spent With Patient Time: Total time managing care of this patient today ____ minutes.
[2024-07-04 20:00] VITALS: BP 108/71; PULSE 106; RESP 16; TEMP 37.3; O2SAT 98
[2024-07-05 08:00] VITALS: RESP 16
[2024-07-05 14:54] LABS: Neut%MD 78.6 %; Neutrophils Absolute Auto 8.2 x10*3/uL (2.0-8.3); WBCANC 10.5 X10*3/uL
--- NOTE | 2024-07-05 17:39 | P.PNPSI_ITS ---
Subjective Subjective Date of Service: 07/05/24 Reason For Visit: psychosis Subjective Notes: Conditional Voluntary Healthcare Proxy: No Guardianship: No Medical Problems Affecting Mental Status: No Interim History: Refused meds last evening and this a.m. Spent much of the day laying on the kitchen floor. Depressed mood/affect, uncooperative, withdrawn, angry. Angry interactions with the team-finally did get up when he was told he was moved to a private room. Refused labs for Clozaril, then agreed. If pt continues to refuse meds this evening we will need to make a status change and file for Section Seven. Medication Compliance: No Side effects from medications: No Attending Groups: No Review of Systems Acute medical concerns: No Review of Systems Review of Systems Yes Unobtainable due to mental status Mental Status Exam Mental Status Exam Patient Appearance: Fatigued and Disheveled Patient Orientation: Person Level of Consciousness: Awake Patient Behavior: Guarded, Passive, Suspicious and Poor Eye Contact Mood Description: Withdrawn, Depressed and Angry Affect Description: Withdrawn, Angry and Flat Patient Cognition Impaired: No Ability to Follow Directions: Poor Speech Pattern: Spontaneous Speech, Soft-Spoken, Poor Articulation and Long Pauses Memory Description: Remote Impaired Delusions: Paranoid Ideation and Present Thought Process: Distracted, Rumination and Evasive Thought Content: positive for Circumstantial, positive for Perseveration, positive for Poverty of Content, positive for Preoccupation, positive for Thought Blocking (??) and positive for Disorganized Depressive Symptoms: Changes in Appetite, Hopelessness, Unhappiness, Low Self Esteem and Difficulty Concentrating Judgement: Poor Diagnostics Vital Signs (24Hr): Vital Signs - 24 hr 07/04/24 20:00 07/05/24 08:00 Temperature 99.1 F Pulse Rate 106 H Respiratory Rate 16 16 Blood Pressure 108/71 Pulse Oximetry 98 Oxygen Delivery Method Room Air BMI result Body Mass Index 32.5 Labs 06/28/24 17:51 06/28/24 17:51 Labs: Laboratory Results - last 48 hr 07/05/24 14:49 Absolute Neuts (auto) 8.2 Imaging Radiology Impressions: ITS Impressions Chest X-Ray 06/28/24 20:45 IMPRESSION: *Low lung volumes; otherwise, no cardiopulmonary abnormalities identified. *Moderate convex rightward scoliosis of the thoracic spine. Electronically signed by: Ran Castaneda MD 06/29/2024 12:03 AM EST RP Head CT 06/28/24 20:53 IMPRESSION: 1. No acute intracranial pathology. 2. Mild cerebral volume loss and mild chronic microangiopathy. Electronically signed by: Brandon Smith MD 06/28/2024 11:49 PM EST RP Medications Medications Current Medications Acetaminophen (Acetaminophen 325 Mg Tablet) 650 mg PO Q6H PRN PRN Reason: Headache/Pain Mild Scale (1-3) Al Hydroxide/Mg Hydroxide (Magnesium Hydrox/Alum Hydrox 30 Ml Oral.Susp) 30 ml PO Q6H PRN PRN Reason: Heartburn/Nausea Atorvastatin Calcium (Atorvastatin Calcium 40 Mg Tablet) 40 mg PO DAILY [facility] Last Admin: 07/05/24 09:50 Dose: Not Given Clozapine (Clozapine Odt 25 Mg Tab.Rapdis) 50 mg PO BEDTIME [facility] Empagliflozin (Empagliflozin 25 Mg Tablet) 25 mg PO DAILY [facility] Last Admin: 07/05/24 09:50 Dose: Not Given Gabapentin (Gabapentin 400 Mg Capsule) 800 mg PO TID [facility] Last Admin: 07/05/24 14:30 Dose: Not Given Hydroxyzine HCl (Hydroxyzine Hcl 25 Mg Tablet) 25 mg PO Q6H PRN PRN Reason: Anxiety Loperamide HCl (Loperamide Hcl 2 Mg Capsule) 2 mg PO Q6H PRN PRN Reason: Diarrhea Last Admin: 07/01/24 10:23 Dose: 2 mg Lorazepam (Lorazepam 1 Mg Tablet) 1 mg PO TID [facility] Last Admin: 07/05/24 14:31 Dose: Not Given Magnesium Hydroxide (Milk Of Magnesia 30 Ml Oral.Susp) 30 ml PO DAILY PRN PRN Reason: Constipation Metformin HCl (Metformin Hcl 1,000 Mg Tablet) 1,000 mg PO BID [facility] Last Admin: 07/01/24 21:13 Dose: Not Given Metoprolol Succinate (Metoprolol Succinate Er 25 Mg Tab.Er.24h) 25 mg PO DAILY [facility]; Protocol Last Admin: 07/05/24 09:50 Dose: Not Given Mirtazapine (Mirtazapine 15 Mg Tablet) 45 mg PO BEDTIME [facility] Last Admin: 07/04/24 22:46 Dose: Not Given Nicotine Polacrilex (Nicotine Polacrilex 2 Mg Gum) 4 mg BUCCAL Q2H PRN PRN Reason: Nicotine Cravings Non-Formulary Medication (Dulaglutide [Trulicity]) 3 mg SUBCUT WE@0900 [facility] Olanzapine (Olanzapine Odt 10 Mg Tab.Rapdis) 5 mg TRANSLINGU Q4H PRN PRN Reason: anxiety/agitation Trazodone HCl (Trazodone Hcl 50 Mg Tablet) 50 mg PO BEDTIME MRX1 PRN PRN Reason: Insomnia Allergies Allergies Allergy/AdvReac Type Severity Reaction Status Date / Time haloperidol [From Haldol] Allergy Intermediate Agitated Verified 06/28/24 17:33 lithium Allergy Intermediate Agitated Verified 06/28/24 17:33 oxcarbazepine Allergy Unknown RASH Verified 06/28/24 17:33 [From TRILEPTAL] fluphenazine [From Prolixin] Allergy akathisia Verified 06/28/24 17:33 Assessment & Plan Assessment & Plan (1) Schizoaffective disorder: Status: Acute Code(s): F25.9 - Schizoaffective disorder, unspecified Plan 06/29: restart/continue discharge meds from most recent hospitalization. change to ODT what can be changed to ODT in the hopes that stomach complaint is driven by psychosis and will resolve with adequate neuroleptic and anxiolytic Tx. 06/30: apparently catatonic this morning. per RN, pt has not taken any medications since admission. will add ativan 2 mg TID, staff nurse icu resource team to strongly and repeatedly encourage pt to take medication. apparently, this approach worked during most recent admission on M3 with similar presentation. 07/01: Started being compliant. More responsive. Will hold Glucophage due to diarrhea. Imodium. Continue other medications. 07/02: Increase Clozaril to 50 mg HS. DC ODT Clonazepam now that he can swallow OK. Lower Ativan to 1 mg TID. 07/03: Continue current plan. On 07/04 increase Clozaril to 100 mg. 07/05: Pt did agree to labs. If he refuses meds this evening will file Section Seven for consideration. Reason for continued inpatient stay Substantial Risk for: rapid decompensation and med/psych decompensation Time Spent With Patient Time: Total time managing care of this patient today ____ minutes.
[2024-07-06 08:00] VITALS: BP 119/74; PULSE 89; RESP 16; TEMP 36.6; O2SAT 96
[2024-07-06] MEDS: Atorvastatin Calcium 40 MG TABLET PO (08:34)
[2024-07-06] MEDS: Empagliflozin 25 MG TABLET PO (08:34)
[2024-07-06] MEDS: Metoprolol Succinate ER 25 MG TAB.ER.24H PO (08:35)
[2024-07-06] MEDS: LORazepam 1 MG TABLET PO (08:35)
[2024-07-06] MEDS: Gabapentin 400 MG CAPSULE 800 MG PO ×3 (08:35→22:12)
[2024-07-06 10:14] LABS: Creatinine Clr Calc Pharmacy 107.6; Estimated Glomerular Filt Rate > 60
[2024-07-06] MEDS: LORazepam 1 MG TABLET 2 MG PO ×2 (14:26→22:12)
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
[2024-07-06 21:00] VITALS: BP 117/72; PULSE 93; TEMP 36.3; O2SAT 99
[2024-07-06] MEDS: Mirtazapine 15 MG TABLET 45 MG PO (22:11)
[2024-07-06] MEDS: cloZAPine ODT 25 MG TAB.RAPDIS PO (22:12)
[2024-07-07 08:00] VITALS: BP 130/61; PULSE 103; RESP 16; TEMP 36.8; O2SAT 99
--- NOTE | 2024-07-07 09:50 | P.PNPSI_ITS ---
Subjective Subjective Date of Service: 07/07/24 Reason For Visit: psychosis Subjective Notes: Section 7 Healthcare Proxy: No Guardianship: No Medical Problems Affecting Mental Status: No Interim History: Pt approached tw to meet today. I am sorry, are you mad at me.? Discussed our worry and concern for pt and his current sx presentation. Pt acknowledges that something in community is wrong and bothering him, but I just don't want to talk about it now. I need to be here for a long time. I will tell the real estate processor that . Please do not let me go, they let me go quick the last time. I cannot do it anymore. I am finished not behaving, I promise you I will be on good behavior, I will not harm anyone, I will not hurt the computer, I will not be disrespectful. All of you tell me you think I am a good person, I am appreciative and I don't take this lightly. Pt reports needing help with menu, having constipation. That is enough for now. Asks that we manage these things for him. Medication Compliance: Yes Side effects from medications: No Attending Groups: No Review of Systems Acute medical concerns: No Not that he will discuss today. Medical Review of Systems: unchanged Review of Systems Review of Systems Constipation Mental Status Exam Mental Status Exam Patient Appearance: Fatigued and Disheveled Patient Orientation: Person, Place and Situation Level of Consciousness: Awake Patient Behavior: Talkative, Cooperative, Passive, Distractible, Isolative and Good Eye Contact Mood Description: Withdrawn, Depressed, Fearful and Sad Affect Description: Withdrawn, Depressed, Fearful, Angry and Flat Patient Cognition Impaired: No Ability to Follow Directions: Good Speech Pattern: Spontaneous Speech, Soft-Spoken and Long Pauses Memory Description: Remote Impaired Hallucinations: Auditory (appears to be responding) Delusions: Paranoid Ideation and Present Perceptual Disturbances: Depersonalization and Derealization Thought Process: Distracted, Rumination and Evasive Thought Content: positive for Circumstantial, positive for Perseveration, positive for Poverty of Content, positive for Preoccupation and positive for Thought Blocking (??) Depressive Symptoms: Increased Anxiety, Changes in Appetite, Hopelessness, Feelings of Guilt, Unhappiness, Low Self Esteem and Difficulty Concentrating Judgement: Fair Diagnostics Vital Signs (24Hr): Vital Signs - 24 hr 07/06/24 21:00 Temperature 97.3 F Pulse Rate 93 Blood Pressure 117/72 Pulse Oximetry 99 Oxygen Delivery Method Room Air BMI result Body Mass Index 32.5 Labs 06/28/24 17:51 07/06/24 09:38 Labs: Laboratory Results - last 48 hr 07/05/24 07/06/24 14:49 09:38 Absolute Neuts (auto) 8.2 Creatinine 1.07 Estim Creat Clear Calc 107.6 Estimated GFR > 60 Imaging Radiology Impressions: ITS Impressions Chest X-Ray 06/28/24 20:45 IMPRESSION: *Low lung volumes; otherwise, no cardiopulmonary abnormalities identified. *Moderate convex rightward scoliosis of the thoracic spine. Electronically signed by: Ran Castaneda MD 06/29/2024 12:03 AM EST RP Head CT 06/28/24 20:53 IMPRESSION: 1. No acute intracranial pathology. 2. Mild cerebral volume loss and mild chronic microangiopathy. Electronically signed by: Brandon Smith MD 06/28/2024 11:49 PM EST RP Medications Medications Current Medications Acetaminophen (Acetaminophen 325 Mg Tablet) 650 mg PO Q6H PRN PRN Reason: Headache/Pain Mild Scale (1-3) Al Hydroxide/Mg Hydroxide (Magnesium Hydrox/Alum Hydrox 30 Ml Oral.Susp) 30 ml PO Q6H PRN PRN Reason: Heartburn/Nausea Atorvastatin Calcium (Atorvastatin Calcium 40 Mg Tablet) 40 mg PO DAILY [facility] Last Admin: 07/06/24 08:34 Dose: 40 mg Clozapine (Clozapine Odt 25 Mg Tab.Rapdis) 25 mg PO BEDTIME [facility] Last Admin: 07/06/24 22:12 Dose: 25 mg Empagliflozin (Empagliflozin 25 Mg Tablet) 25 mg PO DAILY [facility] Last Admin: 07/06/24 08:34 Dose: 25 mg Gabapentin (Gabapentin 400 Mg Capsule) 800 mg PO TID [facility] Last Admin: 07/06/24 22:12 Dose: 800 mg Hydroxyzine HCl (Hydroxyzine Hcl 25 Mg Tablet) 25 mg PO Q6H PRN PRN Reason: Anxiety Loperamide HCl (Loperamide Hcl 2 Mg Capsule) 2 mg PO Q6H PRN PRN Reason: Diarrhea Last Admin: 07/01/24 10:23 Dose: 2 mg Lorazepam (Lorazepam 1 Mg Tablet) 2 mg PO TID [facility] Last Admin: 07/06/24 22:12 Dose: 2 mg Magnesium Hydroxide (Milk Of Magnesia 30 Ml Oral.Susp) 30 ml PO DAILY PRN PRN Reason: Constipation Metformin HCl (Metformin Hcl 1,000 Mg Tablet) 1,000 mg PO BID [facility] Last Admin: 07/01/24 21:13 Dose: Not Given Metoprolol Succinate (Metoprolol Succinate Er 25 Mg Tab.Er.24h) 25 mg PO DAILY [facility]; Protocol Last Admin: 07/06/24 08:35 Dose: 25 mg Mirtazapine (Mirtazapine 15 Mg Tablet) 45 mg PO BEDTIME [facility] Last Admin: 07/06/24 22:11 Dose: 45 mg Nicotine Polacrilex (Nicotine Polacrilex 2 Mg Gum) 4 mg BUCCAL Q2H PRN PRN Reason: Nicotine Cravings Non-Formulary Medication (Dulaglutide [Trulicity]) 3 mg SUBCUT WE@0900 [facility] Olanzapine (Olanzapine Odt 10 Mg Tab.Rapdis) 5 mg TRANSLINGU Q4H PRN PRN Reason: anxiety/agitation Trazodone HCl (Trazodone Hcl 50 Mg Tablet) 50 mg PO BEDTIME MRX1 PRN PRN Reason: Insomnia Allergies Allergies Allergy/AdvReac Type Severity Reaction Status Date / Time haloperidol [From Haldol] Allergy Intermediate Agitated Verified 06/28/24 17:33 lithium Allergy Intermediate Agitated Verified 06/28/24 17:33 oxcarbazepine Allergy Unknown RASH Verified 06/28/24 17:33 [From TRILEPTAL] fluphenazine [From Prolixin] Allergy akathisia Verified 06/28/24 17:33 Assessment & Plan Assessment & Plan (1) Schizoaffective disorder: Status: Acute Code(s): F25.9 - Schizoaffective disorder, unspecified Plan 06/29: restart/continue discharge meds from most recent hospitalization. change to ODT what can be changed to ODT in the hopes that stomach complaint is driven by psychosis and will resolve with adequate neuroleptic and anxiolytic Tx. 06/30: apparently catatonic this morning. per RN, pt has not taken any medications since admission. will add ativan 2 mg TID, wait staff to strongly and repeatedly encourage pt to take medication. apparently, this approach worked during most recent admission on M3 with similar presentation. 07/01: Started being compliant. More responsive. Will hold Glucophage due to diarrhea. Imodium. Continue other medications. 07/02: Increase Clozaril to 50 mg HS. DC ODT Clonazepam now that he can swallow OK. Lower Ativan to 1 mg TID. 07/03: Continue current plan. On 07/04 increase Clozaril to 100 mg. 07/05: Pt did agree to labs. If he refuses meds this evening will file Section Seven for consideration. 07/07: Lactulose 30 cc x 1 for pt report of constipation. Continue regime Support, offer encouragement with current stressor, encourage communication with team. Reason for continued inpatient stay Substantial Risk for: rapid decompensation Time Spent With Patient Time: Total time managing care of this patient today ____ minutes.
[2024-07-07 10:21] VITALS: BP 130/61; PULSE 103
[2024-07-07] MEDS: LORazepam 1 MG TABLET 2 MG PO ×3 (10:21→21:58)
[2024-07-07] MEDS: Atorvastatin Calcium 40 MG TABLET PO (10:21)
[2024-07-07] MEDS: Metoprolol Succinate ER 25 MG TAB.ER.24H PO (10:21)
[2024-07-07] MEDS: Empagliflozin 25 MG TABLET PO (10:21)
[2024-07-07] MEDS: Gabapentin 400 MG CAPSULE 800 MG PO ×3 (10:22→21:58)
[2024-07-07] MEDS: Lactulose 20 GM/30 ML SOLUTION 30 GM PO (15:24)
[2024-07-07 20:00] VITALS: BP 102/64; PULSE 91; RESP 20; TEMP 36.2; O2SAT 98
[2024-07-07] MEDS: cloZAPine ODT 25 MG TAB.RAPDIS PO (21:58)
[2024-07-07] MEDS: Mirtazapine 15 MG TABLET 45 MG PO (21:58)
[2024-07-08 08:09] VITALS: BP 94/55; PULSE 69; RESP 18; TEMP 36.2; O2SAT 98
[2024-07-08 09:35] VITALS: BP 154/89; PULSE 67
[2024-07-08] MEDS: LORazepam 1 MG TABLET 2 MG PO ×3 (09:35→20:43)
[2024-07-08] MEDS: Metoprolol Succinate ER 25 MG TAB.ER.24H PO (09:35)
[2024-07-08] MEDS: Gabapentin 400 MG CAPSULE 800 MG PO ×3 (09:35→20:44)
[2024-07-08] MEDS: Empagliflozin 25 MG TABLET PO (09:36)
[2024-07-08] MEDS: Atorvastatin Calcium 40 MG TABLET PO (09:36)
--- NOTE | 2024-07-08 10:17 | HO.PSYCHPN ---
Subjective Subjective Date of Service: 07/08/24 Reason For Visit: psychosis Subjective Notes: Section 7 Interim History: Patient was seen and discussed in rounds today. Records and plans were reviewed. He continues to be isolative with periods of being visible. He is anxious and preoccupied. Eating and sleeping adequately. No SI. No complaints or side effects. No changes were made today Review of Systems Review of Systems Yes all other systems are reviewed and are negative Mental Status Exam Mental Status Exam Narrative: In today's visit he is alert, oriented and pleasant. Normal speech. Little eye contact. Affect is constricted. He does have auditory hallucinations. Poverty of thought. No SI/HI. Judgment is marginal. Diagnostics Vital Signs (24Hr): Vital Signs - 24 hr 07/07/24 10:21 07/07/24 20:00 07/08/24 08:09 Temperature 97.2 F 97.2 F Pulse Rate 103 H 91 69 Respiratory Rate 20 18 Blood Pressure 130/61 102/64 94/55 L Pulse Oximetry 98 98 Oxygen Delivery Method Room Air Room Air 07/08/24 09:35 Temperature Pulse Rate 67 Respiratory Rate Blood Pressure 154/89 H Pulse Oximetry Oxygen Delivery Method BMI result Body Mass Index 32.5 Labs 06/28/24 17:51 07/06/24 09:38 Imaging Radiology Impressions: ITS Impressions Chest X-Ray 06/28/24 20:45 IMPRESSION: *Low lung volumes; otherwise, no cardiopulmonary abnormalities identified. *Moderate convex rightward scoliosis of the thoracic spine. Electronically signed by: Ran Castaneda MD 06/29/2024 12:03 AM EST RP Head CT 06/28/24 20:53 IMPRESSION: 1. No acute intracranial pathology. 2. Mild cerebral volume loss and mild chronic microangiopathy. Electronically signed by: Brandon Smith MD 06/28/2024 11:49 PM EST RP Medications Medications Current Medications Acetaminophen (Acetaminophen 325 Mg Tablet) 650 mg PO Q6H PRN PRN Reason: Headache/Pain Mild Scale (1-3) Al Hydroxide/Mg Hydroxide (Magnesium Hydrox/Alum Hydrox 30 Ml Oral.Susp) 30 ml PO Q6H PRN PRN Reason: Heartburn/Nausea Atorvastatin Calcium (Atorvastatin Calcium 40 Mg Tablet) 40 mg PO DAILY [facility] Last Admin: 07/08/24 09:36 Dose: 40 mg Clozapine (Clozapine Odt 25 Mg Tab.Rapdis) 25 mg PO BEDTIME [facility] Last Admin: 07/07/24 21:58 Dose: 25 mg Empagliflozin (Empagliflozin 25 Mg Tablet) 25 mg PO DAILY [facility] Last Admin: 07/08/24 09:36 Dose: 25 mg Gabapentin (Gabapentin 400 Mg Capsule) 800 mg PO TID [facility] Last Admin: 07/08/24 09:35 Dose: 800 mg Hydroxyzine HCl (Hydroxyzine Hcl 25 Mg Tablet) 25 mg PO Q6H PRN PRN Reason: Anxiety Loperamide HCl (Loperamide Hcl 2 Mg Capsule) 2 mg PO Q6H PRN PRN Reason: Diarrhea Last Admin: 07/01/24 10:23 Dose: 2 mg Lorazepam (Lorazepam 1 Mg Tablet) 2 mg PO TID [facility] Last Admin: 07/08/24 09:35 Dose: 2 mg Magnesium Hydroxide (Milk Of Magnesia 30 Ml Oral.Susp) 30 ml PO DAILY PRN PRN Reason: Constipation Metformin HCl (Metformin Hcl 1,000 Mg Tablet) 1,000 mg PO BID [facility] Last Admin: 07/01/24 21:13 Dose: Not Given Metoprolol Succinate (Metoprolol Succinate Er 25 Mg Tab.Er.24h) 25 mg PO DAILY [facility]; Protocol Last Admin: 07/08/24 09:35 Dose: 25 mg Mirtazapine (Mirtazapine 15 Mg Tablet) 45 mg PO BEDTIME [facility] Last Admin: 07/07/24 21:58 Dose: 45 mg Nicotine Polacrilex (Nicotine Polacrilex 2 Mg Gum) 4 mg BUCCAL Q2H PRN PRN Reason: Nicotine Cravings Olanzapine (Olanzapine Odt 10 Mg Tab.Rapdis) 5 mg TRANSLINGU Q4H PRN PRN Reason: anxiety/agitation Trazodone HCl (Trazodone Hcl 50 Mg Tablet) 50 mg PO BEDTIME MRX1 PRN PRN Reason: Insomnia Allergies Allergies Allergy/AdvReac Type Severity Reaction Status Date / Time haloperidol [From Haldol] Allergy Intermediate Agitated Verified 06/28/24 17:33 lithium Allergy Intermediate Agitated Verified 06/28/24 17:33 oxcarbazepine Allergy Unknown RASH Verified 06/28/24 17:33 [From TRILEPTAL] fluphenazine [From Prolixin] Allergy akathisia Verified 06/28/24 17:33 Assessment & Plan Assessment & Plan (1) Schizoaffective disorder: Status: Acute Code(s): F25.9 - Schizoaffective disorder, unspecified Plan 06/29: restart/continue discharge meds from most recent hospitalization. change to ODT what can be changed to ODT in the hopes that stomach complaint is driven by psychosis and will resolve with adequate neuroleptic and anxiolytic Tx. 06/30: apparently catatonic this morning. per RN, pt has not taken any medications since admission. will add ativan 2 mg TID, staff psychologist to strongly and repeatedly encourage pt to take medication. apparently, this approach worked during most recent admission on M3 with similar presentation. 07/01: Started being compliant. More responsive. Will hold Glucophage due to diarrhea. Imodium. Continue other medications. 07/02: Increase Clozaril to 50 mg HS. DC ODT Clonazepam now that he can swallow OK. Lower Ativan to 1 mg TID. 07/03: Continue current plan. On 07/04 increase Clozaril to 100 mg. 07/05: Pt did agree to labs. If he refuses meds this evening will file Section Seven for consideration. 07/07: Lactulose 30 cc x 1 for pt report of constipation. Continue regime Support, offer encouragement with current stressor, encourage communication with team. 07/08: Continue current regimen and plans for stabilization and medication management Reason for continued inpatient stay Substantial Risk for: med/psych decompensation Time Spent With Patient Time: Total time managing care of this patient today ____ minutes.
[2024-07-08 19:42] VITALS: BP 139/82; PULSE 89; RESP 18; TEMP 36.4; O2SAT 97
[2024-07-08] MEDS: cloZAPine ODT 25 MG TAB.RAPDIS PO (20:43)
[2024-07-08] MEDS: Mirtazapine 15 MG TABLET 45 MG PO (20:44)
[2024-07-09 08:24] VITALS: BP 100/53; PULSE 69; RESP 16; TEMP 36.3; O2SAT 97
[2024-07-09] MEDS: Gabapentin 400 MG CAPSULE 800 MG PO ×3 (08:28→21:05)
[2024-07-09] MEDS: LORazepam 1 MG TABLET 2 MG PO ×3 (08:29→21:06)
[2024-07-09] MEDS: Metoprolol Succinate ER 25 MG TAB.ER.24H PO (08:29)
[2024-07-09] MEDS: Atorvastatin Calcium 40 MG TABLET PO (08:29)
[2024-07-09] MEDS: Empagliflozin 25 MG TABLET PO (08:29)
--- NOTE | 2024-07-09 09:57 | P.PNPSI_ITS ---
Subjective Subjective Date of Service: 07/09/24 Reason For Visit: psychosis Subjective Notes: Section 7 Interim History: Patient was seen and discussed in rounds today. Records and plans were reviewed. He is mostly in his room, in bed. He did acknowledge me but did not want to talk. No reports of behavioral issues. No complaints. No dangerous behaviors. Eating adequately and sleeping excessively. No changes were made today Review of Systems Review of Systems Yes Unobtainable due to mental status Mental Status Exam Mental Status Exam Narrative: He was in bed but did not want to talk Diagnostics Vital Signs (24Hr): Vital Signs - 24 hr 07/08/24 19:42 07/09/24 08:24 Temperature 97.5 F 97.4 F Pulse Rate 89 69 Respiratory Rate 18 16 Blood Pressure 139/82 100/53 L Pulse Oximetry 97 97 Oxygen Delivery Method Room Air Room Air BMI result Body Mass Index 32.5 Labs 06/28/24 17:51 07/06/24 09:38 Imaging Radiology Impressions: ITS Impressions Chest X-Ray 06/28/24 20:45 IMPRESSION: *Low lung volumes; otherwise, no cardiopulmonary abnormalities identified. *Moderate convex rightward scoliosis of the thoracic spine. Electronically signed by: Ran Castaneda MD 06/29/2024 12:03 AM EST RP Head CT 06/28/24 20:53 IMPRESSION: 1. No acute intracranial pathology. 2. Mild cerebral volume loss and mild chronic microangiopathy. Electronically signed by: Brandon Smith MD 06/28/2024 11:49 PM EST RP Medications Medications Current Medications Acetaminophen (Acetaminophen 325 Mg Tablet) 650 mg PO Q6H PRN PRN Reason: Headache/Pain Mild Scale (1-3) Al Hydroxide/Mg Hydroxide (Magnesium Hydrox/Alum Hydrox 30 Ml Oral.Susp) 30 ml PO Q6H PRN PRN Reason: Heartburn/Nausea Atorvastatin Calcium (Atorvastatin Calcium 40 Mg Tablet) 40 mg PO DAILY [facility] Last Admin: 07/09/24 08:29 Dose: 40 mg Clozapine (Clozapine Odt 25 Mg Tab.Rapdis) 25 mg PO BEDTIME [facility] Last Admin: 07/08/24 20:43 Dose: 25 mg Empagliflozin (Empagliflozin 25 Mg Tablet) 25 mg PO DAILY [facility] Last Admin: 07/09/24 08:29 Dose: 25 mg Gabapentin (Gabapentin 400 Mg Capsule) 800 mg PO TID [facility] Last Admin: 07/09/24 08:28 Dose: 800 mg Hydroxyzine HCl (Hydroxyzine Hcl 25 Mg Tablet) 25 mg PO Q6H PRN PRN Reason: Anxiety Loperamide HCl (Loperamide Hcl 2 Mg Capsule) 2 mg PO Q6H PRN PRN Reason: Diarrhea Last Admin: 07/01/24 10:23 Dose: 2 mg Lorazepam (Lorazepam 1 Mg Tablet) 2 mg PO TID [facility] Last Admin: 07/09/24 08:29 Dose: 2 mg Magnesium Hydroxide (Milk Of Magnesia 30 Ml Oral.Susp) 30 ml PO DAILY PRN PRN Reason: Constipation Metformin HCl (Metformin Hcl 1,000 Mg Tablet) 1,000 mg PO BID [facility] Last Admin: 07/01/24 21:13 Dose: Not Given Metoprolol Succinate (Metoprolol Succinate Er 25 Mg Tab.Er.24h) 25 mg PO DAILY [facility]; Protocol Last Admin: 07/09/24 08:29 Dose: 25 mg Mirtazapine (Mirtazapine 15 Mg Tablet) 45 mg PO BEDTIME [facility] Last Admin: 07/08/24 20:44 Dose: 45 mg Nicotine Polacrilex (Nicotine Polacrilex 2 Mg Gum) 4 mg BUCCAL Q2H PRN PRN Reason: Nicotine Cravings Olanzapine (Olanzapine Odt 10 Mg Tab.Rapdis) 5 mg TRANSLINGU Q4H PRN PRN Reason: anxiety/agitation Trazodone HCl (Trazodone Hcl 50 Mg Tablet) 50 mg PO BEDTIME MRX1 PRN PRN Reason: Insomnia Allergies Allergies Allergy/AdvReac Type Severity Reaction Status Date / Time haloperidol [From Haldol] Allergy Intermediate Agitated Verified 06/28/24 17:33 lithium Allergy Intermediate Agitated Verified 06/28/24 17:33 oxcarbazepine Allergy Unknown RASH Verified 06/28/24 17:33 [From TRILEPTAL] fluphenazine [From Prolixin] Allergy akathisia Verified 06/28/24 17:33 Assessment & Plan Assessment & Plan (1) Schizoaffective disorder: Status: Acute Code(s): F25.9 - Schizoaffective disorder, unspecified Plan 06/29: restart/continue discharge meds from most recent hospitalization. change to ODT what can be changed to ODT in the hopes that stomach complaint is driven by psychosis and will resolve with adequate neuroleptic and anxiolytic Tx. 06/30: apparently catatonic this morning. per RN, pt has not taken any medications since admission. will add ativan 2 mg TID, staffing program manager to strongly and repeatedly encourage pt to take medication. apparently, this approach worked during most recent admission on M3 with similar presentation. 07/01: Started being compliant. More responsive. Will hold Glucophage due to diarrhea. Imodium. Continue other medications. 07/02: Increase Clozaril to 50 mg HS. DC ODT Clonazepam now that he can swallow OK. Lower Ativan to 1 mg TID. 07/03: Continue current plan. On 07/04 increase Clozaril to 100 mg. 07/05: Pt did agree to labs. If he refuses meds this evening will file Section Seven for consideration. 07/07: Lactulose 30 cc x 1 for pt report of constipation. Continue regime Support, offer encouragement with current stressor, encourage communication with team. 07/08: Continue current regimen and plans for stabilization and medication management 07/09: Continue current regimen and plans for stabilization and medication management Reason for continued inpatient stay Substantial Risk for: med/psych decompensation Time Spent With Patient Time: Total time managing care of this patient today ____ minutes.
[2024-07-09 20:00] VITALS: BP 129/58; PULSE 82; TEMP 36.9; O2SAT 97
[2024-07-09] MEDS: Mirtazapine 15 MG TABLET 45 MG PO (21:06)
[2024-07-09] MEDS: cloZAPine ODT 25 MG TAB.RAPDIS PO (21:06)
[2024-07-10 08:24] VITALS: BP 105/59; PULSE 86; TEMP 36.7; O2SAT 99
[2024-07-10] MEDS: LORazepam 1 MG TABLET 2 MG PO ×3 (08:56→21:36)
[2024-07-10] MEDS: Gabapentin 400 MG CAPSULE 800 MG PO ×3 (08:56→21:37)
[2024-07-10] MEDS: Empagliflozin 25 MG TABLET PO (08:56)
[2024-07-10] MEDS: Metoprolol Succinate ER 25 MG TAB.ER.24H PO (08:56)
[2024-07-10] MEDS: Atorvastatin Calcium 40 MG TABLET PO (08:57)
--- NOTE | 2024-07-10 16:13 | HO.PSYCHPN ---
Subjective Subjective Date of Service: 07/10/24 Reason For Visit: psychosis Subjective Notes: [facility] [employer] Proxy: No Guardianship: No Medical Problems Affecting Mental Status: No Interim History: Accepting of medicine and care. Some visability in milieu, quiet today. Not too engaged when we met. Discussed [place], court, Please do not send me out, I need to be here. Acknowledged, discussed with pt if there are issues which are on his mind or troubling to him that we could attempt to work on. He responds with silence and loss of eye contact. He reports he does not feel overmedicated. Discussed decreasing Lorazepam over the next few days and he agrees to try. Reports sleep and appetite are intact. Medication Compliance: Yes Side effects from medications: No Attending Groups: No Review of Systems Review of Systems Denies Mental Status Exam Mental Status Exam Patient Appearance: Fatigued and Disheveled Patient Orientation: Person, Place, Time and Situation Level of Consciousness: Awake and Alert Patient Behavior: Cooperative, Passive, Distractible, Isolative and Good Eye Contact Mood Description: Withdrawn, Depressed and Sad Affect Description: Withdrawn, Depressed and Flat Patient Cognition Impaired: No Ability to Follow Directions: Good Speech Pattern: Impoverished, Spontaneous Speech, Soft-Spoken and Long Pauses Memory Description: Remote Impaired Hallucinations: None (Denies) and Auditory (appears to be responding) Delusions: Present Perceptual Disturbances: Depersonalization and Derealization Thought Process: Distracted, Rumination and Evasive Thought Content: positive for Circumstantial, positive for Perseveration, positive for Poverty of Content, positive for Preoccupation and positive for Thought Blocking (??) Depressive Symptoms: Increased Anxiety, Hopelessness, Unhappiness, Low Self Esteem and Difficulty Concentrating Judgement: Poor Diagnostics Vital Signs (24Hr): Vital Signs - 24 hr 07/09/24 20:00 07/10/24 08:24 Temperature 98.5 F 98.1 F Pulse Rate 82 86 Blood Pressure 129/58 L 105/59 L Pulse Oximetry 97 99 Oxygen Delivery Method Room Air Room Air BMI result Body Mass Index 32.5 Labs 06/28/24 17:51 07/12/24 08:48 Imaging Radiology Impressions: ITS Impressions Chest X-Ray 06/28/24 20:45 IMPRESSION: *Low lung volumes; otherwise, no cardiopulmonary abnormalities identified. *Moderate convex rightward scoliosis of the thoracic spine. Electronically signed by: Ran Castaneda MD 06/29/2024 12:03 AM EST RP Head CT 06/28/24 20:53 IMPRESSION: 1. No acute intracranial pathology. 2. Mild cerebral volume loss and mild chronic microangiopathy. Electronically signed by: Brandon Smith MD 06/28/2024 11:49 PM EST RP Medications Medications Current Medications Acetaminophen (Acetaminophen 325 Mg Tablet) 650 mg PO Q6H PRN PRN Reason: Headache/Pain Mild Scale (1-3) Al Hydroxide/Mg Hydroxide (Magnesium Hydrox/Alum Hydrox 30 Ml Oral.Susp) 30 ml PO Q6H PRN PRN Reason: Heartburn/Nausea Atorvastatin Calcium (Atorvastatin Calcium 40 Mg Tablet) 40 mg PO DAILY [facility] Last Admin: 07/10/24 08:57 Dose: 40 mg Clozapine (Clozapine Odt 25 Mg Tab.Rapdis) 25 mg PO BEDTIME [facility] Last Admin: 07/09/24 21:06 Dose: 25 mg Empagliflozin (Empagliflozin 25 Mg Tablet) 25 mg PO DAILY [facility] Last Admin: 07/10/24 08:56 Dose: 25 mg Gabapentin (Gabapentin 400 Mg Capsule) 800 mg PO TID [facility] Last Admin: 07/10/24 16:10 Dose: 800 mg Hydroxyzine HCl (Hydroxyzine Hcl 25 Mg Tablet) 25 mg PO Q6H PRN PRN Reason: Anxiety Loperamide HCl (Loperamide Hcl 2 Mg Capsule) 2 mg PO Q6H PRN PRN Reason: Diarrhea Last Admin: 07/01/24 10:23 Dose: 2 mg Lorazepam (Lorazepam 1 Mg Tablet) 2 mg PO TID [facility] Last Admin: 07/10/24 16:10 Dose: 2 mg Magnesium Hydroxide (Milk Of Magnesia 30 Ml Oral.Susp) 30 ml PO DAILY PRN PRN Reason: Constipation Metformin HCl (Metformin Hcl 1,000 Mg Tablet) 1,000 mg PO BID [facility] Last Admin: 07/01/24 21:13 Dose: Not Given Metoprolol Succinate (Metoprolol Succinate Er 25 Mg Tab.Er.24h) 25 mg PO DAILY [facility]; Protocol Last Admin: 07/10/24 08:56 Dose: 25 mg Mirtazapine (Mirtazapine 15 Mg Tablet) 45 mg PO BEDTIME [facility] Last Admin: 07/09/24 21:06 Dose: 45 mg Nicotine Polacrilex (Nicotine Polacrilex 2 Mg Gum) 4 mg BUCCAL Q2H PRN PRN Reason: Nicotine Cravings Olanzapine (Olanzapine Odt 10 Mg Tab.Rapdis) 5 mg TRANSLINGU Q4H PRN PRN Reason: anxiety/agitation Trazodone HCl (Trazodone Hcl 50 Mg Tablet) 50 mg PO BEDTIME MRX1 PRN PRN Reason: Insomnia Allergies Allergies Allergy/AdvReac Type Severity Reaction Status Date / Time haloperidol [From Haldol] Allergy Intermediate Agitated Verified 06/28/24 17:33 lithium Allergy Intermediate Agitated Verified 06/28/24 17:33 oxcarbazepine Allergy Unknown RASH Verified 06/28/24 17:33 [From TRILEPTAL] fluphenazine [From Prolixin] Allergy akathisia Verified 06/28/24 17:33 Assessment & Plan Assessment & Plan (1) Schizoaffective disorder: Status: Acute Code(s): F25.9 - Schizoaffective disorder, unspecified Plan 06/29: restart/continue discharge meds from most recent hospitalization. change to ODT what can be changed to ODT in the hopes that stomach complaint is driven by psychosis and will resolve with adequate neuroleptic and anxiolytic Tx. 06/30: apparently catatonic this morning. per RN, pt has not taken any medications since admission. will add ativan 2 mg TID, staff electronic warfare officer to strongly and repeatedly encourage pt to take medication. apparently, this approach worked during most recent admission on M3 with similar presentation. 07/01: Started being compliant. More responsive. Will hold Glucophage due to diarrhea. Imodium. Continue other medications. 07/02: Increase Clozaril to 50 mg HS. DC ODT Clonazepam now that he can swallow OK. Lower Ativan to 1 mg TID. 07/03: Continue current plan. On 07/04 increase Clozaril to 100 mg. 07/05: Pt did agree to labs. If he refuses meds this evening will file [facility] for consideration. 07/07: Lactulose 30 cc x 1 for pt report of constipation. Continue regime Support, offer encouragement with current stressor, encourage communication with team. 07/08: Continue current regimen and plans for stabilization and medication management 07/09: Continue current regimen and plans for stabilization and medication management 07/10: Plan to titrate Clozapine and decrease Lorazepam this week, Pt agrees with this plan. Reason for continued inpatient stay Substantial Risk for: rapid decompensation Time Spent With Patient Time: Total time managing care of this patient today ____ minutes.
[2024-07-10 20:00] VITALS: BP 96/53; PULSE 92; TEMP 36.9; O2SAT 99
[2024-07-10] MEDS: Mirtazapine 15 MG TABLET 45 MG PO (21:36)
[2024-07-10] MEDS: cloZAPine ODT 25 MG TAB.RAPDIS PO (21:36)
--- NOTE | 2024-07-11 08:51 | HO.PSYCHPN ---
Subjective Subjective Date of Service: 07/11/24 Reason For Visit: psychosis Subjective Notes: [employer] Healthcare Proxy: No Guardianship: No Medical Problems Affecting Mental Status: No Interim History: Team reports more isolative today, meals in room, less milieu time, less interactive overall. Responds that he has no sx, no issues, however appears depressed, withdrawn, disconnected. Agrees to begin to make changes in Clozapine and Lorazepam. Medication Compliance: Yes Side effects from medications: No Attending Groups: No Review of Systems Review of Systems Denies Mental Status Exam Mental Status Exam Patient Appearance: Fatigued and Disheveled Patient Orientation: Person, Place, Time and Situation Level of Consciousness: Awake and Alert Patient Behavior: Cooperative, Passive, Distractible, Isolative and Good Eye Contact Mood Description: Withdrawn, Depressed and Sad Affect Description: Withdrawn, Depressed and Flat Patient Cognition Impaired: No Ability to Follow Directions: Good Speech Pattern: Impoverished, Spontaneous Speech, Soft-Spoken and Long Pauses Memory Description: Remote Impaired Hallucinations: None (Denies) and Auditory (appears to be responding) Delusions: Present Perceptual Disturbances: Depersonalization and Derealization Thought Process: Distracted, Rumination and Evasive Thought Content: positive for Circumstantial, positive for Perseveration, positive for Poverty of Content, positive for Preoccupation and positive for Thought Blocking (??) Depressive Symptoms: Increased Anxiety, Hopelessness, Unhappiness, Low Self Esteem and Difficulty Concentrating Judgement: Poor Diagnostics Vital Signs (24Hr): Vital Signs - 24 hr 07/10/24 20:00 Temperature 98.5 F Pulse Rate 92 Blood Pressure 96/53 L Pulse Oximetry 99 BMI result Body Mass Index 32.5 Labs 06/28/24 17:51 07/12/24 08:48 Imaging Radiology Impressions: ITS Impressions Chest X-Ray 06/28/24 20:45 IMPRESSION: *Low lung volumes; otherwise, no cardiopulmonary abnormalities identified. *Moderate convex rightward scoliosis of the thoracic spine. Electronically signed by: Ran Csataneda MD 06/29/2024 12:03 AM EST RP Head CT 06/28/24 20:53 IMPRESSION: 1. No acute intracranial pathology. 2. Mild cerebral volume loss and mild chronic microangiopathy. Electronically signed by: Brandon Smith MD 06/28/2024 11:49 PM EST RP Medications Medications Current Medications Acetaminophen (Acetaminophen 325 Mg Tablet) 650 mg PO Q6H PRN PRN Reason: Headache/Pain Mild Scale (1-3) Al Hydroxide/Mg Hydroxide (Magnesium Hydrox/Alum Hydrox 30 Ml Oral.Susp) 30 ml PO Q6H PRN PRN Reason: Heartburn/Nausea Atorvastatin Calcium (Atorvastatin Calcium 40 Mg Tablet) 40 mg PO DAILY [facility] Last Admin: 07/10/24 08:57 Dose: 40 mg Clozapine (Clozapine Odt 25 Mg Tab.Rapdis) 25 mg PO BEDTIME [facility] Last Admin: 07/10/24 21:36 Dose: 25 mg Empagliflozin (Empagliflozin 25 Mg Tablet) 25 mg PO DAILY [facility] Last Admin: 07/10/24 08:56 Dose: 25 mg Gabapentin (Gabapentin 400 Mg Capsule) 800 mg PO TID [facility] Last Admin: 07/10/24 21:37 Dose: 800 mg Hydroxyzine HCl (Hydroxyzine Hcl 25 Mg Tablet) 25 mg PO Q6H PRN PRN Reason: Anxiety Loperamide HCl (Loperamide Hcl 2 Mg Capsule) 2 mg PO Q6H PRN PRN Reason: Diarrhea Last Admin: 07/01/24 10:23 Dose: 2 mg Lorazepam (Lorazepam 1 Mg Tablet) 2 mg PO TID [facility] Last Admin: 07/10/24 21:36 Dose: 2 mg Magnesium Hydroxide (Milk Of Magnesia 30 Ml Oral.Susp) 30 ml PO DAILY PRN PRN Reason: Constipation Metformin HCl (Metformin Hcl 1,000 Mg Tablet) 1,000 mg PO BID [facility] Last Admin: 07/01/24 21:13 Dose: Not Given Metoprolol Succinate (Metoprolol Succinate Er 25 Mg Tab.Er.24h) 25 mg PO DAILY [facility]; Protocol Last Admin: 07/10/24 08:56 Dose: 25 mg Mirtazapine (Mirtazapine 15 Mg Tablet) 45 mg PO BEDTIME [facility] Last Admin: 07/10/24 21:36 Dose: 45 mg Nicotine Polacrilex (Nicotine Polacrilex 2 Mg Gum) 4 mg BUCCAL Q2H PRN PRN Reason: Nicotine Cravings Olanzapine (Olanzapine Odt 10 Mg Tab.Rapdis) 5 mg TRANSLINGU Q4H PRN PRN Reason: anxiety/agitation Trazodone HCl (Trazodone Hcl 50 Mg Tablet) 50 mg PO BEDTIME MRX1 PRN PRN Reason: Insomnia Allergies Allergies Allergy/AdvReac Type Severity Reaction Status Date / Time haloperidol [From Haldol] Allergy Intermediate Agitated Verified 06/28/24 17:33 lithium Allergy Intermediate Agitated Verified 06/28/24 17:33 oxcarbazepine Allergy Unknown RASH Verified 06/28/24 17:33 [From TRILEPTAL] fluphenazine [From Prolixin] Allergy akathisia Verified 06/28/24 17:33 Assessment & Plan Assessment & Plan (1) Schizoaffective disorder: Status: Acute Code(s): F25.9 - Schizoaffective disorder, unspecified Plan 06/29: restart/continue discharge meds from most recent hospitalization. change to ODT what can be changed to ODT in the hopes that stomach complaint is driven by psychosis and will resolve with adequate neuroleptic and anxiolytic Tx. 06/30: apparently catatonic this morning. per RN, pt has not taken any medications since admission. will add ativan 2 mg TID, medical staff assistant to strongly and repeatedly encourage pt to take medication. apparently, this approach worked during most recent admission on M3 with similar presentation. 07/01: Started being compliant. More responsive. Will hold Glucophage due to diarrhea. Imodium. Continue other medications. 07/02: Increase Clozaril to 50 mg HS. DC ODT Clonazepam now that he can swallow OK. Lower Ativan to 1 mg TID. 07/03: Continue current plan. On 07/04 increase Clozaril to 100 mg. 07/05: Pt did agree to labs. If he refuses meds this evening will file [facility] for consideration. 07/07: Lactulose 30 cc x 1 for pt report of constipation. Continue regime Support, offer encouragement with current stressor, encourage communication with team. 07/08: Continue current regimen and plans for stabilization and medication management 07/09: Continue current regimen and plans for stabilization and medication management 07/11: Increase Clozaril to 50 mg HS from 25 mg HS Decrease Lorazepam to 1.5 mg tid from [address] 07/13. Pt not wanting to talk of this today with tw. Reason for continued inpatient stay Substantial Risk for: inability to function and rapid decompensation Time Spent With Patient Time: Total time managing care of this patient today ____ minutes.
[2024-07-11 09:00] VITALS: BP 101/57; PULSE 85
[2024-07-11] MEDS: Metoprolol Succinate ER 25 MG TAB.ER.24H PO (09:00)
[2024-07-11] MEDS: Atorvastatin Calcium 40 MG TABLET PO (09:00)
[2024-07-11] MEDS: Empagliflozin 25 MG TABLET PO (09:00)
[2024-07-11] MEDS: LORazepam 1 MG TABLET 2 MG PO ×2 (09:00→14:46)
[2024-07-11] MEDS: Gabapentin 400 MG CAPSULE 800 MG PO ×3 (09:01→20:53)
[2024-07-11 09:33] VITALS: BP 101/57; PULSE 85; TEMP 36.4; O2SAT 99
[2024-07-11 20:00] VITALS: BP 100/55; PULSE 80; TEMP 36.4; O2SAT 99
[2024-07-11] MEDS: LORazepam 0.5 MG TABLET 1.5 MG PO (20:53)
[2024-07-11] MEDS: cloZAPine ODT 25 MG TAB.RAPDIS 50 MG PO (20:53)
[2024-07-11] MEDS: Mirtazapine 15 MG TABLET 45 MG PO (20:54)
[2024-07-12] MEDS: Metoprolol Succinate ER 25 MG TAB.ER.24H PO (08:55)
[2024-07-12] MEDS: LORazepam 0.5 MG TABLET 1.5 MG PO ×3 (08:55→21:57)
[2024-07-12] MEDS: Empagliflozin 25 MG TABLET PO (08:56)
[2024-07-12] MEDS: Atorvastatin Calcium 40 MG TABLET PO (08:56)
[2024-07-12] MEDS: Gabapentin 400 MG CAPSULE 800 MG PO ×3 (08:56→22:00)
[2024-07-12 09:07] LABS: Neutrophils Absolute Auto 3.3 x10*3/uL (2.0-8.3); WBCANC 6.8 X10*3/uL
[2024-07-12 09:24] LABS: Creatinine Clr Calc Pharmacy 135.4; Estimated Glomerular Filt Rate > 60
[2024-07-12 09:29] VITALS: BP 116/63; PULSE 80; RESP 16; TEMP 36.4; O2SAT 97
--- NOTE | 2024-07-12 09:46 | HO.PSYCHPN ---
Subjective Subjective Date of Service: 07/12/24 Reason For Visit: psychosis Subjective Notes: [employer] Healthcare Proxy: No Guardianship: No Medical Problems Affecting Mental Status: No Interim History: Discussed trial of an antidepressant. Pt agrees and says he does not think he is depressed. Discussed decrease in appetite, increase in isolation, increased time sleeping as possible sx. Worried about court, encouraged to meet with his claim attorney. I want to stay in the hospital. Asha Yadav MERA was able to meet with pt and his claim attorney where he was able to express this clearly. More isolative, withdrawn, poor intake, increase in sleep today. Able to eat a bit later in the day he reports. Denies pain, constipation. Medication Compliance: Yes Side effects from medications: No Attending Groups: No Review of Systems Acute medical concerns: No Medical Review of Systems: unchanged Review of Systems Review of Systems Denies Mental Status Exam Mental Status Exam Patient Appearance: Fatigued and Disheveled Patient Orientation: Person, Place, Time and Situation Level of Consciousness: Awake and Alert Patient Behavior: Cooperative, Passive, Distractible, Isolative and Good Eye Contact Mood Description: Withdrawn, Depressed and Sad Affect Description: Withdrawn, Depressed and Flat Patient Cognition Impaired: No Ability to Follow Directions: Good Speech Pattern: Impoverished, Spontaneous Speech, Soft-Spoken and Long Pauses Memory Description: Remote Impaired Hallucinations: None (Denies) and Auditory (appears to be responding) Delusions: Present Perceptual Disturbances: Depersonalization and Derealization Thought Process: Distracted, Rumination and Evasive Thought Content: positive for Circumstantial, positive for Perseveration, positive for Poverty of Content, positive for Preoccupation and positive for Thought Blocking (??) Depressive Symptoms: Increased Anxiety, Hopelessness, Unhappiness, Low Self Esteem and Difficulty Concentrating Judgement: Poor Diagnostics Vital Signs (24Hr): Vital Signs - 24 hr 07/11/24 20:00 07/12/24 09:29 Temperature 97.5 F 97.5 F Pulse Rate 80 80 Respiratory Rate 16 Blood Pressure 100/55 L 116/63 Pulse Oximetry 99 97 Oxygen Delivery Method Room Air BMI result Body Mass Index 32.5 Labs 06/28/24 17:51 07/12/24 08:48 Labs: Laboratory Results - last 48 hr 07/12/24 08:48 Absolute Neuts (auto) 3.3 Creatinine 0.85 Estim Creat Clear Calc 135.4 Estimated GFR > 60 Imaging Radiology Impressions: ITS Impressions Chest X-Ray 06/28/24 20:45 IMPRESSION: *Low lung volumes; otherwise, no cardiopulmonary abnormalities identified. *Moderate convex rightward scoliosis of the thoracic spine. Electronically signed by: Ran Castaneda MD 06/29/2024 12:03 AM EST RP Head CT 06/28/24 20:53 IMPRESSION: 1. No acute intracranial pathology. 2. Mild cerebral volume loss and mild chronic microangiopathy. Electronically signed by: Brandon Smith MD 06/28/2024 11:49 PM EST RP Medications Medications Current Medications Acetaminophen (Acetaminophen 325 Mg Tablet) 650 mg PO Q6H PRN PRN Reason: Headache/Pain Mild Scale (1-3) Al Hydroxide/Mg Hydroxide (Magnesium Hydrox/Alum Hydrox 30 Ml Oral.Susp) 30 ml PO Q6H PRN PRN Reason: Heartburn/Nausea Atorvastatin Calcium (Atorvastatin Calcium 40 Mg Tablet) 40 mg PO DAILY [facility] Last Admin: 07/12/24 08:56 Dose: 40 mg Clozapine (Clozapine Odt 25 Mg Tab.Rapdis) 50 mg PO BEDTIME [facility] Last Admin: 07/11/24 20:53 Dose: 50 mg Empagliflozin (Empagliflozin 25 Mg Tablet) 25 mg PO DAILY [facility] Last Admin: 07/12/24 08:56 Dose: 25 mg Gabapentin (Gabapentin 400 Mg Capsule) 800 mg PO TID [facility] Last Admin: 07/12/24 08:56 Dose: 800 mg Hydroxyzine HCl (Hydroxyzine Hcl 25 Mg Tablet) 25 mg PO Q6H PRN PRN Reason: Anxiety Loperamide HCl (Loperamide Hcl 2 Mg Capsule) 2 mg PO Q6H PRN PRN Reason: Diarrhea Last Admin: 07/01/24 10:23 Dose: 2 mg Lorazepam (Lorazepam 0.5 Mg Tablet) 1.5 mg PO TID [facility] Last Admin: 07/12/24 08:55 Dose: 1.5 mg Magnesium Hydroxide (Milk Of Magnesia 30 Ml Oral.Susp) 30 ml PO DAILY PRN PRN Reason: Constipation Metformin HCl (Metformin Hcl 1,000 Mg Tablet) 1,000 mg PO BID [facility] Last Admin: 07/01/24 21:13 Dose: Not Given Metoprolol Succinate (Metoprolol Succinate Er 25 Mg Tab.Er.24h) 25 mg PO DAILY [facility]; Protocol Last Admin: 07/12/24 08:55 Dose: 25 mg Mirtazapine (Mirtazapine 15 Mg Tablet) 45 mg PO BEDTIME [facility] Last Admin: 07/11/24 20:54 Dose: 45 mg Nicotine Polacrilex (Nicotine Polacrilex 2 Mg Gum) 4 mg BUCCAL Q2H PRN PRN Reason: Nicotine Cravings Olanzapine (Olanzapine Odt 10 Mg Tab.Rapdis) 5 mg TRANSLINGU Q4H PRN PRN Reason: anxiety/agitation Trazodone HCl (Trazodone Hcl 50 Mg Tablet) 50 mg PO BEDTIME MRX1 PRN PRN Reason: Insomnia Allergies Allergies Allergy/AdvReac Type Severity Reaction Status Date / Time haloperidol [From Haldol] Allergy Intermediate Agitated Verified 06/28/24 17:33 lithium Allergy Intermediate Agitated Verified 06/28/24 17:33 oxcarbazepine Allergy Unknown RASH Verified 06/28/24 17:33 [From TRILEPTAL] fluphenazine [From Prolixin] Allergy akathisia Verified 06/28/24 17:33 Assessment & Plan Assessment & Plan (1) Schizoaffective disorder: Status: Acute Code(s): F25.9 - Schizoaffective disorder, unspecified Plan 06/29: restart/continue discharge meds from most recent hospitalization. change to ODT what can be changed to ODT in the hopes that stomach complaint is driven by psychosis and will resolve with adequate neuroleptic and anxiolytic Tx. 06/30: apparently catatonic this morning. per RN, pt has not taken any medications since admission. will add ativan 2 mg TID, staffing assistant to strongly and repeatedly encourage pt to take medication. apparently, this approach worked during most recent admission on M3 with similar presentation. 07/01: Started being compliant. More responsive. Will hold Glucophage due to diarrhea. Imodium. Continue other medications. 07/02: Increase Clozaril to 50 mg HS. DC ODT Clonazepam now that he can swallow OK. Lower Ativan to 1 mg TID. 07/03: Continue current plan. On 07/04 increase Clozaril to 100 mg. 07/05: Pt did agree to labs. If he refuses meds this evening will file [facility] for consideration. 07/07: Lactulose 30 cc x 1 for pt report of constipation. Continue regime Support, offer encouragement with current stressor, encourage communication with team. 07/08: Continue current regimen and plans for stabilization and medication management 07/09: Continue current regimen and plans for stabilization and medication management 07/12: Lexapro 5 mg a.m. Reason for continued inpatient stay Substantial Risk for: rapid decompensation Time Spent With Patient Time: Total time managing care of this patient today ____ minutes.
[2024-07-12 20:00] VITALS: BP 103/58; PULSE 95; RESP 16; TEMP 36.9; O2SAT 98
[2024-07-12] MEDS: Mirtazapine 15 MG TABLET 45 MG PO (21:58)
[2024-07-12] MEDS: cloZAPine ODT 25 MG TAB.RAPDIS 50 MG PO (22:01)
[2024-07-13] MEDS: LORazepam 0.5 MG TABLET 1.5 MG PO ×3 (09:08→21:55)
[2024-07-13] MEDS: Atorvastatin Calcium 40 MG TABLET PO (09:08)
[2024-07-13] MEDS: Gabapentin 400 MG CAPSULE 800 MG PO ×3 (09:08→21:54)
[2024-07-13] MEDS: Empagliflozin 25 MG TABLET PO (09:08)
[2024-07-13] MEDS: Metoprolol Succinate ER 25 MG TAB.ER.24H PO (09:08)
[2024-07-13 09:23] VITALS: BP 119/59; PULSE 66; RESP 16; TEMP 36.6; O2SAT 96
[2024-07-13] MEDS: Escitalopram Oxalate 5 MG TABLET PO (09:33)
--- NOTE | 2024-07-13 10:50 | P.PNPSI_ITS ---
Subjective Subjective Date of Service: 07/13/24 Reason For Visit: psychosis Subjective Notes: Section 7 Healthcare Proxy: No Guardianship: No Medical Problems Affecting Mental Status: No Interim History: Continues to be withdrawn, isolative, in bed. Refuses to eat. Poor attention to ADL's Asked pt and team if we could try one of his Olanzapine prn's. He agreed. Team reports he was out of bed within an hour of taking a 5 mg dose and in the kitchen, not interacting or eating, but up. Will schedule dosing to see if this will help him. He agrees. Medication Compliance: Yes Side effects from medications: No Attending Groups: No Review of Systems Acute medical concerns: No Review of Systems Review of Systems denies Mental Status Exam Mental Status Exam Patient Appearance: Fatigued and Disheveled Patient Orientation: Person, Place, Time and Situation Level of Consciousness: Awake and Alert Patient Behavior: Cooperative, Passive, Distractible, Isolative and Good Eye Contact Mood Description: Withdrawn, Depressed and Sad Affect Description: Withdrawn, Depressed and Flat Patient Cognition Impaired: No Ability to Follow Directions: Good Speech Pattern: Impoverished, Spontaneous Speech, Soft-Spoken and Long Pauses Memory Description: Remote Impaired Hallucinations: None (Denies) and Auditory (appears to be responding) Delusions: Present Perceptual Disturbances: Depersonalization and Derealization Thought Process: Distracted, Rumination and Evasive Thought Content: positive for Circumstantial, positive for Perseveration, positive for Poverty of Content, positive for Preoccupation and positive for Thought Blocking (??) Depressive Symptoms: Increased Anxiety, Hopelessness, Unhappiness, Low Self Esteem and Difficulty Concentrating Judgement: Poor Diagnostics Vital Signs (24Hr): Vital Signs - 24 hr 07/12/24 20:00 07/13/24 09:23 Temperature 98.5 F 97.9 F Pulse Rate 95 66 Respiratory Rate 16 16 Blood Pressure 103/58 L 119/59 L Pulse Oximetry 98 96 Oxygen Delivery Method Room Air Room Air BMI result Body Mass Index 32.5 Labs 06/28/24 17:51 07/12/24 08:48 Labs: Laboratory Results - last 48 hr 07/12/24 08:48 Absolute Neuts (auto) 3.3 Creatinine 0.85 Estim Creat Clear Calc 135.4 Estimated GFR > 60 Imaging Radiology Impressions: ITS Impressions Chest X-Ray 06/28/24 20:45 IMPRESSION: *Low lung volumes; otherwise, no cardiopulmonary abnormalities identified. *Moderate convex rightward scoliosis of the thoracic spine. Electronically signed by: Ran Castaneda MD 06/29/2024 12:03 AM EST RP Head CT 06/28/24 20:53 IMPRESSION: 1. No acute intracranial pathology. 2. Mild cerebral volume loss and mild chronic microangiopathy. Electronically signed by: Brandon Smith MD 06/28/2024 11:49 PM EST RP Medications Medications Current Medications Acetaminophen (Acetaminophen 325 Mg Tablet) 650 mg PO Q6H PRN PRN Reason: Headache/Pain Mild Scale (1-3) Al Hydroxide/Mg Hydroxide (Magnesium Hydrox/Alum Hydrox 30 Ml Oral.Susp) 30 ml PO Q6H PRN PRN Reason: Heartburn/Nausea Atorvastatin Calcium (Atorvastatin Calcium 40 Mg Tablet) 40 mg PO DAILY [facility] Last Admin: 07/13/24 09:08 Dose: 40 mg Clozapine (Clozapine Odt 25 Mg Tab.Rapdis) 50 mg PO BEDTIME [facility] Last Admin: 07/12/24 22:01 Dose: 50 mg Empagliflozin (Empagliflozin 25 Mg Tablet) 25 mg PO DAILY [facility] Last Admin: 07/13/24 09:08 Dose: 25 mg Escitalopram Oxalate (Escitalopram Oxalate 5 Mg Tablet) 5 mg PO DAILY [facility] Last Admin: 07/13/24 09:33 Dose: 5 mg Gabapentin (Gabapentin 400 Mg Capsule) 800 mg PO TID [facility] Last Admin: 07/13/24 09:08 Dose: 800 mg Hydroxyzine HCl (Hydroxyzine Hcl 25 Mg Tablet) 25 mg PO Q6H PRN PRN Reason: Anxiety Loperamide HCl (Loperamide Hcl 2 Mg Capsule) 2 mg PO Q6H PRN PRN Reason: Diarrhea Last Admin: 07/01/24 10:23 Dose: 2 mg Lorazepam (Lorazepam 0.5 Mg Tablet) 1.5 mg PO TID [facility] Last Admin: 07/13/24 09:08 Dose: 1.5 mg Magnesium Hydroxide (Milk Of Magnesia 30 Ml Oral.Susp) 30 ml PO DAILY PRN PRN Reason: Constipation Metformin HCl (Metformin Hcl 1,000 Mg Tablet) 1,000 mg PO BID [facility] Last Admin: 07/01/24 21:13 Dose: Not Given Metoprolol Succinate (Metoprolol Succinate Er 25 Mg Tab.Er.24h) 25 mg PO DAILY [facility]; Protocol Last Admin: 07/13/24 09:08 Dose: 25 mg Mirtazapine (Mirtazapine 15 Mg Tablet) 45 mg PO BEDTIME [facility] Last Admin: 07/12/24 21:58 Dose: 45 mg Nicotine Polacrilex (Nicotine Polacrilex 2 Mg Gum) 4 mg BUCCAL Q2H PRN PRN Reason: Nicotine Cravings Olanzapine (Olanzapine Odt 10 Mg Tab.Rapdis) 5 mg TRANSLINGU Q4H PRN PRN Reason: anxiety/agitation Trazodone HCl (Trazodone Hcl 50 Mg Tablet) 50 mg PO BEDTIME MRX1 PRN PRN Reason: Insomnia Allergies Allergies Allergy/AdvReac Type Severity Reaction Status Date / Time haloperidol [From Haldol] Allergy Intermediate Agitated Verified 06/28/24 17:33 lithium Allergy Intermediate Agitated Verified 06/28/24 17:33 oxcarbazepine Allergy Unknown RASH Verified 06/28/24 17:33 [From TRILEPTAL] fluphenazine [From Prolixin] Allergy akathisia Verified 06/28/24 17:33 Assessment & Plan Assessment & Plan (1) Schizoaffective disorder: Status: Acute Code(s): F25.9 - Schizoaffective disorder, unspecified Plan 06/29: restart/continue discharge meds from most recent hospitalization. change to ODT what can be changed to ODT in the hopes that stomach complaint is driven by psychosis and will resolve with adequate neuroleptic and anxiolytic Tx. 06/30: apparently catatonic this morning. per RN, pt has not taken any medications since admission. will add ativan 2 mg TID, staff consultant to strongly and repeatedly encourage pt to take medication. apparently, this approach worked during most recent admission on M3 with similar presentation. 07/01: Started being compliant. More responsive. Will hold Glucophage due to diarrhea. Imodium. Continue other medications. 07/02: Increase Clozaril to 50 mg HS. DC ODT Clonazepam now that he can swallow OK. Lower Ativan to 1 mg TID. 07/03: Continue current plan. On 07/04 increase Clozaril to 100 mg. 07/05: Pt did agree to labs. If he refuses meds this evening will file Section Seven for consideration. 07/07: Lactulose 30 cc x 1 for pt report of constipation. Continue regime Support, offer encouragement with current stressor, encourage communication with team. 07/08: Continue current regimen and plans for stabilization and medication management 07/09: Continue current regimen and plans for stabilization and medication management 07/11: Increase Clozaril to 50 mg HS from 25 mg HS Decrease Lorazepam to 1.5 mg tid from [address] 07/13. Pt not wanting to talk of this today with tw. 07/13: Olanzapine 10 mg po bid Reason for continued inpatient stay Substantial Risk for: rapid decompensation Time Spent With Patient Time: Total time managing care of this patient today ____ minutes.
[2024-07-13] MEDS: OLANZapine ODT 10 MG TAB.RAPDIS 5 MG TRANSLINGU (12:13)
[2024-07-13 19:59] VITALS: BP 109/59; PULSE 69; RESP 18; TEMP 36.8; O2SAT 96
[2024-07-13] MEDS: cloZAPine ODT 25 MG TAB.RAPDIS 50 MG PO (21:54)
[2024-07-13] MEDS: Mirtazapine 15 MG TABLET 45 MG PO (21:55)
[2024-07-13] MEDS: OLANZapine ODT 10 MG TAB.RAPDIS TRANSLINGU (21:55)
[2024-07-14] MEDS: Empagliflozin 25 MG TABLET PO (09:13)
[2024-07-14 09:14] VITALS: BP 110/56; PULSE 84; TEMP 36.4; O2SAT 98
[2024-07-14] MEDS: Metoprolol Succinate ER 25 MG TAB.ER.24H PO (09:14)
[2024-07-14] MEDS: OLANZapine ODT 10 MG TAB.RAPDIS TRANSLINGU (09:14)
[2024-07-14] MEDS: LORazepam 0.5 MG TABLET 1.5 MG PO (09:14)
[2024-07-14] MEDS: Gabapentin 400 MG CAPSULE 800 MG PO (09:14)
[2024-07-14] MEDS: Atorvastatin Calcium 40 MG TABLET PO (09:14)
[2024-07-14] MEDS: Escitalopram Oxalate 5 MG TABLET PO (09:15)
--- NOTE | 2024-07-14 12:50 | HO.PSYCHPN ---
Subjective Subjective Date of Service: 07/14/24 Reason For Visit: psychosis Subjective Notes: Section 7 Healthcare Proxy: No Guardianship: No Medical Problems Affecting Mental Status: Yes (Refusing to eat, refusing ADL's) Interim History: Accepting medications Refusing food, fluids, not hungry Refusing ADL's Spending a good deal of time in bed. Minimal engagement in discussion attempted. Awake alert attentive yet withdrawn Medication Compliance: Yes Side effects from medications: Yes (??) Attending Groups: No Review of Systems Poor intake Review of Systems Review of Systems Pt denies Mental Status Exam Mental Status Exam Patient Appearance: Fatigued and Disheveled Patient Orientation: Person, Place, Time and Situation Level of Consciousness: Awake and Alert Patient Behavior: Cooperative, Passive, Distractible, Isolative and Good Eye Contact Mood Description: Withdrawn, Depressed and Sad Affect Description: Withdrawn, Depressed and Flat Patient Cognition Impaired: No Ability to Follow Directions: Good Speech Pattern: Impoverished, Spontaneous Speech, Soft-Spoken and Long Pauses Memory Description: Remote Impaired Hallucinations: None (Denies) and Auditory (appears to be responding) Delusions: Present Perceptual Disturbances: Depersonalization and Derealization Thought Process: Distracted, Rumination and Evasive Thought Content: positive for Circumstantial, positive for Perseveration, positive for Poverty of Content, positive for Preoccupation and positive for Thought Blocking (??) Depressive Symptoms: Increased Anxiety, Hopelessness, Unhappiness, Low Self Esteem and Difficulty Concentrating Judgement: Poor Diagnostics Vital Signs (24Hr): Vital Signs - 24 hr 07/13/24 19:59 07/14/24 09:14 07/14/24 09:14 Temperature 98.2 F 97.5 F Pulse Rate 69 84 84 Respiratory Rate 18 Blood Pressure 109/59 L 110/56 L 110/56 L Pulse Oximetry 96 98 Oxygen Delivery Method Room Air Room Air BMI result Body Mass Index 32.5 Labs 06/28/24 17:51 07/12/24 08:48 Imaging Radiology Impressions: ITS Impressions Chest X-Ray 06/28/24 20:45 IMPRESSION: *Low lung volumes; otherwise, no cardiopulmonary abnormalities identified. *Moderate convex rightward scoliosis of the thoracic spine. Electronically signed by: Ran Castaneda MD 06/29/2024 12:[address] 06/28/24 20:53 IMPRESSION: 1. No acute intracranial pathology. 2. Mild cerebral volume loss and mild chronic microangiopathy. Electronically signed by: Brandon Smith MD 06/28/2024 11:49 PM [facility] Medications Medications Current Medications Acetaminophen (Acetaminophen 325 Mg Tablet) 650 mg PO Q6H PRN PRN Reason: Headache/Pain Mild Scale (1-3) Al Hydroxide/Mg Hydroxide (Magnesium Hydrox/Alum Hydrox 30 Ml Oral.Susp) 30 ml PO Q6H PRN PRN Reason: Heartburn/Nausea Atorvastatin Calcium (Atorvastatin Calcium 40 Mg Tablet) 40 mg PO DAILY [facility] Last Admin: 07/14/24 09:14 Dose: 40 mg Clozapine (Clozapine Odt 25 Mg Tab.Rapdis) 50 mg PO BEDTIME [facility] Last Admin: 07/13/24 21:54 Dose: 50 mg Empagliflozin (Empagliflozin 25 Mg Tablet) 25 mg PO DAILY [facility] Last Admin: 07/14/24 09:13 Dose: 25 mg Escitalopram Oxalate (Escitalopram Oxalate 5 Mg Tablet) 5 mg PO DAILY [facility] Last Admin: 07/14/24 09:15 Dose: 5 mg Gabapentin (Gabapentin 400 Mg Capsule) 800 mg PO TID [facility] Last Admin: 07/14/24 09:14 Dose: 800 mg Hydroxyzine HCl (Hydroxyzine Hcl 25 Mg Tablet) 25 mg PO Q6H PRN PRN Reason: Anxiety Loperamide HCl (Loperamide Hcl 2 Mg Capsule) 2 mg PO Q6H PRN PRN Reason: Diarrhea Last Admin: 07/01/24 10:23 Dose: 2 mg Lorazepam (Lorazepam 0.5 Mg Tablet) 1.5 mg PO TID [facility] Last Admin: 07/14/24 09:14 Dose: 1.5 mg Magnesium Hydroxide (Milk Of Magnesia 30 Ml Oral.Susp) 30 ml PO DAILY PRN PRN Reason: Constipation Metformin HCl (Metformin Hcl 1,000 Mg Tablet) 1,000 mg PO BID [facility] Last Admin: 07/01/24 21:13 Dose: Not Given Metoprolol Succinate (Metoprolol Succinate Er 25 Mg Tab.Er.24h) 25 mg PO DAILY [facility]; Protocol Last Admin: 07/14/24 09:14 Dose: 25 mg Mirtazapine (Mirtazapine 15 Mg Tablet) 45 mg PO BEDTIME [facility] Last Admin: 07/13/24 21:55 Dose: 45 mg Nicotine Polacrilex (Nicotine Polacrilex 2 Mg Gum) 4 mg BUCCAL Q2H PRN PRN Reason: Nicotine Cravings Olanzapine (Olanzapine Odt 10 Mg Tab.Rapdis) 5 mg TRANSLINGU Q4H PRN PRN Reason: anxiety/agitation Last Admin: 07/13/24 12:13 Dose: 5 mg Olanzapine (Olanzapine Odt 10 Mg Tab.Rapdis) 10 mg TRANSLINGU BID [facility] Last Admin: 07/14/24 09:14 Dose: 10 mg Trazodone HCl (Trazodone Hcl 50 Mg Tablet) 50 mg PO BEDTIME MRX1 PRN PRN Reason: Insomnia Allergies Allergies Allergy/AdvReac Type Severity Reaction Status Date / Time haloperidol [From Haldol] Allergy Intermediate Agitated Verified 06/28/24 17:33 lithium Allergy Intermediate Agitated Verified 06/28/24 17:33 oxcarbazepine Allergy Unknown RASH Verified 06/28/24 17:33 [From TRILEPTAL] fluphenazine [From Prolixin] Allergy akathisia Verified 06/28/24 17:33 Assessment & Plan Assessment & Plan (1) Schizoaffective disorder: Status: Acute Code(s): F25.9 - Schizoaffective disorder, unspecified Plan 06/29: restart/continue discharge meds from most recent hospitalization. change to ODT what can be changed to ODT in the hopes that stomach complaint is driven by psychosis and will resolve with adequate neuroleptic and anxiolytic Tx. 06/30: apparently catatonic this morning. per RN, pt has not taken any medications since admission. will add ativan 2 mg TID, staff physical therapy assistant to strongly and repeatedly encourage pt to take medication. apparently, this approach worked during most recent admission on M3 with similar presentation. 07/01: Started being compliant. More responsive. Will hold Glucophage due to diarrhea. Imodium. Continue other medications. 07/02: Increase Clozaril to 50 mg HS. DC ODT Clonazepam now that he can swallow OK. Lower Ativan to 1 mg TID. 07/03: Continue current plan. On 07/04 increase Clozaril to 100 mg. 07/05: Pt did agree to labs. If he refuses meds this evening will file [facility] for consideration. 07/07: Lactulose 30 cc x 1 for pt report of constipation. Continue regime Support, offer encouragement with current stressor, encourage communication with team. 07/08: Continue current regimen and plans for stabilization and medication management 07/09: Continue current regimen and plans for stabilization and medication management 07/11: Increase Clozaril to 50 mg HS from 25 mg HS Decrease Lorazepam to 1.5 mg tid from [address] 07/13. Pt not wanting to talk of this today with tw. 07/13: Olanzapine 10 mg po bid 07/14/24: Decrease Lorazepam to 1 mg tid Intake/Output Reason for continued inpatient stay Substantial Risk for: med/psych decompensation Time Spent With Patient Time: Total time managing care of this patient today ____ minutes.
--- NOTE | 2024-07-14 20:32 | PC.NURSE ---
At the time of this writing, patient has refused to have his vital signs taken, refused his evening medications, and refused to participate in assessment.
[2024-07-15 09:39] VITALS: BP 126/57; PULSE 94; RESP 16; TEMP 36.9; O2SAT 95
--- NOTE | 2024-07-15 12:48 | HO.PSYCHPN ---
Subjective Subjective Date of Service: 07/15/24 Reason For Visit: psychosis Subjective Notes: Section 7 Healthcare Proxy: No Guardianship: No Medical Problems Affecting Mental Status: No Interim History: 48 yo off his medications, refusing to engage combative and at times threatens aggression- throwing things around room- refusing medication- Medication Compliance: No Side effects from medications: No Attending Groups: No Review of Systems Acute medical concerns: No Medical Review of Systems: unchanged Mental Status Exam Mental Status Exam Patient Appearance: Disheveled, Unkempt and Rigid Patient Orientation: Person Level of Consciousness: Awake, Restless and Inappropriate Patient Behavior: Belligerent, Resistive to Care, Combative, Isolative and Poor Eye Contact Mood Description: Hostile Affect Description: Labile Ability to Follow Directions: Poor Speech Pattern: Rambling, Mumbled and Loud Delusions: Present Thought Content: positive for Disorganized Depressive Symptoms: Increased Irritability Abnormal Motor Activity Signs and Symptoms: Psychomotor Retardation and Agitation Judgement: Poor Diagnostics Vital Signs (24Hr): Vital Signs - 24 hr 07/15/24 09:39 Temperature 98.5 F Pulse Rate 94 Respiratory Rate 16 Blood Pressure 126/57 L Pulse Oximetry 95 Oxygen Delivery Method Room Air BMI result Body Mass Index 32.5 Labs 06/28/24 17:51 07/12/24 08:48 Imaging Radiology Impressions: ITS Impressions Chest X-Ray 06/28/24 20:45 IMPRESSION: *Low lung volumes; otherwise, no cardiopulmonary abnormalities identified. *Moderate convex rightward scoliosis of the thoracic spine. Electronically signed by: Ran Castaneda MD 06/29/2024 12:03 AM EST RP Head CT 06/28/24 20:53 IMPRESSION: 1. No acute intracranial pathology. 2. Mild cerebral volume loss and mild chronic microangiopathy. Electronically signed by: Brandon Smith MD 06/28/2024 11:49 PM EST RP Medications Medications Current Medications Acetaminophen (Acetaminophen 325 Mg Tablet) 650 mg PO Q6H PRN PRN Reason: Headache/Pain Mild Scale (1-3) Al Hydroxide/Mg Hydroxide (Magnesium Hydrox/Alum Hydrox 30 Ml Oral.Susp) 30 ml PO Q6H PRN PRN Reason: Heartburn/Nausea Atorvastatin Calcium (Atorvastatin Calcium 40 Mg Tablet) 40 mg PO DAILY [facility] Last Admin: 07/15/24 09:59 Dose: Not Given Clozapine (Clozapine Odt 25 Mg Tab.Rapdis) 50 mg PO BEDTIME [facility] Last Admin: 07/14/24 20:33 Dose: Not Given Empagliflozin (Empagliflozin 25 Mg Tablet) 25 mg PO DAILY [facility] Last Admin: 07/15/24 09:59 Dose: Not Given Escitalopram Oxalate (Escitalopram Oxalate 5 Mg Tablet) 5 mg PO DAILY [facility] Last Admin: 07/15/24 09:59 Dose: Not Given Gabapentin (Gabapentin 400 Mg Capsule) 800 mg PO TID [facility] Last Admin: 07/15/24 10:00 Dose: Not Given Hydroxyzine HCl (Hydroxyzine Hcl 25 Mg Tablet) 25 mg PO Q6H PRN PRN Reason: Anxiety Loperamide HCl (Loperamide Hcl 2 Mg Capsule) 2 mg PO Q6H PRN PRN Reason: Diarrhea Last Admin: 07/01/24 10:23 Dose: 2 mg Lorazepam (Lorazepam 1 Mg Tablet) 1 mg PO TID [facility] Last Admin: 07/15/24 10:00 Dose: Not Given Magnesium Hydroxide (Milk Of Magnesia 30 Ml Oral.Susp) 30 ml PO DAILY PRN PRN Reason: Constipation Metformin HCl (Metformin Hcl 1,000 Mg Tablet) 1,000 mg PO BID [facility] Last Admin: 07/01/24 21:13 Dose: Not Given Metoprolol Succinate (Metoprolol Succinate Er 25 Mg Tab.Er.24h) 25 mg PO DAILY [facility]; Protocol Last Admin: 07/15/24 10:00 Dose: Not Given Mirtazapine (Mirtazapine 15 Mg Tablet) 45 mg PO BEDTIME [facility] Last Admin: 07/14/24 20:35 Dose: Not Given Nicotine Polacrilex (Nicotine Polacrilex 2 Mg Gum) 4 mg BUCCAL Q2H PRN PRN Reason: Nicotine Cravings Olanzapine (Olanzapine Odt 10 Mg Tab.Rapdis) 5 mg TRANSLINGU Q4H PRN PRN Reason: anxiety/agitation Last Admin: 07/13/24 12:13 Dose: 5 mg Olanzapine (Olanzapine Odt 10 Mg Tab.Rapdis) 10 mg TRANSLINGU BID [facility] Last Admin: 07/15/24 10:00 Dose: Not Given Trazodone HCl (Trazodone Hcl 50 Mg Tablet) 50 mg PO BEDTIME MRX1 PRN PRN Reason: Insomnia Allergies Allergies Allergy/AdvReac Type Severity Reaction Status Date / Time haloperidol [From Haldol] Allergy Intermediate Agitated Verified 06/28/24 17:33 lithium Allergy Intermediate Agitated Verified 06/28/24 17:33 oxcarbazepine Allergy Unknown RASH Verified 06/28/24 17:33 [From TRILEPTAL] fluphenazine [From Prolixin] Allergy akathisia Verified 06/28/24 17:33 Assessment & Plan Assessment & Plan (1) Schizoaffective disorder: Status: Acute Code(s): F25.9 - Schizoaffective disorder, unspecified Plan 06/29: restart/continue discharge meds from most recent hospitalization. change to ODT what can be changed to ODT in the hopes that stomach complaint is driven by psychosis and will resolve with adequate neuroleptic and anxiolytic Tx. 06/30: apparently catatonic this morning. per RN, pt has not taken any medications since admission. will add ativan 2 mg TID, staff physical therapist to strongly and repeatedly encourage pt to take medication. apparently, this approach worked during most recent admission on M3 with similar presentation. 07/01: Started being compliant. More responsive. Will hold Glucophage due to diarrhea. Imodium. Continue other medications. 07/02: Increase Clozaril to 50 mg HS. DC ODT Clonazepam now that he can swallow OK. Lower Ativan to 1 mg TID. 07/03: Continue current plan. On 07/04 increase Clozaril to 100 mg. 07/05: Pt did agree to labs. If he refuses meds this evening will file [facility] Seven for consideration. 07/07: Lactulose 30 cc x 1 for pt report of constipation. Continue regime Support, offer encouragement with current stressor, encourage communication with team. 07/08: Continue current regimen and plans for stabilization and medication management 07/09: Continue current regimen and plans for stabilization and medication management 07/11: Increase Clozaril to 50 mg HS from 25 mg HS Decrease Lorazepam to 1.5 mg tid from [address] 07/13. Pt not wanting to talk of this today with tw. 07/13: Olanzapine 10 mg po bid 07/14/24: Decrease Lorazepam to 1 mg tid Intake/Output 07/15/24 patient uncooperative, disorganized and labile behavior- refusing medications- had unit on lock down today- while nursing attempted to help patient stop screaming and throwing things in his room- Reason for continued inpatient stay Substantial Risk for: harm to self, harm to others, inability to function and rapid decompensation Time Spent With Patient Time: Total time managing care of this patient today ____ minutes.
[2024-07-16 09:41] VITALS: BP 134/79; PULSE 94; TEMP 36.4; O2SAT 98
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
[2024-07-16 19:57] VITALS: RESP 15
--- NOTE | 2024-07-17 15:46 | P.PNPSI_ITS ---
Subjective Subjective Date of Service: 07/17/24 Reason For Visit: psychosis Subjective Notes: Section 7 Healthcare Proxy: No Guardianship: No Medical Problems Affecting Mental Status: No Interim History: Very difficulty weekend with agitated catatonia-refused all meds, eating and drinking sparingly, refusing to engage, combative, threatening, throwing items, uncooperative, disorganized, labile, screams, throws items, sexual threats (team approaches with 2:1). Refuses ADL's. Court 07/27. Pt not speaking when seen today, awake, blinking, did take Ensure at lunch, refusing all team offers to help him. Medication Compliance: No Side effects from medications: No Attending Groups: No Review of Systems Review of Systems Yes Unobtainable due to mental status Mental Status Exam Mental Status Exam Patient Appearance: Fatigued, Disheveled, Inappropriate, Unkempt, Bizarre and Malodorous Patient Orientation: Person Level of Consciousness: Awake, Restless, Lethargic and Combative Patient Behavior: Guarded, Passive, Suspicious, Aggressive, Belligerent, Verbal Threats, Swearing, Anxious, Fearful, Resistive to Care, Avoidant, Combative, Fatigued, Distractible, Confused, Isolative, Uncooperative, Impulsive and Poor Eye Contact Mood Description: Hostile, Labile and Angry Affect Description: Hostile, Labile and Angry Patient Cognition Impaired: Yes Ability to Follow Directions: Poor Speech Pattern: Impoverished, Spontaneous Speech, Soft-Spoken, Loud, Includes Profanity and Long Pauses Memory Description: Remote Impaired Hallucinations: Auditory Delusions: Paranoid Ideation and Present Perceptual Disturbances: Depersonalization and Derealization Thought Process: Illogical, Distracted and Rumination Thought Content: positive for Circumstantial, positive for Perseveration, positive for Poverty of Content, positive for Preoccupation, positive for Thought Blocking, positive for Disorganized and positive for Evasive Depressive Symptoms: Diff. Making Decisions, Increased Irritability, Significant Weight Loss, Loss of Int. in Activity, Hopelessness, Isolating-Friends/Family, Increased Fatigue, Loss of Energy and Difficulty Concentrating Abnormal Motor Activity Signs and Symptoms: Restlessness Judgement: Poor Diagnostics Vital Signs (24Hr): Vital Signs - 24 hr 07/16/24 19:57 Respiratory Rate 15 BMI result Body Mass Index 32.5 Labs 06/28/24 17:51 07/12/24 08:48 Imaging Radiology Impressions: ITS Impressions Chest X-Ray 06/28/24 20:45 IMPRESSION: *Low lung volumes; otherwise, no cardiopulmonary abnormalities identified. *Moderate convex rightward scoliosis of the thoracic spine. Electronically signed by: Ran Castaneda MD 06/29/2024 12:03 AM EST RP Head CT 06/28/24 20:53 IMPRESSION: 1. No acute intracranial pathology. 2. Mild cerebral volume loss and mild chronic microangiopathy. Electronically signed by: Brandon Smith MD 06/28/2024 11:49 PM EST RP Medications Medications Current Medications Acetaminophen (Acetaminophen 325 Mg Tablet) 650 mg PO Q6H PRN PRN Reason: Headache/Pain Mild Scale (1-3) Al Hydroxide/Mg Hydroxide (Magnesium Hydrox/Alum Hydrox 30 Ml Oral.Susp) 30 ml PO Q6H PRN PRN Reason: Heartburn/Nausea Atorvastatin Calcium (Atorvastatin Calcium 40 Mg Tablet) 40 mg PO DAILY [facility] Last Admin: 07/17/24 12:04 Dose: Not Given Chlorpromazine HCl (Chlorpromazine Hcl 25 Mg Tablet) 25 mg PO TID [facility] Last Admin: 07/17/24 12:00 Dose: Not Given Empagliflozin (Empagliflozin 25 Mg Tablet) 25 mg PO DAILY [facility] Last Admin: 07/17/24 09:47 Dose: Not Given Escitalopram Oxalate (Escitalopram Oxalate 5 Mg Tablet) 5 mg PO DAILY [facility] Last Admin: 07/17/24 12:04 Dose: Not Given Gabapentin (Gabapentin 400 Mg Capsule) 800 mg PO TID [facility] Last Admin: 07/17/24 12:02 Dose: Not Given Hydroxyzine HCl (Hydroxyzine Hcl 25 Mg Tablet) 25 mg PO Q6H PRN PRN Reason: Anxiety Loperamide HCl (Loperamide Hcl 2 Mg Capsule) 2 mg PO Q6H PRN PRN Reason: Diarrhea Last Admin: 07/01/24 10:23 Dose: 2 mg Lorazepam (Lorazepam 1 Mg Tablet) 1 mg PO TID [facility] Last Admin: 07/17/24 12:02 Dose: Not Given Magnesium Hydroxide (Milk Of Magnesia 30 Ml Oral.Susp) 30 ml PO DAILY PRN PRN Reason: Constipation Metformin HCl (Metformin Hcl 1,000 Mg Tablet) 1,000 mg PO BID [facility] Last Admin: 07/01/24 21:13 Dose: Not Given Metoprolol Succinate (Metoprolol Succinate Er 25 Mg Tab.Er.24h) 25 mg PO DAILY [facility]; Protocol Last Admin: 07/17/24 09:47 Dose: Not Given Mirtazapine (Mirtazapine 15 Mg Tablet) 45 mg PO BEDTIME [facility] Last Admin: 07/16/24 21:30 Dose: Not Given Nicotine Polacrilex (Nicotine Polacrilex 2 Mg Gum) 4 mg BUCCAL Q2H PRN PRN Reason: Nicotine Cravings Olanzapine (Olanzapine Odt 10 Mg Tab.Rapdis) 5 mg TRANSLINGU Q4H PRN PRN Reason: anxiety/agitation Last Admin: 07/13/24 12:13 Dose: 5 mg Olanzapine (Olanzapine Odt 10 Mg Tab.Rapdis) 10 mg TRANSLINGU BID [facility] Last Admin: 07/17/24 12:02 Dose: Not Given Trazodone HCl (Trazodone Hcl 50 Mg Tablet) 50 mg PO BEDTIME MRX1 PRN PRN Reason: Insomnia Allergies Allergies Allergy/AdvReac Type Severity Reaction Status Date / Time haloperidol [From Haldol] Allergy Intermediate Agitated Verified 06/28/24 17:33 lithium Allergy Intermediate Agitated Verified 06/28/24 17:33 oxcarbazepine Allergy Unknown RASH Verified 06/28/24 17:33 [From TRILEPTAL] fluphenazine [From Prolixin] Allergy akathisia Verified 06/28/24 17:33 Assessment & Plan Assessment & Plan (1) Schizoaffective disorder: Status: Acute Code(s): F25.9 - Schizoaffective disorder, unspecified Plan 06/29: restart/continue discharge meds from most recent hospitalization. change to ODT what can be changed to ODT in the hopes that stomach complaint is driven by psychosis and will resolve with adequate neuroleptic and anxiolytic Tx. 06/30: apparently catatonic this morning. per RN, pt has not taken any medications since admission. will add ativan 2 mg TID, staffing consultant to strongly and repeatedly encourage pt to take medication. apparently, this approach worked during most recent admission on M3 with similar presentation. 07/01: Started being compliant. More responsive. Will hold Glucophage due to diarrhea. Imodium. Continue other medications. 07/02: Increase Clozaril to 50 mg HS. DC ODT Clonazepam now that he can swallow OK. Lower Ativan to 1 mg TID. 07/03: Continue current plan. On 07/04 increase Clozaril to 100 mg. 07/05: Pt did agree to labs. If he refuses meds this evening will file Section Seven for consideration. 07/07: Lactulose 30 cc x 1 for pt report of constipation. Continue regime Support, offer encouragement with current stressor, encourage communication with team. 07/08: Continue current regimen and plans for stabilization and medication management 07/09: Continue current regimen and plans for stabilization and medication management 07/11: Increase Clozaril to 50 mg HS from 25 mg HS Decrease Lorazepam to 1.5 mg tid from [address] 07/13. Pt not wanting to talk of this today with tw. 07/13: Olanzapine 10 mg po bid 07/14/24: Decrease Lorazepam to 1 mg tid Intake/Output 07/15/24 patient uncooperative, disorganized and labile behavior- refusing medications- had unit on lock down today- while nursing attempted to help patient stop screaming and throwing things in his room- 07/16 ? agitated catatonia- likely to need urgent ECT- if medically stable for it- and if court can be arranged soon enough- in any case will need medication soon- 07/17- ECT consult Increase Ativan to 2 mg tid Chlorpromazine 25 mg tid Reason for continued inpatient stay Substantial Risk for: harm to self, harm to others, inability to function, rapid decompensation and med/psych decompensation Time Spent With Patient Time: Total time managing care of this patient today ____ minutes.
[2024-07-17] MEDS: Gabapentin 400 MG CAPSULE 800 MG PO ×2 (17:38→21:32)
[2024-07-17] MEDS: Escitalopram Oxalate 5 MG TABLET PO (17:38)
[2024-07-17] MEDS: OLANZapine ODT 10 MG TAB.RAPDIS TRANSLINGU ×2 (17:39→21:32)
[2024-07-17] MEDS: chlorproMAZINE HCl 25 MG TABLET PO ×2 (17:41→21:32)
[2024-07-17] MEDS: LORazepam 1 MG TABLET PO (17:41)
[2024-07-17 20:00] VITALS: BP 127/71; PULSE 120; RESP 18; TEMP 36.2; O2SAT 96
[2024-07-17] MEDS: Mirtazapine 15 MG TABLET 45 MG PO (21:32)
[2024-07-17] MEDS: LORazepam 1 MG TABLET 2 MG PO (21:32)
[2024-07-18] MEDS: Empagliflozin 25 MG TABLET PO (14:15)
[2024-07-18] MEDS: Atorvastatin Calcium 40 MG TABLET PO (14:15)
[2024-07-18] MEDS: chlorproMAZINE HCl 25 MG TABLET PO ×2 (14:15→20:45)
[2024-07-18] MEDS: Gabapentin 400 MG CAPSULE 800 MG PO ×2 (14:15→20:45)
[2024-07-18] MEDS: LORazepam 1 MG TABLET 2 MG PO ×2 (14:15→20:44)
[2024-07-18] MEDS: OLANZapine ODT 10 MG TAB.RAPDIS TRANSLINGU ×2 (14:16→20:44)
[2024-07-18] MEDS: Escitalopram Oxalate 5 MG TABLET PO (14:16)
[2024-07-18 14:34] VITALS: BP 120/78; PULSE 115; RESP 16; TEMP 36.8; O2SAT 97
[2024-07-18] MEDS: Metoprolol Succinate ER 25 MG TAB.ER.24H PO (14:35)
--- NOTE | 2024-07-18 19:34 | P.PNPSI_ITS ---
Subjective Subjective Date of Service: 07/18/24 Reason For Visit: psychosis Subjective Notes: Section 7 Healthcare Proxy: No Guardianship: No Medical Problems Affecting Mental Status: No Interim History: Can we talk? Improved this afternoon-accepting medicine and food/fluid. Ambulating in the [place] with tw-interacting with team and peers. Discussed personal concerns with tw today-developmental milestone concerns. Medication Compliance: Yes Side effects from medications: No Attending Groups: No Review of Systems Acute medical concerns: No Medical Review of Systems: unchanged Review of Systems Review of Systems Denies Mental Status Exam Mental Status Exam Patient Appearance: Fatigued, Disheveled, Unkempt and Malodorous Patient Orientation: Person, Place and Situation Level of Consciousness: Alert Patient Behavior: Appropriate, Talkative, Cooperative and Good Eye Contact Mood Description: Depressed Affect Description: Flat Patient Cognition Impaired: No Ability to Follow Directions: Good Speech Pattern: Spontaneous Speech Memory Description: Episodic Impaired Hallucinations: None Delusions: Not Present Perceptual Disturbances: Depersonalization and Derealization Thought Process: Rumination Thought Content: positive for Circumstantial and positive for Perseveration Judgement: Fair Diagnostics Vital Signs (24Hr): Vital Signs - 24 hr 07/17/24 20:00 07/18/24 14:34 Temperature 97.1 F 98.2 F Pulse Rate 120 H 115 H Respiratory Rate 18 16 Blood Pressure 127/71 120/78 Pulse Oximetry 96 97 Oxygen Delivery Method Room Air Room Air BMI result Body Mass Index 32.5 Labs 06/28/24 17:51 07/12/24 08:48 Imaging Radiology Impressions: ITS Impressions Chest X-Ray 06/28/24 20:45 IMPRESSION: *Low lung volumes; otherwise, no cardiopulmonary abnormalities identified. *Moderate convex rightward scoliosis of the thoracic spine. Electronically signed by: Ran Castaneda MD 06/29/2024 12:03 AM EST RP Head CT 06/28/24 20:53 IMPRESSION: 1. No acute intracranial pathology. 2. Mild cerebral volume loss and mild chronic microangiopathy. Electronically signed by: Brandon Smith MD 06/28/2024 11:49 PM EST RP Medications Medications Current Medications Acetaminophen (Acetaminophen 325 Mg Tablet) 650 mg PO Q6H PRN PRN Reason: Headache/Pain Mild Scale (1-3) Al Hydroxide/Mg Hydroxide (Magnesium Hydrox/Alum Hydrox 30 Ml Oral.Susp) 30 ml PO Q6H PRN PRN Reason: Heartburn/Nausea Atorvastatin Calcium (Atorvastatin Calcium 40 Mg Tablet) 40 mg PO DAILY [facility] Last Admin: 07/18/24 14:15 Dose: 40 mg Chlorpromazine HCl (Chlorpromazine Hcl 25 Mg Tablet) 25 mg PO TID [facility] Last Admin: 07/18/24 14:15 Dose: 25 mg Empagliflozin (Empagliflozin 25 Mg Tablet) 25 mg PO DAILY [facility] Last Admin: 07/18/24 14:15 Dose: 25 mg Escitalopram Oxalate (Escitalopram Oxalate 5 Mg Tablet) 5 mg PO DAILY [facility] Last Admin: 07/18/24 14:16 Dose: 5 mg Gabapentin (Gabapentin 400 Mg Capsule) 800 mg PO TID [facility] Last Admin: 07/18/24 14:15 Dose: 800 mg Hydroxyzine HCl (Hydroxyzine Hcl 25 Mg Tablet) 25 mg PO Q6H PRN PRN Reason: Anxiety Loperamide HCl (Loperamide Hcl 2 Mg Capsule) 2 mg PO Q6H PRN PRN Reason: Diarrhea Last Admin: 07/01/24 10:23 Dose: 2 mg Lorazepam (Lorazepam 1 Mg Tablet) 2 mg PO TID [facility] Last Admin: 07/18/24 14:15 Dose: 2 mg Magnesium Hydroxide (Milk Of Magnesia 30 Ml Oral.Susp) 30 ml PO DAILY PRN PRN Reason: Constipation Metformin HCl (Metformin Hcl 1,000 Mg Tablet) 1,000 mg PO BID [facility] Last Admin: 07/01/24 21:13 Dose: Not Given Metoprolol Succinate (Metoprolol Succinate Er 25 Mg Tab.Er.24h) 25 mg PO DAILY [facility]; Protocol Last Admin: 07/18/24 14:35 Dose: 25 mg Mirtazapine (Mirtazapine 15 Mg Tablet) 45 mg PO BEDTIME [facility] Last Admin: 07/17/24 21:32 Dose: 45 mg Nicotine Polacrilex (Nicotine Polacrilex 2 Mg Gum) 4 mg BUCCAL Q2H PRN PRN Reason: Nicotine Cravings Olanzapine (Olanzapine Odt 10 Mg Tab.Rapdis) 5 mg TRANSLINGU Q4H PRN PRN Reason: anxiety/agitation Last Admin: 07/13/24 12:13 Dose: 5 mg Olanzapine (Olanzapine Odt 10 Mg Tab.Rapdis) 10 mg TRANSLINGU BID [facility] Last Admin: 07/18/24 14:16 Dose: 10 mg Trazodone HCl (Trazodone Hcl 50 Mg Tablet) 50 mg PO BEDTIME MRX1 PRN PRN Reason: Insomnia Allergies Allergies Allergy/AdvReac Type Severity Reaction Status Date / Time haloperidol [From Haldol] Allergy Intermediate Agitated Verified 06/28/24 17:33 lithium Allergy Intermediate Agitated Verified 06/28/24 17:33 oxcarbazepine Allergy Unknown RASH Verified 06/28/24 17:33 [From TRILEPTAL] fluphenazine [From Prolixin] Allergy akathisia Verified 06/28/24 17:33 Assessment & Plan Assessment & Plan (1) Schizoaffective disorder: Status: Acute Code(s): F25.9 - Schizoaffective disorder, unspecified Plan 06/29: restart/continue discharge meds from most recent hospitalization. change to ODT what can be changed to ODT in the hopes that stomach complaint is driven by psychosis and will resolve with adequate neuroleptic and anxiolytic Tx. 06/30: apparently catatonic this morning. per RN, pt has not taken any medications since admission. will add ativan 2 mg TID, catering staff member to strongly and repeatedly encourage pt to take medication. apparently, this approach worked during most recent admission on M3 with similar presentation. 07/01: Started being compliant. More responsive. Will hold Glucophage due to diarrhea. Imodium. Continue other medications. 07/02: Increase Clozaril to 50 mg HS. DC ODT Clonazepam now that he can swallow OK. Lower Ativan to 1 mg TID. 07/03: Continue current plan. On 07/04 increase Clozaril to 100 mg. 07/05: Pt did agree to labs. If he refuses meds this evening will file Section Seven for consideration. 07/07: Lactulose 30 cc x 1 for pt report of constipation. Continue regime Support, offer encouragement with current stressor, encourage communication with team. 07/08: Continue current regimen and plans for stabilization and medication management 07/09: Continue current regimen and plans for stabilization and medication management 07/11: Increase Clozaril to 50 mg HS from 25 mg HS Decrease Lorazepam to 1.5 mg tid from [address] 07/13. Pt not wanting to talk of this today with tw. 07/13: Olanzapine 10 mg po bid 07/14/24: Decrease Lorazepam to 1 mg tid Intake/Output 07/15/24 patient uncooperative, disorganized and labile behavior- refusing medications- had unit on lock down today- while nursing attempted to help patient stop screaming and throwing things in his room- 07/16 ? agitated catatonia- likely to need urgent ECT- if medically stable for it- and if court can be arranged soon enough- in any case will need medication soon- 07/17- ECT consult Increase Ativan to 2 mg tid Chlorpromazine 25 mg tid 07/18- Recompensated this afternoon, interactive, discussed his concerns about his developmental milestones. Waxing, Waning catatonia? Reason for continued inpatient stay Substantial Risk for: med/psych decompensation Time Spent With Patient Time: Total time managing care of this patient today ____ minutes.
[2024-07-18 20:00] VITALS: BP 118/64; PULSE 120; RESP 16; TEMP 36.6; O2SAT 97
[2024-07-18] MEDS: Mirtazapine 15 MG TABLET 45 MG PO (20:45)
[2024-07-19 08:00] VITALS: RESP 18
[2024-07-19] MEDS: LORazepam 1 MG TABLET 2 MG PO ×3 (09:23→21:10)
[2024-07-19] MEDS: Empagliflozin 25 MG TABLET PO (09:23)
[2024-07-19] MEDS: Escitalopram Oxalate 5 MG TABLET PO (09:23)
[2024-07-19] MEDS: OLANZapine ODT 10 MG TAB.RAPDIS TRANSLINGU ×2 (09:23→21:10)
[2024-07-19] MEDS: Gabapentin 400 MG CAPSULE 800 MG PO ×3 (09:23→21:10)
[2024-07-19] MEDS: chlorproMAZINE HCl 25 MG TABLET PO ×3 (09:23→21:10)
[2024-07-19] MEDS: Atorvastatin Calcium 40 MG TABLET PO (09:29)
--- NOTE | 2024-07-19 18:44 | HO.PSYCHPN ---
Subjective Subjective Date of Service: 07/19/24 Reason For Visit: psychosis Subjective Notes: Section 7 Healthcare Proxy: No Guardianship: No Medical Problems Affecting Mental Status: No Interim History: More isolative today, not wanting to meet or talk. Accepting medications, intake is poor again today Denies sx, Denies SI, HI, AH,VH In bed for most of the day, declines milieu activities. Medication Compliance: Yes Side effects from medications: No Attending Groups: No Review of Systems Acute medical concerns: No Medical Review of Systems: unchanged Review of Systems Review of Systems Denies Mental Status Exam Mental Status Exam Patient Appearance: Fatigued Patient Orientation: Person, Place, Time and Situation Level of Consciousness: Alert Patient Behavior: Guarded, Passive, Avoidant and Isolative Mood Description: Depressed Affect Description: Flat Patient Cognition Impaired: No Ability to Follow Directions: Fair Speech Pattern: Spontaneous Speech Memory Description: Intact Hallucinations: Auditory (??) Delusions: Present Perceptual Disturbances: Derealization Thought Process: Rumination Thought Content: positive for Circumstantial and positive for Perseveration Depressive Symptoms: Unhappiness Judgement: Poor Diagnostics Vital Signs (24Hr): Vital Signs - 24 hr 07/18/24 20:00 07/19/24 08:00 Temperature 97.9 F Pulse Rate 120 H Respiratory Rate 16 18 Blood Pressure 118/64 Pulse Oximetry 97 Oxygen Delivery Method Room Air BMI result Body Mass Index 32.5 Labs 06/28/24 17:51 07/12/24 08:48 Imaging Radiology Impressions: ITS Impressions Chest X-Ray 06/28/24 20:45 IMPRESSION: *Low lung volumes; otherwise, no cardiopulmonary abnormalities identified. *Moderate convex rightward scoliosis of the thoracic spine. Electronically signed by: Ran Castaneda MD 06/29/2024 12:03 AM EST RP Head CT 06/28/24 20:53 IMPRESSION: 1. No acute intracranial pathology. 2. Mild cerebral volume loss and mild chronic microangiopathy. Electronically signed by: Brandon Smith MD 06/28/2024 11:49 PM EST RP Medications Medications Current Medications Acetaminophen (Acetaminophen 325 Mg Tablet) 650 mg PO Q6H PRN PRN Reason: Headache/Pain Mild Scale (1-3) Al Hydroxide/Mg Hydroxide (Magnesium Hydrox/Alum Hydrox 30 Ml Oral.Susp) 30 ml PO Q6H PRN PRN Reason: Heartburn/Nausea Atorvastatin Calcium (Atorvastatin Calcium 40 Mg Tablet) 40 mg PO DAILY [facility] Last Admin: 07/19/24 09:29 Dose: 40 mg Chlorpromazine HCl (Chlorpromazine Hcl 25 Mg Tablet) 25 mg PO TID [facility] Last Admin: 07/19/24 15:52 Dose: 25 mg Empagliflozin (Empagliflozin 25 Mg Tablet) 25 mg PO DAILY [facility] Last Admin: 07/19/24 09:23 Dose: 25 mg Escitalopram Oxalate (Escitalopram Oxalate 5 Mg Tablet) 5 mg PO DAILY [facility] Last Admin: 07/19/24 09:23 Dose: 5 mg Gabapentin (Gabapentin 400 Mg Capsule) 800 mg PO TID [facility] Last Admin: 07/19/24 15:53 Dose: 800 mg Hydroxyzine HCl (Hydroxyzine Hcl 25 Mg Tablet) 25 mg PO Q6H PRN PRN Reason: Anxiety Loperamide HCl (Loperamide Hcl 2 Mg Capsule) 2 mg PO Q6H PRN PRN Reason: Diarrhea Last Admin: 07/01/24 10:23 Dose: 2 mg Lorazepam (Lorazepam 1 Mg Tablet) 2 mg PO TID [facility] Last Admin: 07/19/24 15:53 Dose: 2 mg Magnesium Hydroxide (Milk Of Magnesia 30 Ml Oral.Susp) 30 ml PO DAILY PRN PRN Reason: Constipation Metformin HCl (Metformin Hcl 1,000 Mg Tablet) 1,000 mg PO BID [facility] Last Admin: 07/01/24 21:13 Dose: Not Given Metoprolol Succinate (Metoprolol Succinate Er 25 Mg Tab.Er.24h) 25 mg PO DAILY [facility]; Protocol Last Admin: 07/19/24 09:30 Dose: Not Given Mirtazapine (Mirtazapine 15 Mg Tablet) 45 mg PO BEDTIME [facility] Last Admin: 07/18/24 20:45 Dose: 45 mg Nicotine Polacrilex (Nicotine Polacrilex 2 Mg Gum) 4 mg BUCCAL Q2H PRN PRN Reason: Nicotine Cravings Olanzapine (Olanzapine Odt 10 Mg Tab.Rapdis) 5 mg TRANSLINGU Q4H PRN PRN Reason: anxiety/agitation Last Admin: 07/13/24 12:13 Dose: 5 mg Olanzapine (Olanzapine Odt 10 Mg Tab.Rapdis) 10 mg TRANSLINGU BID [facility] Last Admin: 07/19/24 09:23 Dose: 10 mg Trazodone HCl (Trazodone Hcl 50 Mg Tablet) 50 mg PO BEDTIME MRX1 PRN PRN Reason: Insomnia Allergies Allergies Allergy/AdvReac Type Severity Reaction Status Date / Time haloperidol [From Haldol] Allergy Intermediate Agitated Verified 06/28/24 17:33 lithium Allergy Intermediate Agitated Verified 06/28/24 17:33 oxcarbazepine Allergy Unknown RASH Verified 06/28/24 17:33 [From TRILEPTAL] fluphenazine [From Prolixin] Allergy akathisia Verified 06/28/24 17:33 Assessment & Plan Assessment & Plan (1) Schizoaffective disorder: Status: Acute Code(s): F25.9 - Schizoaffective disorder, unspecified Plan 06/29: restart/continue discharge meds from most recent hospitalization. change to ODT what can be changed to ODT in the hopes that stomach complaint is driven by psychosis and will resolve with adequate neuroleptic and anxiolytic Tx. 06/30: apparently catatonic this morning. per RN, pt has not taken any medications since admission. will add ativan 2 mg TID, staff services manager to strongly and repeatedly encourage pt to take medication. apparently, this approach worked during most recent admission on M3 with similar presentation. 07/01: Started being compliant. More responsive. Will hold Glucophage due to diarrhea. Imodium. Continue other medications. 07/02: Increase Clozaril to 50 mg HS. DC ODT Clonazepam now that he can swallow OK. Lower Ativan to 1 mg TID. 07/03: Continue current plan. On 07/04 increase Clozaril to 100 mg. 07/05: Pt did agree to labs. If he refuses meds this evening will file Section Seven for consideration. 07/07: Lactulose 30 cc x 1 for pt report of constipation. Continue regime Support, offer encouragement with current stressor, encourage communication with team. 07/08: Continue current regimen and plans for stabilization and medication management 07/09: Continue current regimen and plans for stabilization and medication management 07/11: Increase Clozaril to 50 mg HS from 25 mg HS Decrease Lorazepam to 1.5 mg tid from [address] 07/13. Pt not wanting to talk of this today with tw. 07/13: Olanzapine 10 mg po bid 07/14/24: Decrease Lorazepam to 1 mg tid Intake/Output 07/15/24 patient uncooperative, disorganized and labile behavior- refusing medications- had unit on lock down today- while nursing attempted to help patient stop screaming and throwing things in his room- 07/16 ? agitated catatonia- likely to need urgent ECT- if medically stable for it- and if court can be arranged soon enough- in any case will need medication soon- 07/17- ECT consult Increase Ativan to 2 mg tid Chlorpromazine 25 mg tid 07/18- Recompensated this afternoon, interactive, discussed his concerns about his developmental milestones. Waxing, Waning catatonia? 07/19- Continue tx Reason for continued inpatient stay Substantial Risk for: rapid decompensation Time Spent With Patient Time: Total time managing care of this patient today ____ minutes.
[2024-07-19 20:00] VITALS: BP 104/57; PULSE 96; TEMP 36.7; O2SAT 97
[2024-07-19] MEDS: Mirtazapine 15 MG TABLET 45 MG PO (21:09)
[2024-07-20] MEDS: Gabapentin 400 MG CAPSULE 800 MG PO ×3 (09:56→22:10)
[2024-07-20] MEDS: Atorvastatin Calcium 40 MG TABLET PO (09:56)
[2024-07-20] MEDS: chlorproMAZINE HCl 25 MG TABLET PO ×3 (09:57→22:10)
[2024-07-20] MEDS: Empagliflozin 25 MG TABLET PO (09:57)
[2024-07-20] MEDS: OLANZapine ODT 10 MG TAB.RAPDIS TRANSLINGU ×2 (09:57→22:10)
[2024-07-20] MEDS: LORazepam 1 MG TABLET 2 MG PO ×3 (09:57→22:10)
[2024-07-20] MEDS: Escitalopram Oxalate 5 MG TABLET PO (09:57)
--- NOTE | 2024-07-20 09:57 | HO.PSYCHPN ---
Subjective Subjective Date of Service: 07/20/24 Reason For Visit: psychosis Interim History: Isolated. Limited interaction. Accepting medications, intake is poor again today Denies sx, Denies SI, HI, AH,VH In bed for most of the day, declines milieu activities. Review of Systems Review of Systems Denies Yes all other systems are reviewed and are negative and Unobtainable due to mental status Mental Status Exam Mental Status Exam Narrative: He was in bed but did not want to talk Patient Appearance: Fatigued Patient Orientation: Person, Place, Time and Situation Level of Consciousness: Alert Patient Behavior: Guarded, Passive, Avoidant and Isolative Mood Description: Depressed Affect Description: Flat Patient Cognition Impaired: No Ability to Follow Directions: Fair Speech Pattern: Spontaneous Speech Memory Description: Intact Diagnostics Vital Signs (24Hr): Vital Signs - 24 hr 07/19/24 20:00 Temperature 98.0 F Pulse Rate 96 Blood Pressure 104/57 L Pulse Oximetry 97 Oxygen Delivery Method Room Air BMI result Body Mass Index 32.5 Labs 06/28/24 17:51 07/12/24 08:48 Imaging Radiology Impressions: ITS Impressions Chest X-Ray 06/28/24 20:45 IMPRESSION: *Low lung volumes; otherwise, no cardiopulmonary abnormalities identified. *Moderate convex rightward scoliosis of the thoracic spine. Electronically signed by: Ran Castaneda MD 06/29/2024 12:03 AM EST RP Head CT 06/28/24 20:53 IMPRESSION: 1. No acute intracranial pathology. 2. Mild cerebral volume loss and mild chronic microangiopathy. Electronically signed by: Brandon Smith MD 06/28/2024 11:49 PM [facility] RP Medications Medications Current Medications Acetaminophen (Acetaminophen 325 Mg Tablet) 650 mg PO Q6H PRN PRN Reason: Headache/Pain Mild Scale (1-3) Al Hydroxide/Mg Hydroxide (Magnesium Hydrox/Alum Hydrox 30 Ml Oral.Susp) 30 ml PO Q6H PRN PRN Reason: Heartburn/Nausea Atorvastatin Calcium (Atorvastatin Calcium 40 Mg Tablet) 40 mg PO DAILY [facility] Last Admin: 07/19/24 09:29 Dose: 40 mg Chlorpromazine HCl (Chlorpromazine Hcl 25 Mg Tablet) 25 mg PO TID [facility] Last Admin: 07/19/24 21:10 Dose: 25 mg Empagliflozin (Empagliflozin 25 Mg Tablet) 25 mg PO DAILY [facility] Last Admin: 07/19/24 09:23 Dose: 25 mg Escitalopram Oxalate (Escitalopram Oxalate 5 Mg Tablet) 5 mg PO DAILY [facility] Last Admin: 07/19/24 09:23 Dose: 5 mg Gabapentin (Gabapentin 400 Mg Capsule) 800 mg PO TID [facility] Last Admin: 07/19/24 21:10 Dose: 800 mg Hydroxyzine HCl (Hydroxyzine Hcl 25 Mg Tablet) 25 mg PO Q6H PRN PRN Reason: Anxiety Loperamide HCl (Loperamide Hcl 2 Mg Capsule) 2 mg PO Q6H PRN PRN Reason: Diarrhea Last Admin: 07/01/24 10:23 Dose: 2 mg Lorazepam (Lorazepam 1 Mg Tablet) 2 mg PO TID [facility] Last Admin: 07/19/24 21:10 Dose: 2 mg Magnesium Hydroxide (Milk Of Magnesia 30 Ml Oral.Susp) 30 ml PO DAILY PRN PRN Reason: Constipation Metformin HCl (Metformin Hcl 1,000 Mg Tablet) 1,000 mg PO BID [facility] Last Admin: 07/01/24 21:13 Dose: Not Given Metoprolol Succinate (Metoprolol Succinate Er 25 Mg Tab.Er.24h) 25 mg PO DAILY [facility]; Protocol Last Admin: 07/19/24 09:30 Dose: Not Given Mirtazapine (Mirtazapine 15 Mg Tablet) 45 mg PO BEDTIME [facility] Last Admin: 07/19/24 21:09 Dose: 45 mg Nicotine Polacrilex (Nicotine Polacrilex 2 Mg Gum) 4 mg BUCCAL Q2H PRN PRN Reason: Nicotine Cravings Olanzapine (Olanzapine Odt 10 Mg Tab.Rapdis) 5 mg TRANSLINGU Q4H PRN PRN Reason: anxiety/agitation Last Admin: 07/13/24 12:13 Dose: 5 mg Olanzapine (Olanzapine Odt 10 Mg Tab.Rapdis) 10 mg TRANSLINGU BID [facility] Last Admin: 07/19/24 21:10 Dose: 10 mg Trazodone HCl (Trazodone Hcl 50 Mg Tablet) 50 mg PO BEDTIME MRX1 PRN PRN Reason: Insomnia Allergies Allergies Allergy/AdvReac Type Severity Reaction Status Date / Time haloperidol [From Haldol] Allergy Intermediate Agitated Verified 06/28/24 17:33 lithium Allergy Intermediate Agitated Verified 06/28/24 17:33 oxcarbazepine Allergy Unknown RASH Verified 06/28/24 17:33 [From TRILEPTAL] fluphenazine [From Prolixin] Allergy akathisia Verified 06/28/24 17:33 Assessment & Plan Assessment & Plan (1) Schizoaffective disorder: Status: Acute Code(s): F25.9 - Schizoaffective disorder, unspecified Plan 06/29: restart/continue discharge meds from most recent hospitalization. change to ODT what can be changed to ODT in the hopes that stomach complaint is driven by psychosis and will resolve with adequate neuroleptic and anxiolytic Tx. 06/30: apparently catatonic this morning. per RN, pt has not taken any medications since admission. will add ativan 2 mg TID, staffing administrator to strongly and repeatedly encourage pt to take medication. apparently, this approach worked during most recent admission on M3 with similar presentation. 07/01: Started being compliant. More responsive. Will hold Glucophage due to diarrhea. Imodium. Continue other medications. 07/02: Increase Clozaril to 50 mg HS. DC ODT Clonazepam now that he can swallow OK. Lower Ativan to 1 mg TID. 07/03: Continue current plan. On 07/04 increase Clozaril to 100 mg. 07/05: Pt did agree to labs. If he refuses meds this evening will file Section Seven for consideration. 07/07: Lactulose 30 cc x 1 for pt report of constipation. Continue regime Support, offer encouragement with current stressor, encourage communication with team. 07/08: Continue current regimen and plans for stabilization and medication management 07/09: Continue current regimen and plans for stabilization and medication management 07/11: Increase Clozaril to 50 mg HS from 25 mg HS Decrease Lorazepam to 1.5 mg tid from [address] 07/13. Pt not wanting to talk of this today with tw. 07/13: Olanzapine 10 mg po bid 07/14/24: Decrease Lorazepam to 1 mg tid Intake/Output 07/15/24 patient uncooperative, disorganized and labile behavior- refusing medications- had unit on lock down today- while nursing attempted to help patient stop screaming and throwing things in his room- 07/16 ? agitated catatonia- likely to need urgent ECT- if medically stable for it- and if court can be arranged soon enough- in any case will need medication soon- 07/17- ECT consult Increase Ativan to 2 mg tid Chlorpromazine 25 mg tid 07/18- Recompensated this afternoon, interactive, discussed his concerns about his developmental milestones. Waxing, Waning catatonia? 07/19- Continue tx 07/20: Continue current management and treatment plan. Remains isolated, with waxing and waning symptoms. Med compliant with modest effect. Reason for continued inpatient stay Substantial Risk for: harm to self, inability to function, rapid decompensation and med/psych decompensation Time Spent With Patient Time: Total time managing care of this patient today ____ minutes.
[2024-07-20 10:06] VITALS: BP 129/63; PULSE 101; TEMP 36.7; O2SAT 100
[2024-07-20] MEDS: Metoprolol Succinate ER 25 MG TAB.ER.24H PO (10:07)
[2024-07-20 20:00] VITALS: RESP 20
[2024-07-20] MEDS: Mirtazapine 15 MG TABLET 45 MG PO (22:10)
[2024-07-21] MEDS: Gabapentin 400 MG CAPSULE 800 MG PO ×3 (10:55→21:27)
[2024-07-21 10:56] VITALS: BP 132/88; PULSE 92
[2024-07-21] MEDS: Metoprolol Succinate ER 25 MG TAB.ER.24H PO (10:56)
[2024-07-21] MEDS: OLANZapine ODT 10 MG TAB.RAPDIS TRANSLINGU ×2 (10:56→21:27)
[2024-07-21] MEDS: chlorproMAZINE HCl 25 MG TABLET PO ×2 (10:56→16:19)
[2024-07-21] MEDS: LORazepam 1 MG TABLET 2 MG PO ×3 (10:56→21:27)
[2024-07-21] MEDS: Atorvastatin Calcium 40 MG TABLET PO (10:57)
[2024-07-21] MEDS: Empagliflozin 25 MG TABLET PO (10:57)
[2024-07-21] MEDS: Escitalopram Oxalate 5 MG TABLET PO (10:57)
--- NOTE | 2024-07-21 15:02 | P.PNPSI_ITS ---
Subjective Subjective Date of Service: 07/21/24 Reason For Visit: psychosis Subjective Notes: Section 7 Healthcare Proxy: No Guardianship: No Medical Problems Affecting Mental Status: No Interim History: Ruddy is awake and alert today. He is in bed, under blankets and states he does not want any process discussion today. He denies all symptoms He is med compliant, isolative, not engaged in the milieu Medication Compliance: Yes Side effects from medications: No Attending Groups: No Review of Systems Acute medical concerns: No Medical Review of Systems: unchanged Review of Systems Review of Systems Denies Mental Status Exam Mental Status Exam Narrative: Alert, oriented Isolative Speech clear Affect flat, mood depressed Thought Process content difficult to assess as pt will only say he has no sx of concern Diagnostics Vital Signs (24Hr): Vital Signs - 24 hr 07/20/24 20:00 07/21/24 10:56 Pulse Rate 92 Respiratory Rate 20 Blood Pressure 132/88 BMI result Body Mass Index 32.5 Labs 06/28/24 17:51 07/12/24 08:48 Imaging Radiology Impressions: ITS Impressions Chest X-Ray 06/28/24 20:45 IMPRESSION: *Low lung volumes; otherwise, no cardiopulmonary abnormalities identified. *Moderate convex rightward scoliosis of the thoracic spine. Electronically signed by: Ran Castaneda MD 06/29/2024 12:03 AM EST RP Head CT 06/28/24 20:53 IMPRESSION: 1. No acute intracranial pathology. 2. Mild cerebral volume loss and mild chronic microangiopathy. Electronically signed by: Brandon Smith MD 06/28/2024 11:49 PM EST RP Medications Medications Current Medications Acetaminophen (Acetaminophen 325 Mg Tablet) 650 mg PO Q6H PRN PRN Reason: Headache/Pain Mild Scale (1-3) Al Hydroxide/Mg Hydroxide (Magnesium Hydrox/Alum Hydrox 30 Ml Oral.Susp) 30 ml PO Q6H PRN PRN Reason: Heartburn/Nausea Atorvastatin Calcium (Atorvastatin Calcium 40 Mg Tablet) 40 mg PO DAILY [facility] Last Admin: 07/21/24 10:57 Dose: 40 mg Chlorpromazine HCl (Chlorpromazine Hcl 25 Mg Tablet) 25 mg PO TID [facility] Last Admin: 07/21/24 10:56 Dose: 25 mg Empagliflozin (Empagliflozin 25 Mg Tablet) 25 mg PO DAILY [facility] Last Admin: 07/21/24 10:57 Dose: 25 mg Escitalopram Oxalate (Escitalopram Oxalate 5 Mg Tablet) 5 mg PO DAILY [facility] Last Admin: 07/21/24 10:57 Dose: 5 mg Gabapentin (Gabapentin 400 Mg Capsule) 800 mg PO TID [facility] Last Admin: 07/21/24 10:55 Dose: 800 mg Hydroxyzine HCl (Hydroxyzine Hcl 25 Mg Tablet) 25 mg PO Q6H PRN PRN Reason: Anxiety Loperamide HCl (Loperamide Hcl 2 Mg Capsule) 2 mg PO Q6H PRN PRN Reason: Diarrhea Last Admin: 07/01/24 10:23 Dose: 2 mg Lorazepam (Lorazepam 1 Mg Tablet) 2 mg PO TID [facility] Last Admin: 07/21/24 10:56 Dose: 2 mg Magnesium Hydroxide (Milk Of Magnesia 30 Ml Oral.Susp) 30 ml PO DAILY PRN PRN Reason: Constipation Metformin HCl (Metformin Hcl 1,000 Mg Tablet) 1,000 mg PO BID [facility] Last Admin: 07/01/24 21:13 Dose: Not Given Metoprolol Succinate (Metoprolol Succinate Er 25 Mg Tab.Er.24h) 25 mg PO DAILY [facility]; Protocol Last Admin: 07/21/24 10:56 Dose: 25 mg Mirtazapine (Mirtazapine 15 Mg Tablet) 45 mg PO BEDTIME [facility] Last Admin: 07/20/24 22:10 Dose: 45 mg Nicotine Polacrilex (Nicotine Polacrilex 2 Mg Gum) 4 mg BUCCAL Q2H PRN PRN Reason: Nicotine Cravings Olanzapine (Olanzapine Odt 10 Mg Tab.Rapdis) 5 mg TRANSLINGU Q4H PRN PRN Reason: anxiety/agitation Last Admin: 07/13/24 12:13 Dose: 5 mg Olanzapine (Olanzapine Odt 10 Mg Tab.Rapdis) 10 mg TRANSLINGU BID [facility] Last Admin: 07/21/24 10:56 Dose: 10 mg Trazodone HCl (Trazodone Hcl 50 Mg Tablet) 50 mg PO BEDTIME MRX1 PRN PRN Reason: Insomnia Allergies Allergies Allergy/AdvReac Type Severity Reaction Status Date / Time haloperidol [From Haldol] Allergy Intermediate Agitated Verified 06/28/24 17:33 lithium Allergy Intermediate Agitated Verified 06/28/24 17:33 oxcarbazepine Allergy Unknown RASH Verified 06/28/24 17:33 [From TRILEPTAL] fluphenazine [From Prolixin] Allergy akathisia Verified 06/28/24 17:33 Assessment & Plan Assessment & Plan (1) Schizoaffective disorder: Status: Acute Code(s): F25.9 - Schizoaffective disorder, unspecified Plan 06/29: restart/continue discharge meds from most recent hospitalization. change to ODT what can be changed to ODT in the hopes that stomach complaint is driven by psychosis and will resolve with adequate neuroleptic and anxiolytic Tx. 06/30: apparently catatonic this morning. per RN, pt has not taken any medications since admission. will add ativan 2 mg TID, staffing consultant to strongly and repeatedly encourage pt to take medication. apparently, this approach worked during most recent admission on M3 with similar presentation. 07/01: Started being compliant. More responsive. Will hold Glucophage due to diarrhea. Imodium. Continue other medications. 07/02: Increase Clozaril to 50 mg HS. DC ODT Clonazepam now that he can swallow OK. Lower Ativan to 1 mg TID. 07/03: Continue current plan. On 07/04 increase Clozaril to 100 mg. 07/05: Pt did agree to labs. If he refuses meds this evening will file Section Seven for consideration. 07/07: Lactulose 30 cc x 1 for pt report of constipation. Continue regime Support, offer encouragement with current stressor, encourage communication with team. 07/08: Continue current regimen and plans for stabilization and medication management 07/09: Continue current regimen and plans for stabilization and medication management 07/11: Increase Clozaril to 50 mg HS from 25 mg HS Decrease Lorazepam to 1.5 mg tid from [address] 07/13. Pt not wanting to talk of this today with tw. 07/13: Olanzapine 10 mg po bid 07/14/24: Decrease Lorazepam to 1 mg tid Intake/Output 07/15/24 patient uncooperative, disorganized and labile behavior- refusing medications- had unit on lock down today- while nursing attempted to help patient stop screaming and throwing things in his room- 07/16 ? agitated catatonia- likely to need urgent ECT- if medically stable for it- and if court can be arranged soon enough- in any case will need medication soon- 07/17- ECT consult Increase Ativan to 2 mg tid Chlorpromazine 25 mg tid 07/18- Recompensated this afternoon, interactive, discussed his concerns about his developmental milestones. Waxing, Waning catatonia? 07/19- Continue tx 07/20: Continue current management and treatment plan. Remains isolated, with waxing and waning symptoms. Med compliant with modest effect. 07/21: Increase Chlorpromazine to 50 mg tid Reason for continued inpatient stay Substantial Risk for: rapid decompensation Time Spent With Patient Time: Total time managing care of this patient today ____ minutes.
[2024-07-21] MEDS: Mirtazapine 15 MG TABLET 45 MG PO (21:26)
[2024-07-21] MEDS: chlorproMAZINE HCl 25 MG TABLET 50 MG PO (21:27)
--- NOTE | 2024-07-22 01:56 | PC.NURSE ---
Patient insisted that he ate lunch and dinner. This leader writer observed a tray that had 2 empty milk cartons on it and nothing else. Patient drank 50 mls of water with his medications.
[2024-07-22 08:00] VITALS: BP 122/71; PULSE 102; RESP 16; TEMP 36.9; O2SAT 98
[2024-07-22] MEDS: Gabapentin 400 MG CAPSULE 800 MG PO ×3 (08:49→21:35)
[2024-07-22] MEDS: OLANZapine ODT 10 MG TAB.RAPDIS TRANSLINGU ×2 (08:49→21:36)
[2024-07-22] MEDS: LORazepam 1 MG TABLET 2 MG PO ×3 (08:49→21:35)
[2024-07-22] MEDS: Escitalopram Oxalate 5 MG TABLET PO (08:49)
[2024-07-22] MEDS: Atorvastatin Calcium 40 MG TABLET PO (08:49)
[2024-07-22] MEDS: Metoprolol Succinate ER 25 MG TAB.ER.24H PO (08:49)
[2024-07-22] MEDS: Empagliflozin 25 MG TABLET PO (08:49)
[2024-07-22] MEDS: chlorproMAZINE HCl 25 MG TABLET 50 MG PO ×3 (08:53→21:35)
--- NOTE | 2024-07-22 10:48 | HO.PSYCHPN ---
Subjective Subjective Date of Service: 07/22/24 Reason For Visit: psychosis Interim History: Patient is withdrawn and with very limited interaction with the milieu and this com writer. Stays under the blankets. Not engaged. Med compliant. Per nursing said he has no appetite but later ate his breakfast. He denies all symptoms. Review of Systems Review of Systems Denies Yes all other systems are reviewed and are negative and Unobtainable due to mental status Mental Status Exam Mental Status Exam Narrative: Alert, oriented Isolative Speech clear Affect flat, mood depressed Thought Process content difficult to assess as pt will only say he has no sx of concern Patient Appearance: Fatigued Patient Orientation: Person, Place, Time and Situation Level of Consciousness: Alert Patient Behavior: Guarded, Passive, Avoidant and Isolative Mood Description: Depressed Affect Description: Flat Patient Cognition Impaired: No Ability to Follow Directions: Fair Speech Pattern: Spontaneous Speech Memory Description: Intact Diagnostics Vital Signs (24Hr): Vital Signs - 24 hr 07/21/24 10:56 07/22/24 08:00 Temperature 98.4 F Pulse Rate 92 102 H Respiratory Rate 16 Blood Pressure 132/88 122/71 Pulse Oximetry 98 Oxygen Delivery Method Room Air BMI result Body Mass Index 32.5 Labs 06/28/24 17:51 07/12/24 08:48 Imaging Radiology Impressions: ITS Impressions Chest X-Ray 06/28/24 20:45 IMPRESSION: *Low lung volumes; otherwise, no cardiopulmonary abnormalities identified. *Moderate convex rightward scoliosis of the thoracic spine. Electronically signed by: Ran Castaneda MD 06/29/2024 12:03 AM EST RP Head CT 06/28/24 20:53 IMPRESSION: 1. No acute intracranial pathology. 2. Mild cerebral volume loss and mild chronic microangiopathy. Electronically signed by: Brandon Smith MD 06/28/2024 11:49 PM EST RP Medications Medications Current Medications Acetaminophen (Acetaminophen 325 Mg Tablet) 650 mg PO Q6H PRN PRN Reason: Headache/Pain Mild Scale (1-3) Al Hydroxide/Mg Hydroxide (Magnesium Hydrox/Alum Hydrox 30 Ml Oral.Susp) 30 ml PO Q6H PRN PRN Reason: Heartburn/Nausea Atorvastatin Calcium (Atorvastatin Calcium 40 Mg Tablet) 40 mg PO DAILY [facility] Last Admin: 07/22/24 08:49 Dose: 40 mg Chlorpromazine HCl (Chlorpromazine Hcl 25 Mg Tablet) 50 mg PO TID [facility] Last Admin: 07/22/24 08:53 Dose: 50 mg Empagliflozin (Empagliflozin 25 Mg Tablet) 25 mg PO DAILY [facility] Last Admin: 07/22/24 08:49 Dose: 25 mg Escitalopram Oxalate (Escitalopram Oxalate 5 Mg Tablet) 5 mg PO DAILY [facility] Last Admin: 07/22/24 08:49 Dose: 5 mg Gabapentin (Gabapentin 400 Mg Capsule) 800 mg PO TID [facility] Last Admin: 07/22/24 08:49 Dose: 800 mg Hydroxyzine HCl (Hydroxyzine Hcl 25 Mg Tablet) 25 mg PO Q6H PRN PRN Reason: Anxiety Loperamide HCl (Loperamide Hcl 2 Mg Capsule) 2 mg PO Q6H PRN PRN Reason: Diarrhea Last Admin: 07/01/24 10:23 Dose: 2 mg Lorazepam (Lorazepam 1 Mg Tablet) 2 mg PO TID [facility] Last Admin: 07/22/24 08:49 Dose: 2 mg Magnesium Hydroxide (Milk Of Magnesia 30 Ml Oral.Susp) 30 ml PO DAILY PRN PRN Reason: Constipation Metformin HCl (Metformin Hcl 1,000 Mg Tablet) 1,000 mg PO BID [facility] Last Admin: 07/01/24 21:13 Dose: Not Given Metoprolol Succinate (Metoprolol Succinate Er 25 Mg Tab.Er.24h) 25 mg PO DAILY [facility]; Protocol Last Admin: 07/22/24 08:49 Dose: 25 mg Mirtazapine (Mirtazapine 15 Mg Tablet) 45 mg PO BEDTIME [facility] Last Admin: 07/21/24 21:26 Dose: 45 mg Nicotine Polacrilex (Nicotine Polacrilex 2 Mg Gum) 4 mg BUCCAL Q2H PRN PRN Reason: Nicotine Cravings Olanzapine (Olanzapine Odt 10 Mg Tab.Rapdis) 5 mg TRANSLINGU Q4H PRN PRN Reason: anxiety/agitation Last Admin: 07/13/24 12:13 Dose: 5 mg Olanzapine (Olanzapine Odt 10 Mg Tab.Rapdis) 10 mg TRANSLINGU BID [facility] Last Admin: 07/22/24 08:49 Dose: 10 mg Trazodone HCl (Trazodone Hcl 50 Mg Tablet) 50 mg PO BEDTIME MRX1 PRN PRN Reason: Insomnia Allergies Allergies Allergy/AdvReac Type Severity Reaction Status Date / Time haloperidol [From Haldol] Allergy Intermediate Agitated Verified 06/28/24 17:33 lithium Allergy Intermediate Agitated Verified 06/28/24 17:33 oxcarbazepine Allergy Unknown RASH Verified 06/28/24 17:33 [From TRILEPTAL] fluphenazine [From Prolixin] Allergy akathisia Verified 06/28/24 17:33 Assessment & Plan Assessment & Plan (1) Schizoaffective disorder: Status: Acute Code(s): F25.9 - Schizoaffective disorder, unspecified Plan 06/29: restart/continue discharge meds from most recent hospitalization. change to ODT what can be changed to ODT in the hopes that stomach complaint is driven by psychosis and will resolve with adequate neuroleptic and anxiolytic Tx. 06/30: apparently catatonic this morning. per RN, pt has not taken any medications since admission. will add ativan 2 mg TID, staffing operations manager to strongly and repeatedly encourage pt to take medication. apparently, this approach worked during most recent admission on M3 with similar presentation. 07/01: Started being compliant. More responsive. Will hold Glucophage due to diarrhea. Imodium. Continue other medications. 07/02: Increase Clozaril to 50 mg HS. DC ODT Clonazepam now that he can swallow OK. Lower Ativan to 1 mg TID. 07/03: Continue current plan. On 07/04 increase Clozaril to 100 mg. 07/05: Pt did agree to labs. If he refuses meds this evening will file Section Seven for consideration. 07/07: Lactulose 30 cc x 1 for pt report of constipation. Continue regime Support, offer encouragement with current stressor, encourage communication with team. 07/08: Continue current regimen and plans for stabilization and medication management 07/09: Continue current regimen and plans for stabilization and medication management 07/11: Increase Clozaril to 50 mg HS from 25 mg HS Decrease Lorazepam to 1.5 mg tid from [address] 07/13. Pt not wanting to talk of this today with tw. 07/13: Olanzapine 10 mg po bid 07/14/24: Decrease Lorazepam to 1 mg tid Intake/Output 07/15/24 patient uncooperative, disorganized and labile behavior- refusing medications- had unit on lock down today- while nursing attempted to help patient stop screaming and throwing things in his room- 07/16 ? agitated catatonia- likely to need urgent ECT- if medically stable for it- and if court can be arranged soon enough- in any case will need medication soon- 07/17- ECT consult Increase Ativan to 2 mg tid Chlorpromazine 25 mg tid 07/18- Recompensated this afternoon, interactive, discussed his concerns about his developmental milestones. Waxing, Waning catatonia? 07/19- Continue tx 07/20: Continue current management and treatment plan. Remains isolated, with waxing and waning symptoms. Med compliant with modest effect. 07/21: Increase Chlorpromazine to 50 mg tid 07/22: Continue current management and treatment plan. Reason for continued inpatient stay Substantial Risk for: inability to function and rapid decompensation Time Spent With Patient Time: Total time managing care of this patient today ____ minutes.
[2024-07-22 19:57] VITALS: BP 116/60; PULSE 86; RESP 18; TEMP 36.1; O2SAT 99
[2024-07-22] MEDS: Mirtazapine 15 MG TABLET 45 MG PO (21:35)
[2024-07-23 08:45] VITALS: BP 105/60; PULSE 102; RESP 16; TEMP 36.6; O2SAT 99
[2024-07-23] MEDS: Escitalopram Oxalate 5 MG TABLET PO (08:50)
[2024-07-23] MEDS: Empagliflozin 25 MG TABLET PO (08:51)
[2024-07-23] MEDS: chlorproMAZINE HCl 25 MG TABLET 50 MG PO ×3 (08:51→21:34)
[2024-07-23] MEDS: Metoprolol Succinate ER 25 MG TAB.ER.24H PO (08:51)
[2024-07-23] MEDS: Gabapentin 400 MG CAPSULE 800 MG PO ×3 (08:51→21:34)
[2024-07-23] MEDS: Atorvastatin Calcium 40 MG TABLET PO (08:51)
[2024-07-23] MEDS: LORazepam 1 MG TABLET 2 MG PO ×3 (08:51→21:34)
[2024-07-23] MEDS: OLANZapine ODT 10 MG TAB.RAPDIS TRANSLINGU ×2 (08:52→21:34)
--- NOTE | 2024-07-23 09:17 | P.PNPSI_ITS ---
Subjective Subjective Date of Service: 07/23/24 Reason For Visit: psychosis Interim History: Patient is withdrawn and with very limited interaction with the milieu and this customs entry writer. When asked about isolation he said I have my reasons. I don't want to go there [explain the reasons] He was irritable when pressed. Laying in bed. Poor eye contact. Desheveled. RN report his appetite is better. Not engaged. Med compliant. Review of Systems Review of Systems Denies Yes all other systems are reviewed and are negative and Unobtainable due to mental status Mental Status Exam Mental Status Exam Narrative: Alert, oriented Isolative Speech clear Affect flat, mood depressed Thought Process content difficult to assess as pt will only say he has no sx of concern Patient Appearance: Fatigued Patient Orientation: Person, Place, Time and Situation Level of Consciousness: Alert Patient Behavior: Guarded, Passive, Avoidant and Isolative Mood Description: Depressed Affect Description: Flat Patient Cognition Impaired: No Ability to Follow Directions: Fair Speech Pattern: Spontaneous Speech Memory Description: Intact Diagnostics Vital Signs (24Hr): Vital Signs - 24 hr 07/22/24 19:57 07/23/24 08:45 Temperature 96.9 F 98 F Pulse Rate 86 102 H Respiratory Rate 18 16 Blood Pressure 116/60 105/60 Pulse Oximetry 99 99 Oxygen Delivery Method Room Air Room Air BMI result Body Mass Index 32.5 Labs 06/28/24 17:51 07/12/24 08:48 Imaging Radiology Impressions: ITS Impressions Chest X-Ray 06/28/24 20:45 IMPRESSION: *Low lung volumes; otherwise, no cardiopulmonary abnormalities identified. *Moderate convex rightward scoliosis of the thoracic spine. Electronically signed by: Ran Castaneda MD 06/29/2024 12:03 AM EST RP Head CT 06/28/24 20:53 IMPRESSION: 1. No acute intracranial pathology. 2. Mild cerebral volume loss and mild chronic microangiopathy. Electronically signed by: Brandon Smith MD 06/28/2024 11:49 PM EST RP Medications Medications Current Medications Acetaminophen (Acetaminophen 325 Mg Tablet) 650 mg PO Q6H PRN PRN Reason: Headache/Pain Mild Scale (1-3) Al Hydroxide/Mg Hydroxide (Magnesium Hydrox/Alum Hydrox 30 Ml Oral.Susp) 30 ml PO Q6H PRN PRN Reason: Heartburn/Nausea Atorvastatin Calcium (Atorvastatin Calcium 40 Mg Tablet) 40 mg PO DAILY [facility] Last Admin: 07/23/24 08:51 Dose: 40 mg Chlorpromazine HCl (Chlorpromazine Hcl 25 Mg Tablet) 50 mg PO TID [facility] Last Admin: 07/23/24 08:51 Dose: 50 mg Empagliflozin (Empagliflozin 25 Mg Tablet) 25 mg PO DAILY [facility] Last Admin: 07/23/24 08:51 Dose: 25 mg Escitalopram Oxalate (Escitalopram Oxalate 5 Mg Tablet) 5 mg PO DAILY [facility] Last Admin: 07/23/24 08:50 Dose: 5 mg Gabapentin (Gabapentin 400 Mg Capsule) 800 mg PO TID [facility] Last Admin: 07/23/24 08:51 Dose: 800 mg Hydroxyzine HCl (Hydroxyzine Hcl 25 Mg Tablet) 25 mg PO Q6H PRN PRN Reason: Anxiety Loperamide HCl (Loperamide Hcl 2 Mg Capsule) 2 mg PO Q6H PRN PRN Reason: Diarrhea Last Admin: 07/01/24 10:23 Dose: 2 mg Lorazepam (Lorazepam 1 Mg Tablet) 2 mg PO TID [facility] Last Admin: 07/23/24 08:51 Dose: 2 mg Magnesium Hydroxide (Milk Of Magnesia 30 Ml Oral.Susp) 30 ml PO DAILY PRN PRN Reason: Constipation Metformin HCl (Metformin Hcl 1,000 Mg Tablet) 1,000 mg PO BID [facility] Last Admin: 07/01/24 21:13 Dose: Not Given Metoprolol Succinate (Metoprolol Succinate Er 25 Mg Tab.Er.24h) 25 mg PO DAILY [facility]; Protocol Last Admin: 07/23/24 08:51 Dose: 25 mg Mirtazapine (Mirtazapine 15 Mg Tablet) 45 mg PO BEDTIME [facility] Last Admin: 07/22/24 21:35 Dose: 45 mg Nicotine Polacrilex (Nicotine Polacrilex 2 Mg Gum) 4 mg BUCCAL Q2H PRN PRN Reason: Nicotine Cravings Olanzapine (Olanzapine Odt 10 Mg Tab.Rapdis) 5 mg TRANSLINGU Q4H PRN PRN Reason: anxiety/agitation Last Admin: 07/13/24 12:13 Dose: 5 mg Olanzapine (Olanzapine Odt 10 Mg Tab.Rapdis) 10 mg TRANSLINGU BID [facility] Last Admin: 07/23/24 08:52 Dose: 10 mg Trazodone HCl (Trazodone Hcl 50 Mg Tablet) 50 mg PO BEDTIME MRX1 PRN PRN Reason: Insomnia Allergies Allergies Allergy/AdvReac Type Severity Reaction Status Date / Time haloperidol [From Haldol] Allergy Intermediate Agitated Verified 06/28/24 17:33 lithium Allergy Intermediate Agitated Verified 06/28/24 17:33 oxcarbazepine Allergy Unknown RASH Verified 06/28/24 17:33 [From TRILEPTAL] fluphenazine [From Prolixin] Allergy akathisia Verified 06/28/24 17:33 Assessment & Plan Assessment & Plan (1) Schizoaffective disorder: Status: Acute Code(s): F25.9 - Schizoaffective disorder, unspecified Plan 06/29: restart/continue discharge meds from most recent hospitalization. change to ODT what can be changed to ODT in the hopes that stomach complaint is driven by psychosis and will resolve with adequate neuroleptic and anxiolytic Tx. 06/30: apparently catatonic this morning. per RN, pt has not taken any medications since admission. will add ativan 2 mg TID, staff rn to strongly and repeatedly encourage pt to take medication. apparently, this approach worked during most recent admission on M3 with similar presentation. 07/01: Started being compliant. More responsive. Will hold Glucophage due to diarrhea. Imodium. Continue other medications. 07/02: Increase Clozaril to 50 mg HS. DC ODT Clonazepam now that he can swallow OK. Lower Ativan to 1 mg TID. 07/03: Continue current plan. On 07/04 increase Clozaril to 100 mg. 07/05: Pt did agree to labs. If he refuses meds this evening will file Section Seven for consideration. 07/07: Lactulose 30 cc x 1 for pt report of constipation. Continue regime Support, offer encouragement with current stressor, encourage communication with team. 07/08: Continue current regimen and plans for stabilization and medication management 07/09: Continue current regimen and plans for stabilization and medication management 07/11: Increase Clozaril to 50 mg HS from 25 mg HS Decrease Lorazepam to 1.5 mg tid from [address] 07/13. Pt not wanting to talk of this today with tw. 07/13: Olanzapine 10 mg po bid 07/14/24: Decrease Lorazepam to 1 mg tid Intake/Output 07/15/24 patient uncooperative, disorganized and labile behavior- refusing medications- had unit on lock down today- while nursing attempted to help patient stop screaming and throwing things in his room- 07/16 ? agitated catatonia- likely to need urgent ECT- if medically stable for it- and if court can be arranged soon enough- in any case will need medication soon- 07/17- ECT consult Increase Ativan to 2 mg tid Chlorpromazine 25 mg tid 07/18- Recompensated this afternoon, interactive, discussed his concerns about his developmental milestones. Waxing, Waning catatonia? 07/19- Continue tx 07/20: Continue current management and treatment plan. Remains isolated, with waxing and waning symptoms. Med compliant with modest effect. 07/21: Increase Chlorpromazine to 50 mg tid 07/22: Continue current management and treatment plan. 07/23: Continue current management and treatment plan. Remains depressed and isolated. ECT may be helpful. Reason for continued inpatient stay Substantial Risk for: inability to function and rapid decompensation Time Spent With Patient Time: Total time managing care of this patient today ____ minutes.
[2024-07-23 20:00] VITALS: BP 112/69; PULSE 94; O2SAT 98
[2024-07-23] MEDS: Mirtazapine 15 MG TABLET 45 MG PO (21:34)
[2024-07-24] MEDS: Escitalopram Oxalate 5 MG TABLET PO (09:45)
[2024-07-24] MEDS: LORazepam 1 MG TABLET 2 MG PO ×3 (09:45→21:42)
[2024-07-24 09:46] VITALS: BP 130/80; PULSE 88
[2024-07-24] MEDS: chlorproMAZINE HCl 25 MG TABLET 50 MG PO ×2 (09:46→15:14)
[2024-07-24] MEDS: Metoprolol Succinate ER 25 MG TAB.ER.24H PO (09:46)
[2024-07-24] MEDS: Gabapentin 400 MG CAPSULE 800 MG PO ×3 (09:47→21:42)
[2024-07-24] MEDS: Empagliflozin 25 MG TABLET PO (09:47)
[2024-07-24] MEDS: OLANZapine ODT 10 MG TAB.RAPDIS TRANSLINGU ×2 (09:47→21:42)
[2024-07-24] MEDS: Atorvastatin Calcium 40 MG TABLET PO (09:47)
--- NOTE | 2024-07-24 10:18 | P.PNPSI_ITS ---
Subjective Subjective Date of Service: 07/24/24 Reason For Visit: psychosis Subjective Notes: Section 7 Healthcare Proxy: No Guardianship: No Medical Problems Affecting Mental Status: No Interim History: Pt continues isolative and withdrawn. Review of meds, plan of care today. Attempted to discuss ECT. Pt became angry and verbally caustic, not wanting to discuss tx. Agrees to increase Lexapro to 10 mg and decrease Chlorpromazine to 25 mg tid. Refusal of labs, which effects his ability to receive Metformin-pt aware and will decide how to proceed. Medication Compliance: Yes Side effects from medications: Yes (sedation at times) Attending Groups: No Review of Systems Acute medical concerns: No Medical Review of Systems: unchanged Review of Systems Review of Systems denies Yes Unobtainable due to mental status Mental Status Exam Mental Status Exam Narrative: Alert, oriented, angry at times. Speech clear. Mood depressed, irritable, affect flat Thought process and content present with preoccupation, ?thought blocking at times Amotivated today to discuss making some changes in plan of care. Diagnostics Vital Signs (24Hr): Vital Signs - 24 hr 07/23/24 20:00 07/24/24 09:46 Pulse Rate 94 88 Blood Pressure 112/69 130/80 Pulse Oximetry 98 Oxygen Delivery Method Room Air BMI result Body Mass Index 32.5 Labs 06/28/24 17:51 07/24/24 12:08 Imaging Radiology Impressions: ITS Impressions Chest X-Ray 06/28/24 20:45 IMPRESSION: *Low lung volumes; otherwise, no cardiopulmonary abnormalities identified. *Moderate convex rightward scoliosis of the thoracic spine. Electronically signed by: Ran Castaneda MD 06/29/2024 12:03 AM EST RP Head CT 06/28/24 20:53 IMPRESSION: 1. No acute intracranial pathology. 2. Mild cerebral volume loss and mild chronic microangiopathy. Electronically signed by: Brandon Smith MD 06/28/2024 11:49 PM EST RP Medications Medications Current Medications Acetaminophen (Acetaminophen 325 Mg Tablet) 650 mg PO Q6H PRN PRN Reason: Headache/Pain Mild Scale (1-3) Al Hydroxide/Mg Hydroxide (Magnesium Hydrox/Alum Hydrox 30 Ml Oral.Susp) 30 ml PO Q6H PRN PRN Reason: Heartburn/Nausea Atorvastatin Calcium (Atorvastatin Calcium 40 Mg Tablet) 40 mg PO DAILY [facility] Last Admin: 07/24/24 09:47 Dose: 40 mg Chlorpromazine HCl (Chlorpromazine Hcl 25 Mg Tablet) 50 mg PO TID [facility] Last Admin: 07/24/24 09:46 Dose: 50 mg Empagliflozin (Empagliflozin 25 Mg Tablet) 25 mg PO DAILY [facility] Last Admin: 07/24/24 09:47 Dose: 25 mg Escitalopram Oxalate (Escitalopram Oxalate 5 Mg Tablet) 5 mg PO DAILY [facility] Last Admin: 07/24/24 09:45 Dose: 5 mg Gabapentin (Gabapentin 400 Mg Capsule) 800 mg PO TID [facility] Last Admin: 07/24/24 09:47 Dose: 800 mg Hydroxyzine HCl (Hydroxyzine Hcl 25 Mg Tablet) 25 mg PO Q6H PRN PRN Reason: Anxiety Loperamide HCl (Loperamide Hcl 2 Mg Capsule) 2 mg PO Q6H PRN PRN Reason: Diarrhea Last Admin: 07/01/24 10:23 Dose: 2 mg Lorazepam (Lorazepam 1 Mg Tablet) 2 mg PO TID [facility] Last Admin: 07/24/24 09:45 Dose: 2 mg Magnesium Hydroxide (Milk Of Magnesia 30 Ml Oral.Susp) 30 ml PO DAILY PRN PRN Reason: Constipation Metformin HCl (Metformin Hcl 1,000 Mg Tablet) 1,000 mg PO BID [facility] Last Admin: 07/01/24 21:13 Dose: Not Given Metoprolol Succinate (Metoprolol Succinate Er 25 Mg Tab.Er.24h) 25 mg PO DAILY [facility]; Protocol Last Admin: 07/24/24 09:46 Dose: 25 mg Mirtazapine (Mirtazapine 15 Mg Tablet) 45 mg PO BEDTIME [facility] Last Admin: 07/23/24 21:34 Dose: 45 mg Nicotine Polacrilex (Nicotine Polacrilex 2 Mg Gum) 4 mg BUCCAL Q2H PRN PRN Reason: Nicotine Cravings Olanzapine (Olanzapine Odt 10 Mg Tab.Rapdis) 5 mg TRANSLINGU Q4H PRN PRN Reason: anxiety/agitation Last Admin: 07/13/24 12:13 Dose: 5 mg Olanzapine (Olanzapine Odt 10 Mg Tab.Rapdis) 10 mg TRANSLINGU BID [facility] Last Admin: 07/24/24 09:47 Dose: 10 mg Trazodone HCl (Trazodone Hcl 50 Mg Tablet) 50 mg PO BEDTIME MRX1 PRN PRN Reason: Insomnia Allergies Allergies Allergy/AdvReac Type Severity Reaction Status Date / Time haloperidol [From Haldol] Allergy Intermediate Agitated Verified 06/28/24 17:33 lithium Allergy Intermediate Agitated Verified 06/28/24 17:33 oxcarbazepine Allergy Unknown RASH Verified 06/28/24 17:33 [From TRILEPTAL] fluphenazine [From Prolixin] Allergy akathisia Verified 06/28/24 17:33 Assessment & Plan Assessment & Plan (1) Schizoaffective disorder: Status: Acute Code(s): F25.9 - Schizoaffective disorder, unspecified Plan 06/29: restart/continue discharge meds from most recent hospitalization. change to ODT what can be changed to ODT in the hopes that stomach complaint is driven by psychosis and will resolve with adequate neuroleptic and anxiolytic Tx. 06/30: apparently catatonic this morning. per RN, pt has not taken any medications since admission. will add ativan 2 mg TID, medical staff credentialing coordinator to strongly and repeatedly encourage pt to take medication. apparently, this approach worked during most recent admission on M3 with similar presentation. 07/01: Started being compliant. More responsive. Will hold Glucophage due to diarrhea. Imodium. Continue other medications. 07/02: Increase Clozaril to 50 mg HS. DC ODT Clonazepam now that he can swallow OK. Lower Ativan to 1 mg TID. 07/03: Continue current plan. On 07/04 increase Clozaril to 100 mg. 07/05: Pt did agree to labs. If he refuses meds this evening will file Section Seven for consideration. 07/07: Lactulose 30 cc x 1 for pt report of constipation. Continue regime Support, offer encouragement with current stressor, encourage communication with team. 07/08: Continue current regimen and plans for stabilization and medication management 07/09: Continue current regimen and plans for stabilization and medication management 07/11: Increase Clozaril to 50 mg HS from 25 mg HS Decrease Lorazepam to 1.5 mg tid from [address] 07/13. Pt not wanting to talk of this today with tw. 07/13: Olanzapine 10 mg po bid 07/14/24: Decrease Lorazepam to 1 mg tid Intake/Output 07/15/24 patient uncooperative, disorganized and labile behavior- refusing medications- had unit on lock down today- while nursing attempted to help patient stop screaming and throwing things in his room- 07/16 ? agitated catatonia- likely to need urgent ECT- if medically stable for it- and if court can be arranged soon enough- in any case will need medication soon- 07/17- ECT consult Increase Ativan to 2 mg tid Chlorpromazine 25 mg tid 07/18- Recompensated this afternoon, interactive, discussed his concerns about his developmental milestones. Waxing, Waning catatonia? 07/19- Continue tx 07/20: Continue current management and treatment plan. Remains isolated, with waxing and waning symptoms. Med compliant with modest effect. 07/21: Increase Chlorpromazine to 50 mg tid 07/24: Decrease Chlorpromazine to 25 mg tid Increase Lexapro to 10 mg daily Reason for continued inpatient stay Substantial Risk for: rapid decompensation Time Spent With Patient Time: Total time managing care of this patient today ____ minutes.
[2024-07-24 12:31] LABS: Creatinine Clr Calc Pharmacy 113.9; Estimated Glomerular Filt Rate > 60
[2024-07-24 20:00] VITALS: BP 107/56; PULSE 88; TEMP 36.4; O2SAT 99
[2024-07-24] MEDS: Mirtazapine 15 MG TABLET 45 MG PO (21:42)
[2024-07-24] MEDS: chlorproMAZINE HCl 25 MG TABLET PO (21:42)
[2024-07-25] MEDS: LORazepam 1 MG TABLET 2 MG PO ×3 (09:04→21:22)
[2024-07-25] MEDS: Empagliflozin 25 MG TABLET PO (09:04)
[2024-07-25] MEDS: Atorvastatin Calcium 40 MG TABLET PO (09:05)
[2024-07-25] MEDS: OLANZapine ODT 10 MG TAB.RAPDIS TRANSLINGU ×2 (09:05→21:22)
[2024-07-25] MEDS: Gabapentin 400 MG CAPSULE 800 MG PO ×3 (09:06→21:22)
[2024-07-25] MEDS: chlorproMAZINE HCl 25 MG TABLET PO ×3 (09:06→21:22)
[2024-07-25] MEDS: Escitalopram Oxalate 10 MG TABLET PO (09:06)
[2024-07-25 09:11] VITALS: BP 132/76; PULSE 88
[2024-07-25] MEDS: Metoprolol Succinate ER 25 MG TAB.ER.24H PO (09:11)
--- NOTE | 2024-07-25 09:59 | P.PNPSI_ITS ---
Subjective Subjective Date of Service: 07/25/24 Reason For Visit: psychosis Interim History: Met with patient; discussed with team; reviewed chart Patient lying in bed facing the wall; will not turn to look at contract technical writer. Says he does not want to talk because I do not want to.. Will not answer any other questions or engage further. Staff reports patient has remained isolative Mental Status Exam Mental Status Exam Narrative: Alert, oriented, Disheveled Behavior: Isolative, abulic Mood: Irritable, depressed Affect: Refuses to look at contract technical writer Speech, limited to one-word answers Thought process: Goal oriented Thought content: Will not discuss Patients insight and judgment impaired Diagnostics Vital Signs (24Hr): Vital Signs - 24 hr 07/24/24 20:00 07/25/24 09:11 Temperature 97.5 F Pulse Rate 88 88 Blood Pressure 107/56 L 132/76 Pulse Oximetry 99 Oxygen Delivery Method Room Air BMI result Body Mass Index 32.5 Labs 06/28/24 17:51 07/26/24 08:41 Labs: Laboratory Results - last 48 hr 07/24/24 12:08 Creatinine 1.01 Estim Creat Clear Calc 113.9 Estimated GFR > 60 Imaging Radiology Impressions: ITS Impressions Chest X-Ray 06/28/24 20:45 IMPRESSION: *Low lung volumes; otherwise, no cardiopulmonary abnormalities identified. *Moderate convex rightward scoliosis of the thoracic spine. Electronically signed by: Ran Castaneda MD 06/29/2024 12:03 AM EST RP Head CT 06/28/24 20:53 IMPRESSION: 1. No acute intracranial pathology. 2. Mild cerebral volume loss and mild chronic microangiopathy. Electronically signed by: Brandon Smith MD 06/28/2024 11:49 PM EST RP Medications Medications Current Medications Acetaminophen (Acetaminophen 325 Mg Tablet) 650 mg PO Q6H PRN PRN Reason: Headache/Pain Mild Scale (1-3) Al Hydroxide/Mg Hydroxide (Magnesium Hydrox/Alum Hydrox 30 Ml Oral.Susp) 30 ml PO Q6H PRN PRN Reason: Heartburn/Nausea Atorvastatin Calcium (Atorvastatin Calcium 40 Mg Tablet) 40 mg PO DAILY [facility] Last Admin: 07/25/24 09:05 Dose: 40 mg Chlorpromazine HCl (Chlorpromazine Hcl 25 Mg Tablet) 25 mg PO TID [facility] Last Admin: 07/25/24 09:06 Dose: 25 mg Empagliflozin (Empagliflozin 25 Mg Tablet) 25 mg PO DAILY [facility] Last Admin: 07/25/24 09:04 Dose: 25 mg Escitalopram Oxalate (Escitalopram Oxalate 10 Mg Tablet) 10 mg PO DAILY [facility] Last Admin: 07/25/24 09:06 Dose: 10 mg Gabapentin (Gabapentin 400 Mg Capsule) 800 mg PO TID [facility] Last Admin: 07/25/24 09:06 Dose: 800 mg Hydroxyzine HCl (Hydroxyzine Hcl 25 Mg Tablet) 25 mg PO Q6H PRN PRN Reason: Anxiety Loperamide HCl (Loperamide Hcl 2 Mg Capsule) 2 mg PO Q6H PRN PRN Reason: Diarrhea Last Admin: 07/01/24 10:23 Dose: 2 mg Lorazepam (Lorazepam 1 Mg Tablet) 2 mg PO TID [facility] Last Admin: 07/25/24 09:04 Dose: 2 mg Magnesium Hydroxide (Milk Of Magnesia 30 Ml Oral.Susp) 30 ml PO DAILY PRN PRN Reason: Constipation Metformin HCl (Metformin Hcl 1,000 Mg Tablet) 1,000 mg PO BID [facility] Last Admin: 07/01/24 21:13 Dose: Not Given Metoprolol Succinate (Metoprolol Succinate Er 25 Mg Tab.Er.24h) 25 mg PO DAILY [facility]; Protocol Last Admin: 07/25/24 09:11 Dose: 25 mg Mirtazapine (Mirtazapine 15 Mg Tablet) 45 mg PO BEDTIME [facility] Last Admin: 07/24/24 21:42 Dose: 45 mg Nicotine Polacrilex (Nicotine Polacrilex 2 Mg Gum) 4 mg BUCCAL Q2H PRN PRN Reason: Nicotine Cravings Olanzapine (Olanzapine Odt 10 Mg Tab.Rapdis) 5 mg TRANSLINGU Q4H PRN PRN Reason: anxiety/agitation Last Admin: 07/13/24 12:13 Dose: 5 mg Olanzapine (Olanzapine Odt 10 Mg Tab.Rapdis) 10 mg TRANSLINGU BID [facility] Last Admin: 07/25/24 09:05 Dose: 10 mg Trazodone HCl (Trazodone Hcl 50 Mg Tablet) 50 mg PO BEDTIME MRX1 PRN PRN Reason: Insomnia Allergies Allergies Allergy/AdvReac Type Severity Reaction Status Date / Time haloperidol [From Haldol] Allergy Intermediate Agitated Verified 06/28/24 17:33 lithium Allergy Intermediate Agitated Verified 06/28/24 17:33 oxcarbazepine Allergy Unknown RASH Verified 06/28/24 17:33 [From TRILEPTAL] fluphenazine [From Prolixin] Allergy akathisia Verified 06/28/24 17:33 Assessment & Plan Assessment & Plan (1) Schizoaffective disorder: Status: Acute Code(s): F25.9 - Schizoaffective disorder, unspecified Plan 06/29: restart/continue discharge meds from most recent hospitalization. change to ODT what can be changed to ODT in the hopes that stomach complaint is driven by psychosis and will resolve with adequate neuroleptic and anxiolytic Tx. 06/30: apparently catatonic this morning. per RN, pt has not taken any medications since admission. will add ativan 2 mg TID, staff appraiser to strongly and repeatedly encourage pt to take medication. apparently, this approach worked during most recent admission on M3 with similar presentation. 07/01: Started being compliant. More responsive. Will hold Glucophage due to diarrhea. Imodium. Continue other medications. 07/02: Increase Clozaril to 50 mg HS. DC ODT Clonazepam now that he can swallow OK. Lower Ativan to 1 mg TID. 07/03: Continue current plan. On 07/04 increase Clozaril to 100 mg. 07/05: Pt did agree to labs. If he refuses meds this evening will file Section Seven for consideration. 07/07: Lactulose 30 cc x 1 for pt report of constipation. Continue regime Support, offer encouragement with current stressor, encourage communication with team. 07/08: Continue current regimen and plans for stabilization and medication management 07/09: Continue current regimen and plans for stabilization and medication management 07/11: Increase Clozaril to 50 mg HS from 25 mg HS Decrease Lorazepam to 1.5 mg tid from [address] 07/13. Pt not wanting to talk of this today with tw. 07/13: Olanzapine 10 mg po bid 07/14/24: Decrease Lorazepam to 1 mg tid Intake/Output 07/15/24 patient uncooperative, disorganized and labile behavior- refusing medications- had unit on lock down today- while nursing attempted to help patient stop screaming and throwing things in his room- 07/16 ? agitated catatonia- likely to need urgent ECT- if medically stable for it- and if court can be arranged soon enough- in any case will need medication soon- 07/17- ECT consult Increase Ativan to 2 mg tid Chlorpromazine 25 mg tid 07/18- Recompensated this afternoon, interactive, discussed his concerns about his developmental milestones. Waxing, Waning catatonia? 07/19- Continue tx 07/20: Continue current management and treatment plan. Remains isolated, with waxing and waning symptoms. Med compliant with modest effect. 07/21: Increase Chlorpromazine to 50 mg tid 07/24: Decrease Chlorpromazine to 25 mg tid Increase Lexapro to 10 mg daily 07/25 patient refuses to engage; catatonic like symptoms Patient educated on: diagnosis and therapeutic strategies Informed Consent: does not understand Reason for continued inpatient stay Substantial Risk for: inability to function Time Spent With Patient Time: Total time managing care of this patient today ____ minutes.
[2024-07-25 20:00] VITALS: BP 113/60; PULSE 93; RESP 16; TEMP 37.2; O2SAT 96
[2024-07-25] MEDS: Mirtazapine 15 MG TABLET 45 MG PO (21:22)
[2024-07-26 08:00] VITALS: BP 121/74; PULSE 123; RESP 18; TEMP 36.9; O2SAT 99
[2024-07-26] MEDS: OLANZapine ODT 10 MG TAB.RAPDIS TRANSLINGU ×2 (08:32→21:14)
[2024-07-26] MEDS: Empagliflozin 25 MG TABLET PO (08:32)
[2024-07-26] MEDS: LORazepam 1 MG TABLET 2 MG PO ×3 (08:32→21:13)
[2024-07-26] MEDS: chlorproMAZINE HCl 25 MG TABLET PO ×3 (08:32→21:14)
[2024-07-26] MEDS: Atorvastatin Calcium 40 MG TABLET PO (08:32)
[2024-07-26] MEDS: Escitalopram Oxalate 10 MG TABLET PO (08:32)
[2024-07-26] MEDS: Gabapentin 400 MG CAPSULE 800 MG PO ×3 (08:32→21:13)
[2024-07-26 08:56] LABS: Neut%MD 51.9 %; Neutrophils Absolute Auto 4.2 x10*3/uL (2.0-8.3)
[2024-07-26 09:07] LABS: Creatinine Clr Calc Pharmacy 126.5; Estimated Glomerular Filt Rate > 60
--- NOTE | 2024-07-26 11:06 | HO.PSYCHPN ---
Subjective Subjective Date of Service: 07/26/24 Reason For Visit: psychosis Subjective Notes: Section 7 Healthcare Proxy: No Guardianship: No Medical Problems Affecting Mental Status: No Interim History: Pt is his room, in bed. Talking a bit more today, improved eye contact. Stated he does not feel depressed or anxious. Minimal interaction in milieu, reports he is eating and drinking what I can . He denies issues of concern. I may shower tomorrow. Discussed Lexapro increase which he states he is tolerating. Medication Compliance: Yes Side effects from medications: No Attending Groups: No Review of Systems Acute medical concerns: No Medical Review of Systems: unchanged Review of Systems Review of Systems Denies Mental Status Exam Mental Status Exam Patient Appearance: Fatigued and Disheveled Patient Orientation: Person, Place and Situation Level of Consciousness: Alert Patient Behavior: Talkative and Poor Eye Contact Mood Description: Withdrawn and Depressed Affect Description: Flat Patient Cognition Impaired: No Ability to Follow Directions: Fair Speech Pattern: Spontaneous Speech Memory Description: Episodic Impaired Hallucinations: None Delusions: Not Present Thought Process: Rumination Thought Content: positive for [place], positive for Circumstantial and positive for Suicidal Ideation (denies) Depressive Symptoms: Diff. Making Decisions, Isolating-Friends/Family, Low Self Esteem and Loss of Energy Judgement: Poor Diagnostics Vital Signs (24Hr): Vital Signs - 24 hr 07/25/24 20:00 07/26/24 08:00 Temperature 98.9 F 98.5 F Pulse Rate 93 123 H Respiratory Rate 16 18 Blood Pressure 113/60 121/74 Pulse Oximetry 96 99 Oxygen Delivery Method Room Air Room Air BMI result Body Mass Index 32.5 Labs 06/28/24 17:51 07/26/24 08:41 Labs: Laboratory Results - last 48 hr 07/24/24 07/26/24 12:08 08:41 Absolute Neuts (auto) 4.2 Creatinine 1.01 0.91 Estim Creat Clear Calc 113.9 126.5 Estimated GFR > 60 > 60 Imaging Radiology Impressions: ITS Impressions Chest X-Ray 06/28/24 20:45 IMPRESSION: *Low lung volumes; otherwise, no cardiopulmonary abnormalities identified. *Moderate convex rightward scoliosis of the thoracic spine. Electronically signed by: Ran Castaneda MD 06/29/2024 12:[address] [address] 06/28/24 20:53 IMPRESSION: 1. No acute intracranial pathology. 2. Mild cerebral volume loss and mild chronic microangiopathy. Electronically signed by: Brandon Smith MD 06/28/2024 11:49 PM [facility] Medications Medications Current Medications Acetaminophen (Acetaminophen 325 Mg Tablet) 650 mg PO Q6H PRN PRN Reason: Headache/Pain Mild Scale (1-3) Al Hydroxide/Mg Hydroxide (Magnesium Hydrox/Alum Hydrox 30 Ml Oral.Susp) 30 ml PO Q6H PRN PRN Reason: Heartburn/Nausea Atorvastatin Calcium (Atorvastatin Calcium 40 Mg Tablet) 40 mg PO DAILY [facility] Last Admin: 07/26/24 08:32 Dose: 40 mg Chlorpromazine HCl (Chlorpromazine Hcl 25 Mg Tablet) 25 mg PO TID [facility] Last Admin: 07/26/24 08:32 Dose: 25 mg Empagliflozin (Empagliflozin 25 Mg Tablet) 25 mg PO DAILY [facility] Last Admin: 07/26/24 08:32 Dose: 25 mg Escitalopram Oxalate (Escitalopram Oxalate 10 Mg Tablet) 10 mg PO DAILY [facility] Last Admin: 07/26/24 08:32 Dose: 10 mg Gabapentin (Gabapentin 400 Mg Capsule) 800 mg PO TID [facility] Last Admin: 07/26/24 08:32 Dose: 800 mg Hydroxyzine HCl (Hydroxyzine Hcl 25 Mg Tablet) 25 mg PO Q6H PRN PRN Reason: Anxiety Loperamide HCl (Loperamide Hcl 2 Mg Capsule) 2 mg PO Q6H PRN PRN Reason: Diarrhea Last Admin: 07/01/24 10:23 Dose: 2 mg Lorazepam (Lorazepam 1 Mg Tablet) 2 mg PO TID [facility] Last Admin: 07/26/24 08:32 Dose: 2 mg Magnesium Hydroxide (Milk Of Magnesia 30 Ml Oral.Susp) 30 ml PO DAILY PRN PRN Reason: Constipation Metformin HCl (Metformin Hcl 1,000 Mg Tablet) 1,000 mg PO BID [facility] Last Admin: 07/01/24 21:13 Dose: Not Given Metoprolol Succinate (Metoprolol Succinate Er 25 Mg Tab.Er.24h) 25 mg PO DAILY [facility]; Protocol Last Admin: 07/26/24 08:46 Dose: Not Given Mirtazapine (Mirtazapine 15 Mg Tablet) 45 mg PO BEDTIME [facility] Last Admin: 07/25/24 21:22 Dose: 45 mg Nicotine Polacrilex (Nicotine Polacrilex 2 Mg Gum) 4 mg BUCCAL Q2H PRN PRN Reason: Nicotine Cravings Olanzapine (Olanzapine Odt 10 Mg Tab.Rapdis) 5 mg TRANSLINGU Q4H PRN PRN Reason: anxiety/agitation Last Admin: 07/13/24 12:13 Dose: 5 mg Olanzapine (Olanzapine Odt 10 Mg Tab.Rapdis) 10 mg TRANSLINGU BID [facility] Last Admin: 07/26/24 08:32 Dose: 10 mg Trazodone HCl (Trazodone Hcl 50 Mg Tablet) 50 mg PO BEDTIME MRX1 PRN PRN Reason: Insomnia Allergies Allergies Allergy/AdvReac Type Severity Reaction Status Date / Time haloperidol [From Haldol] Allergy Intermediate Agitated Verified 06/28/24 17:33 lithium Allergy Intermediate Agitated Verified 06/28/24 17:33 oxcarbazepine Allergy Unknown RASH Verified 06/28/24 17:33 [From TRILEPTAL] fluphenazine [From Prolixin] Allergy akathisia Verified 06/28/24 17:33 Assessment & Plan Assessment & Plan (1) Schizoaffective disorder: Status: Acute Code(s): F25.9 - Schizoaffective disorder, unspecified Plan 06/29: restart/continue discharge meds from most recent hospitalization. change to ODT what can be changed to ODT in the hopes that stomach complaint is driven by psychosis and will resolve with adequate neuroleptic and anxiolytic Tx. 06/30: apparently catatonic this morning. per RN, pt has not taken any medications since admission. will add ativan 2 mg TID, staff development coordinator rn to strongly and repeatedly encourage pt to take medication. apparently, this approach worked during most recent admission on M3 with similar presentation. 07/01: Started being compliant. More responsive. Will hold Glucophage due to diarrhea. Imodium. Continue other medications. 07/02: Increase Clozaril to 50 mg HS. DC ODT Clonazepam now that he can swallow OK. Lower Ativan to 1 mg TID. 07/03: Continue current plan. On 07/04 increase Clozaril to 100 mg. 07/05: Pt did agree to labs. If he refuses meds this evening will file Section Seven for consideration. 07/07: Lactulose 30 cc x 1 for pt report of constipation. Continue regime Support, offer encouragement with current stressor, encourage communication with team. 07/08: Continue current regimen and plans for stabilization and medication management 07/09: Continue current regimen and plans for stabilization and medication management 07/11: Increase Clozaril to 50 mg HS from 25 mg HS Decrease Lorazepam to 1.5 mg tid from [address] 07/13. Pt not wanting to talk of this today with tw. 07/13: Olanzapine 10 mg po bid 07/14/24: Decrease Lorazepam to 1 mg tid Intake/Output 07/15/24 patient uncooperative, disorganized and labile behavior- refusing medications- had unit on lock down today- while nursing attempted to help patient stop screaming and throwing things in his room- 07/16 ? agitated catatonia- likely to need urgent ECT- if medically stable for it- and if court can be arranged soon enough- in any case will need medication soon- 07/17- ECT consult Increase Ativan to 2 mg tid Chlorpromazine 25 mg tid 07/18- Recompensated this afternoon, interactive, discussed his concerns about his developmental milestones. Waxing, Waning catatonia? 07/19- Continue tx 07/20: Continue current management and treatment plan. Remains isolated, with waxing and waning symptoms. Med compliant with modest effect. 07/21: Increase Chlorpromazine to 50 mg tid 07/24: Decrease Chlorpromazine to 25 mg tid Increase Lexapro to 10 mg daily 07/26: Some improvement-continue regime,plan. Reason for continued inpatient stay Substantial Risk for: rapid decompensation Time Spent With Patient Time: Total time managing care of this patient today ____ minutes.
[2024-07-26 20:00] VITALS: BP 118/62; PULSE 106; TEMP 36.4; O2SAT 96
[2024-07-26] MEDS: Mirtazapine 15 MG TABLET 45 MG PO (21:12)
[2024-07-27 07:00] VITALS: BMI 23.2
[2024-07-27 08:00] VITALS: BP 112/62; PULSE 104; RESP 16; O2SAT 97
[2024-07-27] MEDS: Metoprolol Succinate ER 25 MG TAB.ER.24H PO (08:39)
[2024-07-27] MEDS: Gabapentin 400 MG CAPSULE 800 MG PO ×3 (08:39→21:20)
[2024-07-27] MEDS: Atorvastatin Calcium 40 MG TABLET PO (08:39)
[2024-07-27] MEDS: LORazepam 1 MG TABLET 2 MG PO ×3 (08:39→21:20)
[2024-07-27] MEDS: OLANZapine ODT 10 MG TAB.RAPDIS TRANSLINGU ×2 (08:39→21:21)
[2024-07-27] MEDS: Empagliflozin 25 MG TABLET PO (08:39)
[2024-07-27] MEDS: chlorproMAZINE HCl 25 MG TABLET PO ×3 (08:39→21:20)
[2024-07-27] MEDS: Escitalopram Oxalate 10 MG TABLET PO (08:39)
--- NOTE | 2024-07-27 09:52 | P.PNPSI_ITS ---
Subjective Subjective Date of Service: 07/27/24 Reason For Visit: psychosis Subjective Notes: Section [facility] Healthcare Proxy: No Guardianship: No Medical Problems Affecting Mental Status: No Interim History: Pt is improved today. He is in his room, awake, alert, sitting up in bed, initiates dialogue. Hopes to shower this evening. Believes increase in antidepressant earlier this week has been useful. Reports lowered sx of depression, anxiety. Discussed weight loss. Discussed use of Trulicity prior to admission and pleased that it helped him to lose weight, states he feels better at a lower weight. Denies current concerns/worries. States he is unsure why he has been ill, little memory of most of it today he reports. Reports feeling safe on the unit with team and peers. Diagnostics Vital Signs (24Hr): Vital Signs - 24 hr 07/26/24 20:00 Temperature 97.6 F Pulse Rate 106 H Blood Pressure 118/62 Pulse Oximetry 96 Oxygen Delivery Method Room Air BMI result Body Mass Index 32.5 Labs 06/28/24 17:51 07/26/24 08:41 Labs: Laboratory Results - last 48 hr 07/26/24 08:41 Absolute Neuts (auto) 4.2 Creatinine 0.91 Estim Creat Clear Calc 126.5 Estimated GFR > 60 Imaging Radiology Impressions: ITS Impressions Chest X-Ray 06/28/24 20:45 IMPRESSION: *Low lung volumes; otherwise, no cardiopulmonary abnormalities identified. *Moderate convex rightward scoliosis of the thoracic spine. Electronically signed by: Ran Castaneda MD 06/29/2024 12:03 AM EST RP Head CT 06/28/24 20:53 IMPRESSION: 1. No acute intracranial pathology. 2. Mild cerebral volume loss and mild chronic microangiopathy. Electronically signed by: Brandon Smith MD 06/28/2024 11:49 PM EST RP Medications Medications Current Medications Acetaminophen (Acetaminophen 325 Mg Tablet) 650 mg PO Q6H PRN PRN Reason: Headache/Pain Mild Scale (1-3) Al Hydroxide/Mg Hydroxide (Magnesium Hydrox/Alum Hydrox 30 Ml Oral.Susp) 30 ml PO Q6H PRN PRN Reason: Heartburn/Nausea Atorvastatin Calcium (Atorvastatin Calcium 40 Mg Tablet) 40 mg PO DAILY [facility] Last Admin: 07/27/24 08:39 Dose: 40 mg Chlorpromazine HCl (Chlorpromazine Hcl 25 Mg Tablet) 25 mg PO TID [facility] Last Admin: 07/27/24 08:39 Dose: 25 mg Empagliflozin (Empagliflozin 25 Mg Tablet) 25 mg PO DAILY [facility] Last Admin: 07/27/24 08:39 Dose: 25 mg Escitalopram Oxalate (Escitalopram Oxalate 10 Mg Tablet) 10 mg PO DAILY [facility] Last Admin: 07/27/24 08:39 Dose: 10 mg Gabapentin (Gabapentin 400 Mg Capsule) 800 mg PO TID [facility] Last Admin: 07/27/24 08:39 Dose: 800 mg Hydroxyzine HCl (Hydroxyzine Hcl 25 Mg Tablet) 25 mg PO Q6H PRN PRN Reason: Anxiety Loperamide HCl (Loperamide Hcl 2 Mg Capsule) 2 mg PO Q6H PRN PRN Reason: Diarrhea Last Admin: 07/01/24 10:23 Dose: 2 mg Lorazepam (Lorazepam 1 Mg Tablet) 2 mg PO TID [facility] Last Admin: 07/27/24 08:39 Dose: 2 mg Magnesium Hydroxide (Milk Of Magnesia 30 Ml Oral.Susp) 30 ml PO DAILY PRN PRN Reason: Constipation Metformin HCl (Metformin Hcl 1,000 Mg Tablet) 1,000 mg PO BID [facility] Last Admin: 07/01/24 21:13 Dose: Not Given Metoprolol Succinate (Metoprolol Succinate Er 25 Mg Tab.Er.24h) 25 mg PO DAILY [facility]; Protocol Last Admin: 07/27/24 08:39 Dose: 25 mg Mirtazapine (Mirtazapine 15 Mg Tablet) 45 mg PO BEDTIME [facility] Last Admin: 07/26/24 21:12 Dose: 45 mg Nicotine Polacrilex (Nicotine Polacrilex 2 Mg Gum) 4 mg BUCCAL Q2H PRN PRN Reason: Nicotine Cravings Olanzapine (Olanzapine Odt 10 Mg Tab.Rapdis) 5 mg TRANSLINGU Q4H PRN PRN Reason: anxiety/agitation Last Admin: 07/13/24 12:13 Dose: 5 mg Olanzapine (Olanzapine Odt 10 Mg Tab.Rapdis) 10 mg TRANSLINGU BID [facility] Last Admin: 07/27/24 08:39 Dose: 10 mg Trazodone HCl (Trazodone Hcl 50 Mg Tablet) 50 mg PO BEDTIME MRX1 PRN PRN Reason: Insomnia Allergies Allergies Allergy/AdvReac Type Severity Reaction Status Date / Time haloperidol [From Haldol] Allergy Intermediate Agitated Verified 06/28/24 17:33 lithium Allergy Intermediate Agitated Verified 06/28/24 17:33 oxcarbazepine Allergy Unknown RASH Verified 06/28/24 17:33 [From TRILEPTAL] fluphenazine [From Prolixin] Allergy akathisia Verified 06/28/24 17:33 Assessment & Plan Assessment & Plan (1) Schizoaffective disorder: Status: Acute Code(s): F25.9 - Schizoaffective disorder, unspecified Plan 06/29: restart/continue discharge meds from most recent hospitalization. change to ODT what can be changed to ODT in the hopes that stomach complaint is driven by psychosis and will resolve with adequate neuroleptic and anxiolytic Tx. 06/30: apparently catatonic this morning. per RN, pt has not taken any medications since admission. will add ativan 2 mg TID, staffing coordinator to strongly and repeatedly encourage pt to take medication. apparently, this approach worked during most recent admission on M3 with similar presentation. 07/01: Started being compliant. More responsive. Will hold Glucophage due to diarrhea. Imodium. Continue other medications. 07/02: Increase Clozaril to 50 mg HS. DC ODT Clonazepam now that he can swallow OK. Lower Ativan to 1 mg TID. 07/03: Continue current plan. On 07/04 increase Clozaril to 100 mg. 07/05: Pt did agree to labs. If he refuses meds this evening will file Section Seven for consideration. 07/07: Lactulose 30 cc x 1 for pt report of constipation. Continue regime Support, offer encouragement with current stressor, encourage communication with team. 07/08: Continue current regimen and plans for stabilization and medication management 07/09: Continue current regimen and plans for stabilization and medication management 07/11: Increase Clozaril to 50 mg HS from 25 mg HS Decrease Lorazepam to 1.5 mg tid from [address] 07/13. Pt not wanting to talk of this today with tw. 07/13: Olanzapine 10 mg po bid 07/14/24: Decrease Lorazepam to 1 mg tid Intake/Output 07/15/24 patient uncooperative, disorganized and labile behavior- refusing medications- had unit on lock down today- while nursing attempted to help patient stop screaming and throwing things in his room- 07/16 ? agitated catatonia- likely to need urgent ECT- if medically stable for it- and if court can be arranged soon enough- in any case will need medication soon- 07/17- ECT consult Increase Ativan to 2 mg tid Chlorpromazine 25 mg tid 07/18- Recompensated this afternoon, interactive, discussed his concerns about his developmental milestones. Waxing, Waning catatonia? 07/19- Continue tx 07/20: Continue current management and treatment plan. Remains isolated, with waxing and waning symptoms. Med compliant with modest effect. 07/21: Increase Chlorpromazine to 50 mg tid 07/24: Decrease Chlorpromazine to 25 mg tid Increase Lexapro to 10 mg daily 07/25 patient refuses to engage; catatonic like symptoms 07/27 pt is well engaged today, reports feeling improved. He discussed his use of Trulicity prior to admit. 02/2021 article identifies some possible yet undocumented sx which may have contributed to current presentation. We have yet to see a sustained period of stability and will continue to work toward this goal. Reason for continued inpatient stay Substantial Risk for: rapid decompensation Time Spent With Patient Time: Total time managing care of this patient today ____ minutes.
[2024-07-27 20:00] VITALS: BP 99/58; PULSE 96; RESP 18; TEMP 36.5; O2SAT 99
[2024-07-27] MEDS: Mirtazapine 15 MG TABLET 45 MG PO (21:20)
[2024-07-28 08:35] VITALS: BP 119/60; PULSE 101; RESP 16; TEMP 36.4; O2SAT 96
[2024-07-28] MEDS: Gabapentin 400 MG CAPSULE 800 MG PO ×3 (08:39→20:31)
[2024-07-28] MEDS: Escitalopram Oxalate 10 MG TABLET PO (08:39)
[2024-07-28] MEDS: Atorvastatin Calcium 40 MG TABLET PO (08:39)
[2024-07-28] MEDS: Empagliflozin 25 MG TABLET PO (08:39)
[2024-07-28] MEDS: Metoprolol Succinate ER 25 MG TAB.ER.24H PO (08:39)
[2024-07-28] MEDS: LORazepam 1 MG TABLET 2 MG PO ×3 (08:39→20:32)
[2024-07-28] MEDS: OLANZapine ODT 10 MG TAB.RAPDIS TRANSLINGU ×2 (08:39→20:31)
[2024-07-28] MEDS: chlorproMAZINE HCl 25 MG TABLET PO ×3 (08:39→20:31)
--- NOTE | 2024-07-28 10:31 | HO.PSYCHPN ---
Subjective Subjective Date of Service: 07/28/24 Reason For Visit: psychosis Subjective Notes: Section 7 Healthcare Proxy: No Guardianship: No Medical Problems Affecting Mental Status: No Interim History: Much improved today. In the milieu, approaches tw to initiate discussion. Alert, oriented, conversation on track. Attended group, reports he won his [email or web address] game today Spontaneous smile, laughs, well engaged. Denies SI/HI/[facility] OP team report a possible precipitant is the loss of his PCP mid 2023. This PCP will be returning to work with pt in 2024. Medication Compliance: Yes Side effects from medications: No Attending Groups: Yes Review of Systems Acute medical concerns: No Review of Systems Review of Systems Denies today Mental Status Exam Mental Status Exam Patient Appearance: Appropriate Patient Orientation: Person, Place, Time and Situation Level of Consciousness: Alert Patient Behavior: Talkative and Good Eye Contact Mood Description: Appropriate and Constricted Affect Description: Appropriate Patient Cognition Impaired: No Ability to Follow Directions: Good Speech Pattern: Spontaneous Speech Memory Description: Episodic Impaired Hallucinations: None Delusions: Not Present Thought Process: Intact Thought Content: positive for Intact, positive for [place] and positive for Suicidal Ideation (denies) Depressive Symptoms: Thoughts of /Suicide (denies) Judgement: Fair Diagnostics Vital Signs (24Hr): Vital Signs - 24 hr 07/27/24 20:00 07/28/24 08:35 Temperature 97.7 F 97.5 F Pulse Rate 96 101 H Respiratory Rate 18 16 Blood Pressure 99/58 L 119/60 Pulse Oximetry 99 96 Oxygen Delivery Method Room Air Room Air BMI result Body Mass Index 23.2 Labs 06/28/24 17:51 07/26/24 08:41 Imaging Radiology Impressions: ITS Impressions Chest X-Ray 06/28/24 20:45 IMPRESSION: *Low lung volumes; otherwise, no cardiopulmonary abnormalities identified. *Moderate convex rightward scoliosis of the thoracic spine. Electronically signed by: Ran Castaneda MD 06/29/2024 12:03 AM EST RP Head CT 06/28/24 20:53 IMPRESSION: 1. No acute intracranial pathology. 2. Mild cerebral volume loss and mild chronic microangiopathy. Electronically signed by: Brandon Smith MD 06/28/2024 11:49 PM EST RP Medications Medications Current Medications Acetaminophen (Acetaminophen 325 Mg Tablet) 650 mg PO Q6H PRN PRN Reason: Headache/Pain Mild Scale (1-3) Al Hydroxide/Mg Hydroxide (Magnesium Hydrox/Alum Hydrox 30 Ml Oral.Susp) 30 ml PO Q6H PRN PRN Reason: Heartburn/Nausea Atorvastatin Calcium (Atorvastatin Calcium 40 Mg Tablet) 40 mg PO DAILY [facility] Last Admin: 07/28/24 08:39 Dose: 40 mg Chlorpromazine HCl (Chlorpromazine Hcl 25 Mg Tablet) 25 mg PO TID [facility] Last Admin: 07/28/24 08:39 Dose: 25 mg Empagliflozin (Empagliflozin 25 Mg Tablet) 25 mg PO DAILY [facility] Last Admin: 07/28/24 08:39 Dose: 25 mg Escitalopram Oxalate (Escitalopram Oxalate 10 Mg Tablet) 10 mg PO DAILY [facility] Last Admin: 07/28/24 08:39 Dose: 10 mg Gabapentin (Gabapentin 400 Mg Capsule) 800 mg PO TID [facility] Last Admin: 07/28/24 08:39 Dose: 800 mg Hydroxyzine HCl (Hydroxyzine Hcl 25 Mg Tablet) 25 mg PO Q6H PRN PRN Reason: Anxiety Loperamide HCl (Loperamide Hcl 2 Mg Capsule) 2 mg PO Q6H PRN PRN Reason: Diarrhea Last Admin: 07/01/24 10:23 Dose: 2 mg Lorazepam (Lorazepam 1 Mg Tablet) 2 mg PO TID [facility] Last Admin: 07/28/24 08:39 Dose: 2 mg Magnesium Hydroxide (Milk Of Magnesia 30 Ml Oral.Susp) 30 ml PO DAILY PRN PRN Reason: Constipation Metformin HCl (Metformin Hcl 1,000 Mg Tablet) 1,000 mg PO BID [facility] Last Admin: 07/01/24 21:13 Dose: Not Given Metoprolol Succinate (Metoprolol Succinate Er 25 Mg Tab.Er.24h) 25 mg PO DAILY [facility]; Protocol Last Admin: 07/28/24 08:39 Dose: 25 mg Mirtazapine (Mirtazapine 15 Mg Tablet) 45 mg PO BEDTIME [facility] Last Admin: 07/27/24 21:20 Dose: 45 mg Nicotine Polacrilex (Nicotine Polacrilex 2 Mg Gum) 4 mg BUCCAL Q2H PRN PRN Reason: Nicotine Cravings Olanzapine (Olanzapine Odt 10 Mg Tab.Rapdis) 5 mg TRANSLINGU Q4H PRN PRN Reason: anxiety/agitation Last Admin: 07/13/24 12:13 Dose: 5 mg Olanzapine (Olanzapine Odt 10 Mg Tab.Rapdis) 10 mg TRANSLINGU BID [facility] Last Admin: 07/28/24 08:39 Dose: 10 mg Trazodone HCl (Trazodone Hcl 50 Mg Tablet) 50 mg PO BEDTIME MRX1 PRN PRN Reason: Insomnia Allergies Allergies Allergy/AdvReac Type Severity Reaction Status Date / Time haloperidol [From Haldol] Allergy Intermediate Agitated Verified 06/28/24 17:33 lithium Allergy Intermediate Agitated Verified 06/28/24 17:33 oxcarbazepine Allergy Unknown RASH Verified 06/28/24 17:33 [From TRILEPTAL] fluphenazine [From Prolixin] Allergy akathisia Verified 06/28/24 17:33 Assessment & Plan Assessment & Plan (1) Schizoaffective disorder: Status: Acute Code(s): F25.9 - Schizoaffective disorder, unspecified Plan 06/29: restart/continue discharge meds from most recent hospitalization. change to ODT what can be changed to ODT in the hopes that stomach complaint is driven by psychosis and will resolve with adequate neuroleptic and anxiolytic Tx. 06/30: apparently catatonic this morning. per RN, pt has not taken any medications since admission. will add ativan 2 mg TID, catering staff member to strongly and repeatedly encourage pt to take medication. apparently, this approach worked during most recent admission on M3 with similar presentation. 07/01: Started being compliant. More responsive. Will hold Glucophage due to diarrhea. Imodium. Continue other medications. 07/02: Increase Clozaril to 50 mg HS. DC ODT Clonazepam now that he can swallow OK. Lower Ativan to 1 mg TID. 07/03: Continue current plan. On 07/04 increase Clozaril to 100 mg. 07/05: Pt did agree to labs. If he refuses meds this evening will file [facility] for consideration. 07/07: Lactulose 30 cc x 1 for pt report of constipation. Continue regime Support, offer encouragement with current stressor, encourage communication with team. 07/08: Continue current regimen and plans for stabilization and medication management 07/09: Continue current regimen and plans for stabilization and medication management 07/11: Increase Clozaril to 50 mg HS from 25 mg HS Decrease Lorazepam to 1.5 mg tid from [address] 07/13. Pt not wanting to talk of this today with tw. 07/13: Olanzapine 10 mg po bid 07/14/24: Decrease Lorazepam to 1 mg tid Intake/Output 07/15/24 patient uncooperative, disorganized and labile behavior- refusing medications- had unit on lock down today- while nursing attempted to help patient stop screaming and throwing things in his room- 07/16 ? agitated catatonia- likely to need urgent ECT- if medically stable for it- and if court can be arranged soon enough- in any case will need medication soon- 07/17- ECT consult Increase Ativan to 2 mg tid Chlorpromazine 25 mg tid 07/18- Recompensated this afternoon, interactive, discussed his concerns about his developmental milestones. Waxing, Waning catatonia? 07/19- Continue tx 07/20: Continue current management and treatment plan. Remains isolated, with waxing and waning symptoms. Med compliant with modest effect. 07/21: Increase Chlorpromazine to 50 mg tid 07/24: Decrease Chlorpromazine to 25 mg tid Increase Lexapro to 10 mg daily 07/25 patient refuses to engage; catatonic like symptoms 07/28 improved today. Continue current plan/regime Antidepressant increased 07/24- observe for induced joe. Reason for continued inpatient stay Substantial Risk for: rapid decompensation and med/psych decompensation Time Spent With Patient Time: Total time managing care of this patient today ____ minutes.
[2024-07-28 20:00] VITALS: BP 131/62; PULSE 95; TEMP 36.4; O2SAT 100
[2024-07-28] MEDS: Mirtazapine 15 MG TABLET 45 MG PO (20:32)
[2024-07-29] MEDS: Escitalopram Oxalate 10 MG TABLET PO (08:40)
[2024-07-29] MEDS: Gabapentin 400 MG CAPSULE 800 MG PO ×3 (08:40→21:20)
[2024-07-29] MEDS: Empagliflozin 25 MG TABLET PO (08:40)
[2024-07-29] MEDS: LORazepam 1 MG TABLET 2 MG PO ×3 (08:40→21:21)
[2024-07-29] MEDS: Metoprolol Succinate ER 25 MG TAB.ER.24H PO (08:40)
[2024-07-29] MEDS: Atorvastatin Calcium 40 MG TABLET PO (08:40)
[2024-07-29] MEDS: OLANZapine ODT 10 MG TAB.RAPDIS TRANSLINGU ×2 (08:40→21:20)
[2024-07-29] MEDS: chlorproMAZINE HCl 25 MG TABLET PO ×3 (08:40→21:20)
[2024-07-29 08:42] VITALS: BP 101/59; PULSE 98; RESP 16; TEMP 37.1; O2SAT 99
--- NOTE | 2024-07-29 09:55 | P.PNPSI_ITS ---
Subjective Subjective Date of Service: 07/29/24 Reason For Visit: psychosis Interim History: Met with patient; discussed with team says he is feeling better and is with obviously brighter affect; says he thinks lexapro is helping saying both anxiety and depression improved; he agrees to increase. Staff report patient with good behavioral and impulse control, eating well and not making any inappropriate comments, appropriate in the milieu Mental Status Exam Mental Status Exam Patient Appearance: Disheveled and Malodorous Patient Orientation: Person, Place, Time and Situation Level of Consciousness: Alert Patient Behavior: Talkative and Good Eye Contact Mood Description: Appropriate ( better ) Affect Description: Calm and Appropriate Patient Cognition Impaired: No Ability to Follow Directions: Fair Speech Pattern: Spontaneous Speech Memory Description: Episodic Impaired Hallucinations: None Delusions: Not Present Thought Process: Intact and Goal Oriented Thought Content: positive for Intact, positive for [place] and positive for Suicidal Ideation (denies) Judgement and Insight: Significantly improving Diagnostics Vital Signs (24Hr): Vital Signs - 24 hr 07/28/24 20:00 07/29/24 08:42 Temperature 97.5 F 98.7 F Pulse Rate 95 98 Respiratory Rate 16 Blood Pressure 131/62 101/59 L Pulse Oximetry 100 99 Oxygen Delivery Method Room Air Room Air BMI result Body Mass Index 23.2 Labs 06/28/24 17:51 07/26/24 08:41 Imaging Radiology Impressions: ITS Impressions Chest X-Ray 06/28/24 20:45 IMPRESSION: *Low lung volumes; otherwise, no cardiopulmonary abnormalities identified. *Moderate convex rightward scoliosis of the thoracic spine. Electronically signed by: Ran Castaneda MD 06/29/2024 12:03 AM EST RP Head CT 06/28/24 20:53 IMPRESSION: 1. No acute intracranial pathology. 2. Mild cerebral volume loss and mild chronic microangiopathy. Electronically signed by: Brandon Smith MD 06/28/2024 11:49 PM EST RP Medications Medications Current Medications Acetaminophen (Acetaminophen 325 Mg Tablet) 650 mg PO Q6H PRN PRN Reason: Headache/Pain Mild Scale (1-3) Al Hydroxide/Mg Hydroxide (Magnesium Hydrox/Alum Hydrox 30 Ml Oral.Susp) 30 ml PO Q6H PRN PRN Reason: Heartburn/Nausea Atorvastatin Calcium (Atorvastatin Calcium 40 Mg Tablet) 40 mg PO DAILY [facility] Last Admin: 07/29/24 08:40 Dose: 40 mg Chlorpromazine HCl (Chlorpromazine Hcl 25 Mg Tablet) 25 mg PO TID [facility] Last Admin: 07/29/24 08:40 Dose: 25 mg Empagliflozin (Empagliflozin 25 Mg Tablet) 25 mg PO DAILY [facility] Last Admin: 07/29/24 08:40 Dose: 25 mg Escitalopram Oxalate (Escitalopram Oxalate 10 Mg Tablet) 10 mg PO DAILY [facility] Last Admin: 07/29/24 08:40 Dose: 10 mg Gabapentin (Gabapentin 400 Mg Capsule) 800 mg PO TID [facility] Last Admin: 07/29/24 08:40 Dose: 800 mg Hydroxyzine HCl (Hydroxyzine Hcl 25 Mg Tablet) 25 mg PO Q6H PRN PRN Reason: Anxiety Loperamide HCl (Loperamide Hcl 2 Mg Capsule) 2 mg PO Q6H PRN PRN Reason: Diarrhea Last Admin: 07/01/24 10:23 Dose: 2 mg Lorazepam (Lorazepam 1 Mg Tablet) 2 mg PO TID [facility] Last Admin: 07/29/24 08:40 Dose: 2 mg Magnesium Hydroxide (Milk Of Magnesia 30 Ml Oral.Susp) 30 ml PO DAILY PRN PRN Reason: Constipation Metformin HCl (Metformin Hcl 1,000 Mg Tablet) 1,000 mg PO BID [facility] Last Admin: 07/01/24 21:13 Dose: Not Given Metoprolol Succinate (Metoprolol Succinate Er 25 Mg Tab.Er.24h) 25 mg PO DAILY [facility]; Protocol Last Admin: 07/29/24 08:40 Dose: 25 mg Mirtazapine (Mirtazapine 15 Mg Tablet) 45 mg PO BEDTIME [facility] Last Admin: 07/28/24 20:32 Dose: 45 mg Nicotine Polacrilex (Nicotine Polacrilex 2 Mg Gum) 4 mg BUCCAL Q2H PRN PRN Reason: Nicotine Cravings Olanzapine (Olanzapine Odt 10 Mg Tab.Rapdis) 5 mg TRANSLINGU Q4H PRN PRN Reason: anxiety/agitation Last Admin: 07/13/24 12:13 Dose: 5 mg Olanzapine (Olanzapine Odt 10 Mg Tab.Rapdis) 10 mg TRANSLINGU BID [facility] Last Admin: 07/29/24 08:40 Dose: 10 mg Trazodone HCl (Trazodone Hcl 50 Mg Tablet) 50 mg PO BEDTIME MRX1 PRN PRN Reason: Insomnia Allergies Allergies Allergy/AdvReac Type Severity Reaction Status Date / Time haloperidol [From Haldol] Allergy Intermediate Agitated Verified 06/28/24 17:33 lithium Allergy Intermediate Agitated Verified 06/28/24 17:33 oxcarbazepine Allergy Unknown RASH Verified 06/28/24 17:33 [From TRILEPTAL] fluphenazine [From Prolixin] Allergy akathisia Verified 06/28/24 17:33 Assessment & Plan Assessment & Plan (1) Schizoaffective disorder: Status: Acute Code(s): F25.9 - Schizoaffective disorder, unspecified Plan 06/29: restart/continue discharge meds from most recent hospitalization. change to ODT what can be changed to ODT in the hopes that stomach complaint is driven by psychosis and will resolve with adequate neuroleptic and anxiolytic Tx. 06/30: apparently catatonic this morning. per RN, pt has not taken any medications since admission. will add ativan 2 mg TID, staffing analyst to strongly and repeatedly encourage pt to take medication. apparently, this approach worked during most recent admission on M3 with similar presentation. 07/01: Started being compliant. More responsive. Will hold Glucophage due to diarrhea. Imodium. Continue other medications. 07/02: Increase Clozaril to 50 mg HS. DC ODT Clonazepam now that he can swallow OK. Lower Ativan to 1 mg TID. 07/03: Continue current plan. On 07/04 increase Clozaril to 100 mg. 07/05: Pt did agree to labs. If he refuses meds this evening will file [facility] for consideration. 07/07: Lactulose 30 cc x 1 for pt report of constipation. Continue regime Support, offer encouragement with current stressor, encourage communication with team. 07/08: Continue current regimen and plans for stabilization and medication management 07/09: Continue current regimen and plans for stabilization and medication management 07/11: Increase Clozaril to 50 mg HS from 25 mg HS Decrease Lorazepam to 1.5 mg tid from [address] 07/13. Pt not wanting to talk of this today with tw. 07/13: Olanzapine 10 mg po bid 07/14/24: Decrease Lorazepam to 1 mg tid Intake/Output 07/15/24 patient uncooperative, disorganized and labile behavior- refusing medications- had unit on lock down today- while nursing attempted to help patient stop screaming and throwing things in his room- 07/16 ? agitated catatonia- likely to need urgent ECT- if medically stable for it- and if court can be arranged soon enough- in any case will need medication soon- 07/17- ECT consult Increase Ativan to 2 mg tid Chlorpromazine 25 mg tid 07/18- Recompensated this afternoon, interactive, discussed his concerns about his developmental milestones. Waxing, Waning catatonia? 07/19- Continue tx 07/20: Continue current management and treatment plan. Remains isolated, with waxing and waning symptoms. Med compliant with modest effect. 07/21: Increase Chlorpromazine to 50 mg tid 07/24: Decrease Chlorpromazine to 25 mg tid Increase Lexapro to 10 mg daily 07/25 patient refuses to engage; catatonic like symptoms 07/28 improved today. Continue current plan/regime Antidepressant increased 07/24- observe for induced joe. 07/29 increased Lexapro to 20 mg; will continue to observe for manic symptoms Patient educated on: diagnosis, medication risk/benefits and therapeutic strategies Informed Consent: understands Reason for continued inpatient stay Substantial Risk for: rapid decompensation Time Spent With Patient Time: Total time managing care of this patient today ____ minutes.
[2024-07-29 20:00] VITALS: BP 118/66; PULSE 90; O2SAT 100
[2024-07-29] MEDS: Mirtazapine 15 MG TABLET 45 MG PO (21:20)
[2024-07-30] MEDS: LORazepam 1 MG TABLET 2 MG PO ×3 (08:35→21:00)
[2024-07-30] MEDS: chlorproMAZINE HCl 25 MG TABLET PO ×3 (08:35→21:00)
[2024-07-30] MEDS: Escitalopram Oxalate 20 MG TABLET PO (08:35)
[2024-07-30] MEDS: Gabapentin 400 MG CAPSULE 800 MG PO ×3 (08:35→21:00)
[2024-07-30] MEDS: Metoprolol Succinate ER 25 MG TAB.ER.24H PO (08:36)
[2024-07-30] MEDS: OLANZapine ODT 10 MG TAB.RAPDIS TRANSLINGU ×2 (08:36→21:01)
[2024-07-30] MEDS: Atorvastatin Calcium 40 MG TABLET PO (08:36)
[2024-07-30] MEDS: Empagliflozin 25 MG TABLET PO (08:36)
[2024-07-30 08:38] VITALS: BP 113/59; PULSE 81; RESP 16; TEMP 36.3; O2SAT 96
--- NOTE | 2024-07-30 10:42 | P.PNPSI_ITS ---
Subjective Subjective Date of Service: 07/30/24 Reason For Visit: psychosis Interim History: Met with patient; discussed with team Patient remains doing much better, friendly, in the milieu, eating and appropriate with peers and staff, even attending groups. Mental Status Exam Mental Status Exam Patient Appearance: Appropriate (Showered, groomed) Patient Orientation: Person, Place, Time and Situation Level of Consciousness: Alert Patient Behavior: Appropriate, Talkative and Good Eye Contact Mood Description: Appropriate ( Good ) Affect Description: Calm and Appropriate (Friendly) Patient Cognition Impaired: No Ability to Follow Directions: Fair Speech Pattern: Spontaneous Speech Memory Description: Episodic Impaired Hallucinations: None Delusions: Not Present Thought Process: Intact and Goal Oriented Thought Content: positive for Intact, positive for [place] and positive for Suicidal Ideation (None) Judgement: Fair Judgement and Insight: Much improved Diagnostics Vital Signs (24Hr): Vital Signs - 24 hr 07/29/24 20:00 07/30/24 08:38 Temperature 97.4 F Pulse Rate 90 81 Respiratory Rate 16 Blood Pressure 118/66 113/59 L Pulse Oximetry 100 96 Oxygen Delivery Method Room Air Room Air BMI result Body Mass Index 23.2 Labs 06/28/24 17:51 07/26/24 08:41 Imaging Radiology Impressions: ITS Impressions Chest X-Ray 06/28/24 20:45 IMPRESSION: *Low lung volumes; otherwise, no cardiopulmonary abnormalities identified. *Moderate convex rightward scoliosis of the thoracic spine. Electronically signed by: Ran Castaneda MD 06/29/2024 12:03 AM EST RP Head CT 06/28/24 20:53 IMPRESSION: 1. No acute intracranial pathology. 2. Mild cerebral volume loss and mild chronic microangiopathy. Electronically signed by: Brandon Smith MD 06/28/2024 11:49 PM EST RP Medications Medications Current Medications Acetaminophen (Acetaminophen 325 Mg Tablet) 650 mg PO Q6H PRN PRN Reason: Headache/Pain Mild Scale (1-3) Al Hydroxide/Mg Hydroxide (Magnesium Hydrox/Alum Hydrox 30 Ml Oral.Susp) 30 ml PO Q6H PRN PRN Reason: Heartburn/Nausea Atorvastatin Calcium (Atorvastatin Calcium 40 Mg Tablet) 40 mg PO DAILY [facility] Last Admin: 07/30/24 08:36 Dose: 40 mg Chlorpromazine HCl (Chlorpromazine Hcl 25 Mg Tablet) 25 mg PO TID [facility] Last Admin: 07/30/24 08:35 Dose: 25 mg Empagliflozin (Empagliflozin 25 Mg Tablet) 25 mg PO DAILY [facility] Last Admin: 07/30/24 08:36 Dose: 25 mg Escitalopram Oxalate (Escitalopram Oxalate 20 Mg Tablet) 20 mg PO DAILY [facility] Last Admin: 07/30/24 08:35 Dose: 20 mg Gabapentin (Gabapentin 400 Mg Capsule) 800 mg PO TID [facility] Last Admin: 07/30/24 08:35 Dose: 800 mg Hydroxyzine HCl (Hydroxyzine Hcl 25 Mg Tablet) 25 mg PO Q6H PRN PRN Reason: Anxiety Loperamide HCl (Loperamide Hcl 2 Mg Capsule) 2 mg PO Q6H PRN PRN Reason: Diarrhea Last Admin: 07/01/24 10:23 Dose: 2 mg Lorazepam (Lorazepam 1 Mg Tablet) 2 mg PO TID [facility] Last Admin: 07/30/24 08:35 Dose: 2 mg Magnesium Hydroxide (Milk Of Magnesia 30 Ml Oral.Susp) 30 ml PO DAILY PRN PRN Reason: Constipation Metformin HCl (Metformin Hcl 1,000 Mg Tablet) 1,000 mg PO BID [facility] Last Admin: 07/01/24 21:13 Dose: Not Given Metoprolol Succinate (Metoprolol Succinate Er 25 Mg Tab.Er.24h) 25 mg PO DAILY [facility]; Protocol Last Admin: 07/30/24 08:36 Dose: 25 mg Mirtazapine (Mirtazapine 15 Mg Tablet) 45 mg PO BEDTIME [facility] Last Admin: 07/29/24 21:20 Dose: 45 mg Nicotine Polacrilex (Nicotine Polacrilex 2 Mg Gum) 4 mg BUCCAL Q2H PRN PRN Reason: Nicotine Cravings Olanzapine (Olanzapine Odt 10 Mg Tab.Rapdis) 5 mg TRANSLINGU Q4H PRN PRN Reason: anxiety/agitation Last Admin: 07/13/24 12:13 Dose: 5 mg Olanzapine (Olanzapine Odt 10 Mg Tab.Rapdis) 10 mg TRANSLINGU BID [facility] Last Admin: 07/30/24 08:36 Dose: 10 mg Trazodone HCl (Trazodone Hcl 50 Mg Tablet) 50 mg PO BEDTIME MRX1 PRN PRN Reason: Insomnia Allergies Allergies Allergy/AdvReac Type Severity Reaction Status Date / Time haloperidol [From Haldol] Allergy Intermediate Agitated Verified 06/28/24 17:33 lithium Allergy Intermediate Agitated Verified 06/28/24 17:33 oxcarbazepine Allergy Unknown RASH Verified 06/28/24 17:33 [From TRILEPTAL] fluphenazine [From Prolixin] Allergy akathisia Verified 06/28/24 17:33 Assessment & Plan Assessment & Plan (1) Schizoaffective disorder: Status: Acute Code(s): F25.9 - Schizoaffective disorder, unspecified Plan 06/29: restart/continue discharge meds from most recent hospitalization. change to ODT what can be changed to ODT in the hopes that stomach complaint is driven by psychosis and will resolve with adequate neuroleptic and anxiolytic Tx. 06/30: apparently catatonic this morning. per RN, pt has not taken any medications since admission. will add ativan 2 mg TID, waitstaff to strongly and repeatedly encourage pt to take medication. apparently, this approach worked during most recent admission on M3 with similar presentation. 07/01: Started being compliant. More responsive. Will hold Glucophage due to diarrhea. Imodium. Continue other medications. 07/02: Increase Clozaril to 50 mg HS. DC ODT Clonazepam now that he can swallow OK. Lower Ativan to 1 mg TID. 07/03: Continue current plan. On 07/04 increase Clozaril to 100 mg. 07/05: Pt did agree to labs. If he refuses meds this evening will file [facility] for consideration. 07/07: Lactulose 30 cc x 1 for pt report of constipation. Continue regime Support, offer encouragement with current stressor, encourage communication with team. 07/08: Continue current regimen and plans for stabilization and medication management 07/09: Continue current regimen and plans for stabilization and medication management 07/11: Increase Clozaril to 50 mg HS from 25 mg HS Decrease Lorazepam to 1.5 mg tid from [address] 07/13. Pt not wanting to talk of this today with tw. 07/13: Olanzapine 10 mg po bid 07/14/24: Decrease Lorazepam to 1 mg tid Intake/Output 07/15/24 patient uncooperative, disorganized and labile behavior- refusing medications- had unit on lock down today- while nursing attempted to help patient stop screaming and throwing things in his room- 07/16 ? agitated catatonia- likely to need urgent ECT- if medically stable for it- and if court can be arranged soon enough- in any case will need medication soon- 07/17- ECT consult Increase Ativan to 2 mg tid Chlorpromazine 25 mg tid 07/18- Recompensated this afternoon, interactive, discussed his concerns about his developmental milestones. Waxing, Waning catatonia? 07/19- Continue tx 07/20: Continue current management and treatment plan. Remains isolated, with waxing and waning symptoms. Med compliant with modest effect. 07/21: Increase Chlorpromazine to 50 mg tid 07/24: Decrease Chlorpromazine to 25 mg tid Increase Lexapro to 10 mg daily 07/25 patient refuses to engage; catatonic like symptoms 07/28 improved today. Continue current plan/regime Antidepressant increased 07/24- observe for induced joe. 07/29 increased Lexapro to 20 mg; will continue to observe for manic symptoms 07/30 Patient remains doing much better, friendly, in the milieu, eating and appropriate with peers and staff, even attending groups and showered. -will DC I/O nos; patient eating and drinking well. Patient educated on: diagnosis and medication risk/benefits Informed Consent: understands Reason for continued inpatient stay Substantial Risk for: stable for discharge and rapid decompensation Time Spent With Patient Time: Total time managing care of this patient today ____ minutes.
[2024-07-30 19:52] VITALS: BP 97/57; PULSE 90; RESP 15; TEMP 36.4; O2SAT 99
[2024-07-30] MEDS: Mirtazapine 15 MG TABLET 45 MG PO (21:01)
[2024-07-31 09:26] VITALS: BP 119/70; PULSE 100; RESP 16; TEMP 36.1; O2SAT 99
[2024-07-31] MEDS: LORazepam 1 MG TABLET 2 MG PO ×3 (09:26→20:29)
[2024-07-31] MEDS: Metoprolol Succinate ER 25 MG TAB.ER.24H PO (09:26)
[2024-07-31] MEDS: OLANZapine ODT 10 MG TAB.RAPDIS TRANSLINGU ×2 (09:27→20:30)
[2024-07-31] MEDS: chlorproMAZINE HCl 25 MG TABLET PO ×3 (09:27→20:30)
[2024-07-31] MEDS: Escitalopram Oxalate 20 MG TABLET PO (09:27)
[2024-07-31] MEDS: Gabapentin 400 MG CAPSULE 800 MG PO ×3 (09:27→20:29)
[2024-07-31] MEDS: Atorvastatin Calcium 40 MG TABLET PO (09:27)
[2024-07-31] MEDS: Empagliflozin 25 MG TABLET PO (09:27)
--- NOTE | 2024-07-31 09:42 | P.PNPSI_ITS ---
Subjective Subjective Date of Service: 07/31/24 Reason For Visit: psychosis Subjective Notes: Section 7 Healthcare Proxy: No Guardianship: No Medical Problems Affecting Mental Status: No Interim History: Ed appears to continue to improve. Over the weekend Lexapro was increased to 20 mg, which he reports he is tolerating without adverse effects. He is more visable in the milieu, attending to ADL's, eating and drinking. He is better engaged in discussion in our one to one today, discussing trying to improve his self care and feeling improved with antidepressant treatment. Medication Compliance: Yes Side effects from medications: No Attending Groups: Intermittent Review of Systems Acute medical concerns: No Review of Systems Review of Systems Denies Mental Status Exam Mental Status Exam Patient Appearance: Appropriate Patient Orientation: Person, Place, Time and Situation Level of Consciousness: Alert Patient Behavior: Talkative and Good Eye Contact Mood Description: Depressed Affect Description: Flat Patient Cognition Impaired: No Ability to Follow Directions: Good Speech Pattern: Spontaneous Speech Memory Description: Episodic Impaired Hallucinations: None Delusions: Present Thought Process: Rumination Thought Content: positive for Per[place] Judgement: Fair Diagnostics Vital Signs (24Hr): Vital Signs - 24 hr 07/30/24 19:52 07/31/24 09:26 07/31/24 09:26 Temperature 97.6 F 97.0 F Pulse Rate 90 100 100 Respiratory Rate 15 16 Blood Pressure 97/57 L 119/70 119/70 Pulse Oximetry 99 99 Oxygen Delivery Method Room Air BMI result Body Mass Index 23.2 Labs 06/28/24 17:51 08/02/24 08:27 Imaging Radiology Impressions: ITS Impressions Chest X-Ray 06/28/24 20:45 IMPRESSION: *Low lung volumes; otherwise, no cardiopulmonary abnormalities identified. *Moderate convex rightward scoliosis of the thoracic spine. Electronically signed by: Ran Castaneda MD 06/29/2024 12:03 AM EST RP Head CT 06/28/24 20:53 IMPRESSION: 1. No acute intracranial pathology. 2. Mild cerebral volume loss and mild chronic microangiopathy. Electronically signed by: Brandon Smith MD 06/28/2024 11:49 PM EST RP Medications Medications Current Medications Acetaminophen (Acetaminophen 325 Mg Tablet) 650 mg PO Q6H PRN PRN Reason: Headache/Pain Mild Scale (1-3) Al Hydroxide/Mg Hydroxide (Magnesium Hydrox/Alum Hydrox 30 Ml Oral.Susp) 30 ml PO Q6H PRN PRN Reason: Heartburn/Nausea Atorvastatin Calcium (Atorvastatin Calcium 40 Mg Tablet) 40 mg PO DAILY [facility] Last Admin: 07/31/24 09:27 Dose: 40 mg Chlorpromazine HCl (Chlorpromazine Hcl 25 Mg Tablet) 25 mg PO TID [facility] Last Admin: 07/31/24 09:27 Dose: 25 mg Empagliflozin (Empagliflozin 25 Mg Tablet) 25 mg PO DAILY [facility] Last Admin: 07/31/24 09:27 Dose: 25 mg Escitalopram Oxalate (Escitalopram Oxalate 20 Mg Tablet) 20 mg PO DAILY [facility] Last Admin: 07/31/24 09:27 Dose: 20 mg Gabapentin (Gabapentin 400 Mg Capsule) 800 mg PO TID [facility] Last Admin: 07/31/24 09:27 Dose: 800 mg Hydroxyzine HCl (Hydroxyzine Hcl 25 Mg Tablet) 25 mg PO Q6H PRN PRN Reason: Anxiety Loperamide HCl (Loperamide Hcl 2 Mg Capsule) 2 mg PO Q6H PRN PRN Reason: Diarrhea Last Admin: 07/01/24 10:23 Dose: 2 mg Lorazepam (Lorazepam 1 Mg Tablet) 2 mg PO TID [facility] Last Admin: 07/31/24 09:26 Dose: 2 mg Magnesium Hydroxide (Milk Of Magnesia 30 Ml Oral.Susp) 30 ml PO DAILY PRN PRN Reason: Constipation Metformin HCl (Metformin Hcl 1,000 Mg Tablet) 1,000 mg PO BID [facility] Last Admin: 07/01/24 21:13 Dose: Not Given Metoprolol Succinate (Metoprolol Succinate Er 25 Mg Tab.Er.24h) 25 mg PO DAILY [facility]; Protocol Last Admin: 07/31/24 09:26 Dose: 25 mg Mirtazapine (Mirtazapine 15 Mg Tablet) 45 mg PO BEDTIME [facility] Last Admin: 07/30/24 21:01 Dose: 45 mg Nicotine Polacrilex (Nicotine Polacrilex 2 Mg Gum) 4 mg BUCCAL Q2H PRN PRN Reason: Nicotine Cravings Olanzapine (Olanzapine Odt 10 Mg Tab.Rapdis) 5 mg TRANSLINGU Q4H PRN PRN Reason: anxiety/agitation Last Admin: 07/13/24 12:13 Dose: 5 mg Olanzapine (Olanzapine Odt 10 Mg Tab.Rapdis) 10 mg TRANSLINGU BID [facility] Last Admin: 07/31/24 09:27 Dose: 10 mg Trazodone HCl (Trazodone Hcl 50 Mg Tablet) 50 mg PO BEDTIME MRX1 PRN PRN Reason: Insomnia Allergies Allergies Allergy/AdvReac Type Severity Reaction Status Date / Time haloperidol [From Haldol] Allergy Intermediate Agitated Verified 06/28/24 17:33 lithium Allergy Intermediate Agitated Verified 06/28/24 17:33 oxcarbazepine Allergy Unknown RASH Verified 06/28/24 17:33 [From TRILEPTAL] fluphenazine [From Prolixin] Allergy akathisia Verified 06/28/24 17:33 Assessment & Plan Assessment & Plan (1) Schizoaffective disorder: Status: Acute Code(s): F25.9 - Schizoaffective disorder, unspecified Plan 06/29: restart/continue discharge meds from most recent hospitalization. change to ODT what can be changed to ODT in the hopes that stomach complaint is driven by psychosis and will resolve with adequate neuroleptic and anxiolytic Tx. 06/30: apparently catatonic this morning. per RN, pt has not taken any medications since admission. will add ativan 2 mg TID, nursing staff development coordinator to strongly and repeatedly encourage pt to take medication. apparently, this approach worked during most recent admission on M3 with similar presentation. 07/01: Started being compliant. More responsive. Will hold Glucophage due to diarrhea. Imodium. Continue other medications. 07/02: Increase Clozaril to 50 mg HS. DC ODT Clonazepam now that he can swallow OK. Lower Ativan to 1 mg TID. 07/03: Continue current plan. On 07/04 increase Clozaril to 100 mg. 07/05: Pt did agree to labs. If he refuses meds this evening will file [facility] for consideration. 07/07: Lactulose 30 cc x 1 for pt report of constipation. Continue regime Support, offer encouragement with current stressor, encourage communication with team. 07/08: Continue current regimen and plans for stabilization and medication management 07/09: Continue current regimen and plans for stabilization and medication management 07/11: Increase Clozaril to 50 mg HS from 25 mg HS Decrease Lorazepam to 1.5 mg tid from [address] 07/13. Pt not wanting to talk of this today with tw. 07/13: Olanzapine 10 mg po bid 07/14/24: Decrease Lorazepam to 1 mg tid Intake/Output 07/15/24 patient uncooperative, disorganized and labile behavior- refusing medications- had unit on lock down today- while nursing attempted to help patient stop screaming and throwing things in his room- 07/16 ? agitated catatonia- likely to need urgent ECT- if medically stable for it- and if court can be arranged soon enough- in any case will need medication soon- 07/17- ECT consult Increase Ativan to 2 mg tid Chlorpromazine 25 mg tid 07/18- Recompensated this afternoon, interactive, discussed his concerns about his developmental milestones. Waxing, Waning catatonia? 07/19- Continue tx 07/20: Continue current management and treatment plan. Remains isolated, with waxing and waning symptoms. Med compliant with modest effect. 07/21: Increase Chlorpromazine to 50 mg tid 07/24: Decrease Chlorpromazine to 25 mg tid Increase Lexapro to 10 mg daily 07/25 patient refuses to engage; catatonic like symptoms 07/28 improved today. Continue current plan/regime Antidepressant increased 07/24- observe for induced joe. 07/29 increased Lexapro to 20 mg; will continue to observe for manic symptoms 07/30 Patient remains doing much better, friendly, in the milieu, eating and appropriate with peers and staff, even attending groups and showered. -will DC I/O nos; patient eating and drinking well. 07/31: Continue current regime and plan. Pt continues to improve. Reason for continued inpatient stay Substantial Risk for: rapid decompensation Time Spent With Patient Time: Total time managing care of this patient today ____ minutes.
[2024-07-31 19:57] VITALS: BP 116/56; PULSE 94; TEMP 36.8; O2SAT 97
[2024-07-31] MEDS: Mirtazapine 15 MG TABLET 45 MG PO (20:30)
[2024-08-01 08:00] VITALS: BP 116/67; PULSE 82; RESP 16; TEMP 36.3; O2SAT 97
[2024-08-01] MEDS: Gabapentin 400 MG CAPSULE 800 MG PO ×3 (08:35→20:37)
[2024-08-01] MEDS: Atorvastatin Calcium 40 MG TABLET PO (08:35)
[2024-08-01] MEDS: LORazepam 1 MG TABLET 2 MG PO ×3 (08:35→20:38)
[2024-08-01] MEDS: OLANZapine ODT 10 MG TAB.RAPDIS TRANSLINGU ×2 (08:35→20:37)
[2024-08-01] MEDS: Escitalopram Oxalate 20 MG TABLET PO (08:36)
[2024-08-01] MEDS: Metoprolol Succinate ER 25 MG TAB.ER.24H PO (08:36)
[2024-08-01] MEDS: Empagliflozin 25 MG TABLET PO (08:36)
[2024-08-01] MEDS: chlorproMAZINE HCl 25 MG TABLET PO ×3 (08:36→20:37)
--- NOTE | 2024-08-01 15:35 | P.PNPSI_ITS ---
Subjective Subjective Date of Service: 08/01/24 Reason For Visit: psychosis Subjective Notes: [facility] Healthcare Proxy: No Guardianship: No Medical Problems Affecting Mental Status: No Interim History: Ruddy continues to demonstrate improvement. Today, he discussed sobriety of ~20 years, but wanting to drink, namely wine coolers. He discussed his association of alcohol use with being increasingly social and wanting to be more connected when feeling better. Discussed developmental milestones he feels he has not met and is not going to meet. We discussed new research and ideas on alcohol consumption and trending decrease of social alcohol intake, replacing with different combinations of juice, seltzer and term of mocktail being a trend that is replacing social alcohol use. Discussed his improvement and discharge. I have only had a few days of feeling better, I will need more time. I am definitely not ready. Discussed sx of catatonia on admission, use of Lorazepam 6 mg daily and decline during this admission when tapering was attempted. Discussed this in terms of alcohol use and in terms of beginning another trial of tapering to assess if this med is needed. He will consider. OP Team will visit with pt on 08/02 to offer their opinion as to how he is progressing. Medication Compliance: Yes Side effects from medications: No Attending Groups: Yes Review of Systems Acute medical concerns: No Review of Systems Review of Systems Denies Mental Status Exam Mental Status Exam Patient Appearance: Appropriate Patient Orientation: Person, Place, Time and Situation Level of Consciousness: Alert Patient Behavior: Talkative and Good Eye Contact Mood Description: Depressed, Anxious and Apprehensive Affect Description: Anxious and Apprehensive Patient Cognition Impaired: No Ability to Follow Directions: Good Speech Pattern: Spontaneous Speech Memory Description: Episodic Impaired Hallucinations: None Delusions: Present Thought Content: positive for Perseveration Depressive Symptoms: Increased Anxiety Judgement: Fair Diagnostics Vital Signs (24Hr): Vital Signs - 24 hr 07/31/24 19:57 08/01/24 08:00 Temperature 98.2 F 97.4 F Pulse Rate 94 82 Respiratory Rate 16 Blood Pressure 116/56 L 116/67 Pulse Oximetry 97 97 Oxygen Delivery Method Room Air Room Air BMI result Body Mass Index 23.2 Labs 06/28/24 17:51 08/02/24 08:27 Imaging Radiology Impressions: ITS Impressions Chest X-Ray 06/28/24 20:45 IMPRESSION: *Low lung volumes; otherwise, no cardiopulmonary abnormalities identified. *Moderate convex rightward scoliosis of the thoracic spine. Electronically signed by: Ran Castaneda MD 06/29/2024 12:03 AM EST RP Head CT 06/28/24 20:53 IMPRESSION: 1. No acute intracranial pathology. 2. Mild cerebral volume loss and mild chronic microangiopathy. Electronically signed by: Brandon Smith MD 06/28/2024 11:49 PM EST RP Medications Medications Current Medications Acetaminophen (Acetaminophen 325 Mg Tablet) 650 mg PO Q6H PRN PRN Reason: Headache/Pain Mild Scale (1-3) Al Hydroxide/Mg Hydroxide (Magnesium Hydrox/Alum Hydrox 30 Ml Oral.Susp) 30 ml PO Q6H PRN PRN Reason: Heartburn/Nausea Atorvastatin Calcium (Atorvastatin Calcium 40 Mg Tablet) 40 mg PO DAILY [facility] Last Admin: 08/01/24 08:35 Dose: 40 mg Chlorpromazine HCl (Chlorpromazine Hcl 25 Mg Tablet) 25 mg PO TID [facility] Last Admin: 08/01/24 14:17 Dose: 25 mg Empagliflozin (Empagliflozin 25 Mg Tablet) 25 mg PO DAILY [facility] Last Admin: 08/01/24 08:36 Dose: 25 mg Escitalopram Oxalate (Escitalopram Oxalate 20 Mg Tablet) 20 mg PO DAILY [facility] Last Admin: 08/01/24 08:36 Dose: 20 mg Gabapentin (Gabapentin 400 Mg Capsule) 800 mg PO TID [facility] Last Admin: 08/01/24 14:16 Dose: 800 mg Hydroxyzine HCl (Hydroxyzine Hcl 25 Mg Tablet) 25 mg PO Q6H PRN PRN Reason: Anxiety Loperamide HCl (Loperamide Hcl 2 Mg Capsule) 2 mg PO Q6H PRN PRN Reason: Diarrhea Last Admin: 07/01/24 10:23 Dose: 2 mg Lorazepam (Lorazepam 1 Mg Tablet) 2 mg PO TID [facility] Last Admin: 08/01/24 14:17 Dose: 2 mg Magnesium Hydroxide (Milk Of Magnesia 30 Ml Oral.Susp) 30 ml PO DAILY PRN PRN Reason: Constipation Metformin HCl (Metformin Hcl 1,000 Mg Tablet) 1,000 mg PO BID [facility] Last Admin: 07/01/24 21:13 Dose: Not Given Metoprolol Succinate (Metoprolol Succinate Er 25 Mg Tab.Er.24h) 25 mg PO DAILY [facility]; Protocol Last Admin: 08/01/24 08:36 Dose: 25 mg Mirtazapine (Mirtazapine 15 Mg Tablet) 45 mg PO BEDTIME [facility] Last Admin: 07/31/24 20:30 Dose: 45 mg Nicotine Polacrilex (Nicotine Polacrilex 2 Mg Gum) 4 mg BUCCAL Q2H PRN PRN Reason: Nicotine Cravings Olanzapine (Olanzapine Odt 10 Mg Tab.Rapdis) 5 mg TRANSLINGU Q4H PRN PRN Reason: anxiety/agitation Last Admin: 07/13/24 12:13 Dose: 5 mg Olanzapine (Olanzapine Odt 10 Mg Tab.Rapdis) 10 mg TRANSLINGU BID [facility] Last Admin: 08/01/24 08:35 Dose: 10 mg Trazodone HCl (Trazodone Hcl 50 Mg Tablet) 50 mg PO BEDTIME MRX1 PRN PRN Reason: Insomnia Allergies Allergies Allergy/AdvReac Type Severity Reaction Status Date / Time haloperidol [From Haldol] Allergy Intermediate Agitated Verified 06/28/24 17:33 lithium Allergy Intermediate Agitated Verified 06/28/24 17:33 oxcarbazepine Allergy Unknown RASH Verified 06/28/24 17:33 [From TRILEPTAL] fluphenazine [From Prolixin] Allergy akathisia Verified 06/28/24 17:33 Assessment & Plan Assessment & Plan (1) Schizoaffective disorder: Status: Acute Code(s): F25.9 - Schizoaffective disorder, unspecified Plan 06/29: restart/continue discharge meds from most recent hospitalization. change to ODT what can be changed to ODT in the hopes that stomach complaint is driven by psychosis and will resolve with adequate neuroleptic and anxiolytic Tx. 06/30: apparently catatonic this morning. per RN, pt has not taken any medications since admission. will add ativan 2 mg TID, staff occupational therapist to strongly and repeatedly encourage pt to take medication. apparently, this approach worked during most recent admission on M3 with similar presentation. 07/01: Started being compliant. More responsive. Will hold Glucophage due to diarrhea. Imodium. Continue other medications. 07/02: Increase Clozaril to 50 mg HS. DC ODT Clonazepam now that he can swallow OK. Lower Ativan to 1 mg TID. 07/03: Continue current plan. On 07/04 increase Clozaril to 100 mg. 07/05: Pt did agree to labs. If he refuses meds this evening will file [facility] for consideration. 07/07: Lactulose 30 cc x 1 for pt report of constipation. Continue regime Support, offer encouragement with current stressor, encourage communication with team. 07/08: Continue current regimen and plans for stabilization and medication management 07/09: Continue current regimen and plans for stabilization and medication management 07/11: Increase Clozaril to 50 mg HS from 25 mg HS Decrease Lorazepam to 1.5 mg tid from [address] 07/13. Pt not wanting to talk of this today with tw. 07/13: Olanzapine 10 mg po bid 07/14/24: Decrease Lorazepam to 1 mg tid Intake/Output 07/15/24 patient uncooperative, disorganized and labile behavior- refusing medications- had unit on lock down today- while nursing attempted to help patient stop screaming and throwing things in his room- 07/16 ? agitated catatonia- likely to need urgent ECT- if medically stable for it- and if court can be arranged soon enough- in any case will need medication soon- 07/17- ECT consult Increase Ativan to 2 mg tid Chlorpromazine 25 mg tid 07/18- Recompensated this afternoon, interactive, discussed his concerns about his developmental milestones. Waxing, Waning catatonia? 07/19- Continue tx 07/20: Continue current management and treatment plan. Remains isolated, with waxing and waning symptoms. Med compliant with modest effect. 07/21: Increase Chlorpromazine to 50 mg tid 07/24: Decrease Chlorpromazine to 25 mg tid Increase Lexapro to 10 mg daily 07/25 patient refuses to engage; catatonic like symptoms 07/28 improved today. Continue current plan/regime Antidepressant increased 07/24- observe for induced joe. 07/29 increased Lexapro to 20 mg; will continue to observe for manic symptoms 07/30 Patient remains doing much better, friendly, in the milieu, eating and appropriate with peers and staff, even attending groups and showered. -will DC I/O nos; patient eating and drinking well. 08/01: Continue current plan of care. Reason for continued inpatient stay Substantial Risk for: rapid decompensation Time Spent With Patient Time: Total time managing care of this patient today ____ minutes.
[2024-08-01 20:00] VITALS: BP 108/61; PULSE 85; TEMP 36.6; O2SAT 100
[2024-08-01] MEDS: Mirtazapine 15 MG TABLET 45 MG PO (20:37)
[2024-08-01] MEDS: Milk of Magnesia 30 ML ORAL.SUSP PO (20:49)
[2024-08-02] MEDS: OLANZapine ODT 10 MG TAB.RAPDIS TRANSLINGU ×2 (08:11→20:39)
[2024-08-02] MEDS: Atorvastatin Calcium 40 MG TABLET PO (08:11)
[2024-08-02] MEDS: Gabapentin 400 MG CAPSULE 800 MG PO ×3 (08:11→20:38)
[2024-08-02] MEDS: chlorproMAZINE HCl 25 MG TABLET PO ×3 (08:11→20:39)
[2024-08-02] MEDS: Escitalopram Oxalate 20 MG TABLET PO (08:11)
[2024-08-02] MEDS: LORazepam 1 MG TABLET 2 MG PO ×3 (08:11→20:39)
[2024-08-02] MEDS: Empagliflozin 25 MG TABLET PO (08:11)
[2024-08-02] MEDS: Metoprolol Succinate ER 25 MG TAB.ER.24H PO (08:11)
[2024-08-02 09:01] LABS: Neut%MD 59.5 %; Neutrophils Absolute Auto 5.1 x10*3/uL (2.0-8.3); WBCANC 8.6 X10*3/uL
[2024-08-02 09:19] LABS: Creatinine Clr Calc Pharmacy 112.5; Estimated Glomerular Filt Rate > 60
[2024-08-02 09:26] VITALS: BP 114/66; PULSE 87; RESP 16; TEMP 36.9; O2SAT 99
--- NOTE | 2024-08-02 11:09 | HO.PSYCHPN ---
Subjective Subjective Date of Service: 08/02/24 Reason For Visit: psychosis Subjective Notes: Section 7 Healthcare Proxy: No Guardianship: No Medical Problems Affecting Mental Status: No Interim History: I am not ready to leave the hospital. I want a chance to feel OK for a bit, so I know I can go home and not have to come back. Discussed discharge, not even close to it. Review of meds, treatments, purpose, rationale, times. Pt would like a list. I don't want to be tone down blunt, but I cannot be rushed this time, that is why I came back. Agrees with discuss discharge daily and set smaller goals to help progress. Discussion of beginning tapering of Lorazapem Discussion of what is needed from his home to discharge-eileen shane Denies SI/HI/AH/VH. Engaging in milieu and with team. Sleep and appetite are getting back on track. Medication Compliance: Yes Side effects from medications: No Attending Groups: Yes Review of Systems Acute medical concerns: No Review of Systems Review of Systems Denies Mental Status Exam Mental Status Exam Patient Appearance: Appropriate Patient Orientation: Person, Place, Time and Situation Level of Consciousness: Alert Patient Behavior: Talkative and Good Eye Contact Mood Description: Depressed, Anxious and Apprehensive Affect Description: Anxious and Apprehensive Patient Cognition Impaired: No Ability to Follow Directions: Good Speech Pattern: Spontaneous Speech Memory Description: Episodic Impaired Hallucinations: None Delusions: Present Thought Content: positive for Perseveration Depressive Symptoms: Increased Anxiety Judgement: Fair Diagnostics Vital Signs (24Hr): Vital Signs - 24 hr 08/01/24 20:00 08/02/24 09:26 Temperature 97.9 F 98.4 F Pulse Rate 85 87 Respiratory Rate 16 Blood Pressure 108/61 114/66 Pulse Oximetry 100 99 Oxygen Delivery Method Room Air Room Air BMI result Body Mass Index 23.2 Labs 06/28/24 17:51 08/02/24 08:27 Labs: Laboratory Results - last 48 hr 08/02/24 08:27 Absolute Neuts (auto) 5.1 Creatinine 0.88 Estim Creat Clear Calc 112.5 Estimated GFR > 60 Imaging Radiology Impressions: ITS Impressions Chest X-Ray 06/28/24 20:45 IMPRESSION: *Low lung volumes; otherwise, no cardiopulmonary abnormalities identified. *Moderate convex rightward scoliosis of the thoracic spine. Electronically signed by: Ran Castaneda MD 06/29/2024 12:03 AM EST RP Head CT 06/28/24 20:53 IMPRESSION: 1. No acute intracranial pathology. 2. Mild cerebral volume loss and mild chronic microangiopathy. Electronically signed by: Brandon Smith MD 06/28/2024 11:49 PM EST RP Medications Medications Current Medications Acetaminophen (Acetaminophen 325 Mg Tablet) 650 mg PO Q6H PRN PRN Reason: Headache/Pain Mild Scale (1-3) Al Hydroxide/Mg Hydroxide (Magnesium Hydrox/Alum Hydrox 30 Ml Oral.Susp) 30 ml PO Q6H PRN PRN Reason: Heartburn/Nausea Atorvastatin Calcium (Atorvastatin Calcium 40 Mg Tablet) 40 mg PO DAILY [facility] Last Admin: 08/02/24 08:11 Dose: 40 mg Chlorpromazine HCl (Chlorpromazine Hcl 25 Mg Tablet) 25 mg PO TID [facility] Last Admin: 08/02/24 08:11 Dose: 25 mg Empagliflozin (Empagliflozin 25 Mg Tablet) 25 mg PO DAILY [facility] Last Admin: 08/02/24 08:11 Dose: 25 mg Escitalopram Oxalate (Escitalopram Oxalate 20 Mg Tablet) 20 mg PO DAILY [facility] Last Admin: 08/02/24 08:11 Dose: 20 mg Gabapentin (Gabapentin 400 Mg Capsule) 800 mg PO TID [facility] Last Admin: 08/02/24 08:11 Dose: 800 mg Hydroxyzine HCl (Hydroxyzine Hcl 25 Mg Tablet) 25 mg PO Q6H PRN PRN Reason: Anxiety Loperamide HCl (Loperamide Hcl 2 Mg Capsule) 2 mg PO Q6H PRN PRN Reason: Diarrhea Last Admin: 07/01/24 10:23 Dose: 2 mg Lorazepam (Lorazepam 1 Mg Tablet) 2 mg PO TID [facility] Last Admin: 08/02/24 08:11 Dose: 2 mg Magnesium Hydroxide (Milk Of Magnesia 30 Ml Oral.Susp) 30 ml PO DAILY PRN PRN Reason: Constipation Last Admin: 08/01/24 20:49 Dose: 30 ml Metformin HCl (Metformin Hcl 1,000 Mg Tablet) 1,000 mg PO BID [facility] Last Admin: 07/01/24 21:13 Dose: Not Given Metoprolol Succinate (Metoprolol Succinate Er 25 Mg Tab.Er.24h) 25 mg PO DAILY [facility]; Protocol Last Admin: 08/02/24 08:11 Dose: 25 mg Mirtazapine (Mirtazapine 15 Mg Tablet) 45 mg PO BEDTIME [facility] Last Admin: 08/01/24 20:37 Dose: 45 mg Nicotine Polacrilex (Nicotine Polacrilex 2 Mg Gum) 4 mg BUCCAL Q2H PRN PRN Reason: Nicotine Cravings Olanzapine (Olanzapine Odt 10 Mg Tab.Rapdis) 5 mg TRANSLINGU Q4H PRN PRN Reason: anxiety/agitation Last Admin: 07/13/24 12:13 Dose: 5 mg Olanzapine (Olanzapine Odt 10 Mg Tab.Rapdis) 10 mg TRANSLINGU BID [facility] Last Admin: 08/02/24 08:11 Dose: 10 mg Trazodone HCl (Trazodone Hcl 50 Mg Tablet) 50 mg PO BEDTIME MRX1 PRN PRN Reason: Insomnia Allergies Allergies Allergy/AdvReac Type Severity Reaction Status Date / Time haloperidol [From Haldol] Allergy Intermediate Agitated Verified 06/28/24 17:33 lithium Allergy Intermediate Agitated Verified 06/28/24 17:33 oxcarbazepine Allergy Unknown RASH Verified 06/28/24 17:33 [From TRILEPTAL] fluphenazine [From Prolixin] Allergy akathisia Verified 06/28/24 17:33 Assessment & Plan Assessment & Plan (1) Schizoaffective disorder: Status: Acute Code(s): F25.9 - Schizoaffective disorder, unspecified Plan 06/29: restart/continue discharge meds from most recent hospitalization. change to ODT what can be changed to ODT in the hopes that stomach complaint is driven by psychosis and will resolve with adequate neuroleptic and anxiolytic Tx. 06/30: apparently catatonic this morning. per RN, pt has not taken any medications since admission. will add ativan 2 mg TID, staff services manager to strongly and repeatedly encourage pt to take medication. apparently, this approach worked during most recent admission on M3 with similar presentation. 07/01: Started being compliant. More responsive. Will hold Glucophage due to diarrhea. Imodium. Continue other medications. 07/02: Increase Clozaril to 50 mg HS. DC ODT Clonazepam now that he can swallow OK. Lower Ativan to 1 mg TID. 07/03: Continue current plan. On 07/04 increase Clozaril to 100 mg. 07/05: Pt did agree to labs. If he refuses meds this evening will file [facility] for consideration. 07/07: Lactulose 30 cc x 1 for pt report of constipation. Continue regime Support, offer encouragement with current stressor, encourage communication with team. 07/08: Continue current regimen and plans for stabilization and medication management 07/09: Continue current regimen and plans for stabilization and medication management 07/11: Increase Clozaril to 50 mg HS from 25 mg HS Decrease Lorazepam to 1.5 mg tid from [address] 07/13. Pt not wanting to talk of this today with tw. 07/13: Olanzapine 10 mg po bid 07/14/24: Decrease Lorazepam to 1 mg tid Intake/Output 07/15/24 patient uncooperative, disorganized and labile behavior- refusing medications- had unit on lock down today- while nursing attempted to help patient stop screaming and throwing things in his room- 07/16 ? agitated catatonia- likely to need urgent ECT- if medically stable for it- and if court can be arranged soon enough- in any case will need medication soon- 07/17- ECT consult Increase Ativan to 2 mg tid Chlorpromazine 25 mg tid 07/18- Recompensated this afternoon, interactive, discussed his concerns about his developmental milestones. Waxing, Waning catatonia? 07/19- Continue tx 07/20: Continue current management and treatment plan. Remains isolated, with waxing and waning symptoms. Med compliant with modest effect. 07/21: Increase Chlorpromazine to 50 mg tid 07/24: Decrease Chlorpromazine to 25 mg tid Increase Lexapro to 10 mg daily 07/25 patient refuses to engage; catatonic like symptoms 07/28 improved today. Continue current plan/regime Antidepressant increased 07/24- observe for induced joe. 07/29 increased Lexapro to 20 mg; will continue to observe for manic symptoms 07/30 Patient remains doing much better, friendly, in the milieu, eating and appropriate with peers and staff, even attending groups and showered. -will DC I/O nos; patient eating and drinking well. 08/02 Continue regime Discharge planning. Reason for continued inpatient stay Substantial Risk for: rapid decompensation Time Spent With Patient Time: Total time managing care of this patient today ____ minutes.
[2024-08-02 20:00] VITALS: BP 136/65; PULSE 82; TEMP 36.7; O2SAT 99
[2024-08-02] MEDS: Mirtazapine 15 MG TABLET 45 MG PO (20:39)
[2024-08-03 07:00] VITALS: BMI 24.1
[2024-08-03 08:00] VITALS: BP 119/69; PULSE 89; RESP 16; TEMP 36.6; O2SAT 98
[2024-08-03] MEDS: Atorvastatin Calcium 40 MG TABLET PO (08:30)
[2024-08-03] MEDS: chlorproMAZINE HCl 25 MG TABLET PO ×3 (08:30→22:09)
[2024-08-03] MEDS: Empagliflozin 25 MG TABLET PO (08:30)
[2024-08-03] MEDS: LORazepam 1 MG TABLET 2 MG PO ×3 (08:30→22:09)
[2024-08-03] MEDS: OLANZapine ODT 10 MG TAB.RAPDIS TRANSLINGU ×2 (08:30→22:08)
[2024-08-03] MEDS: Gabapentin 400 MG CAPSULE 800 MG PO ×3 (08:30→22:07)
[2024-08-03] MEDS: Escitalopram Oxalate 20 MG TABLET PO (08:30)
[2024-08-03] MEDS: Metoprolol Succinate ER 25 MG TAB.ER.24H PO (08:30)
--- NOTE | 2024-08-03 16:16 | P.PNPSI_ITS ---
Subjective Subjective Date of Service: 08/03/24 Reason For Visit: psychosis Subjective Notes: Section 7 Healthcare Proxy: No Guardianship: No Medical Problems Affecting Mental Status: No Interim History: Discussed his thought of discharging on 08/10, allowing him some time in milieu to work in groups and to taper Lorazepam. Has a structured plan of attending groups and getting feedback from team regarding Ativan tapering. I know I did not do OK when you tried before. Willing to trial this taper and work with team. Well engaged in milieu today. Medication Compliance: Yes Side effects from medications: No Attending Groups: Yes Review of Systems Acute medical concerns: No Review of Systems Review of Systems Yes all other systems are reviewed and are negative Mental Status Exam Mental Status Exam Patient Appearance: Appropriate Patient Orientation: Person, Place, Time and Situation Level of Consciousness: Alert Patient Behavior: Talkative and Good Eye Contact Mood Description: Depressed, Anxious and Apprehensive Affect Description: Anxious and Apprehensive Patient Cognition Impaired: No Ability to Follow Directions: Good Speech Pattern: Spontaneous Speech Memory Description: Episodic Impaired Hallucinations: None Delusions: Present Thought Content: positive for Perseveration Depressive Symptoms: Increased Anxiety Judgement: Fair Diagnostics Vital Signs (24Hr): Vital Signs - 24 hr 08/02/24 20:00 08/03/24 08:00 Temperature 98.0 F 97.8 F Pulse Rate 82 89 Respiratory Rate 16 Blood Pressure 136/65 119/69 Pulse Oximetry 99 98 Oxygen Delivery Method Room Air Room Air BMI result Body Mass Index 24.1 Labs 06/28/24 17:51 08/02/24 08:27 Labs: Laboratory Results - last 48 hr 08/02/24 08:27 Absolute Neuts (auto) 5.1 Creatinine 0.88 Estim Creat Clear Calc 112.5 Estimated GFR > 60 Imaging Radiology Impressions: ITS Impressions Chest X-Ray 06/28/24 20:45 IMPRESSION: *Low lung volumes; otherwise, no cardiopulmonary abnormalities identified. *Moderate convex rightward scoliosis of the thoracic spine. Electronically signed by: Ran Castaneda MD 06/29/2024 12:03 AM EST RP Head CT 06/28/24 20:53 IMPRESSION: 1. No acute intracranial pathology. 2. Mild cerebral volume loss and mild chronic microangiopathy. Electronically signed by: Brandon Smith MD 06/28/2024 11:49 PM EST RP Medications Medications Current Medications Acetaminophen (Acetaminophen 325 Mg Tablet) 650 mg PO Q6H PRN PRN Reason: Headache/Pain Mild Scale (1-3) Al Hydroxide/Mg Hydroxide (Magnesium Hydrox/Alum Hydrox 30 Ml Oral.Susp) 30 ml PO Q6H PRN PRN Reason: Heartburn/Nausea Atorvastatin Calcium (Atorvastatin Calcium 40 Mg Tablet) 40 mg PO DAILY [facility] Last Admin: 08/03/24 08:30 Dose: 40 mg Chlorpromazine HCl (Chlorpromazine Hcl 25 Mg Tablet) 25 mg PO TID [facility] Last Admin: 08/03/24 16:07 Dose: 25 mg Empagliflozin (Empagliflozin 25 Mg Tablet) 25 mg PO DAILY [facility] Last Admin: 08/03/24 08:30 Dose: 25 mg Escitalopram Oxalate (Escitalopram Oxalate 20 Mg Tablet) 20 mg PO DAILY [facility] Last Admin: 08/03/24 08:30 Dose: 20 mg Gabapentin (Gabapentin 400 Mg Capsule) 800 mg PO TID [facility] Last Admin: 08/03/24 16:07 Dose: 800 mg Hydroxyzine HCl (Hydroxyzine Hcl 25 Mg Tablet) 25 mg PO Q6H PRN PRN Reason: Anxiety Loperamide HCl (Loperamide Hcl 2 Mg Capsule) 2 mg PO Q6H PRN PRN Reason: Diarrhea Last Admin: 07/01/24 10:23 Dose: 2 mg Lorazepam (Lorazepam 1 Mg Tablet) 2 mg PO TID [facility] Last Admin: 08/03/24 16:07 Dose: 2 mg Magnesium Hydroxide (Milk Of Magnesia 30 Ml Oral.Susp) 30 ml PO DAILY PRN PRN Reason: Constipation Last Admin: 08/01/24 20:49 Dose: 30 ml Metformin HCl (Metformin Hcl 1,000 Mg Tablet) 1,000 mg PO BID [facility] Last Admin: 07/01/24 21:13 Dose: Not Given Metoprolol Succinate (Metoprolol Succinate Er 25 Mg Tab.Er.24h) 25 mg PO DAILY [facility]; Protocol Last Admin: 08/03/24 08:30 Dose: 25 mg Mirtazapine (Mirtazapine 15 Mg Tablet) 45 mg PO BEDTIME [facility] Last Admin: 08/02/24 20:39 Dose: 45 mg Olanzapine (Olanzapine Odt 10 Mg Tab.Rapdis) 5 mg TRANSLINGU Q4H PRN PRN Reason: anxiety/agitation Last Admin: 07/13/24 12:13 Dose: 5 mg Olanzapine (Olanzapine Odt 10 Mg Tab.Rapdis) 10 mg TRANSLINGU BID [facility] Last Admin: 08/03/24 08:30 Dose: 10 mg Allergies Allergies Allergy/AdvReac Type Severity Reaction Status Date / Time haloperidol [From Haldol] Allergy Intermediate Agitated Verified 06/28/24 17:33 lithium Allergy Intermediate Agitated Verified 06/28/24 17:33 oxcarbazepine Allergy Unknown RASH Verified 06/28/24 17:33 [From TRILEPTAL] fluphenazine [From Prolixin] Allergy akathisia Verified 06/28/24 17:33 Assessment & Plan Assessment & Plan (1) Schizoaffective disorder: Status: Acute Code(s): F25.9 - Schizoaffective disorder, unspecified Plan 06/29: restart/continue discharge meds from most recent hospitalization. change to ODT what can be changed to ODT in the hopes that stomach complaint is driven by psychosis and will resolve with adequate neuroleptic and anxiolytic Tx. 06/30: apparently catatonic this morning. per RN, pt has not taken any medications since admission. will add ativan 2 mg TID, medical staff physician to strongly and repeatedly encourage pt to take medication. apparently, this approach worked during most recent admission on M3 with similar presentation. 07/01: Started being compliant. More responsive. Will hold Glucophage due to diarrhea. Imodium. Continue other medications. 07/02: Increase Clozaril to 50 mg HS. DC ODT Clonazepam now that he can swallow OK. Lower Ativan to 1 mg TID. 07/03: Continue current plan. On 07/04 increase Clozaril to 100 mg. 07/05: Pt did agree to labs. If he refuses meds this evening will file Section Seven for consideration. 07/07: Lactulose 30 cc x 1 for pt report of constipation. Continue regime Support, offer encouragement with current stressor, encourage communication with team. 07/08: Continue current regimen and plans for stabilization and medication management 07/09: Continue current regimen and plans for stabilization and medication management 07/11: Increase Clozaril to 50 mg HS from 25 mg HS Decrease Lorazepam to 1.5 mg tid from [address] 07/13. Pt not wanting to talk of this today with tw. 07/13: Olanzapine 10 mg po bid 07/14/24: Decrease Lorazepam to 1 mg tid Intake/Output 07/15/24 patient uncooperative, disorganized and labile behavior- refusing medications- had unit on lock down today- while nursing attempted to help patient stop screaming and throwing things in his room- 07/16 ? agitated catatonia- likely to need urgent ECT- if medically stable for it- and if court can be arranged soon enough- in any case will need medication soon- 07/17- ECT consult Increase Ativan to 2 mg tid Chlorpromazine 25 mg tid 07/18- Recompensated this afternoon, interactive, discussed his concerns about his developmental milestones. Waxing, Waning catatonia? 07/19- Continue tx 07/20: Continue current management and treatment plan. Remains isolated, with waxing and waning symptoms. Med compliant with modest effect. 07/21: Increase Chlorpromazine to 50 mg tid 07/24: Decrease Chlorpromazine to 25 mg tid Increase Lexapro to 10 mg daily 07/25 patient refuses to engage; catatonic like symptoms 07/28 improved today. Continue current plan/regime Antidepressant increased 07/24- observe for induced joe. 07/29 increased Lexapro to 20 mg; will continue to observe for manic symptoms 07/30 Patient remains doing much better, friendly, in the milieu, eating and appropriate with peers and staff, even attending groups and showered. -will DC I/O nos; patient eating and drinking well. 08/02 Continue regime Discharge planning. 08/03 Begin Lorazepam tapering. Decrease from 2 mg tid to 2 mg bid and 1 mg at 1300. Reason for continued inpatient stay Substantial Risk for: rapid decompensation Time Spent With Patient Time: Total time managing care of this patient today ____ minutes.
[2024-08-03 20:00] VITALS: BP 122/65; PULSE 87; TEMP 36.4; O2SAT 97
[2024-08-03] MEDS: Mirtazapine 15 MG TABLET 45 MG PO (22:07)
[2024-08-03] MEDS: Milk of Magnesia 30 ML ORAL.SUSP PO (22:13)
[2024-08-04 08:34] VITALS: BP 123/64; PULSE 101; RESP 18; TEMP 36.9; O2SAT 98
[2024-08-04] MEDS: chlorproMAZINE HCl 25 MG TABLET PO ×3 (08:43→21:45)
[2024-08-04] MEDS: Escitalopram Oxalate 20 MG TABLET PO (08:43)
[2024-08-04] MEDS: Gabapentin 400 MG CAPSULE 800 MG PO ×3 (08:43→21:45)
[2024-08-04] MEDS: LORazepam 1 MG TABLET 2 MG PO ×2 (08:43→21:44)
[2024-08-04] MEDS: OLANZapine ODT 10 MG TAB.RAPDIS TRANSLINGU ×2 (08:43→21:45)
[2024-08-04] MEDS: Atorvastatin Calcium 40 MG TABLET PO (08:43)
[2024-08-04] MEDS: Metoprolol Succinate ER 25 MG TAB.ER.24H PO (08:43)
[2024-08-04] MEDS: Empagliflozin 25 MG TABLET PO (08:43)
--- NOTE | 2024-08-04 10:17 | HO.PSYCHPN ---
Subjective Subjective Date of Service: 08/04/24 Reason For Visit: psychosis Subjective Notes: Section 7 Healthcare Proxy: No Guardianship: No Medical Problems Affecting Mental Status: No Interim History: Visable, engaged, attending groups Reports medicines are effective and tolerated. Denies SI/HI/AH/VH Planning discharge for 08/10 per pt request and for Ativan tapering. Ativan tapering without adverse effect Medication Compliance: Yes Side effects from medications: No Attending Groups: Yes Review of Systems Acute medical concerns: No Medical Review of Systems: unchanged Review of Systems Review of Systems Yes all other systems are reviewed and are negative Mental Status Exam Mental Status Exam Patient Appearance: Appropriate Patient Orientation: Person, Place, Time and Situation Level of Consciousness: Alert Patient Behavior: Talkative and Good Eye Contact Mood Description: Depressed, Anxious and Apprehensive Affect Description: Anxious and Apprehensive Patient Cognition Impaired: No Ability to Follow Directions: Good Speech Pattern: Spontaneous Speech Memory Description: Episodic Impaired Hallucinations: None Delusions: Present Thought Content: positive for Perseveration Depressive Symptoms: Increased Anxiety Judgement: Fair Diagnostics Vital Signs (24Hr): Vital Signs - 24 hr 08/03/24 20:00 08/04/24 08:34 Temperature 97.5 F 98.4 F Pulse Rate 87 101 H Respiratory Rate 18 Blood Pressure 122/65 123/64 Pulse Oximetry 97 98 Oxygen Delivery Method Room Air Room Air BMI result Body Mass Index 24.1 Labs 06/28/24 17:51 08/02/24 08:27 Imaging Radiology Impressions: ITS Impressions Chest X-Ray 06/28/24 20:45 IMPRESSION: *Low lung volumes; otherwise, no cardiopulmonary abnormalities identified. *Moderate convex rightward scoliosis of the thoracic spine. Electronically signed by: Ran Castaneda MD 06/29/2024 12:03 AM EST RP Head CT 06/28/24 20:53 IMPRESSION: 1. No acute intracranial pathology. 2. Mild cerebral volume loss and mild chronic microangiopathy. Electronically signed by: Brandon Smith MD 06/28/2024 11:49 PM EST RP Medications Medications Current Medications Acetaminophen (Acetaminophen 325 Mg Tablet) 650 mg PO Q6H PRN PRN Reason: Headache/Pain Mild Scale (1-3) Al Hydroxide/Mg Hydroxide (Magnesium Hydrox/Alum Hydrox 30 Ml Oral.Susp) 30 ml PO Q6H PRN PRN Reason: Heartburn/Nausea Atorvastatin Calcium (Atorvastatin Calcium 40 Mg Tablet) 40 mg PO DAILY [facility] Last Admin: 08/04/24 08:43 Dose: 40 mg Chlorpromazine HCl (Chlorpromazine Hcl 25 Mg Tablet) 25 mg PO TID [facility] Last Admin: 08/04/24 08:43 Dose: 25 mg Empagliflozin (Empagliflozin 25 Mg Tablet) 25 mg PO DAILY [facility] Last Admin: 08/04/24 08:43 Dose: 25 mg Escitalopram Oxalate (Escitalopram Oxalate 20 Mg Tablet) 20 mg PO DAILY [facility] Last Admin: 08/04/24 08:43 Dose: 20 mg Gabapentin (Gabapentin 400 Mg Capsule) 800 mg PO TID [facility] Last Admin: 08/04/24 08:43 Dose: 800 mg Hydroxyzine HCl (Hydroxyzine Hcl 25 Mg Tablet) 25 mg PO Q6H PRN PRN Reason: Anxiety Loperamide HCl (Loperamide Hcl 2 Mg Capsule) 2 mg PO Q6H PRN PRN Reason: Diarrhea Last Admin: 07/01/24 10:23 Dose: 2 mg Lorazepam (Lorazepam 1 Mg Tablet) 2 mg PO BID [facility] Last Admin: 08/04/24 08:43 Dose: 2 mg Lorazepam (Lorazepam 1 Mg Tablet) 1 mg PO DAILY@1300 [facility] Magnesium Hydroxide (Milk Of Magnesia 30 Ml Oral.Susp) 30 ml PO DAILY PRN PRN Reason: Constipation Last Admin: 08/03/24 22:13 Dose: 30 ml Metformin HCl (Metformin Hcl 1,000 Mg Tablet) 1,000 mg PO BID [facility] Last Admin: 07/01/24 21:13 Dose: Not Given Metoprolol Succinate (Metoprolol Succinate Er 25 Mg Tab.Er.24h) 25 mg PO DAILY [facility]; Protocol Last Admin: 08/04/24 08:43 Dose: 25 mg Mirtazapine (Mirtazapine 15 Mg Tablet) 45 mg PO BEDTIME [facility] Last Admin: 08/03/24 22:07 Dose: 45 mg Olanzapine (Olanzapine Odt 10 Mg Tab.Rapdis) 5 mg TRANSLINGU Q4H PRN PRN Reason: anxiety/agitation Last Admin: 07/13/24 12:13 Dose: 5 mg Olanzapine (Olanzapine Odt 10 Mg Tab.Rapdis) 10 mg TRANSLINGU BID [facility] Last Admin: 08/04/24 08:43 Dose: 10 mg Allergies Allergies Allergy/AdvReac Type Severity Reaction Status Date / Time haloperidol [From Haldol] Allergy Intermediate Agitated Verified 06/28/24 17:33 lithium Allergy Intermediate Agitated Verified 06/28/24 17:33 oxcarbazepine Allergy Unknown RASH Verified 06/28/24 17:33 [From TRILEPTAL] fluphenazine [From Prolixin] Allergy akathisia Verified 06/28/24 17:33 Assessment & Plan Assessment & Plan (1) Schizoaffective disorder: Status: Acute Code(s): F25.9 - Schizoaffective disorder, unspecified Plan 06/29: restart/continue discharge meds from most recent hospitalization. change to ODT what can be changed to ODT in the hopes that stomach complaint is driven by psychosis and will resolve with adequate neuroleptic and anxiolytic Tx. 06/30: apparently catatonic this morning. per RN, pt has not taken any medications since admission. will add ativan 2 mg TID, staffing branch manager to strongly and repeatedly encourage pt to take medication. apparently, this approach worked during most recent admission on M3 with similar presentation. 07/01: Started being compliant. More responsive. Will hold Glucophage due to diarrhea. Imodium. Continue other medications. 07/02: Increase Clozaril to 50 mg HS. DC ODT Clonazepam now that he can swallow OK. Lower Ativan to 1 mg TID. 07/03: Continue current plan. On 07/04 increase Clozaril to 100 mg. 07/05: Pt did agree to labs. If he refuses meds this evening will file Section Seven for consideration. 07/07: Lactulose 30 cc x 1 for pt report of constipation. Continue regime Support, offer encouragement with current stressor, encourage communication with team. 07/08: Continue current regimen and plans for stabilization and medication management 07/09: Continue current regimen and plans for stabilization and medication management 07/11: Increase Clozaril to 50 mg HS from 25 mg HS Decrease Lorazepam to 1.5 mg tid from [address] 07/13. Pt not wanting to talk of this today with tw. 07/13: Olanzapine 10 mg po bid 07/14/24: Decrease Lorazepam to 1 mg tid Intake/Output 07/15/24 patient uncooperative, disorganized and labile behavior- refusing medications- had unit on lock down today- while nursing attempted to help patient stop screaming and throwing things in his room- 07/16 ? agitated catatonia- likely to need urgent ECT- if medically stable for it- and if court can be arranged soon enough- in any case will need medication soon- 07/17- ECT consult Increase Ativan to 2 mg tid Chlorpromazine 25 mg tid 07/18- Recompensated this afternoon, interactive, discussed his concerns about his developmental milestones. Waxing, Waning catatonia? 07/19- Continue tx 07/20: Continue current management and treatment plan. Remains isolated, with waxing and waning symptoms. Med compliant with modest effect. 07/21: Increase Chlorpromazine to 50 mg tid 07/24: Decrease Chlorpromazine to 25 mg tid Increase Lexapro to 10 mg daily 07/25 patient refuses to engage; catatonic like symptoms 07/28 improved today. Continue current plan/regime Antidepressant increased 07/24- observe for induced joe. 07/29 increased Lexapro to 20 mg; will continue to observe for manic symptoms 07/30 Patient remains doing much better, friendly, in the milieu, eating and appropriate with peers and staff, even attending groups and showered. -will DC I/O nos; patient eating and drinking well. 08/02 Continue regime Discharge planning. 08/03 Begin Lorazepam tapering. Decrease from 2 mg tid to 2 mg bid and 1 mg at 1300. 08/04 Continue current plan. Reason for continued inpatient stay Substantial Risk for: rapid decompensation Time Spent With Patient Time: Total time managing care of this patient today ____ minutes.
[2024-08-04] MEDS: LORazepam 1 MG TABLET PO (12:23)
[2024-08-04 20:00] VITALS: BP 112/72; PULSE 93; TEMP 36.5; O2SAT 95
[2024-08-04] MEDS: Mirtazapine 15 MG TABLET 45 MG PO (21:45)
[2024-08-05 08:00] VITALS: BP 112/65; PULSE 87; RESP 16; TEMP 36.6; O2SAT 98
[2024-08-05] MEDS: LORazepam 1 MG TABLET 2 MG PO ×2 (08:50→20:59)
[2024-08-05] MEDS: Gabapentin 400 MG CAPSULE 800 MG PO ×3 (08:50→21:00)
[2024-08-05] MEDS: OLANZapine ODT 10 MG TAB.RAPDIS TRANSLINGU ×2 (08:50→21:00)
[2024-08-05] MEDS: Metoprolol Succinate ER 25 MG TAB.ER.24H PO (08:50)
[2024-08-05] MEDS: Empagliflozin 25 MG TABLET PO (08:50)
[2024-08-05] MEDS: Escitalopram Oxalate 20 MG TABLET PO (08:50)
[2024-08-05] MEDS: chlorproMAZINE HCl 25 MG TABLET PO ×3 (08:50→21:00)
[2024-08-05] MEDS: Atorvastatin Calcium 40 MG TABLET PO (08:50)
--- NOTE | 2024-08-05 10:23 | P.PNPSI_ITS ---
Subjective Subjective Date of Service: 08/05/24 Reason For Visit: psychosis Interim History: no management issues. Doing well with Ativan taper. Patient reports mood is good. Anxiety improving. Reports that he was not doing well at all, and the Lexapro has been extremely beneficial. Thankful for staff support. Sleep energy and appetite okay.t Medication Compliance: Yes Side effects from medications: No Attending Groups: Intermittent Review of Systems Acute medical concerns: No Review of Systems Review of Systems Yes all other systems are reviewed and are negative Mental Status Exam Mental Status Exam Patient Appearance: Appropriate Patient Orientation: Person, Place, Time and Situation Level of Consciousness: Alert Patient Behavior: Talkative and Good Eye Contact Mood Description: Calm and Apprehensive Affect Description: Apprehensive Patient Cognition Impaired: No Ability to Follow Directions: Good Speech Pattern: Spontaneous Speech Memory Description: Episodic Impaired Diagnostics Vital Signs (24Hr): Vital Signs - 24 hr 08/04/24 20:00 08/05/24 08:00 Temperature 97.7 F 98 F Pulse Rate 93 87 Respiratory Rate 16 Blood Pressure 112/72 112/65 Pulse Oximetry 95 98 Oxygen Delivery Method Room Air Room Air BMI result Body Mass Index 24.1 Labs 06/28/24 17:51 08/02/24 08:27 Imaging Radiology Impressions: ITS Impressions Chest X-Ray 06/28/24 20:45 IMPRESSION: *Low lung volumes; otherwise, no cardiopulmonary abnormalities identified. *Moderate convex rightward scoliosis of the thoracic spine. Electronically signed by: Ran Castaneda MD 06/29/2024 12:03 AM EST RP Head CT 06/28/24 20:53 IMPRESSION: 1. No acute intracranial pathology. 2. Mild cerebral volume loss and mild chronic microangiopathy. Electronically signed by: Brandon Smith MD 06/28/2024 11:49 PM EST RP Medications Medications Current Medications Acetaminophen (Acetaminophen 325 Mg Tablet) 650 mg PO Q6H PRN PRN Reason: Headache/Pain Mild Scale (1-3) Al Hydroxide/Mg Hydroxide (Magnesium Hydrox/Alum Hydrox 30 Ml Oral.Susp) 30 ml PO Q6H PRN PRN Reason: Heartburn/Nausea Atorvastatin Calcium (Atorvastatin Calcium 40 Mg Tablet) 40 mg PO DAILY [facility] Last Admin: 08/05/24 08:50 Dose: 40 mg Chlorpromazine HCl (Chlorpromazine Hcl 25 Mg Tablet) 25 mg PO TID [facility] Last Admin: 08/05/24 08:50 Dose: 25 mg Empagliflozin (Empagliflozin 25 Mg Tablet) 25 mg PO DAILY [facility] Last Admin: 08/05/24 08:50 Dose: 25 mg Escitalopram Oxalate (Escitalopram Oxalate 20 Mg Tablet) 20 mg PO DAILY [facility] Last Admin: 08/05/24 08:50 Dose: 20 mg Gabapentin (Gabapentin 400 Mg Capsule) 800 mg PO TID [facility] Last Admin: 08/05/24 08:50 Dose: 800 mg Hydroxyzine HCl (Hydroxyzine Hcl 25 Mg Tablet) 25 mg PO Q6H PRN PRN Reason: Anxiety Loperamide HCl (Loperamide Hcl 2 Mg Capsule) 2 mg PO Q6H PRN PRN Reason: Diarrhea Last Admin: 07/01/24 10:23 Dose: 2 mg Lorazepam (Lorazepam 1 Mg Tablet) 2 mg PO BID [facility] Last Admin: 08/05/24 08:50 Dose: 2 mg Lorazepam (Lorazepam 1 Mg Tablet) 1 mg PO DAILY@1300 [facility] Last Admin: 08/04/24 12:23 Dose: 1 mg Magnesium Hydroxide (Milk Of Magnesia 30 Ml Oral.Susp) 30 ml PO DAILY PRN PRN Reason: Constipation Last Admin: 08/03/24 22:13 Dose: 30 ml Metformin HCl (Metformin Hcl 1,000 Mg Tablet) 1,000 mg PO BID [facility] Last Admin: 07/01/24 21:13 Dose: Not Given Metoprolol Succinate (Metoprolol Succinate Er 25 Mg Tab.Er.24h) 25 mg PO DAILY [facility]; Protocol Last Admin: 08/05/24 08:50 Dose: 25 mg Mirtazapine (Mirtazapine 15 Mg Tablet) 45 mg PO BEDTIME [facility] Last Admin: 08/04/24 21:45 Dose: 45 mg Olanzapine (Olanzapine Odt 10 Mg Tab.Rapdis) 5 mg TRANSLINGU Q4H PRN PRN Reason: anxiety/agitation Last Admin: 07/13/24 12:13 Dose: 5 mg Olanzapine (Olanzapine Odt 10 Mg Tab.Rapdis) 10 mg TRANSLINGU BID [facility] Last Admin: 08/05/24 08:50 Dose: 10 mg Allergies Allergies Allergy/AdvReac Type Severity Reaction Status Date / Time haloperidol [From Haldol] Allergy Intermediate Agitated Verified 06/28/24 17:33 lithium Allergy Intermediate Agitated Verified 06/28/24 17:33 oxcarbazepine Allergy Unknown RASH Verified 06/28/24 17:33 [From TRILEPTAL] fluphenazine [From Prolixin] Allergy akathisia Verified 06/28/24 17:33 Assessment & Plan Assessment & Plan (1) Schizoaffective disorder: Status: Acute Code(s): F25.9 - Schizoaffective disorder, unspecified Plan 06/29: restart/continue discharge meds from most recent hospitalization. change to ODT what can be changed to ODT in the hopes that stomach complaint is driven by psychosis and will resolve with adequate neuroleptic and anxiolytic Tx. 06/30: apparently catatonic this morning. per RN, pt has not taken any medications since admission. will add ativan 2 mg TID, staff climate scientist to strongly and repeatedly encourage pt to take medication. apparently, this approach worked during most recent admission on M3 with similar presentation. 07/01: Started being compliant. More responsive. Will hold Glucophage due to diarrhea. Imodium. Continue other medications. 07/02: Increase Clozaril to 50 mg HS. DC ODT Clonazepam now that he can swallow OK. Lower Ativan to 1 mg TID. 07/03: Continue current plan. On 07/04 increase Clozaril to 100 mg. 07/05: Pt did agree to labs. If he refuses meds this evening will file Section Seven for consideration. 07/07: Lactulose 30 cc x 1 for pt report of constipation. Continue regime Support, offer encouragement with current stressor, encourage communication with team. 07/08: Continue current regimen and plans for stabilization and medication management 07/09: Continue current regimen and plans for stabilization and medication management 07/11: Increase Clozaril to 50 mg HS from 25 mg HS Decrease Lorazepam to 1.5 mg tid from [address] 07/13. Pt not wanting to talk of this today with tw. 07/13: Olanzapine 10 mg po bid 07/14/24: Decrease Lorazepam to 1 mg tid Intake/Output 07/15/24 patient uncooperative, disorganized and labile behavior- refusing medications- had unit on lock down today- while nursing attempted to help patient stop screaming and throwing things in his room- 07/16 ? agitated catatonia- likely to need urgent ECT- if medically stable for it- and if court can be arranged soon enough- in any case will need medication soon- 07/17- ECT consult Increase Ativan to 2 mg tid Chlorpromazine 25 mg tid 07/18- Recompensated this afternoon, interactive, discussed his concerns about his developmental milestones. Waxing, Waning catatonia? 07/19- Continue tx 07/20: Continue current management and treatment plan. Remains isolated, with waxing and waning symptoms. Med compliant with modest effect. 07/21: Increase Chlorpromazine to 50 mg tid 07/24: Decrease Chlorpromazine to 25 mg tid Increase Lexapro to 10 mg daily 07/25 patient refuses to engage; catatonic like symptoms 07/28 improved today. Continue current plan/regime Antidepressant increased 07/24- observe for induced joe. 07/29 increased Lexapro to 20 mg; will continue to observe for manic symptoms 07/30 Patient remains doing much better, friendly, in the milieu, eating and appropriate with peers and staff, even attending groups and showered. -will DC I/O nos; patient eating and drinking well. 08/02 Continue regime Discharge planning. 08/03 Begin Lorazepam tapering. Decrease from 2 mg tid to 2 mg bid and 1 mg at 1300. 08/04 Continue current plan. 08/05/2024: No changes Reason for continued inpatient stay Substantial Risk for: rapid decompensation Time Spent With Patient Time: Total time managing care of this patient today ____ minutes.
[2024-08-05] MEDS: LORazepam 1 MG TABLET PO (14:06)
[2024-08-05 19:53] VITALS: BP 91/52; PULSE 100; TEMP 36.5; O2SAT 96
[2024-08-05] MEDS: Mirtazapine 15 MG TABLET 45 MG PO (20:59)
[2024-08-06 08:00] VITALS: BP 129/72; PULSE 100; RESP 16; TEMP 36.6; O2SAT 99
[2024-08-06] MEDS: LORazepam 1 MG TABLET 2 MG PO ×2 (08:34→20:54)
[2024-08-06] MEDS: chlorproMAZINE HCl 25 MG TABLET PO ×3 (08:34→20:55)
[2024-08-06] MEDS: Metoprolol Succinate ER 25 MG TAB.ER.24H PO (08:34)
[2024-08-06] MEDS: OLANZapine ODT 10 MG TAB.RAPDIS TRANSLINGU ×2 (08:34→20:55)
[2024-08-06] MEDS: Gabapentin 400 MG CAPSULE 800 MG PO ×3 (08:34→20:55)
[2024-08-06] MEDS: Atorvastatin Calcium 40 MG TABLET PO (08:34)
[2024-08-06] MEDS: Escitalopram Oxalate 20 MG TABLET PO (08:34)
[2024-08-06] MEDS: Empagliflozin 25 MG TABLET PO (08:34)
--- NOTE | 2024-08-06 10:30 | HO.PSYCHPN ---
Subjective Subjective Date of Service: 08/06/24 Reason For Visit: psychosis Medical Problems Affecting Mental Status: No Interim History: no management issues. Doing well and reports mood is good. Anxiety improving. Ongoing enthusiasm and appreciation around Lexapro. Thankful for staff support. Sleep energy and appetite okay. Medication Compliance: Yes Side effects from medications: No Attending Groups: Yes Review of Systems Acute medical concerns: No Review of Systems Review of Systems Denies Mental Status Exam Mental Status Exam Patient Appearance: Appropriate Patient Orientation: Person, Place, Time and Situation Level of Consciousness: Alert Patient Behavior: Talkative and Good Eye Contact Mood Description: Calm and Apprehensive Affect Description: Apprehensive Patient Cognition Impaired: No Ability to Follow Directions: Good Speech Pattern: Spontaneous Speech Memory Description: Episodic Impaired Diagnostics Vital Signs (24Hr): Vital Signs - 24 hr 08/05/24 19:53 08/06/24 08:00 Temperature 97.7 F 97.9 F Pulse Rate 100 100 Respiratory Rate 16 Blood Pressure 91/52 L 129/72 Pulse Oximetry 96 99 Oxygen Delivery Method Room Air Room Air BMI result Body Mass Index 24.1 Labs 06/28/24 17:51 08/02/24 08:27 Imaging Radiology Impressions: ITS Impressions Chest X-Ray 06/28/24 20:45 IMPRESSION: *Low lung volumes; otherwise, no cardiopulmonary abnormalities identified. *Moderate convex rightward scoliosis of the thoracic spine. Electronically signed by: Ran Castaneda MD 06/29/2024 12:03 AM EST RP Head CT 06/28/24 20:53 IMPRESSION: 1. No acute intracranial pathology. 2. Mild cerebral volume loss and mild chronic microangiopathy. Electronically signed by: Brandon Smith MD 06/28/2024 11:49 PM EST RP Medications Medications Current Medications Acetaminophen (Acetaminophen 325 Mg Tablet) 650 mg PO Q6H PRN PRN Reason: Headache/Pain Mild Scale (1-3) Al Hydroxide/Mg Hydroxide (Magnesium Hydrox/Alum Hydrox 30 Ml Oral.Susp) 30 ml PO Q6H PRN PRN Reason: Heartburn/Nausea Atorvastatin Calcium (Atorvastatin Calcium 40 Mg Tablet) 40 mg PO DAILY [facility] Last Admin: 08/06/24 08:34 Dose: 40 mg Chlorpromazine HCl (Chlorpromazine Hcl 25 Mg Tablet) 25 mg PO TID [facility] Last Admin: 08/06/24 08:34 Dose: 25 mg Empagliflozin (Empagliflozin 25 Mg Tablet) 25 mg PO DAILY [facility] Last Admin: 08/06/24 08:34 Dose: 25 mg Escitalopram Oxalate (Escitalopram Oxalate 20 Mg Tablet) 20 mg PO DAILY [facility] Last Admin: 08/06/24 08:34 Dose: 20 mg Gabapentin (Gabapentin 400 Mg Capsule) 800 mg PO TID [facility] Last Admin: 08/06/24 08:34 Dose: 800 mg Hydroxyzine HCl (Hydroxyzine Hcl 25 Mg Tablet) 25 mg PO Q6H PRN PRN Reason: Anxiety Loperamide HCl (Loperamide Hcl 2 Mg Capsule) 2 mg PO Q6H PRN PRN Reason: Diarrhea Last Admin: 07/01/24 10:23 Dose: 2 mg Lorazepam (Lorazepam 1 Mg Tablet) 2 mg PO BID [facility] Last Admin: 08/06/24 08:34 Dose: 2 mg Lorazepam (Lorazepam 1 Mg Tablet) 1 mg PO DAILY@1300 [facility] Last Admin: 08/05/24 14:06 Dose: 1 mg Magnesium Hydroxide (Milk Of Magnesia 30 Ml Oral.Susp) 30 ml PO DAILY PRN PRN Reason: Constipation Last Admin: 08/03/24 22:13 Dose: 30 ml Metformin HCl (Metformin Hcl 1,000 Mg Tablet) 1,000 mg PO BID [facility] Last Admin: 07/01/24 21:13 Dose: Not Given Metoprolol Succinate (Metoprolol Succinate Er 25 Mg Tab.Er.24h) 25 mg PO DAILY [facility]; Protocol Last Admin: 08/06/24 08:34 Dose: 25 mg Mirtazapine (Mirtazapine 15 Mg Tablet) 45 mg PO BEDTIME [facility] Last Admin: 08/05/24 20:59 Dose: 45 mg Olanzapine (Olanzapine Odt 10 Mg Tab.Rapdis) 5 mg TRANSLINGU Q4H PRN PRN Reason: anxiety/agitation Last Admin: 07/13/24 12:13 Dose: 5 mg Olanzapine (Olanzapine Odt 10 Mg Tab.Rapdis) 10 mg TRANSLINGU BID [facility] Last Admin: 08/06/24 08:34 Dose: 10 mg Allergies Allergies Allergy/AdvReac Type Severity Reaction Status Date / Time haloperidol [From Haldol] Allergy Intermediate Agitated Verified 06/28/24 17:33 lithium Allergy Intermediate Agitated Verified 06/28/24 17:33 oxcarbazepine Allergy Unknown RASH Verified 06/28/24 17:33 [From TRILEPTAL] fluphenazine [From Prolixin] Allergy akathisia Verified 06/28/24 17:33 Assessment & Plan Assessment & Plan (1) Schizoaffective disorder: Status: Acute Code(s): F25.9 - Schizoaffective disorder, unspecified Plan 06/29: restart/continue discharge meds from most recent hospitalization. change to ODT what can be changed to ODT in the hopes that stomach complaint is driven by psychosis and will resolve with adequate neuroleptic and anxiolytic Tx. 06/30: apparently catatonic this morning. per RN, pt has not taken any medications since admission. will add ativan 2 mg TID, staff mechanical engineer to strongly and repeatedly encourage pt to take medication. apparently, this approach worked during most recent admission on M3 with similar presentation. 07/01: Started being compliant. More responsive. Will hold Glucophage due to diarrhea. Imodium. Continue other medications. 07/02: Increase Clozaril to 50 mg HS. DC ODT Clonazepam now that he can swallow OK. Lower Ativan to 1 mg TID. 07/03: Continue current plan. On 07/04 increase Clozaril to 100 mg. 07/05: Pt did agree to labs. If he refuses meds this evening will file Section Seven for consideration. 07/07: Lactulose 30 cc x 1 for pt report of constipation. Continue regime Support, offer encouragement with current stressor, encourage communication with team. 07/08: Continue current regimen and plans for stabilization and medication management 07/09: Continue current regimen and plans for stabilization and medication management 07/11: Increase Clozaril to 50 mg HS from 25 mg HS Decrease Lorazepam to 1.5 mg tid from [address] 07/13. Pt not wanting to talk of this today with tw. 07/13: Olanzapine 10 mg po bid 07/14/24: Decrease Lorazepam to 1 mg tid Intake/Output 07/15/24 patient uncooperative, disorganized and labile behavior- refusing medications- had unit on lock down today- while nursing attempted to help patient stop screaming and throwing things in his room- 07/16 ? agitated catatonia- likely to need urgent ECT- if medically stable for it- and if court can be arranged soon enough- in any case will need medication soon- 07/17- ECT consult Increase Ativan to 2 mg tid Chlorpromazine 25 mg tid 07/18- Recompensated this afternoon, interactive, discussed his concerns about his developmental milestones. Waxing, Waning catatonia? 07/19- Continue tx 07/20: Continue current management and treatment plan. Remains isolated, with waxing and waning symptoms. Med compliant with modest effect. 07/21: Increase Chlorpromazine to 50 mg tid 07/24: Decrease Chlorpromazine to 25 mg tid Increase Lexapro to 10 mg daily 07/25 patient refuses to engage; catatonic like symptoms 07/28 improved today. Continue current plan/regime Antidepressant increased 07/24- observe for induced joe. 07/29 increased Lexapro to 20 mg; will continue to observe for manic symptoms 07/30 Patient remains doing much better, friendly, in the milieu, eating and appropriate with peers and staff, even attending groups and showered. -will DC I/O nos; patient eating and drinking well. 08/02 Continue regime Discharge planning. 08/03 Begin Lorazepam tapering. Decrease from 2 mg tid to 2 mg bid and 1 mg at 1300. 08/04 Continue current plan. 08/06/2024: No changes Reason for continued inpatient stay Substantial Risk for: rapid decompensation Time Spent With Patient Time: Total time managing care of this patient today ____ minutes.
[2024-08-06] MEDS: LORazepam 1 MG TABLET PO (13:59)
[2024-08-06 20:00] VITALS: BP 119/66; PULSE 107; RESP 15; TEMP 36.5; O2SAT 99
[2024-08-06] MEDS: Mirtazapine 15 MG TABLET 45 MG PO (20:55)
[2024-08-07 08:00] VITALS: BP 128/65; PULSE 101; RESP 18; TEMP 36.4; O2SAT 99
[2024-08-07] MEDS: Atorvastatin Calcium 40 MG TABLET PO (09:10)
[2024-08-07] MEDS: Gabapentin 400 MG CAPSULE 800 MG PO ×3 (09:10→20:23)
[2024-08-07] MEDS: Metoprolol Succinate ER 25 MG TAB.ER.24H PO (09:10)
[2024-08-07] MEDS: chlorproMAZINE HCl 25 MG TABLET PO ×3 (09:10→20:24)
[2024-08-07] MEDS: LORazepam 1 MG TABLET 2 MG PO ×2 (09:10→20:24)
[2024-08-07] MEDS: OLANZapine ODT 10 MG TAB.RAPDIS TRANSLINGU ×2 (09:10→20:23)
[2024-08-07] MEDS: Empagliflozin 25 MG TABLET PO (09:10)
[2024-08-07] MEDS: Escitalopram Oxalate 20 MG TABLET PO (09:11)
--- NOTE | 2024-08-07 09:48 | P.PNPSI_ITS ---
Subjective Subjective Date of Service: 08/07/24 Reason For Visit: psychosis Subjective Notes: Section 7 Healthcare Proxy: No Guardianship: No Medical Problems Affecting Mental Status: No Interim History: Tells team depression/anxiety are 2.7 today. Preparing for discharge 08/10. Denies SI/HI/AH/VH. No sx of psychosis/joe Reports feeling well, discussed working with his allergy and immunology specialist upon discharge and increasing social opportunities. Medication Compliance: Yes Side effects from medications: No Attending Groups: Yes Review of Systems Acute medical concerns: No Review of Systems Review of Systems Yes all other systems are reviewed and are negative Mental Status Exam Mental Status Exam Patient Appearance: Appropriate Patient Orientation: Person, Place, Time and Situation Level of Consciousness: Alert Patient Behavior: Appropriate, Talkative, Cooperative and Good Eye Contact Mood Description: Appropriate Affect Description: Appropriate Patient Cognition Impaired: No Ability to Follow Directions: Good Speech Pattern: Spontaneous Speech Memory Description: Intact Hallucinations: None Delusions: Not Present Thought Process: Intact and Goal Oriented Thought Content: positive for Intact and positive for Goal Oriented Depressive Symptoms: Thoughts of /Suicide (denies) Judgement: Good Diagnostics Vital Signs (24Hr): Vital Signs - 24 hr 08/06/24 20:00 08/07/24 08:00 Temperature 97.7 F 97.5 F Pulse Rate 107 H 101 H Respiratory Rate 15 18 Blood Pressure 119/66 128/65 Pulse Oximetry 99 99 Oxygen Delivery Method Room Air BMI result Body Mass Index 24.1 Labs 06/28/24 17:51 08/02/24 08:27 Imaging Radiology Impressions: ITS Impressions Chest X-Ray 06/28/24 20:45 IMPRESSION: *Low lung volumes; otherwise, no cardiopulmonary abnormalities identified. *Moderate convex rightward scoliosis of the thoracic spine. Electronically signed by: Ran Castaneda MD 06/29/2024 12:03 AM EST RP Head CT 06/28/24 20:53 IMPRESSION: 1. No acute intracranial pathology. 2. Mild cerebral volume loss and mild chronic microangiopathy. Electronically signed by: Brandon Smith MD 06/28/2024 11:49 PM EST RP Medications Medications Current Medications Acetaminophen (Acetaminophen 325 Mg Tablet) 650 mg PO Q6H PRN PRN Reason: Headache/Pain Mild Scale (1-3) Al Hydroxide/Mg Hydroxide (Magnesium Hydrox/Alum Hydrox 30 Ml Oral.Susp) 30 ml PO Q6H PRN PRN Reason: Heartburn/Nausea Atorvastatin Calcium (Atorvastatin Calcium 40 Mg Tablet) 40 mg PO DAILY [facility] Last Admin: 08/07/24 09:10 Dose: 40 mg Chlorpromazine HCl (Chlorpromazine Hcl 25 Mg Tablet) 25 mg PO TID [facility] Last Admin: 08/07/24 09:10 Dose: 25 mg Empagliflozin (Empagliflozin 25 Mg Tablet) 25 mg PO DAILY [facility] Last Admin: 08/07/24 09:10 Dose: 25 mg Escitalopram Oxalate (Escitalopram Oxalate 20 Mg Tablet) 20 mg PO DAILY [facility] Last Admin: 08/07/24 09:11 Dose: 20 mg Gabapentin (Gabapentin 400 Mg Capsule) 800 mg PO TID [facility] Last Admin: 08/07/24 09:10 Dose: 800 mg Hydroxyzine HCl (Hydroxyzine Hcl 25 Mg Tablet) 25 mg PO Q6H PRN PRN Reason: Anxiety Loperamide HCl (Loperamide Hcl 2 Mg Capsule) 2 mg PO Q6H PRN PRN Reason: Diarrhea Last Admin: 07/01/24 10:23 Dose: 2 mg Lorazepam (Lorazepam 1 Mg Tablet) 2 mg PO BID [facility] Last Admin: 08/07/24 09:10 Dose: 2 mg Lorazepam (Lorazepam 1 Mg Tablet) 1 mg PO DAILY@1300 [facility] Last Admin: 08/06/24 13:59 Dose: 1 mg Magnesium Hydroxide (Milk Of Magnesia 30 Ml Oral.Susp) 30 ml PO DAILY PRN PRN Reason: Constipation Last Admin: 08/03/24 22:13 Dose: 30 ml Metformin HCl (Metformin Hcl 1,000 Mg Tablet) 1,000 mg PO BID [facility] Last Admin: 07/01/24 21:13 Dose: Not Given Metoprolol Succinate (Metoprolol Succinate Er 25 Mg Tab.Er.24h) 25 mg PO DAILY [facility]; Protocol Last Admin: 08/07/24 09:10 Dose: 25 mg Mirtazapine (Mirtazapine 15 Mg Tablet) 45 mg PO BEDTIME [facility] Last Admin: 08/06/24 20:55 Dose: 45 mg Olanzapine (Olanzapine Odt 10 Mg Tab.Rapdis) 5 mg TRANSLINGU Q4H PRN PRN Reason: anxiety/agitation Last Admin: 07/13/24 12:13 Dose: 5 mg Olanzapine (Olanzapine Odt 10 Mg Tab.Rapdis) 10 mg TRANSLINGU BID [facility] Last Admin: 08/07/24 09:10 Dose: 10 mg Allergies Allergies Allergy/AdvReac Type Severity Reaction Status Date / Time haloperidol [From Haldol] Allergy Intermediate Agitated Verified 06/28/24 17:33 lithium Allergy Intermediate Agitated Verified 06/28/24 17:33 oxcarbazepine Allergy Unknown RASH Verified 06/28/24 17:33 [From TRILEPTAL] fluphenazine [From Prolixin] Allergy akathisia Verified 06/28/24 17:33 Assessment & Plan Assessment & Plan (1) Schizoaffective disorder: Status: Acute Code(s): F25.9 - Schizoaffective disorder, unspecified Plan 06/29: restart/continue discharge meds from most recent hospitalization. change to ODT what can be changed to ODT in the hopes that stomach complaint is driven by psychosis and will resolve with adequate neuroleptic and anxiolytic Tx. 06/30: apparently catatonic this morning. per RN, pt has not taken any medications since admission. will add ativan 2 mg TID, waitstaff captain to strongly and repeatedly encourage pt to take medication. apparently, this approach worked during most recent admission on M3 with similar presentation. 07/01: Started being compliant. More responsive. Will hold Glucophage due to diarrhea. Imodium. Continue other medications. 07/02: Increase Clozaril to 50 mg HS. DC ODT Clonazepam now that he can swallow OK. Lower Ativan to 1 mg TID. 07/03: Continue current plan. On 07/04 increase Clozaril to 100 mg. 07/05: Pt did agree to labs. If he refuses meds this evening will file [facility] Seven for consideration. 07/07: Lactulose 30 cc x 1 for pt report of constipation. Continue regime Support, offer encouragement with current stressor, encourage communication with team. 07/08: Continue current regimen and plans for stabilization and medication management 07/09: Continue current regimen and plans for stabilization and medication management 07/11: Increase Clozaril to 50 mg HS from 25 mg HS Decrease Lorazepam to 1.5 mg tid from [address] 07/13. Pt not wanting to talk of this today with tw. 07/13: Olanzapine 10 mg po bid 07/14/24: Decrease Lorazepam to 1 mg tid Intake/Output 07/15/24 patient uncooperative, disorganized and labile behavior- refusing medications- had unit on lock down today- while nursing attempted to help patient stop screaming and throwing things in his room- 07/16 ? agitated catatonia- likely to need urgent ECT- if medically stable for it- and if court can be arranged soon enough- in any case will need medication soon- 07/17- ECT consult Increase Ativan to 2 mg tid Chlorpromazine 25 mg tid 07/18- Recompensated this afternoon, interactive, discussed his concerns about his developmental milestones. Waxing, Waning catatonia? 07/19- Continue tx 07/20: Continue current management and treatment plan. Remains isolated, with waxing and waning symptoms. Med compliant with modest effect. 07/21: Increase Chlorpromazine to 50 mg tid 07/24: Decrease Chlorpromazine to 25 mg tid Increase Lexapro to 10 mg daily 07/25 patient refuses to engage; catatonic like symptoms 07/28 improved today. Continue current plan/regime Antidepressant increased 07/24- observe for induced joe. 07/29 increased Lexapro to 20 mg; will continue to observe for manic symptoms 07/30 Patient remains doing much better, friendly, in the milieu, eating and appropriate with peers and staff, even attending groups and showered. -will DC I/O nos; patient eating and drinking well. 08/02 Continue regime Discharge planning. 08/03 Begin Lorazepam tapering. Decrease from 2 mg tid to 2 mg bid and 1 mg at 1300. 08/04 Continue current plan. 08/06/2024: No changes 08/07/24 On 08/08 decrease Lorazepam to 2 mg bid Reason for continued inpatient stay Substantial Risk for: rapid decompensation Time Spent With Patient Time: Total time managing care of this patient today ____ minutes.
[2024-08-07] MEDS: LORazepam 1 MG TABLET PO (13:01)
[2024-08-07] MEDS: Mirtazapine 15 MG TABLET 45 MG PO (20:23)
[2024-08-08 08:00] VITALS: BP 126/67; PULSE 95; RESP 16; TEMP 36.4; O2SAT 96
[2024-08-08] MEDS: Gabapentin 400 MG CAPSULE 800 MG PO ×2 (08:35→15:25)
[2024-08-08] MEDS: Atorvastatin Calcium 40 MG TABLET PO (08:36)
[2024-08-08] MEDS: OLANZapine ODT 10 MG TAB.RAPDIS TRANSLINGU (08:36)
[2024-08-08] MEDS: LORazepam 1 MG TABLET 2 MG PO (08:36)
[2024-08-08] MEDS: chlorproMAZINE HCl 25 MG TABLET PO ×2 (08:36→15:25)
[2024-08-08] MEDS: Metoprolol Succinate ER 25 MG TAB.ER.24H PO (08:36)
[2024-08-08] MEDS: Empagliflozin 25 MG TABLET PO (08:36)
[2024-08-08] MEDS: Escitalopram Oxalate 20 MG TABLET PO (08:36)
--- NOTE | 2024-08-08 17:08 | HO.PSYCHPN ---
Subjective Subjective Date of Service: 08/08/24 Reason For Visit: psychosis Subjective Notes: Section 7 Healthcare Proxy: No Guardianship: No Medical Problems Affecting Mental Status: No Interim History: Ativan decreased to 4 mg daily from 5 mg daily. Recent decrease has had no adverse effect per pt/team. Today, pt discussed discharge. He states he feels some excitement and is thinking about how to talk with people in saying good bye and thank you for helping him. He asks, what would you like most in the world for people to say to you? . I would like to hear from people that I matter, and here I hear that consistently and I feel very good about that. Thank you all. Reports depression/anxiety are at a 2.6 today, reports feeling ready for discharge and I feel really well. Medication Compliance: Yes Side effects from medications: No Attending Groups: Yes Review of Systems Acute medical concerns: No Review of Systems Review of Systems Yes all other systems are reviewed and are negative Mental Status Exam Mental Status Exam Patient Appearance: Appropriate Patient Orientation: Person, Place, Time and Situation Level of Consciousness: Alert Patient Behavior: Appropriate, Talkative, Cooperative and Good Eye Contact Mood Description: Appropriate Affect Description: Appropriate Patient Cognition Impaired: No Ability to Follow Directions: Good Speech Pattern: Spontaneous Speech Memory Description: Intact Hallucinations: None Delusions: Not Present Thought Process: Intact and Goal Oriented Thought Content: positive for Intact and positive for Goal Oriented Depressive Symptoms: Thoughts of /Suicide (denies) Judgement: Good Diagnostics Vital Signs (24Hr): Vital Signs - 24 hr 08/08/24 08:00 Temperature 97.6 F Pulse Rate 95 Respiratory Rate 16 Blood Pressure 126/67 Pulse Oximetry 96 Oxygen Delivery Method Room Air BMI result Body Mass Index 24.1 Labs 08/08/24 21:57 08/08/24 21:57 Imaging Radiology Impressions: ITS Impressions Chest X-Ray 06/28/24 20:45 IMPRESSION: *Low lung volumes; otherwise, no cardiopulmonary abnormalities identified. *Moderate convex rightward scoliosis of the thoracic spine. Electronically signed by: Ran Castaneda MD 06/29/2024 12:[address] 06/28/24 20:53 IMPRESSION: 1. No acute intracranial pathology. 2. Mild cerebral volume loss and mild chronic microangiopathy. Electronically signed by: Brandon Smith MD 06/28/2024 11:49 PM [facility] [place] Medications Medications Current Medications Acetaminophen (Acetaminophen 325 Mg Tablet) 650 mg PO Q6H PRN PRN Reason: Headache/Pain Mild Scale (1-3) Al Hydroxide/Mg Hydroxide (Magnesium Hydrox/Alum Hydrox 30 Ml Oral.Susp) 30 ml PO Q6H PRN PRN Reason: Heartburn/Nausea Atorvastatin Calcium (Atorvastatin Calcium 40 Mg Tablet) 40 mg PO DAILY [facility] Last Admin: 08/08/24 08:36 Dose: 40 mg Chlorpromazine HCl (Chlorpromazine Hcl 25 Mg Tablet) 25 mg PO TID [facility] Last Admin: 08/08/24 15:25 Dose: 25 mg Empagliflozin (Empagliflozin 25 Mg Tablet) 25 mg PO DAILY [facility] Last Admin: 08/08/24 08:36 Dose: 25 mg Escitalopram Oxalate (Escitalopram Oxalate 20 Mg Tablet) 20 mg PO DAILY [facility] Last Admin: 08/08/24 08:36 Dose: 20 mg Gabapentin (Gabapentin 400 Mg Capsule) 800 mg PO TID [facility] Last Admin: 08/08/24 15:25 Dose: 800 mg Hydroxyzine HCl (Hydroxyzine Hcl 25 Mg Tablet) 25 mg PO Q6H PRN PRN Reason: Anxiety Loperamide HCl (Loperamide Hcl 2 Mg Capsule) 2 mg PO Q6H PRN PRN Reason: Diarrhea Last Admin: 07/01/24 10:23 Dose: 2 mg Lorazepam (Lorazepam 1 Mg Tablet) 2 mg PO BID [facility] Last Admin: 08/08/24 08:36 Dose: 2 mg Magnesium Hydroxide (Milk Of Magnesia 30 Ml Oral.Susp) 30 ml PO DAILY PRN PRN Reason: Constipation Last Admin: 08/03/24 22:13 Dose: 30 ml Metformin HCl (Metformin Hcl 1,000 Mg Tablet) 1,000 mg PO BID [facility] Last Admin: 07/01/24 21:13 Dose: Not Given Metoprolol Succinate (Metoprolol Succinate Er 25 Mg Tab.Er.24h) 25 mg PO DAILY [facility]; Protocol Last Admin: 08/08/24 08:36 Dose: 25 mg Mirtazapine (Mirtazapine 15 Mg Tablet) 45 mg PO BEDTIME [facility] Last Admin: 08/07/24 20:23 Dose: 45 mg Olanzapine (Olanzapine Odt 10 Mg Tab.Rapdis) 5 mg TRANSLINGU Q4H PRN PRN Reason: anxiety/agitation Last Admin: 07/13/24 12:13 Dose: 5 mg Olanzapine (Olanzapine Odt 10 Mg Tab.Rapdis) 10 mg TRANSLINGU BID [facility] Last Admin: 08/08/24 08:36 Dose: 10 mg Allergies Allergies Allergy/AdvReac Type Severity Reaction Status Date / Time haloperidol [From Haldol] Allergy Intermediate Agitated Verified 06/28/24 17:33 lithium Allergy Intermediate Agitated Verified 06/28/24 17:33 oxcarbazepine Allergy Unknown RASH Verified 06/28/24 17:33 [From TRILEPTAL] fluphenazine [From Prolixin] Allergy akathisia Verified 06/28/24 17:33 Assessment & Plan Assessment & Plan (1) Schizoaffective disorder: Status: Acute Code(s): F25.9 - Schizoaffective disorder, unspecified Plan 06/29: restart/continue discharge meds from most recent hospitalization. change to ODT what can be changed to ODT in the hopes that stomach complaint is driven by psychosis and will resolve with adequate neuroleptic and anxiolytic Tx. 06/30: apparently catatonic this morning. per RN, pt has not taken any medications since admission. will add ativan 2 mg TID, staffing analyst to strongly and repeatedly encourage pt to take medication. apparently, this approach worked during most recent admission on M3 with similar presentation. 07/01: Started being compliant. More responsive. Will hold Glucophage due to diarrhea. Imodium. Continue other medications. 07/02: Increase Clozaril to 50 mg HS. DC ODT Clonazepam now that he can swallow OK. Lower Ativan to 1 mg TID. 07/03: Continue current plan. On 07/04 increase Clozaril to 100 mg. 07/05: Pt did agree to labs. If he refuses meds this evening will file Section Seven for consideration. 07/07: Lactulose 30 cc x 1 for pt report of constipation. Continue regime Support, offer encouragement with current stressor, encourage communication with team. 07/08: Continue current regimen and plans for stabilization and medication management 07/09: Continue current regimen and plans for stabilization and medication management 07/11: Increase Clozaril to 50 mg HS from 25 mg HS Decrease Lorazepam to 1.5 mg tid from [address] 07/13. Pt not wanting to talk of this today with tw. 07/13: Olanzapine 10 mg po bid 07/14/24: Decrease Lorazepam to 1 mg tid Intake/Output 07/15/24 patient uncooperative, disorganized and labile behavior- refusing medications- had unit on lock down today- while nursing attempted to help patient stop screaming and throwing things in his room- 07/16 ? agitated catatonia- likely to need urgent ECT- if medically stable for it- and if court can be arranged soon enough- in any case will need medication soon- 07/17- ECT consult Increase Ativan to 2 mg tid Chlorpromazine 25 mg tid 07/18- Recompensated this afternoon, interactive, discussed his concerns about his developmental milestones. Waxing, Waning catatonia? 07/19- Continue tx 07/20: Continue current management and treatment plan. Remains isolated, with waxing and waning symptoms. Med compliant with modest effect. 07/21: Increase Chlorpromazine to 50 mg tid 07/24: Decrease Chlorpromazine to 25 mg tid Increase Lexapro to 10 mg daily 07/25 patient refuses to engage; catatonic like symptoms 07/28 improved today. Continue current plan/regime Antidepressant increased 07/24- observe for induced joe. 07/29 increased Lexapro to 20 mg; will continue to observe for manic symptoms 07/30 Patient remains doing much better, friendly, in the milieu, eating and appropriate with peers and staff, even attending groups and showered. -will DC I/O nos; patient eating and drinking well. 08/02 Continue regime Discharge planning. 08/03 Begin Lorazepam tapering. Decrease from 2 mg tid to 2 mg bid and 1 mg at 1300. 08/04 Continue current plan. 08/06/2024: No changes 08/07/24 On 08/08 decrease Lorazepam to 2 mg bid 08/08- Decrease of Lorazepam Discharge 08/10. Reason for continued inpatient stay Substantial Risk for: rapid decompensation Time Spent With Patient Time: Total time managing care of this patient today ____ minutes.
[2024-08-08 20:00] VITALS: BP 119/53; PULSE 94; TEMP 37.2; O2SAT 94
--- NOTE | 2024-08-08 20:33 | PC.NURSE ---
At approximately 2014, this leader writer attempted to assess this patient. He did not look at this leader writer, and only said whatever after this leader writer asked him how are you? His hands were under the blanket, folded, and his hands were shaking. Charge nurse Carmen Champion was notified. The patient cannot sit up to take oral medications at the time of this writing. Dr Chavarria has been notified at this time by Charge Carmen Champion. Awaiting further orders.
--- NOTE | 2024-08-08 20:39 | PC.NURSE ---
2 mg of Lorazepam IM has been ordered for the patient at this time, by Dr. Chavarria.
--- NOTE | 2024-08-08 20:42 | PM.EVENT ---
Event Note Date of Service: 08/08/24 Event Note: nurse reported pt returned to catatonic state; today was first day Ativan 2 mg changed from TID to BID; pt not moving, staring blankly. Veteran Appeals Reviewer ordered Ativan IM since nurse unsure if he could take it PO. He was then able to squeeze nurses hand and track her with his eyes (which he could not do before. Given another Ativan 2mg IM and was able to move still more, lift arm, move leg but still not speaking and incontinent of urine. Vitals WNL except tachypneic so called Rapid Response (not wanting to risk sedation if not catatonia) Time Spent With Patient Time: Total time managing care of this patient today ____ minutes.
[2024-08-08] MEDS: LORazepam 2 MG/ML VIAL IM ×3 (20:44→21:41)
--- NOTE | 2024-08-08 21:33 | PM.EVENT ---
Event Note Date of Service: 08/08/24 Event Note: Rapid response was called as patient was found to be catatonic, minimally responsive and staring blankly. Does have a history of waxing and waning catatonic state in the setting of schizoaffective disorder. 2 mg IM Ativan given x2 and improvement noted >> Patient able to follow commands including squeezing provider's hand and tracking with eyes. Hemodynamically stable. Satting 99% on room air. POC okay. Will give additional 2 mg IM ativan. Obtaining labs including VBG. Time Spent With Patient Time: Total time managing care of this patient today ____ minutes.
[2024-08-08 21:35] LABS: Glucose, Whole Blood 216 mg/dL (60-115)
--- NOTE | 2024-08-08 21:43 | PC.NURSE ---
A rapid response was called on this patient at approximately 0. It was determined by the rapid team that the patient should remain on the M5 unit. 2 mg of Lorazepam IM were ordered stat and were given by this blog writer at this time.
[2024-08-08 22:02] LABS: MANUAL DIFF FLAG NO
[2024-08-08 22:05] LABS: Basophils Absolute Auto 0.1 X10*3/uL (0.0-0.2); Eosinophils Absolute Auto 0.1 X10*3/uL (0.0-0.4); Eosinophils Percent Auto 1.3 % (0-4); Hematocrit 42.7 % (42.0-52.0); Hemoglobin 14.1 g/dl (14.0-18.0); Imm Gran Abs Auto 0.03 X10*3/uL (0.00-0.03); Imm Gran Pct Auto 0.3 % (0.0-0.4); Lymphocytes Absolute Auto 1.4 X10*3/uL (1.2-4.9); Lymphocytes Percent Auto 13.2 % (20-40); Mean Corpuscular Hemoglobin 28.2 pg (27.0-33.0); Mean Corpuscular Volume 85.4 fL (80.0-98.0); Mean Platelet Volume 9.4 fL (9.4-12.4); Monocytes Absolute Auto 0.5 X10*3/uL (0.1-1.2); Monocytes Percent Auto 4.8 % (2-11); Neutrophils Absolute Auto 8.3 x10*3/uL (2.0-8.3); Neutrophils Percent Auto 79.4 % (45-73); Platelet Count 297 X10*3/uL (160-400); Red Cell Distribution Width 14.2 % (11.0-16.0); White Blood Count 10.4 X10*3/uL (4.8-10.8)
[2024-08-08 22:10] LABS: VBG HCO3 27 mmol/L (22-26); VBG pCO2 39 mmHg; VBG pH 7.44 (7.32-7.43); VBG pO2 57 mmHg
[2024-08-08 22:14] LABS: Venous Blood Gas Refer to POC result
[2024-08-08 22:23] LABS: Alanine Aminotransferase 112 U/L (0-40); Alkaline Phosphatase 195 U/L (39-117); Anion Gap 10 (12-20); Aspartate Amino Transferase 33 U/L (5-37); Bilirubin Total 0.4 mg/dL (0.0-1.0); Blood Urea Nitrogen 18 mg/dL (9-16); Calcium 9.3 mg/dL (8.4-10.2); Carbon Dioxide 27 mmol/L (22-29); Chloride 107 mmol/L (96-108); Creatinine Clr Calc Pharmacy 116.6; Estimated Glomerular Filt Rate > 60; Glucose Random 205 mg/dL (60-115); Potassium 3.8 mmol/L (3.3-5.1); Sodium 140 mmol/L (135-145); Total Protein 6.3 g/dL (6.5-8.0)
--- NOTE | 2024-08-08 22:56 | PC.NURSE ---
The patient was noted to have been incontinent of urine; this engineering writer and [facility] were about to change and clean this patient, when he stood and took his soiled clothing off. He wiped his own groin and bottom off with bath wipes, and put on his own fresh angelina pants. He stood with arms out to allow this engineering writer to put on a fresh angelina top. He stood while his bed was cleaned and fresh linens placed on same. He got back in the bed of his own volition when the linens were in place.
--- NOTE | 2024-08-08 23:39 | PC.NURSE ---
Patient accepted and drank a 240 ml cup of water as well as a container of milk when offered.
[2024-08-09] MEDS: LORazepam 1 MG TABLET 2 MG PO ×4 (00:13→21:13)
[2024-08-09] MEDS: Gabapentin 400 MG CAPSULE 800 MG PO ×4 (00:13→21:13)
[2024-08-09] MEDS: chlorproMAZINE HCl 25 MG TABLET PO ×4 (00:14→21:13)
[2024-08-09] MEDS: OLANZapine ODT 10 MG TAB.RAPDIS TRANSLINGU ×3 (00:14→21:13)
--- NOTE | 2024-08-09 00:16 | PC.NURSE ---
Patient had a CT scan and returned to . He requested and received his HS medications. He then spoke and told this flex o writer operator Have a good remainder of the night!
[2024-08-09] MEDS: Escitalopram Oxalate 20 MG TABLET PO (08:54)
[2024-08-09 08:55] VITALS: BP 122/76; PULSE 106
[2024-08-09] MEDS: Metoprolol Succinate ER 25 MG TAB.ER.24H PO (08:55)
[2024-08-09] MEDS: Atorvastatin Calcium 40 MG TABLET PO (08:55)
[2024-08-09 08:58] VITALS: BP 122/76; PULSE 106; TEMP 36.5; O2SAT 98
[2024-08-09] MEDS: Empagliflozin 25 MG TABLET PO (10:48)
--- NOTE | 2024-08-09 14:21 | HO.PSYCHPN ---
Subjective Subjective Date of Service: 08/09/24 Reason For Visit: psychosis Subjective Notes: Section 7 Healthcare Proxy: No Guardianship: No Medical Problems Affecting Mental Status: No Interim History: Per team report, pt became catatonic last evening, requiring 6 mg Ativan to begin to recompensate. As a result, discharge is cancelled and Lorazepam is returned to 6 mg daily. Pt appears tired, withdrawn, depressed today. He is eating when we meet with him and states he is exhausted. He did not attend groups. He court date was extended to 08/17 2pm. Medication Compliance: Yes Side effects from medications: Yes (sedated) Attending Groups: No Review of Systems Acute medical concerns: No Review of Systems Review of Systems tired, sedate. Mental Status Exam Mental Status Exam Patient Appearance: Fatigued and Disheveled Patient Orientation: Person, Place, Time and Situation Level of Consciousness: Alert Patient Behavior: Talkative, Sedated, Fatigued and Poor Eye Contact Mood Description: Depressed and Flat Affect Description: Calm and Flat Patient Cognition Impaired: No Ability to Follow Directions: Good Speech Pattern: Spontaneous Speech and Soft-Spoken Memory Description: Episodic Impaired Hallucinations: None Delusions: Not Present Thought Process: Rumination Thought Content: positive for Perseveration and positive for Suicidal Ideation (denies) Depressive Symptoms: Hopelessness, Unhappiness and Low Self Esteem Judgement: Fair Diagnostics Vital Signs (24Hr): Vital Signs - 24 hr 08/08/24 20:00 08/09/24 08:55 08/09/24 08:58 Temperature 98.9 F 97.7 F Pulse Rate 94 106 H 106 H Blood Pressure 119/53 L 122/76 122/76 Pulse Oximetry 94 98 Oxygen Delivery Method Room Air Room Air BMI result Body Mass Index 24.1 Labs 08/08/24 21:57 08/08/24 21:57 Labs: Laboratory Results - last 48 hr 08/08/24 08/08/24 08/08/24 21:28 21:57 22:04 WBC 10.4 RBC 5.00 Hgb 14.1 Hct 42.7 MCV 85.4 MCH 28.2 MCHC 33.0 RDW 14.2 Plt Count 297 MPV 9.4 Immature Gran % (Auto) 0.3 Neut % (Auto) 79.4 H Lymph % (Auto) 13.2 L Webb % (Auto) 4.8 Eos % (Auto) 1.3 Baso % (Auto) 1.0 Lymph # (Auto) 1.4 Webb # (Auto) 0.5 Eos # (Auto) 0.1 Baso # (Auto) 0.1 Abs Immat Gran (auto) 0.03 Absolute Neuts (auto) 8.3 Absolute Nucleated RBC 0.000 Nucleated RBC % (auto) 0.0 VBG pH 7.44 H VBG pCO2 39 VBG pO2 57 VBG HCO3 27 H VBG O2 Saturation 87.0 VBG Base Excess 3.0 Sodium 140 Potassium 3.8 Chloride 107 Carbon Dioxide 27 Anion Gap 10 L BUN 18 H Creatinine 0.85 Estim Creat Clear Calc 116.6 Estimated GFR > 60 POC Glucose 216 H Random Glucose 205 H Calcium 9.3 D Total Bilirubin 0.4 AST 33 ALT 112 H Alkaline Phosphatase 195 H Total Protein 6.3 L Albumin 4.0 TSH 1.10 Imaging Radiology Impressions: ITS Impressions Chest X-Ray 06/28/24 20:45 IMPRESSION: *Low lung volumes; otherwise, no cardiopulmonary abnormalities identified. *Moderate convex rightward scoliosis of the thoracic spine. Electronically signed by: Ran Castaneda MD 06/29/2024 12:03 AM EST RP Head CT 06/28/24 20:53 IMPRESSION: 1. No acute intracranial pathology. 2. Mild cerebral volume loss and mild chronic microangiopathy. Electronically signed by: Brandon Smith MD 06/28/2024 11:49 PM EST RP Head CT 08/08/24 23:58 IMPRESSION: 1. No evidence of acute intracranial hemorrhage or edematous territorial infarction. 2. Mild underlying microangiopathy and generalized cerebral volume loss. Electronically signed by: Benjamin Davis DO 08/09/2024 01:51 AM EST RP Medications Medications Current Medications Acetaminophen (Acetaminophen 325 Mg Tablet) 650 mg PO Q6H PRN PRN Reason: Headache/Pain Mild Scale (1-3) Al Hydroxide/Mg Hydroxide (Magnesium Hydrox/Alum Hydrox 30 Ml Oral.Susp) 30 ml PO Q6H PRN PRN Reason: Heartburn/Nausea Atorvastatin Calcium (Atorvastatin Calcium 40 Mg Tablet) 40 mg PO DAILY [facility] Last Admin: 08/09/24 08:55 Dose: 40 mg Chlorpromazine HCl (Chlorpromazine Hcl 25 Mg Tablet) 25 mg PO TID [facility] Last Admin: 08/09/24 08:55 Dose: 25 mg Empagliflozin (Empagliflozin 25 Mg Tablet) 25 mg PO DAILY [facility] Last Admin: 08/09/24 10:48 Dose: 25 mg Escitalopram Oxalate (Escitalopram Oxalate 20 Mg Tablet) 20 mg PO DAILY [facility] Last Admin: 08/09/24 08:54 Dose: 20 mg Gabapentin (Gabapentin 400 Mg Capsule) 800 mg PO TID [facility] Last Admin: 08/09/24 08:53 Dose: 800 mg Hydroxyzine HCl (Hydroxyzine Hcl 25 Mg Tablet) 25 mg PO Q6H PRN PRN Reason: Anxiety Loperamide HCl (Loperamide Hcl 2 Mg Capsule) 2 mg PO Q6H PRN PRN Reason: Diarrhea Last Admin: 07/01/24 10:23 Dose: 2 mg Lorazepam (Lorazepam 1 Mg Tablet) 2 mg PO TID [facility] Last Admin: 08/09/24 08:54 Dose: 2 mg Magnesium Hydroxide (Milk Of Magnesia 30 Ml Oral.Susp) 30 ml PO DAILY PRN PRN Reason: Constipation Last Admin: 08/03/24 22:13 Dose: 30 ml Metformin HCl (Metformin Hcl 1,000 Mg Tablet) 1,000 mg PO BID [facility] Last Admin: 07/01/24 21:13 Dose: Not Given Metoprolol Succinate (Metoprolol Succinate Er 25 Mg Tab.Er.24h) 25 mg PO DAILY [facility]; Protocol Last Admin: 08/09/24 08:55 Dose: 25 mg Mirtazapine (Mirtazapine 15 Mg Tablet) 45 mg PO BEDTIME [facility] Last Admin: 08/09/24 00:12 Dose: Not Given Olanzapine (Olanzapine Odt 10 Mg Tab.Rapdis) 5 mg TRANSLINGU Q4H PRN PRN Reason: anxiety/agitation Last Admin: 07/13/24 12:13 Dose: 5 mg Olanzapine (Olanzapine Odt 10 Mg Tab.Rapdis) 10 mg TRANSLINGU BID [facility] Last Admin: 08/09/24 08:54 Dose: 10 mg Allergies Allergies Allergy/AdvReac Type Severity Reaction Status Date / Time haloperidol [From Haldol] Allergy Intermediate Agitated Verified 06/28/24 17:33 lithium Allergy Intermediate Agitated Verified 06/28/24 17:33 oxcarbazepine Allergy Unknown RASH Verified 06/28/24 17:33 [From TRILEPTAL] fluphenazine [From Prolixin] Allergy akathisia Verified 06/28/24 17:33 Assessment & Plan Assessment & Plan (1) Schizoaffective disorder: Status: Acute Code(s): F25.9 - Schizoaffective disorder, unspecified Plan 06/29: restart/continue discharge meds from most recent hospitalization. change to ODT what can be changed to ODT in the hopes that stomach complaint is driven by psychosis and will resolve with adequate neuroleptic and anxiolytic Tx. 06/30: apparently catatonic this morning. per RN, pt has not taken any medications since admission. will add ativan 2 mg TID, staff electronic warfare officer to strongly and repeatedly encourage pt to take medication. apparently, this approach worked during most recent admission on M3 with similar presentation. 07/01: Started being compliant. More responsive. Will hold Glucophage due to diarrhea. Imodium. Continue other medications. 07/02: Increase Clozaril to 50 mg HS. DC ODT Clonazepam now that he can swallow OK. Lower Ativan to 1 mg TID. 07/03: Continue current plan. On 07/04 increase Clozaril to 100 mg. 07/05: Pt did agree to labs. If he refuses meds this evening will file Section Seven for consideration. 07/07: Lactulose 30 cc x 1 for pt report of constipation. Continue regime Support, offer encouragement with current stressor, encourage communication with team. 07/08: Continue current regimen and plans for stabilization and medication management 07/09: Continue current regimen and plans for stabilization and medication management 07/11: Increase Clozaril to 50 mg HS from 25 mg HS Decrease Lorazepam to 1.5 mg tid from [address] 07/13. Pt not wanting to talk of this today with tw. 07/13: Olanzapine 10 mg po bid 07/14/24: Decrease Lorazepam to 1 mg tid Intake/Output 07/15/24 patient uncooperative, disorganized and labile behavior- refusing medications- had unit on lock down today- while nursing attempted to help patient stop screaming and throwing things in his room- 07/16 ? agitated catatonia- likely to need urgent ECT- if medically stable for it- and if court can be arranged soon enough- in any case will need medication soon- 07/17- ECT consult Increase Ativan to 2 mg tid Chlorpromazine 25 mg tid 07/18- Recompensated this afternoon, interactive, discussed his concerns about his developmental milestones. Waxing, Waning catatonia? 07/19- Continue tx 07/20: Continue current management and treatment plan. Remains isolated, with waxing and waning symptoms. Med compliant with modest effect. 07/21: Increase Chlorpromazine to 50 mg tid 07/24: Decrease Chlorpromazine to 25 mg tid Increase Lexapro to 10 mg daily 07/25 patient refuses to engage; catatonic like symptoms 07/28 improved today. Continue current plan/regime Antidepressant increased 07/24- observe for induced joe. 07/29 increased Lexapro to 20 mg; will continue to observe for manic symptoms 07/30 Patient remains doing much better, friendly, in the milieu, eating and appropriate with peers and staff, even attending groups and showered. -will DC I/O nos; patient eating and drinking well. 08/02 Continue regime Discharge planning. 08/03 Begin Lorazepam tapering. Decrease from 2 mg tid to 2 mg bid and 1 mg at 1300. 08/04 Continue current plan. 08/06/2024: No changes 08/07/24 On 08/08 decrease Lorazepam to 2 mg bid 08/09- On 08/08 evening pt experienced a relapse of catatonia as we were continuing Lorazepam tapering from 5 mg daily to 4 mg daily. He is re-established at 6 mg daily at this time, after receiving 6 mg extra on 08/08 by production line assembler and hospitalist team. Discharge is cancelled. We will continue to monitor. Reason for continued inpatient stay Substantial Risk for: rapid decompensation Time Spent With Patient Time: Total time managing care of this patient today ____ minutes.
[2024-08-09 20:00] VITALS: BP 115/59; PULSE 113; RESP 18; TEMP 36.7; O2SAT 99
[2024-08-09] MEDS: Mirtazapine 15 MG TABLET 45 MG PO (21:13)
[2024-08-10 07:00] VITALS: BMI 23.4
[2024-08-10 07:58] VITALS: BP 156/64; PULSE 97; RESP 18; TEMP 36.4; O2SAT 97
[2024-08-10] MEDS: OLANZapine ODT 10 MG TAB.RAPDIS TRANSLINGU ×2 (08:32→22:00)
[2024-08-10] MEDS: LORazepam 1 MG TABLET 2 MG PO ×3 (08:32→22:01)
[2024-08-10] MEDS: Metoprolol Succinate ER 25 MG TAB.ER.24H PO (08:32)
[2024-08-10] MEDS: chlorproMAZINE HCl 25 MG TABLET PO ×3 (08:32→22:02)
[2024-08-10] MEDS: Gabapentin 400 MG CAPSULE 800 MG PO ×3 (08:32→22:02)
[2024-08-10] MEDS: Escitalopram Oxalate 20 MG TABLET PO (08:32)
[2024-08-10] MEDS: Empagliflozin 25 MG TABLET PO (08:32)
[2024-08-10] MEDS: Atorvastatin Calcium 40 MG TABLET PO (08:32)
--- NOTE | 2024-08-10 09:58 | HO.PSYCHPN ---
Subjective Subjective Date of Service: 08/10/24 Reason For Visit: psychosis Subjective Notes: Section 7 Healthcare Proxy: No Guardianship: No Medical Problems Affecting Mental Status: No Interim History: Reports depression/anxiety is 7.3/7.3. Spoke briefly in one to one. Denies SI, HI, AH, VH Appears fatigued and affirms this. We discussed postponing his discharge and he is in agreement. Medication Compliance: Yes Side effects from medications: No Attending Groups: Intermittent Review of Systems Acute medical concerns: No Review of Systems Review of Systems tired today Mental Status Exam Mental Status Exam Patient Appearance: Fatigued Patient Orientation: Person, Place, Time and Situation Level of Consciousness: Alert Patient Behavior: Talkative and Good Eye Contact Mood Description: Withdrawn and Depressed Affect Description: Flat Patient Cognition Impaired: No Ability to Follow Directions: Good Speech Pattern: Spontaneous Speech and Soft-Spoken Memory Description: Episodic Impaired Hallucinations: None Delusions: Not Present Thought Process: Rumination Thought Content: positive for Perseveration Depressive Symptoms: Sleeping More Than Usual, Increased Fatigue and Loss of Energy Judgement: Fair Diagnostics Vital Signs (24Hr): Vital Signs - 24 hr 08/09/24 20:00 08/10/24 07:58 Temperature 98.0 F 97.6 F Pulse Rate 113 H 97 Respiratory Rate 18 18 Blood Pressure 115/59 L 156/64 H Pulse Oximetry 99 97 Oxygen Delivery Method Room Air Room Air BMI result Body Mass Index 24.1 Labs 08/08/24 21:57 08/08/24 21:57 Labs: Laboratory Results - last 48 hr 08/08/24 08/08/24 08/08/24 21:28 21:57 22:04 WBC 10.4 RBC 5.00 Hgb 14.1 Hct 42.7 MCV 85.4 MCH 28.2 MCHC 33.0 RDW 14.2 Plt Count 297 MPV 9.4 Immature Gran % (Auto) 0.3 Neut % (Auto) 79.4 H Lymph % (Auto) 13.2 L Harlan % (Auto) 4.8 Eos % (Auto) 1.3 Baso % (Auto) 1.0 Lymph # (Auto) 1.4 Harlan # (Auto) 0.5 Eos # (Auto) 0.1 Baso # (Auto) 0.1 Abs Immat Gran (auto) 0.03 Absolute Neuts (auto) 8.3 Absolute Nucleated RBC 0.000 Nucleated RBC % (auto) 0.0 VBG pH 7.44 H VBG pCO2 39 VBG pO2 57 VBG HCO3 27 H VBG O2 Saturation 87.0 VBG Base Excess 3.0 Sodium 140 Potassium 3.8 Chloride 107 Carbon Dioxide 27 Anion Gap 10 L BUN 18 H Creatinine 0.85 Estim Creat Clear Calc 116.6 Estimated GFR > 60 POC Glucose 216 H Random Glucose 205 H Calcium 9.3 D Total Bilirubin 0.4 AST 33 ALT 112 H Alkaline Phosphatase 195 H Total Protein 6.3 L Albumin 4.0 TSH 1.10 Imaging Radiology Impressions: ITS Impressions Chest X-Ray 06/28/24 20:45 IMPRESSION: *Low lung volumes; otherwise, no cardiopulmonary abnormalities identified. *Moderate convex rightward scoliosis of the thoracic spine. Electronically signed by: Ran Castaneda MD 06/29/2024 12:03 AM EST RP Head CT 06/28/24 20:53 IMPRESSION: 1. No acute intracranial pathology. 2. Mild cerebral volume loss and mild chronic microangiopathy. Electronically signed by: Brandon Smith MD 06/28/2024 11:49 PM EST RP Head CT 08/08/24 23:58 IMPRESSION: 1. No evidence of acute intracranial hemorrhage or edematous territorial infarction. 2. Mild underlying microangiopathy and generalized cerebral volume loss. Electronically signed by: Benjamin Davis DO 08/09/2024 01:51 AM EST RP Medications Medications Current Medications Acetaminophen (Acetaminophen 325 Mg Tablet) 650 mg PO Q6H PRN PRN Reason: Headache/Pain Mild Scale (1-3) Al Hydroxide/Mg Hydroxide (Magnesium Hydrox/Alum Hydrox 30 Ml Oral.Susp) 30 ml PO Q6H PRN PRN Reason: Heartburn/Nausea Atorvastatin Calcium (Atorvastatin Calcium 40 Mg Tablet) 40 mg PO DAILY [facility] Last Admin: 08/10/24 08:32 Dose: 40 mg Chlorpromazine HCl (Chlorpromazine Hcl 25 Mg Tablet) 25 mg PO TID [facility] Last Admin: 08/10/24 08:32 Dose: 25 mg Empagliflozin (Empagliflozin 25 Mg Tablet) 25 mg PO DAILY [facility] Last Admin: 08/10/24 08:32 Dose: 25 mg Escitalopram Oxalate (Escitalopram Oxalate 20 Mg Tablet) 20 mg PO DAILY [facility] Last Admin: 08/10/24 08:32 Dose: 20 mg Gabapentin (Gabapentin 400 Mg Capsule) 800 mg PO TID [facility] Last Admin: 08/10/24 08:32 Dose: 800 mg Hydroxyzine HCl (Hydroxyzine Hcl 25 Mg Tablet) 25 mg PO Q6H PRN PRN Reason: Anxiety Loperamide HCl (Loperamide Hcl 2 Mg Capsule) 2 mg PO Q6H PRN PRN Reason: Diarrhea Last Admin: 07/01/24 10:23 Dose: 2 mg Lorazepam (Lorazepam 1 Mg Tablet) 2 mg PO TID [facility] Last Admin: 08/10/24 08:32 Dose: 2 mg Magnesium Hydroxide (Milk Of Magnesia 30 Ml Oral.Susp) 30 ml PO DAILY PRN PRN Reason: Constipation Last Admin: 08/03/24 22:13 Dose: 30 ml Metformin HCl (Metformin Hcl 1,000 Mg Tablet) 1,000 mg PO BID [facility] Last Admin: 07/01/24 21:13 Dose: Not Given Metoprolol Succinate (Metoprolol Succinate Er 25 Mg Tab.Er.24h) 25 mg PO DAILY [facility]; Protocol Last Admin: 08/10/24 08:32 Dose: 25 mg Mirtazapine (Mirtazapine 15 Mg Tablet) 45 mg PO BEDTIME [facility] Last Admin: 08/09/24 21:13 Dose: 45 mg Olanzapine (Olanzapine Odt 10 Mg Tab.Rapdis) 5 mg TRANSLINGU Q4H PRN PRN Reason: anxiety/agitation Last Admin: 07/13/24 12:13 Dose: 5 mg Olanzapine (Olanzapine Odt 10 Mg Tab.Rapdis) 10 mg TRANSLINGU BID [facility] Last Admin: 08/10/24 08:32 Dose: 10 mg Allergies Allergies Allergy/AdvReac Type Severity Reaction Status Date / Time haloperidol [From Haldol] Allergy Intermediate Agitated Verified 06/28/24 17:33 lithium Allergy Intermediate Agitated Verified 06/28/24 17:33 oxcarbazepine Allergy Unknown RASH Verified 06/28/24 17:33 [From TRILEPTAL] fluphenazine [From Prolixin] Allergy akathisia Verified 06/28/24 17:33 Assessment & Plan Assessment & Plan (1) Schizoaffective disorder: Status: Acute Code(s): F25.9 - Schizoaffective disorder, unspecified Plan 06/29: restart/continue discharge meds from most recent hospitalization. change to ODT what can be changed to ODT in the hopes that stomach complaint is driven by psychosis and will resolve with adequate neuroleptic and anxiolytic Tx. 06/30: apparently catatonic this morning. per RN, pt has not taken any medications since admission. will add ativan 2 mg TID, staffing and scheduling coordinator to strongly and repeatedly encourage pt to take medication. apparently, this approach worked during most recent admission on M3 with similar presentation. 07/01: Started being compliant. More responsive. Will hold Glucophage due to diarrhea. Imodium. Continue other medications. 07/02: Increase Clozaril to 50 mg HS. DC ODT Clonazepam now that he can swallow OK. Lower Ativan to 1 mg TID. 07/03: Continue current plan. On 07/04 increase Clozaril to 100 mg. 07/05: Pt did agree to labs. If he refuses meds this evening will file Section Seven for consideration. 07/07: Lactulose 30 cc x 1 for pt report of constipation. Continue regime Support, offer encouragement with current stressor, encourage communication with team. 07/08: Continue current regimen and plans for stabilization and medication management 07/09: Continue current regimen and plans for stabilization and medication management 07/11: Increase Clozaril to 50 mg HS from 25 mg HS Decrease Lorazepam to 1.5 mg tid from [address] 07/13. Pt not wanting to talk of this today with tw. 07/13: Olanzapine 10 mg po bid 07/14/24: Decrease Lorazepam to 1 mg tid Intake/Output 07/15/24 patient uncooperative, disorganized and labile behavior- refusing medications- had unit on lock down today- while nursing attempted to help patient stop screaming and throwing things in his room- 07/16 ? agitated catatonia- likely to need urgent ECT- if medically stable for it- and if court can be arranged soon enough- in any case will need medication soon- 07/17- ECT consult Increase Ativan to 2 mg tid Chlorpromazine 25 mg tid 07/18- Recompensated this afternoon, interactive, discussed his concerns about his developmental milestones. Waxing, Waning catatonia? 07/19- Continue tx 11/28: Continue current management and treatment plan. Remains isolated, with waxing and waning symptoms. Med compliant with modest effect. 07/21: Increase Chlorpromazine to 50 mg tid 07/24: Decrease Chlorpromazine to 25 mg tid Increase Lexapro to 10 mg daily 07/25 patient refuses to engage; catatonic like symptoms 07/28 improved today. Continue current plan/regime Antidepressant increased 07/24- observe for induced joe. 07/29 increased Lexapro to 20 mg; will continue to observe for manic symptoms 07/30 Patient remains doing much better, friendly, in the milieu, eating and appropriate with peers and staff, even attending groups and showered. -will DC I/O nos; patient eating and drinking well. 08/02 Continue regime Discharge planning. 08/03 Begin Lorazepam tapering. Decrease from 2 mg tid to 2 mg bid and 1 mg at 1300. 08/04 Continue current plan. 08/06/2024: No changes 08/07/24 On 08/08 decrease Lorazepam to 2 mg bid 08/09- On 08/08 evening pt experienced a relapse of catatonia as we were continuing Lorazepam tapering from 5 mg daily to 4 mg daily. He is re-established at 6 mg daily at this time, after receiving 6 mg extra on 08/08 by cardiology consultants and hospitalist team. Discharge is cancelled. We will continue to monitor. 08/10- continue current regime and plan of care Reason for continued inpatient stay Substantial Risk for: rapid decompensation Time Spent With Patient Time: Total time managing care of this patient today ____ minutes.
[2024-08-10 20:00] VITALS: BP 117/69; PULSE 91; TEMP 36.6; O2SAT 98
[2024-08-10] MEDS: Mirtazapine 15 MG TABLET 45 MG PO (22:00)
[2024-08-11 07:56] VITALS: BP 125/61; PULSE 94; RESP 18; TEMP 36.4; O2SAT 97
[2024-08-11] MEDS: Metoprolol Succinate ER 25 MG TAB.ER.24H PO (08:44)
[2024-08-11] MEDS: OLANZapine ODT 10 MG TAB.RAPDIS TRANSLINGU ×2 (08:44→20:11)
[2024-08-11] MEDS: Escitalopram Oxalate 20 MG TABLET PO (08:44)
[2024-08-11] MEDS: chlorproMAZINE HCl 25 MG TABLET PO ×3 (08:44→20:11)
[2024-08-11] MEDS: Atorvastatin Calcium 40 MG TABLET PO (08:44)
[2024-08-11] MEDS: Empagliflozin 25 MG TABLET PO (08:44)
[2024-08-11] MEDS: LORazepam 1 MG TABLET 2 MG PO ×3 (08:44→20:12)
[2024-08-11] MEDS: Gabapentin 400 MG CAPSULE 800 MG PO ×3 (08:44→20:11)
--- NOTE | 2024-08-11 10:28 | P.PNPSI_ITS ---
Subjective Subjective Date of Service: 08/11/24 Reason For Visit: psychosis Subjective Notes: Section 7 Healthcare Proxy: No Guardianship: No Medical Problems Affecting Mental Status: No Interim History: I think 7.1 and 7.1 today for depression, anxiety. Clear, engaged, allowed a brief meeting. Reports a decrease in sleep, 2-3 hours he reports. Team reports 8 hours sleep. Denies SI/HI. Acknowledges depressive sx. Medication Compliance: Yes Side effects from medications: No Attending Groups: Yes Review of Systems Acute medical concerns: No Medical Review of Systems: unchanged Review of Systems Review of Systems Yes all other systems are reviewed and are negative Mental Status Exam Mental Status Exam Patient Appearance: Fatigued Patient Orientation: Person, Place, Time and Situation Level of Consciousness: Alert Patient Behavior: Talkative and Good Eye Contact Mood Description: Withdrawn and Depressed Affect Description: Flat Patient Cognition Impaired: No Ability to Follow Directions: Good Speech Pattern: Spontaneous Speech and Soft-Spoken Memory Description: Episodic Impaired Hallucinations: None Delusions: Not Present Thought Process: Rumination Thought Content: positive for Perseveration Depressive Symptoms: Sleeping More Than Usual, Increased Fatigue and Loss of Energy Judgement: Fair Diagnostics Vital Signs (24Hr): Vital Signs - 24 hr 08/10/24 20:00 08/11/24 07:56 Temperature 97.9 F 97.5 F Pulse Rate 91 94 Respiratory Rate 18 Blood Pressure 117/69 125/61 Pulse Oximetry 98 97 Oxygen Delivery Method Room Air Room Air BMI result Body Mass Index 23.4 Labs 08/08/24 21:57 08/08/24 21:57 Imaging Radiology Impressions: ITS Impressions Chest X-Ray 06/28/24 20:45 IMPRESSION: *Low lung volumes; otherwise, no cardiopulmonary abnormalities identified. *Moderate convex rightward scoliosis of the thoracic spine. Electronically signed by: Ran Castaneda MD 06/29/2024 12:03 AM EST RP Head CT 06/28/24 20:53 IMPRESSION: 1. No acute intracranial pathology. 2. Mild cerebral volume loss and mild chronic microangiopathy. Electronically signed by: Brandon Smith MD 06/28/2024 11:49 PM EST RP Head CT 08/08/24 23:58 IMPRESSION: 1. No evidence of acute intracranial hemorrhage or edematous territorial infarction. 2. Mild underlying microangiopathy and generalized cerebral volume loss. Electronically signed by: Benjamin Davis DO 08/09/2024 01:51 AM [facility] Medications Medications Current Medications Acetaminophen (Acetaminophen 325 Mg Tablet) 650 mg PO Q6H PRN PRN Reason: Headache/Pain Mild Scale (1-3) Al Hydroxide/Mg Hydroxide (Magnesium Hydrox/Alum Hydrox 30 Ml Oral.Susp) 30 ml PO Q6H PRN PRN Reason: Heartburn/Nausea Atorvastatin Calcium (Atorvastatin Calcium 40 Mg Tablet) 40 mg PO DAILY [facility] Last Admin: 08/11/24 08:44 Dose: 40 mg Chlorpromazine HCl (Chlorpromazine Hcl 25 Mg Tablet) 25 mg PO TID [facility] Last Admin: 08/11/24 08:44 Dose: 25 mg Empagliflozin (Empagliflozin 25 Mg Tablet) 25 mg PO DAILY [facility] Last Admin: 08/11/24 08:44 Dose: 25 mg Escitalopram Oxalate (Escitalopram Oxalate 20 Mg Tablet) 20 mg PO DAILY [facility] Last Admin: 08/11/24 08:44 Dose: 20 mg Gabapentin (Gabapentin 400 Mg Capsule) 800 mg PO TID [facility] Last Admin: 08/11/24 08:44 Dose: 800 mg Hydroxyzine HCl (Hydroxyzine Hcl 25 Mg Tablet) 25 mg PO Q6H PRN PRN Reason: Anxiety Loperamide HCl (Loperamide Hcl 2 Mg Capsule) 2 mg PO Q6H PRN PRN Reason: Diarrhea Last Admin: 07/01/24 10:23 Dose: 2 mg Lorazepam (Lorazepam 1 Mg Tablet) 2 mg PO TID [facility] Last Admin: 08/11/24 08:44 Dose: 2 mg Magnesium Hydroxide (Milk Of Magnesia 30 Ml Oral.Susp) 30 ml PO DAILY PRN PRN Reason: Constipation Last Admin: 08/03/24 22:13 Dose: 30 ml Metformin HCl (Metformin Hcl 1,000 Mg Tablet) 1,000 mg PO BID [facility] Last Admin: 07/01/24 21:13 Dose: Not Given Metoprolol Succinate (Metoprolol Succinate Er 25 Mg Tab.Er.24h) 25 mg PO DAILY [facility]; Protocol Last Admin: 08/11/24 08:44 Dose: 25 mg Mirtazapine (Mirtazapine 15 Mg Tablet) 45 mg PO BEDTIME [facility] Last Admin: 08/10/24 22:00 Dose: 45 mg Olanzapine (Olanzapine Odt 10 Mg Tab.Rapdis) 5 mg TRANSLINGU Q4H PRN PRN Reason: anxiety/agitation Last Admin: 07/13/24 12:13 Dose: 5 mg Olanzapine (Olanzapine Odt 10 Mg Tab.Rapdis) 10 mg TRANSLINGU BID [facility] Last Admin: 08/11/24 08:44 Dose: 10 mg Allergies Allergies Allergy/AdvReac Type Severity Reaction Status Date / Time haloperidol [From Haldol] Allergy Intermediate Agitated Verified 06/28/24 17:33 lithium Allergy Intermediate Agitated Verified 06/28/24 17:33 oxcarbazepine Allergy Unknown RASH Verified 06/28/24 17:33 [From TRILEPTAL] fluphenazine [From Prolixin] Allergy akathisia Verified 06/28/24 17:33 Assessment & Plan Assessment & Plan (1) Schizoaffective disorder: Status: Acute Code(s): F25.9 - Schizoaffective disorder, unspecified Plan 06/29: restart/continue discharge meds from most recent hospitalization. change to ODT what can be changed to ODT in the hopes that stomach complaint is driven by psychosis and will resolve with adequate neuroleptic and anxiolytic Tx. 06/30: apparently catatonic this morning. per RN, pt has not taken any medications since admission. will add ativan 2 mg TID, staffing director to strongly and repeatedly encourage pt to take medication. apparently, this approach worked during most recent admission on M3 with similar presentation. 07/01: Started being compliant. More responsive. Will hold Glucophage due to diarrhea. Imodium. Continue other medications. 07/02: Increase Clozaril to 50 mg HS. DC ODT Clonazepam now that he can swallow OK. Lower Ativan to 1 mg TID. 07/03: Continue current plan. On 07/04 increase Clozaril to 100 mg. 07/05: Pt did agree to labs. If he refuses meds this evening will file [facility] Seven for consideration. 07/07: Lactulose 30 cc x 1 for pt report of constipation. Continue regime Support, offer encouragement with current stressor, encourage communication with team. 07/08: Continue current regimen and plans for stabilization and medication management 07/09: Continue current regimen and plans for stabilization and medication management 07/11: Increase Clozaril to 50 mg HS from 25 mg HS Decrease Lorazepam to 1.5 mg tid from [address] 07/13. Pt not wanting to talk of this today with tw. 07/13: Olanzapine 10 mg po bid 07/14/24: Decrease Lorazepam to 1 mg tid Intake/Output 07/15/24 patient uncooperative, disorganized and labile behavior- refusing medications- had unit on lock down today- while nursing attempted to help patient stop screaming and throwing things in his room- 07/16 ? agitated catatonia- likely to need urgent ECT- if medically stable for it- and if court can be arranged soon enough- in any case will need medication soon- 07/17- ECT consult Increase Ativan to 2 mg tid Chlorpromazine 25 mg tid 07/18- Recompensated this afternoon, interactive, discussed his concerns about his developmental milestones. Waxing, Waning catatonia? 07/19- Continue tx 07/20: Continue current management and treatment plan. Remains isolated, with waxing and waning symptoms. Med compliant with modest effect. 07/21: Increase Chlorpromazine to 50 mg tid 07/24: Decrease Chlorpromazine to 25 mg tid Increase Lexapro to 10 mg daily 07/25 patient refuses to engage; catatonic like symptoms 07/28 improved today. Continue current plan/regime Antidepressant increased 07/24- observe for induced joe. 07/29 increased Lexapro to 20 mg; will continue to observe for manic symptoms 07/30 Patient remains doing much better, friendly, in the milieu, eating and appropriate with peers and staff, even attending groups and showered. -will DC I/O nos; patient eating and drinking well. 08/02 Continue regime Discharge planning. 08/03 Begin Lorazepam tapering. Decrease from 2 mg tid to 2 mg bid and 1 mg at 1300. 08/04 Continue current plan. 08/06/2024: No changes 08/07/24 On 08/08 decrease Lorazepam to 2 mg bid 08/09- On 08/08 evening pt experienced a relapse of catatonia as we were continuing Lorazepam tapering from 5 mg daily to 4 mg daily. He is re- established at 6 mg daily at this time, after receiving 6 mg extra on 08/08 by guest relations manager and hospitalist team. Discharge is cancelled. We will continue to monitor. 08/10- continue current regime and plan of care 08/11- continue current regime and plan of care Reason for continued inpatient stay Substantial Risk for: rapid decompensation Time Spent With Patient Time: Total time managing care of this patient today ____ minutes.
[2024-08-11 20:00] VITALS: BP 113/55; PULSE 100; TEMP 36.7; O2SAT 95
[2024-08-11] MEDS: Mirtazapine 15 MG TABLET 45 MG PO (20:11)
[2024-08-12 08:50] VITALS: BP 120/65; PULSE 94; RESP 16; TEMP 36.9; O2SAT 96
[2024-08-12] MEDS: Gabapentin 400 MG CAPSULE 800 MG PO ×3 (09:30→20:45)
[2024-08-12] MEDS: Atorvastatin Calcium 40 MG TABLET PO (09:31)
[2024-08-12] MEDS: chlorproMAZINE HCl 25 MG TABLET PO ×3 (09:31→20:46)
[2024-08-12] MEDS: Escitalopram Oxalate 20 MG TABLET PO (09:31)
[2024-08-12] MEDS: Metoprolol Succinate ER 25 MG TAB.ER.24H PO (09:31)
[2024-08-12] MEDS: Empagliflozin 25 MG TABLET PO (09:31)
[2024-08-12] MEDS: LORazepam 1 MG TABLET 2 MG PO ×3 (09:31→20:45)
[2024-08-12] MEDS: OLANZapine ODT 10 MG TAB.RAPDIS TRANSLINGU ×2 (09:31→20:45)
--- NOTE | 2024-08-12 10:58 | P.PNPSI_ITS ---
Subjective Subjective Date of Service: 08/12/24 Reason For Visit: psychosis Subjective Notes: Section 7 Interim History: Patient was seen and discussed in rounds today. Records and plans were reviewed. Staff report that he is showing some signs of improvement. Still endorses depression and anxiety. Mostly isolative. Questionable eating. He has been taking some medications. No complaints. No changes were made today Review of Systems Review of Systems Yes all other systems are reviewed and are negative Mental Status Exam Mental Status Exam Narrative: In today's visit he is alert, pleasant and minimally interactive. Soft-spoken speech. Little eye contact. No acute signs of psychosis observable. No overt delusions. No SI. Judgment is marginal. Diagnostics Vital Signs (24Hr): Vital Signs - 24 hr 08/11/24 20:00 08/12/24 08:50 Temperature 98.0 F 98.4 F Pulse Rate 100 94 Respiratory Rate 16 Blood Pressure 113/55 L 120/65 Pulse Oximetry 95 96 Oxygen Delivery Method Room Air Room Air BMI result Body Mass Index 23.4 Labs 08/08/24 21:57 08/08/24 21:57 Imaging Radiology Impressions: ITS Impressions Chest X-Ray 06/28/24 20:45 IMPRESSION: *Low lung volumes; otherwise, no cardiopulmonary abnormalities identified. *Moderate convex rightward scoliosis of the thoracic spine. Electronically signed by: Ran Castaneda MD 06/29/2024 12:03 AM EST RP Head CT 06/28/24 20:53 IMPRESSION: 1. No acute intracranial pathology. 2. Mild cerebral volume loss and mild chronic microangiopathy. Electronically signed by: Brandon Smith MD 06/28/2024 11:49 PM EST RP Head CT 08/08/24 23:58 IMPRESSION: 1. No evidence of acute intracranial hemorrhage or edematous territorial infarction. 2. Mild underlying microangiopathy and generalized cerebral volume loss. Electronically signed by: Benjamin Davis DO 08/09/2024 01:51 AM EST RP Medications Medications Current Medications Acetaminophen (Acetaminophen 325 Mg Tablet) 650 mg PO Q6H PRN PRN Reason: Headache/Pain Mild Scale (1-3) Al Hydroxide/Mg Hydroxide (Magnesium Hydrox/Alum Hydrox 30 Ml Oral.Susp) 30 ml PO Q6H PRN PRN Reason: Heartburn/Nausea Atorvastatin Calcium (Atorvastatin Calcium 40 Mg Tablet) 40 mg PO DAILY [facility] Last Admin: 08/12/24 09:31 Dose: 40 mg Chlorpromazine HCl (Chlorpromazine Hcl 25 Mg Tablet) 25 mg PO TID [facility] Last Admin: 08/12/24 09:31 Dose: 25 mg Empagliflozin (Empagliflozin 25 Mg Tablet) 25 mg PO DAILY [facility] Last Admin: 08/12/24 09:31 Dose: 25 mg Escitalopram Oxalate (Escitalopram Oxalate 20 Mg Tablet) 20 mg PO DAILY [facility] Last Admin: 08/12/24 09:31 Dose: 20 mg Gabapentin (Gabapentin 400 Mg Capsule) 800 mg PO TID [facility] Last Admin: 08/12/24 09:30 Dose: 800 mg Hydroxyzine HCl (Hydroxyzine Hcl 25 Mg Tablet) 25 mg PO Q6H PRN PRN Reason: Anxiety Loperamide HCl (Loperamide Hcl 2 Mg Capsule) 2 mg PO Q6H PRN PRN Reason: Diarrhea Last Admin: 07/01/24 10:23 Dose: 2 mg Lorazepam (Lorazepam 1 Mg Tablet) 2 mg PO TID [facility] Last Admin: 08/12/24 09:31 Dose: 2 mg Magnesium Hydroxide (Milk Of Magnesia 30 Ml Oral.Susp) 30 ml PO DAILY PRN PRN Reason: Constipation Last Admin: 08/03/24 22:13 Dose: 30 ml Metformin HCl (Metformin Hcl 1,000 Mg Tablet) 1,000 mg PO BID [facility] Last Admin: 07/01/24 21:13 Dose: Not Given Metoprolol Succinate (Metoprolol Succinate Er 25 Mg Tab.Er.24h) 25 mg PO DAILY [facility]; Protocol Last Admin: 08/12/24 09:31 Dose: 25 mg Mirtazapine (Mirtazapine 15 Mg Tablet) 45 mg PO BEDTIME [facility] Last Admin: 08/11/24 20:11 Dose: 45 mg Olanzapine (Olanzapine Odt 10 Mg Tab.Rapdis) 5 mg TRANSLINGU Q4H PRN PRN Reason: anxiety/agitation Last Admin: 07/13/24 12:13 Dose: 5 mg Olanzapine (Olanzapine Odt 10 Mg Tab.Rapdis) 10 mg TRANSLINGU BID [facility] Last Admin: 08/12/24 09:31 Dose: 10 mg Allergies Allergies Allergy/AdvReac Type Severity Reaction Status Date / Time haloperidol [From Haldol] Allergy Intermediate Agitated Verified 06/28/24 17:33 lithium Allergy Intermediate Agitated Verified 06/28/24 17:33 oxcarbazepine Allergy Unknown RASH Verified 06/28/24 17:33 [From TRILEPTAL] fluphenazine [From Prolixin] Allergy akathisia Verified 06/28/24 17:33 Assessment & Plan Assessment & Plan (1) Schizoaffective disorder: Status: Acute Code(s): F25.9 - Schizoaffective disorder, unspecified Plan 06/29: restart/continue discharge meds from most recent hospitalization. change to ODT what can be changed to ODT in the hopes that stomach complaint is driven by psychosis and will resolve with adequate neuroleptic and anxiolytic Tx. 06/30: apparently catatonic this morning. per RN, pt has not taken any medications since admission. will add ativan 2 mg TID, staff physical therapist to strongly and repeatedly encourage pt to take medication. apparently, this approach worked during most recent admission on M3 with similar presentation. 07/01: Started being compliant. More responsive. Will hold Glucophage due to diarrhea. Imodium. Continue other medications. 07/02: Increase Clozaril to 50 mg HS. DC ODT Clonazepam now that he can swallow OK. Lower Ativan to 1 mg TID. 07/03: Continue current plan. On 07/04 increase Clozaril to 100 mg. 07/05: Pt did agree to labs. If he refuses meds this evening will file Section Seven for consideration. 07/07: Lactulose 30 cc x 1 for pt report of constipation. Continue regime Support, offer encouragement with current stressor, encourage communication with team. 07/08: Continue current regimen and plans for stabilization and medication management 07/09: Continue current regimen and plans for stabilization and medication management 07/11: Increase Clozaril to 50 mg HS from 25 mg HS Decrease Lorazepam to 1.5 mg tid from [address] 07/13. Pt not wanting to talk of this today with tw. 07/13: Olanzapine 10 mg po bid 07/14/24: Decrease Lorazepam to 1 mg tid Intake/Output 07/15/24 patient uncooperative, disorganized and labile behavior- refusing medications- had unit on lock down today- while nursing attempted to help patient stop screaming and throwing things in his room- 07/16 ? agitated catatonia- likely to need urgent ECT- if medically stable for it- and if court can be arranged soon enough- in any case will need medication soon- 07/17- ECT consult Increase Ativan to 2 mg tid Chlorpromazine 25 mg tid 07/18- Recompensated this afternoon, interactive, discussed his concerns about his developmental milestones. Waxing, Waning catatonia? 07/19- Continue tx 07/20: Continue current management and treatment plan. Remains isolated, with waxing and waning symptoms. Med compliant with modest effect. 07/21: Increase Chlorpromazine to 50 mg tid 07/24: Decrease Chlorpromazine to 25 mg tid Increase Lexapro to 10 mg daily 07/25 patient refuses to engage; catatonic like symptoms 07/28 improved today. Continue current plan/regime Antidepressant increased 07/24- observe for induced joe. 07/29 increased Lexapro to 20 mg; will continue to observe for manic symptoms 07/30 Patient remains doing much better, friendly, in the milieu, eating and appropriate with peers and staff, even attending groups and showered. -will DC I/O nos; patient eating and drinking well. 08/02 Continue regime Discharge planning. 08/03 Begin Lorazepam tapering. Decrease from 2 mg tid to 2 mg bid and 1 mg at 1300. 08/04 Continue current plan. 08/06/2024: No changes 08/07/24 On 08/08 decrease Lorazepam to 2 mg bid 08/09- On 08/08 evening pt experienced a relapse of catatonia as we were continuing Lorazepam tapering from 5 mg daily to 4 mg daily. He is re- established at 6 mg daily at this time, after receiving 6 mg extra on 08/08 by flooring salesperson and hospitalist team. Discharge is cancelled. We will continue to monitor. 08/10- continue current regime and plan of care 08/11- continue current regime and plan of care 08/12:Continue current regimen and plans. Reason for continued inpatient stay Substantial Risk for: med/psych decompensation Time Spent With Patient Time: Total time managing care of this patient today ____ minutes.
--- NOTE | 2024-08-12 11:02 | HO.PSYCHPN ---
Subjective Subjective Date of Service: 08/12/24 Reason For Visit: psychosis Diagnostics Vital Signs (24Hr): Vital Signs - 24 hr 08/11/24 20:00 08/12/24 08:50 Temperature 98.0 F 98.4 F Pulse Rate 100 94 Respiratory Rate 16 Blood Pressure 113/55 L 120/65 Pulse Oximetry 95 96 Oxygen Delivery Method Room Air Room Air BMI result Body Mass Index 23.4 Labs 08/08/24 21:57 08/08/24 21:57 Imaging Radiology Impressions: ITS Impressions Chest X-Ray 06/28/24 20:45 IMPRESSION: *Low lung volumes; otherwise, no cardiopulmonary abnormalities identified. *Moderate convex rightward scoliosis of the thoracic spine. Electronically signed by: Ran Castaneda MD 06/29/2024 12:03 AM EST RP Head CT 06/28/24 20:53 IMPRESSION: 1. No acute intracranial pathology. 2. Mild cerebral volume loss and mild chronic microangiopathy. Electronically signed by: Brandon Smith MD 06/28/2024 11:49 PM EST RP Head CT 08/08/24 23:58 IMPRESSION: 1. No evidence of acute intracranial hemorrhage or edematous territorial infarction. 2. Mild underlying microangiopathy and generalized cerebral volume loss. Electronically signed by: Benjamin Davis DO 08/09/2024 01:51 AM EST RP Medications Medications Current Medications Acetaminophen (Acetaminophen 325 Mg Tablet) 650 mg PO Q6H PRN PRN Reason: Headache/Pain Mild Scale (1-3) Al Hydroxide/Mg Hydroxide (Magnesium Hydrox/Alum Hydrox 30 Ml Oral.Susp) 30 ml PO Q6H PRN PRN Reason: Heartburn/Nausea Atorvastatin Calcium (Atorvastatin Calcium 40 Mg Tablet) 40 mg PO DAILY [facility] Last Admin: 08/12/24 09:31 Dose: 40 mg Chlorpromazine HCl (Chlorpromazine Hcl 25 Mg Tablet) 25 mg PO TID [facility] Last Admin: 08/12/24 09:31 Dose: 25 mg Empagliflozin (Empagliflozin 25 Mg Tablet) 25 mg PO DAILY [facility] Last Admin: 08/12/24 09:31 Dose: 25 mg Escitalopram Oxalate (Escitalopram Oxalate 20 Mg Tablet) 20 mg PO DAILY [facility] Last Admin: 08/12/24 09:31 Dose: 20 mg Gabapentin (Gabapentin 400 Mg Capsule) 800 mg PO TID [facility] Last Admin: 08/12/24 09:30 Dose: 800 mg Hydroxyzine HCl (Hydroxyzine Hcl 25 Mg Tablet) 25 mg PO Q6H PRN PRN Reason: Anxiety Loperamide HCl (Loperamide Hcl 2 Mg Capsule) 2 mg PO Q6H PRN PRN Reason: Diarrhea Last Admin: 07/01/24 10:23 Dose: 2 mg Lorazepam (Lorazepam 1 Mg Tablet) 2 mg PO TID [facility] Last Admin: 08/12/24 09:31 Dose: 2 mg Magnesium Hydroxide (Milk Of Magnesia 30 Ml Oral.Susp) 30 ml PO DAILY PRN PRN Reason: Constipation Last Admin: 08/03/24 22:13 Dose: 30 ml Metformin HCl (Metformin Hcl 1,000 Mg Tablet) 1,000 mg PO BID [facility] Last Admin: 07/01/24 21:13 Dose: Not Given Metoprolol Succinate (Metoprolol Succinate Er 25 Mg Tab.Er.24h) 25 mg PO DAILY [facility]; Protocol Last Admin: 08/12/24 09:31 Dose: 25 mg Mirtazapine (Mirtazapine 15 Mg Tablet) 45 mg PO BEDTIME [facility] Last Admin: 08/11/24 20:11 Dose: 45 mg Olanzapine (Olanzapine Odt 10 Mg Tab.Rapdis) 5 mg TRANSLINGU Q4H PRN PRN Reason: anxiety/agitation Last Admin: 07/13/24 12:13 Dose: 5 mg Olanzapine (Olanzapine Odt 10 Mg Tab.Rapdis) 10 mg TRANSLINGU BID [facility] Last Admin: 08/12/24 09:31 Dose: 10 mg Allergies Allergies Allergy/AdvReac Type Severity Reaction Status Date / Time haloperidol [From Haldol] Allergy Intermediate Agitated Verified 06/28/24 17:33 lithium Allergy Intermediate Agitated Verified 06/28/24 17:33 oxcarbazepine Allergy Unknown RASH Verified 06/28/24 17:33 [From TRILEPTAL] fluphenazine [From Prolixin] Allergy akathisia Verified 06/28/24 17:33 Assessment & Plan Assessment & Plan (1) Schizoaffective disorder: Status: Acute Code(s): F25.9 - Schizoaffective disorder, unspecified Plan 06/29: restart/continue discharge meds from most recent hospitalization. change to ODT what can be changed to ODT in the hopes that stomach complaint is driven by psychosis and will resolve with adequate neuroleptic and anxiolytic Tx. 06/30: apparently catatonic this morning. per RN, pt has not taken any medications since admission. will add ativan 2 mg TID, staffing recruiter to strongly and repeatedly encourage pt to take medication. apparently, this approach worked during most recent admission on M3 with similar presentation. 07/01: Started being compliant. More responsive. Will hold Glucophage due to diarrhea. Imodium. Continue other medications. 07/02: Increase Clozaril to 50 mg HS. DC ODT Clonazepam now that he can swallow OK. Lower Ativan to 1 mg TID. 07/03: Continue current plan. On 07/04 increase Clozaril to 100 mg. 07/05: Pt did agree to labs. If he refuses meds this evening will file Section Seven for consideration. 07/07: Lactulose 30 cc x 1 for pt report of constipation. Continue regime Support, offer encouragement with current stressor, encourage communication with team. 07/08: Continue current regimen and plans for stabilization and medication management 07/09: Continue current regimen and plans for stabilization and medication management 07/11: Increase Clozaril to 50 mg HS from 25 mg HS Decrease Lorazepam to 1.5 mg tid from [address] 07/13. Pt not wanting to talk of this today with tw. 07/13: Olanzapine 10 mg po bid 07/14/24: Decrease Lorazepam to 1 mg tid Intake/Output 07/15/24 patient uncooperative, disorganized and labile behavior- refusing medications- had unit on lock down today- while nursing attempted to help patient stop screaming and throwing things in his room- 07/16 ? agitated catatonia- likely to need urgent ECT- if medically stable for it- and if court can be arranged soon enough- in any case will need medication soon- 07/17- ECT consult Increase Ativan to 2 mg tid Chlorpromazine 25 mg tid 07/18- Recompensated this afternoon, interactive, discussed his concerns about his developmental milestones. Waxing, Waning catatonia? 07/19- Continue tx 07/20: Continue current management and treatment plan. Remains isolated, with waxing and waning symptoms. Med compliant with modest effect. 07/21: Increase Chlorpromazine to 50 mg tid 07/24: Decrease Chlorpromazine to 25 mg tid Increase Lexapro to 10 mg daily 07/25 patient refuses to engage; catatonic like symptoms 07/28 improved today. Continue current plan/regime Antidepressant increased 07/24- observe for induced joe. 07/29 increased Lexapro to 20 mg; will continue to observe for manic symptoms 07/30 Patient remains doing much better, friendly, in the milieu, eating and appropriate with peers and staff, even attending groups and showered. -will DC I/O nos; patient eating and drinking well. 08/02 Continue regime Discharge planning. 08/03 Begin Lorazepam tapering. Decrease from 2 mg tid to 2 mg bid and 1 mg at 1300. 08/04 Continue current plan. 08/06/2024: No changes 08/07/24 On 08/08 decrease Lorazepam to 2 mg bid 08/09- On 08/08 evening pt experienced a relapse of catatonia as we were continuing Lorazepam tapering from 5 mg daily to 4 mg daily. He is re-established at 6 mg daily at this time, after receiving 6 mg extra on 08/08 by hr receptionist and hospitalist team. Discharge is cancelled. We will continue to monitor. 08/10- continue current regime and plan of care 08/11- continue current regime and plan of care 08/12:Continue current regimen and plans. Time Spent With Patient Time: Total time managing care of this patient today ____ minutes.
[2024-08-12 20:00] VITALS: BP 103/69; PULSE 83; TEMP 36.9; O2SAT 97
[2024-08-12] MEDS: Mirtazapine 15 MG TABLET 45 MG PO (20:45)
[2024-08-13 08:50] VITALS: BP 145/82; PULSE 89; RESP 16; TEMP 36.6; O2SAT 98
[2024-08-13] MEDS: Gabapentin 400 MG CAPSULE 800 MG PO ×3 (09:00→20:52)
[2024-08-13 09:01] VITALS: BP 145/82; PULSE 89
[2024-08-13] MEDS: Metoprolol Succinate ER 25 MG TAB.ER.24H PO (09:01)
[2024-08-13] MEDS: OLANZapine ODT 10 MG TAB.RAPDIS TRANSLINGU ×2 (09:01→20:52)
[2024-08-13] MEDS: Atorvastatin Calcium 40 MG TABLET PO (09:02)
[2024-08-13] MEDS: chlorproMAZINE HCl 25 MG TABLET PO (09:02)
[2024-08-13] MEDS: Empagliflozin 25 MG TABLET PO (09:02)
[2024-08-13] MEDS: Escitalopram Oxalate 20 MG TABLET PO (09:02)
[2024-08-13] MEDS: LORazepam 1 MG TABLET 2 MG PO ×3 (09:02→20:52)
--- NOTE | 2024-08-13 09:15 | HO.PSYCHPN ---
Subjective Subjective Date of Service: 08/13/24 Reason For Visit: psychosis Subjective Notes: Section 7 Interim History: Patient was seen and discussed in rounds today. Records and plans were reviewed. He states that he is doing better with regards to his depression however he feels more anxious. Current medications were reviewed and we decided on increasing the Thorazine to 50 mg b.i.d. from 25 mg t.i.d.. He continues to be isolative. No changes were made other than with the Thorazine. Review of Systems Review of Systems Yes all other systems are reviewed and are negative Mental Status Exam Mental Status Exam Narrative: In today's visit he is alert, pleasant and minimally interactive. Soft-spoken speech. Much better eye contact. No acute signs of psychosis observable. No overt delusions. Able to move all limbs. No abnormalities of gait. No SI. Judgment is marginal. Diagnostics Vital Signs (24Hr): Vital Signs - 24 hr 08/12/24 20:00 08/13/24 09:01 Temperature 98.4 F Pulse Rate 83 89 Blood Pressure 103/69 145/82 H Pulse Oximetry 97 Oxygen Delivery Method Room Air BMI result Body Mass Index 23.4 Labs 08/08/24 21:57 08/08/24 21:57 Imaging Radiology Impressions: ITS Impressions Chest X-Ray 06/28/24 20:45 IMPRESSION: *Low lung volumes; otherwise, no cardiopulmonary abnormalities identified. *Moderate convex rightward scoliosis of the thoracic spine. Electronically signed by: Ran Castaneda MD 06/29/2024 12:03 AM EST RP Head CT 06/28/24 20:53 IMPRESSION: 1. No acute intracranial pathology. 2. Mild cerebral volume loss and mild chronic microangiopathy. Electronically signed by: Brandon Smith MD 06/28/2024 11:49 PM EST RP Head CT 08/08/24 23:58 IMPRESSION: 1. No evidence of acute intracranial hemorrhage or edematous territorial infarction. 2. Mild underlying microangiopathy and generalized cerebral volume loss. Electronically signed by: Benjamin Davis DO 08/09/2024 01:51 AM EST RP Medications Medications Current Medications Acetaminophen (Acetaminophen 325 Mg Tablet) 650 mg PO Q6H PRN PRN Reason: Headache/Pain Mild Scale (1-3) Al Hydroxide/Mg Hydroxide (Magnesium Hydrox/Alum Hydrox 30 Ml Oral.Susp) 30 ml PO Q6H PRN PRN Reason: Heartburn/Nausea Atorvastatin Calcium (Atorvastatin Calcium 40 Mg Tablet) 40 mg PO DAILY [facility] Last Admin: 08/13/24 09:02 Dose: 40 mg Chlorpromazine HCl (Chlorpromazine Hcl 25 Mg Tablet) 25 mg PO TID [facility] Last Admin: 08/13/24 09:02 Dose: 25 mg Empagliflozin (Empagliflozin 25 Mg Tablet) 25 mg PO DAILY [facility] Last Admin: 08/13/24 09:02 Dose: 25 mg Escitalopram Oxalate (Escitalopram Oxalate 20 Mg Tablet) 20 mg PO DAILY [facility] Last Admin: 08/13/24 09:02 Dose: 20 mg Gabapentin (Gabapentin 400 Mg Capsule) 800 mg PO TID [facility] Last Admin: 08/13/24 09:00 Dose: 800 mg Hydroxyzine HCl (Hydroxyzine Hcl 25 Mg Tablet) 25 mg PO Q6H PRN PRN Reason: Anxiety Loperamide HCl (Loperamide Hcl 2 Mg Capsule) 2 mg PO Q6H PRN PRN Reason: Diarrhea Last Admin: 07/01/24 10:23 Dose: 2 mg Lorazepam (Lorazepam 1 Mg Tablet) 2 mg PO TID [facility] Last Admin: 08/13/24 09:02 Dose: 2 mg Magnesium Hydroxide (Milk Of Magnesia 30 Ml Oral.Susp) 30 ml PO DAILY PRN PRN Reason: Constipation Last Admin: 08/03/24 22:13 Dose: 30 ml Metformin HCl (Metformin Hcl 1,000 Mg Tablet) 1,000 mg PO BID [facility] Last Admin: 07/01/24 21:13 Dose: Not Given Metoprolol Succinate (Metoprolol Succinate Er 25 Mg Tab.Er.24h) 25 mg PO DAILY [facility]; Protocol Last Admin: 08/13/24 09:01 Dose: 25 mg Mirtazapine (Mirtazapine 15 Mg Tablet) 45 mg PO BEDTIME [facility] Last Admin: 08/12/24 20:45 Dose: 45 mg Olanzapine (Olanzapine Odt 10 Mg Tab.Rapdis) 5 mg TRANSLINGU Q4H PRN PRN Reason: anxiety/agitation Last Admin: 07/13/24 12:13 Dose: 5 mg Olanzapine (Olanzapine Odt 10 Mg Tab.Rapdis) 10 mg TRANSLINGU BID [facility] Last Admin: 08/13/24 09:01 Dose: 10 mg Allergies Allergies Allergy/AdvReac Type Severity Reaction Status Date / Time haloperidol [From Haldol] Allergy Intermediate Agitated Verified 06/28/24 17:33 lithium Allergy Intermediate Agitated Verified 06/28/24 17:33 oxcarbazepine Allergy Unknown RASH Verified 06/28/24 17:33 [From TRILEPTAL] fluphenazine [From Prolixin] Allergy akathisia Verified 06/28/24 17:33 Assessment & Plan Assessment & Plan (1) Schizoaffective disorder: Status: Acute Code(s): F25.9 - Schizoaffective disorder, unspecified Plan 08/13: Continue current regimen and plans. Increase Thorazine to 50 mg b.i.d. Patient educated on: medication risk/benefits Reason for continued inpatient stay Substantial Risk for: med/psych decompensation Time Spent With Patient Time: Total time managing care of this patient today ____ minutes.
[2024-08-13 19:43] VITALS: BP 124/68; PULSE 86; RESP 16; TEMP 36.7; O2SAT 98
[2024-08-13] MEDS: Mirtazapine 15 MG TABLET 45 MG PO (20:52)
[2024-08-13] MEDS: chlorproMAZINE HCl 25 MG TABLET 50 MG PO (20:52)
[2024-08-14 08:00] VITALS: BP 118/65; PULSE 98; RESP 16; TEMP 36.8; O2SAT 96
[2024-08-14] MEDS: chlorproMAZINE HCl 25 MG TABLET 50 MG PO ×2 (09:21→22:07)
[2024-08-14] MEDS: LORazepam 1 MG TABLET 2 MG PO ×3 (09:21→22:09)
[2024-08-14] MEDS: Metoprolol Succinate ER 25 MG TAB.ER.24H PO (09:21)
[2024-08-14] MEDS: OLANZapine ODT 10 MG TAB.RAPDIS TRANSLINGU ×2 (09:21→22:07)
[2024-08-14] MEDS: Escitalopram Oxalate 20 MG TABLET PO (09:21)
[2024-08-14] MEDS: Empagliflozin 25 MG TABLET PO (09:21)
[2024-08-14] MEDS: Atorvastatin Calcium 40 MG TABLET PO (09:21)
[2024-08-14] MEDS: Gabapentin 400 MG CAPSULE 800 MG PO ×3 (09:21→22:06)
--- NOTE | 2024-08-14 09:56 | P.PNPSI_ITS ---
Subjective Subjective Date of Service: 08/14/24 Reason For Visit: psychosis Subjective Notes: Section 7 Healthcare Proxy: No Guardianship: No Medical Problems Affecting Mental Status: No Interim History: I don't feel ready to leave. Discussed increase in Chlorpromazine and concerns about becoming suicidal when he returns home. Explained that he only has interest in seeing his [employer]ER and room- mate. Has lost interest in his guitar, TV and other activities. Reports he does like to attend appointments outside of the home ( and I never used to because I was impatient). Fears suicidality upon return to home. Rates sx a 4.5 today. Medication Compliance: Yes Side effects from medications: No Attending Groups: Yes Review of Systems Acute medical concerns: No Review of Systems Review of Systems Yes all other systems are reviewed and are negative Mental Status Exam Mental Status Exam Patient Appearance: Fatigued and Disheveled Patient Orientation: Person, Place, Time and Situation Level of Consciousness: Alert Patient Behavior: Appropriate, Talkative, Cooperative and Good Eye Contact Mood Description: Depressed Affect Description: Flat Patient Cognition Impaired: No Ability to Follow Directions: Good Speech Pattern: Spontaneous Speech Memory Description: Episodic Impaired Hallucinations: None Delusions: Present Perceptual Disturbances: Derealization Thought Process: Rumination Thought Content: positive for Perseveration Depressive Symptoms: Thoughts of /Suicide (denies while on the unit.) Judgement: Fair Diagnostics Vital Signs (24Hr): Vital Signs - 24 hr 08/13/24 19:43 08/14/24 08:00 Temperature 98.0 F 98.2 F Pulse Rate 86 98 Respiratory Rate 16 16 Blood Pressure 124/68 118/65 Pulse Oximetry 98 96 Oxygen Delivery Method Room Air Room Air BMI result Body Mass Index 23.4 Labs 08/08/24 21:57 08/08/24 21:57 Imaging Radiology Impressions: ITS Impressions Chest X-Ray 06/28/24 20:45 IMPRESSION: *Low lung volumes; otherwise, no cardiopulmonary abnormalities identified. *Moderate convex rightward scoliosis of the thoracic spine. Electronically signed by: Ran Castaneda MD 06/29/2024 12:03 AM [facility] Head CT 06/28/24 20:53 IMPRESSION: 1. No acute intracranial pathology. 2. Mild cerebral volume loss and mild chronic microangiopathy. Electronically signed by: Brandon Smith MD 06/28/2024 11:49 PM EST RP Head CT 08/08/24 23:58 IMPRESSION: 1. No evidence of acute intracranial hemorrhage or edematous territorial infarction. 2. Mild underlying microangiopathy and generalized cerebral volume loss. Electronically signed by: Benjamin Davis DO 08/09/2024 01:51 AM EST RP Medications Medications Current Medications Acetaminophen (Acetaminophen 325 Mg Tablet) 650 mg PO Q6H PRN PRN Reason: Headache/Pain Mild Scale (1-3) Al Hydroxide/Mg Hydroxide (Magnesium Hydrox/Alum Hydrox 30 Ml Oral.Susp) 30 ml PO Q6H PRN PRN Reason: Heartburn/Nausea Atorvastatin Calcium (Atorvastatin Calcium 40 Mg Tablet) 40 mg PO DAILY [facility] Last Admin: 08/14/24 09:21 Dose: 40 mg Chlorpromazine HCl (Chlorpromazine Hcl 25 Mg Tablet) 50 mg PO BID [facility] Last Admin: 08/14/24 09:21 Dose: 50 mg Empagliflozin (Empagliflozin 25 Mg Tablet) 25 mg PO DAILY [facility] Last Admin: 08/14/24 09:21 Dose: 25 mg Escitalopram Oxalate (Escitalopram Oxalate 20 Mg Tablet) 20 mg PO DAILY [facility] Last Admin: 08/14/24 09:21 Dose: 20 mg Gabapentin (Gabapentin 400 Mg Capsule) 800 mg PO TID [facility] Last Admin: 08/14/24 09:21 Dose: 800 mg Hydroxyzine HCl (Hydroxyzine Hcl 25 Mg Tablet) 25 mg PO Q6H PRN PRN Reason: Anxiety Loperamide HCl (Loperamide Hcl 2 Mg Capsule) 2 mg PO Q6H PRN PRN Reason: Diarrhea Last Admin: 07/01/24 10:23 Dose: 2 mg Lorazepam (Lorazepam 1 Mg Tablet) 2 mg PO TID [facility] Last Admin: 08/14/24 09:21 Dose: 2 mg Magnesium Hydroxide (Milk Of Magnesia 30 Ml Oral.Susp) 30 ml PO DAILY PRN PRN Reason: Constipation Last Admin: 08/03/24 22:13 Dose: 30 ml Metformin HCl (Metformin Hcl 1,000 Mg Tablet) 1,000 mg PO BID [facility] Last Admin: 07/01/24 21:13 Dose: Not Given Metoprolol Succinate (Metoprolol Succinate Er 25 Mg Tab.Er.24h) 25 mg PO DAILY [facility]; Protocol Last Admin: 08/14/24 09:21 Dose: 25 mg Mirtazapine (Mirtazapine 15 Mg Tablet) 45 mg PO BEDTIME [facility] Last Admin: 08/13/24 20:52 Dose: 45 mg Olanzapine (Olanzapine Odt 10 Mg Tab.Rapdis) 5 mg TRANSLINGU Q4H PRN PRN Reason: anxiety/agitation Last Admin: 07/13/24 12:13 Dose: 5 mg Olanzapine (Olanzapine Odt 10 Mg Tab.Rapdis) 10 mg TRANSLINGU BID [facility] Last Admin: 08/14/24 09:21 Dose: 10 mg Allergies Allergies Allergy/AdvReac Type Severity Reaction Status Date / Time haloperidol [From Haldol] Allergy Intermediate Agitated Verified 06/28/24 17:33 lithium Allergy Intermediate Agitated Verified 06/28/24 17:33 oxcarbazepine Allergy Unknown RASH Verified 06/28/24 17:33 [From TRILEPTAL] fluphenazine [From Prolixin] Allergy akathisia Verified 06/28/24 17:33 Assessment & Plan Assessment & Plan (1) Schizoaffective disorder: Status: Acute Code(s): F25.9 - Schizoaffective disorder, unspecified Plan 08/13: Continue current regimen and plans. Increase Thorazine to 50 mg b.i.d. 08/14: Continue current regime and plan of care. Preparing for discharge next week. Reason for continued inpatient stay Substantial Risk for: rapid decompensation Time Spent With Patient Time: Total time managing care of this patient today ____ minutes.
[2024-08-14 20:00] VITALS: BP 111/68; PULSE 81; RESP 95; TEMP 36.4; O2SAT 95
[2024-08-14] MEDS: Mirtazapine 15 MG TABLET 45 MG PO (22:06)
[2024-08-15 08:00] VITALS: BP 101/61; PULSE 105; RESP 18; TEMP 36.4; O2SAT 95
[2024-08-15] MEDS: Escitalopram Oxalate 20 MG TABLET PO (08:42)
[2024-08-15] MEDS: Metoprolol Succinate ER 25 MG TAB.ER.24H PO (08:42)
[2024-08-15] MEDS: Gabapentin 400 MG CAPSULE 800 MG PO ×3 (08:42→21:17)
[2024-08-15] MEDS: chlorproMAZINE HCl 25 MG TABLET 50 MG PO ×2 (08:42→21:16)
[2024-08-15] MEDS: LORazepam 1 MG TABLET 2 MG PO ×3 (08:42→21:16)
[2024-08-15] MEDS: Atorvastatin Calcium 40 MG TABLET PO (08:42)
[2024-08-15] MEDS: Empagliflozin 25 MG TABLET PO (08:42)
[2024-08-15] MEDS: OLANZapine ODT 10 MG TAB.RAPDIS TRANSLINGU ×2 (08:42→21:17)
--- NOTE | 2024-08-15 13:12 | P.PNPSI_ITS ---
Subjective Subjective Date of Service: 08/15/24 Reason For Visit: psychosis Subjective Notes: Section 7 Healthcare Proxy: No Guardianship: No Medical Problems Affecting Mental Status: No Interim History: Discussed concerns about his rep payee not bringing in his keys, coat or sneakers. Discussed preparing for discharge. 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 Medication Compliance: Yes Side effects from medications: No Attending Groups: Yes Review of Systems Acute medical concerns: No Review of Systems Review of Systems Yes all other systems are reviewed and are negative Mental Status Exam Mental Status Exam Patient Appearance: Fatigued and Disheveled Patient Orientation: Person, Place, Time and Situation Level of Consciousness: Alert Patient Behavior: Appropriate, Talkative, Cooperative and Good Eye Contact Mood Description: Depressed Affect Description: Flat Patient Cognition Impaired: No Ability to Follow Directions: Good Speech Pattern: Spontaneous Speech Memory Description: Episodic Impaired Hallucinations: None Delusions: Present Perceptual Disturbances: Derealization Thought Process: Rumination Thought Content: positive for Perseveration Depressive Symptoms: Thoughts of /Suicide (denies while on the unit.) Judgement: Fair Diagnostics Vital Signs (24Hr): Vital Signs - 24 hr 08/14/24 20:00 08/15/24 08:00 Temperature 97.5 F 97.6 F Pulse Rate 81 105 H Respiratory Rate 95 H 18 Blood Pressure 111/68 101/61 Pulse Oximetry 95 95 Oxygen Delivery Method Room Air Room Air BMI result Body Mass Index 23.4 Labs 08/08/24 21:57 08/08/24 21:57 Imaging Radiology Impressions: ITS Impressions Chest X-Ray 06/28/24 20:45 IMPRESSION: *Low lung volumes; otherwise, no cardiopulmonary abnormalities identified. *Moderate convex rightward scoliosis of the thoracic spine. Electronically signed by: Ran Castaneda MD 06/29/2024 12:03 AM EST RP Head CT 06/28/24 20:53 IMPRESSION: 1. No acute intracranial pathology. 2. Mild cerebral volume loss and mild chronic microangiopathy. Electronically signed by: Brandon Smith MD 06/28/2024 11:49 PM EST RP Head CT 08/08/24 23:58 IMPRESSION: 1. No evidence of acute intracranial hemorrhage or edematous territorial infarction. 2. Mild underlying microangiopathy and generalized cerebral volume loss. Electronically signed by: Benjamin Davis DO 08/09/2024 01:51 AM [facility] Medications Medications Current Medications Acetaminophen (Acetaminophen 325 Mg Tablet) 650 mg PO Q6H PRN PRN Reason: Headache/Pain Mild Scale (1-3) Al Hydroxide/Mg Hydroxide (Magnesium Hydrox/Alum Hydrox 30 Ml Oral.Susp) 30 ml PO Q6H PRN PRN Reason: Heartburn/Nausea Atorvastatin Calcium (Atorvastatin Calcium 40 Mg Tablet) 40 mg PO DAILY [facility] Last Admin: 08/15/24 08:42 Dose: 40 mg Chlorpromazine HCl (Chlorpromazine Hcl 25 Mg Tablet) 50 mg PO BID [facility] Last Admin: 08/15/24 08:42 Dose: 50 mg Empagliflozin (Empagliflozin 25 Mg Tablet) 25 mg PO DAILY [facility] Last Admin: 08/15/24 08:42 Dose: 25 mg Escitalopram Oxalate (Escitalopram Oxalate 20 Mg Tablet) 20 mg PO DAILY [facility] Last Admin: 08/15/24 08:42 Dose: 20 mg Gabapentin (Gabapentin 400 Mg Capsule) 800 mg PO TID [facility] Last Admin: 08/15/24 08:42 Dose: 800 mg Hydroxyzine HCl (Hydroxyzine Hcl 25 Mg Tablet) 25 mg PO Q6H PRN PRN Reason: Anxiety Loperamide HCl (Loperamide Hcl 2 Mg Capsule) 2 mg PO Q6H PRN PRN Reason: Diarrhea Last Admin: 07/01/24 10:23 Dose: 2 mg Lorazepam (Lorazepam 1 Mg Tablet) 2 mg PO TID [facility] Last Admin: 08/15/24 08:42 Dose: 2 mg Magnesium Hydroxide (Milk Of Magnesia 30 Ml Oral.Susp) 30 ml PO DAILY PRN PRN Reason: Constipation Last Admin: 08/03/24 22:13 Dose: 30 ml Metformin HCl (Metformin Hcl 1,000 Mg Tablet) 1,000 mg PO BID [facility] Last Admin: 07/01/24 21:13 Dose: Not Given Metoprolol Succinate (Metoprolol Succinate Er 25 Mg Tab.Er.24h) 25 mg PO DAILY [facility]; Protocol Last Admin: 08/15/24 08:42 Dose: 25 mg Mirtazapine (Mirtazapine 15 Mg Tablet) 45 mg PO BEDTIME [facility] Last Admin: 08/14/24 22:06 Dose: 45 mg Olanzapine (Olanzapine Odt 10 Mg Tab.Rapdis) 5 mg TRANSLINGU Q4H PRN PRN Reason: anxiety/agitation Last Admin: 07/13/24 12:13 Dose: 5 mg Olanzapine (Olanzapine Odt 10 Mg Tab.Rapdis) 10 mg TRANSLINGU BID [facility] Last Admin: 08/15/24 08:42 Dose: 10 mg Allergies Allergies Allergy/AdvReac Type Severity Reaction Status Date / Time haloperidol [From Haldol] Allergy Intermediate Agitated Verified 06/28/24 17:33 lithium Allergy Intermediate Agitated Verified 06/28/24 17:33 oxcarbazepine Allergy Unknown RASH Verified 06/28/24 17:33 [From TRILEPTAL] fluphenazine [From Prolixin] Allergy akathisia Verified 06/28/24 17:33 Assessment & Plan Assessment & Plan (1) Schizoaffective disorder: Status: Acute Code(s): F25.9 - Schizoaffective disorder, unspecified Plan 08/13: Continue current regimen and plans. Increase Thorazine to 50 mg b.i.d. 08/15/24: Continue current regime and plan of care. Reason for continued inpatient stay Substantial Risk for: rapid decompensation Time Spent With Patient Time: Total time managing care of this patient today ____ minutes.
[2024-08-15 20:00] VITALS: BP 110/57; PULSE 82; RESP 18; TEMP 36.3; O2SAT 98
[2024-08-15] MEDS: Mirtazapine 15 MG TABLET 45 MG PO (21:17)
[2024-08-16 07:41] LABS: Neut%MD 55.6 %; Neutrophils Absolute Auto 3.5 x10*3/uL (2.0-8.3); WBCANC 6.3 X10*3/uL
[2024-08-16 07:56] LABS: Creatinine Clr Calc Pharmacy 100.1; Estimated Glomerular Filt Rate > 60
--- NOTE | 2024-08-16 08:55 | P.PNPSI_ITS ---
Subjective Subjective Date of Service: 08/16/24 Reason For Visit: psychosis Subjective Notes: Section 7 Healthcare Proxy: No Guardianship: No Medical Problems Affecting Mental Status: No Interim History: Visable in the milieu. Denies SI/HI/AH/VH Reports sleep and appetite are appropriate. Medication Compliance: Yes Side effects from medications: No Attending Groups: Intermittent Review of Systems Acute medical concerns: No Medical Review of Systems: unchanged Review of Systems Review of Systems Yes all other systems are reviewed and are negative Mental Status Exam Mental Status Exam Patient Appearance: Disheveled Patient Orientation: Person, Place, Time and Situation Level of Consciousness: Alert Patient Behavior: Appropriate, Talkative, Cooperative and Good Eye Contact Mood Description: Flat Affect Description: Flat Patient Cognition Impaired: No Ability to Follow Directions: Good Speech Pattern: Spontaneous Speech Memory Description: Episodic Impaired Hallucinations: None Delusions: Present Perceptual Disturbances: Derealization Thought Process: Rumination Thought Content: positive for Perseveration Depressive Symptoms: Thoughts of /Suicide (denies while on the unit.) Judgement: Fair Diagnostics Vital Signs (24Hr): Vital Signs - 24 hr 08/15/24 20:00 Temperature 97.4 F Pulse Rate 82 Respiratory Rate 18 Blood Pressure 110/57 L Pulse Oximetry 98 Oxygen Delivery Method Room Air BMI result Body Mass Index 23.4 Labs 08/08/24 21:57 08/16/24 07:25 Labs: Laboratory Results - last 48 hr 08/16/24 07:25 Absolute Neuts (auto) 3.5 Creatinine 0.99 Estim Creat Clear Calc 100.1 Estimated GFR > 60 Imaging Radiology Impressions: ITS Impressions Chest X-Ray 06/28/24 20:45 IMPRESSION: *Low lung volumes; otherwise, no cardiopulmonary abnormalities identified. *Moderate convex rightward scoliosis of the thoracic spine. Electronically signed by: Ran Castaneda MD 06/29/2024 12:03 AM EST RP Head CT 06/28/24 20:53 IMPRESSION: 1. No acute intracranial pathology. 2. Mild cerebral volume loss and mild chronic microangiopathy. Electronically signed by: Bradnon Smith MD 06/28/2024 11:49 PM EST RP Head CT 08/08/24 23:58 IMPRESSION: 1. No evidence of acute intracranial hemorrhage or edematous territorial infarction. 2. Mild underlying microangiopathy and generalized cerebral volume loss. Electronically signed by: Benjamin Davis DO 08/09/2024 01:51 AM [facility] Medications Medications Current Medications Acetaminophen (Acetaminophen 325 Mg Tablet) 650 mg PO Q6H PRN PRN Reason: Headache/Pain Mild Scale (1-3) Al Hydroxide/Mg Hydroxide (Magnesium Hydrox/Alum Hydrox 30 Ml Oral.Susp) 30 ml PO Q6H PRN PRN Reason: Heartburn/Nausea Atorvastatin Calcium (Atorvastatin Calcium 40 Mg Tablet) 40 mg PO DAILY [facility] Last Admin: 08/15/24 08:42 Dose: 40 mg Chlorpromazine HCl (Chlorpromazine Hcl 25 Mg Tablet) 50 mg PO BID [facility] Last Admin: 08/15/24 21:16 Dose: 50 mg Empagliflozin (Empagliflozin 25 Mg Tablet) 25 mg PO DAILY [facility] Last Admin: 08/15/24 08:42 Dose: 25 mg Escitalopram Oxalate (Escitalopram Oxalate 20 Mg Tablet) 20 mg PO DAILY [facility] Last Admin: 08/15/24 08:42 Dose: 20 mg Gabapentin (Gabapentin 400 Mg Capsule) 800 mg PO TID [facility] Last Admin: 08/15/24 21:17 Dose: 800 mg Hydroxyzine HCl (Hydroxyzine Hcl 25 Mg Tablet) 25 mg PO Q6H PRN PRN Reason: Anxiety Loperamide HCl (Loperamide Hcl 2 Mg Capsule) 2 mg PO Q6H PRN PRN Reason: Diarrhea Last Admin: 07/01/24 10:23 Dose: 2 mg Lorazepam (Lorazepam 1 Mg Tablet) 2 mg PO TID [facility] Last Admin: 08/15/24 21:16 Dose: 2 mg Magnesium Hydroxide (Milk Of Magnesia 30 Ml Oral.Susp) 30 ml PO DAILY PRN PRN Reason: Constipation Last Admin: 08/03/24 22:13 Dose: 30 ml Metformin HCl (Metformin Hcl 1,000 Mg Tablet) 1,000 mg PO BID [facility] Last Admin: 07/01/24 21:13 Dose: Not Given Metoprolol Succinate (Metoprolol Succinate Er 25 Mg Tab.Er.24h) 25 mg PO DAILY [facility]; Protocol Last Admin: 08/15/24 08:42 Dose: 25 mg Mirtazapine (Mirtazapine 15 Mg Tablet) 45 mg PO BEDTIME [facility] Last Admin: 08/15/24 21:17 Dose: 45 mg Olanzapine (Olanzapine Odt 10 Mg Tab.Rapdis) 5 mg TRANSLINGU Q4H PRN PRN Reason: anxiety/agitation Last Admin: 07/13/24 12:13 Dose: 5 mg Olanzapine (Olanzapine Odt 10 Mg Tab.Rapdis) 10 mg TRANSLINGU BID [facility] Last Admin: 08/15/24 21:17 Dose: 10 mg Allergies Allergies Allergy/AdvReac Type Severity Reaction Status Date / Time haloperidol [From Haldol] Allergy Intermediate Agitated Verified 06/28/24 17:33 lithium Allergy Intermediate Agitated Verified 06/28/24 17:33 oxcarbazepine Allergy Unknown RASH Verified 06/28/24 17:33 [From TRILEPTAL] fluphenazine [From Prolixin] Allergy akathisia Verified 06/28/24 17:33 Assessment & Plan Assessment & Plan (1) Schizoaffective disorder: Status: Acute Code(s): F25.9 - Schizoaffective disorder, unspecified Plan 08/13: Continue current regimen and plans. Increase Thorazine to 50 mg b.i.d. 08/15/24: Continue current regime and plan of care. 08/16/24: Discharge planning for 08/21/24. Reason for continued inpatient stay Substantial Risk for: rapid decompensation Time Spent With Patient Time: Total time managing care of this patient today ____ minutes.
[2024-08-16] MEDS: Gabapentin 400 MG CAPSULE 800 MG PO ×3 (09:49→21:38)
[2024-08-16] MEDS: LORazepam 1 MG TABLET 2 MG PO ×3 (09:50→21:38)
[2024-08-16] MEDS: Escitalopram Oxalate 20 MG TABLET PO (09:50)
[2024-08-16 09:51] VITALS: BP 128/88; PULSE 100
[2024-08-16] MEDS: Metoprolol Succinate ER 25 MG TAB.ER.24H PO (09:51)
[2024-08-16] MEDS: chlorproMAZINE HCl 25 MG TABLET 50 MG PO ×2 (09:51→21:38)
[2024-08-16] MEDS: Empagliflozin 25 MG TABLET PO (09:52)
[2024-08-16] MEDS: Atorvastatin Calcium 40 MG TABLET PO (09:52)
[2024-08-16] MEDS: OLANZapine ODT 10 MG TAB.RAPDIS TRANSLINGU ×2 (09:52→21:38)
[2024-08-16 19:51] VITALS: BP 107/54; PULSE 87; RESP 15; TEMP 36.6; O2SAT 95
[2024-08-16] MEDS: Mirtazapine 15 MG TABLET 45 MG PO (21:38)
[2024-08-17 08:00] VITALS: BP 117/65; PULSE 85; RESP 16; TEMP 36.3; O2SAT 99
[2024-08-17] MEDS: Atorvastatin Calcium 40 MG TABLET PO (08:20)
[2024-08-17] MEDS: LORazepam 1 MG TABLET 2 MG PO ×2 (08:20→20:21)
[2024-08-17] MEDS: Escitalopram Oxalate 20 MG TABLET PO (08:20)
[2024-08-17] MEDS: Empagliflozin 25 MG TABLET PO (08:20)
[2024-08-17] MEDS: Gabapentin 400 MG CAPSULE 800 MG PO ×2 (08:20→20:21)
[2024-08-17] MEDS: chlorproMAZINE HCl 25 MG TABLET 50 MG PO ×2 (08:20→20:21)
[2024-08-17] MEDS: Metoprolol Succinate ER 25 MG TAB.ER.24H PO (08:20)
[2024-08-17] MEDS: OLANZapine ODT 10 MG TAB.RAPDIS TRANSLINGU ×2 (08:20→20:21)
--- NOTE | 2024-08-17 10:59 | P.PNPSI_ITS ---
Subjective Subjective Date of Service: 08/17/24 Reason For Visit: psychosis Subjective Notes: Section 7 Healthcare Proxy: No Guardianship: No Medical Problems Affecting Mental Status: No Interim History: 6.2 for depression 6.9 for anxiety Discussing discharge. Pt sharing some of his concerns in leaving the hospital, however, is feeling it is time to return home and work with his OP team. Medication Compliance: Yes Side effects from medications: No Attending Groups: Yes Review of Systems Acute medical concerns: No Review of Systems Review of Systems Yes all other systems are reviewed and are negative Mental Status Exam Mental Status Exam Patient Appearance: Disheveled Patient Orientation: Person, Place, Time and Situation Level of Consciousness: Alert Patient Behavior: Appropriate, Talkative, Cooperative and Good Eye Contact Mood Description: Flat Affect Description: Flat Patient Cognition Impaired: No Ability to Follow Directions: Good Speech Pattern: Spontaneous Speech Memory Description: Episodic Impaired Hallucinations: None Delusions: Present Perceptual Disturbances: Derealization Thought Process: Rumination Thought Content: positive for Perseveration Depressive Symptoms: Thoughts of /Suicide (denies while on the unit.) Judgement: Fair Diagnostics Vital Signs (24Hr): Vital Signs - 24 hr 08/16/24 19:51 08/17/24 08:00 Temperature 97.8 F 97.4 F Pulse Rate 87 85 Respiratory Rate 15 16 Blood Pressure 107/54 L 117/65 Pulse Oximetry 95 99 Oxygen Delivery Method Room Air BMI result Body Mass Index 23.4 Labs 08/08/24 21:57 08/16/24 07:25 Labs: Laboratory Results - last 48 hr 08/16/24 07:25 Absolute Neuts (auto) 3.5 Creatinine 0.99 Estim Creat Clear Calc 100.1 Estimated GFR > 60 Imaging Radiology Impressions: ITS Impressions Chest X-Ray 06/28/24 20:45 IMPRESSION: *Low lung volumes; otherwise, no cardiopulmonary abnormalities identified. *Moderate convex rightward scoliosis of the thoracic spine. Electronically signed by: Ran Castaneda MD 06/29/2024 12:03 AM EST RP Head CT 06/28/24 20:53 IMPRESSION: 1. No acute intracranial pathology. 2. Mild cerebral volume loss and mild chronic microangiopathy. Electronically signed by: Brandon Smith MD 06/28/2024 11:49 PM EST RP Head CT 08/08/24 23:58 IMPRESSION: 1. No evidence of acute intracranial hemorrhage or edematous territorial infarction. 2. Mild underlying microangiopathy and generalized cerebral volume loss. Electronically signed by: Benjamin Davis DO 08/09/2024 01:51 AM EST Medications Medications Current Medications Acetaminophen (Acetaminophen 325 Mg Tablet) 650 mg PO Q6H PRN PRN Reason: Headache/Pain Mild Scale (1-3) Al Hydroxide/Mg Hydroxide (Magnesium Hydrox/Alum Hydrox 30 Ml Oral.Susp) 30 ml PO Q6H PRN PRN Reason: Heartburn/Nausea Atorvastatin Calcium (Atorvastatin Calcium 40 Mg Tablet) 40 mg PO DAILY [facility] Last Admin: 08/17/24 08:20 Dose: 40 mg Chlorpromazine HCl (Chlorpromazine Hcl 25 Mg Tablet) 50 mg PO BID [facility] Last Admin: 08/17/24 08:20 Dose: 50 mg Empagliflozin (Empagliflozin 25 Mg Tablet) 25 mg PO DAILY [facility] Last Admin: 08/17/24 08:20 Dose: 25 mg Escitalopram Oxalate (Escitalopram Oxalate 20 Mg Tablet) 20 mg PO DAILY [facility] Last Admin: 08/17/24 08:20 Dose: 20 mg Gabapentin (Gabapentin 400 Mg Capsule) 800 mg PO TID [facility] Last Admin: 08/17/24 08:20 Dose: 800 mg Hydroxyzine HCl (Hydroxyzine Hcl 25 Mg Tablet) 25 mg PO Q6H PRN PRN Reason: Anxiety Loperamide HCl (Loperamide Hcl 2 Mg Capsule) 2 mg PO Q6H PRN PRN Reason: Diarrhea Last Admin: 07/01/24 10:23 Dose: 2 mg Lorazepam (Lorazepam 1 Mg Tablet) 2 mg PO TID [facility] Last Admin: 08/17/24 08:20 Dose: 2 mg Magnesium Hydroxide (Milk Of Magnesia 30 Ml Oral.Susp) 30 ml PO DAILY PRN PRN Reason: Constipation Last Admin: 08/03/24 22:13 Dose: 30 ml Metformin HCl (Metformin Hcl 1,000 Mg Tablet) 1,000 mg PO BID [facility] Last Admin: 07/01/24 21:13 Dose: Not Given Metoprolol Succinate (Metoprolol Succinate Er 25 Mg Tab.Er.24h) 25 mg PO DAILY [facility]; Protocol Last Admin: 08/17/24 08:20 Dose: 25 mg Mirtazapine (Mirtazapine 15 Mg Tablet) 45 mg PO BEDTIME [facility] Last Admin: 08/16/24 21:38 Dose: 45 mg Olanzapine (Olanzapine Odt 10 Mg Tab.Rapdis) 5 mg TRANSLINGU Q4H PRN PRN Reason: anxiety/agitation Last Admin: 07/13/24 12:13 Dose: 5 mg Olanzapine (Olanzapine Odt 10 Mg Tab.Rapdis) 10 mg TRANSLINGU BID [facility] Last Admin: 08/17/24 08:20 Dose: 10 mg Allergies Allergies Allergy/AdvReac Type Severity Reaction Status Date / Time haloperidol [From Haldol] Allergy Intermediate Agitated Verified 06/28/24 17:33 lithium Allergy Intermediate Agitated Verified 06/28/24 17:33 oxcarbazepine Allergy Unknown RASH Verified 06/28/24 17:33 [From TRILEPTAL] fluphenazine [From Prolixin] Allergy akathisia Verified 06/28/24 17:33 Assessment & Plan Assessment & Plan (1) Schizoaffective disorder: Status: Acute Code(s): F25.9 - Schizoaffective disorder, unspecified Plan 08/13: Continue current regimen and plans. Increase Thorazine to 50 mg b.i.d. 08/15/24: Continue current regime and plan of care. 08/17: DC 08/21/24. Pt preparing and feeling ready to return home. Reason for continued inpatient stay Substantial Risk for: rapid decompensation Time Spent With Patient Time: Total time managing care of this patient today ____ minutes.
[2024-08-17] MEDS: Mirtazapine 15 MG TABLET 45 MG PO (20:21)
[2024-08-18 08:00] VITALS: BP 112/63; PULSE 86; RESP 16; TEMP 36.4; O2SAT 98
[2024-08-18] MEDS: Empagliflozin 25 MG TABLET PO (08:48)
[2024-08-18] MEDS: OLANZapine ODT 10 MG TAB.RAPDIS TRANSLINGU ×2 (08:48→20:20)
[2024-08-18] MEDS: Atorvastatin Calcium 40 MG TABLET PO (08:48)
[2024-08-18] MEDS: Gabapentin 400 MG CAPSULE 800 MG PO ×3 (08:48→20:19)
[2024-08-18] MEDS: Escitalopram Oxalate 20 MG TABLET PO (08:48)
[2024-08-18 08:49] VITALS: BP 112/63
[2024-08-18] MEDS: LORazepam 1 MG TABLET 2 MG PO ×3 (08:49→20:20)
[2024-08-18] MEDS: chlorproMAZINE HCl 25 MG TABLET 50 MG PO ×2 (08:49→20:19)
[2024-08-18] MEDS: Metoprolol Succinate ER 25 MG TAB.ER.24H PO (08:49)
--- NOTE | 2024-08-18 10:57 | HO.PSYCHPN ---
Subjective Subjective Date of Service: 08/18/24 Reason For Visit: psychosis Subjective Notes: Section 7 Healthcare Proxy: No Guardianship: No Medical Problems Affecting Mental Status: No Interim History: Discussed how/why he became suicidal at home and how this has resolved. Hoping team will bring in keys, sneakers and his hoodie over the weekend. I am ready, I am not suicidal, and I think the treatment has helped me. Depression 5.5 Anxiety 6.0 Medication Compliance: Yes Side effects from medications: No Attending Groups: Yes Review of Systems Acute medical concerns: No Medical Review of Systems: unchanged Review of Systems Review of Systems Yes all other systems are reviewed and are negative Mental Status Exam Mental Status Exam Patient Appearance: Disheveled Patient Orientation: Person, Place, Time and Situation Level of Consciousness: Alert Patient Behavior: Appropriate, Talkative, Cooperative and Good Eye Contact Mood Description: Flat Affect Description: Flat Patient Cognition Impaired: No Ability to Follow Directions: Good Speech Pattern: Spontaneous Speech Memory Description: Episodic Impaired Hallucinations: None Delusions: Present Perceptual Disturbances: Derealization Thought Process: Rumination Thought Content: positive for Perseveration Depressive Symptoms: Thoughts of /Suicide (denies while on the unit.) Judgement: Fair Diagnostics Vital Signs (24Hr): Vital Signs - 24 hr 08/18/24 08:00 08/18/24 08:49 Temperature 97.5 F Pulse Rate 86 Respiratory Rate 16 Blood Pressure 112/63 112/63 Pulse Oximetry 98 Oxygen Delivery Method Room Air BMI result Body Mass Index 23.4 Labs 08/08/24 21:57 08/16/24 07:25 Imaging Radiology Impressions: ITS Impressions Chest X-Ray 06/28/24 20:45 IMPRESSION: *Low lung volumes; otherwise, no cardiopulmonary abnormalities identified. *Moderate convex rightward scoliosis of the thoracic spine. Electronically signed by: Ran Castaneda MD 06/29/2024 12:03 AM EST RP Head CT 06/28/24 20:53 IMPRESSION: 1. No acute intracranial pathology. 2. Mild cerebral volume loss and mild chronic microangiopathy. Electronically signed by: Brandon Smith MD 06/28/2024 11:49 PM EST RP Head CT 08/08/24 23:58 IMPRESSION: 1. No evidence of acute intracranial hemorrhage or edematous territorial infarction. 2. Mild underlying microangiopathy and generalized cerebral volume loss. Electronically signed by: Benjamin Davis DO 08/09/2024 01:51 AM [facility] Medications Medications Current Medications Acetaminophen (Acetaminophen 325 Mg Tablet) 650 mg PO Q6H PRN PRN Reason: Headache/Pain Mild Scale (1-3) Al Hydroxide/Mg Hydroxide (Magnesium Hydrox/Alum Hydrox 30 Ml Oral.Susp) 30 ml PO Q6H PRN PRN Reason: Heartburn/Nausea Atorvastatin Calcium (Atorvastatin Calcium 40 Mg Tablet) 40 mg PO DAILY [facility] Last Admin: 08/18/24 08:48 Dose: 40 mg Chlorpromazine HCl (Chlorpromazine Hcl 25 Mg Tablet) 50 mg PO BID [facility] Last Admin: 08/18/24 08:49 Dose: 50 mg Empagliflozin (Empagliflozin 25 Mg Tablet) 25 mg PO DAILY [facility] Last Admin: 08/18/24 08:48 Dose: 25 mg Escitalopram Oxalate (Escitalopram Oxalate 20 Mg Tablet) 20 mg PO DAILY [facility] Last Admin: 08/18/24 08:48 Dose: 20 mg Gabapentin (Gabapentin 400 Mg Capsule) 800 mg PO TID [facility] Last Admin: 08/18/24 08:48 Dose: 800 mg Hydroxyzine HCl (Hydroxyzine Hcl 25 Mg Tablet) 25 mg PO Q6H PRN PRN Reason: Anxiety Loperamide HCl (Loperamide Hcl 2 Mg Capsule) 2 mg PO Q6H PRN PRN Reason: Diarrhea Last Admin: 07/01/24 10:23 Dose: 2 mg Lorazepam (Lorazepam 1 Mg Tablet) 2 mg PO TID [facility] Last Admin: 08/18/24 08:49 Dose: 2 mg Magnesium Hydroxide (Milk Of Magnesia 30 Ml Oral.Susp) 30 ml PO DAILY PRN PRN Reason: Constipation Last Admin: 08/03/24 22:13 Dose: 30 ml Metformin HCl (Metformin Hcl 1,000 Mg Tablet) 1,000 mg PO BID [facility] Last Admin: 07/01/24 21:13 Dose: Not Given Metoprolol Succinate (Metoprolol Succinate Er 25 Mg Tab.Er.24h) 25 mg PO DAILY [facility]; Protocol Last Admin: 08/18/24 08:49 Dose: 25 mg Mirtazapine (Mirtazapine 15 Mg Tablet) 45 mg PO BEDTIME [facility] Last Admin: 08/17/24 20:21 Dose: 45 mg Olanzapine (Olanzapine Odt 10 Mg Tab.Rapdis) 5 mg TRANSLINGU Q4H PRN PRN Reason: anxiety/agitation Last Admin: 07/13/24 12:13 Dose: 5 mg Olanzapine (Olanzapine Odt 10 Mg Tab.Rapdis) 10 mg TRANSLINGU BID [facility] Last Admin: 08/18/24 08:48 Dose: 10 mg Allergies Allergies Allergy/AdvReac Type Severity Reaction Status Date / Time haloperidol [From Haldol] Allergy Intermediate Agitated Verified 06/28/24 17:33 lithium Allergy Intermediate Agitated Verified 06/28/24 17:33 oxcarbazepine Allergy Unknown RASH Verified 06/28/24 17:33 [From TRILEPTAL] fluphenazine [From Prolixin] Allergy akathisia Verified 06/28/24 17:33 Assessment & Plan Assessment & Plan (1) Schizoaffective disorder: Status: Acute Code(s): F25.9 - Schizoaffective disorder, unspecified Plan 08/13: Continue current regimen and plans. Increase Thorazine to 50 mg b.i.d. 08/15/24: Continue current regime and plan of care. 08/18/24: DC 08/21 Support pt in his planning to return home. Reason for continued inpatient stay Substantial Risk for: rapid decompensation Time Spent With Patient Time: Total time managing care of this patient today ____ minutes.
[2024-08-18 20:00] VITALS: BP 130/70; PULSE 85; RESP 16; TEMP 36.6; O2SAT 97
[2024-08-18] MEDS: Mirtazapine 15 MG TABLET 45 MG PO (20:20)
[2024-08-19 08:00] VITALS: BP 104/56; PULSE 93; RESP 18; TEMP 36.4; O2SAT 97
[2024-08-19 09:20] VITALS: BP 104/56; PULSE 93
[2024-08-19] MEDS: Metoprolol Succinate ER 25 MG TAB.ER.24H PO (09:20)
[2024-08-19] MEDS: Empagliflozin 25 MG TABLET PO (09:20)
[2024-08-19] MEDS: LORazepam 1 MG TABLET 2 MG PO ×3 (09:20→21:34)
[2024-08-19] MEDS: Escitalopram Oxalate 20 MG TABLET PO (09:20)
[2024-08-19] MEDS: OLANZapine ODT 10 MG TAB.RAPDIS TRANSLINGU ×2 (09:20→21:34)
[2024-08-19] MEDS: chlorproMAZINE HCl 25 MG TABLET 50 MG PO ×2 (09:20→21:33)
[2024-08-19] MEDS: Gabapentin 400 MG CAPSULE 800 MG PO ×3 (09:20→21:34)
[2024-08-19] MEDS: Atorvastatin Calcium 40 MG TABLET PO (09:21)
--- NOTE | 2024-08-19 15:16 | P.PNPSI_ITS ---
Subjective Subjective Date of Service: 08/19/24 Reason For Visit: psychosis Subjective Notes: Section 7 Interim History: Pt seen, discussed with team. Expressed worry and concern that his OP team has not come in with his shoes,jacket and keys. Planning discharge for 08/21. Perseverative on OP team not responding to this request. Medication Compliance: Yes Side effects from medications: No Attending Groups: Intermittent Review of Systems Acute medical concerns: No Medical Review of Systems: unchanged Review of Systems Review of Systems Yes all other systems are reviewed and are negative Mental Status Exam Mental Status Exam Patient Appearance: Disheveled Patient Orientation: Person, Place, Time and Situation Level of Consciousness: Alert Patient Behavior: Appropriate, Talkative, Cooperative and Good Eye Contact Mood Description: Flat Affect Description: Flat Patient Cognition Impaired: No Ability to Follow Directions: Good Speech Pattern: Spontaneous Speech Memory Description: Episodic Impaired Hallucinations: None Delusions: Present Perceptual Disturbances: Derealization Thought Process: Rumination Thought Content: positive for Perseveration Depressive Symptoms: Thoughts of /Suicide (denies while on the unit.) Judgement: Fair Diagnostics Vital Signs (24Hr): Vital Signs - 24 hr 08/18/24 20:00 08/19/24 08:00 08/19/24 09:20 Temperature 97.9 F 97.6 F Pulse Rate 85 93 93 Respiratory Rate 16 18 Blood Pressure 130/70 104/56 L 104/56 L Pulse Oximetry 97 97 Oxygen Delivery Method Room Air Room Air BMI result Body Mass Index 23.4 Labs 08/08/24 21:57 08/16/24 07:25 Imaging Radiology Impressions: ITS Impressions Chest X-Ray 06/28/24 20:45 IMPRESSION: *Low lung volumes; otherwise, no cardiopulmonary abnormalities identified. *Moderate convex rightward scoliosis of the thoracic spine. Electronically signed by: Ran Castaneda MD 06/29/2024 12:03 AM EST RP Head CT 06/28/24 20:53 IMPRESSION: 1. No acute intracranial pathology. 2. Mild cerebral volume loss and mild chronic microangiopathy. Electronically signed by: Brandon Smith MD 06/28/2024 11:49 PM EST RP Head CT 08/08/24 23:58 IMPRESSION: 1. No evidence of acute intracranial hemorrhage or edematous territorial infarction. 2. Mild underlying microangiopathy and generalized cerebral volume loss. Electronically signed by: Benjamin Davis DO 08/09/2024 01:51 AM [facility] Medications Medications Current Medications Acetaminophen (Acetaminophen 325 Mg Tablet) 650 mg PO Q6H PRN PRN Reason: Headache/Pain Mild Scale (1-3) Al Hydroxide/Mg Hydroxide (Magnesium Hydrox/Alum Hydrox 30 Ml Oral.Susp) 30 ml PO Q6H PRN PRN Reason: Heartburn/Nausea Atorvastatin Calcium (Atorvastatin Calcium 40 Mg Tablet) 40 mg PO DAILY [facility] Last Admin: 08/19/24 09:21 Dose: 40 mg Chlorpromazine HCl (Chlorpromazine Hcl 25 Mg Tablet) 50 mg PO BID [facility] Last Admin: 08/19/24 09:20 Dose: 50 mg Empagliflozin (Empagliflozin 25 Mg Tablet) 25 mg PO DAILY [facility] Last Admin: 08/19/24 09:20 Dose: 25 mg Escitalopram Oxalate (Escitalopram Oxalate 20 Mg Tablet) 20 mg PO DAILY [facility] Last Admin: 08/19/24 09:20 Dose: 20 mg Gabapentin (Gabapentin 400 Mg Capsule) 800 mg PO TID [facility] Last Admin: 08/19/24 09:20 Dose: 800 mg Hydroxyzine HCl (Hydroxyzine Hcl 25 Mg Tablet) 25 mg PO Q6H PRN PRN Reason: Anxiety Loperamide HCl (Loperamide Hcl 2 Mg Capsule) 2 mg PO Q6H PRN PRN Reason: Diarrhea Last Admin: 07/01/24 10:23 Dose: 2 mg Lorazepam (Lorazepam 1 Mg Tablet) 2 mg PO TID [facility] Last Admin: 08/19/24 09:20 Dose: 2 mg Magnesium Hydroxide (Milk Of Magnesia 30 Ml Oral.Susp) 30 ml PO DAILY PRN PRN Reason: Constipation Last Admin: 08/03/24 22:13 Dose: 30 ml Metformin HCl (Metformin Hcl 1,000 Mg Tablet) 1,000 mg PO BID [facility] Last Admin: 07/01/24 21:13 Dose: Not Given Metoprolol Succinate (Metoprolol Succinate Er 25 Mg Tab.Er.24h) 25 mg PO DAILY [facility]; Protocol Last Admin: 08/19/24 09:20 Dose: 25 mg Mirtazapine (Mirtazapine 15 Mg Tablet) 45 mg PO BEDTIME [facility] Last Admin: 08/18/24 20:20 Dose: 45 mg Olanzapine (Olanzapine Odt 10 Mg Tab.Rapdis) 5 mg TRANSLINGU Q4H PRN PRN Reason: anxiety/agitation Last Admin: 07/13/24 12:13 Dose: 5 mg Olanzapine (Olanzapine Odt 10 Mg Tab.Rapdis) 10 mg TRANSLINGU BID [facility] Last Admin: 08/19/24 09:20 Dose: 10 mg Allergies Allergies Allergy/AdvReac Type Severity Reaction Status Date / Time haloperidol [From Haldol] Allergy Intermediate Agitated Verified 06/28/24 17:33 lithium Allergy Intermediate Agitated Verified 06/28/24 17:33 oxcarbazepine Allergy Unknown RASH Verified 06/28/24 17:33 [From TRILEPTAL] fluphenazine [From Prolixin] Allergy akathisia Verified 06/28/24 17:33 Assessment & Plan Assessment & Plan (1) Schizoaffective disorder: Status: Acute Code(s): F25.9 - Schizoaffective disorder, unspecified Plan 08/13: Continue current regimen and plans. Increase Thorazine to 50 mg b.i.d. 08/15/24: Continue current regime and plan of care. 08/18/24: DC 08/21 Support pt in his planning to return home. 08/19/24: Continue current regime and plan of care. Reason for continued inpatient stay Substantial Risk for: rapid decompensation Time Spent With Patient Time: Total time managing care of this patient today ____ minutes.
[2024-08-19 19:40] VITALS: BP 122/81; PULSE 104; RESP 18; TEMP 36.6; O2SAT 98
[2024-08-19] MEDS: Mirtazapine 15 MG TABLET 45 MG PO (21:33)
[2024-08-20 08:00] VITALS: BP 130/59; PULSE 82; TEMP 36.3; O2SAT 95
[2024-08-20 09:38] VITALS: BP 130/59; PULSE 82
[2024-08-20] MEDS: Gabapentin 400 MG CAPSULE 800 MG PO ×3 (09:38→20:40)
[2024-08-20] MEDS: Metoprolol Succinate ER 25 MG TAB.ER.24H PO (09:38)
[2024-08-20] MEDS: Empagliflozin 25 MG TABLET PO (09:39)
[2024-08-20] MEDS: LORazepam 1 MG TABLET 2 MG PO ×3 (09:39→20:39)
[2024-08-20] MEDS: chlorproMAZINE HCl 25 MG TABLET 50 MG PO ×2 (09:39→20:42)
[2024-08-20] MEDS: Atorvastatin Calcium 40 MG TABLET PO (09:39)
[2024-08-20] MEDS: Escitalopram Oxalate 20 MG TABLET PO (09:39)
[2024-08-20] MEDS: OLANZapine ODT 10 MG TAB.RAPDIS TRANSLINGU ×2 (09:39→20:41)
--- NOTE | 2024-08-20 14:00 | HO.PSYCHPN ---
Subjective Subjective Date of Service: 08/20/24 Reason For Visit: psychosis Subjective Notes: Section 7 Healthcare Proxy: No Guardianship: No Medical Problems Affecting Mental Status: No Interim History: Pt reports apprehension as his residential team has not acknowledged his request to bring in his shoes, keys and hoodie to discharge on 08/21. Reports depression/anxiety 4.2 today. Team has a back up plan for shoes,coat if team does not bring these things in. Pt today is focused on this and concerned the team has forgotton this. He denies SI/HI/AH/VH. There are no acute sx of psychosis or joe. Pt is feeling ready to discharge and safe to discharge. Medicine regime was reviewed with pt. Medication Compliance: Yes Side effects from medications: No Attending Groups: Intermittent Review of Systems Acute medical concerns: No Medical Review of Systems: unchanged Review of Systems Review of Systems Yes all other systems are reviewed and are negative Mental Status Exam Mental Status Exam Patient Appearance: Appropriate Patient Orientation: Person, Place, Time and Situation Level of Consciousness: Alert Patient Behavior: Appropriate, Talkative, Cooperative and Good Eye Contact Mood Description: Flat Affect Description: Flat Patient Cognition Impaired: No Ability to Follow Directions: Good Speech Pattern: Spontaneous Speech Memory Description: Episodic Impaired Hallucinations: None Delusions: Not Present Thought Process: Intact Thought Content: positive for Intact, positive for Perseveration and positive for Suicidal Ideation (denies) Depressive Symptoms: Thoughts of /Suicide (denies while on the unit.) Judgement: Good Diagnostics Vital Signs (24Hr): Vital Signs - 24 hr 08/19/24 19:40 08/20/24 08:00 08/20/24 09:38 Temperature 97.9 F 97.3 F Pulse Rate 104 H 82 82 Respiratory Rate 18 Blood Pressure 122/81 130/59 L 130/59 L Pulse Oximetry 98 95 Oxygen Delivery Method Room Air Room Air BMI result Body Mass Index 23.4 Labs 08/08/24 21:57 08/16/24 07:25 Imaging Radiology Impressions: ITS Impressions Chest X-Ray 06/28/24 20:45 IMPRESSION: *Low lung volumes; otherwise, no cardiopulmonary abnormalities identified. *Moderate convex rightward scoliosis of the thoracic spine. Electronically signed by: Ran Castaneda MD 06/29/2024 12:[address] [facility] [address] 06/28/24 20:53 IMPRESSION: 1. No acute intracranial pathology. 2. Mild cerebral volume loss and mild chronic microangiopathy. Electronically signed by: Brandon Smith MD 06/28/2024 11:49 PM EST RP Head CT 08/08/24 23:58 IMPRESSION: 1. No evidence of acute intracranial hemorrhage or edematous territorial infarction. 2. Mild underlying microangiopathy and generalized cerebral volume loss. Electronically signed by: Benjamin Davis DO 08/09/2024 01:51 AM EST [facility] Medications Medications Current Medications Acetaminophen (Acetaminophen 325 Mg Tablet) 650 mg PO Q6H PRN PRN Reason: Headache/Pain Mild Scale (1-3) Al Hydroxide/Mg Hydroxide (Magnesium Hydrox/Alum Hydrox 30 Ml Oral.Susp) 30 ml PO Q6H PRN PRN Reason: Heartburn/Nausea Atorvastatin Calcium (Atorvastatin Calcium 40 Mg Tablet) 40 mg PO DAILY [facility] Last Admin: 08/20/24 09:39 Dose: 40 mg Chlorpromazine HCl (Chlorpromazine Hcl 25 Mg Tablet) 50 mg PO BID [facility] Last Admin: 08/20/24 09:39 Dose: 50 mg Empagliflozin (Empagliflozin 25 Mg Tablet) 25 mg PO DAILY [facility] Last Admin: 08/20/24 09:39 Dose: 25 mg Escitalopram Oxalate (Escitalopram Oxalate 20 Mg Tablet) 20 mg PO DAILY [facility] Last Admin: 08/20/24 09:39 Dose: 20 mg Gabapentin (Gabapentin 400 Mg Capsule) 800 mg PO TID [facility] Last Admin: 08/20/24 09:38 Dose: 800 mg Hydroxyzine HCl (Hydroxyzine Hcl 25 Mg Tablet) 25 mg PO Q6H PRN PRN Reason: Anxiety Loperamide HCl (Loperamide Hcl 2 Mg Capsule) 2 mg PO Q6H PRN PRN Reason: Diarrhea Last Admin: 07/01/24 10:23 Dose: 2 mg Lorazepam (Lorazepam 1 Mg Tablet) 2 mg PO TID [facility] Last Admin: 08/20/24 09:39 Dose: 2 mg Magnesium Hydroxide (Milk Of Magnesia 30 Ml Oral.Susp) 30 ml PO DAILY PRN PRN Reason: Constipation Last Admin: 08/03/24 22:13 Dose: 30 ml Metformin HCl (Metformin Hcl 1,000 Mg Tablet) 1,000 mg PO BID [facility] Last Admin: 07/01/24 21:13 Dose: Not Given Metoprolol Succinate (Metoprolol Succinate Er 25 Mg Tab.Er.24h) 25 mg PO DAILY [facility]; Protocol Last Admin: 08/20/24 09:38 Dose: 25 mg Mirtazapine (Mirtazapine 15 Mg Tablet) 45 mg PO BEDTIME [facility] Last Admin: 08/19/24 21:33 Dose: 45 mg Olanzapine (Olanzapine Odt 10 Mg Tab.Rapdis) 5 mg TRANSLINGU Q4H PRN PRN Reason: anxiety/agitation Last Admin: 07/13/24 12:13 Dose: 5 mg Olanzapine (Olanzapine Odt 10 Mg Tab.Rapdis) 10 mg TRANSLINGU BID [facility] Last Admin: 08/20/24 09:39 Dose: 10 mg Allergies Allergies Allergy/AdvReac Type Severity Reaction Status Date / Time haloperidol [From Haldol] Allergy Intermediate Agitated Verified 06/28/24 17:33 lithium Allergy Intermediate Agitated Verified 06/28/24 17:33 oxcarbazepine Allergy Unknown RASH Verified 06/28/24 17:33 [From TRILEPTAL] fluphenazine [From Prolixin] Allergy akathisia Verified 06/28/24 17:33 Assessment & Plan Assessment & Plan (1) Schizoaffective disorder: Status: Acute Code(s): F25.9 - Schizoaffective disorder, unspecified Plan 08/13: Continue current regimen and plans. Increase Thorazine to 50 mg b.i.d. 08/15/24: Continue current regime and plan of care. 08/18/24: DC 08/21 Support pt in his planning to return home. 08/19/24: Continue current regime and plan of care. 08/20/24: Continue current regime. Discharge 08/21. Reason for continued inpatient stay Substantial Risk for: stable for discharge Time Spent With Patient Time: Total time managing care of this patient today ____ minutes.
[2024-08-20 20:00] VITALS: BP 107/64; PULSE 89; TEMP 36.6; O2SAT 96
[2024-08-20] MEDS: Mirtazapine 15 MG TABLET 45 MG PO (20:40)
[2024-08-21 08:00] VITALS: BP 118/66; PULSE 88; RESP 16; TEMP 36.4; O2SAT 97
[2024-08-21 09:17] VITALS: BP 118/66; PULSE 88
[2024-08-21] MEDS: Empagliflozin 25 MG TABLET PO (09:17)
[2024-08-21] MEDS: Atorvastatin Calcium 40 MG TABLET PO (09:17)
[2024-08-21] MEDS: Gabapentin 400 MG CAPSULE 800 MG PO (09:17)
[2024-08-21] MEDS: Metoprolol Succinate ER 25 MG TAB.ER.24H PO (09:17)
[2024-08-21] MEDS: chlorproMAZINE HCl 25 MG TABLET 50 MG PO (09:17)
[2024-08-21] MEDS: OLANZapine ODT 10 MG TAB.RAPDIS TRANSLINGU (09:18)
[2024-08-21] MEDS: Escitalopram Oxalate 20 MG TABLET PO (09:18)
[2024-08-21] MEDS: LORazepam 1 MG TABLET 2 MG PO (09:18)
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
== END 2024-08-21 12:00 | disposition home or self-care (01) | DRG 885 ==
LOC: HO.ED 06-29 01:31 → HO.PM5 06-29 12:20
PROVIDERS: Emergency Medicine; Physician Assistant; Admitting Provider Psychiatry & Neurology Psychiatry; Emergency Provider Emergency Medicine; PCP Family Medicine; Visit Provider Clinical Nurse Specialist Psychiatric/Mental Health, Adult
DX: F25.9 Schizoaffective disorder, unspecified (principal); R45.851 Suicidal ideations; E13.9 Other specified diabetes mellitus without complications; F06.1 Catatonic disorder due to known physiological condition; Z79.84 Long term (current) use of oral hypoglycemic drugs; Z79.85 Long-term (current) use of injectable non-insulin antidiabetic drugs; Z79.899 Other long term (current) drug therapy
CPT/HCPCS: 36415; 70450; 71045; 80053; 80143; 80179; 80307; 82565; 82803; 82947; 84443; 85025; 85048; 93005; 99285; J2060; J3360; S9485

== ENCOUNTER → 2024-06-28 20:34 | Outpatient (BNV) | payer MEDICARE, MEDICAID, SELFPAY | PROVIDERS: Emergency Provider Emergency Medicine; PCP Family Medicine; Visit Provider Internal Medicine Cardiovascular Disease | DX: R00.0 Tachycardia, unspecified (principal) | CPT/HCPCS: 93010 ==

== ENCOUNTER → 2024-06-29 12:09 | Outpatient (BNV) | payer MEDICARE, MEDICAID, SELFPAY | PROVIDERS: Admitting Provider Psychiatry & Neurology Psychiatry; Emergency Provider Emergency Medicine; PCP Family Medicine; Visit Provider Psychiatry & Neurology Psychiatry | DX: F25.1 Schizoaffective disorder, depressive type (principal) | CPT/HCPCS: 90792; 99231; 99232 ==

== ENCOUNTER 2024-08-28 12:16 | Inpatient (IN) | payer MEDICARE, MEDICAID, SELFPAY ==
--- NOTE | 2024-08-28 12:37 | ED_ITS ---
HPI - Psych General Chief Complaint: Psychiatric Symptoms Stated Complaint: SEC 12 BY [facility],COMBATIVE,H/O SCHIZOPHRENIA PER EMS Time Seen by Provider: 08/28/24 12:24 Source: patient and RN notes reviewed Mode of arrival: ambulatory Limitations: no limitations History of Present Illness ED Provider: Shana Reveles PA-C HPI Narrative: This is a 48-year-old male, with a history of anxiety, schizoaffective disorder, diabetes, benzodiazepine withdrawal, who presents emergency department via EMS on section 12 after being found in his apartment with aggressive behavior. Per EMS, patient has not been compliant with his psychiatric medications. He was seen by [facility] crisis, and placed on a section 12. On my initial assessment, patient refusing to answer any my questions. Context: not taking psychiatric medications Related Data Home Medications ?Medication ?Instructions ?Recorded ?Confirmed dulaglutide 3 mg/0.5 mL 3 mg subcut WE@0900 09/23/23 08/28/24 subcutaneous pen injector (Trulicity) empagliflozin 25 mg tablet 25 mg PO DAILY 09/23/23 08/28/24 (Jardiance) clozapine 25 mg tablet 250 mg PO DAILY 08/28/24 08/28/24 Previous Rx's ?Medication ?Instructions ?Recorded atorvastatin 40 mg tablet 40 mg PO DAILY #30 tabs 08/21/24 chlorpromazine 25 mg tablet 50 mg (2 x 25 mg) PO BID #90 tabs 08/21/24 escitalopram oxalate 20 mg tablet 20 mg PO DAILY #30 tabs 08/21/24 gabapentin 400 mg capsule 800 mg (2 x 400 mg) PO TID #90 caps 08/21/24 lorazepam 2 mg tablet 2 mg PO TID #21 tabs 08/21/24 metformin 1,000 mg tablet 1,000 mg PO BID #60 tabs 08/21/24 metoprolol succinate 25 mg 25 mg PO DAILY #30 tabs 08/21/24 tablet,extended release 24 hr mirtazapine 45 mg tablet 45 mg PO BEDTIME #30 tabs 08/21/24 olanzapine 10 mg disintegrating 10 mg translingual BID #60 tabs 08/21/24 tablet Allergies Allergy/AdvReac Type Severity Reaction Status Date / Time haloperidol [From Haldol] Allergy Intermediate Agitated Verified 08/28/24 12:47 lithium Allergy Intermediate Agitated Verified 08/28/24 12:47 oxcarbazepine Allergy Unknown RASH Verified 08/28/24 12:47 [From TRILEPTAL] fluphenazine [From Prolixin] Allergy akathisia Verified 08/28/24 12:47 Review of Systems 2 Review of Systems: Yes all other systems are reviewed and are negative Constitutional: Constitutional: Reports as per [facility] Past Medical History Attestation statement: The following information was validated with the patient. Medical History Acute anxiety Schizoaffective disorder Diabetes 1.5, managed as type 2 Social History Social History Household Members: Friend(s) Household Members Other:: roommate. Housing: Apartment Housing Other:: [facility] supported apartment Do you presently have visiting nurse or other home services: Yes Alcohol intake: former Comment: utilizing a walker Patient Tobacco Use Status: Never used Tobacco Tobacco use type: Cigarette e-Cigarette/Vaping Use: Never Used Second Hand Smoke Exposure: No Advance Directives: No Advance Directives Information Provided: Yes service: No Sexual orientation: Unable to collect Physical Exam 2 Vital Signs: Vital Signs: Last Vital Signs Temp 97.9 F 08/29/24 21:45 Pulse 89 08/29/24 21:45 Resp 18 08/29/24 21:45 BP 133/80 08/29/24 21:45 Pulse Ox 98 08/29/24 21:45 O2 Del Method Room Air 08/29/24 21:45 BMI result Body Mass Index 23.6 Const: General: cooperative, comfortable and no acute distress Limitations: no limitations HEENT: Head: Yes normal to inspection, Yes normocephalic and Yes atraumatic Ears: hearing grossly normal bilaterally General nose exam: Normal external nose present Face and sinus: Yes normal facial exam Mouth: Normal oral and palatal mucosa present, oropharynx normal and moist mucous membranes Throat: Yes posterior oropharynx normal Eyes: General: appearance normal, both eyes and all related structures E yelids: Yes eyelids normal Conjunctivae: conjunctivae normal Sclerae: s clerae normal Pupils: Equal, round and reactive pupils present EOM: EOMs intact bilaterally Neck: Neck: Yes normal visual inspection, Yes full ROM and Yes no lymphadenopathy Lymphatic: no lymphadenopathy noted Chest: Chest palpation & inspection: normal inspection of the chest Resp: Effort & Inspection: normal respiratory effort and able to speak in complete sentences Auscultation: clear to auscultation bilaterally, no crackles, no rales, no rhonchi and no wheezes Cardio: Rate: regular rate Rhythm: regular rhythm Heart sounds: S1 normal heart sound present and S2 normal heart sound present GI: Other: Abdomen is soft nontender Inspection: Yes normal to inspection Skin: General skin exam: no rashes or lesions noted Trauma: no lacerations or abrasions Wounds: no wounds Neuro: General: moves all extremities Cranial nerves: Yes Equal, round and reactive pupils present Extrem: General: Yes normal to inspection Right upper extremity: normal to inspection Left upper extremity: normal to inspection Right lower extremity: normal to inspection Left lower extremity: normal to inspection Psych: Appearance: disheveled Speech and movement: Mute speech present A ffect: Irritable affect present Attitude: Guarded attititude/behavior present, Avoids eye contact (attititude/behavior) and Refuses to answer (attititude/behavior) Insight: Poor insight present (Psych) Judgement: P oor judgement present (Psych) Course Reevaluation(s) Reevaluation #1: Labs returned, he has no leukocytosis, stable H&H, chemistry with no electrolyte derangement, ethyl alcohol less than 10. He did not require any medicines as he has been cooperative with staff. At this point, patient is medically cleared. I went and re-evaluated patient, he is alert and oriented x4, reports that the only thing that is bothering him is that he does not have any more dafne benton. He is not in any current pain. This is similar presentation to his presentation that he has had in the past. He remains to be comfortable, and vital signs stable. Patient was seen by the care team, they feel he could benefit from inpatient level of care due to level decompensation and presentation. Bed search initiated. Time: 17:21 Reevaluation #2: I was asked to evaluate the patient as he was becoming more and more agitated and less redirectable. The patient was screaming in his room by himself when I walked into the pod. The patient requests dafne benton and ?a shot in the ass. He was reportedly asking nursing staff earlier for ?something to help sleep. I asked the patient if he would like any medications orally to help him settle down or help him with sleep and the patient continues to demand an injection. He is also requesting dafne benton which she will be given. He will also be given Zyprexa 10 mg IM. This is not a restrained as the patient requested IM and refused oral medication. Time: 17:42 Reevaluation #3: 08/29/24 stable 6:10 Am vital stable no new complaints ,continue bed search Time: 07:07 Additional Reevaluation(s): 08/30/24: No acute events overnight, patient otherwise appears well and continues as bed search. Medications Administered Generic Name Dose Route Start Last Admin Trade Name Neli PRN Reason Stop Dose Admin Atorvastatin Calcium 40 mg 08/29/24 09:00 08/29/24 08:23 Atorvastatin Calcium 40 Mg Tablet PO 40 mg DAILY LAUREN Administration Chlorpromazine HCl 50 mg 08/28/24 21:00 08/29/24 21:20 Chlorpromazine Hcl 25 Mg Tablet PO 50 mg BID LAUREN Administration Empagliflozin 25 mg 08/29/24 09:00 08/29/24 08:47 Empagliflozin 25 Mg Tablet PO Not Given DAILY LAUREN Escitalopram Oxalate 20 mg 08/29/24 09:00 08/29/24 08:23 Escitalopram Oxalate 20 Mg Tablet PO 20 mg DAILY LAUREN Administration Gabapentin 800 mg 08/28/24 21:00 08/29/24 21:20 Gabapentin 400 Mg Capsule PO 800 mg TID LAUREN Administration Lorazepam 2 mg 08/28/24 21:00 08/29/24 21:21 Lorazepam 1 Mg Tablet PO 2 mg TID LAUREN Administration Metformin HCl 1,000 mg 08/28/24 21:00 08/29/24 21:21 Metformin Hcl 1,000 Mg Tablet PO 1,000 mg BID LAUREN Administration Metoprolol Succinate 25 mg 08/29/24 09:00 08/29/24 08:23 Metoprolol Succinate Er 25 Mg Tab.Er.24h PO 25 mg DAILY LAUREN Administration Protocol Mirtazapine 45 mg 08/28/24 21:00 08/29/24 21:21 Mirtazapine 15 Mg Tablet PO 45 mg BEDTIME LAUREN Administration Olanzapine 10 mg 08/28/24 21:00 08/29/24 21:20 Olanzapine Odt 10 Mg Tab.Rapdis TRANSLINGU 10 mg BID LAUREN Administration Discontinued Medications Generic Name Dose Route Start Last Admin Trade Name Neli PRN Reason Stop Dose Admin Diphenhydramine HCl 50 mg 08/28/24 12:25 08/28/24 12:55 Diphenhydramine Hcl 50 Mg/Ml Vial IM 08/28/24 12:26 Not Given ONCE ONE Lorazepam 2 mg 08/28/24 12:25 08/28/24 12:55 Lorazepam 2 Mg/Ml Vial IM 08/28/24 12:26 Not Given STAT STA Olanzapine 10 mg 08/28/24 12:25 08/28/24 12:55 Olanzapine 10 Mg Vial IM 08/28/24 12:26 Not Given ONCE ONE Olanzapine 10 mg 08/28/24 17:41 08/28/24 17:50 Olanzapine 10 Mg Vial IM 08/28/24 17:42 10 mg STAT STA Administration Medical Decision Making Medical Decision Making [facility] Narrative: This is a 48-year-old male who presents emergency department via EMS on section 12 due to aggressive behavior. On arrival, vital signs within normal limits. He refuses to talk to me. Avoiding eye contact. Will obtain blood work, and patient will be seen by the care team. Differential Diagnosis Differential Diagnoses: The differential diagnosis associated with the presentation includes Schizoaffective disorder, depression, anxiety, agitation, medication noncompliance. Lab Data [facility] Lab Attestation statement: I reviewed the patient's lab results. 08/28/24 12:41 08/28/24 12:41 Labs: Lab Results 08/28/24 Range/Units 12:41 WBC 10.4 (4.8-10.8) X10*3/uL RBC 5.54 (4.60-5.80) X10*6/uL Hgb 15.7 (14.0-18.0) g/dl Hct 46.5 (42.0-52.0) % MCV 83.9 (80.0-98.0) fL MCH 28.3 (27.0-33.0) pg MCHC 33.8 (31.0-36.0) g/dl RDW 12.8 (11.0-16.0) % Plt Count 236 (160-400) X10*3/uL MPV 9.6 (9.4-12.4) fL Immature Gran % (Auto) 0.2 (0.0-0.4) % Neut % (Auto) 78.5 H (45-73) % Lymph % (Auto) 14.2 L (20-40) % Owen % (Auto) 6.5 (2-11) % Eos % (Auto) 0.0 (0-4) % Baso % (Auto) 0.6 (0-2) % Lymph # (Auto) 1.5 (1.2-4.9) X10*3/uL Owen # (Auto) 0.7 (0.1-1.2) X10*3/uL Eos # (Auto) 0.0 (0.0-0.4) X10*3/uL Baso # (Auto) 0.1 (0.0-0.2) X10*3/uL Abs Immat Gran (auto) 0.02 (0.00-0.03) X10*3/uL Absolute Neuts (auto) 8.2 (2.0-8.3) x10*3/uL Absolute Nucleated RBC 0.000 (0.0-0.012) X10*3/uL Nucleated RBC % (auto) 0.0 (0.0-0.2) /100WBC Sodium 138 (135-145) mmol/L Potassium 3.6 (3.3-5.1) mmol/L Chloride 106 (96-108) mmol/L Carbon Dioxide 16 L (22-29) mmol/L Anion Gap 20 (12-20) BUN 12 (9-16) mg/dL Creatinine 0.97 (0.5-1.4) mg/dL Estim Creat Clear Calc 93.1 Estimated GFR > 60 Random Glucose 108 (60-115) mg/dL Calcium 9.6 (8.4-10.2) mg/dL Total Bilirubin 0.7 (0.0-1.0) mg/dL AST 29 (5-37) U/L ALT 18 (0-40) U/L Alkaline Phosphatase 148 H (39-117) U/L Total Protein 7.3 (6.5-8.0) g/dL Albumin 4.8 (3.5-5.0) g/dL Ethyl Alcohol < 10 mg/dL Radiology Impression Discussion of test interpretation with radiology: I have reviewed the radiologist's reading. External Record Review External record reviewed: Inpatient record, Office record, Outpatient record, Prior outpatient labs, Prior outpatient radiology, Primary care record and Outside ED record Discharge Plan Discharge Clinical Impression: Schizoaffective disorder Patient Disposition: Still a Patient Prescriptions: No Action Jardiance 25 mg tablet 25 mg PO DAILY Trulicity 3 mg/0.5 mL pen injector 3 mg subcut WE@0900 gabapentin 400 mg Capsule 800 mg PO TID Qty: 90 0RF chlorpromazine 25 mg Tablet 50 mg PO BID Qty: 90 0RF olanzapine 10 mg Tablet,Disintegrating 10 mg translingual BID Qty: 60 0RF escitalopram oxalate 20 mg Tablet 20 mg PO DAILY Qty: 30 0RF lorazepam 2 mg tablet 2 mg PO TID Qty: 21 4RF atorvastatin 40 mg Tablet 40 mg PO DAILY Qty: 30 0RF metformin 1,000 mg Tablet 1,000 mg PO BID Qty: 60 0RF mirtazapine 45 mg tablet 45 mg PO BEDTIME Qty: 30 0RF metoprolol succinate 25 mg Tablet Extended Release 24 Hr 25 mg PO DAILY Qty: 30 0RF Protocol: Hold for SBP/HR < HOLD for SBP < : 90 HOLD for HR < : 60 clozapine 25 mg Tablet 250 mg PO DAILY Interventions: Schuyler-Suicide Risk Severity Scale Last Done: 08/29/24 12:59 Print Language: Tongan
[2024-08-28 12:43] VITALS: RESP 16; BMI 23.6
[2024-08-28 12:44] LABS: MANUAL DIFF FLAG NO
[2024-08-28 12:45] LABS: Basophils Absolute Auto 0.1 X10*3/uL (0.0-0.2); Basophils Percent Auto 0.6 % (0-2); Hematocrit 46.5 % (42.0-52.0); Hemoglobin 15.7 g/dl (14.0-18.0); Imm Gran Abs Auto 0.02 X10*3/uL (0.00-0.03); Imm Gran Pct Auto 0.2 % (0.0-0.4); Lymphocytes Absolute Auto 1.5 X10*3/uL (1.2-4.9); Lymphocytes Percent Auto 14.2 % (20-40); Mean Corpuscular HGB Conc 33.8 g/dl (31.0-36.0); Mean Corpuscular Hemoglobin 28.3 pg (27.0-33.0); Mean Corpuscular Volume 83.9 fL (80.0-98.0); Mean Platelet Volume 9.6 fL (9.4-12.4); Monocytes Absolute Auto 0.7 X10*3/uL (0.1-1.2); Monocytes Percent Auto 6.5 % (2-11); Neutrophils Absolute Auto 8.2 x10*3/uL (2.0-8.3); Neutrophils Percent Auto 78.5 % (45-73); Platelet Count 236 X10*3/uL (160-400); Red Blood Count 5.54 X10*6/uL (4.60-5.80); Red Cell Distribution Width 12.8 % (11.0-16.0); White Blood Count 10.4 X10*3/uL (4.8-10.8)
[2024-08-28 12:47] VITALS: RESP 16
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
--- NOTE | 2024-08-28 12:55 | PC.NURSE ---
IM medications not administered, patient did end up cooperating with casino change attendant and was able to be de-escalated verbally
[2024-08-28 13:01] LABS: Alanine Aminotransferase 18 U/L (0-40); Albumin Level 4.8 g/dL (3.5-5.0); Alkaline Phosphatase 148 U/L (39-117); Anion Gap 20 (12-20); Aspartate Amino Transferase 29 U/L (5-37); Bilirubin Total 0.7 mg/dL (0.0-1.0); Blood Urea Nitrogen 12 mg/dL (9-16); Calcium 9.6 mg/dL (8.4-10.2); Carbon Dioxide 16 mmol/L (22-29); Chloride 106 mmol/L (96-108); Creatinine Clr Calc Pharmacy 93.1; Estimated Glomerular Filt Rate > 60; Ethanol < 10 mg/dL; Glucose Random 108 mg/dL (60-115); Potassium 3.6 mmol/L (3.3-5.1); Sodium 138 mmol/L (135-145); Total Protein 7.3 g/dL (6.5-8.0)
--- NOTE | 2024-08-28 14:03 | PC.NURSE ---
RE: med rec This RN completed med rec with previous hx available from last inpt stay. Patient refusing to speak with this RN regarding medications
[2024-08-28 16:34] VITALS: BP 126/77; PULSE 104; RESP 18; TEMP 37; O2SAT 97
--- NOTE | 2024-08-28 16:56 | PC.NURSE ---
pt noted to be urinating on the floor, pt reminded that if he needs to use the bathroom to just let a staff member know and we can assist
[2024-08-28] MEDS: OLANZapine 10 MG VIAL IM (17:50)
--- NOTE | 2024-08-28 17:51 | PC.NURSE ---
Patient yelling out, screaming at times. Pt demanding medication to help him sleep, pt refusing to take PO medications. VERONICA Bui speaking with patient. patient requesting IM injection. IM given without issue
--- NOTE | 2024-08-28 18:38 | PHA.MEDREC ---
Pharmacy Consult ? Medication Reconciliation Pharmacy has reviewed the medication reconciliation completed by nursing. Utilized list from [facility] which all matched list and claims.
--- NOTE | 2024-08-28 18:42 | PC.NURSE ---
Patient appears to be sleeping at this time, respirations even and unlabored, no apparent distress noted
[2024-08-28] MEDS: LORazepam 1 MG TABLET 2 MG PO (19:14)
[2024-08-28] MEDS: metFORMIN HCl 1,000 MG TABLET 1000 MG PO (19:14)
[2024-08-28] MEDS: Gabapentin 400 MG CAPSULE 800 MG PO (19:14)
[2024-08-28] MEDS: chlorproMAZINE HCl 25 MG TABLET 50 MG PO (19:15)
[2024-08-28] MEDS: OLANZapine ODT 10 MG TAB.RAPDIS TRANSLINGU (19:15)
[2024-08-28] MEDS: Mirtazapine 15 MG TABLET 45 MG PO (19:15)
[2024-08-29 06:10] VITALS: RESP 17
--- NOTE | 2024-08-29 06:50 | PC.NURSE ---
Patient slept through the night, no distress observed/reported, 15 minutes safety check, behavior unpredictable, paranoid however, meds and meals compliant, disposition per care team is section 12 inpatient bed search, VSS, urine pending, will continue to monitor
--- NOTE | 2024-08-29 07:09 | PC.NURSE ---
Assumed care of patient at 0645, patient appears to be sleeping, respirations even and unlabored, no apparent distress this am. Continue plan of care for inpatient bedsearch
[2024-08-29] MEDS: Gabapentin 400 MG CAPSULE 800 MG PO ×2 (08:23→21:20)
[2024-08-29] MEDS: Metoprolol Succinate ER 25 MG TAB.ER.24H PO (08:23)
[2024-08-29] MEDS: chlorproMAZINE HCl 25 MG TABLET 50 MG PO ×2 (08:23→21:20)
[2024-08-29] MEDS: Atorvastatin Calcium 40 MG TABLET PO (08:23)
[2024-08-29] MEDS: LORazepam 1 MG TABLET 2 MG PO ×2 (08:23→21:21)
[2024-08-29] MEDS: metFORMIN HCl 1,000 MG TABLET 1000 MG PO ×2 (08:23→21:21)
[2024-08-29] MEDS: OLANZapine ODT 10 MG TAB.RAPDIS TRANSLINGU ×2 (08:23→21:20)
[2024-08-29] MEDS: Escitalopram Oxalate 20 MG TABLET PO (08:23)
--- NOTE | 2024-08-29 08:47 | PC.NURSE ---
RE: morning medications due to aggression with this RN, pt did not receive any morning medications, unable to undo documentation on medications
--- NOTE | 2024-08-29 08:50 | PC.NURSE ---
At approximately 0825, this RN entered pts room to give medications. Pt sat up in bed, said thank you and then proceeded to grab this RNs shirt stating I'll fucking scoop your eyes out, let me see your fucking tits . this RN attempted to get patient to let go of this RN's shirt. Pt continued to director of digital marketing, threatening this RN. attempting to grab at this RNs breasts. Pt stating Ill fucking kill you, scoop your fucking eyes out and mine . DELFIN Ray came to room, pt also grabbed at her, threatening. Pt eventually let go of both staff members. Patient then laid back down and is now resting on bed, respirations even and unlabored, no apparent distress noted. No morning medications administered due to aggression
--- NOTE | 2024-08-29 16:18 | PC.NURSE ---
Pt showered independently without issue. Now back in his room, laying down, respirations even and unlabored
--- NOTE | 2024-08-29 19:39 | PC.NURSE ---
patint appears to remain at rest at present periodic agitation expressed when approached with questions, but overall appears relaxed.
[2024-08-29] MEDS: Mirtazapine 15 MG TABLET 45 MG PO (21:21)
[2024-08-29 21:45] VITALS: BP 133/80; PULSE 89; RESP 18; TEMP 36.6; O2SAT 98
--- NOTE | 2024-08-30 07:21 | PC.NURSE ---
Care of Pt assumed at change of shift. Pt is currently resting comfortably with eye closed on bed. NAD noted at this time. Breakfast tray left at bedside.
[2024-08-30] MEDS: OLANZapine ODT 10 MG TAB.RAPDIS TRANSLINGU ×2 (09:11→21:50)
[2024-08-30] MEDS: LORazepam 1 MG TABLET 2 MG PO ×3 (09:11→21:49)
[2024-08-30] MEDS: chlorproMAZINE HCl 25 MG TABLET 50 MG PO ×2 (09:11→21:49)
[2024-08-30] MEDS: Gabapentin 400 MG CAPSULE 800 MG PO ×3 (09:11→21:50)
[2024-08-30] MEDS: Escitalopram Oxalate 20 MG TABLET PO (09:11)
--- NOTE | 2024-08-30 09:20 | PC.NURSE ---
Pt seen by Care Team Segundo this AM. Partial morning med pass completed--awaiting medications that are not available in pod pyxis. Pt is calm and cooperative. Speech is clear, concise, and even. Pt politely asks to take a shower as he reports this is helpful to managing his anxiety. Pt provided with shower necessities na dis currently showering. Will medicate Pt with remaining AM meds upon delivery from Main ED and Pharmacy.
[2024-08-30 10:14] VITALS: BP 128/81; PULSE 104
[2024-08-30] MEDS: Atorvastatin Calcium 40 MG TABLET PO (10:14)
[2024-08-30] MEDS: metFORMIN HCl 1,000 MG TABLET 1000 MG PO ×2 (10:14→21:49)
[2024-08-30] MEDS: Metoprolol Succinate ER 25 MG TAB.ER.24H PO (10:14)
[2024-08-30] MEDS: Empagliflozin 25 MG TABLET PO (10:15)
[2024-08-30 15:30] VITALS: BP 116/76; PULSE 106; RESP 18; TEMP 36.3; O2SAT 98
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
[2024-08-30] MEDS: Flu Vacc TS2024-25(6mos up)/PF 0.5 ML SYRINGE IM (17:37)
[2024-08-30 18:58] LABS: Alanine Aminotransferase 44 U/L (0-40); Albumin Level 4.9 g/dL (3.5-5.0); Alkaline Phosphatase 161 U/L (39-117); Anion Gap 17 (12-20); Aspartate Amino Transferase 32 U/L (5-37); Bilirubin Total 0.5 mg/dL (0.0-1.0); Blood Urea Nitrogen 13 mg/dL (9-16); Carbon Dioxide 28 mmol/L (22-29); Chloride 106 mmol/L (96-108); Creatinine Clr Calc Pharmacy 78.5; Estimated Glomerular Filt Rate > 60; Glucose Random 96 mg/dL (60-115); Potassium 3.9 mmol/L (3.3-5.1); Sodium 147 mmol/L (135-145); Total Protein 7.5 g/dL (6.5-8.0)
[2024-08-30 20:00] VITALS: BP 96/59; PULSE 95; RESP 16; TEMP 36.4; O2SAT 97
[2024-08-30] MEDS: Mirtazapine 15 MG TABLET 45 MG PO (21:49)
[2024-08-30] MEDS: Milk of Magnesia 30 ML ORAL.SUSP PO (21:56)
[2024-08-31 07:00] VITALS: BMI 24.7
[2024-08-31 08:28] LABS: Cholesterol 83 mg/dL (<200); HDL Cholesterol 27 mg/dL (>40); LDL Cholesterol Calculated 43 mg/dL (<100); Triglycerides 66 mg/dL (<150)
[2024-08-31 09:10] VITALS: BP 122/74; PULSE 105; RESP 16; TEMP 36.6; O2SAT 96
[2024-08-31] MEDS: Atorvastatin Calcium 40 MG TABLET PO (09:31)
[2024-08-31] MEDS: Empagliflozin 25 MG TABLET PO (09:31)
[2024-08-31] MEDS: metFORMIN HCl 1,000 MG TABLET 1000 MG PO ×2 (09:31→21:50)
[2024-08-31] MEDS: Metoprolol Succinate ER 25 MG TAB.ER.24H PO (09:31)
[2024-08-31] MEDS: Escitalopram Oxalate 20 MG TABLET PO (09:32)
[2024-08-31] MEDS: LORazepam 1 MG TABLET 2 MG PO ×3 (09:32→21:49)
[2024-08-31] MEDS: Gabapentin 400 MG CAPSULE 800 MG PO ×3 (09:32→21:49)
[2024-08-31] MEDS: chlorproMAZINE HCl 25 MG TABLET 50 MG PO ×2 (09:32→21:50)
[2024-08-31] MEDS: OLANZapine ODT 10 MG TAB.RAPDIS TRANSLINGU ×2 (09:33→21:49)
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
--- NOTE | 2024-08-31 13:15 | MHC.CLN ---
RE: CONSULT HT 5' WT 160# IBW 160#+/-10% PT IS 100% IBW INDICATES ADEQUATE WT FOR HT; BMI 23.6 WNL PREVIOUS WT HX: 72.6 (08/28/24) 86.1 KG (02/25/24) PT WITH 16% SIGNIFICANT WT LOSS X 6 MONTHS PT WITH PSYCHOSIS AND SCHIZOAFFECTIVE D/O-ADMITTED SECONDARY TO NOT TAKING MEDICATIONS AND DECOMPENSATION MAY BE CONTRIBUTORS TO WT LOSS REGULAR DIET PT EATING WELL PER NSG PLAN: MONITOR PO INTAKE CLOSELY IF PO INTAKE <25% X 3 MEALS, RECOMMEND ADDING NUTRITION SUPPLEMENT ENSURE BID
[2024-08-31] MEDS: Mirtazapine 15 MG TABLET 45 MG PO (21:48)
[2024-08-31 23:03] VITALS: BP 131/79; PULSE 94; RESP 18; TEMP 36.3; O2SAT 100
[2024-09-01 07:30] VITALS: BP 118/69; PULSE 100; RESP 14; TEMP 36.4; O2SAT 96
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
[2024-09-01] MEDS: Atorvastatin Calcium 40 MG TABLET PO (10:38)
[2024-09-01] MEDS: LORazepam 1 MG TABLET 2 MG PO ×3 (10:38→20:49)
[2024-09-01] MEDS: Gabapentin 400 MG CAPSULE 800 MG PO ×3 (10:38→20:47)
[2024-09-01] MEDS: OLANZapine ODT 10 MG TAB.RAPDIS TRANSLINGU ×2 (10:39→20:47)
[2024-09-01] MEDS: Empagliflozin 25 MG TABLET PO (10:39)
[2024-09-01] MEDS: chlorproMAZINE HCl 25 MG TABLET 50 MG PO ×2 (10:39→20:46)
[2024-09-01] MEDS: Escitalopram Oxalate 20 MG TABLET PO (10:39)
[2024-09-01] MEDS: metFORMIN HCl 1,000 MG TABLET 1000 MG PO ×2 (10:39→20:49)
[2024-09-01 10:40] VITALS: BP 113/55; PULSE 98
[2024-09-01] MEDS: Metoprolol Succinate ER 25 MG TAB.ER.24H PO (10:40)
[2024-09-01] MEDS: Mirtazapine 15 MG TABLET 45 MG PO (20:48)
[2024-09-02 09:14] VITALS: BP 113/71; PULSE 102; RESP 16; TEMP 36.4; O2SAT 97
[2024-09-02] MEDS: Metoprolol Succinate ER 25 MG TAB.ER.24H PO (09:14)
[2024-09-02] MEDS: LORazepam 1 MG TABLET 2 MG PO ×3 (09:15→20:18)
[2024-09-02] MEDS: chlorproMAZINE HCl 25 MG TABLET 50 MG PO ×2 (09:15→20:20)
[2024-09-02] MEDS: Empagliflozin 25 MG TABLET PO (09:15)
[2024-09-02] MEDS: OLANZapine ODT 10 MG TAB.RAPDIS TRANSLINGU ×2 (09:15→20:20)
[2024-09-02] MEDS: Escitalopram Oxalate 20 MG TABLET PO (09:16)
[2024-09-02] MEDS: metFORMIN HCl 1,000 MG TABLET 1000 MG PO ×2 (09:16→20:20)
[2024-09-02] MEDS: Atorvastatin Calcium 40 MG TABLET PO (09:16)
[2024-09-02] MEDS: Gabapentin 400 MG CAPSULE 800 MG PO ×3 (09:17→20:19)
--- NOTE | 2024-09-02 16:20 | HO.PSYCHPN ---
Subjective Subjective Date of Service: 09/02/24 Reason For Visit: crisis Subjective Notes: Conditional Voluntary Interim History: Pt reports he is anxious about what will happen tomorrow. He reports there are times when he does not feel safe, but asks this clinical writer not to inquire about it any further. He denies SI/HI. denies VH/AH but does appear internally preoccupied. no behavioral concerns. Review of Systems Review of Systems Yes all other systems are reviewed and are negative Constitutional: Reports as per HPI Eyes: Reports as per HPI Reports as per HPI Cardiovascular: Reports as per HPI Respiratory: Reports as per HPI Gastrointestinal: Reports as per HPI Genitourinary: Reports as per HPI Musculoskeletal: Reports as per HPI Skin/Breast: Reports as per HPI Reports as per HPI Psychiatric: Reports as per HPI Endocrine: Reports as per HPI Hematologic/Lymphatic: Reports as per HPI Allergic/Immunologic: Reports as per HPI Mental Status Exam Mental Status Exam Narrative: Pt is alert and oriented; behavior is cooperative and calm; dressed in hospital attire; mood is described as anxious ; eye contact appropriate; Speech is normal rate, volume and not pressured; thought process is organized, guarded; Thought content is on his apartment; denies SI/HI/VH/AH. Diagnostics Vital Signs (24Hr): Vital Signs - 24 hr 09/02/24 09:14 Temperature 97.6 F Pulse Rate 102 H Respiratory Rate 16 Blood Pressure 113/71 Pulse Oximetry 97 Oxygen Delivery Method Room Air BMI result Body Mass Index 24.7 Labs 08/28/24 12:41 08/30/24 18:25 Medications Medications Current Medications Acetaminophen (Acetaminophen 325 Mg Tablet) 650 mg PO Q6H PRN PRN Reason: Headache/Pain Mild Scale (1-3) Al Hydroxide/Mg Hydroxide (Magnesium Hydrox/Alum Hydrox 30 Ml Oral.Susp) 30 ml PO Q6H PRN PRN Reason: Heartburn/Nausea Atorvastatin Calcium (Atorvastatin Calcium 40 Mg Tablet) 40 mg PO DAILY [facility] Last Admin: 09/02/24 09:16 Dose: 40 mg Chlorpromazine HCl (Chlorpromazine Hcl 25 Mg Tablet) 50 mg PO BID [facility] Last Admin: 09/02/24 09:15 Dose: 50 mg Empagliflozin (Empagliflozin 25 Mg Tablet) 25 mg PO DAILY [facility] Last Admin: 09/02/24 09:15 Dose: 25 mg Escitalopram Oxalate (Escitalopram Oxalate 20 Mg Tablet) 20 mg PO DAILY [facility] Last Admin: 09/02/24 09:16 Dose: 20 mg Gabapentin (Gabapentin 400 Mg Capsule) 800 mg PO TID [facility] Last Admin: 09/02/24 15:44 Dose: 800 mg Hydroxyzine HCl (Hydroxyzine Hcl 25 Mg Tablet) 25 mg PO Q6H PRN PRN Reason: Anxiety Lorazepam (Lorazepam 1 Mg Tablet) 2 mg PO TID [facility] Last Admin: 09/02/24 15:43 Dose: 2 mg Magnesium Hydroxide (Milk Of Magnesia 30 Ml Oral.Susp) 30 ml PO DAILY PRN PRN Reason: Constipation Last Admin: 08/30/24 21:56 Dose: 30 ml Metformin HCl (Metformin Hcl 1,000 Mg Tablet) 1,000 mg PO BID [facility] Last Admin: 09/02/24 09:16 Dose: 1,000 mg Metoprolol Succinate (Metoprolol Succinate Er 25 Mg Tab.Er.24h) 25 mg PO DAILY [facility]; Protocol Last Admin: 09/02/24 09:14 Dose: 25 mg Mirtazapine (Mirtazapine 15 Mg Tablet) 45 mg PO BEDTIME [facility] Last Admin: 09/01/24 20:48 Dose: 45 mg Nicotine Polacrilex (Nicotine Polacrilex 2 Mg Gum) 4 mg BUCCAL Q2H PRN PRN Reason: Nicotine Cravings Olanzapine (Olanzapine Odt 10 Mg Tab.Rapdis) 10 mg TRANSLINGU BID [facility] Last Admin: 09/02/24 09:15 Dose: 10 mg Trazodone HCl (Trazodone Hcl 50 Mg Tablet) 50 mg PO BEDTIME MRX1 PRN PRN Reason: Insomnia Allergies Allergies Allergy/AdvReac Type Severity Reaction Status Date / Time haloperidol [From Haldol] Allergy Intermediate Agitated Verified 08/28/24 12:47 lithium Allergy Intermediate Agitated Verified 08/28/24 12:47 oxcarbazepine Allergy Unknown RASH Verified 08/28/24 12:47 [From TRILEPTAL] fluphenazine [From Prolixin] Allergy akathisia Verified 08/28/24 12:47 Assessment & Plan Assessment & Plan (1) Schizoaffective disorder: Status: Acute Code(s): F25.9 - Schizoaffective disorder, unspecified Plan Patient is a 48-year-old man with history of schizoaffective disorder who presented to ER via EMS on a section 12 due to aggressive behaviors and destroying his apartment secondary to medication noncompliance. Plan: CV 1:1 Continue home medications Encourage groups Obtain collateral Discharge planning 09/01: attending groups. showered. patient reports feeling anxious today d/t thinking about how I destroyed my apartment ; pt states he is worried about what my apartment looks like after I messed it up . denies SI/HI/VH/AH. Continue current tx plan. 09/02 continue tx. Reason for continued inpatient stay Substantial Risk for: inability to function Time Spent With Patient Time: Total time managing care of this patient today ____ minutes.
[2024-09-02 20:00] VITALS: BP 115/60; PULSE 93; RESP 16; TEMP 36.6; O2SAT 98
[2024-09-02] MEDS: Mirtazapine 15 MG TABLET 45 MG PO (20:19)
[2024-09-03 09:06] VITALS: BP 122/65; PULSE 98; RESP 14; TEMP 36.8; O2SAT 94
[2024-09-03] MEDS: metFORMIN HCl 1,000 MG TABLET 1000 MG PO ×2 (09:07→20:10)
[2024-09-03] MEDS: Gabapentin 400 MG CAPSULE 800 MG PO ×3 (09:07→20:10)
[2024-09-03] MEDS: Escitalopram Oxalate 20 MG TABLET PO (09:08)
[2024-09-03] MEDS: OLANZapine ODT 10 MG TAB.RAPDIS TRANSLINGU ×2 (09:08→20:09)
[2024-09-03] MEDS: Metoprolol Succinate ER 25 MG TAB.ER.24H PO (09:08)
[2024-09-03] MEDS: chlorproMAZINE HCl 25 MG TABLET 50 MG PO ×2 (09:09→20:10)
[2024-09-03] MEDS: Empagliflozin 25 MG TABLET PO (09:09)
[2024-09-03] MEDS: Atorvastatin Calcium 40 MG TABLET PO (09:09)
[2024-09-03] MEDS: LORazepam 1 MG TABLET 2 MG PO ×3 (09:09→20:09)
--- NOTE | 2024-09-03 11:07 | P.PNPSI_ITS ---
Subjective Subjective Date of Service: 09/03/24 Reason For Visit: crisis Interim History: Pt reports he is feeling better. He denies anxiety.. He denies SI/HI. denies VH/AH but does appear internally preoccupied. no behavioral concerns. Review of Systems Review of Systems Yes all other systems are reviewed and are negative Constitutional: Reports as per HPI Eyes: Reports as per HPI Reports as per HPI Cardiovascular: Reports as per HPI Respiratory: Reports as per HPI Gastrointestinal: Reports as per HPI Genitourinary: Reports as per HPI Musculoskeletal: Reports as per HPI Skin/Breast: Reports as per HPI Reports as per HPI Psychiatric: Reports as per HPI Endocrine: Reports as per HPI Hematologic/Lymphatic: Reports as per HPI Allergic/Immunologic: Reports as per HPI Mental Status Exam Mental Status Exam Narrative: Pt is alert and oriented; behavior is cooperative and calm; dressed in hospital attire; mood is described as anxious ; eye contact appropriate; Speech is normal rate, volume and not pressured; thought process is organized, guarded; Thought content is on his apartment; denies SI/HI/VH/AH. Diagnostics Vital Signs (24Hr): Vital Signs - 24 hr 09/02/24 20:00 09/03/24 09:06 Temperature 98 F 98.2 F Pulse Rate 93 98 Respiratory Rate 16 14 Blood Pressure 115/60 122/65 Pulse Oximetry 98 94 Oxygen Delivery Method Room Air Room Air BMI result Body Mass Index 24.7 Labs 08/28/24 12:41 08/30/24 18:25 Medications Medications Current Medications Acetaminophen (Acetaminophen 325 Mg Tablet) 650 mg PO Q6H PRN PRN Reason: Headache/Pain Mild Scale (1-3) Al Hydroxide/Mg Hydroxide (Magnesium Hydrox/Alum Hydrox 30 Ml Oral.Susp) 30 ml PO Q6H PRN PRN Reason: Heartburn/Nausea Atorvastatin Calcium (Atorvastatin Calcium 40 Mg Tablet) 40 mg PO DAILY [facility] Last Admin: 09/03/24 09:09 Dose: 40 mg Chlorpromazine HCl (Chlorpromazine Hcl 25 Mg Tablet) 50 mg PO BID [facility] Last Admin: 09/03/24 09:09 Dose: 50 mg Empagliflozin (Empagliflozin 25 Mg Tablet) 25 mg PO DAILY [facility] Last Admin: 09/03/24 09:09 Dose: 25 mg Escitalopram Oxalate (Escitalopram Oxalate 20 Mg Tablet) 20 mg PO DAILY [facility] Last Admin: 09/03/24 09:08 Dose: 20 mg Gabapentin (Gabapentin 400 Mg Capsule) 800 mg PO TID [facility] Last Admin: 09/03/24 09:07 Dose: 800 mg Hydroxyzine HCl (Hydroxyzine Hcl 25 Mg Tablet) 25 mg PO Q6H PRN PRN Reason: Anxiety Lorazepam (Lorazepam 1 Mg Tablet) 2 mg PO TID [facility] Last Admin: 09/03/24 09:09 Dose: 2 mg Magnesium Hydroxide (Milk Of Magnesia 30 Ml Oral.Susp) 30 ml PO DAILY PRN PRN Reason: Constipation Last Admin: 08/30/24 21:56 Dose: 30 ml Metformin HCl (Metformin Hcl 1,000 Mg Tablet) 1,000 mg PO BID [facility] Last Admin: 09/03/24 09:07 Dose: 1,000 mg Metoprolol Succinate (Metoprolol Succinate Er 25 Mg Tab.Er.24h) 25 mg PO DAILY [facility]; Protocol Last Admin: 09/03/24 09:08 Dose: 25 mg Mirtazapine (Mirtazapine 15 Mg Tablet) 45 mg PO BEDTIME [facility] Last Admin: 09/02/24 20:19 Dose: 45 mg Nicotine Polacrilex (Nicotine Polacrilex 2 Mg Gum) 4 mg BUCCAL Q2H PRN PRN Reason: Nicotine Cravings Olanzapine (Olanzapine Odt 10 Mg Tab.Rapdis) 10 mg TRANSLINGU BID [facility] Last Admin: 09/03/24 09:08 Dose: 10 mg Trazodone HCl (Trazodone Hcl 50 Mg Tablet) 50 mg PO BEDTIME MRX1 PRN PRN Reason: Insomnia Allergies Allergies Allergy/AdvReac Type Severity Reaction Status Date / Time haloperidol [From Haldol] Allergy Intermediate Agitated Verified 08/28/24 12:47 lithium Allergy Intermediate Agitated Verified 08/28/24 12:47 oxcarbazepine Allergy Unknown RASH Verified 08/28/24 12:47 [From TRILEPTAL] fluphenazine [From Prolixin] Allergy akathisia Verified 08/28/24 12:47 Assessment & Plan Assessment & Plan (1) Schizoaffective disorder: Status: Acute Code(s): F25.9 - Schizoaffective disorder, unspecified Plan Patient is a 48-year-old man with history of schizoaffective disorder who presented to ER via EMS on a section 12 due to aggressive behaviors and destroying his apartment secondary to medication noncompliance. Plan: CV 1:1 Continue home medications Encourage groups Obtain collateral Discharge planning 09/01: attending groups. showered. patient reports feeling anxious today d/t thinking about how I destroyed my apartment ; pt states he is worried about what my apartment looks like after I messed it up . denies SI/HI/VH/AH. Continue current tx plan. 09/02 continue tx. Reason for continued inpatient stay Substantial Risk for: inability to function Time Spent With Patient Time: Total time managing care of this patient today ____ minutes.
[2024-09-03 20:00] VITALS: BP 112/67; PULSE 100; RESP 16; TEMP 36.4; O2SAT 98
[2024-09-03] MEDS: Mirtazapine 15 MG TABLET 45 MG PO (20:09)
[2024-09-04 07:40] VITALS: BP 122/68; PULSE 103; RESP 16; TEMP 36.3; O2SAT 98
[2024-09-04] MEDS: Gabapentin 400 MG CAPSULE 800 MG PO ×3 (08:49→21:16)
[2024-09-04] MEDS: chlorproMAZINE HCl 25 MG TABLET 50 MG PO ×2 (08:49→21:16)
[2024-09-04] MEDS: metFORMIN HCl 1,000 MG TABLET 1000 MG PO ×2 (08:49→21:16)
[2024-09-04] MEDS: OLANZapine ODT 10 MG TAB.RAPDIS TRANSLINGU ×2 (08:49→21:16)
[2024-09-04] MEDS: LORazepam 1 MG TABLET 2 MG PO ×3 (08:50→21:16)
[2024-09-04] MEDS: Metoprolol Succinate ER 25 MG TAB.ER.24H PO (08:50)
[2024-09-04] MEDS: Empagliflozin 25 MG TABLET PO (08:50)
[2024-09-04] MEDS: Atorvastatin Calcium 40 MG TABLET PO (08:50)
[2024-09-04] MEDS: Escitalopram Oxalate 20 MG TABLET PO (08:50)
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
[2024-09-04 20:00] VITALS: BP 107/59; PULSE 80; RESP 16; TEMP 36.4; O2SAT 96
[2024-09-04] MEDS: Mirtazapine 15 MG TABLET 45 MG PO (21:15)
[2024-09-05 08:00] VITALS: BP 123/68; PULSE 84; RESP 16; TEMP 36.6; O2SAT 97
[2024-09-05 09:34] VITALS: BP 130/70; PULSE 88
[2024-09-05] MEDS: chlorproMAZINE HCl 25 MG TABLET 50 MG PO (09:34)
[2024-09-05] MEDS: Metoprolol Succinate ER 25 MG TAB.ER.24H PO (09:34)
[2024-09-05] MEDS: Atorvastatin Calcium 40 MG TABLET PO (09:34)
[2024-09-05] MEDS: LORazepam 1 MG TABLET 2 MG PO (09:34)
[2024-09-05] MEDS: Gabapentin 400 MG CAPSULE 800 MG PO (09:34)
[2024-09-05] MEDS: metFORMIN HCl 1,000 MG TABLET 1000 MG PO (09:34)
[2024-09-05] MEDS: OLANZapine ODT 10 MG TAB.RAPDIS TRANSLINGU (09:34)
[2024-09-05] MEDS: Empagliflozin 25 MG TABLET PO (09:35)
[2024-09-05] MEDS: Escitalopram Oxalate 20 MG TABLET PO (09:35)
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
== END 2024-09-05 11:12 | disposition home or self-care (01) | DRG 885 ==
LOC: HO.ED 17:29 → HO.PADLT16 08-30 12:34
PROVIDERS: Admitting Provider Registered Nurse; Emergency Provider Emergency Medicine Emergency Medical Services; Responsible Provider Registered Nurse; Visit Provider Psychiatry & Neurology Psychiatry
DX: F25.9 Schizoaffective disorder, unspecified (principal); E11.9 Type 2 diabetes mellitus without complications; Z91.148 Patient's other noncompliance with medication regimen for other reason; Z79.84 Long term (current) use of oral hypoglycemic drugs; Z79.85 Long-term (current) use of injectable non-insulin antidiabetic drugs; Z79.899 Other long term (current) drug therapy
CPT/HCPCS: 36415; 80053; 80061; 80307; 85025; 90656; 99285; J2359; S9485

== ENCOUNTER → 2024-08-30 12:25 | Outpatient (BNV) | payer MEDICARE, MEDICAID, SELFPAY | PROVIDERS: Admitting Provider Registered Nurse; Emergency Provider Emergency Medicine Emergency Medical Services; Responsible Provider Registered Nurse; Visit Provider Registered Nurse | DX: F25.9 Schizoaffective disorder, unspecified (principal) | CPT/HCPCS: 90792 ==

== ENCOUNTER 2024-09-05 12:34 | Emergency (ER) | payer MEDICARE, MEDICAID, SELFPAY ==
[2024-09-05] VITALS (11 sets, daily range): BP systolic 106–144; BP diastolic 70–84; PULSE 95–111; RESP 16–22; TEMP 36.6; O2SAT 95–99; BMI 28.2
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
[2024-09-05] MEDS: LORazepam 2 MG/ML VIAL IM (12:56)
[2024-09-05] MEDS: diphenhydrAMINE HCL 50 MG/ML VIAL IM (12:57)
[2024-09-05] MEDS: Haloperidol Lactate 5 MG/ML VIAL IM (12:57)
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
--- OUTSIDE RECORDS SUMMARY | 2024-09-05 16:28 | XMS_ITS | Clinical Summary ---
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 ([facility]) Active 2023-08 00:00: 00 ESSENTIAL (PRIMARY) HYPERTENSION Active 2023-08 00:00: 00 Allergies, Adverse Reactions, Alerts Allergy Name Allergy Type Status Severity Reaction(s) Onset Date Inactive Date Treating Clinician Comments LITHIUM Propensity to adverse reactions Active 2023-08 23:08: 18 PROLIXIN Propensity to adverse reactions Active 2023-08 08:04: 59 OXCARBAZEPIN E Propensity to adverse reactions Active 2023-08 23:08: 42 HALOPERIDOL DECANOATE Propensity to adverse reactions Active 2023-08 23:08: 03 Medications Ordered Medication Name Filled Medication Name Start Date Stop Date Current Medication? Ordering Clinician Indication Dosage Frequency Signature (SIG) Comments Components atorvastati n 20 mg tablet 11-28 00:00: 00 02-25 23:59 :00 No [id number] 20 mg EVERY PM 20 mg EVERY PM (route: oral) Med Classific ation: Cardiovas cular Therapy Agents benztropine 1 mg tablet 11-28 00:00: 00 10-12 23:59 :00 No [id number] 1 mg 2 TIMES DAILY 1 mg 2 TIMES DAILY (route: oral) Med Classific ation: Central Nervous System Agents clonazepam 0.5 mg tablet 11-28 00:00: 00 09-28 23:59 :00 No [id number] 0.5 mg DIRECTED 0.5 mg DIRECTED (route: oral) Med Classific ation: Central Nervous System Agents divalproex ER 500 mg tablet,exte nded release 24 hr 08 00:00: 00 01-02 23:59 :00 No [id number] 500 mg DAILY 500 mg DAILY (route: oral) Med Classific ation: Central Nervous System Agents glipizide 10 mg tablet 11-28 00:00: 00 01-02 23:59 :00 No [id number] 10 mg DAILY 10 mg DAILY (route: oral) Med Classific ation: Endocrine metformin 1,000 mg tablet 11-28 00:00: 00 Yes [id number] 1000 mg 2 TIMES DAILY 1000 mg 2 TIMES DAILY (route: oral) Med Classific ation: Endocrine metoprolol succinate ER 25 mg tablet,exte nded release 24 hr 11-28 00:00: 00 Yes [id number] 25 mg DAILY 25 mg DAILY (route: oral) Med Classific ation: Cardiovas cular Therapy Agents Vitamin D3 25 mcg (1,000 unit) capsule 11-28 00:00: 00 01-02 23:59 :00 No [id number] 1000 mcg DAILY 1000 mcg DAILY (route: oral) Med Classific ation: Electroly te Balance-N utritiona l Products hydroxyzine HCl 25 mg tablet 11-19 00:00: 00 08-21 23:59 :00 No [id number] 25 mg NEEDED 25 mg NEEDED (route: oral) Med Classific ation: Central Nervous System Agents clozapine 100 mg tablet 11-18 00:00: 00 02-25 23:59 :00 No [id number] 100 mg BEDTIME 100 mg BEDTIME (route: oral) Med Classific ation: Central Nervous System Agents gabapentin 100 mg capsule 11-18 00:00: 00 02-24 23:59 :00 No [id number] 100 capsule 3 TIMES DAILY 100 capsule 3 TIMES DAILY (route: oral) Med Classific ation: Central Nervous System Agents gabapentin 800 mg tablet 3-29 00:00: 00 Yes [id number] 800 mg 3 TIMES DAILY 800 mg 3 TIMES DAILY (route: oral) Med Classific ation: Central Nervous System Agents lorazepam 1 mg tablet 3-25 00:00: 00 10-12 23:59 :00 No [id number] 1 mg DIRECTED 1 mg DIRECTED (route: oral) Med Classific ation: Central Nervous System Agents trazodone 100 mg tablet -19 00:00: 00 08-21 23:59 :00 No [id number] 100 mg BEDTIME 100 mg BEDTIME (route: oral) Med Classific ation: Central Nervous System Agents Vitamin D3 25 mcg (1,000 unit) capsule 11-06 00:00: 00 01-02 23:59 :00 No [id number] 1000 capsule DAILY 1000 capsule DAILY (route: oral) Med Classific ation: Electroly te Balance-N utritiona l Products clonazepam 1 mg tablet 01-02 00:00: 00 10-12 23:59 :00 No [id number] 1 mg 2 TIMES DAILY 1 mg 2 TIMES DAILY (route: oral) Med Classific ation: Central Nervous System Agents Depakote ER 250 mg tablet,exte nded release 01-02 00:00: 00 02-25 23:59 :00 No [id number] 250 mg 2 TIMES DAILY 250 mg 2 TIMES DAILY (route: oral) Med Classific ation: Central Nervous System Agents glipizide 5 mg tablet 01-02 00:00: 00 02-23 23:59 :00 No [id number] 5 mg DAILY 5 mg DAILY (route: oral) Med Classific ation: Endocrine mirtazapine 15 mg tablet 01-02 00:00: 00 10-12 23:59 :00 No [id number] 15 mg BEDTIME 15 mg BEDTIME (route: oral) Med Classific ation: Central Nervous System Agents quetiapine 50 mg tablet 5-13 00:00: 00 08-21 23:59 :00 No [id number] 50 mg NEEDED 50 mg NEEDED (route: oral) Med Classific ation: Central Nervous System Agents glipizide 10 mg tablet 7-12 00:00: 00 04-23 23:59 :00 No [id number] 10 mg DAILY 10 mg DAILY (route: oral) Med Classific ation: Endocrine Trulicity 0.75 mg/0.5 mL subcutaneou s pen injector 9-10 00:00: 00 Yes [id number] 0.75 mg WEEKLY 0.75 mg WEEKLY (route: subcutaneo us) Med Classific ation: Endocrine Jardiance 25 mg tablet 09-28 00:00: 00 Yes [id number] 25 mg DAILY 25 mg DAILY (route: oral) Med Classific ation: Endocrine Tums 200 mg calcium (500 mg) chewable tablet 09-28 00:00: 00 02-23 23:59 :00 No [id number] 200 mg DIRECTED 200 mg DIRECTED (route: oral) Med Classific ation: Gastroint estinal Therapy Agents Tylenol 325 mg tablet - 00:00: 00 04-21 23:59 :00 No [id number] 325 mg DIRECTED 325 mg DIRECTED (route: oral) Med Classific ation: Analgesic , Anti-infl ammatory or Antipyret ic Vitamin D3 25 mcg (1,000 unit) tablet 09-28 00:00: 00 08-16 23:59 :00 No [id number] 25 mcg DAILY 25 mcg DAILY (route: oral) Med Classific ation: Electroly te Balance-N utritiona l Products benztropine 1 mg tablet 20 00:00: 00 Yes [id number] 1 mg 2 TIMES DAILY 1 mg 2 TIMES DAILY (route: oral) Med Classific ation: Central Nervous System Agents clonazepam 1 mg tablet -20 00:00: 00 02-24 23:59 :00 No [id number] 1 mg 3 TIMES DAILY 1 mg 3 TIMES DAILY (route: oral) Med Classific ation: Central Nervous System Agents mirtazapine 45 mg tablet 2-20 00:00: 00 02-25 23:59 :00 No [id number] 45 mg BEDTIME 45 mg BEDTIME (route: oral) Med Classific ation: Central Nervous System Agents mirtazapine 15 mg tablet 02-25 00:00: 00 08-22 23:59 :00 No 15 mg BEDTIME 15 mg BEDTIME (route: oral) Med Classific ation: Central Nervous System Agents atorvastati n 40 mg tablet 02-24 00:00: 00 Yes 40 mg BEDTIME 40 mg BEDTIME (route: oral) Med Classific ation: Cardiovas cular Therapy Agents clozapine 100 mg tablet 02-24 00:00: 00 06-27 23:59 :00 No 100 mg BEDTIME 100 mg BEDTIME (route: oral) Med Classific ation: Central Nervous System Agents polyethylen e glycol 3350 8.5 gram oral powder packet 02-24 00:00: 00 08-21 23:59 :00 No 17 g EVERY AM 17 g EVERY AM (route: oral) Med Classific ation: Gastroint estinal Therapy Agents Senna Plus 8.6 mg-50 mg tablet 02-24 00:00: 00 08-21 23:59 :00 No 8.6 mg EVERY AM 8.6 mg EVERY AM (route: oral) Med Classific ation: Gastroint estinal Therapy Agents Clozaril 25 mg tablet 2023-08 00:00: 00 07-04 23:59 :00 No 25 mg BEDTIME 25 mg BEDTIME (route: oral) Med Classific ation: Central Nervous System Agents chlorpromaz ine 50 mg tablet 08-26 00:00: 00 Yes 50 mg 2 TIMES DAILY 50 mg 2 TIMES DAILY (route: oral) Med Classific ation: Central Nervous System Agents escitalopra m 20 mg tablet 08-26 00:00: 00 Yes 20 mg DAILY 20 mg DAILY (route: oral) Med Classific ation: Central Nervous System Agents lorazepam 2 mg tablet 08-26 00:00: 00 Yes 2 mg 3 TIMES DAILY 2 mg 3 TIMES DAILY (route: oral) Med Classific ation: Central Nervous System Agents mirtazapine 45 mg tablet 08-26 00:00: 00 Yes 45 mg BEDTIME 45 mg BEDTIME (route: oral) Med Classific ation: Central Nervous System Agents olanzapine 10 mg disintegrat ing tablet 08-26 00:00: 00 Yes 10 mg 2 TIMES DAILY 10 mg 2 TIMES DAILY (route: oral) Med Classific ation: Central Nervous System Agents Vital Signs Vital Name Observation Time Observation Value Commen ts Temperature 2024-08-28 23:45:00.000 97.9 [degF] Temperature 2024-08-27 08:25:00.000 98 [degF] Temperature 2024-08-26 06:49:00.000 98 [degF] Plan of Treatment Planned Activity Planned Date Details Comments Future Scheduled Test SKILLED NU RSE TO EVALUATE PATIENT, IDENTIFY PRIMARY AND CO-MORBID CONDITIONS CODED PER CODING GUIDELINES, AND DEVELOP PATIENT SPECIFIC PLAN OF CARE THAT INCLUDES PATIENT GOAL FOR HOME HEALTH. [code = SKILLED NURSE TO EVALUATE PATIENT, IDENTIFY PRIMARY AND CO-MORBID CONDITIONS CODED PER CODING GUIDELINES, AND DEVELOP PATIENT SPECIFIC PLAN OF CARE THAT INCLUDES PATIENT GOAL FOR HOME HEALTH.] Future Scheduled Test SKILLED NU RSE TO PERFORM HOME SAFETY AND FALL ASSESSMENT AND PROVIDE INSTRUCTION TO IMPLEMENT HOME SAFETY AND FALL PREVENTION STRATEGIES. [code = SKILLED NURSE TO PERFORM HOME SAFETY AND FALL ASSESSMENT AND PROVIDE INSTRUCTION TO IMPLEMENT HOME SAFETY AND FALL PREVENTION STRATEGIES.] Future Scheduled Test PATIENT WILLIAM S A RISK OF HOSPITALIZATION AND ED USE. SKILLED NURSE TO ESTABLISH SUPPORT MEASURES TO MINIMIZE RISK OF HOSPITALIZATION AND ED USE, AND INSTRUCT PATIENT/CAREGIVER ON METHODS TO REDUCE AVOIDABLE HOSPITALIZATION AND ED USE. [code = PATIENT HAS A RISK OF HOSPITALIZATION AND ED USE. SKILLED NURSE TO ESTABLISH SUPPORT MEASURES TO MINIMIZE RISK OF HOSPITALIZATION AND ED USE, AND INSTRUCT PATIENT/CAREGIVER ON METHODS TO REDUCE AVOIDABLE HOSPITALIZATION AND ED USE.] Future Scheduled Test SKILLED NU RSE TO PROVIDE INSTRUCTION TO PATIENT/CAREGIVER RELATED TO DISCHARGE PLANNING. [code = SKILLED NURSE TO PROVIDE INSTRUCTION TO PATIENT/CAREGIVER RELATED TO DISCHARGE PLANNING.] Future Scheduled Test SKILLED NU RSE TO O/A OF PATIENTS MENTAL/BEHAVIORAL STATUS, ASSESS VITAL SIGNS DAILY [code = SKILLED NURSE TO O/A OF PATIENTS MENTAL/BEHAVIORAL STATUS, ASSESS VITAL SIGNS DAILY ] Future Scheduled Test CLINICAL S UMMARY (SOC/RECERT, 10 DAY, 60 DAY): THE PATIENT IS RECEIVING HOMECARE DUE TO NEW ONSET/EXACERBATION OF: YES RECENT HOSPITALIZATION/INPATIENT ADMISSION RELATED TO: YES NEW OR CHANGED MEDICATIONS PERTINENT TO THE PLAN OF CARE: NO PATIENT LIVING SITUATION/CAREGIVER STATUS: WITHIN ROMATE SUMMARIZE SKILLED NEED: MEDICATION MANAGEMENT, VITAL SIGN ASSESSMENT, MENTAL STATUS ASSESSMENT AND DIAGNOSIS MANAGEMENT [code = CLINICAL SUMMARY (SOC/RECERT, 10 DAY, 60 DAY): THE PATIENT IS RECEIVING HOMECARE DUE TO NEW ONSET/EXACERBATION OF: YES RECENT HOSPITALIZATION/INPATIENT ADMISSION RELATED TO: YES NEW OR CHANGED MEDICATIONS PERTINENT TO THE PLAN OF CARE: NO PATIENT LIVING SITUATION/CAREGIVER STATUS: WITHIN ROMATE SUMMARIZE SKILLED NEED: MEDICATION MANAGEMENT, VITAL SIGN ASSESSMENT, MENTAL STATUS ASSESSMENT AND DIAGNOSIS MANAGEMENT ] Future Scheduled Test SKILLED NU RSE WILL MAINTAIN SITUATIONAL AWARENESS FOR SAFETY AND WILL NOTIFY CLINICAL APPRENTICE PATTERN MAKER AND PHYSICIAN/PROVIDER WITH ANY CHANGE IN CONDITION. [code = SKILLED NURSE WILL MAINTAIN SITUATIONAL AWARENESS FOR SAFETY AND WILL NOTIFY CLINICAL APPRENTICE PATTERN MAKER AND PHYSICIAN/PROVIDER WITH ANY CHANGE IN CONDITION.] Future Scheduled Test SKILLED NU RSE TO REVIEW PATIENT MEDICATIONS. INSTRUCT PATIENT/CAREGIVER ON MONITORING OF EFFECTIVENESS, ADVERSE DRUG REACTIONS, SIDE EFFECTS OF ALL MEDICATIONS (PRESCRIPTION/-OTC), AND HOW AND WHEN TO REPORT PROBLEMS. [code = SKILLED NURSE TO REVIEW PATIENT MEDICATIONS. INSTRUCT PATIENT/CAREGIVER ON MONITORING OF EFFECTIVENESS, ADVERSE DRUG REACTIONS, SIDE EFFECTS OF ALL MEDICATIONS (PRESCRIPTION/-OTC), AND HOW AND WHEN TO REPORT PROBLEMS.] Future Scheduled Test SKILLED NU RSE TO ADMINISTER MEDICATIONS DAILY AND PRE-POUR MEDICATIONS TILL NEXT ALF VISIT PER MEDICATION LIST. [code = SKILLED NURSE TO ADMINISTER MEDICATIONS DAILY AND PRE-POUR MEDICATIONS TILL NEXT ALF VISIT PER MEDICATION LIST.] Future Scheduled Test SKILLED NU RSE FOR ADMINISTRATION AND TEACHING OF PRESCRIBED INJECTION THERAPY FOR TRULICITY [code = SKILLED NURSE FOR ADMINISTRATION AND TEACHING OF PRESCRIBED INJECTION THERAPY FOR TRULICITY ] Future Scheduled Test SKILLED NU RSE FOR O/A AND SKILLED TEACHING RELATED TO MANAGEMENT OF DEPRESSIVE SYMPTOMS AND/OR DEPRESSION. SN TO REPORT SIGNIFICANT CHANGE IN DEPRESSIVE SYMPTOMS TO CLINICAL PROVIDER FOR EARLY INTERVENTION. [code = SKILLED NURSE FOR O/A AND SKILLED TEACHING RELATED TO MANAGEMENT OF DEPRESSIVE SYMPTOMS AND/OR DEPRESSION. SN TO REPORT SIGNIFICANT CHANGE IN DEPRESSIVE SYMPTOMS TO CLINICAL PROVIDER FOR EARLY INTERVENTION.] Future Scheduled Test SKILLED NU RSE FOR O/A OF ALTERED THOUGHT PROCESS AND/OR DISRUPTION IN COGNITIVE OPERATIONS AND ACTIVITIES [code = SKILLED NURSE FOR O/A OF ALTERED THOUGHT PROCESS AND/OR DISRUPTION IN COGNITIVE OPERATIONS AND ACTIVITIES ] Future Scheduled Test SKILLED NU RSE TO ASSESS PATIENTS PSYCHOSOCIAL STATUS TO IDENTIFY POTENTIAL ISSUES THAT MAY COMPLICATE THE PROVISION OF THE PLAN OF CARE INCLUDING THE PATIENTS ABILITY TO ACCESS COMMUNITY RESOURCES AND PSYCHOSOCIAL SUPPORT SERVICES. [code = SKILLED NURSE TO ASSESS PATIENTS PSYCHOSOCIAL STATUS TO IDENTIFY POTENTIAL ISSUES THAT MAY COMPLICATE THE PROVISION OF THE PLAN OF CARE INCLUDING THE PATIENTS ABILITY TO ACCESS COMMUNITY RESOURCES AND PSYCHOSOCIAL SUPPORT SERVICES.] Future Scheduled Test SKILLED NU RSE FOR O/A OF CLIENT'S SOCIAL ISOLATION AND PROVIDE ASSISTANCE TO CLIENT IN DEVELOPMENT OF PLANNED ACTIVITIES [code = SKILLED NURSE FOR O/A OF CLIENT'S SOCIAL ISOLATION AND PROVIDE ASSISTANCE TO CLIENT IN DEVELOPMENT OF PLANNED ACTIVITIES] Future Scheduled Test MEDICATION S WILL BE HELD AND STORED IN LOCKBOX [code = MEDICATIONS WILL BE HELD AND STORED IN LOCKBOX] Goal 2024-08-21 Patient Goal - TAKING MY MED S Goal Patient Goal - TAKING MY MED S Goal Provider Goal - A PLAN OF CARE WILL BE ESTABLISHED THAT MEETS PATIENT'S ALF NEEDS AND INCLUDES PATIENT GOAL FOR HOME HEALTH. Goal Provider Goal - PATIENT/CAREGIVER WILL VERBALIZE/DEMONSTRATE EFFECTIVE HOME SAFETY AND FALL PREVENTION STRATEGIES THROUGHOUT CERTIFICATION PERIOD. Goal Provider Goal - PATIENT WILL HAVE SUPPORT MEASURES ESTABLISHED TO PREVENT HOSPITALIZATION AND ED USE AND PATIENT/CAREGIVER WILL VERBALIZE/DEMONSTRATE METHODS TO REDUCE AVOIDABLE HOSPITALIZATION AND ED USE BY END OF EPISODE. Goal Provider Goal - PATIENT/CAREGIVER WILL VERBALIZE UNDERSTANDING OF DISCHARGE PLANNING INSTRUCTIONS BY DATE OF DISCHARGE. Goal Provider Goal - ALTERED MENTAL/BEHAVIORAL STATUS WILL BE IDENTIFIED PROMPTLY AND INTERVENTION INITIATED QUICKLY TO MINIMIZE ASSOCIATED RISKS THROUGHOUT CERTIFICATION PERIOD. Goal Provider Goal - PATIENT WILL REMAIN SAFE, FREE FROM HOSPITALIZATION, AND ADHERE TO THE SKILLED NURSES PLAN OF CARE THROUGHOUT THE CERTIFICATION PERIOD. Goal Provider Goal - PATIENT WILL REMAIN SAFE IN THE COMMUNITY AND WILL BE FREE OF DANGER TO SELF AND OTHERS THROUGHOUT THE CERTIFICATION PERIOD. Goal Provider Goal - PATIENT/CAREGIVER WILL VERBALIZE UNDERSTANDING OF EDUCATION PROVIDED ON MEDICATIONS BY THE END OF THE CERTIFICATION PERIOD. Goal Provider Goal - PATIENT WILL COMPLY WITH MEDICATION WHEN SKILLED NURSE ADMINISTERS AND PRE-POURS MEDICATION THROUGHOUT CERTIFICATION PERIOD. Goal Provider Goal - PATIENT WILL RECEIVE TRULICITY ORDERED. PATIENT/CAREGIVER WILL VERBALIZE/DEMONSTRATE KNOWLEDGE OF INJECTION THERAPY BY THE END OF THE CERTIFICATION PERIOD. Goal Provider Goal - PATIENT WILL REMAIN SAFE WITHOUT DECOMPENSATION IN DEPRESSIVE CONDITION, WHILE MAINTAINING OPTIMAL LEVEL OF MENTAL HEALTH AND WELL BEING THROUGHOUT CERTIFICATION PERIOD. Goal Provider Goal - PATIENT WILL BE ABLE TO PERFORM DAILY FUNCTIONS AND HAVE OPTIMAL IMPROVEMENT IN THOUGHT PROCESS THROUGHOUT CERTIFICATION PERIOD. Goal Provider Goal - PSYCHOSOCIAL NEEDS WILL BE IDENTIFIED AND PLAN IMPLEMENTED TO MINIMIZE RISK THROUGHOUT CERTIFICATION PERIOD. Goal Provider Goal - PATIENT WILL DEMONSTRATE AN INCREASED INTEREST IN SOCIALIZATION AND ACTIVITIES BY THE END OF THE CERTIFICATION PERIOD. Goal Provider Goal - MEDICATION WILL BE STORED IN LOCKBOX FOR SAFETY. Encounters Start Date/Time End Date/Time Encounter Type Admission Type Attending [facility] Care Department Encounter ID Discharge Date Discharge Status Discharge Condition Discharge Reason Percent Goals Met 2024-06-27 00:00:00 2024-10-24 00:00:00 Outpatient RECERTIFIC ATION JONATAN TIM [facility] [id number] 4.17
--- OUTSIDE RECORDS SUMMARY | 2024-09-05 16:28 | XMS_ITS | Clinical Summary ---
Author Organization Unknown Care Team Providers Care Data Warehouse Developer Name Role Phone JONAH MOBLEY, WALTER Unavailable Unavailab torres TIM RN, JONATAN Unavailable Unavailable Payers Payer Name Policy Type Policy Number Effective Date Expira tion Date ON DEMAND MEDICARE - NGS MA BILLING - ABN [id number] [place] [id number] Problems Condition Name Condition Details Condition Category [...] 11-28 00:00: 00 02-25 23:59 :00 No [id number] 20 mg EVERY PM 20 mg EVERY PM (route: oral) Med Classific ation: Cardiovas cular Therapy Agents benztropine 1 mg tablet 11-28 00:00: 00 10-12 23:59 :00 No [id number] 1 mg 2 TIMES DAILY 1 mg 2 TIMES DAILY (route: oral) Med Classific ation: Central Nervous System Agents clonazepam 0.5 mg tablet 11-28 00:00: 00 09-28 23:59 :00 No [id number] 0.5 mg DIRECTED 0.5 mg DIRECTED (route: oral) Med Classific ation: Central Nervous System Agents divalproex ER 500 mg tablet,exte nded release 24 hr 08 00:00: 00 01-02 23:59 :00 No [id number] 500 mg DAILY 500 mg DAILY (route: oral) Med Classific ation: Central Nervous System Agents glipizide 10 mg tablet 11-28 00:00: 00 01-02 23:59 :00 No [id number] 10 mg DAILY 10 mg DAILY (route: oral) Med Classific ation: Endocrine metformin 1,000 mg tablet 11-28 00:00: 00 Yes [id number] 1000 mg 2 TIMES DAILY 1000 mg 2 TIMES DAILY (route: oral) Med Classific ation: Endocrine metoprolol succinate ER 25 mg tablet,exte nded release 24 hr 11-28 00:00: 00 Yes [id number] 25 mg DAILY 25 mg DAILY (route: oral) Med Classific ation: Cardiovas cular Therapy Agents Vitamin D3 25 mcg (1,000 unit) capsule 11-28 00:00: 00 01-02 23:59 :00 No [id number] 1000 mcg DAILY 1000 mcg DAILY (route: oral) Med Classific ation: Electroly te Balance-N utritiona l Products hydroxyzine HCl 25 mg tablet 11-19 00:00: 00 08-21 23:59 :00 No [id number] 25 mg NEEDED 25 mg NEEDED (route: oral) Med Classific ation: Central Nervous System Agents clozapine 100 mg tablet 11-18 00:00: 00 02-25 23:59 :00 No [id number] 100 mg BEDTIME 100 mg BEDTIME (route: oral) Med Classific ation: Central Nervous System Agents gabapentin 100 mg capsule 11-18 00:00: 00 02-24 23:59 :00 No [id number] 100 capsule 3 TIMES DAILY 100 capsule 3 TIMES DAILY (route: oral) Med Classific ation: Central Nervous System Agents gabapentin 800 mg tablet 3-29 00:00: 00 Yes [id number] 800 mg 3 TIMES DAILY 800 mg 3 TIMES DAILY (route: oral) Med Classific ation: Central Nervous System Agents lorazepam 1 mg tablet 3-25 00:00: 00 10-12 23:59 :00 No [id number] 1 mg DIRECTED 1 mg DIRECTED (route: oral) Med Classific ation: Central Nervous System Agents trazodone 100 mg tablet -19 00:00: 00 08-21 23:59 :00 No [id number] 100 mg BEDTIME 100 mg BEDTIME (route: oral) Med Classific ation: Central Nervous System Agents Vitamin D3 25 mcg (1,000 unit) capsule 11-06 00:00: 00 01-02 23:59 :00 No [id number] 1000 capsule DAILY 1000 capsule DAILY (route: oral) Med Classific ation: Electroly te Balance-N utritiona l Products clonazepam 1 mg tablet 01-02 00:00: 00 10-12 23:59 :00 No [id number] 1 mg 2 TIMES DAILY 1 mg 2 TIMES DAILY (route: oral) Med Classific ation: Central Nervous System Agents Depakote ER 250 mg tablet,exte nded release 01-02 00:00: 00 02-25 23:59 :00 No [id number] 250 mg 2 TIMES DAILY 250 mg 2 TIMES DAILY (route: oral) Med Classific ation: Central Nervous System Agents glipizide 5 mg tablet 01-02 00:00: 00 02-23 23:59 :00 No [id number] 5 mg DAILY 5 mg DAILY (route: oral) Med Classific ation: Endocrine mirtazapine 15 mg tablet 01-02 00:00: 00 10-12 23:59 :00 No [id number] 15 mg BEDTIME 15 mg BEDTIME (route: oral) Med Classific ation: Central Nervous System Agents quetiapine 50 mg tablet 5-13 00:00: 00 08-21 23:59 :00 No [id number] 50 mg NEEDED 50 mg NEEDED (route: oral) Med Classific ation: Central Nervous System Agents glipizide 10 mg tablet 7-12 00:00: 00 04-23 23:59 :00 No [id number] 10 mg DAILY 10 mg DAILY (route: oral) Med Classific ation: Endocrine Trulicity 0.75 mg/0.5 mL subcutaneou s pen injector 9-10 00:00: 00 Yes [id number] 0.75 mg WEEKLY 0.75 mg WEEKLY (route: subcutaneo us) Med Classific ation: Endocrine Jardiance 25 mg tablet 09-28 00:00: 00 Yes [id number] 25 mg DAILY 25 mg DAILY (route: oral) Med Classific ation: Endocrine Tums 200 mg calcium (500 mg) chewable tablet 09-28 00:00: 00 02-23 23:59 :00 No [id number] 200 mg DIRECTED 200 mg DIRECTED (route: oral) Med Classific ation: Gastroint estinal Therapy Agents Tylenol 325 mg tablet - 00:00: 00 04-21 23:59 :00 No [id number] 325 mg DIRECTED 325 mg DIRECTED (route: oral) Med Classific ation: Analgesic , Anti-infl ammatory or Antipyret ic Vitamin D3 25 mcg (1,000 unit) tablet 09-28 00:00: 00 08-16 23:59 :00 No [id number] 25 mcg DAILY 25 mcg DAILY (route: oral) Med Classific ation: Electroly te Balance-N utritiona l Products benztropine 1 mg tablet 20 00:00: 00 Yes [id number] 1 mg 2 TIMES DAILY 1 mg 2 TIMES DAILY (route: oral) Med Classific ation: Central Nervous System Agents clonazepam 1 mg tablet -20 00:00: 00 02-24 23:59 :00 No [id number] 1 mg 3 TIMES DAILY 1 mg 3 TIMES DAILY (route: oral) Med Classific ation: Central Nervous System Agents mirtazapine 45 mg tablet 2-20 00:00: 00 02-25 23:59 :00 No [id number] 45 mg BEDTIME 45 mg BEDTIME (route: [...] AWARENESS FOR SAFETY AND WILL NOTIFY CLINICAL VIDEOGRAPHER AND PHYSICIAN/PROVIDER WITH ANY CHANGE IN CONDITION. [code = SKILLED NURSE WILL MAINTAIN SITUATIONAL AWARENESS FOR SAFETY AND WILL NOTIFY CLINICAL VIDEOGRAPHER AND PHYSICIAN/PROVIDER WITH ANY CHANGE IN CONDITION.] [...] MEDICATIONS DAILY AND PRE-POUR MEDICATIONS TILL NEXT RESIDENTIAL VISIT PER MEDICATION LIST. [code = SKILLED NURSE TO ADMINISTER MEDICATIONS DAILY AND PRE-POUR MEDICATIONS TILL NEXT RESIDENTIAL VISIT PER MEDICATION LIST.] Future Scheduled Test [...] CARE WILL BE ESTABLISHED THAT MEETS PATIENT'S RESIDENTIAL NEEDS AND INCLUDES PATIENT GOAL FOR HOME [...] End Date/Time Encounter Type Admission Type Attending [facility] [place] Care Department Encounter ID Discharge Date Discharge Status Discharge Condition Discharge Reason Percent Goals Met 2024-06-27 00:00:00 2024-10-24 00:00:00 Outpatient RECERTIFIC ATION JONATAN TIM [facility] [id number] 4.17
[2024-09-06 00:41] LABS: Glucose, Whole Blood 92 mg/dL (60-115)
[2024-09-06 02:40] LABS: Glucose, Whole Blood 93 mg/dL (60-115)
--- NOTE | 2024-09-06 03:24 | PC.NURSE ---
PT continues to sleeping. respirations even and unlabored. Labs not drawn however Dr. Lara ok with allowing pt to continue to sleep and defer labs until the morning.
--- NOTE | 2024-09-06 06:04 | PC.NURSE ---
Assumed care of pt 1845. PT remained in bed for the entire shift. PMH of diabetes noted, and pt pale and shaky, TW completed POC checks which were both WNL. Pt declined food or drinks. Lab work not drawn on arrival and provider made aware. Ordered to not wake PT for labs and to wait until he wakes up. Safety checks remain in place. Plan of care ongoing
--- NOTE | 2024-09-06 06:09 | PC.NURSE ---
PMH of non insulin dependent diabetes noted, and pt noted to pale and shaky during TW completed POC checks which were both WNL. Pt declined food or drinks. Safety checks remain in place. Plan of care ongoing Med rec completed to the best of tw abililty based on medical record. PT unaware of his medications and dosages
[2024-09-06 06:17] VITALS: RESP 16
--- NOTE | 2024-09-06 06:50 | PC.NURSE ---
pt screaming fcuk you and other profanities in his room while laying down, unprovoked
--- NOTE | 2024-09-06 09:33 | MHC.CARE ---
CARE Team received a call from Nereida Campos [facility] bulk plant supervisor, t/w updated that Pt has been psychiatrically cleared for last evenign by the CARE Team for discharge after case consultation with ED provider, attending provider on the inpatient unit, and ED psychiatric provider.
[2024-09-06 10:12] VITALS: BP 106/70; PULSE 97; RESP 16; TEMP 36.6; O2SAT 95
== END 2024-09-06 10:13 | disposition home or self-care (01) ==
PROVIDERS: Emergency Provider Emergency Medicine
DX: F25.9 Schizoaffective disorder, unspecified (principal); R45.1 Restlessness and agitation; F41.9 Anxiety disorder, unspecified; E11.9 Type 2 diabetes mellitus without complications; Z79.85 Long-term (current) use of injectable non-insulin antidiabetic drugs; Z79.02 Long term (current) use of antithrombotics/antiplatelets; Z79.84 Long term (current) use of oral hypoglycemic drugs; Z79.899 Other long term (current) drug therapy
CPT/HCPCS: 82947; 96372; 99284; 99285; J1200; J1630; J2060; S9485

== ENCOUNTER 2024-09-06 11:10 | Emergency (ER) | payer MEDICARE, MEDICAID, SELFPAY ==
[2024-09-06 11:16] VITALS: BP 128/78; BP 158/86; PULSE 118; PULSE 119; RESP 18; TEMP 36.6; O2SAT 97; O2SAT 98; BMI 27.1
[2024-09-06] MEDS: LORazepam 1 MG TABLET 2 MG PO (11:36)
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
[2024-09-06 11:59] LABS: MANUAL DIFF FLAG NO
[2024-09-06 12:03] LABS: Basophils Absolute Auto 0.1 X10*3/uL (0.0-0.2); Basophils Percent Auto 0.5 % (0-2); Hematocrit 49.4 % (42.0-52.0); Hemoglobin 15.6 g/dl (14.0-18.0); Imm Gran Abs Auto 0.04 X10*3/uL (0.00-0.03); Imm Gran Pct Auto 0.4 % (0.0-0.4); Lymphocytes Absolute Auto 1.3 X10*3/uL (1.2-4.9); Lymphocytes Percent Auto 12.1 % (20-40); Mean Corpuscular HGB Conc 31.6 g/dl (31.0-36.0); Mean Corpuscular Hemoglobin 28.1 pg (27.0-33.0); Mean Platelet Volume 9.3 fL (9.4-12.4); Monocytes Absolute Auto 0.5 X10*3/uL (0.1-1.2); Monocytes Percent Auto 4.9 % (2-11); Neutrophils Absolute Auto 8.7 x10*3/uL (2.0-8.3); Neutrophils Percent Auto 82.1 % (45-73); Platelet Count 254 X10*3/uL (160-400); Red Blood Count 5.55 X10*6/uL (4.60-5.80); White Blood Count 10.6 X10*3/uL (4.8-10.8)
--- NOTE | 2024-09-06 12:04 | MHC.CARE ---
CARE Team left for VM for [facility] [phone]
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
[2024-09-06 12:23] LABS: Alanine Aminotransferase 45 U/L (0-40); Albumin Level 4.7 g/dL (3.5-5.0); Alkaline Phosphatase 150 U/L (39-117); Anion Gap 17 (12-20); Aspartate Amino Transferase 42 U/L (5-37); Bilirubin Total 0.6 mg/dL (0.0-1.0); Blood Urea Nitrogen 15 mg/dL (9-16); Calcium 9.3 mg/dL (8.4-10.2); Carbon Dioxide 26 mmol/L (22-29); Chloride 108 mmol/L (96-108); Creatinine Clr Calc Pharmacy 82.3; Estimated Glomerular Filt Rate > 60; Glucose Random 176 mg/dL (60-115); Potassium 4.3 mmol/L (3.3-5.1); Sodium 147 mmol/L (135-145); Total Protein 7.3 g/dL (6.5-8.0)
[2024-09-06] MEDS: OLANZapine ODT 10 MG TAB.RAPDIS 20 MG TRANSLINGU (13:01)
--- OUTSIDE RECORDS SUMMARY | 2024-09-06 13:36 | XMS_ITS | Clinical Summary ---
Author Organization Unknown Care Team Providers Care Asphalt Heater Tender Name Role Phone JONAH MOBLEY, WALTER Unavailable Unavailab torres TIM RN, JONATAN Unavailable Unavailable Payers Payer Name Policy Type Policy Number Effective Date Expira tion Date ON DEMAND MEDICARE - [place] BILLING - ABN [id number] [place] [id number] Problems Condition Name Condition Details Condition Category [...] 11-28 00:00: 00 02-25 23:59 :00 No [id number] 20 mg EVERY PM 20 mg EVERY PM (route: oral) Med Classific ation: Cardiovas cular Therapy Agents benztropine 1 mg tablet 11-28 00:00: 00 10-12 23:59 :00 No [id number] 1 mg 2 TIMES DAILY 1 mg 2 TIMES DAILY (route: oral) Med Classific ation: Central Nervous System Agents clonazepam 0.5 mg tablet 11-28 00:00: 00 09-28 23:59 :00 No [id number] 0.5 mg DIRECTED 0.5 mg DIRECTED (route: oral) Med Classific ation: Central Nervous System Agents divalproex ER 500 mg tablet,exte nded release 24 hr 08 00:00: 00 01-02 23:59 :00 No [id number] 500 mg DAILY 500 mg DAILY (route: oral) Med Classific ation: Central Nervous System Agents glipizide 10 mg tablet 11-28 00:00: 00 01-02 23:59 :00 No [id number] 10 mg DAILY 10 mg DAILY (route: oral) Med Classific ation: Endocrine metformin 1,000 mg tablet 11-28 00:00: 00 Yes [id number] 1000 mg 2 TIMES DAILY 1000 mg 2 TIMES DAILY (route: oral) Med Classific ation: Endocrine metoprolol succinate ER 25 mg tablet,exte nded release 24 hr 11-28 00:00: 00 Yes [id number] 25 mg DAILY 25 mg DAILY (route: oral) Med Classific ation: Cardiovas cular Therapy Agents Vitamin D3 25 mcg (1,000 unit) capsule 11-28 00:00: 00 01-02 23:59 :00 No [id number] 1000 mcg DAILY 1000 mcg DAILY (route: oral) Med Classific ation: Electroly te Balance-N utritiona l Products hydroxyzine HCl 25 mg tablet 11-19 00:00: 00 08-21 23:59 :00 No [id number] 25 mg NEEDED 25 mg NEEDED (route: oral) Med Classific ation: Central Nervous System Agents clozapine 100 mg tablet 11-18 00:00: 00 02-25 23:59 :00 No [id number] 100 mg BEDTIME 100 mg BEDTIME (route: oral) Med Classific ation: Central Nervous System Agents gabapentin 100 mg capsule 11-18 00:00: 00 02-24 23:59 :00 No [id number] 100 capsule 3 TIMES DAILY 100 capsule 3 TIMES DAILY (route: oral) Med Classific ation: Central Nervous System Agents gabapentin 800 mg tablet 3-29 00:00: 00 Yes [id number] 800 mg 3 TIMES DAILY 800 mg 3 TIMES DAILY (route: oral) Med Classific ation: Central Nervous System Agents lorazepam 1 mg tablet 3-25 00:00: 00 10-12 23:59 :00 No [id number] 1 mg DIRECTED 1 mg DIRECTED (route: oral) Med Classific ation: Central Nervous System Agents trazodone 100 mg tablet -19 00:00: 00 08-21 23:59 :00 No [id number] 100 mg BEDTIME 100 mg BEDTIME (route: oral) Med Classific ation: Central Nervous System Agents Vitamin D3 25 mcg (1,000 unit) capsule 11-06 00:00: 00 01-02 23:59 :00 No [id number] 1000 capsule DAILY 1000 capsule DAILY (route: oral) Med Classific ation: Electroly te Balance-N utritiona l Products clonazepam 1 mg tablet 01-02 00:00: 00 10-12 23:59 :00 No [id number] 1 mg 2 TIMES DAILY 1 mg 2 TIMES DAILY (route: oral) Med Classific ation: Central Nervous System Agents Depakote ER 250 mg tablet,exte nded release 01-02 00:00: 00 02-25 23:59 :00 No [id number] 250 mg 2 TIMES DAILY 250 mg 2 TIMES DAILY (route: oral) Med Classific ation: Central Nervous System Agents glipizide 5 mg tablet 01-02 00:00: 00 02-23 23:59 :00 No [id number] 5 mg DAILY 5 mg DAILY (route: oral) Med Classific ation: Endocrine mirtazapine 15 mg tablet 01-02 00:00: 00 10-12 23:59 :00 No [id number] 15 mg BEDTIME 15 mg BEDTIME (route: oral) Med Classific ation: Central Nervous System Agents quetiapine 50 mg tablet 5-13 00:00: 00 08-21 23:59 :00 No [id number] 50 mg NEEDED 50 mg NEEDED (route: oral) Med Classific ation: Central Nervous System Agents glipizide 10 mg tablet 7-12 00:00: 00 04-23 23:59 :00 No [id number] 10 mg DAILY 10 mg DAILY (route: oral) Med Classific ation: Endocrine Trulicity 0.75 mg/0.5 mL subcutaneou s pen injector 9-10 00:00: 00 Yes [id number] 0.75 mg WEEKLY 0.75 mg WEEKLY (route: subcutaneo us) Med Classific ation: Endocrine Jardiance 25 mg tablet 09-28 00:00: 00 Yes [id number] 25 mg DAILY 25 mg DAILY (route: oral) Med Classific ation: Endocrine Tums 200 mg calcium (500 mg) chewable tablet 09-28 00:00: 00 02-23 23:59 :00 No [id number] 200 mg DIRECTED 200 mg DIRECTED (route: oral) Med Classific ation: Gastroint estinal Therapy Agents Tylenol 325 mg tablet - 00:00: 00 04-21 23:59 :00 No [id number] 325 mg DIRECTED 325 mg DIRECTED (route: oral) Med Classific ation: Analgesic , Anti-infl ammatory or Antipyret ic Vitamin D3 25 mcg (1,000 unit) tablet 09-28 00:00: 00 08-16 23:59 :00 No [id number] 25 mcg DAILY 25 mcg DAILY (route: oral) Med Classific ation: Electroly te Balance-N utritiona l Products benztropine 1 mg tablet 20 00:00: 00 Yes [id number] 1 mg 2 TIMES DAILY 1 mg 2 TIMES DAILY (route: oral) Med Classific ation: Central Nervous System Agents clonazepam 1 mg tablet -20 00:00: 00 02-24 23:59 :00 No [id number] 1 mg 3 TIMES DAILY 1 mg 3 TIMES DAILY (route: oral) Med Classific ation: Central Nervous System Agents mirtazapine 45 mg tablet 2-20 00:00: 00 02-25 23:59 :00 No [id number] 45 mg BEDTIME 45 mg BEDTIME (route: [...] AWARENESS FOR SAFETY AND WILL NOTIFY CLINICAL DIRECTOR HOME HEALTH AND PHYSICIAN/PROVIDER WITH ANY CHANGE IN CONDITION. [code = SKILLED NURSE WILL MAINTAIN SITUATIONAL AWARENESS FOR SAFETY AND WILL NOTIFY CLINICAL DIRECTOR HOME HEALTH AND PHYSICIAN/PROVIDER WITH ANY CHANGE IN CONDITION.] [...] MEDICATIONS DAILY AND PRE-POUR MEDICATIONS TILL NEXT USP VISIT PER MEDICATION LIST. [code = SKILLED NURSE TO ADMINISTER MEDICATIONS DAILY AND PRE-POUR MEDICATIONS TILL NEXT USP VISIT PER MEDICATION LIST.] Future Scheduled Test [...] CARE WILL BE ESTABLISHED THAT MEETS PATIENT'S USP NEEDS AND INCLUDES PATIENT GOAL FOR HOME [...] End Date/Time Encounter Type Admission Type Attending [facility] Care Department Encounter ID Discharge Date Discharge Status Discharge Condition Discharge Reason Percent Goals Met 2024-06-27 00:00:00 2024-10-24 00:00:00 Outpatient RECERTIFIC ATION JONATAN TIM [facility] [id number] 4.17
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
[2024-09-06 14:17] VITALS: BP 128/78; PULSE 118; RESP 18; TEMP 36.6; O2SAT 97
--- NOTE | 2024-09-06 15:38 | PC.NURSE ---
Patient was refusing to respond to my questions.
== END 2024-09-06 15:42 | disposition home or self-care (01) ==
PROVIDERS: Emergency Provider Emergency Medicine
DX: F25.9 Schizoaffective disorder, unspecified (principal); F41.1 Generalized anxiety disorder; R41.82 Altered mental status, unspecified; E13.9 Other specified diabetes mellitus without complications; Z79.84 Long term (current) use of oral hypoglycemic drugs; Z79.899 Other long term (current) drug therapy
CPT/HCPCS: 36415; 80053; 85025; 99283; 99284

== ENCOUNTER → 2024-09-06 11:28 | Outpatient (BNV) | payer MEDICARE, MEDICAID, SELFPAY | PROVIDERS: Emergency Provider Emergency Medicine; Visit Provider Social Worker | DX: F25.9 Schizoaffective disorder, unspecified (principal) | CPT/HCPCS: 99285 ==

== ENCOUNTER 2024-11-21 10:12 | Emergency (ER) | payer MEDICARE, MEDICAID, SELFPAY ==
[2024-11-21 10:40] VITALS: BP 141/89; PULSE 120; O2SAT 97
[2024-11-21 10:44] VITALS: BP 133/85; PULSE 119; RESP 20; TEMP 36.4; O2SAT 100; BMI 21.9
--- NOTE | 2024-11-21 11:02 | ECG_ITS ---
Test Reason : qtc check Blood Pressure : */* mmHG Vent. Rate : 118 BPM Atrial Rate : 322 BPM P-R Int : * ms QRS Dur : 78 ms QT Int : 334 ms P-R-T Axes : 51 39 53 degrees QTcB Int : 468 ms Artifact in tracing Normal sinus rhythm Normal ECG When compared with ECG of 28-Jun-2024 20:34, No significant changes seen Referred By: Silvia Jo Electronically Signed By: FAITH JANSEN
--- NOTE | 2024-11-21 11:05 | ED_ITS ---
HPI - Psych General Chief Complaint: Psychiatric Symptoms Stated Complaint: ATTEMPT TO JUMP IN FRONT OF TRAIN,REFUSES ?'S Time Seen by Provider: 11/21/24 10:58 Source: patient, EMS and old records reviewed Mode of arrival: EMS Limitations: other History of Present Illness ED Provider: JANNY HPI Narrative: 49 yo male with PMH of DM, HTN, anxiety, schizoaffective disorder who was [place] train tracks - I see no head trauma but he has a superficial scrap to the L knee. He is tracking with his eyese but will not answer any questions. He withdraws from tactile stimuli on extremities. Given IVF by EMS [facility] - unclear. He reportedly tried to jump in front of a train. He is not providing any history. He was agitated with EMS [employer] MD complaint: other Duration: constant History of same: Yes Relieving factors: none Exacerbating factors: none Context: other Associated psychiatric symptoms: other (patient is not talking) Associated symptoms: denies other symptoms Related Data Home Medications ?Medication ?Instructions ?Recorded ?Confirmed atorvastatin 40 mg tablet 40 mg PO QPM 11/21/24 11/21/24 clozapine 50 mg tablet 450 mg PO QPM 11/21/24 11/21/24 divalproex 500 mg tablet,extended 1,500 mg PO QPM 11/21/24 11/21/24 release 24 hr fluoxetine 20 mg capsule 20 mg PO DAILY 11/21/24 11/21/24 mirtazapine 15 mg tablet 15 mg PO QPM 11/21/24 11/21/24 Previous Rx's ?Medication ?Instructions ?Recorded metformin 1,000 mg tablet 1,000 mg PO BID #60 tabs 08/21/24 metoprolol succinate 25 mg 25 mg PO DAILY #30 tabs 08/21/24 tablet,extended release 24 hr mirtazapine 45 mg tablet 45 mg PO BEDTIME #30 tabs 08/21/24 Allergies Allergy/AdvReac Type Severity Reaction Status Date / Time haloperidol [From Haldol] Allergy Intermediate Agitated Verified 11/21/24 10:54 lithium Allergy Intermediate Agitated Verified 11/21/24 10:54 oxcarbazepine Allergy Unknown RASH Verified 11/21/24 10:54 [From TRILEPTAL] fluphenazine [From Prolixin] Allergy akathisia Verified 11/21/24 10:54 Review of Systems 2 Review of Systems: ROS unable to be obtained due to [facility] Past Medical History Attestation statement: The following information was validated with the patient. Source: old records reviewed Medical History Acute anxiety Schizoaffective disorder Diabetes 1.5, managed as type 2 Social History Social History Household Members: Other Household Members Other:: roommate Housing: Apartment Housing Other:: [facility] supported apartment Do you presently have visiting nurse or other home services: Yes Unable to assess alcohol history related to: Refusing to respond Alcohol intake: former Comment: utilizing a walker Patient Tobacco Use Status: Never used Tobacco Tobacco use type: Cigarette e-Cigarette/Vaping Use: Never Used Second Hand Smoke Exposure: No Use of substances other than those prescribed or required for medical reasons: Refusing to respond Advance Directives: No Advance Directives Information Provided: Yes Do you have a plan to hurt others: No Plan service: No Sexual orientation: Straight/Heterosexual Physical Exam 2 Vital Signs: Vital Signs: Last Vital Signs Temp 97.8 F 11/22/24 12:43 Pulse 121 H 11/22/24 12:43 Resp 18 11/22/24 12:43 BP 119/80 11/22/24 12:43 Pulse Ox 97 11/22/24 06:06 O2 Del Method Room Air 11/22/24 06:06 BMI result Body Mass Index 21.9 Appearance: Alert. not answering questions, appears anxious mild acute distress. Eyes: Pupils equal, round and reactive to light. ENT: Pharynx normal. atraumatic no bleeding noted no contusion and no gutierrez/racoon eyes Neck: Normal inspection. Neck supple. CVS: tachcyardic heart rate and rhythm. Pulses normal. Respiratory: No respiratory distress. Breath sounds normal. Abdomen: Soft and nontender. Skin: Skin warm and dry. Normal skin color. Normal skin turgor. Extremities: No lower extremity edema. No calf ttp L knee superficial abrasion but able to range knee without issue Neuro: nonverbal will not participate in exam but no localized deficits and responds to tactile stimuli Course Course Course Narrative: given drop in hemoglobin I plan to repeat CBC at 3pm slight drop in hemoglobin but review again no signs of blunt trauma no acute change in VS refusing to give urine will not allow rectal exam - repeat CBC in AM Reevaluation(s) Reevaluation #1: 11/22/24 hemoglobin better actually this morning, he does have a resting tachycardia but he is normotensive his blood pressure is 131/82, respirations 16 afebrile O2 sat is 97% as 06:00. We are waiting for crisis evaluation. Reevaluation #2: bed found in [facility] will be transfer ,on reexam feels well no somatic complaints Time: 11:05 Medications Administered Discontinued Medications Generic Name Dose Route Start Last Admin Trade Name Neli PRN Reason Stop Dose Admin Fluoxetine HCl 20 mg 11/22/24 09:00 11/22/24 10:19 Fluoxetine Hcl 20 Mg Capsule PO 20 mg DAILY LAUREN Administration Lorazepam 1 mg 11/22/24 11:05 11/22/24 11:16 Lorazepam 1 Mg Tablet PO 11/22/24 11:06 1 mg ONCE ONE Administration Metformin HCl 1,000 mg 11/22/24 09:00 11/22/24 11:27 Metformin Hcl 1,000 Mg Tablet PO 1,000 mg BID LAUREN Administration Metoprolol Succinate 25 mg 11/22/24 09:00 11/22/24 11:26 Metoprolol Succinate Er 25 Mg Tab.Er.24h PO 25 mg DAILY LAUREN Administration Protocol Medical Decision Making Medical Decision Making MDM Narrative: 49 yo male with PMH of DM, HTN, anxiety, schizoaffective disorder here with c/o laying on train tracks and trying to jump in front of train on arrival no signs of trunk or head trauma has abrasion to L knee he is not participating in exam and is nonverbal will order EKG, pain labs, low threshold to medically intervene with medications given his prior hx of violence. Differential Diagnosis Differential Diagnoses: The differential diagnosis associated with the presentation includes decompensation, abrasion, hyperglycemia Admission/Observation Consideration of admission/observation: Escalation of care including admission/observation considered physician observation started at 1155am pending CARE team and work up Consult Healthcare Provider Management of the patient was discussed with: Behavioral Health Provider Lab Data [facility] Lab Attestation statement: I reviewed the patient's lab results. 11/22/24 06:12 11/21/24 11:37 Labs: Lab Results 11/21/24 11/21/24 11/22/24 Range/Units 11:37 16:32 06:12 WBC 10.8 10.3 11.6 H (4.8-10.8) X10*3/uL RBC 4.39 L D 4.15 L 4.36 L (4.60-5.80) X10*6/uL Hgb 12.3 L D 11.8 L 12.6 L (14.0-18.0) g/dl Hct 37.8 L D 35.3 L 37.3 L (42.0-52.0) % MCV 86.1 85.1 85.6 (80.0-98.0) fL MCH 28.0 28.4 28.9 (27.0-33.0) pg MCHC 32.5 33.4 33.8 (31.0-36.0) g/dl RDW 15.2 15.3 15.4 (11.0-16.0) % Plt Count 165 D 161 155 L (160-400) X10*3/uL MPV 9.4 9.2 L 9.1 L (9.4-12.4) fL Immature Gran % (Auto) 0.3 (0.0-0.4) % Neut % (Auto) 74.5 H (45-73) % Lymph % (Auto) 14.5 L (20-40) % Stephens % (Auto) 10.1 (2-11) % Eos % (Auto) 0.1 (0-4) % Baso % (Auto) 0.5 (0-2) % Lymph # (Auto) 1.6 (1.2-4.9) X10*3/uL Stephens # (Auto) 1.1 (0.1-1.2) X10*3/uL Eos # (Auto) 0.0 (0.0-0.4) X10*3/uL Baso # (Auto) 0.1 (0.0-0.2) X10*3/uL Abs Immat Gran (auto) 0.03 (0.00-0.03) X10*3/uL Absolute Neuts (auto) 8.1 (2.0-8.3) x10*3/uL Absolute Nucleated RBC 0.000 0.000 0.000 (0.0-0.012) X10*3/uL Nucleated RBC % (auto) 0.0 0.0 0.0 (0.0-0.2) /100WBC Sodium 143 (135-145) mmol/L Potassium 3.4 D (3.3-5.1) mmol/L Chloride 111 H (96-108) mmol/L Carbon Dioxide 24 (22-29) mmol/L Anion Gap 11 L (12-20) BUN 13 (9-16) mg/dL Creatinine 0.73 (0.5-1.4) mg/dL Estim Creat Clear Calc 116.3 Estimated GFR > 60 Random Glucose 90 (60-115) mg/dL Calcium 8.7 D (8.4-10.2) mg/dL Magnesium 1.6 (1.6-2.6) mg/dL Total Bilirubin 0.3 (0.0-1.0) mg/dL Direct Bilirubin 0.2 (0.0-0.5) mg/dL AST 24 (5-37) U/L ALT 13 (0-40) U/L Alkaline Phosphatase 99 (39-117) U/L Total Creatine Kinase 128 (38-174) U/L Total Protein 5.7 L (6.5-8.0) g/dL Albumin 3.5 (3.5-5.0) g/dL Salicylates < 5.0 L (15-30) mg/dL Acetaminophen < 3 (<30) mcg/mL Ethyl Alcohol < 10 mg/dL Independent Interpretation I performed an independent interpretation of an: EKG Interpretation: Rate: 118 Rhythm: sinus tach [place]: normal Normal P waves. Normal ANTHONY. Normal QRS complex. ST T wave : no ANMOL, artifact noted qTC: 468 prior studies: no acute ischemia The study has been interpreted contemporaneously by me. . Independent Historian Clinical information obtained from an independent historian. History obtained from or confirmed by: EMS External Record Review External record reviewed: Inpatient record and Outpatient record Procedures FAST Exam FAST Exam 1: Fluid in Morison's pouch: No Fluid in [place]: No Fluid around bladder, Transverse view: No Fluid around bladder, Sagittal view: No Fluid in Pericardial Sac: No Gross Wall Motion Abnormality: No Study normal for this patient: Yes Images saved for further review: No Discharge Plan Discharge Clinical Impression: Acute anemia Schizoaffective disorder Qualifiers: Schizoaffective disorder type: unspecified Qualified Code(s): F25.9 - Schizoaffective disorder, unspecified Patient Disposition: Xfer Psychiatric Hosp Transfer Details: TO: [facility],[address], [facility],[place],[address], Instructions: Schizoaffective Disorder (ED) Prescriptions: No Action metformin 1,000 mg Tablet 1,000 mg PO BID Qty: 60 0RF mirtazapine 45 mg tablet 45 mg PO BEDTIME Qty: 30 0RF metoprolol succinate 25 mg Tablet Extended Release 24 Hr 25 mg PO DAILY Qty: 30 0RF Protocol: Hold for SBP/HR < HOLD for SBP < : 90 HOLD for HR < : 60 atorvastatin 40 mg tablet 40 mg PO QPM divalproex 500 mg tablet extended release 24 hr 1,500 mg PO QPM mirtazapine 15 mg tablet 15 mg PO QPM fluoxetine 20 mg capsule 20 mg PO DAILY clozapine 50 mg tablet 450 mg PO QPM Referrals: Jess Paris MD [Primary Care Provider] - 1 week Interventions: Marshall-Suicide Risk Severity Scale Last Done: 11/21/24 10:54 Acute Care Transfer Worksheet (ED) Last Done: 11/22/24 12:43 Discharge Date/Time: 11/22/24 12:45 Print Language: Malay
[2024-11-21 11:41] LABS: MANUAL DIFF FLAG NO
[2024-11-21 11:44] LABS: Basophils Absolute Auto 0.1 X10*3/uL (0.0-0.2); Basophils Percent Auto 0.5 % (0-2); Eosinophils Percent Auto 0.1 % (0-4); Hematocrit 37.8 % (42.0-52.0); Hemoglobin 12.3 g/dl (14.0-18.0); Imm Gran Abs Auto 0.03 X10*3/uL (0.00-0.03); Imm Gran Pct Auto 0.3 % (0.0-0.4); Lymphocytes Absolute Auto 1.6 X10*3/uL (1.2-4.9); Lymphocytes Percent Auto 14.5 % (20-40); Mean Corpuscular HGB Conc 32.5 g/dl (31.0-36.0); Mean Corpuscular Volume 86.1 fL (80.0-98.0); Mean Platelet Volume 9.4 fL (9.4-12.4); Monocytes Absolute Auto 1.1 X10*3/uL (0.1-1.2); Monocytes Percent Auto 10.1 % (2-11); Neutrophils Absolute Auto 8.1 x10*3/uL (2.0-8.3); Neutrophils Percent Auto 74.5 % (45-73); Platelet Count 165 X10*3/uL (160-400); Red Blood Count 4.39 X10*6/uL (4.60-5.80); Red Cell Distribution Width 15.2 % (11.0-16.0); White Blood Count 10.8 X10*3/uL (4.8-10.8)
[2024-11-21 12:02] LABS: Alanine Aminotransferase 13 U/L (0-40); Albumin Level 3.5 g/dL (3.5-5.0); Alkaline Phosphatase 99 U/L (39-117); Anion Gap 11 (12-20); Aspartate Amino Transferase 24 U/L (5-37); Bilirubin Direct 0.2 mg/dL (0.0-0.5); Bilirubin Total 0.3 mg/dL (0.0-1.0); Blood Urea Nitrogen 13 mg/dL (9-16); Calcium 8.7 mg/dL (8.4-10.2); Carbon Dioxide 24 mmol/L (22-29); Chloride 111 mmol/L (96-108); Creatinine Clr Calc Pharmacy 116.3; Estimated Glomerular Filt Rate > 60; Ethanol < 10 mg/dL; Glucose Random 90 mg/dL (60-115); Magnesium 1.6 mg/dL (1.6-2.6); Potassium 3.4 mmol/L (3.3-5.1); Sodium 143 mmol/L (135-145); Total Protein 5.7 g/dL (6.5-8.0)
[2024-11-21 12:04] VITALS: BP 123/81; PULSE 93; RESP 20; O2SAT 100
[2024-11-21 12:05] LABS: Acetaminophen LAB < 3 mcg/mL (<30); Salicylate < 5.0 mg/dL (15-30)
--- OUTSIDE RECORDS SUMMARY | 2024-11-21 15:41 | XMS_ITS | Encounter Summary ---
Author Organization [employer] Address [address] [place] [address] Care Team Providers Care Air Hammer Operator Name Role Phone Jess Paris MD Primary Care Provider [phone] Kiera Hassan PharmD Unavailable [phone] Ruth Silverio OD Unavailable Encounter Details Date Type Department Care Team (Late st Contact Info) Description 09/21/2022 Orders Only [facility] [address], [place] [phone] Jess Paris MD [address], [place] [phone] Other specified diabetes mellitus with hyperglycemia, without long-term current use of insulin (CMS/HCC) (Primary Dx) Social History Tobacco Use Types Packs/Day Years Used Date Smoking Tobacco: Never Assessed Sex and Gender Information Value Date Recorded Sex Assigned at Male 06/22/2022 10:14 AM EDT Legal Sex Male 10:14 AM EDT Gender Identity Male 06/22/2022 10:14 AM EDT Sexual Orientation Straight 06/22/2022 10 :14 AM EDT COVID-19 Exposure Response Date Recorded In the last 10 days, have yo u been in contact with someone who was confirmed or suspected to have Coronavirus/COVID-19? Unable to assess 09/09/2022 1:56 PM EST documented as of this encounter Plan of Treatment Not on file documented as of this encounter Visit Diagnoses Diagnosis Other specified diabetes mellitus with hyperglycemia, without long-term current use of insulin (CMS/HCC)- Primary documented in this encounter Care Teams Air Hammer Operator Relationship Specialty Start Date End Date Jess Paris MD [address], [place] [phone] PCP - General Family Medicine 06/14/13 Kiera Hassan, AmandoD [address], [place] [phone] Pharmacist Internal Medicine 08/03/22 Ruth Silverio OD [address] [place] [id number] Optometry 11/16/24 French Martin 06/27/24 Malathi Abraham APRN Psychiatry 11/16/24 documented as of this encounter
--- OUTSIDE RECORDS SUMMARY | 2024-11-21 15:41 | XMS_ITS | Clinical Summary ---
Author Organization [employer] Address [address] [facility] [address] [place] [address] Care Team Providers Care Rod Cup Filler Name Role Phone Jess Paris MD Primary Care Provider [phone] Kiera Hassan PharmD Unavailable [phone] Ruth Silverio OD Unavailable [phone] Allergies Active Allergy Reactions Criticality Noted Date Comments Fluphenazine 03/09/2012 Other reaction(s): akathesia , akathesia Haloperidol 03/09/2012 Other reaction(s): akathesia [place] 12/29/2017 Oxcarbazepine 12/15/2018 Medications * This document contains information received from the source organization and may not represent a complete record from that organization. polyethylene glycol, PEG, 3350 (MiraLax) 17 GM/SCOOP powderIndication s:Constipation, unspecified constipation type 17 grams in 8-12 oz fluid like water at bedtime prn constipation 527 g 2 023 Active sennosides (Senokot) 8.6 MG tabletIndication s:Constipation, unspecified constipation type 1-2 tabs po nightly prn constipation 60 tablet 11 023 Active selenium sulfide (Selsun) 2.5 % shampooIndicatio ns:Seborrheic dermatitis Use three times a week in shower to hair and forehead 118 mL 3 023 Active TRUEplus Lancets 28G miscIndications: Type 2 diabetes mellitus with hyperglycemia, without long-term current use of insulin ([facility] [place]) TEST BLOOD SUGAR TWICE DAILY 100 each 11 023 Active empagliflozin (Jardiance) 25 MGIndications:Di abetes mellitus without complication (CMS/HCC) Take 1 tablet (25 mg) by mouth in the morning. 30 tablet 11 Active metFORMIN (Glucophage) 1000 MG tabletIndication s:Diabetes mellitus without complication (CMS/HCC) TAKE 1 TABLET BY MOUTH TWICE DAILY WITH MEALS 180 tablet 3 024 Active metoprolol succinate XL (Toprol-XL) 25 MG 24 hr tabletIndication s:Elevated blood-pressure reading without diagnosis of hypertension Take 1 tablet (25 mg) by mouth in the morning. 90 tablet 3 024 Active QUEtiapine (SEROquel) 25 MG tablet Take 1 tablet twice daily as needed Active atorvastatin (Lipitor) 40 MG tabletIndication s:Diabetes mellitus without complication (CMS/HCC) TAKE 1 TABLET BY MOUTH ONCE DAILY 30 tablet 3 024 Active dulaglutide (Trulicity) 3 MG/0.5ML solution pen-injectorIndi cations:Type 2 diabetes mellitus with hyperglycemia, without long-term current use of insulin ([facility] [place]) INJECT ONE PEN (3 MG) SUBCUTANEOUSLY ONCE WEEKLY 4 each 6 Active glucose blood (FREESTYLE LITE) test stripIndications :Type 2 diabetes mellitus with hyperglycemia, without long-term current use of insulin ([facility] [place]) USE TO CHECK BLOOD SUGAR TWICE A DAY 100 each 11 Active triamcinolone (Kenalog) 0.1 % cream Apply topically Once per day. To face Active gabapentin (Neurontin) 800 MG tablet Take 1 tablet by mouth 3 times daily. Active mirtazapine (Remeron) 45 MG tablet Take 1 tablet by mouth at bedtime. Active chlorproMAZINE (Thorazine) 25 MG tablet Take 2 tablets by mouth 2 times daily. Active escitalopram (Lexapro) 20 MG tablet Take 1 tablet by mouth Once per day. Active LORazepam (Ativan) 2 MG tablet Take 1 tablet by mouth 3 times daily. Active OLANZapine zydis (ZyPREXA) 10 MG disintegrating tablet Take 1 tablet by mouth 2 times daily. 12/30/2 024 Active acetaminophen (Tylenol) 325 MG tablet TAKE 2 TABLETS BY MOUTH EVERY FOUR HOURS NEEDED FOR FEVER OR PAIN 022 2024 Discontinued(M ed list cleanup (will not trigger notification to Pharmacy)) Blood Pressure Monitoring (Omron 3 Series BP Monitor) device USE TO CHECK BLOOD PRESSURE DIRECTED 022 2024 Discontinued(M ed list cleanup (will not trigger notification to Pharmacy)) Alcohol Swabs (Ultra-Care Alcohol Prep Pads) 70 % pads USE BEFORE BLOOD SUGAR TESTING AND USING INSULIN 100 each 11 023 2024 Discontinued(M ed list cleanup (will not trigger notification to Pharmacy)) Active Problems Problem Noted Date Diagnosed Date Dietary counseling 09/27/2024 Exercise counseling 09/27/2024 Schizoaffective disorder, unspecified 02/21/2024 Weakness 01/19/2024 Overview (01/19/2024): 6-12 months of progressive LE weakness at quadricepts. Difficulty standing with legs straight. Will check Xray, labs. Referral to PT with [facility] 01/19/24. Follow up 4 weeks. Assessment & Plan (01/19/2024 12:55 PM EDT): 6-12 months of progressive LE weakness at quadricepts. Difficulty standing with legs straight. Will check Xray, labs. Referral to PT with [facility] 01/19/24. Follow up 4 weeks. Weight loss 01/19/2024 Overview (01/19/2024): 230-232 in 2021 Trulicity started 04/2023 202 lb 182 lb 01/19/24 Suspect from Trulicity but given 50 lb weight loss since 2021, will check lab and referral to GI Assessment & Plan (01/19/2024 12:54 PM EDT): 230-232 in 2021 Trulicity started 04/2023 202 lb 182 lb 01/19/24 Suspect from Trulicity but given 50 lb weight loss since 2021, will check lab and referral to GI Encounter for coordination of complex care 09/18 Overview (01/19/2024): -psychiatry Haile Gutierrez NP [phone] -therapist, [place] [phone] and [facility]. -Chitra is worker on [facility] outreach team [phone] -day program at [facility] prior to the pandemic, currently ina -visiting RN : Eleuterio White [phone] with [facility] since 02/2018:shoe parts caser:Isabel Harry [phone], , Assessment & Plan (01/19/2024 12:13 PM EDT): -psychiatry Haile Gutierrez NP [phone] -therapist, [place] [phone] and [facility]. -Chitra is worker on [facility] outreach team [phone] -day program at [facility] prior to the pandemic, currently ina -visiting RN : Eleuterio White [phone] with CAR[facility] since 02/2018:shoe parts caser:Isabel Harry [phone], , Other specified health status 05/21/2023 Overview (06/14/2024): -next comprehensive annual evaluation due after 05/24/2024 -eye care facilitated by [facility] -dental home is in [place], last seen on 11/2022 -health care proxy Assessment & Plan (05/21/2023 11:26 AM EDT): -next physical exam due after 06/15/2023 -eye care facilitated by [facility] -dental home is in [place], last seen on 11/2022 -Referral to GI for colon cancer screening 05/21/2023 Left foot pain 05/21/2023 Overview (05/21/2023): -Referral done to PT 05/21/2023 -High risk for falls due to medication side effects. We will see if he can get PT at home, will call his [facility] for PT assistance Assessment & Plan (05/21/2023 12:00 PM EDT): -Referral done to PT 05/21/2023 -High risk for falls due to medication side effect. We will see if he can get PT at home, will call his [facility] for PT assistance Bilateral impacted cerumen 05/21/2023 Overview (05/21/2023): - Irrigation done 05/21/2023 Assessment & Plan (05/21/2023 11:27 AM EDT): - Irrigation done 05/21/2023 Seborrheic dermatitis 05/21/2023 Overview (05/21/2023): -Medicated shampoo given 05/21/2023 Assessment & Plan (05/21/2023 11:40 AM EDT): -Medicated shampoo given 05/21/2023 Abnormal gait 05/21/2023 Psoriasis 10/30/2022 Overview (10/30/2022): Referred to Dermatology at last visit for psoriasis on feet bilaterally - Pt was seen by Dermatology 01/31/18 for psoriasis management. he was diagnosed with sebopsoriasis and was recommended he use selenium sulfide shampoo and [place]- Smoothe scalp oil, as well as Ketoconazole shampoo 2%. Pt was also diagnosed with plaque psoriasis and was given Betamethasone 0.05% ointment BID for 2 weeks. - Continue with selenium sulfide shampoo x2 a week. - Continue with Ketoconazole shampoo 3-4x a week. - Continue to use Betamethasone on toes prn. - Use Vaseline prn once feet heal. - Recommended FU with dermatology prn Assessment & Plan (10/30/2022 9:05 AM EST): Referred to Dermatology at last visit for psoriasis on feet bilaterally - Pt was seen by Dermatology 01/31/18 for psoriasis management. he was diagnosed with sebopsoriasis and was recommended he use selenium sulfide shampoo and [place]- Smoothe scalp oil, as well as Ketoconazole shampoo 2%. Pt was also diagnosed with plaque psoriasis and was given Betamethasone 0.05% ointment BID for 2 weeks. - Continue with selenium sulfide shampoo x2 a week. - Continue with Ketoconazole shampoo 3-4x a week. - Continue to use Betamethasone on toes prn. - Use Vaseline prn once feet heal. - Recommended FU with dermatology prn Constipation 10/30/2022 Assessment & Plan (10/30/2022 11:26 AM EST): No evidence of obstruction. Possibly due to GLP 1 medicaiton. Colon cancer screening 10/30/2022 Overview (01/19/2024): referral GI colon cancer screening 05/21/2023, number given to [facility] to contact, new referral placed 01/19/24 Assessment & Plan (01/19/2024 12:14 PM EDT): referral GI colon cancer screening 05/21/2023, number given to [facility] to contact, new referral placed 01/19/24 Assessment & Plan (05/21/2023 11:07 AM EDT): referral GI colon cancer screening 05/21/2023 Assessment & Plan (10/30/2022 11:27 AM EST): GI referral done 10/30/2022. Dyslipidemia 07/14/2022 Overview (06/14/2024): Lab Results Component Value Date CHOL 182 12/02/2022 TRIG 297 12/02/2022 HDL 26 12/02/2022 LDLCHOLCAL 97 12/02/2022 -continue lifestyle modification Assessment & Plan (10/30/2022 9:06 AM EST): Elevated blood-pressure read ing without diagnosis of hypertension 07/14/2022 Gastroesophageal reflux disease without esophagi tis 07/14/2022 Overview (10/30/2022): Controlled on omeprazole 20mg daily Assessment & Plan (10/30/2022 9:06 AM EST): Controlled on omeprazole 20mg daily Tachycardia 07/14/2022 Tremor 07/14/2022 Overview (10/30/2022): Pt on multiple medications that can cause Tardive Dyskinesia and Parkinsonian like symptoms. It is difficult to controls his psychiatric symptoms, he is controlled on his current regimen. Likely his rest tremor is caused by medication but not interfering with activities of daily living. Continue benztropine and he will discuss with his psychiatrist. We will monitor his signature. Assessment & Plan (10/30/2022 9:04 AM EST): Pt on multiple medications that can cause Tardive Dyskinesia and Parkinsonian like symptoms. It is difficult to controls his psychiatric symptoms, he is controlled on his current regimen. Likely his rest tremor is caused by medication but not interfering with activities of daily living. Continue benztropine and he will discuss with his psychiatrist. We will monitor his signature. Vitamin D deficiency 07/14/2022 Overview (09/18/2023): Vit D level 17 09/2020 continue Vit D 1000 IU daily Assessment & Plan (10/30/2022 9:04 AM EST): Vit D level 17 09/2020 continue Vit D 1000 IU daily Type 2 diabetes mellitus wit h hyperglycemia, without long-term current use of insulin 03/22/2012 Overview (01/24/2024): Diabetes is controlled. Diabetes is followed with pharmacy [facility] by Dr. Kiera Hassan PharmD. Lab Results Component Value Date HGBA1C 6.1 (A) 01/19/2024 HGBA1C 7.1 03/18/2023 HGBA1C 8.1 12/02/2022 GLUCOSE 124 (H) 01/19/2024 GLUCOSE 117 (H) 09/23/2023 Lab Results Component Value Date CREATININE 1.21 01/19/2024 -Suman/Arb: no -Statin therapy: Atorvastatin 40mg -Diabetic eye exam: -Diabetic foot exam: -Continue lifestyle modifications -Continue trulicity 3mg weekly ,increased on 04/22/23 -Continue jardiance 25mg dialy -Continue meformin 1000mg BID -glipizide discontinued on 04/16/22 Assessment & Plan (10/19/2023 9:57 AM EST): DM good control current regimen Hgb A1c today 6.7 Assessment & Plan (05/21/2023 11:21 AM EDT): Diabetes is controlled. -Being followed by [facility]. Lab Results Component Value Date HGBA1C 7.1 03/18/2023 HGBA1C 8.1 12/02/2022 -No results found for: POCA1C - Lab Results Component Value Date CREATININE 1.16 07/08/2022 -Suman/Arb: no -Statin therapy: Atorvastatin 40mg -Diabetic eye exam: -Diabetic foot exam: -Continue lifestyle modifications -Continue trulicity 3mg weekly ,increased on 04/22/23 -Cont jardiance 25mg dialy -Cont meformin 1000mg BID -glipizide discontinued on 04/16/22 Chronic schizophrenia 08/23/1959 Overview (09/27/2024): Pt's hospitalizations include 06/2020 to 09/2020 and 09/23/2023. prior to that is was 11/2014-12/2014 treated with changes in medication and ECT. Stable with psychiatry Chris Arvizu, NGUYỄN [phone], therapist, and [facility]. We had a three way call with his shoe parts caser Chitra ([phone]) who will reach out to precriber and his nurse Stephani ([phone]) left message to check if he needs refills on antything and to request if needed. He is in day program at [facility] prior to the pandemic and has [facility] in the home. -Admitted 09/23/23 for acute anxiety, medications change with -Asdmitted 02/2024 Pt initially presented as subjective restless, pacing, unclear if some degree of myoclonus- this seem to be related more to medication side effect- either excessive serotonin overload with combination of remeron 22.5mg and trazodone 200mg po qhs, less likely akathisia. He also presented with some degree of polypharmacy- including highly anticholinergic medications (clozapine and high dose cogentin), high dose of clonazepam which probably was somewhat treating restlessness, gabapentin. Note that clozaril(530)/norclozaril (185) ratio on 02/10/24 of 2.86, suggest some inhibition of clozaril metabolism which leads to more side effect. Although, initially pt denied constipation, later reported no BM in several days. He was started on regular bowel regimen consisting of senakot 1 tab po BID and miralax. Initially, clozaril was decreased from 300mg po qhs to 250mg po qhs. Trazodone was stopped, remeron was continued. Seroquel was stopped. Cogentin was also stopped- no signs of worsening EPS. No a bnormal movement were noted and gradually pt presented as much less restless. He was able to sleep through the night. Clonazepam was lowered from 1mg po TID to 0.5mg po TID- he tolerated this change well without exacerbation of anxiety, decrease daytime sedation. -Admitted 03/20/24 to [facility] -Admitted 07/11/24 to [facility] for section 12/self injurious behavior -CT08/09/24 CT/CT head/brain wo IV con IMPRESSION: No evidence of acute intracranial hemorrhage or edematous territorial infarction. Mild underlying microangiopathy and generalized cerebral volume loss. Recent Hospitalizations include [facility] (06/13/24-06/26/24), [facility] (06/29/24 - 08/21/24), [facility] (08/30/24 - 09/05/24), [facility] (09/05/24 - 09/06/24), and [facility] (09/06/24 to - 09/07/24). Appears to have been decompensated during each hospitalization. Dx with schizoaffective disorder on 08/30/24 and started on Gabapentin 800 mg by mouth three times daily (also listed to discontinue), Chlorpromazine 50 mg by mouth twice daily, Olanzapine 10 mg translingual twice daily, Escitalopram 20 mg by mouth once daily, and Lorazepam 2 mg by mouth three times daily. Assessment & Plan (05/21/2023 11:02 AM EDT): Pt's last hospitalization was 06/2020 to 09/2020, prior to that is was 11/2014- 12/2014 treated with changes in medication and ECT. Stable with psychiatry Chris Arvizu NP [phone], therapist, and [facility]. We had a three way call with his shoe parts caser Chitra ([phone]) who will reach out to precriber and his nurse Stephani ([phone]) left message to check if he needs refills on antything and to request if needed. He is in day program at [facility] prior to the pandemic and has [facility] in the home. Assessment & Plan (10/30/2022 9:05 AM EST): Pt's last hospitalization was 06/2020 to 09/2020, prior to that is was 11/2014- 12/2014 treated with changes in medication and ECT. Stable with psychiatry Chris Arvizu NP [phone], therapist, and [facility]. We had a three way call with his shoe parts caser Chitra ([phone]) who will reach out to precriber and his nurse Stephani ([phone]) left message to check if he needs refills on antything and to request if needed. He is in day program at [facility] prior to the pandemic and has [facility] in the home. Severe obesity 08/23/1959 Resolved Problems Problem Noted Date Diagnosed Date Resolved Date Hyperlipidemia 11/09/2018 09/10/2022 Encounters Date Type Department Care Team Description 11/16/2024 Orders Only [facility] [address] [place] [address] Jess Paris MD 11/03/2024 Population Health Risk Score [facility] ([facility]) Department [address] [phone] Provider, Population Health Generic 10/11/[address] [address] Jess Paris MD Chart Prep 09/28/[address] [address] Jess Paris MD 09/26/[address] [phone] Kimberley Maldonado MA chartprep 09/04/2024 Patient Outreach [address] [address] Jess Paris MD Transition Of Care (Tcm) (HDF scheduled) from Last 3 Months Immunizations Name Administration Dates Next Due Hep B, adult 05/21/2023,06/30/2017,06/14/2015 Influenza injectable quadriv alent IIV4 with preservative 07/13/2018,06/30/2017 Influenza injectable quadriv alent preservative free 05/21/2023,06/15/2022,07/24/2020,06/14,12/17/2014 Influenza, IIV3, injectable 08/10/2011 Influenza, Split (incl. catarino fied surface antigen) 05/22/2013 Influenza, seasonal, injecta ble, preservative free 08/30/2024,06/14/2012 Moderna Covid-19 Vaccine 12+ 06/04/2023,11/22/19 21,10/24/2020 Moderna Covid-19 Vaccine 6+ Bivalent 08/11/2022 Pfizer Covid-19 Vaccine 12+ 06/18/2021 Pneumococcal Conjugate PCV 20 05/21/2023 Pneumococcal Polysaccharide PPSV23 06/14/2012,,03/23/1997 TD (adult), 2 Lf tetanus tox oid, preservative free, adsorbed 03/23/1997 Tdap 12/17/2014 Social History Tobacco Use Types Packs/Day Years Used Date Smoking Tobacco: Never Passive Smoke Exposure: Never Smokeless Tobacco: Never Depression Answer Date Recorded Patient Health Questionnaire-9 Score 0 05/03/2024 Patient Health Questionnaire-9 Score 0 05/03/2024 Last PHQ-9: Questionnaire Data Not on file 0 05/03/2024 Housing Stability Answer Date Recorded What is your housing situation today? I have julianna poe 06/01/[address] you li ve. Do you have problems with any of the following? None of the above 06/01/2024 Food Insecurity Answer Date Recorded Within the past 12 months, y ou worried that your food would run out before you got money to buy more: Never True 06/01/2024 Within the past 12 months,th e food you bought just didn't last and you didn't have enough money to get more: Never True 05/2024 Transportation Answer Date Recorded In the past 12 months, has l ack of transportation kept you from medical appts, meetings, work or from getting things needed for daily living? No 06/01/2024 Utilities Answer Date Recorded In the past 12 months, has t he electric, gas, oil or water company threatened to shut off services in your home? No 06/01/2024 Depression Answer Date Recorded Patient Health Questionnaire-2 Score 0 05/03/2024 Internet Access Answer Date Recorded Internet Access Q1 Yes 06/01/2024 Internet Access Q2 Not on file 06/01/2024 Sex and Gender Information Value Date Recorded Sex Assigned at Male 06/22/2022 10:14 AM EDT Legal Sex Male 10:14 AM EDT Gender Identity Male 06/22/2022 10:14 AM EDT Sexual Orientation Straight 06/22/2022 10 :14 AM EDT Last Filed Vital Signs Vital Sign Reading Time Taken Comments Blood Pressure 110/64 01/19/2024 11:34 AM EDT Pulse 84 01/19/2024 11:34 AM EDT Temperature 37.2 ??C (98.9 ??F) 01/19/2024 11:34 AM E DT Respiratory Rate 20 01/19/2024 11:34 AM EDT Oxygen Saturation 98% 10/19/2023 9:44 AM EST Inhaled Oxygen Concentration - - Weight 82.6 kg (182 lb) 01/19/2024 11:34 AM EDT Height 172.7 cm (5' 8 ) 10/19/2023 9:44 AM EST Body Mass Index 27.67 10/19/2023 9:44 AM EST Plan of Treatment Health Maintenance Due Date Last Done Comments CT Colonography 1975 Colonoscopy 1975 Colorectal Cancer Screening 1975 FIT DNA/Cologuard 1975 FIT 1975 FOBT 1975 Sigmoidoscopy 1975 Eye Exam 1985 Alcohol/Substance Use Screening 1987 Family Planning (PISQ) 1990 Diabetes: Urine Protein Screening 07/17/2023 07/17/2022 Lipid Panel 12/03/2023 12/02/2022, 06/23, 10/24/2020 COVID-19 Vaccine ( season) 2024 06/04/2023, 08/11/2022, 06/18/2021, Additional history exists DTaP/Tdap/Td Vaccines (2 - Td or Tdap) 12/17/2024 12/17/2014, 03/23/1997 Diabetes: Foot Exam 01/18/2025 01/19/2024, 01/19/2024, 01/19/2024, Additional history exists Tobacco Screening 01/18/2025 01/19/2024 Diabetes: Hemoglobin A1C 03/14/2025 025, 01/19/2024, 03/18/2023, Additional history exists Depression Screening 05/03/2025 05/03/2024, 05/03/20 24 SDOH Screening 06/01/2025 06/01/2024 Zoster Vaccines (1 of 2) 2025 RSV Patients and Patients Aged 60 years or older (1 - 1-dose 75+ series) 2050 Hepatitis B Vaccines Completed 05/21/2023, 06/30/2017, 06/14/2015 Pneumococcal Vaccine: Pediatrics (0 to 5 Years) and At-Risk Patients (6 to 49) Years) Completed 05/21/2023, 06/14/2012, 05/31/2008, Additional history exists HIV Screening Completed 01/19/2024 Hepatitis C Screening Completed 01/19/2024 Influenza Vaccine Completed 08/30/2024, , 06/15/2022, Additional history exists HIB Vaccines Aged Out No longer eligi ble based on patient's age to complete this topic HPV Vaccines Aged Out No longer eligi ble based on patient's age to complete this topic Hepatitis A Vaccines Aged Out No long er eligible based on patient's age to complete this topic IPV Vaccines Aged Out No longer eligi ble based on patient's age to complete this topic Meningococcal Vaccine Aged Out No chinedu kimberley eligible based on patient's age to complete this topic RSV under 20 months Aged Out No longe r eligible based on patient's age to complete this topic Rotavirus Vaccines Aged Out No longer eligible based on patient's age to complete this topic Goals Goal Patient Goal Type Associated Problems Recent Progress Patient-Stated? Author Hemoglobin A1c < 7 Result Component 6.1(09/14/2024 7:25 AM EST) No Kiera Hassan, Jesi Procedures Procedure Name Priority Date/Time Associated Diagnosis Comments POCT GLYCATED HEMOGLOBIN, TOTAL Routine 01/19/2024 2:44 PM EDT Type 2 diabetes mellitus with hyperglycemia, without long-term current use of insulin ([facility]) HEPATITIS C AB W/REFL TO HCV RNA, QN, PCR Routine 01/19/2024 12:58 PM EDT Routine screening for STI (sexually transmitted infection) HIV 1/2 ANTIGEN/ANTIBODY, FOURTH GENERATION W/RFL Routine 01/19/2024 12:58 PM EDT Routine screening for STI (sexually transmitted infection) LIPID PANEL, STANDARD Routine 12/02/2022 11:02 AM EDT ZZZ HISTORICAL MICROALBUMIN/CREATI NINE RATIO, RANDOM URINE Routine 07/17/2022 9:00 AM EST from Last 3 Months or Most Recently Relevant to Health Maintenance Results * Hepatitis C Antibody with Reflex to HCV, RNA, Quantitative, Real-Time PCR (01/19/2024 12:58 PM EDT) Hepatitis C Antibody Nonreactive Nonreactive [facility] Comment:Antibodies to HCV no t detected; does not exclude early acuteHCV infection. Blood Venous blood specimen / Unknown 01/19/2024 12:58 PM EDT 01/19/2024 4:44 PM EDT Jess Paris MD LAB BLOOD ORDERABLES Final Result Performing Organization Address City/[facility]/ZIP Co de Phone Number [facility] [address] [place] [phone] * HIV-1/2 Antigen and Antibodies, Fourth Generation, with Reflexes (01/19/2024 12:58 PM EDT) HIV AB/AG Nonreactive Nonreactive [facility] Comment:HIV-1 p24 Ag and/or HIV-1/HIV-2 Ab not detected.A test result that is nonreactive does not exclude thepossibility of exposure to or infection with HIV-1 and/orHIV-2. Nonreactive results in this assay for individualswith prior exposure to HIV-1 and/or HIV-2 may be due toantigen and antibody levels that are below the limit ofdetection of this assay.The [employer] HIV Ag/Ab Combo assay result andsupplemental assay results should be interpreted inconjunction with the patient's clinical presentation,history and other laboratory results. If the results areinconsistent with clinical evidence, additional testing issuggested to confirm the result. Blood Venous blood specimen / Unknown 01/19/2024 12:58 PM EDT 01/19/2024 4:44 PM EDT Jess Prais MD LAB BLOOD ORDERABLES Final Result Performing Organization Address City/[facility]/ZIP Co de Phone Number [facility] [address] [place] [phone] * Lipid Panel, Standard (12/02/2022 11:02 AM EDT) Triglycerides 297 mg/dL [facility] Comment:Desirable Triglyceri de: less than 150 mg/dLBorderline High Triglyceride 150-199 mg/dLHigh Triglyceride: 200-499 mg/dLVery High Triglyceride: greater than or equal to 5OO mg/dL Cholesterol 182 mg/dL [facility] Comment:Desirable Cholestero l: less than 200 mg/dLBorderline High Cholesterol: 200-239 mg/dLHigh Cholesterol: greater than 239 mg/dL LDL Cholesterol Calculated 97 mg/dl [facility] Comment:Desirable LDL: less than 100 mg/dLNear Optimal/Above Optimal LDL: 110- 129 mg/dLBorderline High LDL: 130-159 mg/dLHigh LDL: 160-189 mg/dLVery High LDL: greater than or equal to 190 mg/dL HDL Cholesterol 26 mg/dL [facility] Comment:Desirable HDL: great er than 40 mg/dL Note: This HDL assay may give artificially low results in patients with liver disease. 12/02/2022 11:0 2 AM EDT 12/02/2022 11:02 AM EDT [facility] External Provider LAB BLO OD ORDERABLES Final Result Performing Organization Address [facility]/ZIP Co de Phone Number [facility] [address] [place] [address] [phone] * MICROALBUMIN/CREATININE RATIO, RANDOM URINE (07/17/2022 9:00 AM EST) Creatinine Urine 63.89 mg/dL [facility] Microalbum/Creati nine Ratio Ur TNP ug/mg cr [facility] Comment: Unable to calculate albumin/creatinine ratio due to low microalbumin or creatinine result. Microalbumin Urine <5.0 mg/L [facility] 07/17/2022 9:00 AM EST Jess Paris MD HISTORICAL/NON ORDERABLE L ABS Final Result Performing Organization Address City/[facility]/ZIP Co de Phone Number [facility] from Last 3 Months or Most Recently Relevant to Health Maintenance Insurance [facility] STANDARD Care Teams Rod Cup Filler Relationship Specialty Start Date End Date [place], MD Jess [address] [place] [address] PCP - General Family Medicine 06/14/13 Kiera Hassan, PharmD [address] [place] [address] Pharmacist Internal Medicine 08/03/22 Ruth Silverio OD [address] [place] [address] Optometry 11/16/24 French Martin 06/27/24 Malathi Abraham RESIDENTIAL AIR SEALING TECHNICIAN Psychiatry 11/16/24
--- OUTSIDE RECORDS SUMMARY | 2024-11-21 15:41 | XMS_ITS | Encounter Summary ---
Author Organization [employer] Address [address] [facility] 7t [place] [address] Care Team Providers Care Jet Wiper Name Role Phone Jess Paris MD Primary Care Provider +- [phone] Kiera Hassan PharmD Unavailable Ruth Silverio OD Unavailable [phone] Reason for Visit * Reason Onset Date Comments FYI 05/02/2024 Encounter Details Date Type Department Care Team (Late st Contact Info) Description 05/02/2024 Telephone [facility] MEDICINE [address] [place], [place] [phone] Jess Paris MD [address] [place], [place] [phone] FYI Social History Tobacco Use Types Packs/Day Years Used Date Smoking Tobacco: Never Passive Smoke Exposure: Never Smokeless Tobacco: Never Depression Answer Date Recorded Patient Health Questionnaire-9 Score 0 05/03/2024 Patient Health Questionnaire-9 Score 0 05/03/2024 Last PHQ-9: Questionnaire Data Not on file 0 05/03/2024 Housing Stability Answer Date Recorded What is your housing situation today? I have julianna poe 06/08/[address] you li ve. Do you have problems with any of the following? None of the above 06/08/2023 Food Insecurity Answer Date Recorded Within the past 12 months, y ou worried that your food would run out before you got money to buy more: Never True 06/08/2023 Within the past 12 months,th e food you bought just didn't last and you didn't have enough money to get more: Never True Transportation Answer Date Recorded In the past 12 months, has l ack of transportation kept you from medical appts, meetings, work or from getting things needed for daily living? No 06/08/2023 Utilities Answer Date Recorded In the past 12 months, has t he electric, gas, oil or water company threatened to shut off services in your home? No 06/08/2023 Depression Answer Date Recorded Patient Health Questionnaire-2 Score 0 05/03/2024 Sex and Gender Information Value Date Recorded Sex Assigned at Male 06/22/2022 10:14 AM EDT Legal Sex Male 10:14 AM EDT Gender Identity Male 06/22/2022 10:14 AM EDT Sexual Orientation Straight 06/22/2022 10 :14 AM EDT documented as of this encounter Miscellaneous Notes * Telephone Encounter - Ciera Crenshaw - 05/02/2024 12:59 PM EDT Tc from [facility] office calling to inform pt missed visit and would not be r/s till August. Anyquestion contact phone # [phone]. documented in this encounter Plan of Treatment Not on file documented as of this encounter Goals Goal Patient Goal Type Associated Problems Recent Progress Patient-Stated? Author Hemoglobin A1c < 7 Result Component 6.1(09/14/2024 7:25 AM EST) No Kiera Hassan PharmD documented as of this encounter Visit Diagnoses Not on filedocumented in this encounter Additional Health Concerns Assessment Noted Time PHQ-9 Depression Total Score: 0 05/21/20 11:09 AM EDT documented as of this encounter Care Teams Jet Wiper Relationship Specialty Start Date End Date Jess Paris MD [address] [place] [address] PCP - General Family Medicine 06/14/13 Kiera Hassan, AmandoD [address] [place] [address] Pharmacist Internal Medicine 08/03/22 Ruth Silverio OD [address] [place] [address] Optometry 11/16/24 French Martin 06/27/24 Malathi Abraham APRN Psychiatry 11/16/24 documented as of this encounter
--- OUTSIDE RECORDS SUMMARY | 2024-11-21 15:41 | XMS_ITS | Encounter Summary ---
Author Organization [employer] Address [address] [facility] 7t [place] [address] Care Team Providers Care Client Services Manager Name Role Phone Jess Paris MD Primary Care Provider +- [phone] Kiera Hassan PharmD Unavailable Ruth Silverio OD Unavailable [phone] Reason for Referral * Consultation (Routine) - Closed Specialty Diagnoses / Procedures Referred By Contac t Referred To Contact Urology Diagnoses Urinary incontinence, unspecified type Jess Paris MD [address] [place] [address] Phone: tel: fax: [facility] [address] [place] [address] Drive [address] [place], [place] Phone: tel: fax: Referral ID Status Reason Start Date Expiration Date V isits Requested Visits Authorized [id number] Closed Specialty Services Required 05/02/2024 05/02/2025 1 1 Encounter Details Date Type Department Care Team (Late st Contact Info) Description 05/02/2024 Orders Only [facility] [address] [place], [place] [phone] Jess Paris MD [address] [place], [place] [phone] Urinary incontinence, unspecified type (Primary Dx) Social History Tobacco Use Types [...] AM EDT documented as of this encounter Plan of Treatment Scheduled Referrals Name Type Priority Associated Diagnoses Orde r Schedule Referral to Urology Outpatient Referral Routine Urinary incontinence, unspecified type Expected: 05/02/2024 (Approximate), Expires: 05/02/2025 documented as of this encounter Goals Goal Patient Goal Type Associated Problems Recent Progress Patient-Stated? Author Hemoglobin A1c < 7 Result Component 6.1(09/14/2024 7:25 AM EST) No Kiera Hassan, PharmD documented as of this encounter Visit Diagnoses Diagnosis Urinary incontinence, unspecified type- Primary documented in this encounter Additional Health Concerns Assessment Noted Time PHQ-9 Depression Total Score: 0 05/21/20 11:09 AM EDT documented as of this encounter Care Teams Client Services Manager Relationship Specialty Start Date End Date Grainger, Jess, MD [address] [place], [place] [phone] PCP - General Family Medicine 06/14/13 Kiera Hassan, Jesi [address] [place], [place] [phone] Pharmacist Internal Medicine 08/03/22 Ruth Silverio OD [address] [place], [place] [phone] Optometry 11/16/24 French Caring 06/27/24 Malathi Abraham APRN Psychiatry 11/16/24 documented as of this encounter
--- OUTSIDE RECORDS SUMMARY | 2024-11-21 15:41 | XMS_ITS | Encounter Summary ---
Author Organization [employer] Address [address] [facility] 7t [place] [address] Care Team Providers Care Email Marketing Assistant Name Role Phone Jess Paris MD Primary Care Provider [phone] Kiera Hassan PharmD Unavailable Ruth Silverio OD Unavailable Encounter Details Date Type Department Care Team (Late st Contact Info) Description 03/24/2022 [facility] [email or web address] Information Management [address] [place] [address] Jess Paris MD [address] [place] [address] Social History Tobacco Use Types Packs/Day Years [...] Diagnoses Not on filedocumented in this encounter Care Teams Email Marketing Assistant Relationship Specialty Start Date End Date Jess Paris MD [address] [place] [address] [phone] PCP - General Family Medicine 06/14/13 Kiera Hassan, PharmD [address] [place] [address] [phone] Pharmacist Internal Medicine 08/03/22 Ruth Silverio OD [address] [place] [address] Optometry 11/16/24 French Martin 06/27/24 Malathi Abraham APRN Psychiatry 11/16/24 documented as of this encounter
--- OUTSIDE RECORDS SUMMARY | 2024-11-21 15:41 | XMS_ITS | Encounter Summary ---
Author Organization [employer] Address [address] [facility] 7t [place] [address] Care Team Providers Care Maritime Pilot Name Role Phone Jess Paris MD Primary Care Provider [phone] Kiera Hassan PharmD Unavailable [phone] Ruth Silverio OD Unavailable Encounter Details Date Type Department Care Team (Late st Contact Info) Description 10/05/2022 Abstract [facility] MEDICINE [address] [place], [place] [phone] Jess Paris MD [address] [place], [place] [phone] Social History Tobacco Use Types Packs/Day Years [...] on filedocumented in this encounter Care Teams Maritime Pilot Relationship Specialty Start Date End Date Jess Paris MD [address] [place], [place] [phone] PCP - General Family Medicine 06/14/13 Kiera Hassan, Jesi [address] [place] [address] Pharmacist Internal Medicine 08/03/22 Ruth Silverio OD [address] [place] [address] Optometry 11/16/24 [facility] 06/27/24 Malathi Abraham APRN Psychiatry 11/16/24 documented as of this encounter
--- OUTSIDE RECORDS SUMMARY | 2024-11-21 15:41 | XMS_ITS | Encounter Summary ---
Author Organization [employer] Address [address] [facility] 7t [place] [address] Care Team Providers Care Embroidery Specialist Name Role Phone Jess Paris MD Primary Care Provider +- [phone] Kiera Hassan PharmD Unavailable [phone] Ruth Silverio OD Unavailable [phone] Encounter Details Date Type Department Care Team ([facility] st Contact Info) Description 09/17/2023 Telephone [facility] MED & PEDS [address] [place], [place] [phone] Sujey Mancuso LPN Social History Tobacco Use Types Packs/Day Years Used Date Smoking Tobacco: Never Smokeless Tobacco: Never Depression Answer Date Recorded Patient Health Questionnaire-9 Score 0 05/21/2023 Housing Stability Answer Date Recorded What is [...] Date Recorded Patient Health Questionnaire-2 Score 0 05/21/2023 Sex and Gender Information Value Date Recorded [...] documented as of this encounter Care Teams Embroidery Specialist Relationship Specialty Start Date End Date Jess Paris MD [address] [place] [address] PCP - General Family Medicine 06/14/13 Kiera Hassan, PharmD [address] [place] [address] Pharmacist Internal Medicine 08/03/22 Ruth Silverio OD [address] [place] [address] Optometry 11/16/24 Elara [facility] 06/27/24 Malathi Abraham APRN Psychiatry 11/16/24 documented as of this encounter
--- OUTSIDE RECORDS SUMMARY | 2024-11-21 15:41 | XMS_ITS | Encounter Summary ---
Author Organization [employer] Address [address] [facility] 7t [place] [address] Care Team Providers Care Program Development Manager Name Role Phone Jess Paris MD Primary Care Provider +- [phone] Kiera Hassan PharmD Unavailable Ruth Silverio OD Unavailable [phone] Encounter Details Date Type Department Care Team (Late st Contact Info) Description 11/16/2024 Orders Only [facility] MEDICINE [address] [place], [place] [phone] Jess Paris MD [address] [place], [place] [phone] Social History Tobacco Use Types Packs/Day Years [...] Noted Time PHQ-9 Depression Total Score: 0 05/03/20 24 8:55 AM EDT documented as of this encounter Care Teams Program Development Manager Relationship Specialty Start Date End Date Jess Paris MD [address] [place] [address] PCP - General Family Medicine 06/14/13 Kiera Hassan, PharmD [address] [place] [address] Pharmacist Internal Medicine 08/03/22 Ruth Silverio OD [address] [place] [address] Optometry 11/16/24 [facility] 06/27/24 Malathi Abraham LOOM INSPECTOR Psychiatry 11/16/24 documented as of this encounter
--- OUTSIDE RECORDS SUMMARY | 2024-11-21 15:41 | XMS_ITS | Encounter Summary ---
Author Organization [employer] Address [address] [facility] 7t [place] [address] Care Team Providers Care Porter Marina Name Role Phone Jess Paris MD Primary Care Provider [phone]- [phone] Kiera Hassan PharmD Unavailable Ruth Silverio OD Unavailable [phone] Encounter Details Date Type Department Care Team (Late st Contact Info) Description 2022 Abstract [facility] MEDICINE [address] [place], [place] [phone] Jess Paris MD [address] [place], [place] [phone] Social History Tobacco Use Types Packs/Day Years [...] on filedocumented in this encounter Care Teams Porter Marina Relationship Specialty Start Date End Date Jess Paris MD [address] [place], [place] [phone] PCP - General Family Medicine 06/14/13 Kiera Hassan, Jesi [address] [place] [address] Pharmacist Internal Medicine 08/03/22 Ruth Silverio OD [address] [place] [address] Optometry 11/16/24 [facility]/27/24 Malathi Abraham APRN Psychiatry 11/16/24 documented as of this encounter
--- NOTE | 2024-11-21 15:50 | PC.NURSE ---
patient asked if needed to urinate in attempt to collect urine sample. patient states Not now, I will later
[2024-11-21 16:00] VITALS: BP 117/77; PULSE 107; RESP 20; TEMP 36.3; O2SAT 98
[2024-11-21 16:39] LABS: Hematocrit 35.3 % (42.0-52.0); Hemoglobin 11.8 g/dl (14.0-18.0); Mean Corpuscular HGB Conc 33.4 g/dl (31.0-36.0); Mean Corpuscular Hemoglobin 28.4 pg (27.0-33.0); Mean Corpuscular Volume 85.1 fL (80.0-98.0); Red Blood Count 4.15 X10*6/uL (4.60-5.80); Red Cell Distribution Width 15.3 % (11.0-16.0); White Blood Count 10.3 X10*3/uL (4.8-10.8)
[2024-11-21 16:40] LABS: Mean Platelet Volume 9.2 fL (9.4-12.4); Platelet Count 161 X10*3/uL (160-400)
--- NOTE | 2024-11-21 16:55 | MHC.CARE ---
Patient will be adult IPLOC. Section 12a in chart for safety.
--- NOTE | 2024-11-21 19:07 | MHC.EDTECH ---
pt was given coffee per request, once pt was handed the cup of coffee, pt attempted to swallow the whole cup of fluids. pt was coughing continuously, RN made aware right away. No suction was needed. Pt stated reason for action was God wanted me to do that
--- NOTE | 2024-11-21 19:08 | PC.NURSE ---
patient was given coffee and when given cup took entire hot coffee and tried to drink entire cup at once, causing him to cough/spit it all out onto chest because of temperature. MD made aware. no further coffee to be given to patient.
--- NOTE | 2024-11-21 19:15 | PC.NURSE ---
pt incontinent of urine. gown/bed/pants changed. patient refused dinner meal.
[2024-11-21 21:17] VITALS: BP 128/86; PULSE 105; RESP 16; TEMP 36.6; O2SAT 97
--- NOTE | 2024-11-21 22:18 | PC.NURSE ---
pt ambulated with a steady gait when changing rooms, relocated to room 16 with a sitter at bedside
[2024-11-22 06:06] VITALS: BP 131/82; PULSE 122; RESP 16; TEMP 36.4; O2SAT 97
--- NOTE | 2024-11-22 06:12 | PC.NURSE ---
pt slept throughout the night, resting comfortably, breathing even and unlabored with eyes clothed. no apparent distress noted. sitter remains at bedside. pt woken for labs and vitals. tolerated well. still unable to obtain UA, urinal at bedside
--- NOTE | 2024-11-22 06:14 | MHC.EDTECH ---
Patient was not able to give urine sample ,rn aware
--- NOTE | 2024-11-22 06:14 | PC.NURSE ---
jesus rec completed with facility d/c papers in chart
--- NOTE | 2024-11-22 06:16 | PC.NURSE ---
Lenny reporting pt was anxious and tremulous, this RN went in to assess pt, asked how he was feeling if there was anything i can do to help him, he responds F... OFF .
[2024-11-22 06:17] LABS: Hematocrit 37.3 % (42.0-52.0); Hemoglobin 12.6 g/dl (14.0-18.0); Mean Corpuscular HGB Conc 33.8 g/dl (31.0-36.0); Mean Corpuscular Hemoglobin 28.9 pg (27.0-33.0); Mean Corpuscular Volume 85.6 fL (80.0-98.0); Mean Platelet Volume 9.1 fL (9.4-12.4); Platelet Count 155 X10*3/uL (160-400); Red Blood Count 4.36 X10*6/uL (4.60-5.80); Red Cell Distribution Width 15.4 % (11.0-16.0); White Blood Count 11.6 X10*3/uL (4.8-10.8)
--- NOTE | 2024-11-22 07:08 | PC.NURSE ---
report given to KENDY FLORENTINO
[2024-11-22] MEDS: FLUoxetine HCl 20 MG CAPSULE PO (10:19)
--- NOTE | 2024-11-22 10:35 | MHC.CARE ---
Pt was accepted to [facility] for today 11/22/24 by Maggie. The accepting doc is Dr. Moe and the ETA is pending ambulance availability. The address is [address] [place] [address], [place] [address]. Nurse to nurse may be required. Pod RN and CARE team have been notified of placement.
[2024-11-22 11:04] VITALS: BP 150/91; PULSE 121; RESP 18; TEMP 36.5
[2024-11-22] MEDS: LORazepam 1 MG TABLET PO (11:16)
[2024-11-22] MEDS: Metoprolol Succinate ER 25 MG TAB.ER.24H PO (11:26)
[2024-11-22] MEDS: metFORMIN HCl 1,000 MG TABLET 1000 MG PO (11:27)
[2024-11-22 12:40] VITALS: BP 119/80; PULSE 121; RESP 18; TEMP 36.6
[2024-11-22 12:43] VITALS: BP 119/80; PULSE 121; RESP 18; TEMP 36.6
--- NOTE | 2024-11-22 13:05 | MHC.CARE ---
T/w Dipika ([phone]) Pts alf manger on transport to [facility].
== END 2024-11-22 12:45 ==
PROVIDERS: Emergency Provider Emergency Medicine; PCP Family Medicine
DX: F25.9 Schizoaffective disorder, unspecified (principal); D64.9 Anemia, unspecified; R00.0 Tachycardia, unspecified; F41.9 Anxiety disorder, unspecified; E11.9 Type 2 diabetes mellitus without complications; I10 Essential (primary) hypertension; Z79.84 Long term (current) use of oral hypoglycemic drugs; Z79.899 Other long term (current) drug therapy
CPT/HCPCS: 36415; 80048; 80076; 80143; 80179; 80307; 82550; 83735; 85025; 85027; 93005; 99285; S9485

== ENCOUNTER → 2024-11-21 11:02 | Outpatient (BNV) | payer MEDICARE, MEDICAID, SELFPAY | PROVIDERS: Emergency Provider Emergency Medicine; PCP Family Medicine; Visit Provider Internal Medicine | DX: Z13.6 Encounter for screening for cardiovascular disorders (principal) | CPT/HCPCS: 93010 ==

== ENCOUNTER 2025-06-28 18:26 | Emergency (ER) | payer MEDICARE, MEDICAID, SELFPAY ==
[2025-06-28 18:37] VITALS: BP 140/75; PULSE 127; RESP 18; TEMP 36.2; O2SAT 97; BMI 22.9
--- NOTE | 2025-06-28 18:38 | ED_ITS ---
HPI - General Adult General Chief complaint: General Medical Stated complaint: needs to have med administered Time Seen by Provider: 06/28/25 20:16 Source: patient and other ([facility] Staff Member) Mode of arrival: ambulatory Limitations: no limitations History of Present Illness ED Provider: Haile MARTIN HPI narrative: Patient is a 49-year-old male presenting to the ED for administration of his monthly Invega shot. The patient was recently placed in a new [facility] home and did not have an in-warehouse consultant set up to administer the monthly injection. The patient has no acute complaints, [facility] worker reports the program is working on establishing a scheduled administration with nursing for future months. Related Data Home Medications ?Medication ?Instructions ?Recorded ?Confirmed atorvastatin 40 mg tablet 40 mg PO QPM 11/21/24 clozapine 50 mg tablet 450 mg PO QPM 11/21/2411/21 divalproex 500 mg tablet,extended 1,500 mg PO QPM 09/1611/21/24 release 24 hr fluoxetine 20 mg capsule 20 mg PO DAILY 11/21/2409/16 mirtazapine 15 mg tablet 15 mg PO QPM 11/21/24 Previous Rx's ?Medication ?Instructions ?Recorded metformin 1,000 mg tablet 1,000 mg PO BID #60 tabs metoprolol succinate 25 mg 25 mg PO DAILY #30 tabs tablet,extended release 24 hr mirtazapine 45 mg tablet 45 mg PO BEDTIME #30 tabs Allergies Allergy/AdvReac Type Severity Reaction Status Date / Time haloperidol (From Haldol) Allergy Intermediate Agitated Verified 06/28/25 18:41 lithium Allergy Intermediate Agitated Verified 06/28/25 18:41 oxcarbazepine (From Allergy Unknown RASH Verified 06/28/25 18:41 TRILEPTAL) fluphenazine (From Prolixin) Allergy akathisia Verified 06/28/25 18:41 Review of Systems Review of Systems: Yes all other systems are reviewed and are negative [facility] Past Medical History Medical History Acute anxiety Schizoaffective disorder Diabetes 1.5, managed as type 2 Social History Social History Household Members: Other Household Members Other:: roommate Housing: Apartment Housing Other:: [facility] supported apartment Do you presently have visiting nurse or other home services: Yes Alcohol intake: former Comment: utilizing a walker Patient Tobacco Use Status: Never used Tobacco Tobacco use type: Cigarette e-Cigarette/Vaping Use: Never Used Second Hand Smoke Exposure: No Advance Directives: No Advance Directives Information Provided: No Do you have a plan to hurt others: No Plan service: No Sexual orientation: Straight/Heterosexual Physical Exam ED Vital Signs: Vital Signs - 24 hr 06/28/25 18:37 Temperature 97.1 F Pulse Rate 127 H Respiratory Rate 18 Blood Pressure 140/75 H Pulse Oximetry 97 Oxygen Delivery Method Room Air BMI result Body Mass Index 22.9 CONSTITUTIONAL: The patient appears non-toxic, well nourished and in no acute distress. Vital signs as documented. HEAD: Atraumatic, normocephalic. EYES: EOMs grossly intact, pupils equal, conjunctiva clear, no exudate. ENT: Nares patent, no discharge. Airway patent, no audible stridor, visible mucosa is pink and moist without noted lesions. NECK: trachea is midline, no obvious masses or gross abnormalities. CHEST: Symmetric movement, normal appearance. LUNGS: Non-labored work of breathing. CARDIAC: No evidence of hypoperfusion. ABDOMEN: Nondistended, no obvious injury. : Deferred. EXTREMITIES: Moves all extremities spontaneously without reported pain. No obvious injury or deformity noted. NEURO: Alert, with flattened affect, baseline mentation per [facility] staff. CN II- XII appear grossly intact. Cerebellar Functioning grossly intact. Speech clear and appropriate. SKIN: Warm, dry, mild pallor, reported as baseline. No rashes or lesions noted. Course Course Course Narrative: Rapid medical examination performed in triage by Jenifer Vargas PA-C: Patient is a 49 year old assigned male at presenting to the emergency department today for his invega shot. [facility] staff states that the patient is here to have his invega shot administered to him because their staff is not trained / able to administer the shot. Detailed physical exam and review of systems are deferred to the box tender. [Patient placed back in the waiting room pending room availability. Medical Decision Making Medical Decision Making MDM Narrative: 8:24 PM 06/28/2025 (Hayden MARTIN): Patient is a 49-year-old male presenting to the ED for administration of his monthly Invega shot. The patient was recently placed in a new [facility] home and did not have an in-warehouse consultant set up to administer the monthly injection. The patient has no acute complaints, [facility] worker reports the program is working on establishing a scheduled administration with nursing for future months. On exam patient is nontoxic appearing, no acute complaint. Medication was checked and verified by pharmacy, medication will be administered by RN in the ED. Patient will be discharged to the care of [facility] with outpatient follow up. External Record Review External record reviewed: Outpatient record Discharge Plan Discharge Clinical Impression: Encounter for medication administration Patient Disposition: Home, Self-Care Additional Instructions: Thank you for choosing [facility]'s Emergency Department for your care today. At this time there is no indication for admission to the hospital or continued ED observation, and it is safe to discharge you home. You received your Invega injection from a nurse in the emergency department today. Please work with your outpatient program to schedule a nursing visit in coming months for future administrations of your monthly Invega injection. Please also follow up with your primary care physician for re-evaluation, additional management of your scheduled medications, and continued preventative care. If you do not have a primary care physician, please call the [facility] at [phone] to establish a new primary care physician. While waiting to establish your new primary care physician, you can call our Walk-in Care [facility] at [phone] for non-emergency needs. Please return to the emergency department if you develop a fever over 100.4 that does not improve with Tylenol or Ibuprofen, recurrent vomiting, or any other new or worsening symptoms or concerns. Prescriptions: No Action metformin 1,000 mg Tablet 1,000 mg PO BID Qty: 60 0RF mirtazapine 45 mg tablet 45 mg PO BEDTIME Qty: 30 0RF metoprolol succinate 25 mg Tablet Extended Release 24 Hr 25 mg PO DAILY Qty: 30 0RF Protocol: Hold for SBP/HR < HOLD for SBP < : 90 HOLD for HR < : 60 atorvastatin 40 mg tablet 40 mg PO QPM divalproex 500 mg tablet extended release 24 hr 1,500 mg PO QPM mirtazapine 15 mg tablet 15 mg PO QPM fluoxetine 20 mg capsule 20 mg PO DAILY clozapine 50 mg tablet 450 mg PO QPM Print Language: Unable To Collect
--- OUTSIDE RECORDS SUMMARY | 2025-06-28 19:07 | XMS_ITS | Clinical Summary ---
Author Organization [employer] Address [address] [facility] [address] [place] [address] Care Team Providers Care Test Clerk Name Role Phone Jess Paris MD Primary Care Provider [phone] Kiera Hassan PharmD Unavailable Ruth Silverio OD Unavailable [phone] Allergies Active Allergy Reactions Criticality Noted Date Comments Fluphenazine 03/09/2012 Other reaction(s): akathesia , akathesia Haloperidol 03/09/2012 Other reaction(s): akathesia [place] 12/29/2017 Oxcarbazepine 12/15/2018 Medications * This document contains information received from the source organization and may not represent a complete record from that organization. polyethylene glycol, PEG, 3350 (MiraLax) 17 GM/SCOOP powderIndications: Constipation, unspecified constipation type 17 grams in 8-12 oz fluid like water at bedtime prn constipation 527 g 2 10/31/19 23 Active sennosides (Senokot) 8.6 MG tabletIndications: Constipation, unspecified constipation type 1-2 tabs po nightly prn constipation 60 tablet 11 10/31/19 23 Active selenium sulfide (Selsun) 2.5 % shampooIndications :Seborrheic dermatitis Use three times a week in shower to hair and forehead 118 mL 3 05/21/20 23 Active TRUEplus Lancets 28G miscIndications:Ty pe 2 diabetes mellitus with hyperglycemia, without long-term current use of insulin (HCC) TEST BLOOD SUGAR TWICE DAILY 100 each 11 08/18/20 23 Active empagliflozin (Jardiance) 25 MGIndications:Diab etes mellitus without complication (HCC) Take 1 tablet (25 mg) by mouth in the morning. 30 tablet 11 08/27/19 24 Active metFORMIN (Glucophage) 1000 MG tabletIndications: Diabetes mellitus without complication (HCC) TAKE 1 TABLET BY MOUTH TWICE DAILY WITH MEALS 180 tablet 3 09/01/19 24 Active metoprolol succinate XL (Toprol-XL) 25 MG 24 hr tabletIndications: Elevated blood-pressure reading without diagnosis of hypertension Take 1 tablet (25 mg) by mouth in the morning. 90 tablet 3 10/14/19 24 Active QUEtiapine (SEROquel) 25 MG tablet Take 1 tablet twice daily as needed 10/12/19 24 Active atorvastatin (Lipitor) 40 MG tabletIndications: Diabetes mellitus without complication (HCC) TAKE 1 TABLET BY MOUTH ONCE DAILY 30 tablet 3 01/17/20 24 Active dulaglutide (Trulicity) 3 MG/0.5ML solution pen-injectorIndica tions:Type 2 diabetes mellitus with hyperglycemia, without long-term current use of insulin (HCC) INJECT ONE PEN (3 MG) SUBCUTANEOUSLY ONCE WEEKLY 4 each 6 01/19/20 24 Active glucose blood (FREESTYLE LITE) test stripIndications:T ype 2 diabetes mellitus with hyperglycemia, without long-term current use of insulin ([facility]) USE TO CHECK BLOOD SUGAR TWICE A DAY 100 each 11 03/14/20 24 Active triamcinolone (Kenalog) 0.1 % cream Apply topically Once per day. To face 02/23/20 24 Active gabapentin (Neurontin) 800 MG tablet Take 1 tablet by mouth 3 times daily. 06/08/20 Active mirtazapine (Remeron) 45 MG tablet Take 1 tablet by mouth at bedtime. 06/08/20 24 Active chlorproMAZINE (Thorazine) 25 MG tablet Take 2 tablets by mouth 2 times daily. 08/21/20 24 Active escitalopram (Lexapro) 20 MG tablet Take 1 tablet by mouth Once per day. 08/21/20 24 Active LORazepam (Ativan) 2 MG tablet Take 1 tablet by mouth 3 times daily. 08/21/20 Active OLANZapine zydis (ZyPREXA) 10 MG disintegrating tablet Take 1 tablet by mouth 2 times daily. 08/21/20 Active Active Problems Problem Noted Date Diagnosed Date [...] 09/18 Overview (01/19/2024): -psychiatry Haile Gutierrez NP [phone] -therapistTeena [phone] and [facility]. -Chitra is worker on [facility] outreach team [phone] -day program at [facility] prior to the pandemic, currently ina -visiting RN : Eleuterio [phone] with [facility] since 02/2018:case aide:Isabel Harry [phone], , Assessment & Plan (01/19/2024 12:13 PM EDT): -psychiatry Haile Gutierrez NP [phone] -therapist, Teena [phone] and [facility]. -Chitra is worker on [facility] outreach team [phone] -day program at [facility] prior to the pandemic, currently ina -visiting RN : Eleuterio [phone] with [facility] since 02/2018:case aide:Isabel Harry [phone], , Other specified health status 05/21/2023 Overview (06/14/2024): -next comprehensive annual evaluation due after 05/24/2024 -eye care facilitated by [facility] -dental home is in [place], last seen on 11/2022 -health care proxy Assessment & Plan (05/21/2023 11:26 AM EDT): -next physical exam due after 06/15/2023 -eye care facilitated by [facility] -dental home is in [place], last seen on 11/2022 -Referral to GI for colon cancer screening 05/21/2023 Left foot pain 05/21/2023 Overview (05/21/2023): -Referral done to PT 05/21/2023 -High risk for falls due to medication side effects. We will see if he can get PT at home, will call his [facility] for PT assistance Assessment & Plan (05/21/2023 12:00 PM EDT): -Referral done to PT 05/21/2023 -High risk for falls due to medication side effect. We will see if he can get PT at home, will call his [facility] for PT assistance Bilateral impacted cerumen 05/21/2023 [...] recommended he use selenium sulfide shampoo and [place]- Smoothe scalp oil, as well as Ketoconazole [...] recommended he use selenium sulfide shampoo and [place]- Smoothe scalp oil, as well as Ketoconazole [...] colon cancer screening 05/21/2023, number given to [facility] to contact, new referral placed 01/19/24 Assessment & Plan (01/19/2024 12:14 PM EDT): referral GI colon cancer screening 05/21/2023, number given to [facility] to contact, new referral placed 01/19/24 Assessment [...] IU daily Type 2 diabetes mellitus wit hout complication, without long-term current use of insulin 03/22/2012 [...] BID -glipizide discontinued on 04/16/22 Chronic schizophrenia ([facility]) 08/23/1959 Overview (09/27/2024): Pt's hospitalizations include 06/2020 to 09/2020 and 09/23/2023. prior to that is was 11/2014-12/2014 treated with changes in medication and ECT. Stable with psychiatry Chris Arvizu, NGUYỄN [phone], therapist, and [facility]. We had a three way call with his case aide Chitra ([phone]) who will reach out to precriber and his nurse Stephani ([phone]) left message to check if he needs refills on antything and to request if needed. He is in day program at [facility] prior to the pandemic and has [facility] in the home. -Admitted 09/23/23 for [...] anxiety, decrease daytime sedation. -Admitted 03/20/24 to [facility] -Admitted 07/11/24 to [facility] for section 12/self injurious behavior -CT08/09/24 CT/CT head/brain wo IV con IMPRESSION: No evidence of acute intracranial hemorrhage or edematous territorial infarction. Mild underlying microangiopathy and generalized cerebral volume loss. Recent Hospitalizations include [facility] (06/13/24-06/26/24), [facility] (06/29/24 - 08/21/24), [facility] (08/30/24 - 09/05/24), [facility] (09/05/24 - 09/06/24), and [facility] (09/06/24 to - 09/07/24). Appears to [...] ECT. Stable with psychiatry Chris Arvizu NP [phone], therapist, and [facility]. We had a three way call with his case aide Chitra ([phone]) who will reach out to precriber and his nurse Stephani ([phone]) left message to check if he needs refills on antything and to request if needed. He is in day program at [facility] prior to the pandemic and has [facility] in the home. Assessment & Plan (10/30/2022 9:05 AM EST): Pt's last hospitalization was 06/2020 to 09/2020, prior to that is was 11/2014- 12/2014 treated with changes in medication and ECT. Stable with psychiatry Chris Arvizu, NGUYỄN [phone], therapist, and [facility]. We had a three way call with his case aide Chitra ([phone]) who will reach out to precriber and his nurse Stephani ([phone]) left message to check if he needs refills on antything and to request if needed. He is in day program at [facility] prior to the pandemic and has [facility] [facility] in the home. Severe obesity (CMS/HCC) 08/23/1959 Resolved Problems Problem Noted Date Diagnosed Date Resolved Date Hyperlipidemia 11/09/2018 09/10/2022 Immunizations Immunization Administration Dates Next Due Hep B, adult 05/21/2023,06/30/2017,06/14/2015 Influenza injectable quadriv alent IIV4 with preservative 07/13/2018,06/30/2017 Influenza injectable quadriv alent preservative free 05/21/2023,06/15/2022,07/24/2020,06/14,12/17/2014 Influenza, IIV3, injectable 08/10/2011 Influenza, Split (incl. catarino fied surface antigen) 05/22/2013 Influenza, seasonal, injecta ble, preservative free 08/30/2024,06/14/2012 Moderna Covid-19 Vaccine 12+ 06/04/2023,11/22/19,10/24/2020 Moderna Covid-19 Vaccine 6+ Bivalent 08/11/2022 Pfizer [...] 84 01/19/2024 11:34 AM EDT Temperature 37.2 C (98.9 F) 01/19/2024 11:34 AM EDT Respiratory Rate 20 01/19/2024 11:34 AM EDT [...] 1975 FIT 1975 FOBT 1975 Sigmoidoscopy 1975 Disability Screening 1975 Eye Exam 1985 Alcohol/Substance Use Screening 1987 Family Planning (PISQ) 1990 Diabetes: Urine Protein Screening 07/17/2023 07/17/2022 Lipid Panel 12/03/2023 12/02/2022, 06/23, 10/24/2020 DTaP/Tdap/Td Vaccines (2 - Td or Tdap) 12/17/2024 12/17/2014, 03/23/1997 Diabetes: Foot Exam 01/18/2025 01/19/2024, 01/19/2024, 01/19/2024, Additional history exists COVID-19 Vaccine ( season) 2025 06/04/2023, 08/11/2022, 06/18/2021, Additional history exists Influenza Vaccine (#1) 2025 , 05/21/2023, 06/15/2022, Additional history exists Depression Screening 05/03/2025 05/03/2024, 05/03/20 24 SDOH Screening 06/01/2025 06/01/2024 Diabetes: Hemoglobin A1C 08/07/202502/05/ 025, 11/28/2024, 09/14/2024, Additional history exists Zoster Vaccines (1 of 2) 2025 Tobacco Screening 11/16/2025 11/16/2024 RSV Patients and Patients Aged 60 years or older (1 - 1-dose 75+ series) 2050 Hepatitis B Vaccines Completed 05/21/2023, 06/30/2017, 06/14/2015 Pneumococcal Vaccine: Pediatrics (0 to 5 Years) and At-Risk Patients (6 to 49) Years Completed 05/21/2023, 06/14/2012, 05/31/2008, Additional history exists HIV Screening Completed 01/19/2024 Hepatitis C Screening Completed 01/19/2024 HIB Vaccines Aged Out No longer eligi [...] patient's age to complete this topic Meningococcal B Vaccine Aged Out No l onger eligible based on patient's age to complete [...] Author Hemoglobin A1c < 7 Result Component 4.8(02/05/2025 1:55 PM EDT) No Kiera Hassan PharmD Procedures Procedure Name Priority Date/Time Associated Diagnosis Comments POCT GLYCATED HEMOGLOBIN, TOTAL Routine 01/19/2024 2:44 PM EDT Type 2 diabetes mellitus with hyperglycemia, without long-term current use of insulin ([facility]) HEPATITIS C AB W/REFL TO HCV RNA, [...] Recently Relevant to Health Maintenance Results * (ABNORMAL) POCT A1C (01/19/2024 2:44 PM EDT) [facility] Hemoglobin A1C 6.1(A) 4.0 - 6.0 % QC Media Lot # [id number] Lot# Expiration Date Blood 01/19/2024 2:44 PM EDT Jess Paris MD POINT OF CARE TEST ENTER/E DIT ORDERABLES Final Result * Hepatitis C Antibody with Reflex to HCV, RNA, Quantitative, Real-Time PCR (01/19/2024 12:58 PM EDT) [facility] Hepatitis C Antibody Nonreactive Nonreactive [facility] Comment:Antibodies to HCV no t detected; does not exclude early acuteHCV infection. Blood Venous blood specimen / Unknown 01/19/2024 12:58 PM EDT 01/19/2024 4:44 PM EDT Jess Paris MD LAB BLOOD ORDERABLES Final Result [facility] [address] [place] [phone] * HIV-1/2 Antigen and Antibodies, Fourth Generation, with Reflexes (01/19/2024 12:58 PM EDT) [facility] HIV AB/AG Nonreactive Nonreactive [facility] Comment:HIV-1 p24 Ag and/or HIV-1/HIV-2 Ab not detected.A test result that is nonreactive does not exclude thepossibility of exposure to or infection with HIV-1 and/orHIV-2. Nonreactive results in this assay for individualswith prior exposure to HIV-1 and/or HIV-2 may be due toantigen and antibody levels that are below the limit ofdetection of this assay.The iSTAR HIV Ag/Ab Combo assay result andsupplemental assay results should be interpreted inconjunction with the patient's clinical presentation,history and other laboratory results. If the results areinconsistent with clinical evidence, additional testing issuggested to confirm the result. Blood Venous blood specimen / Unknown 01/19/2024 12:58 PM EDT 01/19/2024 4:44 PM EDT Jess Paris MD LAB BLOOD ORDERABLES Final Result Performing Organization Address [facility] Co de Phone Number [facility] [address] [place] [phone] * Lipid Panel, Standard (12/02/2022 11:02 AM EDT) Triglycerides 297 mg/dL [facility] Comment:Desirable Triglyceri de: less than 150 mg/dLBorderline High Triglyceride 150-199 mg/dLHigh Triglyceride: 200-499 mg/dLVery High Triglyceride: greater than or equal to 5OO mg/dL Cholesterol 182 mg/dL [facility] Comment:Desirable Cholestero l: less than 200 mg/dLBorderline High Cholesterol: 200-239 mg/dLHigh Cholesterol: greater than 239 mg/dL LDL Cholesterol Calculated 97 mg/dl [facility] Comment:Desirable LDL: less than 100 mg/dLNear Optimal/Above Optimal LDL: 110- 129 mg/dLBorderline High LDL: 130-159 mg/dLHigh LDL: 160-189 mg/dLVery High LDL: greater than or equal to 190 mg/dL HDL Cholesterol 26 mg/dL [facility] Comment:Desirable HDL: great er than 40 mg/dL Note: This HDL assay may give artificially low results in patients with liver disease. 12/02/2022 11:0 2 AM EDT 12/02/2022 11:02 AM EDT [facility] External Provider LAB BLO OD ORDERABLES Final Result Performing Organization Address [facility] Co de Phone Number [facility] [address] [place] [phone] * MICROALBUMIN/CREATININE RATIO, RANDOM URINE (07/17/2022 9:00 AM EST) Creatinine Urine 63.89 mg/dL [facility] Microalbum/Creati nine Ratio Ur TNP ug/mg cr [facility] Comment: Unable to calculate albumin/creatinine ratio due to low microalbumin or creatinine result. Microalbumin Urine <5.0 mg/L [facility] 07/17/2022 9:00 AM EST us Jess Paris MD HISTORICAL/NON ORDERABLE L ABS Final Result [facility] from Last 3 Months or Most Recently Relevant to Health Maintenance Insurance MEDICARE [facility] Care Teams Test Clerk Relationship Specialty Start Date End Date [place], MD Jess [address] [place] [address] PCP - General Family Medicine 06/14/13 Kiera Hassan, PharmD [address] [place] [address] Pharmacist Internal Medicine 08/03/22 Ruth Silverio OD [address] [place] [address] [phone] Optometry 11/16/24 [facility] 06/27/24 Malathi Abraham APRN Psychiatry 11/16/24
--- OUTSIDE RECORDS SUMMARY | 2025-06-28 19:07 | XMS_ITS | Encounter Summary ---
Author Organization [employer] Address [address] [facility] [address] [place] [address] Care Team Providers Care Community Liaison Name Role Phone Jess Paris MD Primary Care Provider +1- [phone] Kiera Hassan PharmD Unavailable Ruth Silverio OD Unavailable Encounter Details Date Type Department Care Team (Late st Contact Info) Description 09/21/2022 Orders Only [facility] MEDICINE [address] [place], [place] [phone] Jess Paris MD [address] [place], [place] [phone] Other specified diabetes mellitus with hyperglycemia, without [...] hyperglycemia, without long-term current use of insulin (HCC)- Primary documented in this encounter Care Teams Community Liaison Relationship Specialty Start Date End Date Jess Paris MD [address] [place], [place] [phone] PCP - General Family Medicine 06/14/13 Kiera Hassan, AmandoD [address] [place], [place] [phone] Pharmacist Internal Medicine 08/03/22 Ruth Silverio OD [address] [place] [address] [phone] Optometry 11/16/24 [facility] 06/27/24 Malathi Abraham APRN Psychiatry 11/16/24 documented as of this encounter
--- OUTSIDE RECORDS SUMMARY | 2025-06-28 19:07 | XMS_ITS | Encounter Summary ---
Author Organization [employer] Address [address] [facility] 7t [place] [address] Care Team Providers Care Division Head Name Role Phone Jess Paris MD Primary Care Provider [phone] Kiera Hassan PharmD Unavailable Ruth Silverio OD Unavailable [phone] Encounter Details Date Type Department Care Team (Late st Contact Info) Description 11/16/2024 Orders Only [facility] [address] [place], [place] [phone] Jess Paris MD [address] [place], [place] [phone] Social History Tobacco Use Types Packs/Day Years [...] Component 4.8(02/05/2025 1:55 PM EDT) No Kiera Hassan, PharmD documented as of this encounter Visit Diagnoses Not on filedocumented in this encounter Additional Health Concerns Assessment Noted Time PHQ-9 Depression Total Score: 0 05/03/20 24 8:55 AM EDT documented as of this encounter Care Teams Division Head Relationship Specialty Start Date End Date Jess Paris MD [address] [place] [address] PCP - General Family Medicine 06/14/13 Kiera Hassan, PharmD [address] [place] [address] Pharmacist Internal Medicine 08/03/22 Ruth Silverio OD [address] [place] [address] Optometry 11/16/24 Elara Caring 06/27/24 Malathi Abraham CIRCULAR KNITTER HELPER Psychiatry 11/16/24 documented as of this encounter
--- OUTSIDE RECORDS SUMMARY | 2025-06-28 19:07 | XMS_ITS | Encounter Summary ---
Author Organization [employer] Address [address] [facility] 7t [place] [address] Care Team Providers Care Chemist Intern Name Role Phone Jess Paris MD Primary Care Provider +- [phone] Kiera Hassan PharmD Unavailable Ruth Silverio OD Unavailable [phone] Reason for Referral * Consultation (Routine) - Closed Specialty Diagnoses / Procedures Referred By Contac t Referred To Contact Urology Diagnoses Urinary incontinence, unspecified type Jess Paris MD [address] [place] [address] Phone: tel: fax: [facility] [address] [place], [place] Phone: tel: fax: Referral ID Status Reason Start Date Expiration Date V isits Requested Visits Authorized [id number] Closed Specialty Services Required 05/02/2024 05/02/2025 1 1 Encounter Details Date Type Department Care Team (Late st Contact Info) Description 05/02/2024 Orders Only [facility] [address] [place] [address] Jess Paris MD [address] [place], [place] [phone] Urinary incontinence, unspecified type (Primary Dx) Social [...] AM EDT documented as of this encounter Functional Status * Over the past 2 weeks, how often have you been bothered by any of the following problems? Question Answer Date of Assessment Author Patient Health Questionnaire-2 Score 0 05/03/2024 8:55 AM EDT Garrett Bryant LICSW * Over the last 2 weeks, how often have you been bothered by any of the following problems? Question Answer Date of Assessment Author Feeling nervous, anxious, or on edge 1 05/03/2024 8:55 AM EDT Iona Bryant LICSW Not being able to stop or control worrying 0 05/03/2024 8:55 AM EDT Iona Bryant LICSW Worrying too much about different things 0 05/03/2024 8:55 AM EDT Iona Bryant LICSW Trouble relaxing 0 05/03/2024 8:55 AM EDT Liseth Murry LICSW Being so restless that it is hard to sit still 0 05/03/2024 8:55 AM EDT Iona Bryant LICSW Becoming easily annoyed or irritable 0 05/03/2024 8:55 AM EDT Iona Bryant LICSW Feeling afraid as if something awful might happen 0 05/03/2024 8:55 AM EDT Liseth Bryant LICSW JUANCHO-7 Total Score 1 05/03/2024 8:55 AM EDT Liseth Bryant LICSW * Over the past 2 weeks, how often have you been bothered by any of the following problems? Question Answer Date of Assessment Author Little interest or pleasure in doing things Not at all 05/03/2024 8:55 AM DELFINT Iona Bryant LICSW Feeling down, depressed, or hopeless Not at all 05/03/2024 8:55 AM EDT Iona Bryant LICSW Trouble falling or staying asleep, or sleeping too much Not at all 05/03/2024 8:55 AM EDT Liseth Bryant LICSW Feeling tired or having little energy Not at all 05/03/2024 8:55 AM DELFINT Iona Bryant LICSW Poor appetite or overeating Not at all 05/03/2024 8: 55 AM EDT Liseth Bryant LICSW Feeling bad about yourself - or that you are a failure or have let yourself or your family down Not at all 05/03/2024 8:55 AM EDT Iona Bryant LICSW Trouble concentrating on things, such as reading the newspaper or watching television Not at all 05/03/2024 8:55 AM EDT Iona Bryant LICSW Moving or speaking so slowly that other people could have noticed? Or the opposite - being so fidgety or restless that you have been moving around a lot more than usual. Not at all 05/03/2024 8:55 AM EDT Liseth Hernandez LICSW Thoughts that you would be better off or hurting yourself in some way Not at all 05/03/2024 8:55 AM EDT Orlando Bryant LICSW Patient Health Questionnaire-9 Score 0 05/03/2024 8:55 AM EDT Garrett Bryant LICSW documented as of this encounter Plan of Treatment Scheduled Referrals Name Type Priority Associated Diagnoses Orde r Schedule Referral to Urology Outpatient Referral Routine Urinary incontinence, unspecified type Expected: 05/02/2024 (Approximate), Expires: 05/02/2025 documented as of this encounter Goals Goal Patient Goal Type Associated Problems Recent Progress Patient-Stated? Author Hemoglobin A1c < 7 Result Component 4.8(02/05/2025 1:55 PM EDT) No Kiera Hassan, AmandoD documented as of this encounter Visit Diagnoses Diagnosis Urinary incontinence, unspecified type- Primary documented in this encounter Additional Health Concerns Assessment Noted Time PHQ-9 Depression Total Score: 0 05/21/20 23 11:09 AM EDT documented as of this encounter Care Teams Chemist Intern Relationship Specialty Start Date End Date Jess Paris MD [address] [place] [address] PCP - General Family Medicine 06/14/13 Kiera Hassan, PharmD [address] [place] [address] Pharmacist Internal Medicine 08/03/22 Ruth Silverio OD [address] [place] [address] Optometry 11/16/24 French Martin 06/27/24 Malathi Abraham APRN Psychiatry 11/16/24 documented as of this encounter
--- OUTSIDE RECORDS SUMMARY | 2025-06-28 19:07 | XMS_ITS | Encounter Summary ---
Author Organization [employer] Address [address] [facility] 7t [place] [address] Care Team Providers Care Reliability Specialist Name Role Phone Jess Paris MD Primary Care Provider [phone] Kiera Hassan PharmD Unavailable [phone] Ruth Silverio OD Unavailable [phone] Encounter Details Date Type Department Care Team (Late st Contact Info) Description 2022 Abstract [facility] [address] [place] [address] Jess Paris MD [address] [place], [place] [phone] Social History Tobacco Use Types Packs/Day Years [...] on filedocumented in this encounter Care Teams Reliability Specialist Relationship Specialty Start Date End Date Jess Paris MD [address] [place], [place] [phone] PCP - General Family Medicine 06/14/13 Kiera Hassan, AmandoD [address] [place] [address] Pharmacist Internal Medicine 08/03/22 Ruth Silverio OD [address] [place] [address] Optometry 11/16/24 French Martin 06/27/24 Malathi Abraham TUCKPOINTER Psychiatry 11/16/24 documented as of this encounter
--- OUTSIDE RECORDS SUMMARY | 2025-06-28 19:07 | XMS_ITS | Encounter Summary ---
Author Organization [employer] Address [address] [facility] 7t [place] [address] Care Team Providers Care Filter Pulp Washer Name Role Phone Jess Paris MD Primary Care Provider [phone] Kiera Hassan PharmD Unavailable Ruth Silverio OD Unavailable [phone] Reason for Visit * Reason Onset Date Comments FYI 05/02/2024 Encounter Details Date Type Department Care Team (Late st Contact Info) Description 05/02/2024 Telephone [facility] 230 [place], [place] [phone] Jess Paris MD [address] [place], [place] [phone] FY Social History Tobacco Use Types Packs/Day Years [...] Not at all 05/03/2024 8: 55 AM DELFINT Liseth Bryant LICSW Feeling bad about yourself - or that you are a failure or have let yourself or your family down Not at all 05/03/2024 8:55 AM DELFINT Iona Bryant LICSW Trouble concentrating on things, such as reading the newspaper or watching television Not at all 05/03/2024 8:55 AM DELFINT Iona Bryant LICSW Moving or speaking so slowly that other people could have noticed? Or the opposite - being so fidgety or restless that you have been moving around a lot more than usual. Not at all 05/03/2024 8:55 AM DELFINT Liseth Hernandez LICSW Thoughts that you would be better off or hurting yourself in some way Not at all 05/03/2024 8:55 AM Orlando Metcalf LICSW Patient Health Questionnaire-9 Score 0 05/03/2024 8:55 AM Garrett Metcalf LICSW documented as of this encounter Miscellaneous Notes * Telephone Encounter - Ciera Crenshaw - 05/02/2024 12:59 PM EDT Tc from [facility] office calling to inform pt missed visit and would not be r/s till August. [employer] contact phone # [phone]. documented in this encounter Plan of Treatment [...] documented as of this encounter Care Teams Filter Pulp Washer Relationship Specialty Start Date End Date Jess Paris MD [address] [place] [address] PCP - General Family Medicine 06/14/13 Kiera Hassan, PharmD [address] [place] [address] Pharmacist Internal Medicine 08/03/22 Ruth Silverio OD [address] [place] [address] Optometry 11/16/24 French Martin 06/27/24 Malathi Abraham APRN Psychiatry 11/16/24 documented as of this encounter
--- OUTSIDE RECORDS SUMMARY | 2025-06-28 19:07 | XMS_ITS | Encounter Summary ---
Author Organization [employer] Address [address] [facility] 7t [place] [address] Care Team Providers Care Adult Psychiatrist Name Role Phone Jess Paris MD Primary Care Provider [phone] Kiera Hassan PharmD Unavailable [phone] Ruth Silverio OD Unavailable Encounter Details Date Type Department Care Team (Late st Contact Info) Description 03/24/2022 [facility] [address] [place], [place] [phone] Jess Paris MD [address] [place], [place] [phone] Social History Tobacco Use Types Packs/Day Years [...] on filedocumented in this encounter Care Teams Adult Psychiatrist Relationship Specialty Start Date End Date Jess Paris MD [address] [place], [place] [phone] PCP - General Family Medicine 06/14/13 Kiera Hassan, PharmD [address] [place] [phone] Pharmacist Internal Medicine 08/03/22 Ruth Silverio OD [address] [place] [address] Optometry 11/16/24 French Martin 06/27/24 Malathi Abraham APRN Psychiatry 11/16/24 documented as of this encounter
--- OUTSIDE RECORDS SUMMARY | 2025-06-28 19:07 | XMS_ITS | Encounter Summary ---
Author Organization [employer] Address [address] [facility] 7t [place] [address] Care Team Providers Care Locomotive Engineer Diesel Name Role Phone Jess Paris MD Primary Care Provider [phone] Kiera Hassan PharmD Unavailable Ruth Silverio OD Unavailable [phone] Encounter Details Date Type Department Care Team (Late st Contact Info) Description 10/05/2022 Abstract [facility] [address] [place] [address] Jess Paris MD [address] [place], [place] [phone] Social History Tobacco Use Types Packs/Day Years [...] on filedocumented in this encounter Care Teams Locomotive Engineer Diesel Relationship Specialty Start Date End Date Jess Paris MD [address] [place], [place] [phone] PCP - General Family Medicine 06/14/13 Kiera Hassan, AmandoD [address] [place] [address] Pharmacist Internal Medicine 08/03/22 Ruth Silverio OD [address] [place] [address] Optometry 11/16/24 French Martin 06/27/24 Malathi Abraham GALVANIZER Psychiatry 11/16/24 documented as of this encounter
--- OUTSIDE RECORDS SUMMARY | 2025-06-28 19:07 | XMS_ITS | Encounter Summary ---
Author Organization [employer] Address [address] [facility] [address] 7[address] [place] [address] Care Team Providers Care Electron Beam Welder Name Role Phone Jess Paris MD Primary Care Provider +- [phone] Kiera Hassan PharmD Unavailable [phone] Ruth Silverio OD Unavailable [phone] Encounter Details Date Type Department Care Team (Late st Contact Info) Description 09/17/2023 Telephone [facility] [address] [place], [place] [phone] Sujey Mancuso LPN Social History Tobacco Use [...] documented as of this encounter Care Teams Electron Beam Welder Relationship Specialty Start Date End Date Jess Paris MD [address] [place] [address] PCP - General Family Medicine 06/14/13 Kiera Hassan, PharmD 230 [place] [address] Pharmacist Internal Medicine 08/03/22 Ruth Silverio OD [address] [place] [address] Optometry 11/16/24 Elara Caring 06/27/24 Malathi Abraham APRN Psychiatry 11/16/24 documented as of this encounter
--- NOTE | 2025-06-28 19:17 | PC.NURSE ---
Watson Solomon IM injection obtained from patient. Pharmacy verification form filled out. Medication brought to pharmacy by this RN/pending medication administration.
--- NOTE | 2025-06-28 20:31 | MHC.CM.ED ---
Pt is with a coordinator volunteer services from the halfway, Adeline. Pt is not very talkative. Adeline tells that Ruddy was at [facility] and came to them about 3 weeks ago. This med, Invega Sustenna 234mg IM monthly is new for this patient. He had a dose on 05/30/25 at [facility]. He was given a script for 2 doses. He brought in his medication. His PCP is Jess Paris. He does have a psychiatrist. Adeline tells that there is a RN at [facility] that can give the med in the future. She also said that a VNA comes for another patient for daily medications. I'm not quite sure why the [facility] RN could not give this dose. gave the coordinator volunteer services my card with contact information. I will follow up tomorrow with the halfway to speak with the director. The director is not available at this time. Analyzer Sales Adeline agrees that coming to the ED is not the best plan. If [facility] cannot give the next dose, then VNA can be arranged for future doses.
[2025-06-28 20:38] VITALS: BP 147/82; PULSE 119; RESP 20; TEMP 36.6; O2SAT 98
--- NOTE | 2025-06-28 20:50 | PC.NURSE ---
per CC Gillian and charge, plus pharmacy approval, Im medication administrated. No sign of distress, pt isiah, notified boni Fernandez to discharge home, date and time of medication administration written on discharge instruction, and given to staff member, pt had a steady gait upon discharge, no sign of distress.
[2025-06-28 20:54] VITALS: BP 147/82; PULSE 119; RESP 20; TEMP 36.6; O2SAT 98
--- NOTE | 2025-06-29 15:33 | MHC.CM.ED ---
CM left a message for a return call at number provided on the record regarding monthly IM injections.
== END 2025-06-28 20:54 | disposition home or self-care (01) ==
PROVIDERS: Emergency Provider Student in an Organized Health Care Education/Training Program
DX: F20.9 Schizophrenia, unspecified (principal); E13.9 Other specified diabetes mellitus without complications; Z02.89 Encounter for other administrative examinations; Z79.899 Other long term (current) drug therapy
CPT/HCPCS: 96372; 99284

== ENCOUNTER 2025-06-29 14:52 | Outpatient (REF) | payer MEDICARE, MEDICAID, SELFPAY ==
[2025-06-29 17:57] LABS: MANUAL DIFF FLAG NO
[2025-06-29 18:25] LABS: Alanine Aminotransferase 13 U/L (0-40); Albumin Level 4.7 g/dL (3.5-5.0); Alkaline Phosphatase 128 U/L (39-117); Anion Gap 15 (12-20); Aspartate Amino Transferase 24 U/L (5-37); Blood Urea Nitrogen 17 mg/dL (9-16); Calcium 9.6 mg/dL (8.4-10.2); Carbon Dioxide 26 mmol/L (22-29); Chloride 105 mmol/L (96-108); Cholesterol 164 mg/dL (<200); Estimated Glomerular Filt Rate > 60; HDL Cholesterol 33 mg/dL (>40); Potassium 4.0 mmol/L (3.3-5.1); Sodium 142 mmol/L (135-145); Total Protein 7.2 g/dL (6.5-8.0); Triglycerides 111 mg/dL (<150)
[2025-06-29 18:36] LABS: Hematocrit 42.8 % (42.0-52.0); Hemoglobin 14.2 g/dl (14.0-18.0); Imm Gran Abs Auto 0.04 X10*3/uL (0.00-0.03); Imm Gran Pct Auto 0.4 % (0.0-0.4); Lymphocytes Absolute Auto 2.1 X10*3/uL (1.2-4.9); Mean Corpuscular HGB Conc 33.2 g/dl (31.0-36.0); Mean Corpuscular Hemoglobin 28.0 pg (27.0-33.0); Mean Corpuscular Volume 84.4 fL (80.0-98.0); NRBC Abs Auto 0.000 X10*3/uL (0.0-0.012); NRBC Pct Auto 0.0 /100WBC (0.0-0.2); Platelet Count 265 X10*3/uL (160-400); Red Blood Count 5.07 X10*6/uL (4.60-5.80); White Blood Count 10.2 X10*3/uL (4.8-10.8)
[2025-06-29 18:47] LABS: Folate 12.7 ng/mL (> or = 4.0); Vitamin B12 516 pg/mL (200-900)
[2025-07-01 04:06] LABS: HBS Num1 1.60 mIU/mL (0-7.99); HBsAGNum1 0.47 S/CO (0.00-0.99); HIV Num 1 0.09 S/CO (0.00-0.99); Hepatitis B Surface Antigen Negative (Negative); ~HepC Num1 0.11 S/CO (0.00-0.79); ~Hepatitis B Surface Antibody NONREACTIVE (Nonreactive); ~Hepatitis C Antibody Nonreactive (Nonreactive)
[2025-07-04 16:47] LABS: VITAMIN D (1,25 OH) D3 40 pg/mL; Vit D (1,25-Dihydroxy) Total 51 pg/mL (18-72); Vitamin D (1,25 OH) D2 11 pg/mL
== END 2025-06-29 14:53 | disposition home or self-care (01) ==
LOC: HO.HKASLDS 14:52
PROVIDERS: PCP Student in an Organized Health Care Education/Training Program; Visit Provider Student in an Organized Health Care Education/Training Program
DX: I10 Essential (primary) hypertension (principal); R13.10 Dysphagia, unspecified; E78.00 Pure hypercholesterolemia, unspecified; L21.9 Seborrheic dermatitis, unspecified; K59.00 Constipation, unspecified; L21.0 Seborrhea capitis; N39.44 Nocturnal enuresis; R29.818 Other symptoms and signs involving the nervous system; R09.89 Other specified symptoms and signs involving the circulatory and respiratory systems; Z79.899 Other long term (current) drug therapy
CPT/HCPCS: 36415; 80053; 80061; 82607; 82652; 82746; 83036; 84443; 85025; 86706; 86803; 87340; 87389; 96127; 99202

== ENCOUNTER 2025-06-29 14:52 | Outpatient (AMB) | payer MEDICARE, MEDICAID, SELFPAY ==
--- NOTE | 2025-06-29 14:54 | A.OFFPC_ITS ---
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 Drying Machine Operator Required: No Accompanied by: cad cam programmer Allergies haloperidol (From Haldol) Allergy (Intermediate, Verified 06/29/25 14:58) Agitated lithium Allergy (Intermediate, Verified 06/29/25 14:58) Agitated oxcarbazepine (From TRILEPTAL) Allergy (Unknown, Verified 06/29/25 14:58) RASH fluphenazine (From Prolixin) Allergy (Verified 06/29/25 14:58) akathisia Medication List - Last Reconciled 07/01/25 by Tolu Soares MD benztropine 0.5 mg PO BID desmopressin mg PO docusate sodium (Colace) 100 mg PO BID fluoxetine 20 mg PO DAILY lorazepam 0.5 mg PO TID metoprolol succinate ER 25 mg See Protocol PO DAILY paliperidone palmitate (Invega Sustenna) mg IM polyethylene glycol 3350 (Miralax) 17 grams PO BID [Pull-ups/diapers As directed] sennosides 17.2 mg PO BID tamsulosin mg PO Tobacco use date assessed: 06/29/25 Dental Screening Dental Screen Date: 06/29/25 Did you have a dental visit in the last 12 months?: No Did you have a dental problem in the last 6 months where you did not have access to dental care?: No Was dental information given to patient?: Patient has dentist HPI HPI Comments History of Present Illness Details History of Present Illness The patient is a 49 year old male presenting to establish care with a new primary care physician and for medication management. Psychiatric History and Medication Management: The patient has recently been discharged to a residential program in [place] and is establishing care. His psychiatric care is managed by a nurse practitioner, Xuan Capps, whom he will see on Wednesday. His psychiatric medications include an Invega injection, and he ran out of Ativan 0.5 mg, which he takes three times daily, today. A prior medication list included divalproex (Depakote) as a mood stabilizer and fluoxetine for depression, but divalproex has been discontinued. Dysphagia: The patient's caregiver has noticed that he frequently chokes on both solid foods and liquids, acting as if the food is stuck in his throat. He sometimes spits the food out expulsively. The patient reports feeling nervous when eating larger meals and feels safer with foods like grilled cheese sandwiches. Chronic Medical Conditions: The patient has a history of hypercholesterolemia, treated with atorvastatin. He experiences nocturnal enuresis, for which he takes desmopressin and requires briefs. He has diagnoses of hypertension and diabetes. He reports experiencing constipation. He also has extrapyramidal symptoms treated with Cogentin. Seborrheic Dermatitis: The patient's caregiver notes that he has a lot of dandruff on his face, which is especially noticeable when he wears dark clothing. Surgical History: - The patient denies any past surgeries. Medications: - Ativan (lorazepam) 0.5 mg three times a day for anxiety; patient ran out today. - Atorvastatin for high cholesterol. - Desmopressin for nocturnal enuresis. - Paliperidone (Invega) injection for ps ychiatric condition. - Benztropine (Cogentin) for extrapyrami trina symptoms. - Docusate (Colace) for constipation. - Tamsulosin (Flomax). - Metoprolol for hypertension. - Senna for constipation. - Divalproex (Depakote) for mood stabili zation (discontinued). Social History: - Housing: Lives in a [facility]. - Substance Use: Denies any history of s moking, alcohol use, or illicit drug use. Family History: Family history was not discussed. Diagnostic Results: No diagnostic results were reviewed during the visit. Past Medical History - Psychiatric history requiring medicati ons including Invega, Ativan, and previously Depakote and fluoxetine. - Hypercholesterolemia, treated with lennox rvastatin. - Nocturnal enuresis, treated with desmo pressin. - Diabetes, treated with metformin. - Hypertension, treated with metoprolol. - Extrapyramidal symptoms, treated with Cogentin. - Constipation, treated with Colace and Senna. Health Maintenance - Ordered comprehensive baseline blood w ork, including a CBC, CMP, electrolytes, calcium, magnesium, thyroid function, B12, folate, vitamin D, lipid panel, and HbA1c. - Ordered screening for HIV, hepatitis B , and hepatitis C. - Ordered a Cologuard test for colorecta l cancer screening. - Advised a follow-up appointment in two weeks to review test results. - Refills for other chronic medications will be addressed after reviewing lab results. [facility] Medical History (Updated 07/01/25 @ 20:43 by Tolu Soares MD) Urinary incontinence Constipation Hypertension Nocturnal enuresis Hypercholesterolemia Seborrhea of face Acute anxiety Schizoaffective disorder Diabetes 1.5, managed as type 2 Social History Household Members: Other Household Members Other:: roommate Housing: Apartment Housing Other:: [facility] supported apartment Do you presently have visiting nurse or other home services: Yes Alcohol intake: former Comment: utilizing a walker Patient Tobacco Use Status: Never used Tobacco Tobacco use type: Cigarette e-Cigarette/Vaping Use: Never Used Second Hand Smoke Exposure: No service: No Sexual orientation: Straight/Heterosexual Cognitive needs: No Hearing needs: No Vision needs: No Questionnaire PHQ-9 Over the last 2 weeks, how often have you been bothered by any of the following problems? 1. Little interest or pleasure in doing things: more than half the days 2. Feeling down, depressed, or hopeless: more than half the days 3. Trouble falling or staying asleep, or sleeping too much: more than half the days 4. Feeling tired or having little energy: more than half the days 5. Poor appetite or overeating: more than half the days 6. Feeling bad about yourself - or that you are a failure or have let yourself or your family down: more than half the days 7. Trouble concentrating on things, such as reading the newspaper or watching television: more than half the days 8. Moving or speaking so slowly that other people could have noticed. Or the opposite - being so fidgety or restless that you have been moving around a lot more than usual: more than half the days 9. Thoughts that you would be better off or of hurting yourself in some way: more than half the days Total score: 18 Depression Screening Interpretation: Positive Depression Screening Follow-up: In treatment Depression Screening Done: Yes 20820 - PHQ-9 Billing: Yes Source: Developed by Drs. Sonu Lemos, Emperatriz Holly, Edwar Lilly and colleagues, with an educational adina from [employer]. Thrive Questionnaire Date Thrive assessed: 06/29/25 I am a: Parent/Caregiver What is your living situation today?: I have a steady place to live Within the past 12 months, did the food you bought not last and you didn't have the money to get more?: Never true Within the past 12 months, did you worry whether your food would run out before you got money to buy more?: Never true Do you have trouble paying for medicines?: No Do you have trouble getting transportation to medical appointments?: No Do you have trouble paying your heating and electricity bill?: No Do you have trouble taking care of your child, family member or friend?: No Are you currently unemployed and looking for a job?: No Are you interested in more education?: No Please select the resources that you would like help with: None Currently or been in a relationship where the following occur: No concerns repo rted THRIVE Score: 0 AUDIT C Alcohol Use Questionnaire (AUDIT-C) 1. How often do you have a drink containing alcohol?: Never Total Score: 0 JUANCHO-7 AMB Questionnaire JUANCHO-7 Date JUANCHO - 7 assessed: 06/29/25 Feeling nervous, anxious, or on edge: 3 = Nearly every day Not being able to stop or control worryin = Nearly every day Worrying too much about different things: 3 = Nearly every day Trouble relaxin = Nearly every day Being so restless that it is hard to sit still: 3 = Nearly every day Becoming easily annoyed or irritable: 3 = Nearly every day Feeling afraid as if something awful might happen: 3 = Nearly every day Total JUANCHO-7 score (0-4 normal; 5-9 mild; 10-14 moderate; 15-21 severe): 21 Source: Developed by Drs. Sonu Lemos, Emperatriz Holly, Edwar Lilly and colleagues, with an educational adina from [employer]. JUANCHO-7 Assessment Billing JUANCHO-7 Assessment Tool: JUANCHO-7 Assessment 99515 Review of Systems Narrative Review of Systems - General: Reports feeling better recently. - HEENT: Reports a sensation of choking or food getting stuck in his throat. - Skin: Reports dandruff on his face. - GI: Reports constipation. - : Reports nocturnal enuresis and uses briefs. - Neurological: Has baseline shakiness and stiffness (extrapyramidal symptoms). - Psychiatric: Reports feeling nervous when eating. 10-point ROS reviewed and negative except as noted in HPI Physical exam (Primary Care) Vital Signs: Last Vital Signs Temp 98.2 F 06/29/25 15:02 Pulse 123 H 06/29/25 15:02 Resp 16 06/29/25 15:02 BP 119/69 06/29/25 15:02 Pulse Ox 98 06/29/25 15:02 Oxygen Delivery Method Room Air 06/29/25 15:02 BMI result Body Mass Index 23.1 Tobacco/Smoking Status: Tobacco use Status Tobacco use date assessed 06/29/25 06/29/25 15:05 Patient Tobacco Use Status Never used Tobacco 06/29/25 14:57 Tobacco use type Cigarette 06/29/25 14:57 e-Cigarette/Vaping Use Never Used 06/29/25 14:57 PHQ-9: PHQ-9 Score PHQ-9: Total score 18 06/30/25 17:55 Depression Screening Interpretation: Positive Depression Screening Follow-up: In treatment Thrive Assessment: Date of Thrive Assessment Date Thrive assessed 06/29/25 06/29/25 14:57 Currently or been in a relationship where the following occur: No concerns reported Narrative Physical Exam General: Well-appearing, in no acute distress. Vital signs: Within normal limits. HEENT: Normocephalic, atraumatic. PERRLA, EOMI. Conjunctiva clear, sclera anicteric. Oropharynx clear, mucous membranes moist. TMs intact bilaterally. Neck: Supple, no lymphadenopathy, no thyromegaly, no JVD or carotid bruits. Cardiovascular: RRR, normal S1/S2, no murmurs, rubs, or gallops. Peripheral pulses 2+ and symmetric. No edema. Respiratory: Lungs clear to auscultation bilaterally, no wheezes, rales, or rhonchi. Normal effort. Abdomen: Soft, non-tender, non-distended. Normoactive bowel sounds. No hepatosplenomegaly, no masses. MSK: Full range of motion, no joint swelling or deformity. Normal gait. Skin: Warm, dry, intact. No rashes, lesions, or pallor. Noted dandruff on face, ketoconazole shampoo recommended. Neuro: Alert and oriented x3. Cranial nerves II-XII intact. Strength 5/5 throughout. Sensation intact. Reflexes 2+ symmetric. Normal coordination and gait. Psych: Appropriate mood and affect. Normal judgment and insight. Noted anxiety and mood stabilization issues, lorazepam and Depakote prescribed for management. Coding Level of Care Code New Pt Level 4 (18689) Diagnoses Constipation K59.00 Seborrhea of face L21.9 Hypercholesterolemia E78.00 Nocturnal enuresis N39.44 Hypertension I10 Extrapyramidal symptom R29.818 Urinary incontinence R32 Additional Codes JUANCHO-7 Assessment Billing - JUANCHO-7 Assessment Tool: JUANCHO-7 Assessment 34812 ([id number]) PHQ-9 - 79989 - PHQ-9 Billing: Yes ([id number]) Assessment & Plan Assessment & Plan (1) Constipation: Code(s): K59.00 - Constipation, unspecified Category: Medical (2) Seborrhea of face: Code(s): L21.9 - Seborrheic dermatitis, unspecified Category: Medical (3) Hypercholesterolemia: Code(s): E78.00 - Pure hypercholesterolemia, unspecified Category: Medical (4) Nocturnal enuresis: Code(s): N39.44 - Nocturnal enuresis Category: Medical (5) Hypertension: Code(s): I10 - Essential (primary) hypertension Category: Medical (6) Extrapyramidal symptom: Code(s): R29.818 - Other symptoms and signs involving the nervous system (7) Urinary incontinence: Code(s): R32 - Unspecified urinary incontinence Category: Medical Plan Consent The patient was offered a Cologuard test for colon cancer screening as an alternative to a colonoscopy. The process was explained: a box with a collection kit will be mailed to his home, he will provide a stool specimen, place it back in the box, and mail it out. The patient verbally consented to this plan. Patient was informed and verbally consented to the use of an ambient scribe for clinic note documentation during this visit. Plan 1. Anxiety Disorder - Prescribed a bridge supply of lorazepam 0.5 mg, quantity 9, to cover the patient until he sees his psychiatrist on Wednesday. 2. Dysphagia - Ordered a swallow test to evaluate the cause of his choking. - Will consider a referral to gastroenterology based on the results. 3. Seborrheic Dermatitis - Prescribed ketoconazole shampoo to be used on his hair and face three times a week. - Provided 3 refills for the prescription. 4. Constipation - Prescribed MiraLAX to be taken twice daily (morning and night) until bowel movements resume, then reduce to once daily at night. 5. Urinary Incontinence - Provided a paper prescription for medium-sized adult briefs. Discussion Notes I met with the patient, a 49-year-old male, and his caregiver to establish primary care. We reviewed his complex medical and psychiatric history and his current medication list. Given that he ran out of his Ativan today and does not see his psychiatrist until Wednesday, I provided a bridge prescription for nine tablets of lorazepam. I explained that his other psychotropic medications, such as Cogentin, are managed by his psychiatrist as they are related to his antipsychotic use, and I will not be prescribing them. We addressed his new complaint of choking, and while I noted it might be related to his psychiatric issues, I ordered a swallow test for further evaluation. For his facial dandruff and constipation, I prescribed ketoconazole shampoo and MiraLAX, respectively. I also provided a prescription for adult briefs to manage his incontinence. For health maintenance, I ordered a comprehensive baseline blood panel. We discussed colon cancer screening, and I explained the process for the non- invasive Cologuard test, to which the patient agreed. I instructed him to follow up in two weeks to review all results, at which point we can assess the need for refilling his other chronic medications. Patient Instructions - technical support director a short-term supply (9 pills) of your lorazepam medication from the pharmacy to last until your appointment on Wednesday. - For constipation, take MiraLAX once in the morning and once at night until you start having bowel movements, then you can take it just once at night. - Use the prescribed ketoconazole shampoo on your hair and face three times a week (for example, Wednesday, Wednesday, and Wednesday) to help with dandruff. - A colon cancer screening kit called Cologuard will be mailed to you. Follow the instructions in the box to collect a stool sample and mail it back. - A prescription for medium-sized adult briefs has been provided. - Go to the lab to have a full panel of blood work done. - Schedule a follow-up appointment in two weeks to review your test results. Medical Decision Making The patient is a 49-year-old male with a complex medical and psychiatric history who presented to establish care. Cardona priorities for this visit were to address an acute medication need, evaluate new symptoms, and establish a baseline for ongoing management. The patient ran out of lorazepam today, and a bridge p rescription is medically necessary to prevent withdrawal and manage his anxiety until his psychiatry appointment on Wednesday. I deferred to his psychiatrist for management of other psychotropic medications, such as benztropine, as these are prescribed to manage side effects of antipsychotics which fall under the purview of psychiatry. The caregiver's report of dysphagia is a significant new concern. While this may be related to his underlying psychiatric conditions and anxiety around eating, an organic cause must be excluded; therefore, a swallow study is warranted for a comprehensive evaluation. The patient's dandruff and constipation were addressed with prescriptions for ketoconazole shampoo and MiraLAX, respectively. For health maintenance, baseline laboratory studies are crucial for this new patient with multiple chronic conditions, including diabetes, hypertension, and hyperlipidemia. At age 49, the patient is due for colorectal cancer screening, and Cologuard was chosen as a reasonable, non-invasive initial test. A follow-up in two weeks will allow for a thorough review of these diagnostic results and inform the long-term management plan, including refills of his chronic medical prescriptions. Total time spent caring for the patient today was 30 minutes. This includes time spent before the visit reviewing the chart, time spent documenting, and time spent reviewing laboratory results, diagnostic imaging, medications, performing a medically necessary evaluation, counseling on diagnoses, care coordination. Orders: Orders Complete Blood Count Auto Diff 06/29/25 Z13.9 - Encounter for screening, unspecified Comprehensive Met. Panel 06/29/25 Z13. - Encounter for screening, unspecified Microalbumin, Random (w Creat) 06/29/25 Z13.9 - Encounter for screening, unspecified TSH reflex Free T4 06/29/25 Z13.9 - Encounter for screening, unspecified UA CC w/rflx Micro + Cult 06/29/25 Z13.9 - Encounter for screening, unspecified Vitamin D 1,25 dihydroxy 06/29/25 Z13.9 - Encounter for screening, unspecified FL barium swallow Today R09.89 - Other specified symptoms and signs involving the circulatory and respiratory systems, R13.10 - Dysphagia, unspecified Hepatitis B Surface Antibody 06/29/25 Z13.9 - Encounter for screening, unspecified Hemoglobin A1c 06/29/25 Z13.9 - Encounter for screening, unspecified Hepatitis B Surface Antigen 06/29/25 Z13.9 - Encounter for screening, unspecified Hepatitis C Antibody 06/29/25 Z13. - Encounter for screening, unspecified HIV Ab/Ag 06/29/25 Z13. - Encounter for screening, unspecified Lipid Panel 06/29/25 Z13.9 - Encounter for screening, unspecified Vitamin B12 and Folate 06/29/25 Z13.9 - Encounter for screening, unspecified Referrals Cologuard Test Z12.11 - Encounter for screening for malignant neoplasm of colon, Z12.12 - Encounter for screening for malignant neoplasm of rectum Medications: New polyethylene glycol 3350 (Miralax) 17 grams PO BID 476 grams 0RF K59.00 - Constipation, unspecified lorazepam 0.5 mg PO TID 9 tabs 0RF [Pull-ups/diapers] As directed 1 ea 0RF
[2025-06-29 15:02] VITALS: BP 119/69; PULSE 123; RESP 16; TEMP 36.8; O2SAT 98; BMI 23.1
--- OUTSIDE RECORDS SUMMARY | 2025-06-29 16:15 | XMS_ITS | Encounter Summary ---
Author Organization [employer] Address [address] [facility] 7t [place] [address] Care Team Providers Care Labor Relations Analyst Name Role Phone Jess Paris MD Primary Care Provider [phone] Kiera Hassan PharmD Unavailable Ruth Silverio OD Unavailable [phone] Encounter Details Date Type Department Care Team (Late st Contact Info) Description 10/05/2022 Abstract [facility] MED[facility]INE [address] [place] [address] Jess Paris MD [address] [place], [place] [phone] Social History Tobacco Use Types Packs/Day Years [...] on filedocumented in this encounter Care Teams Labor Relations Analyst Relationship Specialty Start Date End Date Jess Paris MD [address] [place], [place] [phone] PCP - General Family Medicine 06/14/13 Kiera Hassan, AmandoD [address] [place] [address] Pharmacist Internal Medicine 08/03/22 Ruth Silverio OD [address] [place] [address] Optometry 11/16/24 French Martin 06/27/24 Malathi Abraham ONLINE FACILITATOR Psychiatry 11/16/24 documented as of this encounter
--- OUTSIDE RECORDS SUMMARY | 2025-06-29 16:15 | XMS_ITS | Encounter Summary ---
Author Organization [employer] Address [address] [facility] [address] [place] [address] Care Team Providers Care Chef De Froid Name Role Phone Jess Paris MD Primary Care Provider [phone] Kiera Hassan PharmD Unavailable Ruth Silverio OD Unavailable [phone] Encounter Details Date Type Department Care Team (Late st Contact Info) Description 03/24/2022 [facility] Information Management [address] [place], [place] [phone] Jess Paris MD [address] [place], [place] [phone] Social History Tobacco Use Types Packs/Day Years [...] on filedocumented in this encounter Care Teams Chef De Froid Relationship Specialty Start Date End Date Jess Paris MD [address] [place], [place] [phone] PCP - General Family Medicine 06/14/13 Kiera Hassan, PharmD [address] [place] [address] [phone] Pharmacist Internal Medicine 08/03/22 Rtuh Silverio OD [address] [place] [phone] Optometry 11/16/24 French Martin 06/27/24 Malathi Abraham APRN Psychiatry 11/16/24 documented as of this encounter
--- OUTSIDE RECORDS SUMMARY | 2025-06-29 16:15 | XMS_ITS | Encounter Summary ---
Author Organization [employer] Address [address] [facility] [address] [place] [address] Care Team Providers Care Senior Account Clerk Name Role Phone Jess Paris MD Primary Care Provider [phone] Kiera Hassan PharmD Unavailable [phone] Ruth Silverio OD Unavailable Encounter Details Date Type Department Care Team (Late st Contact Info) Description 09/21/2022 Orders Only [facility] MEDICINE [address] [place], [place] [phone] Jess Paris MD [address] [place], [place] [phone] Other specified diabetes mellitus with hyperglycemia, without [...] Primary documented in this encounter Care Teams Senior Account Clerk Relationship Specialty Start Date End Date Jess Paris MD [address] [place], [place] [phone] PCP - General Family Medicine 06/14/13 Kiera Hassan, AmandoD [address] [place], [place] [phone] Pharmacist Internal Medicine 08/03/22 Ruth Silverio OD [address] [place] [address] [phone] Optometry 11/16/24 French Martin 06/27/24 Malathi Abraham APRN Psychiatry 11/16/24 documented as of this encounter
--- OUTSIDE RECORDS SUMMARY | 2025-06-29 16:15 | XMS_ITS | Encounter Summary ---
Author Organization [employer] Address [address] [facility] [address] [place] [address] Care Team Providers Care Entertainment Agent Name Role Phone Jess Paris MD Primary Care Provider [phone]- [phone] Kiera Hassan PharmD Unavailable Ruth Silverio OD Unavailable [phone] Reason for Referral * Consultation (Routine) - Closed Specialty Diagnoses / Procedures Referred By Contac t Referred To Contact Urology Diagnoses Urinary incontinence, unspecified type Jess Paris MD [address] [place] [address] Phone: tel: fax: [facility] [address] [place], [place] Phone: tel: fax: Referral ID Status Reason Start Date Expiration Date V isits Requested Visits Authorized [id number] Closed Specialty Services Required 05/02/2024 05/02/2025 1 1 Encounter Details Date Type Department Care Team (Late st Contact Info) Description 05/02/2024 Orders Only [facility] [address] [place] [address] Jess Paris MD [address] [place], [place] [phone] Urinary incontinence, unspecified type (Primary Dx) Social [...] edge 1 05/03/2024 8:55 AM EDT Iona Bryatn LICSW Not being able to stop or [...] documented as of this encounter Care Teams Entertainment Agent Relationship Specialty Start Date End Date Jess Paris MD [address] [place] [address] PCP - General Family Medicine 06/14/13 Kiera Hassan, PharmD [address] [place] [address] Pharmacist Internal Medicine 08/03/22 Ruth Silverio OD [address] [place] [address] Optometry 11/16/24 French Martin 06/27/24 Malathi Abraham APRN Psychiatry 11/16/24 documented as of this encounter
--- OUTSIDE RECORDS SUMMARY | 2025-06-29 16:15 | XMS_ITS | Encounter Summary ---
Author Organization [employer] Address [address] [facility] [address] [place] [address] Care Team Providers Care Agricultural Mechanic Name Role Phone Jess Paris MD Primary Care Provider +- [phone] Kiera Hassan PharmD Unavailable [phone] Ruth Silverio OD Unavailable [phone] Encounter Details Date Type Department Care Team (Late st Contact Info) Description 09/17/2023 Telephone [facility] [address] [place], [place] [phone] Sujey Mancuso LPN Social History Tobacco Use [...] documented as of this encounter Care Teams Agricultural Mechanic Relationship Specialty Start Date End Date Jess Paris MD [address] [place] [address] PCP - General Family Medicine 06/14/13 Kiera Hassan, PharmD [address] [place] [address] Pharmacist Internal Medicine 08/03/22 Ruth Silverio OD [address] [place] [address] Optometry 11/16/24 Elara Caring 06/27/24 Malathi Abraham APRN Psychiatry 11/16/24 documented as of this encounter
--- OUTSIDE RECORDS SUMMARY | 2025-06-29 16:15 | XMS_ITS | Encounter Summary ---
Author Organization [employer] Address 75 [facility] 7[address] [place] [address] Care Team Providers Care Algorithm Design Engineer Name Role Phone Jess Paris MD Primary Care Provider +1- [phone] Kiera Hassan PharmD Unavailable [phone] Ruth Silverio OD Unavailable Reason for Visit * Reason Onset Date Comments FYI 05/02/2024 Encounter Details Date Type Department Care Team (Late st Contact Info) Description 05/02/2024 Telephone [facility] MEDICINE [address] [place], [place] [phone] Jess Paris MD [address] [place], [place] [phone] FY Social History Tobacco Use Types Packs/Day [...] at all 05/03/2024 8:55 AM DELFINT Iona Braynt LICSW Poor appetite or overeating Not at [...] r/s till August. Anyquestion contact phone # [phone]. documented in this encounter Plan of Treatment [...] documented as of this encounter Care Teams Algorithm Design Engineer Relationship Specialty Start Date End Date Jess Paris MD [address] [place] [address] PCP - General Family Medicine 06/14/13 Kiera Hassan, PharmD [address] [place] [address] Pharmacist Internal Medicine 08/03/22 Ruth Silverio OD [address] [place] [address] Optometry 11/16/24 French Martin 06/27/24 Malathi Abraham APRN Psychiatry 11/16/24 documented as of this encounter
--- OUTSIDE RECORDS SUMMARY | 2025-06-29 16:15 | XMS_ITS | Encounter Summary ---
Author Organization [employer] Address 75 [facility] 7t [place] [address] Care Team Providers Care Piling Setter Name Role Phone Jess Paris MD Primary Care Provider +1- [phone] Kiera Hassan PharmD Unavailable [phone] Ruth Silverio OD Unavailable Encounter Details Date Type Department Care Team (Late st Contact Info) Description 2022 Abstract [facility] MEDICINE [address] [place] [address] Jess Paris MD [address] [place], [place] [phone] Social History Tobacco Use Types Packs/Day Years [...] on filedocumented in this encounter Care Teams Piling Setter Relationship Specialty Start Date End Date Jess Paris MD [address] [place], [place] [phone] PCP - General Family Medicine 06/14/13 Kiera Hassan, AmandoD [address] [place] [address] Pharmacist Internal Medicine 08/03/22 Ruth Silverio OD [address] [place] [address] Optometry 11/16/24 French Martin 06/27/24 Malathi Abraham DISPATCH LEAD Psychiatry 11/16/24 documented as of this encounter
--- OUTSIDE RECORDS SUMMARY | 2025-06-29 16:15 | XMS_ITS | Encounter Summary ---
Author Organization [employer] Address 75 [facility] 7t [place] [address] Care Team Providers Care Sanding Machine Tender Automatic Name Role Phone Jess Paris MD Primary Care Provider +1- [phone] Kiera Hassan PharmD Unavailable [phone] Ruth Silverio OD Unavailable [phone] Encounter Details Date Type Department Care Team (Late st Contact Info) Description 11/16/2024 Orders Only [facility] MEDICINE [address] [place], [place] [phone] Jess Paris MD [address] [place], [place] [phone] Social History Tobacco Use Types Packs/Day Years [...] documented as of this encounter Care Teams Sanding Machine Tender Automatic Relationship Specialty Start Date End Date Jess Paris MD [address] [place] [address] PCP - General Family Medicine 06/14/13 Kiera Hassan, PharmD [address] [place] [address] Pharmacist Internal Medicine 08/03/22 Ruth Silverio OD [address] [place] [address] Optometry 11/16/24 Elara Caring 06/27/24 Malathi Abraham CHILD CARE COOK Psychiatry 11/16/24 documented as of this encounter
--- OUTSIDE RECORDS SUMMARY | 2025-06-29 16:16 | XMS_ITS | Clinical Summary ---
Author Organization [employer] Address 75 [facility] 7t [place] [address] Care Team Providers Care Cart Attendant Name Role Phone Jess Paris MD Primary Care Provider +1- [phone] Kiera Hassan PharmD Unavailable Ruth Silverio OD Unavailable [phone] Allergies Active Allergy Reactions Criticality Noted Date Comments Fluphenazine 03/09/2012 Other reaction(s): akathesia , akathesia Haloperidol 03/09/2012 Other reaction(s): akathesia [place] 12/29/2017 Oxcarbazepine 12/15/2018 Medications * This document [...] hyperglycemia, without long-term current use of insulin ([facility]) USE TO CHECK BLOOD SUGAR [...] 09/18 Overview (01/19/2024): -psychiatry Haile Gutierrez NP [phone] -therapistTeena [phone] and [facility]. -Chitra is worker on [facility] outreach team [phone] -day program at [facility] prior to the pandemic, currently ina -visiting RN : Eleuterio [phone] with [facility] since 02/2018:immigration case worker:Isabel Harry [phone], , Assessment & Plan (01/19/2024 12:13 PM EDT): -psychiatry Haile Gutierrez NP [phone] -therapist, Teena [phone] and [facility]. -Chitra is worker on [facility] outreach team [phone] -day program at [facility] prior to the pandemic, currently ina -visiting RN : Eleuterio [phone] with [facility] Clancy [facility] since 02/2018:immigration case worker:Isabel Harry [phone], , Other specified health status 05/21/2023 Overview (06/14/2024): -next comprehensive annual evaluation due after 05/24/2024 -eye care facilitated by [facility] -dental home is in [place], last seen on 11/2022 -health care proxy Assessment & Plan (05/21/2023 11:26 AM EDT): -next physical exam due after 06/15/2023 -eye care facilitated by [facility] -dental home is in [place], last seen on 11/2022 -Referral to GI for colon cancer screening 05/21/2023 Left foot pain 05/21/2023 Overview (05/21/2023): -Referral done to PT 05/21/2023 -High risk for falls due to medication side effects. We will see if he can get PT at home, [facility] Assessment & Plan (05/21/2023 12:00 PM EDT): -Referral done to PT 05/21/2023 -High risk for falls due to medication side effect. We will see if he can get PT at home, will call his [facility] for PT assistance Bilateral impacted cerumen 05/21/2023 [...] recommended he use selenium sulfide shampoo and Brawley- Smoothe scalp oil, as well as Ketoconazole [...] recommended he use selenium sulfide shampoo and Brawley- Smoothe scalp oil, as well as Ketoconazole [...] colon cancer screening 05/21/2023, number given to [facility] to contact, new referral placed 01/19/24 Assessment & Plan (01/19/2024 12:14 PM EDT): referral GI colon cancer screening 05/21/2023, number given to [facility] to contact, new referral placed 01/19/24 Assessment [...] BID -glipizide discontinued on 04/16/22 Chronic schizophrenia ([facility]) 08/23/1959 Overview (09/27/2024): Pt's hospitalizations include 06/2020 to 09/2020 and 09/23/2023. prior to that is was 11/2014-12/2014 treated with changes in medication and ECT. Stable with psychiatry Chris Arvizu, NGUYỄN [phone], therapist, and [facility]. We had a three way call with his immigration case worker Chitra ([phone]) who will reach out to precriber and his nurse Stephani ([phone]) left message to check if he needs refills on antything and to request if needed. He is in day program at [facility] prior to the pandemic and has [facility] in the home. -Admitted 09/23/23 for [...] anxiety, decrease daytime sedation. -Admitted 03/20/24 to [facility] -Admitted 07/11/24 to [facility] for section 12/self injurious behavior -CT08/09/24 CT/CT head/brain wo IV con IMPRESSION: No evidence of acute intracranial hemorrhage or edematous territorial infarction. Mild underlying microangiopathy and generalized cerebral volume loss. Recent Hospitalizations include [facility] (06/13/24-06/26/24), [facility] (06/29/24 - 08/21/24), [facility] (08/30/24 - 09/05/24), [facility] (09/05/24 - 09/06/24), and [facility] (09/06/24 to - 09/07/24). Appears to have [...] ECT. Stable with psychiatry Chris Arvizu NP [phone], therapist, and [facility]. We had a three way call with his immigration case worker Chitra ([phone]) who will reach out to precriber and his nurse Stephani ([phone]) left message to check if he needs refills on antything and to request if needed. He is in day program at [facility] prior to the pandemic and has [facility] in the home. Assessment & Plan (10/30/2022 9:05 AM EST): Pt's last hospitalization was 06/2020 to 09/2020, prior to that is was 11/2014- 12/2014 treated with changes in medication and ECT. Stable with psychiatry Chris Arvizu, NGUYỄN [phone], therapist, and [facility]. We had a three way call with his immigration case worker Chitra ([phone]) who will reach out to precriber and his nurse Stephani ([phone]) left message to check if he needs refills on antything and to request if needed. He is in day program at [facility] prior to the pandemic and has [facility] in the home. Severe obesity (CMS/HCC) [...] hyperglycemia, without long-term current use of insulin ([facility]) HEPATITIS C AB W/REFL TO [...] (ABNORMAL) POCT A1C (01/19/2024 2:44 PM EDT) [facility] Hemoglobin A1C 6.1(A) 4.0 - 6.0 % QC Media Lot # [id number] Lot# Expiration Date Blood 01/19/2024 2:44 PM EDT Jess Paris MD POINT OF CARE TEST ENTER/E DIT ORDERABLES Final Result * Hepatitis C Antibody with Reflex to HCV, RNA, Quantitative, Real-Time PCR (01/19/2024 12:58 PM EDT) [facility] Hepatitis C Antibody Nonreactive Nonreactive [facility] Comment:Antibodies to HCV no t detected; does not exclude early acuteHCV infection. Blood Venous blood specimen / Unknown 01/19/2024 12:58 PM EDT 01/19/2024 4:44 PM EDT Jess Paris MD LAB BLOOD ORDERABLES Final Result [facility] [address] [place] [phone] * HIV-1/2 Antigen and Antibodies, Fourth Generation, with Reflexes (01/19/2024 12:58 PM EDT) [facility] HIV AB/AG Nonreactive Nonreactive [facility] Comment:HIV-1 p24 Ag and/or HIV-1/HIV-2 Ab not detected.A test result that is nonreactive does not exclude thepossibility of exposure to or infection with HIV-1 and/orHIV-2. Nonreactive results in this assay for individualswith prior exposure to HIV-1 and/or HIV-2 may be due toantigen and antibody levels that are below the limit ofdetection of this assay.The [employer] HIV Ag/Ab Combo assay result andsupplemental assay results should be interpreted inconjunction with the patient's clinical presentation,history and other laboratory results. If the results areinconsistent with clinical evidence, additional testing issuggested to confirm the result. Blood Venous blood specimen / Unknown 01/19/2024 12:58 PM EDT 01/19/2024 4:44 PM EDT Jess Paris MD LAB BLOOD ORDERABLES Final Result Performing Organization Address [facility] Co de Phone Number [facility] [address] [place] [phone] * Lipid Panel, Standard (12/02/2022 11:02 AM EDT) Triglycerides 297 mg/dL [facility] Comment:Desirable Triglyceri de: less than 150 mg/dLBorderline High Triglyceride 150-199 mg/dLHigh Triglyceride: 200-499 mg/dLVery High Triglyceride: greater than or equal to 5OO mg/dL Cholesterol 182 mg/dL [facility] Comment:Desirable Cholestero l: less than 200 mg/dLBorderline High Cholesterol: 200-239 mg/dLHigh Cholesterol: greater than 239 mg/dL LDL Cholesterol Calculated 97 mg/dl [facility] Comment:Desirable LDL: less than 100 mg/dLNear Optimal/Above Optimal LDL: 110- 129 mg/dLBorderline High LDL: 130-159 mg/dLHigh LDL: 160-189 mg/dLVery High LDL: greater than or equal to 190 mg/dL HDL Cholesterol 26 mg/dL [facility] Comment:Desirable HDL: great er than 40 mg/dL Note: This HDL assay may give artificially low results in patients with liver disease. 12/02/2022 11:0 2 AM EDT 12/02/2022 11:02 AM EDT [facility] External Provider LAB BLO OD ORDERABLES Final Result Performing Organization Address [facility] Co de Phone Number [facility] [address] [place] [phone] * MICROALBUMIN/CREATININE RATIO, RANDOM URINE (07/17/2022 [...] Recently Relevant to Health Maintenance Insurance [facility]IC[facility] Care Teams Cart Attendant Relationship Specialty Start Date End Date Cimarron, MD Jess [address] [place] [address] PCP - General Family Medicine 06/14/13 Kiera Hassan, PharmD [address] [place] [address] Pharmacist Internal Medicine 08/03/22 Ruth Silverio OD [address] [place] [phone] Optometry 11/16/24 French Caring 06/27/24 Malathi Abraham APRN Psychiatry 11/16/24
== END 2025-06-29 15:45 | disposition home or self-care (01) ==
LOC: HO.HMCFMS 14:53
PROVIDERS: Visit Provider Student in an Organized Health Care Education/Training Program
DX: K59.00 Constipation, unspecified (principal); L21.9 Seborrheic dermatitis, unspecified; E78.00 Pure hypercholesterolemia, unspecified; N39.44 Nocturnal enuresis; I10 Essential (primary) hypertension; R29.818 Other symptoms and signs involving the nervous system; R32 Unspecified urinary incontinence

== ENCOUNTER 2025-07-05 11:03 | Outpatient (AMB) | payer MEDICARE, MEDICAID, SELFPAY ==
[2025-07-05 11:11] VITALS: BP 115/66; PULSE 103; TEMP 36.4; O2SAT 99; BMI 22.3
--- NOTE | 2025-07-05 11:11 | MHC.PC.OV ---
Vital Signs 07/05/25 11:11 Height 5 ft 9 in Weight 151 lb 2 oz BMI 22.3 BP 115/66 Blood Pressure Location Lt brachial Position Sitting Pulse 103 H Pulse Source Pulse Oximeter Temp 97.5 F Temp Source Oral Pulse Oximetry (%) 99 Oxygen Delivery Method Room Air Intake Visit Reasons: AWV Accompanied by: Guardian Allergies haloperidol (From Haldol) Allergy (Intermediate, Verified 07/05/25 11:11) Agitated lithium Allergy (Intermediate, Verified 07/05/25 11:11) Agitated oxcarbazepine (From TRILEPTAL) Allergy (Unknown, Verified 07/05/25 11:11) RASH fluphenazine (From Prolixin) Allergy (Verified 07/05/25 11:11) akathisia Tobacco use date assessed: 07/05/25 Dental Screening Dental Screen Date: 07/05/25 Did you have a dental visit in the last 12 months?: No PFSH Medical History Urinary incontinence Constipation Hypertension Nocturnal enuresis Hypercholesterolemia Seborrhea of face Acute anxiety Schizoaffective disorder Diabetes 1.5, managed as type 2 Social History Household Members: Other Household Members Other:: roommate Housing: Apartment Housing Other:: [facility] supported apartment Do you presently have visiting nurse or other home services: Yes Alcohol intake: former Comment: utilizing a walker Patient Tobacco Use Status: Never used Tobacco Tobacco use type: Cigarette e-Cigarette/Vaping Use: Never Used Second Hand Smoke Exposure: No service: No Sexual orientation: Straight/Heterosexual Cognitive needs: No Hearing needs: No Vision needs: No Questionnaire PHQ-9 Over the last 2 weeks, how often have you been bothered by any of the following problems? 1. Little interest or pleasure in doing things: more than half the days 2. Feeling down, depressed, or hopeless: more than half the days 3. Trouble falling or staying asleep, or sleeping too much: more than half the days 4. Feeling tired or having little energy: more than half the days 5. Poor appetite or overeating: more than half the days 6. Feeling bad about yourself - or that you are a failure or have let yourself or your family down: more than half the days 7. Trouble concentrating on things, such as reading the newspaper or watching television: more than half the days 8. Moving or speaking so slowly that other people could have noticed. Or the opposite - being so fidgety or restless that you have been moving around a lot more than usual: more than half the days 9. Thoughts that you would be better off or of hurting yourself in some way: more than half the days Total score: 18 Depression Screening Interpretation: Positive Depression Screening Follow-up: In treatment Depression Screening Done: Yes 53259 - PHQ-9 Billing: Yes Source: Developed by Drs. Sonu Lemos, Emperatriz Holly, Edwar Lilly and colleagues, with an educational adina from [employer]. Thrive Questionnaire Date Thrive assessed: 07/05/25 I am a: Parent/Caregiver What is your living situation today?: I have a steady place to live Within the past 12 months, did the food you bought not last and you didn't have the money to get more?: Never true Within the past 12 months, did you worry whether your food would run out before you got money to buy more?: Never true Do you have trouble paying for medicines?: No Do you have trouble getting transportation to medical appointments?: No Do you have trouble paying your heating and electricity bill?: No Do you have trouble taking care of your child, family member or friend?: No Are you currently unemployed and looking for a job?: No Are you interested in more education?: No Please select the resources that you would like help with: None Currently or been in a relationship where the following occur: No concerns reported THRIVE Score: 0 AUDIT C Alcohol Use Questionnaire (AUDIT-C) 1. How often do you have a drink containing alcohol?: Never Total Score: 0 JUANCHO-7 AMB Questionnaire JUANCHO-7 Date JUANCHO - 7 assessed: 07/05/25 Feeling nervous, anxious, or on edge: 3 = Nearly every day Not being able to stop or control worryin = Nearly every day Worrying too much about different things: 3 = Nearly every day Trouble relaxin = Nearly every day Being so restless that it is hard to sit still: 3 = Nearly every day Becoming easily annoyed or irritable: 3 = Nearly every day Feeling afraid as if something awful might happen: 3 = Nearly every day Total JUANCHO-7 score (0-4 normal; 5-9 mild; 10-14 moderate; 15-21 severe): 21 Source: Developed by Drs. Sonu Lemos, Emperatriz Holly, Edwar Lilly and colleagues, with an educational adina from [employer]. JUANCHO-7 Assessment Billing JUANCHO-7 Assessment Tool: JUANCHO-7 Assessment 59859 Physical exam (Primary Care) Vital Signs: Last Vital Signs Temp 97.5 F 07/05/25 11:11 Pulse 103 H 07/05/25 11:11 BP 115/66 07/05/25 11:11 Pulse Ox 99 07/05/25 11:11 Oxygen Delivery Method Room Air 07/05/25 11:11 BMI result Body Mass Index 22.3 Tobacco/Smoking Status: Tobacco use Status Tobacco use date assessed 07/05/25 07/05/25 11:12 Patient Tobacco Use Status Never used Tobacco 07/05/25 11:12 Tobacco use type Cigarette 07/05/25 11:12 e-Cigarette/Vaping Use Never Used 07/05/25 11:12 PHQ-9: PHQ-9 Score PHQ-9: Total score 18 07/05/25 11:13 Depression Screening Interpretation: Positive Depression Screening Follow-up: In treatment Thrive Assessment: Date of Thrive Assessment Date Thrive assessed 07/05/25 07/05/25 11:12 Currently or been in a relationship where the following occur: No concerns reported Coding Additional Codes JUANCHO-7 Assessment Billing - JUANCHO-7 Assessment Tool: JUANCHO-7 Assessment 13818 ([id number]) PHQ-9 - 63910 - PHQ-9 Billing: Yes ([id number]) Assessment & Plan Assessment & Plan Orders: Orders Quantiferon TB Gold Plus 1 Today Z13.9 - Encounter for screening, unspecified
[2025-07-05 11:28] VITALS: BMI 22.3
--- NOTE | 2025-07-05 11:28 | AM.OFFVISMDC ---
Intake Vital Signs 07/05/25 11:11 07/05/25 11:28 Height 5 ft 9 in Weight 151 lb 2 oz BMI 22.3 22.3 BP 115/66 Blood Pressure Location Lt brachial Position Sitting Pulse 103 H Pulse Source Pulse Oximeter Temp 97.5 F Temp Source Oral Pulse Oximetry (%) 99 Oxygen Delivery Method Room Air Intake Visit Reasons: AWV Allergies haloperidol (From Haldol) Allergy (Intermediate, Verified 07/05/25 11:11) Agitated lithium Allergy (Intermediate, Verified 07/05/25 11:11) Agitated oxcarbazepine (From TRILEPTAL) Allergy (Unknown, Verified 07/05/25 11:11) RASH fluphenazine (From Prolixin) Allergy (Verified 07/05/25 11:11) akathisia Medication List - Last Reconciled 07/05/25 by Tolu Soares MD benztropine 0.5 mg PO BID desmopressin 0.4 mg (2 x 0.2 mg) PO BEDTIME docusate sodium 100 mg PO BID fluoxetine 20 mg PO DAILY lorazepam 0.5 mg PO TID metoprolol succinate ER 25 mg See Protocol PO DAILY paliperidone palmitate (Invega Sustenna) mg IM polyethylene glycol 3350 (Miralax) 17 grams PO BID [Pull-ups/diapers As directed] sennosides (senna) 17.2 mg (2 x 8.6 mg) PO BID HPI HPI Comments History of Present Illness Details History of Present Illness The patient is a 49-year-old male presenting for an annual wellness visit and review of lab results. Type 2 diabetes mellitus: This is a new diagnosis based on recent lab results showing a random glucose level above 150 mg/dL and a hemoglobin A1c of 6.7%. Hyperlipidemia: The patient's LDL cholesterol was noted to be slightly elevated on a non-fasting lipid panel. Elevated alkaline phosphatase: Recent labs revealed a slightly elevated alkaline phosphatase, though the rest of the liver function tests were normal. The patient has no associated symptoms such as right upper quadrant pain or jaundice. Nocturnal enuresis: The patient has a history of nocturnal enuresis, for which he takes desmopressin. Urinary Hesitancy: The patient's caregiver reports episodes of urinary urgency where the patient rushes to the bathroom, but the feeling subsides without urination. There is also a question of urinary hesitancy or weak stream, for which he was previously prescribed tamsulosin. Dysphagia: The patient has issues with swallowing, and an order for a diagnostic test has been placed. Medications: - Senna - MiraLAX - Invega - Metoprolol - Lorazepam - Fluoxetine - Docusate - Desmopressin for enuresis - Benztropine Diagnostic Results: - Labs - CBC: WBC, RBC, hemoglobin, and platelets are normal. - Comprehensive Metabolic Panel: Sodium, potassium, and kidney function are good. - Random Glucose: High at >150 mg/dL. - Hemoglobin A1c: 6.7%. - Liver Function Tests: Normal, with a slightly elevated alkaline phosphatase. - Lipid Panel (non-fasting): Triglycerides are good, LDL is slightly elevated. - Vitamin B12, Vitamin D, and Folate: Normal. - Thyroid studies: Normal. - Infectious Disease Screen: Hepatitis B, hepatitis C, and HIV are negative. Past Medical History - Nocturnal enuresis - Urinary urgency and hesitancy, previously treated with tamsulosin - Dysphagia - Constipation Health Maintenance - The patient presented for an annual wellness visit. - Lab screening including CBC, CMP, HbA1c, lipids, vitamins, thyroid function, and infectious disease panel was completed. - All infectious disease screening (Hepatitis B, Hepatitis C, HIV) was negative. [facility] Medical History (Updated 07/05/25 @ 15:32 by Tolu Soares MD) Elevated alkaline phosphatase level Hyperlipidemia Urinary incontinence Constipation Hypertension Nocturnal enuresis Hypercholesterolemia Seborrhea of face Acute anxiety Schizoaffective disorder Diabetes 1.5, managed as type 2 Social History Household Members: Other Household Members Other:: roommate Housing: Apartment Housing Other:: [facility] supported apartment Do you presently have visiting nurse or other home services: Yes Alcohol intake: former Comment: utilizing a walker Patient Tobacco Use Status: Never used Tobacco Tobacco use type: Cigarette e-Cigarette/Vaping Use: Never Used Second Hand Smoke Exposure: No service: No Sexual orientation: Straight/Heterosexual Cognitive needs: No Hearing needs: No Vision needs: No Questionnaire Medicare Wellness Checkup What gender do you identify with?: male During the past 4 weeks, how much have you been bothered by emotional problems such as feeling anxious, depressed, irritable, sad or downhearted, and blue?: extremely During the past 4 weeks, has your physical & emotional health limited your social activities with family, friends, neighbors, or groups?: moderately During the past 4 weeks, how much bodily pain have you generally had?: no pain During the past 4 weeks, was someone available to help you if you needed & wanted help?: yes, as much as I wanted During the past 4 weeks, what was the hardest physical activity you could do for at least 2 minutes?: light Can you get to places out of walking distance without help? (For eg., can you travel alone on buses, taxis or drive your car?): No Can you go shopping for groceries or clothes without someone's help?: No Can you prepare your own meals?: No Can you do your housework without help?: No Because of any health problems, do you need the help of another person with your personal care needs such as eating, bathing, dressing or getting around the house?: Yes Can you handle your own money without help?: No During the past 4 weeks, how would you rate your health in general?: good During the past 4 weeks how have things been going for you?: pretty well Are you having difficulties driving your car?: not applicable, I don't use a car Do you always fasten your seat belt when you are in a car?: yes, usually During past 4 weeks, have you been bothered by the following: never: Sexual problems?, Trouble eating well? and Teeth or denture problems?, seldom: Problems using the telephone? and sometimes: Falling or dizzy when standing up and Tiredness or fatigue? Have you fallen 2 or more times in the past year?: No Are you afraid of falling?: Yes Are you a smoker?: no During the past 4 weeks, how many drinks of wine, beer, or other alcoholic beverages did you have?: no alcohol at all Do you exercise for about 20 minutes 3 or more times a week?: no, I usually do not exercise this much Have you been given information to help with the following?: yes: Hazards in your house that might hurt you? and yes: Keeping track of your medications? How often do you have trouble taking medicines the way you have been told to take them?: I always take medicine as prescribed What is your race?: White Review of Systems Narrative Review of Systems - Gastrointestinal: Denies right upper quadrant pain. - Reports dysphagia. - Genitourinary: Reports bed-wetting (enuresis). - Reports urinary urgency and hesitancy. - Skin: Denies jaundice. 10-point ROS reviewed and negative except as noted in HPI Physical Exam Exam Exam: Physical Exam General: Well-appearing, in no acute distress. Vital signs: Within normal limits. HEENT: Normocephalic, atraumatic. PERRLA, EOMI. Conjunctiva clear, sclera anicteric. Oropharynx clear, mucous membranes moist. TMs intact bilaterally. Neck: Supple, no lymphadenopathy, no thyromegaly, no JVD or carotid bruits. Cardiovascular: RRR, normal S1/S2, no murmurs, rubs, or gallops. Peripheral pulses 2+ and symmetric. No edema. Respiratory: Lungs clear to auscultation bilaterally, no wheezes, rales, or rhonchi. Normal effort. Abdomen: Soft, non-tender, non-distended. Normoactive bowel sounds. No hepatosplenomegaly, no masses. MSK: Full range of motion, no joint swelling or deformity. Normal gait. Skin: Warm, dry, intact. No rashes, lesions, or pallor. Neuro: Alert and oriented x3. Cranial nerves II-XII intact. Strength 5/5 throughout. Sensation intact. Reflexes 2+ symmetric. Normal coordination and gait. Psych: Appropriate mood and affect. Normal judgment and insight. Vital Signs: Last Vital Signs Temp 97.5 F 07/05/25 11:11 Pulse 103 H 07/05/25 11:11 BP 115/66 07/05/25 11:11 Pulse Ox 99 07/05/25 11:11 Oxygen Delivery Method Room Air 07/05/25 11:11 BMI result Body Mass Index 22.3 Office Procedures Flu Questionnaire Does the patient have a severe egg allergy?: No Does the patient have severe life threatening allergies?: No Does the patient have a fever or illness today?: No Has the patient ever had Guillain-Reed Syndrome?: No Has the patient ever had any past reaction to a flu shot?: No Immunizations Fluarix [id number] (PF) 45 mcg (15 mcg x 3)/0.5 mL IM syringe Performing Provider: Tolu Soares MD Performing Location: [facility] Administered by: Delia Ray CMA on 07/05/25 11:39 Dose Route Admin Location Dispensed Lot Number Expiration Date NDC Professor Of Management 0.5 mL IM Left Deltoid 0.5 mL [id number] 02/19/26 [id number] [employer] VIS Given Date VIS Provided VIS Publication Date 07/05/25 Single Vaccine 24 Eligibility Eligibility Date Funding Source Not VFC Eligible 07/05/25 Private Administration Comments: Patient requested Influenza vaccine and TDAP vaccine to be given in same arm Boostrix Tdap 2.5 Lf unit-8 mcg-5 Lf/0.5 mL intramuscular syringe Performing Provider: Tolu Soares MD Performing Location: [facility] Administered by: Delia Ray CMA on 07/05/25 11:39 Dose Route Admin Location Dispensed Lot Number Expiration Date NDC Professor Of Management 0.5 mL IM Left Deltoid 0.5 mL [id number] 06/15/27 [id number] [employer] Total Dispensed Waste 0.5 mL 0 % VIS Given Date VIS Provided VIS Publication Date 07/05/25 Single Vaccine 21 Eligibility Eligibility Date Funding Source Not VF Eligible 07/05/25 Private Administration Comments: Patient requested Influenza vaccine and TDAP vaccine to be given in same arm Assessment & Plan Assessment & Plan (1) Hyperlipidemia: Code(s): E78.5 - Hyperlipidemia, unspecified (2) Elevated alkaline phosphatase level: Code(s): R74.8 - Abnormal levels of other serum enzymes (3) Nocturnal enuresis: Code(s): N39.44 - Nocturnal enuresis (4) Seborrhea of face: Code(s): L21.9 - Seborrheic dermatitis, unspecified Plan Consent Patient was informed and verbally consented to the use of an ambient scribe for clinic note documentation during this visit. Plan 1. Type 2 Diabetes Mellitus - Start metformin 1000 mg orally twice daily. - Patient counseled that GI upset, such as diarrhea, is a common side effect that may take about two weeks to resolve. - If GI side effects persist beyond two weeks, the patient should return for re-evaluation and consideration of alternative medications. - Follow up in 3 months to repeat labs, including a hemoglobin A1c. 2. Hyperlipidemia - Due to the new diagnosis of type 2 diabetes, a statin is indicated for cardiovascular risk reduction. - Start rosuvastatin 20 mg orally at night. 3. Elevated Alkaline Phosphatase - The elevation is mild and the patient is asymptomatic; will monitor with watchful waiting. - Repeat liver function tests in 3 months. - If the level remains elevated on repeat testing, will proceed with further investigation. 4. Nocturnal Enuresis - Refill and continue desmopressin as prescribed. 5. Urinary Hesitancy - Tamsulosin will remain discontinued at this time to re-evaluate its necessity. - Patient to follow up in two weeks to discuss urinary symptoms and determine if tamsulosin needs to be restarted. - Caregiver to monitor for symptoms like urinary straining or a weak stream. 6. Dysphagia - An order is in place for a swallowing test; the facility will contact the patient for scheduling. Discussion Notes I reviewed the patient's recent lab results with his caregiver, which are notable for a new diagnosis of type 2 diabetes, with a hemoglobin A1c of 6.7%. I discussed the plan to initiate metformin 1000 mg twice daily and counseled on potential GI side effects, noting they typically resolve within two weeks. I also explained that because he is now diabetic, I am starting rosuvastatin 20 mg for cardiovascular protection. We discussed the mildly elevated alkaline phosphatase, and I explained that since he is asymptomatic, the plan is to monitor this with repeat labs in three months. We discussed his urinary symptoms and the decision to hold tamsulosin for now, with a plan to re-evaluate in two weeks. His desmopressin for enuresis will be refilled. I informed the caregiver that the follow-up for results review next week is canceled and that he should follow up in two weeks to check on medication tolerance and urinary symptoms, with a subsequent follow-up in three months to recheck labs. Patient Instructions - Your lab results show that you have a new diagnosis of type 2 diabetes. - Start taking Metformin 1000 mg, one tablet in the morning and one tablet at night. - Metformin might cause an upset stomach or diarrhea for the first two weeks. - If these symptoms continue after two weeks, call the office. - Start taking Rosuvastatin 20 mg, one tablet at nighttime, to help protect your heart. - Continue taking your desmopressin for bed-wetting; a refill has been sent. - An order has been placed for a swallowing test. The center will call you to schedule an appointment. - You do not need to come to your appointment next week; it can be canceled. - Please schedule a follow-up appointment in two weeks to check on how you are tolerating the new medications and to discuss your urination problems. - You will need to return in 3 months for follow-up and repeat lab work. Medical Decision Making The patient is a 49-year-old male who presented for an annual wellness visit and lab review. Lab results revealed a new diagnosis of type 2 diabetes mellitus, with a hemoglobin A1c of 6.7%. Treatment was initiated with metformin 1000 mg twice daily to achieve glycemic control. Given the new diabetes diagnosis, cardiovascular risk reduction is a priority. Although the lipid panel was non-fasting, a statin is indicated, and I have started rosuvastatin 20 mg daily. The patient's labs also showed a mildly elevated alkaline phosphatase. In the absence of symptoms like right upper quadrant pain or jaundice, this finding is not immediately concerning. The plan is to monitor this with repeat LFTs in three months. The patient's caregiver described urinary symptoms suggestive of urgency and hesitancy. Tamsulosin, which was previously prescribed likely for BPH, has been stopped to reassess its necessity. A follow-up visit in two weeks will allow for evaluation of his symptoms and determine if this medication should be restarted. Existing medications, including desmopressin for enuresis, will be continued, and an outstanding order for a swallow study will be pursued to evaluate his dysphagia. The patient will follow up in 3 months for a comprehensive lab recheck. Total Time Statement 30 Total time spent caring for the patient today includes pre-visit chart review, documentation, review of laboratory and diagnostic imaging results, medication reconciliation, medically necessary evaluation, counseling on diagnoses, care coordination, ordering appropriate tests and medications, review of tests performed by other providers, reporting test results to the patient, and communication with other healthcare providers. Orders: Orders Quantiferon TB Gold Plus 1 Today Z13.9 - Encounter for screening, unspecified TDaP Immunization Today Z23 - Encounter for immunization Influenza [id number] Immunization Today Z23 - Encounter for immunization Medications: New metformin 1,000 mg PO BID 180 tabs 0RF rosuvastatin 20 mg PO DAILY 90 tabs 0RF Refilled desmopressin 0.4 mg (2 x 0.2 mg) PO BEDTIME 180 tabs 0RF Coding Level of Care Code Medicare Subsequent (G0439) Est Pt Level 4 (37163) Diagnoses Hyperlipidemia E78.5 Elevated alkaline phosphatase level R74.8 Nocturnal enuresis N39.44 Seborrhea of face L21.9
--- OUTSIDE RECORDS SUMMARY | 2025-07-05 13:49 | XMS_ITS | Encounter Summary ---
Author Organization [employer] Address [address] [place] [address] Care Team Providers Care Traffic Control Signaler Name Role Phone Jess Paris MD Primary Care Provider [phone]- [phone] Kiera Hassan PharmD Unavailable [phone] Ruth Silverio OD Unavailable [phone] Encounter Details Date Type Department Care Team (Late st Contact Info) Description 09/17/2023 Telephone [facility] [address] [place], [place] [phone] Sujey Mancuso LPN Social History Tobacco Use [...] documented as of this encounter Care Teams Traffic Control Signaler Relationship Specialty Start Date End Date Jess Paris MD [address] [place] [address] PCP - General Family Medicine 06/14/13 Kiera Hassan, PharmD [address] [place] [address] Pharmacist Internal Medicine 08/03/22 Ruth Silverio OD [address] [place] [address] Optometry 11/16/24 Elara Caring 06/27/24 Malathi Abraham APRN Psychiatry 11/16/24 documented as of this encounter
--- OUTSIDE RECORDS SUMMARY | 2025-07-05 13:49 | XMS_ITS | Encounter Summary ---
Author Organization [employer] Address [address] [facility] [address] [place] [address] Care Team Providers Care Motion Study Technician Name Role Phone Jess Paris MD Primary Care Provider [phone] Kiera Hassan PharmD Unavailable [phone] Ruth Silverio OD Unavailable Encounter Details Date Type Department Care Team (Late st Contact Info) Description 2022 Abstract [facility] [address] [place] [address] Jess Paris MD [address] [place], [place] [phone] Social History Tobacco Use Types Packs/Day Years [...] on filedocumented in this encounter Care Teams Motion Study Technician Relationship Specialty Start Date End Date Jess Paris MD [address] [place], [place] [phone] PCP - General Family Medicine 06/14/13 Kiera Hassan, AmandoD [address] [place] [address] Pharmacist Internal Medicine 08/03/22 Ruth Silverio OD [address] [place] [address] Optometry 11/16/24 French Martin 06/27/24 Malathi Abraham LEAD RELAY TESTER Psychiatry 11/16/24 documented as of this encounter
--- OUTSIDE RECORDS SUMMARY | 2025-07-05 13:49 | XMS_ITS | Encounter Summary ---
Author Organization [employer] Address [address] [facility] [address]t [place] [address] Care Team Providers Care Final Cleaner Name Role Phone Jess Paris MD Primary Care Provider [phone] Kiera Hassan PharmD Unavailable [phone] Ruth Silverio OD Unavailable [phone] Encounter Details Date Type Department Care Team (Late st Contact Info) Description 11/16/2024 Orders Only [facility] MED[facility]INE [address] [place], [place] [phone] Jess Paris MD [address] [place], [place] [phone] Social History Tobacco Use Types Packs/Day Years [...] documented as of this encounter Care Teams Final Cleaner Relationship Specialty Start Date End Date Jess Paris MD [address] [place] [address] PCP - General Family Medicine 06/14/13 Kiera Hassan, PharmD [address] [place] [address] Pharmacist Internal Medicine 08/03/22 Ruth Silverio OD [address] [place] [phone] Optometry 11/16/24 Elara [facility]aring 06/27/24 Malathi Abraham IMPROVEMENT SPEC Psychiatry 11/16/24 documented as of this encounter
--- OUTSIDE RECORDS SUMMARY | 2025-07-05 13:49 | XMS_ITS | Encounter Summary ---
Author Organization [employer] Address [address] [facility] [address] [place] [address] Care Team Providers Care Employment And Claims Aide Name Role Phone Jess Paris MD Primary Care Provider [phone] Kiera Hassan PharmD Unavailable Ruth Silverio OD Unavailable [phone] Encounter Details Date Type Department Care Team (Late st Contact Info) Description 10/05/2022 Abstract [facility]INE [address] [place] [address] Jess Paris MD [address] [place], [place] [phone] Social History Tobacco Use Types Packs/Day Years [...] on filedocumented in this encounter Care Teams Employment And Claims Aide Relationship Specialty Start Date End Date Jess Paris MD [address] [place], [place] [phone] PCP - General Family Medicine 06/14/13 Kiera Hassan, AmandoD [address] [place] [address] Pharmacist Internal Medicine 08/03/22 Ruth Silverio OD [address] [place] [address] Optometry 11/16/24 French Martin 06/27/24 Malathi Abraham EXPRESSIVE MUSIC THERAPIST Psychiatry 11/16/24 documented as of this encounter
--- OUTSIDE RECORDS SUMMARY | 2025-07-05 13:49 | XMS_ITS | Encounter Summary ---
Author Organization [employer] Address [address] [facility] [address]t [place] [address] Care Team Providers Care Medical Unit Secretary Name Role Phone Jess Paris MD Primary Care Provider Kiera Hassan PharmD Unavailable Ruth Silverio OD Unavailable [phone] Reason for Visit * Reason Comments Med Refill Encounter Details Date Type Department Care Team (Late st Contact Info) Description 06/30/2025 Refill [facility] MED[facility]INE [address] [place], [place] [phone] Jess Paris MD [address] [place], [place] [phone] Constipation, unspecified constipation type Social History Tobacco Use Types Packs/Day Years [...] as of this encounter Visit Diagnoses Diagnosis Constipation, unspecified constipation type documented in this encounter Additional Health Concerns Assessment Noted Time PHQ-9 Depression Total Score: 0 05/03/20 24 8:55 AM EDT documented as of this encounter Care Teams Medical Unit Secretary Relationship Specialty Start Date End Date Jess Paris MD [address] [place] [address] PCP - General Family Medicine 06/14/13 Kiera Hassan, PharmD [address] [place] [address] Pharmacist Internal Medicine 08/03/22 Ruth Silverio OD [address] [place] [address] Optometry 11/16/24 French Martin 06/27/24 Malathi Abraham INSTRUCTOR SUBSTITUTE COSMETOLOGY Psychiatry 11/16/24 documented as of this encounter
--- OUTSIDE RECORDS SUMMARY | 2025-07-05 13:49 | XMS_ITS | Encounter Summary ---
Author Organization [employer] Address [address] [facility] [address] [place] [address] Care Team Providers Care Manager Market Development Name Role Phone Jess Paris MD Primary Care Provider Kiera Hassan PharmD Unavailable Ruth Silverio OD Unavailable [phone] Encounter Details Date Type Department Care Team (Late st Contact Info) Description 09/21/2022 Orders Only [facility] MEDICINE [address] [place], [place] [phone] Jess Paris MD [address] [place], [place] [phone] Other specified diabetes mellitus with hyperglycemia, without [...] Primary documented in this encounter Care Teams Manager Market Development Relationship Specialty Start Date End Date Jess Paris MD [address] [place], [place] [phone] PCP - General Family Medicine 06/14/13 Kiera Hassan, AmandoD [address] [place], [place] [phone] Pharmacist Internal Medicine 08/03/22 Ruth Silverio OD [address] [place] [address] [phone] Optometry 11/16/24 French Martin 06/27/24 Malathi Abraham APRN Psychiatry 11/16/24 documented as of this encounter
--- OUTSIDE RECORDS SUMMARY | 2025-07-05 13:50 | XMS_ITS | Encounter Summary ---
Author Organization [employer] Address [address] [facility] [address] [place] [address] Care Team Providers Care Production Analyst Name Role Phone Jess Paris MD Primary Care Provider [phone] Kiera Hassan PharmD Unavailable [phone] Ruth Silverio OD Unavailable Encounter Details Date Type Department Care Team (Late st Contact Info) Description 03/24/2022 [facility] [employer] [address] [place], [place] [phone] Jess Paris MD [address] [place], [place] [phone] Social History Tobacco Use Types Packs/Day Years [...] on filedocumented in this encounter Care Teams Production Analyst Relationship Specialty Start Date End Date Jess Paris MD [address] [place], [place] [phone] PCP - General Family Medicine 06/14/13 Kiera Hassan, PharmD [address] [place] [address] [phone] Pharmacist Internal Medicine 08/03/22 Ruth Silverio OD [address] [place] [address] Optometry 11/16/24 French Martin 06/27/24 Malathi Abraham APRN Psychiatry 11/16/24 documented as of this encounter
--- OUTSIDE RECORDS SUMMARY | 2025-07-05 13:50 | XMS_ITS | Clinical Summary ---
Author Organization [employer] Address [address] [facility] [address] [place] [address] Care Team Providers Care Polisher And Buffer Name Role Phone Jess Paris MD Primary Care Provider [phone]- [phone] Kiera Hassan PharmD Unavailable [phone] Ruth Silverio OD Unavailable [phone] Allergies Active Allergy Reactions Criticality Noted Date Comments Fluphenazine 03/09/2012 Other reaction(s): akathesia , akathesia Haloperidol 03/09/2012 Other reaction(s): akathesia [place] 12/29/2017 Oxcarbazepine 12/15/2018 Medications * This document contains information received from the source organization and may not represent a complete record from that organization. polyethylene glycol, PEG, 3350 (MiraLax) 17 GM/SCOOP powderIndications :Constipation, unspecified constipation type 17 grams in 8-12 oz fluid like water at bedtime prn constipation 527 g 2 023 Active selenium sulfide (Selsun) 2.5 % shampooIndication s:Seborrheic dermatitis Use three times a week in shower to hair and forehead 118 mL 3 023 Active TRUEplus Lancets 28G miscIndications:T ype 2 diabetes mellitus with hyperglycemia, without long-term current use of insulin (HCC) TEST BLOOD SUGAR TWICE DAILY 100 each 11 023 Active empagliflozin (Jardiance) 25 MGIndications:Clarissa betes mellitus without complication (HCC) Take 1 tablet (25 mg) by mouth in the morning. 30 tablet 11 024 Active metFORMIN (Glucophage) 1000 MG tabletIndications :Diabetes mellitus without complication (HCC) TAKE 1 TABLET BY MOUTH TWICE DAILY WITH MEALS 180 tablet 3 Active metoprolol succinate XL (Toprol-XL) 25 MG 24 hr tabletIndications :Elevated blood-pressure reading without diagnosis of hypertension Take 1 tablet (25 mg) by mouth in the morning. 90 tablet 3 024 Active QUEtiapine (SEROquel) 25 MG tablet Take 1 tablet twice daily as needed Active atorvastatin (Lipitor) 40 MG tabletIndications :Diabetes mellitus without complication (HCC) TAKE 1 TABLET BY MOUTH ONCE DAILY 30 tablet 3 024 Active dulaglutide (Trulicity) 3 MG/0.5ML solution pen-injectorIndic ations:Type 2 diabetes mellitus with hyperglycemia, without long-term current use of insulin ([facility]) INJECT ONE PEN (3 MG) SUBCUTANEOUSLY ONCE WEEKLY 4 each 6 Active glucose blood (FREESTYLE LITE) test stripIndications: Type 2 diabetes mellitus with hyperglycemia, without long-term current use of insulin ([facility]) USE TO CHECK BLOOD SUGAR TWICE A [...] 1 tablet by mouth 2 times daily. Active tamsulosin (Flomax) 0.4 MG 24 hr capsule TAKE 1 CAPSULES ONCE A DAY FOR BLADDER RETENTION 30 capsule Active sennosides (Senna-Time) 8.6 MG tabletIndications :Constipation, unspecified constipation type TAKE 2 TABLETS BY MOUTH TWICE A DAY FOR CONSTIPATION 120 tablet 025 Active docusate sodium (Colace) 100 MG capsule TAKE 1 CAPSULE BY MOUTH TWICE A DAY FOR CONSTIPATION 60 capsule 025 Active metoprolol tartrate (Lopressor) 25 MG tablet TAKE 1 TABLET BY MOUTH TWICE DAILY 60 tablet 025 Active sennosides (Senokot) 8.6 MG tabletIndications :Constipation, unspecified constipation type 1-2 tabs po nightly prn constipation 60 tablet 11 023 2024 Discontinued Active Problems Problem Noted Date Diagnosed Date [...] 09/18 Overview (01/19/2024): -psychiatry Haile Gutierrez NP [phone] -therapist, Teena [phone] and [facility]. -Chitra is worker on [facility] outreach team [phone] -day program at [facility] prior to the pandemic, currently ina -visiting RN : Eleuterio White [phone] with CARIN Clancy [facility] since 02/2018:piano case and bench assembler:Isabel Harry [phone], , Assessment & Plan (01/19/2024 12:13 PM EDT): -psychiatry Haile Gutierrez NP [phone] -therapist, Teena [phone] and [facility]. -Chitra is worker on [facility] outreach team [phone] -day program at [facility] prior to the pandemic, currently ina -bucky RN : Eleuterio White [phone] with CARIN Clancy [facility] since 02/2018:piano case and bench assembler:Isabel Harry [phone], , Other specified health status 05/21/2023 Overview (06/14/2024): -next comprehensive annual evaluation due after 05/24/2024 -eye care facilitated by [facility] -[place], last seen on 11/2022 -health care proxy Assessment & Plan (05/21/2023 11:26 AM EDT): -next physical exam due after 06/15/2023 -eye care facilitated by [facility] -dental home is [place], last seen on 11/2022 -Referral to GI for colon cancer screening 05/21/2023 Left foot pain 05/21/2023 Overview (05/21/2023): -Referral done to PT 05/21/2023 -High risk for falls due to medication side effects. We will see if he can get PT at home, will call his [facility] for PT assistance Assessment & Plan (05/21/2023 12:00 PM EDT): -Referral done to PT 05/21/2023 -High risk for falls due to medication side effect. We will see if he can get PT at home, will call his [facility] for PT assistance Bilateral impacted cerumen 05/21/2023 [...] recommended he use selenium sulfide shampoo and [place] scalp oil, as well as Ketoconazole [...] recommended he use selenium sulfide shampoo and [place] scalp oil, as well as Ketoconazole [...] colon cancer screening 05/21/2023, number given to [facility] to contact, new referral placed 01/19/24 Assessment & Plan (01/19/2024 12:14 PM EDT): referral GI colon cancer screening 05/21/2023, number given to [facility] to contact, new referral placed 01/19/24 Assessment [...] with pharmacy CDTM by Dr. Kiera Hassan PharmAamir. Lab Results Component Value Date HGBA1C 6.1 [...] BID -glipizide discontinued on 04/16/22 Chronic schizophrenia (CMS/HCC) 08/23/1959 Overview (09/27/2024): Pt's hospitalizations include 06/2020 to 09/2020 and 09/23/2023. prior to that is was 11/2014-12/2014 treated with changes in medication and ECT. Stable with psychiatry Chris Arvizu NP [phone], therapist, and [facility]. We had a three way call with his piano case and bench assembler Chitra ([phone]) who will reach out to precriber and his nurse Stephani ([phone]) left message to check if he needs refills on antything and to request if needed. He is in day program at [facility] prior to the pandemic and has [employer] [facility] in the home. -Admitted 09/23/23 for [...] anxiety, decrease daytime sedation. -Admitted 03/20/24 to [facility] -Admitted 07/11/24 to [facility] for section 12/self injurious behavior -CT08/09/24 CT/CT head/brain wo IV con IMPRESSION: No evidence of acute intracranial hemorrhage or edematous territorial infarction. Mild underlying microangiopathy and generalized cerebral volume loss. Recent Hospitalizations include [facility] (06/13/24-06/26/24), [facility] (06/29/24 - 08/21/24), [facility] (08/30/24 - 09/05/24), [facility] (09/05/24 - 09/06/24), and [facility] (09/06/24 to - 09/07/24). Appears to [...] ECT. Stable with psychiatry Chris Arvizu NP [phone], therapist, and [facility]. We had a three way call with his piano case and bench assembler Chitra ([phone]) who will reach out to precriber and his nurse Stephani ([phone]) left message to check if he needs refills on antything and to request if needed. He is in day program at [facility] prior to the pandemic and has [facility] in the home. Assessment & Plan (10/30/2022 9:05 AM EST): Pt's last hospitalization was 06/2020 to 09/2020, prior to that is was 11/2014- 12/2014 treated with changes in medication and ECT. Stable with psychiatry Chris Arvizu NP [phone], therapist, and [facility]. We had a three way call with his piano case and bench assembler Chitra ([phone]) who will reach out to precriber and his nurse Stephani ([phone]) left message to check if he needs refills on antything and to request if needed. He is in day program at [facility] prior to the pandemic and has [facility] in the home. Severe obesity (CMS/HCC) 08/23/1959 Resolved Problems Problem Noted Date Diagnosed Date Resolved Date Hyperlipidemia 11/09/2018 09/10/2022 Encounters Date Type Department Care Team Description 06/30/2025 Refill [facility] [address] [place] [phone] Jess Paris MD Constipation, unspecified constipation type from Last 3 Months Immunizations Immunization Administration Dates Next Due Hep [...] history exists Depression Screening 05/03/2025 05/03/2024, 05/03/20 SDOH Screening 06/01/2025 06/01/2024 Diabetes: Hemoglobin A1C 08/07/2025 025, 11/28/2024, 09/14/2024, Additional history exists Zoster [...] 4.8(02/05/2025 1:55 PM EDT) No Kiera Hassan, Jesi Procedures Procedure Name Priority Date/Time Associated Diagnosis Comments POCT GLYCATED HEMOGLOBIN, TOTAL Routine 01/19/2024 2:44 PM EDT Type 2 diabetes mellitus with hyperglycemia, without long-term current use of insulin (CMS/HCC) HEPATITIS C AB W/REFL TO HCV RNA, [...] (ABNORMAL) POCT A1C (01/19/2024 2:44 PM EDT) Pathologist [facility] Hemoglobin A1C 6.1(A) 4.0 - 6.0 % QC Media Lot # [id number] Lot# Expiration Date Blood 01/19/2024 2:44 PM EDT Jess Paris MD POINT OF CARE TEST ENTER/E DIT ORDERABLES Final Result * Hepatitis C Antibody with Reflex to HCV, RNA, Quantitative, Real-Time PCR (01/19/2024 12:58 PM EDT) Hepatitis C Antibody Nonreactive Nonreactive [facility] Comment:Antibodies to HCV no t detected; does not exclude early acuteHCV infection. Blood Venous blood specimen / Unknown 01/19/2024 12:58 PM EDT 01/19/2024 4:44 PM EDT us Jess Paris MD LAB BLOOD ORDERABLES Final Result [facility] [address] [place] [phone] * HIV-1/2 Antigen and Antibodies, Fourth Generation, with Reflexes (01/19/2024 12:58 PM EDT) [facility] HIV AB/AG Nonreactive Nonreactive [facility] Comment:HIV-1 p24 Ag and/or HIV-1/HIV-2 Ab not detected.A test result that is nonreactive does not exclude thepossibility of exposure to or infection with HIV-1 and/orHIV-2. Nonreactive results in this assay for individualswith prior exposure to HIV-1 and/or HIV-2 may be due toantigen and antibody levels that are below the limit ofdetection of this assay.The [employer] HIV Ag/Ab Combo assay result andsupplemental assay results should be interpreted inconjunction with the patient's clinical presentation,history and other laboratory results. If the results areinconsistent with clinical evidence, additional testing issuggested to confirm the result. Blood Venous blood specimen / Unknown 01/19/2024 12:58 PM EDT 01/19/2024 4:44 PM EDT us Jess Paris MD LAB BLOOD ORDERABLES Final Result [facility] [address] [place] [phone] [phone] * Lipid Panel, Standard (12/02/2022 11:02 AM EDT) [facility] Triglycerides 297 mg/dL [facility] Comment:Desirable Triglyceri de: less than 150 mg/dLBorderline High Triglyceride 150-199 mg/dLHigh Triglyceride: 200-499 mg/dLVery High Triglyceride: greater than or equal to 5OO mg/dL Cholesterol 182 mg/dL [facility] Comment:Desirable Cholestero l: less than 200 mg/dLBorderline High Cholesterol: 200-239 mg/dLHigh Cholesterol: greater than 239 mg/dL LDL Cholesterol Calculated 97 mg/dl [facility] Comment:Desirable LDL: less than 100 mg/dLNear Optimal/Above Optimal LDL: 110- 129 mg/dLBorderline High LDL: 130-159 mg/dLHigh LDL: 160-189 mg/dLVery High LDL: greater than or equal to 190 mg/dL HDL Cholesterol 26 mg/dL [facility] Comment:Desirable HDL: great er than 40 mg/dL Note: This HDL assay may give artificially low results in patients with liver disease. 12/02/2022 11:0 2 AM EDT 12/02/2022 11:02 AM EDT [facility] External Provider LAB BLO OD ORDERABLES Final Result Performing Organization Address City/[facility]/ZIP Co de Phone Number [facility] [address] [place] [phone] [phone] * MICROALBUMIN/CREATININE RATIO, RANDOM URINE (07/17/2022 [...] L ABS Final Result Performing Organization Address City/[facility]/ZIP Co de Phone Number [facility] from Last 3 Months or Most Recently Relevant to Health Maintenance Insurance MEDICARE [facility] STAND[facility] Care Teams Polisher And Buffer Relationship Specialty Start Date End Date [place], MD Jess [address] [place] [address] PCP - General Family Medicine 06/14/13 Kiera Hassan, AmandoD [address] [place] [address] Pharmacist Internal Medicine 08/03/22 Ruth Silverio OD [address] [place] [address] Optometry 11/16/24 French Martin 06/27/24 Malathi Abraham APRN Psychiatry 11/16/24
--- OUTSIDE RECORDS SUMMARY | 2025-07-05 13:50 | XMS_ITS | Encounter Summary ---
Author Organization [employer] Address [address] [facility] 7t [place] [address] Care Team Providers Care Insulation Packer Name Role Phone Jess Paris MD Primary Care Provider [phone]- [phone] Kiera Hassan PharmD Unavailable Ruth Silverio OD Unavailable [phone] Reason for Visit * Reason Onset Date Comments FYI 05/02/2024 Encounter Details Date Type Department Care Team (Late st Contact Info) Description 05/02/2024 Telephone [facility] [address] [place], [place] [phone] Jess Paris MD [address] [place], [place] [phone] FYI Social History Tobacco Use Types Packs/Day [...] might happen 0 05/03/2024 8:55 AM EDT Liesth Bryant LICSW JUANCHO-7 Total Score 1 05/03/2024 [...] r/s till August. Anyquestion contact phone # [phone]. documented in this encounter Plan of Treatment [...] documented as of this encounter Care Teams Insulation Packer Relationship Specialty Start Date End Date Jess Paris MD [address] [place] [address] PCP - General Family Medicine 06/14/13 Kiera Hassan, PharmD [address] [place] [address] Pharmacist Internal Medicine 08/03/22 Ruth Silverio OD [address] [place] [phone] Optometry 11/16/24 French Martin 06/27/24 Malathi Abraham APRN Psychiatry 11/16/24 documented as of this encounter
--- OUTSIDE RECORDS SUMMARY | 2025-07-05 13:50 | XMS_ITS | Encounter Summary ---
Author Organization [employer] Address [address] [facility] 7t [place] [address] Care Team Providers Care Ground Crewman Aircraft Support Name Role Phone Jess Paris MD Primary Care Provider +- [phone] Kiera Hassan PharmD Unavailable Ruth Silverio OD Unavailable [phone] Reason for Referral * Consultation (Routine) - Closed Specialty Diagnoses / Procedures Referred By Contac t Referred To Contact Urology Diagnoses Urinary incontinence, unspecified type Jess Paris MD [address] [place] [address] Phone: tel: fax: [facility] [address] [place], [place] Phone: tel: fax: Referral ID Status Reason Start Date Expiration Date V isits Requested Visits Authorized [id number] Closed Specialty Services Required 05/02/2024 05/02/2025 1 1 Encounter Details Date Type Department Care Team (Late st Contact Info) Description 05/02/2024 Orders Only [facility] [address] [place] [address] Jess Paris MD [address] [place], [place] [phone] Urinary incontinence, unspecified type (Primary Dx) Social [...] documented as of this encounter Care Teams Ground Crewman Aircraft Support Relationship Specialty Start Date End Date Jess Paris MD [address] [place] [address] PCP - General Family Medicine 06/14/13 Kiera Hassan, PharmD [address] [place] [address] Pharmacist Internal Medicine 08/03/22 Ruth Silverio OD [address] [place] [phone] Optometry 11/16/24 French Martin 06/27/24 Maltahi Abraham APRN Psychiatry 11/16/24 documented as of this encounter
== END 2025-07-05 11:45 | disposition home or self-care (01) ==
LOC: HO.HMCFMS 11:04
PROVIDERS: PCP Student in an Organized Health Care Education/Training Program; Visit Provider Student in an Organized Health Care Education/Training Program
DX: Z00.01 Encounter for general adult medical examination with abnormal findings (principal); E11.9 Type 2 diabetes mellitus without complications; E78.5 Hyperlipidemia, unspecified; R74.8 Abnormal levels of other serum enzymes; N39.44 Nocturnal enuresis; R13.10 Dysphagia, unspecified; Z23 Encounter for immunization

== ENCOUNTER 2025-07-05 11:03 | Outpatient (REF) | payer MEDICARE, MEDICAID, SELFPAY ==
[2025-07-08 19:54] LABS: Quantiferon TB Gold Plus 1 NEGATIVE (NEGATIVE); TB Test (QFT) Mitogen -Nil 9.93 IU/mL; TB Test (QFT) Nil 0.02 IU/mL; TB Test (QFT) Plus TB1 -Nil 0.00 IU/mL; TB Test (QFT) Plus TB2 -Nil 0.00 IU/mL
== END 2025-07-05 11:04 | disposition home or self-care (01) ==
LOC: HO.HKASLDS 11:03
PROVIDERS: PCP Student in an Organized Health Care Education/Training Program; Visit Provider Student in an Organized Health Care Education/Training Program
DX: E78.5 Hyperlipidemia, unspecified (principal); R74.8 Abnormal levels of other serum enzymes; N39.44 Nocturnal enuresis; L21.9 Seborrheic dermatitis, unspecified; Z13.89 Encounter for screening for other disorder; E11.9 Type 2 diabetes mellitus without complications
CPT/HCPCS: 36415; 86480

== ENCOUNTER 2025-07-06 11:35 | Outpatient (REF) | payer MEDICARE, MEDICAID, SELFPAY ==
[2025-07-06 18:23] LABS: Appearance Urine Clear; Glucose Urine UA Negative (Negative); PH 5.0 (5.0-9.0); Specific Gravity - Urine 1.015 (1.005-1.025); UMIC TRIGGER UACC YES
[2025-07-06 18:52] LABS: Microalbum/Creatinine Ratio Ur 5.7 ug/mg cr (<30)
== END 2025-07-06 11:36 | disposition home or self-care (01) ==
LOC: HO.HKASLDS 11:35
PROVIDERS: PCP Student in an Organized Health Care Education/Training Program; Visit Provider Student in an Organized Health Care Education/Training Program
DX: Z13.89 Encounter for screening for other disorder (principal)
CPT/HCPCS: 81001; 82043; 82570

== ENCOUNTER 2025-07-18 11:23 | Outpatient (AMB) | payer MEDICARE, MEDICAID, SELFPAY ==
--- NOTE | 2025-07-18 11:43 | A.OFFPC_ITS ---
Vital Signs 07/18/25 11:49 Height 5 ft 9 in Weight 157 lb BMI 23.2 BP 114/62 Blood Pressure Location Rt brachial Position Sitting Respiration 18 Pulse 96 Pulse Source Monitor Temp 97.4 F Temp Source Oral Pulse Oximetry (%) 99 Intake Visit Reasons: 2 wk f/u Intake Note: follow up, Patient is having really hard poop and has also been having abrasions on both legs Medium Cycle Salesperson Required: No Accompanied by: ORGANIZATIONAL DEVELOPMENT DIRECTOR Allergies haloperidol (From Haldol) Allergy (Intermediate, Verified 07/18/25 11:49) Agitated lithium Allergy (Intermediate, Verified 07/18/25 11:49) Agitated oxcarbazepine (From TRILEPTAL) Allergy (Unknown, Verified 07/18/25 11:49) RASH fluphenazine (From Prolixin) Allergy (Verified 07/18/25 11:49) akathisia Tobacco use date assessed: 06/29/25 Dental Screening Dental Screen Date: 06/29/25 HPI HPI Comments History of Present Illness Details History of Present Illness The patient is a 49 year old individual presenting for a follow-up visit for management of multiple chronic conditions and acute complaints. Type 2 diabetes mellitus: The patient was diagnosed with type 2 diabetes at a previous visit and was started on metformin. The patient initially believed the diagnosis was minor. Hyperlipidemia: The patient has a history of hyperlipidemia and was started on rosuvastatin at the last visit. Constipation: The patient reports having very hard stools. The patient is taking Colace and Senna. Dietary intake includes water and sugar-free juices, although fiber intake is likely insufficient. Skin Abrasions: The patient has abrasions on both legs, with associated breaks in the skin. The patient is unsure of the cause and denies any specific trauma. The patient is noted to have sensitive skin. Headache: The patient's caregiver reports complaints of headaches, for which they are requesting a prescription for Tylenol. The patient initially denied having headaches but then confirmed having them, though could not recall the last episode. Medications: - Metformin - Polyethylene glycol - Rosuvastatin - Colace - Metoprolol - Senna - Flomax - Pull-ups Social History: - Nutrition: The patient is reported to have a large appetite. - Diet: The patient consumes water and s ugar-free juices; however, fiber intake needs to be increased. - Living Situation: The patient appears to reside in a facility with rules that require a physician's order for all medications, including obkr-bjo-kpjaxdp products like Tylenol and Tums. Past Medical History - Type 2 diabetes mellitus, started on m etformin at last visit. - Hyperlipidemia, started on rosuvastati n at last visit. Health Maintenance - Dietary counseling provided regarding the need to increase fiber intake for constipation. [facility] Medical History (Updated 07/18/25 @ 13:40 by Tolu Soares MD) Skin abrasion Hard stool Headache Leg wound, right Elevated alkaline phosphatase level Hyperlipidemia Urinary incontinence Constipation Hypertension Nocturnal enuresis Hypercholesterolemia Seborrhea of face Acute anxiety Schizoaffective disorder Diabetes 1.5, managed as type 2 Social History Household Members: Other Household Members Other:: roommate Housing: Apartment Housing Other:: [facility] supported apartment Do you presently have visiting nurse or other home services: Yes Alcohol intake: former Comment: utilizing a walker Patient Tobacco Use Status: Never used Tobacco Tobacco use type: Cigarette e-Cigarette/Vaping Use: Never Used Second Hand Smoke Exposure: No service: No Sexual orientation: Straight/Heterosexual Cognitive needs: No Hearing needs: No Vision needs: No Questionnaire Thrive Questionnaire Date Thrive assessed: 06/29/25 I am a: Parent/Caregiver What is your living situation today?: I have a steady place to live Within the past 12 months, did the food you bought not last and you didn't have the money to get more?: Never true Within the past 12 months, did you worry whether your food would run out before you got money to buy more?: Never true Do you have trouble paying for medicines?: No Do you have trouble getting transportation to medical appointments?: No Do you have trouble paying your heating and electricity bill?: No Do you have trouble taking care of your child, family member or friend?: No Are you currently unemployed and looking for a job?: No Are you interested in more education?: No Please select the resources that you would like help with: None Currently or been in a relationship where the following occur: No concerns reported THRIVE Score: 0 JUANCHO-7 AMB Questionnaire JUANCHO-7 Date JUANCHO - 7 assessed: 06/29/25 Source: Developed by Emperatriz Mendoza Avni, Edwar Lilly and colleagues, with an educational adina from [employer]. Review of Systems Narrative Review of Systems - Constitutional: Denies any acute concerns. - Integumentary: Reports sensitive skin. - Neurological: Reports having headaches but denies them initially. - Gastrointestinal: Reports very hard stools. - Gastrointestinal: Caregiver reports complaints of acid reflux. 10-point ROS reviewed and negative except as noted in HPI Physical exam (Primary Care) Vital Signs: Last Vital Signs Temp 97.4 F 07/18/25 11:49 Pulse 96 07/18/25 11:49 Resp 18 07/18/25 11:49 BP 114/62 07/18/25 11:49 Pulse Ox 99 07/18/25 11:49 BMI result Body Mass Index 23.2 Tobacco/Smoking Status: Tobacco use Status Tobacco use date assessed 06/29/25 07/18/25 11:43 Patient Tobacco Use Status Never used Tobacco 07/18/25 11:43 Tobacco use type Cigarette 07/18/25 11:43 e-Cigarette/Vaping Use Never Used 07/18/25 11:43 Thrive Assessment: Date of Thrive Assessment Date Thrive assessed 06/29/25 07/18/25 11:43 Currently or been in a relationship where the following occur: No concerns reported Narrative Physical Exam General: Well-appearing, in no acute distress. Vital signs: Within normal limits. HEENT: Normocephalic, atraumatic. PERRLA, EOMI. Conjunctiva clear, sclera anicteric. Oropharynx clear, mucous membranes moist. TMs intact bilaterally. Neck: Supple, no lymphadenopathy, no thyromegaly, no JVD or carotid bruits. Cardiovascular: RRR, normal S1/S2, no murmurs, rubs, or gallops. Peripheral pulses 2+ and symmetric. No edema. Respiratory: Lungs clear to auscultation bilaterally, no wheezes, rales, or rhonchi. Normal effort. Abdomen: Soft, non-tender, non-distended. Normoactive bowel sounds. No hepatosplenomegaly, no masses. MSK: Full range of motion, no joint swelling or deformity. Normal gait. Skin: Warm, dry, intact. Abrasions noted on right and left tibia. No rashes or pallor. Neuro: Alert and oriented x3. Cranial nerves II-XII intact. Strength 5/5 throughout. Sensation intact. Reflexes 2+ symmetric. Normal coordination and gait. Psych: Appropriate mood and affect. Normal judgment and insight. Coding Level of Care Code Est Pt Level 3 (38902) Diagnoses Diabetes mellitus E11.9 Leg wound, right S81.801A Hyperlipidemia E78.5 Constipation K59.00 Hard stool R19.5 Skin abrasion T14.8XXA Headache R51.9 Assessment & Plan Assessment & Plan (1) Diabetes mellitus: Code(s): E11.9 - Type 2 diabetes mellitus without complications Category: Medical (2) Leg wound, right: Code(s): S81.801A - Unspecified open wound, right lower leg, initial encounter Category: Medical (3) Hyperlipidemia: Code(s): E78.5 - Hyperlipidemia, unspecified Category: Medical (4) Constipation: Code(s): K59.00 - Constipation, unspecified Category: Medical (5) Hard stool: Code(s): R19.5 - Other fecal abnormalities Category: Medical (6) Skin abrasion: Code(s): T14.8XXA - Other injury of unspecified body region, initial encounter Category: Medical (7) Headache: Code(s): R51.9 - Headache, unspecified Category: Medical Plan Consent Patient was informed and verbally consented to the use of an ambient scribe for clinic note documentation during this visit. Plan 1. Type 2 Diabetes Mellitus - Continue metformin. - Refills for metformin will be provided. - Blood sugar monitoring at home is not deemed necessary at this time. 2. Hyperlipidemia - Continue rosuvastatin, and a refill will be provided. 3. Constipation - Refill prescriptions for Colace and Senna. - Prescribe Metamucil, one caplet at bedtime, to increase fiber intake and soften stools. - Counseled on the importance of increasing water and dietary fiber intake. - Continue polyethylene glycol and pull-ups as previously prescribed. 4. Skin Abrasions - Prescribe bacitracin topical ointment to be applied as needed to the abrasions on the right and left tibia. - Advised to keep the wounds clean, noting the increased risk of infection due to diabetes. 5. Headache - Prescribe Tylenol 325 mg by mouth as needed for headaches, primarily to comply with the patient's residential facility rules requiring orders for vfjs-fbu-xyrjnjx medications. Discussion Notes I reviewed the patient's active medical issues, including the recent diagnoses of type 2 diabetes and hyperlipidemia, for which medications were initiated at the last visit. I explained that there is no such thing as minor type 2 diabetes. For the bilateral leg abrasions, I noted they appear traumatic in nature and prescribed topical bacitracin, emphasizing the importance of keeping them clean to prevent infection due to the patient's diabetes. To address the patient's constipation and hard stools, I refilled Colace and Senna and added Metamucil to increase fiber, also advising on increasing water intake. I addressed the request for sxxd-nrn-aravzkm medication orders, which are required by the patient's residential facility, and provided a prescription for Tylenol PRN for headaches. I clarified which medications I had prescribed and provided refills. I also communicated to the caregiver that for me to make sound clinical decisions, I require comprehensive information and that making requests via sticky notes is insufficient. Patient Instructions - Continue to take your medications for diabetes (metformin) and cholesterol (rosuvastatin) as prescribed. - For the cuts on your legs, apply the bacitracin ointment as needed. - Make sure to keep the cuts on your legs clean to prevent infection. - For constipation, continue taking Colace and Senna. - Start taking Metamucil at bedtime to help soften your stool. - Increase the amount of fiber and water in your diet. - You may take Tylenol as needed if you have a headache. Medical Decision Making The patient is a 49-year-old individual with established diagnoses of type 2 diabetes and hyperlipidemia, who presented for a follow-up visit. Management of these chronic conditions involves continuing metformin and rosuvastatin, which were initiated at a prior visit. Home glucose monitoring is not indicated at this time. The patient presented with new complaints of bilateral leg abrasions and ongoing constipation. The skin abrasions are concerning for an increased risk of infection given the patient's diabetes, warranting the prescription of topical bacitracin and counseling on wound care. The constipation, characterized by hard stools, is being managed with Colace and Senna; the addition of a bulk- forming agent like Metamucil is a logical step to improve stool consistency, supplemented with dietary advice to increase fiber and water intake. A prescription for Tylenol was provided for headaches to comply with the patient's residential facility's medication administration policies. A brief cognitive screen showed the patient to be alert and oriented. Medication reconciliation was performed, and refills were provided for appropriate medications. Total Time Statement 20 min Total time spent caring for the patient today includes pre-visit chart review, documentation, review of laboratory and diagnostic imaging results, medication reconciliation, medically necessary evaluation, counseling on diagnoses, care coordination, ordering appropriate tests and medications, review of tests performed by other providers, reporting test results to the patient, and communication with other healthcare providers. Medications: New bacitracin 1 appl topical Q8H 28 grams 0RF S81.801A - Unspecified open wound, right lower leg, initial encounter psyllium husk (Metamucil) 0.4 grams PO BEDTIME 90 caps 0RF acetaminophen (Tylenol) 325 mg PO QID PRN 30 tabs 0RF fever or pain R51.9 - Headache, unspecified Refilled docusate sodium 100 mg PO BID 60 caps 0RF for constipation sennosides (senna) 17.2 mg (2 x 8.6 mg) PO BID 120 tabs 0RF for constipation polyethylene glycol 3350 (Miralax) 17 grams PO BID 476 grams 0RF K59.00 - Constipation, unspecified
[2025-07-18 11:49] VITALS: BP 114/62; PULSE 96; RESP 18; TEMP 36.3; O2SAT 99; BMI 23.2
--- OUTSIDE RECORDS SUMMARY | 2025-07-18 14:20 | XMS_ITS | Encounter Summary ---
Author Organization [employer] Address [address] [facility] [address] [place] [address] Care Team Providers Care Executive Communications Manager Name Role Phone Jess Paris MD Primary Care Provider [phone] Kiera Hassan PharmD Unavailable Ruth Silverio OD Unavailable [phone] Reason for Visit * Reason Onset Date Comments FYI 05/02/2024 Encounter Details Date Type Department Care Team (Late st Contact Info) Description 05/02/2024 Telephone [facility] [address] [place], [place] [phone] Jess Paris MD [address] [place], [place] [phone] FY Social History Tobacco Use Types Packs/Day [...] r/s till August. Anyquestion contact phone # [phone]. documented in this encounter Plan of Treatment [...] documented as of this encounter Care Teams Executive Communications Manager Relationship Specialty Start Date End Date Jess Paris MD [address] [place] [address] PCP - General Family Medicine 06/14/13 Kiera Hassan, PharmD [address] [place] [address] Pharmacist Internal Medicine 08/03/22 Ruth Silverio OD [address] [place] [id number] Optometry 11/16/24 French Martin 06/27/24 Malathi Abraham APRN Psychiatry 11/16/24 documented as of this encounter
--- OUTSIDE RECORDS SUMMARY | 2025-07-18 14:20 | XMS_ITS | Clinical Summary ---
Author Organization [employer] Address [address] [facility] [address] [place] [address] Care Team Providers Care Lab Aid Name Role Phone Jess Paris MD Primary Care Provider [phone] Kiera Hassan PharmD Unavailable Ruth Silverio OD Unavailable [phone] Allergies Active Allergy Reactions Criticality Noted Date Comments Fluphenazine 03/09/2012 Other reaction(s): akathesia , akathesia Haloperidol 03/09/2012 Other reaction(s): akathesia [place] 12/29/2017 Oxcarbazepine 12/15/2018 Medications * This document [...] hyperglycemia, without long-term current use of insulin ([facility]) INJECT ONE PEN (3 MG) SUBCUTANEOUSLY ONCE WEEKLY 4 each 6 Active glucose blood ([facility]) test stripIndications: Type 2 diabetes mellitus with hyperglycemia, without long-term current use of insulin ([facility]) USE TO CHECK BLOOD SUGAR TWICE [...] 09/18 Overview (01/19/2024): -psychiatry Haile Gutierrez NP [phone] -therapist, Teena [phone] and [facility]. -Chitra is worker on [facility] outreach team [phone] -day program at [facility] prior to the pandemic, currently ina -visiting RN : Eleuterio White [phone] with CARIN Clancy [facility] Care [facility] since 02/2018:caser:Isabel Harry [phone], , Assessment & Plan (01/19/2024 12:13 PM EDT): -psychiatry Haile Gutierrez NP [phone] -therapist, Teena [phone] and [facility]. -Chitra is worker on [facility] outreach team [phone] -day program at [facility] prior to the pandemic, currently ina -bucky RN : Eleuterio White [phone] with CARIN Clancy [facility] since 02/2018:caser:Isabel Harry [phone], , Other specified health status 05/21/2023 Overview (06/14/2024): -next comprehensive annual evaluation due after 05/24/2024 -eye care facilitated by [facility] -dental home is in [place], last seen on 11/2022 -health care proxy Assessment & Plan (05/21/2023 11:26 AM EDT): -next physical exam due after 06/15/2023 -eye care facilitated by [facility] -dental home is in [place], last seen on 11/2022 -Referral to GI for colon cancer screening 05/21/2023 Left foot pain 05/21/2023 Overview (05/21/2023): -Referral done to PT 05/21/2023 -High risk for falls due to medication side effects. We will see if he can get PT at home, will call his [facility] for PT assistance Assessment & Plan (05/21/2023 12:00 PM EDT): -Referral done to PT 05/21/2023 -High risk for falls due to medication side effect. We will see if he can get PT at home, will call his [facility] for PT assistance Bilateral impacted cerumen [...] recommended he use selenium sulfide shampoo and [place]- [place]oot[place] scalp oil, as well as Ketoconazole [...] recommended he use selenium sulfide shampoo and Graeagle- Smoothe scalp oil, as well as Ketoconazole [...] colon cancer screening 05/21/2023, number given to [facility] to contact, new referral placed 01/19/24 Assessment & Plan (01/19/2024 12:14 PM EDT): referral GI colon cancer screening 05/21/2023, number given to [facility] to contact, new referral placed 01/19/24 Assessment [...] ECT. Stable with psychiatry Chris Arvizu NP [phone], therapist, and [facility]. We had a three way call with his caser Chitra ([phone]) who will reach out to precriber and his nurse Stephani ([phone]) left message to check if he needs refills on antything and to request if needed. He is in day program at [facility] prior to the pandemic and has [facility] in the home. -Admitted 09/23/23 for [...] anxiety, decrease daytime sedation. -Admitted 03/20/24 to [facility] -Admitted 07/11/24 to [facility] for section 12/self injurious behavior -CT08/09/24 CT/CT head/brain wo IV con IMPRESSION: No evidence of acute intracranial hemorrhage or edematous territorial infarction. Mild underlying microangiopathy and generalized cerebral volume loss. Recent Hospitalizations include [facility] (06/13/24-06/26/24), [facility] (06/29/24 - 08/21/24), [facility] (08/30/24 - 09/05/24), [facility] (09/05/24 - 09/06/24), and [facility] (09/06/24 to - 09/07/24). Appears to [...] ECT. Stable with psychiatry Chris Arvizu NP [phone], therapist, and [facility]. We had a three way call with his caser Chitra ([phone]) who will reach out to precriber and his nurse Stephani ([phone]) left message to check if he needs refills on antything and to request if needed. He is in day program at [facility] prior to the pandemic and has [facility] in the home. Assessment & Plan (10/30/2022 9:05 AM EST): Pt's last hospitalization was 06/2020 to 09/2020, prior to that is was 11/2014- 12/2014 treated with changes in medication and ECT. Stable with psychiatry Chris Arvizu NP [phone], therapist, and [facility]. We had a three way call with his caser Chitra ([phone]) who will reach out to precriber and his nurse Stephani ([phone]) left message to check if he needs refills on antything and to request if needed. He is in day program at [facility] prior to the pandemic and has [facility] in the home. Severe obesity (CMS/HCC) 08/23/1959 Resolved Problems Problem Noted Date Diagnosed Date Resolved Date Hyperlipidemia 11/09/2018 09/10/2022 Encounters Date Type Department Care Team Description 06/30/2025 Refill [facility] [address] [place] [phone] Jess Paris MD Constipation, unspecified constipation [...] (PISQ) 1990 Diabetes: Urine Protein Screening 07/17/2023 07/17/2022, 07/17/2022 Lipid Panel 12/03/2023 12/02/2022, 06/23, 10/24/2020 [...] 1:55 PM EDT) No Kiera Hassan, AmandoD Procedures Procedure Name Priority Date/Time Associated Diagnosis [...] (ABNORMAL) POCT A1C (01/19/2024 2:44 PM EDT) Hemoglobin A1C 6.1(A) 4.0 - 6.0 % QC Media Lot # [id number] Lot# Expiration Date Blood 01/19/2024 2:44 PM EDT Jess Paris MD POINT OF CARE TEST ENTER/E DIT ORDERABLES Final Result * Hepatitis C Antibody with Reflex to HCV, RNA, Quantitative, Real-Time PCR (01/19/2024 12:58 PM EDT) Hepatitis C Antibody Nonreactive Nonreactive [facility] Comment:Antibodies to HCV no t detected; does not exclude early acuteHCV infection. Blood Venous blood specimen / Unknown 01/19/2024 12:58 PM EDT 01/19/2024 4:44 PM EDT us Jess Paris MD LAB BLOOD ORDERABLES Final Result [facility] [address] [place] [phone] * HIV-1/2 Antigen and Antibodies, Fourth Generation, with Reflexes (01/19/2024 12:58 PM EDT) Pathologist [facility] HIV AB/AG Nonreactive Nonreactive [facility] Comment:HIV-1 p24 Ag and/or HIV-1/HIV-2 Ab not detected.A test result that is nonreactive does not exclude thepossibility of exposure to or infection with HIV-1 and/orHIV-2. Nonreactive results in this assay for individualswith prior exposure to HIV-1 and/or HIV-2 may be due toantigen and antibody levels that are below the limit ofdetection of this assay.The [facility] HIV Ag/Ab Combo assay result andsupplemental assay results should be interpreted inconjunction with the patient's clinical presentation,history and other laboratory results. If the results areinconsistent with clinical evidence, additional testing issuggested to confirm the result. Blood Venous blood specimen / Unknown 01/19/2024 12:58 PM EDT 01/19/2024 4:44 PM EDT Jess Paris MD LAB BLOOD ORDERABLES Final Result [facility] [address] [place] [phone] * Lipid Panel, Standard (12/02/2022 11:02 AM EDT) Pathologist [facility] Triglycerides 297 mg/dL [facility] Comment:Desirable Triglyceri de: less than 150 mg/dLBorderline High Triglyceride 150-199 mg/dLHigh Triglyceride: 200-499 mg/dLVery High Triglyceride: greater than or equal to 5OO mg/dL Cholesterol 182 mg/dL [facility] Comment:Desirable Cholestero l: less than 200 mg/dLBorderline High Cholesterol: 200-239 mg/dLHigh Cholesterol: greater than 239 mg/dL LDL Cholesterol Calculated 97 mg/dl [facility] Comment:Desirable LDL: less than 100 mg/dLNear Optimal/Above Optimal LDL: 110- 129 mg/dLBorderline High LDL: 130-159 mg/dLHigh LDL: 160-189 mg/dLVery High LDL: greater than or equal to 190 mg/dL HDL Cholesterol 26 mg/dL [facility] Comment:Desirable HDL: great er than 40 mg/dL Note: This HDL assay may give artificially low results in patients with liver disease. 12/02/2022 11:0 2 AM EDT 12/02/2022 11:02 AM EDT [facility] External Provider LAB BLO OD ORDERABLES Final Result Performing Organization Address City/[facility] Co de Phone Number [facility] [address] [place] [address] [phone] * MICROALBUMIN/CREATININE RATIO, RANDOM URINE (07/17/2022 [...] L ABS Final Result Performing Organization Address City/[facility] Co de Phone Number [facility] from Last 3 Months or Most Recently Relevant to Health Maintenance Insurance MEDICARE [facility] Care Teams Lab Aid Relationship Specialty Start Date End Date [place], MD Jess [address] [place] [address] PCP - General Family Medicine 06/14/13 Kiera Hassan PharmD [address] [place] [address] Pharmacist Internal Medicine 08/03/22 Ruth Silverio OD [address] [place] [address] Optometry 11/16/24 French Martin 06/27/24 Malathi Abraham APRN Psychiatry 11/16/24
--- OUTSIDE RECORDS SUMMARY | 2025-07-18 14:20 | XMS_ITS | Encounter Summary ---
Author Organization [employer] Address 75 [facility] 7t [place] [address] Care Team Providers Care Electronic Installer Name Role Phone Jess Paris MD Primary Care Provider +1- [phone] Kiera Hassan PharmD Unavailable Ruth Silverio OD Unavailable Encounter Details Date Type Department Care Team (Late st Contact Info) Description 2022 Abstract [facility] MEDICINE 230 [place] [address] Jess Paris MD 230 [place], [place] [phone] Social History Tobacco Use Types Packs/Day Years [...] on filedocumented in this encounter Care Teams Electronic Installer Relationship Specialty Start Date End Date Jess Paris MD [address] [place], [place] [phone] PCP - General Family Medicine 06/14/13 Kiera Hassan, AmandoD 230 [place] [address] Pharmacist Internal Medicine 08/03/22 Ruth Silverio OD [address] [place] [address] Optometry 11/16/24 French Martin 06/27/24 Malathi Abraham REFINERY OPERATOR HELPER Psychiatry 11/16/24 documented as of this encounter
--- OUTSIDE RECORDS SUMMARY | 2025-07-18 14:20 | XMS_ITS | Encounter Summary ---
Author Organization [employer] Address 75 [facility] 7t [place] [address] Care Team Providers Care Athletic Monitor Name Role Phone Jess Paris MD Primary Care Provider +1- [phone] Kiera Hassan PharmD Unavailable Ruth Silverio OD Unavailable Encounter Details Date Type Department Care Team (Late st Contact Info) Description 03/24/2022 [facility] [employer] Information Management 230 [place], [place] [phone] Jess Paris MD 230 [place], [place] [phone] Social History Tobacco Use Types Packs/Day Years [...] on filedocumented in this encounter Care Teams Athletic Monitor Relationship Specialty Start Date End Date Jess Paris MD 230 [place], [place] [phone] PCP - General Family Medicine 06/14/13 Kiera Hassan, PharmD [address] [place] [address] [phone] Pharmacist Internal Medicine 08/03/22 Ruth Silverio OD [address] [place] [address] Optometry 11/16/24 French Martin 06/27/24 Malathi Abraham APRN Psychiatry 11/16/24 documented as of this encounter
--- OUTSIDE RECORDS SUMMARY | 2025-07-18 14:20 | XMS_ITS | Encounter Summary ---
Author Organization [employer] Address 75 [facility] 7t [place] [address] Care Team Providers Care Print Binding Worker Name Role Phone Jess Paris MD Primary Care Provider +- [phone] Kiera Hassan PharmD Unavailable Ruth Silverio OD Unavailable [phone] Reason for Referral * Consultation (Routine) - Closed Specialty Diagnoses / Procedures Referred By Contac t Referred To Contact Urology Diagnoses Urinary incontinence, unspecified type Jess Paris MD 230 [place] [address] Phone: tel: fax: [facility] [address] [place], [place] Phone: tel: fax: Referral ID Status Reason Start Date Expiration Date V isits Requested Visits Authorized [id number] Closed Specialty Services Required 05/02/2024 05/02/2025 1 1 Encounter Details Date Type Department Care Team (Late st Contact Info) Description 05/02/2024 Orders Only [facility] 230 [place] [address] Jess Paris MD 230 [place], [place] [phone] Urinary incontinence, unspecified type (Primary Dx) Social [...] documented as of this encounter Care Teams Print Binding Worker Relationship Specialty Start Date End Date Jess Paris MD 230 [place] [address] PCP - General Family Medicine 06/14/13 Kiera Hassan, PharmD 230 [place] [address] Pharmacist Internal Medicine 08/03/22 Ruth Silverio OD [address] [place] [address] Optometry 11/16/24 French Martin 06/27/24 Malathi Abraham APRN Psychiatry 11/16/24 documented as of this encounter
--- OUTSIDE RECORDS SUMMARY | 2025-07-18 14:20 | XMS_ITS | Encounter Summary ---
Author Organization [employer] Address 75 [facility] 7t [place] [address] Care Team Providers Care Innersole Maker Name Role Phone Jess Paris MD Primary Care Provider +1- [phone] Kiera Hassan PharmD Unavailable Ruth Silverio OD Unavailable [phone] Encounter Details Date Type Department Care Team (Late st Contact Info) Description 10/05/2022 Abstract [facility] MEDICINE 230 [place] [address] Jess Paris MD 230 [place], [place] [phone] Social History Tobacco Use Types Packs/Day Years [...] on filedocumented in this encounter Care Teams Innersole Maker Relationship Specialty Start Date End Date Jess Paris MD 230 [place], [place] [phone] PCP - General Family Medicine 06/14/13 Kiera Hassan, AmandoD 230 [place] [address] Pharmacist Internal Medicine 08/03/22 Ruth Silverio OD [address] [place] [address] Optometry 11/16/24 French Martin 06/27/24 Malathi Abraham BLIND INSTALLER Psychiatry 11/16/24 documented as of this encounter
--- OUTSIDE RECORDS SUMMARY | 2025-07-18 14:20 | XMS_ITS | Encounter Summary ---
Author Organization [employer] Address 75 [facility] 7t [place] [address] Care Team Providers Care Manager Project Management Name Role Phone Jess Paris MD Primary Care Provider +1- [phone] Kiera Hassan PharmD Unavailable Ruth Silverio OD Unavailable [phone] Encounter Details Date Type Department Care Team (Late st Contact Info) Description 09/21/2022 Orders Only [facility] MEDICINE 230 [place], [place] [phone] Jess Paris MD 230 [place], [place] [phone] Other specified diabetes mellitus with hyperglycemia, without [...] documented in this encounter Care Teams Manager Project Management Relationship Specialty Start Date End Date Jess Paris MD 230 [place], [place] [phone] PCP - General Family Medicine 06/14/13 Kiera Hassan, AmandoD 230 [place], [place] [phone] Pharmacist Internal Medicine 08/03/22 Ruth Silverio OD [address] [place] [address] [phone] Optometry 11/16/24 French Martin 06/27/24 Malathi Abraham APRN Psychiatry 11/16/24 documented as of this encounter
--- OUTSIDE RECORDS SUMMARY | 2025-07-18 14:20 | XMS_ITS | Encounter Summary ---
Author Organization [employer] Address 75 [facility] 7t [place] [address] Care Team Providers Care Fruit Picker Machine Operator Name Role Phone Jess Paris MD Primary Care Provider +1- [phone] Kiera Hassan PharmD Unavailable Ruth Silverio OD Unavailable [phone] Encounter Details Date Type Department Care Team (Late st Contact Info) Description 11/16/2024 Orders Only [facility] MEDICINE 230 [place], [place] [phone] Jess Paris MD 230 [place], [place] [phone] Social History Tobacco Use Types Packs/Day Years [...] documented as of this encounter Care Teams Fruit Picker Machine Operator Relationship Specialty Start Date End Date Jess Paris MD 230 [place] [address] PCP - General Family Medicine 06/14/13 Kiera Hassan, PharmD 230 [place] [address] Pharmacist Internal Medicine 08/03/22 Ruth Silverio OD [address] [place] [address] Optometry 11/16/24 Elara Caring 06/27/24 Malathi Abraham INTERNATIONAL ORGANIZER Psychiatry 11/16/24 documented as of this encounter
--- OUTSIDE RECORDS SUMMARY | 2025-07-18 14:20 | XMS_ITS | Encounter Summary ---
Author Organization [employer] Address [address] [facility] [address] 7t [place] [address] Care Team Providers Care Sales Representative Marine Supplies Name Role Phone Jess Paris MD Primary Care Provider +- [phone] Kiera Hassan PharmD Unavailable [phone] Ruth Silverio OD Unavailable [phone] Encounter Details Date Type Department Care Team (Late st Contact Info) Description 09/17/2023 Telephone [facility] [address] [place], [place] [phone] Sujey Mancuso LPN Social History Tobacco Use [...] documented as of this encounter Care Teams Sales Representative Marine Supplies Relationship Specialty Start Date End Date Jess Paris MD 230 [place] [address] PCP - General Family Medicine 06/14/13 Kiera Hassan, PharmD 230 [place] [address] Pharmacist Internal Medicine 08/03/22 Ruth Silverio OD [address] [place] [address] Optometry 11/16/24 Elara Caring 06/27/24 Malathi Abraham APRN Psychiatry 11/16/24 documented as of this encounter
== END 2025-07-18 12:24 | disposition home or self-care (01) ==
LOC: HO.HMCFMS 11:24
PROVIDERS: PCP Student in an Organized Health Care Education/Training Program; Visit Provider Student in an Organized Health Care Education/Training Program
DX: E11.9 Type 2 diabetes mellitus without complications (principal); S81.801A Unspecified open wound, right lower leg, initial encounter; E78.5 Hyperlipidemia, unspecified; K59.00 Constipation, unspecified; R19.5 Other fecal abnormalities; T14.8XXA Other injury of unspecified body region, initial encounter; R51.9 Headache, unspecified

== ENCOUNTER → 2025-07-18 11:23 | Outpatient (BNVA) | payer MEDICARE, MEDICAID, SELFPAY | PROVIDERS: PCP Student in an Organized Health Care Education/Training Program; Visit Provider Student in an Organized Health Care Education/Training Program | DX: E11.9 Type 2 diabetes mellitus without complications (principal); E78.5 Hyperlipidemia, unspecified; R51.9 Headache, unspecified; S81.801A Unspecified open wound, right lower leg, initial encounter; K59.00 Constipation, unspecified; R19.5 Other fecal abnormalities | CPT/HCPCS: 99212 ==

== ENCOUNTER 2025-08-06 11:26 | Outpatient (AMB) | payer MEDICARE, MEDICAID, SELFPAY ==
[2025-08-06 11:31] VITALS: BP 114/72; PULSE 100; TEMP 36.4; O2SAT 99; BMI 23.2
--- NOTE | 2025-08-06 11:31 | MHC.OFFWIV ---
Intake Vital Signs 08/06/25 11:31 Height 5 ft 9 in Weight 157 lb BMI 23.2 BP 114/72 Blood Pressure Location Lt brachial Position Sitting Pulse 100 Pulse Source Pulse Oximeter Temp 97.6 F Temp Source Oral Pulse Oximetry (%) 99 Oxygen Delivery Method Room Air Intake Visit Reasons: EP - ? UTI Intake Note: EP complains of urgency and frequency very frequently with very little and or no urination for couple of months. Patient Tobacco Use Status: Never used Tobacco Allergies haloperidol (From Haldol) Allergy (Intermediate, Verified 08/06/25 11:55) Agitated lithium Allergy (Intermediate, Verified 08/06/25 11:55) Agitated oxcarbazepine (From TRILEPTAL) Allergy (Unknown, Verified 08/06/25 11:55) RASH fluphenazine (From Prolixin) Allergy (Verified 08/06/25 11:55) akathisia Do you need a note to return to daycare/school/sports/work: No HPI HPI Comments History of Present Illness Details Patient is a 49-year-old male with a past medical history of schizoaffective disorder, nocturnal enuresis, urinary incontinence, anxiety, type 2 diabetes mellitus, constipation who presents with his photography intern for urinary urgency - The patient has had long-standing difficulty with urination, with photography intern stating it has been a problem for a long time . - The current concern was prompted by the patient's habit of frequently going to the bathroom, stating an urgent need to urinate, but then returning saying it was a false alarm - Bank Note Designer also reports episodes of incontinence, particularly at night time. 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 - Denies any current or prior history of sexual activity Review of Systems Constitutional: Negative for fevers, chills Gastroenterology: Negative for nausea or vomiting Genitourinary: Reports urinary frequency and urinary urgency. Negative for difficulty urinating, dysuria, flank pain, hematuria, penile pain, penile discharge, penile swelling, scrotal swelling, testicular pain Physical Exam Constituational: +Alert and oriented, No acute distress. Pulmonary: No respiratory distress Abdominal: Soft, No suprapubic tenderness to palpation. No Left or Right CVA TTP Musculoskeletal: Moving all extremities spontaneously and against gravity Psychiatric: Cooperative, Appropriate mood & affect, Normal judgment. [facility] Medical History (Updated 08/06/25 @ 14:01 by Tere Kapadia MD) Skin abrasion Hard stool Headache Leg wound, right Elevated alkaline phosphatase level Hyperlipidemia Urinary incontinence Constipation Hypertension Nocturnal enuresis Hypercholesterolemia Seborrhea of face Acute anxiety Schizoaffective disorder Diabetes 1.5, managed as type 2 Social History Household Members: Other Household Members Other:: roommate Housing: Apartment Housing Other:: [facility] supported apartment Do you presently have visiting nurse or other home services: Yes Alcohol intake: former Comment: utilizing a walker Patient Tobacco Use Status: Never used Tobacco Tobacco use type: Cigarette e-Cigarette/Vaping Use: Never Used Second Hand Smoke Exposure: No service: No Sexual orientation: Straight/Heterosexual Cognitive needs: No Hearing needs: No Vision needs: No Physical Exam Vital Signs: Last Vital Signs Temp 97.6 F 08/06/25 11:31 Pulse 100 08/06/25 11:31 BP 114/72 08/06/25 11:31 Pulse Ox 99 08/06/25 11:31 Oxygen Delivery Method Room Air 08/06/25 11:31 BMI result Body Mass Index 23.2 Assessment & Plan Assessment & Plan (1) Nocturnal enuresis: Code(s): N39.44 - Nocturnal enuresis (2) Urinary incontinence: Code(s): R32 - Unspecified urinary incontinence Qualifiers: Urinary Incontinence type: unspecified incontinence Qualified Code(s): R32 - Unspecified urinary incontinence Plan - The patient presents with chronic difficulty urinating and nocturnal enuresis, which has been ongoing for some time and is known to his primary care provider. - Patient's photography intern would like to rule out a UTI - Given the absence of new symptoms such as new symptoms, dysuria, hematuria, fever, or flank pain, a urinary tract infection (UTI) appears less likely - Patient unable to leave a urine sample in office. - A specimen cup and label will be provided to the patient and his photography intern to collect the sample at his snf and return to our office. - Instructed the photography intern that if the sample cannot be returned today, it should be refrigerated. - The patient and photography intern were advised to monitor for new or worsening symptoms, including blood in the urine, pain with urination, flank pain, or fevers. Patient was informed and verbally consented to the use of an ambient scribe for clinic note documentation during the visit. Orders: Orders AMB Urinalysis Automated Today R32 - Unspecified urinary incontinence Urine Culture Today R32 - Unspecified urinary incontinence Coding Level of Care Code Est Pt Level 3 (13829) Diagnoses Nocturnal enuresis N39.44 Urinary incontinence, unspecified type R32 Urinary Incontinence type: unspecified incontinence
== END 2025-08-06 12:33 | disposition home or self-care (01) ==
LOC: HO.HMCWIS 11:26
PROVIDERS: PCP Student in an Organized Health Care Education/Training Program; Visit Provider Family Medicine
DX: N39.44 Nocturnal enuresis (principal); R32 Unspecified urinary incontinence

== ENCOUNTER → 2025-08-06 11:26 | Outpatient (BNVA) | payer MEDICARE, MEDICAID, SELFPAY | PROVIDERS: PCP Student in an Organized Health Care Education/Training Program; Visit Provider Family Medicine | DX: N39.44 Nocturnal enuresis (principal) | CPT/HCPCS: 99212 ==

== ENCOUNTER 2025-08-08 12:21 | Outpatient (REF) | payer MEDICARE, MEDICAID, SELFPAY ==
[2025-08-08 14:30] LABS: Appearance Urine Cloudy; Glucose Urine UA Negative (Negative); PH 5.5 (5.0-9.0); Specific Gravity - Urine 1.010 (1.005-1.025)
--- OUTSIDE RECORDS SUMMARY | 2025-08-08 16:14 | XMS_ITS | Encounter Summary ---
Author Organization [employer] Address 75 [facility] 7t [place] [address] Care Team Providers Care Metal Mixer Name Role Phone Jess Paris MD Primary Care Provider +- [phone] Kiera Hassan PharmD Unavailable Ruth Silverio OD Unavailable [phone] Reason for Referral * Consultation (Routine) - Closed Specialty Diagnoses / Procedures Referred By Contac t Referred To Contact Urology Diagnoses Urinary incontinence, unspecified type Jess Paris MD 230 [place] [address] Phone: tel: fax: [facility] [address] [place], [place] Phone: tel: fax: Referral ID Status Reason Start Date Expiration Date V isits Requested Visits Authorized [id number] Closed Specialty Services Required 05/02/2024 05/02/2025 1 1 Encounter Details Date Type Department Care Team (Late st Contact Info) Description 05/02/2024 Orders Only [facility] 230 [place] [address] Jess Paris MD 230 [place], [place] [phone] Urinary incontinence, unspecified type (Primary Dx) Social [...] documented as of this encounter Care Teams Metal Mixer Relationship Specialty Start Date End Date Jess Paris MD 230 [place] [address] PCP - General Family Medicine 06/14/13 Kiera Hassan, PharmD 230 [place] [address] Pharmacist Internal Medicine 08/03/22 Ruth Silverio OD [address] [place] [address] Optometry 11/16/24 French Martin 06/27/24 Malathi Abraham APRN Psychiatry 11/16/24 documented as of this encounter
--- OUTSIDE RECORDS SUMMARY | 2025-08-08 16:14 | XMS_ITS | Encounter Summary ---
Author Organization [employer] Address [address] [facility] [address] 7t [place] [address] Care Team Providers Care Plate Driller Name Role Phone Jess Paris MD Primary Care Provider +- [phone] Kiera Hassan PharmD Unavailable [phone] Ruth Silverio OD Unavailable [phone] Encounter Details Date Type Department Care Team (Late st Contact Info) Description 09/17/2023 Telephone C [facility] [address] [place], [place] [phone] Sujey Mancuso LPN Social History Tobacco Use [...] documented as of this encounter Care Teams Plate Driller Relationship Specialty Start Date End Date Jess Paris MD 230 [place] [address] PCP - General Family Medicine 06/14/13 Kiera Hassan, PharmD 230 [place] [address] Pharmacist Internal Medicine 08/03/22 Ruth Silverio OD [address] [place] [address] Optometry 11/16/24 Elara Caring 06/27/24 Malathi Abraham APRN Psychiatry 11/16/24 documented as of this encounter
--- OUTSIDE RECORDS SUMMARY | 2025-08-08 16:14 | XMS_ITS | Encounter Summary ---
Author Organization [employer] Address 75 [facility] 7t [place] [address] Care Team Providers Care Wide Piece Goods Inspector Name Role Phone Jess Paris MD Primary Care Provider +1- [phone] Kiera Hassan PharmD Unavailable Ruth Silverio OD Unavailable [phone] Reason for Visit * Reason Onset Date Comments FYI 05/02/2024 Encounter Details Date Type Department Care Team (Late st Contact Info) Description 05/02/2024 Telephone [facility] MEDICINE 230 [place], [place] [phone] Jess Paris MD 230 [place], [place] [phone] FYI Social History Tobacco Use Types Packs/Day [...] r/s till August. Anyquestion contact phone # [phone]. documented in this encounter Plan of Treatment [...] documented as of this encounter Care Teams Wide Piece Goods Inspector Relationship Specialty Start Date End Date Jess Paris MD 230 [place] [address] PCP - General Family Medicine 06/14/13 Kiera Hassan, PharmD 230 [place] [address] Pharmacist Internal Medicine 08/03/22 Ruth Silverio OD [address] [place] [address] Optometry 11/16/24 French Martin 06/27/24 Malathi Abraham APRN Psychiatry 11/16/24 documented as of this encounter
--- OUTSIDE RECORDS SUMMARY | 2025-08-08 16:14 | XMS_ITS | Encounter Summary ---
Author Organization [employer] Address 75 [facility] 7t [place] [address] Care Team Providers Care Election Clerk Name Role Phone Jess Paris MD Primary Care Provider +1- [phone] Kiera Hassan PharmD Unavailable Ruth Silverio OD Unavailable [phone] Encounter Details Date Type Department Care Team (Late st Contact Info) Description 03/24/2022 [facility] [employer] Information Management 230 [place], [place] [phone] Jess Paris MD 230 [place], [place] [phone] Social History Tobacco Use Types Packs/Day Years [...] on filedocumented in this encounter Care Teams Election Clerk Relationship Specialty Start Date End Date Jess Paris MD 230 [place], [place] [phone] PCP - General Family Medicine 06/14/13 Kiera Hassan, PharmD [address] [place] [address] [phone] Pharmacist Internal Medicine 08/03/22 Ruth Silverio OD [address] [place] [address] Optometry 11/16/24 French Martin 06/27/24 Malathi Abraham APRN Psychiatry 11/16/24 documented as of this encounter
--- OUTSIDE RECORDS SUMMARY | 2025-08-08 16:14 | XMS_ITS | Encounter Summary ---
Author Organization [employer] Address 75 [facility] 7t [place] [address] Care Team Providers Care Gas Prover Name Role Phone Jess Paris MD Primary Care Provider +1- [phone] Kiera Hassan PharmD Unavailable Ruth Silverio OD Unavailable Encounter Details Date Type Department Care Team (Late st Contact Info) Description 10/05/2022 Abstract [facility] MEDICINE 230 [place] [address] Jess Paris MD 230 [place], [place] [phone] Social History Tobacco Use Types Packs/Day Years [...] on filedocumented in this encounter Care Teams Gas Prover Relationship Specialty Start Date End Date Jess Paris MD 230 [place], [place] [phone] PCP - General Family Medicine 06/14/13 Kiera Hassan, AmandoD 230 [place] [address] Pharmacist Internal Medicine 08/03/22 Ruth Silverio OD [address] [place] [address] Optometry 11/16/24 French Martin 06/27/24 Malathi Abraham CIGAR PACKER AND PICKER Psychiatry 11/16/24 documented as of this encounter
--- OUTSIDE RECORDS SUMMARY | 2025-08-08 16:14 | XMS_ITS | Encounter Summary ---
Author Organization [employer] Address 75 [facility] 7t [place] [address] Care Team Providers Care Field Reviewer Name Role Phone Jess Paris MD Primary Care Provider +1- [phone] Kiera Hassan PharmD Unavailable Ruth Silverio OD Unavailable [phone] Encounter Details Date Type Department Care Team (Late st Contact Info) Description 2022 Abstract [facility] MEDICINE 230 [place] [address] Jess Paris MD 230 [place], [place] [phone] Social History Tobacco Use Types Packs/Day Years [...] on filedocumented in this encounter Care Teams Field Reviewer Relationship Specialty Start Date End Date Jess Paris MD 230 [place], [place] [phone] PCP - General Family Medicine 06/14/13 Kiera Hassan, AmandoD 230 [place] [address] Pharmacist Internal Medicine 08/03/22 Ruth Silverio OD [address] [place] [address] Optometry 11/16/24 French Martin 06/27/24 Malathi Abraham DEWAXER Psychiatry 11/16/24 documented as of this encounter
--- OUTSIDE RECORDS SUMMARY | 2025-08-08 16:14 | XMS_ITS | Encounter Summary ---
Author Organization [employer] Address 75 [facility] 7t [place] [address] Care Team Providers Care Advanced Practice Rn Name Role Phone Jess Paris MD Primary Care Provider +1- [phone] Kiera Hassan PharmD Unavailable Ruth Silverio OD Unavailable [phone] Encounter Details Date Type Department Care Team (Late st Contact Info) Description 09/21/2022 Orders Only [facility] MEDICINE 230 [place], [place] [phone] Jess Paris MD 230 [place], [place] [phone] Other specified diabetes mellitus with hyperglycemia, without [...] Primary documented in this encounter Care Teams Advanced Practice Rn Relationship Specialty Start Date End Date Jess Paris MD 230 [place], [place] [phone] PCP - General Family Medicine 06/14/13 Kiera Hassan, AmandoD 230 [place], [place] [phone] Pharmacist Internal Medicine 08/03/22 Ruth Silverio OD [address] [place] [address] [phone] Optometry 11/16/24 rFench Martin 06/27/24 Malathi Abraham APRN Psychiatry 11/16/24 documented as of this encounter
--- OUTSIDE RECORDS SUMMARY | 2025-08-08 16:14 | XMS_ITS | Encounter Summary ---
Author Organization [employer] Address 75 [facility] 7t [place] [address] Care Team Providers Care Community Organization Director Name Role Phone Jess Paris MD Primary Care Provider +1- [phone] Kiera Hassan PharmD Unavailable Ruth Silverio OD Unavailable [phone] Encounter Details Date Type Department Care Team (Late st Contact Info) Description 11/16/2024 Orders Only [facility] MEDICINE 230 [place], [place] [phone] Jess Paris MD 230 [place], [place] [phone] Social History Tobacco Use Types Packs/Day Years [...] documented as of this encounter Care Teams Community Organization Director Relationship Specialty Start Date End Date Jess Paris MD 230 [place] [address] PCP - General Family Medicine 06/14/13 Kiera Hassan, PharmD 230 [place] [address] Pharmacist Internal Medicine 08/03/22 Ruth Silverio OD [address] [place] [address] Optometry 11/16/24 Elara Caring 06/27/24 Malathi Abraham FEATHERER Psychiatry 11/16/24 documented as of this encounter
--- OUTSIDE RECORDS SUMMARY | 2025-08-08 16:15 | XMS_ITS | Clinical Summary ---
Author Organization [employer] Address [address] [place] [address] Care Team Providers Care Certified Art Therapist Name Role Phone Jess Paris MD Primary Care Provider [phone] Kiera Hassan PharmD Unavailable [phone] Ruth Silverio OD Unavailable [phone] Allergies Active Allergy Reactions Criticality Noted Date Comments Fluphenazine 03/09/2012 Other reaction(s): akathesia , akathesia Haloperidol 03/09/2012 Other reaction(s): akathesia Pike 12/29/2017 Oxcarbazepine 12/15/2018 Medications * This document contains information received from the source organization and may not represent a complete record from that organization. polyethylene glycol, PEG, 3350 (MiraLax) 17 GM/SCOOP powderIndications: Constipation, unspecified constipation type 17 grams in 8-12 oz fluid like water at bedtime prn constipation 527 g 2 10/31/19 23 Active selenium sulfide (Selsun) 2.5 [...] hyperglycemia, without long-term current use of insulin ([facility]) INJECT ONE PEN (3 MG) SUBCUTANEOUSLY ONCE WEEKLY 4 each 6 01/19/20 24 Active glucose blood (FREESTYLE LITE) test stripIndications:T ype 2 diabetes mellitus with hyperglycemia, without long-term current use of insulin ([facility]) USE TO CHECK BLOOD SUGAR TWICE A DAY 100 each 11 03/14/20 24 Active triamcinolone (Kenalog) 0.1 % cream Apply topically Once per day. To face 02/23/20 24 Active gabapentin (Neurontin) 800 MG tablet Take 1 tablet by mouth 3 times daily. 06/08/20 24 Active mirtazapine (Remeron) 45 MG tablet Take 1 tablet by mouth at bedtime. 06/08/20 24 Active chlorproMAZINE (Thorazine) 25 MG tablet Take 2 tablets by mouth 2 times daily. 08/21/20 24 Active escitalopram (Lexapro) 20 MG tablet Take 1 tablet by mouth Once per day. 08/21/20 Active LORazepam (Ativan) 2 MG tablet Take 1 tablet by mouth 3 times daily. 08/21/20 Active OLANZapine zydis (ZyPREXA) 10 MG disintegrating tablet Take 1 tablet by mouth 2 times daily. 08/21/20 24 Active tamsulosin (Flomax) 0.4 MG 24 hr capsule TAKE 1 CAPSULES ONCE A DAY FOR BLADDER RETENTION 30 capsule 07/02/20 25 Active sennosides (Senna-Time) 8.6 MG tabletIndications: Constipation, unspecified constipation type TAKE 2 TABLETS BY MOUTH TWICE A DAY FOR CONSTIPATION 120 tablet 07/02/20 25 Active docusate sodium (Colace) 100 MG capsule TAKE 1 CAPSULE BY MOUTH TWICE A DAY FOR CONSTIPATION 60 capsule 07/02/20 25 Active metoprolol tartrate (Lopressor) 25 MG tablet TAKE 1 TABLET BY MOUTH TWICE DAILY 60 tablet 07/02/20 25 Active Active Problems Problem Noted Date Diagnosed [...] 09/18 Overview (01/19/2024): -psychiatry Haile Gutierrez NP [phone] -therapist, Teena [phone] and [facility]. -Chitra is worker on [facility] outreach team [phone] -day program at [facility] prior to the pandemic, currently ina -visiting RN : Eleuterio White [phone] with [facility] since 02/2018:director of casework department:Isabel Harry [phone], , Assessment & Plan (01/19/2024 12:13 PM EDT): -psychiatry Haile Gutierrez NP [phone] -therapist, Teena [phone] and [facility]. -Chitra is worker on [facility] outreach team [phone] -day program at [facility] prior to the pandemic, currently ina -bucky RN : Eleuterio White [phone] with CARIN Clancy [facility] Care [facility] since 02/2018:director of casework department:Isabel Harry [phone], , Other specified health status 05/21/2023 Overview (06/14/2024): -next comprehensive annual evaluation due after 05/24/2024 -eye care facilitated by [facility] -dental home is in [place], last seen on 11/2022 -health care proxy Assessment & Plan (05/21/2023 11:26 AM EDT): -next physical exam due after 06/15/2023 -eye care facilitated by [facility] -dental home is in [place], last seen on 11/2022 -Referral to GI for colon cancer screening 05/21/2023 Left foot pain 05/21/2023 Overview (05/21/2023): -Referral done to PT 05/21/2023 -High risk for falls due to medication side effects. We will see if he can get PT at home, will [facility] Assessment & Plan (05/21/2023 12:00 PM EDT): -Referral done to PT 05/21/2023 -High risk for falls due to medication side effect. We will see if he can get PT at home, will call his [facility] for PT assistance Bilateral impacted cerumen [...] recommended he use selenium sulfide shampoo and [place] scalp oil, as well as Ketoconazole [...] recommended he use selenium sulfide shampoo and [place] scalp oil, as well as Ketoconazole [...] colon cancer screening 05/21/2023, number given to [facility] to contact, new referral placed 01/19/24 Assessment & Plan (01/19/2024 12:14 PM EDT): referral GI colon cancer screening 05/21/2023, number given to [facility] to contact, new referral placed 01/19/24 [...] BID -glipizide discontinued on 04/16/22 Chronic schizophrenia ([facility]) 08/23/1959 Overview (09/27/2024): Pt's hospitalizations include 06/2020 to 09/2020 and 09/23/2023. prior to that is was 11/2014-12/2014 treated with changes in medication and ECT. Stable with psychiatry Chris Arvizu, NGUYỄN [phone], therapist, and [facility]. We had a three way call with his director of casework department Chitra ([phone]) who will reach out to precriber and his nurse Stephani ([phone]) left message to check if he needs refills on antything and to request if needed. He is in day program at [facility] prior to the pandemic and has [facility] [facility] in the home. -Admitted 09/23/23 for [...] anxiety, decrease daytime sedation. -Admitted 03/20/24 to [facility] -Admitted 07/11/24 to [facility] for section 12/self injurious behavior -CT08/09/24 CT/CT head/brain wo IV con IMPRESSION: No evidence of acute intracranial hemorrhage or edematous territorial infarction. Mild underlying microangiopathy and generalized cerebral volume loss. Recent Hospitalizations include [facility] (06/13/24-06/26/24), [facility] (06/29/24 - 08/21/24), [facility] (08/30/24 - 09/05/24), [facility] (09/05/24 - 09/06/24), and [facility] (09/06/24 to - 09/07/24). Appears to [...] ECT. Stable with psychiatry Chris Arvizu NP [phone], therapist, and [facility]. We had a three way call with his director of casework department Chitra ([phone]) who will reach out to precriber and his nurse Stephani ([phone]) left message to check if he needs refills on antything and to request if needed. He is in day program at [facility] prior to the pandemic and has [facility] in the home. Assessment & Plan (10/30/2022 9:05 AM EST): Pt's last hospitalization was 06/2020 to 09/2020, prior to that is was 11/2014- 12/2014 treated with changes in medication and ECT. Stable with psychiatry Chris Arvizu NP [phone], therapist, and [facility]. We had a three way call with his director of casework department Chitra ([phone]) who will reach out to precriber and his nurse Stephani ([phone]) left message to check if he needs refills on antything and to request if needed. He is in day program at [facility] prior to the pandemic and has [facility] in the home. Severe obesity (CMS/[facility]) 08/23/1959 Resolved Problems Problem Noted Date Diagnosed Date Resolved Date Hyperlipidemia 11/09/2018 09/10/2022 Encounters Date Type Department Care Team Description 06/30/2025 Refill [facility] [address] [place] [address] Jess Paris MD Constipation, unspecified constipation type [...] hyperglycemia, without long-term current use of insulin ([facility]) HEPATITIS C AB W/REFL TO HCV RNA, [...] POCT A1C (01/19/2024 2:44 PM EDT) Pathologist [facility] Hemoglobin A1C 6.1(A) 4.0 - 6.0 % QC Media Lot # [id number] Lot# Expiration Date Blood 01/19/2024 2:44 PM EDT Jess Paris MD POINT OF CARE TEST ENTER/E DIT ORDERABLES Final Result * Hepatitis C Antibody with Reflex to HCV, RNA, Quantitative, Real-Time PCR (01/19/2024 12:58 PM EDT) Pathologist [facility] Hepatitis C Antibody Nonreactive Nonreactive [facility] Comment:Antibodies to HCV no t detected; does not exclude early acuteHCV infection. Blood Venous blood specimen / Unknown 01/19/2024 12:58 PM EDT 01/19/2024 4:44 PM EDT us Jess Paris MD LAB BLOOD ORDERABLES Final Result [facility] [address] [place] [address] [phone] * HIV-1/2 Antigen and Antibodies, Fourth Generation, with Reflexes (01/19/2024 12:58 PM EDT) HIV AB/AG Nonreactive Nonreactive [facility] Comment:HIV-1 p24 Ag and/or HIV-1/HIV-2 Ab not detected.A test result that is nonreactive does not exclude thepossibility of exposure to or infection with HIV-1 and/orHIV-2. Nonreactive results in this assay for individualswith prior exposure to HIV-1 and/or HIV-2 may be due toantigen and antibody levels that are below the limit ofdetection of this assay.The [employer] HIV Ag/Ab Combo assay result andsupplemental assay results should be interpreted inconjunction with the patient's clinical presentation,history and other laboratory results. If the results areinconsistent with clinical evidence, additional testing issuggested to confirm the result. Blood Venous blood specimen / Unknown 01/19/2024 12:58 PM EDT 01/19/2024 4:44 PM EDT us Jess Paris MD LAB BLOOD ORDERABLES Final Result [facility] [address] [place], [place] [phone] [phone] * Lipid Panel, Standard (12/02/2022 11:02 AM EDT) Pathologist [facility] Triglycerides 297 mg/dL [facility] Comment:Desirable Triglyceri de: less than 150 mg/dLBorderline High Triglyceride 150-199 mg/dLHigh Triglyceride: 200-499 mg/dLVery High Triglyceride: greater than or equal to 5OO mg/dL Cholesterol 182 mg/dL [facility] Comment:Desirable Cholestero l: less than 200 mg/dLBorderline High Cholesterol: 200-239 mg/dLHigh Cholesterol: greater than 239 mg/dL LDL Cholesterol Calculated 97 mg/dl [facility] Comment:Desirable LDL: less than 100 mg/dLNear Optimal/Above Optimal LDL: 110- 129 mg/dLBorderline High LDL: 130-159 mg/dLHigh LDL: 160-189 mg/dLVery High LDL: greater than or equal to 190 mg/dL HDL Cholesterol 26 mg/dL [facility] Comment:Desirable HDL: great er than 40 mg/dL Note: This HDL assay may give artificially low results in patients with liver disease. 12/02/2022 11:0 2 AM EDT 12/02/2022 11:02 AM EDT [facility] External Provider LAB BLO OD ORDERABLES Final Result Performing Organization Address [facility] Co de Phone Number [facility] [address] [place] [address] [phone] * MICROALBUMIN/CREATININE RATIO, RANDOM URINE (07/17/2022 [...] L ABS Final Result Performing Organization Address [facility] de Phone Number [facility] from Last 3 Months or Most Recently Relevant to Health Maintenance Insurance MEDICARE [facility] Care Teams Certified Art Therapist Relationship Specialty Start Date End Date [place], MD Jess [address] [place] [address] PCP - General Family Medicine 06/14/13 Kiera Hassan, AmandoD [address] [place] [address] Pharmacist Internal Medicine 08/03/22 Ruth Silverio OD [address] [place] [phone] Optometry [facility] Malathi Abraham APRN Psychiatry 11/16/24
== END 2025-08-08 12:22 | disposition home or self-care (01) ==
LOC: HO.HKASLDS 12:21
PROVIDERS: PCP Student in an Organized Health Care Education/Training Program; Visit Provider Student in an Organized Health Care Education/Training Program
DX: R32 Unspecified urinary incontinence (principal)
CPT/HCPCS: 81003; 87086